=== PATIENT | male | born 1935 | race Caucasian/White ===

== ENCOUNTER → 2024-04-25 | Outpatient (CLI) | payer MEDICARE, BC, SELFPAY ==
[2024-04-25 15:20] LABS: Absolute Lymphocyte Count 0.82 X10^3/uL (0.83-4.51); Absolute Neutrophil Count 3.5 X10^3/uL (2.0-7.7); Basophil# 0.06 X10^3/uL; Basophil% 1.2 % (0-1); Eosinophil# 0.23 X10^3/uL; Eosinophils% 4.5 % (0-5); Hematocrit 45.6 % (40-54); Hemoglobin 14.4 g/dL (13.0-16.5); Lymphocyte # 0.82 X10^3/ul (0.83-4.51); Lymphocyte % 16.1 % (19-41); Mean Corp Hgb Conc 31.6 g/dL (32-36); Mean Corpuscular Hgb 29.9 pg (27.0-32.0); Mean Corpuscular Volume 94.8 fL (80-94); Mean Platelet Vol. 10.5 fl (6.2-12.0); Monocyte# 0.41 X10^3/uL; Monocyte% 8.1 % (0-10); NRBC Flagged by Analyzer 0 % (0-5); Neutrophil # 3.54 X10^3/uL (2.7-7.7); Neutrophil % 69.5 % (47-70); Platelet Count 161 K/mm3 (150-450); RBC Distribution Width CV 13.3 % (11.6-14.6); RBC Distribution Width SD 46.3 fl (35.1-43.9); Red Blood Count 4.81 M/mm3 (4.6-6.2); White Blood Count 5.1 K/mm3 (4.4-11.0)
[2024-04-25 15:54] LABS: Vitamin B12 327 pg/mL (211-911)
[2024-04-25 16:12] LABS: AST(SGOT) 21 U/L (15-37); Alanine Aminotransfer ALT/SGPT 20 U/L (16-61); Albumin, Serum 3.5 g/dL (3.2-5.0); Alkaline Phosphatase 108 U/L (45-117); Anion Gap 5 (5-15); BUN 19 mg/dL (7-18); BUN/Creat Ratio 15.1 RATIO (10-20); Calcium,Total 9.7 mg/dL (8.5-10.1); Chloride 105 mmol/L (98-107); Cholesterol 216 mg/dL (200); Creatinine, Serum 1.26 mg/dL (0.70-1.30); EST Glomerular Filtration Rate 58 mL/min (>60); Est Glom Filt Rate - Afr Amer 70 mL/min (>60); Globulin 3.5 g/dL (2.2-4.2); Glucose 117 mg/dL (74-106); High Density Lipoprotein 74 mg/dL; Sodium Level 137 mmol/L (136-145); T4 Free Direct 0.64 ng/dL (0.76-1.46); Triglycerides 196 mg/dL; Very Low Density Lipoprotein 39 mg/dL (5-40)
== END | disposition home or self-care (01) ==
PROVIDERS: PCP Family Medicine; Visit Provider Family Medicine
DX: R41.3 Other amnesia (principal); E78.5 Hyperlipidemia, unspecified; E03.9 Hypothyroidism, unspecified; R73.09 Other abnormal glucose
CPT/HCPCS: 36415; 80053; 80061; 82607; 83036; 84439; 84443; 85025

== ENCOUNTER → 2024-05-01 | Outpatient (CLI) | payer MEDICARE, BC, SELFPAY ==
--- NOTE | 2024-05-01 12:01 | US_ITS ---
STUDY: THYROID ULTRASOUND REASON FOR EXAM: Male, 88 years old. Thyroid nodule. TECHNIQUE: Ultrasound evaluation of the thyroid was performed with real-time and static catherine-scale imaging. COMPARISON: None. FINDINGS: RIGHT LOBE: The right lobe of the thyroid gland measures 3.5 cm x 1.1 cm x 1.7 cm. There is a heterogeneous echotexture. There are no demonstrated solid, cystic or complex lesions. LEFT LOBE: The left lobe of the thyroid gland measures 3.2 cm x 1.5 cm x 1.6 cm. There is a heterogeneous echotexture. There is a 9 mm x 9 mm x 7 mm hypoechoic solid nodule in the midportion of the left lobe. Follow-up recommended in 12 months. ISTHMUS: The isthmus measures 2 mm. The regional lymph nodes are normal. US/Thyroid IMPRESSION: 9 mm x 9 mm x 7 mm hypoechoic solid nodule in the midportion of the left lobe of the thyroid. 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 12 month follow-up is recommended. Electronically Signed: Serafin Xiong MD at 11:47 EDT ,
== END | disposition home or self-care (01) ==
PROVIDERS: PCP Family Medicine; Referring Provider Family Medicine; Visit Provider Family Medicine
DX: E04.1 Nontoxic single thyroid nodule (principal)
CPT/HCPCS: 76536

== ENCOUNTER → 2024-05-29 | Outpatient (CLI) | payer MEDICARE, BC, SELFPAY ==
[2024-05-29 15:02] LABS: Absolute Lymphocyte Count 0.87 X10^3/uL (0.83-4.51); Absolute Neutrophil Count 3.7 X10^3/uL (2.0-7.7); Basophil# 0.04 X10^3/uL; Basophil% 0.7 % (0-1); Eosinophil# 0.15 X10^3/uL; Eosinophils% 2.8 % (0-5); Hematocrit 46.8 % (40-54); Hemoglobin 14.8 g/dL (13.0-16.5); Lymphocyte # 0.87 X10^3/ul (0.83-4.51); Lymphocyte % 16.3 % (19-41); Mean Corp Hgb Conc 31.6 g/dL (32-36); Mean Corpuscular Hgb 29.6 pg (27.0-32.0); Mean Corpuscular Volume 93.6 fL (80-94); Mean Platelet Vol. 10.3 fl (6.2-12.0); Monocyte# 0.52 X10^3/uL; Monocyte% 9.7 % (0-10); NRBC Flagged by Analyzer 0 % (0-5); Neutrophil # 3.74 X10^3/uL (2.7-7.7); Neutrophil % 69.9 % (47-70); Platelet Count 141 K/mm3 (150-450); RBC Distribution Width CV 13.2 % (11.6-14.6); RBC Distribution Width SD 45.2 fl (35.1-43.9); White Blood Count 5.4 K/mm3 (4.4-11.0)
[2024-05-29 16:06] LABS: ALB/GLOB Ratio 1.1 RATIO (0.9-2.4); AST(SGOT) 22 U/L (15-37); Alanine Aminotransfer ALT/SGPT 20 U/L (16-61); Albumin, Serum 3.9 g/dL (3.2-5.0); Alkaline Phosphatase 117 U/L (45-117); Anion Gap 4 (5-15); BUN 22 mg/dL (7-18); BUN/Creat Ratio 16.3 RATIO (10-20); Calcium,Total 9.6 mg/dL (8.5-10.1); Chloride 105 mmol/L (98-107); Cholesterol 162 mg/dL (200); Creatinine, Serum 1.35 mg/dL (0.70-1.30); EST Glomerular Filtration Rate 53 mL/min (>60); Est Glom Filt Rate - Afr Amer 64 mL/min (>60); Globulin 3.5 g/dL (2.2-4.2); Glucose 113 mg/dL (74-106); High Density Lipoprotein 81 mg/dL; Potassium 4.2 mmol/L (3.5-5.1); Protein, Total 7.4 g/dL (6.4-8.2); Sodium Level 138 mmol/L (136-145); T4 Free Direct 1.83 ng/dL (0.76-1.46); Thyroid Stim Hormone (TSH) 0.082 uIU/mL (0.358-3.740); Triglycerides 68 mg/dL; Very Low Density Lipoprotein 14 mg/dL (5-40)
[2024-05-29 17:38] LABS: Vitamin B12 271 pg/mL (211-911)
== END | disposition home or self-care (01) ==
LOC: MFPLAB 11:43
PROVIDERS: PCP Family Medicine; Visit Provider Family Medicine
DX: E78.5 Hyperlipidemia, unspecified (principal); R41.3 Other amnesia; E03.9 Hypothyroidism, unspecified
CPT/HCPCS: 36415; 80053; 80061; 82607; 84439; 84443; 85025

== ENCOUNTER → 2024-07-03 | Outpatient (CLI) | payer MEDICARE, BC, SELFPAY ==
[2024-07-03 15:45] LABS: T4 Free Direct 2.48 ng/dL (0.76-1.46)
== END | disposition home or self-care (01) ==
LOC: MFPLAB 12:02
PROVIDERS: PCP Family Medicine; Referring Provider Family Medicine; Visit Provider Family Medicine
DX: E03.9 Hypothyroidism, unspecified (principal)
CPT/HCPCS: 36415; 84439

== ENCOUNTER → 2024-07-22 | Outpatient (CLI) | payer MEDICARE, BC, SELFPAY ==
[2024-07-22 15:11] LABS: T4 Free Direct 1.23 ng/dL (0.76-1.46)
== END | disposition home or self-care (01) ==
LOC: MFPLAB 11:22
PROVIDERS: PCP Family Medicine; Referring Provider Family Medicine; Visit Provider Family Medicine
DX: E03.9 Hypothyroidism, unspecified (principal)
CPT/HCPCS: 36415; 84439

== ENCOUNTER 2024-09-16 12:22 | Observation (INO) | payer MEDICARE, BC, SELFPAY ==
[2024-09-16] VITALS (8 sets, daily range): BP systolic 140–155; BP diastolic 68–95; PULSE 60–93; RESP 14–19; TEMP 36.5–37; O2SAT 97–99; BMI 25.0; BMI 23.4
--- NOTE | 2024-09-16 12:38 | CT_ITS ---
PROCEDURE: COMPUTED TOMOGRAPHY OF THE LUMBAR SPINE REASON FOR EXAM: PATIENT FELL. BACK PAIN TECHNIQUE: Contiguous axial scans of 2.5 mm slice thicknesses. Sagittal and coronal reconstruction images were obtained. One or more dose reduction techniques were used (e.g., automated exposure control, adjustment of mA and/or kv according to patient size, use of iterative reconstruction technique). CONTRAST: NOT GIVEN. COMPARISON: None. FINDINGS: Vertebrae: Normal lumbar vertebral body heights. No evidence of fracture. No spondylolysis. Multilevel spondylosis. Discs: Severe disc space narrowing at L5-S1. Mild disc space narrowing at L4-L5. Alignment: No spondylolysis or spondylolisthesis. No scoliosis. Stenosis: Moderate to severe central canal narrowing at L2-L3 and L3-L4. Mild central canal narrowing at L4-L5. Foramina: Severe foraminal narrowing bilaterally at L2-L3 and L3-L4. Facets: Multilevel facet arthropathy, moderate to severe. Sacroiliac joints: Maintained. Soft tissues: Paravertebral soft tissues are unremarkable. Vascular: Severe atherosclerotic calcific disease. Mild fusiform dilatation of the lower abdominal aorta measuring 3.[address]/Spine Lumbar without Contrast IMPRESSION: 1. Mild to severe central canal narrowing at L2 through L5. 2. Severe foraminal narrowing, L2 through L4. 3. Multilevel spondylosis. 4. Mild fusiform dilatation, lower abdominal aorta. 5. No acute osseous abnormalities. Reading Location: [place] [id number]
--- NOTE | 2024-09-16 12:38 | CT_ITS ---
TECHNIQUE: Contiguous axial scans of 3.75 mm slice thicknesses. Sagittal and coronal reconstruction images were obtained. One or more dose reduction techniques were used (e.g., automated exposure control, adjustment of mA and/or kv according to patient size, use of iterative reconstruction technique). FINDINGS: Cerebrum: No intraparenchymal hemorrhage. No abnormal areas of encephalomalacia. No mass effect or midline shift. Central white matter and subcortical diffuse hypoattenuation. Ventricles and cisterns: Appropriate size for patient's age. Age-appropriate senescent change. Extra-axial fluid: Unremarkable. Posterior fossa: Unremarkable cerebellum. No abnormalities involving the brainstem. Paranasal sinuses: Normal. Vasculature: Atherosclerotic calcific disease involving the carotids and vertebrobasilar arteries. Mastoid air cells: Normal. Calvarium: Unremarkable. Soft tissues: Unremarkable. CT/Brain/Head without Contrast IMPRESSION: 1. 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 2. No acute intra cerebral hemorrhage or infarcts. 3. Age-appropriate senescent change. [facility]
--- NOTE | 2024-09-16 12:38 | CT_ITS ---
PROCEDURE: CT CERVICAL SPINE WITHOUT CONTRAST REASON FOR EXAM: PATIENT FELL YESTERDAY. LEFT PUPIL GREATER THAN RIGHT TECHNIQUE: Contiguous axial scans of 1.25 mm slice thicknesses. Sagittal and coronal reconstruction images were obtained. One or more dose reduction techniques were used (e.g., automated exposure control, adjustment of mA and/or kv according to patient size, use of iterative reconstruction technique). COMPARISON: No relevant prior. FINDINGS: Alignment: Normal C1-C2: Normal alignment. Degenerative arthritic changes. Vertebrae: Vertebral bodies normal in height. Multilevel spondylosis. Discs: Multilevel degenerative disc disease, most severe at C5 through T2. Foramina: No foraminal narrowing. Facets: Multilevel facet arthropathy of the C3 through C5 levels. Spinal stenosis: Not present. Posterior elements: Intact. Soft Tissues: Unremarkable Other Atherosclerotic calcific disease of the aorta. CT/Spine Cervical without Contras IMPRESSION: 1. No acute osseous findings involving the cervical spine. 2. Multilevel degenerative disc disease and spondylosis. Reading Location: [place] [address]
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
--- NOTE | 2024-09-16 12:50 | EKG12_ITS ---
Test Reason : PALP Blood Pressure : */* mmHG Vent. Rate : 84 BPM Atrial Rate : 84 BPM P-R Int : 166 ms QRS Dur : 78 ms QT Int : 370 ms P-R-T Axes : 70 12 74 degrees QTcB Int : 437 ms Normal sinus rhythm Normal ECG Confirmed by Roel Art ([id number]), publications editor TARA CARDONA ([id number]) on 09/17/2024 8:23:13 AM Referred By: Confirmed By: Roel Art
--- NOTE | 2024-09-16 13:05 | RAD_ITS ---
PROCEDURE: CHEST 1 VIEW (PORTABLE) REASON FOR EXAM: Patient fell. TECHNIQUE: Frontal view of the chest. COMPARISON: Yesterday FINDINGS: Lungs are clear of pneumonia and congestion. Old healed granulomatous changes. No pleural effusions, thickening, or pneumothorax. Heart and mediastinum are normal. Atherosclerotic and tortuous aorta. No hilar masses. Bones and soft tissues are unremarkable. RAD/Chest 1 View (Portable) IMPRESSION: No active cardiopulmonary disease. Reading Location: [place] [address]
[2024-09-16 13:24] LABS: Absolute Lymphocyte Count 0.58 X10^3/uL (0.83-4.51); Absolute Neutrophil Count 3.8 X10^3/uL (2.0-7.7); Basophil# 0.02 X10^3/uL; Basophil% 0.4 % (0-1); Eosinophil# 0.06 X10^3/uL; Eosinophils% 1.2 % (0-5); Hematocrit 46.8 % (40-54); Hemoglobin 15.4 g/dL (13.0-16.5); Lymphocyte # 0.58 X10^3/ul (0.83-4.51); Mean Corp Hgb Conc 32.9 g/dL (32-36); Mean Corpuscular Hgb 30.4 pg (27.0-32.0); Mean Corpuscular Volume 92.3 fL (80-94); Mean Platelet Vol. 9.8 fl (6.2-12.0); Monocyte% 8.2 % (0-10); NRBC Flagged by Analyzer 0 % (0-5); Neutrophil # 3.76 X10^3/uL (2.7-7.7); Neutrophil % 77.6 % (47-70); POSITIVE DIFFERENTIAL YES; Platelet Count 155 K/mm3 (150-450); RBC Distribution Width CV 13.2 % (11.6-14.6); RBC Distribution Width SD 45.1 fl (35.1-43.9); Red Blood Count 5.07 M/mm3 (4.6-6.2); White Blood Count 4.9 K/mm3 (4.4-11.0)
[2024-09-16 13:37] LABS: ALB/GLOB Ratio 1.3 RATIO (0.9-2.4); AST(SGOT) 27 U/L (<=37); Alanine Aminotransfer ALT/SGPT 12 U/L (<=46); Albumin, Serum 4.1 g/dL (3.4-4.8); Alkaline Phosphatase 115 U/L (40-129); Anion Gap 10 (5-15); BUN 16 mg/dL (4-19); BUN/Creat Ratio 12.2 RATIO (10-20); Calcium 10.2 mg/dL (7.6-11.0); Carbon Dioxide 27.4 mmol/L (22.0-29.0); Chloride 99 mmol/L (96-108); Creatinine, Serum 1.3 mg/dL (0.8-1.3); EST Glomerular Filtration Rate 54 (>60); Globulin 3.1 g/dL (2.2-4.2); Glucose 138 mg/dL (70-99); Potassium 4.4 mmol/L (3.3-5.1); Protein, Total 7.1 g/dL (5.9-8.4); Sodium Level 136 mmol/L (133-145); Total Bilirubin 0.79 mg/dL (0.00-1.30)
[2024-09-16 14:00] LABS: Bacteria 0 SEEN /hpf (None Seen); Mucous, Urine 0 SEEN /hpf (<or=2+); Squamous Epithelial Cells - UA 0 SEEN /hpf (0-5); White Blood Cells 0 SEEN /hpf (0-5)
[2024-09-16 14:07] LABS: Color, Urine Yellow (Yellow); Glucose, Dipstick Normal (Normal); Ketone-Dipstick 5 mg/dl (Negative); Leukocyte Esterase-Dipstick Negative /ul (Negative); Nitrite-Dipstick Negative (Negative); Occult Blood-Urine Negative /ul (Negative); Protein-Dipstick 15 mg/dl (Negative); Urine Bilirubin Dipstick Negative (Negative); Urine Clarity Clear (Clear); Urine Urobilinogen Normal (Normal); Urine pH 6.5 (5.0 - 8.0)
[2024-09-16 14:10] LABS: Troponin T High Sensitivity 62 ng/L (<=22)
--- NOTE | 2024-09-16 14:12 | ED.RN ---
Dr Capone notified of critical troponin level.
[2024-09-16 14:13] LABS: Red Blood Cells-Urine 0 SEEN /hpf (0-5)
[2024-09-16 16:35] LABS: Troponin T High Sensitivity 57 ng/L (<=22)
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
--- NOTE | 2024-09-16 19:12 | HP.PCM.HOS_ITS ---
HPI - General General Date of Admission: 09/16/24 Date of Service: 09/16/24 Chief Complaint: Worsening Confusion, Agitation and Recent Fall. HPI Narrative GANESH FLORES, is a 88 M with a past medical history of chronic dementia, hypothyroidism; on levothyroxine and OA who presents to [facility] ER complaining of fall yesterday in the bathtub with patient hitting the back of his head with no LOC or headache. EMS was activated but patient refused transport. His daughter informed the ER provider his dementia has recently worsened with agitation and potentially violent behaviors causing her to have to call the police twice recently. Earlier today he had an appointment with his PCP who referred him to the ER for further evaluation and management as his daughter can no longer safely care for him at home. There was no report of fever, chills, nausea, vomiting, abdominal pain, chest pain, SOB or headache. In the ER he was diagnosed with and Acute Worsening of his Severe Chronic Dementia with Agitation complicated by recent Fall with and incidentally noted slightly elevated troponin of 57 pg/mL present on admission - but with no signs of ACS - and he was then admitted to the general medical floor with telemetric monitoring for a stay that is expected to be less than 2 midnights. [facility] Medical History (Updated 09/17/24 @ 03:[address] Altaf Meeks DO) Hypothyroidism Home Medications ?Medication ?Instructions ?Recorded ?Last Taken ?Type levothyroxine 137 mcg tablet 137 mcg PO DAILY 09/16/24 Unknown History Allergy/AdvReac Type Severity Reaction Status Date / Time shellfish derived Allergy unknown Verified 09/16/24 12:27 Social History Smoking Status: Never smoker ROS ROS Narrative Full ROS was not possible due to patient's dementia. Vital Signs Vital Signs Vital Signs: 09/16/24 12:23 09/16/24 13:09 09/16/24 14:23 Temperature 98.6 F Temperature Source Oral Pulse Rate 93 60 Respiratory Rate 16 18 Respiratory Effort Normal Blood Pressure 155/95 H 141/84 H Blood Pressure Mean 115 103 Pulse Ox 99 97 Oxygen Delivery Method Room Air Room Air Room Air 09/16/24 16:00 09/16/24 18:00 Temperature Temperature Source Pulse Rate 71 71 Respiratory Rate 16 14 Respiratory Effort Blood Pressure 141/84 H 140/68 H Blood Pressure Mean 103 92 Pulse Ox 98 98 Oxygen Delivery Method Room Air Room Air Weight Weight: 200 lb Body Mass Index (BMI) 25.0 Physical Exam Const alert, no apparent distress and average body habitus General Appearance: cooperative Orientation / Consciousness: confused and disoriented HEENT normocephalic, head/scalp atraumatic and moist oral mucous membranes HEENT Narrative: Patient very [place]. Eyes PERRL, EOMs intact bilaterally and conjunctivae normal Neck no lymphadenopathy, supple and no JVD Resp normal respiratory effort, no retractions, no use of accessory muscles and clear to auscultation bilaterally Cardio regular rate and regular rhythm GI normal to inspection, nondistended, normoactive bowel sounds, soft to palpation, non-tender and non-distended Extremity normal to inspection, full ROM and no clubbing, cyanosis or edema Skin Skin Narrative: Patient has no evidence of rash, wounds, abscess or jaundice. Neuro CN's II-XII intact bilaterally, moves all extremities and no focal motor deficits Sensorium / Orientation: awake, alert and oriented to person Speech: speech normal Psych affect normal Results Medical Records Data Attestation: I reviewed the patient's medical records Lab / Micro Data Attestation: I reviewed the patient's lab results. 09/16/24 13:05 09/16/24 13:05 Labs: Laboratory Results - last 24 hr 09/16/24 13:05: WBC 4.9, RBC 5.07, Hgb 15.4, Hct 46.8, MCV 92.3, MCH 30.4, MCHC 32.9, RDW Std Deviation 45.1 H, RDW Coeff of [place] 13.2, Plt Count 155, MPV 9.8, Immature Gran % (Auto) 0.600, Neut % (Auto) 77.6 H, Lymph % (Auto) 12.0 L, Terrell % (Auto) 8.2, Eos % (Auto) 1.2, Baso % (Auto) 0.4, Absolute Neuts (auto) 3.8, A bsolute Lymphs (auto) 0.58 L, Nucleated RBC % 0, Sodium 136, Potassium 4.4, Anion Gap 10, BUN 16, Creatinine 1.3, Est GFR (MDRD) Non-Af 54 L, BUN/Creatinine Ratio 12.2, Glucose 138 H, Calcium 10.2, Total Bilirubin 0.79, AST 27, ALT 12, Alkaline Phosphatase 115, Troponin T High Sens 62 H*, Total Protein 7.1, Albumin 4.1, Globulin 3.1, Albumin/Globulin Ratio 1.3 09/16/24 13:50: Urine Color Yellow, Urine Clarity Clear, Urine pH 6.5, Ur Specific [place] 1.010, Urine Protein 15 H, Urine Glucose (UA) Normal, Urine Ketones 5 H, Urine Occult Blood Negative, Urine Nitrite Negative, Urine Bilirubin Negative, Urine Urobilinogen Normal, Ur Leukocyte Esterase Negative, Urine RBC 0 SEEN, Urine WBC 0 SEEN, Ur Squamous Epith Cells 0 SEEN, Urine Bacteria 0 SEEN, Urine Mucus 0 SEEN 09/16/24 15:23: Troponin T High Sens 57 H* D Imaging Radiology Impression Brain CT 09/16/24 12:38 IMPRESSION: 1. 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 2. No acute intra cerebral hemorrhage or infarcts. 3. Age-appropriate senescent change. Reading Location: [facility] 09/16/24 12:38 IMPRESSION: 1. No acute osseous findings involving the cervical spine. 2. Multilevel degenerative disc disease and spondylosis. Reading Location: [facility] 09/16/24 12:38 IMPRESSION: 1. Mild to severe central canal narrowing at L2 through L5. 2. Severe foraminal narrowing, L2 through L4. 3. Multilevel spondylosis. 4. Mild fusiform dilatation, lower abdominal aorta. 5. No acute osseous abnormalities. Reading Location: [facility] Chest X-Ray 09/16/24 13:05 IMPRESSION: No active cardiopulmonary disease. Reading Location: [facility] Assessment & Plan Assessment/Plan (1) Dementia: QUALIFIERS: Dementia behavioral or psychological symptom: with agitation Dementia severity: severe Dementia type: unspecified type Qualified Code(s): F03.C11 - Unspecified dementia, severe, with agitation (2) Agitation due to dementia: (3) Fall: QUALIFIERS: Encounter type: sequela Qualified Code(s): W19.XXXS - Unspecified fall, sequela (4) Closed head injury: QUALIFIERS: Encounter type: sequela Qualified Code(s): S09.90XS - Unspecified injury of head, sequela (5) Hypothyroidism: QUALIFIERS: Hypothyroidism type: unspecified Qualified Code(s): E 03.9 - Hypothyroidism, unspecified PLAN: Plan 1. Acute Worsening of his Severe Chronic Dementia with Agitation and patient's daughter no longer able to manage him at home with recent fall and closed head injury in addition to 2 police visits to their home for agitation - Admit to general medical floor under observation status. Check TSH, Folate, B12, UA and UDS to evaluate for potentially reversible causes of confusion. We will minimize SUSTAINABILITY MANAGER-active medications in an effort to allow his sensorium to clear. Finally, we will consult PT/OT and Case Management to facilitate transfer to facility where he can be managed more effectively with help appreciated in advance. 2. Slightly elevated troponin-T 62 ng/L present on admission complicating #1 - Second check showed decrease to 57 ng/L with no signs of chest pain. Give ECASA and monitor in case symptoms develop. 3. Hypothyroidism; on levothyroxine - Resume levothyroxine and check TSH. 4. OA - Stable. Give acetaminophen prn pain or fever. 5. DVT prophylaxis - Lovenox 40 mg sq daily plus SCD's. Total time: Approximately (but not less than) 45 minutes. Charges/Coding Visit Charges OBSV E&M: 37575 Observ/hosp same date L1
[2024-09-16] MEDS: 0.9% Saline Lock 10 ML Syringe IV (21:30)
[2024-09-16] MEDS: 0.9% Normal Saline (1000mL) 1,000 ML 70 ML IV (21:30)
[2024-09-16] MEDS: Aspirin 325 MG Tablet PO (22:23)
[2024-09-16] MEDS: MELATONIN 3 MG TABLET PO (22:50)
[2024-09-16] MEDS: Acetaminophen 325 MG Tablet 650 MG PO (22:50)
[2024-09-17] VITALS (10 sets, daily range): BP systolic 117–151; BP diastolic 69–111; PULSE 54–91; RESP 16–18; TEMP 36.3–36.7; O2SAT 96–100; BMI 23.5
[2024-09-17 00:46] LABS: Folates, Serum 8.53 ng/mL (4.60-34.80); Magnesium 2.2 mg/dL (1.5-2.2)
[2024-09-17 00:55] LABS: Troponin T High Sensitivity 76 ng/L (<=22)
[2024-09-17 03:03] LABS: TROPONIN VARIANCE 2 HR 1
[2024-09-17] MEDS: Levothyroxine 137 MCG Tablet PO (04:44)
--- NOTE | 2024-09-17 06:41 | ECHOD_ITS ---
Reason For Study Reason For Study: Other Procedure This was a 2D Doppler, Color Flow transthoracic echocardiogram. Exam performed portable in patient room. Left Ventricle Normal LV size. The estimated ejection fraction is 60 %. No evidence for diastolic dysfunction. No regional wall motion abnormalities noted. Right Ventricle Normal RV size. Normal systolic function. Atria The left and right atria are normal. No doppler evidence for ASD. Mitral Valve There is severe mitral annular calcification. There is no mitral valve stenosis. Trivial mitral valve insufficiency. Tricuspid Valve There is no tricuspid stenosis. Trivial tricuspid valve insufficiency. Pulmonary artery systolic pressure is 40 mmHg. Aortic Valve Trisinus/trileaflet aortic valve. Mild diffuse aortic valve thickening. Mild aortic stenosis. No aortic valve insufficiency. Pulmonic Valve There is no pulmonic valvular stenosis. No pulmonic valve insufficiency. Great Vessels Normal sized aortic root. Pericardium/Pleural No pericardial effusion. MMode/2D Measurements & Calculations LVIDd: 4.4 cm IVSd: 1.2 cm LVOT diam: 2.1 cm LVIDs: 3.3 cm LVPWd: 1.1 cm LVOT area: 3.4 cm2 RVDd: 3.7 cm FS: 25.6 % LAV(MOD-bp): 59.8 ml LA A4 area: 20.3 cm2 LA dimension(2D): 3.8 cm LAV(MOD-bp) Indexed: 27.8 ml/m2 LAV(MOD-sp2): 55.6 ml LAV(MOD-sp4): 49.8 ml TAPSE: 2.0 cm RA A4 area: 16.4 cm2 Time Measurements MV dec time: 0.32 sec Doppler Measurements & Calculations MV E max madi: 79.9 cm/sec Lat Peak E' Madi: 7.1 cm/sec Med Peak E' Madi: 6.2 cm/sec MV A max madi: 143.0 cm/sec E/E' lat: 11.3 E/E' med: 12.8 MV E/A: 0.56 MV V2 max: 170.8 cm/sec MV P1/2t max madi: 96.1 cm/sec Ao V2 max: 241.2 cm/sec MV max P.7 mmHg MV P1/2t: 120.2 msec Ao max P.3 mmHg MV V2 mean: 78.9 cm/sec MV dec slope: 234.2 cm/sec2 Ao V2 mean: 163.8 cm/sec MV mean P.1 mmHg Ao mean P.3 mmHg MV V2 VTI: 41.5 cm MVA(P1/2t): 1.8 cm2 Ao V2 VTI: 51.6 cm MVA(VTI): 1.8 cm2 AV (velocity ratio): 0.43 YESSENIA(I,D): 1.5 cm2 YESSENIA(V,D): 1.6 cm2 LV V1 max: 113.3 cm/sec SV(LVOT): 76.6 ml TR max madi: 299.4 cm/sec LV V1 max P.1 mmHg TR max P.9 mmHg LV V1 mean P.2 mmHg LV V1 mean: 68.1 cm/sec LV V1 VTI: 22.3 cm ECHO/Echo Complete Interpretation Summary The estimated ejection fraction is 60 %. No evidence for diastolic dysfunction. Mild aortic stenosis. Trivial mitral valve insufficiency. Ordering Physician: Altaf Meeks Performed By: Vinay Garcia RCS
--- NOTE | 2024-09-17 06:44 | EKG12_ITS ---
Test Reason : HIGH TROP Blood Pressure : */* mmHG Vent. Rate : 55 BPM Atrial Rate : 55 BPM P-R Int : 172 ms QRS Dur : 76 ms QT Int : 408 ms P-R-T Axes : 60 4 56 degrees QTcB Int : 390 ms Sinus bradycardia with sinus arrhythmia Otherwise normal ECG When compared with ECG of 16-Sep-2024 13:00, Vent. rate has decreased by 29 bpm Confirmed by Roel Art ([id number]), design editor MILES BROCK ([id number]) on 09/19/2024 5:59:25 AM Referred By: TOMY Confirmed By: Roel Art
[2024-09-17 07:44] LABS: Absolute Lymphocyte Count 0.66 X10^3/uL (0.83-4.51); Absolute Neutrophil Count 2.3 X10^3/uL (2.0-7.7); Basophil# 0.05 X10^3/uL; Basophil% 1.4 % (0-1); Eosinophil# 0.11 X10^3/uL; Eosinophils% 3.1 % (0-5); Hematocrit 43.4 % (40-54); Hemoglobin 14.3 g/dL (13.0-16.5); Lymphocyte # 0.66 X10^3/ul (0.83-4.51); Lymphocyte % 18.4 % (19-41); Mean Corp Hgb Conc 32.9 g/dL (32-36); Mean Corpuscular Hgb 30.9 pg (27.0-32.0); Mean Corpuscular Volume 93.7 fL (80-94); Mean Platelet Vol. 10.3 fl (6.2-12.0); Monocyte# 0.44 X10^3/uL; Monocyte% 12.3 % (0-10); NRBC Flagged by Analyzer 0 % (0-5); Neutrophil # 2.29 X10^3/uL (2.7-7.7); Platelet Count 140 K/mm3 (150-450); RBC Distribution Width CV 13.4 % (11.6-14.6); RBC Distribution Width SD 45.7 fl (35.1-43.9); Red Blood Count 4.63 M/mm3 (4.6-6.2); White Blood Count 3.6 K/mm3 (4.4-11.0)
[2024-09-17] MEDS: Enoxaparin 40 MG/0.4 ML Syringe SC (08:36)
[2024-09-17] MEDS: Aspirin 81 MG TAB.CHEW PO (08:37)
[2024-09-17] MEDS: Ensure Plus High Protein 120 ML LIQUID PO ×2 (08:37→12:10)
[2024-09-17 09:19] LABS: TROPONIN VARIANCE 4 HR 7
--- NOTE | 2024-09-17 09:34 | CASEMGMT ---
Addendum entered by Chantel Byrne 09/17/24 14:58: SW followed up with dtr to discuss alternate placements. Pt dtr selected [facility] and [facility] as preferences. DCA notified of referral request. Plan: SNF memory care unit; private pay MORRIS Reno Addendum entered by Chantel Byrne 09/17/24 13:32: [facility] unable to accept referral. HEATHER met with pt dtr who selected [facility]. That facility is also full and unable to accept referral. SW to follow up with pt dtr. MORRIS Reno Original Note: Social Work- Pt dtr called in to speak with SW. Pt dtr questioned if documentation had been sent to [facility] and what she needed to do as far as paperwork. Pt dtr reports she thought pt would be at [facility] for a couple of days to give her time to set everything up; SW offered to follow up after physician rounds, but reported that when pt is medically stable and facility is able to accept, pt will discharge. Pt dtr will be in to visit shortly and requests updates on pt eating and mentation at that time. HEATHER advised [facility]. HEATHER notified DCA of referral request. HEATHER remains available to follow. Plan: [facility]; memory care unit, intermediate level of care, private pay MORRIS Reno
--- NOTE | 2024-09-17 09:44 | CASEMGMT ---
Addendum entered by Rosalia Medina 09/17/24 10:57: [facility] has declined. SW updated. Rosalia Medina DC Planning Asst. Original Note: Discharge Planning Referral sent to [facility]. Rosalia Medina DC Planning Asst.
--- NOTE | 2024-09-17 14:27 | WOUNDNOTE ---
wound photo: left lateral foot
--- NOTE | 2024-09-17 14:28 | WOUNDNOTE ---
wound photo: right lateral foot
[2024-09-17 14:36] LABS: ALB/GLOB Ratio 1.5 RATIO (0.9-2.4); AST(SGOT) 25 U/L (<=37); Alanine Aminotransfer ALT/SGPT 11 U/L (<=46); Albumin, Serum 3.7 g/dL (3.4-4.8); Alkaline Phosphatase 95 U/L (40-129); Anion Gap 12 (5-15); BUN 15 mg/dL (4-19); BUN/Creat Ratio 11.6 RATIO (10-20); Calcium 9.5 mg/dL (7.6-11.0); Carbon Dioxide 24.2 mmol/L (22.0-29.0); Chloride 102 mmol/L (96-108); Cholesterol 215 mg/dL (<=200); Creatinine, Serum 1.3 mg/dL (0.8-1.3); EST Glomerular Filtration Rate 54 (>60); Estimated Creatinine Clearance 47.85 ml/min; Globulin 2.4 g/dL (2.2-4.2); Glucose 93 mg/dL (70-99); High Density Lipoprotein 66 mg/dL; Low Density Lipoprotein Calc. 134 mg/dL; Phosphorus 2.9 mg/dL (2.7-4.5); Potassium 4.1 mmol/L (3.3-5.1); Protein, Total 6.1 g/dL (5.9-8.4); Sodium Level 138 mmol/L (133-145); Total Bilirubin 0.66 mg/dL (0.00-1.30); Triglycerides 76 mg/dL; Very Low Density Lipoprotein 15 mg/dL (5-40); cholesterol:hdl ratio screen 3.24
--- NOTE | 2024-09-17 14:54 | WOUNDNOTE ---
was asked to see patient for wound to the left foot. patient has callouses to the left and right lateral foot. both areas are dry. no erythema noted. will monitor, but no need for wound care at this time.
--- NOTE | 2024-09-17 15:12 | CASEMGMT ---
Addendum entered by Rosalia Medina 09/17/24 15:57: [facility] has declined. Rosalia Medina DC Planning Asst. Addendum entered by Rosalia Medina 09/17/24 15:31: [facility] declined d/t no available beds. Rosalia Medina DC Planning Asst. Original Note: Discharge Planning Referral sent to [facility] and [facility]. Referral also sent to [facility] for consideration on wait-list. Rosalia Medina DC Planning Asst.
--- NOTE | 2024-09-17 15:23 | CASEMGMT ---
OATES VM left for pts daughter, Sade Pena, to review OATES form. Rosalia Medina DC Planning Asst.
--- NOTE | 2024-09-17 15:53 | CASEMGMT ---
Spoke with pts daughterSade, complete OATES form. OATES form explained to daughter who voiced understanding. Original form placed in pt?s chart and copy provided to patient. Rosalia Medina, Discharge Planning Asst
--- NOTE | 2024-09-17 16:02 | PN.HOSP_ITS ---
Reason for Visit Reason for Visit: Diagnoses Hypothyroidism, unspecified (09/16/24) Unspecified dementia, unspecified severity, with agitation (09/16/24) Unspecified dementia, severe, with agitation (09/16/24) Other specified abnormal findings of blood chemistry (09/16/24) Unspecified injury of head, sequela (09/16/24) Unspecified fall, sequela (09/16/24) Subjective Subjective Patient was seen and examined today, he is concerned about his urine output, patient's chemistry profile is unremarkable however. Objective Data Objective Data Vital Signs: Vital Signs Temp Pulse Resp BP Pulse Ox O2 Del Method 97.7 F L 70 16 117/69 97 Room Air 09/17/24 12:06 09/17/24 15:29 09/17/24 12:06 09/17/24 12:06 09/17/24 12:06 09/17/24 12:06 Oxygen Delivery Method Room Air Weight: 85.8 kg Body Mass Index (BMI) 23.5 Intake & Output: Intake and Output for Last 24 Hours 09/15/24 09/16/24 09/17/24 23:59 23:59 23:59 Intake Total 1400 / 1400 Output Total 275 / 275 Balance 1125 / 1125 Lab / Micro Data 09/17/24 06:30 09/17/24 06:30 Labs: Laboratory Results - last 24 hr 09/16/24 15:23: Troponin T High Sens 57 H* D 09/16/24 23:50: Magnesium 2.2, Troponin T High Sens 76 H* D, Folate 8.53, TSH 3.100 09/17/24 01:40: Delta Troponin T 1, Troponin T Hi Sens 2 Hr 77 H* 09/17/24 06:30: WBC 3.6 L, RBC 4.63, Hgb 14.3, Hct 43.4, MCV 93.7, MCH 30.9, MCHC 32.9, RDW Std Deviation 45.7 H, RDW Coeff of [place] 13.4, Plt Count 140 L, MPV 10.3, Immature Gran % (Auto) 0.800, Neut % (Auto) 64.0, Lymph % (Auto) 18.4 L, M lela % (Auto) 12.3 H, Eos % (Auto) 3.1, Baso % (Auto) 1.4 H, Absolute Neuts (auto) 2.3, Absolute Lymphs (auto) 0.66 L, Nucleated RBC % 0, Sodium 138, Potassium 4.1, Chloride Direct 102, Carbon Dioxide 24.2, Anion Gap 12, BUN 15, Creatinine 1.3, Estim Creat Clear Calc 47.85, Est GFR (MDRD) Non-Af 54 L, BUN/Creatinine Ratio 11.6, Glucose 93, Calcium 9.5, Phosphorus 2.9, Total Bilirubin 0.66, AST 25, ALT 11, Alkaline Phosphatase 95, Troponin T Hi Sens 4Hr 69 H*, Total Protein 6.1, Albumin 3.7, Globulin 2.4, Albumin/Globulin Ratio 1.5, Triglycerides 76, Cholesterol 215 H, VLDL Cholesterol 15, HDL Cholesterol 66, Cholesterol/HDL Ratio 3.24 Radiography Diagnostic Testing: Radiology Impression Echocardiogram 09/17/24 06:41 Interpretation Summary The estimated ejection fraction is 60 %. No evidence for diastolic dysfunction. Mild aortic stenosis. Trivial mitral valve insufficiency. Ordering Physician: Altaf Meeks Performed By: Vinay Garcia RCS Physical Exam Const alert, oriented x3 and no apparent distress Constitutional Narrative: Patient appears a stated age, he exhibits some confusion General Appearance: cooperative, well kempt and well developed Orientation / Consciousness: awake, oriented to person and oriented to place HEENT normocephalic, head/scalp atraumatic and moist oral mucous membranes Eyes PERRL, EOMs intact bilaterally and conjunctivae normal Neck supple, no JVD, thyroid normal and no carotid bruits General: trachea midline Resp normal respiratory effort and clear to auscultation bilaterally Auscultation: Negative for rales, rhonchi or wheezes Cardio regular rate, regular rhythm, no murmurs, no rub and no gallops GI normal to inspection, nondistended, normoactive bowel sounds, soft to palpation, non-tender and non-distended Extremity no clubbing, cyanosis or edema Skin no rashes or lesions noted General Skin Exam: no breakdown Neuro oriented x3, CN's II-XII intact bilaterally, no focal motor deficits and no sensory deficits noted Sensorium / Orientation: awake, alert, oriented to person, oriented to place and oriented to time Speech: speech normal Psych affect normal Assessment & Plan Assessment/Plan (1) Dementia: QUALIFIERS: Dementia type: unspecified type Dementia severity: s evere Dementia behavioral or psychological symptom: with agitation Qualified Code(s): F03.C11 - Unspecified dementia, severe, with agitation PLAN: Plan 1. Dementia with behavioral disturbances-patient appears to be alert and oriented x 3 today, we are waiting approval for placement in a skilled care facility for the patient. #2 hypothyroidism-patient is on Synthroid #3 generalized debility secondary to dementia and advanced age-again patient's daughter request that the patient go to an extended care facility for skilled services Total clinical time spent by myself addressing the patient's medical issues, reviewing all of his data, and collaborating with patient's care team: 35 minutes Charges/Coding Visit Charges Inpatient E&M: 75373 Subs Hosp L2
[2024-09-17] MEDS: Acetaminophen 325 MG Tablet 650 MG PO (18:29)
[2024-09-17 19:30] LABS: Hemoglobin A1c 6.1 % (<=5.6)
[2024-09-17] MEDS: 0.9% Saline Lock 10 ML Syringe IV (22:45)
[2024-09-18] VITALS (9 sets, daily range): BP systolic 108–164; BP diastolic 76–98; PULSE 60–80; RESP 16–18; TEMP 36.1–37.3; O2SAT 93–100; BMI 23.5
[2024-09-18] MEDS: Levothyroxine 137 MCG Tablet PO (05:43)
[2024-09-18] MEDS: Enoxaparin 40 MG/0.4 ML Syringe SC (08:06)
[2024-09-18] MEDS: Aspirin 81 MG TAB.CHEW PO (08:06)
[2024-09-18] MEDS: Ensure Plus High Protein 120 ML LIQUID PO ×3 (08:06→17:03)
--- NOTE | 2024-09-18 08:29 | CASEMGMT ---
Discharge Planning [facility] has accepted pt for wait list for memory care unit and will follow up with his daughter. SW updated. Rosalia Medina DC Planning Asst.
[2024-09-18 10:37] LABS: Phosphorus 2.7 mg/dL (2.7-4.5)
--- NOTE | 2024-09-18 10:40 | CASEMGMT ---
Social Work SW received call from pt's dgt and SW informed that all requested facilities are unable to accept pt. Dgt now requesting referral to [facility]. Both facilities have a memory care unit and pt is able to pay privately. DC ex assistant/program director notified and to make referrals. MORRIS Burden
--- NOTE | 2024-09-18 13:00 | CASEMGMT ---
Discharge Planning Calls placed to [facility] currently does not have any availability on their memory care unit but [facility] does. Referral faxed to [facility]: John. SW updated. Rosalia Medina DC Planning Asst.
--- NOTE | 2024-09-18 14:14 | CASEMGMT ---
Social Work SW spoke with pt's dgt and informed that [facility] not have bed availability but [facility] does and referral has been sent. Yovana states [facility] has reached out to her about finances and states that they will do an onsite visit with pt this afternoon or tomorrow morning. Plan: [facility], memory unit, pending acceptance MORRIS Mccoy
--- NOTE | 2024-09-18 18:37 | PN.HOSP_ITS ---
Reason for Visit Reason for Visit: Diagnoses Hypothyroidism, unspecified (09/16/24) Unspecified dementia, unspecified severity, with agitation (09/16/24) Unspecified dementia, severe, with agitation (09/16/24) Other specified abnormal findings of blood chemistry (09/16/24) Unspecified injury of head, sequela (09/16/24) Unspecified fall, sequela (09/16/24) Subjective Subjective Patient was seen and examined today, he does not appear to be in any distress, he was having a difficult time using the incentive spirometer, I explained to him that this was optional and that if he did not want to try to use it it was up to him. I instructed him how to use it properly. Objective Data Objective Data Vital Signs: Vital Signs Temp Pulse Resp BP Pulse Ox O2 Del Method 98.9 F 60 16 120/76 93 Room Air 09/18/24 15:44 09/18/24 15:44 09/18/24 15:44 09/18/24 15:44 09/18/24 15:44 09/18/24 15:44 Oxygen Delivery Method Room Air Weight: 85.8 kg Body Mass Index (BMI) 23.5 Intake & Output: Intake and Output for Last 24 Hours 09/16/24 09/17/24 09/18/24 23:59 23:59 23:59 Intake Total 1800 / 1800 920 / 920 Output Total 950 / 950 1350 / 1350 Balance 850 / 850 -430 / -430 Lab / Micro Data 09/17/24 06:30 09/17/24 06:30 Labs: Laboratory Results - last 24 hr 09/16/24 23:50: Hemoglobin A1c 6.1 09/18/24 08:00: Phosphorus 2.7 Physical Exam Narrative alert, oriented x3 and no apparent distress Constitutional Narrative: Patient appears a stated age, he exhibits some confusion General Appearance: cooperative, well kempt and well developed Orientation / Consciousness: awake, oriented to person and oriented to place HEENT normocephalic, head/scalp atraumatic and moist oral mucous membranes Eyes PERRL, EOMs intact bilaterally and conjunctivae normal Neck supple, no JVD, thyroid normal and no carotid bruits General: trachea midline Resp normal respiratory effort and clear to auscultation bilaterally Auscultation: Negative for rales, rhonchi or wheezes Cardio regular rate, regular rhythm, no murmurs, no rub and no gallops GI normal to inspection, nondistended, normoactive bowel sounds, soft to palpation, non-tender and non-distended Extremity no clubbing, cyanosis or edema Skin no rashes or lesions noted General Skin Exam: no breakdown Neuro oriented x3, CN's II-XII intact bilaterally, no focal motor deficits and no sensory deficits noted Sensorium / Orientation: awake, alert, oriented to person, oriented to place and oriented to time Speech: speech normal Psych affect normal Assessment & Plan Assessment/Plan (1) Dementia: QUALIFIERS: Dementia type: unspecified type Dementia severity: s evere Dementia behavioral or psychological symptom: with agitation Qualified Code(s): F03.C11 - Unspecified dementia, severe, with agitation PLAN: Plan 1. Dementia with behavioral disturbances-patient appears to be alert and oriented x 3 today, we are waiting approval for placement in a skilled care facility for the patient. #2 hypothyroidism-patient is on Synthroid #3 generalized debility secondary to dementia and advanced age-again patient's daughter request that the patient go to an extended care facility for skilled services Total clinical time spent by myself addressing the patient's medical issues, reviewing all of his data, and collaborating with patient's care team: 25 minutes Charges/Coding Visit Charges Inpatient E&M: 61219 Subs Hosp L1
[2024-09-18] MEDS: MELATONIN 3 MG TABLET PO (21:18)
[2024-09-18] MEDS: Acetaminophen 325 MG Tablet 650 MG PO (21:18)
[2024-09-19] VITALS (8 sets, daily range): BP systolic 116–149; BP diastolic 69–82; PULSE 59–80; RESP 16; TEMP 36.4–36.8; O2SAT 96–97; BMI 23.6
[2024-09-19] MEDS: Levothyroxine 137 MCG Tablet PO (06:16)
[2024-09-19] MEDS: Enoxaparin 40 MG/0.4 ML Syringe SC (07:48)
[2024-09-19] MEDS: Aspirin 81 MG TAB.CHEW PO (07:48)
[2024-09-19] MEDS: Ensure Plus High Protein 120 ML LIQUID PO ×2 (07:49→11:43)
--- NOTE | 2024-09-19 14:05 | CASEMGMT ---
TC to pt dtr to discuss HHC for pt at [facility]. She states everything is set up and pt can transport there. Asked if she plans on transporting pt and she states she was told he will go by ambulance. Asked if pt knows where he is going and she states she has not told him nor does she plan to. She states he will throw a fit. She states she spent all morning getting this set up and she is going home. Discussed HHC options, she denies a need for this at this time. She states that [facility] will be working with the patient enough. Dtr denies further needs at this time. SW updated.
--- NOTE | 2024-09-19 14:40 | DCINST_ITS ---
Discharge Instructions Diet Discharge Diet: No restrictions DC O2, CPAP, BIPAP needs Home O2 Discharge instructions: No Dressing / Incision Discharge Activity: Return to Normal Activity Weight Bearing Status: Full weight bearing Follow Up Care Test Results: Test results from this visit will be discussed in further detail at your follow- up appointment, if applicable. Discharge Plan Admission Admit Date/Time: 09/16/24 19:21 Primary Reason for Your Visit: Debility, dementia Attending Provider: Demetrius Nash Primary Care Provider: Alberto Mustafa Consulting Providers: Altaf Meeks Discharge Orders/Prescriptions Prescriptions: New acetaminophen 325 mg Tablet 650 mg PO Q6H PRN PRN (Reason: Pain 1-10 Or Fever>100.7) Qty: 0 0RF Continued levothyroxine 137 mcg tablet 137 mcg PO DAILY Referrals / Follow Up: Alberto Mustafa MD [Primary Care Provider] - Within 2 Weeks Disposition Disposition (needs filled in before D/C Order can be placed): Assisted Living
--- NOTE | 2024-09-19 14:46 | CASEMGMT ---
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 Pt dgt notified. John at [facility] notified. Nursing updated. MORRIS Burden Original Note: Social Work John from [facility] called and pt has been accepted to their facility. Physician notified and pt is ready for discharge. Discharge instructions faxed to [facility]. Plan: [facility], memory care MORRIS Burden
--- NOTE | 2024-09-19 14:47 | PCM.DC.SUM ---
Providers Date of Admission: 09/16/24 Date of Discharge: 09/19/24 Primary Care Physician: Dr. 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 Dementia with behavioral disturbances-patient appears to be alert and oriented x 3 today, we are waiting approval for placement in a skilled care facility for the patient. #2 hypothyroidism-patient is on Synthroid #3 generalized debility secondary to dementia and advanced age-again patient's daughter request that the patient go to an extended care facility for skilled services Total clinical time spent by myself addressing the patient's medical issues, reviewing all of his data, and collaborating with patient's care team: 25 minutes Medications at Discharge Home Medications levothyroxine 137 mcg tablet 137 mcg PO DAILY 09/16/24 acetaminophen 325 mg tablet 650 mg (2 x 325 mg) PO Q6H PRN PRN Pain 1-10 Or Fever>100.7 #0 tabs 09/19/24 Hospital Course Operations None Procedures None Summary of Care Provided Minutes Spent on Discharge: 32 Hospital Course: This 88-year-old white male was seen in the emergency room at [facility] after being brought in by his family due to increased confusion and inability to care for the patient due to his dementia. Patient was placed in observation status on MedSurg 3, seen by PT and OT, and an assisted living facility was looking for the patient to be transferred to for further care. On 09/19/2024, patient was seen and examined:alert, oriented x3 and no apparent distress Constitutional Narrative: Patient appears a stated age, he exhibits some confusion General Appearance: cooperative, well kempt and well developed Orientation / Consciousness: awake, oriented to person and oriented to place HEENT normocephalic, head/scalp atraumatic and moist oral mucous membranes Eyes PERRL, EOMs intact bilaterally and conjunctivae normal Neck supple, no JVD, thyroid normal and no carotid bruits General: trachea midline Resp normal respiratory effort and clear to auscultation bilaterally Auscultation: Negative for rales, rhonchi or wheezes Cardio regular rate, regular rhythm, no murmurs, no rub and no gallops GI normal to inspection, nondistended, normoactive bowel sounds, soft to palpation, non-tender and non-distended Extremity no clubbing, cyanosis or edema Skin no rashes or lesions noted General Skin Exam: no breakdown Neuro oriented x3, CN's II-XII intact bilaterally, no focal motor deficits and no sensory deficits noted Sensorium / Orientation: awake, alert, oriented to person, oriented to place and oriented to time Speech: speech normal Psych affect normal Patient was transferred to assisted living on 09/19/2024 in stable condition Weight / BMI Weight Weight: 86 kg Body Mass Index (BMI) 23.6 ABG / Lab / Microbiology Data 09/17/24 06:30 09/17/24 06:30 D/C Instructions Discharge Diet: No restrictions Weight Bearing Status: Full weight bearing DC O2, CPAP, BIPAP Needs Home O2 Discharge instructions: No Meaningful Use Info Meaningful Use Meaningful Use Diagnoses (Choose all that apply): None applicable Ischemic Stroke Statin Dosing Therapy Reference: STATIN DOSE THERAPY REFERENCE: * Patients > 75 years receive moderate or high dose statin therapy. * Patients 75 years or YOUNGER should receive HIGH intensity statin dose unless contraindicated. You will be required to document reason for non-treatment if statin daily dose does not meet guidelines. HIGH DOSE STATIN THERAPY DAILY Atorvastatin > than or = to 40 mg Rosuvastatin > than or = to 20 mg Amlodipine + Atorvastatin > than or = to 2.5/40 mg Ezetimibe + Simvastatin 10/80 mg Simvastatin 80mg Discharge Plan Admission Admit Date/Time: 09/16/24 19:21 Primary Reason for Your Visit: Debility, dementia Attending Provider: Demetrius Nash Primary Care Provider: Alberto Mustafa Consulting Providers: Altaf Meeks Discharge Orders/Prescriptions Prescriptions: New acetaminophen 325 mg Tablet 650 mg PO Q6H PRN PRN (Reason: Pain 1-10 Or Fever>100.7) Qty: 0 0RF Continued levothyroxine 137 mcg tablet 137 mcg PO DAILY Referrals / Follow Up: Alberto Mustafa MD [Primary Care Provider] - Within 2 Weeks Disposition Disposition (needs filled in before D/C Order can be placed): Assisted Living Charges/Coding Visit Charges Inpatient E&M: 92176 Disch Hosp >30min
[2024-09-23 04:32] LABS: Troponin T High Sens 4 HR 69 ng/L (<=22)
[2024-09-23 04:32] LABS: Troponin T High Sens 2 HR 77 ng/L (<=22)
== END 2024-09-19 17:09 | disposition home or self-care (01) ==
LOC: ED 13:04 → MS3 20:26
PROVIDERS: Admitting Provider Internal Medicine; Emergency Provider Emergency Medicine; PCP Family Medicine; Visit Provider Internal Medicine
DX: F03.C11 Unspecified dementia, severe, with agitation (principal); R53.81 Other malaise; M54.50 Low back pain, unspecified; S09.90XS Unspecified injury of head, sequela; E03.9 Hypothyroidism, unspecified; W19.XXXS Unspecified fall, sequela; Z79.890 Hormone replacement therapy; M19.90 Unspecified osteoarthritis, unspecified site; R79.89 Other specified abnormal findings of blood chemistry; I08.1 Rheumatic disorders of both mitral and tricuspid valves
CPT/HCPCS: 36415; 70450; 71045; 72125; 72131; 80053; 80061; 81001; 82746; 83036; 83735; 84100; 84439; 84443; 84484; 85025; 93005; 93306; 94668; 96372; 97116; 97162; 97166; 97530; 97535; 99221; 99284; A4216; G0378

== ENCOUNTER → 2024-09-16 | Outpatient (CLI) | payer MEDICARE, BC, SELFPAY ==
[2024-09-16 15:21] LABS: Absolute Lymphocyte Count 0.72 X10^3/uL (0.83-4.51); Absolute Neutrophil Count 3.9 X10^3/uL (2.0-7.7); Basophil# 0.04 X10^3/uL; Basophil% 0.8 % (0-1); Eosinophil# 0.06 X10^3/uL; Eosinophils% 1.2 % (0-5); Hematocrit 49.6 % (40-54); Hemoglobin 15.9 g/dL (13.0-16.5); Lymphocyte # 0.72 X10^3/ul (0.83-4.51); Lymphocyte % 13.9 % (19-41); Mean Corp Hgb Conc 32.1 g/dL (32-36); Mean Corpuscular Volume 93.6 fL (80-94); Mean Platelet Vol. 10.5 fl (6.2-12.0); Monocyte# 0.42 X10^3/uL; Monocyte% 8.1 % (0-10); NRBC Flagged by Analyzer 0 % (0-5); Neutrophil % 75.4 % (47-70); Platelet Count 169 K/mm3 (150-450); RBC Distribution Width CV 13.2 % (11.6-14.6); RBC Distribution Width SD 45.5 fl (35.1-43.9); White Blood Count 5.2 K/mm3 (4.4-11.0)
[2024-09-17 05:10] LABS: ALB/GLOB Ratio 1.4 RATIO (0.9-2.4); AST(SGOT) 31 U/L (<=37); Alanine Aminotransfer ALT/SGPT 15 U/L (<=46); Albumin, Serum 4.3 g/dL (3.4-4.8); Alkaline Phosphatase 113 U/L (40-129); Anion Gap 15 (5-15); BUN 16 mg/dL (4-19); BUN/Creat Ratio 10.9 RATIO (10-20); Calcium 10.3 mg/dL (7.6-11.0); Chloride 97 mmol/L (96-108); Creatinine, Serum 1.4 mg/dL (0.8-1.3); EST Glomerular Filtration Rate 48 (>60); Globulin 3.2 g/dL (2.2-4.2); Glucose 124 mg/dL (70-99); Potassium 4.4 mmol/L (3.3-5.1); Protein, Total 7.5 g/dL (5.9-8.4); Sodium Level 136 mmol/L (133-145); Total Bilirubin 0.79 mg/dL (0.00-1.30)
== END | disposition home or self-care (01) ==
LOC: MFPLAB 11:56
PROVIDERS: PCP Family Medicine; Referring Provider Family Medicine; Visit Provider Family Medicine
DX: E03.9 Hypothyroidism, unspecified (principal)
CPT/HCPCS: 36415; 80053; 84439; 84443; 85025

== ENCOUNTER → 2024-09-22 | Outpatient (REF) | payer MEDICARE, BC, SELFPAY ==
[2024-09-22 08:25] LABS: Hemoglobin A1c 6.1 % (<=5.6)
[2024-09-22 14:02] LABS: Cholesterol 242 mg/dL (<=200); High Density Lipoprotein 72 mg/dL; Low Density Lipoprotein Calc. 144 mg/dL; Triglycerides 131 mg/dL; Very Low Density Lipoprotein 26 mg/dL (5-40); cholesterol:hdl ratio screen 3.38
== END ==
LOC: OLS.BROOKB 05:00
PROVIDERS: PCP Family Medicine; Visit Provider Family Medicine
DX: E03.9 Hypothyroidism, unspecified (principal); F03.C11 Unspecified dementia, severe, with agitation; Z79.899 Other long term (current) drug therapy
CPT/HCPCS: 36415; 80061; 83036; 84443

== ENCOUNTER → 2024-09-24 | Outpatient (REF) | payer MEDICARE, BC, SELFPAY | LOC: OLS.BROOKB 05:00 | PROVIDERS: PCP Family Medicine; Visit Provider Family Medicine | DX: Z79.899 Other long term (current) drug therapy (principal) | CPT/HCPCS: 36415; 84439 ==

== ENCOUNTER 2024-10-15 12:15 | Outpatient (RCR) | payer MEDICARE, BC, SELFPAY ==
[2024-10-08 11:57] VITALS: BP 149/68; PULSE 67; RESP 18; TEMP 36.1
--- NOTE | 2024-10-09 08:53 | WC ---
PHOTO 10/08/24
--- NOTE | 2024-10-09 14:19 | HP.PCM_ITS ---
History of Present Illness Date of Service: 10/09/24 Chief Complaint: Full-thickness wound left foot History of Wound: Full-thickness wound left foot Progress of Wound: Mr Razo is a 88-year-old male presenting to the wound care center today for evaluation of full-thickness wound to the plantar aspect left foot. Patient currently resides at a a facility where he is treated by medical staff. When asked about the full-thickness wound the patient was unsure how it got there. Patient also relates to bumping his head in the shower after falling. He was seen by emergency room department at [facility] and evaluated and discharged. He states the wound has been present but does not know how long. He denies any trauma to the area. Denies constitutional symptoms. No other pedal complaints at this time. COUNT INCLUDES THE [facility] Medical History Agitation due to dementia Closed head injury Fall Dementia Hypothyroidism Home Medications ?Medication ?Instructions ?Recorded ?Last Taken ?Type levothyroxine 137 mcg tablet 137 mcg PO DAILY 09/16/24 Unknown History acetaminophen 325 mg tablet 650 mg (2 x 325 mg) PO Q6H PRN PRN 09/19/24 Unknown Rx Pain 1-10 Or Fever>100.7 #0 tabs Allergy/AdvReac Type Severity Reaction Status Date / Time shellfish derived Allergy unknown Verified 09/16/24 12:27 Social History Smoking Status: Never smoker Physical Exam Narrative Vascular: DP and PT pulses are faintly palpable to left lower extremity. CFT is brisk. Skin temperature gradient is warm to warm from proximal ankle to distal digit. No erythema. Neurologic: Light touch intact. Epicritic sensation is intact. Patient does respond to painful stimuli. Dermatological: Full-thickness wound to the subfifth metatarsal head of the left foot measuring 1.0 x 0.7 x 0.2 cm. Wound base is granular. No drainage or sign of infection. Evidence of hyperkeratotic periwound. Excisional debridement down to and including subcutaneous tissue with a number 5 mm dermal curette to the subfifth metatarsal full-thickness wound to the left foot without incident. Predebridement measurement was 0.7 x 0.5 x 0.1 cm. Postdebridement measurement is 1.0 x 0.7 x 0.2 cm. Musculoskeletal: Muscle strength is 5 out of 5 to left lower extremity. No pain on palpation to full-thickness wound. No pain with calf compression. Debridement Note Debridement Note Debridement Free Text: Excisional debridement down to and including subcutaneous tissue with a number 5 mm dermal curette to the subfifth metatarsal full- thickness wound to the left foot without incident. Predebridement measurement was 0.7 x 0.5 x 0.1 cm. Postdebridement measurement is 1.0 x 0.7 x 0.2 cm. Post-Debridement Measurements and Additional Note: Post-Debridement Measurements/Treatment - Nurse 1 - General Ulcer Assessment Start: 10/08/24 11:57 Freq: Status: Active Protocol: DANITA Activity Type Activity Date Activity User E-sign Co-sign Detail Recorded Client Recorded Date Recorded By Document 10/08/24 11:57 GA [id number] 10/08/24 12:07 GA 10/08/24 11:57 WC - Today's Visit Information Type of service Initial Visit Arrival Mode Ambulatory, Walker Accompanied by self Patient Identification Verified (Name & Yes ) Safety Precautions Fall Prevention Vital Signs Temperature (97.8 F-99.1 F) 97 F L Temperature Source Temporal Pulse Rate (60-100) 67 Pulse Location Monitor Respiratory Rate (12-18) 18 Respiratory rate source Observation Oxygen Delivery Method Room Air Blood Pressure (90/60-120/80) 149/68 H Blood Pressure Mean 95 Source Monitor Position Sitting Blood Pressure Location Left Arm History Since Last Visit- (Skip if this is Patient's initial visit) Left Footwear Regular Shoe Right Footwear Regular Shoe Pain Scale: 0-10 Numeric Is Patient Pain Free? Yes - Nurse 1 - General Ulcer Measurement Start: 10/08/24 11:57 Freq: Status: Active Protocol: Activity Type Activity Date Activity User E-sign Co-sign Detail Recorded Client Recorded Date Recorded By Document 10/08/24 11:57 GA [id number] 10/08/24 12:07 GA 10/08/24 11:57 Wound Center Nurse 1 Left Lateral Foot -Current Size (cm) - Length 1.4 -Current Size (cm) - Width 1.0 -Current Size (cm) - Depth 0.3 -Total Square Cm 1.40 -Date of Last Picture (Recall this 10/08/24 field) -Photo Taken Yes -Tunneling No -Undermining/Tunneling Yes -Undermining/Tunneling Starts (O'clock 9 ) -Undermining/Tunneling Ends (O'clock) 12 -Maximum Distance (cm) 0.3 -Classification - Thickness Partial Thickness -Exudate Amt Medium -Exudate Type Serosanguineous -Wound Margin Thickened & Rolled Under -Granulation Amt Medium (34-66%) -Granulation Quality Pale,[place] -Necrosis Amt Medium (34-66%) -Necrotic Tissue Type Adherent Slough -Texture (Alyce-wound Skin Appearance) Assessed -Moisture (Alyce-wound Skin Appearance) Assessed -Color (Alyce-wound Skin Appearance) Assessed -Temperature (Alyce-wound Skin No Abnormality Appearance) (Pt Warm) -Tenderness on Palpation (Alyce-wound No Skin Appearance) -Ulcer Cleansing Soap and Water -Foul Odor after Cleansing No -Anesthetic Used 5% Lidocaine Gel Left Calf (cm) 25 Left Ankle (cm) 37.5 WC - Nurse 2 - General Ulcer CM Notes Start: 10/08/24 11:57 Freq: Status: Active Protocol: Activity Type Activity Date Activity User E-sign Co-sign Detail Recorded Client Recorded Date Recorded By Document 10/08/24 12:21 CAYLA [id number] 10/08/24 12:25 CAYLA 10/08/24 12:21 Wound Center Nurse 2 Left Lateral Foot -Time 12:22 -Correct Patient Yes -Correct Side, Site, Position Yes -Correct Procedure Yes -Procedure Performed Yes -Type of Procedure Debridement -Clinical Debridement Subcutaneous -Tissue Removed Subcutaneous -Post Debridement (cm) - Length 1.0 -Post Debridement (cm) - Width 0.7 -Post Debridement (cm) - Depth 0.2 -Total Square (Post) (cm) 0.70 -Area of Debridement (cm) - Length 1.0 -Area of Debridement (cm) - Width 0.7 -Total Square (Area) (cm) 0.70 -Tunneling No -Undermining/Tunneling No -Circular Undermining No -Wound/Ulcer Outcome Not Healed -Ulcer Cleansing Rinsed/ Irrigated with Saline -Foul Odor after Cleansing No -Bioengineered Tissue No -Bleeding Controlled with Pressure -Treatment Response Procedure Tolerated Well -Offloading No -Debridement - Subq, 1st 20sq cm Yes Pain Scale: 0-10 Numeric Is Patient Pain Free? Yes WC - Nurse 3 - General Ulcer D/C NN Start: 10/08/24 11:57 Freq: Status: Active Protocol: Activity Type Activity Date Activity User E-sign Co-sign Detail Recorded Client Recorded Date Recorded By Document 10/08/24 15:07 JF 0000 10/08/24 15:07 JF 10/08/24 15:07 Wound Care Center Nurse 3 Left Lateral Foot -Ulcer Cleansing Rinsed/ Irrigated with Saline -Foul Odor after Cleansing No -Other Dressing betadine -Primary Dressing Covered/Secured with Dry Gauze, Secured with Tape Pain Scale: 0-10 Numeric Is Patient Pain Free? Yes WC - Visit Discharge Discharge Condition Stable Ambulatory Status Ambulatory Transportation Private Auto Medication Reconcilliation completed & Yes provided to patient/care provider Clinical Summary of Care Provided Yes Assessment/Plan Assessment/Plan (1) Non-pressure chronic ulcer of other part of left foot with fat layer exposed: CODE(S): L97.522 - Non-pressure chronic ulcer of other part of left foot with fat layer exposed PLAN: Patient was examined and evaluated. All findings were discussed with the patient. All questions were answered to the patient satisfaction. Excisional debridement down to and including subcutaneous tissue with a number 5 mm dermal curette to the subfifth metatarsal full-thickness wound to the left foot without incident. Predebridement measurement was 0.7 x 0.5 x 0.1 cm. Postdebridement measurement is 1.0 x 0.7 x 0.2 cm. The left foot was clean and patted dry. Betadine paint was applied to the full-thickness wound followed by dry sterile dressing. Patient will be placed in a Tubigrip. We will begin ordering through the patient's insurance wound care supplies to be done twice daily until follow-up. We did discuss surgical intervention with the patient however the patient declined at this time and will continue weekly wound care here at [facility]. Patient was grateful for his care. He will continue to ambulate as tolerated with a walker. Patient will follow-up in 1 week
[2024-10-15 12:16] VITALS: BP 161/54; PULSE 59; RESP 18; TEMP 35.9
--- NOTE | 2024-10-15 15:18 | WC ---
PHOTO 10/15/24 LEFT PLANTAR FOOT
--- NOTE | 2024-10-18 20:23 | PN.PCM_ITS ---
History of Present Illness Date of Service: 10/18/24 Chief Complaint: Full-thickness wound left foot History of Wound: Full-thickness wound left foot Progress of Wound: Stable left foot wound Subjective Subjective Mr. Razo is a 88-year-old male presenting the wound care center today follow-up evaluation of full-thickness wound. They have been doing dressing changes as instructed at his facility. He admits no pain to the left foot. He is wearing slippers today. He is walking with assistance of a walker. Denies any new onset of trauma. Denies constitutional symptoms. No other pedal complaints at this time. Objective Data Objective Data Vital Signs: Vital Signs Temp Pulse Resp BP O2 Del Method 96.7 F L 59 L 18 161/54 H Room Air 10/15/24 12:16 10/15/24 12:16 10/15/24 12:16 10/15/24 12:16 10/15/24 12:16 Oxygen Delivery Method Room Air Physical Exam Narrative Vascular: DP and PT pulses are faintly palpable to left lower extremity. CFT is brisk. Skin temperature gradient is warm to warm from proximal ankle to distal digit. No erythema. Neurologic: Light touch intact. Epicritic sensation is intact. Patient does respond to painful stimuli. Dermatological: Full-thickness wound to the subfifth metatarsal head of the left foot measuring 0.8 x 0.3 x 0.1 cm. Wound base is granular. No drainage or sign of infection. Evidence of hyperkeratotic periwound. Excisional debridement down to and including subcutaneous tissue with a number 5 mm dermal curette to the subfifth metatarsal full-thickness wound to the left foot without incident. Predebridement measurement was 0.7 x 0.2 x 0.1 cm. Postdebridement measurement is 0.8 x 0.3 x 0.1 cm. Musculoskeletal: Muscle strength is 5 out of 5 to left lower extremity. No pain on palpation to full-thickness wound. No pain with calf compression. Debridement Note Debridement Note Debridement Free Text: Excisional debridement down to and including subcutaneous tissue with a number 5 mm dermal curette to the subfifth metatarsal full- thickness wound to the left foot without incident. Predebridement measurement was 0.7 x 0.2 x 0.1 cm. Postdebridement measurement is 0.8 x 0.3 x 0.1 cm. Post-Debridement Measurements and Additional Note: Post-Debridement Measurements/Treatment - Nurse 1 - General Ulcer Assessment Start: 10/08/24 11:57 Freq: Status: Active Protocol: DANITA Activity Type Activity Date Activity User E-sign Co-sign Detail Recorded Client Recorded Date Recorded By Document 10/08/24 11:57 MT [id number] 10/08/24 12:07 MT Document 10/15/24 12:16 KW [id number] 10/15/24 12:20 KW 10/08/24 10/15/24 11:57 12:16 WC - Today's Visit Information Type of service Initial Visit Follow-up Visit (Physician/HEAD OF DIGITAL ) Arrival Mode Ambulatory, Ambulatory, Walker Walker Accompanied by self Patient Identification Verified (Name & Yes Yes ) Safety Precautions Fall Prevention Vital Signs Temperature (97.8 F-99.1 F) 97 F L 96.7 F L Temperature Source Temporal Temporal Pulse Rate (60-100) 67 59 L Pulse Location Monitor Monitor Respiratory Rate (12-18) 18 18 Respiratory rate source Observation Observation Oxygen Delivery Method Room Air Room Air Blood Pressure (90/60-120/80) 149/68 H 161/54 H Blood Pressure Mean (mm Hg) 95 89 Source Monitor Monitor Position Sitting Semi-Fowlers Blood Pressure Location Left Arm Right Arm History Since Last Visit- (Skip if this is Patient's initial visit) Have you changed medications since your No last visit? Any new allergies or adverse reactions No Had a fall/change in ADL's that may No increase risk of falls Signs or symptoms of abuse and/or No neglect since last visit Have you been in the hospital since your No last visit? Has dressing in place as prescribed Yes Has compression in place as prescribed N/A Has offloadiing in place as prescribed N/A Experienced any changes in pain level or No management Left Footwear Regular Shoe Regular Shoe Right Footwear Regular Shoe Regular Shoe Pain Scale: 0-10 Numeric Is Patient Pain Free? Yes Yes - Nurse 1 - General Ulcer Measurement Start: 10/08/24 11:57 Freq: Status: Active Protocol: Activity Type Activity Date Activity User E-sign Co-sign Detail Recorded Client Recorded Date Recorded By Document 10/08/24 11:57 [place] [id number] 10/08/24 12:07 MT Document 10/15/24 12:16 KW [id number] 10/15/24 12:20 KW 10/08/24 10/15/24 11:57 12:16 Wound Center Nurse 1 Left Lateral Foot -Current Size (cm) - Length 1.4 0.1 -Current Size (cm) - Width 1.0 0.1 -Current Size (cm) - Depth 0.3 0.1 -Total Square Cm 1.40 0.01 -Date of Last Picture (Recall this 10/08/24 10/15/24 field) -Photo Taken Yes -Epithelialization Medium 34-66% -Tunneling No -Undermining/Tunneling Yes -Undermining/Tunneling Starts (O'clock 9 ) -Undermining/Tunneling Ends (O'clock) 12 -Maximum Distance (cm) 0.3 -Classification - Thickness Partial Thickness -Exudate Amt Medium Small -Exudate Type Serosanguineous Serosanguineous -Wound Margin Thickened & Distinct, Rolled Under Outline Attached -Granulation Amt Medium (34-66%) Small (1-33%) -Granulation Quality Pale,[place] -Necrosis Amt Medium (34-66%) Small (1-33%) -Necrotic Tissue Type Adherent Slough Adherent Slough -Texture (Alyce-wound Skin Appearance) Assessed Assessed,Callus -Moisture (Alyce-wound Skin Appearance) Assessed Assessed, Maceration -Color (Alyce-wound Skin Appearance) Assessed Assessed -Temperature (Alyce-wound Skin No Abnormality No Abnormality Appearance) (Pt Warm) (Pt Warm) -Tenderness on Palpation (Alyce-wound No No Skin Appearance) -Ulcer Cleansing Soap and Water Rinsed/ Irrigated with Saline -Foul Odor after Cleansing No No -Anesthetic Used 5% Lidocaine 5% Lidocaine Gel Gel -Wound Comment(s) not measured in nurse 1 Left Calf (cm) 25 Left Ankle (cm) 37.5 WC - Nurse 2 - General Ulcer CM Notes Start: 10/08/24 11:57 Freq: Status: Active Protocol: Activity Type Activity Date Activity User E-sign Co-sign Detail Recorded Client Recorded Date Recorded By Document 10/08/24 12:21 JF [id number] 10/08/24 12:25 JF Document 10/15/24 12:53 JF [id number] 10/15/24 12:55 JF 10/08/24 10/15/24 12:21 12:53 Wound Center Nurse 2 Left Lateral Foot -Time 12:22 12:53 -Correct Patient Yes Yes -Correct Side, Site, Position Yes Yes -Correct Procedure Yes Yes -Procedure Performed Yes Yes -Type of Procedure Debridement Debridement -Clinical Debridement Subcutaneous Subcutaneous -Tissue Removed Subcutaneous Subcutaneous -Post Debridement (cm) - Length 1.0 0.8 -Post Debridement (cm) - Width 0.7 0.3 -Post Debridement (cm) - Depth 0.2 0.1 -Total Square (Post) (cm) 0.70 0.24 -Area of Debridement (cm) - Length 1.0 0.8 -Area of Debridement (cm) - Width 0.7 0.3 -Total Square (Area) (cm) 0.70 0.24 -Tunneling No No -Undermining/Tunneling No No -Circular Undermining No No -Wound/Ulcer Outcome Not Healed Not Healed -Ulcer Cleansing Rinsed/ Rinsed/ Irrigated with Irrigated with Saline Saline -Foul Odor after Cleansing No No -Bioengineered Tissue No No -Bleeding Controlled with Pressure Pressure -Treatment Response Procedure Procedure Tolerated Well Tolerated Well -Offloading No No -Debridement - Subq, 1st 20sq cm Yes Yes Pain Scale: 0-10 Numeric Is Patient Pain Free? Yes Yes - Nurse 3 - General Ulcer D/C NN Start: 10/08/24 11:57 Freq: Status: Active Protocol: Activity Type Activity Date Activity User E-sign Co-sign Detail Recorded Client Recorded Date Recorded By Document 10/08/24 15:07 0000 10/08/24 15:07 Document 10/15/24 13:07 [id number] 10/15/24 13:07 10/08/24 10/15/24 15:07 13:07 Wound Care Center Nurse 3 Left Lateral Foot -Ulcer Cleansing Rinsed/ Irrigated with Saline -Foul Odor after Cleansing No -Other Dressing betadine betadine gauze -Primary Dressing Covered/Secured with Dry Gauze, Dry Gauze & Secured with Roll Gauze, Tape Secured with Tape LLE -Tubular Bandage Single Layer -Size of Tubigrip Used Size E -Size E ($) 1 Pain Scale: 0-10 Numeric Is Patient Pain Free? Yes Yes - Visit Discharge Discharge Condition Stable Stable Ambulatory Status Ambulatory Ambulatory, Walker Transportation Private Auto Medication Reconcilliation completed & Yes No provided to patient/care provider Clinical Summary of Care Provided Yes Yes Assessment/Plan Assessment/Plan (1) Non-pressure chronic ulcer of other part of left foot with fat layer exposed: CODE(S): L97.522 - Non-pressure chronic ulcer of other part of left foot with fat layer exposed PLAN: Patient was examined and evaluated. All findings were discussed with the patient. All questions were answered to the patient satisfaction. Excisional debridement down to and including subcutaneous tissue with a number 5 mm dermal curette to the subfifth metatarsal full-thickness wound to the left foot without incident. Predebridement measurement was 0.7 x 0.2 x 0.1 cm. Postdebridement measurement is 0.8 x 0.3 x 0.1 cm. The left foot was clean and patted dry. Betadine paint was applied to the full-thickness wound followed by dry sterile dressing. Patient will be placed in a Tubigrip. He will continue to ambulate as tolerated with a walker. Patient will follow-up in 1 week
== END 2024-10-20 23:59 | disposition home or self-care (01) ==
LOC: WC 12:15
PROVIDERS: PCP Family Medicine; Visit Provider Podiatrist Foot & Ankle Surgery
DX: L97.522 Non-pressure chronic ulcer of other part of left foot with fat layer exposed (principal); F03.90 Unspecified dementia, unspecified severity, without behavioral disturbance, psychotic disturbance, mood disturbance, and anxiety; E03.9 Hypothyroidism, unspecified
CPT/HCPCS: 11042; 99214; G0463

== ENCOUNTER 2024-10-22 12:42 | Outpatient (RCR) | payer MEDICARE, BC, SELFPAY ==
[2024-10-21 00:35] VITALS: BP 161/54; PULSE 59; RESP 18; TEMP 35.9
== END 2024-11-19 23:59 | disposition home or self-care (01) ==
LOC: WC 12:42
PROVIDERS: PCP Family Medicine; Visit Provider Podiatrist Foot & Ankle Surgery
DX: Z09 Encounter for follow-up examination after completed treatment for conditions other than malignant neoplasm (principal)

== ENCOUNTER → 2024-10-27 | Outpatient (REF) | payer MEDICARE, BC, SELFPAY ==
[2024-10-27 10:02] LABS: Anion Gap 10 (5-15); BUN 22 mg/dL (4-19); Calcium,Total 9.3 mg/dL (7.6-11.0); Carbon Dioxide 23.9 mmol/L (21.0-32.0); Chloride 106 mmol/L (98-108); Creatinine, Serum 1.28 mg/dL (0.70-1.20); EST Glomerular Filtration Rate 54 (>60); Glucose 161 mg/dL (70-99); Potassium 4.6 mmol/L (3.3-5.1); Sodium Level 140 mmol/L (133-145)
== END ==
LOC: OLS.BROOKB 05:00
PROVIDERS: PCP Family Medicine; Visit Provider Family Medicine
DX: E03.9 Hypothyroidism, unspecified (principal)
CPT/HCPCS: 36415; 80048

== ENCOUNTER → 2024-11-05 | Outpatient (REF) | payer MEDICARE, BC, SELFPAY | LOC: OLS.BROOKB 05:00 | PROVIDERS: PCP Family Medicine; Visit Provider Family Medicine | DX: E03.9 Hypothyroidism, unspecified (principal) | CPT/HCPCS: 36415; 84439; 84443 ==

== ENCOUNTER → 2024-11-24 | Outpatient (REF) | payer MEDICARE, BC, SELFPAY ==
[2024-11-24 10:12] LABS: Anion Gap 10 (5-15); BUN 31 mg/dL (4-19); BUN/Creat Ratio 20.8 RATIO (10-20); Calcium,Total 9.8 mg/dL (7.6-11.0); Carbon Dioxide 23.8 mmol/L (21.0-32.0); Chloride 102 mmol/L (98-108); Creatinine, Serum 1.47 mg/dL (0.70-1.20); EST Glomerular Filtration Rate 46 (>60); Glucose 142 mg/dL (70-99); Potassium 4.9 mmol/L (3.3-5.1); Sodium Level 136 mmol/L (133-145)
== END ==
LOC: OLS.BROOKB 05:00
PROVIDERS: PCP Family Medicine; Visit Provider Family Medicine
DX: F03.90 Unspecified dementia, unspecified severity, without behavioral disturbance, psychotic disturbance, mood disturbance, and anxiety (principal)
CPT/HCPCS: 36415; 80048

== ENCOUNTER → 2024-11-26 | Outpatient (REF) | payer MEDICARE, BC, SELFPAY ==
[2024-11-26 09:29] LABS: AST(SGOT) 21 U/L (<=37); Alanine Aminotransfer ALT/SGPT 11 U/L (<=46); Albumin, Serum 4.3 g/dL (3.4-4.8); Alkaline Phosphatase 104 U/L (40-129); Bilirubin, Direct 0.24 mg/dL (0.00-0.30); Protein, Total 7.2 g/dL (5.9-8.4); Total Bilirubin 0.67 mg/dL (0.00-1.30)
== END ==
LOC: OLS.BROOKB 05:00
PROVIDERS: PCP Family Medicine; Visit Provider Family Medicine
DX: E03.9 Hypothyroidism, unspecified (principal); F03.C11 Unspecified dementia, severe, with agitation
CPT/HCPCS: 36415; 80076

== ENCOUNTER 2024-12-03 13:15 | Outpatient (RCR) | payer MEDICARE, BC, SELFPAY ==
[2024-11-20 00:33] VITALS: BP 161/54; PULSE 59; RESP 18; TEMP 35.9
[2024-11-26 13:16] VITALS: BP 142/65; PULSE 71; RESP 16; TEMP 36.6
--- NOTE | 2024-11-26 13:44 | PCM.WC.PN ---
History of Present Illness Date of Service: 11/26/24 Chief Complaint: Full-thickness wound left foot History of Wound: Full-thickness wound left foot Progress of Wound: Stable left foot wound Subjective Subjective Mr. Razo is a 88-year-old male presenting to wound care center today for follow-up evaluation of full-thickness wound to the plantar left foot at the level of the subfifth metatarsal head. Patient has been getting dressing changes per nursing staff. He is ambulatory. He is not diabetic. He denies any new skin breakdown denies trauma. Denies constitutional symptoms. No other pedal complaints at this time. Objective Data Objective Data Vital Signs: Vital Signs Temp Pulse Resp BP O2 Del Method 97.8 F 71 16 142/65 H Room Air 11/26/24 13:16 11/26/24 13:16 11/26/24 13:16 11/26/24 13:16 11/26/24 13:16 Oxygen Delivery Method Room Air Physical Exam Narrative Vascular: DP and PT pulses are faintly palpable to left lower extremity. CFT is brisk. Skin temperature gradient is warm to warm from proximal ankle to distal digit. No erythema. Neurologic: Light touch intact. Epicritic sensation is intact. Patient does respond to painful stimuli. Dermatological: Full-thickness wound to the subfifth metatarsal head of the left foot measuring 1.0 x 0.4 x 0.2 cm. Evidence of hyperkeratotic periwound with maceration. Wound base is granular with no sign of infection. Wound base is granular. No drainage or sign of infection. Excisional debridement down to and including subcutaneous tissue with a number 5 mm dermal curette to the subfifth metatarsal full-thickness wound to the left foot without incident. Predebridement measurement was 0.8 x 0.3 x 0.1 cm.. Postdebridement measurement is 1.0 x 0.4 x 0.2 cm. Musculoskeletal: No pain on palpation to full-thickness wound. No pain with calf compression. Debridement Note Debridement Note Debridement Free Text: Excisional debridement down to and including subcutaneous tissue with a number 5 mm dermal curette to the subfifth metatarsal full-thickness wound to the left foot without incident. Predebridement measurement was 0.8 x 0.3 x 0.1 cm.. Postdebridement measurement is 1.0 x 0.4 x 0.2 cm. 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 Any new allergies or adverse reactions No Had a fall/change in ADL's that may No increase risk of falls Signs or symptoms of abuse and/or No neglect since last visit Have you been in the hospital since your No last visit? Has dressing in place as prescribed Yes Has compression in place as prescribed No Has offloadiing in place as prescribed N/A Experienced any changes in pain level or No management Left Footwear Regular Shoe Right Footwear Regular Shoe Pain Scale: 0-10 Numeric Is Patient Pain Free? Yes - Nurse 1 - General Ulcer Measurement Start: 11/26/24 13:16 Freq: Status: Active Protocol: Activity Type Activity Date Activity User E-sign Co-sign Detail Recorded Client Recorded Date Recorded By Document 11/26/24 13:16 RIVAS [id number] 11/26/24 13:25 KW 11/26/24 13:16 Wound Center Nurse 1 Left Lateral Foot -Current Size (cm) - Length 1 -Current Size (cm) - Width 0.3 -Current Size (cm) - Depth 0.2 -Total Square Cm 0.3 -Date of Last Picture (Recall this 11/26/24 field) -Exudate Amt Large -Exudate Type Serosanguineous -Wound Margin Thickened -Granulation Amt Large (67-100%) -Granulation Quality Red -Texture (Alyce-wound Skin Appearance) Assessed,Callus -Moisture (Alyce-wound Skin Appearance) Assessed, Maceration -Color (Alyce-wound Skin Appearance) Assessed -Temperature (Alyce-wound Skin No Abnormality Appearance) (Pt Warm) -Tenderness on Palpation (Alyce-wound No Skin Appearance) -Ulcer Cleansing Rinsed/ Irrigated with Saline -Foul Odor after Cleansing No -Anesthetic Used 5% Lidocaine Gel Left Calf (cm) 38.5 Left Ankle (cm) 24 WC - Nurse 2 - General Ulcer CM Notes Start: 11/26/24 13:16 Freq: Status: Active Protocol: Activity Type Activity Date Activity User E-sign Co-sign Detail Recorded Client Recorded Date Recorded By Document 11/26/24 13:30 CAYLA [id number] 11/26/24 13:36 CAYLA 11/26/24 13:30 Wound Center Nurse 2 Left Lateral Foot -Time 13:31 -Correct Patient Yes -Correct Side, Site, Position Yes -Correct Procedure Yes -Procedure Performed Yes -Type of Procedure Debridement -Clinical Debridement Subcutaneous -Tissue Removed Subcutaneous -Post Debridement (cm) - Length 1.0 -Post Debridement (cm) - Width 0.4 -Post Debridement (cm) - Depth 0.2 -Total Square (Post) (cm) 0.40 -Area of Debridement (cm) - Length 1.0 -Area of Debridement (cm) - Width 0.4 -Total Square (Area) (cm) 0.40 -Tunneling No -Undermining/Tunneling No -Circular Undermining No -Wound/Ulcer Outcome Not Healed -Ulcer Cleansing Rinsed/ Irrigated with Saline -Foul Odor after Cleansing No -Bioengineered Tissue No -Bleeding Controlled with Pressure -Treatment Response Procedure Tolerated Well -Offloading Yes -Type of Offloading Surgical Shoe -Debridement - Subq, 1st 20sq cm Yes Pain Scale: 0-10 Numeric Is Patient Pain Free? Yes Assessment/Plan Assessment/Plan (1) Non-pressure chronic ulcer of other part of left foot with fat layer exposed: CODE(S): L97.522 - Non-pressure chronic ulcer of other part of left foot with fat layer exposed PLAN: Patient was examined and evaluated. All findings were discussed with the patient. All questions were answered to the patient satisfaction. Excisional debridement down to and including subcutaneous tissue with a number 5 mm dermal curette to the subfifth metatarsal full-thickness wound to the left foot without incident. Predebridement measurement was 0.8 x 0.3 x 0.1 cm.. Postdebridement measurement is 1.0 x 0.4 x 0.2 cm.. The left foot was clean and patted dry. Betadine paint was applied to the full-thickness wound followed by dry sterile dressing. Patient will be placed in a Tubigrip. Offloading pad was placed on a surgical shoe and then donned to the left lower extremity. He will continue to ambulate as tolerated with a walker. I did recommend to the patient that would like to speak to his POA regarding possible surgical intervention with minimally invasive dorsiflexor osteotomy to the fifth metatarsal however I do not know if the patient will be compliant with postoperative instructions. If the patient is not improving over the next 2 to 4 weeks we will recommend meeting with POA so we could possibly move forward with elective surgery to the left foot. Patient will follow-up in 1 week
--- NOTE | 2024-11-27 10:33 | WC ---
PHOTO 11/26/24 LEFT PLANTAR FOOT
[2024-12-03 13:22] VITALS: BP 133/68; PULSE 78; RESP 18; TEMP 36.1
--- NOTE | 2024-12-03 14:33 | PCM.WC.PN ---
History of Present Illness Date of Service: 12/03/24 Chief Complaint: Full-thickness wound left foot History of Wound: Full-thickness wound left foot Progress of Wound: Stable left foot wound Subjective Subjective Mr. Elmore is a 81-year-old male presenting to clinic today for follow-up evaluation of full-thickness wound to the plantar aspect of the subfifth metatarsal head left foot. He also has a thickened callus to the right foot that he like looked at. He has been getting dressing changes per nursing staff and orders. Denies trauma. Denies constitutional symptoms. No other pedal complaints at this time. Objective Data Objective Data Vital Signs: Vital Signs Temp Pulse Resp BP O2 Del Method 97 F L 78 18 133/68 H Room Air 12/03/24 13:22 12/03/24 13:22 12/03/24 13:22 12/03/24 13:22 12/03/24 13:22 Oxygen Delivery Method Room Air Physical Exam Narrative Vascular: DP and PT pulses are faintly palpable to left lower extremity. CFT is brisk. Skin temperature gradient is warm to warm from proximal ankle to distal digit. No erythema. Neurologic: Light touch intact. Epicritic sensation is intact. Patient does respond to painful stimuli. Dermatological: Hyperkeratotic tissue appreciated to the lateral aspect of the fifth metatarsal head right foot, no signs of infection. Full-thickness wound to the subfifth metatarsal head of the left foot measuring 0.9 x 0.4 x 0.1 cm. Wound base is granular with no sign of infection. No drainage or sign of infection. Excisional debridement down to and including subcutaneous tissue with a number 5 mm dermal curette to the subfifth metatarsal full-thickness wound to the left foot without incident. Predebridement measurement was 0.8 x 0.2 x 0.1 cm.. Postdebridement measurement is 0.9 x 0.4 x 0.1 cm. Musculoskeletal: No pain on palpation to full-thickness wound. No pain with calf compression. Debridement Note Debridement Note Debridement Free Text: Excisional debridement down to and including subcutaneous tissue with a number 5 mm dermal curette to the subfifth metatarsal full-thickness wound to the left foot without incident. Predebridement measurement was 0.8 x 0.2 x 0.1 cm.. Postdebridement measurement is 0.9 x 0.4 x 0.1 cm. Post-Debridement Measurements and Additional Note: Post-Debridement Measurements/Treatment - Nurse 1 - General Ulcer Assessment Start: 11/26/24 13:16 Freq: Status: Active Protocol: DANITA Activity Type Activity Date Activity User E-sign Co-sign Detail Recorded Client Recorded Date Recorded By Document 11/26/24 13:16 KW [id number] 11/26/24 13:25 KW Document 12/03/24 13:22 MT [id number] 12/03/24 13:29 GA 11/26/24 12/03/24 13:16 13:22 WC - Today's Visit Information Type of service Follow-up Visit Follow-up Visit (Physician/PRESSER ALL AROUND (Physician/PRESSER ALL AROUND ) ) Arrival Mode Ambulatory, Ambulatory, Walker Walker Accompanied by self Patient Identification Verified (Name & Yes Yes ) Safety Precautions Fall Prevention Vital Signs Temperature (97.8 F-99.1 F) 97.8 F 97 F L Temperature Source Temporal Temporal Pulse Rate (60-100) 71 78 Pulse Location Monitor Monitor Respiratory Rate (12-18) 16 18 Respiratory rate source Observation Observation Oxygen Delivery Method Room Air Room Air Blood Pressure (90/60-120/80) 142/65 H 133/68 H Blood Pressure Mean (mm Hg) 90 89 Source Monitor Monitor Position Semi-Fowlers Sitting Blood Pressure Location Left Arm Left Arm History Since Last Visit- (Skip if this is Patient's initial visit) Have you changed medications since your No last visit? Any new allergies or adverse reactions No Had a fall/change in ADL's that may No increase risk of falls Signs or symptoms of abuse and/or No neglect since last visit Have you been in the hospital since your No last visit? Has dressing in place as prescribed Yes Yes Has compression in place as prescribed No Yes Has offloadiing in place as prescribed N/A Yes Experienced any changes in pain level or No Yes management Left Footwear Regular Shoe Regular Shoe Right Footwear Regular Shoe Regular Shoe Pain Scale: 0-10 Numeric Is Patient Pain Free? Yes Yes - Nurse 1 - General Ulcer Measurement Start: 11/26/24 13:16 Freq: Status: Active Protocol: Activity Type Activity Date Activity User E-sign Co-sign Detail Recorded Client Recorded Date Recorded By Document 11/26/24 13:16 KW [id number] 11/26/24 13:25 KW Document 12/03/24 13:22 GA [id number] 12/03/24 13:29 GA 11/26/24 12/03/24 13:16 13:22 Wound Center Nurse 1 Left Lateral Foot -Current Size (cm) - Length 1 0.9 -Current Size (cm) - Width 0.3 0.5 -Current Size (cm) - Depth 0.2 0.2 -Total Square Cm 0.3 0.45 -Date of Last Picture (Recall this 11/26/24 field) -Photo Taken No -Tunneling No -Undermining/Tunneling No -Circular Undermining No -Exudate Amt Large Medium -Exudate Type Serosanguineous Serous -Wound Margin Thickened Flat & Intact -Granulation Amt Large (67-100%) Medium (34-66%) -Granulation Quality Red Pale,[place] -Necrosis Amt Medium (34-66%) -Necrotic Tissue Type Adherent Slough -Texture (Alyce-wound Skin Appearance) Assessed,Callus Assessed -Moisture (Alyce-wound Skin Appearance) Assessed, Assessed Maceration -Color (Alyce-wound Skin Appearance) Assessed Assessed -Temperature (Alyce-wound Skin No Abnormality No Abnormality Appearance) (Pt Warm) (Pt Warm) -Tenderness on Palpation (Alyce-wound No No Skin Appearance) -Ulcer Cleansing Rinsed/ Soap and Water Irrigated with Saline -Foul Odor after Cleansing No No -Anesthetic Used 5% Lidocaine 5% Lidocaine Gel Gel Left Calf (cm) 38.5 36.5 Left Ankle (cm) 24 24 WC - Nurse 2 - General Ulcer CM Notes Start: 11/26/24 13:16 Freq: Status: Active Protocol: Activity Type Activity Date Activity User E-sign Co-sign Detail Recorded Client Recorded Date Recorded By Document 11/26/24 13:30 [id number] 11/26/24 13:36 Document 12/03/24 13:52 [id number] 12/03/24 13:54 11/26/24 12/03/24 13:30 13:52 Wound Center Nurse 2 Left Lateral Foot -Time 13:31 13:52 -Correct Patient Yes Yes -Correct Side, Site, Position Yes Yes -Correct Procedure Yes Yes -Procedure Performed Yes Yes -Type of Procedure Debridement Debridement -Clinical Debridement Subcutaneous Subcutaneous -Tissue Removed Subcutaneous Subcutaneous -Post Debridement (cm) - Length 1.0 -Post Debridement (cm) - Width 0.4 -Post Debridement (cm) - Depth 0.2 -Total Square (Post) (cm) 0.40 -Area of Debridement (cm) - Length 1.0 -Area of Debridement (cm) - Width 0.4 -Total Square (Area) (cm) 0.40 -Tunneling No No -Undermining/Tunneling No No -Circular Undermining No No -Wound/Ulcer Outcome Not Healed Not Healed -Ulcer Cleansing Rinsed/ Rinsed/ Irrigated with Irrigated with Saline Saline -Foul Odor after Cleansing No No -Bioengineered Tissue No No -Bleeding Controlled with Pressure Pressure -Treatment Response Procedure Procedure Tolerated Well Tolerated Well -Offloading Yes No -Type of Offloading Surgical Shoe -Debridement - Subq, 1st 20sq cm Yes Yes Pain Scale: 0-10 Numeric Is Patient Pain Free? Yes Yes - Nurse 3 - General Ulcer D/C NN Start: 11/26/24 13:16 Freq: Status: Active Protocol: Activity Type Activity Date Activity User E-sign Co-sign Detail Recorded Client Recorded Date Recorded By Document 11/26/24 13:51 GA [id number] 11/26/24 13:53 GA Document 12/03/24 14:07 GA [id number] 12/03/24 14:11 GA 11/26/24 12/03/24 13:51 14:07 Wound Care Center Nurse 3 Left Lateral Foot -Ulcer Cleansing Soap and Water -Foul Odor after Cleansing No No -Negative Pressure Wound Therapy N/A N/A -Other Dressing betadine betadine -Primary Dressing Covered/Secured with Dry Gauze,Dry Dry Gauze & Gauze & Roll Roll Gauze, Gauze,Secured Secured with with Tape Tape LLE -Tubular Bandage Single Layer Single Layer -Size of Tubigrip Used Size D Size D -Size D ($) 1 1 Pain Scale: 0-10 Numeric Is Patient Pain Free? Yes Yes WC - Visit Discharge Discharge Condition Stable Stable Ambulatory Status Ambulatory Ambulatory Transportation Private Auto Private Auto Medication Reconcilliation completed & No No provided to patient/care provider Clinical Summary of Care Provided Yes Yes Notes: pt verbalized understanding of wound dressing. Assessment/Plan Assessment/Plan (1) Non-pressure chronic ulcer of other part of left foot with fat layer exposed: CODE(S): L97.522 - Non-pressure chronic ulcer of other part of left foot with fat layer exposed PLAN: Patient was examined and evaluated. All findings were discussed with the patient. All questions were answered to the patient satisfaction. Excisional debridement down to and including subcutaneous tissue with a number 5 mm dermal curette to the subfifth metatarsal full-thickness wound to the left foot without incident. Predebridement measurement was 0.8 x 0.2 x 0.1 cm.. Postdebridement measurement is 0.9 x 0.4 x 0.1 cm. The left foot was clean and patted dry. Betadine paint was applied to the full-thickness wound followed by dry sterile dressing. Patient will be placed in a Tubigrip. Offloading pad was placed in the patient's athletic shoe underneath the subfifth metatarsal head left foot. He will continue to ambulate as tolerated with a walker. The patient's hyperkeratotic tissue right foot was debrided down to including normal limits with a tissue nipper and #15 blade done without incident. Especially for the procedure. No ulcer was noted after debridement. Patient will follow-up in 1 week
== END 2024-12-20 23:59 | disposition home or self-care (01) ==
LOC: WC 13:15
PROVIDERS: PCP Family Medicine; Visit Provider Podiatrist Foot & Ankle Surgery
DX: L97.522 Non-pressure chronic ulcer of other part of left foot with fat layer exposed (principal)
CPT/HCPCS: 11042

== ENCOUNTER → 2024-12-16 04:00 | Outpatient (REF) | payer MEDICARE, BC, SELFPAY ==
[2024-12-16 09:55] LABS: ALB/GLOB Ratio 1.6 RATIO (0.9-2.4); AST(SGOT) 23 U/L (<=37); Alanine Aminotransfer ALT/SGPT 12 U/L (<=46); Albumin, Serum 4.3 g/dL (3.4-4.8); Alkaline Phosphatase 99 U/L (40-129); Anion Gap 12 (5-15); BUN 29 mg/dL (4-19); BUN/Creat Ratio 23.5 RATIO (10-20); Calcium,Total 9.7 mg/dL (7.6-11.0); Carbon Dioxide 21.8 mmol/L (21.0-32.0); Chloride 105 mmol/L (98-108); Creatinine, Serum 1.25 mg/dL (0.70-1.20); EST Glomerular Filtration Rate 55 (>60); Globulin 2.6 g/dL (2.2-4.2); Glucose 124 mg/dL (70-99); Potassium 4.6 mmol/L (3.3-5.1); Protein, Total 6.9 g/dL (5.9-8.4); Sodium Level 138 mmol/L (133-145); T4 Total, Thyroxin 6.8 ug/dL (4.5-12.1); Total Bilirubin 0.67 mg/dL (0.00-1.30)
== END ==
LOC: OLS.BROOKB 04:00
PROVIDERS: PCP Family Medicine; Referring Provider Family Medicine; Visit Provider Family Medicine
DX: F03.C11 Unspecified dementia, severe, with agitation (principal); E03.9 Hypothyroidism, unspecified
CPT/HCPCS: 36415; 80053; 84436; 84443

== ENCOUNTER → 2024-12-17 | Outpatient (REF) | payer MEDICARE, BC, SELFPAY ==
[2024-12-17 13:19] LABS: ALB/GLOB Ratio 1.6 RATIO (0.9-2.4); AST(SGOT) 28 U/L (<=37); Alanine Aminotransfer ALT/SGPT 18 U/L (<=46); Albumin, Serum 4.3 g/dL (3.4-4.8); Alkaline Phosphatase 107 U/L (40-129); Anion Gap 9 (5-15); BUN 34 mg/dL (4-19); BUN/Creat Ratio 25.8 RATIO (10-20); Bilirubin, Direct 0.17 mg/dL (0.00-0.30); Calcium,Total 9.8 mg/dL (7.6-11.0); Carbon Dioxide 26.5 mmol/L (21.0-32.0); Chloride 105 mmol/L (98-108); EST Glomerular Filtration Rate 53 (>60); Globulin 2.7 g/dL (2.2-4.2); Glucose 98 mg/dL (70-99); Potassium 4.5 mmol/L (3.3-5.1); Sodium Level 141 mmol/L (133-145); Total Bilirubin 0.47 mg/dL (0.00-1.30)
== END ==
LOC: OLS.BROOKB 05:00
PROVIDERS: PCP Family Medicine; Visit Provider Family Medicine
DX: E03.9 Hypothyroidism, unspecified (principal)
CPT/HCPCS: 36415; 80053; 82248; 84439; 84443

== ENCOUNTER 2024-12-31 11:00 | Outpatient (RCR) | payer MEDICARE, BC, SELFPAY ==
[2024-12-21 00:16] VITALS: BP 133/68; PULSE 78; RESP 18; TEMP 36.1
[2024-12-24 09:23] VITALS: BP 124/63; PULSE 72; RESP 18; TEMP 35.9
--- NOTE | 2024-12-24 10:33 | PCM.WC.PN ---
History of Present Illness Date of Service: 12/24/24 Chief Complaint: Full-thickness wound left foot History of Wound: Full-thickness wound left foot Progress of Wound: Stable left foot wound Subjective Subjective Mr. Razo is a 89-year-old male presenting to wound care center today follow-up evaluation of full-thickness wound of the subfifth metatarsal left foot. He has been getting dressing changes at home facility. He did miss his appointment last week due to argument with transportation. Overall he is doing well. Denies trauma. Does mention some drainage in his sock. Denies constitutional symptoms. No other pedal complaints at this time. Objective Data Objective Data Vital Signs: Vital Signs Temp Pulse Resp BP O2 Del Method 96.6 F L 72 18 124/63 H Room Air 12/24/24 09:23 12/24/24 09:23 12/24/24 09:23 12/24/24 09:23 12/24/24 09:23 Oxygen Delivery Method Room Air Physical Exam Narrative Vascular: DP and PT pulses are faintly palpable to left lower extremity. CFT is brisk. Skin temperature gradient is warm to warm from proximal ankle to distal digit. No erythema. Neurologic: Light touch intact. Epicritic sensation is intact. Patient does respond to painful stimuli. Dermatological: Full-thickness wound to the subfifth metatarsal head of the left foot measuring 0.8 x 0.5 x 0.2 cm. There is evidence of hyperkeratotic periwound. Wound base is granular with no sign of infection. No drainage or sign of infection. Excisional debridement down to and including subcutaneous tissue with a number 5 mm dermal curette to the subfifth metatarsal full-thickness wound to the left foot without incident. Predebridement measurement was 0.5 x 0.2 x 0.1 cm. Postdebridement measurement is 0.8 x 0.5 x 0.2 cm. Musculoskeletal: No pain on palpation to full-thickness wound. No pain with calf compression. Debridement Note Debridement Note Debridement Free Text: Excisional debridement down to and including subcutaneous tissue with a number 5 mm dermal curette to the subfifth metatarsal full-thickness wound to the left foot without incident. Predebridement measurement was 0.5 x 0.2 x 0.1 cm. Postdebridement measurement is 0.8 x 0.5 x 0.2 cm. 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 Any new allergies or adverse reactions No Had a fall/change in ADL's that may No increase risk of falls Signs or symptoms of abuse and/or No neglect since last visit Have you been in the hospital since your No last visit? Has dressing in place as prescribed Yes Has compression in place as prescribed N/A Has offloadiing in place as prescribed N/A Experienced any changes in pain level or No management Left Footwear Regular Shoe Right Footwear Regular Shoe Pain Scale: 0-10 Numeric Is Patient Pain Free? Yes - Nurse 1 - General Ulcer Measurement Start: 12/24/24 09:23 Freq: Status: Active Protocol: Activity Type Activity Date Activity User E-sign Co-sign Detail Recorded Client Recorded Date Recorded By Document 12/24/24 09:23 KW [id number] 12/24/24 09:31 12/24/24 09:23 Wound Center Nurse 1 Left Lateral Foot -Current Size (cm) - Length 0.6 -Current Size (cm) - Width 0.2 -Current Size (cm) - Depth 0.4 -Total Square Cm 0.12 -Date of Last Picture (Recall this 12/24/24 field) -Undermining/Tunneling Yes -Undermining/Tunneling Starts (O'clock 9 ) -Undermining/Tunneling Ends (O'clock) 12 -Maximum Distance (cm) 0.6 -Exudate Amt Medium -Exudate Type Serosanguineous -Wound Margin Thickened -Granulation Amt Large (67-100%) -Granulation Quality [place],Red -Necrosis Amt Small (1-33%) -Necrotic Tissue Type Adherent Slough -Texture (Alyce-wound Skin Appearance) Assessed,Callus -Moisture (Alyce-wound Skin Appearance) Assessed -Color (Alyce-wound Skin Appearance) Assessed -Temperature (Alyce-wound Skin No Abnormality Appearance) (Pt Warm) -Tenderness on Palpation (Alyce-wound No Skin Appearance) -Ulcer Cleansing Rinsed/ Irrigated with Saline -Foul Odor after Cleansing No -Anesthetic Used 5% Lidocaine Gel WC - Nurse 2 - General Ulcer CM Notes Start: 12/24/24 09:23 Freq: Status: Active Protocol: Activity Type Activity Date Activity User E-sign Co-sign Detail Recorded Client Recorded Date Recorded By Document 12/24/24 09:40 CAYLA [id number] 12/24/24 09:44 CAYLA 12/24/24 09:40 Wound Center Nurse 2 -Time 09:41 -Correct Patient Yes -Correct Side, Site, Position Yes -Correct Procedure Yes -Procedure Performed Yes -Type of Procedure Debridement -Clinical Debridement Subcutaneous -Tissue Removed Subcutaneous -Post Debridement (cm) - Length 0.8 -Post Debridement (cm) - Width 0.5 -Post Debridement (cm) - Depth 0.2 -Total Square (Post) (cm) 0.40 -Area of Debridement (cm) - Length 0.8 -Area of Debridement (cm) - Width 0.5 -Total Square (Area) (cm) 0.40 -Tunneling No -Undermining/Tunneling No -Circular Undermining No -Wound/Ulcer Outcome Not Healed -Ulcer Cleansing Rinsed/ Irrigated with Saline -Foul Odor after Cleansing No -Bioengineered Tissue No -Bleeding Controlled with Pressure -Treatment Response Procedure Tolerated Well -Offloading No -Debridement - Subq, 1st 20sq cm Yes Pain Scale: 0-10 Numeric Is Patient Pain Free? Yes [id number] - Nurse 3 - General Ulcer D/C NN Start: 12/24/24 09:23 Freq: Status: Active Protocol: Activity Type Activity Date Activity User E-sign Co-sign Detail Recorded Client Recorded Date Recorded By Document 12/24/24 09:53 KW [id number] 12/24/24 09:54 KW 12/24/24 09:53 Wound Care Center Nurse 3 Left Lateral Foot -Other Dressing betadine -Primary Dressing Covered/Secured with Dry Gauze,Dry Gauze & Roll Gauze,Secured with Tape LLE -Tubular Bandage Single Layer -Size of Tubigrip Used Size D -Size D ($) 1 Pain Scale: 0-10 Numeric Is Patient Pain Free? Yes WC - Visit Discharge Discharge Condition Stable Ambulatory Status Ambulatory, Walker Transportation Private Auto Medication Reconcilliation completed & No provided to patient/care provider Clinical Summary of Care Provided Yes Assessment/Plan Assessment/Plan (1) Non-pressure chronic ulcer of other part of left foot with fat layer exposed: CODE(S): L97.522 - Non-pressure chronic ulcer of other part of left foot with fat layer exposed PLAN: Patient was examined and evaluated. All findings were discussed with the patient. All questions were answered to the patient satisfaction. Excisional debridement down to and including subcutaneous tissue with a number 5 mm dermal curette to the subfifth metatarsal full-thickness wound to the left foot without incident. Predebridement measurement was 0.5 x 0.2 x 0.1 cm. Postdebridement measurement is 0.8 x 0.5 x 0.2 cm. The left foot was clean and patted dry. Betadine paint was applied to the full-thickness wound followed by dry sterile dressing. Patient will be placed in a Tubigrip. Offloading pad was placed in the patient's athletic shoe underneath the subfifth metatarsal head left foot. He will continue to ambulate as tolerated with a walker. At this time due to the chronicity of the full-thickness wound I am recommending surgical intervention via MIS surgery to the left foot fifth metatarsal to help heal the patient's wound. Due to the patient's inability to take care of himself and is in assisted living at a facility this is the best option to prevent further breakdown once this wound eventually heals. My information/personal contact information was dispensed on orders with the patient to hopefully have the power of velvet weaver have a call with me and discussed the surgical options that I am recommending. Patient will follow-up in 1 week
--- NOTE | 2024-12-24 14:14 | WC ---
PHOTO 12/24/24 LEFT PLANTAR FT
[2024-12-31 11:30] VITALS: RESP 16; TEMP 37
--- NOTE | 2024-12-31 13:24 | PN.PCM_ITS ---
History of Present Illness Date of Service: 12/31/24 Chief Complaint: Full-thickness wound left foot History of Wound: Full-thickness wound left foot Progress of Wound: Full-thickness wound plantar left foot Subjective Subjective Patient is 89-year-old male presented with concern today for follow-up evaluation of full-thickness wound to the plantar aspect of the left foot at the level of the subfifth metatarsal head. Nursing staff stated that the patient did not have a dressing, compression wrap to the left lower extremity area. Patient seemed to be agitated during today's visit. He admits to some redness to the left foot. He denies trauma. Denies constitutional symptoms. Other pedal complaints at this time. Objective Data Objective Data Vital Signs: Vital Signs Temp Pulse Resp BP O2 Del Method 98.6 F 72 16 124/63 H Room Air 12/31/24 11:30 12/24/24 09:23 12/31/24 11:30 12/24/24 09:23 12/31/24 11:30 Oxygen Delivery Method Room Air Physical Exam Narrative Vascular: DP and PT pulses are faintly palpable to left lower extremity. CFT is brisk. Skin temperature gradient is warm to warm from proximal ankle to distal digit. Blanchable erythema to the left foot with evidence of dependent edema/erythema when elevated. Neurologic: Light touch intact. Epicritic sensation is intact. Patient does respond to painful stimuli. Dermatological: Full-thickness wound to the subfifth metatarsal head of the left foot measuring 0.5 x 0.5 x 0.7 cm. Positive probe to bone. Excisional debridement down to including subcutaneous tissue, fascia, muscle and bone using a sharp rongeur to the subfifth metatarsal head of the left foot done without incident.. Right measurement was 0.3 x 0.3 x 0.4 cm. Postdebridement measurement was 0.5 x 0.5 x 0.7 cm. Musculoskeletal: Pain on palpation to full-thickness wound. No pain with calf compression. Debridement Note Debridement Note Debridement Free Text: Excisional debridement down to including subcutaneous tissue, fascia, muscle and bone using a sharp rongeur to the subfifth metatarsal head of the left foot done without incident.. Right measurement was 0.3 x 0.3 x 0.4 cm. Postdebridement measurement was 0.5 x 0.5 x 0.7 cm. 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 (Physician/BURGLAR ALARM INSPECTOR ) ) Arrival Mode Ambulatory, Ambulatory, Walker Walker Patient Identification Verified (Name & Yes Yes ) Vital Signs Temperature (97.8 F-99.1 F) 96.6 F L 98.6 F Temperature Source Temporal Temporal Pulse Rate (60-100) 72 Pulse Location Monitor Respiratory Rate (12-18) 18 16 Respiratory rate source Observation Observation Oxygen Delivery Method Room Air Room Air Blood Pressure (90/60-120/80) 124/63 H Blood Pressure Mean (mm Hg) 83 Source Monitor Position Semi-Fowlers Blood Pressure Location Left Arm History Since Last Visit- (Skip if this is Patient's initial visit) Have you changed medications since your No No last visit? Any new allergies or adverse reactions No No Had a fall/change in ADL's that may No No increase risk of falls Signs or symptoms of abuse and/or No No neglect since last visit Have you been in the hospital since your No No last visit? Has dressing in place as prescribed Yes No Has compression in place as prescribed N/A No Has offloadiing in place as prescribed N/A N/A Experienced any changes in pain level or No No management Left Footwear Regular Shoe Regular Shoe Right Footwear Regular Shoe Regular Shoe Pain Scale: 0-10 Numeric Is Patient Pain Free? Yes Yes - Nurse 1 - General Ulcer Measurement Start: 12/24/24 09:23 Freq: Status: Active Protocol: Activity Type Activity Date Activity User E-sign Co-sign Detail Recorded Client Recorded Date Recorded By Document 12/24/24 09:23 KW [id number] 12/24/24 09:31 Document 12/31/24 11:30 [id number] 12/31/24 11:32 12/24/24 12/31/24 09:23 11:30 Wound Center Nurse 1 Left Lateral Foot -Current Size (cm) - Length 0.6 0.5 -Current Size (cm) - Width 0.2 0.4 -Current Size (cm) - Depth 0.4 0.2 -Total Square Cm 0.12 0.20 -Date of Last Picture (Recall this 12/24/24 12/31/24 field) -Photo Taken Yes -Tunneling No -Undermining/Tunneling Yes No -Undermining/Tunneling Starts (O'clock 9 ) -Undermining/Tunneling Ends (O'clock) 12 -Maximum Distance (cm) 0.6 -Circular Undermining No -Exudate Amt Medium None Present -Exudate Type Serosanguineous -Wound Margin Thickened Thickened -Granulation Amt Large (67-100%) Small (1-33%) -Granulation Quality [place],Red [place] -Slough/Fibrin No -Necrosis Amt Small (1-33%) -Necrotic Tissue Type Adherent Slough -Texture (Alyce-wound Skin Appearance) Assessed,Callus Assessed,Callus -Moisture (Alyce-wound Skin Appearance) Assessed Assessed, Maceration -Color (Alyce-wound Skin Appearance) Assessed Assessed -Temperature (Alyce-wound Skin No Abnormality No Abnormality Appearance) (Pt Warm) (Pt Warm) -Tenderness on Palpation (Alyce-wound No No Skin Appearance) -Ulcer Cleansing Rinsed/ Rinsed/ Irrigated with Irrigated with Saline Saline -Foul Odor after Cleansing No No -Anesthetic Used 5% Lidocaine 5% Lidocaine Gel Gel Lower Limb Edema Present Yes Left Calf (cm) 38.5 Left Ankle (cm) 27 - Nurse 2 - General Ulcer CM Notes Start: 12/24/24 09:23 Freq: Status: Active Protocol: Activity Type Activity Date Activity User E-sign Co-sign Detail Recorded Client Recorded Date Recorded By Document 12/24/24 09:40 CAYLA [id number] 12/24/24 09:44 JF Document 12/31/24 11:38 [id number] 12/31/24 11:47 12/24/24 12/31/24 09:40 11:38 Wound Center Nurse 2 Left Lateral Foot -Time 09:41 11:38 -Correct Patient Yes Yes -Correct Side, Site, Position Yes Yes -Correct Procedure Yes Yes -Procedure Performed Yes Yes -Type of Procedure Debridement Debridement -Clinical Debridement Subcutaneous Bone -Tissue Removed Subcutaneous Non-viable tissue -Post Debridement (cm) - Length 0.8 0.5 -Post Debridement (cm) - Width 0.5 0.5 -Post Debridement (cm) - Depth 0.2 0.7 -Total Square (Post) (cm) 0.40 0.25 -Area of Debridement (cm) - Length 0.8 0.5 -Area of Debridement (cm) - Width 0.5 0.5 -Total Square (Area) (cm) 0.40 0.25 -Tunneling No No -Undermining/Tunneling No No -Circular Undermining No No -Wound/Ulcer Outcome Not Healed Not Healed -Ulcer Cleansing Rinsed/ Rinsed/ Irrigated with Irrigated with Saline Saline -Foul Odor after Cleansing No No -Bioengineered Tissue No No -Bleeding Controlled with Pressure Pressure -Treatment Response Procedure Procedure Tolerated Well Tolerated Well -Offloading No No -Debridement - Subq, 1st 20sq cm Yes -Debridement - Bone, 1st 20sq cm Yes Pain Scale: 0-10 Numeric Is Patient Pain Free? Yes Yes WC - Nurse 3 - General Ulcer D/C NN Start: 12/24/24 09:23 Freq: Status: Active Protocol: Activity Type Activity Date Activity User E-sign Co-sign Detail Recorded Client Recorded Date Recorded By Document 12/24/24 09:53 KW [id number] 12/24/24 09:54 KW Document 12/31/24 11:52 KW [id number] 12/31/24 11:54 KW Edit Result 12/31/24 11:52 KW (1) [id number] 12/31/24 12:09 RB (1) Left Lateral Foot - Wound Comment(s) => pt appears confused Pt glucose taken and it was 102. 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 12/24/24 12/31/24 09:53 11:52 Wound Care Center Nurse 3 Left Lateral Foot -Other Dressing betadine betadine -Primary Dressing Covered/Secured with Dry Gauze,Dry Dry Gauze & Gauze & Roll Roll Gauze, Gauze,Secured Secured with with Tape Tape -Wound Comment(s) pt appears confused Pt glucose taken and it was 102 . pt given ensure and regional tanker truck driver immediately picked up pt and took to [place]. LLE -Tubular Bandage Single Layer Single Layer -Size of Tubigrip Used Size D Size D -Size D ($) 1 1 Pain Scale: 0-10 Numeric Is Patient Pain Free? Yes Yes WC - Visit Discharge Discharge Condition Stable Stable Ambulatory Status Ambulatory, Walker Walker Transportation Private Auto Medication Reconcilliation completed & No No provided to patient/care provider Clinical Summary of Care Provided Yes Yes Assessment/Plan Assessment/Plan (1) Non-pressure chronic ulcer of other part of left foot with necrosis of bone: CODE(S): L97.524 - Non-pressure chronic ulcer of other part of left foot with necrosis of bone PLAN: Patient was examined and evaluated. All findings were discussed with the patient. All questions were answered to the patient's satisfaction. Excisional debridement down to including subcutaneous tissue, fascia, muscle and bone using a sharp rongeur to the subfifth metatarsal head of the left foot done without incident.. Right measurement was 0.3 x 0.3 x 0.4 cm. Postdebridement measurement was 0.5 x 0.5 x 0.7 cm. Left lower extremities were cleaned and patted dry. There is evidence of positive probe to bone during today's visit. At this time a phone call was made to the [facility] and I spoke with the patient's nurse to make sure that he is being chaperoned when he is coming to his visit that he was agitated today. We did test his blood sugar and his blood sugar was 101 mg/dL. I did educate the nurse that if he is having any issues he is to report to the emergency room at [facility] for evaluation admission. I also discussed with the nursing staff that we need to coordinate time to discuss treatment options as well as surgery with the POA as the patient will need partial amputation and removal of the fifth metatarsal head of the left foot. Follow-up at the wound care center with Dr. Forman in 1 week.
--- NOTE | 2024-12-31 14:26 | WC ---
PHOTO 12/31/24 LEFT PLANTAR
--- NOTE | 2024-12-31 14:26 | WC ---
PHOTO LEFT PLANTAR 12/31/24
[2025-01-01 10:35] LABS: Bedside Glucose 101 mg/dL (74-106)
== END 2025-01-19 23:59 | disposition home or self-care (01) ==
LOC: WC 11:00
PROVIDERS: PCP Family Medicine; Visit Provider Podiatrist Foot & Ankle Surgery
DX: L97.524 Non-pressure chronic ulcer of other part of left foot with necrosis of bone (principal)
CPT/HCPCS: 11042; 11044; 82962

== ENCOUNTER 2024-12-31 15:45 | Emergency (ER) | payer MEDICARE, BC, SELFPAY ==
[2024-12-31 15:46] VITALS: BP 115/58; PULSE 101; RESP 17; TEMP 36.6; O2SAT 97
--- NOTE | 2024-12-31 18:23 | ED.VIS.FALL ---
HPI HPI - Fall History of Present Illness Chief Complaint: Fall Informant: patient Occured/Mechanism Occurred: Today Mechanism/Context: Yes same level fall and Yes trip Pain/Injury Pain Location: upper extremity (Right arm and elbow) Current Severity: Gone Worsened by: Nothing Relieved by: Nothing Associated Symptoms Associated Symptoms: Negative for Parasthesias, Weakness, Loss of function, Inability to ambulate, Loss of consciousness or Amnesia Narrative Narrative: Patient presents after a fall that occurred today. Patient states he tripped and fell. Patient lives in extended-care facility. Patient was found on the floor by staff. Patient complains of pain over his right arm and elbow area. Patient states that his pain has resolved since arriving to the emergency department. Patient denies any head injury or loss of consciousness. Patient denies any paresthesias or weakness. Patient is unsure of his last tetanus. Tetanus Immunization: Unknown [facility] Medical History Agitation due to dementia Closed head injury Fall Dementia Hypothyroidism Home Medications ?Medication ?Instructions ?Recorded ?Last Taken ?Type levothyroxine 137 mcg tablet 137 mcg PO DAILY 09/16/24 Unknown History acetaminophen 325 mg tablet 650 mg (2 x 325 mg) PO Q6H PRN PRN 09/19/24 Unknown Rx Pain 1-10 Or Fever>100.7 #0 tabs Allergy/AdvReac Type Severity Reaction Status Date / Time shellfish derived Allergy unknown Verified 12/31/24 15:52 Social History Smoking Status: Never smoker ROS ROS ED Constitutional Constitutional ED: Denies chills or fever(s) Eyes Eyes: Denies blurry vision or change in vision ENT ENT ED: Denies rhinorrhea or sore throat Cardiovascular Cardiovascular: Denies chest pain or palpitations Respiratory/Chest Respiratory/Chest: Denies cough or dyspnea Gastrointestinal Gastrointestinal: Denies nausea or vomiting Genitourinary Genitourinary ED: Denies dysuria or hematuria Musculoskeletal Musculoskeletal: Denies back pain or neck pain Integumentary Denies abscess or rash Neurologic Neurologic: Denies headache(s) or weakness Allergic/Immunologic Allergic/Immunologic ED: Denies mouth swelling or urticaria EXAM Physical Exam Const Vital Signs: 12/31/24 15:46 Temperature 97.9 F Temperature Source Temporal Pulse Rate 101 H Respiratory Rate 17 Blood Pressure 115/58 L Blood Pressure Mean 77 Pulse Ox 97 Positive well nourished and well developed General Appearance ED: well developed and NAD HEENT Reports normocephalic atraumatic Neck full ROM and supple Resp normal respiratory effort and clear to auscultation bilaterally Cardio regular rate and regular rhythm GI non-tender and non-distended Palpation: soft Extremity Extremity Narrative: There is a superficial skin tear over the posterior lateral aspect of the right upper arm. There is no active bleeding noted. There are other small superficial abrasions noted on the forearm. There is full range of motion of the upper and lower extremities. There is no bony crepitus or step-off. There are no deformities noted. Neuro oriented x3, CN's II-XII intact bilaterally, moves all extremities, no focal motor deficits and no sensory deficits noted [place] Coma Scale: document GCS findings Spontaneous Obeys Commands Oriented 15 Sensorium / Orientation: alert Motor Exam: strength 5/5 throughout Psych mental status grossly normal and thought process normal MDM MDM MDM Narrative Medical decision making narrative: Patient was given a tetanus booster. The skin tears were cleaned and dressed with bacitracin dressing. There is no indication for imaging at this time. Patient is not on any anticoagulants. Patient did not hit his head. Patient was instructed to keep the wound clean and dry. Patient was instructed to follow-up with his primary care physician in 5 to 7 days. Patient will be discharged back to the extended care facility. Patient understood and was agreeable with the plan. All questions were answered. Discharge Plan Triage Chief Complaint: Fall ED Provider: Booker Rodríguez Dx/Rx/DC Orders Clinical Impression: Skin tear of right upper arm without complication, Fall Instructions: ED Skin Tear (Skin Avulsion) Prescriptions: No Action levothyroxine 137 mcg tablet 137 mcg PO DAILY acetaminophen 325 mg Tablet 650 mg PO Q6H PRN PRN (Reason: Pain 1-10 Or Fever>100.7) Qty: 0 0RF Primary Care Provider: Michael Meeks Referrals: Alberto Mustafa MD [Med Staff - [employer] Specialist] - 5-7 Days Michael Meeks DO [Primary Care Provider] - 5-7 Days Print Language: Congolese Disposition Disposition: Home, Self Care
[2024-12-31] MEDS: Diphth,Pertuss(Acell),Tet Vac 0.5 ML Vial IM (18:58)
[2024-12-31 19:02] VITALS: BMI 28.0
[2024-12-31 19:45] VITALS: BP 109/74; PULSE 91; RESP 18; O2SAT 97
[2024-12-31 20:58] VITALS: BP 112/74; PULSE 89; RESP 16; TEMP 36.6; O2SAT 96
== END 2024-12-31 20:59 | disposition skilled nursing facility (03) ==
PROVIDERS: Emergency Provider Emergency Medicine; Visit Provider Emergency Medicine
DX: S41.101A Unspecified open wound of right upper arm, initial encounter (principal); F03.90 Unspecified dementia, unspecified severity, without behavioral disturbance, psychotic disturbance, mood disturbance, and anxiety; W01.0XXA Fall on same level from slipping, tripping and stumbling without subsequent striking against object, initial encounter; Y92.129 Unspecified place in nursing home as the place of occurrence of the external cause; Z23 Encounter for immunization
CPT/HCPCS: 90715; 99284

== ENCOUNTER 2025-01-01 15:11 | Inpatient (IN) | payer MEDICARE, BC, SELFPAY ==
[2025-01-01] VITALS (10 sets, daily range): BP systolic 97–152; BP diastolic 59–97; PULSE 82–123; RESP 18–36; TEMP 37.3–39.1; O2SAT 94–99; BMI 25.6
--- NOTE | 2025-01-01 15:49 | ED.VIS.FALL ---
HPI HPI - Fall History of Present Illness Chief Complaint: Fall Informant: patient and SNF Occured/Mechanism Occurred: Today Mechanism/Context: Yes same level fall Pain/Injury Pain Location: upper extremity (Bilateral forearms) Worsened by: Nothing Relieved by: Nothing Associated Symptoms Associated Symptoms: Positive for Weakness; Negative for Parasthesias, Loss of function or Loss of consciousness Narrative Narrative: Patient presents after a fall again today. Patient seen here yesterday after a fall. Patient noted skin tear on his right arm at that time. Patient denied hitting his head or having any loss of consciousness after the fall yesterday. Patient ambulated here in the emergency department without difficulty. Patient does not take any anticoagulants. Patient fell again today. Staff reports patient is more unsteady and more confused today. Patient complains of pain in both forearms. Patient does appear to be more confused today. Patient is very hard of hearing. [facility] Medical History Agitation due to dementia Closed head injury Fall Dementia Hypothyroidism Home Medications ?Medication ?Instructions ?Recorded ?Last Taken ?Type acetaminophen 500 mg capsule 1,000 mg PO BID 01/01/25 Unknown History (Mapap (acetaminophen)) acetaminophen 500 mg tablet 500 mg PO BID PRN fever or pain 01/01/25 Unknown History doxycycline hyclate 100 mg capsule 100 mg PO BID 01/01/25 Unknown History levothyroxine 150 mcg tablet 150 mcg PO DAILY 01/01/25 Unknown History meloxicam 7.5 mg tablet 7.5 mg PO DAILY 01/01/25 Unknown History sennosides 8.6 mg tablet (Kaylene-catina) 8.6 mg PO BID PRN constipation 01/01/25 Unknown History terbinafine HCl 250 mg tablet 250 mg PO DAILY 01/01/25 Unknown History Allergy/AdvReac Type Severity Reaction Status Date / Time shellfish derived Allergy unknown Verified 01/01/25 15:16 Social History Smoking Status: Never smoker ROS ROS ED Review of Systems ROS Unobtainable: due to mental condition EXAM Physical Exam Const Vital Signs: 01/01/25 15:12 01/01/25 15:14 01/01/25 15:59 Temperature 102.4 F H 102.4 F H Temperature Source Oral Oral Pulse Rate 122 H 107 H Respiratory Rate 36 H 36 H Respiratory Pattern Blood Pressure 97/64 97/64 Blood Pressure Mean 75 75 Pulse Ox 95 94 Oxygen Delivery Method Room Air Room Air Room Air 01/01/25 16:14 01/01/25 17:00 01/01/25 17:36 Temperature 100.4 F H 101.9 F H Temperature Source Oral Core Pulse Rate 98 123 H Respiratory Rate 20 H 18 Respiratory Pattern Normal Blood Pressure 107/59 L 132/80 H Blood Pressure Mean 75 97 Pulse Ox 95 97 Oxygen Delivery Method Room Air 01/01/25 18:01 01/01/25 19:00 01/01/25 20:00 Temperature 102.1 F H 99.7 F H 99.5 F H Temperature Source Core Temporal Temporal Pulse Rate 120 H 88 96 Respiratory Rate 18 18 18 Respiratory Pattern Blood Pressure 134/87 H 132/69 H 133/78 H Blood Pressure Mean 102 90 96 Pulse Ox 97 99 99 Oxygen Delivery Method Room Air Room Air Room Air 01/01/25 21:00 01/01/25 21:00 01/01/25 22:00 Temperature 99.2 F H 99.2 F H 100.8 F H Temperature Source Temporal Axillary Pulse Rate 109 H 109 H 82 Respiratory Rate 18 18 18 Respiratory Pattern Blood Pressure 135/79 H 135/79 H 139/97 H Blood Pressure Mean 97 97 111 Pulse Ox 98 98 94 Oxygen Delivery Method Room Air Room Air 01/01/25 23:00 Temperature 99.5 F H Temperature Source Temporal Pulse Rate 102 H Respiratory Rate 18 Respiratory Pattern Blood Pressure 152/84 H Blood Pressure Mean 106 Pulse Ox 95 Oxygen Delivery Method Room Air Positive well nourished and well developed General Appearance ED: well developed and NAD HEENT Reports normocephalic atraumatic Neck full ROM and supple Resp clear to auscultation bilaterally Auscultation: diminished lung sounds Cardio regular rhythm Rate: tachycardic GI non-tender and non-distended Palpation: soft Neuro oriented x3, CN's II-XII intact bilaterally, moves all extremities, no focal motor deficits and no sensory deficits noted Sensorium / Orientation: alert, orientation impaired and confused Motor Exam: strength 5/5 throughout MDM MDM MDM Narrative Medical decision making narrative: Differential diagnosis includes but is not limited to general weakness, deconditioning, electrolyte abnormality, urinary tract infection, intracranial bleeding, closed head injury, viral illness, and pneumonia. EKG will be obtained to assess for cardiac dysrhythmia and cardiac ischemia. CT scan of the brain will be obtained to assess for intracranial bleeding. Chest x-ray will be obtained to assess for pneumonia or bronchitis. CBC will be obtained to assess for leukocytosis and anemia. Comprehensive metabolic profile will be obtained to assess for electrolyte abnormality and renal function. Urinalysis will be obtained to assess for urinary tract infection and hematuria. Lactate will be obtained to assess for sepsis. Blood cultures will be obtained to assess for sepsis. Urine culture will be obtained to assess for urinary tract infection. History & Record Review Additional record(s) reviewed:: Prior ED visit and Prior labs Lab Data Attestation: I reviewed the patient's lab results. Lab results narrative: CBC was reviewed. White blood cell count was normal. Hemoglobin was slightly low at 12.8 and hematocrit was 37.4. Comprehensive metabolic profile was reviewed. BUN was 45 and creatinine was 1.95. These were increased from previous result. PT was INR and PTT were reviewed and were within normal limits. Urinalysis was reviewed. Occult blood was 250. There are 5-10 red blood cells. There is no evidence of urinary tract infection. Serum lactate was reviewed and was normal at 2.0. Repeat lactate was reviewed and was normal at 1.1. Labs: Laboratory Results - last 24 hr 01/01/25 01/01/25 01/01/25 15:25 17:18 18:05 WBC 7.0 RBC 3.87 L Hgb 12.8 L Hct 37.4 L MCV 96.6 H MCH 33.1 H MCHC 34.2 RDW Std Deviation 46.9 H RDW Coeff of Gary 13.1 Plt Count TNP MPV 11.2 Immature Gran % (Auto) 0.700 Neut % (Auto) 86.5 H Lymph % (Auto) 2.6 L [place] % (Auto) 9.8 Eos % (Auto) 0.1 Baso % (Auto) 0.3 Absolute Neuts (auto) 6.0 Absolute Lymphs (auto) 0.18 L Nucleated RBC % 0 Differential Comment SCANNED Platelet Estimate ADEQUATE ESR 42 H PT Cancelled 12.7 INR Cancelled 0.9 APTT Cancelled 24.3 Sodium 134 Potassium 4.7 Chloride 100 Carbon Dioxide 20.9 L Anion Gap 13 BUN 45 H Creatinine 1.95 H Estim Creat Clear Calc 31.30 L Est GFR (MDRD) Non-Af 32 L BUN/Creatinine Ratio 23.1 H Glucose 171 H Lactic Acid 2.0 Calcium 9.6 Total Bilirubin 0.76 AST 86 H ALT 48 H Alkaline Phosphatase 189 H Ammonia C-React Prot Ext Range 168.00 H Total Protein 6.9 Albumin 3.7 Globulin 3.2 Albumin/Globulin Ratio 1.2 Urine Color Yellow Urine Clarity Sl. Cloudy Urine pH 6.0 Ur Specific [place] 1.020 Urine Protein 30 H Urine Glucose (UA) Normal Urine Ketones 5 H Urine Occult Blood 250 H Urine Nitrite Negative Urine Bilirubin Negative Urine Urobilinogen Normal Ur Leukocyte Esterase Negative Urine RBC 5-10 SEEN Urine WBC 0-5 SEEN Ur Squamous Epith Cells 0 SEEN Urine Bacteria 0 SEEN Hyaline Casts 0-5 SEEN Urine Mucus 0 SEEN 01/01/25 01/01/25 20:19 21:54 WBC RBC Hgb Hct MCV MCH MCHC RDW Std Deviation RDW Coeff of [place] Plt Count MPV Immature Gran % (Auto) Neut % (Auto) Lymph % (Auto) [place] % (Auto) Eos % (Auto) Baso % (Auto) Absolute Neuts (auto) Absolute Lymphs (auto) Nucleated RBC % Differential Comment Platelet Estimate ESR PT INR APTT Sodium Potassium Chloride Carbon Dioxide Anion Gap BUN Creatinine Estim Creat Clear Calc Est GFR (MDRD) Non-Af BUN/Creatinine Ratio Glucose Lactic Acid 1.1 Calcium Total Bilirubin AST ALT Alkaline Phosphatase Ammonia 13.6 L C-React Prot Ext Range Total Protein Albumin Globulin Albumin/Globulin Ratio Urine Color Urine Clarity Urine pH Ur Specific [place] Urine Protein Urine Glucose (UA) Urine Ketones Urine Occult Blood Urine Nitrite Urine Bilirubin Urine Urobilinogen Ur Leukocyte Esterase Urine RBC Urine WBC Ur Squamous Epith Cells Urine Bacteria Hyaline Casts Urine Mucus ABG Data ABG results: ABG 01/01/25 22:00 Specimen Type JOON Sample Site Not entered VBG pH 7.41 VBG pO2 32 VBG HCO3 22 VBG Total CO2 23 VBG O2 Sat (Calc) 62 VBG Base Excess -3 L POC Mix VBG pCO2 Pt Tmp 35.1 L O2 Delivery Device Room Air Radiography Diagnostic Testing: Clinical Impression(s) from Imaging Studies Brain CT 01/01/25 16:20 IMPRESSION: 1. No acute intracranial finding. 2. Findings of chronic microvascular ischemic changes and age-related changes. Reading Location: [facility] Chest X-Ray 01/01/25 16:38 IMPRESSION: A prominently calcified aorta is seen, also somewhat tortuous. No evidence of cardiomegaly. Lungs appear clear of acute disease. No pleural effusion or pneumothorax is noted. No interval osseous changes noted. Prior right shoulder surgery is again seen. Reading Location: [id number] CT scan of the brain was obtained. There is no acute intracranial abnormality. There are chronic changes noted. This was interpreted by the radiologist and was also independently reviewed by myself. PA and lateral chest x-ray was obtained. There are 2 views. On my independent interpretation, lung huerta are clear. There is normal cardiac silhouette. Bony thorax is normal. There is no acute process noted. Radiologist also interpreted the x-ray and agrees. EKG Initial EKG: Attestation: I personally reviewed and interpreted this EKG as follows: Interpretation: Sinus Rhythm (With PACs with a rate of 98) and No Acute Injury Pattern Comments: EKG was obtained. On my independent interpretation, it showed a normal sinus rhythm with PACs with a rate of 98. MA interval, QRS interval, and QTc intervals were all normal. [place] was normal. There are no acute ST or T wave changes. Prior EKG tracings: available for review Prior: Unchanged (09/17/2024) Treatment and Re-Evaluation Narrative: Patient is still somewhat confused on exam. Patient was told that he would need to be admitted to the hospital. Patient appeared to understand. Patient was started on Zosyn and vancomycin. Case was discussed with the hospitalist. She recommended obtaining an ABG to assess for hypercapnia as a cause of the confusion. This was unable to be obtained so VBG was ordered. Patient's pH is normal at 7.406, pCO2 was 35.1, PO2 was 31.9, and bicarb was 22.0. On her evaluation, she noted an open wound on the plantar aspect of the left foot over the fifth MTP joint. She recommended obtaining a CT scan of the foot to assess for osteomyelitis. This was ordered. Patient will be admitted to PCU. Discharge Plan Dx/Rx/DC Orders Clinical Impression: Altered mental status, Fever, Tachycardia, Fall, Open wound of left foot, Acute kidney injury Disposition Disposition: Acute Care Hospital [facility]
[2025-01-01 16:17] LABS: Absolute Lymphocyte Count 0.18 X10^3/uL (0.83-4.51); Basophil# 0.02 X10^3/uL; Basophil% 0.3 % (0-1); Eosinophil# 0.01 X10^3/uL; Eosinophils% 0.1 % (0-5); Hematocrit 37.4 % (40-54); Hemoglobin 12.8 g/dL (13.0-16.5); Lymphocyte # 0.18 X10^3/ul (0.83-4.51); Lymphocyte % 2.6 % (19-41); Mean Corp Hgb Conc 34.2 g/dL (32-36); Mean Corpuscular Hgb 33.1 pg (27.0-32.0); Mean Corpuscular Volume 96.6 fL (80-94); Monocyte# 0.68 X10^3/uL; Monocyte% 9.8 % (0-10); NRBC Flagged by Analyzer 0 % (0-5); Neutrophil # 6.01 X10^3/uL (2.7-7.7); Neutrophil % 86.5 % (47-70); POSITIVE COUNT YES; POSITIVE DIFFERENTIAL YES; RBC Distribution Width CV 13.1 % (11.6-14.6); RBC Distribution Width SD 46.9 fl (35.1-43.9); Red Blood Count 3.87 M/mm3 (4.6-6.2)
--- NOTE | 2025-01-01 16:20 | CT_ITS ---
EXAM: BRAIN/HEAD WITHOUT CONTRAST CLINICAL HISTORY: 89 y/o M with FALL. COMPARISON: CT head 09/16/2024. TECHNIQUE: Routine CT imaging of the head without IV contrast. Additional multiplanar reformats were obtained. Dose reduction techniques were used including intermediate exposure control (AEC),iterative reconstruction technique, and/or mA and/or KV dose adjustments based on patient's size. FINDINGS: Moderate generalized cerebral and cerebellar volume loss with concordant prominence of the ventricles and subarachnoid spaces. Moderate patchy supratentorial white matter hypodensities. 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 No acute intracranial hemorrhage or herniation. The catherine- white matter interfaces are otherwise maintained. Prior ocular lens replacements. The visualized paranasal sinuses and mastoids are unremarkable. No acute calvarial fracture or scalp hematoma. CT/Brain/Head without Contrast IMPRESSION: 1. No acute intracranial finding. 2. Findings of chronic microvascular ischemic changes and age-related changes. Reading Location: [id number]
--- NOTE | 2025-01-01 16:38 | RAD_ITS ---
PROCEDURE: CHEST PA AND LATERAL 01/01/2025 REASON FOR EXAM: DYSPNEA TECHNIQUE: Frontal and lateral views of the chest. COMPARISON: AP chest of 09/16/2024. RAD/Chest PA and Lateral IMPRESSION: A prominently calcified aorta is seen, also somewhat tortuous. No evidence of cardiomegaly. Lungs appear clear of acute disease. No pleural effusion or pneumothorax is no paige. No interval osseous changes noted. Prior right shoulder surgery is again seen. Reading Location: [address]
[2025-01-01 16:42] LABS: ALB/GLOB Ratio 1.2 RATIO (0.9-2.4); AST(SGOT) 86 U/L (<=37); Alanine Aminotransfer ALT/SGPT 48 U/L (<=46); Albumin, Serum 3.7 g/dL (3.4-4.8); Alkaline Phosphatase 189 U/L (40-129); Anion Gap 13 (5-15); BUN 45 mg/dL (4-19); BUN/Creat Ratio 23.1 RATIO (10-20); Calcium,Total 9.6 mg/dL (7.6-11.0); Carbon Dioxide 20.9 mmol/L (21.0-32.0); Chloride 100 mmol/L (98-108); Creatinine, Serum 1.95 mg/dL (0.70-1.20); EST Glomerular Filtration Rate 32 (>60); Globulin 3.2 g/dL (2.2-4.2); Glucose 171 mg/dL (70-99); Potassium 4.7 mmol/L (3.3-5.1); Protein, Total 6.9 g/dL (5.9-8.4); Sodium Level 134 mmol/L (133-145); Total Bilirubin 0.76 mg/dL (0.00-1.30)
[2025-01-01 17:24] LABS: Bacteria 0 SEEN /hpf (None Seen); Mucous, Urine 0 SEEN /hpf (<or=2+); Squamous Epithelial Cells - UA 0 SEEN /hpf (0-5)
[2025-01-01] MEDS: Acetaminophen 500 MG Tablet 1000 MG PO (17:24)
[2025-01-01 17:28] LABS: Color, Urine Yellow (Yellow); Glucose, Dipstick Normal (Normal); Ketone-Dipstick 5 mg/dl (Negative); Leukocyte Esterase-Dipstick Negative /ul (Negative); Nitrite-Dipstick Negative (Negative); Occult Blood-Urine 250 /ul (Negative); Protein-Dipstick 30 mg/dl (Negative); Urine Bilirubin Dipstick Negative (Negative); Urine Clarity Sl. Cloudy (Clear); Urine Urobilinogen Normal (Normal)
[2025-01-01 18:15] LABS: Differential Comment SCANNED; Mean Platelet Vol. 11.2 fl (6.2-12.0)
[2025-01-01 18:16] LABS: Platelet Estimate ADEQUATE (ADEQ)
[2025-01-01] MEDS: 0.9% Normal Saline (1000mL) 1,000 ML 1000 ML IV (18:43)
[2025-01-01 18:49] LABS: International Normalized Ratio 0.9; Partial Thromboplast Time 24.3 Seconds (24.1-36.2); Prothrombin Time (Protime)PT. 12.7 SECONDS (11.7-14.9)
[2025-01-01 20:06] LABS: Reflex Lactate? Y
[2025-01-01 20:24] LABS: Red Blood Cells-Urine 5-10 SEEN /hpf (0-5); White Blood Cells 0-5 SEEN /hpf (0-5)
[2025-01-01 20:25] LABS: Hyaline Cast 0-5 SEEN /lpf (0-5)
[2025-01-01 20:52] LABS: Lactic Acid 1.1 mmol/L (0.0-2.0)
[2025-01-01] MEDS: Piperacil/Tazobactam 4.5 GM in 0.9% Normal Saline (100mL MB+) 100 ML IV (21:00)
--- NOTE | 2025-01-01 21:28 | HP.PCM.HOS_ITS ---
HPI - General General Date of Admission: 01/01/25 Date of Service: 01/01/25 Chief Complaint: Falls/altered mental status HPI Narrative GANESH FLORES, is a 89 M who presented to the emergency department at [facility] on 01/01/2025 due to altered mental status and fall. Patient was evaluated on 12/31/2024 in the emergency department for a fall and was able to ambulate and discharged home however he had another fall on the day of presentation. The day prior he had a skin tear on his right arm but denied hitting his head or having any loss of consciousness. He had another fall on the day of presentation as noted and he is more unsteady and more confused per staff at the facility at which she lives. He comes with paperwork that declares DNR CC. Patient is significantly hard of hearing so obtaining a history was very difficult he also seemed to be markedly confused at the time of my evaluation. Patient does appear to be infected and having fevers in the emergency department source was initially not identified however on further exam he has noted to have a foot wound consistent with cellulitis on his left lower extremity and this may be the etiology of his infection. Vital signs on presentation showed a temperature of 102.4, heart rate was 122, initial blood pressure was 97/64 with a repeat of 107/59 and then 132/80, respiratory was 36 but has since improved to 18-20 with resolution of his fever, and pulse ox was 95% on room air. CBC had normal white count with a chronic stable anemia but he had a marked left shift with an 86.5% neutrophilia. ESR was 42. Coags were normal. We obtained a VBG due to his altered mental status and pH was 7.41. Chemistry panel showed normal electrolytes with a BUN of 45 and a serum creatinine of 1.95 (baseline 1.2-1.5). Serum glucose was 171 and lactic acid was 2.0 with a repeat of 1.1. AST and ALT were elevated at 86 and 48 respectively. Ammonia level was obtained and was found to be 13.6. CRP was markedly elevated 168. His urine is consistent with concentration having a specific gravity of 1.02 but was not consistent with infection. Chest x-ray was negative for any acute findings. CT of the foot showed diffuse soft tissue edema with swelling consistent with cellulitis without fluid collection or drainable abscess and no evidence of osteomyelitis or gas forming infection. The emergency department he was treated with broad-spectrum antibiotics and IV fluids. It does appear maybe he was on outpatient doxycycline for his foot however we were not able to verify with his facility. [facility] Medical History Agitation due to dementia Closed head injury Fall Dementia Hypothyroidism Home Medications ?Medication ?Instructions ?Recorded ?Last Taken ?Type acetaminophen 500 mg capsule 1,000 mg PO BID 01/01/25 Unknown History (Mapap (acetaminophen)) acetaminophen 500 mg tablet 500 mg PO BID PRN fever or pain 01/01/25 Unknown History doxycycline hyclate 100 mg capsule 100 mg PO BID 01/01 Unknown History levothyroxine 150 mcg tablet 150 mcg PO DAILY 01/01/25 Unknown History meloxicam 7.5 mg tablet 7.5 mg PO DAILY 01/01/25 Unk nown History sennosides 8.6 mg tablet (Kaylene-catina) 8.6 mg PO BID PRN constipation 01/01/25 Unknown History terbinafine HCl 250 mg tablet 250 mg PO DAILY 01/01/25 Unknown History Allergy/AdvReac Type Severity Reaction Status Date / Time shellfish derived Allergy unknown Verified 01/01/25 15:16 Social History Smoking Status: Never smoker ROS Review of Systems ROS Unobtainable: other Details: Altered mental status and significant hearing loss Vital Signs Vital Signs Vital Signs: 01/01/25 15:12 01/01/25 15:14 01/01/25 15:59 Temperature 102.4 F H 102.4 F H Temperature Source Oral Oral Pulse Rate 122 H 107 H Respiratory Rate 36 H 36 H Respiratory Pattern Blood Pressure 97/64 97/64 Blood Pressure Mean 75 75 Pulse Ox 95 94 Oxygen Delivery Method Room Air Room Air Room Air 01/01/25 16:14 01/01/25 17:00 01/01/25 17:36 Temperature 100.4 F H 101.9 F H Temperature Source Oral Core Pulse Rate 98 123 H Respiratory Rate 20 H 18 Respiratory Pattern Normal Blood Pressure 107/59 L 132/80 H Blood Pressure Mean 75 97 Pulse Ox 95 97 Oxygen Delivery Method Room Air 01/01/25 18:01 01/01/25 19:00 01/01/25 20:00 Temperature 102.1 F H 99.7 F H 99.5 F H Temperature Source Core Temporal Temporal Pulse Rate 120 H 88 96 Respiratory Rate 18 18 18 Respiratory Pattern Blood Pressure 134/87 H 132/69 H 133/78 H Blood Pressure Mean 102 90 96 Pulse Ox 97 99 99 Oxygen Delivery Method Room Air Room Air Room Air 01/01/25 21:00 01/01/25 21:00 Temperature 99.2 F H 99.2 F H Temperature Source Temporal Pulse Rate 109 H 109 H Respiratory Rate 18 18 Respiratory Pattern Blood Pressure 135/79 H 135/79 H Blood Pressure Mean 97 97 Pulse Ox 98 98 Oxygen Delivery Method Room Air Weight Weight: 93 kg Body Mass Index (BMI) 25.6 Physical Exam Const average body habitus and well nourished; Negative for healthy appearing Constitutional Narrative: Sleepy intermittently combative, elderly, white male, lying in bed with his eyes closed, tries to hit me when I perform exam but we were able to get him calm down to complete exam, appears ill but not toxic General Appearance: uncooperative Orientation / Consciousness: confused HEENT normocephalic; Negative for hearing grossly normal bilaterally or moist oral mucous membranes HEENT Narrative: Mucous membranes appear dry Eyes conjunctivae normal Eyes Narrative: No scleral icterus Neck supple Neck Narrative: Trachea midline Resp normal respiratory effort, no retractions, no use of accessory muscles and clear to auscultation bilaterally Auscultation: Negative for rales, rhonchi or wheezes Cardio regular rhythm, S1 normal heart sound, S2 normal heart sound, no murmurs, no rub, no gallops and no clicks Cardio Narrative: Mild tachycardia GI normal to inspection, nondistended, normoactive bowel sounds, soft to palpation and non-tender Extremity no clubbing, cyanosis or edema Extremity Narrative: Decreased lean muscle mass Skin Skin Narrative: Scattered skin tears and superficial wounds with significant left lateral foot wound that appears to be chronic, area is erythematous, no significant purulent drainage noted from wound with eschar is present Neuro No oriented x3, moves all extremities and no focal motor deficits Neuro Narrative: Patient spontaneously moves all 4 extremities - Was noncommunicative with me at the time of my evaluation Psych Psych Narrative: Patient agitated intermittently Results Lab / Micro Data 01/01/25 15:25 01/01/25 15:25 Labs: Laboratory Results - last 24 hr 01/01/25 15:25: WBC 7.0, RBC 3.87 L, Hgb 12.8 L, Hct 37.4 L, MCV 96.6 H, MCH 33.1 H, MCHC 34.2, RDW Std Deviation 46.9 H, RDW Coeff of [place] 13.1, Plt Count TNP, MPV 11.2, Immature Gran % (Auto) 0.700, Neut % (Auto) 86.5 H, Lymph % (Auto) 2.6 L, [place] % (Auto) 9.8, Eos % (Auto) 0.1, Baso % (Auto) 0.3, Absolute Neuts (auto) 6.0, Absolute Lymphs (auto) 0.18 L, Nucleated RBC % 0, Differential Comment SCANNED, Platelet Estimate ADEQUATE, PT Cancelled, INR Cancelled, APTT Cancelled, Sodium 134, Potassium 4.7, Chloride 100, Carbon Dioxide 20.9 L, Anion Gap 13, BUN 45 H, Creatinine 1.95 H, Estim Creat Clear Calc 31.30 L, Est GFR (MDRD) Non-Af 32 L, BUN/Creatinine Ratio 23.1 H, Glucose 171 H, Lactic Acid 2.0, Calcium 9.6, Total Bilirubin 0.76, AST 86 H, ALT 48 H, Alkaline Phosphatase 189 H, Total Protein 6.9, Albumin 3.7, Globulin 3.2, Albumin/Globulin Ratio 1.2 01/01/25 17:18: Urine Color Yellow, Urine Clarity Sl. Cloudy, Urine pH 6.0, Ur Specific [place] 1.020, Urine Protein 30 H, Urine Glucose (UA) Normal, Urine Ketones 5 H, Urine Occult Blood 250 H, Urine Nitrite Negative, Urine Bilirubin Negative, Urine Urobilinogen Normal, Ur Leukocyte Esterase Negative, Urine RBC 5-10 SEEN, Urine WBC 0-5 SEEN, Ur Squamous Epith Cells 0 SEEN, Urine Bacteria 0 SEEN, Hyaline Casts 0-5 SEEN, Urine Mucus 0 SEEN 01/01/25 18:05: PT 12.7, INR 0.9, APTT 24.3 01/01/25 20:19: Lactic Acid 1.1 Imaging Radiology Impression Brain CT 01/01/25 16:20 IMPRESSION: 1. No acute intracranial finding. 2. Findings of chronic microvascular ischemic changes and age-related changes. Reading Location: [facility] Chest X-Ray 01/01/25 16:38 IMPRESSION: A prominently calcified aorta is seen, also somewhat tortuous. No evidence of cardiomegaly. Lungs appear clear of acute disease. No pleural effusion or pneumothorax is noted. No interval osseous changes noted. Prior right shoulder surgery is again seen. Reading Location: [id number] Assessment & Plan Assessment/Plan (1) Open wound of left foot: (2) Acute kidney injury: (3) Tachycardia: (4) Fever: (5) Toxic metabolic encephalopathy: (6) Hyperglycemia: PLAN: Plan Open left foot wound with cellulitis - Suspect this is the etiology of his fever and tachycardia - UA and chest x-ray are not suggestive of infection - Blood and urine cultures are pending - Wound cultures are ordered - MRSA wound - Consult podiatry - ESR and CRP are elevated - Wound care nurse consult - Antibiotics for now with vancomycin and Zosyn - Stop outpatient doxycycline - As needed Tylenol available for fever Hyperglycemia without diagnosis of DM-2 - did have A1c done earlier this year on 09/22/2024 and was found to be 6.1 - Will repeat hemoglobin A1c now that markedly elevated blood sugar - Suspect related to acute infection and A1c will be similar to previous but will reassess given his foot wound and elevations on presentation Toxic/metabolic encephalopathy - Suspect related to the above and exacerbated by his hearing loss at baseline - CT of the brain did not show any acute findings but did show age-related and chronic microvascular ischemic changes CASEY - Baseline serum creatinine is between 1.2 and 1.5 - Currently 1.95 - IV fluids as ordered - Avoid nephrotoxins - Hold home meloxicam - will hold home terbinafine Generalized weakness/debility - Consult PT/OT and speech therapy - Case management/social work consultation for assistance with discharge planning - Patient currently is in a facility Hypothyroidism - Check a.m. TSH - Levothyroxine to continue Onychomycosis - Hold home terbinafine given worsening renal function and acute illness Constipation - Continue home as needed sennosides Dementia-unclear type - Suspect worsened delirium while hospitalized next-could consider as needed risperidone if patient has agitation issues - Will start melatonin 10 mg scheduled at night to help avoid ing DVT prophylaxis - Heparin 5000 units every 8 subcu CODE STATUS - DNR CC per documentation from nursing facility - ED is trying to clarify who has guardianship Charges/Coding Visit Charges Inpatient E&M: 52952 Init Hosp L3
[2025-01-01] MEDS: Vancomycin HCl 2,000 MG in 0.9% Normal Saline (500mL Bag) 500 ML 250 MG IV (21:53)
[2025-01-01 22:04] LABS: Blood Gas Specimen Type VEN; O2 Delivery Device Room Air; SITE Not entered; VBG BASE EXCESS -3 mmol/L (-1.0-3.5); VBG Bicarbonate 22 mmol/L (22-26); VBG PO2 32 mmHg (25-40); VBG SO2 62 % (50-70); VBG TCO2 23 mmol/L (23-33); VBG pCO2 35.1 mmHg (41-51); VBG pH 7.41 (7.32-7.42)
[2025-01-01 22:24] LABS: Ammonia 13.6 umol/L (16-60)
--- NOTE | 2025-01-01 22:40 | CT_ITS ---
PROCEDURE: EXTREMITY LOWER WITHOUT CONTRA 01/01/2025 REASON FOR EXAM: LEFT FOOT WOUND TECHNIQUE: Axial CT images of the left foot obtained with intravenous contrast. Coronal and Sagittal reconstruction series were provided. CONTRAST: None. One or more dose reduction techniques were used (e.g., Automated exposure control, adjustment of the mA and/or kV according to patient size, use of iterative reconstruction technique). RADIATION DOSE SUMMARY: CTDlvol: 15.35 mGy DLP: 1110 mGycm COMPARISON: None. FINDINGS: Diffuse soft tissue edema and swelling, probably cellulitis. No fluid collection or drainable abscess formation is seen. No CT evidence of osteomyelitis or gas-forming infection. 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 Calcaneal spur formation. Enthesophyte formation at the calcaneal insertion of Achilles tendon. Mild osteopenia of the visualized bones. Degenerative joint disease. No fracture or dislocation is seen. No lytic or blastic bone lesion is noted. CT/Extremity Lower without Contra IMPRESSION: 1. Diffuse soft tissue edema and swelling, probably cellulitis. 2. No fluid collection or drainable abscess formation is seen. 3. No CT evidence of osteomyelitis or gas-forming infection. 4. 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 5. Hallux valgus deformity. 6. Hammertoes deformities. 7. Calcaneal spur formation. 8. Enthesophyte formation at the calcaneal insertion of Achilles tendon. Reading [facility]
[2025-01-01 23:48] LABS: Erythrocyte Sedimentation Rate 42 mm/hr (0-20)
[2025-01-02] VITALS (9 sets, daily range): BP systolic 125–144; BP diastolic 58–109; PULSE 80–124; RESP 16–24; TEMP 36.4–38.3; O2SAT 92–98; BMI 24.7
--- OUTSIDE RECORDS SUMMARY | 2025-01-02 00:03 | XMS RPT_ITS | CCD ---
Author Organization 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 Alberto Marrufo Primary Care Provider Moon RIVERO, Dr. Alberto Marrufo Attending Provider Moon RIVERO, Dr. Alberto Marrufo Referring Provider Dr. Maliha Youngblood DO Emergency Provider Meeks DO, Dr. Solitario Admit Provider Unavail able Meeks DO, Dr. Solitario Other Provider Unavail able Dr. Demetrius Nash DO Attending Provider Dr. Kamari Lockhart MD Attending Provider Dr. Demetrius Nash DO Other Provider Constantino RIVERO, Dr. Rodriguez Attending Provider Unavail able Dickson BRIGGS, Dr. Stanley Attending Provider Dr. Michael Meeks DO Referring Provider Alberto Mustafa Primary Care Unavailable Altaf Meeks Admitting Unavailable Altaf Meeks Consulting Unavailable Demetrius Nash Attending Unavailable Demetrius Nash Consulting Unavailable Alberto Mustafa Primary Care Unavailable Kamari Lockhart Attending UnavailMichael Gutierrez Attending Unavailable Alberto Mustafa Primary Care Unavailable Alberto Mustafa Attending Unavailable Alberto Mustafa Primary Care Unavailable Alberto Mustafa Referring Unavailable Michael Meeks Referring Unavailable Jaden Forman Attending Unavailable Alberto Mustafa Primary Care Unavailable Michael Meeks Referring Unavailable Jaden Forman Attending Unavailable Alberto Mustafa Primary Care Unavailable Michael Meeks Attending Unavailable Alberto Mustafa Primary Care Unavailable Michael Meeks Referring Unavailable Michael Meeks Attending Unavailable Schindonta, Alberto E Primary Care Unavailable Michael Meeks Attending Unavailable Schinner, Alberto E Primary Care Unavailable Schinner, Alberto E Attending Unavailable Schinner, Alberto E Primary Care Unavailable Schinner, Alberto E Attending Unavailable Schinner, Alberto E Primary Care Unavailable Schinner, Alberto E Referring Unavailable Schinner, Alberto E Attending Unavailable Schinner, Alberto E Primary Care Unavailable Schinner, Alberto E Referring Unavailable Altaf Meeks Admitting Unavailable Schinner, Alberto E Primary Care Unavailable Altaf Meeks Consulting Unavailable Demetrius Nash Attending Unavailable Michael Meeks Attending Unavailable Schdoreen, Alberto E Primary Care Unavailable Michael Meeks Attending Unavailable Schdoreen, Alberto E Primary Care Unavailable Michael Meeks Referring Unavailable Jaden Forman Attending Unavailable Schinner, Alberto E Primary Care Unavailable Michael Meeks Attending Unavailable Schinner, Alberto E Primary Care Unavailable Michael Meeks Attending Unavailable Schinner, Alberto E Primary Care Unavailable Schindonta, Alberto E Attending Unavailable Schindonta, Alberto E Primary Care Unavailable Schdoreen, Alberto E Referring Unavailable Michael Meeks Referring Unavailable Jaden Forman Attending Unavailable Schinner, Alberto E Primary Care Unavailable Schinner, Alberto E Attending Unavailable Schinner, Alberto E Primary Care Unavailable Altaf Meeks Attending Unavailable Dr. Alberto Mustafa MD Primary Care Provider Dr. Alberto Mustafa MD Attending Provider Dr. Alberto Mustafa MD Referring Provider Dr. Michael Meeks MD Referring Provider Unavail able Dr. Booker Rodríguez DO Emergency Provider Dr. Michael Meeks DO Primary Care Provider [phone] Allergies Allergy Classification Reported Allergen(s) Allergy Type Date of Onset Reaction(s) Facility (1 source) Shellfish Drug allergy (disorder) 09-16-2024 [facility] Repository Medications Current Medications Medication Drug Class(es) Dates Sig (Normalized) Sig (Original) acetaminophen 325 mg oral tablet (7 sources) Start: 09-19-2024 take 1-10 tablets by mouth every six hours as needed for pain Acetaminophen 325 mg Tablet Active 650 mg PO EVERY 6 HOURS NEEDED as needed for Pain 1-10 Or Fever>100.7 0 September 19, 2024 1:00am levothyroxine sodium 0.137 mg oral tablet (7 sources) l-Thyroxine Start: 09-16-2024 take 1 tablet by mouth once daily Levothyroxine 137 mcg tablet Active 137 ug PO DAILY September 16, 2024 1:00am Problems Active Problems Problem Classification Problem Date Documented Da te Episodic/Chronic Cardiac dysrhythmias (1 source) Unspecified atrial fibrillation; Translations: [Unspecified atrial fibrillation] Onset: 10-21-2024 Chronic Chronic ulcer of skin (20 sources) Non-pressure chronic ulcer of other part of left foot with fat layer exposed; Translations: [Non-pressure chronic ulcer of other part of left foot with fat layer exposed] Onset: 12-21-2024 10-09-2024 Chronic Delirium, dementia, and amnestic and other cognitive disorders (20 sources) Agitation due to dementia; Translations: [Agitation due to dementia] Onset: 12-24-2024 09-24-2024 Chronic Disorders of lipid metabolism (1 source) Hyperlipidemia, unspecified; Translations: [Hyperlipidemia, unspecified] Onset: 06-23-2024 Chronic E Codes: Fall (16 sources) Fall; Translations: [Unspecified fall, initial encounter] Onset: 09-20-2024 09-24-2024 Episodic Open wounds of extremities (1 source) Tear of skin; Translations: [Laceration without foreign body of right upper arm, initial encounter] 12-31-2024 Episodic Other injuries and conditions due to external causes (14 sources) Closed injury of head; Translations: [Unspecified injury of head, initial encounter] 09-24-2024 Episodic Other screening for suspected conditions (not mental disorders or infectious disease) (8 sources) Raised cardiac enzyme or marker; Translations: [Other specified abnormal findings of blood chemistry] Onset: 09-20-2024 09-17-2024 Episodic Residual codes; unclassified (1 source) Disorientation, unspecified; Translations: [Disorientation, unspecified] Onset: 10-02-2024 Episodic Superficial injury; contusion (7 sources) Contusion of lower back; Translations: [Contusion of lower back and pelvis, initial encounter] 09-16-2024 Episodic Thyroid disorders (17 sources) Hypothyroidism; Translations: [Hypothyroidism, unspecified] Onset: 05-22-2024 09-24-2024 Chronic Unclassified (2 sources) Unspecified dementia, severe, with agitation; Translations: [Unspecified dementia, severe, with agitation] Onset: 12-12-2024 Unclassified (1 source) Unspecified dementia, unspecified severity, with agitation; Translations: [Unspecified dementia, unspecified severity, with agitation] Onset: 09-20-2024 Past or Other Problems Problem Classification Problem Date Documented Da te Episodic/Chronic Other injuries and conditions due to external causes (1 source) Unspecified injury of head, sequela; Translations: [Unspecified injury of head, sequela] Onset: 09-20-2024 Episodic Residual codes; unclassified (1 source) Other amnesia; Translations: [Other amnesia] Onset: 05-22-2024 Episodic Results Test Name Value Interpretation Reference Range Facility Anion gap in Serum or Plasma Ordered By: Michael Meeks on 12-17-2024 Anion gap [Moles/Vol] 9 mmol/L 5-15 [facility] BUN/creatinine ratioOrdered By: Michael Meeks on 12-17-2024 Urea nitrogen/Creatinine [Mass ratio] 25.8 mg/mg High 10-20 [facility] Bilirubin directOrdered By: Michael Meeks on 12-17-2024 Bilirubin.direct [Mass/Vol] 0.17 mg/dL 0.00-0.30 [facility] Bilirubin, totalOrdered By: Michael Meeks on 12-17-2024 Bilirubin [Mass/Vol] 0.47 mg/dL 0.00-1.30 [facility] Carbon dioxide, total [Moles /volume] in Central venous bloodOrdered By: Michael Meeks on 12-17-2024 CO2 [Moles/Vol] 26.5 mmol/L 21.0-32.0 [facility] Chloride assayOrdered By: Yfn Meeks on 12-17-2024 Chloride [Moles/Vol] 105 mmol/L 98-108 [facility] Glomerular filtration rate ( GFR) estimation/1.73 sq m using serum, plasma, or whole bOrdered By: Michael Meeks on 12-17-2024 GFR/1.73 sq M.predicted among non-blacks MDRD (S/P/Bld) [Vol rate/Area] 53 mL/min/{1.73_m2} Low >60 [facility] Comment on above: mL/min/1.73m2 CKD-EP I Creatinine Equation (2020) Laboratory - Chemistry and C hemistry - challengeOrdered By: Michael Meeks on 12-17-2024 AST [Catalytic activity/Vol] 28 U/L <38 [facility] Potassium measurement (mass/ volume)Ordered By: Michael Meeks on 12-17-2024 Potassium (Unsp spec) [Mass/Vol] 4.5 mmol/L 3.3-5.1 [facility] Serum creatinine measurement (mass/volume)Ordered By: Michael Meeks on 12-17-2024 Creatinine [Mass/Vol] 1.30 mg/dL High 0.70-1.20 [facility] Serum globulin measurementOr dered By: Michael Meeks on 12-17-2024 Globulin (S) [Mass/Vol] 2.7 g/dL 2.2-4.2 [facility] Serum glucose measurement (m ass/volume)Ordered By: Michael Meeks on 12-17-2024 Glucose [Mass/Vol] 98 mg/dL 70-99 [facility] Serum or plasma alanine meraz otransferase (ALT) measurementOrdered By: Michael Meeks on 12-17-2024 ALT [Catalytic activity/Vol] 18 U/L <47 [facility] Serum or plasma albumin ana urement (mass/volume)Ordered By: Michael Meeks on 12-17-2024 Albumin [Mass/Vol] 4.3 g/dL 3.4-4.8 [facility] Serum or plasma albumin/glob ulin mass ratioOrdered By: Michael Meeks on 12-17-2024 Albumin/Globulin [Mass ratio] 1.6 {ratio} 0.9-2.4 [facility] Serum or plasma alkaline keenan sphatase measurementOrdered By: Michael Meeks on 12-17-2024 ALP [Catalytic activity/Vol] 107 U/L 40-129 [facility] Serum or plasma calcium ana urement (mass/volume)Ordered By: Michael Meeks on 12-17-2024 Calcium [Mass/Vol] 9.8 mg/dL 7.6-11.0 [facility] Serum or plasma urea nitroge n measurement (mass/volume)Ordered By: Michael Meeks on 12-17-2024 Urea nitrogen [Mass/Vol] 34 mg/dL High 4-19 [facility] Sodium levelOrdered By: Ruslan Meeks on 12-17-2024 Sodium [Moles/Vol] 141 mmol/L 133-145 [facility] T4 freeOrdered By: Michael sanchez on 12-17-2024 Free T4 [Mass/Vol] 1.30 ng/dL 0.76-1.46 [facility] TSH DL <= 0.005 mIU/L QnOrde red By: Michael Meeks on 12-17-2024 TSH Qn 2.390 uIU/mL 0.300-4.200 [facility] Total proteinOrdered By: Amrik Meeks on 12-17-2024 Protein [Mass/Vol] 7.0 g/dL 5.9-8.4 [facility] Anion gap in Serum or Plasma Ordered By: Michael Meeks on 12-16-2024 Anion gap [Moles/Vol] 12 mmol/L 5-15 [facility] BUN/creatinine ratioOrdered By: Michael Meeks on 12-16-2024 Urea nitrogen/Creatinine [Mass ratio] 23.5 mg/mg High 10-20 [facility] Bilirubin, totalOrdered By: Michael Meeks on 12-16-2024 Bilirubin [Mass/Vol] 0.67 mg/dL 0.00-1.30 [facility] Carbon dioxide, total [Moles /volume] in Central venous bloodOrdered By: Michael Meeks on 12-16-2024 CO2 [Moles/Vol] 21.8 mmol/L 21.0-32.0 [facility] Chloride assayOrdered By: Yfn Meeks on 12-16-2024 Chloride [Moles/Vol] 105 mmol/L 98-108 [facility] Glomerular filtration rate ( GFR) estimation/1.73 sq m using serum, plasma, or whole bOrdered By: Michael Meeks on 12-16-2024 GFR/1.73 sq M.predicted among non-blacks MDRD (S/P/Bld) [Vol rate/Area] 55 mL/min/{1.73_m2} Low >60 [facility] Comment on above: mL/min/1.73m2 CKD-EP I Creatinine Equation (2020) Laboratory - Chemistry and C hemistry - challengeOrdered By: Michael Meeks on 12-16-2024 AST [Catalytic activity/Vol] 23 U/L <38 [facility] Potassium measurement (mass/ volume)Ordered By: Michael Meeks on 12-16-2024 Potassium (Unsp spec) [Mass/Vol] 4.6 mmol/L 3.3-5.1 [facility] Serum creatinine measurement (mass/volume)Ordered By: Michael Meeks on 12-16-2024 Creatinine [Mass/Vol] 1.25 mg/dL High 0.70-1.20 [facility] Serum globulin measurementOr dered By: Michael Meeks on 12-16-2024 Globulin (S) [Mass/Vol] 2.6 g/dL 2.2-4.2 [facility] Serum glucose measurement (m ass/volume)Ordered By: Michael Meeks on 12-16-2024 Glucose [Mass/Vol] 124 mg/dL High 70-99 [facility] Serum or plasma alanine meraz otransferase (ALT) measurementOrdered By: Michael Meeks on 12-16-2024 ALT [Catalytic activity/Vol] 12 U/L <47 [facility] Serum or plasma albumin ana urement (mass/volume)Ordered By: Michael Meeks on 12-16-2024 Albumin [Mass/Vol] 4.3 g/dL 3.4-4.8 [facility] Serum or plasma albumin/glob ulin mass ratioOrdered By: Michael Meeks on 12-16-2024 Albumin/Globulin [Mass ratio] 1.6 {ratio} 0.9-2.4 [facility] Serum or plasma alkaline keenan sphatase measurementOrdered By: Michael Meeks on 12-16-2024 ALP [Catalytic activity/Vol] 99 U/L 40-129 [facility] Serum or plasma calcium ana urement (mass/volume)Ordered By: Michael Meeks on 12-16-2024 Calcium [Mass/Vol] 9.7 mg/dL 7.6-11.0 [facility] Serum or plasma urea nitroge n measurement (mass/volume)Ordered By: Michael Meeks on 12-16-2024 Urea nitrogen [Mass/Vol] 29 mg/dL High 4-19 [facility] Sodium levelOrdered By: Ruslan Meeks on 12-16-2024 Sodium [Moles/Vol] 138 mmol/L 133-145 [facility] TSH DL <= 0.005 mIU/L QnOrde red By: Michael Meeks on 12-16-2024 TSH Qn 2.130 uIU/mL 0.300-4.200 [facility] ThyroxineOrdered By: Michael mccallum on 12-16-2024 T4 [Mass/Vol] 6.8 ug/dL 4.5-12.1 [facility] Total proteinOrdered By: Amrik Meeks on 12-16-2024 Protein [Mass/Vol] 6.9 g/dL 5.9-8.4 [facility] Bilirubin directOrdered By: Michael Meeks on 11-26-2024 Bilirubin.direct [Mass/Vol] 0.24 mg/dL 0.00-0.30 [facility] Bilirubin, totalOrdered By: Michael Meeks on 11-26-2024 Bilirubin [Mass/Vol] 0.67 mg/dL 0.00-1.30 [facility] Laboratory - Chemistry and C hemistry - challengeOrdered By: Michael Meeks on 11-26-2024 AST [Catalytic activity/Vol] 21 U/L <38 [facility] Serum globulin measurementOr dered By: Michael Meeks on 11-26-2024 Globulin (S) [Mass/Vol] 3.0 g/dL 2.2-4.2 [facility] Serum or plasma alanine meraz otransferase (ALT) measurementOrdered By: Michael Meeks on 11-26-2024 ALT [Catalytic activity/Vol] 11 U/L <47 [facility] Serum or plasma albumin ana urement (mass/volume)Ordered By: Michael Meeks on 11-26-2024 Albumin [Mass/Vol] 4.3 g/dL 3.4-4.8 [facility] Serum or plasma alkaline keenan sphatase measurementOrdered By: Michael Meeks on 11-26-2024 ALP [Catalytic activity/Vol] 104 U/L 40-129 [facility] Total proteinOrdered By: Amrik Meeks on 11-26-2024 Protein [Mass/Vol] 7.2 g/dL 5.9-8.4 [facility] Anion gap in Serum or Plasma Ordered By: Michael Meeks on 11-24-2024 Anion gap [Moles/Vol] 10 mmol/L 5-15 [facility] BUN/creatinine ratioOrdered By: Michael Meeks on 11-24-2024 Urea nitrogen/Creatinine [Mass ratio] 20.8 mg/mg High 10-20 [facility] Carbon dioxide, total [Moles /volume] in Central venous bloodOrdered By: Michael Meeks on 11-24-2024 CO2 [Moles/Vol] 23.8 mmol/L 21.0-32.0 [facility] Chloride assayOrdered By: Yfn Meeks on 11-24-2024 Chloride [Moles/Vol] 102 mmol/L 98-108 [facility] Glomerular filtration rate ( GFR) estimation/1.73 sq m using serum, plasma, or whole bOrdered By: Michael Meeks on 11-24-2024 GFR/1.73 sq M.predicted among non-blacks MDRD (S/P/Bld) [Vol rate/Area] 46 mL/min/{1.73_m2} Low >60 [facility] Comment on above: mL/min/1.73m2 CKD-EP I Creatinine Equation (2020) Potassium measurement (mass/ volume)Ordered By: Michael Meeks on 11-24-2024 Potassium (Unsp spec) [Mass/Vol] 4.9 mmol/L 3.3-5.1 [facility] Serum creatinine measurement (mass/volume)Ordered By: Michael Meeks on 11-24-2024 Creatinine [Mass/Vol] 1.47 mg/dL High 0.70-1.20 [facility] Serum glucose measurement (m ass/volume)Ordered By: Michael Meeks on 11-24-2024 Glucose [Mass/Vol] 142 mg/dL High 70-99 [facility] Serum or plasma calcium ana urement (mass/volume)Ordered By: Michael Meeks on 11-24-2024 Calcium [Mass/Vol] 9.8 mg/dL 7.6-11.0 [facility] Serum or plasma urea nitroge n measurement (mass/volume)Ordered By: Michael Meeks on 11-24-2024 Urea nitrogen [Mass/Vol] 31 mg/dL High 4-19 [facility] Sodium levelOrdered By: Ruslan Meeks on 11-24-2024 Sodium [Moles/Vol] 136 mmol/L 133-145 [facility] T4 freeOrdered By: Michael sanchez on 11-05-2024 Free T4 [Mass/Vol] 0.90 ng/dL 0.76-1.46 [facility] TSH DL <= 0.005 mIU/L QnOrde red By: Michael Meeks on 11-05-2024 Thyroid Stimulating Hormone (TSH) 6.920 uIU/mL High 0.300-4.200 [facility] TSH Qn 6.920 uIU/mL High 0.300-4.200 [facility] Anion gap in Serum or Plasma Ordered By: Michael Meeks on 10-27-2024 Anion gap [Moles/Vol] 10 mmol/L 5-15 [facility] BUN/creatinine ratioOrdered By: Michael Meeks on 10-27-2024 Urea nitrogen/Creatinine [Mass ratio] 17.0 mg/mg 10-20 [facility] Carbon dioxide, total [Moles /volume] in Central venous bloodOrdered By: Michael Meeks on 10-27-2024 CO2 [Moles/Vol] 23.9 mmol/L 21.0-32.0 [facility] Chloride assayOrdered By: Yfn Meeks on 10-27-2024 Chloride [Moles/Vol] 106 mmol/L 98-108 [facility] GFR/1.73 sq M.predicted mehran g non-blacks MDRD (S/P/Bld) [Vol rate/Area]Ordered By: Michael Meeks on 10-27-2024 Estimated GFR (MDRD) Non-Af Amer 54 Low >60 [facility] Comment on above: mL/min/1.73m2 CKD-EP I Creatinine Equation (2020) Glomerular filtration rate ( GFR) estimation/1.73 sq m using serum, plasma, or whole bOrdered By: Michael Meeks on 10-27-2024 GFR/1.73 sq M.predicted among non-blacks MDRD (S/P/Bld) [Vol rate/Area] 54 mL/min/{1.73_m2} Low >60 [facility] Comment on above: mL/min/1.73m2 CKD-EP I Creatinine Equation (2020) Potassium (Unsp spec) [Mass/ Vol]Ordered By: Michael Meeks on 10-27-2024 Potassium [Moles/Vol] 4.6 mmol/L 3.3-5.1 [facility] Potassium measurement (mass/ volume)Ordered By: Michael Meeks on 10-27-2024 Potassium (Unsp spec) [Mass/Vol] 4.6 mmol/L 3.3-5.1 [facility] Serum creatinine measurement (mass/volume)Ordered By: Michael Meeks on 10-27-2024 Creatinine [Mass/Vol] 1.28 mg/dL High 0.70-1.20 [facility] Serum glucose measurement (m ass/volume)Ordered By: Michael Meeks on 10-27-2024 Glucose [Mass/Vol] 161 mg/dL High 70-99 [facility] Serum or plasma calcium ana urement (mass/volume)Ordered By: Michael Meeks on 10-27-2024 Calcium [Mass/Vol] 9.3 mg/dL 7.6-11.0 [facility] Serum or plasma urea nitroge n measurement (mass/volume)Ordered By: Michael Meeks on 10-27-2024 Urea nitrogen [Mass/Vol] 22 mg/dL High 4-19 [facility] Sodium levelOrdered By: Ruslan Meeks on 10-27-2024 Sodium [Moles/Vol] 140 mmol/L 133-145 [facility] History AND Physic joe 10-09-2024 Wound Ctr History & Physical [facility] [address] [place] [address] H P Exam - Wound Care 10/09/24 1419 MR#: [id number] Acct: [id number] Name: GANESH FLORES Rep #: [id number] : 1935 88 From: Jaden Forman DPM PCP: Dr. Alberto Mustafa MD Status:REG RCR Location: History of Present Illness Date of Service: 10/09/24 Chief Complaint: Full-thickness wound left foot History of Wound: Full-thickness wound left foot Progress of Wound: Mr Flores is a 88-year-old male presenting to the wound care center today for evaluation of full- thickness wound to the plantar aspect left foot. Patient currently resides at a a facility where he is treated by medical staff. When asked about the full-thickness wound the patient was unsure how it got there. Patient also relates to bumping his head in the shower after falling. He was seen by emergency room department at [facility] and evaluated and discharged. He states the wound has been present but does not know how long. He denies any trauma to the area. Denies constitutional symptoms. No other pedal complaints at this time. [facility] Medical History Agitation due to dementia Closed head injury Fall Dementia Hypothyroidism Home Medications ???Medication ???Instructions ???Recorded ???Last Taken ???Type levothyroxine 137 mcg tablet 137 mcg PO DAILY 09/16/24 Unknown History acetaminophen 325 mg tablet 650 mg (2 x 325 mg) PO Q6H PRN PRN 09/19/24 Unknown Rx Pain 1-10 Or Fever>100.7 #0 tabs Allergy/AdvReac Type Severity Reaction Status Date / Time shellfish derived Allergy unknown Verified 09/16/24 12:27 Social History Smoking Status: Never smoker Physical Exam Narrative Vascular: DP and PT pulses are faintly palpable to left lower extremity. CFT is brisk. Skin temperature gradient is warm to warm from proximal ankle to distal digit. No erythema. Neurologic: Light touch intact. Epicritic sensation is intact. Patient does respond to painful stimuli. Dermatological: Full-thickness wound to the subfifth metatarsal head of the left foot measuring 1.0 x 0.7 x 0.2 cm. Wound base is granular. No drainage or sign of infection. Evidence of hyperkeratotic periwound. Excisional debridement down to and including subcutaneous tissue with a number 5 mm dermal curette to the subfifth metatarsal full-thickness wound to the left foot without incident. Predebridement measurement was 0.7 x 0.5 x 0.1 cm. Postdebridement measurement is 1.0 x 0.7 x 0.2 cm. Musculoskeletal: Muscle strength is 5 out of 5 to left lower extremity. No pain on palpation to full-thickness wound. No pain with calf compression. Debridement Note Debridement Note Debridement Free Text: Excisional debridement down to and including subcutaneous tissue with a number 5 mm dermal curette to the subfifth metatarsal full-thickness wound to the left foot without incident. Predebridement measurement was 0.7 x 0.5 x 0.1 cm. Postdebridement measurement is 1.0 x 0.7 x 0.2 cm. Post-Debridement Measurements and Additional Note: Post-Debridement Measurements/Treatme nt - Nurse 1 - General Ulcer Assessment Start: 10/08/24 11:57 Freq: Status: Active Protocol: DANITA Activity Type Activity Date Activity User E-sign Co-sign Detail Recorded Client Recorded Date Recorded By Document 10/08/24 11:57 MD [id number] 10/08/24 12:07 MD 10/08/24 11:57 WC - Today's Visit Information Type of service Initial Visit Arrival Mode Ambulatory, Walker Accompanied by self Patient Identification Verified (Name Yes ) Safety Precautions Fall Prevention Vital Signs Temperature (97.8 F-99.1 F) 97 F L Temperature Source Temporal Pulse Rate (60-100) 67 Pulse Location Monitor Respiratory Rate (12-18) 18 Respiratory rate source Observation Oxygen Delivery Method Room Air Blood Pressure (90/60-120/80) 149/68 H Blood Pressure Mean 95 Source Monitor Position Sitting Blood Pressure Location Left Arm History Since Last Visit- (Skip if this is Patient's initial visit) Left Footwear Regular Shoe Right Footwear Regular Shoe Pain Scale: 0-10 Numeric Is Patient Pain Free? Yes - Nurse 1 - General Ulcer Measurement Start: 10/08/24 11:57 Freq: Status: Active Protocol: Activity Type Activity Date Activity User E-sign Co-sign Detail Recorded Client Recorded Date Recorded By Document 10/08/24 11:57 MD [id number] 10/08/24 12:07 MD 10/08/24 11:57 Wound Center Nurse 1 Left Lateral Foot -Current Size (cm) - Length 1.4 -Current Size (cm) - Width 1.0 -Current Size (cm) - Depth 0.3 -Total Square Cm 1.40 -Date of Last Picture (Recall this / (more content not included)... Normal [facility] T4 freeOrdered By: Michael sanchez on 09-24-2024 Free T4 [Mass/Vol] 1.30 ng/dL 0.76-1.46 [facility] L499.0042on 09-23-2024 Trop T High Sen 77 ng/L Invalid Interpretation Code <=22 [facility] Comment on above: Result Comment: DIS BOY AMENDED REPORT 09/23/24431 Trop T HS 2HR previously reported as: 77 *H ng/L Performed By: #### L 499.0042 #### [facility] [address] [place], [address] L499.0043on 09-23-2024 Trop T High Sen 69 ng/L Invalid Interpretation Code <=22 [facility] Comment on above: Result Comment: DIS BOY AMENDED REPORT 09/23/24431 Trop T HS 4HR previously reported as: 69 *H ng/L Performed By: #### L 500.4050, L100.0100 #### [facility] [address] [place], [address] Calculated very low density lipoprotein (VLDL) cholesterol measurementOrdered By: Michael Meeks on 09-22-2024 Calculated very low density lipoprotein (VLDL) cholesterol measurement 26 mg/dL 5-40 [facility] VLDL Cholesterol 26 mg/dL 5-40 [facility] Hemoglobin A1c percentageOrd ered By: Michael Meeks on 09-22-2024 HbA1c (Bld) [Mass fraction] 6.1 % >5.7 [facility] LDL calc ser/plasOrdered By: Michael Meeks on 09-22-2024 Cholesterol in LDL [Mass/Vol] 144 mg/dL [facility] Comment on above: Nvflhhqvgu=266-816 m g/dL & Higher Nocn=249 mg/dL or greater LDL Cholesterol, Calculated 144 mg/dL [facility] Comment on above: Yqscpfpgrn=074-615 m g/dL & Higher Ktwl=664 mg/dL or greater Screening total cholesterol/ high density lipoprotein (HDL) cholesterol ratioOrdered By: Michael Meeks on 09-22-2024 Cholesterol.total/Choles terol in HDL [Mass ratio] 3.38 {ratio} [facility] Serum or plasma cholesterol in HDL measurement (mass/volume)Ordered By: Michael Meeks on 09-22-2024 Cholesterol in HDL [Mass/Vol] 72 mg/dL >40 [facility] Comment on above: National Cholesterol Education Program (NCEP) guidelines:<40 mg/dL: Low HDL-cholesterol (major risk factor for CHD)>= 60 mg/dL: High HDL-cholesterol (negative risk factor for CHD)HDL-cholesterol is affected by a number of factors, e.g. smoking, exercise, hormones, sex and age. Serum or plasma cholesterol measurement (mass/volume)Ordered By: Michael Meeks on 09-22-2024 Cholesterol [Mass/Vol] 242 mg/dL High <201 [facility] Comment on above: Cholesterol level, D esirable <200 mg/dLBorderline high cholesterol 200-239 mg/dLHigh cholesterol >=240 mg/dLRecommendations of the NCEP Adult Treatment Panel for the following risk-cutoff thresholds for the [place] population. TSH DL <= 0.005 mIU/L QnOrde red By: Michael Meeks on 09-22-2024 Thyroid Stimulating Hormone (TSH) 4.900 uIU/mL High 0.300-4.200 [facility] TSH Qn 4.900 uIU/mL High 0.300-4.200 [facility] Triglycerides measurementOrd ered By: Michael Meeks on 09-22-2024 Triglyceride [Mass/Vol] 131 mg/dL <199 [facility] Comment on above: The drugs N-Acetylcy steine and Metamizole may falsely depress this assay. Normal range: <150 mg/dLBorderline High: 150-199 mg/dLHigh: 200-499 mg/dLVery High: >500 mg/dL Discharge Instructionon 08-24 Discharge Instruction [facility] Medical Records Department [address] [place] [address] Instructions for Home/Discharge Instructions 09/19/24 1440 MR#: [id number] Acct: [id number] Name: GANESH FLORES Rep #: [id number] : 1935 [id number] From: Demetrius Nash DO PCP: Dr. Alberto Mustafa MD Status:ADM BOY Discharge Instructions Diet Discharge Diet: No restrictions DC O2, CPAP, BIPAP needs Home O2 Discharge instructions: No Dressing / Incision Discharge Activity: Return to Normal Activity Weight Bearing Status: Full weight bearing Follow Up Care Test Results: Test results from this visit will be discussed in further detail at your follow-up appointment, if applicable. Discharge Plan Admission Admit Date/Time: 09/16/24 19:21 Primary Reason for Your Visit: Debility, dementia Attending Provider: Demetrius Nash Primary Care Provider: Alberto Mustafa Consulting Providers: Altaf Meeks Discharge Orders/Prescriptions Prescriptions: New acetaminophen 325 mg Tablet 650 mg PO Q6H PRN PRN (Reason: Pain 1-10 Or Fever>100.7) Qty: 0 0RF Continued levothyroxine 137 mcg tablet 137 mcg PO DAILY Referrals / Follow Up: Alberto Mustafa MD [Primary Care Provider] - Within 2 Weeks Disposition Disposition (needs filled in before D/C Order can be placed): Assisted Living 09/19/24 1447 Demetrius Nash DO CC: Dr. Altaf Meeks DO; Dr. Alberto Mustafa MD Signed Normal [facility] Phosphoruson 09-18-2024 Phosphate [Mass/Vol] 2.7 mg/dL Normal 2.7-4.5 [facility] Comment on above: Performed By: #### L 501.2300 #### [facility] [address] [place], [address] Serum phosphorus measurement Ordered By: Altaf Mayfield on 09-18-2024 Phosphorus Level 2.7 mg/dL 2.7-4.5 [facility] 12 Lead EKGon 09-17-2024 12 Lead EKG [facility] Cardiovascular Services [address] [place] [address] 12 Lead EKG 09/17/24 1120 MR#: [id number] Acct: [id number] Name: GANESH FLORES Rep #: [id number] : 1935 88 From: Roel Art MD Attending Dr: Dr. Demetrius Nash DO Status: A DM BOY Ordering Dr: Altaf Meeks DO Date: 09/17/24 Location: MS3 Sex: M C Admitted: 09/16/24 Test Reason : HIGH TROP Blood Pressure : */* mmHG Vent. Rate : 55 BPM Atrial Rate : 55 BPM P-R Int : 172 ms QRS Dur : 76 ms QT Int : 408 ms P-R-T Axes : 60 4 56 degrees QTcB Int : 390 ms Sinus bradycardia with sinus arrhythmia Otherwise normal ECG When compared with ECG of 16-Sep-2024 13:00, Vent. rate has decreased by 29 bpm Confirmed by Roel Art ([id number]), general expeditor MILES BROCK ([id number]) on 09/19/2024 5:59:25 AM Referred By: TOMY Confirmed By: Roel Art 09/19/24 0559 Date Roel Art MD CC: Dr. Altaf Meeks DO; Dr. Alberto Mustafa MD; Dr. Demetrius Nash DO Signed Normal [facility] Absolute lymphocyte countOrd ered By: Altaf Mayfield on 09-17-2024 Lymphocytes Auto (Unsp spec) [#/Vol] 0.66 10*3/uL Low 0.83-4.51 [facility] Absolute neutrophil countOrd ered By: Altaf Mayfield on 09-17-2024 Neutrophils (Bld) [#/Vol] 2.3 10*3/uL 2.0-7.7 [facility] Automated lymphocyte count a s percentage of total leukocytesOrdered By: Altaf Mayfield on 09-17-2024 Lymphocytes/100 WBC Auto (Unsp spec) 18.4 % Low 19-41 [facility] BUN/creatinine ratioOrdered By: Altaf Mayfield on 09-17-2024 Urea nitrogen/Creatinine [Mass ratio] 11.6 mg/mg 10-20 [facility] Basophil percentageOrdered B y: Altaf Mayfield on 09-17-2024 Basophils/100 WBC (Bld) 1.4 % High 0-1 [facility] Bilirubin, totalOrdered By: Altaf Mayfield on 09-17-2024 Bilirubin [Mass/Vol] 0.66 mg/dL 0.00-1.30 [facility] CBC W/Diff, Automatedon 02-2 Absolute Lymph 0.66 X10 3/uL Low 0.83-4.51 [facility] Comment on above: Performed By: #### L 501.2300, L100.0100, L500.4050, L500.4100 #### [facility] [address] [place], [address] Absolute Neut 2.3 X10 3/uL Normal 2.0-7.7 [facility] Comment on above: Performed By: #### L 501.2300, L100.0100, L500.4050, L500.4100 #### [facility] [address] [place], [address] Basophils/100 WBC (Bld) 1.4 % High 0-1 [facility] Comment on above: Performed By: #### L 501.2300, L100.0100, L500.4050, L500.4100 #### [facility] [address] [place], [address] Eosinophils/100 WBC (Bld) 3.1 % Normal 0-5 [facility] Comment on above: Performed By: #### L 501.2300, L100.0100, L500.4050, L500.4100 #### [facility] [address] [place], [address] Erythrocyte distribution width (RBC) [Ratio] 13.4 % Normal 11.6-14.6 [facility] Comment on above: Performed By: #### L 501.2300, L100.0100, L500.4050, L500.4100 #### [facility] [address] [place], [address] Hematocrit (Bld) [Volume fraction] 43.4 % Normal 40-54 [facility] Comment on above: Performed By: #### L 501.2300, L100.0100, L500.4050, L500.4100 #### [facility] [address] [place], [address] Hemoglobin (Bld) [Mass/Vol] 14.3 g/dL Normal 13.0-16.5 [facility] Comment on above: Performed By: #### L 501.2300, L100.0100, L500.4050, L500.4100 #### [facility] [address] [place], [address] IG% 0.800 Normal 0.0-0.9 [facility] Comment on above: Result Comment: IG% - Immature Granulocytes (promyelocytes, myelocytes and metamyelocytes) > 1% indicates that a LEFT SHIFT is Present. Performed By: #### L 501.2300, L100.0100, L500.4050, L500.4100 #### [facility] [address] [place], [address] Lymphocytes/100 WBC (Bld) 18.4 % Low 19-41 [facility] Comment on above: Performed By: #### L 501.2300, L100.0100, L500.4050, L500.4100 #### [facility] [address] [place], [address] MCH (RBC) [Entitic mass] 30.9 pg Normal 27.0-32.0 [facility] Comment on above: Performed By: #### L 501.2300, L100.0100, L500.4050, L500.4100 #### [facility] [address] [place], [address] MCHC (RBC) [Mass/Vol] 32.9 g/dL Normal 32-36 [facility] Comment on above: Performed By: #### L 501.2300, L100.0100, L500.4050, L500.4100 #### [facility] [address] [place], [address] MCV (RBC) [Entitic vol] 93.7 fL Normal 80-94 [facility] Comment on above: Performed By: #### L 501.2300, L100.0100, L500.4050, L500.4100 #### [facility] [address] [place], [address] Monocytes/100 WBC (Bld) 12.3 % High 0-10 [facility] Comment on above: Performed By: #### L 501.2300, L100.0100, L500.4050, L500.4100 #### [facility] [address] [place], [address] Neutrophils/100 WBC (Bld) 64.0 % Normal 47-70 [facility] Comment on above: Performed By: #### L 501.2300, L100.0100, L500.4050, L500.4100 #### [facility] [address] [place], [address] Nucleated RBC (Bld) [#/Vol] 0 10*3/uL Normal 0-5 [facility] Comment on above: Performed By: #### L 501.2300, L100.0100, L500.4050, L500.4100 #### [facility] [address] [place], [address] Platelet mean volume (Bld) [Entitic vol] 10.3 fL Normal 6.2-12.0 [facility] Comment on above: Performed By: #### L 501.2300, L100.0100, L500.4050, L500.4100 #### [facility] [address] [place], [address] Platelets (Bld) [#/Vol] 140 10*3/uL Low 150-450 [facility] Comment on above: Performed By: #### L 501.2300, L100.0100, L500.4050, L500.4100 #### [facility] [address] [place], [address] RBC (Bld) [#/Vol] 4.63 10*6/uL Normal 4.6-6.2 [facility] Comment on above: Performed By: #### L 501.2300, L100.0100, L500.4050, L500.4100 #### [facility] [address] [place], [address] RDW SD 45.7 fl High 35.1-43.9 [facility] Comment on above: Performed By: #### L 501.2300, L100.0100, L500.4050, L500.4100 #### [facility] [address] [place], [address] WBC (Bld) [#/Vol] 3.6 10*3/uL Low 4.4-11.0 [facility] Comment on above: Performed By: #### L 501.2300, L100.0100, L500.4050, L500.4100 #### [facility] [address] [place], [address] Calculated very low density lipoprotein (VLDL) cholesterol measurementOrdered By: Altaf Mayfield on 09-17-2024 Calculated very low density lipoprotein (VLDL) cholesterol measurement 15 mg/dL 5-40 [facility] VLDL Cholesterol 15 mg/dL -40 [facility] Carbon dioxide measurementOr dered By: Altaf Mayfield on 09-17-2024 CO2 [Moles/Vol] 24.2 mmol/L 22.0-29.0 [facility] Chloride measurementOrdered By: Altaf Mayfield on 09-17-2024 Chloride [Moles/Vol] 102 mmol/L 96-108 [facility] Comprehensive Metabolic Prof ilon 09-17-2024 Albumin [Mass/Vol] 3.7 g/dL Normal 3.4-4.8 [facility] Comment on above: Performed By: #### L 501.2300, L100.0100, L500.4050, L500.4100 #### [facility] [address] [place], [address] Albumin/Globulin [Mass ratio] 1.5 {ratio} Normal 0.9-2.4 [facility] Comment on above: Performed By: #### L 501.2300, L100.0100, L500.4050, L500.4100 #### [facility] [address] [place], [address] ALK PHOS 95 U/L Normal 40-129 [facility] Comment on above: Performed By: #### L 501.2300, L100.0100, L500.4050, L500.4100 #### [facility] [address] [place], [address] ALT [Catalytic activity/Vol] 11 U/L Normal <=46 [facility] Comment on above: Performed By: #### L 501.2300, L100.0100, L500.4050, L500.4100 #### [facility] [address] [place], [address] Anion gap [Moles/Vol] 12 mmol/L Normal 5-15 [facility] Comment on above: Performed By: #### L 501.2300, L100.0100, L500.4050, L500.4100 #### [facility] [address] [place], [address] AST [Catalytic activity/Vol] 25 U/L Normal <=37 [facility] Comment on above: Performed By: #### L 501.2300, L100.0100, L500.4050, L500.4100 #### [facility] [address] [place], [address] Bilirubin [Mass/Vol] 0.66 mg/dL Normal 0.00-1.30 [facility] Comment on above: Performed By: #### L 501.2300, L100.0100, L500.4050, L500.4100 #### [facility] [address] [place], [address] BUN/CRE 11.6 RATIO Normal 10-20 [facility] Comment on above: Performed By: #### L 501.2300, L100.0100, L500.4050, L500.4100 #### [facility] [address] [place], [address] Calcium [Mass/Vol] 9.5 mg/dL Normal 7.6-11.0 [facility] Comment on above: Performed By: #### L 501.2300, L100.0100, L500.4050, L500.4100 #### [facility] [address] [place], [address] Chloride [Moles/Vol] 102 mmol/L Normal 96-108 [facility] Comment on above: Performed By: #### L 501.2300, L100.0100, L500.4050, L500.4100 #### [facility] [address] [place], [address] CO2 [Moles/Vol] 24.2 mmol/L Normal 22.0-29.0 [facility] Comment on above: Performed By: #### L 501.2300, L100.0100, L500.4050, L500.4100 #### [facility] [address] [place], [address] Creatinine [Mass/Vol] 1.3 mg/dL Normal 0.8-1.3 [facility] Comment on above: Performed By: #### L 501.2300, L100.0100, L500.4050, L500.4100 #### [facility] [address] [place], [address] ECRCL 47.85 ml/min Normal [facility] Comment on above: Performed By: #### L 501.2300, L100.0100, L500.4050, L500.4100 #### [facility] [address] [place], [address] GFR/1.73 sq M.predicted among non-blacks MDRD (S/P/Bld) [Vol rate/Area] 54 mL/min/{1.73_m2} Low >60 [facility] Comment on above: Result Comment: mL/m in/1.73m2 CKD-EPI Creatinine Equation (2020) Performed By: #### L 501.2300, L100.0100, L500.4050, L500.4100 #### [facility] [address] [place], [address] Globulin (S) [Mass/Vol] 2.4 g/dL Normal 2.2-4.2 [facility] Comment on above: Performed By: #### L 501.2300, L100.0100, L500.4050, L500.4100 #### [facility] [address] [place], [address] Glucose [Mass/Vol] 93 mg/dL Normal 70-99 [facility] Comment on above: Performed By: #### L 501.2300, L100.0100, L500.4050, L500.4100 #### [facility] [address] [place], [address] Potassium [Moles/Vol] 4.1 mmol/L Normal 3.3-5.1 [facility] Comment on above: Performed By: #### L 501.2300, L100.0100, L500.4050, L500.4100 #### [facility] [address] [place], [address] Sodium [Moles/Vol] 138 mmol/L Normal 133-145 [facility] Comment on above: Performed By: #### L 501.2300, L100.0100, L500.4050, L500.4100 #### [facility] [address] [place], [address] T PROT 6.1 g/dL Normal 5.9-8.4 [facility] Comment on above: Performed By: #### L 501.2300, L100.0100, L500.4050, L500.4100 #### [facility] [address] [place], [address] Urea nitrogen [Mass/Vol] 15 mg/dL Normal 4-19 [facility] Comment on above: Performed By: #### L 501.2300, L100.0100, L500.4050, L500.4100 #### [facility] [address] [place], [address] Albumin [Mass/Vol] 4.3 g/dL Normal 3.4-4.8 [facility] Comment on above: Performed By: #### L 506.0400 #### [facility] [address] [place], [address] Albumin/Globulin [Mass ratio] 1.4 {ratio} Normal 0.9-2.4 [facility] Comment on above: Performed By: #### L 506.0400 #### [facility] [address] [place], [address] ALK PHOS 113 U/L Normal 40-129 [facility] Comment on above: Performed By: #### L 506.0400 #### [facility] [address] [place], [address] ALT [Catalytic activity/Vol] 15 U/L Normal <=46 [facility] Comment on above: Performed By: #### L 506.0400 #### [facility] [address] [place], [address] Anion gap [Moles/Vol] 15 mmol/L Normal 5-15 [facility] Comment on above: Performed By: #### L 506.0400 #### [facility] [address] [place], [address] AST [Catalytic activity/Vol] 31 U/L Normal <=37 [facility] Comment on above: Performed By: #### L 506.0400 #### [facility] [address] [place], [address] Bilirubin [Mass/Vol] 0.79 mg/dL Normal 0.00-1.30 [facility] Comment on above: Performed By: #### L 506.0400 #### [facility] [address] [place], [address] BUN/CRE 10.9 RATIO Normal 10-20 [facility] Comment on above: Performed By: #### L 506.0400 #### [facility] [address] [place], [address] Calcium [Mass/Vol] 10.3 mg/dL Normal 7.6-11.0 [facility] Comment on above: Performed By: #### L 506.0400 #### [facility] [address] [place], [address] Chloride [Moles/Vol] 97 mmol/L Normal 96-108 [facility] Comment on above: Performed By: #### L 506.0400 #### [facility] [address] [place], [address] CO2 [Moles/Vol] 24.0 mmol/L Normal 22.0-29.0 [facility] Comment on above: Performed By: #### L 506.0400 #### [facility] [address] [place], [address] Creatinine [Mass/Vol] 1.4 mg/dL High 0.8-1.3 [facility] Comment on above: Performed By: #### L 506.0400 #### [facility] [address] [place], [address] GFR/1.73 sq M.predicted among non-blacks MDRD (S/P/Bld) [Vol rate/Area] 48 mL/min/{1.73_m2} Low >60 [facility] Comment on above: Result Comment: mL/m in/1.73m2 CKD-EPI Creatinine Equation (2020) Performed By: #### L 506.0400 #### [facility] [address] [place], [address] Globulin (S) [Mass/Vol] 3.2 g/dL Normal 2.2-4.2 [facility] Comment on above: Performed By: #### L 506.0400 #### [facility] [address] [place], [address] Glucose [Mass/Vol] 124 mg/dL High 70-99 [facility] Comment on above: Performed By: #### L 506.0400 #### [facility] [address] [place], [address] Potassium [Moles/Vol] 4.4 mmol/L Normal 3.3-5.1 [facility] Comment on above: Performed By: #### L 506.0400 #### [facility] [address] [place], [address] Sodium [Moles/Vol] 136 mmol/L Normal 133-145 [facility] Comment on above: Performed By: #### L 506.0400 #### [facility] [address] [place], [address] T PROT 7.5 g/dL Normal 5.9-8.4 [facility] Comment on above: Performed By: #### L 506.0400 #### [facility] [address] [place], [address] Urea nitrogen [Mass/Vol] 16 mg/dL Normal 4-19 [facility] Comment on above: Performed By: #### L 506.0400 #### [facility] [address] [place], [address] Echo Completeon 09-17-2024 Echo Complete [facility] Services [address] [place] [address] Echo Complete 09/17/24 0959 MR#: [id number] Acct: [id number] Name: GANESH FLORES Rep #: [id number] : [id number] From: Kamari Lockhart MD Attending Dr: Dr. Demetrius Nash, Status: A DM BOY Ordering Dr: Altaf Meeks DO Date: 09/17/24 Location: MS3 Sex: M C Admitted: 09/16/24 Reason For Study Reason For Study: Other Procedure This was a 2D Doppler, Color Flow transthoracic echocardiogram. Exam performed portable in patient room. Left Ventricle Normal LV size. The estimated ejection fraction is 60 %. No evidence for diastolic dysfunction. No regional wall motion abnormalities noted. Right Ventricle Normal RV size. Normal systolic function. Atria The left and right atria are normal. No doppler evidence for ASD. Mitral Valve There is severe mitral annular calcification. There is no mitral valve stenosis. Trivial mitral valve insufficiency. Tricuspid Valve There is no tricuspid stenosis. Trivial tricuspid valve insufficiency. Pulmonary artery systolic pressure is 40 mmHg. Aortic Valve Trisinus/trileaflet aortic valve. Mild diffuse aortic valve thickening. Mild aortic stenosis. No aortic valve insufficiency. Pulmonic Valve There is no pulmonic valvular stenosis. No pulmonic valve insufficiency. Great Vessels Normal sized aortic root. Pericardium/Pleural No pericardial effusion. MMode/2D Measurements Calculations LVIDd: 4.4 cm IVSd: 1.2 cm LVOT diam: 2.1 cm LVIDs: 3.3 cm LVPWd: 1.1 cm LVOT area: 3.4 cm2 RVDd: 3.7 cm FS: 25.6 % LAV(MOD-bp): 59.8 ml LA A4 area: 20.3 cm2 LA dimension(2D): 3.8 cm LAV(MOD-bp) Indexed: 27.8 ml/m2 LAV(MOD-sp2): 55.6 ml LAV(MOD-sp4): 49.8 ml TAPSE: 2.0 cm RA A4 area: 16.4 cm2 Time Measurements MV dec time: 0.32 sec Doppler Measurements Calculations MV E max yonny: 79.9 cm/sec Lat Peak E' Yonny: 7.1 cm/sec Med Peak E' Yonny: 6.2 cm/sec MV A max yonny: 143.0 cm/sec E/E' lat: 11.3 E/E' med: 12.8 MV E/A: 0.56 MV V2 max: 170.8 cm/sec MV P1/2t max yonny: 96.1 cm/sec Ao V2 max: 241.2 cm/sec MV max P.7 mmHg MV P1/2t: 120.2 msec Ao max P.3 mmHg MV V2 mean: 78.9 cm/sec MV dec slope: 234.2 cm/sec2 Ao V2 mean: 163.8 cm/sec MV mean P.1 mmHg Ao mean P.3 mmHg MV V2 VTI: 41.5 cm MVA(P1/2t): 1.8 cm2 Ao V2 VTI: 51.6 cm MVA(VTI): 1.8 cm2 AV (velocity ratio): 0.43 YESSENIA(I,D): 1.5 cm2 YESSENIA(V,D): 1.6 cm2 LV V1 max: 113.3 cm/sec SV(LVOT): 76.6 ml TR max yonny: 299.4 cm/sec LV V1 max P.1 mmHg TR max P.9 mmHg LV V1 mean P.2 mmHg LV V1 mean: 68.1 cm/sec LV V1 VTI: 22.3 cm ECHO/Echo Complete Interpretation Summary The estimated ejection fraction is 60 %. No evidence for diastolic dysfunction. Mild aortic stenosis. Trivial mitral valve insufficiency. Ordering Physician: Altaf Meeks Performed By: Vinay Garcia RCS 09/17/24 1130 Date Kamari Lockhart MD CC: Dr. Altaf Meeks DO; Dr. Alberto Mustafa MD; Dr. 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: Signed Normal [facility] Eosinophil percentageOrdered By: Altaf Mayfield on 09-17-2024 Eosinophils/100 WBC (Bld) 3.1 % 0-5 [facility] Erythrocyte distribution wid th ratioOrdered By: Altaf Mayfeild on 09-17-2024 Erythrocyte distribution width (RBC) [Ratio] 13.4 % 11.6-14.6 [facility] Erythrocyte distribution wid th standard deviationOrdered By: Altaf Mayfield on 09-17-2024 Erythrocyte distribution width (RBC) [Entitic vol] 45.7 fL High 35.1-43.9 [facility] Erythrocyte distribution width (RBC) [Ratio] 45.7 fl High 35.1-43.9 [facility] Estimation of creatinine ijeoma aranceOrdered By: Altaf Mayfield on 09-17-2024 Estimated Creatinine Clearance Calc 47.85 ml/min 50-250 [facility] Folates, (Folic Acid)on 08-24 FOLATES 8.53 ng/mL Normal 4.60-34.80 [facility] Comment on above: Order Comment: Has P atient had X-rays with Contrast this admission? NN Performed By: #### L 500.4050, L100.0100 #### [facility] [address] [place], [address] GFR/1.73 sq M.predicted mehran g non-blacks MDRD (S/P/Bld) [Vol rate/Area]Ordered By: Altaf Mayfield on 09-17-2024 Estimated GFR (MDRD) Non-Af Amer 54 Low >60 [facility] Comment on above: mL/min/1.73m2 CKD-EP I Creatinine Equation (2020) Glomerular filtration rate ( GFR) estimation/1.73 sq m using serum, plasma, or whole bOrdered By: Altaf Mayfield on 09-17-2024 GFR/1.73 sq M.predicted among non-blacks MDRD (S/P/Bld) [Vol rate/Area] 54 mL/min/{1.73_m2} Low >60 [facility] Comment on above: mL/min/1.73m2 CKD-EP I Creatinine Equation (2020) Hematocrit Auto (Bld) [Volum e fraction]Ordered By: Altaf aMyfield on 09-17-2024 Hematocrit (Bld) [Volume fraction] 43.4 % 40-54 [facility] Hemoglobin A1con 09-17-2024 HbA1c (Bld) [Mass fraction] 6.1 % Normal <=5.6 [facility] Comment on above: Performed By: #### L 500.4050, L100.0100 #### [facility] [address] [place], [place], [id number] Hemoglobin measurementOrdere d By: Altaf Mayfield on 09-17-2024 Hemoglobin (Bld) [Mass/Vol] 14.3 g/dL 13.0-16.5 [facility] Immature granulocytes/100 WB C Auto (Bld)Ordered By: Altaf Mayfield on 09-17-2024 Immature granulocytes/100 WBC (Bld) 0.800 % 0.0-0.9 [facility] Comment on above: IG% - Immature Granu locytes (promyelocytes, myelocytes and metamyelocytes) > 1% indicates that a LEFT SHIFT is Present. L501.4021on 09-17-2024 Trop T High Sen 76 ng/L Invalid Interpretation Code <=22 [facility] Comment on above: Order Comment: Has P atient had X-rays with Contrast this admission? N Result Comment: Crit ical Result(s) Called at: by:??Results read back by same. CALLED TO Ramandeep TOMLIN AT 0055 Performed By: #### L 500.4050, L100.0100 #### [facility] [address] [place], [address] LDL calc ser/plasOrdered By: Altaf Mayfield on 09-17-2024 Cholesterol in LDL [Mass/Vol] 134 mg/dL [facility] Comment on above: Wuuslvekgg=901-863 m g/dL & Higher Ltig=521 mg/dL or greater LDL Cholesterol, Calculated 134 mg/dL [facility] Comment on above: Zckbbvmlvi=847-716 m g/dL & Higher Nrvp=348 mg/dL or greater Laboratory - Chemistry and C hemistry - challengeOrdered By: Altaf Mayfield on 09-17-2024 AST [Catalytic activity/Vol] 25 U/L <38 [facility] Lipid Profileon 09-17-2024 CHOL:HDL 3.24 Normal [facility] Comment on above: Performed By: #### L 501.2300, L100.0100, L500.4050, L500.4100 #### [facility] [address] [place], [address] Cholesterol [Mass/Vol] 215 mg/dL High <=200 [facility] Comment on above: Result Comment: Chol esterol level, Desirable <200 mg/dL Borderline high cholesterol 200-239 mg/dL High cholesterol >=240 mg/dL Recommendations of the NCEP Adult Treatment Panel for the following risk-cutoff thresholds for the [place] population. Performed By: #### L 501.2300, L100.0100, L500.4050, L500.4100 #### [facility] [address] [place], [address] Cholesterol in HDL [Mass/Vol] 66 mg/dL Normal [facility] Comment on above: Result Comment: Liz onal Cholesterol Education Program (NCEP) guidelines: <40 mg/dL: Low HDL-cholesterol (major risk factor for CHD) >= 60 mg/dL: High HDL-cholesterol (negative risk factor for CHD) HDL-cholesterol is affected by a number of factors, e.g. smoking, exercise, hormones, sex and age. Performed By: #### L 501.2300, L100.0100, L500.4050, L500.4100 #### [facility] [address] [place], [address] Cholesterol in LDL [Mass/Vol] 134 mg/dL Normal [facility] Comment on above: Result Comment: Bord hbuyiu=149-948 mg/dL Higher Qcub=885 mg/dL or greater Performed By: #### L 501.2300, L100.0100, L500.4050, L500.4100 #### [facility] [address] [place], [address] Cholesterol in VLDL [Mass/Vol] 15 mg/dL Normal 5-40 [facility] Comment on above: Performed By: #### L 501.2300, L100.0100, L500.4050, L500.4100 #### [facility] [address] [place], [address] Triglyceride [Mass/Vol] 76 mg/dL Normal [facility] Comment on above: Result Comment: The drugs N-Acetylcysteine and Metamizole may falsely depress this assay. Normal range: <150 mg/dL Borderline High: 150-199 mg/dL High: 200-499 mg/dL Very High: >500 mg/dL Performed By: #### L 501.2300, L100.0100, L500.4050, L500.4100 #### [facility] [address] [place], [address] Lymphocytes Auto (Unsp spec) [#/Vol]Ordered By: Altaf Mayfield on 09-17-2024 Lymphocytes (Bld) [#/Vol] 0.66 10*3/uL Low 0.83-4.51 [facility] Lymphocytes/100 WBC Auto (Un sp spec)Ordered By: Altaf Mayfield on 09-17-2024 Lymphocytes/100 WBC (Bld) 18.4 % Low 19-41 [facility] MCV (mean corpuscular volume ) determinationOrdered By: Altaf Mayfield on 09-17-2024 MCV (RBC) [Entitic vol] 93.7 fL 80-94 [facility] Magnesiumon 09-17-2024 Magnesium [Mass/Vol] 2.2 mg/dL Normal 1.5-2.2 [facility] Comment on above: Order Comment: Has P atient had X-rays with Contrast this admission? N Performed By: #### L 500.4050, L100.0100 #### [facility] [address] [place], [place], [id number] Mean corpuscular hemoglobin (MCH) determinationOrdered By: Altaf Mayfield on 09-17-2024 MCH (RBC) [Entitic mass] 30.9 pg 27.0-32.0 [facility] Mean corpuscular hemoglobin concentration (MCHC) determinationOrdered By: Altaf Mayfield on 09-17-2024 MCHC (RBC) [Mass/Vol] 32.9 g/dL 32-36 [facility] Mean platelet volume determi nationOrdered By: Altaf Mayfield on 09-17-2024 Platelet mean volume (Bld) [Entitic vol] 10.3 fL 6.2-12.0 [facility] Monocyte percentageOrdered B y: Altaf Mayfield on 09-17-2024 Monocytes/100 WBC (Bld) 12.3 % High 0-10 [facility] Neutrophil percentageOrdered By: Altaf Mayfield on 09-17-2024 Neutrophils/100 WBC (Bld) 64.0 % 47-70 [facility] No Panel InformationOrdered By: Altaf Mayfield on 09-17-2024 Delta Troponin T 1 [facility] Comment on above: Potential recent AL, CKD,LVH* Consider a third Troponin for Suspected ACSIf clinical suspicion for ACS is high, suggest getting a third troponin. Otherwise, stress test or CTCA. Nucleated red blood cell per centageOrdered By: Altaf Mayfield on 09-17-2024 Nucleated RBC/100 WBC (Bld) [Ratio] 0 % 0-5 [facility] Phosphoruson 09-17-2024 Phosphate [Mass/Vol] 2.9 mg/dL Normal 2.7-4.5 [facility] Comment on above: Performed By: #### L 501.2300, L100.0100, L500.4050, L500.4100 #### [facility] [address] [place], [address] Platelet countOrdered By: David Mayfield on 09-17-2024 Platelets (Bld) [#/Vol] 140 10*3/uL Low 150-450 [facility] RBC Auto (Bld) [#/Vol]Ordere d By: Altaf Mayfield on 09-17-2024 RBC (Bld) [#/Vol] 4.63 10*6/uL 4.6-6.2 [facility] Screening total cholesterol/ high density lipoprotein (HDL) cholesterol ratioOrdered By: Altaf Mayfield on 09-17-2024 Cholesterol.total/Choles terol in HDL [Mass ratio] 3.24 {ratio} [facility] Serum creatinine measurement (mass/volume)Ordered By: Altaf Mayfield on 09-17-2024 Creatinine [Mass/Vol] 1.3 mg/dL 0.70-1.20 [facility] Serum globulin measurementOr dered By: Altaf Mayfield on 09-17-2024 Globulin (S) [Mass/Vol] 2.4 g/dL 2.2-4.2 [facility] Serum glucose measurement (m ass/volume)Ordered By: Altaf Mayfield on 09-17-2024 Glucose [Mass/Vol] 93 mg/dL 70-99 [facility] Serum or plasma alanine meraz otransferase (ALT) measurementOrdered By: Altaf Mayfield on 09-17-2024 ALT [Catalytic activity/Vol] 11 U/L <47 [facility] Serum or plasma albumin ana urement (mass/volume)Ordered By: Altaf Mayfield on 09-17-2024 Albumin [Mass/Vol] 3.7 g/dL 3.4-4.8 [facility] Serum or plasma albumin/glob ulin mass ratioOrdered By: Altaf Mayfield on 09-17-2024 Albumin/Globulin [Mass ratio] 1.5 {ratio} 0.9-2.4 [facility] Serum or plasma alkaline keenan sphatase measurementOrdered By: Altaf Mayfield on 09-17-2024 ALP [Catalytic activity/Vol] 95 U/L 40-129 [facility] Serum or plasma anion gap de termination (moles/volume)Ordered By: Altaf Mayfield on 09-17-2024 Anion gap [Moles/Vol] 12 mmol/L 5-15 [facility] Serum or plasma calcium ana urement (mass/volume)Ordered By: Altaf Mayfield on 09-17-2024 Calcium [Mass/Vol] 9.5 mg/dL 7.6-11.0 [facility] Serum or plasma cholesterol in HDL measurement (mass/volume)Ordered By: Altaf Mayfiled on 09-17-2024 Cholesterol in HDL [Mass/Vol] 66 mg/dL >40 [facility] Comment on above: National Cholesterol Education Program (NCEP) guidelines:<40 mg/dL: Low HDL-cholesterol (major risk factor for CHD)>= 60 mg/dL: High HDL-cholesterol (negative risk factor for CHD)HDL-cholesterol is affected by a number of factors, e.g. smoking, exercise, hormones, sex and age. Serum or plasma cholesterol measurement (mass/volume)Ordered By: Altaf Mayfield on 09-17-2024 Cholesterol [Mass/Vol] 215 mg/dL High <201 [facility] Comment on above: Cholesterol level, D esirable <200 mg/dLBorderline high cholesterol 200-239 mg/dLHigh cholesterol >=240 mg/dLRecommendations of the NCEP Adult Treatment Panel for the following risk-cutoff thresholds for the [place] population. Serum or plasma potassium me asurementOrdered By: Altaf Mayfield on 09-17-2024 Potassium [Moles/Vol] 4.1 mmol/L 3.3-5.1 [facility] Serum or plasma sodium measu rement (moles/volume)Ordered By: Altaf Mayfield on 09-17-2024 Sodium [Moles/Vol] 138 mmol/L 133-145 [facility] Serum or plasma urea nitroge n measurement (mass/volume)Ordered By: Altaf Mayfield on 09-17-2024 Urea nitrogen [Mass/Vol] 15 mg/dL 4-19 [facility] T4 Free Directon 09-17-2024 T4 FREE DIRECT 1.40 ng/dL Normal 0.76-1.46 [facility] Comment on above: Performed By: #### L 506.0400 #### [facility] [place], [address] Thyroid Stim Hormone (TSH)on 09-17-2024 TSH 2.780 uIU/mL Normal 0.300-4.200 [facility] Comment on above: Performed By: #### L 506.0400 #### [facility] [address] [place], [place], [address] TSH 3.100 uIU/mL Normal 0.300-4.200 [facility] Comment on above: Order Comment: Has P atient had X-rays with Contrast this admission? N Performed By: #### L 500.4050, L100.0100 #### [facility] [address] [place], [address] Total proteinOrdered By: Rahat Mayfield on 09-17-2024 Protein [Mass/Vol] 6.1 g/dL 5.9-8.4 [facility] Triglycerides measurementOrd ered By: Altaf Mayfield on 09-17-2024 Triglyceride [Mass/Vol] 76 mg/dL <199 [facility] Comment on above: The drugs N-Acetylcy steine and Metamizole may falsely depress this assay. Normal range: <150 mg/dLBorderline High: 150-199 mg/dLHigh: 200-499 mg/dLVery High: >500 mg/dL Troponin T.cardiac High sens itivity method [Mass/Vol]Ordered By: Altaf Mayfield on 09-17-2024 Troponin T High Sensitivity 4 Hour 69 ng/L High <22 [facility] Comment on above: DIS INOPrevious repo rted result: 69 ng/LEdited by: AUTOINS on 09/23/24:0432 AMENDED REPORT 09/23/24 0432 Trop T HS 4HR previously reported as: 69 *H ng/L Troponin T High Sensitivity 2 Hour 77 ng/L High <22 [facility] Comment on above: DIS INOPrevious repo rted result: 77 ng/LEdited by: AUTOINS on 09/23/24:0432 AMENDED REPORT 09/23/24 0432 Trop T HS 2HR previously reported as: 77 *H ng/L Troponin T.cardiac [Mass/vol ume] in Serum or Plasma by High sensitivity methodOrdered By: Altaf Mayfield on 09-17-2024 Troponin T.cardiac High sensitivity method [Mass/Vol] 69 ng/L High <22 [facility] Comment on above: DIS INOPrevious repo rted result: 69 ng/LEdited by: AUTOINS on 09/23/24:0432 AMENDED REPORT 09/23/242 Trop T HS 4HR previously reported as: 69 *H ng/L Troponin T.cardiac High sensitivity method [Mass/Vol] 77 ng/L High <22 [facility] Comment on above: DIS INOPrevious repo rted result: 77 ng/LEdited by: AUTOINS on 09/23/24:0432 AMENDED REPORT 09/23/24431 Trop T HS 2HR previously reported as: 77 *H ng/L White blood cell (WBC) count Ordered By: Altaf Mayfield on 09-17-2024 WBC (Bld) [#/Vol] 3.6 10*3/uL Low 4.4-11.0 [facility] 12 Lead EKGon 09-16-2024 12 Lead EKG [facility] Cardiovascular Services [address] [place] [address] 12 Lead EKG 09/16/24 1300 MR#: [id number] Acct: [id number] Name: GANESH FLORES Rep #: [id number] : 1935 88 From: Roel Art MD Attending Dr: Dr. Demetrius Nash, Status: A DM BOY Ordering Dr: Maliha Youngblood DO Date: 09/16/24 Location: [facility] Sex: M C Admitted: 09/16/24 Test Reason : PALP Blood Pressure : */* mmHG Vent. Rate : 84 BPM Atrial Rate : 84 BPM P-R Int : 166 ms QRS Dur : 78 ms QT Int : 370 ms P-R-T Axes : 70 12 74 degrees QTcB Int : 437 ms Normal sinus rhythm Normal ECG Confirmed by Roel Art ([id number]), general expeditor TARA CARDONA ([id number]) on 09/17/2024 8:23:13 AM Referred By: Confirmed By: Roel Art 09/17/24 0823 Date Roel Art MD CC: Dr. Alberto Mustafa MD; Dr. Demetrius Nash DO; Dr. Maliha Youngblood DO Signed Normal [facility] Absolute lymphocyte countOrd ered By: Alberto Mustafa on 09-16-2024 Lymphocytes Auto (Unsp spec) [#/Vol] 0.72 10*3/uL Low 0.83-4.51 [facility] Absolute neutrophil countOrd ered By: Alberto Mustafa on 09-16-2024 Neutrophils (Bld) [#/Vol] 3.9 10*3/uL 2.0-7.7 [facility] Automated lymphocyte count a s percentage of total leukocytesOrdered By: Alberto Mustafa on 09-16-2024 Lymphocytes/100 WBC Auto (Unsp spec) 13.9 % Low 19-41 [facility] BUN/creatinine ratioOrdered By: Alberto Mustafa on 09-16-2024 Urea nitrogen/Creatinine [Mass ratio] 10.9 mg/mg 10-20 [facility] Basophil percentageOrdered B y: Alberto Mustafa on 09-16-2024 Basophils/100 WBC (Bld) 0.8 % 0-1 [facility] Bilirubin Test strip Ql (U)O rdered By: Maliha Youngblood on 09-16-2024 Bilirubin Ql (U) Negative Negative [facility] Bilirubin, totalOrdered By: Alberto Mustafa on 09-16-2024 Bilirubin [Mass/Vol] 0.79 mg/dL 0.00-1.30 [facility] Brain/Head without Contrasto n 09-16-2024 Brain/Head without Contrast [facility] Imaging Services [address] [place], [place] [id number] Brain/Head without Contrast MR#: [id number] Acct: [id number] Name: GANESH FLORES Rep #: [id number] : 1935 M 88 From: Booker Leblanc MD PCP: Dr. Alberto Mustafa MD Status: [facility] Study: Brain/Head without Contrast Date of Exam: 08/24 12/14 Exam# [id number] Ordering Dr: Fiona Quintero TECHNIQUE: Contiguous axial scans of 3.75 mm slice thicknesses. Sagittal and coronal reconstruction images were obtained. One or more dose reduction techniques were used (e.g., automated exposure control, adjustment of mA and/or kv according to patient size, use of iterative reconstruction technique). FINDINGS: Cerebrum: No intraparenchymal hemorrhage. No abnormal areas of encephalomalacia. No mass effect or midline shift. Central white matter and subcortical diffuse hypoattenuation. Ventricles and cisterns: Appropriate size for patient's age. Age-appropriate senescent change. Extra-axial fluid: Unremarkable. Posterior fossa: Unremarkable cerebellum. No abnormalities involving the brainstem. Paranasal sinuses: Normal. Vasculature: Atherosclerotic calcific disease involving the carotids and vertebrobasilar arteries. Mastoid air cells: Normal. Calvarium: Unremarkable. Soft tissues: Unremarkable. CT/Brain/Head without Contrast IMPRESSION: 1. 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 2. No acute intra cerebral hemorrhage or infarcts. 3. Age-appropriate senescent change. Reading Location: [facility] CC: Dr. Alberto Mustafa MD; CRYSTAL Solorzano Assistant Professor Of Physics: Signed Normal [facility] CBC W/Diff, Automatedon 08-24 Absolute Lymph 0.72 X10 3/uL Low 0.83-4.51 [facility] Comment on above: Performed By: #### L 506.0400 #### [facility] [address] [place], [address] Absolute Neut 3.9 X10 3/uL Normal 2.0-7.7 [facility] Comment on above: Performed By: #### L 506.0400 #### [facility] [address] [place], [address] Basophils/100 WBC (Bld) 0.8 % Normal 0-1 [facility] Comment on above: Performed By: #### L 506.0400 #### [facility] [address] [place], [address] Eosinophils/100 WBC (Bld) 1.2 % Normal 0-5 [facility] Comment on above: Performed By: #### L 506.0400 #### [facility] [address] [place], [address] Erythrocyte distribution width (RBC) [Ratio] 13.2 % Normal 11.6-14.6 [facility] Comment on above: Performed By: #### L 506.0400 #### [facility] [address] [place], [address] Hematocrit (Bld) [Volume fraction] 49.6 % Normal 40-54 [facility] Comment on above: Performed By: #### L 506.0400 #### [facility] [address] [place], [address] Hemoglobin (Bld) [Mass/Vol] 15.9 g/dL Normal 13.0-16.5 [facility] Comment on above: Performed By: #### L 506.0400 #### [facility] [address] [place], [address] IG% 0.600 Normal 0.0-0.9 [facility] Comment on above: Result Comment: IG% - Immature Granulocytes (promyelocytes, myelocytes and metamyelocytes) > 1% indicates that a LEFT SHIFT is Present. Performed By: #### L 506.0400 #### [facility] [address] [place], [address] Lymphocytes/100 WBC (Bld) 13.9 % Low 19-41 [facility] Comment on above: Performed By: #### L 506.0400 #### [facility] [address] [place], [address] MCH (RBC) [Entitic mass] 30.0 pg Normal 27.0-32.0 [facility] Comment on above: Performed By: #### L 506.0400 #### [facility] [address] [place], [address] MCHC (RBC) [Mass/Vol] 32.1 g/dL Normal 32-36 [facility] Comment on above: Performed By: #### L 506.0400 #### [facility] [address] [place], [address] MCV (RBC) [Entitic vol] 93.6 fL Normal 80-94 [facility] Comment on above: Performed By: #### L 506.0400 #### [facility] [address] [place], [address] Monocytes/100 WBC (Bld) 8.1 % Normal 0-10 [facility] Comment on above: Performed By: #### L 506.0400 #### [facility] [address] [place], [address] Neutrophils/100 WBC (Bld) 75.4 % High 47-70 [facility] Comment on above: Performed By: #### L 506.0400 #### [facility] [address] [place], [address] Nucleated RBC (Bld) [#/Vol] 0 10*3/uL Normal 0-5 [facility] Comment on above: Performed By: #### L 506.0400 #### [facility] [address] [place], [address] Platelet mean volume (Bld) [Entitic vol] 10.5 fL Normal 6.2-12.0 [facility] Comment on above: Performed By: #### L 506.0400 #### [facility] [address] [place], [address] Platelets (Bld) [#/Vol] 169 10*3/uL Normal 150-450 [facility] Comment on above: Performed By: #### L 506.0400 #### [facility] [address] [place], [address] RBC (Bld) [#/Vol] 5.30 10*6/uL Normal 4.6-6.2 [facility] Comment on above: Performed By: #### L 506.0400 #### [facility] [address] [place], [address] RDW SD 45.5 fl High 35.1-43.9 [facility] Comment on above: Performed By: #### L 506.0400 #### [facility] [address] [place], [address] WBC (Bld) [#/Vol] 5.2 10*3/uL Normal 4.4-11.0 [facility] Comment on above: Performed By: #### L 506.0400 #### [facility] [address] [place], [address] Absolute Lymph 0.58 X10 3/uL Low 0.83-4.51 [facility] Comment on above: Performed By: #### L 500.4050, L100.0100 #### [facility] [address] [place], [address] Absolute Neut 3.8 X10 3/uL Normal 2.0-7.7 [facility] Comment on above: Performed By: #### L 500.4050, L100.0100 #### [facility] [address] [place], [address] Basophils/100 WBC (Bld) 0.4 % Normal 0-1 [facility] Comment on above: Performed By: #### L 500.4050, L100.0100 #### [facility] [address] [place], [address] Eosinophils/100 WBC (Bld) 1.2 % Normal 0-5 [facility] Comment on above: Performed By: #### L 500.4050, L100.0100 #### [facility] [address] [place], [address] Erythrocyte distribution width (RBC) [Ratio] 13.2 % Normal 11.6-14.6 [facility] Comment on above: Performed By: #### L 500.4050, L100.0100 #### [facility] [address] [place], [address] Hematocrit (Bld) [Volume fraction] 46.8 % Normal 40-54 [facility] Comment on above: Performed By: #### L 500.4050, L100.0100 #### [facility] [address] [place], [address] Hemoglobin (Bld) [Mass/Vol] 15.4 g/dL Normal 13.0-16.5 [facility] Comment on above: Performed By: #### L 500.4050, L100.0100 #### [facility] [address] [place], [address] IG% 0.600 Normal 0.0-0.9 [facility] Comment on above: Result Comment: IG% - Immature Granulocytes (promyelocytes, myelocytes and metamyelocytes) > 1% indicates that a LEFT SHIFT is Present. Performed By: #### L 500.4050, L100.0100 #### [facility] [address] [place], [address] Lymphocytes/100 WBC (Bld) 12.0 % Low 19-41 [facility] Comment on above: Performed By: #### L 500.4050, L100.0100 #### [facility] [address] [place], [address] MCH (RBC) [Entitic mass] 30.4 pg Normal 27.0-32.0 [facility] Comment on above: Performed By: #### L 500.4050, L100.0100 #### [facility] [address] [place], [address] MCHC (RBC) [Mass/Vol] 32.9 g/dL Normal 32-36 [facility] Comment on above: Performed By: #### L 500.4050, L100.0100 #### [facility] [address] [place], [address] MCV (RBC) [Entitic vol] 92.3 fL Normal 80-94 [facility] Comment on above: Performed By: #### L 500.4050, L100.0100 #### [facility] [address] [place], [address] Monocytes/100 WBC (Bld) 8.2 % Normal 0-10 [facility] Comment on above: Performed By: #### L 500.4050, L100.0100 #### [facility] [address] [place], [address] Neutrophils/100 WBC (Bld) 77.6 % High 47-70 [facility] Comment on above: Performed By: #### L 500.4050, L100.0100 #### [facility] [address] [place], [address] Nucleated RBC (Bld) [#/Vol] 0 10*3/uL Normal 0-5 [facility] Comment on above: Performed By: #### L 500.4050, L100.0100 #### [facility] [address] [place], [address] Platelet mean volume (Bld) [Entitic vol] 9.8 fL Normal 6.2-12.0 [facility] Comment on above: Performed By: #### L 500.4050, L100.0100 #### [facility] [address] [place], [address] Platelets (Bld) [#/Vol] 155 10*3/uL Normal 150-450 [facility] Comment on above: Performed By: #### L 500.4050, L100.0100 #### [facility] [address] [place], [address] RBC (Bld) [#/Vol] 5.07 10*6/uL Normal 4.6-6.2 [facility] Comment on above: Performed By: #### L 500.4050, L100.0100 #### [facility] [address] [place], [address] RDW SD 45.1 fl High 35.1-43.9 [facility] Comment on above: Performed By: #### L 500.4050, L100.0100 #### [facility] [address] [place], [address] WBC (Bld) [#/Vol] 4.9 10*3/uL Normal 4.4-11.0 [facility] Comment on above: Performed By: #### L 500.4050, L100.0100 #### [facility] Laboratory [address] [place], [address] Carbon dioxide measurementOr dered By: Alberto Mustafa on 09-16-2024 CO2 [Moles/Vol] 24.0 mmol/L 22.0-29.0 [facility] Chest 1 View (Portable)on Chest 1 View (Portable) [facility] Imaging Services [address] [place] [address] Chest 1 View (Portable) MR#: [id number] Acct: [id number] Name: GANESH FLORES Rep #: [id number] : 1935 M 88 From: Booker Leblanc MD PCP: Dr. Alberto Mustafa MD Status: [facility] ER Study: Chest 1 View (Portable) Date of Exam: 09/16/24 Exam# [id number] Ordering Dr: Maliha Youngblood DO PROCEDURE: CHEST 1 VIEW (PORTABLE) REASON FOR EXAM: Patient fell. TECHNIQUE: Frontal view of the chest. COMPARISON: Yesterday FINDINGS: Lungs are clear of pneumonia and congestion. Old healed granulomatous changes. No pleural effusions, thickening, or pneumothorax. Heart and mediastinum are normal. Atherosclerotic and tortuous aorta. No hilar masses. Bones and soft tissues are unremarkable. RAD/Chest 1 View (Portable) IMPRESSION: No active cardiopulmonary disease. Reading [facility] CC: Dr. Alberto Mustafa MD; Dr. Maliha Youngblood DO Assistant Professor Of Physics: Signed Normal [facility] Chloride measurementOrdered By: Alberto Mustafa on 09-16-2024 Chloride [Moles/Vol] 97 mmol/L 96-108 [facility] Comprehensive Metabolic Prof ilon 09-16-2024 Albumin [Mass/Vol] 4.1 g/dL Normal 3.4-4.8 [facility] Comment on above: Performed By: #### L 500.4050, L100.0100 #### [facility] Laboratory [address] [place], [address] Albumin/Globulin [Mass ratio] 1.3 {ratio} Normal 0.9-2.4 [facility] Comment on above: Performed By: #### L 500.4050, L100.0100 #### [facility] Laboratory [address] [place], [address] ALK PHOS 115 U/L Normal 40-129 [facility] Comment on above: Performed By: #### L 500.4050, L100.0100 #### [facility] Laboratory [address] [place], [address] ALT [Catalytic activity/Vol] 12 U/L Normal <=46 [facility] Comment on above: Performed By: #### L 500.4050, L100.0100 #### [facility] Laboratory [address] [place], [address] Anion gap [Moles/Vol] 10 mmol/L Normal 5-15 [facility] Comment on above: Performed By: #### L 500.4050, L100.0100 #### [facility] Laboratory [address] [place], [address] AST [Catalytic activity/Vol] 27 U/L Normal <=37 [facility] Comment on above: Performed By: #### L 500.4050, L100.0100 #### [facility] Laboratory [address] [place], [address] Bilirubin [Mass/Vol] 0.79 mg/dL Normal 0.00-1.30 [facility] Comment on above: Performed By: #### L 500.4050, L100.0100 #### [facility] Laboratory [address] [place], [address] BUN/CRE 12.2 RATIO Normal 10-20 [facility] Comment on above: Performed By: #### L 500.4050, L100.0100 #### [facility] Laboratory [address] [place], [address] Calcium [Mass/Vol] 10.2 mg/dL Normal 7.6-11.0 [facility] Comment on above: Performed By: #### L 500.4050, L100.0100 #### [facility] Laboratory [address] [place], [address] Chloride [Moles/Vol] 99 mmol/L Normal 96-108 [facility] Comment on above: Performed By: #### L 500.4050, L100.0100 #### [facility] Laboratory [address] [place], [address] CO2 [Moles/Vol] 27.4 mmol/L Normal 22.0-29.0 [facility] Comment on above: Performed By: #### L 500.4050, L100.0100 #### [facility] Laboratory [address] [place], [address] Creatinine [Mass/Vol] 1.3 mg/dL Normal 0.8-1.3 [facility] Comment on above: Performed By: #### L 500.4050, L100.0100 #### [facility] Laboratory [address] [place], [address] GFR/1.73 sq M.predicted among non-blacks MDRD (S/P/Bld) [Vol rate/Area] 54 mL/min/{1.73_m2} Low >60 [facility] Comment on above: Result Comment: mL/m in/1.73m2 CKD-EPI Creatinine Equation (2020) Performed By: #### L 500.4050, L100.0100 #### [facility] Laboratory [address] [place], [address] Globulin (S) [Mass/Vol] 3.1 g/dL Normal 2.2-4.2 [facility] Comment on above: Performed By: #### L 500.4050, L100.0100 #### [facility] Laboratory [address] [place], [address] Glucose [Mass/Vol] 138 mg/dL High 70-99 [facility] Comment on above: Performed By: #### L 500.4050, L100.0100 #### [facility] Laboratory [address] [place], [address] Potassium [Moles/Vol] 4.4 mmol/L Normal 3.3-5.1 [facility] Comment on above: Performed By: #### L 500.4050, L100.0100 #### [facility] Laboratory [address] [place], [address] Sodium [Moles/Vol] 136 mmol/L Normal 133-145 [facility] Comment on above: Performed By: #### L 500.4050, L100.0100 #### [facility] Laboratory [address] [place], [address] T PROT 7.1 g/dL Normal 5.9-8.4 [facility] Comment on above: Performed By: #### L 500.4050, L100.0100 #### [facility] Laboratory [address] [place], [address] Urea nitrogen [Mass/Vol] 16 mg/dL Normal 4-19 [facility] Comment on above: Performed By: #### L 500.4050, L100.0100 #### [facility] Laboratory [address] [place], [address] Creatinine [Moles/Vol]Ordere d By: Alberto Mustafa on 09-16-2024 Creatinine [Mass/Vol] 1.4 mg/dL High 0.8-1.3 [facility] Emergency Department Summary on 09-16-2024 Emergency Department Summary [facility] Medical Records Department [address] [place] [address] Emergency Department Summary 09/16/24 MR#: [id number] Acct: [id number] Name: GANESH FLORES Rep #: [id number] : 1935 88 From: Fiona ROJAS PCP: Dr. Alberto Mustafa MD Status:REG ER Location: ED HPI HPI - Fall History of Present Illness Chief Complaint: Fall Narrative Narrative: 88 male with dementia fell in the bathtub yesterday hitting the back of his head. No loss of consciousness. He was evaluated by EMS but refused transport. His daughter states that dementia has been worsening and he is having escalating behaviors and she has had to call the police out to their home twice recently. He had a routine appointment with his primary care today and they referred him to the ER. He is not on blood thinners. No vomiting since the event. PFSH PFSH Home Medications ???Medication ???Instructions ???Recorded ???Last Taken ???Type levothyroxine 137 mcg tablet 137 mcg PO DAILY 09/16/24 Unknown History Allergy/AdvReac Type Severity Reaction Status Date / Time shellfish derived Allergy unknown Verified 09/16/24 12:27 Social History Smoking Status: Unknown if ever smoked ROS ROS ED ROS Narrative Unable to obtain full ROS due to dementia, but he denies headache or vomiting EXAM Physical Exam Narrative Exam Narrative: CONST: Patient sitting in no acute distress. EYES: Normal inspection. Pupils equal and reactive, EOMI. ENT: Head normocephalic atraumatic, no raccoon eyes or cifuentes sign, no hemotympanum, no nasal septal hematoma, no CSF otorrhea or rhinorrhea. NECK: Normal inspection. No midline tenderness or step-offs. RESP: No respiratory distress, CTAB. CVS: Regular rate and rhythm, no murmur, no gallop. Back: Normal inspection, tender over L1/L2 without step-off or deformity, no external signs of trauma. SKIN: Color normal, no rash, warm, dry, intact. EXTREMITIES: Normal appearance, able to move both legs, 5/5 strength in dorsiflexion/plantar flexion. 2+ DP pulses. NEURO: Alert, very hard of hearing, follows commands, demented. PSYCH: Normal affect. Const Vital Signs: 09/16/24 12:23 09/16/24 13:09 09/16/24 14:23 Temperature 98.6 F Temperature Source Oral Pulse Rate 93 60 Respiratory Rate 16 18 Respiratory Effort Normal Blood Pressure 155/95 H 141/84 H Blood Pressure Mean 115 103 Pulse Ox 99 97 Oxygen Delivery Method Room Air Room Air Room Air 09/16/24 16:00 09/16/24 18:00 Temperature Temperature Source Pulse Rate 71 71 Respiratory Rate 16 14 Respiratory Effort Blood Pressure 141/84 H 140/68 H Blood Pressure Mean 103 92 Pulse Ox 98 98 Oxygen Delivery Method Room Air Room Air Physical Exam Const Vital Signs: 09/16/24 12:23 09/16/24 13:09 09/16/24 14:23 Temperature 98.6 F Temperature Source Oral Pulse Rate 93 60 Respiratory Rate 16 18 Respiratory Effort Normal Blood Pressure 155/95 H 141/84 H Blood Pressure Mean 115 103 Pulse Ox 99 97 Oxygen Delivery Method Room Air Room Air Room Air 09/16/24 16:00 09/16/24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 2.0-7.7 [facility] Comment on above: Order Comment: Order Date: 04/25/24 Order Info: 0786-1 - CMP Order Info: [id number] - LIPID Order Info: 3016-3 - TSH Order Info: 3024-7 - T4F Performed By: #### L 506.0400 #### [facility] [address] [place], [address] Basophils/100 WBC (Bld) 0.7 % Normal 0-1 [facility] Comment on above: Order Comment: Order Date: 04/25/24 Order Info: 0786-1 - CMP Order Info: [id number] - LIPID Order Info: 3016-3 - TSH Order Info: 3024-7 - T4F Performed By: #### L 506.0400 #### [facility] [address] [place], [address] Eosinophils/100 WBC (Bld) 2.8 % Normal 0-5 [facility] Comment on above: Order Comment: Order Date: 04/25/24 Order Info: 0786-1 - CMP Order Info: [id number] - LIPID Order Info: 3016-3 - TSH Order Info: 3024-7 - T4F Performed By: #### L 506.0400 #### [facility] [address] [place], [place], [id number] (322) Erythrocyte distribution width (RBC) [Ratio] 13.2 % Normal 11.6-14.6 [facility] Comment on above: Order Comment: Order Date: 04/25/24 Order Info: 86-1 - CMP Order Info: [id number] - LIPID Order Info: 3016-3 - TSH Order Info: 3024-7 - T4F Performed By: #### L 506.0400 #### [facility] [address] [place], [address] Hematocrit (Bld) [Volume fraction] 46.8 % Normal 40-54 [facility] Comment on above: Order Comment: Order Date: 04/25/24 Order Info: 0786-1 - CMP Order Info: [id number] - LIPID Order Info: 3016-3 - TSH Order Info: 3024-7 - T4F Performed By: #### L 506.0400 #### [facility] [address] [place], [address] Hemoglobin (Bld) [Mass/Vol] 14.8 g/dL Normal 13.0-16.5 [facility] Comment on above: Order Comment: Order Date: 04/25/24 Order Info: 0786-1 - CMP Order Info: [id number] - LIPID Order Info: 3 - TSH Order Info: 7 - T4F Performed By: #### L 506.0400 #### [facility] [address] [place], [address] IG% 0.600 Normal 0.0-0.9 [facility] Comment on above: Order Comment: Order Date: 04/25/24 Order Info: 86-1 - CMP Order Info: [id number] - LIPID Order Info: 3 - TSH Order Info: 7 - T4F Result Comment: IG% - Immature Granulocytes (promyelocytes, myelocytes and metamyelocytes) > 1% indicates that a LEFT SHIFT is Present. Performed By: #### L 506.0400 #### [facility] [address] [place], [address] Lymphocytes/100 WBC (Bld) 16.3 % Low 19-41 [facility] Comment on above: Order Comment: Order Date: 04/25/24 Order Info: 0786- - CMP Order Info: [id number] - LIPID Order Info: 3 - TSH Order Info: 7 - T4F Performed By: #### L 506.0400 #### [facility] [address] [place], [address] MCH (RBC) [Entitic mass] 29.6 pg Normal 27.0-32.0 [facility] Comment on above: Order Comment: Order Date: 04/25/24 Order Info: 0786-1 - CMP Order Info: [id number] - LIPID Order Info: 3 - TSH Order Info: 7 - T4F Performed By: #### L 506.0400 #### [facility] [address] [place] [place], [address] MCHC (RBC) [Mass/Vol] 31.6 g/dL Low 32-36 [facility] Comment on above: Order Comment: Order Date: 04/25/24 Order Info: 86-1 - CMP Order Info: [id number] - LIPID Order Info: 3016-3 - TSH Order Info: 3024-7 - T4F Performed By: #### L 506.0400 #### [facility] [address] [place], [address] MCV (RBC) [Entitic vol] 93.6 fL Normal 80-94 [facility] Comment on above: Order Comment: Order Date: 04/25/24 Order Info: 86-1 - CMP Order Info: 13708-2 - LIPID Order Info: 3016-3 - TSH Order Info: 3024-7 - T4F Performed By: #### L 506.0400 #### [facility] [address] [place] [place], [address] Monocytes/100 WBC (Bld) 9.7 % Normal 0-10 [facility] Comment on above: Order Comment: Order Date: 04/25/24 Order Info: 785-1 - CMP Order Info: [id number] - LIPID Order Info: 3016-3 - TSH Order Info: 3024-7 - T4F Performed By: #### L 506.0400 #### [facility] [address] [place] [place], [address] Neutrophils/100 WBC (Bld) 69.9 % Normal 47-70 [facility] Comment on above: Order Comment: Order Date: 04/25/24 Order Info: 86-1 - CMP Order Info: [id number] - LIPID Order Info: 3016-3 - TSH Order Info: 3024-7 - T4F Performed By: #### L 506.0400 #### [facility] [address] [place], [address] Nucleated RBC (Bld) [#/Vol] 0 10*3/uL Normal 0-5 [facility] Comment on above: Order Comment: Order Date: 04/25/24 Order Info: 86-1 - CMP Order Info: [id number] - LIPID Order Info: 3016-3 - TSH Order Info: 3024-7 - T4F Performed By: #### L 506.0400 #### [facility] [address] [place], [place], [id number] Platelet mean volume (Bld) [Entitic vol] 10.3 fL Normal 6.2-12.0 [facility] Comment on above: Order Comment: Order Date: 04/25/24 Order Info: 86-1 - CMP Order Info: [id number] - LIPID Order Info: 3016-3 - TSH Order Info: 3024-7 - T4F Performed By: #### L 506.0400 #### [facility] [address] [place], [place], [address] Platelets (Bld) [#/Vol] 141 10*3/uL Low 150-450 [facility] Comment on above: Order Comment: Order Date: 04/25/24 Order Info: 785-1 - CMP Order Info: 72455-9 - LIPID Order Info: 3016-3 - TSH Order Info: 3024-7 - T4F Performed By: #### L 506.0400 #### [facility] [address] [place], [place], [address] RBC (Bld) [#/Vol] 5.00 10*6/uL Normal 4.6-6.2 [facility] Comment on above: Order Comment: Order Date: 04/25/24 Order Info: 0786-1 - CMP Order Info: [id number] - LIPID Order Info: 3016-3 - TSH Order Info: 3024-7 - T4F Performed By: #### L 506.0400 #### [facility] [address] [place], [address] RDW SD 45.2 fl High 35.1-43.9 [facility] Comment on above: Order Comment: Order Date: 04/25/24 Order Info: 0786-1 - CMP Order Info: [id number] - LIPID Order Info: 3016-3 - TSH Order Info: 3024-7 - T4F Performed By: #### L 506.0400 #### [facility] [address] [place], [address] WBC (Bld) [#/Vol] 5.4 10*3/uL Normal 4.4-11.0 [facility] Comment on above: Order Comment: Order Date: 04/25/24 Order Info: 86-1 - CMP Order Info: [id number] - LIPID Order Info: 301-3 - TSH Order Info: 3024-7 - T4F Performed By: #### L 506.0400 #### [facility] [address] [place], [address] Comprehensive Metabolic Prof ilon 05-29-2024 Albumin [Mass/Vol] 3.9 g/dL Normal 3.2-5.0 [facility] Comment on above: Order Comment: Order Date: 04/25/24 Order Info: 785- - CMP Order Info: - LIPID Order Info: 3 - TSH Order Info: 3024-7 - T4F Performed By: #### L 506.0400 #### [facility] [address] [place], [place], [address] Albumin/Globulin [Mass ratio] 1.1 {ratio} Normal 0.9-2.4 [facility] Comment on above: Order Comment: Order Date: 04/25/24 Order Info: 785- - CMP Order Info: - LIPID Order Info: 3013 - TSH Order Info: 3024-7 - T4F Performed By: #### L 506.0400 #### [facility] [address] [place], [address] ALK P 117 U/L Normal 45-117 [facility] Comment on above: Order Comment: Order Date: 04/25/24 Order Info: 86-1 - CMP Order Info: [id number] - LIPID Order Info: 3013 - TSH Order Info: 3024-7 - T4F Performed By: #### L 506.0400 #### [facility] [address] [place], [address] ALT [Catalytic activity/Vol] 20 U/L Normal 16-61 [facility] Comment on above: Order Comment: Order Date: 04/25/24 Order Info: 0786-1 - CMP Order Info: [id number] - LIPID Order Info: 3016-3 - TSH Order Info: 3024-7 - T4F Performed By: #### L 506.0400 #### [facility] [address] [place], [address] AST [Catalytic activity/Vol] 22 U/L Normal 15-37 [facility] Comment on above: Order Comment: Order Date: 04/25/24 Order Info: 785-1 - CMP Order Info: 91517-8 - LIPID Order Info: 3015-3 - TSH Order Info: 3027 - T4F Performed By: #### L 506.0400 #### [facility] [address] [place], [address] Bilirubin [Mass/Vol] 0.90 mg/dL Normal 0.20-1.00 [facility] Comment on above: Order Comment: Order Date: 04/25/24 Order Info: 785-1 - CMP Order Info: [id number] - LIPID Order Info: 3 - TSH Order Info: 3024-7 - T4F Result Comment: For patients on eltrombopag therapy, use of Dimension [place]ino TBIL is not recommended. Performed By: #### L 506.0400 #### [facility] [address] [place], [address] BUN/CRE 16.3 RATIO Normal 10-20 [facility] Comment on above: Order Comment: Order Date: 04/25/24 Order Info: 785-1 - CMP Order Info: [id number] - LIPID Order Info: 3016-3 - TSH Order Info: 3024-7 - T4F Performed By: #### L 506.0400 #### [facility] [address] [place], [address] CA,Total 9.6 mg/dL Normal 8.5-10.1 [facility] Comment on above: Order Comment: Order Date: 04/25/24 Order Info: 0786-1 - CMP Order Info: [id number] - LIPID Order Info: 3 - TSH Order Info: 7 - T4F Performed By: #### L 506.0400 #### [facility] [address] [place], [address] Chloride [Moles/Vol] 105 mmol/L Normal 98-107 [facility] Comment on above: Order Comment: Order Date: 04/25/24 Order Info: 0786-1 - CMP Order Info: [id number] - LIPID Order Info: 3015-09 - TSH Order Info: 3024-01 - T4F Performed By: #### L 506.0400 #### [facility] [address] [place], [place], [address] CO2 [Moles/Vol] 28.0 mmol/L Normal 21.0-32.0 [facility] Comment on above: Order Comment: Order Date: 04/25/24 Order Info: 86-1 - CMP Order Info: [id number] - LIPID Order Info: 3015-09 - TSH Order Info: 3024-01 - T4F Performed By: #### L 506.0400 #### [facility] [address] [place], [place], [address] Creatinine [Mass/Vol] 1.35 mg/dL High 0.70-1.30 [facility] Comment on above: Order Comment: Order Date: 04/25/24 Order Info: 86-1 - CMP Order Info: 73060-4 - LIPID Order Info: 3 - TSH Order Info: 7 - T4F Result Comment: The validity of the calculated GFR GFRAA in patients over 70 years has not been determined. Clinical correlation is essential. Performed By: #### L 506.0400 #### [facility] [address] [place], [place], [address] EST GFR - AA 64 mL/min Normal >60 [facility] Comment on above: Order Comment: Order Date: 04/25/24 Order Info: 0786-1 - CMP Order Info: [id number] - LIPID Order Info: 3015-09 - TSH Order Info: 7 - T4F Result Comment: Afri can Jordanian GFR Calc Performed By: #### L 506.0400 #### [facility] [address] [place], [place], [address] GAP 4 Low 5-15 [facility] Comment on above: Order Comment: Order Date: 04/25/24 Order Info: 785-1 - CMP Order Info: [id number] - LIPID Order Info: 3015-09 - TSH Order Info: 7 - T4F Performed By: #### L 506.0400 #### [facility] [address] [place], [address] GFR/1.73 sq M.predicted among non-blacks MDRD (S/P/Bld) [Vol rate/Area] 53 mL/min/{1.73_m2} Low >60 [facility] Comment on above: Order Comment: Order Date: 04/25/24 Order Info: 86-1 - CMP Order Info: [id number] - LIPID Order Info: 3015-09 - TSH Order Info: 7 - T4F Result Comment: Non- GFR Calc Performed By: #### L 506.0400 #### [facility] [address] [place], [place], [address] Globulin (S) [Mass/Vol] 3.5 g/dL Normal 2.2-4.2 [facility] Comment on above: Order Comment: Order Date: 04/25/24 Order Info: 0786-1 - CMP Order Info: [id number] - LIPID Order Info: 3015-09 - TSH Order Info: 3027 - T4F Performed By: #### L 506.0400 #### [facility] [address] [place], [place], [address] Glucose [Mass/Vol] 113 mg/dL High 74-106 [facility] Comment on above: Order Comment: Order Date: 04/25/24 Order Info: 785- - CMP Order Info: [id number] - LIPID Order Info: 3 - TSH Order Info: 3024-7 - T4F Result Comment: Fast ing Glucose result from 100 to 125 mg/dL suggests IMPAIRED HOMEOSTASIS per A.D.A. criteria. Performed By: #### L 506.0400 #### [facility] [address] [place], [address] Potassium [Moles/Vol] 4.2 mmol/L Normal 3.5-5.1 [facility] Comment on above: Order Comment: Order Date: 04/25/24 Order Info: 785- - CMP Order Info: [id number] - LIPID Order Info: 3 - TSH Order Info: 7 - T4F Performed By: #### L 506.0400 #### [facility] [address] [place], [address] Sodium [Moles/Vol] 138 mmol/L Normal 136-145 [facility] Comment on above: Order Comment: Order Date: 04/25/24 Order Info: 785- - CMP Order Info: [id number] - LIPID Order Info: [id number] - TSH Order Info: 302-7 - T4F Performed By: #### L 506.0400 #### [facility] [address] [place], [address] T PROT 7.4 g/dL Normal 6.4-8.2 [facility] Comment on above: Order Comment: Order Date: 04/25/24 Order Info: 785-1 - CMP Order Info: [id number] - LIPID Order Info: 3013 - TSH Order Info: 3024-7 - T4F Performed By: #### L 506.0400 #### [facility] [address] [place], [address] Urea nitrogen [Mass/Vol] 22 mg/dL High 7-18 [facility] Comment on above: Order Comment: Order Date: 04/25/24 Order Info: 785-07 - CMP Order Info: - LIPID Order Info: 3015-09 - TSH Order Info: 3024-01 - T4F Performed By: #### L 506.0400 #### [facility] [address] [place], [address] Lipid Profileon 05-29-2024 Cholesterol [Mass/Vol] 162 mg/dL Normal 200 [facility] Comment on above: Order Comment: Order Date: 04/25/24 Order Info: [id number]- - CMP Order Info: - LIPID Order Info: [id number] - TSH Order Info: [id number] - T4F Result Comment: <200 mg/dL Desirable 200-240 mg/dL Borderline >240 mg/dL High Risk Performed By: #### L 506.0400 #### [facility] [address] [place], [address] Cholesterol in HDL [Mass/Vol] 81 mg/dL Normal [facility] Comment on above: Order Comment: Order Date: 04/25/24 Order Info: [id number] - CMP Order Info: - LIPID Order Info: [id number] - TSH Order Info: [id number] - T4F Result Comment: The drugs N-Acetylcysteine and Metamizole may falsely depress this assay. Reference Range HDL <40 mg/dL Low HDL Cholesterol HDL >or= 60 mg/dL High HDL Cholesterol Performed By: #### L 506.0400 #### [facility] [address] [place], [address] Cholesterol in LDL [Mass/Vol] 67 mg/dL Normal 0-130 [facility] Comment on above: Order Comment: Order Date: 04/25/24 Order Info: [id number] - CMP Order Info: [id number] - LIPID Order Info: 3 - TSH Order Info: [id number] - T4F Performed By: #### L 506.0400 #### [facility] [address] [place], [place], [address] Cholesterol in VLDL [Mass/Vol] 14 mg/dL Normal 5-40 [facility] Comment on above: Order Comment: Order Date: 04/25/24 Order Info: [id number]- - CMP Order Info: [id number] - LIPID Order Info: 3 - TSH Order Info: 7 - T4F Performed By: #### L 506.0400 #### [facility] [address] [place], [place], [address] Triglyceride [Mass/Vol] 68 mg/dL Normal [facility] Comment on above: Order Comment: Order Date: 04/25/24 Order Info: [id number]- - CMP Order Info: - LIPID Order Info: [id number] - TSH Order Info: 7 - T4F Result Comment: The drugs N-Acetylcysteine and Metamizole may falsely depress this assay. Serum Triglycerides Reference Interval Normal <150 mg/dL Borderline high 150 - 199 mg/dL High 200 - 499 mg/dL Very High > or = 500 mg/dL Performed By: #### L 506.0400 #### [facility] [address] [place], [place], [address] T4 Free Directon 05-29-2024 T4 FREE DIRECT 1.83 ng/dL High 0.76-1.46 [facility] Comment on above: Order Comment: Order Date: 04/25/24 Order Info: [id number] - CMP Order Info: - LIPID Order Info: 3 - TSH Order Info: 7 - T4F Performed By: #### L 506.0400 #### [facility] [address] [place], [place], [address] Thyroid Stim Hormone (TSH)on 05-29-2024 TSH 0.082 uIU/mL Low 0.358-3.740 [facility] Comment on above: Order Comment: Order Date: 04/25/24Order Info: [id number]- - CMPOrder Info: - LIPIDOrder Info: 3 - TSHOrder Info: 7 - T4F Performed By: #### L 499.0042 #### [facility] [address] [place], [place], [address] Vitamin B12on 05-29-2024 Cobalamin (Vitamin B12) [Mass/Vol] 271 pg/mL Normal 211-911 [facility] Comment on above: Order Comment: Order Date: 04/25/24Order Info: [id number] - B12 Performed By: #### L 499.0042 #### [facility] [address] [place], [place], [address] Thyroidon 05-01-2024 Thyroid [facility] Services [address] [place], [place] [address] Thyroid MR#: [id number] Acct: [id number] Name: GANESH FLORES Rep #: [id number] : 1935 M 88 From: Serafin carroll MD PCP: Dr. Alberto Mustafa MD Status: [facility] Study: Thyroid Date of Exam: 05/01/24 Exam# [id number] Ordering Dr: Alberto Mustafa MD [id number] STUDY: THYROID ULTRASOUND REASON FOR EXAM: Male, 88 years old. Thyroid nodule. TECHNIQUE: Ultrasound evaluation of the thyroid was performed with real-time and static catherine-scale imaging. COMPARISON: None. FINDINGS: RIGHT LOBE: The right lobe of the thyroid gland measures 3.5 cm x 1.1 cm x 1.7 cm. There is a heterogeneous echotexture. There are no demonstrated solid, cystic or complex lesions. LEFT LOBE: The left lobe of the thyroid gland measures 3.2 cm x 1.5 cm x 1.6 cm. There is a heterogeneous echotexture. There is a 9 mm x 9 mm x 7 mm hypoechoic solid nodule in the midportion of the left lobe. Follow-up recommended in 12 months. ISTHMUS: The isthmus measures 2 mm. The regional lymph nodes are normal. US/Thyroid IMPRESSION: 9 mm x 9 mm x 7 mm hypoechoic solid nodule in the midportion of the left lobe of the thyroid. 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 12 month follow-up is recommended. Electronically Signed: Serafin Xiong MD at 11:47 EDT , CC: Dr. Alberto Msutafa MD Assistant Professor Of Physics: Signed Normal [facility] Hemoglobin A1con 04-28-2024 HbA1c (Bld) [Mass fraction] 6.0 % High 3.8-5.6 [facility] Comment on above: Order Comment: ADD O N A1C Result Comment: Norm al < 5.7 % Prediabetic 5.7 - 6.4 % Diabetic >or= 6.5 % Please note range changes. Performed By: #### L 500.4050, L100.0100 #### [facility] [address] [place], [address] CBC W/Diff, Automatedon 10-0 -2023 Absolute Lymph 0.82 X10 3/uL Low 0.83-4.51 [facility] Comment on above: Performed By: #### L 499.0042 #### [facility] [address] [place], [address] Absolute Neut 3.5 X10 3/uL Normal 2.0-7.7 [facility] Comment on above: Performed By: #### L [id number] #### [facility] [address] [place], [address] Basophils/100 WBC (Bld) 1.2 % High 0-1 [facility] Comment on above: Performed By: #### L 499.0042 #### [facility] [address] [place], [address] Eosinophils/100 WBC (Bld) 4.5 % Normal 0-5 [facility] Comment on above: Performed By: #### L 499.0042 #### [facility] [address] [place], [address] Erythrocyte distribution width (RBC) [Ratio] 13.3 % Normal 11.6-14.6 [facility] Comment on above: Performed By: #### L 499.0042 #### [facility] [address] [place], [address] Hematocrit (Bld) [Volume fraction] 45.6 % Normal 40-54 [facility] Comment on above: Performed By: #### L 499.0042 #### [facility] [address] [place], [address] Hemoglobin (Bld) [Mass/Vol] 14.4 g/dL Normal 13.0-16.5 [facility] Comment on above: Performed By: #### L 499.0042 #### [facility] [address] [place], [address] IG% 0.600 Normal 0.0-0.9 [facility] Comment on above: Result Comment: IG% - Immature Granulocytes (promyelocytes, myelocytes and metamyelocytes) > 1% indicates that a LEFT SHIFT is Present. Performed By: #### L 499.0042 #### [facility] [address] [place], [address] Lymphocytes/100 WBC (Bld) 16.1 % Low 19-41 [facility] Comment on above: Performed By: #### L 499.0042 #### [facility] [address] [place], [address] MCH (RBC) [Entitic mass] 29.9 pg Normal 27.0-32.0 [facility] Comment on above: Performed By: #### L 499.0042 #### [facility] [address] [place], [address] MCHC (RBC) [Mass/Vol] 31.6 g/dL Low 32-36 [facility] Comment on above: Performed By: #### L [id number] #### [facility] [address] [place], [address] MCV (RBC) [Entitic vol] 94.8 fL High 80-94 [facility] Comment on above: Performed By: #### L 499.0042 #### [facility] [address] [place], [address] Monocytes/100 WBC (Bld) 8.1 % Normal 0-10 [facility] Comment on above: Performed By: #### L 499.0042 #### [facility] [address] [place], [address] Neutrophils/100 WBC (Bld) 69.5 % Normal 47-70 [facility] Comment on above: Performed By: #### L 499.0042 #### [facility] [address] [place], [address] Nucleated RBC (Bld) [#/Vol] 0 10*3/uL Normal 0-5 [facility] Comment on above: Performed By: #### L 499.0042 #### [facility] [address] [place], [address] Platelet mean volume (Bld) [Entitic vol] 10.5 fL Normal 6.2-12.0 [facility] Comment on above: Performed By: #### L 499.0042 #### [facility] [address] [place], [address] Platelets (Bld) [#/Vol] 161 10*3/uL Normal 150-450 [facility] Comment on above: Performed By: #### L 499.0042 #### [facility] [address] [place], [address] RBC (Bld) [#/Vol] 4.81 10*6/uL Normal 4.6-6.2 [facility] Comment on above: Performed By: #### L 499.0042 #### [facility] [address] [place], [address] RDW SD 46.3 fl High 35.1-43.9 [facility] Comment on above: Performed By: #### L 499.0042 #### [facility] [address] [place], [address] WBC (Bld) [#/Vol] 5.1 10*3/uL Normal 4.4-11.0 [facility] Comment on above: Performed By: #### L 499.0042 #### [facility] [address] [place], [address] Comprehensive Metabolic Prof ilon 04-25-2024 Albumin [Mass/Vol] 3.5 g/dL Normal 3.2-5.0 [facility] Comment on above: Order Comment: N Performed By: #### L 499.0042 #### [facility] [address] [place], [address] Albumin/Globulin [Mass ratio] 1.0 {ratio} Normal 0.9-2.4 [facility] Comment on above: Order Comment: N Performed By: #### L 499.0042 #### [facility] [address] [place], [address] ALK P 108 U/L Normal 45-117 [facility] Comment on above: Order Comment: N Performed By: #### L 499.0042 #### [facility] [address] [place], [address] ALT [Catalytic activity/Vol] 20 U/L Normal 16-61 [facility] Comment on above: Order Comment: N Performed By: #### L 499.0042 #### [facility] [address] [place], [address] AST [Catalytic activity/Vol] 21 U/L Normal 15-37 [facility] Comment on above: Order Comment: N Performed By: #### L 499.0042 #### [facility] [address] [place], [address] Bilirubin [Mass/Vol] 0.60 mg/dL Normal 0.20-1.00 [facility] Comment on above: Order Comment: N Result Comment: For patients on eltrombopag therapy, use of Dimension Mulino TBIL is not recommended. Performed By: #### L 499.0042 #### [facility] [address] [place], [address] BUN/CRE 15.1 RATIO Normal 10-20 [facility] Comment on above: Order Comment: N Performed By: #### L 499.0042 #### [facility] [address] [place], [address] CA,Total 9.7 mg/dL Normal 8.5-10.1 [facility] Comment on above: Order Comment: N Performed By: #### L 499.0042 #### [facility] [address] [place], [address] Chloride [Moles/Vol] 105 mmol/L Normal 98-107 [facility] Comment on above: Order Comment: N Performed By: #### L 499.0042 #### [facility] [address] [place], [address] CO2 [Moles/Vol] 28.0 mmol/L Normal 21.0-32.0 [facility] Comment on above: Order Comment: N Performed By: #### L 499.0042 #### [facility] [address] [place], [address] Creatinine [Mass/Vol] 1.26 mg/dL Normal 0.70-1.30 [facility] Comment on above: Order Comment: N Result Comment: The validity of the calculated GFR GFRAA in patients over 70 years has not been determined. Clinical correlation is essential. Performed By: #### L 499.0042 #### [facility] [address] [place], [address] EST GFR - AA 70 mL/min Normal >60 [facility] Comment on above: Order Comment: N Result Comment: Afri can Jordanian GFR Calc Performed By: #### L 499.0042 #### [facility] [address] [place], [address] GAP 5 Normal 5-15 [facility] Comment on above: Order Comment: N Performed By: #### L 499.0042 #### [facility] [address] [place], [address] GFR/1.73 sq M.predicted among non-blacks MDRD (S/P/Bld) [Vol rate/Area] 58 mL/min/{1.73_m2} Low >60 [facility] Comment on above: Order Comment: N Result Comment: Non- GFR Calc Performed By: #### L 499.0042 #### [facility] [address] [place], [address] Globulin (S) [Mass/Vol] 3.5 g/dL Normal 2.2-4.2 [facility] Comment on above: Order Comment: N Performed By: #### L 499.0042 #### [facility] [address] [place], [address] Glucose [Mass/Vol] 117 mg/dL High 74-106 [facility] Comment on above: Order Comment: N Result Comment: Fast ing Glucose result from 100 to 125 mg/dL suggests IMPAIRED HOMEOSTASIS per A.D.A. criteria. Performed By: #### L 499.0042 #### [facility] [address] [place], [address] Potassium [Moles/Vol] 4.0 mmol/L Normal 3.5-5.1 [facility] Comment on above: Order Comment: N Performed By: #### L 499.0042 #### [facility] [address] [place], [address] Sodium [Moles/Vol] 137 mmol/L Normal 136-145 [facility] Comment on above: Order Comment: N Performed By: #### L 499.0042 #### [facility] [address] [place], [address] T PROT 7.0 g/dL Normal 6.4-8.2 [facility] Comment on above: Order Comment: N Performed By: #### L 499.0042 #### [facility] [address] [place], [address] Urea nitrogen [Mass/Vol] 19 mg/dL High 7-18 [facility] Comment on above: Order Comment: N Performed By: #### L 499.0042 #### [facility] [address] [place], [address] Lipid Profileon 04-25-2024 Cholesterol [Mass/Vol] 216 mg/dL High 200 [facility] Comment on above: Order Comment: N Result Comment: <200 mg/dL Desirable 200-240 mg/dL Borderline >240 mg/dL High Risk Performed By: #### L 499.0042 #### [facility] [address] [place], [address] Cholesterol in HDL [Mass/Vol] 74 mg/dL Normal [facility] Comment on above: Order Comment: N Result Comment: The drugs N-Acetylcysteine and Metamizole may falsely depress this assay. Reference Range HDL <40 mg/dL Low HDL Cholesterol HDL >or= 60 mg/dL High HDL Cholesterol Performed By: #### L 499.0042 #### [facility] [address] [place], [address] Cholesterol in LDL [Mass/Vol] 103 mg/dL Normal 0-130 [facility] Comment on above: Order Comment: N Performed By: #### L 499.0042 #### [facility] [address] [place], [address] Cholesterol in VLDL [Mass/Vol] 39 mg/dL Normal 5-40 [facility] Comment on above: Order Comment: N Performed By: #### L 499.0042 #### [facility] [address] [place], [address] Triglyceride [Mass/Vol] 196 mg/dL Normal [facility] Comment on above: Order Comment: N Result Comment: The drugs N-Acetylcysteine and Metamizole may falsely depress this assay. Serum Triglycerides Reference Interval Normal <150 mg/dL Borderline high 150 - 199 mg/dL High 200 - 499 mg/dL Very High > or = 500 mg/dL Performed By: #### L 499.0042 #### [facility] [address] [place], [address] T4 Free Directon 04-25-2024 T4 FREE DIRECT 0.64 ng/dL Low 0.76-1.46 [facility] Comment on above: Order Comment: N Performed By: #### L 499.0042 #### [facility] [address] [place], [address] Thyroid Stim Hormone (TSH)on 04-25-2024 TSH 9.250 uIU/mL High 0.358-3.740 [facility] Comment on above: Order Comment: N Performed By: #### L 499.0042 #### [facility] [address] [place], [address] Vitamin B12on 04-25-2024 Cobalamin (Vitamin B12) [Mass/Vol] 327 pg/mL Normal 211-911 [facility] Comment on above: Performed By: #### L [id number] #### [facility] [place], [address] Vital Signs Date Time Vital Sign Value Performing Clinician Osei jimenez 12-31-2024 20:58-0400 Body temperature 97.8 [degF] Dr. Alberto Mustafa MD Work Phone: [facility] 12-31-2024 20:58-0400 Diastolic blood pressure 74 mm[Hg] Dr. Alberto Mustafa MD Work Phone: [facility] 12-31-2024 20:58-0400 Heart rate 89 /min Dr. Alberto Mustafa MD Work Phone: 6(039)[phone] [place] [address] 12-31-2024 20:58-0400 Respiratory rate 16 /min Dr. Alberto Mustafa MD Work Phone: 7(039)[phone] [place] [address] 12-31-2024 20:58-0400 SaO2% (BldA) [Mass fraction] 96 % Dr. Alberto Mustafa MD Work Phone: [facility] 12-31-2024 20:58-0400 Systolic blood pressure 112 mm[Hg] Dr. Alberto Mustafa MD Work Phone: [facility] 12-31-2024 19:02-0400 Body mass index (BMI) [Ratio] 28 kg/m2 Dr. Alberto Mustafa MD Work Phone: [facility] 12-31-2024 19:02-0400 Body weight 101.[address] Alberto Mustafa MD Work Phone: [facility] 12-31-2024 15:46-0400 Body height 190.[address] Alberto Mustafa MD Work Phone: [facility] 12-31-2024 11:30-0400 Body temperature 98.6 [degF] Dr. Alberto Mustafa MD Work Phone: [facility] 12-31-2024 11:30-0400 Respiratory rate 16 /min Dr. Alberto Mustafa MD Work Phone: [facility] 12-24-2024 09:23-0400 Diastolic blood pressure 63 mm[Hg] Dr. Alberto Mustafa MD Work Phone: [facility] 12-24-2024 09:23-0400 Heart rate 72 /min Dr. Alberto Mustafa MD Work Phone: [facility] 12-24-2024 09:23-0400 Systolic blood pressure 124 mm[Hg] Dr. Alberto Mustafa MD Work Phone: 3(894)[phone] [place] [address] 12-03-2024 13:22-0400 Body temperature 97 [degF] Dr. Alberto Mustafa MD Work Phone: 0(419)[phone] [place] [address] 12-03-2024 13:22-0400 Diastolic blood pressure 68 mm[Hg] Dr. Alberto Mustafa MD Work Phone: 8(593)[phone] [place] [address] 12-03-2024 13:22-0400 Heart rate 78 /min Dr. Alberto Mustafa MD Work Phone: 9(880)[phone] [place] [address] 12-03-2024 13:22-0400 Respiratory rate 18 /min Dr. Alberto Mustafa MD Work Phone: [facility] 12-03-2024 13:22-0400 Systolic blood pressure 133 mm[Hg] Dr. Alberto Mustafa MD Work Phone: [facility] 10-21-2024 00:35-0400 Body temperature 96.7 [degF] Dr. Alberto Mustafa MD Work Phone: [facility] 10-21-2024 00:35-0400 Diastolic blood pressure 54 mm[Hg] Dr. Alberto Mustafa MD Work Phone: [facility] 10-21-2024 00:35-0400 Heart rate 59 /min Dr. Alberto Mustafa MD Work Phone: [facility] 10-21-2024 00:35-0400 Respiratory rate 18 /min Dr. Alberto Mustafa MD Work Phone: [facility] 10-21-2024 00:35-0400 Systolic blood pressure 161 mm[Hg] Dr. Alberto Mustafa MD Work Phone: [facility] 10-15-2024 12:16-0400 Body temperature 96.7 [degF] Dr. Alberto Mustafa MD Work Phone: [facility] 10-15-2024 12:16-0400 Diastolic blood pressure 54 mm[Hg] Dr. Alberto Mustafa MD Work Phone: [facility] 10-15-2024 12:16-0400 Heart rate 59 /min Dr. Alberto Mustafa MD Work Phone: [facility] 10-15-2024 12:16-0400 Respiratory rate 18 /min Dr. Alberto Mustafa MD Work Phone: [facility] 10-15-2024 12:16-0400 Systolic blood pressure 161 mm[Hg] Dr. Alberto Mustafa MD Work Phone: [facility] 09-19-2024 16:34-0500 Body temperature 97.9 [degF] Dr. Alberto Mustafa MD Work Phone: [facility] 09-19-2024 16:34-0500 Diastolic blood pressure 74 mm[Hg] Dr. Alberto Mustafa MD Work Phone: [facility] 09-19-2024 16:34-0500 Heart rate 65 /min Dr. Alberto Mustafa MD Work Phone: [facility] 09-19-2024 16:34-0500 Respiratory rate 16 /min Dr. Albetro Mustafa MD Work Phone: [facility] 09-19-2024 16:34-0500 SaO2% (BldA) [Mass fraction] 96 % Dr. Alberto Mustafa MD Work Phone: [facility] 09-19-2024 16:34-0500 Systolic blood pressure 133 mm[Hg] Dr. Alberto Mustafa MD Work Phone: [facility] 09-19-2024 06:00-0500 Body mass index (BMI) [Ratio] 23.6 kg/m2 Dr. Alberto Mustafa MD Work Phone: [facility] 09-19-2024 06:00-0500 Body weight [address] Alberto Mustafa MD Work Phone: [facility] 09-17-2024 10:45-0500 Body height 190.[address] Alberto Mustafa MD Work Phone: [facility] Encounters Encounter Date Encounter Type Care Provider Facility Start: 12-31-2024 End: 12-31-2024 Emergency department patient visit Dr. Alberto Mustafa MD Work Phone: -Emergency Department Work Phone: Start: 12-31-2024 ambulatory [facility] Facility: [facility] Start: 12-31-[address] Jaden bucio D[facility] Work Phone: Start: 12-17-2024 ambulatory [facility] Facility: [facility] Start: 12-17-[address] Michael matta MD -[facility] [employer] Work Phone: Start: 12-16-2024 ambulatory [facility] Facility: [facility] Start: 12-16-[address] [facility] Start: 12-03-2024 End: 12-20-[address] Alberto Mustafa MD Work Phone: [facility] Work Phone: Start: 12-03-2024 End: 12-20-[address] Jaden Forman DPM -[facility] Work Phone: Start: 12-03-[address] Jaden bucio [facility] Work Phone: Start: 11-26-2024 End: 11-26-[address] Michael Muller [employer] Work Phone: Start: 11-26-[address] Michael Moreno [facility] [employer] [employer] Work Phone: Start: 11-26-2024 End: 11-26-2024 ambulatory [facility] Facility:[facility] Start: 11-24-2024 End: 11-24-[address] Michael Muller [facility] Work Phone: Start: 11-24-[address] Michael Muller [place] Work Phone: Start: 11-24-2024 End: 11-24-2024 ambulatory [facility] Facility:[facility] Start: 11-05-2024 End: 11-05-[address] Alberto Mustafa MD Work Phone: [facility] Work Phone: Start: 11-05-2024 End: 11-05-[address] Michael Muller [employer] [facility] Work Phone: Start: 11-05-[address] Michael Moreno [facility] [place] Work Phone: Start: 11-05-2024 End: 11-05-2024 ambulatory [facility] Facility:[facility] Start: 10-27-2024 End: 10-27-[address] Alberto Mustafa MD Work Phone: [facility] Work Phone: Start: 10-27-2024 End: 10-27-[address] Micahel [facility] [employer] [facility] Work Phone: Start: 10-27-2024 End: 10-27-2024 ambulatory [facility] Facility:[facility] Start: 10-22-2024 End: 11-19-[address] Jaden Forman D[facility] Work Phone: Start: 10-22-[address] Jaden bucio [facility] Work Phone: Start: 10-22-2024 End: 11-19-2024 ambulatory [facility] Facility:[facility] Start: 10-15-2024 End: 10-20-[address] Alberto Mustafa MD Work Phone: [facility] Work Phone: Start: 10-15-2024 End: 10-20-[address] Jaden ATWOODM [facility] Work Phone: Start: 09-24-2024 End: 09-24-[address] Alberto Mustafa MD Work Phone: [facility] Work Phone: Start: 09-24-2024 End: 09-24-[address] Michael Meeks MD -[facility] [employer] Work Phone: Start: 09-24-[address] Michael matta MD -[facility] [place] Work Phone: Start: 09-24-2024 End: 09-24-2024 ambulatory [facility] Facility:[facility] Start: 09-22-2024 End: 09-22-[address] Alberto Mustafa MD Work Phone: [facility] Work Phone: Start: 09-22-2024 End: 09-22-[address] Michael Meeks MD -[facility] [place] Work Phone: Start: 09-22-[address] Michael matta MD -[facility] [place] Work Phone: Start: 09-22-2024 End: 09-22-2024 ambulatory [facility] Facility:[facility] Start: 09-19-2024 Non-patient / Non-visit Dr. Demetrius Barreto DO [facility] Work Phone: Start: 09-18-2024 Non-patient / Non-visit Dr. Demetrius Barreto DO [facility] Work Phone: Start: 09-17-2024 Non-patient / Non-visit Dr. Demetrius Barreto DO [facility] Work Phone: Start: 09-17-2024 ambulatory Alberto Mustafa Facilit y:[facility] Start: 09-17-2024 Non-patient / Non-visit Dr. Grace Lockhart MD -[facility] Start: 09-16-2024 End: 09-19-2024 ambulatory Altaf Meeks Facility:[facility] Start: 09-16-2024 End: 09-19-2024 Evaluation and management of inpatient Dr. Demetrius Nash DO -[facility] Work Phone: Start: 09-16-2024 End: 09-16-[address] Alberto Mustafa MD -Laboratory, [facility] Start: 09-16-2024 End: 09-16-2024 ambulatory Alberto Mustafa Facility:[facility] Start: 07-22-2024 End: 07-22-[address] Alberto Mustafa MD -Laboratory, [facility] Start: 07-22-2024 End: 07-22-2024 ambulatory Alberto Mustafa Facility:[facility] Start: 07-03-2024 End: 07-03-[address] Alberto Mustafa MD -Laboratory, [facility] Start: 07-03-2024 End: 07-03-2024 ambulatory Alberto Mustafa Facility:[facility] Start: 05-29-2024 End: 05-29-2024 ambulatory Alberto Mustafa Facility:[facility] Start: 05-01-2024 End: 05-01-2024 ambulatory Alberto Mustafa Facility:[facility] Start: 04-25-2024 End: 04-25-2024 ambulatory Alberto Mustafa Facility:[facility] Procedures Date Procedure Procedure Detail Performing Clinician Start: 09-18-2024 Serum inorganic phos phate measurement Dr. Alberto Mustafa MD Work Phone: Start: 09-17-[address] Alberto Mustafa MD Work Phone: Start: 09-16-[address] Alberto Mustafa MD Work Phone: Start: 09-16-2024 Urnls dip stick/tabl et reagent auto microscopy Dr. Alberto Mustafa MD Work Phone: Start: 09-16-2024 Plain chest X-ray Dr. Briana Mustafa MD Work Phone: Start: 09-16-2024 CT cervical spine wi thout contrast Dr. Alberto Mustafa MD Work Phone: Start: 09-16-2024 CT of head without contrast Dr. Alberto Mustafa MD Work Phone: Start: 09-16-2024 CT of lumbar spine Dr. Alberto Mustafa MD Work Phone: Plan of Treatment Date Care Activity Detail Author Start: 12-31-2024 [facility] Start: 09-19-2024 Patient discharge [facility] Start: 09-16-2024 Consultation for treatment [facility] Start: 09-16-2024 Following clinical p athway protocol [facility] Start: 09-16-2024 Assessment of risk o f venous thromboembolism [facility] Start: 09-16-2024 Insertion of cathete r into peripheral vein [facility] Start: 09-16-2024 Measuring intake and output [facility] Start: 09-16-2024 Oxygen therapy [facility] Start: 09-16-2024 Providing care accor ding to standard [facility] Start: 09-16-2024 Provision of activit y privileges [facility] Start: 09-16-2024 Referral to occupati onal therapist [facility] Start: 09-16-[address] [facility] Start: 09-16-2024 [facility] Start: 09-16-[address] [facility] Start: 09-16-2024 [facility] Start: 09-16-[address] [facility] Start: 09-16-2024 [facility] Start: 09-16-2024 Patient referral to dietitian [facility] Patient Education ED Skin Tear ( Skin Avulsion) [facility] Work Phone: Patient referral [facility] Work Phone: Immunizations Immunization Date Immunization Notes Care Provider Fa mina 12-31-2024 tetanus toxoid, redu jean pierre diphtheria toxoid, and acellular pertussis vaccine, adsorbed Dr. Alberto Mustafa MD Work Phone: [facility] Payers Date Payer Category Payer Medicare [id number] 2024 Self-pay 2024 Unknown [id number] Unknown [id number] 2.16.8 [id number] Unknown [id number] 2.16.8 40.1.344374.3.579.2.462 Unknown [id number] 2.16.8 40.1.299851.3.579.2.462 Unknown [id number] 2.16.8 40.1.293739.3.579.2.462 Unknown [id number] 2.16.8 40.1.640111.3.579.2.462 Unknown [id number] 2.16.8 40.1.413025.3.579.2.462 Unknown [id number] 2.16.8 40.1.210703.3.579.2.462 Unknown [id number] 2.16.8 40.1.882271.3.579.2.462 Unknown [id number] 2.16.8 40.1.484083.3.579.2.462 Unknown [id number] 2.16.8 40.1.514734.3.579.2.462 Unknown [id number] 2.16.8 40.1.173061.3.579.2.462 Unknown [id number] 2.16.8 40.1.882930.3.579.2.462 Unknown [id number] 2.16.8 40.1.161489.3.579.2.462 Unknown [id number] 2.16.8 40.1.740367.3.579.2.462 Unknown [id number] 2.16.8 40.1.491338.3.579.2.462 Unknown [id number] 2.16.8 40.1.379266.3.579.2.462 Unknown [id number] 2.16.8 40.1.086730.3.579.2.462 Unknown [id number] 2.16.8 40.1.671632.3.579.2.462 Unknown [id number] 2.16.8 40.1.051115.3.579.2.462 Unknown [id number] 2.16.8 40.1.550713.3.579.2.462 Unknown [id number] 2.16.8 40.1.195650.3.579.2.462 Unknown [id number] 2.16.8 40.1.031904.3.579.2.462 Unknown [id number] 2.16.8 40.1.844307.3.579.2.462 Unknown [id number] 2.16.8 40.1.831225.3.579.2.462 Social History Date Type Detail Facility Start: 09-16-2024 End: 12-31-2024 Tobacco smoking status NHIS Never smoked tobacco (finding) [facility] Start: 10-21-2024 End: 11-18-2024 Sex Male (finding) [facility] Start: 1935 Sex Assigned At Male [facility] Goals Date Patient Goal Desired Activity /State Functional Status Date Assessment Result Facility 09-19-2024 Functional status Assist with Urinal James [facility] Work Phone: Mental Status Date Assessment Result Facility 09-19-2024 Cognitive function Voice/Name Aimee Byrne [facility] Work Phone: Clinical Notes 09-16-2024 to 12-03-2024 Note Date & Type Note Facility 12-03-2024 Progress note Note Date/Time December 03, 2024 2:36pm [facility] [address] [place] [address] Progress Note - Wound Care 12/03/24 1433 MR#: [id number] Acct: [id number] Name: GANESH FLORES Rep #:[id number] : 1935 89 From: Jaden MONAHAN PCP: Dr. Alberto Mustafa MD Status:RE G RCR Location: History of Present Illness Date of Service: 12/03/24 Chief Complaint: Full-thickness wound left foot History of Wound: Full-thickness wound left foot Progress of Wound: Stable left foot wound Subjective Subjective Mr. Elmore is a 81-year-old male presenting to clinic today for follow-up evaluation of full-thickness wound to the plantar aspect of the subfifth metatarsal head left foot. He also has a thickened callus to the right foot that he like looked at. He has been getting dressing changes per nursing staff and orders. Denies trauma. Denies constitutional symptoms. No other pedal complaints at this time. Objective Data Objective Data Vital Signs: Vital Signs Temp Pulse Resp BP O2 Del Method 97 F L 78 18 133/68 H Room Air 12/03/24 13:22 12/03/24 13:22 12/03/24 13:22 12/03/24 13:22 12/03/24 13:22 Oxygen Delivery Method Room Air Physical Exam Narrative Vascular: DP and PT pulses are faintly palpable to left lower extremity. CFT isbrisk. Skin temperature gradient is warm to warm from proximal ankle to distal digit. No erythema. Neurologic: Light touch intact. Epicritic sensation is intact. Patient does respond to painful stimuli. Dermatological: Hyperkeratotic tissue appreciated to the lateral aspect of the fifth metatarsal head right foot, no signs of infection. Full-thickness wound to the subfifth metatarsal head of the left foot measuring 0.9 x 0.4 x 0.1 cm. Wound base is granular with no sign of infection. No drainage or sign of infection. Excisional debridement down to and including subcutaneous tissue with a number 5mm dermal curette to the subfifth metatarsal full-thickness wound to the left foot without incident. Predebridement measurement was 0.8 x 0.2 x 0.1 cm.. Postdebridement measurement is 0.9 x 0.4 x 0.1 cm. Musculoskeletal: No pain on palpation to full-thickness wound. No pain with calf compression. Debridement Note Debridement Note Debridement Free Text: Excisional debridement down to and including subcutaneoustissue with a number 5 mm dermal curette to the subfifth metatarsal full-thickness wound to the left foot without incident. Predebridement measurement was 0.8 x 0.2 x 0.1 cm.. Postdebridement measurement is 0.9 x 0.4 x 0.1 cm. Post-Debridement Measurements and Additional Note: Post-Debridement Measurements/Treatment - Nurse 1 - General Ulcer Assessment Start: 11/26/24 13:16 Freq: Status: Active Protocol: [email or web address] Activity Type Activity Date Activity User E-sign Co-sign Detail Recorded Client Recorded Date Recorded By Document 11/26/24 13:16 KW [id number] 11/26/24 13:25 KW Document 12/03/24 13:22 MD [id number] 12/03/24 13:29 MD 11/26/24 12/03/24 13:16 13:22 - Today's Visit Information Type of service Follow-up Visit Follow-up Visit (Physician/STACKER (Physician/STACKER ) ) Arrival Mode Ambulatory, Ambulatory, Walker Walker Accompanied by self Patient Identification Verified (Name & Yes Yes ) Safety Precautions Fall Prevention Vital Signs Temperature (97.8 F-99.1 F) 97.8 F 97 F L Temperature Source Temporal Temporal Pulse Rate (60-100) 71 78 Pulse Location Monitor Monitor Respiratory Rate (12-18) 16 18 Respiratory rate source Observation Observation Oxygen Delivery Method Room Air Room Air Blood Pressure (90/60-120/80) 142/65 H 133/68 H Blood Pressure Mean (mm Hg) 90 89 Source Monitor Monitor Position Semi-Fowlers Sitting Blood Pressure Location Left Arm Left Arm History Since Last Visit- (Skip if this is Patient's initial visit) Have you changed medications since your No last visit? Any new allergies or adverse reactions No Had a fall/change in ADL's that may No increase risk of falls Signs or symptoms of abuse and/or No neglect since last visit Have you been in the hospital since your No last visit? Has dressing in place as prescribed Yes Yes Has compression in place as prescribed No Yes Has offloadiing in place as prescribed N/A Yes Experienced any changes in pain level or No Yes management Left Footwear Regular Shoe Regular Shoe Right Footwear Regular Shoe Regular Shoe Pain Scale: 0-10 Numeric Is Patient Pain Free? Yes Yes WC - Nurse 1 - General Ulcer Measurement Start: 11/26/24 13:16 Freq: Status: Active Protocol: Activity Type Activity Date Activity User E-sign Co-sign Detail Recorded Client Recorded Date Recorded By Document 11/26/24 13:16 KW [id number] 11/26/24 13:25 KW Document 12/03/24 13:22 MD [id number] 12/03/24 13:29 MD 11/26/24 12/03/24 13:16 13:22 Wound Center Nurse 1 Left Lateral Foot -Current Size (cm) - Length 1 0.9 -Current Size (cm) - Width 0.3 0.5 -Current Size (cm) - Depth 0.2 0.2 -Total Square Cm 0.3 0.45 -Date of Last Picture (Recall this 11/26/24 field) -Photo Taken No -Tunneling No -Undermining/Tunneling No -Circular Undermining No -Exudate Amt Large Medium -Exudate Type Serosanguineous Serous -Wound Margin Thickened Flat & Intact -Granulation Amt Large (67-100%) Medium (34-66%) -Granulation Quality Red Pale,[place] -Necrosis Amt Medium (34-66%) -Necrotic Tissue Type Adherent Slough -Texture (Alyce-wound Skin Appearance) Assessed,Callus Assessed -Moisture (Alyce-wound Skin Appearance) Assessed, Assessed Maceration -Color (Alyce-wound Skin Appearance) Assessed Assessed -Temperature (Alyce-wound Skin No Abnormality No Abnormality Appearance) (Pt Warm) (Pt Warm) -Tenderness on Palpation (Alyce-wound No No Skin Appearance) -Ulcer Cleansing Rinsed/ Soap and Water Irrigated with Saline -Foul Odor after Cleansing No No -Anesthetic Used 5% Lidocaine 5% Lidocaine Gel Gel Left Calf (cm) 38.5 36.5 Left Ankle (cm) 24 24 WC - Nurse 2 - General Ulcer CM Notes Start: 11/26/24 13:16 Freq: Status: Active Protocol: Activity Type Activity Date Activity User E-sign Co-sign Detail Recorded Client Recorded Date Recorded By Document 11/26/24 13:30 [id number] 11/26/24 13:36 Document 12/03/24 13:52 [id number] 12/03/24 13:54 11/26/24 12/03/24 13:30 13:52 Wound Center Nurse 2 Left Lateral Foot -Time 13:31 13:52 -Correct Patient Yes Yes -Correct Side, Site, Position Yes Yes -Correct Procedure Yes Yes -Procedure Performed Yes Yes -Type of Procedure Debridement Debridement -Clinical Debridement Subcutaneous Subcutaneous -Tissue Removed Subcutaneous Subcutaneous -Post Debridement (cm) - Length 1.0 -Post Debridement (cm) - Width 0.4 -Post Debridement (cm) - Depth 0.2 -Total Square (Post) (cm) 0.40 -Area of Debridement (cm) - Length 1.0 -Area of Debridement (cm) - Width 0.4 -Total Square (Area) (cm) 0.40 -Tunneling No No -Undermining/Tunneling No No -Circular Undermining No No -Wound/Ulcer Outcome Not Healed Not Healed -Ulcer Cleansing Rinsed/ Rinsed/ Irrigated with Irrigated with Saline Saline -Foul Odor after Cleansing No No -Bioengineered Tissue No No -Bleeding Controlled with Pressure Pressure -Treatment Response Procedure Procedure Tolerated Well Tolerated Well -Offloading Yes No -Type of Offloading Surgical Shoe -Debridement - Subq, 1st 20sq cm Yes Yes Pain Scale: 0-10 Numeric Is Patient Pain Free? Yes Yes - Nurse 3 - General Ulcer D/C NN Start: 11/26/24 13:16 Freq: Status: Active Protocol: Activity Type Activity Date Activity User E-sign Co-sign Detail Recorded Client Recorded Date Recorded By Document 11/26/24 13:51 MD [id number] 11/26/24 13:53 MD Document 12/03/24 14:07 MD [id number] 12/03/24 14:11 MD 11/26/24 12/03/24 13:51 14:07 Wound Care Center Nurse 3 Left Lateral Foot -Ulcer Cleansing Soap and Water -Foul Odor after Cleansing No No -Negative Pressure Wound Therapy N/A N/A -Other Dressing betadine betadine -Primary Dressing Covered/Secured with Dry Gauze,Dry Dry Gauze & Gauze & Roll Roll Gauze, Gauze,Secured Secured with with Tape Tape LLE -Tubular Bandage Single Layer Single Layer -Size of Tubigrip Used Size D Size D -Size D ($) 1 1 Pain Scale: 0-10 Numeric Is Patient Pain Free? Yes Yes WC - Visit Discharge Discharge Condition Stable Stable Ambulatory Status Ambulatory Ambulatory Transportation Private Auto Private Auto Medication Reconcilliation completed & No No provided to patient/care provider Clinical Summary of Care Provided Yes Yes Notes: pt verbalized understanding of wound dressing. Assessment/Plan Assessment/Plan (1) Non-pressure chronic ulcer of other part of left foot with fat layer exposed: CODE(S): L97.522 - Non-pressure chronic ulcer of other part of left foot with fat layer exposed PLAN: Patient was examined and evaluated. All findings were discussed with the patient. All questions were answered to the patient satisfaction. Excisional debridement down to and including subcutaneous tissue with a number 5mm dermal curette to the subfifth metatarsal full-thickness wound to the left foot without incident. Predebridement measurement was 0.8 x 0.2 x 0.1 cm.. Postdebridement measurement is 0.9 x 0.4 x 0.1 cm. The left foot was clean and patted dry. Betadine paint was applied to the full-thickness wound followed by dry sterile dressing. Patient will be placed in a Tubigrip. Offloading pad wasplaced in the patient's athletic shoe underneath the subfifth metatarsal head left foot. He will continue to ambulate as tolerated with a walker. The patient's hyperkeratotic tissue right foot was debrided down to including normal limits with a tissue nipper and #15 blade done without incident. Especially for the procedure. No ulcer was noted after debridement. Patient will follow-up in 1 week 12/03/24 0927 <Electronically signed by Jaden Forman DPM> Cosigner Signature (if applicable): CC: ~ Signed [facility] Work Phone: 1(490) 459-610805-14-2025 Progress note [facility] [address] [place] [address] Progress Note - Wound Care 12/03/24 1433 MR#: [id number] Acct: [id number] Name: GANESH FLORES Rep #:[id number] : 1935 89 From: Jaden MONAHAN PCP: Dr. Alberto Mustafa MD Status:RE G RCR Location: History of Present Illness Date of Service: 12/03/24 Chief Complaint: Full-thickness wound left foot History of Wound: Full-thickness wound left foot Progress of Wound: Stable left foot wound Subjective Subjective Mr. Elmore is a 81-year-old male presenting to clinic today for follow-up evaluation of full-thickness wound to the plantar aspect of the subfifth metatarsal head left foot. He also has a thickened callus to the right foot that he like looked at. He has been getting dressing changes per nursing staffand orders. Denies trauma. Denies constitutional symptoms. No other pedal complaints at this time. Objective Data Objective Data Vital Signs: Vital Signs Temp Pulse Resp BP O2 Del Method 97 F L 78 18 133/68 H Room Air 12/03/24 13:22 12/03/24 13:22 12/03/24 13:22 12/03/24 13:22 12/03/24 13:22 Oxygen Delivery Method Room Air Physical Exam Narrative Vascular: DP and PT pulses are faintly palpable to left lower extremity. CFT isbrisk. Skin temperature gradient is warm to warm from proximal ankle to distal digit. No erythema. Neurologic: Light touch intact. Epicritic sensation is intact. Patient does respond to painful stimuli. Dermatological: Hyperkeratotic tissue appreciated to the lateral aspect of the fifth metatarsal head right foot, no signs of infection. Full-thickness wound to the subfifth metatarsal head of the left foot measuring 0.9 x 0.4 x 0.1 cm. Wound base is granular with no sign of infection. No drainage or sign of infection. Excisional debridement down to and including subcutaneous tissue with a number 5mm dermal curette to the subfifth metatarsal full-thickness wound to the left foot without incident. Predebridement measurement was 0.8 x 0.2 x 0.1 cm.. Postdebridement measurement is 0.9 x 0.4 x 0.1 cm. Musculoskeletal: No pain on palpation to full-thickness wound. No pain with calf compression. Debridement Note Debridement Note Debridement Free Text: Excisional debridement down to and including subcutaneoustissue with a number 5 mm dermal curette to the subfifth metatarsal full-thickness wound to the left foot without incident. Predebridement measurement was 0.8 x 0.2 x 0.1 cm.. Postdebridement measurement is 0.9 x 0.4 x 0.1 cm. Post-Debridement Measurements and Additional Note: Post-Debridement Measurements/Treatment WC - Nurse 1 - General Ulcer Assessment Start: 11/26/24 13:16 Freq: Status: Active Protocol: DANITA Activity Type Activity Date Activity User E-sign Co-sign Detail Recorded Client Recorded Date Recorded By Document 11/26/24 13:16 KW [id number] 11/26/24 13:25 KW Document 12/03/24 13:22 MD [id number] 12/03/24 13:29 MD 11/26/24 12/03/24 13:16 13:22 - Today's Visit Information Type of service Follow-up Visit Follow-up Visit (Physician/STACKER (Physician/STACKER ) ) Arrival Mode Ambulatory, Ambulatory, Walker Walker Accompanied by self Patient Identification Verified (Name & Yes Yes ) Safety Precautions Fall Prevention Vital Signs Temperature (97.8 F-99.1 F) 97.8 F 97 F L Temperature Source Temporal Temporal Pulse Rate (60-100) 71 78 Pulse Location Monitor Monitor Respiratory Rate (12-18) 16 18 Respiratory rate source Observation Observation Oxygen Delivery Method Room Air Room Air Blood Pressure (90/60-120/80) 142/65 H 133/68 H Blood Pressure Mean (mm Hg) 90 89 Source Monitor Monitor Position Semi-Fowlers Sitting Blood Pressure Location Left Arm Left Arm History Since Last Visit- (Skip if this is Patient's initial visit) Have you changed medications since your No last visit? Any new allergies or adverse reactions No Had a fall/change in ADL's that may No increase risk of falls Signs or symptoms of abuse and/or No neglect since last visit Have you been in the hospital since your No last visit? Has dressing in place as prescribed Yes Yes Has compression in place as prescribed No Yes Has offloadiing in place as prescribed N/A Yes Experienced any changes in pain level or No Yes management Left Footwear Regular Shoe Regular Shoe Right Footwear Regular Shoe Regular Shoe Pain Scale: 0-10 Numeric Is Patient Pain Free? Yes Yes WC - Nurse 1 - General Ulcer Measurement Start: 11/26/24 13:16 Freq: Status: Active Protocol: Activity Type Activity Date Activity User E-sign Co-sign Detail Recorded Client Recorded Date Recorded By Document 11/26/24 13:16 KW [id number] 11/26/24 13:25 KW Document 12/03/24 13:22 MT [id number] 12/03/24 13:29 MT 11/26/24 12/03/24 13:16 13:22 Wound Center Nurse 1 Left Lateral Foot -Current Size (cm) - Length 1 0.9 -Current Size (cm) - Width 0.3 0.5 -Current Size (cm) - Depth 0.2 0.2 -Total Square Cm 0.3 0.45 -Date of Last Picture (Recall this 11/26/24 field) -Photo Taken No -Tunneling No -Undermining/Tunneling No -Circular Undermining No -Exudate Amt Large Medium -Exudate Type Serosanguineous Serous -Wound Margin Thickened Flat & Intact -Granulation Amt Large (67-100%) Medium (34-66%) -Granulation Quality Red Pale,[place] -Necrosis Amt Medium (34-66%) -Necrotic Tissue Type Adherent Slough -Texture (Alyce-wound Skin Appearance) Assessed,Callus Assessed -Moisture (Alyce-wound Skin Appearance) Assessed, Assessed Maceration -Color (Alyce-wound Skin Appearance) Assessed Assessed -Temperature (Alyce-wound Skin No Abnormality No Abnormality Appearance) (Pt Warm) (Pt Warm) -Tenderness on Palpation (Alyce-wound No No Skin Appearance) -Ulcer Cleansing Rinsed/ Soap and Water Irrigated with Saline -Foul Odor after Cleansing No No -Anesthetic Used 5% Lidocaine 5% Lidocaine Gel Gel Left Calf (cm) 38.5 36.5 Left Ankle (cm) 24 24 WC - Nurse 2 - General Ulcer CM Notes Start: 11/26/24 13:16 Freq: Status: Active Protocol: Activity Type Activity Date Activity User E-sign Co-sign Detail Recorded Client Recorded Date Recorded By Document 11/26/24 13:30 [id number] 11/26/24 13:36 Document 12/03/24 13:52 [id number] 12/03/24 13:54 11/26/24 12/03/24 13:30 13:52 Wound Center Nurse 2 Left Lateral Foot -Time 13:31 13:52 -Correct Patient Yes Yes -Correct Side, Site, Position Yes Yes -Correct Procedure Yes Yes -Procedure Performed Yes Yes -Type of Procedure Debridement Debridement -Clinical Debridement Subcutaneous Subcutaneous -Tissue Removed Subcutaneous Subcutaneous -Post Debridement (cm) - Length 1.0 -Post Debridement (cm) - Width 0.4 -Post Debridement (cm) - Depth 0.2 -Total Square (Post) (cm) 0.40 -Area of Debridement (cm) - Length 1.0 -Area of Debridement (cm) - Width 0.4 -Total Square (Area) (cm) 0.40 -Tunneling No No -Undermining/Tunneling No No -Circular Undermining No No -Wound/Ulcer Outcome Not Healed Not Healed -Ulcer Cleansing Rinsed/ Rinsed/ Irrigated with Irrigated with Saline Saline -Foul Odor after Cleansing No No -Bioengineered Tissue No No -Bleeding Controlled with Pressure Pressure -Treatment Response Procedure Procedure Tolerated Well Tolerated Well -Offloading Yes No -Type of Offloading Surgical Shoe -Debridement - Subq, 1st 20sq cm Yes Yes Pain Scale: 0-10 Numeric Is Patient Pain Free? Yes Yes - Nurse 3 - General Ulcer D/C NN Start: 11/26/24 13:16 Freq: Status: Active Protocol: Activity Type Activity Date Activity User E-sign Co-sign Detail Recorded Client Recorded Date Recorded By Document 11/26/24 13:51 MD [id number] 11/26/24 13:53 MD Document 12/03/24 14:07 MD [id number] 12/03/24 14:11 MD 11/26/24 12/03/24 13:51 14:07 Wound Care Center Nurse 3 Left Lateral Foot -Ulcer Cleansing Soap and Water -Foul Odor after Cleansing No No -Negative Pressure Wound Therapy N/A N/A -Other Dressing betadine betadine -Primary Dressing Covered/Secured with Dry Gauze,Dry Dry Gauze & Gauze & Roll Roll Gauze, Gauze,Secured Secured with with Tape Tape LLE -Tubular Bandage Single Layer Single Layer -Size of Tubigrip Used Size D Size D -Size D ($) 1 1 Pain Scale: 0-10 Numeric Is Patient Pain Free? Yes Yes WC - Visit Discharge Discharge Condition Stable Stable Ambulatory Status Ambulatory Ambulatory Transportation Private Auto Private Auto Medication Reconcilliation completed & No No provided to patient/care provider Clinical Summary of Care Provided Yes Yes Notes: pt verbalized understanding of wound dressing. Assessment/Plan Assessment/Plan (1) Non-pressure chronic ulcer of other part of left foot with fat layer exposed: CODE(S): L97.522 - Non-pressure chronic ulcer of other part of left foot with fat layer exposed PLAN: Patient was examined and evaluated. All findings were discussed with the patient. All questions were answered to the patient satisfaction. Excisional debridement down to and including subcutaneous tissue with a number 5mm dermal curette to the subfifth metatarsal full-thickness wound to the left foot without incident. Predebridement measurement was 0.8 x 0.2 x 0.1 cm.. Postdebridement measurement is 0.9 x 0.4 x 0.1 cm. The left foot was clean and patted dry. Betadine paint was applied to the full-thickness wound followed by dry sterile dressing. Patient will be placed in a Tubigrip. Offloading pad wasplaced in the patient's athletic shoe underneath the subfifth metatarsal head left foot. He will continue to ambulate as tolerated with a walker. The patient's hyperkeratotic tissue right foot was debrided down to including normal limits with a tissue nipper and #15 blade done without incident. Especially for the procedure. No ulcer was noted after debridement. Patient will follow-up in 1 week 12/03/24 1436 Cosigner Signature (if applicable): CC: ~ Signed [facility]05-07-2025 Progress note Author Jaden Forman [facility] Note Date/Time November 26, 2024 1:47pm [facility] [address] [place] [address] Progress Note - Wound Care 11/26/24 1344 MR#: [id number] Acct: [id number] Name: GANESH FLORES JAX Rep #:[id number] : 1935 88 From: Jaden Sabillon PM PCP: Dr. Alberto Mustafa MD Status:RE G RCR Location: History of Present Illness Date of Service: 11/26/24 Chief Complaint: Full-thickness wound left foot History of Wound: Full-thickness wound left foot Progress of Wound: Stable left foot wound Subjective Subjective Mr. Flores is a 88-year-old male presenting to wound care center today for follow- up evaluation of full-thickness wound to the plantar left foot at the level of the subfifth metatarsal head. Patient has been getting dressing changes per nursing staff. He is ambulatory. He is not diabetic. He denies any new skin breakdown denies trauma. Denies constitutional symptoms. No other pedal complaints at this time. Objective Data Objective Data Vital Signs: Vital Signs Temp Pulse Resp BP O2 Del Method 97.8 F 71 16 142/65 H Room Air 11/26/24 13:16 11/26/24 13:16 11/26/24 13:16 11/26/24 13:16 11/26/24 13:16 Oxygen Delivery Method Room Air Physical Exam Narrative Vascular: DP and PT pulses are faintly palpable to left lower extremity. CFT isbrisk. Skin temperature gradient is warm to warm from proximal ankle to distal digit. No erythema. Neurologic: Light touch intact. Epicritic sensation is intact. Patient does respond to painful stimuli. Dermatological: Full-thickness wound to the subfifth metatarsal head of the leftfoot measuring 1.0 x 0.4 x 0.2 cm. Evidence of hyperkeratotic periwound with maceration. Wound base is granular with no sign of infection. Wound base is granular. No drainage or sign of infection. Excisional debridement down to and including subcutaneous tissue with a number 5mm dermal curette to the subfifth metatarsal full-thickness wound to the left foot without incident. Predebridement measurement was 0.8 x 0.3 x 0.1 cm.. Postdebridement measurement is 1.0 x 0.4 x 0.2 cm. Musculoskeletal: No pain on palpation to full-thickness wound. No pain with calf compression. Debridement Note Debridement Note Debridement Free Text: Excisional debridement down to and including subcutaneoustissue with a number 5 mm dermal curette to the subfifth metatarsal full-thickness wound to the left foot without incident. Predebridement measurement was 0.8 x 0.3 x 0.1 cm.. Postdebridement measurement is 1.0 x 0.4 x 0.2 cm. Post-Debridement Measurements and Additional Note: Post-Debridement Measurements/Treatment WC - Nurse 1 - General Ulcer Assessment Start: 11/26/24 13:16 Freq: Status: Active Protocol: DANITA Activity Type Activity Date Activity User E-sign Co-sign Detail Recorded Client Recorded Date Recorded By Document 11/26/24 13:16 KW [id number] 11/26/24 13:25 KW 11/26/24 13:16 WC - Today's Visit Information Type of service Follow-up Visit (Physician/STACKER ) Arrival Mode Ambulatory, Walker Patient Identification Verified (Name & Yes ) Vital Signs Temperature (97.8 F-99.1 F) 97.8 F Temperature Source Temporal Pulse Rate (60-100) 71 Pulse Location Monitor Respiratory Rate (12-18) 16 Respiratory rate source Observation Oxygen Delivery Method Room Air Blood Pressure (90/60-120/80) 142/65 H Blood Pressure Mean (mm Hg) 90 Source Monitor Position Semi-Fowlers Blood Pressure Location Left Arm History Since Last Visit- (Skip if this is Patient's initial visit) Have you changed medications since your No last visit? Any new allergies or adverse reactions No Had a fall/change in ADL's that may No increase risk of falls Signs or symptoms of abuse and/or No neglect since last visit Have you been in the hospital since your No last visit? Has dressing in place as prescribed Yes Has compression in place as prescribed No Has offloadiing in place as prescribed N/A Experienced any changes in pain level or No management Left Footwear Regular Shoe Right Footwear Regular Shoe Pain Scale: 0-10 Numeric Is Patient Pain Free? Yes - Nurse 1 - General Ulcer Measurement Start: 11/26/24 13:16 Freq: Status: Active Protocol: Activity Type Activity Date Activity User E-sign Co-sign Detail Recorded Client Recorded Date Recorded By Document 11/26/24 13:16 KW [id number] 11/26/24 13:25 KW 11/26/24 13:16 Wound Center Nurse 1 Left Lateral Foot -Current Size (cm) - Length 1 -Current Size (cm) - Width 0.3 -Current Size (cm) - Depth 0.2 -Total Square Cm 0.3 -Date of Last Picture (Recall this 11/26/24 field) -Exudate Amt Large -Exudate Type Serosanguineous -Wound Margin Thickened -Granulation Amt Large (67-100%) -Granulation Quality Red -Texture (Alyce-wound Skin Appearance) Assessed,Callus -Moisture (Alyce-wound Skin Appearance) Assessed, Maceration -Color (Alyce-wound Skin Appearance) Assessed -Temperature (Alyce-wound Skin No Abnormality Appearance) (Pt Warm) -Tenderness on Palpation (Alyce-wound No Skin Appearance) -Ulcer Cleansing Rinsed/ Irrigated with Saline -Foul Odor after Cleansing No -Anesthetic Used 5% Lidocaine Gel Left Calf (cm) 38.5 Left Ankle (cm) 24 WC - Nurse 2 - General Ulcer CM Notes Start: 11/26/24 13:16 Freq: Status: Active Protocol: Activity Type Activity Date Activity User E-sign Co-sign Detail Recorded Client Recorded Date Recorded By Document 11/26/24 13:30 CAYLA [id number] 11/26/24 13:36 CAYLA 11/26/24 13:30 Wound Center Nurse 2 Left Lateral Foot -Time 13:31 -Correct Patient Yes -Correct Side, Site, Position Yes -Correct Procedure Yes -Procedure Performed Yes -Type of Procedure Debridement -Clinical Debridement Subcutaneous -Tissue Removed Subcutaneous -Post Debridement (cm) - Length 1.0 -Post Debridement (cm) - Width 0.4 -Post Debridement (cm) - Depth 0.2 -Total Square (Post) (cm) 0.40 -Area of Debridement (cm) - Length 1.0 -Area of Debridement (cm) - Width 0.4 -Total Square (Area) (cm) 0.40 -Tunneling No -Undermining/Tunneling No -Circular Undermining No -Wound/Ulcer Outcome Not Healed -Ulcer Cleansing Rinsed/ Irrigated with Saline -Foul Odor after Cleansing No -Bioengineered Tissue No -Bleeding Controlled with Pressure -Treatment Response Procedure Tolerated Well -Offloading Yes -Type of Offloading Surgical Shoe -Debridement - Subq, 1st 20sq cm Yes Pain Scale: 0-10 Numeric Is Patient Pain Free? Yes Assessment/Plan Assessment/Plan (1) Non-pressure chronic ulcer of other part of left foot with fat layer exposed: CODE(S): L97.522 - Non-pressure chronic ulcer of other part of left foot with fat layer exposed PLAN: Patient was examined and evaluated. All findings were discussed with the patient. All questions were answered to the patient satisfaction. Excisional debridement down to and including subcutaneous tissue with a number 5mm dermal curette to the subfifth metatarsal full-thickness wound to the left foot without incident. Predebridement measurement was 0.8 x 0.3 x 0.1 cm.. Postdebridement measurement is 1.0 x 0.4 x 0.2 cm.. The left foot was clean andpatted dry. Betadine paint was applied to the full-thickness wound followed by dry sterile dressing. Patient will be placed in a Tubigrip. Offloading pad wasplaced on a surgical shoe and then donned to the left lower extremity. He will continue to ambulate as tolerated with a walker. I did recommend to the patient that would like to speak to his POA regarding possible surgical intervention with minimally invasive dorsiflexor osteotomy to the fifth metatarsal however I do not know if the patient will be compliant withpostoperative instructions. If the patient is not improving over the next 2 to 4 weeks we will recommend meeting with POA so we could possibly move forward with elective surgery to the left foot. Patient will follow-up in 1 week 11/26/24 1347 <Electronically signed by Jaden Forman DPM> Cosigner Signature (if applicable): CC: ~ Signed [facility] Work Phone: 1(170) 344-460305-07-2025 Progress note [facility] [address] [place] [id number] Progress Note - Wound Care 11/26/24 1344 MR#: [id number] Acct: [id number] Name: GANESH FLORES Rep #:[id number] : 1935 88 From: Jaden MONAHAN PCP: Dr. Alberto Mustafa MD Status:ESTEPHANIE Albrecht RCLauren Location: History of Present Illness Date of Service: 11/26/24 Chief Complaint: Full-thickness wound left foot History of Wound: Full-thickness wound left foot Progress of Wound: Stable left foot wound Subjective Subjective Mr. Flores is a 88-year-old male presenting to wound care center today for follow- up evaluation of full-thickness wound to the plantar left foot at the level of the subfifth metatarsal head. Patient has been getting dressing changes per nursing staff. He is ambulatory. He is not diabetic. He denies any new skin breakdown denies trauma. Denies constitutional symptoms. No other pedal complaints at this time. Objective Data Objective Data Vital Signs: Vital Signs Temp Pulse Resp BP O2 Del Method 97.8 F 71 16 142/65 H Room Air 11/26/24 13:16 11/26/24 13:16 11/26/24 13:16 11/26/24 13:16 11/26/24 13:16 Oxygen Delivery Method Room Air Physical Exam Narrative Vascular: DP and PT pulses are faintly palpable to left lower extremity. CFT isbrisk. Skin temperature gradient is warm to warm from proximal ankle to distal digit. No erythema. Neurologic: Light touch intact. Epicritic sensation is intact. Patient does respond to painful stimuli. Dermatological: Full-thickness wound to the subfifth metatarsal head of the leftfoot measuring 1.0 x 0.4 x 0.2 cm. Evidence of hyperkeratotic periwound with maceration. Wound base is granular with nosign of infection. Wound base is granular. No drainage or sign of infection. Excisional debridement down to and including subcutaneous tissue with a number 5mm dermal curette to the subfifth metatarsal full-thickness wound to the left foot without incident. Predebridement measurement was 0.8 x 0.3 x 0.1 cm.. Postdebridement measurement is 1.0 x 0.4 x 0.2 cm. Musculoskeletal: No pain on palpation to full-thickness wound. No pain with calf compression. Debridement Note Debridement Note Debridement Free Text: Excisional debridement down to and including subcutaneoustissue with a number 5 mm dermal curette to the subfifth metatarsal full-thickness wound to the left foot without incident. Predebridement measurement was 0.8 x 0.3 x 0.1 cm.. Postdebridement measurement is 1.0 x 0.4 x 0.2 cm. Post-Debridement Measurements and Additional Note: Post-Debridement Measurements/Treatment [id number] - Nurse 1 - General Ulcer Assessment Start: 11/26/24 13:16 Freq: Status: Active Protocol: WC.LOWEXT Activity Type Activity Date Activity User E-sign Co-sign Detail Recorded Client Recorded Date Recorded By Document 11/26/24 13:16 KW [id number] 11/26/24 13:25 11/26/24 13:16 - Today's Visit Information Type of service Follow-up Visit (Physician/STACKER ) Arrival Mode Ambulatory, Walker Patient Identification Verified (Name & Yes ) Vital Signs Temperature (97.8 F-99.1 F) 97.8 F Temperature Source Temporal Pulse Rate (60-100) 71 Pulse Location Monitor Respiratory Rate (12-18) 16 Respiratory rate source Observation Oxygen Delivery Method Room Air Blood Pressure (90/60-120/80) 142/65 H Blood Pressure Mean (mm Hg) 90 Source Monitor Position Semi-Fowlers Blood Pressure Location Left Arm History Since Last Visit- (Skip if this is Patient's initial visit) Have you changed medications since your No last visit? Any new allergies or adverse reactions No Had a fall/change in ADL's that may No increase risk of falls Signs or symptoms of abuse and/or No neglect since last visit Have you been in the hospital since your No last visit? Has dressing in place as prescribed Yes Has compression in place as prescribed No Has offloadiing in place as prescribed N/A Experienced any changes in pain level or No management Left Footwear Regular Shoe Right Footwear Regular Shoe Pain Scale: 0-10 Numeric Is Patient Pain Free? Yes - Nurse 1 - General Ulcer Measurement Start: 11/26/24 13:16 Freq: Status: Active Protocol: Activity Type Activity Date Activity User E-sign Co-sign Detail Recorded Client Recorded Date Recorded By Document 11/26/24 13:16 RIVAS [id number] 11/26/24 13:25 11/26/24 13:16 Wound Center Nurse 1 Left Lateral Foot -Current Size (cm) - Length 1 -Current Size (cm) - Width 0.3 -Current Size (cm) - Depth 0.2 -Total Square Cm 0.3 -Date of Last Picture (Recall this 11/26/24 field) -Exudate Amt Large -Exudate Type Serosanguineous -Wound Margin Thickened -Granulation Amt Large (67-100%) -Granulation Quality Red -Texture (Alyce-wound Skin Appearance) Assessed,Callus -Moisture (Alyce-wound Skin Appearance) Assessed, Maceration -Color (Alyce-wound Skin Appearance) Assessed -Temperature (Alyce-wound Skin No Abnormality Appearance) (Pt Warm) -Tenderness on Palpation (Alyce-wound No Skin Appearance) -Ulcer Cleansing Rinsed/ Irrigated with Saline -Foul Odor after Cleansing No -Anesthetic Used 5% Lidocaine Gel Left Calf (cm) 38.5 Left Ankle (cm) 24 WC - Nurse 2 - General Ulcer CM Notes Start: 11/26/24 13:16 Freq: Status: Active Protocol: Activity Type Activity Date Activity User E-sign Co-sign Detail Recorded Client Recorded Date Recorded By Document 11/26/24 13:30 JF [id number] 11/26/24 13:36 JF 11/26/24 13:30 Wound Center Nurse 2 Left Lateral Foot -Time 13:31 -Correct Patient Yes -Correct Side, Site, Position Yes -Correct Procedure Yes -Procedure Performed Yes -Type of Procedure Debridement -Clinical Debridement Subcutaneous -Tissue Removed Subcutaneous -Post Debridement (cm) - Length 1.0 -Post Debridement (cm) - Width 0.4 -Post Debridement (cm) - Depth 0.2 -Total Square (Post) (cm) 0.40 -Area of Debridement (cm) - Length 1.0 -Area of Debridement (cm) - Width 0.4 -Total Square (Area) (cm) 0.40 -Tunneling No -Undermining/Tunneling No -Circular Undermining No -Wound/Ulcer Outcome Not Healed -Ulcer Cleansing Rinsed/ Irrigated with Saline -Foul Odor after Cleansing No -Bioengineered Tissue No -Bleeding Controlled with Pressure -Treatment Response Procedure Tolerated Well -Offloading Yes -Type of Offloading Surgical Shoe -Debridement - Subq, 1st 20sq cm Yes Pain Scale: 0-10 Numeric Is Patient Pain Free? Yes Assessment/Plan Assessment/Plan (1) Non-pressure chronic ulcer of other part of left foot with fat layer exposed: CODE(S): L97.522 - Non-pressure chronic ulcer of other part of left foot with fat layer exposed PLAN: Patient was examined and evaluated. All findings were discussed with the patient. All questions were answered to the patient satisfaction. Excisional debridement down to and including subcutaneous tissue with a number 5mm dermal curette to the subfifth metatarsal full-thickness wound to the left foot without incident. Predebridement measurement was 0.8 x 0.3 x 0.1 cm.. Postdebridement measurement is 1.0 x 0.4 x 0.2 cm.. The left foot was clean andpatted dry. Betadine paint was applied to the full-thickness wound followed by dry sterile dressing. Patient will be placed in a Tubigrip. Offloading pad wasplaced on a surgical shoe and then donned to the left lower extremity. He will continue to ambulate as tolerated with a walker. I did recommend to the patient that would like to speak to his POA regarding possible surgical intervention with minimally invasive dorsiflexor osteotomy to the fifth metatarsal however I do not knowif the patient will be compliant withpostoperative instructions. If the patient is not improving over the next 2 to 4 weeks we will recommend meeting with POA so we could possibly move forward with elective surgery to the left foot. Patient will follow-up in 1 week 11/26/24 1347 Cosigner Signature (if applicable): CC: ~ Signed [facility]03-29-2025 Progress note Author Jaden Forman [facility] Note Date/Time October 18, 2024 8:2 7pm [facility] [address] [place] [address] Progress Note - Wound Care 10/18/242022 MR#: [id number] Acct: [id number] Name: GANESH FLORES Rep #:[id number] : 1935 88 From: Jaden MONAHAN PCP: Dr[facility] Alberto Mustafa MD [facility] Location: History of Present Illness Date of Service: 10/18/24 Chief Complaint: Full-thickness wound left foot History of Wound: Full-thickness wound left foot Progress of Wound: Stable left foot wound Subjective Subjective Mr. Flores is a 88-year-old male presenting the wound care center today follow-up evaluation of full-thickness wound. They have been doing dressing changes as instructed at his facility. He admits no pain to the left foot. He is wearing slippers today. He is walking with assistance of a walker. Denies any new onset of trauma. Denies constitutional symptoms. No other pedal complaints at this time. Objective Data Objective Data Vital Signs: Vital Signs Temp Pulse Resp BP O2 Del Method 96.7 F L 59 L 18 161/54 H Room Air 10/15/24 12:16 10/15/24 12:16 10/15/24 12:16 10/15/24 12:16 10/15/24 12:16 Oxygen Delivery Method Room Air Physical Exam Narrative Vascular: DP and PT pulses are faintly palpable to left lower extremity. CFT isbrisk. Skin temperature gradient is warm to warm from proximal ankle to distal digit. No erythema. Neurologic: Light touch intact. Epicritic sensation is intact. Patient does respond to painful stimuli. Dermatological: Full-thickness wound to the subfifth metatarsal head of the leftfoot measuring 0.8 x 0.3 x 0.1 cm. Wound base is granular. No drainage or signof infection. Evidence of hyperkeratotic periwound. Excisional debridement down to and including subcutaneous tissue with a number 5mm dermal curette to the subfifth metatarsal full-thickness wound to the left foot without incident. Predebridement measurement was 0.7 x 0.2 x 0.1 cm. Postdebridement measurement is 0.8 x 0.3 x 0.1 cm. Musculoskeletal: Muscle strength is 5 out of 5 to left lower extremity. No painon palpation to full-thickness wound. No pain with calf compression. Debridement Note Debridement Note Debridement Free Text: Excisional debridement down to and including subcutaneoustissue with a number 5 mm dermal curette to the subfifth metatarsal full-thickness wound to the left foot without incident. Predebridement measurement was 0.7 x 0.2 x 0.1 cm. Postdebridement measurement is 0.8 x 0.3 x 0.1 cm. Post-Debridement Measurements and Additional Note: Post-Debridement Measurements/Treatment - Nurse 1 - General Ulcer Assessment Start: 10/08/24 11:57 Freq: Status: Active Protocol: DANITA Activity Type Activity Date Activity User E-sign Co-sign Detail Recorded Client Recorded Date Recorded By Document 10/08/24 11:57 MT [id number] 10/08/24 12:07 MT Document 10/15/24 12:16 KW [id number] 10/15/24 12:20 KW 10/08/24 10/15/24 11:57 12:16 - Today's Visit Information Type of service Initial Visit Follow-up Visit (Physician/STACKER ) Arrival Mode Ambulatory, Ambulatory, Walker Walker Accompanied by self Patient Identification Verified (Name & Yes Yes ) Safety Precautions Fall Prevention Vital Signs Temperature (97.8 F-99.1 F) 97 F L 96.7 F L Temperature Source Temporal Temporal Pulse Rate (60-100) 67 59 L Pulse Location Monitor Monitor Respiratory Rate (12-18) 18 18 Respiratory rate source Observation Observation Oxygen Delivery Method Room Air Room Air Blood Pressure (90/60-120/80) 149/68 H 161/54 H Blood Pressure Mean (mm Hg) 95 89 Source Monitor Monitor Position Sitting Semi-Fowlers Blood Pressure Location Left Arm Right Arm History Since Last Visit- (Skip if this is Patient's initial visit) Have you changed medications since your No last visit? Any new allergies or adverse reactions No Had a fall/change in ADL's that may No increase risk of falls Signs or symptoms of abuse and/or No neglect since last visit Have you been in the hospital since your No last visit? Has dressing in place as prescribed Yes Has compression in place as prescribed N/A Has offloadiing in place as prescribed N/A Experienced any changes in pain level or No management Left Footwear Regular Shoe Regular Shoe Right Footwear Regular Shoe Regular Shoe Pain Scale: 0-10 Numeric Is Patient Pain Free? Yes Yes WC - Nurse 1 - General Ulcer Measurement Start: 10/08/24 11:57 Freq: Status: Active Protocol: Activity Type Activity Date Activity User E-sign Co-sign Detail Recorded Client Recorded Date Recorded By Document 10/08/24 11:57 MD [id number] 10/08/24 12:07 MT Document 10/15/24 12:16 KW [id number] 10/15/24 12:20 KW 10/08/24 10/15/24 11:57 12:16 Wound Center Nurse 1 Left Lateral Foot -Current Size (cm) - Length 1.4 0.1 -Current Size (cm) - Width 1.0 0.1 -Current Size (cm) - Depth 0.3 0.1 -Total Square Cm 1.40 0.01 -Date of Last Picture (Recall this 10/08/24 10/15/24 field) -Photo Taken Yes -Epithelialization Medium 34-66% -Tunneling No -Undermining/Tunneling Yes -Undermining/Tunneling Starts (O'clock 9 ) -Undermining/Tunneling Ends (O'clock) 12 -Maximum Distance (cm) 0.3 -Classification - Thickness Partial Thickness -Exudate Amt Medium Small -Exudate Type Serosanguineous Serosanguineous -Wound Margin Thickened & Distinct, Rolled Under Outline Attached -Granulation Amt Medium (34-66%) Small (1-33%) -Granulation Quality Pale,[place] -Necrosis Amt Medium (34-66%) Small (1-33%) -Necrotic Tissue Type Adherent Slough Adherent Slough -Texture (Alyce-wound Skin Appearance) Assessed Assessed,Callus -Moisture (Alyce-wound Skin Appearance) Assessed Assessed, Maceration -Color (Alyce-wound Skin Appearance) Assessed Assessed -Temperature (Alyce-wound Skin No Abnormality No Abnormality Appearance) (Pt Warm) (Pt Warm) -Tenderness on Palpation (Alyce-wound No No Skin Appearance) -Ulcer Cleansing Soap and Water Rinsed/ Irrigated with Saline -Foul Odor after Cleansing No No -Anesthetic Used 5% Lidocaine 5% Lidocaine Gel Gel -Wound Comment(s) not measured in nurse 1 Left Calf (cm) 25 Left Ankle (cm) 37.5 WC - Nurse 2 - General Ulcer CM Notes Start: 10/08/24 11:57 Freq: Status: Active Protocol: Activity Type Activity Date Activity User E-sign Co-sign Detail Recorded Client Recorded Date Recorded By Document 10/08/24 12:21 [id number] 10/08/24 12:25 Document 10/15/24 12:53 [id number] 10/15/24 12:55 10/08/24 10/15/24 12:21 12:53 Wound Center Nurse 2 Left Lateral Foot -Time 12:22 12:53 -Correct Patient Yes Yes -Correct Side, Site, Position Yes Yes -Correct Procedure Yes Yes -Procedure Performed Yes Yes -Type of Procedure Debridement Debridement -Clinical Debridement Subcutaneous Subcutaneous -Tissue Removed Subcutaneous Subcutaneous -Post Debridement (cm) - Length 1.0 0.8 -Post Debridement (cm) - Width 0.7 0.3 -Post Debridement (cm) - Depth 0.2 0.1 -Total Square (Post) (cm) 0.70 0.24 -Area of Debridement (cm) - Length 1.0 0.8 -Area of Debridement (cm) - Width 0.7 0.3 -Total Square (Area) (cm) 0.70 0.24 -Tunneling No No -Undermining/Tunneling No No -Circular Undermining No No -Wound/Ulcer Outcome Not Healed Not Healed -Ulcer Cleansing Rinsed/ Rinsed/ Irrigated with Irrigated with Saline Saline -Foul Odor after Cleansing No No -Bioengineered Tissue No No -Bleeding Controlled with Pressure Pressure -Treatment Response Procedure Procedure Tolerated Well Tolerated Well -Offloading No No -Debridement - Subq, 1st 20sq cm Yes Yes Pain Scale: 0-10 Numeric Is Patient Pain Free? Yes Yes - Nurse 3 - General Ulcer D/C NN Start: 10/08/24 11:57 Freq: Status: Active Protocol: Activity Type Activity Date Activity User E-sign Co-sign Detail Recorded Client Recorded Date Recorded By Document 10/08/24 15:07 0000 10/08/24 15:07 Document 10/15/24 13:07 [email or web address] [id number] 10/15/24 13:07 10/08/24 10/15/24 15:07 13:07 Wound Care Center Nurse 3 Left Lateral Foot -Ulcer Cleansing Rinsed/ Irrigated with Saline -Foul Odor after Cleansing No -Other Dressing betadine betadine gauze -Primary Dressing Covered/Secured with Dry Gauze, Dry Gauze & Secured with Roll Gauze, Tape Secured with Tape LLE -Tubular Bandage Single Layer -Size of Tubigrip Used Size E -Size E ($) 1 Pain Scale: 0-10 Numeric Is Patient Pain Free? Yes Yes - Visit Discharge Discharge Condition Stable Stable Ambulatory Status Ambulatory Ambulatory, Walker Transportation Private Auto Medication Reconcilliation completed & Yes No provided to patient/care provider Clinical Summary of Care Provided Yes Yes Assessment/Plan Assessment/Plan (1) Non-pressure chronic ulcer of other part of left foot with fat layer exposed: CODE(S): L97.522 - Non-pressure chronic ulcer of other part of left foot with fat layer exposed PLAN: Patient was examined and evaluated. All findings were discussed with the patient. All questions were answered to the patient satisfaction. Excisional debridement down to and including subcutaneous tissue with a number 5mm dermal curette to the subfifth metatarsal full-thickness wound to the left foot without incident. Predebridement measurement was 0.7 x 0.2 x 0.1 cm. Postdebridement measurement is 0.8 x 0.3 x 0.1 cm. The left foot was clean and patted dry. Betadine paint was applied to the full-thickness wound followed by dry sterile dressing. Patient will be placed in a Tubigrip. He will continue to ambulate as tolerated with a walker. Patient will follow-up in 1 week 10/18/242026 <Electronically signed by Jaden Forman DPM> Cosigner Signature (if applicable): CC: ~ Signed [facility] Work Phone: [phone]) 508-555303-29-2025 Progress note [facility] [address] [place] [address] Progress Note - Wound Care 10/18/242022 MR#: [id number] Acct: [id number] Name: GANESH FLORES Rep #:[id number] : 1935 88 From: Jaden MONAHAN PCP: Dr. Alberto Mustafa MD Status:RE G RCR Location: History of Present Illness Date of Service: 10/18/24 Chief Complaint: Full-thickness wound left foot History of Wound: Full-thickness wound left foot Progress of Wound: Stable left foot wound Subjective Subjective Mr. Flores is a 88-year-old male presenting the wound care center today follow-up evaluation of full-thickness wound. They have been doing dressing changes as instructed at his facility. He admits no pain to the left foot. He is wearing slippers today. He is walking with assistance of a walker. Denies any new onset of trauma. Denies constitutional symptoms. No other pedal complaints at this time. Objective Data Objective Data Vital Signs: Vital Signs Temp Pulse Resp BP O2 Del Method 96.7 F L 59 L 18 161/54 H Room Air 10/15/24 12:16 10/15/24 12:16 10/15/24 12:16 10/15/24 12:16 10/15/24 12:16 Oxygen Delivery Method Room Air Physical Exam Narrative Vascular: DP and PT pulses are faintly palpable to left lower extremity. CFT isbrisk. Skin temperature gradient is warm to warm from proximal ankle to distal digit. No erythema. Neurologic: Light touch intact. Epicritic sensation is intact. Patient does respond to painful stimuli. Dermatological: Full-thickness wound to the subfifth metatarsal head of the leftfoot measuring 0.8 x 0.3 x 0.1 cm. Wound base is granular. No drainage or signof infection. Evidence of hyperkeratotic periwound. Excisional debridement down to and including subcutaneous tissue with a number 5mm dermal curette to the subfifth metatarsal full-thickness wound to the left foot without incident. Predebridement measurement was 0.7 x 0.2 x 0.1 cm. Postdebridement measurement is 0.8 x 0.3 x 0.1 cm. Musculoskeletal: Muscle strength is 5 out of 5 to left lower extremity. No painon palpation to full-thickness wound. No pain with calf compression. Debridement Note Debridement Note Debridement Free Text: Excisional debridement down to and including subcutaneoustissue with a number 5 mm dermal curette to the subfifth metatarsal full-thickness wound to the left foot without incident. Predebridement measurement was 0.7 x 0.2 x 0.1 cm. Postdebridement measurement is 0.8 x 0.3 x 0.1 cm. Post-Debridement Measurements and Additional Note: Post-Debridement Measurements/Treatment - Nurse 1 - General Ulcer Assessment Start: 10/08/24 11:57 Freq: Status: Active Protocol: DANITA Activity Type Activity Date Activity User E-sign Co-sign Detail Recorded Client Recorded Date Recorded By Document 10/08/24 11:57 MD [id number] 10/08/24 12:07 MT Document 10/15/24 12:16 [id number] 10/15/24 12:20 10/08/24 10/15/24 11:57 12:16 - Today's Visit Information Type of service Initial Visit Follow-up Visit (Physician/STACKER ) Arrival Mode Ambulatory, Ambulatory, Walker Walker Accompanied by self Patient Identification Verified (Name & Yes Yes ) Safety Precautions Fall Prevention Vital Signs Temperature (97.8 F-99.1 F) 97 F L 96.7 F L Temperature Source Temporal Temporal Pulse Rate (60-100) 67 59 L Pulse Location Monitor Monitor Respiratory Rate (12-18) 18 18 Respiratory rate source Observation Observation Oxygen Delivery Method Room Air Room Air Blood Pressure (90/60-120/80) 149/68 H 161/54 H Blood Pressure Mean (mm Hg) 95 89 Source Monitor Monitor Position Sitting Semi-Fowlers Blood Pressure Location Left Arm Right Arm History Since Last Visit- (Skip if this is Patient's initial visit) Have you changed medications since your No last visit? Any new allergies or adverse reactions No Had a fall/change in ADL's that may No increase risk of falls Signs or symptoms of abuse and/or No neglect since last visit Have you been in the hospital since your No last visit? Has dressing in place as prescribed Yes Has compression in place as prescribed N/A Has offloadiing in place as prescribed N/A Experienced any changes in pain level or No management Left Footwear Regular Shoe Regular Shoe Right Footwear Regular Shoe Regular Shoe Pain Scale: 0-10 Numeric Is Patient Pain Free? Yes Yes WC - Nurse 1 - General Ulcer Measurement Start: 10/08/24 11:57 Freq: Status: Active Protocol: Activity Type Activity Date Activity User E-sign Co-sign Detail Recorded Client Recorded Date Recorded By Document 10/08/24 11:57 MD [id number] 10/08/24 12:07 MT Document 10/15/24 12:16 KW [id number] 10/15/24 12:20 KW 10/08/24 10/15/24 11:57 12:16 Wound Center Nurse 1 Left Lateral Foot -Current Size (cm) - Length 1.4 0.1 -Current Size (cm) - Width 1.0 0.1 -Current Size (cm) - Depth 0.3 0.1 -Total Square Cm 1.40 0.01 -Date of Last Picture (Recall this 10/08/24 10/15/24 field) -Photo Taken Yes -Epithelialization Medium 34-66% -Tunneling No -Undermining/Tunneling Yes -Undermining/Tunneling Starts (O'clock 9 ) -Undermining/Tunneling Ends (O'clock) 12 -Maximum Distance (cm) 0.3 -Classification - Thickness Partial Thickness -Exudate Amt Medium Small -Exudate Type Serosanguineous Serosanguineous -Wound Margin Thickened & Distinct, Rolled Under Outline Attached -Granulation Amt Medium (34-66%) Small (1-33%) -Granulation Quality Pale,[place] -Necrosis Amt Medium (34-66%) Small (1-33%) -Necrotic Tissue Type Adherent Slough Adherent Slough -Texture (Alyce-wound Skin Appearance) Assessed Assessed,Callus -Moisture (Alyce-wound Skin Appearance) Assessed Assessed, Maceration -Color (Alyce-wound Skin Appearance) Assessed Assessed -Temperature (Alyce-wound Skin No Abnormality No Abnormality Appearance) (Pt Warm) (Pt Warm) -Tenderness on Palpation (Alyce-wound No No Skin Appearance) -Ulcer Cleansing Soap and Water Rinsed/ Irrigated with Saline -Foul Odor after Cleansing No No -Anesthetic Used 5% Lidocaine 5% Lidocaine Gel Gel -Wound Comment(s) not measured in nurse 1 Left Calf (cm) 25 Left Ankle (cm) 37.5 WC - Nurse 2 - General Ulcer CM Notes Start: 10/08/24 11:57 Freq: Status: Active Protocol: Activity Type Activity Date Activity User E-sign Co-sign Detail Recorded Client Recorded Date Recorded By Document 10/08/24 12:21 [id number] 10/08/24 12:25 Document 10/15/24 12:53 [id number] 10/15/24 12:55 10/08/24 10/15/24 12:21 12:53 Wound Center Nurse 2 Left Lateral Foot -Time 12:22 12:53 -Correct Patient Yes Yes -Correct Side, Site, Position Yes Yes -Correct Procedure Yes Yes -Procedure Performed Yes Yes -Type of Procedure Debridement Debridement -Clinical Debridement Subcutaneous Subcutaneous -Tissue Removed Subcutaneous Subcutaneous -Post Debridement (cm) - Length 1.0 0.8 -Post Debridement (cm) - Width 0.7 0.3 -Post Debridement (cm) - Depth 0.2 0.1 -Total Square (Post) (cm) 0.70 0.24 -Area of Debridement (cm) - Length 1.0 0.8 -Area of Debridement (cm) - Width 0.7 0.3 -Total Square (Area) (cm) 0.70 0.24 -Tunneling No No -Undermining/Tunneling No No -Circular Undermining No No -Wound/Ulcer Outcome Not Healed Not Healed -Ulcer Cleansing Rinsed/ Rinsed/ Irrigated with Irrigated with Saline Saline -Foul Odor after Cleansing No No -Bioengineered Tissue No No -Bleeding Controlled with Pressure Pressure -Treatment Response Procedure Procedure Tolerated Well Tolerated Well -Offloading No No -Debridement - Subq, 1st 20sq cm Yes Yes Pain Scale: 0-10 Numeric Is Patient Pain Free? Yes Yes - Nurse 3 - General Ulcer D/C NN Start: 10/08/24 11:57 Freq: Status: Active Protocol: Activity Type Activity Date Activity User E-sign Co-sign Detail Recorded Client Recorded Date Recorded By Document 10/08/24 15:07 JF 0000 10/08/24 15:07 Document 10/15/24 13:07 KW [id number] 10/15/24 13:07 KW 10/08/24 10/15/24 15:07 13:07 Wound Care Center Nurse 3 Left Lateral Foot -Ulcer Cleansing Rinsed/ Irrigated with Saline -Foul Odor after Cleansing No -Other Dressing betadine betadine gauze -Primary Dressing Covered/Secured with Dry Gauze, Dry Gauze & Secured with Roll Gauze, Tape Secured with Tape LLE -Tubular Bandage Single Layer -Size of Tubigrip Used Size E -Size E ($) 1 Pain Scale: 0-10 Numeric Is Patient Pain Free? Yes Yes WC - Visit Discharge Discharge Condition Stable Stable Ambulatory Status Ambulatory Ambulatory, Walker Transportation Private Auto Medication Reconcilliation completed & Yes No provided to patient/care provider Clinical Summary of Care Provided Yes Yes Assessment/Plan Assessment/Plan (1) Non-pressure chronic ulcer of other part of left foot with fat layer exposed: CODE(S): L97.522 - Non-pressure chronic ulcer of other part of left foot with fat layer exposed PLAN: Patient was examined and evaluated. All findings were discussed with the patient. All questions were answered to the patient satisfaction. Excisional debridement down to and including subcutaneous tissue with a number 5mm dermal curette to the subfifth metatarsal full-thickness wound to the left foot without incident. Predebridement measurement was 0.7 x 0.2 x 0.1 cm. Postdebridement measurement is 0.8 x 0.3 x 0.1 cm. The left foot was clean and patted dry. Betadine paint was applied to the full-thickness wound followed by dry sterile dressing. Patient will be placed in a Tubigrip. He will continue to ambulate as tolerated with a walker. Patient will follow-up in 1 week 10/18/242026 Cosigner Signature (if applicable): CC: ~ Signed [facility]03-20-2025 History and physical note Author Jaden Forman [facility] Note Date/Time October 09, 2024 3:0 9pm [facility] [address] [place] [address] H&P Exam - Wound Care 10/09/24 1419 MR#: [id number] Acct: [id number] Name: GANESH FLORES Rep #:[id number] : 1935 88 From: Jaden Forman D PM PCP: Dr. Alberto Mustafa MD Status:RE G RCR Location: History of Present Illness Date of Service: 10/09/24 Chief Complaint: Full-thickness wound left foot History of Wound: Full-thickness wound left foot Progress of Wound: Mr Flores is a 88-year-old male presenting to the wound care center today for evaluation of full-thickness wound to the plantar aspect left foot. Patient currently resides at a a facility where he is treated by medical staff. When asked about the full-thickness wound the patient was unsure how it got there. Patient also relates to bumping his head in the shower after falling. He was seen by emergency room department at [facility] and evaluated and discharged. He states the wound has been present but does not know how long. He denies any trauma to the area. Denies constitutional symptoms. No other pedal complaints at this time. [facility] Medical History Agitation due to dementia Closed head injury Fall Dementia Hypothyroidism Home Medications ?Medication ?Instructions ?Recorded ?Last Taken ?Type levothyroxine 137 mcg tablet 137 mcg PO DAILY 09/16/24 Unknown History acetaminophen 325 mg tablet 650 mg (2 x 325 mg) PO Q6H PRN PRN 09/19/24 Unknown Rx Pain 1-10 Or Fever>100.7 #0 tabs Allergy/AdvReac Type Severity Reaction Status Date / Time shellfish derived Allergy unknown Verified 09/16/24 12:27 Social History Smoking Status: Never smoker Physical Exam Narrative Vascular: DP and PT pulses are faintly palpable to left lower extremity. CFT isbrisk. Skin temperature gradient is warm to warm from proximal ankle to distal digit. No erythema. Neurologic: Light touch intact. Epicritic sensation is intact. Patient does respond to painful stimuli. Dermatological: Full-thickness wound to the subfifth metatarsal head of the leftfoot measuring 1.0 x 0.7 x 0.2 cm. Wound base is granular. No drainage or signof infection. Evidence of hyperkeratotic periwound. Excisional debridement down to and including subcutaneous tissue with a number 5mm dermal curette to the subfifth metatarsal full-thickness wound to the left foot without incident. Predebridement measurement was 0.7 x 0.5 x 0.1 cm. Postdebridement measurement is 1.0 x 0.7 x 0.2 cm. Musculoskeletal: Muscle strength is 5 out of 5 to left lower extremity. No painon palpation to full-thickness wound. No pain with calf compression. Debridement Note Debridement Note Debridement Free Text: Excisional debridement down to and including subcutaneoustissue with a number 5 mm dermal curette to the subfifth metatarsal full-thickness wound to the left foot without incident. Predebridement measurement was 0.7 x 0.5 x 0.1 cm. Postdebridement measurement is 1.0 x 0.7 x 0.2 cm. Post-Debridement Measurements and Additional Note: Post-Debridement Measurements/Treatment - Nurse 1 - General Ulcer Assessment Start: 10/08/24 11:57 Freq: Status: Active Protocol: .LOWEXNura Activity Type Activity Date Activity User E-sign Co-sign Detail Recorded Client Recorded Date Recorded By Document 10/08/24 11:57 MD [id number] 10/08/24 12:07 MD 10/08/24 11:57 - Today's Visit Information Type of service Initial Visit Arrival Mode Ambulatory, Walker Accompanied by self Patient Identification Verified (Name & Yes ) Safety Precautions Fall Prevention Vital Signs Temperature (97.8 F-99.1 F) 97 F L Temperature Source Temporal Pulse Rate (60-100) 67 Pulse Location Monitor Respiratory Rate (12-18) 18 Respiratory rate source Observation Oxygen Delivery Method Room Air Blood Pressure (90/60-120/80) 149/68 H Blood Pressure Mean 95 Source Monitor Position Sitting Blood Pressure Location Left Arm History Since Last Visit- (Skip if this is Patient's initial visit) Left Footwear Regular Shoe Right Footwear Regular Shoe Pain Scale: 0-10 Numeric Is Patient Pain Free? Yes - Nurse 1 - General Ulcer Measurement Start: 10/08/24 11:57 Freq: Status: Active Protocol: Activity Type Activity Date Activity User E-sign Co-sign Detail Recorded Client Recorded Date Recorded By Document 10/08/24 11:57 MD [id number] 10/08/24 12:07 MD 10/08/24 11:57 Wound Center Nurse 1 Left Lateral Foot -Current Size (cm) - Length 1.4 -Current Size (cm) - Width 1.0 -Current Size (cm) - Depth 0.3 -Total Square Cm 1.40 -Date of Last Picture (Recall this 10/08/24 field) -Photo Taken Yes -Tunneling No -Undermining/Tunneling Yes -Undermining/Tunneling Starts (O'clock 9 ) -Undermining/Tunneling Ends (O'clock) 12 -Maximum Distance (cm) 0.3 -Classification - Thickness Partial Thickness -Exudate Amt Medium -Exudate Type Serosanguineous -Wound Margin Thickened & Rolled Under -Granulation Amt Medium (34-66%) -Granulation Quality Pale,[place] -Necrosis Amt Medium (34-66%) -Necrotic Tissue Type Adherent Slough -Texture (Alyce-wound Skin Appearance) Assessed -Moisture (Alyce-wound Skin Appearance) Assessed -Color (Alyce-wound Skin Appearance) Assessed -Temperature (Alyce-wound Skin No Abnormality Appearance) (Pt Warm) -Tenderness on Palpation (Alyce-wound No Skin Appearance) -Ulcer Cleansing Soap and Water -Foul Odor after Cleansing No -Anesthetic Used 5% Lidocaine Gel Left Calf (cm) 25 Left Ankle (cm) 37.5 - Nurse 2 - General Ulcer CM Notes Start: 10/08/24 11:57 Freq: Status: Active Protocol: Activity Type Activity Date Activity User E-sign Co-sign Detail Recorded Client Recorded Date Recorded By Document 10/08/24 12:21 [id number] 10/08/24 12:25 10/08/24 12:21 Wound Center Nurse 2 Left Lateral Foot -Time 12:22 -Correct Patient Yes -Correct Side, Site, Position Yes -Correct Procedure Yes -Procedure Performed Yes -Type of Procedure Debridement -Clinical Debridement Subcutaneous -Tissue Removed Subcutaneous -Post Debridement (cm) - Length 1.0 -Post Debridement (cm) - Width 0.7 -Post Debridement (cm) - Depth 0.2 -Total Square (Post) (cm) 0.70 -Area of Debridement (cm) - Length 1.0 -Area of Debridement (cm) - Width 0.7 -Total Square (Area) (cm) 0.70 -Tunneling No -Undermining/Tunneling No -Circular Undermining No -Wound/Ulcer Outcome Not Healed -Ulcer Cleansing Rinsed/ Irrigated with Saline -Foul Odor after Cleansing No -Bioengineered Tissue No -Bleeding Controlled with Pressure -Treatment Response Procedure Tolerated Well -Offloading No -Debridement - Subq, 1st 20sq cm Yes Pain Scale: 0-10 Numeric Is Patient Pain Free? Yes - Nurse 3 - General Ulcer D/C NN Start: 10/08/24 11:57 Freq: Status: Active Protocol: Activity Type Activity Date Activity User E-sign Co-sign Detail Recorded Client Recorded Date Recorded By Document 10/08/24 15:07 0000 10/08/24 15:07 10/08/24 15:07 Wound Care Center Nurse 3 Left Lateral Foot -Ulcer Cleansing Rinsed/ Irrigated with Saline -Foul Odor after Cleansing No -Other Dressing betadine -Primary Dressing Covered/Secured with Dry Gauze, Secured with Tape Pain Scale: 0-10 Numeric Is Patient Pain Free? Yes - Visit Discharge Discharge Condition Stable Ambulatory Status Ambulatory Transportation Private Auto Medication Reconcilliation completed & Yes provided to patient/care provider Clinical Summary of Care Provided Yes Assessment/Plan Assessment/Plan (1) Non-pressure chronic ulcer of other part of left foot with fat layer exposed: CODE(S): L97.522 - Non-pressure chronic ulcer of other part of left foot with fat layer exposed PLAN: Patient was examined and evaluated. All findings were discussed with the patient. All questions were answered to the patient satisfaction. Excisional debridement down to and including subcutaneous tissue with a number 5mm dermal curette to the subfifth metatarsal full-thickness wound to the left foot without incident. Predebridement measurement was 0.7 x 0.5 x 0.1 cm. Postdebridement measurement is 1.0 x 0.7 x 0.2 cm. The left foot was clean and patted dry. Betadine paint was applied to the full-thickness wound followed by dry sterile dressing. Patient will be placed in a Tubigrip. We will begin ordering through the patient's insurance wound care supplies to be done twice daily until follow-up. We did discuss surgical intervention with the patient however the patient declined at this time and will continue weekly wound care here at [facility]. Patient was grateful for his care. He will continue to ambulate as tolerated with a walker. Patient will follow-up in 1 week 10/09/24 [id number] <Electronically signed by Jaden Forman DPM> Cosigner Signature (if applicable): CC: ~ Signed [facility] Work Phone: 1(451) 848-453603-20-2025 History and physical note [facility] [address] [place] [address] H&P Exam - Wound Care 10/09/24 1419 MR#: [id number] Acct: [id number] Name: GANESH FLORES Rep #:[id number] : 1935 88 From: Jaden MONAHAN PCP: Dr. Alberto Mustafa MD Status:RE G RCR Location: History of Present Illness Date of Service: 10/09/24 Chief Complaint: Full-thickness wound left foot History of Wound: Full-thickness wound left foot Progress of Wound: Mr Flores is a 88-year-old male presenting to the wound care center today for evaluation of full-thickness wound to the plantar aspect left foot. Patient currently resides at a a facility where he is treated by medical staff. When asked about the full-thickness wound the patient was unsure how it gotthere. Patient also relates to bumping his head in the shower after falling. He was seen by emergency room department at [facility] and evaluated and discharged. He states the wound has been present but does not know how long. He denies any trauma to the area. Denies constitutional symptoms. No other pedal complaints at this time. [facility] Medical History Agitation due to dementia Closed head injury Fall Dementia Hypothyroidism Home Medications ?Medication ?Instructions ?Recorded ?Last Taken ?Type levothyroxine 137 mcg tablet 137 mcg PO DAILY 09/16/24 Unknown History acetaminophen 325 mg tablet 650 mg (2 x 325 mg) PO Q6H PRN PRN 09/19/24 Unknown Rx Pain 1-10 Or Fever>100.7 #0 tabs Allergy/AdvReac Type Severity Reaction Status Date / Time shellfish derived Allergy unknown Verified 09/16/24 12:27 Social History Smoking Status: Never smoker Physical Exam Narrative Vascular: DP and PT pulses are faintly palpable to left lower extremity. CFT isbrisk. Skin temperature gradient is warm to warm from proximal ankle to distal digit. No erythema. Neurologic: Light touch intact. Epicritic sensation is intact. Patient does respond to painful stimuli. Dermatological: Full-thickness wound to the subfifth metatarsal head of the leftfoot measuring 1.0 x 0.7 x 0.2 cm. Wound base is granular. No drainage or signof infection. Evidence of hyperkeratotic periwound. Excisional debridement down to and including subcutaneous tissue with a number 5mm dermal curette to the subfifth metatarsal full-thickness wound to the left foot without incident. Predebridement measurement was 0.7 x 0.5 x 0.1 cm. Postdebridement measurement is 1.0 x 0.7 x 0.2 cm. Musculoskeletal: Muscle strength is 5 out of 5 to left lower extremity. No painon palpation to full-thickness wound. No pain with calf compression. Debridement Note Debridement Note Debridement Free Text: Excisional debridement down to and including subcutaneoustissue with a number 5 mm dermal curette to the subfifth metatarsal full-thickness wound to the left foot without incident. Predebridement measurement was 0.7 x 0.5 x 0.1 cm. Postdebridement measurement is 1.0 x 0.7 x 0.2 cm. Post-Debridement Measurements and Additional Note: Post-Debridement Measurements/Treatment - Nurse 1 - General Ulcer Assessment Start: 10/08/24 11:57 Freq: Status: Active Protocol: DANITA Activity Type Activity Date Activity User E-sign Co-sign Detail Recorded Client Recorded Date Recorded By Document 10/08/24 11:57 MD [id number] 10/08/24 12:07 MD 10/08/24 11:57 - Today's Visit Information Type of service Initial Visit Arrival Mode Ambulatory, Walker Accompanied by self Patient Identification Verified (Name & Yes ) Safety Precautions Fall Prevention Vital Signs Temperature (97.8 F-99.1 F) 97 F L Temperature Source Temporal Pulse Rate (60-100) 67 Pulse Location Monitor Respiratory Rate (12-18) 18 Respiratory rate source Observation Oxygen Delivery Method Room Air Blood Pressure (90/60-120/80) 149/68 H Blood Pressure Mean 95 Source Monitor Position Sitting Blood Pressure Location Left Arm History Since Last Visit- (Skip if this is Patient's initial visit) Left Footwear Regular Shoe Right Footwear Regular Shoe Pain Scale: 0-10 Numeric Is Patient Pain Free? Yes WC - Nurse 1 - General Ulcer Measurement Start: 10/08/24 11:57 Freq: Status: Active Protocol: Activity Type Activity Date Activity User E-sign Co-sign Detail Recorded Client Recorded Date Recorded By Document 10/08/24 11:57 MD [id number] 10/08/24 12:07 MD 10/08/24 11:57 Wound Center Nurse 1 Left Lateral Foot -Current Size (cm) - Length 1.4 -Current Size (cm) - Width 1.0 -Current Size (cm) - Depth 0.3 -Total Square Cm 1.40 -Date of Last Picture (Recall this 10/08/24 field) -Photo Taken Yes -Tunneling No -Undermining/Tunneling Yes -Undermining/Tunneling Starts (O'clock 9 ) -Undermining/Tunneling Ends (O'clock) 12 -Maximum Distance (cm) 0.3 -Classification - Thickness Partial Thickness -Exudate Amt Medium -Exudate Type Serosanguineous -Wound Margin Thickened & Rolled Under -Granulation Amt Medium (34-66%) -Granulation Quality Pale,[place] -Necrosis Amt Medium (34-66%) -Necrotic Tissue Type Adherent Slough -Texture (Alyce-wound Skin Appearance) Assessed -Moisture (Alyce-wound Skin Appearance) Assessed -Color (Alyce-wound Skin Appearance) Assessed -Temperature (Alyce-wound Skin No Abnormality Appearance) (Pt Warm) -Tenderness on Palpation (Alyce-wound No Skin Appearance) -Ulcer Cleansing Soap and Water -Foul Odor after Cleansing No -Anesthetic Used 5% Lidocaine Gel Left Calf (cm) 25 Left Ankle (cm) 37.5 WC - Nurse 2 - General Ulcer CM Notes Start: 10/08/24 11:57 Freq: Status: Active Protocol: Activity Type Activity Date Activity User E-sign Co-sign Detail Recorded Client Recorded Date Recorded By Document 10/08/24 12:21 [id number] 10/08/24 12:25 10/08/24 12:21 Wound Center Nurse 2 Left Lateral Foot -Time 12:22 -Correct Patient Yes -Correct Side, Site, Position Yes -Correct Procedure Yes -Procedure Performed Yes -Type of Procedure Debridement -Clinical Debridement Subcutaneous -Tissue Removed Subcutaneous -Post Debridement (cm) - Length 1.0 -Post Debridement (cm) - Width 0.7 -Post Debridement (cm) - Depth 0.2 -Total Square (Post) (cm) 0.70 -Area of Debridement (cm) - Length 1.0 -Area of Debridement (cm) - Width 0.7 -Total Square (Area) (cm) 0.70 -Tunneling No -Undermining/Tunneling No -Circular Undermining No -Wound/Ulcer Outcome Not Healed -Ulcer Cleansing Rinsed/ Irrigated with Saline -Foul Odor after Cleansing No -Bioengineered Tissue No -Bleeding Controlled with Pressure -Treatment Response Procedure Tolerated Well -Offloading No -Debridement - Subq, 1st 20sq cm Yes Pain Scale: 0-10 Numeric Is Patient Pain Free? Yes - Nurse 3 - General Ulcer D/C NN Start: 10/08/24 11:57 Freq: Status: Active Protocol: Activity Type Activity Date Activity User E-sign Co-sign Detail Recorded Client Recorded Date Recorded By Document 10/08/24 15:07 0000 10/08/24 15:07 10/08/24 15:07 Wound Care Center Nurse 3 Left Lateral Foot -Ulcer Cleansing Rinsed/ Irrigated with Saline -Foul Odor after Cleansing No -Other Dressing betadine -Primary Dressing Covered/Secured with Dry Gauze, Secured with Tape Pain Scale: 0-10 Numeric Is Patient Pain Free? Yes WC - Visit Discharge Discharge Condition Stable Ambulatory Status Ambulatory Transportation Private Auto Medication Reconcilliation completed & Yes provided to patient/care provider Clinical Summary of Care Provided Yes Assessment/Plan Assessment/Plan (1) Non-pressure chronic ulcer of other part of left foot with fat layer exposed: CODE(S): L97.522 - Non-pressure chronic ulcer of other part of left foot with fat layer exposed PLAN: Patient was examined and evaluated. All findings were discussed with the patient. All questions were answered to the patient satisfaction. Excisional debridement down to and including subcutaneous tissue with a number 5mm dermal curette to the subfifth metatarsal full-thickness wound to the left foot without incident. Predebridement measurement was 0.7 x 0.5 x 0.1 cm. Postdebridement measurement is 1.0 x 0.7 x 0.2 cm. The left foot was clean and patted dry. Betadine paint was applied to the full-thickness wound followed by dry sterile dressing. Patient will be placed in a Tubigrip. We will begin ordering through the patient's insurance wound care supplies to be done twice daily until follow-up. We did discuss surgical intervention with the patient however the patient declined at this time andwill continue weekly wound care here at [facility]. Patient was grateful for his care. He will continue to ambulate as tolerated with a walker. Patient will follow-up in 1 week 10/09/24 1500 Cosigner Signature (if applicable): CC: ~ Signed [facility]02-28-2025 [facility] Medical Records Department [address] [place] [address] Discharge Summary 09/19/24 1447 MR#: [id number] Acct: [id number] Name: GANESH FLORES Rep #: [id number] : 1935 88 From: Demetrius Nash DO PCP: Dr. Alberto Mustafa MD Status:DIS BOY Location: [place] [address] Providers Date of Admission: 09/16/24 Date of Discharge: 09/19/24 Primary Care Physician: Dr. 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 Dementia with behavioral disturbances-patient appears to be alert and oriented x 3 today, we are waiting approval for placement in a skilled care facility for the patient. #2 hypothyroidism-patient is on Synthroid #3 generalized debility secondary to dementia and advanced age-again patient's daughter request that the patient go to an extended care facility for skilled services Total clinical time spent by myself addressing the patient's medical issues, reviewing all of his data, and collaborating with patient's care team: 25 minutes Medications at Discharge Home Medications levothyroxine 137 mcg tablet 137 mcg PO DAILY 09/16/24 acetaminophen 325 mg tablet 650 mg (2 x 325 mg) PO Q6H PRN PRN Pain 1-10 Or Fever>100.7 #0 tabs 09/19/24 Hospital Course Operations None Procedures None Summary of Care Provided Minutes Spent on Discharge: 32 Hospital Course: This 88-year-old white male was seen in the emergency room at [facility] after being brought in by his family due to increased confusion and inability to care for the patient due to his dementia. Patient was placed in observation status on [facility] 3, seen by PT and OT, and an assisted living facility was looking for the patient to be transferred to for further care. On 09/19/2024, patient was seen and examined:alert, oriented x3 and no apparent distress Constitutional Narrative: Patient appears a stated age, he exhibits some confusion General Appearance: cooperative, well kempt and well developed Orientation / Consciousness: awake, oriented to person and oriented to place HEENT normocephalic, head/scalp atraumatic and moist oral mucous membranes Eyes PERRL, EOMs intact bilaterally and conjunctivae normal Neck supple, no JVD, thyroid normal and no carotid bruits General: trachea midline Resp normal respiratory effort and clear to auscultation bilaterally Auscultation: Negative for rales, rhonchi or wheezes Cardio regular rate, regular rhythm, no murmurs, no rub and no gallops GI normal to inspection, nondistended, normoactive bowel sounds, soft to palpation, non-tender and non- distended Extremity no clubbing, cyanosis or edema Skin no rashes or lesions noted General Skin Exam: no breakdown Neuro oriented x3, CN's II-XII intact bilaterally, no focal motor deficits and no sensory deficits noted Sensorium / Orientation: awake, alert, oriented to person, oriented to place and oriented to time Speech: speech normal Psych affect normal Patient was transferred to assisted living on 09/19/2024 in stable condition Weight / BMI Weight Weight: 86 kg Body Mass Index (BMI) 23.6 ABG / Lab / Microbiology Data 09/17/24 06:30 09/17/24 06:30 D/C Instructions Discharge Diet: No restrictions Weight Bearing Status: Full weight bearing DC O2, CPAP, BIPAP Needs Home O2 Discharge instructions: No Meaningful Use Info Meaningful Use Meaningful Use Diagnoses (Choose all that apply): None applicable Ischemic Stroke Statin Dosing Therapy Reference: STATIN DOSE THERAPY REFERENCE: * Patients > 75 years receive moderate or high dose statin therapy. * Patients 75 years or YOUNGER should receive HIGH intensity statin dose unless contraindicated. You will be required to document reason for non-treatment if statin daily dose does not meet guidelines. HIGH DOSE STATIN THERAPY DAILY Atorvastatin > than or = to 40 mg Rosuvastatin > than or = to 20 mg Amlodipine + Atorvastatin > than or = to 2.5/40 mg Ezetimibe + Simvastatin 10/80 mg Simvastatin 80mg Discharge Plan Admission Admit Date/Time: 09/16/24 19:21 Primary Reason for Your Visit: Debility, dementia Attending Provider: Demetrius Nash Primary Care Provider: Alberto Mustafa (more content not included)...[facility]02-25-2025 Evaluation note* Diagnosis Onset Date Resolution Status Admit Date Agitation due to dementia inactive September 16, 2024 7:21pm Closed head injury inactive 2024 7:21pm Dementia inactive September 16, 2024 7:21pm Fall inactive September 16, 2024 7:21pm Hypothyroidism inactive August 242024 7:21pm Non-pressure chronic ulcer o f other part of left foot with fat layer exposed chronic October 15 12:15pm [facility] Work Phone: 1(551) 768-919902-25-2025 Evaluation note* Diagnosis Onset Date Resolution Status Admit Date Agitation due to dementia inactive September 16, 2024 7:21pm Closed head injury inactive 2024 7:21pm Dementia inactive September 16, 2024 7:21pm Fall inactive September 16, 2024 7:21pm Hypothyroidism inactive August 242024 7:21pm Non-pressure chronic ulcer o f other part of left foot with fat layer exposed chronic October 15 12:15pm Non-pressure chronic ulcer o f other part of left foot with fat layer exposed chronic December 03, 2024 1:15pm [facility] Work Phone: 1(634) 173-850602-25-2025 Evaluation note* Diagnosis Onset Date Resolution Status Admit Date Agitation due to dementia inactive September 16, 2024 7:21pm Closed head injury inactive 2024 7:21pm Dementia inactive September 16, 2024 7:21pm Fall inactive September 16, 2024 7:21pm Hypothyroidism inactive August 242024 7:21pm Non-pressure chronic ulcer o f other part of left foot with fat layer exposed chronic October 15 12:15pm Non-pressure chronic ulcer o f other part of left foot with fat layer exposed chronic December 03, 2024 1:15pm Non-pressure chronic ulcer o f other part of left foot with fat layer exposed chronic December 31 11:00am 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 December 31, 2024 11:00am [facility] Work Phone: Reason for referral (narrative)No reason for referral information availableWWyandot [facility] Work Phone: Chief Complaint and Reason for Visit Chief Complaint Admit Date WORSENING DEMENTIA AND RECENT FALL Febru song2024 7:21pm WORSENING DEMENTIA AND RECENT FALL Febru song2024 4:02pm WORSENING DEMENTIA AND RECENT FALL Febru 2024 6:37pm WORSENING DEMENTIA AND RECENT FALL Febru song 2024 2:47pm LABWORK September 22, 2024 5:00 am RETIREMENT LAB WORK September 24, 2024 5: 00am WOUND- LEFT FOOT October 15, 2024 12: 15pm Reason for Visit Admit Date Agitation due to dementia September 16, 2024 7:21pm Closed head injury September 16, 2024 7:21pm Dementia September 16, 2024 7:21pm Fall September 16, 2024 7:21pm Hypothyroidism September 16, 2024 7:21pm Non-pressure chronic ulcer o f other part of left foot with fat layer exposed October 15, 2024 12:15pm Chief Complaint Admit Date WORSENING DEMENTIA AND RECENT FALL Febru 2024 7:21pm WORSENING DEMENTIA AND RECENT FALL Febru 2024 4:02pm WORSENING DEMENTIA AND RECENT FALL Febru 2024 6:37pm WORSENING DEMENTIA AND RECENT FALL Febru 2024 2:47pm LABWORK September 22, 2024 5:00 am RETIREMENT LAB WORK September 24, 2024 5: 00am WOUND- LEFT FOOT October 15, 2024 12: 15pm WOUND- LEFT FOOT October 22, 2024 12:4 2pm LABWORK October 27, 2024 5:00 am Chief Complaint Admit Date WORSENING DEMENTIA AND RECENT FALL Febru 2024 7:21pm WORSENING DEMENTIA AND RECENT FALL Febru 2024 4:02pm WORSENING DEMENTIA AND RECENT FALL Febru 2024 6:37pm WORSENING DEMENTIA AND RECENT FALL Febru 2024 2:47pm LABWORK September 22, 2024 5:00 am RETIREMENT LAB WORK September 24, 2024 5: 00am WOUND- LEFT FOOT October 15, 2024 12: 15pm WOUND- LEFT FOOT October 22, 2024 12:4 2pm LABWORK October 27, 2024 5:00 am RETIREMENT LAB WORK November 05, 2024 5 :00am WOUND- LEFT FOOT December 03, 2024 1:15p m Reason for Visit Admit Date Agitation due to dementia September 16, 2024 7:21pm Closed head injury September 16, 2024 7:21pm Dementia September 16, 2024 7:21pm Fall September 16, 2024 7:21pm Hypothyroidism September 16, 2024 7:21pm Non-pressure chronic ulcer o f other part of left foot with fat layer exposed October 15, 2024 12:15pm Non-pressure chronic ulcer o f other part of left foot with fat layer exposed December 03, 2024 1:15pm Chief Complaint Admit Date WORSENING DEMENTIA AND RECENT FALL Febru 2024 7:21pm WORSENING DEMENTIA AND RECENT FALL Febru 2024 4:02pm WORSENING DEMENTIA AND RECENT FALL Febru 2024 6:37pm WORSENING DEMENTIA AND RECENT FALL Febru 2024 2:47pm LABWORK September 22, 2024 5:00 am RETIREMENT LAB WORK September 24, 2024 5: 00am WOUND- LEFT FOOT October 15, 2024 12: 15pm WOUND- LEFT FOOT October 22, 2024 12:4 2pm LABWORK October 27, 2024 5:00 am RETIREMENT LAB WORK November 05, 2024 5 :00am LABWORK November 26, 2024 5:00am WOUND- LEFT FOOT December 03, 2024 1:15p m Chief Complaint Admit Date WORSENING DEMENTIA AND RECENT FALL Febru song2024 7:21pm WORSENING DEMENTIA AND RECENT FALL Febru song 2024 4:02pm WORSENING DEMENTIA AND RECENT FALL Febru song 2024 6:37pm WORSENING DEMENTIA AND RECENT FALL Febru song 2024 2:47pm LABWORK September 22, 2024 5:00 am RETIREMENT LAB WORK September 24, 2024 5: 00am WOUND- LEFT FOOT October 15, 2024 12: 15pm WOUND- LEFT FOOT October 22, 2024 12:4 2pm LABWORK October 27, 2024 5:00 am RETIREMENT LAB WORK November 05, 2024 5 :00am RETIREMENT LAB WORK November 24, 2024 5:00 am LABWORK November 26, 2024 5:00am WOUND- LEFT FOOT December 03, 2024 1:15p m RETIREMENT LAB WORK December 16, 2024 4:0 0am RETIREMENT LAB WORK December 17, 2024 5:0 0am WOUND- LEFT FOOT December 31, 2024 11:0 0am FALL December 31, 2024 3:45 pm Reason for Visit Admit Date Agitation due to dementia September 16, 2024 7:21pm Closed head injury September 16, 2024 7:21pm Dementia September 16, 2024 7:21pm Fall September 16, 2024 7:21pm Hypothyroidism September 16, 2024 7:21pm Non-pressure chronic ulcer o f other part of left foot with fat layer exposed October 15, 2024 12:15pm Non-pressure chronic ulcer o f other part of left foot with fat layer exposed December 03, 2024 1:15pm Non-pressure chronic ulcer o f other part of left foot with fat layer exposed December 31, 2024 11:00am 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 No September 16, 2024 9:52pm Summary Purpose Family History No Family History Records Found Additional Source Comments Care Teams (unrecognized sec tion and content) Team Status: Active Member Role Status Dates Dr. Alberto Mustafa MD Primary Care Provider Active Team Status: Inactive Member Role Status Dates Dr. Alberto Mustafa MD Primary Care Provider Active Start: July 03, 2024 End: July 03, 2024 Dr. Alberto Mustafa MD Attending Provider Active Start: July 03, 2024 End: July 03, 2024 Dr. Alberto Mustafa MD Referring Provider Active Start: July 03, 2024 End: July 03, 2024 Team Status: Inactive Member Role Status Dates Dr. Alberto Mustafa MD Primary Care Provider Active Start: July 22, 2024 End: July 22, 2024 Dr. Alberto Mustafa MD Attending Provider Active Start: July 22, 2024 End: July 22, 2024 Dr. Alberto Mustafa MD Referring Provider Active Start: July 22, 2024 End: July 22, 2024 Team Status: Inactive Member Role Status Dates Dr. Alberto Mustafa MD Primary Care Provider Active Start: September 16, 2024 End: September 16, 2024 Dr. Alberto Mustafa MD Attending Provider Active Start: September 16, 2024 End: September 16, 2024 Dr. Alberto Mustafa MD Referring Provider Active Start: September 16, 2024 End: September 16, 2024 Team Status: Inactive Member Role Status Dates Dr. Alberto Mustafa MD Primary Care Provider Active Start: September 16, 2024 End: September 19, 2024 Dr. Maliha Youngblood , Emergency Provider Active S tart: September 16, 2024 End: September 19, 2024 Dr. Altaf Meeks , Admit Provider Active Start: September 16, 2024 End: September 19, 2024 Dr. Altaf Meeks , Other Provider Active Start: September 16, 2024 End: September 19, 2024 Dr. Demetrius Nash , Attending Provider Active Start: September 16, 2024 End: September 19, 2024 Team Status: Active Member Role Status Dates Dr. Alberto Mustafa MD Primary Care Provider Active Start: September 17, 2024 Dr. Kamari Lockhart MD Attending Provider Activ e Start: September 17, 2024 Team Status: Active Member Role Status Dates Dr. Alberto Mustafa MD Primary Care Provider Active Start: September 17, 2024 Dr. Maliha Youngblood , DO Emergency Provider Active S tart: September 17, 2024 Dr. Altaf Meeks , DO Admit Provider Active Start: September 17, 2024 Dr. Altaf Meeks , DO Other Provider Active Start: September 17, 2024 Dr. Demetrius Nash , DO Attending Provider Active Start: September 17, 2024 Dr. Demetrius Nash , DO Other Provider Active S tart: September 17, 2024 Team Status: Active Member Role Status Dates Dr. Alberto Mustafa MD Primary Care Provider Active Start: September 18, 2024 Dr. Maliha Youngblood , DO Emergency Provider Active S tart: September 18, 2024 Dr. Altaf Meeks , DO Admit Provider Active Start: September 18, 2024 Dr. Altaf Meeks , DO Other Provider Active Start: September 18, 2024 Dr. Demetrius Nash , DO Attending Provider Active Start: September 18, 2024 Dr. Demetrius Nash , DO Other Provider Active S tart: September 18, 2024 Team Status: Active Member Role Status Dates Dr. Alberto Mustafa MD Primary Care Provider Active Start: September 19, 2024 Dr. Maliha Youngblood , DO Emergency Provider Active S tart: September 19, 2024 Dr. Altaf Meeks , DO Admit Provider Active Start: September 19, 2024 Dr. Altaf Meeks , DO Other Provider Active Start: September 19, 2024 Dr. Demetrius Nash , DO Attending Provider Active Start: September 19, 2024 Dr. Demetrius Nash , DO Other Provider Active S tart: September 19, 2024 Team Status: Active Member Role Status Dates Dr. Alberto Mustafa MD Primary Care Provider Active Start: September 22, 2024 Dr. Michael HUNT MD Attending Provider Active Start: September 22, 2024 Team Status: Active Member Role Status Dates Dr. Alberto Mustafa MD Primary Care Provider Active Start: September 24, 2024 Dr. Michael HUNT MD Attending Provider Active Start: September 24, 2024 Team Status: Inactive Member Role Status Dates Dr. Alberto Mustafa MD Primary Care Provider Active Start: October 15, 2024 End: October 20, 2024 Dr. Jaden Forman DPM Attending Provider Active Start: October 15, 2024 End: October 20, 2024 Dr. Michael Meeks DO Referring Provider Active Start: October 15, 2024 End: October 20, 2024 Team Status: Inactive Member Role Status Dates Dr. Alberto Mustafa MD Primary Care Provider Active Start: September 22, 2024 End: September 22, 2024 Dr. Michael HUNT MD Attending Provider Active Start: September 22, 2024 End: September 22, 2024 Team Status: Inactive Member Role Status Dates Dr. Alberto Mustafa MD Primary Care Provider Active Start: September 24, 2024 End: September 24, 2024 Dr. Michael HUNT MD Attending Provider Active Start: September 24, 2024 End: September 24, 2024 Team Status: Active Member Role Status Dates Dr. Alberto Mustafa MD Primary Care Provider Active Start: October 22, 2024 Dr. Jaden Forman DPM Attending Provider Active Start: October 22, 2024 Dr. Michael Meeks DO Referring Provider Active Start: October 22, 2024 Team Status: Inactive Member Role Status Dates Dr. Alberto Mustafa MD Primary Care Provider Active Start: October 27, 2024 End: October 27, 2024 Dr. Michael HUNT MD Attending Provider Active Start: October 27, 2024 End: October 27, 2024 Team Status: Active Member Role Status Dates Dr. Alberto Mustafa MD Primary Care Provider Active Start: November 05, 2024 Dr. Michael HUNT MD Attending Provider Active Start: November 05, 2024 Team Status: Inactive Member Role Status Dates Dr. Alberto Mustafa MD Primary Care Provider Active Start: October 22, 2024 End: November 19, 2024 Dr. Jaden Forman DPM Attending Provider Active Start: October 22, 2024 End: November 19, 2024 Dr. Michael Meeks DO Referring Provider Active Start: October 22, 2024 End: November 19, 2024 Team Status: Inactive Member Role Status Dates Dr. Alberto Mustafa MD Primary Care Provider Active Start: November 05, 2024 End: November 05, 2024 Dr. Michael HUNT MD Attending Provider Active Start: November 05, 2024 End: November 05, 2024 Team Status: Active Member Role Status Dates Dr. Alberto Mustafa MD Primary Care Provider Active Start: November 24, 2024 Dr. Michael HUNT MD Attending Provider Active Start: November 24, 2024 Team Status: Active Member Role Status Dates Dr. Alberto Mustafa MD Primary Care Provider Active Start: November 26, 2024 Dr. Michael HUNT MD Attending Provider Active Start: November 26, 2024 Team Status: Active Member Role Status Dates Dr. Alberto Mustafa MD Primary Care Provider Active Start: December 03, 2024 Dr. Jaden Forman DPM Attending Provider Active Start: December 03, 2024 Dr. Michael Meeks DO Referring Provider Active Start: December 03, 2024 Team Status: Inactive Member Role Status Dates Dr. Alberto Mustafa MD Primary Care Provider Active Start: November 26, 2024 End: November 26, 2024 Dr. Michael HUNT MD Attending Provider Active Start: November 26, 2024 End: November 26, 2024 Team Status: Inactive Member Role Status Dates Dr. Alberto Mustafa MD Primary Care Provider Active Start: December 03, 2024 End: December 20, 2024 Dr. Jaden Forman DPM Attending Provider Active Start: December 03, 2024 End: December 20, 2024 Dr. Michael Meeks DO Referring Provider Active Start: December 03, 2024 End: December 20, 2024 Team Status: Active Member Role Status Dates Dr. Alberto Mustfaa MD Primary Care Provider Active Start: December 16, 2024 Dr. Michael HUNT MD Attending Provider Active Start: December 16, 2024 Team Status: Active Member Role Status Dates Dr. Alberto Mustafa MD Primary Care Provider Active Start: December 17, 2024 Dr. Michael HUNT MD Attending Provider Active Start: December 17, 2024 Team Status: Active Member Role Status Dates Dr. Michael Meeks DO Primary Care Provider Active Team Status: Inactive Member Role Status Dates Dr. Alberto Mustafa MD Primary Care Provider Active Start: November 24, 2024 End: November 24, 2024 Dr. Michael HUNT MD Attending Provider Active Start: November 24, 2024 End: November 24, 2024 Team Status: Active Member Role Status Dates Dr. Alberto Mustafa MD Primary Care Provider Active Start: December 16, 2024 Dr. Michael HUNT MD Attending Provider Active Start: December 16, 2024 Dr. Michael HUNT MD Referring Provider Active Start: December 16, 2024 Team Status: Active Member Role Status Dates Dr. Alberto Mustafa MD Primary Care Provider Active Start: December 31, 2024 Dr. Jaden Forman DPM Attending Provider Active Start: December 31, 2024 Dr. Michael Meeks DO Referring Provider Active Start: December 31, 2024 Team Status: Inactive Member Role Status Dates Dr. Booker Rodríguez DO Emergency Provider Active Start: December 31, 2024 End: December 31, 2024 Dr. Michael Meeks DO Primary Care Provider Active Start: December 31, 2024 End: December 31, 2024 (unrecognized sect ion and content) No Status Records Found INFORMATION SOURCE (unrecogn ized section and content) DATE CREATED AUTHOR 12/31/2024 [facility] FOR RECORDS PERTAINING TO PATIENTS WHO ARE OR HAVE BEEN ENROLLED IN A CHEMICAL DEPENDENCY/SUBSTANCEABUSE PROGRAM, SOME INFORMATION MAY BE OMITTED. This clinical summary was aggregated from multiple sources. Caution should be exercised in using it in the provision of clinical care. This summary normalizes information from multiple sources, and as a consequence, information in this document may materially change the coding, format and clinical context of patient data. In addition, data may be omitted in some cases. CLINICAL DECISIONS SHOULD BE BASED ON THE PRIMARY CLINICAL RECORDS. [employer] provides no warranty or guarantee of the accuracy or completeness of information in this document.
--- OUTSIDE RECORDS SUMMARY | 2025-01-02 01:51 | XMS RPT_ITS | CCD ---
Author Organization [facility] Care Team Providers Care Dressing Room Porter Name Role Phone Moon RIVERO, Dr. Alberto Marrufo Primary Care Provider [phone] Moon RIVERO, Dr. Alberto Marrufo Attending Provider Moon RIVERO, Dr. Alberto Marrufo Referring Provider Dr. Maliha Youngblood DO Emergency Provider Meeks DO, Dr. Solitario Admit Provider Unavail able Meeks DO, Dr. Solitario Other Provider Unavail able Dr. Demetrius Nash DO Attending Provider [phone] Dr. Kamari Lockhart MD Attending Provider Dr. [...] Unavailable Schinner, Alberto E Attending Unavailable Schinner, Alebrto E Primary Care Unavailable Schinner, Alberto E [...] Provider Dr. Alberto Mustafa MD Attending Provider [phone] Dr. Alberto Mustafa MD Referring Provider [phone] Dr. Michael Meeks MD Referring Provider Unavail able Dr. Booker Rodríguez DO Emergency Provider Dr. Michael Meeks DO Primary Care Provider Allergies Allergy Classification Reported Allergen(s) Allergy Type Date of Onset Reaction(s) Facility (1 source) Shellfish Drug allergy (disorder) 09-16-2024 [facility] Repository Medications Current Medications Medication Drug Class(es) [...] 12-17-2024 Anion gap [Moles/Vol] 9 mmol/L 5-15 [facility] BUN/creatinine ratioOrdered By: Michael Meeks on 12-17-2024 Urea nitrogen/Creatinine [Mass ratio] 25.8 mg/mg High 10-20 [facility] Bilirubin directOrdered By: Michael Meeks on 12-17-2024 Bilirubin.direct [Mass/Vol] 0.17 mg/dL 0.00-0.30 [facility] Bilirubin, totalOrdered By: Michael Meeks on 12-17-2024 Bilirubin [Mass/Vol] 0.47 mg/dL 0.00-1.30 [facility] Carbon dioxide, total [Moles /volume] in Central venous bloodOrdered By: Michael Meeks on 12-17-2024 CO2 [Moles/Vol] 26.5 mmol/L 21.0-32.0 [facility] Chloride assayOrdered By: Yfn Meeks on 12-17-2024 Chloride [Moles/Vol] 105 mmol/L 98-108 [facility] Glomerular filtration rate ( GFR) estimation/1.73 sq m using serum, plasma, or whole bOrdered By: Michael Meeks on 12-17-2024 GFR/1.73 sq M.predicted among non-blacks MDRD (S/P/Bld) [Vol rate/Area] 53 mL/min/{1.73_m2} Low >60 [facility] Comment on above: mL/min/1.73m2 CKD-EP I Creatinine Equation (2020) Laboratory - Chemistry and C hemistry - challengeOrdered By: Michael Meeks on 12-17-2024 AST [Catalytic activity/Vol] 28 U/L <38 [facility] Potassium measurement (mass/ volume)Ordered By: Michael Meeks on 12-17-2024 Potassium (Unsp spec) [Mass/Vol] 4.5 mmol/L 3.3-5.1 [facility] Serum creatinine measurement (mass/volume)Ordered By: Michael Meeks on 12-17-2024 Creatinine [Mass/Vol] 1.30 mg/dL High 0.70-1.20 [facility] Serum globulin measurementOr dered By: Michael Meeks on 12-17-2024 Globulin (S) [Mass/Vol] 2.7 g/dL 2.2-4.2 [facility] Serum glucose measurement (m ass/volume)Ordered By: Michael Meeks on 12-17-2024 Glucose [Mass/Vol] 98 mg/dL 70-99 [facility] Serum or plasma alanine meraz otransferase (ALT) measurementOrdered By: Michael Meeks on 12-17-2024 ALT [Catalytic activity/Vol] 18 U/L <47 [facility] Serum or plasma albumin ana urement (mass/volume)Ordered By: Michael Meeks on 12-17-2024 Albumin [Mass/Vol] 4.3 g/dL 3.4-4.8 [facility] Serum or plasma albumin/glob ulin mass ratioOrdered By: Michael Meeks on 12-17-2024 Albumin/Globulin [Mass ratio] 1.6 {ratio} 0.9-2.4 [facility] Serum or plasma alkaline keenan sphatase measurementOrdered By: Michael Meeks on 12-17-2024 ALP [Catalytic activity/Vol] 107 U/L 40-129 [facility] Serum or plasma calcium ana urement (mass/volume)Ordered By: Michael Meeks on 12-17-2024 Calcium [Mass/Vol] 9.8 mg/dL 7.6-11.0 [facility] Serum or plasma urea nitroge n measurement (mass/volume)Ordered By: Michael Meeks on 12-17-2024 Urea nitrogen [Mass/Vol] 34 mg/dL High 4-19 [facility] Sodium levelOrdered By: Ruslan Meeks on 12-17-2024 Sodium [Moles/Vol] 141 mmol/L 133-145 [facility] T4 freeOrdered By: Michael sanchez on 12-17-2024 Free T4 [Mass/Vol] 1.30 ng/dL 0.76-1.46 [facility] TSH DL <= 0.005 mIU/L QnOrde red By: Michael Meeks on 12-17-2024 TSH Qn 2.390 uIU/mL 0.300-4.200 [facility] Total proteinOrdered By: Amrik Meeks on 12-17-2024 Protein [Mass/Vol] 7.0 g/dL 5.9-8.4 [facility] Anion gap in Serum or Plasma Ordered By: Michael Meeks on 12-16-2024 Anion gap [Moles/Vol] 12 mmol/L 5-15 [facility] BUN/creatinine ratioOrdered By: Michael Meeks on 12-16-2024 Urea nitrogen/Creatinine [Mass ratio] 23.5 mg/mg High 10-20 [facility] Bilirubin, totalOrdered By: Michael Meeks on 12-16-2024 Bilirubin [Mass/Vol] 0.67 mg/dL 0.00-1.30 [facility] Carbon dioxide, total [Moles /volume] in Central venous bloodOrdered By: Michael Meeks on 12-16-2024 CO2 [Moles/Vol] 21.8 mmol/L 21.0-32.0 [facility] Chloride assayOrdered By: Yfn Meeks on 12-16-2024 Chloride [Moles/Vol] 105 mmol/L 98-108 [facility] Glomerular filtration rate ( GFR) estimation/1.73 sq m using serum, plasma, or whole bOrdered By: Michael Meeks on 12-16-2024 GFR/1.73 sq M.predicted among non-blacks MDRD (S/P/Bld) [Vol rate/Area] 55 mL/min/{1.73_m2} Low >60 [facility] Comment on above: mL/min/1.73m2 CKD-EP I Creatinine Equation (2020) Laboratory - Chemistry and C hemistry - challengeOrdered By: Michael eMeks on 12-16-2024 AST [Catalytic activity/Vol] 23 U/L <38 [facility] Potassium measurement (mass/ volume)Ordered By: Michael Meeks on 12-16-2024 Potassium (Unsp spec) [Mass/Vol] 4.6 mmol/L 3.3-5.1 [facility] Serum creatinine measurement (mass/volume)Ordered By: Michael Meeks on 12-16-2024 Creatinine [Mass/Vol] 1.25 mg/dL High 0.70-1.20 [facility] Serum globulin measurementOr dered By: Michael Meeks on 12-16-2024 Globulin (S) [Mass/Vol] 2.6 g/dL 2.2-4.2 [facility] Serum glucose measurement (m ass/volume)Ordered By: Michael Meeks on 12-16-2024 Glucose [Mass/Vol] 124 mg/dL High 70-99 [facility] Serum or plasma alanine meraz otransferase (ALT) measurementOrdered By: Michael Meeks on 12-16-2024 ALT [Catalytic activity/Vol] 12 U/L <47 [facility] Serum or plasma albumin ana urement (mass/volume)Ordered By: Michael Meeks on 12-16-2024 Albumin [Mass/Vol] 4.3 g/dL 3.4-4.8 [facility] Serum or plasma albumin/glob ulin mass ratioOrdered By: Michael Meeks on 12-16-2024 Albumin/Globulin [Mass ratio] 1.6 {ratio} 0.9-2.4 [facility] Serum or plasma alkaline keenan sphatase measurementOrdered By: Michael Meeks on 12-16-2024 ALP [Catalytic activity/Vol] 99 U/L 40-129 [facility] Serum or plasma calcium ana urement (mass/volume)Ordered By: Michael Meeks on 12-16-2024 Calcium [Mass/Vol] 9.7 mg/dL 7.6-11.0 [facility] Serum or plasma urea nitroge n measurement (mass/volume)Ordered By: Michael Meeks on 12-16-2024 Urea nitrogen [Mass/Vol] 29 mg/dL High 4-19 [facility] Sodium levelOrdered By: Ruslan Meeks on 12-16-2024 Sodium [Moles/Vol] 138 mmol/L 133-145 [facility] TSH DL <= 0.005 mIU/L QnOrde red By: Michael Meeks on 12-16-2024 TSH Qn 2.130 uIU/mL 0.300-4.200 [facility] ThyroxineOrdered By: Michael mccallum on 12-16-2024 T4 [Mass/Vol] 6.8 ug/dL 4.5-12.1 [facility] Total proteinOrdered By: Amrik Meeks on 12-16-2024 Protein [Mass/Vol] 6.9 g/dL 5.9-8.4 [facility] Bilirubin directOrdered By: Michael eMeks on 11-26-2024 Bilirubin.direct [Mass/Vol] 0.24 mg/dL 0.00-0.30 [facility] Bilirubin, totalOrdered By: Michael Meeks on 11-26-2024 Bilirubin [Mass/Vol] 0.67 mg/dL 0.00-1.30 [facility] Laboratory - Chemistry and C hemistry - challengeOrdered By: Michael Meeks on 11-26-2024 AST [Catalytic activity/Vol] 21 U/L <38 [facility] Serum globulin measurementOr dered By: Michael Meeks on 11-26-2024 Globulin (S) [Mass/Vol] 3.0 g/dL 2.2-4.2 [facility] Serum or plasma alanine meraz otransferase (ALT) measurementOrdered By: Michael Meeks on 11-26-2024 ALT [Catalytic activity/Vol] 11 U/L <47 [facility] Serum or plasma albumin ana urement (mass/volume)Ordered By: Michael Meeks on 11-26-2024 Albumin [Mass/Vol] 4.3 g/dL 3.4-4.8 [facility] Serum or plasma alkaline keenan sphatase measurementOrdered By: Michael Meeks on 11-26-2024 ALP [Catalytic activity/Vol] 104 U/L 40-129 [facility] Total proteinOrdered By: Amrik Meeks on 11-26-2024 Protein [Mass/Vol] 7.2 g/dL 5.9-8.4 [facility] Anion gap in Serum or Plasma Ordered By: Michael Meeks on 11-24-2024 Anion gap [Moles/Vol] 10 mmol/L 5-15 [facility] BUN/creatinine ratioOrdered By: Michael Meeks on 11-24-2024 Urea nitrogen/Creatinine [Mass ratio] 20.8 mg/mg High 10-20 [facility] Carbon dioxide, total [Moles /volume] in Central venous bloodOrdered By: Michael Meeks on 11-24-2024 CO2 [Moles/Vol] 23.8 mmol/L 21.0-32.0 [facility] Chloride assayOrdered By: Yfn Meeks on 11-24-2024 Chloride [Moles/Vol] 102 mmol/L 98-108 [facility] Glomerular filtration rate ( GFR) estimation/1.73 sq m using serum, plasma, or whole bOrdered By: Michael Meeks on 11-24-2024 GFR/1.73 sq M.predicted among non-blacks MDRD (S/P/Bld) [Vol rate/Area] 46 mL/min/{1.73_m2} Low >60 [facility] Comment on above: mL/min/1.73m2 CKD-EP I Creatinine Equation (2020) Potassium measurement (mass/ volume)Ordered By: Michael Meeks on 11-24-2024 Potassium (Unsp spec) [Mass/Vol] 4.9 mmol/L 3.3-5.1 [facility] Serum creatinine measurement (mass/volume)Ordered By: Michael Meeks on 11-24-2024 Creatinine [Mass/Vol] 1.47 mg/dL High 0.70-1.20 [facility] Serum glucose measurement (m ass/volume)Ordered By: Michael Meeks on 11-24-2024 Glucose [Mass/Vol] 142 mg/dL High 70-99 [facility] Serum or plasma calcium ana urement (mass/volume)Ordered By: Michael Meeks on 11-24-2024 Calcium [Mass/Vol] 9.8 mg/dL 7.6-11.0 [facility] Serum or plasma urea nitroge n measurement (mass/volume)Ordered By: Michael Meeks on 11-24-2024 Urea nitrogen [Mass/Vol] 31 mg/dL High 4-19 [facility] Sodium levelOrdered By: Ruslan Meeks on 11-24-2024 Sodium [Moles/Vol] 136 mmol/L 133-145 [facility] T4 freeOrdered By: Michael sanchez on 11-05-2024 Free T4 [Mass/Vol] 0.90 ng/dL 0.76-1.46 [facility] TSH DL <= 0.005 mIU/L QnOrde red By: Michael Meeks on 11-05-2024 Thyroid Stimulating Hormone (TSH) 6.920 uIU/mL High 0.300-4.200 [facility] TSH Qn 6.920 uIU/mL High 0.300-4.200 [facility] Anion gap in Serum or Plasma Ordered By: Michael Meeks on 10-27-2024 Anion gap [Moles/Vol] 10 mmol/L 5-15 [facility] BUN/creatinine ratioOrdered By: Michael Meeks on 10-27-2024 Urea nitrogen/Creatinine [Mass ratio] 17.0 mg/mg 10-20 [facility] Carbon dioxide, total [Moles /volume] in Central venous bloodOrdered By: Michael Meeks on 10-27-2024 CO2 [Moles/Vol] 23.9 mmol/L 21.0-32.0 [facility] Chloride assayOrdered By: Yfn Meeks on 10-27-2024 Chloride [Moles/Vol] 106 mmol/L 98-108 [facility] GFR/1.73 sq M.predicted mehran g non-blacks MDRD (S/P/Bld) [Vol rate/Area]Ordered By: Michael Meeks on 10-27-2024 Estimated GFR (MDRD) Non-Af Amer 54 Low >60 [facility] Comment on above: mL/min/1.73m2 CKD-EP I Creatinine Equation (2020) Glomerular filtration rate ( GFR) estimation/1.73 sq m using serum, plasma, or whole bOrdered By: Michael Meeks on 10-27-2024 GFR/1.73 sq M.predicted among non-blacks MDRD (S/P/Bld) [Vol rate/Area] 54 mL/min/{1.73_m2} Low >60 [facility] Comment on above: mL/min/1.73m2 CKD-EP I Creatinine Equation (2020) Potassium (Unsp spec) [Mass/ Vol]Ordered By: Michael Meeks on 10-27-2024 Potassium [Moles/Vol] 4.6 mmol/L 3.3-5.1 [facility] Potassium measurement (mass/ volume)Ordered By: Michael Meeks on 10-27-2024 Potassium (Unsp spec) [Mass/Vol] 4.6 mmol/L 3.3-5.1 [facility] Serum creatinine measurement (mass/volume)Ordered By: Michael Meeks on 10-27-2024 Creatinine [Mass/Vol] 1.28 mg/dL High 0.70-1.20 [facility] Serum glucose measurement (m ass/volume)Ordered By: Michael Meeks on 10-27-2024 Glucose [Mass/Vol] 161 mg/dL High 70-99 [facility] Serum or plasma calcium ana urement (mass/volume)Ordered By: Michael Meeks on 10-27-2024 Calcium [Mass/Vol] 9.3 mg/dL 7.6-11.0 [facility] Serum or plasma urea nitroge n measurement (mass/volume)Ordered By: Michael Meeks on 10-27-2024 Urea nitrogen [Mass/Vol] 22 mg/dL High 4-19 [facility] Sodium levelOrdered By: Ruslan Meeks on 10-27-2024 Sodium [Moles/Vol] 140 mmol/L 133-145 [facility] Wound Ctr History AND Physic joe 10-09-2024 Wound Ctr History & Physical [facility] [address] [place] [address] H P Exam - Wound Care 10/09/24 1419 MR#: [id number] Acct: [id number] Name: GANESH FLORES Rep #: [id number] : 1935 88 From: Jaden Forman DPM [...] was seen by emergency room department at [facility] and evaluated and discharged. He states the wound has been present but does not know how long. He denies any trauma to the area. Denies constitutional symptoms. No other pedal complaints at this time. [facility] Medical History Agitation due to dementia [...] Recorded Date Recorded By Document 10/08/24 11:57 VT [id number] 10/08/24 12:07 VT 10/08/24 11:57 WC - Today's Visit Information [...] Recorded Date Recorded By Document 10/08/24 11:57 VT [id number] 10/08/24 12:07 VT 10/08/24 11:57 Wound Center Nurse 1 Left Lateral Foot -Current Size (cm) - Length 1.4 -Current Size (cm) - Width 1.0 -Current Size (cm) - Depth 0.3 -Total Square Cm 1.40 -Date of Last Picture (Recall this / (more content not included)... Normal [facility] T4 freeOrdered By: Michael sanchez on 09-24-2024 Free T4 [Mass/Vol] 1.30 ng/dL 0.76-1.46 [facility] L499.0042on 09-23-2024 Trop T High Sen 77 ng/L Invalid Interpretation Code <=22 [facility] Comment on above: Result Comment: DIS BOY AMENDED REPORT 09/23/24431 Trop T HS 2HR previously reported as: 77 *H ng/L Performed By: #### L 499.0042 #### [facility] Laboratory [address] [facility], [address] L499.0043on 09-23-2024 Trop T High Sen 69 ng/L Invalid Interpretation Code <=22 [facility] Comment on above: Result Comment: DIS BOY AMENDED REPORT 09/23/24431 Trop T HS 4HR previously reported as: 69 *H ng/L Performed By: #### L 500.4050, L100.0100 #### [facility] [address] [facility], [address] Calculated very low density lipoprotein (VLDL) cholesterol measurementOrdered By: Michael Meeks on 09-22-2024 Calculated very low density lipoprotein (VLDL) cholesterol measurement 26 mg/dL 5-40 [facility] VLDL Cholesterol 26 mg/dL 5-40 [facility] Hemoglobin A1c percentageOrd ered By: Michael Meeks on 09-22-2024 HbA1c (Bld) [Mass fraction] 6.1 % >5.7 [facility] LDL calc ser/plasOrdered By: Michael Meeks on 09-22-2024 Cholesterol in LDL [Mass/Vol] 144 mg/dL [facility] Comment on above: Wfbcbadnie=010-682 m g/dL & Higher Tlqn=860 mg/dL or greater LDL Cholesterol, Calculated 144 mg/dL [facility] Comment on above: Pnjmcqvyra=213-604 m g/dL & Higher Kbqx=727 mg/dL or greater Screening total cholesterol/ high density lipoprotein (HDL) cholesterol ratioOrdered By: Michael Meeks on 09-22-2024 Cholesterol.total/Choles terol in HDL [Mass ratio] 3.38 {ratio} [facility] Serum or plasma cholesterol in HDL measurement (mass/volume)Ordered By: Michael Meeks on 09-22-2024 Cholesterol in HDL [Mass/Vol] 72 mg/dL >40 [facility] Comment on above: National Cholesterol Education Program (NCEP) guidelines:<40 mg/dL: Low HDL-cholesterol (major risk factor for CHD)>= 60 mg/dL: High HDL-cholesterol (negative risk factor for CHD)HDL-cholesterol is affected by a number of factors, e.g. smoking, exercise, hormones, sex and age. Serum or plasma cholesterol measurement (mass/volume)Ordered By: Michael Meeks on 09-22-2024 Cholesterol [Mass/Vol] 242 mg/dL High <201 [facility] Comment on above: Cholesterol level, D esirable <200 mg/dLBorderline high cholesterol 200-239 mg/dLHigh cholesterol >=240 mg/dLRecommendations of the NCEP Adult Treatment Panel for the following risk-cutoff thresholds for the [place] population. TSH DL <= 0.005 mIU/L QnOrde red By: Michael Meeks on 09-22-2024 Thyroid Stimulating Hormone (TSH) 4.900 uIU/mL High 0.300-4.200 [facility] TSH Qn 4.900 uIU/mL High 0.300-4.200 [facility] Triglycerides measurementOrd ered By: Michael Meeks on 09-22-2024 Triglyceride [Mass/Vol] 131 mg/dL <199 [facility] Comment on above: The drugs N-Acetylcy steine and Metamizole may falsely depress this assay. Normal range: <150 mg/dLBorderline High: 150-199 mg/dLHigh: 200-499 mg/dLVery High: >500 mg/dL Discharge Instructionon 08-24 Discharge Instruction [facility] Medical Records Department [address] [place] [address] Instructions for Home/Discharge Instructions 09/19/24 1440 MR#: [id number] Acct: [id number] Name: GANESH FLORES Rep #: [id number] : 1935 88 From: Demetrius Nash DO [...] DO; Dr. Alberto Mustafa MD Signed Normal [facility] Phosphoruson 09-18-2024 Phosphate [Mass/Vol] 2.7 mg/dL Normal 2.7-4.5 [facility] Comment on above: Performed By: #### L 501.2300 #### [facility] [address] [facility], [address] Serum phosphorus measurement Ordered By: Altaf Mayfield on 09-18-2024 Phosphorus Level 2.7 mg/dL 2.7-4.5 [facility] 12 Lead EKGon 09-17-2024 12 Lead EKG [facility] Cardiovascular Services [address] [place] [address] 12 Lead EKG 09/17/24 1120 MR#: [id number] Acct: [id number] Name: GANESH FLORES Rep #: [id number] : 1935 88 From: Roel Art MD [...] by 29 bpm Confirmed by Roel Art ([id number]), editorial cartoonist MILES BROCK ([id number]) on 09/19/2024 5:59:25 AM Referred By: TOMY Confirmed By: Roel Art 09/19/24 0559 Date Roel Art MD CC: Dr. Altaf Meeks DO; Dr. Alberto Mustafa MD; Dr. Demetrius Nash DO Signed Normal [facility] Absolute lymphocyte countOrd ered By: Altaf Mayfield on 09-17-2024 Lymphocytes Auto (Unsp spec) [#/Vol] 0.66 10*3/uL Low 0.83-4.51 [facility] Absolute neutrophil countOrd ered By: Altaf Mayfield on 09-17-2024 Neutrophils (Bld) [#/Vol] 2.3 10*3/uL 2.0-7.7 [facility] Automated lymphocyte count a s percentage of total leukocytesOrdered By: Altaf Mayfield on 09-17-2024 Lymphocytes/100 WBC Auto (Unsp spec) 18.4 % Low 19-41 [facility] BUN/creatinine ratioOrdered By: Altaf Mayfield on 09-17-2024 Urea nitrogen/Creatinine [Mass ratio] 11.6 mg/mg 10-20 [facility] Basophil percentageOrdered B y: Altaf Mayfield on 09-17-2024 Basophils/100 WBC (Bld) 1.4 % High 0-1 [facility] Bilirubin, totalOrdered By: Altaf Mayfield on 09-17-2024 Bilirubin [Mass/Vol] 0.66 mg/dL 0.00-1.30 [facility] CBC W/Diff, Automatedon 02-2 Absolute Lymph 0.66 X10 3/uL Low 0.83-4.51 [facility] Comment on above: Performed By: #### L 501.2300, L100.0100, L500.4050, L500.4100 #### [facility] Laboratory [address] [place], [address] Absolute Neut 2.3 X10 3/uL Normal 2.0-7.7 [facility] Comment on above: Performed By: #### L 501.2300, L100.0100, L500.4050, L500.4100 #### [facility] [address] [place], [address] Basophils/100 WBC (Bld) 1.4 % High 0-1 [facility] Comment on above: Performed By: #### L 501.2300, L100.0100, L500.4050, L500.4100 #### [facility] [address] [place], [address] Eosinophils/100 WBC (Bld) 3.1 % Normal 0-5 [facility] Comment on above: Performed By: #### L 501.2300, L100.0100, L500.4050, L500.4100 #### [facility] [address] [place], [address] Erythrocyte distribution width (RBC) [Ratio] 13.4 % Normal 11.6-14.6 [facility] Comment on above: Performed By: #### L 501.2300, L100.0100, L500.4050, L500.4100 #### [facility] [address] [place], [address] Hematocrit (Bld) [Volume fraction] 43.4 % Normal 40-54 [facility] Comment on above: Performed By: #### L 501.2300, L100.0100, L500.4050, L500.4100 #### [facility] [address] [place], [address] Hemoglobin (Bld) [Mass/Vol] 14.3 g/dL Normal 13.0-16.5 [facility] Comment on above: Performed By: #### L 501.2300, L100.0100, L500.4050, L500.4100 #### [facility] [address] [place], [address] IG% 0.800 Normal 0.0-0.9 [facility] Comment on above: Result Comment: IG% - Immature Granulocytes (promyelocytes, myelocytes and metamyelocytes) > 1% indicates that a LEFT SHIFT is Present. Performed By: #### L 501.2300, L100.0100, L500.4050, L500.4100 #### [facility] [address] [place], [address] Lymphocytes/100 WBC (Bld) 18.4 % Low 19-41 [facility] Comment on above: Performed By: #### L 501.2300, L100.0100, L500.4050, L500.4100 #### [facility] [address] [place], [address] MCH (RBC) [Entitic mass] 30.9 pg Normal 27.0-32.0 [facility] Comment on above: Performed By: #### L 501.2300, L100.0100, L500.4050, L500.4100 #### [facility] [address] [place], [address] MCHC (RBC) [Mass/Vol] 32.9 g/dL Normal 32-36 [facility] Comment on above: Performed By: #### L 501.2300, L100.0100, L500.4050, L500.4100 #### [facility] [facility] [address] [place], [address] MCV (RBC) [Entitic vol] 93.7 fL Normal 80-94 [facility] Comment on above: Performed By: #### L 501.2300, L100.0100, L500.4050, L500.4100 #### [facility] [address] [place], [address] Monocytes/100 WBC (Bld) 12.3 % High 0-10 [facility] Comment on above: Performed By: #### L 501.2300, L100.0100, L500.4050, L500.4100 #### [facility] [address] [place], [address] Neutrophils/100 WBC (Bld) 64.0 % Normal 47-70 [facility] Comment on above: Performed By: #### L 501.2300, L100.0100, L500.4050, L500.4100 #### [facility] [address] [place], [address] Nucleated RBC (Bld) [#/Vol] 0 10*3/uL Normal 0-5 [facility] Comment on above: Performed By: #### L 501.2300, L100.0100, L500.4050, L500.4100 #### [facility] [address] [place], [address] Platelet mean volume (Bld) [Entitic vol] 10.3 fL Normal 6.2-12.0 [facility] Comment on above: Performed By: #### L 501.2300, L100.0100, L500.4050, L500.4100 #### [facility] [address] [place], [address] Platelets (Bld) [#/Vol] 140 10*3/uL Low 150-450 [facility] Comment on above: Performed By: #### L 501.2300, L100.0100, L500.4050, L500.4100 #### [facility] [address] [place], [address] RBC (Bld) [#/Vol] 4.63 10*6/uL Normal 4.6-6.2 [facility] Comment on above: Performed By: #### L 501.2300, L100.0100, L500.4050, L500.4100 #### [facility] [address] [place], [address] RDW SD 45.7 fl High 35.1-43.9 [facility] Comment on above: Performed By: #### L 501.2300, L100.0100, L500.4050, L500.4100 #### [facility] [address] [place], [address] WBC (Bld) [#/Vol] 3.6 10*3/uL Low 4.4-11.0 [facility] Comment on above: Performed By: #### L 501.2300, L100.0100, L500.4050, L500.4100 #### [facility] [address] [place], [address] Calculated very low density lipoprotein (VLDL) cholesterol measurementOrdered By: Altaf Mayfield on 09-17-2024 Calculated very low density lipoprotein (VLDL) cholesterol measurement 15 mg/dL 5-40 [facility] VLDL Cholesterol 15 mg/dL -40 [facility] Carbon dioxide measurementOr dered By: Altaf Mayfield on 09-17-2024 CO2 [Moles/Vol] 24.2 mmol/L 22.0-29.0 [facility] Chloride measurementOrdered By: Altaf Mayfield on 09-17-2024 Chloride [Moles/Vol] 102 mmol/L 96-108 [facility] Comprehensive Metabolic Prof ilon 09-17-2024 Albumin [Mass/Vol] 3.7 g/dL Normal 3.4-4.8 [facility] Comment on above: Performed By: #### L 501.2300, L100.0100, L500.4050, L500.4100 #### [facility] [address] [place], [address] Albumin/Globulin [Mass ratio] 1.5 {ratio} Normal 0.9-2.4 [facility] Comment on above: Performed By: #### L 501.2300, L100.0100, L500.4050, L500.4100 #### [facility] [address] [place], [address] ALK PHOS 95 U/L Normal 40-129 [facility] Comment on above: Performed By: #### L 501.2300, L100.0100, L500.4050, L500.4100 #### [facility] [address] [place], [address] ALT [Catalytic activity/Vol] 11 U/L Normal <=46 [facility] Comment on above: Performed By: #### L 501.2300, L100.0100, L500.4050, L500.4100 #### [facility] [address] [place], [address] Anion gap [Moles/Vol] 12 mmol/L Normal 5-15 [facility] Comment on above: Performed By: #### L 501.2300, L100.0100, L500.4050, L500.4100 #### [facility] [address] [place], [address] AST [Catalytic activity/Vol] 25 U/L Normal <=37 [facility] Comment on above: Performed By: #### L 501.2300, L100.0100, L500.4050, L500.4100 #### [facility] [address] [place], [address] Bilirubin [Mass/Vol] 0.66 mg/dL Normal 0.00-1.30 [facility] Comment on above: Performed By: #### L 501.2300, L100.0100, L500.4050, L500.4100 #### [facility] [address] [place], [address] BUN/CRE 11.6 RATIO Normal 10-20 [facility] Comment on above: Performed By: #### L 501.2300, L100.0100, L500.4050, L500.4100 #### [facility] [address] [place], [address] Calcium [Mass/Vol] 9.5 mg/dL Normal 7.6-11.0 [facility] Comment on above: Performed By: #### L 501.2300, L100.0100, L500.4050, L500.4100 #### [facility] [address] [place], [address] Chloride [Moles/Vol] 102 mmol/L Normal 96-108 [facility] Comment on above: Performed By: #### L 501.2300, L100.0100, L500.4050, L500.4100 #### [facility] [address] [place], [address] CO2 [Moles/Vol] 24.2 mmol/L Normal 22.0-29.0 [facility] Comment on above: Performed By: #### L 501.2300, L100.0100, L500.4050, L500.4100 #### [facility] [address] [place], [address] Creatinine [Mass/Vol] 1.3 mg/dL Normal 0.8-1.3 [facility] Comment on above: Performed By: #### L 501.2300, L100.0100, L500.4050, L500.4100 #### [facility] [address] [place], [address] ECRCL 47.85 ml/min Normal [facility] Comment on above: Performed By: #### L 501.2300, L100.0100, L500.4050, L500.4100 #### [facility] [address] [place], [address] GFR/1.73 sq M.predicted among non-blacks MDRD (S/P/Bld) [Vol rate/Area] 54 mL/min/{1.73_m2} Low >60 [facility] Comment on above: Result Comment: mL/m in/1.73m2 CKD-EPI Creatinine Equation (2020) Performed By: #### L 501.2300, L100.0100, L500.4050, L500.4100 #### [facility] [address] [place], [address] Globulin (S) [Mass/Vol] 2.4 g/dL Normal 2.2-4.2 [facility] Comment on above: Performed By: #### L 501.2300, L100.0100, L500.4050, L500.4100 #### [facility] [address] [place], [address] Glucose [Mass/Vol] 93 mg/dL Normal 70-99 [facility] Comment on above: Performed By: #### L 501.2300, L100.0100, L500.4050, L500.4100 #### [facility] [address] [place], [address] Potassium [Moles/Vol] 4.1 mmol/L Normal 3.3-5.1 [facility] Comment on above: Performed By: #### L 501.2300, L100.0100, L500.4050, L500.4100 #### [facility] [address] [place], [address] Sodium [Moles/Vol] 138 mmol/L Normal 133-145 [facility] Comment on above: Performed By: #### L 501.2300, L100.0100, L500.4050, L500.4100 #### [facility] [address] [place], [address] T PROT 6.1 g/dL Normal 5.9-8.4 [facility] Comment on above: Performed By: #### L 501.2300, L100.0100, L500.4050, L500.4100 #### [facility] [address] [place], [address] Urea nitrogen [Mass/Vol] 15 mg/dL Normal 4-19 [facility] Comment on above: Performed By: #### L 501.2300, L100.0100, L500.4050, L500.4100 #### [facility] [address] [place], [address] Albumin [Mass/Vol] 4.3 g/dL Normal 3.4-4.8 [facility] Comment on above: Performed By: #### L 506.0400 #### [facility] [address] [place], [address] Albumin/Globulin [Mass ratio] 1.4 {ratio} Normal 0.9-2.4 [facility] Comment on above: Performed By: #### L 506.0400 #### [facility] [address] [place], [address] ALK PHOS 113 U/L Normal 40-129 [facility] Comment on above: Performed By: #### L 506.0400 #### [facility] [address] [place], [address] ALT [Catalytic activity/Vol] 15 U/L Normal <=46 [facility] Comment on above: Performed By: #### L 506.0400 #### [facility] [address] [place], [address] Anion gap [Moles/Vol] 15 mmol/L Normal 5-15 [facility] Comment on above: Performed By: #### L 506.0400 #### [facility] [address] [place], [address] AST [Catalytic activity/Vol] 31 U/L Normal <=37 [facility] Comment on above: Performed By: #### L 506.0400 #### [facility] [address] [place], [address] Bilirubin [Mass/Vol] 0.79 mg/dL Normal 0.00-1.30 [facility] Comment on above: Performed By: #### L 506.0400 #### [facility] [address] [place], [address] BUN/CRE 10.9 RATIO Normal 10-20 [facility] Comment on above: Performed By: #### L 506.0400 #### [facility] [address] [place], [address] Calcium [Mass/Vol] 10.3 mg/dL Normal 7.6-11.0 [facility] Comment on above: Performed By: #### L 506.0400 #### [facility] [address] [place], [address] Chloride [Moles/Vol] 97 mmol/L Normal 96-108 [facility] Comment on above: Performed By: #### L 506.0400 #### [facility] [address] [place], [address] CO2 [Moles/Vol] 24.0 mmol/L Normal 22.0-29.0 [facility] Comment on above: Performed By: #### L 506.0400 #### [facility] [address] [place], [address] Creatinine [Mass/Vol] 1.4 mg/dL High 0.8-1.3 [facility] Comment on above: Performed By: #### L 506.0400 #### [facility] [address] [place], [address] GFR/1.73 sq M.predicted among non-blacks MDRD (S/P/Bld) [Vol rate/Area] 48 mL/min/{1.73_m2} Low >60 [facility] Comment on above: Result Comment: mL/m in/1.73m2 CKD-EPI Creatinine Equation (2020) Performed By: #### L 506.0400 #### [facility] [address] [place], [address] Globulin (S) [Mass/Vol] 3.2 g/dL Normal 2.2-4.2 [facility] Comment on above: Performed By: #### L 506.0400 #### [facility] [address] [place], [address] Glucose [Mass/Vol] 124 mg/dL High 70-99 [facility] Comment on above: Performed By: #### L 506.0400 #### [facility] [address] [place], [address] Potassium [Moles/Vol] 4.4 mmol/L Normal 3.3-5.1 [facility] Comment on above: Performed By: #### L 506.0400 #### [facility] [address] [place], [address] Sodium [Moles/Vol] 136 mmol/L Normal 133-145 [facility] Comment on above: Performed By: #### L 506.0400 #### [facility] [address] [place], [address] T PROT 7.5 g/dL Normal 5.9-8.4 [facility] Comment on above: Performed By: #### L 506.0400 #### [facility] [address] [place], [address] Urea nitrogen [Mass/Vol] 16 mg/dL Normal 4-19 [facility] Comment on above: Performed By: #### L 506.0400 #### [facility] [address] [place], [address] Echo Completeon 09-17-2024 Echo Complete [facility] [address] [place] [address] Echo Complete 09/17/24 0959 MR#: [id number] Acct: [id number] Name: GANESH FLORES Rep #: [id number] : 1935 88 From: Kamari Lockhart MD [...] Date Dictated: 09/17/2459 Date Transcribed: 09/17/[address] Magistrate: Signed Normal [facility] Eosinophil percentageOrdered By: Altaf Mayfield on 09-17-2024 Eosinophils/100 WBC (Bld) 3.1 % 0-5 [facility] Erythrocyte distribution wid th ratioOrdered By: Altaf Mayfield on 09-17-2024 Erythrocyte distribution width (RBC) [Ratio] 13.4 % 11.6-14.6 [facility] Erythrocyte distribution wid th standard deviationOrdered By: Altaf Mayfield on 09-17-2024 Erythrocyte distribution width (RBC) [Entitic vol] 45.7 fL High 35.1-43.9 [facility] Erythrocyte distribution width (RBC) [Ratio] 45.7 fl High 35.1-43.9 [facility] Estimation of creatinine ijeoma aranceOrdered By: Altaf Mayfield on 09-17-2024 Estimated Creatinine Clearance Calc 47.85 ml/min 50-250 [facility] Folates, (Folic Acid)on 08-24 FOLATES 8.53 ng/mL Normal 4.60-34.80 [facility] Comment on above: Order Comment: Has P atient had X-rays with Contrast this admission? NN Performed By: #### L 500.4050, L100.0100 #### [facility] [address] [place], [address] GFR/1.73 sq M.predicted mehran g non-blacks MDRD (S/P/Bld) [Vol rate/Area]Ordered By: Altaf Mayfield on 09-17-2024 Estimated GFR (MDRD) Non-Af Amer 54 Low >60 [facility] Comment on above: mL/min/1.73m2 CKD-EP I Creatinine Equation (2020) Glomerular filtration rate ( GFR) estimation/1.73 sq m using serum, plasma, or whole bOrdered By: Altaf Mayfield on 09-17-2024 GFR/1.73 sq M.predicted among non-blacks MDRD (S/P/Bld) [Vol rate/Area] 54 mL/min/{1.73_m2} Low >60 [facility] Comment on above: mL/min/1.73m2 CKD-EP I Creatinine Equation (2020) Hematocrit Auto (Bld) [Volum e fraction]Ordered By: Altaf Mayfield on 09-17-2024 Hematocrit (Bld) [Volume fraction] 43.4 % 40-54 [facility] Hemoglobin A1con 09-17-2024 HbA1c (Bld) [Mass fraction] 6.1 % Normal <=5.6 [facility] Comment on above: Performed By: #### L 500.4050, L100.0100 #### [facility] [address] [facility] [place], [place], [id number] Hemoglobin measurementOrdere d By: Altaf Mayfield on 09-17-2024 Hemoglobin (Bld) [Mass/Vol] 14.3 g/dL 13.0-16.5 [facility] Immature granulocytes/100 WB C Auto (Bld)Ordered By: Altaf Mayfield on 09-17-2024 Immature granulocytes/100 WBC (Bld) 0.800 % 0.0-0.9 [facility] Comment on above: IG% - Immature Granu locytes (promyelocytes, myelocytes and metamyelocytes) > 1% indicates that a LEFT SHIFT is Present. L501.4021on 09-17-2024 Trop T High Sen 76 ng/L Invalid Interpretation Code <=22 [facility] Comment on above: Order Comment: Has P atient had X-rays with Contrast this admission? N Result Comment: Crit ical Result(s) Called at: by:??Results read back by same. CALLED TO Ramandeep TOMLIN AT 0055 Performed By: #### L 500.4050, L100.0100 #### [facility] [address] [place], [address] LDL calc ser/plasOrdered By: Altaf Mayfield on 09-17-2024 Cholesterol in LDL [Mass/Vol] 134 mg/dL [facility] Comment on above: Phawqllncb=177-593 m g/dL & Higher Goit=355 mg/dL or greater LDL Cholesterol, Calculated 134 mg/dL [facility] Comment on above: Tswiydrqad=856-529 m g/dL & Higher Shsi=716 mg/dL or greater Laboratory - Chemistry and C hemistry - challengeOrdered By: Altaf Mayfield on 09-17-2024 AST [Catalytic activity/Vol] 25 U/L <38 [facility] Lipid Profileon 09-17-2024 CHOL:HDL 3.24 Normal [facility] Comment on above: Performed By: #### L 501.2300, L100.0100, L500.4050, L500.4100 #### [facility] [address] [place], [address] Cholesterol [Mass/Vol] 215 mg/dL High <=200 [facility] Comment on above: Result Comment: Chol esterol level, Desirable <200 mg/dL Borderline high cholesterol 200-239 mg/dL High cholesterol >=240 mg/dL Recommendations of the NCEP Adult Treatment Panel for the following risk-cutoff thresholds for the [place] population. Performed By: #### L 501.2300, L100.0100, L500.4050, L500.4100 #### [facility] [address] [place], [address] Cholesterol in HDL [Mass/Vol] 66 mg/dL Normal [facility] Comment on above: Result Comment: Liz onal Cholesterol Education Program (NCEP) guidelines: <40 mg/dL: Low HDL-cholesterol (major risk factor for CHD) >= 60 mg/dL: High HDL-cholesterol (negative risk factor for CHD) HDL-cholesterol is affected by a number of factors, e.g. smoking, exercise, hormones, sex and age. Performed By: #### L 501.2300, L100.0100, L500.4050, L500.4100 #### [facility] [address] [place], [address] Cholesterol in LDL [Mass/Vol] 134 mg/dL Normal [facility] Comment on above: Result Comment: Bord zcvfvu=709-949 mg/dL Higher Svhq=419 mg/dL or greater Performed By: #### L 501.2300, L100.0100, L500.4050, L500.4100 #### [facility] [address] [place], [address] Cholesterol in VLDL [Mass/Vol] 15 mg/dL Normal 5-40 [facility] Comment on above: Performed By: #### L 501.2300, L100.0100, L500.4050, L500.4100 #### [facility] [address] [place], [address] Triglyceride [Mass/Vol] 76 mg/dL Normal [facility] Comment on above: Result Comment: The drugs N-Acetylcysteine and Metamizole may falsely depress this assay. Normal range: <150 mg/dL Borderline High: 150-199 mg/dL High: 200-499 mg/dL Very High: >500 mg/dL Performed By: #### L 501.2300, L100.0100, L500.4050, L500.4100 #### [facility] [address] [place], [address] Lymphocytes Auto (Unsp spec) [#/Vol]Ordered By: Altaf Mayfield on 09-17-2024 Lymphocytes (Bld) [#/Vol] 0.66 10*3/uL Low 0.83-4.51 [facility] Lymphocytes/100 WBC Auto (Un sp spec)Ordered By: Altaf Mayfield on 09-17-2024 Lymphocytes/100 WBC (Bld) 18.4 % Low 19-41 [facility] MCV (mean corpuscular volume ) determinationOrdered By: Altaf Mayfield on 09-17-2024 MCV (RBC) [Entitic vol] 93.7 fL 80-94 [facility] Magnesiumon 09-17-2024 Magnesium [Mass/Vol] 2.2 mg/dL Normal 1.5-2.2 [facility] Comment on above: Order Comment: Has P atient had X-rays with Contrast this admission? N Performed By: #### L 500.4050, L100.0100 #### [facility] [address] [place], [place], [address] Mean corpuscular hemoglobin (MCH) determinationOrdered By: Altaf Mayfield on 09-17-2024 MCH (RBC) [Entitic mass] 30.9 pg 27.0-32.0 [facility] Mean corpuscular hemoglobin concentration (MCHC) determinationOrdered By: Altaf Mayfield on 09-17-2024 MCHC (RBC) [Mass/Vol] 32.9 g/dL 32-36 [facility] Mean platelet volume determi nationOrdered By: Altaf Mayfield on 09-17-2024 Platelet mean volume (Bld) [Entitic vol] 10.3 fL 6.2-12.0 [facility] Monocyte percentageOrdered B y: Altaf Mayfield on 09-17-2024 Monocytes/100 WBC (Bld) 12.3 % High 0-10 [facility] Neutrophil percentageOrdered By: Altaf Mayfield on 09-17-2024 Neutrophils/100 WBC (Bld) 64.0 % 47-70 [facility] No Panel InformationOrdered By: Altaf Mayfield on 09-17-2024 Delta Troponin T 1 [facility] Comment on above: Potential recent RI, CKD,LVH* Consider a third Troponin for Suspected ACSIf clinical suspicion for ACS is high, suggest getting a third troponin. Otherwise, stress test or CTCA. Nucleated red blood cell per centageOrdered By: Altaf Mayfield on 09-17-2024 Nucleated RBC/100 WBC (Bld) [Ratio] 0 % 0-5 [facility] Phosphoruson 09-17-2024 Phosphate [Mass/Vol] 2.9 mg/dL Normal 2.7-4.5 [facility] Comment on above: Performed By: #### L 501.2300, L100.0100, L500.4050, L500.4100 #### [facility] [address] [place], [address] Platelet countOrdered By: David Mayfield on 09-17-2024 Platelets (Bld) [#/Vol] 140 10*3/uL Low 150-450 [facility] RBC Auto (Bld) [#/Vol]Ordere d By: Altaf Mayfield on 09-17-2024 RBC (Bld) [#/Vol] 4.63 10*6/uL 4.6-6.2 [facility] Screening total cholesterol/ high density lipoprotein (HDL) cholesterol ratioOrdered By: Altaf Mayfield on 09-17-2024 Cholesterol.total/Choles terol in HDL [Mass ratio] 3.24 {ratio} [facility] Serum creatinine measurement (mass/volume)Ordered By: Altaf Mayfield on 09-17-2024 Creatinine [Mass/Vol] 1.3 mg/dL 0.70-1.20 [facility] Serum globulin measurementOr dered By: Altaf Mayfield on 09-17-2024 Globulin (S) [Mass/Vol] 2.4 g/dL 2.2-4.2 [facility] Serum glucose measurement (m ass/volume)Ordered By: Altaf Mayfield on 09-17-2024 Glucose [Mass/Vol] 93 mg/dL 70-99 [facility] Serum or plasma alanine meraz otransferase (ALT) measurementOrdered By: Altaf Mayfield on 09-17-2024 ALT [Catalytic activity/Vol] 11 U/L <47 [facility] Serum or plasma albumin ana urement (mass/volume)Ordered By: Altaf Mayfield on 09-17-2024 Albumin [Mass/Vol] 3.7 g/dL 3.4-4.8 [facility] Serum or plasma albumin/glob ulin mass ratioOrdered By: Altaf Mayfield on 09-17-2024 Albumin/Globulin [Mass ratio] 1.5 {ratio} 0.9-2.4 [facility] Serum or plasma alkaline keenan sphatase measurementOrdered By: Altaf Mayfield on 09-17-2024 ALP [Catalytic activity/Vol] 95 U/L 40-129 [facility] Serum or plasma anion gap de termination (moles/volume)Ordered By: Altaf Mayfield on 09-17-2024 Anion gap [Moles/Vol] 12 mmol/L 5-15 [facility] Serum or plasma calcium ana urement (mass/volume)Ordered By: Altaf Mayfield on 09-17-2024 Calcium [Mass/Vol] 9.5 mg/dL 7.6-11.0 [facility] Serum or plasma cholesterol in HDL measurement (mass/volume)Ordered By: Altaf Mayfield on 09-17-2024 Cholesterol in HDL [Mass/Vol] 66 mg/dL >40 [facility] Comment on above: National Cholesterol Education Program (NCEP) guidelines:<40 mg/dL: Low HDL-cholesterol (major risk factor for CHD)>= 60 mg/dL: High HDL-cholesterol (negative risk factor for CHD)HDL-cholesterol is affected by a number of factors, e.g. smoking, exercise, hormones, sex and age. Serum or plasma cholesterol measurement (mass/volume)Ordered By: Altaf Mayfield on 09-17-2024 Cholesterol [Mass/Vol] 215 mg/dL High <201 [facility] Comment on above: Cholesterol level, D esirable <200 mg/dLBorderline high cholesterol 200-239 mg/dLHigh cholesterol >=240 mg/dLRecommendations of the NCEP Adult Treatment Panel for the following risk-cutoff thresholds for the [place] population. Serum or plasma potassium me asurementOrdered By: Altaf Mayfield on 09-17-2024 Potassium [Moles/Vol] 4.1 mmol/L 3.3-5.1 [facility] Serum or plasma sodium measu rement (moles/volume)Ordered By: Altaf Mayfield on 09-17-2024 Sodium [Moles/Vol] 138 mmol/L 133-145 [facility] Serum or plasma urea nitroge n measurement (mass/volume)Ordered By: Altaf Mayfield on 09-17-2024 Urea nitrogen [Mass/Vol] 15 mg/dL 4-19 [facility] T4 Free Directon 09-17-2024 T4 FREE DIRECT 1.40 ng/dL Normal 0.76-1.46 [facility] Comment on above: Performed By: #### L 506.0400 #### [facility] Laboratory [facility] [address] [place], [address] Thyroid Stim Hormone (TSH)on 09-17-2024 TSH 2.780 uIU/mL Normal 0.300-4.200 [facility] Comment on above: Performed By: #### L 506.0400 #### [facility] Laboratory [address] [place], [place], [address] TSH 3.100 uIU/mL Normal 0.300-4.200 [facility] Comment on above: Order Comment: Has P atient had X-rays with Contrast this admission? N Performed By: #### L 500.4050, L100.0100 #### [facility] Laboratory [address] [place], [address] Total proteinOrdered By: Rahat Mayfield on 09-17-2024 Protein [Mass/Vol] 6.1 g/dL 5.9-8.4 [facility] Triglycerides measurementOrd ered By: Altaf Mayfield on 09-17-2024 Triglyceride [Mass/Vol] 76 mg/dL <199 [facility] Comment on above: The drugs N-Acetylcy steine and Metamizole may falsely depress this assay. Normal range: <150 mg/dLBorderline High: 150-199 mg/dLHigh: 200-499 mg/dLVery High: >500 mg/dL Troponin T.cardiac High sens itivity method [Mass/Vol]Ordered By: Altaf Mayfield on 09-17-2024 Troponin T High Sensitivity 4 Hour 69 ng/L High <22 [facility] Comment on above: DIS INOPrevious repo rted result: 69 ng/LEdited by: AUTOINS on 09/23/24:0432 AMENDED REPORT 09/23/24 0432 Trop T HS 4HR previously reported as: 69 *H ng/L Troponin T High Sensitivity 2 Hour 77 ng/L High <22 [facility] Comment on above: DIS INOPrevious repo rted result: 77 ng/LEdited by: AUTOINS on 09/23/24:0432 AMENDED REPORT 09/23/24 0432 Trop T HS 2HR previously reported as: 77 *H ng/L Troponin T.cardiac [Mass/vol ume] in Serum or Plasma by High sensitivity methodOrdered By: Altaf Mayfield on 09-17-2024 Troponin T.cardiac High sensitivity method [Mass/Vol] 69 ng/L High <22 [facility] Comment on above: DIS INOPrevious repo rted result: 69 ng/LEdited by: AUTOINS on 09/23/24:0432 AMENDED REPORT 09/23/242 Trop T HS 4HR previously reported as: 69 *H ng/L Troponin T.cardiac High sensitivity method [Mass/Vol] 77 ng/L High <22 [facility] Comment on above: DIS INOPrevious repo rted result: 77 ng/LEdited by: AUTOINS on 09/23/24:0432 AMENDED REPORT 09/23/24431 Trop T HS 2HR previously reported as: 77 *H ng/L White blood cell (WBC) count Ordered By: Altaf Mayfield on 09-17-2024 WBC (Bld) [#/Vol] 3.6 10*3/uL Low 4.4-11.0 [facility] 12 Lead EKGon 09-16-2024 12 Lead EKG [facility] Cardiovascular Services [address] [place] [address] 12 Lead EKG 09/16/24 1300 MR#: [id number] Acct: [id number] Name: GANESH FLORES Rep #: [id number] : 1935 88 From: Roel Art MD Attending Dr: Dr. Demetrius Nash, Status: A DM BOY Ordering Dr: Maliha Youngblood DO Date: 09/16/24 Location: PR3 Sex: M C Admitted: 09/16/24 Test Reason : PALP Blood Pressure : */* mmHG Vent. Rate : 84 BPM Atrial Rate : 84 BPM P-R Int : 166 ms QRS Dur : 78 ms QT Int : 370 ms P-R-T Axes : 70 12 74 degrees QTcB Int : 437 ms Normal sinus rhythm Normal ECG Confirmed by Roel Art ([id number]), editorial cartoonist TARA CARDONA ([id number]) on 09/17/2024 8:23:13 AM Referred By: Confirmed By: Roel Art 09/17/24 0823 Date Roel Art MD CC: Dr. Alberto Mustafa MD; Dr. Demetrius Nash DO; Dr. Maliha Youngblood DO Signed Normal [facility] Absolute lymphocyte countOrd ered By: Alberto Mustafa on 09-16-2024 Lymphocytes Auto (Unsp spec) [#/Vol] 0.72 10*3/uL Low 0.83-4.51 [facility] Absolute neutrophil countOrd ered By: Alberto Mustafa on 09-16-2024 Neutrophils (Bld) [#/Vol] 3.9 10*3/uL 2.0-7.7 [facility] Automated lymphocyte count a s percentage of total leukocytesOrdered By: Alberto Mustafa on 09-16-2024 Lymphocytes/100 WBC Auto (Unsp spec) 13.9 % Low 19-41 [facility] BUN/creatinine ratioOrdered By: Alberto Mustafa on 09-16-2024 Urea nitrogen/Creatinine [Mass ratio] 10.9 mg/mg 10-20 [facility] Basophil percentageOrdered B y: Alberto Mustafa on 09-16-2024 Basophils/100 WBC (Bld) 0.8 % 0-1 [facility] Bilirubin Test strip Ql (U)O rdered By: Maliha Youngblood on 09-16-2024 Bilirubin Ql (U) Negative Negative [facility] Bilirubin, totalOrdered By: Alberto Mustafa on 09-16-2024 Bilirubin [Mass/Vol] 0.79 mg/dL 0.00-1.30 [facility] Brain/Head without Contrasto n 09-16-2024 Brain/Head without Contrast [facility] Imaging Services [address] [place], [place] [id number] Brain/Head without Contrast MR#: [id number] Acct: [id number] Name: GANESH FLORES Rep #: [id number] : 1935 M 88 From: Booker Leblanc MD PCP: Dr. Alberto Mustafa MD Status: [facility] Study: Brain/Head without Contrast Date of Exam: 08/24 12/14 Exam# [id number] Ordering Dr: Fiona Quintero TECHNIQUE: Contiguous axial [...] infarcts. 3. Age-appropriate senescent change. Reading Location: [facility] CC: Dr. Alberto Mustafa MD; CRYSTAL Solorzano [address] Magistrate: Signed Normal [facility] CBC W/Diff, Automatedon 08-24 Absolute Lymph 0.72 X10 3/uL Low 0.83-4.51 [facility] Comment on above: Performed By: #### L 506.0400 #### [facility] Laboratory [address] [place], [address] Absolute Neut 3.9 X10 3/uL Normal 2.0-7.7 [facility] Comment on above: Performed By: #### L 506.0400 #### [facility] Laboratory [address] [place], [address] Basophils/100 WBC (Bld) 0.8 % Normal 0-1 [facility] Comment on above: Performed By: #### L 506.0400 #### [facility] Laboratory [address] [place], [address] Eosinophils/100 WBC (Bld) 1.2 % Normal 0-5 [facility] Comment on above: Performed By: #### L 506.0400 #### [facility] Laboratory [address] [place] [place], [address] Erythrocyte distribution width (RBC) [Ratio] 13.2 % Normal 11.6-14.6 [facility] Comment on above: Performed By: #### L 506.0400 #### [facility] Laboratory [address] [place], [address] Hematocrit (Bld) [Volume fraction] 49.6 % Normal 40-54 [facility] Comment on above: Performed By: #### L 506.0400 #### [facility] Laboratory [address] [place], [address] Hemoglobin (Bld) [Mass/Vol] 15.9 g/dL Normal 13.0-16.5 [facility] Comment on above: Performed By: #### L 506.0400 #### [facility] Laboratory [address] [place], [address] IG% 0.600 Normal 0.0-0.9 [facility] Comment on above: Result Comment: IG% - Immature Granulocytes (promyelocytes, myelocytes and metamyelocytes) > 1% indicates that a LEFT SHIFT is Present. Performed By: #### L 506.0400 #### [facility] Laboratory [address] [place], [address] Lymphocytes/100 WBC (Bld) 13.9 % Low 19-41 [facility] Comment on above: Performed By: #### L 506.0400 #### [facility] Laboratory [address] [place], [address] MCH (RBC) [Entitic mass] 30.0 pg Normal 27.0-32.0 [facility] Comment on above: Performed By: #### L 506.0400 #### [facility] Laboratory [address] [place], [address] MCHC (RBC) [Mass/Vol] 32.1 g/dL Normal 32-36 [facility] Comment on above: Performed By: #### L 506.0400 #### [facility] Laboratory [address] [place], [address] MCV (RBC) [Entitic vol] 93.6 fL Normal 80-94 [facility] Comment on above: Performed By: #### L 506.0400 #### [facility] Laboratory [address] [place], [address] Monocytes/100 WBC (Bld) 8.1 % Normal 0-10 [facility] Comment on above: Performed By: #### L 506.0400 #### [facility] Laboratory [address] [place], [address] Neutrophils/100 WBC (Bld) 75.4 % High 47-70 [facility] Comment on above: Performed By: #### L 506.0400 #### [facility] Laboratory [address] [place], [address] Nucleated RBC (Bld) [#/Vol] 0 10*3/uL Normal 0-5 [facility] Comment on above: Performed By: #### L 506.0400 #### [facility] Laboratory [address] [place], [address] Platelet mean volume (Bld) [Entitic vol] 10.5 fL Normal 6.2-12.0 [facility] Comment on above: Performed By: #### L 506.0400 #### [facility] Laboratory [address] [place], [address] Platelets (Bld) [#/Vol] 169 10*3/uL Normal 150-450 [facility] Comment on above: Performed By: #### L 506.0400 #### [facility] Laboratory [address] [place], [address] RBC (Bld) [#/Vol] 5.30 10*6/uL Normal 4.6-6.2 [facility] Comment on above: Performed By: #### L 506.0400 #### [facility] Laboratory [address] [place], [address] RDW SD 45.5 fl High 35.1-43.9 [facility] Comment on above: Performed By: #### L 506.0400 #### [facility] Laboratory [address] [place], [address] WBC (Bld) [#/Vol] 5.2 10*3/uL Normal 4.4-11.0 [facility] Comment on above: Performed By: #### L 506.0400 #### [facility] Laboratory [address] [place], [address] Absolute Lymph 0.58 X10 3/uL Low 0.83-4.51 [facility] Comment on above: Performed By: #### L 500.4050, L100.0100 #### [facility] Laboratory [address] [place], [address] Absolute Neut 3.8 X10 3/uL Normal 2.0-7.7 [facility] Comment on above: Performed By: #### L 500.4050, L100.0100 #### [facility] Laboratory [address] [place], [address] Basophils/100 WBC (Bld) 0.4 % Normal 0-1 [facility] Comment on above: Performed By: #### L 500.4050, L100.0100 #### [facility] Laboratory [address] [place], [address] Eosinophils/100 WBC (Bld) 1.2 % Normal 0-5 [facility] Comment on above: Performed By: #### L 500.4050, L100.0100 #### [facility] Laboratory [address] [place], [address] Erythrocyte distribution width (RBC) [Ratio] 13.2 % Normal 11.6-14.6 [facility] Comment on above: Performed By: #### L 500.4050, L100.0100 #### [facility] Laboratory [address] [place], [address] Hematocrit (Bld) [Volume fraction] 46.8 % Normal 40-54 [facility] Comment on above: Performed By: #### L 500.4050, L100.0100 #### [facility] Laboratory [address] [place], [address] Hemoglobin (Bld) [Mass/Vol] 15.4 g/dL Normal 13.0-16.5 [facility] Comment on above: Performed By: #### L 500.4050, L100.0100 #### [facility] Laboratory [address] [place], [address] IG% 0.600 Normal 0.0-0.9 [facility] Comment on above: Result Comment: IG% - Immature Granulocytes (promyelocytes, myelocytes and metamyelocytes) > 1% indicates that a LEFT SHIFT is Present. Performed By: #### L 500.4050, L100.0100 #### [facility] Laboratory [address] [place], [address] Lymphocytes/100 WBC (Bld) 12.0 % Low 19-41 [facility] Comment on above: Performed By: #### L 500.4050, L100.0100 #### [facility] Laboratory [address] [place], [address] MCH (RBC) [Entitic mass] 30.4 pg Normal 27.0-32.0 [facility] Comment on above: Performed By: #### L 500.4050, L100.0100 #### [facility] Laboratory [address] [place], [address] MCHC (RBC) [Mass/Vol] 32.9 g/dL Normal 32-36 [facility] Comment on above: Performed By: #### L 500.4050, L100.0100 #### [facility] Laboratory [address] [place], [address] MCV (RBC) [Entitic vol] 92.3 fL Normal 80-94 [facility] Comment on above: Performed By: #### L 500.4050, L100.0100 #### [facility] Laboratory [address] [place], [address] Monocytes/100 WBC (Bld) 8.2 % Normal 0-10 [facility] Comment on above: Performed By: #### L 500.4050, L100.0100 #### [facility] Laboratory [address] [place], [address] Neutrophils/100 WBC (Bld) 77.6 % High 47-70 [facility] Comment on above: Performed By: #### L 500.4050, L100.0100 #### [facility] Laboratory [address] [place], [address] Nucleated RBC (Bld) [#/Vol] 0 10*3/uL Normal 0-5 [facility] Comment on above: Performed By: #### L 500.4050, L100.0100 #### [facility] Laboratory [address] [place], [address] Platelet mean volume (Bld) [Entitic vol] 9.8 fL Normal 6.2-12.0 [facility] Comment on above: Performed By: #### L 500.4050, L100.0100 #### [facility] Laboratory [address] [place], [address] Platelets (Bld) [#/Vol] 155 10*3/uL Normal 150-450 [facility] Comment on above: Performed By: #### L 500.4050, L100.0100 #### [facility] Laboratory [address] [place], [address] RBC (Bld) [#/Vol] 5.07 10*6/uL Normal 4.6-6.2 [facility] Comment on above: Performed By: #### L 500.4050, L100.0100 #### [facility] Laboratory [address] [place], [address] RDW SD 45.1 fl High 35.1-43.9 [facility] Comment on above: Performed By: #### L 500.4050, L100.0100 #### [facility] Laboratory [address] [place], [address] WBC (Bld) [#/Vol] 4.9 10*3/uL Normal 4.4-11.0 [facility] Comment on above: Performed By: #### L 500.4050, L100.0100 #### [facility] Laboratory [address] [place], [address] Carbon dioxide measurementOr dered By: Alberto Mustafa on 09-16-2024 CO2 [Moles/Vol] 24.0 mmol/L 22.0-29.0 [facility] Chest 1 View (Portable)on Chest 1 View (Portable) [facility] Imaging Services [address] [place] [address] Chest 1 View (Portable) MR#: [id number] Acct: [id number] Name: GANESH FLORES Rep #: [id number] : 1935 M 88 From: Booker Leblanc MD PCP: Dr. Alberto Mustafa MD Status: [facility] ER Study: Chest 1 View (Portable) Date of Exam: 09/16/24 Exam# [id number] Ordering Dr: Maliha Youngblood DO PROCEDURE: CHEST [...] IMPRESSION: No active cardiopulmonary disease. Reading Location: [facility] CC: Dr. Alberto Mustafa MD; Dr. Maliha Youngblood DO Circuit Court Magistrate: Signed Normal [facility] Chloride measurementOrdered By: Alberto Mustafa on 09-16-2024 Chloride [Moles/Vol] 97 mmol/L 96-108 [facility] Comprehensive Metabolic Prof ilon 09-16-2024 Albumin [Mass/Vol] 4.1 g/dL Normal 3.4-4.8 [facility] Comment on above: Performed By: #### L 500.4050, L100.0100 #### [facility] Laboratory [address] [place], [address] Albumin/Globulin [Mass ratio] 1.3 {ratio} Normal 0.9-2.4 [facility] Comment on above: Performed By: #### L 500.4050, L100.0100 #### [facility] Laboratory [address] [place], [address] ALK PHOS 115 U/L Normal 40-129 [facility] Comment on above: Performed By: #### L 500.4050, L100.0100 #### [facility] Laboratory [address] [place], [address] ALT [Catalytic activity/Vol] 12 U/L Normal <=46 [facility] Comment on above: Performed By: #### L 500.4050, L100.0100 #### [facility] Laboratory [address] [place], [address] Anion gap [Moles/Vol] 10 mmol/L Normal 5-15 [facility] Comment on above: Performed By: #### L 500.4050, L100.0100 #### [facility] Laboratory [address] [place], [address] AST [Catalytic activity/Vol] 27 U/L Normal <=37 [facility] Comment on above: Performed By: #### L 500.4050, L100.0100 #### [facility] Laboratory [address] [place], [address] Bilirubin [Mass/Vol] 0.79 mg/dL Normal 0.00-1.30 [facility] Comment on above: Performed By: #### L 500.4050, L100.0100 #### [facility] Laboratory [address] [place], [address] BUN/CRE 12.2 RATIO Normal 10-20 [facility] Comment on above: Performed By: #### L 500.4050, L100.0100 #### [facility] Laboratory [address] [place], [address] Calcium [Mass/Vol] 10.2 mg/dL Normal 7.6-11.0 [facility] Comment on above: Performed By: #### L 500.4050, L100.0100 #### [facility] Laboratory [address] [place], [address] Chloride [Moles/Vol] 99 mmol/L Normal 96-108 [facility] Comment on above: Performed By: #### L 500.4050, L100.0100 #### [facility] Laboratory [address] [place], [address] CO2 [Moles/Vol] 27.4 mmol/L Normal 22.0-29.0 [facility] Comment on above: Performed By: #### L 500.4050, L100.0100 #### [facility] Laboratory [address] [place], [address] Creatinine [Mass/Vol] 1.3 mg/dL Normal 0.8-1.3 [facility] Comment on above: Performed By: #### L 500.4050, L100.0100 #### [facility] Laboratory [address] [place], [address] GFR/1.73 sq M.predicted among non-blacks MDRD (S/P/Bld) [Vol rate/Area] 54 mL/min/{1.73_m2} Low >60 [facility] Comment on above: Result Comment: mL/m in/1.73m2 CKD-EPI Creatinine Equation (2020) Performed By: #### L 500.4050, L100.0100 #### [facility] Laboratory [address] [place], [address] Globulin (S) [Mass/Vol] 3.1 g/dL Normal 2.2-4.2 [facility] Comment on above: Performed By: #### L 500.4050, L100.0100 #### [facility] Laboratory [address] [place], [address] Glucose [Mass/Vol] 138 mg/dL High 70-99 [facility] Comment on above: Performed By: #### L 500.4050, L100.0100 #### [facility] Laboratory [address] [place], [address] Potassium [Moles/Vol] 4.4 mmol/L Normal 3.3-5.1 [facility] Comment on above: Performed By: #### L 500.4050, L100.0100 #### [facility] Laboratory [address] [place], [address] Sodium [Moles/Vol] 136 mmol/L Normal 133-145 [facility] Comment on above: Performed By: #### L 500.4050, L100.0100 #### [facility] Laboratory [address] [place], [address] T PROT 7.1 g/dL Normal 5.9-8.4 [facility] Comment on above: Performed By: #### L 500.4050, L100.0100 #### [facility] Laboratory [address] [place], [address] Urea nitrogen [Mass/Vol] 16 mg/dL Normal 4-19 [facility] Comment on above: Performed By: #### L 500.4050, L100.0100 #### [facility] Laboratory [address] [place], [address] Creatinine [Moles/Vol]Ordere d By: Alberto Mustafa on 09-16-2024 Creatinine [Mass/Vol] 1.4 mg/dL High 0.8-1.3 [facility] Emergency Department Summary on 09-16-2024 Emergency Department Summary [facility] Medical Records Department [address] [place] [address] Emergency Department Summary 09/16/24 MR#: [id number] Acct: [id number] Name: GANESH FLORES Rep #: [id number] : 1935 88 From: Fiona ROJAS PCP: [...] the ar (more content not included)... Normal [facility] Eosinophil percentageOrdered By: Alberto Mustafa on 09-16-2024 Eosinophils/100 WBC (Bld) 1.2 % 0-5 [facility] Epithelial cells.squamous LM Ql (Urine sed)Ordered By: Maliha Youngblood on 09-16-2024 Epithelial cells.squamous LM.HPF (Urine sed) [#/Area] 0 /[HPF] 0-5 [facility] Erythrocyte distribution wid th ratioOrdered By: Alberto Mustafa on 09-16-2024 Erythrocyte distribution width (RBC) [Ratio] 13.2 % 11.6-14.6 [facility] Erythrocyte distribution wid th standard deviationOrdered By: Alberto Mustafa on 09-16-2024 Erythrocyte distribution width (RBC) [Entitic vol] 45.5 fL High 35.1-43.9 [facility] Erythrocyte distribution width (RBC) [Ratio] 45.5 fl High 35.1-43.9 [facility] Folate measurementOrdered By : Altaf Mayfield on 09-16-2024 Folate 8.53 ng/mL 4.60-34.80 [facility] GFR/1.73 sq M.predicted mehran g non-blacks MDRD (S/P/Bld) [Vol rate/Area]Ordered By: Alberto Mustafa on 09-16-2024 Estimated GFR (MDRD) Non-Af Amer 48 Low >60 [facility] Comment on above: mL/min/1.73m2 CKD-EP I Creatinine Equation (2020) Glomerular filtration rate ( GFR) estimation/1.73 sq m using serum, plasma, or whole bOrdered By: Alberto Mustafa on 09-16-2024 GFR/1.73 sq M.predicted among non-blacks MDRD (S/P/Bld) [Vol rate/Area] 48 mL/min/{1.73_m2} Low >60 [facility] Comment on above: mL/min/1.73m2 CKD-EP I Creatinine Equation (2020) Glucose Ql (U)Ordered By: Estephanie Youngblood on 09-16-2024 Urine Glucose (UA) Normal mg/dl Normal [facility] H AND P Exam - [facility] 09-16-2024 H&P Exam - Hospitalist [facility] Medical Records Department [address] [place] [address] H P Exam - Hospitalist 09/16/241911 MR#: [id number] Acct: [id number] Name: GANESH FLORES Rep #: [id number] : 1935 88 From: Altaf Meeks DO PCP: Dr. Alberto Mustafa MD Status:ADM BOY [place] [facility] [id number] HPI - General General Date of Admission: 09/16/24 Date of Service: 09/16/24 Chief Complaint: Worsening Confusion, Agitation and Recent Fall. HPI Narrative GANESH FLORES, is a 88 M with a past medical history of chronic dementia, hypothyroidism; on levothyroxine and OA who presents to [facility] ER complaining of fall yesterday in the [...] expected to be less than 2 midnights. [facility] Medical History (Updated 09/17/24 @ 03:50 [...] oral mucous membranes HEENT Narrative: Patient very DIOMEDE. Eyes PERRL, EOMs intact bilaterally and conjunctivae [...] 77.6 H, Lymph % (Auto) 12.0 L, [place] % (Auto) 8.2, Eos % (Auto) 1.2, [...] 4.1, Globuli (more content not included)... Normal [facility] Hematocrit Auto (Bld) [Volum e fraction]Ordered By: Alberto Mustafa on 09-16-2024 Hematocrit (Bld) [Volume fraction] 49.6 % 40-54 [facility] Hemoglobin A1c percentageOrd ered By: Altaf Mayfield on 09-16-2024 HbA1c (Bld) [Mass fraction] 6.1 % >5.7 [facility] Hemoglobin measurementOrdere d By: Alberto Mustafa on 09-16-2024 Hemoglobin (Bld) [Mass/Vol] 15.9 g/dL 13.0-16.5 [facility] Immature granulocytes/100 WB C Auto (Bld)Ordered By: Alberto Mustafa on 09-16-2024 Immature granulocytes/100 WBC (Bld) 0.600 % 0.0-0.9 [facility] Comment on above: IG% - Immature Granu locytes (promyelocytes, myelocytes and metamyelocytes) > 1% indicates that a LEFT SHIFT is Present. Ketones Test strip Ql (U)Ord ered By: Maliha Youngblood on 09-16-2024 Ketones Ql (U) 5 mg/dl High Negative [facility] L501.4021on 09-16-2024 Trop T High Sen 57 ng/L Invalid Interpretation Code <=22 [facility] Comment on above: Order Comment: Comme nts: draw at 15:05 Result Comment: Crit ical Result(s) Called at 09/16/2024-16:35 by Prosper Garces to Rina Meeks??Results read back by same. Performed By: #### L 500.4050, L100.0100 #### [facility] [address] [place], [address] Trop T High Sen 62 ng/L Invalid Interpretation Code <=22 [facility] Comment on above: Result Comment: Crit ical Result(s) Called at 09/16/2024 by Prosper Garces??to Devorah West Results read back by same. Performed By: #### L 506.0400 #### [facility] [address] [place], [address] Laboratory - Chemistry and C hemistry - challengeOrdered By: Alberto Mustafa on 09-16-2024 AST [Catalytic activity/Vol] 31 U/L <38 [facility] Lymphocytes Auto (Unsp spec) [#/Vol]Ordered By: Alberto Mustafa on 09-16-2024 Lymphocytes (Bld) [#/Vol] 0.72 10*3/uL Low 0.83-4.51 [facility] Lymphocytes/100 WBC Auto (Un sp spec)Ordered By: Alberto Mustafa on 09-16-2024 Lymphocytes/100 WBC (Bld) 13.9 % Low 19-41 [facility] MCV (mean corpuscular volume ) determinationOrdered By: Alberto Mustafa on 09-16-2024 MCV (RBC) [Entitic vol] 93.6 fL 80-94 [facility] Magnesium (Unsp spec) [Mass/ Vol]Ordered By: Altaf Mayfield on 09-16-2024 Magnesium [Mass/Vol] 2.2 mg/dL 1.5-2.2 [facility] Magnesium measurement (mass/ volume)Ordered By: Altaf Mayfield on 09-16-2024 Magnesium (Unsp spec) [Mass/Vol] 2.2 mg/dL 1.5-2.2 [facility] Mean corpuscular hemoglobin (MCH) determinationOrdered By: Alberto Mustafa on 09-16-2024 MCH (RBC) [Entitic mass] 30.0 pg 27.0-32.0 [facility] Mean corpuscular hemoglobin concentration (MCHC) determinationOrdered By: Alberto Mustafa on 09-16-2024 MCHC (RBC) [Mass/Vol] 32.1 g/dL 32-36 [facility] Mean platelet volume determi nationOrdered By: Alberto Mustafa on 09-16-2024 Platelet mean volume (Bld) [Entitic vol] 10.5 fL 6.2-12.0 [facility] Microscopic analysis of urin e for red blood cells (RBC)Ordered By: Maliha Youngblood on 09-16-2024 Microscopic analysis of urine for red blood cells (RBC) 0 SEEN /hpf 0-5 [facility] Urine RBC 0 SEEN /hpf 0-5 [facility] Monocyte percentageOrdered B y: Alberto Mustafa on 09-16-2024 Monocytes/100 WBC (Bld) 8.1 % 0-10 [facility] Mucus LM Ql (Urine sed)Order ed By: Maliha Youngblood on 09-16-2024 Mucus Ql (Urine sed) 0 SEEN /hpf [facility] Neutrophil percentageOrdered By: Alberto Mustafa on 09-16-2024 Neutrophils/100 WBC (Bld) 75.4 % High 47-70 [facility] Nitrite Test strip Ql (U)Ord ered By: Maliha Youngblood on 09-16-2024 Nitrite Ql (U) Negative Negative [facility] No Panel InformationOrdered By: Altaf Mayfield on 09-16-2024 Troponin T High Sensitivity 76 ng/L High <22 [facility] Comment on above: Delta: 57 on 5-1523Critical Result(s) Called at: by: Results read back by same.CALLED TO Ramandeep TOMLIN AT 0055 Nucleated red blood cell per centageOrdered By: Alberto Mustafa on 09-16-2024 Nucleated RBC/100 WBC (Bld) [Ratio] 0 % 0-5 [facility] Platelet countOrdered By: Janette Mustafa on 09-16-2024 Platelets (Bld) [#/Vol] 169 10*3/uL 150-450 [facility] Protein Test strip Ql (U)Ord ered By: Maliha Youngblood on 09-16-2024 Protein Ql (U) 15 mg/dl High Negative [facility] RBC Auto (Bld) [#/Vol]Ordere d By: Alberto Mustafa on 09-16-2024 RBC (Bld) [#/Vol] 5.30 10*6/uL 4.6-6.2 [facility] Serum globulin measurementOr dered By: Alberto Mustafa on 09-16-2024 Globulin (S) [Mass/Vol] 3.2 g/dL 2.2-4.2 [facility] Serum glucose measurement (m ass/volume)Ordered By: Alberto Mustafa on 09-16-2024 Glucose [Mass/Vol] 124 mg/dL High 70-99 [facility] Serum or plasma alanine meraz otransferase (ALT) measurementOrdered By: Alberto Mustafa on 09-16-2024 ALT [Catalytic activity/Vol] 15 U/L <47 [facility] Serum or plasma albumin ana urement (mass/volume)Ordered By: Alberto Mustafa on 09-16-2024 Albumin [Mass/Vol] 4.3 g/dL 3.4-4.8 [facility] Serum or plasma albumin/glob ulin mass ratioOrdered By: Alberto Mustafa on 09-16-2024 Albumin/Globulin [Mass ratio] 1.4 {ratio} 0.9-2.4 [facility] Serum or plasma alkaline keenan sphatase measurementOrdered By: Alberto Mustafa on 09-16-2024 ALP [Catalytic activity/Vol] 113 U/L 40-129 [facility] Serum or plasma anion gap de termination (moles/volume)Ordered By: Alberto Mustafa on 09-16-2024 Anion gap [Moles/Vol] 15 mmol/L 5-15 [facility] Serum or plasma calcium ana urement (mass/volume)Ordered By: Alberto Mustafa on 09-16-2024 Calcium [Mass/Vol] 10.3 mg/dL 7.6-11.0 [facility] Serum or plasma creatinine m easurement (moles/volume)Ordered By: Alberto Mustafa on 09-16-2024 Creatinine [Moles/Vol] 1.4 mg/dL High 0.8-1.3 [facility] Serum or plasma potassium me asurementOrdered By: Alberto Mustafa on 09-16-2024 Potassium [Moles/Vol] 4.4 mmol/L 3.3-5.1 [facility] Serum or plasma sodium measu rement (moles/volume)Ordered By: Alberto Mustafa on 09-16-2024 Sodium [Moles/Vol] 136 mmol/L 133-145 [facility] Serum or plasma urea nitroge n measurement (mass/volume)Ordered By: Alberto Mustafa on 09-16-2024 Urea nitrogen [Mass/Vol] 16 mg/dL 4-19 [facility] Spine Cervical without Contr ason 09-16-2024 Spine Cervical without Contras [facility] [address] [place] [address] Spine Cervical without Contras MR#: [id number] Acct: [id number] Name: GANESH FLORES Rep #: [id number] : 1935 M 88 From: Booker Leblanc MD PCP: Dr. Alberto Mustafa MD Status: REG ER Study: Spine Cervical without Contras Date of Exam: 0 09/16/24 Exam# [id number] Ordering Dr: Fiona Quintero PROCEDURE: CT CERVICAL [...] degenerative disc disease and spondylosis. Reading Location: [place] [address] CC: Dr. Alberto Mustafa MD; CRYSTAL Solorzano [address] Magistrate: Signed Normal [facility] Spine Lumbar without Contras ton 09-16-2024 Spine Lumbar without Contrast [facility] [address] [place] [address] [id number] Spine Lumbar without Contrast MR#: [id number] Acct: [id number] Name: GANESH FLORES Rep #: [id number] : 1935 M 88 From: Booker Leblanc MD PCP: Dr. Alberto Mustafa MD Status: REG ER Study: Spine Lumbar without Contrast Date of Exam: Exam# [id number] Ordering Dr: Fiona Quintero PROCEDURE: COMPUTED TOMOGRAPHY [...] 5. No acute osseous abnormalities. Reading Location: [place] [address] CC: Dr. Alberto Mustafa MD; CRYSTAL Solorzano [address] Magistrate: Signed Normal [facility] Squamous epithelial cells de tection in urine sediment by light microscopyOrdered By: Maliha Youngblood on 09-16-2024 Epithelial cells.squamous LM Ql (Urine sed) 0 SEEN /hpf 0-5 [facility] T4 freeOrdered By: Alberto nick on 09-16-2024 Free T4 [Mass/Vol] 1.40 ng/dL 0.76-1.46 [facility] TSH DL <= 0.005 mIU/L QnOrde red By: Altaf Mayfield on 09-16-2024 Thyroid Stimulating Hormone (TSH) 3.100 uIU/mL 0.300-4.200 [facility] TSH Qn 3.100 uIU/mL 0.300-4.200 [facility] TSH DL <= 0.005 mIU/L QnOrde red By: Alberto Mustafa on 09-16-2024 Thyroid Stimulating Hormone (TSH) 2.780 uIU/mL 0.300-4.200 [facility] TSH Qn 2.780 uIU/mL 0.300-4.200 [facility] Total proteinOrdered By: Jersey Mustafa on 09-16-2024 Protein [Mass/Vol] 7.5 g/dL 5.9-8.4 [facility] Urinalysis, Completeon 09-16 RBC 0 SEEN Normal 0-5 [facility] Comment on above: Order Comment: Order Date: 04/25/24 Order Info: 86-1 - CMP Order Info: [id number] - LIPID Order Info: [id number] - TSH Order Info: [id number] - T4F Performed By: #### L 506.0400 #### [facility] [address] [place], [address] BACTERIA 0 SEEN Normal None Seen [facility] Comment on above: Order Comment: Order Date: 04/25/24 Order Info: 86-1 - CMP Order Info: [id number] - LIPID Order Info: [id number] - TSH Order Info: [id number] - T4F Performed By: #### L 506.0400 #### [facility] [address] [place], [address] EPI,SQUAMOUS 0 SEEN Normal 0-5 [facility] Comment on above: Order Comment: Order Date: 04/25/24 Order Info: 86-1 - CMP Order Info: [id number] - LIPID Order Info: [id number] - TSH Order Info: [id number] - T4F Performed By: #### L 506.0400 #### [facility] [address] [place], [address] Mucus Ql (Urine sed) 0 SEEN Normal [facility] Comment on above: Order Comment: Order Date: 04/25/24 Order Info: [id number] - CMP Order Info: [id number] - LIPID Order Info: [id number] - TSH Order Info: [id number] - T4F Performed By: #### L 506.0400 #### [facility] [address] [place], [address] WBC 0 SEEN Normal 0-5 [facility] Comment on above: Order Comment: Order Date: 04/25/24 Order Info: [id number] - CMP Order Info: [id number] - LIPID Order Info: [id number] - TSH Order Info: [id number] - T4F Performed By: #### L 506.0400 #### [facility] [address] [place], [address] Urine Drug Screen (VISTA)on 09-16-2024 AMPHETAMINES Normal <1000 ng/mL [facility] Comment on above: Result Comment: EDIE ENT DICHARGED SPECIMEN NO LONGER IN LAB Performed By: #### L 500.4050, L100.0100 #### [facility] [address] [place], [address] BARBITIURATES Normal < 200 ng/mL [facility] Comment on above: Result Comment: EDIE ENT DICHARGED SPECIMEN NO LONGER IN LAB Performed By: #### L 500.4050, L100.0100 #### [facility] [address] [place], [address] BENZODIAZIPINE Normal < 200 ng/mL [facility] Comment on above: Result Comment: EDIE ENT DICHARGED SPECIMEN NO LONGER IN LAB Performed By: #### L 500.4050, L100.0100 #### [facility] [address] [place], [address] BUP Ur Drug Scr Normal < 200 ng/mL [facility] Comment on above: Result Comment: EDIE ENT DICHARGED SPECIMEN NO LONGER IN LAB Performed By: #### L 500.4050, L100.0100 #### [facility] [address] [place], [address] COCAINE Normal < 300 ng/mL [facility] Comment on above: Result Comment: EDIE ENT DICHARGED SPECIMEN NO LONGER IN LAB Performed By: #### L 500.4050, L100.0100 #### [facility] [address] [place], [address] Fentanyl Normal [facility] Comment on above: Result Comment: EDIE ENT DICHARGED SPECIMEN NO LONGER IN LAB Performed By: #### L 500.4050, L100.0100 #### [facility] [address] [place], [address] METHADONE Normal < 300 ng/mL [facility] Comment on above: Result Comment: EDIE ENT DICHARGED SPECIMEN NO LONGER IN LAB Performed By: #### L 500.4050, L100.0100 #### [facility] [address] [place], [address] OPIATES Normal < 300 ng/mL [facility] Comment on above: Result Comment: EDIE ENT DICHARGED SPECIMEN NO LONGER IN LAB Performed By: #### L 500.4050, L100.0100 #### [facility] [address] [place], [address] OXYCODONE Normal < 100 ng/mL [facility] Comment on above: Result Comment: EDIE ENT DICHARGED SPECIMEN NO LONGER IN LAB Performed By: #### L 500.4050, L100.0100 #### [facility] [address] [place], [address] PCP Normal < 25 ng/mL [facility] Comment on above: Result Comment: EDIE ENT DICHARGED SPECIMEN NO LONGER IN LAB Performed By: #### L 500.4050, L100.0100 #### [facility] [address] [place], [address] THC Normal < 50 ng/mL [facility] Comment on above: Result Comment: EDIE ENT DICHARGED SPECIMEN NO LONGER IN LAB Performed By: #### L 500.4050, L100.0100 #### [facility] [address] [place], [address] Urine blood detectionOrdered By: Maliha Youngblood on 09-16-2024 Urine Occult Blood Negative Negative [facility] Urine clarityOrdered By: Rem us Ford on 09-16-2024 Clarity (U) Clear Clear [facility] Urine color determinationOrd ered By: Maliha Youngblood on 09-16-2024 Color (U) Yellow Yellow [facility] Urine glucose detectionOrder ed By: Maliha Youngblood on 09-16-2024 Glucose Ql (U) Normal mg/dl Normal [facility] Urine leukocyte esterase det ection by dipstickOrdered By: Maliha Youngblood on 09-16-2024 Leukocyte esterase Test strip Ql (U) Negative Negative [facility] Urine pHOrdered By: Maliha Un gur on 09-16-2024 pH (U) 6.5 [pH] 5.0 - 8.0 [facility] Urine sediment bacteria coun t by microscopy (number/high power field)Ordered By: Maliha Youngblood on 09-16-2024 Bacteria LM.HPF (Urine sed) [#/Area] 0 /[HPF] None Seen [facility] Urine specific gravity measu rementOrdered By: Maliha Youngblood on 09-16-2024 Specific gravity (U) [Rel density] 1.010 1.002-1.030 [facility] Urine urobilinogen measureme ntOrdered By: Maliha Youngblood on 09-16-2024 Urobilinogen Ql (U) Normal mg/dl Normal [facility] Urobilinogen Ql (U)Ordered B y: Maliha Youngblood on 09-16-2024 Urine Urobilinogen Normal mg/dl Normal [facility] White blood cell (WBC) count Ordered By: Alberto Mustafa on 09-16-2024 WBC (Bld) [#/Vol] 5.2 10*3/uL 4.4-11.0 [facility] White blood cell countOrdere d By: Maliha Youngblood on 09-16-2024 Urine WBC 0 SEEN /hpf 0-5 [facility] White blood cell count 0 SEEN /hpf 0-5 [facility] Direct serum free thyroxine (FT4) measurementOrdered By: Alberto Mustafa on 07-22-2024 Free T4 [Mass/Vol] 1.23 ng/dL 0.76-1.46 [facility] T4 Free Directon 07-22-2024 T4 FREE DIRECT 1.23 ng/dL Normal 0.76-1.46 [facility] Comment on above: Performed By: #### L 506.0400 #### [facility] [address] [place], [address] Direct serum free thyroxine (FT4) measurementOrdered By: Alberto Mustafa on 07-03-2024 Free T4 [Mass/Vol] 2.48 ng/dL High 0.76-1.46 [facility] T4 Free Directon 07-03-2024 T4 FREE DIRECT 2.48 ng/dL High 0.76-1.46 [facility] Comment on above: Order Comment: Order Date: 07/03/24 Order Info: [id number] - T4F Performed By: #### L 506.0400 #### [facility] [address] [place], [address] CBC W/Diff, Automatedon 11-0 Absolute Lymph 0.87 X10 3/uL Normal 0.83-4.51 [facility] Comment on above: Order Comment: Order Date: 04/25/24 Order Info: [id number] - CMP Order Info: [id number] - LIPID Order Info: [id number] - TSH Order Info: 7 - T4F Performed By: #### L 506.0400 #### [facility] [address] [place], [address] Absolute Neut 3.7 X10 3/uL Normal 2.0-7.7 [facility] Comment on above: Order Comment: Order Date: 04/25/24 Order Info: [id number] - CMP Order Info: [id number] - LIPID Order Info: [id number] - TSH Order Info: [id number] - T4F Performed By: #### L 506.0400 #### [facility] [address] [place], [address] Basophils/100 WBC (Bld) 0.7 % Normal 0-1 [facility] Comment on above: Order Comment: Order Date: 04/25/24 Order Info: [id number] - CMP Order Info: [id number] - LIPID Order Info: [id number] - TSH Order Info: [id number] - T4F Performed By: #### L 506.0400 #### [facility] [address] [place], [address] Eosinophils/100 WBC (Bld) 2.8 % Normal 0-5 [facility] Comment on above: Order Comment: Order Date: 04/25/24 Order Info: [id number] - CMP Order Info: [id number] - LIPID Order Info: [id number] - TSH Order Info: 3024-7 - T4F Performed By: #### L 506.0400 #### [facility] [address] [place], [place], [id number] (731) Erythrocyte distribution width (RBC) [Ratio] 13.2 % Normal 11.6-14.6 [facility] Comment on above: Order Comment: Order Date: 04/25/24 Order Info: 86-1 - CMP Order Info: [id number] - LIPID Order Info: [id number] - TSH Order Info: [id number] - T4F Performed By: #### L 506.0400 #### [facility] [address] [place], [address] Hematocrit (Bld) [Volume fraction] 46.8 % Normal 40-54 [facility] Comment on above: Order Comment: Order Date: 04/25/24 Order Info: [id number] - CMP Order Info: [id number] - LIPID Order Info: [id number] - TSH Order Info: [id number] - T4F Performed By: #### L 506.0400 #### [facility] [address] [place], [address] Hemoglobin (Bld) [Mass/Vol] 14.8 g/dL Normal 13.0-16.5 [facility] Comment on above: Order Comment: Order Date: 04/25/24 Order Info: [id number] - CMP Order Info: [id number] - LIPID Order Info: 3 - TSH Order Info: 7 - T4F Performed By: #### L 506.0400 #### [facility] [address] [place], [address] IG% 0.600 Normal 0.0-0.9 [facility] Comment on above: Order Comment: Order Date: 04/25/24 Order Info: 86-1 - CMP Order Info: [id number] - LIPID Order Info: 3 - TSH Order Info: 7 - T4F Result Comment: IG% - Immature Granulocytes (promyelocytes, myelocytes and metamyelocytes) > 1% indicates that a LEFT SHIFT is Present. Performed By: #### L 506.0400 #### [facility] [address] [place], [address] Lymphocytes/100 WBC (Bld) 16.3 % Low 19-41 [facility] Comment on above: Order Comment: Order Date: 04/25/24 Order Info: [id number] - CMP Order Info: [id number] - LIPID Order Info: 3 - TSH Order Info: 7 - T4F Performed By: #### L 506.0400 #### [facility] [address] [place], [address] MCH (RBC) [Entitic mass] 29.6 pg Normal 27.0-32.0 [facility] Comment on above: Order Comment: Order Date: 04/25/24 Order Info: [id number] - CMP Order Info: [id number] - LIPID Order Info: 3 - TSH Order Info: 7 - T4F Performed By: #### L 506.0400 #### [facility] [address] [place], [address] MCHC (RBC) [Mass/Vol] 31.6 g/dL Low 32-36 [facility] Comment on above: Order Comment: Order Date: 04/25/24 Order Info: 86-1 - CMP Order Info: [id number] - LIPID Order Info: [id number] - TSH Order Info: [id number] - T4F Performed By: #### L 506.0400 #### [facility] [address] [place], [address] MCV (RBC) [Entitic vol] 93.6 fL Normal 80-94 [facility] Comment on above: Order Comment: Order Date: 04/25/24 Order Info: 86-1 - CMP Order Info: [id number] - LIPID Order Info: [id number] - TSH Order Info: [id number] - T4F Performed By: #### L 506.0400 #### [facility] [address] [place], [address] Monocytes/100 WBC (Bld) 9.7 % Normal 0-10 [facility] Comment on above: Order Comment: Order Date: 04/25/24 Order Info: [id number] - CMP Order Info: [id number] - LIPID Order Info: [id number] - TSH Order Info: 3024-7 - T4F Performed By: #### L 506.0400 #### [facility] [address] [place], [address] Neutrophils/100 WBC (Bld) 69.9 % Normal 47-70 [facility] Comment on above: Order Comment: Order Date: 04/25/24 Order Info: 86-1 - CMP Order Info: [id number] - LIPID Order Info: [id number] - TSH Order Info: [id number] - T4F Performed By: #### L 506.0400 #### [facility] [address] [place], [address] Nucleated RBC (Bld) [#/Vol] 0 10*3/uL Normal 0-5 [facility] Comment on above: Order Comment: Order Date: 04/25/24 Order Info: 86-1 - CMP Order Info: [id number] - LIPID Order Info: [id number] - TSH Order Info: [id number] - T4F Performed By: #### L 506.0400 #### [facility] [address] [place], [place], [address] Platelet mean volume (Bld) [Entitic vol] 10.3 fL Normal 6.2-12.0 [facility] Comment on above: Order Comment: Order Date: 04/25/24 Order Info: 86-1 - CMP Order Info: [id number] - LIPID Order Info: [id number] - TSH Order Info: [id number] - T4F Performed By: #### L 506.0400 #### [facility] [address] [place], [place], [id number] Platelets (Bld) [#/Vol] 141 10*3/uL Low 150-450 [facility] Comment on above: Order Comment: Order Date: 04/25/24 Order Info: 785-1 - CMP Order Info: [id number] - LIPID Order Info: [id number] - TSH Order Info: 3024-7 - T4F Performed By: #### L 506.0400 #### [facility] [address] [place], [place], [address] RBC (Bld) [#/Vol] 5.00 10*6/uL Normal 4.6-6.2 [facility] Comment on above: Order Comment: Order Date: 04/25/24 Order Info: [id number] - CMP Order Info: [id number] - LIPID Order Info: [id number] - TSH Order Info: 3024-7 - T4F Performed By: #### L 506.0400 #### [facility] [address] [place], [address] RDW SD 45.2 fl High 35.1-43.9 [facility] Comment on above: Order Comment: Order Date: 04/25/24 Order Info: [id number] - CMP Order Info: [id number] - LIPID Order Info: [id number] - TSH Order Info: 3024-7 - T4F Performed By: #### L 506.0400 #### [facility] [address] [place], [address] WBC (Bld) [#/Vol] 5.4 10*3/uL Normal 4.4-11.0 [facility] Comment on above: Order Comment: Order Date: 04/25/24 Order Info: 86-1 - CMP Order Info: [id number] - LIPID Order Info: 301-3 - TSH Order Info: 3024-7 - T4F Performed By: #### L 506.0400 #### [facility] [address] [place], [address] Comprehensive Metabolic Prof ilon 05-29-2024 Albumin [Mass/Vol] 3.9 g/dL Normal 3.2-5.0 [facility] Comment on above: Order Comment: Order Date: 04/25/24 Order Info: 785- - CMP Order Info: - LIPID Order Info: 3 - TSH Order Info: 3024-7 - T4F Performed By: #### L 506.0400 #### [facility] [address] [place], [place], [address] Albumin/Globulin [Mass ratio] 1.1 {ratio} Normal 0.9-2.4 [facility] Comment on above: Order Comment: Order Date: 04/25/24 Order Info: 785- - CMP Order Info: - LIPID Order Info: [id number] - TSH Order Info: 3024-7 - T4F Performed By: #### L 506.0400 #### [facility] [address] [place], [address] ALK P 117 U/L Normal 45-117 [facility] Comment on above: Order Comment: Order Date: 04/25/24 Order Info: 86-1 - CMP Order Info: [id number] - LIPID Order Info: [id number] - TSH Order Info: 3024-7 - T4F Performed By: #### L 506.0400 #### [facility] [address] [place], [address] ALT [Catalytic activity/Vol] 20 U/L Normal 16-61 [facility] Comment on above: Order Comment: Order Date: 04/25/24 Order Info: [id number] - CMP Order Info: [id number] - LIPID Order Info: [id number] - TSH Order Info: 3024-7 - T4F Performed By: #### L 506.0400 #### [facility] [address] [place], [address] AST [Catalytic activity/Vol] 22 U/L Normal 15-37 [facility] Comment on above: Order Comment: Order Date: 04/25/24 Order Info: 785-1 - CMP Order Info: [id number] - LIPID Order Info: [id number] - TSH Order Info: 3027 - T4F Performed By: #### L 506.0400 #### [facility] [address] [place], [address] Bilirubin [Mass/Vol] 0.90 mg/dL Normal 0.20-1.00 [facility] Comment on above: Order Comment: Order Date: 04/25/24 Order Info: 785-1 - CMP Order Info: [id number] - LIPID Order Info: 3 - TSH Order Info: 3024-7 - T4F Result Comment: For patients on eltrombopag therapy, use of Dimension [place] TBIL is not recommended. Performed By: #### L 506.0400 #### [facility] [address] [place], [address] BUN/CRE 16.3 RATIO Normal 10-20 [facility] Comment on above: Order Comment: Order Date: 04/25/24 Order Info: 785-1 - CMP Order Info: [id number] - LIPID Order Info: [id number] - TSH Order Info: 3024-7 - T4F Performed By: #### L 506.0400 #### [facility] [address] [place], [address] CA,Total 9.6 mg/dL Normal 8.5-10.1 [facility] Comment on above: Order Comment: Order Date: 04/25/24 Order Info: 0786-1 - CMP Order Info: [id number] - LIPID Order Info: 3 - TSH Order Info: 7 - T4F Performed By: #### L 506.0400 #### [facility] [address] [place], [address] Chloride [Moles/Vol] 105 mmol/L Normal 98-107 [facility] Comment on above: Order Comment: Order Date: 04/25/24 Order Info: 0786-1 - CMP Order Info: [id number] - LIPID Order Info: [id number] - TSH Order Info: 3024-01 - T4F Performed By: #### L 506.0400 #### [facility] [address] [place], [place], [address] CO2 [Moles/Vol] 28.0 mmol/L Normal 21.0-32.0 [facility] Comment on above: Order Comment: Order Date: 04/25/24 Order Info: 86-1 - CMP Order Info: [id number] - LIPID Order Info: [id number] - TSH Order Info: 3024-01 - T4F Performed By: #### L 506.0400 #### [facility] [address] [place], [place], [address] Creatinine [Mass/Vol] 1.35 mg/dL High 0.70-1.30 [facility] Comment on above: Order Comment: Order Date: 04/25/24 Order Info: 86-1 - CMP Order Info: [id number] - LIPID Order Info: 3 - TSH Order Info: 7 - T4F Result Comment: The validity of the calculated GFR GFRAA in patients over 70 years has not been determined. Clinical correlation is essential. Performed By: #### L 506.0400 #### [facility] [address] [place], [place], [address] EST GFR - AA 64 mL/min Normal >60 [facility] Comment on above: Order Comment: Order Date: 04/25/24 Order Info: [id number] - CMP Order Info: [id number] - LIPID Order Info: [id number] - TSH Order Info: 7 - T4F Result Comment: Afri can [place] GFR Calc Performed By: #### L 506.0400 #### [facility] [address] [place], [place], [address] GAP 4 Low 5-15 [facility] Comment on above: Order Comment: Order Date: 04/25/24 Order Info: 785-1 - CMP Order Info: [id number] - LIPID Order Info: [id number] - TSH Order Info: 7 - T4F Performed By: #### L 506.0400 #### [facility] [address] [place], [address] GFR/1.73 sq M.predicted among non-blacks MDRD (S/P/Bld) [Vol rate/Area] 53 mL/min/{1.73_m2} Low >60 [facility] Comment on above: Order Comment: Order Date: 04/25/24 Order Info: 86-1 - CMP Order Info: [id number] - LIPID Order Info: [id number] - TSH Order Info: 7 - T4F Result Comment: Non- GFR Calc Performed By: #### L 506.0400 #### [facility] [address] [place], [place], [address] Globulin (S) [Mass/Vol] 3.5 g/dL Normal 2.2-4.2 [facility] Comment on above: Order Comment: Order Date: 04/25/24 Order Info: 0786-1 - CMP Order Info: [id number] - LIPID Order Info: [id number] - TSH Order Info: 3027 - T4F Performed By: #### L 506.0400 #### [facility] [address] [place], [place], [address] Glucose [Mass/Vol] 113 mg/dL High 74-106 [facility] Comment on above: Order Comment: Order Date: 04/25/24 Order Info: 785- - CMP Order Info: [id number] - LIPID Order Info: 3 - TSH Order Info: 3024-7 - T4F Result Comment: Fast ing Glucose result from 100 to 125 mg/dL suggests IMPAIRED HOMEOSTASIS per A.D.A. criteria. Performed By: #### L 506.0400 #### [facility] [address] [place], [address] Potassium [Moles/Vol] 4.2 mmol/L Normal 3.5-5.1 [facility] Comment on above: Order Comment: Order Date: 04/25/24 Order Info: 785- - CMP Order Info: [id number] - LIPID Order Info: 3 - TSH Order Info: 7 - T4F Performed By: #### L 506.0400 #### [facility] [address] [place], [address] Sodium [Moles/Vol] 138 mmol/L Normal 136-145 [facility] Comment on above: Order Comment: Order Date: 04/25/24 Order Info: 785- - CMP Order Info: [id number] - LIPID Order Info: [id number] - TSH Order Info: 302-7 - T4F Performed By: #### L 506.0400 #### [facility] [address] [place], [address] T PROT 7.4 g/dL Normal 6.4-8.2 [facility] Comment on above: Order Comment: Order Date: 04/25/24 Order Info: 785-1 - CMP Order Info: [id number] - LIPID Order Info: [id number] - TSH Order Info: 3024-7 - T4F Performed By: #### L 506.0400 #### [facility] [address] [place], [address] Urea nitrogen [Mass/Vol] 22 mg/dL High 7-18 [facility] Comment on above: Order Comment: Order Date: 04/25/24 Order Info: 785-07 - CMP Order Info: - LIPID Order Info: [id number] - TSH Order Info: 3024-01 - T4F Performed By: #### L 506.0400 #### [facility] [address] [place], [address] Lipid Profileon 05-29-2024 Cholesterol [Mass/Vol] 162 mg/dL Normal 200 [facility] Comment on above: Order Comment: Order Date: 04/25/24 Order Info: 785- - CMP Order Info: - LIPID Order Info: [id number] - TSH Order Info: 3024-01 - T4F Result Comment: <200 mg/dL Desirable 200-240 mg/dL Borderline >240 mg/dL High Risk Performed By: #### L 506.0400 #### [facility] [address] [place], [address] Cholesterol in HDL [Mass/Vol] 81 mg/dL Normal [facility] Comment on above: Order Comment: Order Date: 04/25/24 Order Info: 785-07 - CMP Order Info: - LIPID Order Info: [id number] - TSH Order Info: 3024-01 - T4F Result Comment: The drugs N-Acetylcysteine and Metamizole may falsely depress this assay. Reference Range HDL <40 mg/dL Low HDL Cholesterol HDL >or= 60 mg/dL High HDL Cholesterol Performed By: #### L 506.0400 #### [facility] [address] [place], [address] Cholesterol in LDL [Mass/Vol] 67 mg/dL Normal 0-130 [facility] Comment on above: Order Comment: Order Date: 04/25/24 Order Info: 785-1 - CMP Order Info: [id number] - LIPID Order Info: 3 - TSH Order Info: 3024-01 - T4F Performed By: #### L 506.0400 #### [facility] [address] [place], [place], [address] Cholesterol in VLDL [Mass/Vol] 14 mg/dL Normal 5-40 [facility] Comment on above: Order Comment: Order Date: 04/25/24 Order Info: 785- - CMP Order Info: [id number] - LIPID Order Info: 3 - TSH Order Info: 7 - T4F Performed By: #### L 506.0400 #### [facility] [address] [place], [place], [address] Triglyceride [Mass/Vol] 68 mg/dL Normal [facility] Comment on above: Order Comment: Order [...] mg/dL Performed By: #### L 506.0400 #### [facility] [address] [place], [place], [address] T4 Free Directon 05-29-2024 T4 FREE DIRECT 1.83 ng/dL High 0.76-1.46 [facility] Comment on above: Order Comment: Order Date: 04/25/24 Order Info: 785-07 - CMP Order Info: - LIPID Order Info: 3 - TSH Order Info: 7 - T4F Performed By: #### L 506.0400 #### [facility] [address] [place], [place], [address] Thyroid Stim Hormone (TSH)on 05-29-2024 TSH 0.082 uIU/mL Low 0.358-3.740 [facility] Comment on above: Order Comment: Order Date: 04/25/24Order Info: 785- - CMPOrder Info: - LIPIDOrder Info: 3 - TSHOrder Info: 7 - T4F Performed By: #### L 499.0042 #### [facility] [address] [place], [place], [address] Vitamin B12on 05-29-2024 Cobalamin (Vitamin B12) [Mass/Vol] 271 pg/mL Normal 211-911 [facility] Comment on above: Order Comment: Order Date: 04/25/24Order Info: [id number] - B12 Performed By: #### L 499.0042 #### [facility] [address] [place], [place], [address] Thyroidon 05-01-2024 Thyroid [facility] [address] [place], [place] [address] Thyroid MR#: [id number] Acct: [id number] Name: GANESH FLORES Rep #: [id number] : 1935 M 88 From: Serafin carroll MD PCP: Dr. Alberto Mustafa MD Status: [facility] Study: Thyroid Date of Exam: 05/01/24 Exam# [id number] Ordering Dr: Alberto Mustafa MD [id number] STUDY: THYROID ULTRASOUND REASON FOR EXAM: Male, [...] at 11:47 EDT , CC: Dr. Alberto Mustafa MD [address] Magistrate: Signed Normal [facility] Hemoglobin A1con 04-28-2024 HbA1c (Bld) [Mass fraction] 6.0 % High 3.8-5.6 [facility] Comment on above: Order Comment: ADD O N A1C Result Comment: Norm al < 5.7 % Prediabetic 5.7 - 6.4 % Diabetic >or= 6.5 % Please note range changes. Performed By: #### L 500.4050, L100.0100 #### [facility] [address] [place], [address] CBC W/Diff, Automatedon 10-0 -2023 Absolute Lymph 0.82 X10 3/uL Low 0.83-4.51 [facility] Comment on above: Performed By: #### L 499.0042 #### [facility] [address] [place], [address] Absolute Neut 3.5 X10 3/uL Normal 2.0-7.7 [facility] Comment on above: Performed By: #### L 499.0042 #### [facility] [address] [place], [address] Basophils/100 WBC (Bld) 1.2 % High 0-1 [facility] Comment on above: Performed By: #### L 499.0042 #### [facility] [address] [place], [address] Eosinophils/100 WBC (Bld) 4.5 % Normal 0-5 [facility] Comment on above: Performed By: #### L 499.0042 #### [facility] [address] [place], [address] Erythrocyte distribution width (RBC) [Ratio] 13.3 % Normal 11.6-14.6 [facility] Comment on above: Performed By: #### L 499.0042 #### [facility] [address] [place], [address] Hematocrit (Bld) [Volume fraction] 45.6 % Normal 40-54 [facility] Comment on above: Performed By: #### L 499.0042 #### [facility] [address] [place], [address] Hemoglobin (Bld) [Mass/Vol] 14.4 g/dL Normal 13.0-16.5 [facility] Comment on above: Performed By: #### L 499.0042 #### [facility] [address] [place], [address] IG% 0.600 Normal 0.0-0.9 [facility] Comment on above: Result Comment: IG% - Immature Granulocytes (promyelocytes, myelocytes and metamyelocytes) > 1% indicates that a LEFT SHIFT is Present. Performed By: #### L 499.0042 #### [facility] [address] [place], [address] Lymphocytes/100 WBC (Bld) 16.1 % Low 19-41 [facility] Comment on above: Performed By: #### L 499.0042 #### [facility] [address] [place], [address] MCH (RBC) [Entitic mass] 29.9 pg Normal 27.0-32.0 [facility] Comment on above: Performed By: #### L 499.0042 #### [facility] [address] [place], [address] MCHC (RBC) [Mass/Vol] 31.6 g/dL Low 32-36 [facility] Comment on above: Performed By: #### L 499.0042 #### [facility] [address] [place], [address] MCV (RBC) [Entitic vol] 94.8 fL High 80-94 [facility] Comment on above: Performed By: #### L 499.0042 #### [facility] [address] [place], [address] Monocytes/100 WBC (Bld) 8.1 % Normal 0-10 [facility] Comment on above: Performed By: #### L 499.0042 #### [facility] [address] [place], [address] Neutrophils/100 WBC (Bld) 69.5 % Normal 47-70 [facility] Comment on above: Performed By: #### L 499.0042 #### [facility] [address] [place], [address] Nucleated RBC (Bld) [#/Vol] 0 10*3/uL Normal 0-5 [facility] Comment on above: Performed By: #### L 499.0042 #### [facility] [address] [place], [address] Platelet mean volume (Bld) [Entitic vol] 10.5 fL Normal 6.2-12.0 [facility] Comment on above: Performed By: #### L 499.0042 #### [facility] [address] [place], [address] Platelets (Bld) [#/Vol] 161 10*3/uL Normal 150-450 [facility] Comment on above: Performed By: #### L 499.0042 #### [facility] [address] [place], [address] RBC (Bld) [#/Vol] 4.81 10*6/uL Normal 4.6-6.2 [facility] Comment on above: Performed By: #### L 499.0042 #### [facility] [address] [place], [address] RDW SD 46.3 fl High 35.1-43.9 [facility] Comment on above: Performed By: #### L 499.0042 #### [facility] [address] [place], [address] WBC (Bld) [#/Vol] 5.1 10*3/uL Normal 4.4-11.0 [facility] Comment on above: Performed By: #### L 499.0042 #### [facility] [address] [place], [address] Comprehensive Metabolic Prof ilon 04-25-2024 Albumin [Mass/Vol] 3.5 g/dL Normal 3.2-5.0 [facility] Comment on above: Order Comment: N Performed By: #### L 499.0042 #### [facility] [address] [place], [address] Albumin/Globulin [Mass ratio] 1.0 {ratio} Normal 0.9-2.4 [facility] Comment on above: Order Comment: N Performed By: #### L 499.0042 #### [facility] [address] [place], [address] ALK P 108 U/L Normal 45-117 [facility] Comment on above: Order Comment: N Performed By: #### L 499.0042 #### [facility] [address] [place], [address] ALT [Catalytic activity/Vol] 20 U/L Normal 16-61 [facility] Comment on above: Order Comment: N Performed By: #### L 499.0042 #### [facility] [address] [place], [address] AST [Catalytic activity/Vol] 21 U/L Normal 15-37 [facility] Comment on above: Order Comment: N Performed By: #### L 499.0042 #### [facility] [address] [place], [address] Bilirubin [Mass/Vol] 0.60 mg/dL Normal 0.20-1.00 [facility] Comment on above: Order Comment: N Result Comment: For patients on eltrombopag therapy, use of Dimension [place] TBIL is not recommended. Performed By: #### L 499.0042 #### [facility] [address] [place], [address] BUN/CRE 15.1 RATIO Normal 10-20 [facility] Comment on above: Order Comment: N Performed By: #### L 499.0042 #### [facility] [address] [place], [address] CA,Total 9.7 mg/dL Normal 8.5-10.1 [facility] Comment on above: Order Comment: N Performed By: #### L 499.0042 #### [facility] [address] [place], [address] Chloride [Moles/Vol] 105 mmol/L Normal 98-107 [facility] Comment on above: Order Comment: N Performed By: #### L 499.0042 #### [facility] [address] [place], [address] CO2 [Moles/Vol] 28.0 mmol/L Normal 21.0-32.0 [facility] Comment on above: Order Comment: N Performed By: #### L 499.0042 #### [facility] [address] [place], [address] Creatinine [Mass/Vol] 1.26 mg/dL Normal 0.70-1.30 [facility] Comment on above: Order Comment: N Result Comment: The validity of the calculated GFR GFRAA in patients over 70 years has not been determined. Clinical correlation is essential. Performed By: #### L 499.0042 #### [facility] [address] [place], [address] EST GFR - AA 70 mL/min Normal >60 [facility] Comment on above: Order Comment: N Result Comment: Afri can [place] GFR Calc Performed By: #### L 499.0042 #### [facility] [address] [place], [address] GAP 5 Normal 5-15 [facility] Comment on above: Order Comment: N Performed By: #### L 499.0042 #### [facility] [address] [place], [address] GFR/1.73 sq M.predicted among non-blacks MDRD (S/P/Bld) [Vol rate/Area] 58 mL/min/{1.73_m2} Low >60 [facility] Comment on above: Order Comment: N Result Comment: Non- GFR Calc Performed By: #### L 499.0042 #### [facility] [address] [place], [address] Globulin (S) [Mass/Vol] 3.5 g/dL Normal 2.2-4.2 [facility] Comment on above: Order Comment: N Performed By: #### L 499.0042 #### [facility] [address] [place], [address] Glucose [Mass/Vol] 117 mg/dL High 74-106 [facility] Comment on above: Order Comment: N Result Comment: Fast ing Glucose result from 100 to 125 mg/dL suggests IMPAIRED HOMEOSTASIS per A.D.A. criteria. Performed By: #### L 499.0042 #### [facility] [address] [place], [address] Potassium [Moles/Vol] 4.0 mmol/L Normal 3.5-5.1 [facility] Comment on above: Order Comment: N Performed By: #### L 499.0042 #### [facility] [address] [place], [address] Sodium [Moles/Vol] 137 mmol/L Normal 136-145 [facility] Comment on above: Order Comment: N Performed By: #### L 499.0042 #### [facility] [address] [place], [address] T PROT 7.0 g/dL Normal 6.4-8.2 [facility] Comment on above: Order Comment: N Performed By: #### L 499.0042 #### [facility] [address] [place], [address] Urea nitrogen [Mass/Vol] 19 mg/dL High 7-18 [facility] Comment on above: Order Comment: N Performed By: #### L 499.0042 #### [facility] [address] [place], [address] Lipid Profileon 04-25-2024 Cholesterol [Mass/Vol] 216 mg/dL High 200 [facility] Comment on above: Order Comment: N Result Comment: <200 mg/dL Desirable 200-240 mg/dL Borderline >240 mg/dL High Risk Performed By: #### L 499.0042 #### [facility] [address] [place], [address] Cholesterol in HDL [Mass/Vol] 74 mg/dL Normal [facility] Comment on above: Order Comment: N Result Comment: The drugs N-Acetylcysteine and Metamizole may falsely depress this assay. Reference Range HDL <40 mg/dL Low HDL Cholesterol HDL >or= 60 mg/dL High HDL Cholesterol Performed By: #### L 499.0042 #### [facility] [address] [place], [address] Cholesterol in LDL [Mass/Vol] 103 mg/dL Normal 0-130 [facility] Comment on above: Order Comment: N Performed By: #### L 499.0042 #### [facility] [address] [place], [address] Cholesterol in VLDL [Mass/Vol] 39 mg/dL Normal 5-40 [facility] Comment on above: Order Comment: N Performed By: #### L 499.0042 #### [facility] [address] [place], [address] Triglyceride [Mass/Vol] 196 mg/dL Normal [facility] Comment on above: Order Comment: N Result Comment: The drugs N-Acetylcysteine and Metamizole may falsely depress this assay. Serum Triglycerides Reference Interval Normal <150 mg/dL Borderline high 150 - 199 mg/dL High 200 - 499 mg/dL Very High > or = 500 mg/dL Performed By: #### L 499.0042 #### [facility] [address] [place], [address] T4 Free Directon 04-25-2024 T4 FREE DIRECT 0.64 ng/dL Low 0.76-1.46 [facility] Comment on above: Order Comment: N Performed By: #### L 499.0042 #### [facility] [address] [place], [address] Thyroid Stim Hormone (TSH)on 04-25-2024 TSH 9.250 uIU/mL High 0.358-3.740 [facility] Comment on above: Order Comment: N Performed By: #### L 499.0042 #### [facility] [address] [place], [address] Vitamin B12on 04-25-2024 Cobalamin (Vitamin B12) [Mass/Vol] 327 pg/mL Normal 211-911 [facility] Comment on above: Performed By: #### L 499.0042 #### [facility] [place], [address] Vital Signs Date Time Vital Sign Value Performing Clinician Osie jimenez 12-31-2024 20:58-0400 Body temperature 97.8 [degF] Dr. Alberto Mustafa MD Work Phone: [facility] 12-31-2024 20:58-0400 Diastolic blood pressure 74 mm[Hg] Dr. Alberto Mustafa MD Work Phone: [facility] 12-31-2024 20:58-0400 Heart rate 89 /min Dr. Alberto Mustafa MD Work Phone: 6(819)908-729324 [place] [address] 12-31-2024 20:58-0400 Respiratory rate 16 /min Dr. Alberto Mustafa MD Work Phone: 9(540)310-455524 [place] [address] 12-31-2024 20:58-0400 SaO2% (BldA) [Mass fraction] 96 % Dr. Alberto Mustafa MD Work Phone: [facility] 12-31-2024 20:58-0400 Systolic blood pressure 112 mm[Hg] Dr. Alberto Mustafa MD Work Phone: [facility] 12-31-2024 19:02-0400 Body mass index (BMI) [Ratio] 28 kg/m2 Dr. Alberto Mustafa MD Work Phone: [facility] 12-31-2024 19:02-0400 Body weight 101.[address] Alberto Mustafa MD Work Phone: [facility] 12-31-2024 15:46-0400 Body height 190.[address] Alberto Mustafa MD Work Phone: [facility] 12-31-2024 11:30-0400 Body temperature 98.6 [degF] Dr. Alberto Mustafa MD Work Phone: [facility] 12-31-2024 11:30-0400 Respiratory rate 16 /min Dr. Alberto Mustafa MD Work Phone: [facility] 12-24-2024 09:23-0400 Diastolic blood pressure 63 mm[Hg] Dr. Alberto Mustafa MD Work Phone: [facility] 12-24-2024 09:23-0400 Heart rate 72 /min Dr. Alberto Mustafa MD Work Phone: [facility] 12-24-2024 09:23-0400 Systolic blood pressure 124 mm[Hg] Dr. Alberto Mustafa MD Work Phone: 1(238)108-108024 [place] [address] 12-03-2024 13:22-0400 Body temperature 97 [degF] Dr. Alberto Mustafa MD Work Phone: 1(121)208-998846 [place] [address] 12-03-2024 13:22-0400 Diastolic blood pressure 68 mm[Hg] Dr. Alberto Mustafa MD Work Phone: 3(181)866-479524 [place] [address] 12-03-2024 13:22-0400 Heart rate 78 /min Dr. Alberto Mustafa MD Work Phone: 7(890)980-096824 [place] [address] 12-03-2024 13:22-0400 Respiratory rate 18 /min Dr. Alberto Mustafa MD Work Phone: [facility] 12-03-2024 13:22-0400 Systolic blood pressure 133 mm[Hg] Dr. Alberto Mustafa MD Work Phone: [facility] 10-21-2024 00:35-0400 Body temperature 96.7 [degF] Dr. Alberto Mustafa MD Work Phone: [facility] 10-21-2024 00:35-0400 Diastolic blood pressure 54 mm[Hg] Dr. Alberto Mustafa MD Work Phone: [facility] 10-21-2024 00:35-0400 Heart rate 59 /min Dr. Alberto Mustafa MD Work Phone: [facility] 10-21-2024 00:35-0400 Respiratory rate 18 /min Dr. Alberto Mustafa MD Work Phone: [facility] 10-21-2024 00:35-0400 Systolic blood pressure 161 mm[Hg] Dr. Alberto Mustafa MD Work Phone: [facility] 10-15-2024 12:16-0400 Body temperature 96.7 [degF] Dr. Alberto Mustafa MD Work Phone: [facility] 10-15-2024 12:16-0400 Diastolic blood pressure 54 mm[Hg] Dr. Alberto Mustafa MD Work Phone: [facility] 10-15-2024 12:16-0400 Heart rate 59 /min Dr. Alberto Mustafa MD Work Phone: [facility] 10-15-2024 12:16-0400 Respiratory rate 18 /min Dr. Alberto Mustafa MD Work Phone: [facility] 10-15-2024 12:16-0400 Systolic blood pressure 161 mm[Hg] Dr. Alberto Mustafa MD Work Phone: [facility] 09-19-2024 16:34-0500 Body temperature 97.9 [degF] Dr. Alberto Mustafa MD Work Phone: [facility] 09-19-2024 16:34-0500 Diastolic blood pressure 74 mm[Hg] Dr. Alberto Mustafa MD Work Phone: [facility] 09-19-2024 16:34-0500 Heart rate 65 /min Dr. Alberto Mustafa MD Work Phone: [facility] 09-19-2024 16:34-0500 Respiratory rate 16 /min Dr. Alberto Mustafa MD Work Phone: [facility] 09-19-2024 16:34-0500 SaO2% (BldA) [Mass fraction] 96 % Dr. Alberto Mustafa MD Work Phone: [facility] 09-19-2024 16:34-0500 Systolic blood pressure 133 mm[Hg] Dr. Alberto Mustafa MD Work Phone: [facility] 09-19-2024 06:00-0500 Body mass index (BMI) [Ratio] 23.6 kg/m2 Dr. Alberto Mustafa MD Work Phone: [facility] 09-19-2024 06:00-0500 Body weight [address] Alberto Mustafa MD Work Phone: [facility] 09-17-2024 10:45-0500 Body height 190.[address] Alberto Mustafa MD Work Phone: [facility] Encounters Encounter Date Encounter Type Care Provider Facility Start: 12-31-2024 End: 12-31-2024 Emergency department patient visit Dr. Alberto Mustafa MD Work Phone: -Emergency Department Work Phone: Start: 12-31-2024 ambulatory [facility] Facility: [facility] Start: 12-31-[address] Jaden bucio DPM -[facility]aling Center Work Phone: Start: 12-17-2024 ambulatory [facility] Facility: [facility] Start: 12-17-[address] Michael matta MD -[facility] Work Phone: Start: 12-16-2024 ambulatory [facility] Facility: [facility] Start: 12-16-[address] [facility] Work Phone: Start: 12-03-2024 End: 12-20-[address] Alberto Mustafa MD Work Phone: [facility] Work Phone: Start: 12-03-2024 End: 12-20-[address] Jaden Forman DPM -Wound Healing [facility] Work Phone: Start: 12-03-[address] Jaden bucio DPM -Wound Healing Center Work Phone: Start: 11-26-2024 End: 11-26-[address] [facility] [place] [facility] Work Phone: Start: 11-26-[address] Michael Moreno [facility] [place] Work Phone: Start: 11-26-2024 End: 11-26-2024 ambulatory [facility] Facility:[facility] Start: 11-24-2024 End: 11-24-[address] Michael [facility] [place] Work Phone: Start: 11-24-[address] Michael Muller [place] Work Phone: Start: 11-24-2024 End: 11-24-2024 ambulatory [facility] Facility:[facility] Start: 11-05-2024 End: 11-05-[address] Alberto Mustafa MD Work Phone: [facility] Work Phone: Start: 11-05-2024 End: 11-05-[address] Michael [place] [place] Work Phone: Start: 11-05-[address] Michael Moreno [facility] [place] Work Phone: Start: 11-05-2024 End: 11-05-2024 ambulatory [facility] Facility:[facility] Start: 10-27-2024 End: 10-27-[address] Alberto Mustafa MD Work Phone: [facility] Work Phone: Start: 10-27-2024 End: 10-27-[address] Michael [place] [place] Work Phone: Start: 10-27-2024 End: 10-27-2024 ambulatory [facility] Facility:[facility] Start: 10-22-2024 End: 11-19-[address] Jaden Forman DPM -Wound Healing Ce nter Work Phone: Start: 10-22-[address] Jaden bucio DPM -Wound Healing Center Work Phone: Start: 10-22-2024 End: 11-19-2024 ambulatory [facility] Facility:[facility] Start: 10-15-2024 End: 10-20-[address] Alberto Mustafa MD Work Phone: [facility] Work Phone: Start: 10-15-2024 End: 10-20-[address] Jaden ATWOODM -Wound Healing Ce nter Work Phone: Start: 09-24-2024 End: 09-24-[address] Alberto Mustafa MD Work Phone: [facility] Work Phone: Start: 09-24-2024 End: 09-24-[address] Michael Meeks MD -[facility] [place] Work Phone: Start: 09-24-[address] Michael matta MD -[facility] [place] Work Phone: Start: 09-24-2024 End: 09-24-2024 ambulatory [facility] Facility:[facility] Start: 09-22-2024 End: 09-22-[address] Alberto Mustafa MD Work Phone: [facility] Work Phone: Start: 09-22-2024 End: 09-22-[address] Michael Meeks MD -[facility] [place] Work Phone: Start: 09-22-[address] Mcihael matta MD -[facility] [place] Work Phone: Start: 09-22-2024 End: 09-22-2024 ambulatory [facility] Facility:[facility] Start: 09-19-2024 Non-patient / Non-visit Dr. Demetrius Barreto DO [facility] Work Phone: Start: 09-18-2024 Non-patient / Non-visit Dr. Demetrius Barreto DO [facility] Work Phone: Start: 09-17-2024 Non-patient / Non-visit Dr. Demetrius Barreto DO [facility] Work Phone: Start: 09-17-2024 ambulatory Alberto Mustafa Facilit y:[facility] Start: 09-17-2024 Non-patient / Non-visit Dr. Grace Lockhart MD -[facility] Start: 09-16-2024 End: 09-19-2024 ambulatory Altaf Meeks Facility:[facility] Start: 09-16-2024 End: 09-19-2024 Evaluation and management of inpatient Dr. Demetrius Nash DO -[facility] Work Phone: Start: 09-16-2024 End: 09-16-[address] Alberto Mustafa MD -Laboratory, [facility] Start: 09-16-2024 End: 09-16-2024 ambulatory Alberto Mustafa Facility:[facility] Start: 07-22-2024 End: 07-22-[address] Alberto Mustafa MD -Laboratory, [facility] Start: 07-22-2024 End: 07-22-2024 ambulatory Alberto Mustafa Facility:[facility] Start: 07-03-2024 End: 07-03-[address] Alberto Mustafa MD -Laboratory, [facility] Start: 07-03-2024 End: 07-03-2024 ambulatory Alberto Mustafa Facility:[facility] Start: 05-29-2024 End: 05-29-2024 ambulatory Alberto Mustafa Facility:[facility] Start: 05-01-2024 End: 05-01-2024 ambulatory Alberto Mustafa Facility:[facility] Start: 04-25-2024 End: 04-25-2024 ambulatory Alberto Mustafa Facility:[facility] Procedures Date Procedure Procedure Detail Performing Clinician [...] Activity Detail Author Start: 12-31-2024 [facility] Start: 09-19-2024 Patient discharge [facility] Start: 09-16-2024 Consultation for treatment [facility] Start: 09-16-2024 Following clinical p athway protocol [facility] Start: 09-16-2024 Assessment of risk o f venous thromboembolism [facility] Start: 09-16-2024 Insertion of cathete r into peripheral vein [facility] Start: 09-16-2024 Measuring intake and output [facility] Start: 09-16-2024 Oxygen therapy [facility] Start: 09-16-2024 Providing care accor ding to standard [facility] Start: 09-16-2024 Provision of activit y privileges [facility] Start: 09-16-2024 Referral to occupati onal therapist [facility] Start: 09-16-2024 Referral to service [facility] Start: 09-16-2024 [facility] Start: 09-16-2024 Admission procedure [facility] Start: 09-16-2024 [facility] Start: 09-16-2024 Referral to service [facility] Start: 09-16-2024 [facility] Start: 09-16-2024 Patient referral to dietitian [facility] Patient Education ED Skin Tear ( Skin Avulsion) [facility] Work Phone: Patient referral [facility] Work Phone: Immunizations Immunization Date Immunization Notes Care Provider Fa mina 12-31-2024 tetanus toxoid, redu jean pierre diphtheria toxoid, and acellular pertussis vaccine, adsorbed Dr. Alberto Mustafa MD Work Phone: [facility] Payers Date Payer Category Payer Medicare [id number] Self-pay 2024 Unknown [id number] Unknown [id number] 2.16.8 40.1.145561.3.579.2.462 Unknown [id number] 2.16.8 40.1.024433.3.579.2.462 Unknown [id number] 2.16.8 40.1.876713.3.579.2.462 Unknown [id number] 2.16.8 40.1.282458.3.579.2.462 Unknown [id number] 2.16.8 40.1.745558.3.579.2.462 Unknown [id number] 2.16.8 40.1.084234.3.579.2.462 Unknown [id number] 2.16.8 40.1.558950.3.579.2.462 Unknown [id number] 2.16.8 40.1.075602.3.579.2.462 Unknown [id number] 2.16.8 40.1.959684.3.579.2.462 Unknown [id number] 2.16.8 40.1.763565.3.579.2.462 Unknown [id number] 2.16.8 40.1.579467.3.579.2.462 Unknown [id number] 2.16.8 40.1.720951.3.579.2.462 Unknown [id number] 2.16.8 40.1.172402.3.579.2.462 Unknown [id number] 2.16.8 40.1.046487.3.579.2.462 Unknown [id number] 2.16.8 40.1.445840.3.579.2.462 Unknown [id number] 2.16.8 40.1.867268.3.579.2.462 Unknown [id number] 2.16.8 40.1.924851.3.579.2.462 Unknown [id number] 2.16.8 40.1.702123.3.579.2.462 Unknown [id number] 2.16.8 40.1.620751.3.579.2.462 Unknown [id number] 2.16.8 40.1.579560.3.579.2.462 Unknown [id number] 2.16.8 40.1.922819.3.579.2.462 Unknown [id number] 2.16.8 40.1.588501.3.579.2.462 Unknown [id number] 2.16.8 40.1.930167.3.579.2.462 Unknown [id number] 2.16.8 40.1.378495.3.579.2.462 Social History Date Type Detail Facility Start: 09-16-2024 End: 12-31-2024 Tobacco smoking status NHIS Never smoked tobacco (finding) [facility] Start: 10-21-2024 End: 11-18-2024 Sex Male (finding) [facility] Start: 1935 Sex Assigned At Male [facility] Goals Date Patient Goal Desired Activity /State Functional Status Date Assessment Result Facility 09-19-2024 Functional status Assist with Urinal [facility] Work Phone: Mental Status Date Assessment Result Facility 09-19-2024 Cognitive function Voice/Name Aimee Byrne [facility] Work Phone: Clinical Notes 09-16-2024 to 12-03-2024 Note Date & Type Note Facility 12-03-2024 Progress note Note Date/Time December 03, 2024 2:36pm [facility] [address] [place] [address] Progress Note - Wound Care 12/03/24 1433 MR#: [id number] Acct: [id number] Name: GANESH FLORES Rep #:[id number] : 1935 89 From: Jaden MONAHAN PCP: [...] Date Recorded By Document 11/26/24 13:16 KW [id number] 11/26/24 13:25 KW Document 12/03/24 13:22 VT [id number] 12/03/24 13:29 VT 11/26/24 12/03/24 13:16 13:22 - Today's Visit Information Type of service Follow-up Visit Follow-up Visit (Physician/CURRICULUM SUPERVISOR (Physician/CURRICULUM SUPERVISOR ) ) Arrival Mode Ambulatory, Ambulatory, Walker [...] Date Recorded By Document 11/26/24 13:16 KW [id number] 11/26/24 13:25 KW Document 12/03/24 13:22 VT [id number] 12/03/24 13:29 VT 11/26/24 12/03/24 13:16 13:22 Wound Center Nurse [...] Large (67-100%) Medium (34-66%) -Granulation Quality Red Pale,Brunson -Necrosis Amt Medium (34-66%) -Necrotic Tissue Type [...] Recorded Date Recorded By Document 11/26/24 13:30 [id number] 11/26/24 13:36 Document 12/03/24 13:52 [id number] 12/03/24 13:54 11/26/24 12/03/24 13:30 13:52 Wound [...] Recorded Date Recorded By Document 11/26/24 13:51 VT [id number] 11/26/24 13:53 VT Document 12/03/24 14:07 VT [id number] 12/03/24 14:11 VT 11/26/24 12/03/24 13:51 14:07 Wound Care Center [...] Patient will follow-up in 1 week 12/03/24 2924 <Electronically signed by Jaden Forman DPM> Cosigner Signature (if applicable): CC: ~ Signed [facility] Work Phone: 1(175) 904-567505-14-2025 Progress note [facility] [address] [place] [address] Progress Note - Wound Care 12/03/24 1433 MR#: [id number] Acct: [id number] Name: GANESH FLORES Rep #:[id number] : 1935 89 From: Jaden MONAHAN PCP: [...] Date Recorded By Document 11/26/24 13:16 KW [id number] 11/26/24 13:25 KW Document 12/03/24 13:22 VT [id number] 12/03/24 13:29 VT 11/26/24 12/03/24 13:16 13:22 - Today's Visit Information Type of service Follow-up Visit Follow-up Visit (Physician/CURRICULUM SUPERVISOR (Physician/CURRICULUM SUPERVISOR ) ) Arrival Mode Ambulatory, Ambulatory, Walker [...] Date Recorded By Document 11/26/24 13:16 KW [id number] 11/26/24 13:25 KW Document 12/03/24 13:22 MT [id number] 12/03/24 13:29 MT 11/26/24 12/03/24 13:16 13:22 [...] Large (67-100%) Medium (34-66%) -Granulation Quality Red Pale,Brunson -Necrosis Amt Medium (34-66%) -Necrotic Tissue Type [...] Recorded Date Recorded By Document 11/26/24 13:30 [id number] 11/26/24 13:36 Document 12/03/24 13:52 [id number] 12/03/24 13:54 11/26/24 12/03/24 13:30 13:52 Wound [...] Recorded Date Recorded By Document 11/26/24 13:51 VT [id number] 11/26/24 13:53 VT Document 12/03/24 14:07 VT [id number] 12/03/24 14:11 VT 11/26/24 12/03/24 13:51 14:07 Wound Care Center [...] Cosigner Signature (if applicable): CC: ~ Signed [facility]05-07-2025 Progress note Author Jaden Forman [facility] Note Date/Time November 26, 2024 1:47pm [facility] [address] [place] [address] Progress Note - Wound Care 11/26/24 1344 MR#: [id number] Acct: [id number] Name: GANESH FLORES JAX Rep #:[id number] : 1935 88 From: Jaden Sabillon PM [...] Date Recorded By Document 11/26/24 13:16 KW [id number] 11/26/24 13:25 KW 11/26/24 13:16 WC - Today's Visit Information Type of service Follow-up Visit (Physician/CURRICULUM SUPERVISOR ) Arrival Mode Ambulatory, Walker Patient Identification [...] Date Recorded By Document 11/26/24 13:16 KW [id number] 11/26/24 13:25 KW 11/26/24 13:16 Wound Center [...] Date Recorded By Document 11/26/24 13:30 CAYLA [id number] 11/26/24 13:36 CAYLA 11/26/24 13:30 Wound Center [...] Cosigner Signature (if applicable): CC: ~ Signed [facility] Work Phone: 1(367) 392-190305-07-2025 Progress note [facility] [address] [place] [address] Progress Note - Wound Care 11/26/24 1344 MR#: [id number] Acct: [id number] Name: GANESH FLORES Rep #:[id number] : 1935 88 From: Jaden MONAHAN PCP: [...] Date Recorded By Document 11/26/24 13:16 KW [id number] 11/26/24 13:25 11/26/24 13:16 - Today's Visit Information Type of service Follow-up Visit (Physician/CURRICULUM SUPERVISOR ) Arrival Mode Ambulatory, Walker Patient Identification [...] Date Recorded By Document 11/26/24 13:16 RIVAS [id number] 11/26/24 13:25 11/26/24 13:16 Wound Center Nurse [...] Date Recorded By Document 11/26/24 13:30 JF [id number] 11/26/24 13:36 JF 11/26/24 13:30 Wound Center [...] Cosigner Signature (if applicable): CC: ~ Signed [facility]03-29-2025 Progress note Author Jaden Forman [facility] Note Date/Time October 18, 2024 8:2 7pm [facility] [address] [place] [address] Progress Note - Wound Care 10/18/242022 MR#: [id number] Acct: [id number] Name: GANESH FLORES Rep #:[id number] : 1935 88 From: Jaden MONAHAN PCP: [facility] Alberto Mustafa MD [facility] Location: History of Present Illness Date of [...] Date Recorded By Document 10/08/24 11:57 MT [id number] 10/08/24 12:07 MT Document 10/15/24 12:16 KW [id number] 10/15/24 12:20 KW 10/08/24 10/15/24 11:57 12:16 - Today's Visit Information Type of service Initial Visit Follow-up Visit (Physician/CURRICULUM SUPERVISOR ) Arrival Mode Ambulatory, Ambulatory, Walker Walker [...] Recorded Date Recorded By Document 10/08/24 11:57 VT [id number] 10/08/24 12:07 MT Document 10/15/24 12:16 KW [id number] 10/15/24 12:20 KW 10/08/24 10/15/24 11:57 12:16 [...] Amt Medium (34-66%) Small (1-33%) -Granulation Quality Pale,Brunson Brunson -Necrosis Amt Medium (34-66%) Small (1-33%) -Necrotic [...] Recorded Date Recorded By Document 10/08/24 12:21 [id number] 10/08/24 12:25 Document 10/15/24 12:53 [id number] 10/15/24 12:55 10/08/24 10/15/24 12:21 12:53 Wound [...] 0000 10/08/24 15:07 Document 10/15/24 13:07 KW [id number] 10/15/24 13:07 10/08/24 10/15/24 15:07 13:07 Wound [...] Cosigner Signature (if applicable): CC: ~ Signed [facility] Work Phone: 1(886) 364-919503-29-2025 Progress note [facility] [address] [place] [address] Progress Note - Wound Care 10/18/242022 MR#: [id number] Acct: [id number] Name: GANESH FLORES Rep #:[id number] : 1935 88 From: Jaden MONAHAN PCP: [...] Recorded Date Recorded By Document 10/08/24 11:57 VT [id number] 10/08/24 12:07 MT Document 10/15/24 12:16 [id number] 10/15/24 12:20 10/08/24 10/15/24 11:57 12:16 - Today's Visit Information Type of service Initial Visit Follow-up Visit (Physician/CURRICULUM SUPERVISOR ) Arrival Mode Ambulatory, Ambulatory, Walker Walker [...] Recorded Date Recorded By Document 10/08/24 11:57 VT [id number] 10/08/24 12:07 MT Document 10/15/24 12:16 KW [id number] 10/15/24 12:20 KW 10/08/24 10/15/24 11:57 12:16 [...] Amt Medium (34-66%) Small (1-33%) -Granulation Quality Pale,Brunson Brunson -Necrosis Amt Medium (34-66%) Small (1-33%) -Necrotic [...] Recorded Date Recorded By Document 10/08/24 12:21 [id number] 10/08/24 12:25 Document 10/15/24 12:53 [id number] 10/15/24 12:55 10/08/24 10/15/24 12:21 12:53 Wound [...] 0000 10/08/24 15:07 Document 10/15/24 13:07 KW [id number] 10/15/24 13:07 KW 10/08/24 10/15/24 15:07 13:07 [...] Cosigner Signature (if applicable): CC: ~ Signed [facility]03-20-2025 History and physical note Author Jaden Forman [facility] Note Date/Time October 09, 2024 3:0 9pm [facility] [address] [place] [address] H&P Exam - Wound Care 10/09/24 1419 MR#: [id number] Acct: [id number] Name: GANESH FLORES Rep #:[id number] : 1935 88 From: Jaden Forman D [...] was seen by emergency room department at [facility] and evaluated and discharged. He states the wound has been present but does not know how long. He denies any trauma to the area. Denies constitutional symptoms. No other pedal complaints at this time. [facility] Medical History Agitation due to dementia [...] Recorded Date Recorded By Document 10/08/24 11:57 VT [id number] 10/08/24 12:07 VT 10/08/24 11:57 - Today's Visit Information Type [...] Recorded Date Recorded By Document 10/08/24 11:57 VT [id number] 10/08/24 12:07 VT 10/08/24 11:57 Wound Center Nurse 1 Left [...] Under -Granulation Amt Medium (34-66%) -Granulation Quality Pale,Brunson -Necrosis Amt Medium (34-66%) -Necrotic Tissue Type [...] Recorded Date Recorded By Document 10/08/24 12:21 [id number] 10/08/24 12:25 10/08/24 12:21 Wound Center Nurse [...] will continue weekly wound care here at [facility]. Patient was grateful for his care. He will continue to ambulate as tolerated with a walker. Patient will follow-up in 1 week 10/09/24 [id number] <Electronically signed by Jaden Froman DPM> Cosigner Signature (if applicable): CC: ~ Signed [facility] Work Phone: 1(954) 336-205403-20-2025 History and physical note [facility] [address] [place] [id number] H&P Exam - Wound Care 10/09/24 1419 MR#: [id number] Acct: [id number] Name: GANESH FLORES Rep #:[id number] : 1935 88 From: Jaden MONAHAN PCP: [...] was seen by emergency room department at [facility] and evaluated and discharged. He states the wound has been present but does not know how long. He denies any trauma to the area. Denies constitutional symptoms. No other pedal complaints at this time. [facility] Medical History Agitation due to dementia [...] Recorded Date Recorded By Document 10/08/24 11:57 VT [id number] 10/08/24 12:07 VT 10/08/24 11:57 - Today's Visit Information Type [...] Recorded Date Recorded By Document 10/08/24 11:57 VT [id number] 10/08/24 12:07 VT 10/08/24 11:57 Wound Center Nurse 1 Left [...] Under -Granulation Amt Medium (34-66%) -Granulation Quality Pale,Brunson -Necrosis Amt Medium (34-66%) -Necrotic Tissue Type [...] Recorded Date Recorded By Document 10/08/24 12:21 [id number] 10/08/24 12:25 10/08/24 12:21 Wound Center Nurse [...] andwill continue weekly wound care here at [facility]. Patient was grateful for his care. He will continue to ambulate as tolerated with a walker. Patient will follow-up in 1 week 10/09/24 1506 Cosigner Signature (if applicable): CC: ~ Signed [facility]02-28-2025 [facility] Medical Records Department [address] [place] [address] Discharge Summary 09/19/24 1447 MR#: [id number] Acct: [id number] Name: GANESH FLORES Rep #: [id number] : 1935 88 From: Demetrius Nash DO PCP: Dr. Alberto Mustafa MD Status:DIS BOY Location: [place] [address] Providers Date of Admission: 09/16/24 Date of Discharge: 09/19/24 Primary Care Physician: Dr. 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 September 16, 2024 7:21pm Closed head injury inactive 2024 7:21pm Dementia inactive September 16, 2024 7:21pm Fall inactive September 16, 2024 7:21pm Hypothyroidism inactive August 242024 7:21pm Non-pressure chronic ulcer o f other part of left foot with fat layer exposed chronic October 15 12:15pm [facility] Work Phone: 1(413) 187-954102-25-2025 Evaluation note* Diagnosis Onset Date Resolution Status [...] layer exposed chronic December 03, 2024 1:15pm [facility] Work Phone: 1(933) 772-994502-25-2025 Evaluation note* Diagnosis Onset Date Resolution Status [...] of bone chronic December 31, 2024 11:00am [facility] Work Phone: Reason for referral (narrative)No reason for referral information availableWLancaster [facility] Work Phone: Chief Complaint and Reason for Visit Chief Complaint Admit Date WORSENING DEMENTIA AND RECENT FALL Febru song2024 7:21pm WORSENING DEMENTIA AND RECENT FALL Febru song2024 4:02pm WORSENING DEMENTIA AND RECENT FALL Febru 2024 6:37pm WORSENING DEMENTIA AND RECENT FALL Febru song 2024 2:47pm LABWORK September 22, 2024 5:00 am [facility] WORK September 24, 2024 5: 00am [...] 2:47pm LABWORK September 22, 2024 5:00 am [facility] September 24, 2024 5: 00am [...] 2:47pm LABWORK September 22, 2024 5:00 am [facility] September 24, 2024 5: 00am WOUND- LEFT FOOT October 15, 2024 12: 15pm WOUND- LEFT FOOT October 22, 2024 12:4 2pm LABWORK October 27, 2024 5:00 am [facility] November 05, 2024 5 :00am [...] 2:47pm LABWORK September 22, 2024 5:00 am [facility] WORK September 24, 2024 5: 00am WOUND- LEFT FOOT October 15, 2024 12: 15pm WOUND- LEFT FOOT October 22, 2024 12:4 2pm LABWORK October 27, 2024 5:00 am [facility] WORK November 05, 2024 5 :00am [...] 2:47pm LABWORK September 22, 2024 5:00 am [facility] WORK September 24, 2024 5: 00am WOUND- LEFT FOOT October 15, 2024 12: 15pm WOUND- LEFT FOOT October 22, 2024 12:4 2pm LABWORK October 27, 2024 5:00 am [facility] WORK November 05, 2024 5 :00am [facility] WORK November 24, 2024 5:00 am LABWORK November 26, 2024 5:00am WOUND- LEFT FOOT December 03, 2024 1:15p m [facility] December 16, 2024 4:0 0am [facility] WORK December 17, 2024 5:0 0am [...] Do you have a Healthcare Power of Technical Assoc? No September 16, 2024 9:52pm Summary Purpose [...] section and content) DATE CREATED AUTHOR 12/31/2024 [place] FOR RECORDS PERTAINING TO PATIENTS WHO ARE [...] BE BASED ON THE PRIMARY CLINICAL RECORDS. [employer] provides no warranty or guarantee of the accuracy or completeness of information in this document.
--- OUTSIDE RECORDS SUMMARY | 2025-01-02 02:20 | XMS RPT_ITS | CCD ---
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 Alberto Marrufo Primary Care Provider Moon RIVERO, Dr. Alberto Marrufo Attending Provider Moon RIVERO, Dr. Alberto Marrufo Referring Provider [phone] Dr. Maliha Youngblood DO Emergency Provider Meeks [...] Care Unavailable Michael Meeks Referring Unavailable Jaden Formna Attending Unavailable Schinner, Alberto E Primary Care [...] Unavailable Altaf Meeks Attending Unavailable Dr. Alberto Musatfa MD Primary Care Provider Dr. Alberto Mustafa MD Attending Provider [phone] Dr. Alberto Mustafa MD Referring Provider Dr. Michael Meeks MD Referring Provider Unavail able Dr. Booker Rodríguez DO Emergency Provider Dr. Michael Meeks DO Primary Care Provider Allergies Allergy Classification Reported Allergen(s) Allergy Type Date of Onset Reaction(s) Facility (1 source) Shellfish Drug allergy (disorder) 09-16-2024 [facility] Repository Medications Current Medications Medication Drug [...] 12-17-2024 Anion gap [Moles/Vol] 9 mmol/L 5-15 [facility] BUN/creatinine ratioOrdered By: Michael Meeks on 12-17-2024 Urea nitrogen/Creatinine [Mass ratio] 25.8 mg/mg High 10-20 [facility] Bilirubin directOrdered By: Michael Meeks on 12-17-2024 Bilirubin.direct [Mass/Vol] 0.17 mg/dL 0.00-0.30 [facility] Bilirubin, totalOrdered By: Michael Meeks on 12-17-2024 Bilirubin [Mass/Vol] 0.47 mg/dL 0.00-1.[address] [facility] Carbon dioxide, total [Moles /volume] in Central venous bloodOrdered By: Michael Meeks on 12-17-2024 CO2 [Moles/Vol] 26.5 mmol/L 21.0-32.0 [facility] Chloride assayOrdered By: Yfn Meeks on 12-17-2024 Chloride [Moles/Vol] 105 mmol/L 98-[address] [facility] Glomerular filtration rate ( GFR) estimation/1.73 sq m using serum, plasma, or whole bOrdered By: Michael Meeks on 12-17-2024 GFR/1.73 sq M.predicted among non-blacks MDRD (S/P/Bld) [Vol rate/Area] 53 mL/min/{1.73_m2} Low >60 [facility] Comment on above: mL/min/1.73m2 CKD-EP I Creatinine Equation (2020) Laboratory - Chemistry and C hemistry - challengeOrdered By: Michael Meeks on 12-17-2024 AST [Catalytic activity/Vol] 28 U/L <38 [facility] Potassium measurement (mass/ volume)Ordered By: Michael Meeks on 12-17-2024 Potassium (Unsp spec) [Mass/Vol] 4.5 mmol/L 3.3-5.1 [facility] Serum creatinine measurement (mass/volume)Ordered By: Michael Meeks on 12-17-2024 Creatinine [Mass/Vol] 1.30 mg/dL High 0.70-1.20 [facility] Serum globulin measurementOr dered By: Michael Meeks on 12-17-2024 Globulin (S) [Mass/Vol] 2.7 g/dL 2.2-4.2 [facility] Serum glucose measurement (m ass/volume)Ordered By: Michael Meeks on 12-17-2024 Glucose [Mass/Vol] 98 mg/dL 70-99 [facility] Serum or plasma alanine meraz otransferase (ALT) measurementOrdered By: Michael Meeks on 12-17-2024 ALT [Catalytic activity/Vol] 18 U/L <47 [facility] Serum or plasma albumin ana urement (mass/volume)Ordered By: Michael Meeks on 12-17-2024 Albumin [Mass/Vol] 4.3 g/dL 3.4-4.8 [facility] Serum or plasma albumin/glob ulin mass ratioOrdered By: Michael Meeks on 12-17-2024 Albumin/Globulin [Mass ratio] 1.6 {ratio} 0.9-2.4 [facility] Serum or plasma alkaline keenan sphatase measurementOrdered By: Michael Meeks on 12-17-2024 ALP [Catalytic activity/Vol] 107 U/L 40-129 [facility] Serum or plasma calcium ana urement (mass/volume)Ordered By: Michael Meeks on 12-17-2024 Calcium [Mass/Vol] 9.8 mg/dL 7.6-11.0 [facility] Serum or plasma urea nitroge n measurement (mass/volume)Ordered By: Michael Meeks on 12-17-2024 Urea nitrogen [Mass/Vol] 34 mg/dL High 4-19 [facility] Sodium levelOrdered By: Ruslan Meeks on 12-17-2024 Sodium [Moles/Vol] 141 mmol/L 133-145 [facility] T4 freeOrdered By: Michael sanchez on 12-17-2024 Free T4 [Mass/Vol] 1.30 ng/dL 0.76-1.46 [facility] TSH DL <= 0.005 mIU/L QnOrde red By: Michael Meeks on 12-17-2024 TSH Qn 2.390 uIU/mL 0.300-4.200 [facility] Total proteinOrdered By: Amrik Meeks on 12-17-2024 Protein [Mass/Vol] 7.0 g/dL 5.9-8.4 [facility] Anion gap in Serum or Plasma Ordered By: Michael Meeks on 12-16-2024 Anion gap [Moles/Vol] 12 mmol/L 5-15 [facility] BUN/creatinine ratioOrdered By: Michael Meeks on 12-16-2024 Urea nitrogen/Creatinine [Mass ratio] 23.5 mg/mg High 10-20 [facility] Bilirubin, totalOrdered By: Michael Meeks on 12-16-2024 Bilirubin [Mass/Vol] 0.67 mg/dL 0.00-1.[address] [facility] Carbon dioxide, total [Moles /volume] in Central venous bloodOrdered By: Michael Meeks on 12-16-2024 CO2 [Moles/Vol] 21.8 mmol/L 21.0-32.0 [facility] Chloride assayOrdered By: Yfn Meeks on 12-16-2024 Chloride [Moles/Vol] 105 mmol/L 98-[address] [facility] Glomerular filtration rate ( GFR) estimation/1.73 sq m using serum, plasma, or whole bOrdered By: Michael Meeks on 12-16-2024 GFR/1.73 sq M.predicted among non-blacks MDRD (S/P/Bld) [Vol rate/Area] 55 mL/min/{1.73_m2} Low >60 [facility] Comment on above: mL/min/1.73m2 CKD-EP I Creatinine Equation (2020) Laboratory - Chemistry and C hemistry - challengeOrdered By: Michael Meeks on 12-16-2024 AST [Catalytic activity/Vol] 23 U/L <38 [facility] Potassium measurement (mass/ volume)Ordered By: Michael Meeks on 12-16-2024 Potassium (Unsp spec) [Mass/Vol] 4.6 mmol/L 3.3-5.1 [facility] Serum creatinine measurement (mass/volume)Ordered By: Michael Meeks on 12-16-2024 Creatinine [Mass/Vol] 1.25 mg/dL High 0.70-1.20 [facility] Serum globulin measurementOr dered By: Michael Meeks on 12-16-2024 Globulin (S) [Mass/Vol] 2.6 g/dL 2.2-4.2 [facility] Serum glucose measurement (m ass/volume)Ordered By: Michael Meeks on 12-16-2024 Glucose [Mass/Vol] 124 mg/dL High 70-99 [facility] Serum or plasma alanine meraz otransferase (ALT) measurementOrdered By: Michael Meeks on 12-16-2024 ALT [Catalytic activity/Vol] 12 U/L <47 [facility] Serum or plasma albumin ana urement (mass/volume)Ordered By: Michael Meeks on 12-16-2024 Albumin [Mass/Vol] 4.3 g/dL 3.4-4.8 [facility] Serum or plasma albumin/glob ulin mass ratioOrdered By: Michael Meeks on 12-16-2024 Albumin/Globulin [Mass ratio] 1.6 {ratio} 0.9-2.4 [facility] Serum or plasma alkaline keenan sphatase measurementOrdered By: Michael Meeks on 12-16-2024 ALP [Catalytic activity/Vol] 99 U/L 40-129 [facility] Serum or plasma calcium ana urement (mass/volume)Ordered By: Michael Meeks on 12-16-2024 Calcium [Mass/Vol] 9.7 mg/dL 7.6-11.0 [facility] Serum or plasma urea nitroge n measurement (mass/volume)Ordered By: Michael Meeks on 12-16-2024 Urea nitrogen [Mass/Vol] 29 mg/dL High 4-19 [facility] Sodium levelOrdered By: Ruslan Meeks on 12-16-2024 Sodium [Moles/Vol] 138 mmol/L 133-145 [facility] TSH DL <= 0.005 mIU/L QnOrde red By: Michael Meeks on 12-16-2024 TSH Qn 2.130 uIU/mL 0.300-4.200 [facility] ThyroxineOrdered By: Michael mccallum on 12-16-2024 T4 [Mass/Vol] 6.8 ug/dL 4.5-12.1 [facility] Total proteinOrdered By: Amrik Meeks on 12-16-2024 Protein [Mass/Vol] 6.9 g/dL 5.9-8.4 [facility] Bilirubin directOrdered By: Michael Meeks on 11-26-2024 Bilirubin.direct [Mass/Vol] 0.24 mg/dL 0.00-0.30 [facility] Bilirubin, totalOrdered By: Michael Meeks on 11-26-2024 Bilirubin [Mass/Vol] 0.67 mg/dL 0.00-1.[address] [facility] Laboratory - Chemistry and C hemistry - challengeOrdered By: Michael Meeks on 11-26-2024 AST [Catalytic activity/Vol] 21 U/L <38 [facility] Serum globulin measurementOr dered By: Michael Meeks on 11-26-2024 Globulin (S) [Mass/Vol] 3.0 g/dL 2.2-4.2 [facility] Serum or plasma alanine meraz otransferase (ALT) measurementOrdered By: Michael Meeks on 11-26-2024 ALT [Catalytic activity/Vol] 11 U/L <47 [facility] Serum or plasma albumin ana urement (mass/volume)Ordered By: Michael Meeks on 11-26-2024 Albumin [Mass/Vol] 4.3 g/dL 3.4-4.8 [facility] Serum or plasma alkaline keenan sphatase measurementOrdered By: Michael Meeks on 11-26-2024 ALP [Catalytic activity/Vol] 104 U/L 40-129 [facility] Total proteinOrdered By: Amrik Meeks on 11-26-2024 Protein [Mass/Vol] 7.2 g/dL 5.9-8.4 [facility] Anion gap in Serum or Plasma Ordered By: Michael Meeks on 11-24-2024 Anion gap [Moles/Vol] 10 mmol/L 5-15 [facility] BUN/creatinine ratioOrdered By: Michael Meeks on 11-24-2024 Urea nitrogen/Creatinine [Mass ratio] 20.8 mg/mg High 10-20 [facility] Carbon dioxide, total [Moles /volume] in Central venous bloodOrdered By: Michael Meeks on 11-24-2024 CO2 [Moles/Vol] 23.8 mmol/L 21.0-32.0 [facility] Chloride assayOrdered By: Yfn Meeks on 11-24-2024 Chloride [Moles/Vol] 102 mmol/L 98-[address] [facility] Glomerular filtration rate ( GFR) estimation/1.73 sq m using serum, plasma, or whole bOrdered By: Michael Meeks on 11-24-2024 GFR/1.73 sq M.predicted among non-blacks MDRD (S/P/Bld) [Vol rate/Area] 46 mL/min/{1.73_m2} Low >60 [facility] Comment on above: mL/min/1.73m2 CKD-EP I Creatinine Equation (2020) Potassium measurement (mass/ volume)Ordered By: Michael Meeks on 11-24-2024 Potassium (Unsp spec) [Mass/Vol] 4.9 mmol/L 3.3-5.1 [facility] Serum creatinine measurement (mass/volume)Ordered By: Michael Meeks on 11-24-2024 Creatinine [Mass/Vol] 1.47 mg/dL High 0.70-1.20 [facility] Serum glucose measurement (m ass/volume)Ordered By: Michael Meeks on 11-24-2024 Glucose [Mass/Vol] 142 mg/dL High 70-99 [facility] Serum or plasma calcium ana urement (mass/volume)Ordered By: Michael Meeks on 11-24-2024 Calcium [Mass/Vol] 9.8 mg/dL 7.6-11.0 [facility] Serum or plasma urea nitroge n measurement (mass/volume)Ordered By: Michael Meeks on 11-24-2024 Urea nitrogen [Mass/Vol] 31 mg/dL High 4-19 [facility] Sodium levelOrdered By: Ruslan Meeks on 11-24-2024 Sodium [Moles/Vol] 136 mmol/L 133-145 [facility] T4 freeOrdered By: Michael sanchez on 11-05-2024 Free T4 [Mass/Vol] 0.90 ng/dL 0.76-1.46 [facility] TSH DL <= 0.005 mIU/L QnOrde red By: Michael Meeks on 11-05-2024 Thyroid Stimulating Hormone (TSH) 6.920 uIU/mL High 0.300-4.200 [facility] TSH Qn 6.920 uIU/mL High 0.300-4.200 [facility] Anion gap in Serum or Plasma Ordered By: Michael Meeks on 10-27-2024 Anion gap [Moles/Vol] 10 mmol/L 5-15 [facility] BUN/creatinine ratioOrdered By: Michael Meeks on 10-27-2024 Urea nitrogen/Creatinine [Mass ratio] 17.0 mg/mg 10-20 [facility] Carbon dioxide, total [Moles /volume] in Central venous bloodOrdered By: Michael Meeks on 10-27-2024 CO2 [Moles/Vol] 23.9 mmol/L 21.0-32.0 [facility] Chloride assayOrdered By: Yfn Meeks on 10-27-2024 Chloride [Moles/Vol] 106 mmol/L 98-[address] [facility] GFR/1.73 sq M.predicted mehran g non-blacks MDRD (S/P/Bld) [Vol rate/Area]Ordered By: Michael Meeks on 10-27-2024 Estimated GFR (MDRD) Non-Af Amer 54 Low >60 [facility] Comment on above: mL/min/1.73m2 CKD-EP I Creatinine Equation (2020) Glomerular filtration rate ( GFR) estimation/1.73 sq m using serum, plasma, or whole bOrdered By: Michael Meeks on 10-27-2024 GFR/1.73 sq M.predicted among non-blacks MDRD (S/P/Bld) [Vol rate/Area] 54 mL/min/{1.73_m2} Low >60 [facility] Comment on above: mL/min/1.73m2 CKD-EP I Creatinine Equation (2020) Potassium (Unsp spec) [Mass/ Vol]Ordered By: Michael Meeks on 10-27-2024 Potassium [Moles/Vol] 4.6 mmol/L 3.3-5.1 [facility] Potassium measurement (mass/ volume)Ordered By: Michael Meeks on 10-27-2024 Potassium (Unsp spec) [Mass/Vol] 4.6 mmol/L 3.3-5.1 [facility] Serum creatinine measurement (mass/volume)Ordered By: Michael Meeks on 10-27-2024 Creatinine [Mass/Vol] 1.28 mg/dL High 0.70-1.20 [facility] Serum glucose measurement (m ass/volume)Ordered By: Michael Meeks on 10-27-2024 Glucose [Mass/Vol] 161 mg/dL High 70-99 [facility] Serum or plasma calcium ana urement (mass/volume)Ordered By: Michael Meeks on 10-27-2024 Calcium [Mass/Vol] 9.3 mg/dL 7.6-11.0 [facility] Serum or plasma urea nitroge n measurement (mass/volume)Ordered By: Michael Meeks on 10-27-2024 Urea nitrogen [Mass/Vol] 22 mg/dL High 4-19 [facility] Sodium levelOrdered By: Ruslan Meeks on 10-27-2024 Sodium [Moles/Vol] 140 mmol/L 133-145 [facility] Wound Ctr History AND Physic joe 10-09-2024 Wound Ctr History & Physical [facility] [address] [place] [address] H P Exam - Wound Care 10/09/24 1419 MR#: [id number] Acct: [id number] Name: GANESH FLORES Rep #: [id number] : 1935 88 From: Jaden Forman DPM [...] was seen by emergency room department at [facility] and evaluated and discharged. He states the wound has been present but does not know how long. He denies any trauma to the area. Denies constitutional symptoms. No other pedal complaints at this time. [facility] Medical History Agitation due to dementia Closed [...] Recorded Date Recorded By Document 10/08/24 11:57 PR [id number] 10/08/24 12:07 PR 10/08/24 11:57 WC - Today's Visit Information [...] Recorded Date Recorded By Document 10/08/24 11:57 PR [id number] 10/08/24 12:07 PR 10/08/24 11:57 Wound Center Nurse 1 Left Lateral Foot -Current Size (cm) - Length 1.4 -Current Size (cm) - Width 1.0 -Current Size (cm) - Depth 0.3 -Total Square Cm 1.40 -Date of Last Picture (Recall this / (more content not included)... Normal [facility] T4 freeOrdered By: Michael sanchez on 09-24-2024 Free T4 [Mass/Vol] 1.30 ng/dL 0.76-1.46 [facility] L499.0042on 09-23-2024 Trop T High Sen 77 ng/L Invalid Interpretation Code <=22 [facility] Comment on above: Result Comment: DIS BOY AMENDED REPORT 09/23/24431 Trop T HS 2HR previously reported as: 77 *H ng/L Performed By: #### L 499.0042 #### [facility] [address] [place], [address] L499.0043on 09-23-2024 Trop T High Sen 69 ng/L Invalid Interpretation Code <=22 [facility] Comment on above: Result Comment: DIS BOY AMENDED REPORT 09/23/24431 Trop T HS 4HR previously reported as: 69 *H ng/L Performed By: #### L 500.4050, L100.0100 #### [facility] [address] [place], [address] Calculated very low density lipoprotein (VLDL) cholesterol measurementOrdered By: Michael Meeks on 09-22-2024 Calculated very low density lipoprotein (VLDL) cholesterol measurement 26 mg/dL 5-40 [facility] VLDL Cholesterol 26 mg/dL 5-40 [facility] Hemoglobin A1c percentageOrd ered By: Michael Meeks on 09-22-2024 HbA1c (Bld) [Mass fraction] 6.1 % >5.7 [facility] LDL calc ser/plasOrdered By: Michael Meeks on 09-22-2024 Cholesterol in LDL [Mass/Vol] 144 mg/dL [facility] Comment on above: Mzdfzvchbm=419-576 m g/dL & Higher Igjf=472 mg/dL or greater LDL Cholesterol, Calculated 144 mg/dL [facility] Comment on above: Gijiralhrw=138-815 m g/dL & Higher Qrgg=092 mg/dL or greater Screening total cholesterol/ high density lipoprotein (HDL) cholesterol ratioOrdered By: Michael Meeks on 09-22-2024 Cholesterol.total/Choles terol in HDL [Mass ratio] 3.38 {ratio} [facility] Serum or plasma cholesterol in HDL measurement (mass/volume)Ordered By: Michael Meeks on 09-22-2024 Cholesterol in HDL [Mass/Vol] 72 mg/dL >40 [facility] Comment on above: National Cholesterol Education Program (NCEP) guidelines:<40 mg/dL: Low HDL-cholesterol (major risk factor for CHD)>= 60 mg/dL: High HDL-cholesterol (negative risk factor for CHD)HDL-cholesterol is affected by a number of factors, e.g. smoking, exercise, hormones, sex and age. Serum or plasma cholesterol measurement (mass/volume)Ordered By: Michael Meeks on 09-22-2024 Cholesterol [Mass/Vol] 242 mg/dL High <201 [facility] Comment on above: Cholesterol level, D esirable <200 mg/dLBorderline high cholesterol 200-239 mg/dLHigh cholesterol >=240 mg/dLRecommendations of the NCEP Adult Treatment Panel for the following risk-cutoff thresholds for the [place] population. TSH DL <= 0.005 mIU/L QnOrde red By: Michael Meeks on 09-22-2024 Thyroid Stimulating Hormone (TSH) 4.900 uIU/mL High 0.300-4.200 [facility] TSH Qn 4.900 uIU/mL High 0.300-4.200 [facility] Triglycerides measurementOrd ered By: Michael Meeks on 09-22-2024 Triglyceride [Mass/Vol] 131 mg/dL <199 [facility] Comment on above: The drugs N-Acetylcy steine and Metamizole may falsely depress this assay. Normal range: <150 mg/dLBorderline High: 150-199 mg/dLHigh: 200-499 mg/dLVery High: >500 mg/dL Discharge Instructionon 08-24 Discharge Instruction [facility] Medical Records Department [address] [place] [address] Instructions for Home/Discharge Instructions 09/19/24 1440 MR#: [id number] Acct: [id number] Name: GANESH FLORES Rep #: [id number] : 1935 88 From: Demetrius Nash DO [...] DO; Dr. Alberto Mustafa MD Signed Normal [facility] Phosphoruson 09-18-2024 Phosphate [Mass/Vol] 2.7 mg/dL Normal 2.7-4.[address] [facility] Comment on above: Performed By: #### L 501.2300 #### [facility] [address] [place], [address] Serum phosphorus measurement Ordered By: Altaf Mayfield on 09-18-2024 Phosphorus Level 2.7 mg/dL 2.7-4.5 [facility] 12 Lead EKGon 09-17-2024 12 Lead EKG [facility] Services [address] [place] [address] 12 Lead EKG 09/17/24 1120 MR#: [id number] Acct: [id number] Name: GANESH FLORES Rep #: [id number] : 1935 88 From: Roel Art MD [...] by 29 bpm Confirmed by Roel Art ([id number]), continuity editor MILES BROCK ([id number]) on 09/19/2024 5:59:25 AM Referred By: TOMY Confirmed By: Roel Art 09/19/24 0559 Date Roel Art MD CC: Dr. Altaf Meeks DO; Dr. Alberto Mustafa MD; Dr. Demetrius Nash DO Signed Normal [facility] Absolute lymphocyte countOrd ered By: Altaf Mayfield on 09-17-2024 Lymphocytes Auto (Unsp spec) [#/Vol] 0.66 10*3/uL Low 0.83-4.51 [facility] Absolute neutrophil countOrd ered By: Altaf Mayfield on 09-17-2024 Neutrophils (Bld) [#/Vol] 2.3 10*3/uL 2.0-7.7 [facility] Automated lymphocyte count a s percentage of total leukocytesOrdered By: Altaf Mayfield on 09-17-2024 Lymphocytes/100 WBC Auto (Unsp spec) 18.4 % Low 19-41 [facility] BUN/creatinine ratioOrdered By: Altaf Mayfield on 09-17-2024 Urea nitrogen/Creatinine [Mass ratio] 11.6 mg/mg 10-20 [facility] Basophil percentageOrdered B y: Altaf Mayfield on 09-17-2024 Basophils/100 WBC (Bld) 1.4 % High 0-1 [facility] Bilirubin, totalOrdered By: Altaf Mayfield on 09-17-2024 Bilirubin [Mass/Vol] 0.66 mg/dL 0.00-1.[address] [facility] CBC W/Diff, Automatedon 02-2 Absolute Lymph 0.66 X10 3/uL Low 0.83-4.51 [facility] Comment on above: Performed By: #### L 501.2300, L100.0100, L500.4050, L500.4100 #### [facility] [address] [place], [address] Absolute Neut 2.3 X10 3/uL Normal 2.0-7.7 [facility] Comment on above: Performed By: #### L 501.2300, L100.0100, L500.4050, L500.4100 #### [facility] [address] [place], [address] Basophils/100 WBC (Bld) 1.4 % High 0-1 [facility] Comment on above: Performed By: #### L 501.2300, L100.0100, L500.4050, L500.4100 #### [facility] [address] [place], [address] Eosinophils/100 WBC (Bld) 3.1 % Normal 0-5 [facility] Comment on above: Performed By: #### L 501.2300, L100.0100, L500.4050, L500.4100 #### [facility] [address] [place], [address] Erythrocyte distribution width (RBC) [Ratio] 13.4 % Normal 11.6-14.6 [facility] Comment on above: Performed By: #### L 501.2300, L100.0100, L500.4050, L500.4100 #### [facility] [address] [place], [address] Hematocrit (Bld) [Volume fraction] 43.4 % Normal 40-54 [facility] Comment on above: Performed By: #### L 501.2300, L100.0100, L500.4050, L500.4100 #### [facility] [address] [place], [address] Hemoglobin (Bld) [Mass/Vol] 14.3 g/dL Normal 13.0-16.5 [facility] Comment on above: Performed By: #### L 501.2300, L100.0100, L500.4050, L500.4100 #### [facility] [address] [place], [address] IG% 0.800 Normal 0.0-0.9 [facility] Comment on above: Result Comment: IG% - Immature Granulocytes (promyelocytes, myelocytes and metamyelocytes) > 1% indicates that a LEFT SHIFT is Present. Performed By: #### L 501.2300, L100.0100, L500.4050, L500.4100 #### [facility] [address] [place], [address] Lymphocytes/100 WBC (Bld) 18.4 % Low 19-41 [facility] Comment on above: Performed By: #### L 501.2300, L100.0100, L500.4050, L500.4100 #### [facility] [address] [place], [address] MCH (RBC) [Entitic mass] 30.9 pg Normal 27.0-32.0 [facility] Comment on above: Performed By: #### L 501.2300, L100.0100, L500.4050, L500.4100 #### [facility] [address] [place], [address] MCHC (RBC) [Mass/Vol] 32.9 g/dL Normal 32-36 [facility] Comment on above: Performed By: #### L 501.2300, L100.0100, L500.4050, L500.4100 #### [facility] [address] [place], [address] MCV (RBC) [Entitic vol] 93.7 fL Normal 80-94 [facility] Comment on above: Performed By: #### L 501.2300, L100.0100, L500.4050, L500.4100 #### [facility] [address] [place], [address] Monocytes/100 WBC (Bld) 12.3 % High 0-10 [facility] Comment on above: Performed By: #### L 501.2300, L100.0100, L500.4050, L500.4100 #### [facility] [address] [place], [address] Neutrophils/100 WBC (Bld) 64.0 % Normal 47-70 [facility] Comment on above: Performed By: #### L 501.2300, L100.0100, L500.4050, L500.4100 #### [facility] [address] [place], [address] Nucleated RBC (Bld) [#/Vol] 0 10*3/uL Normal 0-5 [facility] Comment on above: Performed By: #### L 501.2300, L100.0100, L500.4050, L500.4100 #### [facility] [address] [place], [address] Platelet mean volume (Bld) [Entitic vol] 10.3 fL Normal 6.2-12.0 [facility] Comment on above: Performed By: #### L 501.2300, L100.0100, L500.4050, L500.4100 #### [facility] [address] [place], [address] Platelets (Bld) [#/Vol] 140 10*3/uL Low 150-450 [facility] Comment on above: Performed By: #### L 501.2300, L100.0100, L500.4050, L500.4100 #### [facility] [address] [place], [address] RBC (Bld) [#/Vol] 4.63 10*6/uL Normal 4.6-6.2 [facility] Comment on above: Performed By: #### L 501.2300, L100.0100, L500.4050, L500.4100 #### [facility] [address] [place], [address] RDW SD 45.7 fl High 35.1-43.9 [facility] Comment on above: Performed By: #### L 501.2300, L100.0100, L500.4050, L500.4100 #### [facility] [address] [place], [address] WBC (Bld) [#/Vol] 3.6 10*3/uL Low 4.4-11.0 [facility] Comment on above: Performed By: #### L 501.2300, L100.0100, L500.4050, L500.4100 #### [facility] [address] [place], [address] Calculated very low density lipoprotein (VLDL) cholesterol measurementOrdered By: Altaf Mayfield on 09-17-2024 Calculated very low density lipoprotein (VLDL) cholesterol measurement 15 mg/dL 5-40 [facility] VLDL Cholesterol 15 mg/dL -40 [facility] Carbon dioxide measurementOr dered By: Altaf Mayfield on 09-17-2024 CO2 [Moles/Vol] 24.2 mmol/L 22.0-29.0 [facility] Chloride measurementOrdered By: Altaf Mayfield on 09-17-2024 Chloride [Moles/Vol] 102 mmol/L 96-[address] [facility] Comprehensive Metabolic Prof ilon 09-17-2024 Albumin [Mass/Vol] 3.7 g/dL Normal 3.4-4.8 [facility] Comment on above: Performed By: #### L 501.2300, L100.0100, L500.4050, L500.4100 #### [facility] [address] [place], [address] Albumin/Globulin [Mass ratio] 1.5 {ratio} Normal 0.9-2.4 [facility] Comment on above: Performed By: #### L 501.2300, L100.0100, L500.4050, L500.4100 #### [facility] [address] [place], [address] ALK PHOS 95 U/L Normal 40-129 [facility] Comment on above: Performed By: #### L 501.2300, L100.0100, L500.4050, L500.4100 #### [facility] [address] [place], [address] ALT [Catalytic activity/Vol] 11 U/L Normal <=46 [facility] Comment on above: Performed By: #### L 501.2300, L100.0100, L500.4050, L500.4100 #### [facility] [address] [place], [address] Anion gap [Moles/Vol] 12 mmol/L Normal 5-15 [facility] Comment on above: Performed By: #### L 501.2300, L100.0100, L500.4050, L500.4100 #### [facility] [address] [place], [address] AST [Catalytic activity/Vol] 25 U/L Normal <=37 [facility] Comment on above: Performed By: #### L 501.2300, L100.0100, L500.4050, L500.4100 #### [facility] [address] [place], [address] Bilirubin [Mass/Vol] 0.66 mg/dL Normal 0.00-1.[address] [facility] Comment on above: Performed By: #### L 501.2300, L100.0100, L500.4050, L500.4100 #### [facility] [address] [place], [address] BUN/CRE 11.6 RATIO Normal 10-20 [facility] Comment on above: Performed By: #### L 501.2300, L100.0100, L500.4050, L500.4100 #### [facility] [address] [place], [address] Calcium [Mass/Vol] 9.5 mg/dL Normal 7.6-11.0 [facility] Comment on above: Performed By: #### L 501.2300, L100.0100, L500.4050, L500.4100 #### [facility] [address] [place], [address] Chloride [Moles/Vol] 102 mmol/L Normal 96-[address] [facility] Comment on above: Performed By: #### L 501.2300, L100.0100, L500.4050, L500.4100 #### [facility] [address] [place], [address] CO2 [Moles/Vol] 24.2 mmol/L Normal 22.0-29.0 [facility] Comment on above: Performed By: #### L 501.2300, L100.0100, L500.4050, L500.4100 #### [facility] [address] [place], [address] Creatinine [Mass/Vol] 1.3 mg/dL Normal 0.8-1.3 [facility] Comment on above: Performed By: #### L 501.2300, L100.0100, L500.4050, L500.4100 #### [facility] [address] [place], [address] ECRCL 47.85 ml/min Normal [facility] Comment on above: Performed By: #### L 501.2300, L100.0100, L500.4050, L500.4100 #### [facility] [address] [place], [address] GFR/1.73 sq M.predicted among non-blacks MDRD (S/P/Bld) [Vol rate/Area] 54 mL/min/{1.73_m2} Low >60 [facility] Comment on above: Result Comment: mL/m in/1.73m2 CKD-EPI Creatinine Equation (2020) Performed By: #### L 501.2300, L100.0100, L500.4050, L500.4100 #### [facility] [address] [place], [address] Globulin (S) [Mass/Vol] 2.4 g/dL Normal 2.2-4.2 [facility] Comment on above: Performed By: #### L 501.2300, L100.0100, L500.4050, L500.4100 #### [facility] [address] [place], [address] Glucose [Mass/Vol] 93 mg/dL Normal 70-99 [facility] Comment on above: Performed By: #### L 501.2300, L100.0100, L500.4050, L500.4100 #### [facility] [address] [place], [address] Potassium [Moles/Vol] 4.1 mmol/L Normal 3.3-5.1 [facility] Comment on above: Performed By: #### L 501.2300, L100.0100, L500.4050, L500.4100 #### [facility] [address] [place], [address] Sodium [Moles/Vol] 138 mmol/L Normal 133-145 [facility] Comment on above: Performed By: #### L 501.2300, L100.0100, L500.4050, L500.4100 #### [facility] [address] [place], [address] T PROT 6.1 g/dL Normal 5.9-8.4 [facility] Comment on above: Performed By: #### L 501.2300, L100.0100, L500.4050, L500.4100 #### [facility] [address] [place], [address] Urea nitrogen [Mass/Vol] 15 mg/dL Normal 4-19 [facility] Comment on above: Performed By: #### L 501.2300, L100.0100, L500.4050, L500.4100 #### [facility] [address] [place], [address] Albumin [Mass/Vol] 4.3 g/dL Normal 3.4-4.8 [facility] Comment on above: Performed By: #### L 506.0400 #### [facility] [address] [place], [address] Albumin/Globulin [Mass ratio] 1.4 {ratio} Normal 0.9-2.4 [facility] Comment on above: Performed By: #### L 506.0400 #### [facility] [address] [place], [address] ALK PHOS 113 U/L Normal 40-129 [facility] Comment on above: Performed By: #### L 506.0400 #### [facility] [address] [place], [address] ALT [Catalytic activity/Vol] 15 U/L Normal <=46 [facility] Comment on above: Performed By: #### L 506.0400 #### [facility] [address] [place], [address] Anion gap [Moles/Vol] 15 mmol/L Normal 5-15 [facility] Comment on above: Performed By: #### L 506.0400 #### [facility] [address] [place], [address] AST [Catalytic activity/Vol] 31 U/L Normal <=37 [facility] Comment on above: Performed By: #### L 506.0400 #### [facility] [address] [place], [address] Bilirubin [Mass/Vol] 0.79 mg/dL Normal 0.00-1.[address] [facility] Comment on above: Performed By: #### L 506.0400 #### [facility] [address] [place], [address] BUN/CRE 10.9 RATIO Normal 10-20 [facility] Comment on above: Performed By: #### L 506.0400 #### [facility] [address] [place], [address] Calcium [Mass/Vol] 10.3 mg/dL Normal 7.6-11.0 [facility] Comment on above: Performed By: #### L 506.0400 #### [facility] [address] [place], [address] Chloride [Moles/Vol] 97 mmol/L Normal 96-[address] [facility] Comment on above: Performed By: #### L 506.0400 #### [facility] [address] [place], [address] CO2 [Moles/Vol] 24.0 mmol/L Normal 22.0-29.0 [facility] Comment on above: Performed By: #### L 506.0400 #### [facility] [address] [place], [address] Creatinine [Mass/Vol] 1.4 mg/dL High 0.8-1.3 [facility] Comment on above: Performed By: #### L 506.0400 #### [facility] [address] [place], [address] GFR/1.73 sq M.predicted among non-blacks MDRD (S/P/Bld) [Vol rate/Area] 48 mL/min/{1.73_m2} Low >60 [facility] Comment on above: Result Comment: mL/m in/1.73m2 CKD-EPI Creatinine Equation (2020) Performed By: #### L 506.0400 #### [facility] [address] [place], [address] Globulin (S) [Mass/Vol] 3.2 g/dL Normal 2.2-4.2 [facility] Comment on above: Performed By: #### L 506.0400 #### [facility] [address] [place], [address] Glucose [Mass/Vol] 124 mg/dL High 70-99 [facility] Comment on above: Performed By: #### L 506.0400 #### [facility] [address] [place], [address] Potassium [Moles/Vol] 4.4 mmol/L Normal 3.3-5.1 [facility] Comment on above: Performed By: #### L 506.0400 #### [facility] [address] [place], [address] Sodium [Moles/Vol] 136 mmol/L Normal 133-145 [facility] Comment on above: Performed By: #### L 506.0400 #### [facility] [address] [place], [address] T PROT 7.5 g/dL Normal 5.9-8.4 [facility] Comment on above: Performed By: #### L 506.0400 #### [facility] [address] [place], [address] Urea nitrogen [Mass/Vol] 16 mg/dL Normal 4-19 [facility] Comment on above: Performed By: #### L 506.0400 #### [facility] [address] [place], [address] Echo Completeon 09-17-2024 Echo Complete [facility] [address] [place] [address] Echo Complete 09/17/24 0959 MR#: [id number] Acct: [id number] Name: GANESH FLORES Rep #: [id number] : 1935 88 From: Kamari Lockhart MD [...] Date Dictated: 09/17/2459 Date Transcribed: 09/17/24 1130 Fur Weigher: Signed Normal [facility] Eosinophil percentageOrdered By: Altaf Mayfield on 09-17-2024 Eosinophils/100 WBC (Bld) 3.1 % 0-5 [facility] Erythrocyte distribution wid th ratioOrdered By: Altaf Mayfield on 09-17-2024 Erythrocyte distribution width (RBC) [Ratio] 13.4 % 11.6-14.6 [facility] Erythrocyte distribution wid th standard deviationOrdered By: Altaf Mayfield on 09-17-2024 Erythrocyte distribution width (RBC) [Entitic vol] 45.7 fL High 35.1-43.9 [facility] Erythrocyte distribution width (RBC) [Ratio] 45.7 fl High 35.1-43.9 [facility] Estimation of creatinine ijeoma aranceOrdered By: Altaf Mayfield on 09-17-2024 Estimated Creatinine Clearance Calc 47.85 ml/min 50-250 [facility] Folates, (Folic Acid)on 08-24 FOLATES 8.53 ng/mL Normal 4.60-34.80 [facility] Comment on above: Order Comment: Has P atient had X-rays with Contrast this admission? NN Performed By: #### L 500.4050, L100.0100 #### [facility] [address] [place], [address] GFR/1.73 sq M.predicted mehran g non-blacks MDRD (S/P/Bld) [Vol rate/Area]Ordered By: Altaf Mayfield on 09-17-2024 Estimated GFR (MDRD) Non-Af Amer 54 Low >60 [facility] Comment on above: mL/min/1.73m2 CKD-EP I Creatinine Equation (2020) Glomerular filtration rate ( GFR) estimation/1.73 sq m using serum, plasma, or whole bOrdered By: Altaf Mayfield on 09-17-2024 GFR/1.73 sq M.predicted among non-blacks MDRD (S/P/Bld) [Vol rate/Area] 54 mL/min/{1.73_m2} Low >60 [facility] Comment on above: mL/min/1.73m2 CKD-EP I Creatinine Equation (2020) Hematocrit Auto (Bld) [Volum e fraction]Ordered By: Altaf Mayfield on 09-17-2024 Hematocrit (Bld) [Volume fraction] 43.4 % 40-54 [facility] Hemoglobin A1con 09-17-2024 HbA1c (Bld) [Mass fraction] 6.1 % Normal <=5.6 [facility] Comment on above: Performed By: #### L 500.4050, L100.0100 #### [facility] [address] [facility] [place], [place], [address] Hemoglobin measurementOrdere d By: Altaf Mayfield on 09-17-2024 Hemoglobin (Bld) [Mass/Vol] 14.3 g/dL 13.0-16.5 [facility] Immature granulocytes/100 WB C Auto (Bld)Ordered By: Altaf Mayfield on 09-17-2024 Immature granulocytes/100 WBC (Bld) 0.800 % 0.0-0.9 [facility] Comment on above: IG% - Immature Granu locytes (promyelocytes, myelocytes and metamyelocytes) > 1% indicates that a LEFT SHIFT is Present. L501.4021on 09-17-2024 Trop T High Sen 76 ng/L Invalid Interpretation Code <=22 [facility] Comment on above: Order Comment: Has P atient had X-rays with Contrast this admission? N Result Comment: Crit ical Result(s) Called at: by:??Results read back by same. CALLED TO Ramandeep TOMLIN AT 0055 Performed By: #### L 500.4050, L100.0100 #### [facility] [address] [place], [address] LDL calc ser/plasOrdered By: Altaf Mayfield on 09-17-2024 Cholesterol in LDL [Mass/Vol] 134 mg/dL [facility] Comment on above: Sjueoygkpp=136-661 m g/dL & Higher Fcqe=708 mg/dL or greater LDL Cholesterol, Calculated 134 mg/dL [facility] Comment on above: Aeimtoklnv=945-577 m g/dL & Higher Lahw=674 mg/dL or greater Laboratory - Chemistry and C hemistry - challengeOrdered By: Altaf Mayfield on 09-17-2024 AST [Catalytic activity/Vol] 25 U/L <38 [facility] Lipid Profileon 09-17-2024 CHOL:HDL 3.24 Normal [facility] Comment on above: Performed By: #### L 501.2300, L100.0100, L500.4050, L500.4100 #### [facility] [address] [place], [address] Cholesterol [Mass/Vol] 215 mg/dL High <=200 [facility] Comment on above: Result Comment: Chol esterol level, Desirable <200 mg/dL Borderline high cholesterol 200-239 mg/dL High cholesterol >=240 mg/dL Recommendations of the NCEP Adult Treatment Panel for the following risk-cutoff thresholds for the [place] population. Performed By: #### L 501.2300, L100.0100, L500.4050, L500.4100 #### [facility] [address] [place], [address] Cholesterol in HDL [Mass/Vol] 66 mg/dL Normal [facility] Comment on above: Result Comment: Liz onal Cholesterol Education Program (NCEP) guidelines: <40 mg/dL: Low HDL-cholesterol (major risk factor for CHD) >= 60 mg/dL: High HDL-cholesterol (negative risk factor for CHD) HDL-cholesterol is affected by a number of factors, e.g. smoking, exercise, hormones, sex and age. Performed By: #### L 501.2300, L100.0100, L500.4050, L500.4100 #### [facility] [address] [place], [address] Cholesterol in LDL [Mass/Vol] 134 mg/dL Normal [facility] Comment on above: Result Comment: Bord gmxxck=295-519 mg/dL Higher Qhyb=973 mg/dL or greater Performed By: #### L 501.2300, L100.0100, L500.4050, L500.4100 #### [facility] [address] [place], [address] Cholesterol in VLDL [Mass/Vol] 15 mg/dL Normal 5-40 [facility] Comment on above: Performed By: #### L 501.2300, L100.0100, L500.4050, L500.4100 #### [facility] [address], [address] Triglyceride [Mass/Vol] 76 mg/dL Normal [facility] Comment on above: Result Comment: The drugs N-Acetylcysteine and Metamizole may falsely depress this assay. Normal range: <150 mg/dL Borderline High: 150-199 mg/dL High: 200-499 mg/dL Very High: >500 mg/dL Performed By: #### L 501.2300, L100.0100, L500.4050, L500.4100 #### [facility] [address], [address] Lymphocytes Auto (Unsp spec) [#/Vol]Ordered By: Altfa Mayfield on 09-17-2024 Lymphocytes (Bld) [#/Vol] 0.66 10*3/uL Low 0.83-4.51 [facility] Lymphocytes/100 WBC Auto (Un sp spec)Ordered By: Altaf Mayfield on 09-17-2024 Lymphocytes/100 WBC (Bld) 18.4 % Low 19-41 [facility] MCV (mean corpuscular volume ) determinationOrdered By: Altaf Mayfield on 09-17-2024 MCV (RBC) [Entitic vol] 93.7 fL 80-94 [facility] Magnesiumon 09-17-2024 Magnesium [Mass/Vol] 2.2 mg/dL Normal 1.5-2.[address] [facility] Comment on above: Order Comment: Has P atient had X-rays with Contrast this admission? N Performed By: #### L 500.4050, L100.0100 #### [facility] [address] [place], [place], [address] Mean corpuscular hemoglobin (MCH) determinationOrdered By: Altaf Mayfield on 09-17-2024 MCH (RBC) [Entitic mass] 30.9 pg 27.0-32.0 [facility] Mean corpuscular hemoglobin concentration (MCHC) determinationOrdered By: Altaf Mayfield on 09-17-2024 MCHC (RBC) [Mass/Vol] 32.9 g/dL 32-36 [facility] Mean platelet volume determi nationOrdered By: Altaf Mayfield on 09-17-2024 Platelet mean volume (Bld) [Entitic vol] 10.3 fL 6.2-12.0 [facility] Monocyte percentageOrdered B y: Altaf Mayfield on 09-17-2024 Monocytes/100 WBC (Bld) 12.3 % High 0-10 [facility] Neutrophil percentageOrdered By: Altaf Mayfield on 09-17-2024 Neutrophils/100 WBC (Bld) 64.0 % 47-70 [facility] No Panel InformationOrdered By: Altaf Mayfield on 09-17-2024 Delta Troponin T 1 [facility] Comment on above: Potential recent TN, CKD,LVH* Consider a third Troponin for Suspected ACSIf clinical suspicion for ACS is high, suggest getting a third troponin. Otherwise, stress test or CTCA. Nucleated red blood cell per centageOrdered By: Altaf Mayfield on 09-17-2024 Nucleated RBC/100 WBC (Bld) [Ratio] 0 % 0-5 [facility] Phosphoruson 09-17-2024 Phosphate [Mass/Vol] 2.9 mg/dL Normal 2.7-4.[address] [facility] Comment on above: Performed By: #### L 501.2300, L100.0100, L500.4050, L500.4100 #### [facility] [address] [place], [address] Platelet countOrdered By: David Mayfield on 09-17-2024 Platelets (Bld) [#/Vol] 140 10*3/uL Low 150-450 [facility] RBC Auto (Bld) [#/Vol]Ordere d By: Altaf Mayfield on 09-17-2024 RBC (Bld) [#/Vol] 4.63 10*6/uL 4.6-6.2 [facility] Screening total cholesterol/ high density lipoprotein (HDL) cholesterol ratioOrdered By: Altaf Mayfield on 09-17-2024 Cholesterol.total/Choles terol in HDL [Mass ratio] 3.24 {ratio} [facility] Serum creatinine measurement (mass/volume)Ordered By: Altaf Mayfield on 09-17-2024 Creatinine [Mass/Vol] 1.3 mg/dL 0.70-1.20 [facility] Serum globulin measurementOr dered By: Altaf Mayfield on 09-17-2024 Globulin (S) [Mass/Vol] 2.4 g/dL 2.2-4.2 [facility] Serum glucose measurement (m ass/volume)Ordered By: Altaf Mayfield on 09-17-2024 Glucose [Mass/Vol] 93 mg/dL 70-99 [facility] Serum or plasma alanine meraz otransferase (ALT) measurementOrdered By: Altaf Mayfield on 09-17-2024 ALT [Catalytic activity/Vol] 11 U/L <47 [facility] Serum or plasma albumin ana urement (mass/volume)Ordered By: Altaf Mayfield on 09-17-2024 Albumin [Mass/Vol] 3.7 g/dL 3.4-4.8 [facility] Serum or plasma albumin/glob ulin mass ratioOrdered By: Altaf Mayfield on 09-17-2024 Albumin/Globulin [Mass ratio] 1.5 {ratio} 0.9-2.4 [facility] Serum or plasma alkaline keenan sphatase measurementOrdered By: Altaf Mayfield on 09-17-2024 ALP [Catalytic activity/Vol] 95 U/L 40-129 [facility] Serum or plasma anion gap de termination (moles/volume)Ordered By: Altaf Mayfield on 09-17-2024 Anion gap [Moles/Vol] 12 mmol/L 5-15 [facility] Serum or plasma calcium ana urement (mass/volume)Ordered By: Altaf Mayfield on 09-17-2024 Calcium [Mass/Vol] 9.5 mg/dL 7.6-11.0 [facility] Serum or plasma cholesterol in HDL measurement (mass/volume)Ordered By: Altaf Mayfield on 09-17-2024 Cholesterol in HDL [Mass/Vol] 66 mg/dL >40 [facility] Comment on above: National Cholesterol Education Program (NCEP) guidelines:<40 mg/dL: Low HDL-cholesterol (major risk factor for CHD)>= 60 mg/dL: High HDL-cholesterol (negative risk factor for CHD)HDL-cholesterol is affected by a number of factors, e.g. smoking, exercise, hormones, sex and age. Serum or plasma cholesterol measurement (mass/volume)Ordered By: Altaf Mayfield on 09-17-2024 Cholesterol [Mass/Vol] 215 mg/dL High <201 [facility] Comment on above: Cholesterol level, D esirable <200 mg/dLBorderline high cholesterol 200-239 mg/dLHigh cholesterol >=240 mg/dLRecommendations of the NCEP Adult Treatment Panel for the following risk-cutoff thresholds for the [place] population. Serum or plasma potassium me asurementOrdered By: Altaf Mayfield on 09-17-2024 Potassium [Moles/Vol] 4.1 mmol/L 3.3-5.1 [facility] Serum or plasma sodium measu rement (moles/volume)Ordered By: Altaf Mayfield on 09-17-2024 Sodium [Moles/Vol] 138 mmol/L 133-145 [facility] Serum or plasma urea nitroge n measurement (mass/volume)Ordered By: Altaf Mayfield on 09-17-2024 Urea nitrogen [Mass/Vol] 15 mg/dL 4-19 [facility] T4 Free Directon 09-17-2024 T4 FREE DIRECT 1.40 ng/dL Normal 0.76-1.46 [facility] Comment on above: Performed By: #### L 506.0400 #### [facility] [address] [place], [address] Thyroid Stim Hormone (TSH)on 09-17-2024 TSH 2.780 uIU/mL Normal 0.300-4.200 [facility] Comment on above: Performed By: #### L 506.0400 #### [facility] [address] [place], [place], [address] TSH 3.100 uIU/mL Normal 0.300-4.200 [facility] Comment on above: Order Comment: Has P atient had X-rays with Contrast this admission? N Performed By: #### L 500.4050, L100.0100 #### [facility] [address] [place], [address] Total proteinOrdered By: Rahat Mayfield on 09-17-2024 Protein [Mass/Vol] 6.1 g/dL 5.9-8.4 [facility] Triglycerides measurementOrd ered By: Altaf Mayfield on 09-17-2024 Triglyceride [Mass/Vol] 76 mg/dL <199 [facility] Comment on above: The drugs N-Acetylcy steine and Metamizole may falsely depress this assay. Normal range: <150 mg/dLBorderline High: 150-199 mg/dLHigh: 200-499 mg/dLVery High: >500 mg/dL Troponin T.cardiac High sens itivity method [Mass/Vol]Ordered By: Altaf Mayfield on 09-17-2024 Troponin T High Sensitivity 4 Hour 69 ng/L High <22 [facility] Comment on above: DIS INOPrevious repo rted result: 69 ng/LEdited by: AUTOINS on 09/23/24:0432 AMENDED REPORT 09/23/24 0432 Trop T HS 4HR previously reported as: 69 *H ng/L Troponin T High Sensitivity 2 Hour 77 ng/L High <22 [facility] Comment on above: DIS INOPrevious repo rted result: 77 ng/LEdited by: AUTOINS on 09/23/24:0432 AMENDED REPORT 09/23/24 0432 Trop T HS 2HR previously reported as: 77 *H ng/L Troponin T.cardiac [Mass/vol ume] in Serum or Plasma by High sensitivity methodOrdered By: Altaf Mayfield on 09-17-2024 Troponin T.cardiac High sensitivity method [Mass/Vol] 69 ng/L High <22 [facility] Comment on above: DIS INOPrevious repo rted result: 69 ng/LEdited by: AUTOINS on 09/23/24:0432 AMENDED REPORT 09/23/242 Trop T HS 4HR previously reported as: 69 *H ng/L Troponin T.cardiac High sensitivity method [Mass/Vol] 77 ng/L High <22 [facility] Comment on above: DIS INOPrevious repo rted result: 77 ng/LEdited by: AUTOINS on 09/23/24:0432 AMENDED REPORT 09/23/24431 Trop T HS 2HR previously reported as: 77 *H ng/L White blood cell (WBC) count Ordered By: Altaf Mayfield on 09-17-2024 WBC (Bld) [#/Vol] 3.6 10*3/uL Low 4.4-11.0 [facility] 12 Lead EKGon 09-16-2024 12 Lead EKG [facility] Cardi[facility] Services [address] [place] [address] 12 Lead EKG 09/16/24 1300 MR#: [id number] Acct: [id number] Name: GANESH FLORES Rep #: [id number] : 1935 88 From: Roel Art MD [...] rhythm Normal ECG Confirmed by Roel Art ([id number]), continuity editor TARA CARDONA ([id number]) on 09/17/2024 8:23:13 AM Referred By: Confirmed By: Roel Art 09/17/24 0823 Date Roel Art MD CC: Dr. Alberto Mustafa MD; Dr. Demetrius Nash DO; Dr. Maliha Youngblood DO Signed Normal [facility] Absolute lymphocyte countOrd ered By: Alberto Mustafa on 09-16-2024 Lymphocytes Auto (Unsp spec) [#/Vol] 0.72 10*3/uL Low 0.83-4.51 [facility] Absolute neutrophil countOrd ered By: Alberto Mustafa on 09-16-2024 Neutrophils (Bld) [#/Vol] 3.9 10*3/uL 2.0-7.7 [facility] Automated lymphocyte count a s percentage of total leukocytesOrdered By: Alberto Mustafa on 09-16-2024 Lymphocytes/100 WBC Auto (Unsp spec) 13.9 % Low 19-41 [facility] BUN/creatinine ratioOrdered By: Alberto Mustafa on 09-16-2024 Urea nitrogen/Creatinine [Mass ratio] 10.9 mg/mg 10-20 [facility] Basophil percentageOrdered B y: Alberto Mustafa on 09-16-2024 Basophils/100 WBC (Bld) 0.8 % 0-1 [facility] Bilirubin Test strip Ql (U)O rdered By: Maliha Youngblood on 09-16-2024 Bilirubin Ql (U) Negative Negative [facility] Bilirubin, totalOrdered By: Alberto Mustafa on 09-16-2024 Bilirubin [Mass/Vol] 0.79 mg/dL 0.00-1.[address] [facility] Brain/Head without Contrasto n 09-16-2024 Brain/Head without Contrast [facility] Imaging Services [address] [place], [place] [id number] Brain/Head without Contrast MR#: [id number] Acct: [id number] Name: GANESH FLORES Rep #: [id number] : 1935 M 88 From: Booker Leblanc MD PCP: Dr. Alberto Mustafa MD Status: [facility] Study: Brain/Head without Contrast Date of Exam: 08/24 12/14 Exam# [id number] Ordering Dr: Fiona Quintero TECHNIQUE: Contiguous axial [...] infarcts. 3. Age-appropriate senescent change. Reading Location: [facility] CC: Dr. Alberto Mustafa MD; CRYSTAL Solorzano Fur Weigher: Signed Normal [facility] CBC W/Diff, Automatedon 08-24 Absolute Lymph 0.72 X10 3/uL Low 0.83-4.51 [facility] Comment on above: Performed By: #### L 506.0400 #### [facility] [address] [place], [address] Absolute Neut 3.9 X10 3/uL Normal 2.0-7.7 [facility] Comment on above: Performed By: #### L 506.0400 #### [facility] [address] [place], [address] Basophils/100 WBC (Bld) 0.8 % Normal 0-1 [facility] Comment on above: Performed By: #### L 506.0400 #### [facility] [address] [place], [address] Eosinophils/100 WBC (Bld) 1.2 % Normal 0-5 [facility] Comment on above: Performed By: #### L 506.0400 #### [facility] [address] [place], [address] Erythrocyte distribution width (RBC) [Ratio] 13.2 % Normal 11.6-14.6 [facility] Comment on above: Performed By: #### L 506.0400 #### [facility] [address] [place], [address] Hematocrit (Bld) [Volume fraction] 49.6 % Normal 40-54 [facility] Comment on above: Performed By: #### L 506.0400 #### [facility] [address] [place], [address] Hemoglobin (Bld) [Mass/Vol] 15.9 g/dL Normal 13.0-16.5 [facility] Comment on above: Performed By: #### L 506.0400 #### [facility] [address] [place], [address] IG% 0.600 Normal 0.0-0.9 [facility] Comment on above: Result Comment: IG% - Immature Granulocytes (promyelocytes, myelocytes and metamyelocytes) > 1% indicates that a LEFT SHIFT is Present. Performed By: #### L 506.0400 #### [facility] [address] [place], [address] Lymphocytes/100 WBC (Bld) 13.9 % Low 19-41 [facility] Comment on above: Performed By: #### L 506.0400 #### [facility] [address] [place], [address] MCH (RBC) [Entitic mass] 30.0 pg Normal 27.0-32.0 [facility] Comment on above: Performed By: #### L 506.0400 #### [facility] [address] [place], [address] MCHC (RBC) [Mass/Vol] 32.1 g/dL Normal 32-36 [facility] Comment on above: Performed By: #### L 506.0400 #### [facility] [address] [place], [address] MCV (RBC) [Entitic vol] 93.6 fL Normal 80-94 [facility] Comment on above: Performed By: #### L 506.0400 #### [facility] [address] [place], [address] Monocytes/100 WBC (Bld) 8.1 % Normal 0-10 [facility] Comment on above: Performed By: #### L 506.0400 #### [facility] [address] [place], [address] Neutrophils/100 WBC (Bld) 75.4 % High 47-70 [facility] Comment on above: Performed By: #### L 506.0400 #### [facility] [address] [place], [address] Nucleated RBC (Bld) [#/Vol] 0 10*3/uL Normal 0-5 [facility] Comment on above: Performed By: #### L 506.0400 #### [facility] [address] [place], [address] Platelet mean volume (Bld) [Entitic vol] 10.5 fL Normal 6.2-12.0 [facility] Comment on above: Performed By: #### L 506.0400 #### [facility] [address] [place], [address] Platelets (Bld) [#/Vol] 169 10*3/uL Normal 150-450 [facility] Comment on above: Performed By: #### L 506.0400 #### [facility] [address] [place], [address] RBC (Bld) [#/Vol] 5.30 10*6/uL Normal 4.6-6.2 [facility] Comment on above: Performed By: #### L 506.0400 #### [facility] [address] [place], [address] RDW SD 45.5 fl High 35.1-43.9 [facility] Comment on above: Performed By: #### L 506.0400 #### [facility] [address] [place], [address] WBC (Bld) [#/Vol] 5.2 10*3/uL Normal 4.4-11.0 [facility] Comment on above: Performed By: #### L 506.0400 #### [facility] [address] [place], [address] Absolute Lymph 0.58 X10 3/uL Low 0.83-4.51 [facility] Comment on above: Performed By: #### L 500.4050, L100.0100 #### [facility] [address] [place], [address] Absolute Neut 3.8 X10 3/uL Normal 2.0-7.7 [facility] Comment on above: Performed By: #### L 500.4050, L100.0100 #### [facility] [address] [place], [address] Basophils/100 WBC (Bld) 0.4 % Normal 0-1 [facility] Comment on above: Performed By: #### L 500.4050, L100.0100 #### [facility] [address] [place], [address] Eosinophils/100 WBC (Bld) 1.2 % Normal 0-5 [facility] Comment on above: Performed By: #### L 500.4050, L100.0100 #### [facility] [address] [place], [address] Erythrocyte distribution width (RBC) [Ratio] 13.2 % Normal 11.6-14.6 [facility] Comment on above: Performed By: #### L 500.4050, L100.0100 #### [facility] [address] [place], [address] Hematocrit (Bld) [Volume fraction] 46.8 % Normal 40-54 [facility] Comment on above: Performed By: #### L 500.4050, L100.0100 #### [facility] [address] [place], [address] Hemoglobin (Bld) [Mass/Vol] 15.4 g/dL Normal 13.0-16.5 [facility] Comment on above: Performed By: #### L 500.4050, L100.0100 #### [facility] [address] [place], [address] IG% 0.600 Normal 0.0-0.9 [facility] Comment on above: Result Comment: IG% - Immature Granulocytes (promyelocytes, myelocytes and metamyelocytes) > 1% indicates that a LEFT SHIFT is Present. Performed By: #### L 500.4050, L100.0100 #### [facility] [address] [place], [address] Lymphocytes/100 WBC (Bld) 12.0 % Low 19-41 [facility] Comment on above: Performed By: #### L 500.4050, L100.0100 #### [facility] [address] [place], [address] MCH (RBC) [Entitic mass] 30.4 pg Normal 27.0-32.0 [facility] Comment on above: Performed By: #### L 500.4050, L100.0100 #### [facility] [address] [place], [address] MCHC (RBC) [Mass/Vol] 32.9 g/dL Normal 32-36 [facility] Comment on above: Performed By: #### L 500.4050, L100.0100 #### [facility] [address] [place], [address] MCV (RBC) [Entitic vol] 92.3 fL Normal 80-94 [facility] Comment on above: Performed By: #### L 500.4050, L100.0100 #### [facility] [address] [place], [address] Monocytes/100 WBC (Bld) 8.2 % Normal 0-10 [facility] Comment on above: Performed By: #### L 500.4050, L100.0100 #### [facility] [address] [place], [address] Neutrophils/100 WBC (Bld) 77.6 % High 47-70 [facility] Comment on above: Performed By: #### L 500.4050, L100.0100 #### [facility] [address] [place], [address] Nucleated RBC (Bld) [#/Vol] 0 10*3/uL Normal 0-5 [facility] Comment on above: Performed By: #### L 500.4050, L100.0100 #### [facility] [address] [place], [address] Platelet mean volume (Bld) [Entitic vol] 9.8 fL Normal 6.2-12.0 [facility] Comment on above: Performed By: #### L 500.4050, L100.0100 #### [facility] [address] [place], [address] Platelets (Bld) [#/Vol] 155 10*3/uL Normal 150-450 [facility] Comment on above: Performed By: #### L 500.4050, L100.0100 #### [facility] [address] [place], [address] RBC (Bld) [#/Vol] 5.07 10*6/uL Normal 4.6-6.2 [facility] Comment on above: Performed By: #### L 500.4050, L100.0100 #### [facility] [address] [place], [address] RDW SD 45.1 fl High 35.1-43.9 [facility] Comment on above: Performed By: #### L 500.4050, L100.0100 #### [facility] [address] [place], [address] WBC (Bld) [#/Vol] 4.9 10*3/uL Normal 4.4-11.0 [facility] Comment on above: Performed By: #### L 500.4050, L100.0100 #### [facility] [address] [place], [address] Carbon dioxide measurementOr dered By: Alberto Mustafa on 09-16-2024 CO2 [Moles/Vol] 24.0 mmol/L 22.0-29.0 [facility] Chest 1 View (Portable)on Chest 1 View (Portable) [facility] Imaging Services [address] [place] [address] Chest 1 View (Portable) MR#: [id number] Acct: [id number] Name: GANESH FLORES Rep #: [id number] : 1935 M 88 From: Booker Leblanc MD PCP: Dr. Alberto Mustafa MD Status: [facility] ER Study: Chest 1 View (Portable) Date of Exam: 09/16/24 Exam# [id number] Ordering Dr: Maliha Youngblood DO PROCEDURE: CHEST [...] IMPRESSION: No active cardiopulmonary disease. Reading Location: [facility] CC: Dr. Alberto Mustafa MD; Dr. Maliha Youngblood DO Fur Weigher: Signed Normal [facility] Chloride measurementOrdered By: Alberto Mustafa on 09-16-2024 Chloride [Moles/Vol] 97 mmol/L 96-[address] [facility] Comprehensive Metabolic Prof ilon 09-16-2024 Albumin [Mass/Vol] 4.1 g/dL Normal 3.4-4.8 [facility] Comment on above: Performed By: #### L 500.4050, L100.0100 #### [facility] [address] [place], [address] Albumin/Globulin [Mass ratio] 1.3 {ratio} Normal 0.9-2.4 [facility] Comment on above: Performed By: #### L 500.4050, L100.0100 #### [facility] [address] [place], [address] ALK PHOS 115 U/L Normal 40-129 [facility] Comment on above: Performed By: #### L 500.4050, L100.0100 #### [facility] [address] [place], [address] ALT [Catalytic activity/Vol] 12 U/L Normal <=46 [facility] Comment on above: Performed By: #### L 500.4050, L100.0100 #### [facility] [address] [place], [address] Anion gap [Moles/Vol] 10 mmol/L Normal 5-15 [facility] Comment on above: Performed By: #### L 500.4050, L100.0100 #### [facility] [address] [place], [address] AST [Catalytic activity/Vol] 27 U/L Normal <=37 [facility] Comment on above: Performed By: #### L 500.4050, L100.0100 #### [facility] [address] [place], [address] Bilirubin [Mass/Vol] 0.79 mg/dL Normal 0.00-1.[address] [facility] Comment on above: Performed By: #### L 500.4050, L100.0100 #### [facility] [address] [place], [address] BUN/CRE 12.2 RATIO Normal 10-20 [facility] Comment on above: Performed By: #### L 500.4050, L100.0100 #### [facility] [address] [place], [address] Calcium [Mass/Vol] 10.2 mg/dL Normal 7.6-11.0 [facility] Comment on above: Performed By: #### L 500.4050, L100.0100 #### [facility] [address] [place], [address] Chloride [Moles/Vol] 99 mmol/L Normal 96-[address] [facility] Comment on above: Performed By: #### L 500.4050, L100.0100 #### [facility] [address] [place], [address] CO2 [Moles/Vol] 27.4 mmol/L Normal 22.0-29.0 [facility] Comment on above: Performed By: #### L 500.4050, L100.0100 #### [facility] [address] [place], [address] Creatinine [Mass/Vol] 1.3 mg/dL Normal 0.8-1.3 [facility] Comment on above: Performed By: #### L 500.4050, L100.0100 #### [facility] [address] [place], [address] GFR/1.73 sq M.predicted among non-blacks MDRD (S/P/Bld) [Vol rate/Area] 54 mL/min/{1.73_m2} Low >60 [facility] Comment on above: Result Comment: mL/m in/1.73m2 CKD-EPI Creatinine Equation (2020) Performed By: #### L 500.4050, L100.0100 #### [facility] [address] [place], [address] Globulin (S) [Mass/Vol] 3.1 g/dL Normal 2.2-4.2 [facility] Comment on above: Performed By: #### L 500.4050, L100.0100 #### [facility] [address] [place], [address] Glucose [Mass/Vol] 138 mg/dL High 70-99 [facility] Comment on above: Performed By: #### L 500.4050, L100.0100 #### [facility] [address] [place], [address] Potassium [Moles/Vol] 4.4 mmol/L Normal 3.3-5.1 [facility] Comment on above: Performed By: #### L 500.4050, L100.0100 #### [facility] [address] [place], [address] Sodium [Moles/Vol] 136 mmol/L Normal 133-145 [facility] Comment on above: Performed By: #### L 500.4050, L100.0100 #### [facility] [address] [place], [address] T PROT 7.1 g/dL Normal 5.9-8.4 [facility] Comment on above: Performed By: #### L 500.4050, L100.0100 #### [facility] [address] [place], [address] Urea nitrogen [Mass/Vol] 16 mg/dL Normal 4-19 [facility] Comment on above: Performed By: #### L 500.4050, L100.0100 #### [facility] [address] [place], [address] Creatinine [Moles/Vol]Ordere d By: Alberto Mustafa on 09-16-2024 Creatinine [Mass/Vol] 1.4 mg/dL High 0.8-1.3 [facility] Emergency Department Summary on 09-16-2024 Emergency Department Summary [facility] Medical Records Department [address] [place] [address] Emergency Department Summary 09/16/24 MR#: [id number] Acct: [id number] Name: GANESH FLORES Rep #: [id number] : 1935 88 From: Fiona ROJAS PCP: [...] the ar (more content not included)... Normal [facility] Eosinophil percentageOrdered By: Alberto Mustafa on 09-16-2024 Eosinophils/100 WBC (Bld) 1.2 % 0-5 [facility] Epithelial cells.squamous LM Ql (Urine sed)Ordered By: Maliha Youngblood on 09-16-2024 Epithelial cells.squamous LM.HPF (Urine sed) [#/Area] 0 /[HPF] 0-5 [facility] Erythrocyte distribution wid th ratioOrdered By: Alberto Mustafa on 09-16-2024 Erythrocyte distribution width (RBC) [Ratio] 13.2 % 11.6-14.6 [facility] Erythrocyte distribution wid th standard deviationOrdered By: Alberto Mustafa on 09-16-2024 Erythrocyte distribution width (RBC) [Entitic vol] 45.5 fL High 35.1-43.9 [facility] Erythrocyte distribution width (RBC) [Ratio] 45.5 fl High 35.1-43.9 [facility] Folate measurementOrdered By : Altaf Mayfield on 09-16-2024 Folate 8.53 ng/mL 4.60-34.80 [facility] GFR/1.73 sq M.predicted mehran g non-blacks MDRD (S/P/Bld) [Vol rate/Area]Ordered By: Alberto Mustafa on 09-16-2024 Estimated GFR (MDRD) Non-Af Amer 48 Low >60 [facility] Comment on above: mL/min/1.73m2 CKD-EP I Creatinine Equation (2020) Glomerular filtration rate ( GFR) estimation/1.73 sq m using serum, plasma, or whole bOrdered By: Alberto Mustafa on 09-16-2024 GFR/1.73 sq M.predicted among non-blacks MDRD (S/P/Bld) [Vol rate/Area] 48 mL/min/{1.73_m2} Low >60 [facility] Comment on above: mL/min/1.73m2 CKD-EP I Creatinine Equation (2020) Glucose Ql (U)Ordered By: Estephanie Youngblood on 09-16-2024 Urine Glucose (UA) Normal mg/dl Normal [facility] H AND P Exam - Hospitaliston 09-16-2024 H&P Exam - Hospitalist [facility] Medical Records Department [address] [place] [address] H P Exam - Hospitalist 09/16/241911 MR#: [id number] Acct: [id number] Name: GANESH FLORES Rep #: [id number] : 1935 88 From: Altaf Meeks DO PCP: Dr. Alberto Mustafa MD Status:ADM BOY [place] [facility] HPI - General General Date of Admission: 09/16/24 Date of Service: 09/16/24 Chief Complaint: Worsening Confusion, Agitation and Recent Fall. HPI Narrative GANESH FLORES, is a 88 M with a past medical history of chronic dementia, hypothyroidism; on levothyroxine and OA who presents to [facility] ER complaining of fall yesterday in [...] expected to be less than 2 midnights. [facility] Medical History (Updated 09/17/24 @ 03:50 by [...] oral mucous membranes HEENT Narrative: Patient very [place]. Eyes PERRL, EOMs intact bilaterally and conjunctivae [...] 77.6 H, Lymph % (Auto) 12.0 L, [place] % (Auto) 8.2, Eos % (Auto) 1.2, [...] 4.1, Globuli (more content not included)... Normal [facility] Hematocrit Auto (Bld) [Volum e fraction]Ordered By: Alberto Mustafa on 09-16-2024 Hematocrit (Bld) [Volume fraction] 49.6 % 40-54 [facility] Hemoglobin A1c percentageOrd ered By: Altaf Mayfield on 09-16-2024 HbA1c (Bld) [Mass fraction] 6.1 % >5.7 [facility] Hemoglobin measurementOrdere d By: Alberto Mustafa on 09-16-2024 Hemoglobin (Bld) [Mass/Vol] 15.9 g/dL 13.0-16.5 [facility] Immature granulocytes/100 WB C Auto (Bld)Ordered By: Alberto Mustafa on 09-16-2024 Immature granulocytes/100 WBC (Bld) 0.600 % 0.0-0.9 [facility] Comment on above: IG% - Immature Granu locytes (promyelocytes, myelocytes and metamyelocytes) > 1% indicates that a LEFT SHIFT is Present. Ketones Test strip Ql (U)Ord ered By: Maliha Youngblood on 09-16-2024 Ketones Ql (U) 5 mg/dl High Negative [facility] L501.4021on 09-16-2024 Trop T High Sen 57 ng/L Invalid Interpretation Code <=22 [facility] Comment on above: Order Comment: Comme nts: draw at 15:05 Result Comment: Crit ical Result(s) Called at 09/16/2024-16:35 by Prosper Garces to Rina Meeks??Results read back by same. Performed By: #### L 500.4050, L100.0100 #### [facility] [address] [place], [address] Trop T High Sen 62 ng/L Invalid Interpretation Code <=22 [facility] Comment on above: Result Comment: Crit ical Result(s) Called at 09/16/2024 by Prosper Garces??to Devorah West Results read back by same. Performed By: #### L 506.0400 #### [facility] [address] [place], [address] Laboratory - Chemistry and C hemistry - challengeOrdered By: Alberto Mustafa on 09-16-2024 AST [Catalytic activity/Vol] 31 U/L <38 [facility] Lymphocytes Auto (Unsp spec) [#/Vol]Ordered By: Alberto Mustafa on 09-16-2024 Lymphocytes (Bld) [#/Vol] 0.72 10*3/uL Low 0.83-4.51 [facility] Lymphocytes/100 WBC Auto (Un sp spec)Ordered By: Alberto Mustafa on 09-16-2024 Lymphocytes/100 WBC (Bld) 13.9 % Low 19-41 [facility] MCV (mean corpuscular volume ) determinationOrdered By: Alberto Mustafa on 09-16-2024 MCV (RBC) [Entitic vol] 93.6 fL 80-94 [facility] Magnesium (Unsp spec) [Mass/ Vol]Ordered By: Altaf Mayfield on 09-16-2024 Magnesium [Mass/Vol] 2.2 mg/dL 1.5-2.[address] [facility] Magnesium measurement (mass/ volume)Ordered By: Altaf Mayfield on 09-16-2024 Magnesium (Unsp spec) [Mass/Vol] 2.2 mg/dL 1.5-2.2 [facility] Mean corpuscular hemoglobin (MCH) determinationOrdered By: Alberto Mustafa on 09-16-2024 MCH (RBC) [Entitic mass] 30.0 pg 27.0-32.0 [facility] Mean corpuscular hemoglobin concentration (MCHC) determinationOrdered By: Alberto Mustafa on 09-16-2024 MCHC (RBC) [Mass/Vol] 32.1 g/dL 32-36 [facility] Mean platelet volume determi nationOrdered By: Alberto Mustafa on 09-16-2024 Platelet mean volume (Bld) [Entitic vol] 10.5 fL 6.2-12.0 [facility] Microscopic analysis of urin e for red blood cells (RBC)Ordered By: Maliha Youngblood on 09-16-2024 Microscopic analysis of urine for red blood cells (RBC) 0 SEEN /hpf 0-5 [facility] Urine RBC 0 SEEN /hpf 0-5 [facility] Monocyte percentageOrdered B y: Alberto Mustafa on 09-16-2024 Monocytes/100 WBC (Bld) 8.1 % 0-10 [facility] Mucus LM Ql (Urine sed)Order ed By: Maliha Youngblood on 09-16-2024 Mucus Ql (Urine sed) 0 SEEN /hpf [facility] Neutrophil percentageOrdered By: Alberto Mustafa on 09-16-2024 Neutrophils/100 WBC (Bld) 75.4 % High 47-70 [facility] Nitrite Test strip Ql (U)Ord ered By: Maliha Youngblood on 09-16-2024 Nitrite Ql (U) Negative Negative [facility] No Panel InformationOrdered By: Altaf Mayfield on 09-16-2024 Troponin T High Sensitivity 76 ng/L High <22 [facility] Comment on above: Delta: 57 on 5-1523Critical Result(s) Called at: by: Results read back by same.CALLED TO Ramandeep TOMLIN AT 0055 Nucleated red blood cell per centageOrdered By: Alberto Mustafa on 09-16-2024 Nucleated RBC/100 WBC (Bld) [Ratio] 0 % 0-5 [facility] Platelet countOrdered By: Janette Mustafa on 09-16-2024 Platelets (Bld) [#/Vol] 169 10*3/uL 150-450 [facility] Protein Test strip Ql (U)Ord ered By: Maliha Youngblood on 09-16-2024 Protein Ql (U) 15 mg/dl High Negative [facility] RBC Auto (Bld) [#/Vol]Ordere d By: Alberto Mustafa on 09-16-2024 RBC (Bld) [#/Vol] 5.30 10*6/uL 4.6-6.2 [facility] Serum globulin measurementOr dered By: Alberto Mustafa on 09-16-2024 Globulin (S) [Mass/Vol] 3.2 g/dL 2.2-4.2 [facility] Serum glucose measurement (m ass/volume)Ordered By: Alberto Mustafa on 09-16-2024 Glucose [Mass/Vol] 124 mg/dL High 70-99 [facility] Serum or plasma alanine meraz otransferase (ALT) measurementOrdered By: Alberto Mustafa on 09-16-2024 ALT [Catalytic activity/Vol] 15 U/L <47 [facility] Serum or plasma albumin ana urement (mass/volume)Ordered By: Alberto Mustafa on 09-16-2024 Albumin [Mass/Vol] 4.3 g/dL 3.4-4.8 [facility] Serum or plasma albumin/glob ulin mass ratioOrdered By: Alberto Mustafa on 09-16-2024 Albumin/Globulin [Mass ratio] 1.4 {ratio} 0.9-2.4 [facility] Serum or plasma alkaline keenan sphatase measurementOrdered By: Alberto Mustafa on 09-16-2024 ALP [Catalytic activity/Vol] 113 U/L 40-129 [facility] Serum or plasma anion gap de termination (moles/volume)Ordered By: Alberto Mustafa on 09-16-2024 Anion gap [Moles/Vol] 15 mmol/L 5-15 [facility] Serum or plasma calcium ana urement (mass/volume)Ordered By: Alberto Mustafa on 09-16-2024 Calcium [Mass/Vol] 10.3 mg/dL 7.6-11.0 [facility] Serum or plasma creatinine m easurement (moles/volume)Ordered By: Alberto Mustafa on 09-16-2024 Creatinine [Moles/Vol] 1.4 mg/dL High 0.8-1.3 [facility] Serum or plasma potassium me asurementOrdered By: Alberto Mustafa on 09-16-2024 Potassium [Moles/Vol] 4.4 mmol/L 3.3-5.1 [facility] Serum or plasma sodium measu rement (moles/volume)Ordered By: Alberto Mustafa on 09-16-2024 Sodium [Moles/Vol] 136 mmol/L 133-145 [facility] Serum or plasma urea nitroge n measurement (mass/volume)Ordered By: Alberto Mustafa on 09-16-2024 Urea nitrogen [Mass/Vol] 16 mg/dL 4-19 [facility] Spine Cervical without Contr ason 09-16-2024 Spine Cervical without Contras [facility] Imaging Services [address] [place] [address] Spine Cervical without Contras MR#: [id number] Acct: [id number] Name: GANESH FLORES Rep #: [id number] : 1935 M 88 From: Booker Leblanc MD PCP: Dr. Alberto Mustafa MD Status: REG ER Study: Spine Cervical without Contras Date of Exam: 0 09/16/24 Exam# [id number] Ordering Dr: Fiona Quintero PROCEDURE: CT CERVICAL [...] degenerative disc disease and spondylosis. Reading Location: [place] [address] CC: Dr. Alberto Mustafa MD; CRYSTAL Solorzano Fur Weigher: Signed Normal [facility] Spine Lumbar without Contras ton 09-16-2024 Spine Lumbar without Contrast [facility] Imaging Services [address] [place] [id number] Spine Lumbar without Contrast MR#: [id number] Acct: [id number] Name: GANESH FLORES Rep #: [id number] : 1935 M 88 From: Booker Leblanc MD PCP: Dr. Alberto Mustafa MD Status: REG ER Study: Spine Lumbar without Contrast Date of Exam: Exam# [id number] Ordering Dr: Fiona Quintero PROCEDURE: COMPUTED TOMOGRAPHY [...] 5. No acute osseous abnormalities. Reading Location: [place] [address] CC: Dr. Alberto Mustafa MD; CRYSTAL Solorzano Fur Weigher: Signed Normal [facility] Squamous epithelial cells de tection in urine sediment by light microscopyOrdered By: Maliha Youngblood on 09-16-2024 Epithelial cells.squamous LM Ql (Urine sed) 0 SEEN /hpf 0-5 [facility] T4 freeOrdered By: Alberto nick on 09-16-2024 Free T4 [Mass/Vol] 1.40 ng/dL 0.76-1.46 [facility] TSH DL <= 0.005 mIU/L QnOrde red By: Altaf Mayfield on 09-16-2024 Thyroid Stimulating Hormone (TSH) 3.100 uIU/mL 0.300-4.200 [facility] TSH Qn 3.100 uIU/mL 0.300-4.200 [facility] TSH DL <= 0.005 mIU/L QnOrde red By: Alberto Mustafa on 09-16-2024 Thyroid Stimulating Hormone (TSH) 2.780 uIU/mL 0.300-4.200 [facility] TSH Qn 2.780 uIU/mL 0.300-4.200 [facility] Total proteinOrdered By: Jersey Mustafa on 09-16-2024 Protein [Mass/Vol] 7.5 g/dL 5.9-8.4 [facility] Urinalysis, Completeon 09-16 RBC 0 SEEN Normal 0-5 [facility] Comment on above: Order Comment: Order Date: 04/25/24 Order Info: 86-1 - CMP Order Info: [id number] - LIPID Order Info: [id number] - TSH Order Info: 3024-7 - T4F Performed By: #### L 506.0400 #### [facility] [address] [place], [address] BACTERIA 0 SEEN Normal None Seen [facility] Comment on above: Order Comment: Order Date: 04/25/24 Order Info: 86-1 - CMP Order Info: [id number] - LIPID Order Info: 3016-3 - TSH Order Info: 3024-7 - T4F Performed By: #### L 506.0400 #### [facility] [address] [place], [address] EPI,SQUAMOUS 0 SEEN Normal 0-5 [facility] Comment on above: Order Comment: Order Date: 04/25/24 Order Info: 86-1 - CMP Order Info: [id number] - LIPID Order Info: [id number] - TSH Order Info: 3024-7 - T4F Performed By: #### L 506.0400 #### [facility] [address] [place], [address] Mucus Ql (Urine sed) 0 SEEN Normal [facility] Comment on above: Order Comment: Order Date: 04/25/24 Order Info: 0786-1 - CMP Order Info: [id number] - LIPID Order Info: [id number] - TSH Order Info: 3024-7 - T4F Performed By: #### L 506.0400 #### [facility] [address] [place], [address] WBC 0 SEEN Normal 0-5 [facility] Comment on above: Order Comment: Order Date: 04/25/24 Order Info: 0786-1 - CMP Order Info: [id number] - LIPID Order Info: [id number] - TSH Order Info: 3024-7 - T4F Performed By: #### L 506.0400 #### [facility] [address] [place], [address] Urine Drug Screen (VISTA)on 09-16-2024 AMPHETAMINES Normal <1000 ng/mL [facility] Comment on above: Result Comment: EDIE ENT DICHARGED SPECIMEN NO LONGER IN LAB Performed By: #### L 500.4050, L100.0100 #### [facility] [address] [place], [address] BARBITIURATES Normal < 200 ng/mL [facility] Comment on above: Result Comment: EDIE ENT DICHARGED SPECIMEN NO LONGER IN LAB Performed By: #### L 500.4050, L100.0100 #### [facility] [address] [place], [address] BENZODIAZIPINE Normal < 200 ng/mL [facility] Comment on above: Result Comment: EDIE ENT DICHARGED SPECIMEN NO LONGER IN LAB Performed By: #### L 500.4050, L100.0100 #### [facility] [address] [place], [address] BUP Ur Drug Scr Normal < 200 ng/mL [facility] Comment on above: Result Comment: EDIE ENT DICHARGED SPECIMEN NO LONGER IN LAB Performed By: #### L 500.4050, L100.0100 #### [facility] [address] [place], [address] COCAINE Normal < 300 ng/mL [facility] Comment on above: Result Comment: EDIE ENT DICHARGED SPECIMEN NO LONGER IN LAB Performed By: #### L 500.4050, L100.0100 #### [facility] [address] [place], [address] Fentanyl Normal [facility] Comment on above: Result Comment: EDIE ENT DICHARGED SPECIMEN NO LONGER IN LAB Performed By: #### L 500.4050, L100.0100 #### [facility] [address] [place], [address] METHADONE Normal < 300 ng/mL [facility] Comment on above: Result Comment: EDIE ENT DICHARGED SPECIMEN NO LONGER IN LAB Performed By: #### L 500.4050, L100.0100 #### [facility] [address] [place], [address] OPIATES Normal < 300 ng/mL [facility] Comment on above: Result Comment: EDIE ENT DICHARGED SPECIMEN NO LONGER IN LAB Performed By: #### L 500.4050, L100.0100 #### [facility] [address] [place], [address] OXYCODONE Normal < 100 ng/mL [facility] Comment on above: Result Comment: EDIE ENT DICHARGED SPECIMEN NO LONGER IN LAB Performed By: #### L 500.4050, L100.0100 #### [facility] [address] [place], [address] PCP Normal < 25 ng/mL [facility] Comment on above: Result Comment: EDIE ENT DICHARGED SPECIMEN NO LONGER IN LAB Performed By: #### L 500.4050, L100.0100 #### [facility] [address] [place], [address] THC Normal < 50 ng/mL [facility] Comment on above: Result Comment: EDIE ENT DICHARGED SPECIMEN NO LONGER IN LAB Performed By: #### L 500.4050, L100.0100 #### [facility] [address] [place], [address] Urine blood detectionOrdered By: Maliha Youngblood on 09-16-2024 Urine Occult Blood Negative Negative [facility] Urine clarityOrdered By: Rem us Ford on 09-16-2024 Clarity (U) Clear Clear [facility] Urine color determinationOrd ered By: Maliha Youngblood on 09-16-2024 Color (U) Yellow Yellow [facility] Urine glucose detectionOrder ed By: Maliha Youngblood on 09-16-2024 Glucose Ql (U) Normal mg/dl Normal [facility] Urine leukocyte esterase det ection by dipstickOrdered By: Maliha Youngblood on 09-16-2024 Leukocyte esterase Test strip Ql (U) Negative Negative [facility] Urine pHOrdered By: Maliha Un gur on 09-16-2024 pH (U) 6.5 [pH] 5.0 - 8.0 [facility] Urine sediment bacteria coun t by microscopy (number/high power field)Ordered By: Maliha Youngblood on 09-16-2024 Bacteria LM.HPF (Urine sed) [#/Area] 0 /[HPF] None Seen [facility] Urine specific gravity measu rementOrdered By: Maliha Youngblood on 09-16-2024 Specific gravity (U) [Rel density] 1.010 1.002-1.030 [facility] Urine urobilinogen measureme ntOrdered By: Maliha Youngblood on 09-16-2024 Urobilinogen Ql (U) Normal mg/dl Normal [facility] Urobilinogen Ql (U)Ordered B y: Maliha Youngblood on 09-16-2024 Urine Urobilinogen Normal mg/dl Normal [facility] White blood cell (WBC) count Ordered By: Alberto Mustafa on 09-16-2024 WBC (Bld) [#/Vol] 5.2 10*3/uL 4.4-11.0 [facility] White blood cell countOrdere d By: Maliha Youngblood on 09-16-2024 Urine WBC 0 SEEN /hpf 0-5 [facility] White blood cell count 0 SEEN /hpf 0-5 [facility] Direct serum free thyroxine (FT4) measurementOrdered By: Alberto Mustafa on 07-22-2024 Free T4 [Mass/Vol] 1.23 ng/dL 0.76-1.46 [facility] T4 Free Directon 07-22-2024 T4 FREE DIRECT 1.23 ng/dL Normal 0.76-1.46 [facility] Comment on above: Performed By: #### L 506.0400 #### [facility] [address] [place], [address] Direct serum free thyroxine (FT4) measurementOrdered By: Alberto Mustafa on 07-03-2024 Free T4 [Mass/Vol] 2.48 ng/dL High 0.76-1.46 [facility] T4 Free Directon 07-03-2024 T4 FREE DIRECT 2.48 ng/dL High 0.76-1.46 [facility] Comment on above: Order Comment: Order Date: 07/03/24 Order Info: [id number] - T4F Performed By: #### L 506.0400 #### [facility] [address] [place], [address] CBC W/Diff, Automatedon 11-0 Absolute Lymph 0.87 X10 3/uL Normal 0.83-4.51 [facility] Comment on above: Order Comment: Order Date: 04/25/24 Order Info: 0786-1 - CMP Order Info: [id number] - LIPID Order Info: [id number] - TSH Order Info: 7 - T4F Performed By: #### L 506.0400 #### [facility] [address] [place], [address] Absolute Neut 3.7 X10 3/uL Normal 2.0-7.7 [facility] Comment on above: Order Comment: Order Date: 04/25/24 Order Info: 0786-1 - CMP Order Info: [id number] - LIPID Order Info: [id number] - TSH Order Info: 3024-7 - T4F Performed By: #### L 506.0400 #### [facility] [address] [place], [address] Basophils/100 WBC (Bld) 0.7 % Normal 0-1 [facility] Comment on above: Order Comment: Order Date: 04/25/24 Order Info: 0786-1 - CMP Order Info: [id number] - LIPID Order Info: [id number] - TSH Order Info: 3024-7 - T4F Performed By: #### L 506.0400 #### [facility] [address] [place], [address] Eosinophils/100 WBC (Bld) 2.8 % Normal 0-5 [facility] Comment on above: Order Comment: Order Date: 04/25/24 Order Info: 0786-1 - CMP Order Info: [id number] - LIPID Order Info: [id number] - TSH Order Info: 3024-7 - T4F Performed By: #### L 506.0400 #### [facility] [address] [place], [place], [id number] (153) Erythrocyte distribution width (RBC) [Ratio] 13.2 % Normal 11.6-14.6 [facility] Comment on above: Order Comment: Order Date: 04/25/24 Order Info: 86-1 - CMP Order Info: [id number] - LIPID Order Info: [id number] - TSH Order Info: 3024-7 - T4F Performed By: #### L 506.0400 #### [facility] [address] [place], [address] Hematocrit (Bld) [Volume fraction] 46.8 % Normal 40-54 [facility] Comment on above: Order Comment: Order Date: 04/25/24 Order Info: 0786-1 - CMP Order Info: [id number] - LIPID Order Info: [id number] - TSH Order Info: 3024-7 - T4F Performed By: #### L 506.0400 #### [facility] [address] [place], [address] Hemoglobin (Bld) [Mass/Vol] 14.8 g/dL Normal 13.0-16.5 [facility] Comment on above: Order Comment: Order Date: 04/25/24 Order Info: 0786-1 - CMP Order Info: [id number] - LIPID Order Info: 3 - TSH Order Info: 7 - T4F Performed By: #### L 506.0400 #### [facility] [address] [place], [address] IG% 0.600 Normal 0.0-0.9 [facility] Comment on above: Order Comment: Order Date: 04/25/24 Order Info: 86-1 - CMP Order Info: [id number] - LIPID Order Info: 3 - TSH Order Info: 7 - T4F Result Comment: IG% - Immature Granulocytes (promyelocytes, myelocytes and metamyelocytes) > 1% indicates that a LEFT SHIFT is Present. Performed By: #### L 506.0400 #### [facility] [address] [place], [address] Lymphocytes/100 WBC (Bld) 16.3 % Low 19-41 [facility] Comment on above: Order Comment: Order Date: 04/25/24 Order Info: 0786- - CMP Order Info: [id number] - LIPID Order Info: 3 - TSH Order Info: 7 - T4F Performed By: #### L 506.0400 #### [facility] [address] [place], [address] MCH (RBC) [Entitic mass] 29.6 pg Normal 27.0-32.0 [facility] Comment on above: Order Comment: Order Date: 04/25/24 Order Info: 0786-1 - CMP Order Info: [id number] - LIPID Order Info: 3 - TSH Order Info: 7 - T4F Performed By: #### L 506.0400 #### [facility] [address] [place], [address] MCHC (RBC) [Mass/Vol] 31.6 g/dL Low 32-36 [facility] Comment on above: Order Comment: Order Date: 04/25/24 Order Info: 86-1 - CMP Order Info: [id number] - LIPID Order Info: 3016-3 - TSH Order Info: 3024-7 - T4F Performed By: #### L 506.0400 #### [facility] [address] [place], [address] MCV (RBC) [Entitic vol] 93.6 fL Normal 80-94 [facility] Comment on above: Order Comment: Order Date: 04/25/24 Order Info: 86-1 - CMP Order Info: [id number] - LIPID Order Info: 3016-3 - TSH Order Info: 3024-7 - T4F Performed By: #### L 506.0400 #### [facility] [address] [place], [address] Monocytes/100 WBC (Bld) 9.7 % Normal 0-10 [facility] Comment on above: Order Comment: Order Date: 04/25/24 Order Info: 785-1 - CMP Order Info: [id number] - LIPID Order Info: 3016-3 - TSH Order Info: 3024-7 - T4F Performed By: #### L 506.0400 #### [facility] [address] [place], [address] Neutrophils/100 WBC (Bld) 69.9 % Normal 47-70 [facility] Comment on above: Order Comment: Order Date: 04/25/24 Order Info: 86-1 - CMP Order Info: [id number] - LIPID Order Info: 3016-3 - TSH Order Info: 3024-7 - T4F Performed By: #### L 506.0400 #### [facility] [address] [place], [address] Nucleated RBC (Bld) [#/Vol] 0 10*3/uL Normal 0-5 [facility] Comment on above: Order Comment: Order Date: 04/25/24 Order Info: 86-1 - CMP Order Info: [id number] - LIPID Order Info: 3016-3 - TSH Order Info: 3024-7 - T4F Performed By: #### L 506.0400 #### [facility] [address] [place], [place], [address] Platelet mean volume (Bld) [Entitic vol] 10.3 fL Normal 6.2-12.0 [facility] Comment on above: Order Comment: Order Date: 04/25/24 Order Info: 86-1 - CMP Order Info: [id number] - LIPID Order Info: 3016-3 - TSH Order Info: 3024-7 - T4F Performed By: #### L 506.0400 #### [facility] [address] [place], [place], [address] Platelets (Bld) [#/Vol] 141 10*3/uL Low 150-450 [facility] Comment on above: Order Comment: Order Date: 04/25/24 Order Info: 785-1 - CMP Order Info: [id number] - LIPID Order Info: 3016-3 - TSH Order Info: 3024-7 - T4F Performed By: #### L 506.0400 #### [facility] [address] [place], [place], [address] RBC (Bld) [#/Vol] 5.00 10*6/uL Normal 4.6-6.2 [facility] Comment on above: Order Comment: Order Date: 04/25/24 Order Info: 0786-1 - CMP Order Info: [id number] - LIPID Order Info: 3016-3 - TSH Order Info: 3024-7 - T4F Performed By: #### L 506.0400 #### [facility] [address] [place], [address] RDW SD 45.2 fl High 35.1-43.9 [facility] Comment on above: Order Comment: Order Date: 04/25/24 Order Info: 0786-1 - CMP Order Info: [id number] - LIPID Order Info: 3016-3 - TSH Order Info: 3024-7 - T4F Performed By: #### L 506.0400 #### [facility] [address] [place], [address] WBC (Bld) [#/Vol] 5.4 10*3/uL Normal 4.4-11.0 [facility] Comment on above: Order Comment: Order Date: 04/25/24 Order Info: 86-1 - CMP Order Info: [id number] - LIPID Order Info: 301-3 - TSH Order Info: 3024-7 - T4F Performed By: #### L 506.0400 #### [facility] [address] [place], [address] Comprehensive Metabolic Prof ilon 05-29-2024 Albumin [Mass/Vol] 3.9 g/dL Normal 3.2-5.0 [facility] Comment on above: Order Comment: Order Date: 04/25/24 Order Info: 785- - CMP Order Info: - LIPID Order Info: 3 - TSH Order Info: 3024-7 - T4F Performed By: #### L 506.0400 #### [facility] [address] [place], [place], [address] Albumin/Globulin [Mass ratio] 1.1 {ratio} Normal 0.9-2.4 [facility] Comment on above: Order Comment: Order Date: 04/25/24 Order Info: 785- - CMP Order Info: - LIPID Order Info: 3013 - TSH Order Info: 3024-7 - T4F Performed By: #### L 506.0400 #### [facility] [address] [place], [address] ALK P 117 U/L Normal 45-117 [facility] Comment on above: Order Comment: Order Date: 04/25/24 Order Info: 86-1 - CMP Order Info: [id number] - LIPID Order Info: 3013 - TSH Order Info: 3024-7 - T4F Performed By: #### L 506.0400 #### [facility] [address] [place], [address] ALT [Catalytic activity/Vol] 20 U/L Normal 16-61 [facility] Comment on above: Order Comment: Order Date: 04/25/24 Order Info: 0786-1 - CMP Order Info: [id number] - LIPID Order Info: 3016-3 - TSH Order Info: 3024-7 - T4F Performed By: #### L 506.0400 #### [facility] [address] [place], [address] AST [Catalytic activity/Vol] 22 U/L Normal 15-37 [facility] Comment on above: Order Comment: Order Date: 04/25/24 Order Info: 785-1 - CMP Order Info: [id number] - LIPID Order Info: 3015-3 - TSH Order Info: 3027 - T4F Performed By: #### L 506.0400 #### [facility] [address] [place], [address] Bilirubin [Mass/Vol] 0.90 mg/dL Normal 0.20-1.[address] [facility] Comment on above: Order Comment: Order Date: 04/25/24 Order Info: 785-1 - CMP Order Info: [id number] - LIPID Order Info: 3 - TSH Order Info: 3024-7 - T4F Result Comment: For patients on eltrombopag therapy, use of Dimension [place] TBIL is not recommended. Performed By: #### L 506.0400 #### [facility] [address] [place], [address] BUN/CRE 16.3 RATIO Normal 10-20 [facility] Comment on above: Order Comment: Order Date: 04/25/24 Order Info: 785-1 - CMP Order Info: [id number] - LIPID Order Info: 3016-3 - TSH Order Info: 3024-7 - T4F Performed By: #### L 506.0400 #### [facility] [address] [place], [address] CA,Total 9.6 mg/dL Normal 8.5-10.1 [facility] Comment on above: Order Comment: Order Date: 04/25/24 Order Info: 0786-1 - CMP Order Info: [id number] - LIPID Order Info: 3 - TSH Order Info: 7 - T4F Performed By: #### L 506.0400 #### [facility] [address] [place], [address] Chloride [Moles/Vol] 105 mmol/L Normal 98-[address] [facility] Comment on above: Order Comment: Order Date: 04/25/24 Order Info: 0786-1 - CMP Order Info: [id number] - LIPID Order Info: 3015-09 - TSH Order Info: 3024-01 - T4F Performed By: #### L 506.0400 #### [facility] [address] [place], [place], [address] CO2 [Moles/Vol] 28.0 mmol/L Normal 21.0-32.0 [facility] Comment on above: Order Comment: Order Date: 04/25/24 Order Info: 86-1 - CMP Order Info: [id number] - LIPID Order Info: 3015-09 - TSH Order Info: 3024-01 - T4F Performed By: #### L 506.0400 #### [facility] [address] [place], [place], [address] Creatinine [Mass/Vol] 1.35 mg/dL High 0.70-1.30 [facility] Comment on above: Order Comment: Order Date: 04/25/24 Order Info: 86-1 - CMP Order Info: [id number] - LIPID Order Info: 3 - TSH Order Info: 7 - T4F Result Comment: The validity of the calculated GFR GFRAA in patients over 70 years has not been determined. Clinical correlation is essential. Performed By: #### L 506.0400 #### [facility] [address] [place], [place], [address] EST GFR - AA 64 mL/min Normal >60 [facility] Comment on above: Order Comment: Order Date: 04/25/24 Order Info: 0786-1 - CMP Order Info: [id number] - LIPID Order Info: 3015-09 - TSH Order Info: 7 - T4F Result Comment: Afri can Slovak GFR Calc Performed By: #### L 506.0400 #### [facility] [address] [place], [place], [address] GAP 4 Low 5-15 [facility] Comment on above: Order Comment: Order Date: 04/25/24 Order Info: 785-1 - CMP Order Info: [id number] - LIPID Order Info: 3015-09 - TSH Order Info: 7 - T4F Performed By: #### L 506.0400 #### [facility] [address] [place], [address] GFR/1.73 sq M.predicted among non-blacks MDRD (S/P/Bld) [Vol rate/Area] 53 mL/min/{1.73_m2} Low >60 [facility] Comment on above: Order Comment: Order Date: 04/25/24 Order Info: 86-1 - CMP Order Info: [id number] - LIPID Order Info: 3015-09 - TSH Order Info: 7 - T4F Result Comment: Non- GFR Calc Performed By: #### L 506.0400 #### [facility] [address] [place], [place], [address] Globulin (S) [Mass/Vol] 3.5 g/dL Normal 2.2-4.2 [facility] Comment on above: Order Comment: Order Date: 04/25/24 Order Info: 0786-1 - CMP Order Info: [id number] - LIPID Order Info: 3015-09 - TSH Order Info: 3027 - T4F Performed By: #### L 506.0400 #### [facility] [address] [place], [place], [address] Glucose [Mass/Vol] 113 mg/dL High 74-106 [facility] Comment on above: Order Comment: Order Date: 04/25/24 Order Info: 785- - CMP Order Info: [id number] - LIPID Order Info: 3 - TSH Order Info: 3024-7 - T4F Result Comment: Fast ing Glucose result from 100 to 125 mg/dL suggests IMPAIRED HOMEOSTASIS per A.D.A. criteria. Performed By: #### L 506.0400 #### [facility] [address] [place], [address] Potassium [Moles/Vol] 4.2 mmol/L Normal 3.5-5.1 [facility] Comment on above: Order Comment: Order Date: 04/25/24 Order Info: 785- - CMP Order Info: [id number] - LIPID Order Info: 3 - TSH Order Info: 7 - T4F Performed By: #### L 506.0400 #### [facility] [address] [place], [address] Sodium [Moles/Vol] 138 mmol/L Normal 136-145 [facility] Comment on above: Order Comment: Order Date: 04/25/24 Order Info: 785- - CMP Order Info: [id number] - LIPID Order Info: [id number] - TSH Order Info: 302-7 - T4F Performed By: #### L 506.0400 #### [facility] [address] [place], [address] T PROT 7.4 g/dL Normal 6.4-8.2 [facility] Comment on above: Order Comment: Order Date: 04/25/24 Order Info: 785-1 - CMP Order Info: [id number] - LIPID Order Info: 3013 - TSH Order Info: 3024-7 - T4F Performed By: #### L 506.0400 #### [facility] [address] [place], [address] Urea nitrogen [Mass/Vol] 22 mg/dL High 7-18 [facility] Comment on above: Order Comment: Order Date: 04/25/24 Order Info: 785-07 - CMP Order Info: - LIPID Order Info: [id number] - TSH Order Info: 3024-01 - T4F Performed By: #### L 506.0400 #### [facility] [address] [place], [address] Lipid Profileon 05-29-2024 Cholesterol [Mass/Vol] 162 mg/dL Normal 200 [facility] Comment on above: Order Comment: Order Date: 04/25/24 Order Info: 785- - CMP Order Info: - LIPID Order Info: [id number] - TSH Order Info: 3024-01 - T4F Result Comment: <200 mg/dL Desirable 200-240 mg/dL Borderline >240 mg/dL High Risk Performed By: #### L 506.0400 #### [facility] [address] [place], [address] Cholesterol in HDL [Mass/Vol] 81 mg/dL Normal [facility] Comment on above: Order Comment: Order Date: 04/25/24 Order Info: 785-07 - CMP Order Info: - LIPID Order Info: [id number] - TSH Order Info: 3024-01 - T4F Result Comment: The drugs N-Acetylcysteine and Metamizole may falsely depress this assay. Reference Range HDL <40 mg/dL Low HDL Cholesterol HDL >or= 60 mg/dL High HDL Cholesterol Performed By: #### L 506.0400 #### [facility] [address] [place], [address] Cholesterol in LDL [Mass/Vol] 67 mg/dL Normal 0-130 [facility] Comment on above: Order Comment: Order Date: 04/25/24 Order Info: 785-1 - CMP Order Info: [id number] - LIPID Order Info: 3 - TSH Order Info: 3024-01 - T4F Performed By: #### L 506.0400 #### [facility] [address] [place], [place], [address] Cholesterol in VLDL [Mass/Vol] 14 mg/dL Normal 5-40 [facility] Comment on above: Order Comment: Order Date: 04/25/24 Order Info: 785- - CMP Order Info: [id number] - LIPID Order Info: 3 - TSH Order Info: 7 - T4F Performed By: #### L 506.0400 #### [facility] [address] [place], [place], [address] Triglyceride [Mass/Vol] 68 mg/dL Normal [facility] Comment on above: Order Comment: Order [...] mg/dL Performed By: #### L 506.0400 #### [facility] [address] [place], [place], [address] T4 Free Directon 05-29-2024 T4 FREE DIRECT 1.83 ng/dL High 0.76-1.46 [facility] Comment on above: Order Comment: Order Date: 04/25/24 Order Info: 785-07 - CMP Order Info: - LIPID Order Info: 3 - TSH Order Info: 7 - T4F Performed By: #### L 506.0400 #### [facility] [address] [place], [place], [address] Thyroid Stim Hormone (TSH)on 05-29-2024 TSH 0.082 uIU/mL Low 0.358-3.740 [facility] Comment on above: Order Comment: Order Date: 04/25/24Order Info: 785- - CMPOrder Info: - LIPIDOrder Info: 3 - TSHOrder Info: 7 - T4F Performed By: #### L 499.0042 #### [facility] [address] [place], [place], [address] Vitamin B12on 05-29-2024 Cobalamin (Vitamin B12) [Mass/Vol] 271 pg/mL Normal 211-911 [facility] Comment on above: Order Comment: Order Date: 04/25/24Order Info: 2132-9 - B12 Performed By: #### L 499.0042 #### [facility] [address] [place], [place], [address] Thyroidon 05-01-2024 Thyroid [facility] [address] [place], [place] [address] Thyroid MR#: [id number] Acct: [id number] Name: GANESH FLORES Rep #: [id number] : 1935 M 88 From: Serafin carroll MD PCP: Dr. Alberto Mustafa MD Status: [facility] Study: Thyroid Date of Exam: 05/01/24 Exam# [id number] Ordering Dr: Alberto Mustafa MD [id number] STUDY: THYROID ULTRASOUND REASON FOR EXAM: Male, [...] EDT , CC: Dr. Alberto Mustafa MD Fur Weigher: Signed Normal [facility] Hemoglobin A1con 04-28-2024 HbA1c (Bld) [Mass fraction] 6.0 % High 3.8-5.6 [facility] Comment on above: Order Comment: ADD O N A1C Result Comment: Norm al < 5.7 % Prediabetic 5.7 - 6.4 % Diabetic >or= 6.5 % Please note range changes. Performed By: #### L 500.4050, L100.0100 #### [facility] [address] [place], [address] CBC W/Diff, Automatedon 10-0 -2023 Absolute Lymph 0.82 X10 3/uL Low 0.83-4.51 [facility] Comment on above: Performed By: #### L 499.0042 #### [facility] [address] [place], [address] Absolute Neut 3.5 X10 3/uL Normal 2.0-7.7 [facility] [facility] Comment on above: Performed By: #### L 499.0042 #### [facility] [address] [place], [address] Basophils/100 WBC (Bld) 1.2 % High 0-1 [facility] Comment on above: Performed By: #### L 499.0042 #### [facility] [address] [place], [address] Eosinophils/100 WBC (Bld) 4.5 % Normal 0-5 [facility] Comment on above: Performed By: #### L 499.0042 #### [facility] [address] [place], [address] Erythrocyte distribution width (RBC) [Ratio] 13.3 % Normal 11.6-14.6 [facility] Comment on above: Performed By: #### L 499.0042 #### [facility] [address] [place], [address] Hematocrit (Bld) [Volume fraction] 45.6 % Normal 40-54 [facility] Comment on above: Performed By: #### L 499.0042 #### [facility] [address] [place], [address] Hemoglobin (Bld) [Mass/Vol] 14.4 g/dL Normal 13.0-16.5 [facility] Comment on above: Performed By: #### L 499.0042 #### [facility] [address] [place], [address] IG% 0.600 Normal 0.0-0.9 [facility] Comment on above: Result Comment: IG% - Immature Granulocytes (promyelocytes, myelocytes and metamyelocytes) > 1% indicates that a LEFT SHIFT is Present. Performed By: #### L 499.0042 #### [facility] [address] [place], [address] Lymphocytes/100 WBC (Bld) 16.1 % Low 19-41 [facility] Comment on above: Performed By: #### L 499.0042 #### [facility] [address] [place], [address] MCH (RBC) [Entitic mass] 29.9 pg Normal 27.0-32.0 [facility] Comment on above: Performed By: #### L 499.0042 #### [facility] [address] [place], [address] MCHC (RBC) [Mass/Vol] 31.6 g/dL Low 32-36 [facility] Comment on above: Performed By: #### L 499.0042 #### [facility] [address] [place], [address] MCV (RBC) [Entitic vol] 94.8 fL High 80-94 [facility] Comment on above: Performed By: #### L 499.0042 #### [facility] [address] [place], [address] Monocytes/100 WBC (Bld) 8.1 % Normal 0-10 [facility] Comment on above: Performed By: #### L 499.0042 #### [facility] [address] [place], [address] Neutrophils/100 WBC (Bld) 69.5 % Normal 47-70 [facility] Comment on above: Performed By: #### L 499.0042 #### [facility] [address] [place], [address] Nucleated RBC (Bld) [#/Vol] 0 10*3/uL Normal 0-5 [facility] Comment on above: Performed By: #### L 499.0042 #### [facility] [address] [place], [address] Platelet mean volume (Bld) [Entitic vol] 10.5 fL Normal 6.2-12.0 [facility] Comment on above: Performed By: #### L 499.0042 #### [facility] [address] [place], [address] Platelets (Bld) [#/Vol] 161 10*3/uL Normal 150-450 [facility] Comment on above: Performed By: #### L 499.0042 #### [facility] [address] [place], [address] RBC (Bld) [#/Vol] 4.81 10*6/uL Normal 4.6-6.2 [facility] Comment on above: Performed By: #### L 499.0042 #### [facility] [address] [place], [address] RDW SD 46.3 fl High 35.1-43.9 [facility] Comment on above: Performed By: #### L 499.0042 #### [facility] [address] [place], [address] WBC (Bld) [#/Vol] 5.1 10*3/uL Normal 4.4-11.0 [facility] Comment on above: Performed By: #### L 499.0042 #### [facility] [address] [place], [address] Comprehensive Metabolic Prof ilon 04-25-2024 Albumin [Mass/Vol] 3.5 g/dL Normal 3.2-5.0 [facility] Comment on above: Order Comment: N Performed By: #### L 499.0042 #### [facility] [address] [place], [address] Albumin/Globulin [Mass ratio] 1.0 {ratio} Normal 0.9-2.4 [facility] Comment on above: Order Comment: N Performed By: #### L 499.0042 #### [facility] [address] [place], [address] ALK P 108 U/L Normal 45-117 [facility] Comment on above: Order Comment: N Performed By: #### L 499.0042 #### [facility] [address] [place], [address] ALT [Catalytic activity/Vol] 20 U/L Normal 16-61 [facility] Comment on above: Order Comment: N Performed By: #### L 499.0042 #### [facility] [address] [place], [address] AST [Catalytic activity/Vol] 21 U/L Normal 15-37 [facility] Comment on above: Order Comment: N Performed By: #### L 499.0042 #### [facility] [address] [place], [address] Bilirubin [Mass/Vol] 0.60 mg/dL Normal 0.20-1.[address] [facility] Comment on above: Order Comment: N Result Comment: For patients on eltrombopag therapy, use of Dimension [place] TBIL is not recommended. Performed By: #### L 499.0042 #### [facility] [address] [place], [address] BUN/CRE 15.1 RATIO Normal 10-20 [facility] Comment on above: Order Comment: N Performed By: #### L 499.0042 #### [facility] [address] [place], [address] CA,Total 9.7 mg/dL Normal 8.5-10.1 [facility] Comment on above: Order Comment: N Performed By: #### L 499.0042 #### [facility] [address] [place], [address] Chloride [Moles/Vol] 105 mmol/L Normal 98-[address] [facility] Comment on above: Order Comment: N Performed By: #### L 499.0042 #### [facility] [address] [place], [address] CO2 [Moles/Vol] 28.0 mmol/L Normal 21.0-32.0 [facility] Comment on above: Order Comment: N Performed By: #### L 499.0042 #### [facility] [address] [place], [address] Creatinine [Mass/Vol] 1.26 mg/dL Normal 0.70-1.30 [facility] Comment on above: Order Comment: N Result Comment: The validity of the calculated GFR GFRAA in patients over 70 years has not been determined. Clinical correlation is essential. Performed By: #### L 499.0042 #### [facility] [address] [place], [address] EST GFR - AA 70 mL/min Normal >60 [facility] Comment on above: Order Comment: N Result Comment: Afri can Slovak GFR Calc Performed By: #### L 499.0042 #### [facility] [address] [place], [address] GAP 5 Normal 5-15 [facility] Comment on above: Order Comment: N Performed By: #### L 499.0042 #### [facility] [address] [place], [address] GFR/1.73 sq M.predicted among non-blacks MDRD (S/P/Bld) [Vol rate/Area] 58 mL/min/{1.73_m2} Low >60 [facility] Comment on above: Order Comment: N Result Comment: Non- GFR Calc Performed By: #### L 499.0042 #### [facility] [address] [place], [address] Globulin (S) [Mass/Vol] 3.5 g/dL Normal 2.2-4.2 [facility] Comment on above: Order Comment: N Performed By: #### L 499.0042 #### [facility] [address] [place], [address] Glucose [Mass/Vol] 117 mg/dL High 74-106 [facility] Comment on above: Order Comment: N Result Comment: Fast ing Glucose result from 100 to 125 mg/dL suggests IMPAIRED HOMEOSTASIS per A.D.A. criteria. Performed By: #### L 499.0042 #### [facility] [address] [place], [address] Potassium [Moles/Vol] 4.0 mmol/L Normal 3.5-5.1 [facility] Comment on above: Order Comment: N Performed By: #### L 499.0042 #### [facility] [address] [place], [address] Sodium [Moles/Vol] 137 mmol/L Normal 136-145 [facility] Comment on above: Order Comment: N Performed By: #### L 499.0042 #### [facility] [address] [place], [address] T PROT 7.0 g/dL Normal 6.4-8.2 [facility] Comment on above: Order Comment: N Performed By: #### L 499.0042 #### [facility] [address] [place], [address] Urea nitrogen [Mass/Vol] 19 mg/dL High 7-18 [facility] Comment on above: Order Comment: N Performed By: #### L 499.0042 #### [facility] [address] [place], [address] Lipid Profileon 04-25-2024 Cholesterol [Mass/Vol] 216 mg/dL High 200 [facility] Comment on above: Order Comment: N Result Comment: <200 mg/dL Desirable 200-240 mg/dL Borderline >240 mg/dL High Risk Performed By: #### L 499.0042 #### [facility] [address] [place], [address] Cholesterol in HDL [Mass/Vol] 74 mg/dL Normal [facility] Comment on above: Order Comment: N Result Comment: The drugs N-Acetylcysteine and Metamizole may falsely depress this assay. Reference Range HDL <40 mg/dL Low HDL Cholesterol HDL >or= 60 mg/dL High HDL Cholesterol Performed By: #### L 499.0042 #### [facility] [address] [place], [address] Cholesterol in LDL [Mass/Vol] 103 mg/dL Normal 0-130 [facility] Comment on above: Order Comment: N Performed By: #### L 499.0042 #### [facility] [address] [place], [address] Cholesterol in VLDL [Mass/Vol] 39 mg/dL Normal 5-40 [facility] Comment on above: Order Comment: N Performed By: #### L 499.0042 #### [facility] [address] [place], [address] Triglyceride [Mass/Vol] 196 mg/dL Normal [facility] Comment on above: Order Comment: N Result Comment: The drugs N-Acetylcysteine and Metamizole may falsely depress this assay. Serum Triglycerides Reference Interval Normal <150 mg/dL Borderline high 150 - 199 mg/dL High 200 - 499 mg/dL Very High > or = 500 mg/dL Performed By: #### L 499.0042 #### [facility] [address] [place], [address] T4 Free Directon 04-25-2024 T4 FREE DIRECT 0.64 ng/dL Low 0.76-1.46 [facility] Comment on above: Order Comment: N Performed By: #### L 499.0042 #### [facility] [address] [place], [address] Thyroid Stim Hormone (TSH)on 04-25-2024 TSH 9.250 uIU/mL High 0.358-3.740 [facility] Comment on above: Order Comment: N Performed By: #### L 499.0042 #### [facility] [address] [place], [address] Vitamin B12on 04-25-2024 Cobalamin (Vitamin B12) [Mass/Vol] 327 pg/mL Normal 211-911 [facility] Comment on above: Performed By: #### L 499.0042 #### [facility] [place], [address] Vital Signs Date Time Vital Sign Value Performing Clinician Osei jimenez 12-31-2024 20:58-0400 Body temperature 97.8 [degF] Dr. Alberto Mustafa MD Work Phone: [facility] 12-31-2024 20:58-0400 Diastolic blood pressure 74 mm[Hg] Dr. Alberto Mustafa MD Work Phone: [facility] 12-31-2024 20:58-0400 Heart rate 89 /min Dr. Alberto Mustafa MD Work Phone: 5(722)[phone] [place] [address] 12-31-2024 20:58-0400 Respiratory rate 16 /min Dr. Alberto Mustafa MD Work Phone: 8(557)[phone] [place] [address] 12-31-2024 20:58-0400 SaO2% (BldA) [Mass fraction] 96 % Dr. Alberto Mustafa MD Work Phone: [facility] 12-31-2024 20:58-0400 Systolic blood pressure 112 mm[Hg] Dr. Alberto Mustafa MD Work Phone: [facility] 12-31-2024 19:02-0400 Body mass index (BMI) [Ratio] 28 kg/m2 Dr. Alberto Mustafa MD Work Phone: [facility] 12-31-2024 19:02-0400 Body weight 101.[address] Alberto Mustafa MD Work Phone: [facility] 12-31-2024 15:46-0400 Body height 190.[address] Alberto Mustafa MD Work Phone: [facility] 12-31-2024 11:30-0400 Body temperature 98.6 [degF] Dr. Alberto Mustafa MD Work Phone: [facility] 12-31-2024 11:30-0400 Respiratory rate 16 /min Dr. Alberto Mustafa MD Work Phone: [facility] 12-24-2024 09:23-0400 Diastolic blood pressure 63 mm[Hg] Dr. Alberto Mustafa MD Work Phone: [facility] 12-24-2024 09:23-0400 Heart rate 72 /min Dr. Alberto Mustafa MD Work Phone: [facility] 12-24-2024 09:23-0400 Systolic blood pressure 124 mm[Hg] Dr. Alberto Mustafa MD Work Phone: 7(458)[phone] [place] [address] 12-03-2024 13:22-0400 Body temperature 97 [degF] Dr. Alberto Mustafa MD Work Phone: 0(049)[phone] [place] [address] 12-03-2024 13:22-0400 Diastolic blood pressure 68 mm[Hg] Dr. Alberto Mustafa MD Work Phone: 0(331)[phone] [place] [address] 12-03-2024 13:22-0400 Heart rate 78 /min Dr. Alberto Mustafa MD Work Phone: 7(989)[phone] [place] [address] 12-03-2024 13:22-0400 Respiratory rate 18 /min Dr. Alberto Mustafa MD Work Phone: [facility] 12-03-2024 13:22-0400 Systolic blood pressure 133 mm[Hg] Dr. Alberto Mustafa MD Work Phone: [facility] 10-21-2024 00:35-0400 Body temperature 96.7 [degF] Dr. Alberto Mustafa MD Work Phone: [facility] 10-21-2024 00:35-0400 Diastolic blood pressure 54 mm[Hg] Dr. Alberto Mustafa MD Work Phone: [facility] 10-21-2024 00:35-0400 Heart rate 59 /min Dr. Alberto Mustafa MD Work Phone: [facility] 10-21-2024 00:35-0400 Respiratory rate 18 /min Dr. Alberto Mustafa MD Work Phone: [facility] 10-21-2024 00:35-0400 Systolic blood pressure 161 mm[Hg] Dr. Alberto Mustafa MD Work Phone: [facility] 10-15-2024 12:16-0400 Body temperature 96.7 [degF] Dr. Alberto Mustafa MD Work Phone: [facility] 10-15-2024 12:16-0400 Diastolic blood pressure 54 mm[Hg] Dr. Alberto Mustafa MD Work Phone: [facility] 10-15-2024 12:16-0400 Heart rate 59 /min Dr. Alberto Mustafa MD Work Phone: [facility] 10-15-2024 12:16-0400 Respiratory rate 18 /min Dr. Alberto Mustafa MD Work Phone: [facility] 10-15-2024 12:16-0400 Systolic blood pressure 161 mm[Hg] Dr. Alberto Mustafa MD Work Phone: [facility] 09-19-2024 16:34-0500 Body temperature 97.9 [degF] Dr. Alberto Mustafa MD Work Phone: [facility] 09-19-2024 16:34-0500 Diastolic blood pressure 74 mm[Hg] Dr. Alberto Mustafa MD Work Phone: [facility] 09-19-2024 16:34-0500 Heart rate 65 /min Dr. Alberto Mustafa MD Work Phone: [facility] 09-19-2024 16:34-0500 Respiratory rate 16 /min Dr. Alberto Mustafa MD Work Phone: [facility] 09-19-2024 16:34-0500 SaO2% (BldA) [Mass fraction] 96 % Dr. Alberto Mustafa MD Work Phone: [facility] 09-19-2024 16:34-0500 Systolic blood pressure 133 mm[Hg] Dr. Alberto Mustafa MD Work Phone: [facility] 09-19-2024 06:00-0500 Body mass index (BMI) [Ratio] 23.6 kg/m2 Dr. Alberto Mustafa MD Work Phone: [facility] 09-19-2024 06:00-0500 Body weight [address] Alberto Mustafa MD Work Phone: [facility] 09-17-2024 10:45-0500 Body height 190.[address] Alberto Mustafa MD Work Phone: [facility] Encounters Encounter Date Encounter Type Care Provider Facility Start: 12-31-2024 End: 12-31-2024 Emergency department patient visit Dr. Alberto Mustafa MD Work Phone: -Emergency Department Work Phone: Start: 12-31-2024 ambulatory [facility] Facility: [facility] Start: 12-31-[address] Jaden bucio DPM -[facility] Work Phone: Start: 12-17-2024 ambulatory [facility] Facility: [facility] Start: 12-17-[address] Michael matta MD -[facility] [employer] Work Phone: Start: 12-16-2024 ambulatory [facility] Facility: [facility] Start: 12-16-[address] [facility] Start: 12-03-2024 End: 12-20-[address] Alberto Mustafa MD Work Phone: [facility] Work Phone: Start: 12-03-2024 End: 12-20-[address] Jaden Forman DPM -Wound Healing [facility] Work Phone: Start: 12-03-[address] Jaden bucio DPM -[facility] Work Phone: Start: 11-26-2024 End: 11-26-[address] Michael Muller [place] [facility] Work Phone: Start: 11-26-[address] Michael Moreno [facility] [employer] [employer] Work Phone: Start: 11-26-2024 End: 11-26-2024 ambulatory [facility] Facility:[facility] Start: 11-24-2024 End: 11-24-[address] Michael Mull[facility] [place] Work Phone: Start: 11-24-[address] Michael Muller [place] Work Phone: Start: 11-24-2024 End: 11-24-2024 ambulatory [facility] Facility:[facility] Start: 11-05-2024 End: 11-05-[address] Alberto Mustafa MD Work Phone: [facility] Work Phone: Start: 11-05-2024 End: 11-05-[address] Michael Mull[facility] [place] Work Phone: Start: 11-05-[address] Michael Moreno [facility] [place] Work Phone: Start: 11-05-2024 End: 11-05-2024 ambulatory [facility] Facility:[facility] Start: 10-27-2024 End: 10-27-[address] Alberto Mustafa MD Work Phone: [facility] Work Phone: Start: 10-27-2024 End: 10-27-[address] Michael Mull[place] Work Phone: Start: 10-27-2024 End: 10-27-2024 ambulatory [facility] Facility:[facility] Start: 10-22-2024 End: 11-19-[address] Jaden Forman DPM -[facility] Healing Ce nter Work Phone: Start: 10-22-[address] Jaden bucio DPM -[facility] Work Phone: Start: 10-22-2024 End: 11-19-2024 ambulatory [facility] Facility:[facility] Start: 10-15-2024 End: 10-20-[address] Alberto Mustafa MD Work Phone: [facility] Work Phone: Start: 10-15-2024 End: 10-20-[address] Jaden ATWOODM -[facility] He[facility] Ce [facility]ter Work Phone: Start: 09-24-2024 End: 09-24-[address] Alberto Mustafa MD Work Phone: [facility] Work Phone: Start: 09-24-2024 End: 09-24-[address] Michael Meeks MD -[facility] [place] Work Phone: Start: 09-24-[address] Michael matta MD -[facility] [place] Work Phone: Start: 09-24-2024 End: 09-24-2024 ambulatory [facility] Facility:[facility] Start: 09-22-2024 End: 09-22-[address] Alberto Mustafa MD Work Phone: [facility] Work Phone: Start: 09-22-2024 End: 09-22-[address] Michael Meeks MD -[facility] [place] Work Phone: Start: 09-22-[address] Michael matta MD -[facility] [place] Work Phone: Start: 09-22-2024 End: 09-22-2024 ambulatory [facility] Facility:[facility] Start: 09-19-2024 Non-patient / Non-visit Dr. Demetrius Barreto DO [facility] Work Phone: Start: 09-18-2024 Non-patient / Non-visit Dr. Demetrius Barreto DO [facility] Work Phone: Start: 09-17-2024 Non-patient / Non-visit Dr. Demetrius Barreto DO [facility] Work Phone: Start: 09-17-2024 ambulatory Alberto Mustafa Facilit y:[facility] Start: 09-17-2024 Non-patient / Non-visit Dr. Grace Lockhart MD -[facility] Start: 09-16-2024 End: 09-19-2024 ambulatory Altaf Meeks Facility:[facility] Start: 09-16-2024 End: 09-19-2024 Evaluation and management of inpatient Dr. Demetrius Nash DO -[facility] Work Phone: Start: 09-16-2024 End: 09-16-[address] Alberto Mustafa MD -Laboratory, [facility] Start: 09-16-2024 End: 09-16-2024 ambulatory Alberto Mustafa Facility:[facility] Start: 07-22-2024 End: 07-22-[address] Alberto Mustafa MD -Laboratory, [facility] Start: 07-22-2024 End: 07-22-2024 ambulatory Alberto Mustafa Facility:[facility] Start: 07-03-2024 End: 07-03-[address] Alberto Mustafa MD -Laboratory, [facility] Start: 07-03-2024 End: 07-03-2024 ambulatory Alberto Mustafa Facility:[facility] Start: 05-29-2024 End: 05-29-2024 ambulatory Alberto Mustafa Facility:[facility] Start: 05-01-2024 End: 05-01-2024 ambulatory Alberto Mustafa Facility:[facility] Start: 04-25-2024 End: 04-25-2024 ambulatory Alberto Mustafa Facility:[facility] Procedures Date Procedure Procedure Detail Performing [...] Date Care Activity Detail Author Start: 12-31-2024 [facility] Start: 09-19-2024 Patient discharge [facility] Start: 09-16-2024 Consultation for treatment [facility] Start: 09-16-2024 Following clinical p athway protocol [facility] Start: 09-16-2024 Assessment of risk o f venous thromboembolism [facility] Start: 09-16-2024 Insertion of cathete r into peripheral vein [facility] Start: 09-16-2024 Measuring intake and output [facility] Start: 09-16-2024 Oxygen therapy [facility] Start: 09-16-2024 Providing care accor ding to standard [facility] Start: 09-16-2024 Provision of activit y privileges [facility] Start: 09-16-2024 Referral to occupati onal therapist [facility] Start: 09-16-2024 Referral to service [facility] Start: 09-16-2024 [facility] Start: 09-16-2024 Admission procedure [facility] Start: 09-16-2024 [facility] Start: 09-16-2024 Referral to service [facility] Start: 09-16-2024 [facility] Start: 09-16-2024 Patient referral to dietitian [facility] Patient Education ED Skin Tear ( Skin Avulsion) [facility] Work Phone: Patient referral [facility] Work Phone: Immunizations Immunization Date Immunization Notes Care Provider Fa mina 12-31-2024 tetanus toxoid, redu jean pierre diphtheria toxoid, and acellular pertussis vaccine, adsorbed Dr. Alberto Mustafa MD Work Phone: [facility] Payers Date Payer Category Payer Medicare [id number] [id number] Self-pay 2024 Unknown [id number] Unknown [id number] 2.16.8 [id number] Unknown [id number] 2.16.8 40.1.206946.3.579.2.462 Unknown [id number] 2.16.8 40.1.408212.3.579.2.462 Unknown [id number] 2.16.8 40.1.284283.3.579.2.462 Unknown [id number] 2.16.8 40.1.867974.3.579.2.462 Unknown [id number] 2.16.8 40.1.714509.3.579.2.462 Unknown [id number] 2.16.8 40.1.571601.3.579.2.462 Unknown [id number] 2.16.8 40.1.551271.3.579.2.462 Unknown [id number] 2.16.8 40.1.802418.3.579.2.462 Unknown [id number] 2.16.8 40.1.674691.3.579.2.462 Unknown [id number] 2.16.8 40.1.761435.3.579.2.462 Unknown [id number] 2.16.8 40.1.971513.3.579.2.462 Unknown [id number] 2.16.8 40.1.385123.3.579.2.462 Unknown [id number] 2.16.8 40.1.863528.3.579.2.462 Unknown [id number] 2.16.8 40.1.992012.3.579.2.462 Unknown [id number] 2.16.8 40.1.114366.3.579.2.462 Unknown [id number] 2.16.8 40.1.979827.3.579.2.462 Unknown [id number] 2.16.8 40.1.243423.3.579.2.462 Unknown [id number] 2.16.8 40.1.079257.3.579.2.462 Unknown [id number] 2.16.8 40.1.289248.3.579.2.462 Unknown [id number] 2.16.8 40.1.092491.3.579.2.462 Unknown [id number] 2.16.8 40.1.315381.3.579.2.462 Unknown [id number] 2.16.8 40.1.807076.3.579.2.462 Unknown [id number] 2.16.8 40.1.240841.3.579.2.462 Social History Date Type Detail Facility Start: 09-16-2024 End: 12-31-2024 Tobacco smoking status NHIS Never smoked tobacco (finding) [facility] Start: 10-21-2024 End: 11-18-2024 Sex Male (finding) [facility] Start: 1935 Sex Assigned At Male [facility] Goals Date Patient Goal Desired Activity /State Functional Status Date Assessment Result Facility 09-19-2024 Functional status Assist with Urinal [facility] Work Phone: Mental Status Date Assessment Result Facility 09-19-2024 Cognitive function Voice/Name A[place]e Byr[facility] Work Phone: Clinical Notes 09-16-2024 to 12-03-2024 Note Date & Type Note Facility 12-03-2024 Progress note Note Date/Time December 03, 2024 2:36pm [facility] [address] [place] [address] Progress Note - Wound Care 12/03/24 1433 MR#: [id number] Acct: [id number] Name: GANESH FLORES Rep #:[id number] : [id number] 89 From: Jaden MONAHAN PCP: [...] Date Recorded By Document 11/26/24 13:16 KW [id number] 11/26/24 13:25 KW Document 12/03/24 13:22 PR [id number] 12/03/24 13:29 PR 11/26/24 12/03/24 13:16 13:22 - Today's Visit Information Type of service Follow-up Visit Follow-up Visit (Physician/CABLE TESTER (Physician/CABLE TESTER ) ) Arrival Mode Ambulatory, Ambulatory, Walker [...] Date Recorded By Document 11/26/24 13:16 KW [id number] 11/26/24 13:25 KW Document 12/03/24 13:22 PR [id number] 12/03/24 13:29 PR 11/26/24 12/03/24 13:16 13:22 Wound Center Nurse [...] Large (67-100%) Medium (34-66%) -Granulation Quality Red Pale,[place] -Necrosis Amt Medium (34-66%) -Necrotic Tissue Type [...] Recorded Date Recorded By Document 11/26/24 13:30 [id number] 11/26/24 13:36 Document 12/03/24 13:52 [id number] 12/03/24 13:54 11/26/24 12/03/24 13:30 13:52 Wound [...] Recorded Date Recorded By Document 11/26/24 13:51 PR [id number] 11/26/24 13:53 PR Document 12/03/24 14:07 PR [id number] 12/03/24 14:11 PR 11/26/24 12/03/24 13:51 14:07 Wound Care Center [...] Patient will follow-up in 1 week 12/03/24 3228 <Electronically signed by Jaden Forman DPM> Cosigner Signature (if applicable): CC: ~ Signed [facility] Work Phone: 1(961) 710-666605-14-2025 Progress note [facility] [address] [place] [address] Progress Note - Wound Care 12/03/24 1433 MR#: [id number] Acct: [id number] Name: GANESH FLORES Rep #:[id number] : 1935 89 From: Jaden MONAHAN PCP: [...] Date Recorded By Document 11/26/24 13:16 KW [id number] 11/26/24 13:25 KW Document 12/03/24 13:22 PR [id number] 12/03/24 13:29 PR 11/26/24 12/03/24 13:16 13:22 - Today's Visit Information Type of service Follow-up Visit Follow-up Visit (Physician/CABLE TESTER (Physician/CABLE TESTER ) ) Arrival Mode Ambulatory, Ambulatory, Walker [...] Date Recorded By Document 11/26/24 13:16 KW [id number] 11/26/24 13:25 KW Document 12/03/24 13:22 MT [id number] 12/03/24 13:29 MT 11/26/24 12/03/24 13:16 13:22 [...] Large (67-100%) Medium (34-66%) -Granulation Quality Red Pale,[place] -Necrosis Amt Medium (34-66%) -Necrotic Tissue Type [...] Recorded Date Recorded By Document 11/26/24 13:30 [id number] 11/26/24 13:36 Document 12/03/24 13:52 [id number] 12/03/24 13:54 11/26/24 12/03/24 13:30 13:52 Wound [...] Recorded Date Recorded By Document 11/26/24 13:51 PR [id number] 11/26/24 13:53 PR Document 12/03/24 14:07 PR [id number] 12/03/24 14:11 PR 11/26/24 12/03/24 13:51 14:07 Wound Care Center [...] Cosigner Signature (if applicable): CC: ~ Signed [facility]05-07-2025 Progress note Author Jaden Forman [facility] Note Date/Time November 26, 2024 1:47pm [facility] [address] [place] [address] Progress Note - Wound Care 11/26/24 1344 MR#: [id number] Acct: [id number] Name: GANESH FLORES JAX Rep #:[id number] : 1935 88 From: Jaden Sabillon PM [...] Date Recorded By Document 11/26/24 13:16 KW [id number] 11/26/24 13:25 KW 11/26/24 13:16 WC - Today's Visit Information Type of service Follow-up Visit (Physician/CABLE TESTER ) Arrival Mode Ambulatory, Walker Patient Identification [...] Date Recorded By Document 11/26/24 13:16 KW [id number] 11/26/24 13:25 KW 11/26/24 13:16 Wound Center [...] Date Recorded By Document 11/26/24 13:30 CAYLA [id number] 11/26/24 13:36 CAYLA 11/26/24 13:30 Wound Center [...] Cosigner Signature (if applicable): CC: ~ Signed [facility] Work Phone: 1(265) 937-108205-07-2025 Progress note [facility] [address] [place] [id number] Progress Note - Wound Care 11/26/24 1344 MR#: [id number] Acct: [id number] Name: GANESH FLORES Rep #:[id number] : 1935 88 From: Jaden MONAHAN PCP: [...] Date Recorded By Document 11/26/24 13:16 KW [id number] 11/26/24 13:25 11/26/24 13:16 - Today's Visit Information Type of service Follow-up Visit (Physician/CABLE TESTER ) Arrival Mode Ambulatory, Walker Patient Identification [...] Date Recorded By Document 11/26/24 13:16 RIVAS [id number] 11/26/24 13:25 11/26/24 13:16 Wound Center Nurse [...] Date Recorded By Document 11/26/24 13:30 JF [id number] 11/26/24 13:36 JF 11/26/24 13:30 Wound Center [...] Cosigner Signature (if applicable): CC: ~ Signed [facility]03-29-2025 Progress note Author Jaden Forman [facility] Note Date/Time October 18, 2024 8:2 7pm [facility] [address] [place] [address] Progress Note - Wound Care 10/18/242022 MR#: [id number] Acct: [id number] Name: GAENSH FLORES Rep #:[id number] : 1935 88 From: Jaden MONAHAN PCP: Dr. Alberto Mustafa MD [facility] Location: History of Present Illness Date of [...] Date Recorded By Document 10/08/24 11:57 MT [id number] 10/08/24 12:07 MT Document 10/15/24 12:16 KW [id number] 10/15/24 12:20 KW 10/08/24 10/15/24 11:57 12:16 - Today's Visit Information Type of service Initial Visit Follow-up Visit (Physician/CABLE TESTER ) Arrival Mode Ambulatory, Ambulatory, Walker Walker [...] Recorded Date Recorded By Document 10/08/24 11:57 PR [id number] 10/08/24 12:07 MT Document 10/15/24 12:16 KW [id number] 10/15/24 12:20 KW 10/08/24 10/15/24 11:57 12:16 [...] Amt Medium (34-66%) Small (1-33%) -Granulation Quality Pale,[place] -Necrosis Amt Medium (34-66%) Small (1-33%) -Necrotic [...] Recorded Date Recorded By Document 10/08/24 12:21 [id number] 10/08/24 12:25 Document 10/15/24 12:53 [id number] 10/15/24 12:55 10/08/24 10/15/24 12:21 12:53 Wound [...] 0000 10/08/24 15:07 Document 10/15/24 13:07 KW [id number] 10/15/24 13:07 10/08/24 10/15/24 15:07 13:07 Wound [...] Cosigner Signature (if applicable): CC: ~ Signed [facility] Work Phone: 1(440) 428-814903-29-2025 Progress note [facility] [address] [place] [address] Progress Note - Wound Care 10/18/242022 MR#: [id number] Acct: [id number] Name: GANESH FLORES Rep #:[id number] : 1935 88 From: Jaden MONAHAN PCP: [...] Recorded Date Recorded By Document 10/08/24 11:57 PR [id number] 10/08/24 12:07 MT Document 10/15/24 12:16 [id number] 10/15/24 12:20 10/08/24 10/15/24 11:57 12:16 - Today's Visit Information Type of service Initial Visit Follow-up Visit (Physician/CABLE TESTER ) Arrival Mode Ambulatory, Ambulatory, Walker Walker [...] Recorded Date Recorded By Document 10/08/24 11:57 PR [id number] 10/08/24 12:07 MT Document 10/15/24 12:16 KW [id number] 10/15/24 12:20 KW 10/08/24 10/15/24 11:57 12:16 [...] Amt Medium (34-66%) Small (1-33%) -Granulation Quality Pale,[place] -Necrosis Amt Medium (34-66%) Small (1-33%) -Necrotic [...] Recorded Date Recorded By Document 10/08/24 12:21 [id number] 10/08/24 12:25 Document 10/15/24 12:53 [id number] 10/15/24 12:55 10/08/24 10/15/24 12:21 12:53 Wound [...] 0000 10/08/24 15:07 Document 10/15/24 13:07 KW [id number] 10/15/24 13:07 KW 10/08/24 10/15/24 15:07 13:07 [...] Cosigner Signature (if applicable): CC: ~ Signed [facility]03-20-2025 History and physical note Author Jaden Forman [facility] Note Date/Time October 09, 2024 3:0 9pm [facility] [address] [place] [address] H&P Exam - Wound Care 10/09/24 1419 MR#: [id number] Acct: [id number] Name: GANESH FLORES Rep #:[id number] : 1935 88 From: Jaden Forman D [...] was seen by emergency room department at [facility] and evaluated and discharged. He states the wound has been present but does not know how long. He denies any trauma to the area. Denies constitutional symptoms. No other pedal complaints at this time. [facility] Medical History Agitation due to dementia Closed [...] Start: 10/08/24 11:57 Freq: Status: Active Protocol: .LOWEXNrua Activity Type Activity Date Activity User E-sign Co-sign Detail Recorded Client Recorded Date Recorded By Document 10/08/24 11:57 PR [id number] 10/08/24 12:07 PR 10/08/24 11:57 - Today's Visit Information Type [...] Recorded Date Recorded By Document 10/08/24 11:57 PR [id number] 10/08/24 12:07 PR 10/08/24 11:57 Wound Center Nurse 1 Left [...] Under -Granulation Amt Medium (34-66%) -Granulation Quality Pale,[place] -Necrosis Amt Medium (34-66%) -Necrotic Tissue Type [...] Recorded Date Recorded By Document 10/08/24 12:21 [id number] 10/08/24 12:25 10/08/24 12:21 Wound Center Nurse [...] will continue weekly wound care here at [facility]. Patient was grateful for his care. He will continue to ambulate as tolerated with a walker. Patient will follow-up in 1 week 10/09/24 0288 <Electronically signed by Jaden Forman DPM> Cosigner Signature (if applicable): CC: ~ Signed [facility] Work Phone: 1(808) 930-365603-20-2025 History and physical note [facility] [address] [place] [address] H&P Exam - Wound Care 10/09/24 1419 MR#: [id number] Acct: [id number] Name: GANESH FLORES Rep #:[id number] : 1935 88 From: Jaden MONAHAN PCP: [...] was seen by emergency room department at [facility] and evaluated and discharged. He states the wound has been present but does not know how long. He denies any trauma to the area. Denies constitutional symptoms. No other pedal complaints at this time. [facility] Medical History Agitation due to dementia Closed [...] Recorded Date Recorded By Document 10/08/24 11:57 PR [id number] 10/08/24 12:07 PR 10/08/24 11:57 - Today's Visit Information Type [...] Recorded Date Recorded By Document 10/08/24 11:57 PR [id number] 10/08/24 12:07 PR 10/08/24 11:57 Wound Center Nurse 1 Left [...] Under -Granulation Amt Medium (34-66%) -Granulation Quality Pale,[place] -Necrosis Amt Medium (34-66%) -Necrotic Tissue Type [...] Recorded Date Recorded By Document 10/08/24 12:21 [id number] 10/08/24 12:25 10/08/24 12:21 Wound Center Nurse [...] andwill continue weekly wound care here at [facility]. Patient was grateful for his care. He will continue to ambulate as tolerated with a walker. Patient will follow-up in 1 week 10/09/24 1504 Cosigner Signature (if applicable): CC: ~ Signed [facility]02-28-2025 [facility] Medical Records Department [address] [place] [address] Discharge Summary 09/19/24 1447 MR#: [id number] Acct: [id number] Name: GANESH FLORES Rep #: [id number] : 1935 88 From: Demetrius Nash DO PCP: Dr. Alberto Mustafa MD Status:DIS BOY Location: [place] [address] Providers Date of Admission: 09/16/24 Date of Discharge: 09/19/24 Primary Care Physician: Dr. Alberto Mustafa MD Consultations 09/16/24 22:59 Consult: Onc/Wound/aviation safety technician Routine Comment: Reason for Consult:: ulcer on [...] was seen in the emergency room at [facility] after being brought in by his family due to increased confusion and inability to care for the patient due to his dementia. Patient was placed in observation status on [facility] 3, seen by PT and OT, and [...] Care Provider: Alberto Mustafa (more content not included)...[facility]02-25-2025 Evaluation note* Diagnosis Onset Date Resolution Status Admit Date Agitation due to dementia inactive September 16, 2024 7:21pm Closed head injury inactive 2024 7:21pm Dementia inactive September 16, 2024 7:21pm Fall inactive September 16, 2024 7:21pm Hypothyroidism inactive August 242024 7:21pm Non-pressure chronic ulcer o f other part of left foot with fat layer exposed chronic October 15 12:15pm [facility] Work Phone: 1([phone]) 798-103102-25-2025 Evaluation note* Diagnosis Onset Date Resolution Status [...] layer exposed chronic December 03, 2024 1:15pm [facility] Work Phone: 1([phone]) 740-576002-25-2025 Evaluation note* Diagnosis Onset Date Resolution Status [...] of bone chronic December 31, 2024 11:00am [facility] Work Phone: Reason for referral (narrative)No reason for [facility] Phone: Chief Complaint and Reason for Visit Chief Complaint Admit Date WORSENING DEMENTIA AND RECENT FALL Febru song2024 7:21pm WORSENING DEMENTIA AND RECENT FALL Febru song2024 4:02pm WORSENING DEMENTIA AND RECENT FALL Febru 2024 6:37pm WORSENING DEMENTIA AND RECENT FALL Febru song 2024 2:47pm LABWORK September 22, 2024 5:00 am SKILLED NURSING LAB WORK September 24, 2024 5: 00am [...] 2:47pm LABWORK September 22, 2024 5:00 am SKILLED NURSING LAB WORK September 24, 2024 5: 00am [...] 2:47pm LABWORK September 22, 2024 5:00 am SKILLED NURSING LAB WORK September 24, 2024 5: 00am WOUND- LEFT FOOT October 15, 2024 12: 15pm WOUND- LEFT FOOT October 22, 2024 12:4 2pm LABWORK October 27, 2024 5:00 am SKILLED NURSING LAB WORK November 05, 2024 5 :00am [...] 2:47pm LABWORK September 22, 2024 5:00 am SKILLED NURSING LAB WORK September 24, 2024 5: 00am WOUND- LEFT FOOT October 15, 2024 12: 15pm WOUND- LEFT FOOT October 22, 2024 12:4 2pm LABWORK October 27, 2024 5:00 am SKILLED NURSING LAB WORK November 05, 2024 5 :00am [...] 2:47pm LABWORK September 22, 2024 5:00 am SKILLED NURSING LAB WORK September 24, 2024 5: 00am WOUND- LEFT FOOT October 15, 2024 12: 15pm WOUND- LEFT FOOT October 22, 2024 12:4 2pm LABWORK October 27, 2024 5:00 am SKILLED NURSING LAB WORK November 05, 2024 5 :00am SKILLED NURSING LAB WORK November 24, 2024 5:00 am LABWORK November 26, 2024 5:00am WOUND- LEFT FOOT December 03, 2024 1:15p m SKILLED NURSING LAB WORK December 16, 2024 4:0 0am SKILLED NURSING LAB WORK December 17, 2024 5:0 0am [...] Do you have a Healthcare Power of Flight Nurse? No September 16, 2024 9:52pm Summary Purpose [...] section and content) DATE CREATED AUTHOR 12/31/2024 [facility] FOR RECORDS PERTAINING TO PATIENTS WHO ARE [...] BE BASED ON THE PRIMARY CLINICAL RECORDS. [employer] provides no warranty or guarantee of the accuracy or completeness of information in this document.
--- NOTE | 2025-01-02 04:03 | PCM.RX.CS ---
Consult Antibiotic Management Pharmacy has been consulted to manage selected antibiotic: Vancomycin Type of Intervention Type of Consult: New start Labs Labs: Sodium 134 mmol/L (133-145) 01/01/25 15:25 Potassium 4.7 mmol/L (3.3-5.1) 01/01/25 15:25 Chloride 100 mmol/L (98-108) 01/01/25 15:25 Carbon Dioxide 20.9 mmol/L (21.0-32.0) L 01/01/25 15:25 Anion Gap 13 (5-15) 01/01/25 15:25 BUN 45 mg/dL (4-19) H 01/01/25 15:25 Creatinine 1.95 mg/dL (0.70-1.20) H 01/01/25 15:25 Est GFR (MDRD) Non-Af 32 (>60) L 01/01/25 15:25 BUN/Creatinine Ratio 23.1 RATIO (10-20) H 01/01/25 15:25 Glucose 171 mg/dL (70-99) H 01/01/25 15:25 Microbiology Microbiology: Microbiology 01/01/25 15:25 Blood Culture (Wb) - Right Forearm Blood Culture - Preliminary Dosing Weight Weight used for dosin.7 kg Estimated Creatinine Clearance Estimated Creatinine Clearance: 31.3 Goal Trough Goal Trough: 10-15 mcg/mL Pharmacy Plan for Drug Dosing Pharmacy Plan for Drug Dosing: Pharmacy Service will continue to monitor and adjust dosing as required. 2000MG GIVEN IN ER 01/01 @ 0570. START 1GM Q24H AND DRAW TROUGH PRIOR TO 3RD DOSE Follow-Up Labs Follow-Up Labs: Trough: Vancomycin Date/Time Labs Ordered Labs to be done on [date and time ordered]: 01/03 @ 3205
[2025-01-02] MEDS: Lactated Ringers 1,000 ML 75 ML IV ×2 (05:02→18:08)
[2025-01-02] MEDS: 0.9% Saline Lock 10 ML Syringe IV ×2 (05:03→14:05)
[2025-01-02 05:10] LABS: Absolute Lymphocyte Count 0.19 X10^3/uL (0.83-4.51); Absolute Neutrophil Count 11.6 X10^3/uL (2.0-7.7); Basophil# 0.03 X10^3/uL; Basophil% 0.2 % (0-1); Hemoglobin 13.2 g/dL (13.0-16.5); Lymphocyte # 0.19 X10^3/ul (0.83-4.51); Lymphocyte % 1.4 % (19-41); Mean Corp Hgb Conc 33.8 g/dL (32-36); Mean Corpuscular Volume 97.5 fL (80-94); Monocyte# 1.24 X10^3/uL; Monocyte% 9.4 % (0-10); NRBC Flagged by Analyzer 0 % (0-5); Neutrophil # 11.61 X10^3/uL (2.7-7.7); Neutrophil % 88.3 % (47-70); POSITIVE DIFFERENTIAL YES; POSITIVE MORPHOLOGY YES; Platelet Count 117 K/mm3 (150-450); RBC Distribution Width SD 46.5 fl (35.1-43.9); White Blood Count 13.2 K/mm3 (4.4-11.0)
--- NOTE | 2025-01-02 05:46 | ECHOD_ITS ---
Reason For Study Reason For Study: Endocarditis Procedure This was a 2D Doppler, Color Flow transthoracic echocardiogram. Technically difficult study; patient has dementia and was uncooperative/combative. Exam performed in department. Left Ventricle Normal left ventricle. Left ventricular systolic function is normal. The LV ejection fraction is 55 %. Right Ventricle Normal right ventricle. Normal systolic function. Atria The left atrium is mildly dilated. The right atrium is mildly dilated. Mitral Valve There is no stenosis. Moderate to severe mitral annular calcification. Trivial mitral valve insufficiency. Tricuspid Valve Normal tricuspid valve. Trivial tricuspid valve insufficiency. Aortic Valve Mild aortic stenosis. Mean/peak aortic valve gradient 20/33 mmHg YESSENIA 1.8 cm?? Aortic valve is mildly to moderately calcified Aortic valve appears tricuspid. MMode/2D Measurements & Calculations LVIDd: 4.1 cm IVSd: 1.1 cm LVOT diam: 2.1 cm LVIDs: 3.1 cm LVPWd: 1.2 cm RVDd: 4.4 cm FS: 26.2 % LVOT area: 3.6 cm2 LAV(MOD-bp): 31.9 ml SV(MOD-sp4): 33.7 ml LVAd ap4: 21.5 cm2 LAV(MOD-bp) Indexed: 14.6 ml/m2 LVLd ap4: 7.5 cm SI(MOD-sp4): 15.5 ml/m2 LAV(MOD-sp2): 35.7 ml EDV(MOD-sp4): 50.6 ml LAV(MOD-sp4): 22.1 ml EDV(sp4-el): 52.7 ml LVAs ap4: 10.8 cm2 LVLs ap4: 5.7 cm ESV(MOD-sp4): 16.9 ml ESV(sp4-el): 17.3 ml EF(MOD-sp4): 66.6 % EF(sp4-el): 67.2 % SV(sp4-el): 35.4 ml LA A4 area: 12.5 cm2 RA A4 area: 17.5 cm2 Doppler Measurements & Calculations MV E max madi: 95.1 cm/sec Lat Peak E' Madi: 7.5 cm/sec Med Peak E' Madi: 5.9 cm/sec MV A max madi: 140.4 cm/sec E/E' lat: 12.6 E/E' med: 16.1 MV E/A: 0.68 MV V2 max: 149.9 cm/sec Ao V2 max: 279.4 cm/sec LV V1 max: 140.9 cm/sec MV max P.0 mmHg Ao max P.3 mmHg LV V1 max P.0 mmHg MV V2 mean: 76.5 cm/sec Ao V2 mean: 213.4 cm/sec LV V1 mean P.7 mmHg MV mean P.7 mmHg Ao mean P.9 mmHg LV V1 mean: 103.5 cm/sec MV V2 VTI: 31.9 cm Ao V2 VTI: 44.1 cm LV V1 VTI: 22.8 cm AV (velocity ratio): 0.52 MVA(VTI): 2.6 cm2 YESSENIA(I,D): 1.9 cm2 YESSENIA(V,D): 1.8 cm2 SV(LVOT): 81.9 ml PA V2 max: 106.7 cm/sec TR max madi: 350.0 cm/sec TR max P.0 mmHg ECHO/Echo Complete Interpretation Summary Difficult study Left ventricular systolic function is normal. The LV ejection fraction is 55 %. Moderate to severe mitral annular calcification The right atrium is mildly dilated The left atrium is mildly dilated Mild aortic stenosis. Mean/peak aortic valve gradient 20/33 mmHg YESSENIA 1.8 cm?? Aortic valve is mildly to moderately calcified Aortic valve appears tricuspid Ordering Physician: Mei Mckenzie Referring Physician: Michael Meeks Performed By: Mounika Odonnell RDCS, RVT
--- NOTE | 2025-01-02 05:48 | PN.HOSP_ITS ---
Hospitalist Note I was notified by nursing staff that patient had 4/4 bottles positive for gram- positive cocci in clusters. Patient is already on vancomycin and Zosyn. Will continue antibiotics as ordered for now. Consult infectious disease. Repeat blood cultures tomorrow morning. Check echocardiogram. Suspect source is foot wound.
[2025-01-02 06:04] LABS: Differential Indicated SCAN CRITERIA MET
[2025-01-02] MEDS: Heparin Injection (Vial) 5,000 UNIT/ML VIAL 5000 UNIT SC ×3 (06:52→21:07)
[2025-01-02] MEDS: Piperacil/Tazobactam 3.375 GM in 0.9% Normal Saline (50mL MB+) 50 ML IV ×3 (06:54→23:22)
[2025-01-02 07:07] LABS: Magnesium 2.2 mg/dL (1.5-2.2); Phosphorus 2.1 mg/dL (2.7-4.5)
[2025-01-02 07:15] LABS: Bedside Glucose 129 mg/dL (74-106)
[2025-01-02 07:15] LABS: Bedside Glucose 130 mg/dL (74-106)
[2025-01-02 07:18] LABS: AST(SGOT) 114 U/L (<=37); Alanine Aminotransfer ALT/SGPT 51 U/L (<=46); Albumin, Serum 3.4 g/dL (3.4-4.8); Alkaline Phosphatase 177 U/L (40-129); Anion Gap 20 (5-15); BUN 34 mg/dL (4-19); BUN/Creat Ratio 20.9 RATIO (10-20); Calcium,Total 9.5 mg/dL (7.6-11.0); Carbon Dioxide 13.4 mmol/L (21.0-32.0); Chloride 102 mmol/L (98-108); EST Glomerular Filtration Rate 41 (>60); Estimated Creatinine Clearance 38.14 ml/min (50-250); Globulin 3.4 g/dL (2.2-4.2); Glucose 103 mg/dL (70-99); Potassium 4.6 mmol/L (3.3-5.1); Protein, Total 6.8 g/dL (5.9-8.4); Sodium Level 135 mmol/L (133-145); Total Bilirubin 1.06 mg/dL (0.00-1.30)
[2025-01-02 07:20] LABS: Differential Comment SCANNED
--- NOTE | 2025-01-02 07:42 | PCM.CONS.GEN ---
Assessment & Plan Assessment/Plan (1) Cellulitis of left foot: PLAN: Patient was examined evaluated. All findings were discussed with the patient. All questions were answered to the patient's satisfaction. Review of nonweightbearing left foot radiographs show concern for loss of bone architecture to the level of the fifth metatarsal. On physical exam there is evidence of positive probe to bone so this is consistent with osteomyelitis. No evidence of emphysema or soft tissue air. Evidence of soft tissue defect to the subfifth metatarsal head. At time of interview the patient was nonresponsive due to mental status. Due to the patient unable to communicate we will hold off surgical intervention until stabilized. Please clear patient medically with recommendations. Will plan for incision bone cortex with delayed primary closure to the left foot 01/05/25. Patient to be n.p.o. midnight Sunday. Dressing change orders are in for nursing staff. Wound culture: Staph aureus Blood culture: Staph aureus WBC: 13.2 ESR: 42 CRP: 168.0 Glucose: 146 Medicine: On board, medical management Infectious disease: On board, IV antibiotics Vanco/Zosyn. Recommending PICC line antibiotics 6 weeks of discharge. Will continue to follow-up the patient is in house. Please reach out to Dr. Forman many questions or concerns. Thank you for the consultation! (2) Osteomyelitis of left foot: (3) Non-pressure chronic ulcer of other part of left foot with necrosis of bone: HPI Consult Data Date of Consult: 01/02/25 HPI Narrative Reason for Consultation: Left foot ulcer HPI Narrative: GANESH FLORES, is a 89 M who presented to [facility] emergency room via squad after a fall. Patient initially had a fall on 12/31/2024 and was seen emergency room and discharged back to facility. He is presenting again secondary to a fall. They admit to some skin tears on the patient's arm at that initial interview. Patient did deny hitting his head or having any loss of consciousness after his fall yesterday. Patient was also seen at [facility] wound [facility] with Dr. Forman/myself where he showed some evidence of agitation but was able to ambulate with assistance of a walker. He did have evidence of positive probe to bone and was treated with oral antibiotics. Plan was to discuss surgical intervention with MATTI which is his daughter. He was also discussed with nursing staff at the facility that the patient needs to be chaperoned when attending his medical appointments. During interview at bedside the patient cannot communicate due to mental status. [facility] Medical History Agitation due to dementia Closed head injury Fall Dementia Hypothyroidism Home Medications ?Medication ?Instructions ?Recorded ?Last Taken ?Type acetaminophen 500 mg capsule 1,000 mg PO BID 01/01/25 Unknown History (Mapap (acetaminophen)) acetaminophen 500 mg tablet 500 mg PO BID PRN fever or pain 01/01/25 Unknown History doxycycline hyclate 100 mg capsule 100 mg PO BID 01/01/25 Unknown History levothyroxine 150 mcg tablet 150 mcg PO DAILY 01/01/25 Unknown History meloxicam 7.5 mg tablet 7.5 mg PO DAILY 01/01/25 Unknown History sennosides 8.6 mg tablet (Kaylene-catina) 8.6 mg PO BID PRN constipation 01/01/25 Unknown History terbinafine HCl 250 mg tablet 250 mg PO DAILY 01/01/25 Unknown History Allergy/AdvReac Type Severity Reaction Status Date / Time shellfish derived Allergy unknown Verified 01/01/25 15:16 Social History Smoking Status: Never smoker Physical Exam Narrative Vascular: DP and PT pulses are faintly palpable to left lower extremity. CFT is brisk. Skin temperature gradient is warm to warm from proximal ankle to distal digit. Blanchable erythema to the left foot with evidence of dependent edema/erythema when elevated. Neurologic: Light touch intact. Epicritic sensation is intact. Patient does respond to painful stimuli. Dermatological: Full-thickness wound to the subfifth metatarsal head of the left foot measuring 0.5 x 0.5 x 0.7 cm. Positive probe to bone. Musculoskeletal: Pain on palpation to full-thickness wound. No pain with calf compression. Lab / Micro Data 01/02/25 04:55 01/02/25 04:10 Labs: Laboratory Results - last 24 hr 01/01/25 15:25: WBC 7.0, RBC 3.87 L, Hgb 12.8 L, Hct 37.4 L, MCV 96.6 H, MCH 33.1 H, MCHC 34.2, RDW Std Deviation 46.9 H, RDW Coeff of Gary 13.1, Plt Count TNP, MPV 11.2, Immature Gran % (Auto) 0.700, Neut % (Auto) 86.5 H, Lymph % (Auto) 2.6 L, Placer % (Auto) 9.8, Eos % (Auto) 0.1, Baso % (Auto) 0.3, Absolute Neuts (auto) 6.0, Absolute Lymphs (auto) 0.18 L, Nucleated RBC % 0, Differential Comment SCANNED, Platelet Estimate ADEQUATE, ESR 42 H, PT Cancelled, INR Cancelled, APTT Cancelled, Sodium 134, Potassium 4.7, Chloride 100, Carbon Dioxide 20.9 L, Anion Gap 13, BUN 45 H, Creatinine 1.95 H, Estim Creat Clear Calc 31.30 L, Est GFR (MDRD) Non-Af 32 L, BUN/Creatinine Ratio 23.1 H, Glucose 171 H, Lactic Acid 2.0, Calcium 9.6, Total Bilirubin 0.76, AST 86 H, ALT 48 H, Alkaline Phosphatase 189 H, C-React Prot Ext Range 168.00 H, Total Protein 6.9, Albumin 3.7, Globulin 3.2, Albumin/Globulin Ratio 1.2 01/01/25 17:18: Urine Color Yellow, Urine Clarity Sl. Cloudy, Urine pH 6.0, Ur Specific [place] 1.020, Urine Protein 30 H, Urine Glucose (UA) Normal, Urine Ketones 5 H, Urine Occult Blood 250 H, Urine Nitrite Negative, Urine Bilirubin Negative, Urine Urobilinogen Normal, Ur Leukocyte Esterase Negative, Urine RBC 5-10 SEEN, Urine WBC 0-5 SEEN, Ur Squamous Epith Cells 0 SEEN, Urine Bacteria 0 SEEN, Hyaline Casts 0-5 SEEN, Urine Mucus 0 SEEN 01/01/25 18:05: PT 12.7, INR 0.9, APTT 24.3 01/01/25 20:19: Lactic Acid 1.1 01/01/25 21:54: Ammonia 13.6 L 01/02/25 04:10: Sodium 135, Potassium 4.6, Chloride 102, Carbon Dioxide 13.4 L, Anion Gap 20 H, BUN 34 H, Creatinine 1.60 H, Estim Creat Clear Calc 38.14 L, Est GFR (MDRD) Non-Af 41 L, BUN/Creatinine Ratio 20.9 H, Glucose 103 H, Calcium 9.5, Phosphorus 2.1 L, Magnesium 2.2, Total Bilirubin 1.06, AST 114 H, ALT 51 H, Alkaline Phosphatase 177 H, Total Protein 6.8, Albumin 3.4, Globulin 3.4, Albumin/Globulin Ratio 1.0, TSH 1.270 01/02/25 04:55: WBC 13.2 H, RBC 4.00 L, Hgb 13.2, Hct 39.0 L, MCV 97.5 H, MCH 33.0 H, MCHC 33.8, RDW Std Deviation 46.5 H, RDW Coeff of Gary 13.0, Plt Count 117 L, MPV 10.0, Immature Gran % (Auto) 0.700, Neut % (Auto) 88.3 H, Lymph % (Auto) 1.4 L, Placer % (Auto) 9.4, Eos % (Auto) 0.0, Baso % (Auto) 0.2, Absolute Neuts (auto) 11.6 H, Absolute Lymphs (auto) 0.19 L, Nucleated RBC % 0, Differential Comment SCANNED 01/02/25 04:57: POC Glucose 129 H 01/02/25 06:57: POC Glucose 130 H Micro: Microbiology 01/02/25 02:05 Mucosa - Nasopharyngeal Respiratory Panel (PCR) - Final 01/02/25 03:57 Wound - Left Foot Skin and Soft Tissue MRSA/MSSA (PCR - Final Staphylococcus aureus 01/01/25 15:30 Blood Culture (Wb) - Arm Left Blood Culture - Preliminary 01/01/25 15:25 Blood Culture (Wb) - Right Forearm Blood Culture - Preliminary 01/02/25 02:05 Mucosa - Nasopharyngeal Coronavirus COVID-19 PCR - Final ABG Data ABG results: ABG 01/01/25 22:00 Specimen Type JOON Sample Site Not entered VBG pH 7.41 VBG pO2 32 VBG HCO3 22 VBG Total CO2 23 VBG O2 Sat (Calc) 62 VBG Base Excess -3 L POC Mix VBG pCO2 Pt Tmp 35.1 L O2 Delivery Device Room Air Imaging Radiology Impression Brain CT 01/01/25 16:20 IMPRESSION: 1. No acute intracranial finding. 2. Findings of chronic microvascular ischemic changes and age-related changes. Reading Location: [facility] Chest X-Ray 01/01/25 16:38 IMPRESSION: A prominently calcified aorta is seen, also somewhat tortuous. No evidence of cardiomegaly. Lungs appear clear of acute disease. No pleural effusion or pneumothorax is noted. No interval osseous changes noted. Prior right shoulder surgery is again seen. Reading Location: [address] Lower Extremity CT 01/01/25 22:40 IMPRESSION: 1. Diffuse soft tissue edema and swelling, probably cellulitis. 2. No fluid collection or drainable abscess formation is seen. 3. No CT evidence of osteomyelitis or gas-forming infection. 4. 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 5. Hallux valgus deformity. 6. Hammertoes deformities. 7. Calcaneal spur formation. 8. Enthesophyte formation at the calcaneal insertion of Achilles tendon. Reading Location[facility]
--- NOTE | 2025-01-02 07:44 | ART_ITS ---
Reason For Study Reason For Study: LLE ULCER Procedure A bilateral lower extremity continuous wave Doppler with analog waveform analysis and ankle brachial indexes. Left Segmental Pressures Left posterior tibial artery = 95mmHg. Left dorsalis pedis artery = 91mmHg. Left digit = 60 mmHg. The left posterior tibial artery waveforms are biphasic. The left dorsalis pedis waveforms are biphasic. Right Segmental Pressures Right brachial= 112mmHg. Right posterior tibial artery = 152mmHg. Right dorsalis pedis artery = 126mmHg. Right digit = 61 mmHg. The right posterior tibial artery waveforms are biphasic. The right dorsalis pedis waveforms are triphasic. Indices The right ankle brachial index by the posterior tibial artery is 1.36. The right ankle brachial index by the dorsalis pedis is 1.13. The right digital-brachial index is 0.54. The left ankle brachial index by the posterior tibial artery is 0.85. The left ankle brachial index by the dorsalis pedis is 0.81. The left digital-brachial index is 0.54. VL/Ankle Brachial Index Interpretation Summary Right SHERRY 1.36, normal. Doppler/PVR waveforms of the right ankle normal at rest . TBI and digit waveforms diminished, pedal/digit disease. Left SHERRY 0.85, moderate arterial insufficiency. Doppler/PVR waveforms of the le ft ankle moderately diminished at rest. Ordering Physician: Jaden Forman Referring Physician: Michael Meeks Performed By: Adrian Jackson RVT
--- NOTE | 2025-01-02 07:50 | RAD_ITS ---
PROCEDURE: FOOT MIN 3 VIEWS 01/02/2025 REASON FOR EXAM: BONE INFECTION AND FOOT ULCER TECHNIQUE: 3 views of the left foot. COMPARISON: CT scan on 01/01/2025. FINDINGS: Erosive changes of the neck of the 5th metatarsal bone and its head with overlying soft tissue edema and swelling suspicious for osteomyelitis. This can be further evaluated by MRI with gadolinium if clinically warranted. Diffuse soft tissue edema and swelling, probably cellulitis. 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 Chronic erosive changes of the tip of the distal phalanx of the big toe. Mild osteopenia of the visualized bones. Degenerative joint disease. No fracture or dislocation is seen. No lytic or blastic bone lesion is noted. Calcaneal spur formation. Enthesophyte formation at the calcaneal insertion of Achilles tendon. RAD/Foot min 3 Views IMPRESSION: Erosive changes of the neck of the 5th metatarsal bone and its head with overly ing soft tissue edema and swelling suspicious for osteomyelitis. This can be further evaluated by MRI with gadolinium if clinical ly warranted. Diffuse soft tissue edema and swelling, probably cellulitis. 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 Chronic erosive changes of the tip of the distal phalanx of the big toe. Reading Location: [facility]
--- NOTE | 2025-01-02 09:52 | CASEMGMT ---
Patient is from [facility]. Per physician patient will be having surgery on Sunday. SW will hold off on d/c planning as patient could possibly need SNF. Misa Jj [employer]
--- NOTE | 2025-01-02 10:57 | PCM.CONS.GEN ---
Assessment & Plan Assessment/Plan (1) Sepsis: PLAN: sepsis due to L foot osteo complicated by mssa bacteremia per pcr. Pt is DNR-CC. OR planned with podiatry. Will cont vanc/zosyn and check repeat bcx and TTE. Would need at least 6 weeks iv abx at discharge. Will follow, thank you, d/w nursing, rn case mgr, and wound care. (2) MSSA bacteremia: (3) Altered mental status: (4) Acute kidney injury: HPI Consult Data Date of Consult: 01/02/25 HPI Narrative Reason for Consultation: bacteremia HPI Narrative: GANESH FLORES, is a 89 M with h/o dementia, DNR-CC at [facility], presented to ED 01/01 with acute onset confusion and fall. Found to have fever and L foot infection. Admitted on vanc/zosyn, seen by podiatry. Pt unable to provide history or ROS due to mental status. [facility] Medical History Agitation due to dementia Closed head injury Fall Dementia Hypothyroidism Home Medications ?Medication ?Instructions ?Recorded ?Last Taken ?Type acetaminophen 500 mg capsule 1,000 mg PO BID 01/01/25 Unknown History (Mapap (acetaminophen)) acetaminophen 500 mg tablet 500 mg PO BID PRN fever or pain 01/01/25 Unknown History doxycycline hyclate 100 mg capsule 100 mg PO BID 01/01/25 Unknown History levothyroxine 150 mcg tablet 150 mcg PO DAILY 01/01/25 Unknown History meloxicam 7.5 mg tablet 7.5 mg PO DAILY 01/01/25 Unknown History sennosides 8.6 mg tablet (Kaylene-catina) 8.6 mg PO BID PRN constipation 01/01/25 Unknown History terbinafine HCl 250 mg tablet 250 mg PO DAILY 01/01/25 Unknown History Allergy/AdvReac Type Severity Reaction Status Date / Time shellfish derived Allergy unknown Verified 01/01/25 15:16 Social History Smoking Status: Never smoker Physical Exam Const Constitutional Narrative: some unintelligible moaning General Appearance: lethargic Orientation / Consciousness: confused HEENT normocephalic and head/scalp atraumatic Eyes PERRL Neck supple and No nodes Resp normal air movement and clear to auscultation bilaterally Cardio regular rate and regular rhythm GI soft to palpation, non-tender and non-distended Extremity Extremity Narrative: no focal joint swelling or warmth General Extremity: Negative for edema Skin Skin Narrative: No splinter hemorrhages on hands or feet. L foot with wound, diffuse redness. Neuro CN's II-XII intact bilaterally Lab / Micro Data Attestation: I reviewed the patient's lab results. 01/02/25 04:55 01/02/25 04:10 Labs: Laboratory Results - last 24 hr 01/01/25 15:25: WBC 7.0, RBC 3.87 L, Hgb 12.8 L, Hct 37.4 L, MCV 96.6 H, MCH 33.1 H, MCHC 34.2, RDW Std Deviation 46.9 H, RDW Coeff of Gary 13.1, Plt Count TNP, MPV 11.2, Immature Gran % (Auto) 0.700, Neut % (Auto) 86.5 H, Lymph % (Auto) 2.6 L, Sanders % (Auto) 9.8, Eos % (Auto) 0.1, Baso % (Auto) 0.3, Absolute Neuts (auto) 6.0, Absolute Lymphs (auto) 0.18 L, Nucleated RBC % 0, Differential Comment SCANNED, Platelet Estimate ADEQUATE, ESR 42 H, PT Cancelled, INR Cancelled, APTT Cancelled, Sodium 134, Potassium 4.7, Chloride 100, Carbon Dioxide 20.9 L, Anion Gap 13, BUN 45 H, Creatinine 1.95 H, Estim Creat Clear Calc 31.30 L, Est GFR (MDRD) Non-Af 32 L, BUN/Creatinine Ratio 23.1 H, Glucose 171 H, Lactic Acid 2.0, Calcium 9.6, Total Bilirubin 0.76, AST 86 H, ALT 48 H, Alkaline Phosphatase 189 H, C-React Prot Ext Range 168.00 H, Total Protein 6.9, Albumin 3.7, Globulin 3.2, Albumin/Globulin Ratio 1.2 01/01/25 17:18: Urine Color Yellow, Urine Clarity Sl. Cloudy, Urine pH 6.0, Ur Specific [place] 1.020, Urine Protein 30 H, Urine Glucose (UA) Normal, Urine Ketones 5 H, Urine Occult Blood 250 H, Urine Nitrite Negative, Urine Bilirubin Negative, Urine Urobilinogen Normal, Ur Leukocyte Esterase Negative, Urine RBC 5-10 SEEN, Urine WBC 0-5 SEEN, Ur Squamous Epith Cells 0 SEEN, Urine Bacteria 0 SEEN, Hyaline Casts 0-5 SEEN, Urine Mucus 0 SEEN 01/01/25 18:05: PT 12.7, INR 0.9, APTT 24.3 01/01/25 20:19: Lactic Acid 1.1 01/01/25 21:54: Ammonia 13.6 L 01/02/25 04:10: Sodium 135, Potassium 4.6, Chloride 102, Carbon Dioxide 13.4 L, Anion Gap 20 H, BUN 34 H, Creatinine 1.60 H, Estim Creat Clear Calc 38.14 L, Est GFR (MDRD) Non-Af 41 L, BUN/Creatinine Ratio 20.9 H, Glucose 103 H, Calcium 9.5, Phosphorus 2.1 L, Magnesium 2.2, Total Bilirubin 1.06, AST 114 H, ALT 51 H, Alkaline Phosphatase 177 H, Total Protein 6.8, Albumin 3.4, Globulin 3.4, Albumin/Globulin Ratio 1.0, TSH 1.270 01/02/25 04:55: WBC 13.2 H, RBC 4.00 L, Hgb 13.2, Hct 39.0 L, MCV 97.5 H, MCH 33.0 H, MCHC 33.8, RDW Std Deviation 46.5 H, RDW Coeff of Gary 13.0, Plt Count 117 L, MPV 10.0, Immature Gran % (Auto) 0.700, Neut % (Auto) 88.3 H, Lymph % (Auto) 1.4 L, Sanders % (Auto) 9.4, Eos % (Auto) 0.0, Baso % (Auto) 0.2, Absolute Neuts (auto) 11.6 H, Absolute Lymphs (auto) 0.19 L, Nucleated RBC % 0, Differential Comment SCANNED 01/02/25 04:57: POC Glucose 129 H 01/02/25 06:57: POC Glucose 130 H Micro: Microbiology 01/01/25 15:25 Blood Culture (Wb) - Right Forearm Bacteria Detection (PCR) - Final Staphylococcus aureus 01/01/25 15:25 Blood Culture (Wb) - Right Forearm Blood Culture - Preliminary 01/02/25 02:05 Mucosa - Nasopharyngeal Respiratory Panel (PCR) - Final 01/02/25 03:57 Wound - Left Foot Skin and Soft Tissue MRSA/MSSA (PCR - Final Staphylococcus aureus 01/01/25 15:30 Blood Culture (Wb) - Arm Left Blood Culture - Preliminary 01/02/25 02:05 Mucosa - Nasopharyngeal Coronavirus COVID-19 PCR - Final ABG Data ABG results: ABG 01/01/25 22:00 Specimen Type JOON Sample Site Not entered VBG pH 7.41 VBG pO2 32 VBG HCO3 22 VBG Total CO2 23 VBG O2 Sat (Calc) 62 VBG Base Excess -3 L POC Mix VBG pCO2 Pt Tmp 35.1 L O2 Delivery Device Room Air Imaging Radiology Impression Brain CT 01/01/25 16:20 IMPRESSION: 1. No acute intracranial finding. 2. Findings of chronic microvascular ischemic changes and age-related changes. Reading Location: [facility] Chest X-Ray 01/01/25 16:38 IMPRESSION: A prominently calcified aorta is seen, also somewhat tortuous. No evidence of cardiomegaly. Lungs appear clear of acute disease. No pleural effusion or pneumothorax is noted. No interval osseous changes noted. Prior right shoulder surgery is again seen. Reading Location: [id number] Lower Extremity CT 01/01/25 22:40 IMPRESSION: 1. Diffuse soft tissue edema and swelling, probably cellulitis. 2. No fluid collection or drainable abscess formation is seen. 3. No CT evidence of osteomyelitis or gas-forming infection. 4. 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 5. Hallux valgus deformity. 6. Hammertoes deformities. 7. Calcaneal spur formation. 8. Enthesophyte formation at the calcaneal insertion of Achilles tendon. Reading [facility] Foot X-Ray 01/02/25 07:50 IMPRESSION: Erosive changes of the neck of the 5th metatarsal bone and its head with overlying soft tissue edema and swelling suspicious for osteomyelitis. This can be further evaluated by MRI with gadolinium if clinically warranted. Diffuse soft tissue edema and swelling, probably cellulitis. 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 Chronic erosive changes of the tip of the distal phalanx of the big toe. Reading Location[facility]
--- NOTE | 2025-01-02 11:40 | WOUNDNOTE ---
wound photo: left foot
--- NOTE | 2025-01-02 11:40 | WOUNDNOTE ---
wound photo: left foot
--- NOTE | 2025-01-02 11:41 | WOUNDNOTE ---
wound photo: right foot
--- NOTE | 2025-01-02 11:58 | CASEMGMT ---
Discharge Planning Updates faxed to [facility] with note that pt will be here through the wknd and planned surgery on Sunday. Rosalia Medina DC Planning Asst.
[2025-01-02 12:01] LABS: Bedside Glucose 146 mg/dL (74-106)
[2025-01-02 13:09] LABS: Hemoglobin A1c 6.2 % (<=5.6)
[2025-01-02] MEDS: Acetaminophen 325 MG Tablet 650 MG PO (14:27)
--- NOTE | 2025-01-02 14:54 | PN_ITS ---
Subjective Subjective Patient seen and examined. He was quite lethargic and confused. Unable to do review of systems. He is on room air and is otherwise remained hemodynamically stable. Objective Data Objective Data Vital Signs: Vital Signs Temp Pulse Resp BP Pulse Ox O2 Del Method 100.9 F H 111 H 18 125/109 H 92 Room Air 01/02/25 09:00 01/02/25 09:00 01/02/25 09:00 01/02/25 09:00 01/02/25 09:00 01/02/25 14:09 Oxygen Delivery Method Room Air Weight: 197 lb 12.074 oz Body Mass Index (BMI) 24.7 Intake & Output: Intake and Output for Last 24 Hours 12/31/24 01/01/25 01/02/25 23:59 23:59 23:59 Intake Total 1100 / 1100 590 / 590 Balance 1100 / 1100 590 / 590 Lab / Micro Data 01/02/25 04:55 01/02/25 04:10 Labs: Laboratory Results - last 24 hr 01/01/25 15:25: WBC 7.0, RBC 3.87 L, Hgb 12.8 L, Hct 37.4 L, MCV 96.6 H, MCH 33.1 H, MCHC 34.2, RDW Std Deviation 46.9 H, RDW Coeff of Gary 13.1, Plt Count TNP, MPV 11.2, Immature Gran % (Auto) 0.700, Neut % (Auto) 86.5 H, Lymph % (Auto) 2.6 L, [place] % (Auto) 9.8, Eos % (Auto) 0.1, Baso % (Auto) 0.3, Absolute Neuts (auto) 6.0, Absolute Lymphs (auto) 0.18 L, Nucleated RBC % 0, Differential Comment SCANNED, Platelet Estimate ADEQUATE, ESR 42 H, PT Cancelled, INR Cancelled, APTT Cancelled, Sodium 134, Potassium 4.7, Chloride 100, Carbon Dioxide 20.9 L, Anion Gap 13, BUN 45 H, Creatinine 1.95 H, Estim Creat Clear Calc 31.30 L, Est GFR (MDRD) Non-Af 32 L, BUN/Creatinine Ratio 23.1 H, Glucose 171 H, Lactic Acid 2.0, Calcium 9.6, Total Bilirubin 0.76, AST 86 H, ALT 48 H, A lkaline Phosphatase 189 H, C-React Prot Ext Range 168.00 H, Total Protein 6.9, Albumin 3.7, Globulin 3.2, Albumin/Globulin Ratio 1.2 01/01/25 17:18: Urine Color Yellow, Urine Clarity Sl. Cloudy, Urine pH 6.0, Ur Specific [place] 1.020, Urine Protein 30 H, Urine Glucose (UA) Normal, Urine Ketones 5 H, Urine Occult Blood 250 H, Urine Nitrite Negative, Urine Bilirubin Negative, Urine Urobilinogen Normal, Ur Leukocyte Esterase Negative, Urine RBC 5-10 SEEN, Urine WBC 0-5 SEEN, Ur Squamous Epith Cells 0 SEEN, Urine Bacteria 0 SEEN, Hyaline Casts 0-5 SEEN, Urine Mucus 0 SEEN 01/01/25 18:05: PT 12.7, INR 0.9, APTT 24.3 01/01/25 20:19: Lactic Acid 1.1 01/01/25 21:54: Ammonia 13.6 L 01/02/25 04:10: Sodium 135, Potassium 4.6, Chloride 102, Carbon Dioxide 13.4 L, Anion Gap 20 H, BUN 34 H, Creatinine 1.60 H, Estim Creat Clear Calc 38.14 L, Est GFR (MDRD) Non-Af 41 L, BUN/Creatinine Ratio 20.9 H, Glucose 103 H, Calcium 9.5, Phosphorus 2.1 L, Magnesium 2.2, Total Bilirubin 1.06, AST 114 H, ALT 51 H, A lkaline Phosphatase 177 H, Total Protein 6.8, Albumin 3.4, Globulin 3.4, Albumin/Globulin Ratio 1.0, TSH 1.270 01/02/25 04:55: WBC 13.2 H, RBC 4.00 L, Hgb 13.2, Hct 39.0 L, MCV 97.5 H, MCH 33.0 H, MCHC 33.8, RDW Std Deviation 46.5 H, RDW Coeff of Gary 13.0, Plt Count 117 L, MPV 10.0, Immature Gran % (Auto) 0.700, Neut % (Auto) 88.3 H, Lymph % (Auto) 1.4 L, [place] % (Auto) 9.4, Eos % (Auto) 0.0, Baso % (Auto) 0.2, Absolute Neuts (auto) 11.6 H, Absolute Lymphs (auto) 0.19 L, Nucleated RBC % 0, Differential Comment SCANNED, Hemoglobin A1c 6.2 H 01/02/25 04:57: POC Glucose 129 H 01/02/25 06:57: POC Glucose 130 H 01/02/25 11:28: POC Glucose 146 H Micro: Microbiology 01/02/25 03:57 Wound - Left Foot Gram Stain - Final 01/02/25 03:57 Wound - Left Foot Skin and Soft Tissue MRSA/MSSA (PCR - Final Staphylococcus aureus 01/01/25 15:25 Blood Culture (Wb) - Right Forearm Bacteria Detection (PCR) - Final Staphylococcus aureus 01/01/25 15:25 Blood Culture (Wb) - Right Forearm Blood Culture - Preliminary 01/02/25 02:05 Mucosa - Nasopharyngeal Respiratory Panel (PCR) - Final 01/01/25 15:30 Blood Culture (Wb) - Arm Left Blood Culture - Preliminary 01/02/25 02:05 Mucosa - Nasopharyngeal Coronavirus COVID-19 PCR - Final ABG Data ABG results: ABG 01/01/25 22:00 Specimen Type JOON Sample Site Not entered VBG pH 7.41 VBG pO2 32 VBG HCO3 22 VBG Total CO2 23 VBG O2 Sat (Calc) 62 VBG Base Excess -3 L POC Mix VBG pCO2 Pt Tmp 35.1 L O2 Delivery Device Room Air Radiography Diagnostic Testing: Radiology Impression Brain CT 01/01/25 16:20 IMPRESSION: 1. No acute intracranial finding. 2. Findings of chronic microvascular ischemic changes and age-related changes. Reading Location: [facility] Chest X-Ray 01/01/25 16:38 IMPRESSION: A prominently calcified aorta is seen, also somewhat tortuous. No evidence of cardiomegaly. Lungs appear clear of acute disease. No pleural effusion or pneumothorax is noted. No interval osseous changes noted. Prior right shoulder surgery is again seen. Reading Location: [id number] Lower Extremity CT 01/01/25 22:40 IMPRESSION: 1. Diffuse soft tissue edema and swelling, probably cellulitis. 2. No fluid collection or drainable abscess formation is seen. 3. No CT evidence of osteomyelitis or gas-forming infection. 4. 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 5. Hallux valgus deformity. 6. Hammertoes deformities. 7. Calcaneal spur formation. 8. Enthesophyte formation at the calcaneal insertion of Achilles tendon. Reading Location: [place] [id number] Foot X-Ray 01/02/25 07:50 IMPRESSION: Erosive changes of the neck of the 5th metatarsal bone and its head with overlying soft tissue edema and swelling suspicious for osteomyelitis. This can be further evaluated by MRI with gadolinium if clinically warranted. Diffuse soft tissue edema and swelling, probably cellulitis. 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 Chronic erosive changes of the tip of the distal phalanx of the big toe. Reading Location: [place] [id number] Physical Exam Const Constitutional Narrative: lethargic, confused HEENT normocephalic, head/scalp atraumatic and oropharynx normal Eyes EOMs intact bilaterally Neck supple and no JVD Lymph Lymphatic: no lymphedema noted Resp Resp Narrative: mildly diminished breath sounds bibasally, no wheezes or crackles. On room air Cardio regular rate, regular rhythm, S1 normal heart sound, S2 normal heart sound and no murmurs GI normal to inspection, nondistended, normoactive bowel sounds, soft to palpation, non-tender and non-distended Extremity normal capillary refill, no clubbing, cyanosis or edema and no calf tenderness Skin General Skin Exam: no breakdown Neuro Neuro Narrative: Patient lethargic, confused Motor Exam: general weakness Psych Psych Narrative: Confused and lethargic. Assessment & Plan Assessment/Plan (1) Osteomyelitis of left foot: (2) MSSA bacteremia: (3) Sepsis: (4) Cellulitis of left foot: PLAN: Plan # Staph MSSA bacteremia in the setting of cellulitis of the foot * Patient's blood cultures are growing staph aureus * on IV vancomycin and zosyn * ID on board as well as podiatry * Urinalysis does not show any evidence of UTI. * Wound cultures pending. Podiatry on board. For surgery on Sunday. 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 TTE ordered and pending. Repeat blood cultures also ordered. #Acute encephalopathy likely due to MRSA bacteremia: Management as above #Hyperglycemia: * This in the setting of impaired glucose tolerance. Has known A1c of 6.1. Will monitor closely for now and status sliding scale as needed #Thrombocytopenia: * Platelets are 117 today. May be due to acute illness. Will monitor. * #CASEY: * Will monitor creatinine and hydrate with IV fluids * Creatinine is down to 1.6. Was 1.95 on admission. Baseline creatinine is around 1.3. * #Hypothyroidism: On Synthroid #Debility and weakness with failure to thrive: PT OT on board. Fall precautions. #History of onycholysis: On terbinafine which was held due to worsening kidney function #Dementia: * Unclear if he has behavioral disturbance. However he is very lethargic today. * Started on melatonin. * If patient becomes agitated we will have to consider starting Seroquel. Due to prophylaxis: Heparin Charges/Coding Visit Charges Inpatient E&M: 61920 Subs Hosp L3
--- NOTE | 2025-01-02 15:12 | CHAPLAIN ---
Type of Pastoral Visit _x__ Initial Visit ___ Follow-up Visit ___ On-call Visit ___ General Patient Visit ___ Spiritual Assessment ___ Family Conference ___ Bereavement ___ Rapid Response ___ Code Blue ___ Other (describe below) Pastoral Care Referral From ___ Patient ___ Family ___ Nurse ___ Physician ___ Unix Analyst ___ Gas Prover _x__ Other (describe below) Sacrament/Intervention ___ Active listening ___ Anointing ___ Yazidism ___ Bereavement ___ Communion ___ Kelly exploration ___ ___ Life review ___ Prayer ___ Reconciliation ___ Sacrament of Sick _x__ Supportive presence ___ Wedding ___ Other (describe below) Pastoral Comments attempt made to visit and offer support; pt appears to be sleeping but is asked some questions and is addressed by this ceramic engineering professor;pt opens his eyes and mumbles but mostly is confused and unable to communicate; his only attempt was of garbled speech; RN was in the room and confirms this status; after several attempts to give reassurance and to talk with the patient, this ceramic engineering professor left the room; pt does not and can not communicate effectivly
[2025-01-02 16:54] LABS: Bedside Glucose 156 mg/dL (74-106)
[2025-01-02] MEDS: Vancomycin IV 1,000 MG/200 ML BAG 200 MG IV (21:01)
[2025-01-02] MEDS: MELATONIN 10 MG TABLET PO (21:11)
[2025-01-03] VITALS (10 sets, daily range): BP systolic 104–151; BP diastolic 72–95; PULSE 69–112; RESP 18; TEMP 36.4–37.1; O2SAT 93–99
[2025-01-03 00:19] LABS: Bedside Glucose 136 mg/dL (74-106)
[2025-01-03] MEDS: Piperacil/Tazobactam 3.375 GM in 0.9% Normal Saline (50mL MB+) 50 ML IV ×3 (04:37→21:39)
[2025-01-03] MEDS: Heparin Injection (Vial) 5,000 UNIT/ML VIAL 5000 UNIT SC ×3 (04:37→21:39)
[2025-01-03] MEDS: Levothyroxine 150 MCG Tablet PO (04:37)
[2025-01-03 06:00] LABS: Bedside Glucose 170 mg/dL (74-106)
[2025-01-03 06:52] LABS: Absolute Lymphocyte Count 0.13 X10^3/uL (0.83-4.51); Basophil# 0.02 X10^3/uL; Basophil% 0.4 % (0-1); Hematocrit 36.8 % (40-54); Hemoglobin 12.5 g/dL (13.0-16.5); Lymphocyte # 0.13 X10^3/ul (0.83-4.51); Lymphocyte % 2.4 % (19-41); Mean Corpuscular Hgb 32.5 pg (27.0-32.0); Mean Corpuscular Volume 95.6 fL (80-94); Mean Platelet Vol. 10.9 fl (6.2-12.0); Monocyte# 0.36 X10^3/uL; Monocyte% 6.5 % (0-10); NRBC Flagged by Analyzer 0 % (0-5); Neutrophil # 4.97 X10^3/uL (2.7-7.7); POSITIVE COUNT YES; POSITIVE DIFFERENTIAL YES; POSITIVE MORPHOLOGY YES; Platelet Count 93 K/mm3 (150-450); RBC Distribution Width CV 13.1 % (11.6-14.6); RBC Distribution Width SD 46.6 fl (35.1-43.9); Red Blood Count 3.85 M/mm3 (4.6-6.2); White Blood Count 5.5 K/mm3 (4.4-11.0)
[2025-01-03 07:03] LABS: Anion Gap 12 (5-15); BUN 39 mg/dL (4-19); BUN/Creat Ratio 22.5 RATIO (10-20); Calcium,Total 9.1 mg/dL (7.6-11.0); Carbon Dioxide 18.8 mmol/L (21.0-32.0); Chloride 105 mmol/L (98-108); Creatinine, Serum 1.72 mg/dL (0.70-1.20); EST Glomerular Filtration Rate 38 (>60); Estimated Creatinine Clearance 35.48 ml/min (50-250); Glucose 184 mg/dL (70-99); Potassium 4.1 mmol/L (3.3-5.1); Sodium Level 136 mmol/L (133-145)
[2025-01-03 07:35] LABS: Differential Indicated SCAN CRITERIA MET
[2025-01-03 07:38] LABS: Platelet Estimate SLT DEC (ADEQ)
--- NOTE | 2025-01-03 10:36 | PCM.PN.SRG ---
Subjective Subjective Patient is a 89-year-old male seen at bedside today for left lower extremity dressing change. Patient was sleeping at the time of visit. Patient still lethargic and confused. Currently on room air. No acute events overnight. Objective Data Objective Data Vital Signs: Vital Signs Temp Pulse Resp BP Pulse Ox O2 Del Method O2 Flow Rate 98.7 F 107 H 18 150/72 H 93 Room Air 2 01/03/25 05:29 01/03/25 05:29 01/03/25 05:29 01/03/25 05:29 01/03/25 05:29 01/03/25 08:34 01/03/25 05:29 Oxygen Flow Rate (L/min) 2 Oxygen Delivery Method Room Air Weight: 89.7 kg Body Mass Index (BMI) 24.7 Intake & Output: Intake and Output for Last 24 Hours 01/01/25 01/02/25 01/03/25 23:59 23:59 23:59 Intake Total 1100 / 1100 1622.5 / 1622.5 1400 / 1400 Output Total 200 / 200 Balance 1100 / 1100 1622.5 / 1622.5 1200 / 1200 Lab / Micro Data 01/03/25 06:15 01/03/25 06:15 Labs: Laboratory Results - last 24 hr 01/02/25 04:55: Hemoglobin A1c 6.2 H 01/02/25 11:28: POC Glucose 146 H 01/02/25 16:15: POC Glucose 156 H 01/02/25 20:45: POC Glucose 136 H 01/03/25 05:26: POC Glucose 170 H 01/03/25 06:15: WBC 5.5, RBC 3.85 L, Hgb 12.5 L, Hct 36.8 L, MCV 95.6 H, MCH 32.5 H, MCHC 34.0, RDW Std Deviation 46.6 H, RDW Coeff of Gary 13.1, Plt Count 93 L, MPV 10.9, Immature Gran % (Auto) 0.700, Neut % (Auto) 90.0 H, Lymph % (Auto) 2.4 L, [place] % (Auto) 6.5, Eos % (Auto) 0.0, Baso % (Auto) 0.4, Absolute Neuts (auto) 5.0, Absolute Lymphs (auto) 0.13 L, Nucleated RBC % 0, Platelet Estimate SLT JUN, Sodium 136, Potassium 4.1, Chloride 105, Carbon Dioxide 18.8 L, Anion Gap 12, BUN 39 H, Creatinine 1.72 H, Estim Creat Clear Calc 35.48 L, Est GFR (MDRD) Non-Af 38 L, BUN/Creatinine Ratio 22.5 H, Glucose 184 H, Calcium 9.1 Micro: Microbiology 01/01/25 15:25 Blood Culture (Wb) - Right Forearm Bacteria Detection (PCR) - Final Staphylococcus aureus 01/01/25 15:25 Blood Culture (Wb) - Right Forearm Blood Culture - Final Staphylococcus aureus 01/01/25 15:30 Blood Culture (Wb) - Arm Left Blood Culture - Preliminary Staphylococcus aureus 01/02/25 03:57 Wound - Left Foot Gram Stain - Final 01/02/25 03:57 Wound - Left Foot Wound Culture - Preliminary Staphylococcus aureus 01/02/25 03:57 Wound - Left Foot Skin and Soft Tissue MRSA/MSSA (PCR - Final Staphylococcus aureus 01/01/25 17:10 Urine Catheter - Catheter Urine Culture - Preliminary Culture exhibits no growth. 01/02/25 11:55 Blood Culture (Wb) - Left Wrist Blood Culture - Preliminary 01/02/25 02:05 Mucosa - Nasopharyngeal Respiratory Panel (PCR) - Final 01/02/25 02:05 Mucosa - Nasopharyngeal Coronavirus COVID-19 PCR - Final Radiography Diagnostic Testing: Radiology Impression Echocardiogram 01/02/25 05:46 Interpretation Summary Difficult study Left ventricular systolic function is normal. The LV ejection fraction is 55 %. Moderate to severe mitral annular calcification The right atrium is mildly dilated The left atrium is mildly dilated Mild aortic stenosis. Mean/peak aortic valve gradient 20/33 mmHg YESSENIA 1.8 cm?? Aortic valve is mildly to moderately calcified Aortic valve appears tricuspid Ordering Physician: Mei Mckenzie Referring Physician: Michael Meeks Performed By: Mounika Odonnell, YAYA, RVT Physical Exam Narrative Neurovascular status is unchanged. Improved erythema to the left foot. Evidence of fluid-filled bullae to the lateral left foot which was deroofed that exposed a new full-thickness wound down to bone. After debridement the wound measured 1.0 x 1.0 x 0.4 cm. Tunneled from 12:00 to 6:00 with positive probe to bone. Mild pain on palpation to both full-thickness wound to the fifth metatarsal head. No pain with calf pressure. Assessment & Plan Assessment/Plan (1) Osteomyelitis of left foot: PLAN: Patient was examined and evaluated. All findings were discussed with the patient. All questions were answered to the patient satisfaction. During physical exam there was evidence of a fluid-filled bullae that was deroofed with sterile pickup and scissors. There exposed a full-thickness wound to the dorsal aspect of the left foot at the level of the fifth metatarsal head with positive probe to bone. Excisional debridement down to and including subcutaneous tissue, fascia, muscle and bone was performed with sterile pickup and scissors. Positive probe to bone. Postdebridement measurement was 1.0 x 1.0 x 0.4 cm. Culture was taken. Both ulcerations were flushed with cold george normal saline. The area was dressed with Betadine paint dry sterile dressing and light compression wrap was applied to the left lower extremity. Please continue daily dressing changes as above. Will plan for incision bone cortex of the fifth ray with advancement flap closure to the left lower extremity. Surgery will be planned for Sunday. Patient be n.p.o. midnight tonight. All risk and benefits were discussed with the patient's daughter who is his POA which she had understanding of. Per the conversation with the daughter, the patient has been suffering from a full-thickness wound for greater than 6 months with not much resolution. Please clear the patient medically. WBC: 13.2 ?> 5.5 HbA1c: 6.2 Glucose:170 Medicine: On board, medical management Infectious disease, on board, IV antibiotics vancomycin and Zosyn Will plan for surgery Sunday. Please reach out to Dr. Fomran with question or concerns. Podiatry will continue to follow. 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
[2025-01-03 11:29] LABS: Bedside Glucose 152 mg/dL (74-106)
--- NOTE | 2025-01-03 13:34 | PN_ITS ---
Subjective Subjective Patient seen and examined. He remains very lethargic and is unable to do review of systems. Vitals have remained stable. He is able to open his eyes in response to loud voice, but not answering any questions. Objective Data Objective Data Vital Signs: Vital Signs Temp Pulse Resp BP Pulse Ox O2 Del Method O2 Flow Rate 97.9 F 82 18 122/78 H 99 Nasal Cannula 2 01/03/25 11:18 01/03/25 11:18 01/03/25 11:18 01/03/25 11:18 01/03/25 11:18 01/03/25 11:18 01/03/25 11:18 Oxygen Flow Rate (L/min) 2 Oxygen Delivery Method Nasal Cannula Weight: 197 lb 12.074 oz Body Mass Index (BMI) 24.7 Intake & Output: Intake and Output for Last 24 Hours 01/01/25 01/02/25 01/03/25 23:59 23:59 23:59 Intake Total 1100 / 1100 1622.5 / 1622.5 1500 / 1500 Output Total 300 / 300 Balance 1100 / 1100 1622.5 / 1622.5 1200 / 1200 Lab / Micro Data 01/03/25 06:15 01/03/25 06:15 Labs: Laboratory Results - last 24 hr 01/02/25 16:15: POC Glucose 156 H 01/02/25 20:45: POC Glucose 136 H 01/03/25 05:26: POC Glucose 170 H 01/03/25 06:15: WBC 5.5, RBC 3.85 L, Hgb 12.5 L, Hct 36.8 L, MCV 95.6 H, MCH 32.5 H, MCHC 34.0, RDW Std Deviation 46.6 H, RDW Coeff of Gary 13.1, Plt Count 93 L, MPV 10.9, Immature Gran % (Auto) 0.700, Neut % (Auto) 90.0 H, Lymph % (Auto) 2.4 L, [place] % (Auto) 6.5, Eos % (Auto) 0.0, Baso % (Auto) 0.4, Absolute Neuts (auto) 5.0, Absolute Lymphs (auto) 0.13 L, Nucleated RBC % 0, Platelet Estimate SLT DEC, Sodium 136, Potassium 4.1, Chloride 105, Carbon Dioxide 18.8 L, Anion Gap 12, BUN 39 H, Creatinine 1.72 H, Estim Creat Clear Calc 35.48 L, Est GFR (MDRD) Non-Af 38 L, BUN/Creatinine Ratio 22.5 H, Glucose 184 H, Calcium 9.1 01/03/25 11:08: POC Glucose 152 H Micro: Microbiology 01/01/25 15:25 Blood Culture (Wb) - Right Forearm Bacteria Detection (PCR) - Final Staphylococcus aureus 01/01/25 15:25 Blood Culture (Wb) - Right Forearm Blood Culture - Final Staphylococcus aureus 01/01/25 15:30 Blood Culture (Wb) - Arm Left Blood Culture - Preliminary Staphylococcus aureus 01/02/25 03:57 Wound - Left Foot Gram Stain - Final 01/02/25 03:57 Wound - Left Foot Wound Culture - Preliminary Staphylococcus aureus 01/02/25 03:57 Wound - Left Foot Skin and Soft Tissue MRSA/MSSA (PCR - Final Staphylococcus aureus 01/01/25 17:10 Urine Catheter - Catheter Urine Culture - Preliminary Culture exhibits no growth. 01/02/25 11:55 Blood Culture (Wb) - Left Wrist Blood Culture - Preliminary 01/02/25 02:05 Mucosa - Nasopharyngeal Respiratory Panel (PCR) - Final 01/02/25 02:05 Mucosa - Nasopharyngeal Coronavirus COVID-19 PCR - Final Radiography Diagnostic Testing: Radiology Impression Echocardiogram 01/02/25 05:46 Interpretation Summary Difficult study Left ventricular systolic function is normal. The LV ejection fraction is 55 %. Moderate to severe mitral annular calcification The right atrium is mildly dilated The left atrium is mildly dilated Mild aortic stenosis. Mean/peak aortic valve gradient 20/33 mmHg YESSENIA 1.8 cm?? Aortic valve is mildly to moderately calcified Aortic valve appears tricuspid Ordering Physician: Mei Mckenzie Referring Physician: Michael Meeks Performed By: Mounika Odonnell, YAYA, RVT Physical Exam Const average body habitus Constitutional Narrative: lethargic, confused General Appearance: uncooperative Orientation / Consciousness: confused HEENT normocephalic, head/scalp atraumatic and oropharynx normal Mouth: dry mucous membranes Eyes EOMs intact bilaterally and conjunctivae normal Eyes Narrative: No scleral icterus Neck supple and no JVD Neck Narrative: Trachea midline Lymph Lymphatic: no lymphedema noted Resp Resp Narrative: mildly diminished breath sounds bibasally, no wheezes or crackles. On room air Cardio regular rate, regular rhythm, S1 normal heart sound, S2 normal heart sound and no murmurs GI normal to inspection, nondistended, normoactive bowel sounds, soft to palpation, non-tender and non-distended Extremity normal capillary refill, no clubbing, cyanosis or edema and no calf tenderness Extremity Narrative: Decreased lean muscle mass Skin Skin Narrative: Left foot wrapped in bandage General Skin Exam: no breakdown Neuro Neuro Narrative: Patient lethargic, confused Psych Psych Narrative: Confused and lethargic. Assessment & Plan Assessment/Plan (1) Osteomyelitis of left foot: (2) MSSA bacteremia: (3) Sepsis: (4) Cellulitis of left foot: PLAN: Plan # Staph MSSA bacteremia in the setting of cellulitis of the foot * Patient's blood cultures are growing staph aureus * on IV vancomycin and zosyn * ID on board as well as podiatry * Urinalysis does not show any evidence of UTI. * Wound cultures pending. Podiatry on board. For surgery on Sunday. 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 * TTE showed no evidence of vegetation and showed normal left ventricular size and systolic function with EF of 55% and moderate to severe mitral annular calcification and mild aortic stenosis with aortic valve mildly to moderately calcified and it appears tricuspid. * Repeat blood cultures also ordered. #Acute encephalopathy likely due to MRSA bacteremia: Management as above #Hyperglycemia: * This in the setting of impaired glucose tolerance. Has known A1c of 6.1. Will monitor closely for now and status sliding scale as needed #Thrombocytopenia: * Platelets are 117 today. May be due to acute illness. Will monitor. * #CASEY: * Will monitor creatinine and hydrate with IV fluids * Creatinine today is 1.72. * Was 1.95 on admission. Baseline creatinine is around 1.3. * #Hypothyroidism: On Synthroid #Debility and weakness with failure to thrive: PT OT on board. Fall precautions. #History of onycholysis: On terbinafine which was held due to worsening kidney function #Dementia: * Unclear if he has behavioral disturbance. However he is very lethargic today. * Started on melatonin. * If patient becomes agitated we will have to consider starting Seroquel. DVT prophylaxis: Heparin Charges/Coding Visit Charges Inpatient E&M: 72273 Subs Hosp L2
[2025-01-03 16:57] LABS: Bedside Glucose 127 mg/dL (74-106)
[2025-01-03] MEDS: MELATONIN 10 MG TABLET PO (21:37)
[2025-01-03 21:57] LABS: Vancomycin, Trough Level 6.9 ug/mL (5.0-15.0)
[2025-01-03] MEDS: Vancomycin HCl 1,250 MG in 0.9% Normal Saline (250mL Bag) 250 ML 167 MG IV (22:11)
--- NOTE | 2025-01-03 23:57 | PHA.PHARE_ITS ---
Consult Antibiotic Management Pharmacy has been consulted to manage selected antibiotic: Vancomycin Type of Intervention Type of Consult: Follow-up Labs Labs: Sodium 136 mmol/L (133-145) 01/03/25 06:15 Potassium 4.1 mmol/L (3.3-5.1) 01/03/25 06:15 Chloride 105 mmol/L (98-108) 01/03/25 06:15 Carbon Dioxide 18.8 mmol/L (21.0-32.0) L 01/03/25 06:15 Anion Gap 12 (5-15) 01/03/25 06:15 BUN 39 mg/dL (4-19) H 01/03/25 06:15 Creatinine 1.72 mg/dL (0.70-1.20) H 01/03/25 06:15 Est GFR (MDRD) Non-Af 38 (>60) L 01/03/25 06:15 BUN/Creatinine Ratio 22.5 RATIO (10-20) H 01/03/25 06:15 Glucose 184 mg/dL (70-99) H 01/03/25 06:15 Vancomycin Trough 6.9 ug/mL (5.0-15.0) 01/03/25 21:20 Microbiology Microbiology: Microbiology 01/03/25 10:00 Wound - Left Foot Gram Stain - Final 01/01/25 15:25 Blood Culture (Wb) - Right Forearm Bacteria Detection (PCR) - Final Staphylococcus aureus 01/01/25 15:25 Blood Culture (Wb) - Right Forearm Blood Culture - Final Staphylococcus aureus 01/01/25 15:30 Blood Culture (Wb) - Arm Left Blood Culture - Preliminary Staphylococcus aureus 01/02/25 03:57 Wound - Left Foot Gram Stain - Final 01/02/25 03:57 Wound - Left Foot Wound Culture - Preliminary Staphylococcus aureus 01/02/25 03:57 Wound - Left Foot Skin and Soft Tissue MRSA/MSSA (PCR - Final Staphylococcus aureus 01/01/25 17:10 Urine Catheter - Catheter Urine Culture - Preliminary Culture exhibits no growth. 01/02/25 11:55 Blood Culture (Wb) - Left Wrist Blood Culture - Preliminary 01/02/25 02:05 Mucosa - Nasopharyngeal Respiratory Panel (PCR) - Final 01/02/25 02:05 Mucosa - Nasopharyngeal Coronavirus COVID-19 PCR - Final Goal Trough Goal Trough: 10-15 mcg/mL Pharmacy Plan for Drug Dosing Pharmacy Plan for Drug Dosing: Pharmacy Service will continue to monitor and adjust dosing as required. TROUGH 6.9 @ 24 HOURS. INCREASE TO 1250MG Q24H AND DRAW TROUGH PRIOR TO 3RD D OSE Follow-Up Labs Follow-Up Labs: Trough: Vancomycin Date/Time Labs Ordered Labs to be done on [date and time ordered]: 01/04 @ 2130
[2025-01-04 03:35] VITALS: BP 128/77; PULSE 74; RESP 18; TEMP 36.6; O2SAT 97
[2025-01-04] MEDS: Heparin Injection (Vial) 5,000 UNIT/ML VIAL 5000 UNIT SC (05:35)
[2025-01-04] MEDS: Piperacil/Tazobactam 3.375 GM in 0.9% Normal Saline (50mL MB+) 50 ML IV ×3 (05:35→21:15)
[2025-01-04] MEDS: Levothyroxine 150 MCG Tablet PO (05:36)
[2025-01-04 06:18] LABS: Absolute Lymphocyte Count 0.26 X10^3/uL (0.83-4.51); Absolute Neutrophil Count 3.7 X10^3/uL (2.0-7.7); Basophil# 0.01 X10^3/uL; Basophil% 0.2 % (0-1); Eosinophil# 0.01 X10^3/uL; Eosinophils% 0.2 % (0-5); Hematocrit 36.4 % (40-54); Hemoglobin 12.1 g/dL (13.0-16.5); Lymphocyte # 0.26 X10^3/ul (0.83-4.51); Lymphocyte % 5.8 % (19-41); Mean Corp Hgb Conc 33.2 g/dL (32-36); Mean Corpuscular Hgb 32.5 pg (27.0-32.0); Mean Corpuscular Volume 97.8 fL (80-94); Mean Platelet Vol. 11.4 fl (6.2-12.0); Monocyte# 0.44 X10^3/uL; Monocyte% 9.8 % (0-10); NRBC Flagged by Analyzer 0 % (0-5); Neutrophil # 3.73 X10^3/uL (2.7-7.7); Neutrophil % 83.1 % (47-70); POSITIVE COUNT YES; POSITIVE DIFFERENTIAL YES; POSITIVE MORPHOLOGY YES; Platelet Count 76 K/mm3 (150-450); RBC Distribution Width CV 13.3 % (11.6-14.6); RBC Distribution Width SD 47.9 fl (35.1-43.9); Red Blood Count 3.72 M/mm3 (4.6-6.2); White Blood Count 4.5 K/mm3 (4.4-11.0)
[2025-01-04 06:37] LABS: Bedside Glucose 126 mg/dL (74-106)
[2025-01-04 06:43] LABS: Anion Gap 10 (5-15); BUN 46 mg/dL (4-19); BUN/Creat Ratio 30.4 RATIO (10-20); Calcium,Total 9.2 mg/dL (7.6-11.0); Carbon Dioxide 22.4 mmol/L (21.0-32.0); Chloride 108 mmol/L (98-108); Creatinine, Serum 1.51 mg/dL (0.70-1.20); EST Glomerular Filtration Rate 44 (>60); Estimated Creatinine Clearance 40.42 ml/min (50-250); Glucose 128 mg/dL (70-99); Potassium 4.1 mmol/L (3.3-5.1); Sodium Level 140 mmol/L (133-145)
[2025-01-04 06:59] LABS: Differential Indicated SCAN CRITERIA MET
[2025-01-04 07:00] VITALS: O2SAT 96
[2025-01-04 07:00] LABS: Differential Comment SCANNED
[2025-01-04 10:11] VITALS: BP 132/74; PULSE 62; RESP 16; TEMP 35.9
[2025-01-04 10:38] LABS: Bedside Glucose 113 mg/dL (74-106)
--- NOTE | 2025-01-04 12:18 | PN_ITS ---
Subjective Subjective Patient seen and examined. Patient was a bit more alert and responsive today. He does mumble incoherently when called. Unable to do review of systems due to confusion. He remains on 2 L of oxygen. He is for for surgery by podiatry tomorrow. Objective Data Objective Data Vital Signs: Vital Signs Temp Pulse Resp BP Pulse Ox O2 Del Method O2 Flow Rate 96.6 F L 62 16 132/74 H 96 Nasal Cannula 2 01/04/25 10:11 01/04/25 10:11 01/04/25 10:11 01/04/25 10:11 01/04/25 07:00 01/04/25 10:12 01/04/25 10:12 Oxygen Flow Rate (L/min) 2 Oxygen Delivery Method Nasal Cannula Weight: 197 lb 12.074 oz Body Mass Index (BMI) 24.7 Intake & Output: Intake and Output for Last 24 Hours 01/02/25 01/03/25 01/04/25 23:59 23:59 23:59 Intake Total 1622.5 / 1622.5 1650 / 1650 375 / 375 Output Total 300 / 800 650 / 650 Balance 1622.5 / 1622.5 1350 / 850 -275 / -275 Lab / Micro Data 01/04/25 05:19 01/04/25 05:19 Labs: Laboratory Results - last 24 hr 01/03/25 16:39: POC Glucose 127 H 01/03/25 21:20: Vancomycin Trough 6.9 01/04/25 05:19: WBC 4.5, RBC 3.72 L, Hgb 12.1 L, Hct 36.4 L, MCV 97.8 H, MCH 32.5 H, MCHC 33.2, RDW Std Deviation 47.9 H, RDW Coeff of Gary 13.3, Plt Count 76 L, MPV 11.4, Immature Gran % (Auto) 0.900, Neut % (Auto) 83.1 H, Lymph % (Auto) 5.8 L, [place] % (Auto) 9.8, Eos % (Auto) 0.2, Baso % (Auto) 0.2, Absolute Neuts (auto) 3.7, Absolute Lymphs (auto) 0.26 L, Nucleated RBC % 0, Differential Comment SCANNED, Sodium 140, Potassium 4.1, Chloride 108, Carbon Dioxide 22.4, Anion Gap 10, BUN 46 H, Creatinine 1.51 H, Estim Creat Clear Calc 40.42 L, Est GFR (MDRD) Non-Af 44 L, BUN/Creatinine Ratio 30.4 H, Glucose 128 H, Calcium 9.2 01/04/25 06:20: POC Glucose 126 H 01/04/25 10:19: POC Glucose 113 H Micro: Microbiology 01/02/25 11:55 Blood Culture (Wb) - Left Wrist Blood Culture - Final Staphylococcus aureus 01/03/25 10:00 Wound - Left Foot Gram Stain - Final 01/03/25 10:00 Wound - Left Foot Wound Culture - Preliminary Staphylococcus aureus 01/03/25 06:15 Blood Culture (Wb) - Right Hand Blood Culture - Preliminary 01/03/25 06:15 Blood Culture (Wb) - Venous Blood Culture - Preliminary 01/01/25 17:10 Urine Catheter - Catheter Urine Culture - Final Culture exhibits no growth. 01/02/25 03:57 Wound - Left Foot Gram Stain - Final 01/02/25 03:57 Wound - Left Foot Wound Culture - Final Staphylococcus aureus 01/02/25 03:57 Wound - Left Foot Skin and Soft Tissue MRSA/MSSA (PCR - Final Staphylococcus aureus 01/01/25 15:30 Blood Culture (Wb) - Arm Left Blood Culture - Final Staphylococcus aureus 01/01/25 15:25 Blood Culture (Wb) - Right Forearm Bacteria Detection (PCR) - Final Staphylococcus aureus 01/01/25 15:25 Blood Culture (Wb) - Right Forearm Blood Culture - Final Staphylococcus aureus 01/02/25 02:05 Mucosa - Nasopharyngeal Respiratory Panel (PCR) - Final 01/02/25 02:05 Mucosa - Nasopharyngeal Coronavirus COVID-19 PCR - Final Physical Exam Const average body habitus and healthy appearing Constitutional Narrative: lethargic, confused General Appearance: uncooperative Orientation / Consciousness: confused HEENT normocephalic, head/scalp atraumatic and hearing grossly normal bilaterally Mouth: dry mucous membranes Eyes EOMs intact bilaterally and conjunctivae normal Eyes Narrative: No scleral icterus Neck supple and no JVD Neck Narrative: Trachea midline Lymph Lymphatic: no lymphedema noted Resp Resp Narrative: mildly diminished breath sounds bibasally, no wheezes or crackles. On room air Auscultation: rales Cardio regular rate, regular rhythm, S1 normal heart sound, S2 normal heart sound and no murmurs GI normal to inspection, nondistended, normoactive bowel sounds, soft to palpation, non-tender and non-distended Extremity normal capillary refill, no clubbing, cyanosis or edema and no calf tenderness Extremity Narrative: Decreased lean muscle mass Skin Skin Narrative: Left foot wrapped in bandage Neuro No oriented x3 Neuro Narrative: Patient lethargic, confused Motor Exam: general weakness Psych Psych Narrative: Confused and lethargic. Assessment & Plan Assessment/Plan (1) Osteomyelitis of left foot: (2) MSSA bacteremia: (3) Sepsis: (4) Cellulitis of left foot: PLAN: Plan # Staph MSSA bacteremia in the setting of cellulitis of the foot * Patient's blood cultures are growing staph aureus * on IV vancomycin and zosyn * ID on board as well as podiatry * Urinalysis does not show any evidence of UTI. * Wound cultures growing staph aureus podiatry on board. 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 * TTE showed no evidence of vegetation and showed normal left ventricular size and systolic function with EF of 55% and moderate to severe mitral annular calcification and mild aortic stenosis with aortic valve mildly to moderately calcified and it appears tricuspid. * Repeat blood cultures from 01/03/2025 still growing gram-positive cocci in clusters in 2 out of 2 blood samples. * For foot surgery tomorrow. #Acute encephalopathy likely due to MRSA bacteremia: Management as above #Hyperglycemia: * This in the setting of impaired glucose tolerance. * Has known A1c of 6.1. * Will monitor closely for now and status sliding scale as needed #Thrombocytopenia: * Platelets are further down to 76 today. May be due to acute illness. Will monitor. * #CASEY: * Will monitor creatinine and hydrate with IV fluids * Creatinine today is down to 1.51. * Was 1.95 on admission. Baseline creatinine is around 1.3. * #Hypothyroidism: On Synthroid #Debility and weakness with failure to thrive: PT OT on board. Fall precautions. #History of onycholysis: On terbinafine which was held due to worsening kidney function #Dementia: * Unclear if he has behavioral disturbance. He continues to remain lethargic * Started on melatonin. * If patient becomes agitated we will have to consider starting Seroquel. DVT prophylaxis: Heparin. Hold heparin due to dropping platelets. If platelet drop continues we will get workup for heparin-induced thrombocytopenia Charges/Coding Visit Charges Inpatient E&M: 43212 Subs Hosp L2
[2025-01-04 16:27] VITALS: BP 123/68; PULSE 69; RESP 18; TEMP 37.1; O2SAT 97
[2025-01-04 16:41] LABS: Bedside Glucose 156 mg/dL (74-106)
[2025-01-04 21:15] VITALS: BP 153/88; PULSE 80; RESP 18; TEMP 36.8; O2SAT 95
[2025-01-04] MEDS: MELATONIN 10 MG TABLET PO (21:16)
[2025-01-04] MEDS: Vancomycin HCl 1,250 MG in 0.9% Normal Saline (250mL Bag) 250 ML 167 MG IV (22:23)
[2025-01-04] MEDS: RisperiDONE 1 MG Tablet PO (22:33)
[2025-01-05] VITALS (13 sets, daily range): BP systolic 111–158; BP diastolic 58–87; PULSE 54–73; RESP 16–20; TEMP 36.3–37; O2SAT 80–100; BMI 24.7
[2025-01-05] MEDS: Piperacil/Tazobactam 3.375 GM in 0.9% Normal Saline (50mL MB+) 50 ML IV ×2 (05:17→22:42)
[2025-01-05 06:08] LABS: Basophil# 0.01 X10^3/uL; Basophil% 0.2 % (0-1); Eosinophil# 0.01 X10^3/uL; Eosinophils% 0.2 % (0-5); Hematocrit 36.8 % (40-54); Mean Corp Hgb Conc 32.6 g/dL (32-36); Mean Corpuscular Hgb 32.2 pg (27.0-32.0); Mean Corpuscular Volume 98.7 fL (80-94); Mean Platelet Vol. 11.8 fl (6.2-12.0); Monocyte# 0.52 X10^3/uL; Monocyte% 10.4 % (0-10); NRBC Flagged by Analyzer 0 % (0-5); Neutrophil % 80.2 % (47-70); POSITIVE COUNT YES; POSITIVE DIFFERENTIAL YES; Platelet Count 83 K/mm3 (150-450); RBC Distribution Width CV 13.1 % (11.6-14.6); RBC Distribution Width SD 47.4 fl (35.1-43.9); Red Blood Count 3.73 M/mm3 (4.6-6.2)
[2025-01-05 06:50] LABS: Bedside Glucose 130 mg/dL (74-106)
[2025-01-05 06:52] LABS: Anion Gap 11 (5-15); BUN 43 mg/dL (4-19); BUN/Creat Ratio 32.8 RATIO (10-20); Calcium,Total 9.5 mg/dL (7.6-11.0); Chloride 108 mmol/L (98-108); EST Glomerular Filtration Rate 53 (>60); Estimated Creatinine Clearance 46.94 ml/min (50-250); Glucose 148 mg/dL (70-99); Potassium 3.6 mmol/L (3.3-5.1); Sodium Level 144 mmol/L (133-145)
--- NOTE | 2025-01-05 08:53 | PN.HOSP_ITS ---
Reason for Visit Reason for Visit: Diagnoses Sepsis, unspecified organism (01/01/25) Methicillin susceptible Staphylococcus aureus infection as the cause of diseases classified elsewhere (01/01/25) Other toxic encephalopathy (01/01/25) Cellulitis of left lower limb (01/01/25) Non-pressure chronic ulcer of other part of left foot with necrosis of bone (01/01/25) Osteomyelitis, unspecified (01/01/25) Acute kidney failure, unspecified (01/01/25) Tachycardia, unspecified (01/01/25) Altered mental status, unspecified (01/01/25) Fever, unspecified (01/01/25) Hyperglycemia, unspecified (01/01/25) Bacteremia (01/01/25) Unspecified open wound, left foot, initial encounter (01/01/25) Objective Data Objective Data Vital Signs: Vital Signs Temp Pulse Resp BP Pulse Ox O2 Del Method O2 Flow Rate 97.5 F L 64 18 121/71 H 97 Nasal Cannula 2 01/05/25 03:15 01/05/25 03:15 01/05/25 03:15 01/05/25 03:15 01/05/25 03:15 01/05/25 03:15 01/05/25 03:15 Oxygen Flow Rate (L/min) 2 Oxygen Delivery Method Nasal Cannula Weight: 197 lb 12.074 oz Body Mass Index (BMI) 24.7 Intake & Output: Intake and Output for Last 24 Hours 01/03/25 01/04/25 01/05/25 23:59 23:59 23:59 Intake Total 1650 / 1650 685 / 685 325 / 325 Output Total 300 / 800 700 / 950 400 / 400 Balance 1350 / 850 -15 / -265 -75 / -75 Lab / Micro Data 01/05/25 04:55 01/05/25 04:55 Labs: Laboratory Results - last 24 hr 01/04/25 10:19: POC Glucose 113 H 01/04/25 16:23: POC Glucose 156 H 01/04/25 21:43: Vancomycin Trough 9.0 01/05/25 04:55: WBC 5.0, RBC 3.73 L, Hgb 12.0 L, Hct 36.8 L, MCV 98.7 H, MCH 32.2 H, MCHC 32.6, RDW Std Deviation 47.4 H, RDW Coeff of Gary 13.1, Plt Count 83 L, MPV 11.8, Immature Gran % (Auto) 1.000 H, Neut % (Auto) 80.2 H, Lymph % (Auto) 8.0 L, [place] % (Auto) 10.4 H, Eos % (Auto) 0.2, Baso % (Auto) 0.2, Absolute Neuts (auto) 4.0, Absolute Lymphs (auto) 0.40 L, Nucleated RBC % 0, Sodium 144, Potassium 3.6, Chloride 108, Carbon Dioxide 25.0, Anion Gap 11, BUN 43 H, Creatinine 1.30 H, Estim Creat Clear Calc 46.94 L, Est GFR (MDRD) Non-Af 53 L, BUN/Creatinine Ratio 32.8 H, Glucose 148 H, Calcium 9.5 01/05/25 06:27: POC Glucose 130 H Micro: Microbiology 01/03/25 06:15 Blood Culture (Wb) - Venous Blood Culture - Preliminary Staphylococcus aureus 01/03/25 06:15 Blood Culture (Wb) - Right Hand Blood Culture - Preliminary Staphylococcus aureus 01/03/25 10:00 Wound - Left Foot Gram Stain - Final 01/03/25 10:00 Wound - Left Foot Wound Culture - Final Meth. resistant Staph. aureus 01/02/25 11:55 Blood Culture (Wb) - Left Wrist Blood Culture - Final Staphylococcus aureus 01/01/25 17:10 Urine Catheter - Catheter Urine Culture - Final Culture exhibits no growth. 01/02/25 03:57 Wound - Left Foot Gram Stain - Final 01/02/25 03:57 Wound - Left Foot Wound Culture - Final Staphylococcus aureus 01/02/25 03:57 Wound - Left Foot Skin and Soft Tissue MRSA/MSSA (PCR - Final Staphylococcus aureus 01/01/25 15:30 Blood Culture (Wb) - Arm Left Blood Culture - Final Staphylococcus aureus 01/01/25 15:25 Blood Culture (Wb) - Right Forearm Bacteria Detection (PCR) - Final Staphylococcus aureus 01/01/25 15:25 Blood Culture (Wb) - Right Forearm Blood Culture - Final Staphylococcus aureus 01/02/25 02:05 Mucosa - Nasopharyngeal Respiratory Panel (PCR) - Final 01/02/25 02:05 Mucosa - Nasopharyngeal Coronavirus COVID-19 PCR - Final Physical Exam Narrative Seen and examined. Discussed with the staff registered nurse Patient close confused and disoriented, could not answer simple questions like /age and his complaint though he told me his last name Mr. Razo. As per RN, he has dementia and has been disoriented not answering full question for last 2 days on his assessment. He is on a pur?ed diet. Physical exam General: Awake but could not answer simple questions/limited comprehension. Orientation cannot be ascertained or disoriented HEENT: Atraumatic, PERRLA, EOMI, Normocephalic. Oral: Oral mucosa dry. No Gingival or Mucosal Lesions/ Ulcerations Neck: Supple, No JVD, Negative Carotid Bruits Chest wall/Lungs: Air entry diminished in bilateral lung bases. No crepitation/rhonchi Cardiovascular: Regular rate and rhythm, Normal S1,S2, No M/G/R Abdomen: Bowel Sounds Present, Soft, Non Tender, Non-Distended : No dysuria. No renal angle tenderness. No suprapubic tenderness. Extremities: No edema, Capillary Refill Less than 3 Seconds Skin: Bilateral feet on the heel pad questions. Left foot bandage. Musculoskeletal: ROM limited at knees and hips. Decreased muscle mass. No Tenderness to Palpation of Joints or Extremities Neurological: detailed neuroexam unobtainable no acute focal neurological deficit. Psych/Mental Status: Flat affect. Dementia Assessment & Plan Assessment/Plan (1) Osteomyelitis of left foot: (2) MSSA bacteremia: (3) Sepsis: (4) Cellulitis of left foot: PLAN: Plan # Staph MSSA bacteremia in the setting of cellulitis of the foot * Patient's blood cultures are growing staph aureus * on IV vancomycin and zosyn * ID on board as well as podiatry * Urinalysis does not show any evidence of UTI. * Wound cultures growing staph aureus podiatry on board. 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 * TTE showed no evidence of vegetation and showed normal left ventricular size and systolic function with EF of 55% and moderate to severe mitral annular calcification and mild aortic stenosis with aortic valve mildly to moderately calcified and it appears tricuspid. * Repeat blood cultures from 01/03/2025 still growing gram-positive cocci in clusters in 2 out of 2 blood samples. * For foot surgery tomorrow. 01/05: Plan for surgery today. Wound culture PCR shows MSSA. #Acute encephalopathy likely due to MSSA bacteremia with history of dementia: Management as above #Hyperglycemia: * This in the setting of impaired glucose tolerance. * Has known A1c of 6.1. * Will monitor closely for now and status sliding scale as needed #Thrombocytopenia: * Platelets are further down to 76 May be due to acute illness. Will monitor. * 01/05: Platelet count 83K. H&H 12/36.8%. #CASEY: * Will monitor creatinine and hydrate with IV fluids * Creatinine today is down to 1.51. * Was 1.95 on admission. Baseline creatinine is around 1.3. 01/05: BUN/creatinine 43/1.3. Continue and maintain intake and output charting and fluid correction #Hypothyroidism: On Synthroid #Debility and weakness with failure to thrive: PT OT on board. Fall precautions. #History of onycholysis: On terbinafine which was held due to worsening kidney function #Dementia: * Unclear if he has behavioral disturbance. He continues to remain lethargic * Started on melatonin. * If patient becomes agitated we will have to consider starting Seroquel. DVT prophylaxis: Heparin. Hold heparin due to dropping platelets. Admitting platelet count was 178 but patient had thrombocytopenia 1 40K on 09/17/2024. And showing improvement on Sunday therefore HIT it is unlikely Charges/Coding Visit Charges Inpatient E&M: 31071 Subs Hosp L2
[2025-01-05] MEDS: 0.9% Normal Saline (1000mL) 1,000 ML 75 ML IV (09:32)
[2025-01-05 09:56] LABS: Bedside Glucose 137 mg/dL (74-106)
--- NOTE | 2025-01-05 11:39 | WOUNDNOTE ---
Pt scheduled for surgery later today with Dr Forman. dressing is D&I to the left foot. will monitor.
--- NOTE | 2025-01-05 14:30 | RAD_ITS ---
PROCEDURE: FOOT 2 VIEWS 01/05/2025 REASON FOR EXAM: INCISION BONE CORTEX 5TH METATARSAL HEAD TECHNIQUE: FOOT 2 VIEWS COMPARISON: 01/02/2025. FINDINGS: Partial resection of the 5th digit was performed. Single view limits assessment. 0.2 seconds of fluoroscopic time. 0.1309 mGy. RAD/Foot 2 Views IMPRESSION: As above. Reading Location: [id number]
--- NOTE | 2025-01-05 14:48 | PCM.PRE.AN2 ---
ASA Classification* ASA Classification ASA Classification: 3 Assessment & Plan Anesthesia* Anesthesia Assessment Anesthesia Assessment: Discussed sedation and/or anesthesia options, risks, benefits, and alternatives with patient/parents/legal guardian/POA. Questions invited. The patient/parents/legal guardian/POA seems to understand and agrees to proceed with anesthesia plan. Reviewed the physical assessment, medical history, allergy history and patient home medications list prior to surgery/procedure/anesthetic and documented any changes. Performed airway and anesthesia risk assessments. Anesthesia Type Anesthesia Type: MAC (Discussed anesthesia with patient's daughter the POA, Sade Pena. 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 She does not believe he feels much down there at all.) History Source History Obtained from:: Chart Anesthesia Focused Assessment* Temperature: 98.6 F Pulse Rate: 73 Blood Pressure: 139/73 Respiratory Rate: 18 Pulse Ox: 94 Oxygen Delivery Method: Nasal Cannula Oxygen Flow Rate (L/min): 2 Airway Assessment Mouth opens: >3 cm Mallampati Score: IV Teeth Condition: Missing (Patient is edentulous.) Comment: Patient has dementia. Unable to cooperate with airway exam. Labs Anesthesia Preop lab: CBC WBC 5.0 K/mm3 (4.4-11.0) 01/05/25 04:55 01/05/25 RBC 3.73 M/mm3 (4.6-6.2) L 01/05/25 04:55 01/05/25 Hgb 12.0 g/dL (13.0-16.5) L 01/05/25 04:55 01/05/25 Hct 36.8 % (40-54) L 01/05/25 04:55 01/05/25 Plt Count 83 K/mm3 (150-450) L 01/05/25 04:55 01/05/25 CHEMISTRY Potassium 3.6 mmol/L (3.3-5.1) 01/05/25 04:55 01/05/25 Sodium 144 mmol/L (133-145) 01/05/25 04:55 01/05/25 Magnesium 2.2 mg/dL (1.5-2.2) 01/02/25 04:10 01/02/25 Phosphorus 2.1 mg/dL (2.7-4.5) L 01/02/25 04:10 01/02/25 BUN 43 mg/dL (4-19) H 01/05/25 04:55 01/05/25 Creatinine 1.30 mg/dL (0.70-1.20) H 01/05/25 04:55 01/05/25 Glucose 148 mg/dL (70-99) H 01/05/25 04:55 01/05/25 POC Glucose 137 mg/dL (74-106) H 01/05/25 09:39 01/05/25 TSH 1.270 uIU/mL (0.300-4.200) 01/02/25 04:10 01/02/25 COAG PT 12.7 SECONDS (11.7-14.9) 01/01/25 18:05 01/01/25 Pre-Assessment Diagnosis/Proposed Procedure Planned Operative Procedure(s): Excision of the bony cortex with delayed primary closure of the left foot. Anesthesia History Anesthesia History - headline writer: Anesthesia History - headline writer Hx Hospitalization Any Problems With Anesthesia No 01/04/25 20:22 Cholinesterase deficiency No 01/04/25 20:22 You/Your Family Experience No 01/04/25 20:22 fever (hyperthermia) with Relationship Recent Exposure to Contagious No 01/04/25 20:22 Disease Does patient have nerve No 01/04/25 20:22 stimulator Patient instructed to have No 01/04/25 20:22 device shut off --Does patient have Pacemaker No 01/05/25 06:42 or ICD? When Was Last Pacemaker Check QUESTION #4 FULL TEXT: You/Your Family Experience fever (hyperthermia) with Anesthesia Last Oral Intake Last Oral intake: Last Oral Intake NPO since 00:00 01/05/25 06:42 Meds taken in AM with sips of No 01/05/25 06:42 water? Meds patient instructed to take am of surgery PONV PONV - headline writer: PONV - headline writer Female HX of Motion Sickness HX of N/V After Surgery Non-Smoker Duration of Surgery greater than 60 minutes Number of Risk Factors PONV Score Height & Weight Height & Weight: Anesthesia: Height & Weight Height 6 ft 3 in 01/05/25 11:28 Weight: 89.7 kg 01/05/25 11:28 Body Mass Index (BMI) 24.7 01/05/25 06:42 Respiratory Assessment Respiratory Assessment - headline writer: Respiratory Tract Infection Hx - headline writer Hx Respiratory Tract Infection No 01/04/25 20:22 STOP Sleep Apnea STOP Sleep Apnea - headline writer: STOP Sleep Apnea - headline writer Hx Hypertension No 01/05/25 13:29 Hx Sleep Apnea No 01/02/25 03:40 CPAP BIPAP Do you snore loudly (louder No 01/02/25 03:40 than talking or can be heard Do you often feel tired/ No 01/02/25 03:40 fatigued/ sleepy during daytime? Has anyone observed you stop No 01/02/25 03:40 breathing during sleep? STOP Results Negative 01/02/25 03:40 QUESTION #5 FULL TEXT : Do you snore loudly (louder than talking or can be heard through closed doors)? Tobacco Use History Tobacco Use History - headline writer: Tobacco Use History - headline writer Tobacco Use Smoking Status Never smoker 01/02/25 03:40 Hx Tobacco Use No 01/02/25 03:40 Years Smoking Packs Smoked per Day Smoking Cessation Date was within the last 15 years Hx Smoking Cessation Date Hx Smoking Cessation Counseling Hematologic Medial History Hematologic Hx - headline writer: Hematologic Medical Hx - soap drier tender Hx of Blood Transfusion Hx of Transfusion in last 3 Months Date of Last Transfusion (if within last 3 months) Ever experience any problems with transfusion(s)? Specify any problems Hx of Preganancy in last 3 Months Nurse Filling Out Transfusion & Questions: Date: Time: Patient unable to answer at Yes 01/02/25 03:40 this time (ie. confused, unrespo /Reproduction History /Reproductive History - headline writer: /Reproductive Hx- headline writer Hx Now Gestational Age (in weeks): EDC: Hx Hx Para Hx Section SAB Active Medications Active Medications: Current Medications Generic Name Dose Route Start Last Admin Trade Name Freq PRN Reason Stop Dose Admin Acetaminophen 650 mg 01/02/25 02:40 01/02/25 14:27 Acetaminophen 325 Mg Tablet PO 650 mg Q6H PRN PRN Administration Pain 1-10 Or Fever>100.7 Glucagon 1 mg 01/02/25 02:40 Glucagon 1 Mg/Ml Syringe IM X1 PRN HYPOGLYCEMIA Protocol Vancomycin IV-PHARMACY TO DOSE 500 mls @ 250 mls/hr 01/02/25 02:40 1 each/ Sodium Chloride IV X1 PRN Rx to Dose Protocol Piperacillin Sod/Tazobactam 50 mls @ 12.5 mls/hr 01/02/25 06:00 01/05/25 14:09 Sod 3.375 gm/ Sodium Chloride IV Not Given Q8 RONN Dextrose 250 mls @ 0 mls/hr 01/02/25 02:40 Dextrose 10%-Water IV .Q0M PRN HYPOGLYCEMIA Protocol As Directed Sodium Chloride 250 mls @ 15 mls/hr 01/02/25 02:56 IV .[id number] PRN Saline Flush Sodium Chloride 250 mls @ 15 mls/hr 01/02/25 02:56 IV .[id number] PRN Additional IVPB Infusion Vancomycin HCl 1,250 mg/ 275 mls @ 167 mls/hr 01/03/25 22:00 01/05/25 00:36 Sodium Chloride IV Infused Q24H RONN Infusion Sodium Chloride 1,000 mls @ 75 mls/hr 01/05/25 09:25 01/05/25 09:32 IV 01/05/25 22:44 75 mls/hr .[id number] RONN Administration Insulin Human Lispro 0 unit 01/02/25 07:00 01/05/25 11:01 Insulin Lispro 100 Unit/Ml Insuln.Pen SC Not Given [facility] Protocol Levothyroxine Sodium 150 mcg 01/02/25 06:00 01/05/25 05:17 Levothyroxine 150 Mcg Tablet PO Not Given DAILY@0600 RONN Melatonin 10 mg 01/02/25 22:00 01/04/25 21:16 Melatonin 10 Mg Tablet PO 10 mg QHS RONN Administration Ondansetron HCl 4 mg 01/02/25 02:40 Ondansetron 4 Mg/2 Ml Vial IV Q8H PRN PRN NAUSEA/VOMITING Senna 1 tablet 01/02/25 02:40 Senna Tablet PO BID PRN constipation Senna/Docusate Sodium 2 tablet 01/05/25 10:00 01/05/25 09:33 Senna/Docusate Sodium 1 Tablet PO Not Given BID RONN Sodium Chloride 10 - 40 ml 01/02/25 02:56 01/02/25 14:05 0.9% Saline Lock 10 Ml Syringe IV 10 ml UD PRN Administration SALINE FLUSH Vancomycin Protocol 1 lab 01/05/25 20:30 Vancomycin Trough/Random Due 01/05/25 22:30 DAILY [facility] Medical History Agitation due to dementia Closed head injury Fall Dementia Hypothyroidism Home Medications ?Medication ?Instructions ?Recorded ?Last Taken ?Type acetaminophen 500 mg capsule 1,000 mg PO BID 01/01/25 Unknown History (Mapap (acetaminophen)) acetaminophen 500 mg tablet 500 mg PO BID PRN fever or pain 01/01/25 Unknown History doxycycline hyclate 100 mg capsule 100 mg PO BID 01/01/25 Unknown History levothyroxine 150 mcg tablet 150 mcg PO DAILY 01/01/25 Unknown History meloxicam 7.5 mg tablet 7.5 mg PO DAILY 01/01/25 Unknown History sennosides 8.6 mg tablet (Kaylene-catina) 8.6 mg PO BID PRN constipation 01/01/25 Unknown History terbinafine HCl 250 mg tablet 250 mg PO DAILY 01/01/25 Unknown History Allergy/AdvReac Type Severity Reaction Status Date / Time shellfish derived Allergy unknown Verified 01/01/25 15:16 Social History Smoking Status: Never smoker Review of Systems (Anesthesia) ROS Narrative System reviewed and no additional complaints, except as documented.
[2025-01-05] MEDS: Bupivacaine Mpf 0.5% 30 ML VIAL (15:12)
[2025-01-05 15:13] LABS: Bedside Glucose 130 mg/dL (74-106)
--- NOTE | 2025-01-05 15:29 | PCM.PN.ID ---
Physical Exam Narrative OR planned today, no fever Const no apparent distress Orientation / Consciousness: lethargic Resp normal air movement and clear to auscultation bilaterally Cardio regular rate and regular rhythm GI soft to palpation, non-tender and non-distended Skin no rashes or lesions noted Skin Narrative: no new rash ID ID: Route of nutrition/ use of supplements: [] Nutritional Intake: [] IV Site: [] Holguin Catheter: [] Assessment & Plan Assessment/Plan (1) Sepsis: PLAN: sepsis due to L foot osteo complicated by mssa bacteremia per pcr. Pt is DNR-CC. OR planned with podiatry. Will cont vanc/zosyn and check repeat bcx. No veg seen on TTE but difficult study. Would need at least 6 weeks iv abx at discharge. Will follow (2) MSSA bacteremia: (3) Altered mental status: (4) Acute kidney injury:
--- NOTE | 2025-01-05 15:30 | AMP_PTH ---
PATIENT: GANESH FLORES LOC: [facility] U#:[id number] AGE/SX: 89/M ROOM: [facility] RE01/01/[address]: Dr. Dusty Abad MD : [id number] BED: 1 DIS: 01/08/2025 SPEC #: [id number] RECD: 01/06/25 05:58 STATUS: GOOD REQ #: [id number] JORGE: 01/05/25 15:[address]: Jaden Forman DEPT: SURGICAL PATHOLOGY RECD BY: Korey Montero ENTERED: 01/06/25 09:17 SP TYPE: Amputation OTHR DR: DO Dr. Sofia Montiel MD Dr. Prakash Chand, MD Dr. Robert Leininger, MD Dr. Scott Wilkins, DO Tissues: A - Toe, NOS B - Toe, NOS C - Toe, NOS Procedures: Decalcification bone/plaque Surgery Specimen Level IV HEADER OPERATION: Incision bone cortex 5th metatarsal head, primary closure PRE-OP DIAGNOSIS: Open wound of left foot TISSUE SUBMITTED: A- Left 5th toe, B- Left foot 5th metatarsal clean margin, C- Left foot bone cortex 5th metatarsal MICROSCOPIC DIAGNOSIS A. Left foot, 5th toe, resection: * Articular bone with marked reactive/degenerative changes and focal slight chronic inflammation. B. Left foot, 5th metatarsal, clean margin, excision: * Osteomyelitis. C. Left foot, 5th metatarsal, bone cortex, excision: * Suppurative osteomyelitis. MICROSCOPIC DESCRIPTION Slides are reviewed. GROSS DESCRIPTION Received in 3 formalin containers labeled with the patient's name and date of .? Designated as: A.? Left foot: 5th toe is a 1.6 x 1.0 x 1.0 cm paez-pink to red irregular bone fragment.? Sectioning reveals yellow, focally erythematous medullary bone.? Entirely submitted in 1 cassette, following decalcification. B.? Left foot: 5th metatarsal clean margin is a 1.3 x 1.0 x 0.4 cm paez to red irregular bone fragment, primarily comprised of cortical bone; the specimen is unoriented.? Entirely submitted in 1 cassette, following decalcification. C.? Left foot: Bone cortex 5th metatarsal is a 1.5 x 1.4 x 1.1 cm paez to light brown, irregular bone fragment with minimal attached soft tissue.? Sectioning reveals paez-yellow to red, trabeculated to spongy medullary bone.? Entirely submitted in 1 cassette, following decalcification. [place] 01/06/2025 CPT:16684w6,80603f2
--- NOTE | 2025-01-05 17:18 | PCM.OPRPT ---
Problems Associated Problem List Diagnoses (1) Osteomyelitis of left foot: (2) Non-pressure chronic ulcer of other part of left foot with necrosis of bone: Operative Report (Standard) Operative Information Date of Procedure: 01/05/25 Pre-Operative Diagnosis: 1. Osteomyelitis, fifth metatarsal, left foot 2. Full-thickness ulceration down to bone, left foot Post-Operative Diagnosis: Same as preoperative diagnosis Surgery/Procedure Performed: Procedure #1: Incision bone cortex, fifth metatarsal and fifth digit, left foot Procedure #2: Delayed primary closure, left foot amphibious operations officer: No Type of Anesthesia: Local MAC RN Documented Start/Stop Times: Operation Date: 01/05/25 15:30 Case Time Into Pre-Op 01/05/25 14:31 Out of Pre-Op 01/05/25 15:41 Anesthesia Start 01/05/25 15:46 Into Room 01/05/25 15:46 Procedure Start 01/05/25 16:12 Procedure End 01/05/25 17:11 Anesthesia End 01/05/25 17:16 Out of Room 01/05/25 17:16 Procedure Start Time: 16:12 Procedure Stop Time: 17:11 Select all DRAINS/GRAFTS/IMPLANTS that apply: None Special Medications: Per anesthesia Estimated Blood Loss: 60 mL Fluids Replaced: Per anesthesia Specimen collected: Yes Description of specimen(s) removed: 1. Prelavage culture, left foot 2. Post lavage culture, left foot 3. Incision of bone cortex, fifth metatarsal, left foot 4. Incision bone cortex, fifth digit, left foot 5. Clean margin, fifth metatarsal, left foot Description of surgery: Indications For Operation: Mr. Razo is a 81-year-old male who was admitted to [facility] for left foot infection and cellulitis. Patient was initially seen at the emergency room secondary to fall. Upon admission it was noted that the patient did have positive blood cultures and has been treated by infectious disease with IV antibiotics vancomycin and Zosyn. Patient has been medically managed by medicine. Due to the concern for underlying bone infection it was deemed necessary at this time to take the patient the operating room performed above procedure to help decrease the patient's pain and rid his body of the bone infection. Due to concern for bone infection I did discuss surgical options with the power of x ray operator which is his daughter and she was agreeable to all surgical intervention at this time. The nature of the problem, anticipated procedures, postop recovery/convalences and risk/complications include but not limited to infection, wound healing complications, digital amputation, hypertrophic scarring, numbness, tingling, chronic pain, CRPS, over and under correction, recurrence of deformity, DVT and or PE and the need for further surgery have been discussed in great detail with the patient. All questions have been answered to the patient's satisfaction. There are no guarantees given as to the outcome of the procedure. Description of Procedure: Under mild sedation, the patient was brought into the operating room and placed on the operating table in supine position. Once the patient was under monitored anesthesia care anesthesia, the left lower extremity was blocked using approximately 30 cc 0.5% Marcaine plain. No tourniquet was used for this case. Next, the left lower extremity was prepped and draped in normal aseptic manner. Next, a timeout was then undertaken verifying the correct patient, extremity, visibility of preoperative markings, availability of the equipment. Procedure #1: Incision bone cortex, fifth metatarsal and fifth digit, left foot (CPT code: 65134, 54842?T4) Next, attention was directed to the left foot to the level of the fifth metatarsal and fifth digit. It was noted that was evidence of a full-thickness wound to the subfifth metatarsal with evidence of necrosis with positive probe to bone. Using a sterile skin marker a longitudinal dorsal incision was marked out encompassing the fifth metatarsal phalangeal joint and fifth metatarsal. Using a #15 blade a full-thickness vision down to bone was carried out with continued blunt dissection with a castañeda elevator. Once the head of the base of the proximal phalanx and head and diaphysis of the fifth metatarsal osteotomy was marked out using the sagittal saw and #114 blade with mini C arm fluoroscopy. Once confirmed the incision bone cortex was carried down the diaphysis of the fifth metatarsal head which was removed with sharp dissection following the osteotomy. The fifth metatarsal was passed to the to the back table to be for half for microbiology culture sensitivity and the other half for pathology. Next, attention was directed to the base of the proximal phalanx fifth digit, continue sharp dissection was carried down around the base and using the sagittal saw and #114 blade with mini C arm fluoroscopy, incision bone cortex was performed removing the base of the proximal phalanx which was passed the back table to be for half for microbiology culture sensitivity and the other half from pathology. Next, prelavage cultures were taken and passed back table to be sent off for microbiology culture and sensitivity. Next, 4000 mL of warm pulse lavage were used to irrigate the full-thickness incision and full-thickness wound, following pulse lavage there showed evidence of healthy granular tissue in the full-thickness wound as well as the incision. Next, post large cultures were taken and passed back to be sent off for microbiology and culture and sensitivity. Using a clean #114 blade and sagittal saw, a clean margin was taken from the diaphysis of the fifth metatarsal and with half to microbiology culture and sensitivity and the other half to pathology. Let it be noted that the clean margin bone was solid at the dorsal and plantar cortex when osteotomy was performed. Procedure #2: Delayed primary closure, left foot (CPT code: 60341) Next, attention was directed to the incision, the incision was flushed with copious normal saline. The deep layer was reapproximated and closed with 3-0 Vicryl in running locking suture technique. The subcutaneous layer was reapproximated closed with 3-0 Vicryl and running suture technique. The dorsal incision skin was reapproximated closed with 3-0 nylon in simple interrupted suture technique. Next attention was directed to the full-thickness wound the deep layer was reapproximated closed using 3-0 Vicryl in buried suture technique and delayed primary closure was performed on the full-thickness wound with a combination of simple interrupted suture technique as well as horizontal mattress suture technique using 3-0 nylon. The left lower extremities were cleaned and patted dry. The incision was dressed with Betadine soaked Adaptic, 1 Betadine soaked gauze, 4 x 4's, 1 ABD pad and a single layer Salguero with light compression was applied to the left lower extremity. The patient tolerated the procedure and anesthesia well and apparent satisfactory condition and was transported to the PACU for further monitoring prior to discharge back to the floor. Vital signs stable and vascular status intact to all digits bilateral. Post Operative Plan: Weightbearing: Partial weightbearing to left heel with surgical shoe and assistance. Full weightbearing left lower extremity with assistance. Antibiotics: Per infectious disease, vancomycin and Zosyn DVT Prophylaxis: Lovenox Holguin: None Dressing: Betadine soaked Adaptic, 1 Betadine soaked gauze, 4 x 4's, 1 ABD, single-layer Salguero with light compression left lower extremity. X-Rays: Post-operative films taken on the operating room. Pain Medication: Per medicine Follow-up: From a podiatry standpoint the patient is cleared to discharge back to intermediate facility once the patient has been cleared by the medicine team as well as by infectious disease team. Podiatry will continue to follow the patient while in house until discharge. Thank you for letting me be involved in the patient care. Surgical Findings: 1. Evidence of soft fifth metatarsal and base of the proximal phalanx to the left foot at the time of the procedure. Once the bone was removed there is evidence of hard cortex to the proximal diaphysis of the fifth metatarsal and diaphysis of the proximal phalanx, fifth metatarsal and fifth digit left foot. 2. After 4000 mL of warm pulse lavage there was evidence of healthy granular tissue with sanguinous drainage. Complications Complications: No Admit VTE Documentation VTE Present on Admission: No VTE Mechan Device Prophylaxis: SCD's VTE Pharm Prophylaxis ordered?: Yes
--- NOTE | 2025-01-05 17:21 | PCM.POST.ANE ---
Anesthesia: Postop Eval I Current Vital Signs Temperature: 97.3 F Pulse Rate: 66 Blood Pressure: 111/63 Respiratory Rate: 20 Pulse Ox: 96 Oxygen Delivery Method: Non-Rebreather Assessment Airway patent: Yes Spontaneous unlabored respirations: Yes Mental status: Asleep nausea: No Vomiting: No Anesthesia Complication: No Fluid Hydration Crystalloid volume administer (ml): 700 Total IV fluid infused: 700 Progress Note Anesthesia document: Postop Eval 1 completed: Yes
--- NOTE | 2025-01-05 18:52 | PCM.POSTANE2 ---
Anesthesia Postop Eval I Sum Postop Eval Completion status Anesthesia document: Postop Eval 1 completed: Yes Anesthesia Postop Eval I Summary Anesthesia Postop Eval I Summary: Anesthesia Postop Eval I: Assessment Summary Airway patent Yes 01/05/25 17:25 Spontaneous unlabored Yes 01/05/25 17:25 respirations Mental status Asleep 01/05/25 17:25 nausea No 01/05/25 17:25 Vomiting No 01/05/25 17:25 Anesthesia Postop Eval I: Fluid Summary Crystalloid volume administer 700 01/05/25 17:25 (ml) Colloids volume administered ( ml) Blood Product volume administered (ml) Total IV fluid infused 700 01/05/25 17:25 Anesthesia Postop Eval I: Summary Notes Anesthesia Complication No 01/05/25 17:25 Anesthesia Complication Comment: Post-operative progress note Anesthesia: Postop Eval II Evaluation Mental status: Asleep Pain Level: 0 nausea: No Vomiting: No Complications Anesthesia Complication: No
[2025-01-05 21:58] LABS: Vancomycin, Trough Level 9.8 ug/mL (5.0-15.0)
--- NOTE | 2025-01-05 22:12 | PCM.RX.CS ---
Consult Antibiotic Management Pharmacy has been consulted to manage selected antibiotic: Vancomycin Type of Intervention Type of Consult: Follow-up Labs Labs: Sodium 144 mmol/L (133-145) 01/05/25 04:55 Potassium 3.6 mmol/L (3.3-5.1) 01/05/25 04:55 Chloride 108 mmol/L (98-108) 01/05/25 04:55 Carbon Dioxide 25.0 mmol/L (21.0-32.0) 01/05/25 04:55 Anion Gap 11 (5-15) 01/05/25 04:55 BUN 43 mg/dL (4-19) H 01/05/25 04:55 Creatinine 1.30 mg/dL (0.70-1.20) H 01/05/25 04:55 Est GFR (MDRD) Non-Af 53 (>60) L 01/05/25 04:55 BUN/Creatinine Ratio 32.8 RATIO (10-20) H 01/05/25 04:55 Glucose 148 mg/dL (70-99) H 01/05/25 04:55 Vancomycin Trough 9.8 ug/mL (5.0-15.0) 01/05/25 21:29 Microbiology Microbiology: Microbiology 01/03/25 10:00 Wound - Left Foot Gram Stain - Final 01/03/25 10:00 Wound - Left Foot Wound Culture - Final Meth. resistant Staph. aureus 01/03/25 10:00 Wound - Left Foot Anaerobic Culture - Preliminary Checking for anaerobes, further studies to follow. 01/03/25 06:15 Blood Culture (Wb) - Venous Blood Culture - Preliminary Staphylococcus aureus 01/03/25 06:15 Blood Culture (Wb) - Right Hand Blood Culture - Preliminary Staphylococcus aureus 01/02/25 11:55 Blood Culture (Wb) - Left Wrist Blood Culture - Final Staphylococcus aureus 01/01/25 17:10 Urine Catheter - Catheter Urine Culture - Final Culture exhibits no growth. 01/02/25 03:57 Wound - Left Foot Gram Stain - Final 01/02/25 03:57 Wound - Left Foot Wound Culture - Final Staphylococcus aureus 01/02/25 03:57 Wound - Left Foot Skin and Soft Tissue MRSA/MSSA (PCR - Final Staphylococcus aureus 01/01/25 15:30 Blood Culture (Wb) - Arm Left Blood Culture - Final Staphylococcus aureus 01/01/25 15:25 Blood Culture (Wb) - Right Forearm Bacteria Detection (PCR) - Final Staphylococcus aureus 01/01/25 15:25 Blood Culture (Wb) - Right Forearm Blood Culture - Final Staphylococcus aureus 01/02/25 02:05 Mucosa - Nasopharyngeal Respiratory Panel (PCR) - Final 01/02/25 02:05 Mucosa - Nasopharyngeal Coronavirus COVID-19 PCR - Final Goal Trough Goal Trough: 10-15 mcg/mL Pharmacy Plan for Drug Dosing Pharmacy Plan for Drug Dosing: Pharmacy Service will continue to monitor and adjust dosing as required. TROUGH 9.8 @ 23 HOURS. NO CHANGES, FOLLOW UP TROUGH IN 2 DAYS Follow-Up Labs Follow-Up Labs: Trough: Vancomycin Date/Time Labs Ordered Labs to be done on [date and time ordered]: 01/07 @ 4736
[2025-01-05] MEDS: Vancomycin HCl 1,250 MG in 0.9% Normal Saline (250mL Bag) 250 ML 167 MG IV (22:42)
[2025-01-06 03:33] VITALS: BP 112/72; PULSE 59; RESP 18; TEMP 37.1; O2SAT 98
[2025-01-06] MEDS: Piperacil/Tazobactam 3.375 GM in 0.9% Normal Saline (50mL MB+) 50 ML IV ×3 (05:24→21:55)
[2025-01-06] MEDS: Levothyroxine 150 MCG Tablet PO (05:29)
[2025-01-06 06:59] LABS: Absolute Lymphocyte Count 0.57 X10^3/uL (0.83-4.51); Absolute Neutrophil Count 4.8 X10^3/uL (2.0-7.7); Basophil# 0.02 X10^3/uL; Basophil% 0.3 % (0-1); Eosinophil# 0.11 X10^3/uL; Eosinophils% 1.8 % (0-5); Hematocrit 35.8 % (40-54); Hemoglobin 11.5 g/dL (13.0-16.5); Lymphocyte # 0.57 X10^3/ul (0.83-4.51); Lymphocyte % 9.2 % (19-41); Mean Corp Hgb Conc 32.1 g/dL (32-36); Mean Corpuscular Hgb 32.1 pg (27.0-32.0); Mean Platelet Vol. 11.3 fl (6.2-12.0); Monocyte# 0.52 X10^3/uL; Monocyte% 8.4 % (0-10); NRBC Flagged by Analyzer 0 % (0-5); Neutrophil # 4.84 X10^3/uL (2.7-7.7); Neutrophil % 78.2 % (47-70); POSITIVE DIFFERENTIAL YES; Platelet Count 106 K/mm3 (150-450); RBC Distribution Width CV 13.2 % (11.6-14.6); RBC Distribution Width SD 48.8 fl (35.1-43.9); Red Blood Count 3.58 M/mm3 (4.6-6.2); White Blood Count 6.2 K/mm3 (4.4-11.0)
[2025-01-06 07:14] LABS: Bedside Glucose 113 mg/dL (74-106)
[2025-01-06 07:49] LABS: Anion Gap 9 (5-15); BUN 33 mg/dL (4-19); BUN/Creat Ratio 27.8 RATIO (10-20); Calcium,Total 9.2 mg/dL (7.6-11.0); Carbon Dioxide 25.7 mmol/L (21.0-32.0); Chloride 111 mmol/L (98-108); Creatinine, Serum 1.18 mg/dL (0.70-1.20); EST Glomerular Filtration Rate 59 (>60); Estimated Creatinine Clearance 51.72 ml/min (50-250); Glucose 127 mg/dL (70-99); Potassium 3.9 mmol/L (3.3-5.1); Sodium Level 146 mmol/L (133-145)
[2025-01-06 08:21] VITALS: BP 126/81; PULSE 62; RESP 18; TEMP 36.7; O2SAT 97
--- NOTE | 2025-01-06 09:10 | PN.HOSP_ITS ---
Reason for Visit Reason for Visit: Diagnoses Sepsis, unspecified organism (01/01/25) Methicillin susceptible Staphylococcus aureus infection as the cause of diseases classified elsewhere (01/01/25) Other toxic encephalopathy (01/01/25) Cellulitis of left lower limb (01/01/25) Non-pressure chronic ulcer of other part of left foot with necrosis of bone (01/01/25) Osteomyelitis, unspecified (01/01/25) Acute kidney failure, unspecified (01/01/25) Tachycardia, unspecified (01/01/25) Altered mental status, unspecified (01/01/25) Fever, unspecified (01/01/25) Hyperglycemia, unspecified (01/01/25) Bacteremia (01/01/25) Unspecified open wound, left foot, initial encounter (01/01/25) Objective Data Objective Data Vital Signs: Vital Signs Temp Pulse Resp BP Pulse Ox O2 Del Method O2 Flow Rate 98.0 F 62 18 126/81 H 97 Nasal Cannula 2 01/06/25 08:21 01/06/25 08:21 01/06/25 08:21 01/06/25 08:21 01/06/25 08:21 01/06/25 08:21 01/06/25 03:33 Oxygen Flow Rate (L/min) 2 Oxygen Delivery Method Nasal Cannula Weight: 197 lb 12.074 oz Body Mass Index (BMI) 24.7 Intake & Output: Intake and Output for Last 24 Hours 01/04/25 01/05/25 01/06/25 23:59 23:59 23:59 Intake Total 685 / 685 375 / 375 1325 / 1325 Output Total 700 / 950 760 / 960 450 / 450 Balance -15 / -265 -385 / -585 875 / 875 Lab / Micro Data 01/06/25 06:15 01/06/25 06:15 Labs: Laboratory Results - last 24 hr 01/05/25 09:39: POC Glucose 137 H 01/05/25 14:52: POC Glucose 130 H 01/05/25 21:29: Vancomycin Trough 9.8 01/06/25 06:15: WBC 6.2, RBC 3.58 L, Hgb 11.5 L, Hct 35.8 L, MCV 100.0 H, MCH 32.1 H, MCHC 32.1, RDW Std Deviation 48.8 H, RDW Coeff of Gary 13.2, Plt Count 106 L, MPV 11.3, Immature Gran % (Auto) 2.100 H, Neut % (Auto) 78.2 H, Lymph % (Auto) 9.2 L, [place] % (Auto) 8.4, Eos % (Auto) 1.8, Baso % (Auto) 0.3, Absolute Neuts (auto) 4.8, Absolute Lymphs (auto) 0.57 L, Nucleated RBC % 0, Sodium 146 H , Potassium 3.9, Chloride 111 H, Carbon Dioxide 25.7, Anion Gap 9, BUN 33 H, Creatinine 1.18, Estim Creat Clear Calc 51.72, Est GFR (MDRD) Non-Af 59 L, B UN/Creatinine Ratio 27.8 H, Glucose 127 H, Calcium 9.2 01/06/25 06:55: POC Glucose 113 H Micro: Microbiology 01/05/25 17:00 Bone - Metatarsal Wound Culture - Preliminary No growth-Final to follow 01/05/25 17:00 Tissue - 5th Toe Wound Culture - Preliminary 01/05/25 17:00 Tissue - Left Foot Wound Culture - Preliminary No growth-Final to follow 01/05/25 17:00 Wound Abcess - Aerobic & Anaerobic Swabs Wound Culture - Preliminary 01/05/25 17:00 Wound Abcess - Aerobic & Anaerobic Swabs Wound Culture - Preliminary No growth-Final to follow 01/03/25 06:15 Blood Culture (Wb) - Right Hand Blood Culture - Final Staphylococcus aureus 01/03/25 06:15 Blood Culture (Wb) - Venous Blood Culture - Final Staphylococcus aureus 01/03/25 10:00 Wound - Left Foot Gram Stain - Final 01/03/25 10:00 Wound - Left Foot Wound Culture - Final Meth. resistant Staph. aureus 01/03/25 10:00 Wound - Left Foot Anaerobic Culture - Preliminary Checking for anaerobes, further studies to follow. 01/02/25 11:55 Blood Culture (Wb) - Left Wrist Blood Culture - Final Staphylococcus aureus 01/01/25 17:10 Urine Catheter - Catheter Urine Culture - Final Culture exhibits no growth. 01/02/25 03:57 Wound - Left Foot Gram Stain - Final 01/02/25 03:57 Wound - Left Foot Wound Culture - Final Staphylococcus aureus 01/02/25 03:57 Wound - Left Foot Skin and Soft Tissue MRSA/MSSA (PCR - Final Staphylococcus aureus 01/01/25 15:30 Blood Culture (Wb) - Arm Left Blood Culture - Final Staphylococcus aureus 01/01/25 15:25 Blood Culture (Wb) - Right Forearm Bacteria Detection (PCR) - Final Staphylococcus aureus 01/01/25 15:25 Blood Culture (Wb) - Right Forearm Blood Culture - Final Staphylococcus aureus 01/02/25 02:05 Mucosa - Nasopharyngeal Respiratory Panel (PCR) - Final 01/02/25 02:05 Mucosa - Nasopharyngeal Coronavirus COVID-19 PCR - Final Radiography Diagnostic Testing: Radiology Impression Foot X-Ray 01/05/25 14:30 IMPRESSION: As above. Reading Location: [place] [address] Physical Exam Narrative Seen and examined. Discussed with the catering staff member Patient looks more awake and he spoke few words in phrases. Pressures were not comprehensible but kind of affect like saying his neck is hurting and he did not had bowel movement. Patient also eating less. As per RN, he has dementia and has been disoriented not answering full question for last 2 days on his assessment. He is on a pur?ed diet. Physical exam General: Awake, dementia. Orientation cannot be ascertained or disoriented HEENT: Atraumatic, PERRLA, EOMI, Normocephalic. Oral: Oral mucosa dry. No Gingival or Mucosal Lesions/ Ulcerations Neck: Supple, No JVD, Negative Carotid Bruits Chest wall/Lungs: Air entry diminished in bilateral lung bases. No crepitation/rhonchi Cardiovascular: Regular rate and rhythm, Normal S1,S2, No M/G/R Abdomen: Bowel Sounds Present, Soft, Non Tender, Non-Distended : No dysuria. No renal angle tenderness. No suprapubic tenderness. Extremities: No edema, Capillary Refill Less than 3 Seconds Skin: Bilateral feet on the heel pad questions. Left foot bandage. Musculoskeletal: ROM limited at knees and hips. Decreased muscle mass. No Tenderness to Palpation of Joints or Extremities Neurological: detailed neuroexam unobtainable no acute focal neurological deficit. Psych/Mental Status: Flat affect. Dementia Assessment & Plan Assessment/Plan (1) Osteomyelitis of left foot: (2) MSSA bacteremia: (3) Sepsis: (4) Cellulitis of left foot: PLAN: Plan # Staph MSSA bacteremia in the setting of cellulitis of the foot * Patient's blood cultures are growing staph aureus * on IV vancomycin and zosyn * ID on board as well as podiatry * Urinalysis does not show any evidence of UTI. * Wound cultures growing staph aureus podiatry on board. 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 * TTE showed no evidence of vegetation and showed normal left ventricular size and systolic function with EF of 55% and moderate to severe mitral annular calcification and mild aortic stenosis with aortic valve mildly to moderately calcified and it appears tricuspid. * Repeat blood cultures from 01/03/2025 still growing gram-positive cocci in clusters in 2 out of 2 blood samples. * For foot surgery tomorrow. 01/05: Plan for surgery today. Wound culture PCR shows MSSA. 01/06: Patient had incision bone cortex of fifth metatarsal and fifth digit left foot with delayed primary closure of left foot. Postop diagnosis same osteomyelitis left fifth metatarsal foot. ID recommending 6 weeks of IV antibiotic at discharge. Blood culture positive of staph. Repeat blood culture from 01/05 pending #Acute encephalopathy likely due to MSSA bacteremia with history of dementia: Management as above #Hyperglycemia: * This in the setting of impaired glucose tolerance. * Has known A1c of 6.1. * Will monitor closely for now and status sliding scale as needed #Thrombocytopenia: * Platelets are further down to 76 May be due to acute illness. Will monitor. * 01/05: Platelet count 83K. H&H 12/36.8%. #CASEY: * Will monitor creatinine and hydrate with IV fluids * Creatinine today is down to 1.51. * Was 1.95 on admission. Baseline creatinine is around 1.3. 01/05: BUN/creatinine 43/1.3. Continue and maintain intake and output charting and fluid correction #Hypothyroidism: On Synthroid #Debility and weakness with failure to thrive: PT OT on board. Fall precautions. #History of onycholysis: On terbinafine which was held due to worsening kidney function #Dementia: * Unclear if he has behavioral disturbance. He continues to remain lethargic * Started on melatonin. * If patient becomes agitated we will have to consider starting Seroquel. DVT prophylaxis: Heparin. Hold heparin due to dropping platelets. Admitting platelet count was 178 but patient had thrombocytopenia 1 40K on 09/17/2024. And showing improvement on Sunday therefore HIT it is unlikely Charges/Coding Visit Charges Inpatient E&M: 32331 Subs Hosp L2
--- NOTE | 2025-01-06 09:11 | CASEMGMT ---
Discharge Planning A list of?SNF providers including quality and resource use data and consistent with the patient's preferred geographic region, medical needs, and insurance network was created in [facility] Guide.? This list was provided to the SW. Rosalia Medina Discharge Planning Asst.
--- NOTE | 2025-01-06 09:23 | CASEMGMT ---
HEATHER noted patient is going to be on 6 weeks of IV antibiotics. One of which may be Q8. HEATHER doubts [facility] will be able to accommodate this. HEATHER called patient's daughter Sade and explained this. Sade said she thought [facility] could do it. HEATHER told her SW does not think [facility] will be able to do this as it requires an RN. HEATHER told Sade HEATHER can check with [facility] and let her know. Should [facility] not be able to do this patient will need to go to a SNF. HEATHER can provide her with a list of facilities. Await [facility]'s response. HEATHER also to talk with Dr Arias. Misa Jj CENTRAL SUPPLY CLERK DOCUMENT PROCESSOR
--- NOTE | 2025-01-06 09:28 | CASEMGMT ---
HEATHER spoke with Dr Arias and he indicated patient will likely be on IV Vanc once a day for 6 weeks. Once patient's cultures come back negative patient can have a picc line placed. HEATHER notified Rosalia malik/troy planning technician who notified [facility]. Misa Jj STEEL ANALYST FELIX
--- NOTE | 2025-01-06 10:01 | PN.ID_ITS ---
Physical Exam Narrative More awake this AM, no fever, denies pain Const no apparent distress Orientation / Consciousness: confused Resp normal air movement and clear to auscultation bilaterally Cardio regular rate and regular rhythm GI soft to palpation, non-tender and non-distended Skin no rashes or lesions noted ID ID: Route of nutrition/ use of supplements: [] Nutritional Intake: [] IV Site: [] Holguin Catheter: [] Assessment & Plan Assessment/Plan (1) Sepsis: PLAN: sepsis due to L foot osteo complicated by mssa bacteremia. Pt is DNR-CC. OR 12/05/[address] Forman. Will cont vanc/zosyn and check repeat bcx. No veg seen on TTE but difficult study. Would need at least 6 weeks iv abx at discharge. Will follow, d/w human services case manager (2) MSSA bacteremia: (3) Altered mental status: (4) Acute kidney injury:
--- NOTE | 2025-01-06 11:50 | WOUNDNOTE ---
Talked with Dr Forman. wants dressing left in place and Dr Forman plans to come in later this evening to assess the foot. GINNY Lloyd aware.
[2025-01-06 12:00] VITALS: BP 121/80; PULSE 72; RESP 18; TEMP 36.6; O2SAT 93
[2025-01-06 12:29] LABS: Bedside Glucose 114 mg/dL (74-106)
[2025-01-06] MEDS: 0.9% Saline Lock 10 ML Syringe IV (13:35)
--- NOTE | 2025-01-06 14:03 | CASEMGMT ---
Discharge Planning Updates faxed to [facility], including ID note and therapy evals. Rosalia Medina DC Planning Asst.
--- NOTE | 2025-01-06 14:28 | CASEMGMT ---
Discharge Planning Per Carrie Perla @ [facility], pt will need a skilled snf stay before returning to [facility]. SW updated. Rosalia Medina DC Planning Asst.
--- NOTE | 2025-01-06 14:34 | CASEMGMT ---
HEATHER called patient's daughter Sade and left her a voice mail letting her know that [facility] will be unable to take patient back while he is on IV antibiotics. HEATHER explained SW can email her a list of facilities that take patient's insurance. She would need to review the list and choose 3 or 4 she would be okay with. HEATHER will then take care of contacting the facilities to see if they are able to take patient. HEATHER explained this will only be needed while patient is on IV antibiotics. HEATHER then emailed the list of SND's to Sade. Plan: Will need SNF. List sent to daughter. Await her choices and then referrals will be made. Misa Jj CHEMICALS FERMENTATION OPERATOR FELIX
[2025-01-06] MEDS: Insulin Lispro 100 UNIT/ML INSULN.PEN SC (16:59)
--- NOTE | 2025-01-06 17:16 | PN.SURG_ITS ---
Subjective Subjective Mr. Razo is a 89-year-old male seen at bedside today for follow-up evaluation status post of incision bone cortex of the fifth metatarsal, fifth digit and delayed primary closure of the left foot. DOS: 01/05/2025. Patient was up in a chair and back to his baseline, that it was seen at the wound care center prior to hospital admission. Was able to deny constitutional symptoms. He does deny any pain to the left foot. No other pedal complaints at this time. Objective Data Objective Data Vital Signs: Vital Signs Temp Pulse Resp BP Pulse Ox O2 Del Method O2 Flow Rate 97.8 F 72 18 121/80 H 93 Nasal Cannula 2 01/06/25 12:00 01/06/25 12:00 01/06/25 12:00 01/06/25 12:00 01/06/25 12:00 01/06/25 14:00 01/06/25 14:00 Oxygen Flow Rate (L/min) 2 Oxygen Delivery Method Nasal Cannula Weight: 89.7 kg Body Mass Index (BMI) 24.7 Intake & Output: Intake and Output for Last 24 Hours 01/04/25 01/05/25 01/06/25 23:59 23:59 23:59 Intake Total 685 / 685 375 / 375 2095 / 2095 Output Total 700 / 950 760 / 960 1050 / 1050 Balance -15 / -265 -385 / -585 1045 / 1045 Lab / Micro Data 01/06/25 06:15 01/06/25 06:15 Labs: Laboratory Results - last 24 hr 01/05/25 21:29: Vancomycin Trough 9.8 01/06/25 06:15: WBC 6.2, RBC 3.58 L, Hgb 11.5 L, Hct 35.8 L, MCV 100.0 H, MCH 32.1 H, MCHC 32.1, RDW Std Deviation 48.8 H, RDW Coeff of Gary 13.2, Plt Count 106 L, MPV 11.3, Immature Gran % (Auto) 2.100 H, Neut % (Auto) 78.2 H, Lymph % (Auto) 9.2 L, Thurston % (Auto) 8.4, Eos % (Auto) 1.8, Baso % (Auto) 0.3, Absolute Neuts (auto) 4.8, Absolute Lymphs (auto) 0.57 L, Nucleated RBC % 0, Sodium 146 H , Potassium 3.9, Chloride 111 H, Carbon Dioxide 25.7, Anion Gap 9, BUN 33 H, Creatinine 1.18, Estim Creat Clear Calc 51.72, Est GFR (MDRD) Non-Af 59 L, B UN/Creatinine Ratio 27.8 H, Glucose 127 H, Calcium 9.2 01/06/25 06:55: POC Glucose 113 H 01/06/25 12:01: POC Glucose 114 H Micro: Microbiology 01/05/25 17:00 Bone - Metatarsal Gram Stain - Final 01/05/25 17:00 Bone - Metatarsal Wound Culture - Preliminary No growth-Final to follow 01/05/25 17:00 Tissue - 5th Toe Gram Stain - Final 01/05/25 17:00 Tissue - Left Foot Gram Stain - Final 01/05/25 17:00 Tissue - Left Foot Wound Culture - Preliminary No growth-Final to follow 01/05/25 17:00 Wound Abcess - Aerobic & Anaerobic Swabs Gram Stain - Final 01/05/25 17:00 Wound Abcess - Aerobic & Anaerobic Swabs Wound Culture - Preliminary No growth-Final to follow 01/05/25 17:00 Wound Abcess - Aerobic & Anaerobic Swabs Gram Stain - Final 01/03/25 06:15 Blood Culture (Wb) - Right Hand Blood Culture - Final Staphylococcus aureus 01/03/25 06:15 Blood Culture (Wb) - Venous Blood Culture - Final Staphylococcus aureus 01/03/25 10:00 Wound - Left Foot Gram Stain - Final 01/03/25 10:00 Wound - Left Foot Wound Culture - Final Meth. resistant Staph. aureus 01/03/25 10:00 Wound - Left Foot Anaerobic Culture - Preliminary Checking for anaerobes, further studies to follow. 01/02/25 11:55 Blood Culture (Wb) - Left Wrist Blood Culture - Final Staphylococcus aureus 01/01/25 17:10 Urine Catheter - Catheter Urine Culture - Final Culture exhibits no growth. 01/02/25 03:57 Wound - Left Foot Gram Stain - Final 01/02/25 03:57 Wound - Left Foot Wound Culture - Final Staphylococcus aureus 01/02/25 03:57 Wound - Left Foot Skin and Soft Tissue MRSA/MSSA (PCR - Final Staphylococcus aureus 01/01/25 15:30 Blood Culture (Wb) - Arm Left Blood Culture - Final Staphylococcus aureus 01/01/25 15:25 Blood Culture (Wb) - Right Forearm Bacteria Detection (PCR) - Final Staphylococcus aureus 01/01/25 15:25 Blood Culture (Wb) - Right Forearm Blood Culture - Final Staphylococcus aureus 01/02/25 02:05 Mucosa - Nasopharyngeal Respiratory Panel (PCR) - Final 01/02/25 02:05 Mucosa - Nasopharyngeal Coronavirus COVID-19 PCR - Final Radiography Diagnostic Testing: Radiology Impression Foot X-Ray 01/05/25 14:30 IMPRESSION: As above. Reading Location: [place] [id number] Physical Exam Narrative Vascular: DP and PT pulse are palp of the left lower extremity. No erythema is appreciated. Skin temperature is warm to warm from proximal ankles to distal digits left lower extremity. Neurological: Light touch intact. Dermatological: Incision is well coapted with suture. No erythema, drainage or sign of infection. Erythema has improved. No malodor. Negative probe to bone. Musculoskeletal: Mild pain on palpation to the incision on the left foot. No pain with calf pressure. Assessment & Plan Assessment/Plan (1) Osteomyelitis of left foot: PLAN: Patient was examined and evaluated. All findings were discussed with the patient. All questions were answered to the patient satisfaction. Patient was seen at bedside today for left lower extremity dressing change. Patient is status post incision bone cortex of the fifth metatarsal, fifth digit with delayed primary closure and full-thickness wound to the left foot. DOS: 01/06/2025. Patient is recovering well. The incision was dressed with Betadine soaked Adaptic dry sterile dressing and a single-layer Salguero compression bandage was donned to left lower extremity. WBC: 6.2 Repeat blood cultures, 01/05: Pending Surgical cultures: Pending Pathology: Pending Left foot wound culture (01/03/2025): MRSA Left foot wound culture (01/02/2025): Staph aureus Infectious disease: On board, IV antibiotics vancomycin/Zosyn. Recommending 6 weeks PICC line antibiotics at discharge. Medicine: On board, medical management PT/OT: On board From a podiatry standpoint patient is cleared to discharge back to facility once cleared by medicine and infectious disease team. Wound care instructions will be placed in discharge paperwork. Patient is to follow-up with Dr. Forman at the wound care center next Sunday. Please call for appointment date and time. Podiatry to continue to follow but from a distance. Please reach out to Dr. Forman for any question or concerns. Dressing was changed today and will need to remain clean dry and intact prior to discharge. Please have wound care nurse change dressing before patient is discharged. Thank you for letting me be involved in the patient care. 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
[2025-01-06 17:26] LABS: Bedside Glucose 154 mg/dL (74-106)
[2025-01-06 18:00] VITALS: BP 149/68; PULSE 74; RESP 18; TEMP 36.4; O2SAT 93
[2025-01-06] MEDS: proMETHazine 25 MG/ML Syringe 12.5 MG IM (19:47)
[2025-01-06] MEDS: Vancomycin HCl 1,250 MG in 0.9% Normal Saline (250mL Bag) 250 ML 167 MG IV (22:45)
[2025-01-06 23:06] VITALS: O2SAT 88
[2025-01-06 23:11] VITALS: BP 134/66; PULSE 71; RESP 16; TEMP 36.6; O2SAT 94
[2025-01-07 05:44] VITALS: BP 164/73; PULSE 60; RESP 18; TEMP 36.5; O2SAT 94
[2025-01-07] MEDS: Piperacil/Tazobactam 3.375 GM in 0.9% Normal Saline (50mL MB+) 50 ML IV ×3 (05:49→23:13)
[2025-01-07 06:31] LABS: Bedside Glucose 114 mg/dL (74-106)
[2025-01-07 06:34] LABS: Absolute Lymphocyte Count 0.69 X10^3/uL (0.83-4.51); Basophil# 0.03 X10^3/uL; Basophil% 0.4 % (0-1); Eosinophil# 0.18 X10^3/uL; Eosinophils% 2.7 % (0-5); Hematocrit 34.5 % (40-54); Hemoglobin 11.1 g/dL (13.0-16.5); Lymphocyte # 0.69 X10^3/ul (0.83-4.51); Lymphocyte % 10.3 % (19-41); Mean Corp Hgb Conc 32.2 g/dL (32-36); Mean Corpuscular Hgb 32.3 pg (27.0-32.0); Mean Corpuscular Volume 100.3 fL (80-94); Monocyte# 0.54 X10^3/uL; NRBC Flagged by Analyzer 0 % (0-5); Neutrophil # 4.98 X10^3/uL (2.7-7.7); Neutrophil % 74.1 % (47-70); Platelet Count 127 K/mm3 (150-450); RBC Distribution Width CV 13.2 % (11.6-14.6); RBC Distribution Width SD 48.7 fl (35.1-43.9); Red Blood Count 3.44 M/mm3 (4.6-6.2); White Blood Count 6.7 K/mm3 (4.4-11.0)
[2025-01-07 06:50] LABS: Anion Gap 8 (5-15); BUN 29 mg/dL (4-19); BUN/Creat Ratio 25.2 RATIO (10-20); Carbon Dioxide 26.1 mmol/L (21.0-32.0); Chloride 111 mmol/L (98-108); Creatinine, Serum 1.13 mg/dL (0.70-1.20); EST Glomerular Filtration Rate 63 (>60); Estimated Creatinine Clearance 54.01 ml/min (50-250); Glucose 119 mg/dL (70-99); Potassium 3.7 mmol/L (3.3-5.1); Sodium Level 145 mmol/L (133-145)
[2025-01-07 06:54] VITALS: O2SAT 93
--- NOTE | 2025-01-07 09:19 | PN.HOSP_ITS ---
Reason for Visit Reason for Visit: Diagnoses Sepsis, unspecified organism (01/01/25) Methicillin susceptible Staphylococcus aureus infection as the cause of diseases classified elsewhere (01/01/25) Other toxic encephalopathy (01/01/25) Cellulitis of left lower limb (01/01/25) Non-pressure chronic ulcer of other part of left foot with necrosis of bone (01/01/25) Osteomyelitis, unspecified (01/01/25) Acute kidney failure, unspecified (01/01/25) Tachycardia, unspecified (01/01/25) Altered mental status, unspecified (01/01/25) Fever, unspecified (01/01/25) Hyperglycemia, unspecified (01/01/25) Bacteremia (01/01/25) Unspecified open wound, left foot, initial encounter (01/01/25) Objective Data Objective Data Vital Signs: Vital Signs Temp Pulse Resp BP Pulse Ox O2 Del Method O2 Flow Rate 97.7 F L 60 18 164/73 H 94 Nasal Cannula 2 01/07/25 05:44 01/07/25 05:44 01/07/25 05:44 01/07/25 05:44 01/07/25 05:44 01/07/25 08:03 01/07/25 08:03 Oxygen Flow Rate (L/min) 2 Oxygen Delivery Method Nasal Cannula Weight: 197 lb 12.074 oz Body Mass Index (BMI) 24.7 Intake & Output: Intake and Output for Last 24 Hours 01/05/25 01/06/25 01/07/25 23:59 23:59 23:59 Intake Total 375 / 375 2145 / 2145 325 / 325 Output Total 760 / 960 1550 / 1550 Balance -385 / -585 595 / 595 325 / 325 Lab / Micro Data 01/07/25 05:54 01/07/25 05:54 Labs: Laboratory Results - last 24 hr 01/06/25 12:01: POC Glucose 114 H 01/06/25 16:53: POC Glucose 154 H 01/07/25 05:54: WBC 6.7, RBC 3.44 L, Hgb 11.1 L, Hct 34.5 L, MCV 100.3 H, MCH 32.3 H, MCHC 32.2, RDW Std Deviation 48.7 H, RDW Coeff of Gary 13.2, Plt Count 127 L, MPV 11.0, Immature Gran % (Auto) 4.500 H, Neut % (Auto) 74.1 H, Lymph % (Auto) 10.3 L, [place] % (Auto) 8.0, Eos % (Auto) 2.7, Baso % (Auto) 0.4, Absolute Neuts (auto) 5.0, Absolute Lymphs (auto) 0.69 L, Nucleated RBC % 0, Sodium 145, Potassium 3.7, Chloride 111 H, Carbon Dioxide 26.1, Anion Gap 8, BUN 29 H, Creatinine 1.13, Estim Creat Clear Calc 54.01, Est GFR (MDRD) Non-Af 63, B UN/Creatinine Ratio 25.2 H, Glucose 119 H, Calcium 9.0 01/07/25 06:07: POC Glucose 114 H Micro: Microbiology 01/05/25 17:00 Bone - Metatarsal Gram Stain - Final 01/05/25 17:00 Bone - Metatarsal Wound Culture - Preliminary No growth-Final to follow 01/05/25 17:00 Tissue - 5th Toe Gram Stain - Final 01/05/25 17:00 Tissue - Left Foot Gram Stain - Final 01/05/25 17:00 Tissue - Left Foot Wound Culture - Preliminary No growth-Final to follow 01/05/25 17:00 Wound Abcess - Aerobic & Anaerobic Swabs Gram Stain - Final 01/05/25 17:00 Wound Abcess - Aerobic & Anaerobic Swabs Wound Culture - Preliminary No growth-Final to follow 01/05/25 17:00 Wound Abcess - Aerobic & Anaerobic Swabs Gram Stain - Final 01/03/25 06:15 Blood Culture (Wb) - Right Hand Blood Culture - Final Staphylococcus aureus 01/03/25 06:15 Blood Culture (Wb) - Venous Blood Culture - Final Staphylococcus aureus 01/03/25 10:00 Wound - Left Foot Gram Stain - Final 01/03/25 10:00 Wound - Left Foot Wound Culture - Final Meth. resistant Staph. aureus 01/03/25 10:00 Wound - Left Foot Anaerobic Culture - Preliminary Checking for anaerobes, further studies to follow. 01/02/25 11:55 Blood Culture (Wb) - Left Wrist Blood Culture - Final Staphylococcus aureus 01/01/25 17:10 Urine Catheter - Catheter Urine Culture - Final Culture exhibits no growth. 01/02/25 03:57 Wound - Left Foot Gram Stain - Final 01/02/25 03:57 Wound - Left Foot Wound Culture - Final Staphylococcus aureus 01/02/25 03:57 Wound - Left Foot Skin and Soft Tissue MRSA/MSSA (PCR - Final Staphylococcus aureus 01/01/25 15:30 Blood Culture (Wb) - Arm Left Blood Culture - Final Staphylococcus aureus 01/01/25 15:25 Blood Culture (Wb) - Right Forearm Bacteria Detection (PCR) - Final Staphylococcus aureus 01/01/25 15:25 Blood Culture (Wb) - Right Forearm Blood Culture - Final Staphylococcus aureus 01/02/25 02:05 Mucosa - Nasopharyngeal Respiratory Panel (PCR) - Final 01/02/25 02:05 Mucosa - Nasopharyngeal Coronavirus COVID-19 PCR - Final Physical Exam Narrative Seen and examined. Discussed with the staff air tactical officer Last evening patient was agitated and aggressive about 7 PM. IV Haldol and IM Phenergan was ordered. In the morning today patient is more drowsy but awake. Left foot dressing was done. He is on a pur?ed diet on supervised feed Physical exam General: Lethargic but awake, dementia. Orientation cannot be ascertained or disoriented HEENT: Atraumatic, PERRLA, EOMI, Normocephalic. Oral: Oral mucosa dry. No Gingival or Mucosal Lesions/ Ulcerations Neck: Supple, No JVD, Negative Carotid Bruits Chest wall/Lungs: Air entry diminished in bilateral lung bases. No crepitation/rhonchi Cardiovascular: Regular rate and rhythm, Normal S1,S2, No M/G/R Abdomen: Bowel Sounds Present, Soft, Non Tender, Non-Distended : No dysuria. No renal angle tenderness. No suprapubic tenderness. Extremities: No edema, Capillary Refill Less than 3 Seconds Skin: Bilateral feet on the heel pad questions. Left foot bandage. Primary closure done. Musculoskeletal: ROM limited at knees and hips. Decreased muscle mass. No Tenderness to Palpation of Joints or Extremities Neurological: detailed neuroexam unobtainable no acute focal neurological deficit. Psych/Mental Status: Flat affect. Dementia Assessment & Plan Assessment/Plan (1) Osteomyelitis of left foot: (2) MSSA bacteremia: (3) Sepsis: (4) Cellulitis of left foot: PLAN: Plan # Staph MSSA bacteremia in the setting of cellulitis of the foot * Patient's blood cultures are growing staph aureus * on IV vancomycin and zosyn * ID on board as well as podiatry * Urinalysis does not show any evidence of UTI. * Wound cultures growing staph aureus podiatry on board. 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 * TTE showed no evidence of vegetation and showed normal left ventricular size and systolic function with EF of 55% and moderate to severe mitral annular calcification and mild aortic stenosis with aortic valve mildly to moderately calcified and it appears tricuspid. * Repeat blood cultures from 01/03/2025 still growing gram-positive cocci in clusters in 2 out of 2 blood samples. * For foot surgery tomorrow. 01/05: Plan for surgery today. Wound culture PCR shows MSSA. 01/06: Patient had incision bone cortex of fifth metatarsal and fifth digit left foot with delayed primary closure of left foot. Postop diagnosis same osteomyelitis left fifth metatarsal foot. ID recommending 6 weeks of IV antibiotic at discharge. Blood culture positive of staph. Repeat blood culture from 01/05 pending. 1 wound culture with MRSA. Continue Vanco and Zosyn. Vancomycin prescription written stop date 02/16/2025. 6 weeks of IV antibiotics. PICC line tomorrow if 01/05 blood culture remain negative 01/07: Wound looks good. Continue dressing as per surgeon, RN. Podiatry follow- up. #Acute encephalopathy likely due to MSSA bacteremia with history of dementia: Management as above. Blood culture from 01/06 prelim negative for 48 hours. Repeat blood culture from 01/06 is pending #Hyperglycemia: * This in the setting of impaired glucose tolerance. * Has known A1c of 6.1. * Will monitor closely for now and status sliding scale as needed #Thrombocytopenia: * Platelets are further down to 76 May be due to acute illness. Will monitor. * 01/05: Platelet count 83K. H&H 12/36.8%. #CASEY: * Will monitor creatinine and hydrate with IV fluids * Creatinine today is down to 1.51. * Was 1.95 on admission. Baseline creatinine is around 1.3. 01/05: BUN/creatinine 43/1.3. Continue and maintain intake and output charting and fluid correction #Hypothyroidism: On Synthroid #Debility and weakness with failure to thrive: PT OT on board. Fall precautions. #History of onycholysis: On terbinafine which was held due to worsening kidney function #Dementia: * Unclear if he has behavioral disturbance. He continues to remain lethargic * Started on melatonin. * If patient becomes agitated we will have to consider starting Seroquel. DVT prophylaxis: Heparin. Hold heparin due to dropping platelets. Admitting platelet count was 178 but patient had thrombocytopenia 1 40K on 09/17/2024. And showing improvement on Sunday therefore HIT it is unlikely Charges/Coding Visit Charges Inpatient E&M: 46402 Subs Hosp L2
--- NOTE | 2025-01-07 09:23 | CASEMGMT ---
[facility] received a call from patient's daughter Sade. [facility] SNF choices are [facility], [facility], and [facility]. SW let Sade know that [facility] is now full so a referral will be made to [facility]. Plan: SNF pending accepting facility and patient being medically ready. Misa Jj PAPER MILL SUPERINTENDENT FELIX
--- NOTE | 2025-01-07 09:33 | CASEMGMT ---
Addendum entered by Rosalia Medina 01/07/25 10:21: [facility] has accepted. SW updated. Rosalia Medina DC Planning Asst. Original Note: Discharge Planning Referral sent to [facility] at [facility]. Rosalia Medina DC Planning Asst.
--- NOTE | 2025-01-07 10:51 | CASEMGMT ---
HEATHER called patient's daughter Sade and let her know that [facility] is able to take patient when he is medically ready. Misa Jj ARCHIVIST ECONOMIC HISTORY FELIX
[2025-01-07 11:22] VITALS: BP 123/72; PULSE 68; RESP 16; TEMP 36.6; O2SAT 95
[2025-01-07 11:42] LABS: Bedside Glucose 113 mg/dL (74-106)
--- NOTE | 2025-01-07 12:03 | WOUNDNOTE ---
wound photo: left foot
--- NOTE | 2025-01-07 12:03 | CASEMGMT ---
Discharge Planning IV order sent to [facility]. Rosalia Medina DC Planning Asst.
--- NOTE | 2025-01-07 14:22 | PCM.PN.ID ---
Physical Exam Narrative Feeling ok, denies pain, no fever Const no apparent distress Resp normal air movement and clear to auscultation bilaterally Cardio regular rate and regular rhythm GI soft to palpation, non-tender and non-distended Skin Skin Narrative: foot wrapped ID ID: Route of nutrition/ use of supplements: [] Nutritional Intake: [] IV Site: [] Holguin Catheter: [] Assessment & Plan Assessment/Plan (1) Sepsis: PLAN: sepsis due to L foot osteo complicated by mssa bacteremia. One wound cx with MRSA. Pt is DNR-CC. OR 12/05/[address] Forman. Will cont vanc/zosyn. Bcx neg since 01/05. No veg seen on TTE but difficult study. Would need at least 6 weeks iv abx at discharge. Will write for iv vanc, stop date 02/16/25. Ok for picc tomorrow if bcx from 01/05/25 remain neg. Will follow. ID followup in 2-3 weeks (2) MSSA bacteremia: (3) Altered mental status: (4) Acute kidney injury:
[2025-01-07 15:43] VITALS: BP 123/80; PULSE 83; RESP 18; TEMP 36.8; O2SAT 97
[2025-01-07] MEDS: Acetaminophen 325 MG Tablet 650 MG PO (16:28)
[2025-01-07] MEDS: Insulin Lispro 100 UNIT/ML INSULN.PEN SC (16:31)
[2025-01-07 16:55] LABS: Bedside Glucose 156 mg/dL (74-106)
[2025-01-07 21:56] LABS: Vancomycin, Trough Level 11.9 ug/mL (5.0-15.0)
--- NOTE | 2025-01-07 22:13 | PCM.RX.CS ---
Consult Antibiotic Management Pharmacy has been consulted to manage selected antibiotic: Vancomycin Type of Intervention Type of Consult: Follow-up Labs Labs: Sodium 145 mmol/L (133-145) 01/07/25 05:54 Potassium 3.7 mmol/L (3.3-5.1) 01/07/25 05:54 Chloride 111 mmol/L (98-108) H 01/07/25 05:54 Carbon Dioxide 26.1 mmol/L (21.0-32.0) 01/07/25 05:54 Anion Gap 8 (5-15) 01/07/25 05:54 BUN 29 mg/dL (4-19) H 01/07/25 05:54 Creatinine 1.13 mg/dL (0.70-1.20) 01/07/25 05:54 Est GFR (MDRD) Non-Af 63 (>60) 01/07/25 05:54 BUN/Creatinine Ratio 25.2 RATIO (10-20) H 01/07/25 05:54 Glucose 119 mg/dL (70-99) H 01/07/25 05:54 Vancomycin Trough 11.9 ug/mL (5.0-15.0) 01/07/25 21:21 Microbiology Microbiology: Microbiology 01/05/25 07:35 Blood Culture (Wb) - Anticubital Right Blood Culture - Preliminary No growth in 48 hours. 01/03/25 10:00 Wound - Left Foot Gram Stain - Final 01/03/25 10:00 Wound - Left Foot Wound Culture - Final Meth. resistant Staph. aureus 01/03/25 10:00 Wound - Left Foot Anaerobic Culture - Final No anaerobic bacteria isolated. 01/05/25 17:00 Bone - Metatarsal Gram Stain - Final 01/05/25 17:00 Bone - Metatarsal Wound Culture - Preliminary 01/05/25 17:00 Tissue - 5th Toe Gram Stain - Final 01/05/25 17:00 Tissue - 5th Toe Wound Culture - Preliminary Staphylococcus aureus 01/05/25 17:00 Tissue - Left Foot Gram Stain - Final 01/05/25 17:00 Tissue - Left Foot Wound Culture - Preliminary 01/05/25 17:00 Wound Abcess - Aerobic & Anaerobic Swabs Gram Stain - Final 01/05/25 17:00 Wound Abcess - Aerobic & Anaerobic Swabs Wound Culture - Preliminary Gram positive organism 01/05/25 17:00 Wound Abcess - Aerobic & Anaerobic Swabs Gram Stain - Final 01/05/25 17:00 Wound Abcess - Aerobic & Anaerobic Swabs Wound Culture - Preliminary Staphylococcus aureus 01/03/25 06:15 Blood Culture (Wb) - Right Hand Blood Culture - Final Staphylococcus aureus 01/03/25 06:15 Blood Culture (Wb) - Venous Blood Culture - Final Staphylococcus aureus 01/02/25 11:55 Blood Culture (Wb) - Left Wrist Blood Culture - Final Staphylococcus aureus 01/01/25 17:10 Urine Catheter - Catheter Urine Culture - Final Culture exhibits no growth. 01/02/25 03:57 Wound - Left Foot Gram Stain - Final 01/02/25 03:57 Wound - Left Foot Wound Culture - Final Staphylococcus aureus 01/02/25 03:57 Wound - Left Foot Skin and Soft Tissue MRSA/MSSA (PCR - Final Staphylococcus aureus 01/01/25 15:30 Blood Culture (Wb) - Arm Left Blood Culture - Final Staphylococcus aureus 01/01/25 15:25 Blood Culture (Wb) - Right Forearm Bacteria Detection (PCR) - Final Staphylococcus aureus 01/01/25 15:25 Blood Culture (Wb) - Right Forearm Blood Culture - Final Staphylococcus aureus 01/02/25 02:05 Mucosa - Nasopharyngeal Respiratory Panel (PCR) - Final 01/02/25 02:05 Mucosa - Nasopharyngeal Coronavirus COVID-19 PCR - Final Dosing Weight Weight used for dosin.7 kg Estimated Creatinine Clearance Estimated Creatinine Clearance: 54 Goal Trough Goal Trough: 10-15 mcg/mL Pharmacy Plan for Drug Dosing Pharmacy Plan for Drug Dosing: Vancomycin trough level of 11.9, drawn 22.5hrs post-dose, was within the target range of 10-15. Will continue dosing at 1250mg q24h, and will draw another trough level in four days. Pharmacy Service will continue to monitor and adjust dosing as required. Follow-Up Labs Follow-Up Labs: Trough: Vancomycin Date/Time Labs Ordered Labs to be done on [date and time ordered]: 01/11/25 @5280
[2025-01-07 23:00] VITALS: BP 136/72; PULSE 62; RESP 16; TEMP 36.6; O2SAT 93
[2025-01-07] MEDS: MELATONIN 10 MG TABLET PO (23:13)
[2025-01-07] MEDS: Senna/Docusate Sodium 1 Tablet 2 TABLET PO (23:13)
[2025-01-07] MEDS: Vancomycin HCl 1,250 MG in 0.9% Normal Saline (250mL Bag) 250 ML 167 MG IV (23:13)
[2025-01-08 03:40] VITALS: BP 139/68; PULSE 63; RESP 16; TEMP 36.7; O2SAT 95
[2025-01-08] MEDS: Levothyroxine 150 MCG Tablet PO (05:16)
[2025-01-08] MEDS: Piperacil/Tazobactam 3.375 GM in 0.9% Normal Saline (50mL MB+) 50 ML IV (05:16)
[2025-01-08 06:13] LABS: Hematocrit 34.8 % (40-54); Hemoglobin 11.5 g/dL (13.0-16.5); Mean Corpuscular Hgb 32.4 pg (27.0-32.0); Mean Platelet Vol. 10.5 fl (6.2-12.0); POSITIVE COUNT YES; POSITIVE MORPHOLOGY YES; Platelet Count 159 K/mm3 (150-450); RBC Distribution Width CV 13.1 % (11.6-14.6); RBC Distribution Width SD 47.1 fl (35.1-43.9); Red Blood Count 3.55 M/mm3 (4.6-6.2)
[2025-01-08 06:19] LABS: Differential Indicated MANUAL DIFF
[2025-01-08 06:32] LABS: Anion Gap 9 (5-15); BUN 26 mg/dL (4-19); BUN/Creat Ratio 24.7 RATIO (10-20); Calcium,Total 9.1 mg/dL (7.6-11.0); Carbon Dioxide 26.8 mmol/L (21.0-32.0); Chloride 106 mmol/L (98-108); Creatinine, Serum 1.06 mg/dL (0.70-1.20); EST Glomerular Filtration Rate 68 (>60); Estimated Creatinine Clearance 57.57 ml/min (50-250); Glucose 125 mg/dL (70-99); Potassium 3.6 mmol/L (3.3-5.1); Sodium Level 142 mmol/L (133-145)
[2025-01-08] MEDS: Acetaminophen 325 MG Tablet 650 MG PO ×2 (06:33→15:27)
[2025-01-08] MEDS: Insulin Lispro 100 UNIT/ML INSULN.PEN SC (06:34)
[2025-01-08 07:12] LABS: Bedside Glucose 151 mg/dL (74-106)
[2025-01-08 07:21] LABS: Basophil 1 % (0-1); Eosinophil 2 % (0-5); Lymphocyte 14 % (19-41); Monocyte 2 % (0-10); Myelocyte 2 % (0-0); Neutrophil-Band 2 % (0-5); Neutrophil-Segmented 77 % (47-70); Platelet Estimate ADEQUATE (ADEQ); Total Cells Counted 100 (MANUAL DIFF)
[2025-01-08 07:22] LABS: Absolute Lymphocyte Count 1.12 X10^3/uL (0.83-4.51); Absolute Neutrophil Count 6.3 X10^3/uL (2.0-7.7); Red Cell Morphology NORM C+C NORMAL (NORM C&C)
--- NOTE | 2025-01-08 10:23 | PCM.PN.ID ---
Physical Exam Narrative Sleeping this AM, no fever Const no apparent distress Resp normal air movement and clear to auscultation bilaterally Cardio regular rate and regular rhythm GI soft to palpation, non-tender and non-distended Skin Skin Narrative: foot wrapped ID ID: Route of nutrition/ use of supplements: [] Nutritional Intake: [] IV Site: [] Holguin Catheter: [] Assessment & Plan Assessment/Plan (1) Sepsis: PLAN: sepsis due to L foot osteo complicated by mssa bacteremia. One wound cx with MRSA and one also with MRSE. Pt is DNR-CC. OR 12/05/[address] Forman. Will cont vanc. Bcx neg since 01/05. No veg seen on TTE but difficult study. Would need at least 6 weeks iv abx at discharge. Will write for iv vanc, stop date 02/16/25. Ordered picc for today. Will follow. ID followup in 2-3 weeks (2) MSSA bacteremia: (3) Altered mental status: (4) Acute kidney injury:
--- NOTE | 2025-01-08 11:03 | TREXTCAR_ITS ---
Diet Diet Order/Speech Therapy: INPATIENT Hospital Diet / Speech Therapy Order(s) 01/05/25 19:07 Diet: Carbohydrate Controlled Food consistency:: Mechanical (Minced/Moist) Liquid Consistency:: Regular/Thin Type of Dietary Supplement:: Daquan Diet Comments: Daquan BID w/ B&D, DIRECT SUP ALL FOOD/DRINK, No straws Routine Orders/Code Status Suppository Type: Dulcolax 10mg Suppository Frequency: Daily PRN DC O2, CPAP, BIPAP needs Home O2 Discharge instructions: No Wound(s) left elbow: Wound Type: Abrasion right elbow: Wound Type: Abrasion left foot pad: Wound Type: Neuropathic/Diabetic Foot Ulcer left plantar/lateral foot: Wound Type: Neuropathic/Diabetic Foot Ulcer Dressing Change: betadine Adaptic right lateral foot: Wound Type: Neuropathic/Diabetic Foot Ulcer Dressing Change: betadine Adaptic Therapies Extremity Affected:: Bilateral Lower Physical Therapy: Eval and Treat Occupational Therapy: Eval and Treat Speech Therapy: Eval and Treat Problem/Diagnosis (1) Sepsis: Status: Acute Code(s): A41.9 - Sepsis, unspecified organism (2) MSSA bacteremia: Status: Acute Code(s): R78.81 - Bacteremia; B95.61 - Methicillin susceptible Staphylococcus aureus infection as the cause of diseases classified elsewhere (3) Altered mental status: Status: Acute Code(s): R41.82 - Altered mental status, unspecified (4) Acute kidney injury: Status: Acute Code(s): N17.9 - Acute kidney failure, unspecified Plan # Staph MSSA bacteremia in the setting of cellulitis of the foot * Patient's blood cultures are growing staph aureus * on IV vancomycin and zosyn * ID on board as well as podiatry * Urinalysis does not show any evidence of UTI. * Wound cultures growing staph aureus podiatry on board. 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 * TTE showed no evidence of vegetation and showed normal left ventricular size and systolic function with EF of 55% and moderate to severe mitral annular calcification and mild aortic stenosis with aortic valve mildly to moderately calcified and it appears tricuspid. * Repeat blood cultures from 01/03/2025 still growing gram-positive cocci in clusters in 2 out of 2 blood samples. * For foot surgery tomorrow. 01/05: Plan for surgery today. Wound culture PCR shows MSSA. 01/06: Patient had incision bone cortex of fifth metatarsal and fifth digit left foot with delayed primary closure of left foot. Postop diagnosis same osteomyelitis left fifth metatarsal foot. ID recommending 6 weeks of IV antibiotic at discharge. Blood culture positive of staph. Repeat blood culture from 01/05 pending. 1 wound culture with MRSA. Continue Vanco and Zosyn. Vancomycin prescription written stop date 02/16/2025. 6 weeks of IV antibiotics. PICC line tomorrow if 01/05 blood culture remain negative 01/07: Wound looks good. Continue dressing as per surgeon, RN. Podiatry follow- up. #Acute encephalopathy likely due to MSSA bacteremia with history of dementia: Management as above. Blood culture from 01/06 prelim negative for 48 hours. Repeat blood culture from 01/06 is pending #Hyperglycemia: * This in the setting of impaired glucose tolerance. * Has known A1c of 6.1. * Will monitor closely for now and status sliding scale as needed #Thrombocytopenia: * Platelets are further down to 76 May be due to acute illness. Will monitor. * 01/05: Platelet count 83K. H&H 12/36.8%. #CASEY: * Will monitor creatinine and hydrate with IV fluids * Creatinine today is down to 1.51. * Was 1.95 on admission. Baseline creatinine is around 1.3. 01/05: BUN/creatinine 43/1.3. Continue and maintain intake and output charting and fluid correction #Hypothyroidism: On Synthroid #Debility and weakness with failure to thrive: PT OT on board. Fall precautions. #History of onycholysis: On terbinafine which was held due to worsening kidney function #Dementia: * Unclear if he has behavioral disturbance. He continues to remain lethargic * Started on melatonin. * If patient becomes agitated we will have to consider starting Seroquel. DVT prophylaxis: Heparin. Hold heparin due to dropping platelets. Admitting platelet count was 178 but patient had thrombocytopenia 1 40K on 09/17/2024. And showing improvement on Sunday therefore HIT it is unlikely Allergies/Procedures Done in Hospital Allergies shellfish derived Allergy (Verified 01/01/25 15:16) unknown Type of Care/Length of Stay Estimated LOS: Convalescent Care Less Than 30 days Type of Care Needed: Skilled Rehab Potential: Good Prognosis: Good Additional Orders/Day of Discharge Day of Discharge: 01/08/25 Dietary and Speech Recommendations Dietitian Recommendations/Changes: Continue regular diet per [employer] recommendations. Continue daquan BID with breakfast and dinner to promote wound healing. Will monitor weight trends. Discharge Plan Admission Admit Date/Time: 01/01/25 23:52 Primary Reason for Your Visit: Left foot osteomyelitis. Attending Provider: Dusty Abad Primary Care Provider: Michael Meeks Consulting Providers: Mei Mckenzie; Sofia Lopez; Juanjo Arias; Jaden Forman Instructions Additional Instructions / Restrictions: Wound care/dressing changes, left lower extremity: 1. Remove all Stefan bandages and outer dressing. 2. Lightly blot left lower extremity to remove all dry skin and remaining blood with gauze and sterile saline 3. Apply Betadine paint to the incision, cover with Betadine soaked Adaptic 4. Cover with 4 x 4s, Curlex wrap, cast padding and 4 inch Stefan bandages from sulcus of toes to mid calf to left lower extremity. 5. Change every 2 days. Patient will need to follow-up with wound care center with Dr. Forman next 01/15/2024. Please call for appointment time and date. Discharge Orders/Prescriptions Prescriptions: New vancomycin 1.25 gram recon soln 1.25 g IV Q24H 39 Days Rx Instructions: stop date 02/16/25. Dx: foot osteomyelitis. Weekly bmp, cbc, esr, and vanc trough. Fax to [phone]. Routine picc care per protocol. insulin lispro [Humalog KwikPen Insulin] 100 unit/mL Insulin Pen See Protocol subcut TIDAC Qty: 0 0RF Protocol: 4. 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 or septic HIGH MEDIUM DOSING ALGORITHM sennosides-docusate sodium [Stimulant Laxative Plus] 8.6-50 mg Tablet 2 tab PO BID Qty: 0 0RF Continued meloxicam 7.5 mg tablet 7.5 mg PO DAILY terbinafine HCl 250 mg tablet 250 mg PO DAILY levothyroxine 150 mcg tablet 150 mcg PO DAILY Changed acetaminophen 500 mg tablet 1,000 mg PO TID 30 Days Qty: 0 0RF Discontinued acetaminophen [Mapap (acetaminophen)] 500 mg capsule 1,000 mg PO BID doxycycline hyclate 100 mg capsule 100 mg PO BID sennosides [Kaylene-catina] 8.6 mg tablet 8.6 mg PO BID PRN (Reason: constipation) Referrals / Follow Up: Jaden Forman DPM [Med Staff - Active Staff] - In 1 Week (Please follow-up the wound care center. Please call for appointment date and time. [phone]) Michael Meeks DO [Primary Care Provider] - Disposition Disposition (needs filled in before D/C Order can be placed): [facility]
[2025-01-08 11:20] VITALS: O2SAT 95
[2025-01-08 11:45] VITALS: BP 135/58; PULSE 60; RESP 16; TEMP 36.6; O2SAT 94
[2025-01-08 12:00] LABS: Bedside Glucose 110 mg/dL (74-106)
--- NOTE | 2025-01-08 14:08 | DS.PCM_ITS ---
Providers Date of Admission: 01/01/25 Date of Discharge: 01/08/25 Primary Care Physician: Dr. Michael Meeks, Consultations 01/02/25 02:40 Consult: Onc/Wound/vice president risk management Routine Comment: Consult: Podiatry Routine Consulting Provider: Jaden Forman Reason for Consult: Foot wound EMERGENT Consult: No MD Notified: Yes Date Notified: 01/02/25 Time Notified: 07:30 Method of Notification: Text 01/02/25 05:46 Consult: Infectious Disease Routine Consulting Provider: Juanjo Arias Reason for Consult: Bacteremia EMERGENT Consult: No Notified: Yes Date Notified: 01/02/25 Time Notified: 07:30 Method of Notification: Text Reason For Visit: INFECTED LEFT FOOT WOUND/ALTERED MS Diagnosis Discharge Diagnosis (1) Sepsis: Status: Acute Code(s): A41.9 - Sepsis, unspecified organism (2) MSSA bacteremia: Status: Acute Code(s): R78.81 - Bacteremia; B95.61 - Methicillin susceptible Staphylococcus aureus infection as the cause of diseases classified elsewhere (3) Altered mental status: Status: Acute Code(s): R41.82 - Altered mental status, unspecified (4) Acute kidney injury: Status: Acute Code(s): N17.9 - Acute kidney failure, unspecified Plan 89-year-old gentleman was admitted with fever and altered mental status and found to have cellulitis of the foot. On further workup it was found left foot acute osteomyelitis and MSSA bacteremia # Staph MSSA bacteremia in the setting of cellulitis of the foot * Patient's blood cultures are growing staph aureus * on IV vancomycin and zosyn * ID on board as well as podiatry * Urinalysis does not show any evidence of UTI. * Wound cultures growing staph aureus podiatry on board. 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 * TTE showed no evidence of vegetation and showed normal left ventricular size and systolic function with EF of 55% and moderate to severe mitral annular calcification and mild aortic stenosis with aortic valve mildly to moderately calcified and it appears tricuspid. * Repeat blood cultures from 01/03/2025 still growing gram-positive cocci in clusters in 2 out of 2 blood samples. * For foot surgery tomorrow. 01/05: Plan for surgery today. Wound culture PCR shows MSSA. 01/06: Patient had incision bone cortex of fifth metatarsal and fifth digit left foot with delayed primary closure of left foot. Postop diagnosis same osteomyelitis left fifth metatarsal foot. ID recommending 6 weeks of IV antibiotic at discharge. Blood culture positive of staph. Repeat blood culture from 01/05 pending. 1 wound culture with MRSA. Continue Vanco and Zosyn. Vancomycin prescription written stop date 02/16/2025. 6 weeks of IV antibiotics. PICC line tomorrow if 01/05 blood culture remain negative 01/07: Wound looks good. Continue dressing as per surgeon, RN. Podiatry follow- up. 01/08: Wound looks better. Seen by ID. Blood culture negative since 01/05. PICC line was ordered. 6 weeks of IV vancomycin stopped 02/26/2025. Follow-up ID in 2 to 3 weeks. #Acute encephalopathy likely due to MSSA bacteremia with history of dementia: Management as above. Blood culture from 01/06 prelim negative for 48 hours. Repeat blood culture from 01/06 is pending 01/08: Acute encephalopathy has resolved patient has history of severe dementia and sometimes gets delirium like acute agitation happened last on 01/06/2025 evening #Hyperglycemia: * This in the setting of impaired glucose tolerance. * Has known A1c of 6.1. * Will monitor closely for now and status sliding scale as needed #Thrombocytopenia: * Platelets are further down to 76 May be due to acute illness. Will monitor. * 01/05: Platelet count 83K. H&H 12/36.8%. #CASEY: * Will monitor creatinine and hydrate with IV fluids * Creatinine today is down to 1.51. * Was 1.95 on admission. Baseline creatinine is around 1.3. 01/05: BUN/creatinine 43/1.3. Continue and maintain intake and output charting and fluid correction #Hypothyroidism: On Synthroid #Debility and weakness with failure to thrive: PT OT on board. Fall precautions. #History of onycholysis: On terbinafine which was held due to worsening kidney function #Dementia: * Unclear if he has behavioral disturbance. He continues to remain lethargic * Started on melatonin. * If patient becomes agitated we will have to consider starting Seroquel. DVT prophylaxis: Heparin. Hold heparin due to dropping platelets. Admitting platelet count was 178 but patient had thrombocytopenia 1 40K on 09/17/2024. And showing improvement on Sunday therefore HIT it is unlikely Discharge medication reconciliation done. Discharge follow-up instructions completed. Discharge process discussed with the patient and all questions were answered to patient's satisfaction. Follow with PCP in 1 to 2 weeks Total time spent, exact 35 minutes on discharge meds reconciliation, examination, coordination of care with nurses and ancillary staff, review of imaging and blood test and discussion with the patient on follow-up instructions. Medications at Discharge Home Medications levothyroxine 150 mcg tablet 150 mcg PO DAILY 01/01/25 meloxicam 7.5 mg tablet 7.5 mg PO DAILY 01/01/25 terbinafine HCl 250 mg tablet 250 mg PO DAILY 01/01/25 vancomycin 1.25 gram intravenous solution 1.25 g IV Q24H 39 days 01/07/25 acetaminophen 500 mg tablet 1,000 mg (2 x 500 mg) PO TID 30 days #0 tabs 01/08/25 insulin lispro 100 unit/mL subcutaneous pen (Humalog KwikPen (U-100) Insulin) See Protocol subcut TIDAC #0 mL 01/08/25 sennosides 8.6 mg-docusate sodium 50 mg tablet (Stimulant Laxative Plus) 2 tab PO BID #0 tabs 01/08/25 Physical Exam Narrative Seen and examined. Discussed with the clinical staff pharmacist Patient awakes with the voice. Quite. Sleepy and drowsy Left foot dressing was done. He is on a pur?ed diet on supervised feed. DNR CC Physical exam General: Lethargic, sleepy. Wakes up on verbal command. Orientation cannot be ascertained or disoriented HEENT: Atraumatic, PERRLA, EOMI, Normocephalic. Oral: Oral mucosa dry. No Gingival or Mucosal Lesions/ Ulcerations Neck: Supple, No JVD, Negative Carotid Bruits Chest wall/Lungs: Air entry diminished in bilateral lung bases. No crepitation/rhonchi. On room air Cardiovascular: Regular rate and rhythm, Normal S1,S2, No M/G/R Abdomen: Bowel Sounds Present, Soft, Non Tender, Non-Distended : No dysuria. No renal angle tenderness. No suprapubic tenderness. Extremities: No edema, Capillary Refill Less than 3 Seconds Skin: Bilateral feet on the heel pad questions. Left foot bandage. Primary closure done. Musculoskeletal: ROM limited at knees and hips. Decreased muscle mass. No Tenderness to Palpation of Joints or Extremities Neurological: detailed neuroexam unobtainable no acute focal neurological deficit. Psych/Mental Status: Flat affect. Advanced dementia Weight / BMI Weight Weight: 197 lb 12.074 oz Body Mass Index (BMI) 24.7 ABG / Lab / Microbiology Data 01/08/25 05:03 01/08/25 05:03 Laboratory: Laboratory Results - last 24 hr 01/07/25 16:30: POC Glucose 156 H 01/07/25 21:21: Vancomycin Trough 11.9 01/08/25 05:03: WBC 8.0, RBC 3.55 L, Hgb 11.5 L, Hct 34.8 L, MCV 98.0 H, MCH 32.4 H, MCHC 33.0, RDW Std Deviation 47.1 H, RDW Coeff of Gary 13.1, Plt Count 159, MPV 10.5, Neut % (Auto) Not Reportable, Absolute Neuts (auto) 6.3, Absolute Lymphs (auto) 1.12, Total Counted 100, Neutrophils % (Manual) 77 H, Band Neutrophils % 2, Lymphocytes % (Manual) 14 L, Monocytes % (Manual) 2, Eosinophils % (Manual) 2, Basophils % (Manual) 1, Myelocytes % 2 H, Diff Path Review May foll, Platelet Estimate ADEQUATE, RBC Morphology NORM C+C, Sodium 142, Potassium 3.6, Chloride 106, Carbon Dioxide 26.8, Anion Gap 9, BUN 26 H, Creatinine 1.06, Estim Creat Clear Calc 57.57, Est GFR (MDRD) Non-Af 68, B UN/Creatinine Ratio 24.7 H, Glucose 125 H, Calcium 9.1 01/08/25 06:30: POC Glucose 151 H 01/08/25 11:40: POC Glucose 110 H Microbiology: Microbiology 01/05/25 17:00 Wound Abcess - Aerobic & Anaerobic Swabs Gram Stain - Final 01/05/25 17:00 Wound Abcess - Aerobic & Anaerobic Swabs Wound Culture - Final Staphylococcus epidermidis 01/05/25 17:00 Wound Abcess - Aerobic & Anaerobic Swabs Anaerobic Culture - Preliminary No growth in 48 hours. 01/05/25 17:00 Wound Abcess - Aerobic & Anaerobic Swabs Gram Stain - Final 01/05/25 17:00 Wound Abcess - Aerobic & Anaerobic Swabs Wound Culture - Final Staphylococcus aureus 01/05/25 17:00 Wound Abcess - Aerobic & Anaerobic Swabs Anaerobic Culture - Preliminary Checking for anaerobes, further studies to follow. 01/05/25 17:00 Tissue - 5th Toe Gram Stain - Final 01/05/25 17:00 Tissue - 5th Toe Wound Culture - Final Staphylococcus aureus 01/05/25 17:00 Tissue - 5th Toe Anaerobic Culture - Preliminary Checking for anaerobes, further studies to follow. 01/05/25 17:00 Bone - Metatarsal Gram Stain - Final 01/05/25 17:00 Bone - Metatarsal Wound Culture - Preliminary Staphylococcus aureus 01/05/25 17:00 Bone - Metatarsal Anaerobic Culture - Preliminary Checking for anaerobes, further studies to follow. 01/06/25 09:28 Blood Culture (Wb) - Anticubital Right Blood Culture - Preliminary No growth in 48 hours. 01/05/25 17:00 Tissue - Left Foot Gram Stain - Final 01/05/25 17:00 Tissue - Left Foot Wound Culture - Preliminary Staphylococcus aureus 01/05/25 07:35 Blood Culture (Wb) - Anticubital Right Blood Culture - Preliminary No growth in 48 hours. 01/03/25 10:00 Wound - Left Foot Gram Stain - Final 01/03/25 10:00 Wound - Left Foot Wound Culture - Final Meth. resistant Staph. aureus 01/03/25 10:00 Wound - Left Foot Anaerobic Culture - Final No anaerobic bacteria isolated. 01/03/25 06:15 Blood Culture (Wb) - Right Hand Blood Culture - Final Staphylococcus aureus 01/03/25 06:15 Blood Culture (Wb) - Venous Blood Culture - Final Staphylococcus aureus 01/02/25 11:55 Blood Culture (Wb) - Left Wrist Blood Culture - Final Staphylococcus aureus 01/01/25 17:10 Urine Catheter - Catheter Urine Culture - Final Culture exhibits no growth. 01/02/25 03:57 Wound - Left Foot Gram Stain - Final 01/02/25 03:57 Wound - Left Foot Wound Culture - Final Staphylococcus aureus 01/02/25 03:57 Wound - Left Foot Skin and Soft Tissue MRSA/MSSA (PCR - Final Staphylococcus aureus 01/01/25 15:30 Blood Culture (Wb) - Arm Left Blood Culture - Final Staphylococcus aureus 01/01/25 15:25 Blood Culture (Wb) - Right Forearm Bacteria Detection (PCR) - Final Staphylococcus aureus 01/01/25 15:25 Blood Culture (Wb) - Right Forearm Blood Culture - Final Staphylococcus aureus 01/02/25 02:05 Mucosa - Nasopharyngeal Respiratory Panel (PCR) - Final 01/02/25 02:05 Mucosa - Nasopharyngeal Coronavirus COVID-19 PCR - Final D/C Instructions DC O2, CPAP, BIPAP Needs Home O2 Discharge instructions: No Meaningful Use Info Meaningful Use Meaningful Use Diagnoses (Choose all that apply): None applicable Ischemic Stroke Statin Dosing Therapy Reference: STATIN DOSE THERAPY REFERENCE: * Patients > 75 years receive moderate or high dose statin therapy. * Patients 75 years or YOUNGER should receive HIGH intensity statin dose unless contraindicated. You will be required to document reason for non-treatment if statin daily dose does not meet guidelines. HIGH DOSE STATIN THERAPY DAILY Atorvastatin > than or = to 40 mg Rosuvastatin > than or = to 20 mg Amlodipine + Atorvastatin > than or = to 2.5/40 mg Ezetimibe + Simvastatin 10/80 mg Simvastatin 80mg Discharge Plan Admission Admit Date/Time: 01/01/25 23:52 Primary Reason for Your Visit: Left foot osteomyelitis. Attending Provider: Dusty Abad Primary Care Provider: Michael Meeks Consulting Providers: Mei Mckenzie; Sofia Lopez; Juanjo Arias; Jaden Forman Instructions Additional Instructions / Restrictions: Wound care/dressing changes, left lower extremity: 1. Remove all Stefan bandages and outer dressing. 2. Lightly blot left lower extremity to remove all dry skin and remaining blood with gauze and sterile saline 3. Apply Betadine paint to the incision, cover with Betadine soaked Adaptic 4. Cover with 4 x 4s, Curlex wrap, cast padding and 4 inch Stefan bandages from sulcus of toes to mid calf to left lower extremity. 5. Change every 2 days. Patient will need to follow-up with wound care center with Dr. Forman next 01/15/2024. Please call for appointment time and date. Discharge Orders/Prescriptions Prescriptions: New vancomycin 1.25 gram recon soln 1.25 g IV Q24H 39 Days Rx Instructions: stop date 02/16/25. Dx: foot osteomyelitis. Weekly bmp, cbc, esr, and vanc trough. Fax to [phone]. Routine picc care per protocol. insulin lispro [Humalog KwikPen Insulin] 100 unit/mL Insulin Pen See Protocol subcut TIDAC Qty: 0 0RF Protocol: 4. 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 or septic HIGH MEDIUM DOSING ALGORITHM sennosides-docusate sodium [Stimulant Laxative Plus] 8.6-50 mg Tablet 2 tab PO BID Qty: 0 0RF Continued meloxicam 7.5 mg tablet 7.5 mg PO DAILY terbinafine HCl 250 mg tablet 250 mg PO DAILY levothyroxine 150 mcg tablet 150 mcg PO DAILY Changed acetaminophen 500 mg tablet 1,000 mg PO TID 30 Days Qty: 0 0RF Discontinued acetaminophen [Mapap (acetaminophen)] 500 mg capsule 1,000 mg PO BID doxycycline hyclate 100 mg capsule 100 mg PO BID sennosides [Kaylene-catina] 8.6 mg tablet 8.6 mg PO BID PRN (Reason: constipation) Referrals / Follow Up: Jaden Forman DPM [Med Staff - Active Staff] - In 1 Week (Please follow-up the wound care center. Please call for appointment date and time. [phone]) Michael Meeks DO [Primary Care Provider] - Disposition Disposition (needs filled in before D/C Order can be placed): [facility] Charges/Coding Visit Charges Inpatient E&M: 07153 Disch Hosp >30min
--- NOTE | 2025-01-08 14:31 | CASEMGMT ---
Social Work Notified by physician that patient is ready for discharge today. Convalescent exemption form competed via the [employer]. Discharge Food Stylist arranging transportation and final communication to the SNF/family/nursing staff. Plan: Discharged skilled level of care under [facility] benefit on a convalescent stay. -DUSTIN [place]
[2025-01-08] MEDS: Na Biphos/Potassium Phosphate PACKET 1 PACKET PO ×2 (14:58→20:22)
--- NOTE | 2025-01-08 15:11 | CASEMGMT ---
Discharge Planning Discharge orders, signed med list, and transport time sent to [facility] at [place]. Physicians will transport pt by cot at 6:30p. Nursing, SW, and pts daughter (Sade) updated. Rosalia Medina DC Planning Asst.
[2025-01-08 17:11] LABS: Bedside Glucose 115 mg/dL (74-106)
[2025-01-08 17:43] VITALS: BP 134/78; PULSE 62; RESP 18; TEMP 36.7; O2SAT 98
--- NOTE | 2025-01-08 17:51 | NURSING ---
Report called to the [facility], all questions answered at this time
[2025-01-08 20:19] VITALS: BP 145/78; PULSE 85; RESP 16; TEMP 37.1; O2SAT 94
[2025-01-08] MEDS: MELATONIN 10 MG TABLET PO (20:22)
[2025-01-08] MEDS: Senna/Docusate Sodium 1 Tablet 2 TABLET PO (20:22)
[2025-01-08] MEDS: Vancomycin HCl 1,250 MG in 0.9% Normal Saline (250mL Bag) 250 ML 167 MG IV (21:00)
[2025-01-21 11:57] LABS: Pathologist Review Reviewed
== END 2025-01-08 22:55 | disposition skilled nursing facility (03) | DRG 853 ==
LOC: ED 22:24 → PCU 01-02 02:18
PROVIDERS: Podiatrist Foot & Ankle Surgery; Student in an Organized Health Care Education/Training Program; Admitting Provider Internal Medicine; Emergency Provider Emergency Medicine; Visit Provider Internal Medicine
PROC: 0Y6N0Z8 Detachment at Left Foot, Complete 5th Ray, Open Approach (ICD-10-PCS; principal; 2025-01-05 15:20)
DX: A41.01 Sepsis due to Methicillin susceptible Staphylococcus aureus (principal); G92.8 Other toxic encephalopathy; M86.9 Osteomyelitis, unspecified; N17.9 Acute kidney failure, unspecified; L03.116 Cellulitis of left lower limb; D69.6 Thrombocytopenia, unspecified; L97.524 Non-pressure chronic ulcer of other part of left foot with necrosis of bone; S91.302A Unspecified open wound, left foot, initial encounter; R62.7 Adult failure to thrive; Z51.5 Encounter for palliative care; F03.90 Unspecified dementia, unspecified severity, without behavioral disturbance, psychotic disturbance, mood disturbance, and anxiety; E03.9 Hypothyroidism, unspecified; I08.0 Rheumatic disorders of both mitral and aortic valves; K59.00 Constipation, unspecified; M54.2 Cervicalgia; B35.1 Tinea unguium; Z66 Do not resuscitate; H91.90 Unspecified hearing loss, unspecified ear; R41.82 Altered mental status, unspecified; Z79.890 Hormone replacement therapy; R50.9 Fever, unspecified; R73.9 Hyperglycemia, unspecified; R53.81 Other malaise; B95.62 Methicillin resistant Staphylococcus aureus infection as the cause of diseases classified elsewhere; Z79.899 Other long term (current) drug therapy; R73.02 Impaired glucose tolerance (oral)
CPT/HCPCS: 11044; 36415; 36569; 51702; 70450; 71046; 73620; 73630; 73700; 76000; 80048; 80053; 80202; 81001; 82140; 82803; 82962; 83036; 83605; 83735; 84100; 84443; 85025; 85610; 85652; 85730; 86140; 87015; 87040; 87070; 87075; 87077; 87086; 87102; 87116; 87149; 87186; 87205; 87206; 87633; 87635; 87640; 88305; 88311; 90715; 92526; 92610; 93005; 93306; 93922; 97162; 97166; 97530; 97535; 99284; 99285; A4216; J2405

== ENCOUNTER 2025-01-30 17:59 | Inpatient (IN) | payer MEDICARE, BC, SELFPAY ==
[2025-01-30] VITALS (15 sets, daily range): BP systolic 118–154; BP diastolic 64–102; PULSE 111–155; RESP 20–27; TEMP 38.1–39.4; O2SAT 88–98; BMI 27.9; BMI 27.5
--- NOTE | 2025-01-30 18:23 | EX.ED.DYSGE1 ---
HPI History of Present Illness Chief Complaint: Hypertension Informant: EMS and SNF Onset/Context/Timing Onset: Today Timing: Continuous Quality: Hypertension Location: Generalized Narrative Narrative: Patient presents with elevated blood pressure that was noticed today at the long term. EMS reported that the patient's blood pressure was 250/220. EMS also reports the patient was oxygen was 84% on room air. Currently, patient's blood pressure is 154/102. Patient is 94% on room air here. Patient is very poor informant. Patient states he just feels cold. PFSH [facility] Medical History Osteomyelitis of left foot Agitation due to dementia Closed head injury Fall Dementia Hypothyroidism Home Medications ?Medication ?Instructions ?Recorded ?Last Taken ?Type levothyroxine 150 mcg tablet 150 mcg PO DAILY 01/01/25 Unknown History meloxicam 7.5 mg tablet 7.5 mg PO DAILY 01/01/25 Unknown History terbinafine HCl 250 mg tablet 250 mg PO DAILY 01/01/25 Unknown History vancomycin 1.25 gram intravenous 1.25 g IV Q24H 39 days 01/07/25 Unknown Rx solution acetaminophen 500 mg tablet 1,000 mg (2 x 500 mg) PO TID 30 01/08/25 Unknown Rx days #0 tabs insulin lispro 100 unit/mL See Protocol subcut TIDAC #0 mL 01/08/25 Unknown Rx subcutaneous pen (Humalog KwikPen (U-100) Insulin) sennosides 8.6 mg-docusate sodium 2 tab PO BID #0 tabs 01/08/25 Unknown Rx 50 mg tablet (Stimulant Laxative Plus) Allergy/AdvReac Type Severity Reaction Status Date / Time shellfish derived Allergy unknown Verified 01/01/25 15:16 Social History Smoking Status: Never smoker ROS ROS ED Review of Systems ROS Unobtainable: due to mental condition EXAM Physical Exam Const Vital Signs: 01/30/25 18:01 01/30/25 18:08 01/30/25 18:13 Temperature 100.5 F H 100.5 F H Temperature Source Temporal Temporal Pulse Rate 145 H 144 H Respiratory Rate 24 H 27 H Respiratory Pattern Tachypnea Blood Pressure 154/102 H 154/102 H Blood Pressure Mean 119 119 Pulse Ox 95 94 Oxygen Delivery Method Room Air Room Air Oxygen Flow Rate (L/min) 01/30/25 19:18 01/30/25 19:35 01/30/25 19:43 Temperature 101.3 F H Temperature Source Core Pulse Rate 140 H 155 H 122 H Respiratory Rate 20 H Respiratory Pattern Blood Pressure 140/102 H 130/95 H 147/101 H Blood Pressure Mean 114 106 116 Pulse Ox 96 88 92 Oxygen Delivery Method Nasal Cannula Oxygen Flow Rate (L/min) 2 01/30/25 20:00 01/30/25 21:00 01/30/25 21:05 Temperature 102.9 F H 102.9 F H Temperature Source Oral Pulse Rate 111 H 118 H 118 H Respiratory Rate 22 H 20 H 20 H Respiratory Pattern Blood Pressure 136/92 H 118/87 H 118/87 H Blood Pressure Mean 106 97 97 Pulse Ox 96 96 96 Oxygen Delivery Method Nasal Cannula Nasal Cannula Oxygen Flow Rate (L/min) 2 2 Positive well nourished and well developed General Appearance ED: well developed and NAD Eyes PERRL and EOMs intact bilaterally Neck supple and no JVD Resp normal respiratory effort and clear to auscultation bilaterally Cardio regular rhythm Rate: tachycardic GI non-tender and non-distended Palpation: soft Extremity Extremity Narrative: There is a healing wound over the left foot. There is a dressing in place. Capillary refill was less than 2 seconds in all digits of the left foot. Sensation was grossly intact to light touch in all digits of the left foot. Patient is moving all toes. Neuro CN's II-XII intact bilaterally and no sensory deficits noted Sensorium / Orientation: alert Motor Exam: strength 5/5 throughout MDM MDM MDM Narrative Medical decision making narrative: Differential diagnosis includes but is not limited to sepsis, hypertensive urgency, electrolyte abnormality, osteomyelitis, urinary tract infection, pneumonia, cardiac dysrhythmia, and cardiac ischemia. EKG will be obtained to assess for cardiac dysrhythmia and cardiac ischemia. Chest x-ray will be obtained to assess for pneumonia and bronchitis. X-rays of the left foot will be obtained to assess for osteomyelitis. CBC will be obtained to assess for leukocytosis and anemia. Basic metabolic profile will be obtained to assess for electrolyte abnormality and renal function. Urinalysis will be obtained to assess for urinary tract infection and hematuria. Serum lactate will be obtained to assess for sepsis. High-sensitivity troponin will be obtained to assess for cardiac ischemia. Blood cultures will be obtained to assess for sepsis. Urine culture will be obtained to assess for urinary tract infection. History & Record Review Additional record(s) reviewed:: Prior inpatient record, Prior ED visit and Prior labs Lab Data Attestation: I reviewed the patient's lab results. Lab results narrative: CBC was reviewed. There is a mild anemia with a hemoglobin of 11.3 hematocrit 33.5. Comprehensive metabolic profile was reviewed. Creatinine was slightly elevated at 1.89. This is consistent with previous results. Alkaline phosphatase is mildly elevated at 198. Serum lactate was reviewed and was elevated at 2.6. Urinalysis was reviewed. Leukocyte Estrace was 500. There are greater than 100 white blood cells. There is 4+ bacteria. Occult blood was 250. There are greater than 100 red blood cells. Labs: Laboratory Results - last 24 hr 01/30/25 01/30/25 18:25 19:15 WBC 6.3 RBC 3.55 L Hgb 11.3 L Hct 33.5 L MCV 94.4 H MCH 31.8 MCHC 33.7 RDW Std Deviation 44.1 H RDW Coeff of [place] 12.7 Plt Count 177 MPV 9.6 Neut % (Auto) Not Reportable Absolute Neuts (auto) 5.2 Absolute Lymphs (auto) 0.38 L Total Counted 100 Neutrophils % (Manual) 70 Band Neutrophils % 13 H Lymphocytes % (Manual) 6 L Monocytes % (Manual) 3 Eosinophils % (Manual) 2 Metamyelocytes % 2 H Myelocytes % 4 H Diff Path Review May foll Platelet Estimate ADEQUATE PT 13.5 INR 1.0 APTT 25.1 Sodium 141 Potassium 3.3 Chloride 104 Carbon Dioxide 23.6 Anion Gap 13 BUN 23 H Creatinine 1.89 H Estim Creat Clear Calc 32.29 L Est GFR (MDRD) Non-Af 34 L BUN/Creatinine Ratio 11.9 Glucose 113 H Lactic Acid 2.6 H* Calcium 8.9 Total Bilirubin 0.49 AST 29 ALT 33 Alkaline Phosphatase 198 H Total Protein 6.5 Albumin 2.9 L Globulin 3.6 Albumin/Globulin Ratio 0.8 L Urine Color Yellow Urine Clarity Turbid Urine pH 6.0 Ur Specific [place] 1.015 Urine Protein 100 H Urine Glucose (UA) Normal Urine Ketones Negative Urine Occult Blood 250 H Urine Nitrite Negative Urine Bilirubin Negative Urine Urobilinogen Normal Ur Leukocyte Esterase 500 H Urine RBC > 100 SEEN Urine WBC >100 SEEN Ur Squamous Epith Cells 0-5 SEEN Urine Bacteria 4+ Urine Mucus 0 SEEN Radiography Chest X-Ray - ED: 1 View, Read by ED Physician, Read by Radiologist and - (Atelectasis versus infiltrate in the left lung base) Diagnostic Testing: Clinical Impression(s) from Imaging Studies Chest X-Ray 01/30/25 18:53 IMPRESSION: Pulmonary findings as above. Reading Location: [place] [address] Portable 1 view chest x-ray was obtained. On my independent interpretation, there are reticular opacities of the left lung base which could be atelectasis or infiltrate. There is no evidence of cardiomegaly. Bony thorax is normal. Radiologist also interpreted the x-rays and agrees. EKG Initial EKG: Attestation: I personally reviewed and interpreted this EKG as follows: Interpretation: Atrial Fibrillation (141) and Non-Specific ST Changes Comments: EKG was obtained. On my independent interpretation, shows atrial fibrillation with a rate of 141. QRS interval was normal at 78 ms. QTc interval was normal at 404 ms. [place] was normal. There are no acute ST or T wave changes noted. Compared to previous EKG dated 01/01/2025, the atrial fibrillation is new. Management Discussion w/another healthcare provider: Hospitalist Treatment and Re-Evaluation :: Patient was given a dose of Cardizem here. Patient's heart rate improved after this. Patient was given rectal Tylenol. Patient was given a dose of Zosyn. Case was discussed with the hospitalist. He recommended IV fluids. He will evaluate the patient. He will admit the patient to his service. He recommended giving the patient a dose of Lovenox for his A-fib. This was ordered. He will admit the patient to ICU. Critical Care Time Critical Care Time: Yes Critical care time (excluding procedures): 30-74 minutes (33), Including time spent:, Discussing w/Patient &/or Family/Therapy Site Coordinator, Discussing w/Consultants, Arranging Admission or Transfer and Performing Direct Patient Care at Bedside Discharge Plan Dx/Rx/DC Orders Clinical Impression: Urinary tract infection, Fever, Cellulitis of left foot, Lactic acidosis, Atrial fibrillation with rapid ventricular response, Sepsis Disposition Disposition: Acute Care Hospital [facility]
--- NOTE | 2025-01-30 18:53 | RAD_ITS ---
PROCEDURE: CHEST 1 VIEW (PORTABLE) 01/30/2025 REASON FOR EXAM: FEVER TECHNIQUE: Frontal view of the chest. COMPARISON: 01/01/2025. FINDINGS: The heart is normal in size. Faint reticular opacities of the left lung base which may represent atelectasis or infection. No acute osseous abnormalities. RAD/Chest 1 View (Portable) IMPRESSION: Pulmonary findings as above. Reading Location: [place] [id number]
[2025-01-30 19:07] LABS: Hematocrit 33.5 % (40-54); Hemoglobin 11.3 g/dL (13.0-16.5); Mean Corp Hgb Conc 33.7 g/dL (32-36); Mean Corpuscular Volume 94.4 fL (80-94); Mean Platelet Vol. 9.6 fl (6.2-12.0); POSITIVE COUNT YES; POSITIVE DIFFERENTIAL YES; POSITIVE MORPHOLOGY YES; Platelet Count 177 K/mm3 (150-450); RBC Distribution Width CV 12.7 % (11.6-14.6); RBC Distribution Width SD 44.1 fl (35.1-43.9); Red Blood Count 3.55 M/mm3 (4.6-6.2); White Blood Count 6.3 K/mm3 (4.4-11.0)
[2025-01-30 19:10] LABS: Differential Indicated MANUAL DIFF
[2025-01-30 19:13] LABS: Prothrombin Time (Protime)PT. 13.5 SECONDS (11.7-14.9)
[2025-01-30 19:14] LABS: Partial Thromboplast Time 25.1 Seconds (24.1-36.2)
[2025-01-30 19:22] LABS: Mucous, Urine 0 SEEN /hpf (<or=2+)
[2025-01-30 19:27] LABS: AST(SGOT) 29 U/L (<=37); Alanine Aminotransfer ALT/SGPT 33 U/L (<=46); Albumin, Serum 2.9 g/dL (3.4-4.8); Alkaline Phosphatase 198 U/L (40-129); Anion Gap 13 (5-15); BUN 23 mg/dL (4-19); BUN/Creat Ratio 11.9 RATIO (10-20); Calcium,Total 8.9 mg/dL (7.6-11.0); Carbon Dioxide 23.6 mmol/L (21.0-32.0); Chloride 104 mmol/L (98-108); Estimated Creatinine Clearance 32.29 ml/min (50-250); Globulin 3.6 g/dL (2.2-4.2); Glucose 113 mg/dL (70-99); Potassium 3.3 mmol/L (3.3-5.1)
[2025-01-30 19:33] LABS: Color, Urine Yellow (Yellow); Glucose, Dipstick Normal (Normal); Ketone-Dipstick Negative (Negative); Leukocyte Esterase-Dipstick 500 /ul (Negative); Nitrite-Dipstick Negative (Negative); Occult Blood-Urine 250 /ul (Negative); Protein-Dipstick 100 mg/dl (Negative); Specific Gravity, Urine 1.015 (1.002-1.030); Urine Bilirubin Dipstick Negative (Negative)
[2025-01-30 19:57] LABS: Red Blood Cells-Urine > 100 SEEN /hpf (0-5); Squamous Epithelial Cells - UA 0-5 SEEN /hpf (0-5)
[2025-01-30 20:06] LABS: Neutrophil-Segmented 70 % (47-70); Total Cells Counted 100 (MANUAL DIFF)
[2025-01-30 20:09] LABS: Neutrophil-Band 13 % (0-5)
[2025-01-30] MEDS: Piperacil/Tazobactam 4.5 GM in 0.9% Normal Saline (100mL MB+) 100 ML IV (20:55)
--- NOTE | 2025-01-30 21:12 | PCM.HP.STD ---
HPI - General General Date of Admission: 01/30/25 Date of Service: 01/30/25 Chief Complaint: Confusion and elevated BP HPI Narrative GANESH FLORES, is a 89 M who presented to [facility] ED on 01/30/2025 from retirement for confusion and elevated BP. Patient was recently hospitalized here from 12/31-01/08 for MSSA bacteremia secondary to cellulitis of the foot. Hospital course was complicated by acute encephalopathy suspected secondary to bacteremia in setting of underlying dementia, CASEY, thrombocytopenia and weakness. He was discharged to SNF on 01/08 with plan for 6 weeks of IV vancomycin total. He presented from SNF today with confusion and elevated BP. Staff noted that his BP was in the 220s systolic. They also noted that he was hypoxic to the mid 80s on room air. In the ED here he was mildly hypertensive to the 150s systolic but was found to have new onset A-fib with RVR with rate to the 140s. Was also found to be febrile to 102.9F. CBC was benign. BMP showed creatinine 1.89 (baseline around 1.0). Lactic acid 2.6. UA with 500 leukocyte esterase, greater than 100 WBCs, 4+ bacteria concerning for UTI. Given concern for urosepsis, patient was given 1 L of IV fluids to start as well as a dose of IV Zosyn. He was also an IV Cardizem bolus with rate improvement to the 100s to 110s. Hospitalist was then contacted for admission. I saw the patient at bedside in the ED. Patient was sitting back in bed comfortably but was confused. He was able to tell me his name but could not answer any other questions appropriately for me. Will be admitted for further management. [facility] Medical History Osteomyelitis of left foot Agitation due to dementia Closed head injury Fall Dementia Hypothyroidism Home Medications ?Medication ?Instructions ?Recorded ?Last Taken ?Type levothyroxine 150 mcg tablet 150 mcg PO DAILY 01/01/25 Unknown History meloxicam 7.5 mg tablet 7.5 mg PO DAILY 01/01/25 Unknown History terbinafine HCl 250 mg tablet 250 mg PO DAILY 01/01/25 Unknown History vancomycin 1.25 gram intravenous 1.25 g IV Q24H 39 days 01/07/25 Unknown Rx solution acetaminophen 500 mg tablet 1,000 mg (2 x 500 mg) PO TID 30 01/08/25 Unknown Rx days #0 tabs insulin lispro 100 unit/mL See Protocol subcut TIDAC #0 mL 01/08/25 Unknown Rx subcutaneous pen (Humalog KwikPen (U-100) Insulin) sennosides 8.6 mg-docusate sodium 2 tab PO BID #0 tabs 01/08/25 Unknown Rx 50 mg tablet (Stimulant Laxative Plus) Allergy/AdvReac Type Severity Reaction Status Date / Time shellfish derived Allergy unknown Verified 01/01/25 15:16 Social History Smoking Status: Never smoker ROS Review of Systems ROS Unobtainable: due to encephalopathy Vital Signs Vital Signs Vital Signs: 01/30/25 18:01 01/30/25 18:08 01/30/25 18:13 Temperature 100.5 F H 100.5 F H Temperature Source Temporal Temporal Pulse Rate 145 H 144 H Respiratory Rate 24 H 27 H Respiratory Pattern Tachypnea Blood Pressure 154/102 H 154/102 H Blood Pressure Mean 119 119 Pulse Ox 95 94 Oxygen Delivery Method Room Air Room Air Oxygen Flow Rate (L/min) 01/30/25 19:18 01/30/25 19:35 01/30/25 19:43 Temperature 101.3 F H Temperature Source Core Pulse Rate 140 H 155 H 122 H Respiratory Rate 20 H Respiratory Pattern Blood Pressure 140/102 H 130/95 H 147/101 H Blood Pressure Mean 114 106 116 Pulse Ox 96 88 92 Oxygen Delivery Method Nasal Cannula Oxygen Flow Rate (L/min) 2 01/30/25 20:00 01/30/25 21:00 01/30/25 21:05 Temperature 102.9 F H 102.9 F H Temperature Source Oral Pulse Rate 111 H 118 H 118 H Respiratory Rate 22 H 20 H 20 H Respiratory Pattern Blood Pressure 136/92 H 118/87 H 118/87 H Blood Pressure Mean 106 97 97 Pulse Ox 96 96 96 Oxygen Delivery Method Nasal Cannula Nasal Cannula Oxygen Flow Rate (L/min) 2 2 Weight Weight: 101.4 kg Body Mass Index (BMI) 27.9 Physical Exam Const alert, no apparent distress and average body habitus Constitutional Narrative: Elderly male, sitting back in bed, mildly fatigued and flushed appearing, alert to person only, not answering any other questions appropriately, otherwise in no acute distress. General Appearance: cooperative Orientation / Consciousness: confused HEENT normocephalic, head/scalp atraumatic, hearing grossly normal bilaterally and nasal mucous membranes and turbinates normal HEENT Narrative: Dry mucous membranes. Eyes PERRL, EOMs intact bilaterally and conjunctivae normal Neck full ROM Chest inspection of chest normal Resp normal respiratory effort, normal air movement, no use of accessory muscles and clear to auscultation bilaterally Cardio no murmurs and peripheral pulses 2+ throughout Cardio Narrative: A-fib with RVR. GI normal to inspection, nondistended, normoactive bowel sounds, soft to palpation, non-tender and non-distended no CVA tenderness Bladder / Kidney Exam: catheter in place and bladder normal to palpation Back/Spine normal ROM Extremity normal to inspection, full ROM and no pedal edema Skin no rashes or lesions noted Results Lab / Micro Data 01/30/25 18:25 01/30/25 18:25 Labs: Laboratory Results - last 24 hr 01/30/25 18:25: WBC 6.3, RBC 3.55 L, Hgb 11.3 L, Hct 33.5 L, MCV 94.4 H, MCH 31.8, MCHC 33.7, RDW Std Deviation 44.1 H, RDW Coeff of [place] 12.7, Plt Count 177, MPV 9.6, Neut % (Auto) Not Reportable, Absolute Neuts (auto) 5.2, Absolute Lymphs (auto) 0.38 L, Total Counted 100, Neutrophils % (Manual) 70, Band Neutrophils % 13 H, Lymphocytes % (Manual) 6 L, Monocytes % (Manual) 3, Eosinophils % (Manual) 2, Metamyelocytes % 2 H, Myelocytes % 4 H, Diff Path Review November, Platelet Estimate ADEQUATE, PT 13.5, INR 1.0, APTT 25.1, Sodium 141, Potassium 3.3, Chloride 104, Carbon Dioxide 23.6, Anion Gap 13, BUN 23 H, Creatinine 1.89 H, Estim Creat Clear Calc 32.29 L, Est GFR (MDRD) Non-Af 34 L, BUN/Creatinine Ratio 11.9, Glucose 113 H, Lactic Acid 2.6 H*, Calcium 8.9, Total Bilirubin 0.49, AST 29, ALT 33, Alkaline Phosphatase 198 H, Total Protein 6.5, Albumin 2.9 L, Globulin 3.6, Albumin/Globulin Ratio 0.8 L 01/30/25 19:15: Urine Color Yellow, Urine Clarity Turbid, Urine pH 6.0, Ur Specific [place] 1.015, Urine Protein 100 H, Urine Glucose (UA) Normal, Urine Ketones Negative, Urine Occult Blood 250 H, Urine Nitrite Negative, Urine Bilirubin Negative, Urine Urobilinogen Normal, Ur Leukocyte Esterase 500 H, Urine RBC > 100 SEEN, Urine WBC >100 SEEN, Ur Squamous Epith Cells 0-5 SEEN, Urine Bacteria 4+, Urine Mucus 0 SEEN Imaging Radiology Impression Chest X-Ray 01/30/25 18:53 IMPRESSION: Pulmonary findings as above. Reading Location: [place] [id number] Assessment & Plan Assessment/Plan (1) Sepsis: (2) Urinary tract infection: (3) Atrial fibrillation with rapid ventricular response: PLAN: Plan Patient is an 89-year-old male who presented [facility] ED on 01/30/2025 with confusion and elevated BP. 1. Sepsis suspected secondary to UTI ? Admit under inpatient status to ICU. Met sepsis criteria on admit with fevers, tachycardia, elevated lactate, CASEY and acute encephalopathy presumed secondary to UTI. UA showed 500 leukocyte esterase, 4+ bacteria. Holguin catheter placed on admission for concern for urinary retention. Renal ultrasound showed no hydronephrosis or evidence of pyelonephritis. Will give 3 L IV fluids total for sepsis. Will treat with IV Zosyn, and notably IV vancomycin continued as below. Follow-up urine culture and blood cultures. 2. Acute metabolic encephalopathy with history of dementia ? Alert and oriented x 1 to person only and confused appearing on admit. However, unclear how far from baseline patient currently is given his history of underlying dementia. Treatment as above. Avoid sedating medications as able. 3. New onset A-fib with RVR ? New onset A-fib with RVR with heart rate to the 140s in the ED. EKG confirmed A-fib. Given IV Cardizem bolus in the ED with rate improvement to the 100s to 110s. Given dose of therapeutic Lovenox in the ED as well. Had echo done recently on 01/02 that showed mildly dilated LA and RA, EF 55%, mild aortic stenosis. Will initiate Eliquis 2.5 mg twice daily for anticoagulation. Treated with IV fluids as above, will hold on rate control agent at this time. Monitor cardiac telemetry. 4. CASEY ? Creatinine 1.89 on admit, baseline around 1.0-1.1. Presume prerenal etiology in setting of sepsis as above. Holguin catheter was placed on admit. Giving IV fluids as above. Monitor daily BMP and urine output. 5. Acute on chronic debility ? PT/OT/case management consulted. Patient presented from SNF and suspect he will need SNF placement again on discharge. 6. Recent MSSA bacteremia secondary to left foot infection ? Recent hospitalization in December for this. Plan was for 6 weeks of IV vancomycin with stop date 02/16. Foot evaluated by ED physician and did not appear acutely infectious, was wrapped with Stefan wrap. Continue IV vancomycin. 7. Hypothyroidism ? Continue home Synthroid. DVT prophylaxis: Not indicated, on Eliquis CODE STATUS: DNR CCA, DNI Expected disposition: TBD Total clinical time spent by myself addressing the patient's medical issues, reviewing all the data, and collaborating with patient's care team: 75 minutes. Charges/Coding Visit Charges Inpatient E&M: 31775 Init Hosp L3
[2025-01-30] MEDS: 0.9% Normal Saline (1000mL) 1,000 ML 1000 ML IV (21:19)
--- NOTE | 2025-01-30 21:33 | US_ITS ---
PROCEDURE: KIDNEY AND BLADDER 01/30/2025 REASON FOR EXAM: UROSEPSIS, EVAL FOR PYELO TECHNIQUE: Grayscale and color Doppler ultrasound of the kidneys COMPARISON: None FINDINGS: Kidneys: Renal cortices appear mildly increased in echogenicity. [place]: No hydronephrosis on either side Cysts or Masses: Limited evaluation due to shadowing bowel gas, without discrete mass identified RIGHT Kidney Size: 11.0 x 4.8 x 4.7 cm Volume: 129.2 mL Cortical Thickness (if discernible): 11 mm (>6mm is normal) LEFT Kidney Size: 9.5 x 4.8 x 4.5 cm Volume: 107.5 mL Cortical Thickness (if discernible): 10 mm (>6mm is normal) Urinary bladder was not imaged due to presence of Holguin catheter. US/Kidney and Bladder IMPRESSION: 1. Slightly limited evaluation due to shadowing bowel gas. Mildly increased e chogenicity of the renal cortices, suggestive of medical renal disease. 2. No hydronephrosis. Reading Location: [id number]
[2025-01-30 21:38] LABS: Magnesium 1.7 mg/dL (1.5-2.2)
--- OUTSIDE RECORDS SUMMARY | 2025-01-30 21:43 | XMS RPT_ITS | CCD ---
Author Organization [facility] Care Team Providers Care Set Decorator Name Role Phone Moon RIVERO, Dr. Alberto Marrufo Primary Care Provider [phone] Dr. Alberto Mustafa MD Attending Provider Dr. Alberto Mustafa MD Referring Provider Dr. Maliha Youngblood DO Emergency Provider Meeks DO, Dr. Solitario Admit Provider Unavail able Dr. Altaf Meeks DO Other Provider Unavail able Dr. Demetrius Nahs DO Attending Provider [phone] Dr. Kamari Lockhart MD Attending Provider Dr. Demetrius Nash DO Other Provider Dr. Michael Meeks MD Attending Provider Unavail able Dr. Jaden Forman DPM Attending Provider Dr. Michael Meeks DO Referring Provider Dr. Alberto Mustafa MD Primary Care Provider Dr. Alberto Mustafa MD Attending Provider Dr. Alberto Mustafa MD Referring Provider Dr. Michael Meeks MD Referring Provider Unavail able Dr. Booker Rodríguez DO Emergency Provider [phone] Dr. Michael Meeks DO Primary Care Provider Dr. Mei Mckenzie DO Admit Provider Dr. Mei Mckenzie DO Attending Provider Dr. Mei Mckenzie DO Other Provider Dr. Mei Mckenzie DO Other Provider John RIVERO, Dr. Sofia Reese Attending Provider Juana RIVERO, Dr. Geiger Other Provider Forman DPM, Dr. Stanley Other Provider Jonah WOLF, Dr. Hurley Attending Provider Moon RIVERO, Dr. Alberto Marrufo Primary Care Provider Moon RIVERO, Dr. Alberto Marrufo Attending Provider Moon RIVERO, Dr. Alberto Marrufo Referring Provider [phone] Ford WOLF, Dr. Jett Emergency Provider Meeks DO, Dr. Solitario Admit Provider Unavail able Meeks DO, Dr. Solitario Other Provider Unavail able Saad WOLF, Dr. Romo Attending Provider Richy RIVERO, Dr. Benites Attending Provider Saad WOLF, Dr. Romo Other Provider Dr. Michael Meeks MD Attending Provider Unavail able Forman DPM, Dr. Stanley Attending Provider Dr. Michael Meeks DO Referring Provider Dr. Michael Meeks MD Referring Provider Unavail able Marcos WOLF, Dr. Celeste Attending Provider Marcos WOLF, Dr. Celeste Emergency Provider Dr. Michael Meeks DO Primary Care Provider Dr. Mei Mckenzie DO Admit Provider Jonah WOLF, Dr. Hurley Other Provider Pollo RIVERO, Dr. Montano Attending Provider John RIVERO, Dr. Sofia Reese Other Provider Juana RIVERO, Dr. Geiegr Other Provider Dickson DPM, Dr. Stanley Other Provider Jonah WOLF, Dr. Hurley Attending Provider Vinnie RIVERO, Dr. Roger Attending Provider Unavailchris Lopez MD, Dr. Sofia Reese Attending Provider Pollo RIVERO, Dr. Montano Other Provider Moon RIVERO, Dr. Alberto Marrufo Primary Care Provider Marcos WOLF, Dr. Celeste Attending Provider Pollo RIVERO, Dr. Montano Attending Provider John RIVERO, Dr. Sofia Reese Other Provider John RIVERO, Dr. Sofia Reese Attending Provider Vinnie RIVERO, Dr. Roger Attending Provider Unavailchris Cervantes MD, Dr. Celeste Attending Provider Dickson BRIGGS, Dr. Stanley Referring Provider Pollo RIVERO, Dr. Montano Other Provider Jaden Forman Referring Unavailable Booker Cervantes Attending Unavailable Constantino, Michael Primary Care Unavailable Schinner, Alberto E Primary Care Unavailable Jaden Forman Attending Unavailable Michael Meeks Referring Unavailable Schinner, Alberto E Primary Care Unavailable Michael Ray Attending Unavailable Schinner, Alberto E Primary Care Unavailable Michael Ray Attending Unavailable Schinner, Alberto E Primary Care Unavailable Jaden Forman Attending Unavailable Michael Meeks Referring Unavailable Schinner, Alberto E Attending Unavailable Schinner, Alberto E Primary Care Unavailable Schinner, Alberto E Referring Unavailable Schinner, Alberto E Primary Care Unavailable Michael Ray Attending Unavailable Michael Meeks Primary Care Unavailable Mei Mckenzie Consulting Unavailable Mei Mckenzie Admitting Unavailable Dusty Abad Attending Unavailable Sofia Lopez Consulting Unavailable Juanjo Arias Consulting Unavailable Jaden Forman Consulting Unavailable Altaf Meeks Consulting Unavailable Altaf Meeks Admitting Unavailable Demetrius Nash Attending Unavailable Schinner, Alberto E Primary Care Unavailable Schinner, Alberto E Primary Care Unavailable Michael Ray Attending Unavailable Schinner, Alberto E Primary Care Unavailable Michael Ray Attending Unavailable Michael Ray Referring Unavailable Schinner, Alberto E Primary Care Unavailable Michael Ray Attending Unavailable Schinner, Alberto E Primary Care Unavailable Meeks OLS, Michael Attending Unavailable Alberto Mustafa Primary Care Unavailable Jaden Forman Attending Unavailable Michael Meeks Referring Unavailable Alberto Mustafa Attending Unavailable SchAlberto logan Primary Care Unavailable SchinAlberto longo Referring Unavailable Booker Rodríguez Attending Unavailable Michael Meeks Primary Care Unavailable Schindonta, Alberto Marrufo Primary Care Unavailable Jaden Forman Attending Unavailable Michael Meeks Referring Unavailable Alberto Mustafa Primary Care Unavailable Michael Ray Attending Unavailable Michael Meeks Primary Care Unavailable Kana Birmingham Attending Unavailable Schindonta, Alberto E Primary Care Unavailable SchinAlberto longo Referring Unavailable SchAlberto logan Attending Unavailable Alberto Mustafa Primary Care Unavailable Alberto Mustafa Attending Unavailable Alberto Mustafa Attending Unavailable Schdoreen, Alberto E Primary Care Unavailable SchAlberto logan Referring Unavailable Kamari Lockhart Attending Unavailmoo marrufo SchAlberto logan Primary Care Unavailable Jaden Forman Attending Unavailable Michael Meeks Referring Unavailable Michael Meeks Primary Care Unavailable Mei Mckenzie Admitting Unavailable Mei Mckenzie Consulting Unavailable Dusty Abad Attending Unavailable Michael Meeks Primary Care Unavailable Sofia Lopez Consulting Unavailable Juanjo Arias Consulting Unavailable Jaden Forman Consulting Unavailable Dusty Abad Consulting Unavailable Altaf Meeks Consulting Unavailable Alberto Mustafa Primary Care Unavailable Demetrius Nash Attending Unavailable Altaf Meeks Admitting Unavailable Demetrius Nash Consulting Unavailable Altaf Meeks Attending Unavailable Sofia Lopez Attending Unavailable Michael Meeks Primary Care Unavailable Mei Mckenzie Admitting Unavailable Mei Mckenzie Attending Unavailable Mei Mckenzie Consulting Unavailable Alberto Mustafa Primary Care Unavailable Alberto Mustafa Attending Unavailable Allergies Allergy Classification Reported Allergen(s) Allergy Type Date of Onset Reaction(s) Facility (1 source) Shellfish Drug allergy (disorder) 01-01-2025 [facility] Repository Medications Current Medications Medication Drug Class(es) Dates Sig (Normalized) Sig (Original) acetaminophen 500 mg oral tablet (20 sources) Start: 01-08-2025 take 2 tablets by mouth three times daily Acetaminophen 500 mg tablet Active 1000 mg PO THREE TIMES A DAY 0 30 0 January 08, 2025 2:07pm Start: 01-01-2025 End: 01-08-2025 take 1 capsule by mouth twice daily Acetaminophen (Acetaminophen 500 Mg Capsule) 500 mg capsule Discontinued 1000 mg PO TWICE A DAY January 01, 2025 12:00am January 08, 2025 2:04pm Start: 01-01-2025 End: 01-08-2025 take 1 tablet by mouth twice daily as needed for pain Acetaminophen 500 mg tablet Discontinued 500 mg PO TWICE A DAY as needed for fever or pain January 01, 2025 12:00am January 08, 2025 2:07pm Start: 09-19-2024 End: 01-01-2025 take 1-10 tablets by mouth every six hours as needed for pain Acetaminophen 325 mg Tablet Discontinued 650 mg PO EVERY 6 HOURS NEEDED as needed for Pain 1-10 Or Fever>100.7 0 0 September 19, 2024 1:00am January 01, 2025 3:20pm docusate sodium 50 mg / sennosides, longterm 8.6 mg oral tablet (2 sources) Start: 01-08-2025 Sennosides-Doc usate Sodium (Stimulant Laxative Plus) 8.6-50 mg Tablet Active 2 {tbl} PO TWICE A DAY 0 0 January 08, 2025 12:00am Start: 01-08-2025 3 ml insulin lispro 100 unt/ml pen injector (2 sources) Insulin Analog Start: 01-08-2025 Insulin Lispro (Humalog Kwikpen Insulin) 100 unit/mL Insulin Pen Active 0 U SC THREE TIMES DAILY BEFORE MEALS 0 0 January 08, 2025 12:00am Please contact the information source for Protocol details. Start: 01-08-2025 levothyroxine sodium 0.15 mg oral tablet (16 sources) l-Thyroxine Start: 01-01-2025 take 1 tablet by mouth once daily Levothyroxine 150 mcg tablet Active 150 ug PO DAILY January 01, 2025 12:00am Start: 09-16-2024 End: 01-01-2025 take 1 tablet by mouth once daily Levothyroxine 137 mcg tablet Discontinued 137 ug PO DAILY September 16, 2024 1:00am January 01, 2025 3:20pm meloxicam 7.5 mg oral tablet (4 sources) Nonsteroidal Anti-inflammatory Drug Start: 01-01-2025 take 1 tablet by mouth once daily Meloxicam 7.5 mg tablet Active 7.5 mg PO DAILY January 01, 2025 12:00am terbinafine 250 mg oral tablet (4 sources) Allylamine Antifungal Start: 01-01-2025 take 1 tablet by mouth once daily Terbinafine Hcl 250 mg tablet Active 250 mg PO DAILY January 01, 2025 12:00am vancomycin 1250 mg injection (2 sources) Glycopeptide Antibacterial Start: 01-07-2025 Vancomycin 1.25 gram recon soln Active 1.25 g IV Q24H 39 0 January 07, 2025 12:00am stop date 02/16/25. Dx: foot osteomyelitis. Weekly bmp, cbc, esr, and vanc trough. Fax to [phone]. Routine picc care per protocol. Completed/Discontinued Medications Medication Drug Class(es) Dates Sig (Normalized) Sig (Original) doxycycline hyclate 100 mg oral capsule (4 sources) Tetracycline-cla ss Drug Start: 01-01-2025 End: 01-07-2025 take 1 capsule by mouth twice daily Doxycycline Hyclate 100 mg capsule Discontinued 100 mg PO TWICE A DAY January 01, 2025 12:00am January 07, 2025 11:28am Sennosides (Kaylene-Nyasia) 8.6 mg tablet (3 sources) Start: 01-01-2025 End: 01-08-2025 take 1 tablet by mouth twice daily as needed for constipation Sennosides (Kaylene-Nyasia) 8.6 mg tablet Discontinued 8.6 mg PO TWICE A DAY as needed for constipation January 01, 2025 12:00am January 08, 2025 2:06pm Start: 01-01-2025 take 1 tablet by javi th twice daily as needed for constipation Sennosides (Kaylene-Nyasia) 8.6 mg tablet Active 8.6 mg PO TWICE A DAY as needed for constipation January 01, 2025 12:00am (1 source) Start: 01-01-2025 End: 01-08-2025 Problems Active Problems Problem Classification Problem Date Documented Date Episodic/Chronic Acute and unspecified renal failure (9 sources) Acute renal failure syndrome; Translations: [Acute kidney failure, unspecified] Onset: 01-08-2025 01-01-2025 Episodic Bacterial infection; unspecified site (8 sources) Bacteremia due to Staphylococcus aureus; Translations: [Bacteremia] Onset: 01-08-2025 01-02-2025 Episodic Cardiac dysrhythmias (1 source) Unspecified atrial fibrillation; Translations: [Unspecified atrial fibrillation] Onset: 10-21-2024 Chronic Cardiac dysrhythmias (9 sources) Tachycardia; Translations: [Tachycardia, unspecified] Onset: 01-08-2025 01-01-2025 Episodic Chronic ulcer of skin (20 sources) Non-pressure chronic ulcer of other part of left foot with fat layer exposed; Translations: [Non-pressure chronic ulcer of other part of left foot with fat layer exposed] Onset: 01-20-2025 10-09-2024 Chronic Delirium, dementia, and amnestic and other cognitive disorders (20 sources) Agitation due to dementia; Translations: [Agitation due to dementia] Onset: 12-24-2024 09-24-2024 Chronic Diabetes mellitus without complication (9 sources) Hyperglycemia; Translations: [Hyperglycemia, unspecified] Onset: 01-08-2025 01-02-2025 Episodic Disorders of lipid metabolism (1 source) Hyperlipidemia, unspecified; Translations: [Hyperlipidemia, unspecified] Onset: 06-23-2024 Chronic Fever of unknown origin (9 sources) Fever; Translations: [Fever, unspecified] Onset: 01-08-2025 01-01-2025 Episodic Infective arthritis and osteomyelitis (except that caused by tuberculosis or sexually transmitted disease) (7 sources) Osteomyelitis of left foot; Translations: [Osteomyelitis, unspecified] Onset: 01-08-2025 01-02-2025 Chronic Open wounds of extremities (5 sources) Tear of skin; Translations: [Laceration without foreign body of right upper arm, initial encounter] 12-31-2024 Episodic Open wounds of extremities (9 sources) Open wound of left foot; Translations: [Unspecified open wound, left foot, initial encounter] Onset: 01-08-2025 01-01-2025 Episodic Other connective tissue disease (1 source) Pain in arm, unspecified; Translations: [Pain in arm, unspecified] Onset: 01-21-2025 Episodic Other injuries and conditions due to external causes (20 sources) Closed injury of head; Translations: [Unspecified injury of head, initial encounter] 09-24-2024 Episodic Other injuries and conditions due to external causes (1 source) Encounter for examination and observation following other accident; Translations: [Encounter for examination and observation following other accident] Onset: 01-07-2025 Episodic Other nervous system disorders (8 sources) Toxic metabolic encephalopathy; Translations: [Toxic metabolic encephalopathy] 01-02-2025 Episodic Residual codes; unclassified (7 sources) Altered mental status; Translations: [Altered mental status, unspecified] 01-01-2025 Episodic Residual codes; unclassified (1 source) Altered mental status, unspecified; Translations: [Altered mental status, unspecified] Onset: 01-08-2025 Episodic Septicemia (except in labor) (7 sources) Sepsis; Translations: [Sepsis, unspecified organism] Onset: 01-08-2025 01-02-2025 Episodic Skin and subcutaneous tissue infections (7 sources) Cellulitis of left foot; Translations: [Cellulitis of left lower limb] Onset: 01-08-2025 01-02-2025 Episodic Superficial injury; contusion (12 sources) Contusion of lower back; Translations: [Contusion of lower back and pelvis, initial encounter] 09-16-2024 Episodic Thyroid disorders (20 sources) Hypothyroidism; Translations: [Hypothyroidism, unspecified] Onset: 05-22-2024 09-24-2024 Chronic Unclassified (1 source) Please follow-up the wound care center. Please call for appointment date and time. Unclassified (1 source) Other toxic encephalopathy; Translations: [Other toxic encephalopathy] Onset: 01-08-2025 Unclassified (2 sources) Unspecified dementia, severe, with agitation; Translations: [Unspecified dementia, severe, with agitation] Onset: 12-12-2024 Unclassified (1 source) Unspecified dementia, unspecified severity, with agitation; Translations: [Unspecified dementia, unspecified severity, with agitation] Onset: 09-20-2024 Past or Other Problems Problem Classification Problem Date Documented Da te Episodic/Chronic E Codes: Fall (20 sources) Fall; Translations: [Unspecified fall, initial encounter] Onset: 09-20-2024 09-24-2024 Episodic Other injuries and conditions due to external causes (1 source) Unspecified injury of head, sequela; Translations: [Unspecified injury of head, sequela] Onset: 09-20-2024 Episodic Other screening for suspected conditions (not mental disorders or infectious disease) (13 sources) Raised cardiac enzyme or marker; Translations: [Other specified abnormal findings of blood chemistry] Onset: 09-20-2024 09-17-2024 Episodic Residual codes; unclassified (1 source) Disorientation, unspecified; Translations: [Disorientation, unspecified] Onset: 10-02-2024 Episodic Residual codes; unclassified (1 source) Other amnesia; Translations: [Other amnesia] Onset: 05-22-2024 Episodic Results Test Name Value Interpretation Reference Range Facility CBC W/Diff, Automatedon 07-0 PATH REV Reviewed Normal [facility] Comment on above: Result Comment: SEE REPORT IN PATIENT'S EMR AMENDED REPORT 01/21/25 1157 PATH REV previously reported as: November Performed By: #### L 500.2500, L100.0100 ####[facility] [address] [place], [address] Culture, Anaerobic Any Sourc isaiah 01-12-2025 CUAN UNK UNK COLLECTED IN OR-LEFT FOOT POSTLAVAGE CULTURES No growth in 5 days. [facility] Comment on above: Performed By: #### M 100.2000, M100.4001, M100.3000 ####[facility] [address] [place], [address] Culture, Anaerobic Any Sourc isaiah 01-11-2025 CUAN Normal [facility] Comment on above: Performed By: #### M 100.4001, M100.3000, M100.2000 ####[facility] [address] [place], [address] Culture, Blood (WB)on 2024 CUB No growth in 5 days. Normal [facility] Comment on above: Performed By: #### M 200.1000 ####[facility] [address] [place], [address] Basic Metabolic Profile (BMP )on 01-10-2025 BUN Normal -19 [facility] Comment on above: Result Comment: Canc elled via OM: Order cancelled - Patient discharged Performed By: #### L 500.2500, L100.0100 ####[facility] [address] [place], [address] BUN/CRE Normal 10-20 [facility] Comment on above: Result Comment: Canc elled via OM: Order cancelled - Patient discharged Performed By: #### L 500.2500, L100.0100 ####[facility] [address] [place], [address] Calcium Normal 7.6-11.0 [facility] Comment on above: Result Comment: Canc elled via OM: Order cancelled - Patient discharged Performed By: #### L 500.2500, L100.0100 ####[facility] [address] [place], [address] CL Normal 98-108 [facility] Comment on above: Result Comment: Canc elled via OM: Order cancelled - Patient discharged Performed By: #### L 500.2500, L100.0100 ####[facility] [address] [place], [address] CO2 Normal 21.0-32.0 [facility] Comment on above: Result Comment: Canc elled via OM: Order cancelled - Patient discharged Performed By: #### L 500.2500, L100.0100 ####[facility] [address] [place], [address] CREAT,SERUM Normal 0.70-1.20 [facility] Comment on above: Result Comment: Canc elled via OM: Order cancelled - Patient discharged Performed By: #### L 500.2500, L100.0100 ####[facility] [address] [place], [address] eGFR Normal >60 [facility] Comment on above: Result Comment: Canc elled via OM: Order cancelled - Patient discharged Performed By: #### L 500.2500, L100.0100 ####[facility] [address] [place], [address] GAP Normal 5-15 [facility] Comment on above: Result Comment: Canc elled via OM: Order cancelled - Patient discharged Performed By: #### L 500.2500, L100.0100 ####[facility] [address] [place], [address] GLU Normal 70-99 [facility] Comment on above: Result Comment: Canc elled via OM: Order cancelled - Patient discharged Performed By: #### L 500.2500, L100.0100 ####[facility] [address] [place], [address] Potassium Normal 3.3-5.1 [facility] Comment on above: Result Comment: Canc elled via OM: Order cancelled - Patient discharged Performed By: #### L 500.2500, L100.0100 ####[facility] [address] [place], [address] Basic Metabolic Profile (BMP) Normal 133-145 [facility] Comment on above: Result Comment: Canc elled via OM: Order cancelled - Patient discharged Performed By: #### L 500.2500, L100.0100 ####[facility] [address] [place], [address] CBC W/Diff, Automatedon 06-2 Absolute Neut Normal 2.0-7.7 [facility] Comment on above: Result Comment: Canc elled via OM: Order cancelled - Patient discharged Performed By: #### L 500.2500, L100.0100 ####[facility] [address] [place], [address] HCT Normal 40-54 [facility] Comment on above: Result Comment: Canc elled via OM: Order cancelled - Patient discharged Performed By: #### L 500.2500, L100.0100 ####[facility] [address] [place], [address] HGB Normal 13.0-16.5 [facility] Comment on above: Result Comment: Canc elled via OM: Order cancelled - Patient discharged Performed By: #### L 500.2500, L100.0100 ####[facility] [address] [place], [address] MCH Normal 27.0-32.0 [facility] Comment on above: Result Comment: Canc elled via OM: Order cancelled - Patient discharged Performed By: #### L 500.2500, L100.0100 ####[facility] [address] [place], [address] MCHC Normal 32-36 [facility] Comment on above: Result Comment: Canc elled via OM: Order cancelled - Patient discharged Performed By: #### L 500.2500, L100.0100 ####[facility] [address] [place], [address] MCV Normal 80-94 [facility] Comment on above: Result Comment: Canc elled via OM: Order cancelled - Patient discharged Performed By: #### L 500.2500, L100.0100 ####[facility] [address] [place], [address] NEUT% Normal 47-70 [facility] Comment on above: Result Comment: Canc elled via OM: Order cancelled - Patient discharged Performed By: #### L 500.2500, L100.0100 ####[facility] [address] [place], [address] PLT Normal 150-450 [facility] Comment on above: Result Comment: Canc elled via OM: Order cancelled - Patient discharged Performed By: #### L 500.2500, L100.0100 ####[facility] [address] [place], [address] RBC Normal 4.6-6.2 [facility] Comment on above: Result Comment: Canc elled via OM: Order cancelled - Patient discharged Performed By: #### L 500.2500, L100.0100 ####[facility] [address] [place], [address] RDW CV Normal 11.6-14.6 [facility] Comment on above: Result Comment: Canc elled via OM: Order cancelled - Patient discharged Performed By: #### L 500.2500, L100.0100 ####[facility] [address] [place], [address] RDW SD Normal 35.1-43.9 [facility] Comment on above: Result Comment: Canc elled via OM: Order cancelled - Patient discharged Performed By: #### L 500.2500, L100.0100 ####[facility] [address] [place], [address] WBC Normal 4.4-11.0 [facility] Comment on above: Result Comment: Canc elled via OM: Order cancelled - Patient discharged Performed By: #### L 500.2500, L100.0100 ####[facility] [address] [place], [address] Culture, Anaerobic Any [facility] isaiah 01-10-2025 CUAN UNK UNK COLLECTED IN OR-LEFT FOOT PRELAVAGE CULTURES No anaerobic bacteria isolated. Normal [facility] Comment on above: Performed By: #### M 100.2000, M100.4001, M100.3000 ####[facility] [address] [place], [address] CUAN UNK UNK COLLECTED IN OR-L FOOT BONE CORTEX 5TH METATARSAL No anaerobic bacteria isolated. Normal [facility] Comment on above: Performed By: #### M 100.2000, M100.3000, M100.4001 ####[facility] [address] [place], [address] CUAN UNK UNK COLLECTED IN OR-L FOOT 5TH METATARSAL CLEAN MARGIN No anaerobic bacteria isolated. Normal [facility] Comment on above: Performed By: #### M 100.3000, M100.4001, M100.2000 ####[facility] [address] [place], [address] Culture, Blood (WB)on 2024 CUB No growth in 5 days. Normal [facility] Comment on above: Performed By: #### M 200.1000 ####[facility] [address] [place], [address] Basic Metabolic Profile (BMP )on 01-09-2025 BUN Normal 4-19 [facility] Comment on above: Result Comment: Canc elled via OM: Order cancelled - Patient discharged Performed By: #### L 100.0100, L500.2500 ####[facility] [address] [place], [address] BUN/CRE Normal 10-20 [facility] Comment on above: Result Comment: Canc elled via OM: Order cancelled - Patient discharged Performed By: #### L 100.0100, L500.2500 ####[facility] [address] [place], [address] Calcium Normal 7.6-11.0 [facility] Comment on above: Result Comment: Canc elled via OM: Order cancelled - Patient discharged Performed By: #### L 100.0100, L500.2500 ####[facility] [address] [place], [address] CL Normal 98-108 [facility] Comment on above: Result Comment: Canc elled via OM: Order cancelled - Patient discharged Performed By: #### L 100.0100, L500.2500 ####[facility] [address] [place], [address] CO2 Normal 21.0-32.0 [facility] Comment on above: Result Comment: Canc elled via OM: Order cancelled - Patient discharged Performed By: #### L 100.0100, L500.2500 ####[facility] [address] [place], [address] CREAT,SERUM Normal 0.70-1.20 [facility] Comment on above: Result Comment: Canc elled via OM: Order cancelled - Patient discharged Performed By: #### L 100.0100, L500.2500 ####[facility] [address] [place], [address] eGFR Normal >60 [facility] Comment on above: Result Comment: Canc elled via OM: Order cancelled - Patient discharged Performed By: #### L 100.0100, L500.2500 ####[facility] [address] [place], [address] GAP Normal 5-15 [facility] Comment on above: Result Comment: Canc elled via OM: Order cancelled - Patient discharged Performed By: #### L 100.0100, L500.2500 ####[facility] [address] [place], [address] GLU Normal 70-99 [facility] Comment on above: Result Comment: Canc elled via OM: Order cancelled - Patient discharged Performed By: #### L 100.0100, L500.2500 ####[facility] [address] [place], [address] Potassium Normal 3.3-5.1 [facility] Comment on above: Result Comment: Canc elled via OM: Order cancelled - Patient discharged Performed By: #### L 100.0100, L500.2500 ####[facility] [address] [place], [address] Basic Metabolic Profile (BMP) Normal 133-145 [facility] Comment on above: Result Comment: Canc elled via OM: Order cancelled - Patient discharged Performed By: #### L 100.0100, L500.2500 ####[facility] [address] [place], [address] CBC W/Diff, Automatedon 06-2 0-2024 Absolute Neut Normal 2.0-7.7 [facility] Comment on above: Result Comment: Canc elled via OM: Order cancelled - Patient discharged Performed By: #### L 100.0100, L500.2500 ####[facility] [address] [place], [address] HCT Normal 40-54 [facility] Comment on above: Result Comment: Canc elled via OM: Order cancelled - Patient discharged Performed By: #### L 100.0100, L500.2500 ####[facility] [address] [place], [address] HGB Normal 13.0-16.5 [facility] Comment on above: Result Comment: Canc elled via OM: Order cancelled - Patient discharged Performed By: #### L 100.0100, L500.2500 ####[facility] [address] [place], [address] MCH Normal 27.0-32.0 [facility] Comment on above: Result Comment: Canc elled via OM: Order cancelled - Patient discharged Performed By: #### L 100.0100, L500.2500 ####[facility] [address] [place], [address] MCHC Normal 32-36 [facility] Comment on above: Result Comment: Canc elled via OM: Order cancelled - Patient discharged Performed By: #### L 100.0100, L500.2500 ####[facility] [address] [place], [address] MCV Normal 80-94 [facility] Comment on above: Result Comment: Canc elled via OM: Order cancelled - Patient discharged Performed By: #### L 100.0100, L500.2500 ####[facility] [address] [place], [address] NEUT% Normal 47-70 [facility] Comment on above: Result Comment: Canc elled via OM: Order cancelled - Patient discharged Performed By: #### L 100.0100, L500.2500 ####[facility] [address] [place], [address] PLT Normal 150-450 [facility] Comment on above: Result Comment: Canc elled via OM: Order cancelled - Patient discharged Performed By: #### L 100.0100, L500.2500 ####[facility] [address] [place], [address] RBC Normal 4.6-6.2 [facility] Comment on above: Result Comment: Canc elled via OM: Order cancelled - Patient discharged Performed By: #### L 100.0100, L500.2500 ####[facility] [address] [place], [address] RDW CV Normal 11.6-14.6 [facility] Comment on above: Result Comment: Canc elled via OM: Order cancelled - Patient discharged Performed By: #### L 100.0100, L500.2500 ####[facility] [address] [place], [address] RDW SD Normal 35.1-43.9 [facility] Comment on above: Result Comment: Canc elled via OM: Order cancelled - Patient discharged Performed By: #### L 100.0100, L500.2500 ####[facility] [address] [place], [address] WBC Normal 4.4-11.0 [facility] Comment on above: Result Comment: Canc elled via OM: Order cancelled - Patient discharged Performed By: #### L 100.0100, L500.2500 ####[facility] [address] [place], [address] Wound Cultureon 01-09-2025 Normal [facility] Comment on above: Performed By: #### M 100.2000, M100.3000, M100.4001 ####[facility] [address] [place], [address] WC Normal [facility] Comment on above: Performed By: #### M 100.3000, M100.4001, M100.1999 ####[facility] [address] [place], [address] Absolute lymphocyte countOrd ered By: Sofia Lopez on 01-08-2025 Lymphocytes Auto (Unsp spec) [#/Vol] 1.12 10*3/uL 0.83-4.51 [facility] Absolute neutrophil countOrd ered By: Sofia Lopez on 01-08-2025 Neutrophils (Bld) [#/Vol] 6.3 10*3/uL 2.0-7.7 [facility] Anion gap in Serum or Plasma Ordered By: Sofia Lopez on 01-08-2025 Anion gap [Moles/Vol] 9 mmol/L 5-15 [facility] BUN/creatinine ratioOrdered By: Sofia Lopez on 01-08-2025 Urea nitrogen/Creatinine [Mass ratio] 24.7 mg/mg High 05-11 [facility] Basic Metabolic Profile (BMP )on 01-08-2025 BUN/CRE 24.7 RATIO High 05-11 [facility] Comment on above: Performed By: #### L 500.2500, L100.0100 ####[facility] [address] [place], [address] Calcium [Mass/Vol] 9.1 mg/dL Normal 7.6-11.0 [facility] Comment on above: Performed By: #### L 500.2500, L100.0100 ####[facility] [address] [place], [address] Chloride [Moles/Vol] 106 mmol/L Normal 98-108 [facility] Comment on above: Performed By: #### L 500.2500, L100.0100 ####[facility] [address] [place], [address] CO2 [Moles/Vol] 26.8 mmol/L Normal 21.0-32.0 [facility] Comment on above: Performed By: #### L 500.2500, L100.0100 ####[facility] [address] [place], [address] Creatinine [Mass/Vol] 1.06 mg/dL Normal 0.70-1.20 [facility] Comment on above: Performed By: #### L 500.2500, L100.0100 ####[facility] [address] [place], [address] ECRCL 57.57 ml/min Normal 50-250 [facility] Comment on above: Performed By: #### L 500.2500, L100.0100 ####[facility] [address] [place], [address] GAP 9 Normal 5-15 [facility] Comment on above: Performed By: #### L 500.2500, L100.0100 ####[facility] [address] [place], [address] GFR/1.73 sq M.predicted among non-blacks MDRD (S/P/Bld) [Vol rate/Area] 68 mL/min/{1.73_m2} Normal >[address] [facility] Comment on above: Result Comment: mL/m in/1.73m2 CKD-EPI Creatinine Equation (2020) Performed By: #### L 500.2500, L100.0100 ####[facility] [address] [place], [address] Glucose [Mass/Vol] 125 mg/dL High 70-99 [facility] Comment on above: Performed By: #### L 500.2500, L100.0100 ####[facility] [address] [place], [address] Potassium [Moles/Vol] 3.6 mmol/L Normal 3.3-5.1 [facility] Comment on above: Performed By: #### L 500.2500, L100.0100 ####[facility] [address] [place], [address] Sodium [Moles/Vol] 142 mmol/L Normal 133-145 [facility] Comment on above: Performed By: #### L 500.2500, L100.0100 ####[facility] [address] [place], [address] Urea nitrogen [Mass/Vol] 26 mg/dL High -19 [facility] Comment on above: Performed By: #### L 500.2500, L100.0100 ####[facility] [address] [place], [address] Bedside Glucoseon 01-08-2025 FINGERSTICK GLU 115 mg/dL High 74-106 [facility] Comment on above: Result Comment: [facility] GEMENT OF PATIENT CARE PER NURSING PROTOCOL Performed By: #### L 501.080 ####[facility] [address] [place], [address] FINGERSTICK GLU 110 mg/dL High 74-106 [facility] Comment on above: Result Comment: [facility] GEMENT OF PATIENT CARE PER NURSING PROTOCOL Performed By: #### L 501.080 ####[facility] [address] [place], [address] FINGERSTICK GLU 151 mg/dL High 74-106 [facility] Comment on above: Result Comment: [facility] GEMENT OF PATIENT CARE PER NURSING PROTOCOL Performed By: #### L 501.080 ####[facility] [address] [place], [address] Blood band neutrophil count as percentage of total leukocytesOrdered By: Sofia Lopez on 01-08-2025 Band form neutrophils/100 WBC (Bld) 2 % 0-5 [facility] Blood basophils/100 leukocyt esOrdered By: Sofia Lopez on 01-08-2025 Basophils/100 WBC (Bld) 1 % 0-1 [facility] Blood eosinophils/100 leukoc ytesOrdered By: Sofia Lopez on 01-08-2025 Eosinophils/100 WBC (Bld) 2 % 0-5 [facility] Blood lymphocytes/100 leukoc ytesOrdered By: Sofia Lopez on 01-08-2025 Lymphocytes/100 WBC (Bld) 14 % Low 19-41 [facility] Blood monocytes/100 leukocyt esOrdered By: Sofia Lopez on 01-08-2025 Monocytes/100 WBC (Bld) 2 % 0-10 [facility] Blood segmented neutrophils/ 100 leukocytesOrdered By: Sofia Lopez on 01-08-2025 Segmented neutrophils/100 WBC (Bld) 77 % High 47-70 [facility] Carbon dioxide, total [Moles /volume] in Central venous bloodOrdered By: Sofia Lopez on 01-08-2025 CO2 [Moles/Vol] 26.8 mmol/L 21.0-32.0 [facility] Chloride assayOrdered By: Na robert Lopez on 01-08-2025 Chloride [Moles/Vol] 106 mmol/L 98-108 [facility] Erythrocyte distribution wid th ratioOrdered By: Sofia Lopez on 01-08-2025 Erythrocyte distribution width (RBC) [Ratio] 13.1 % 11.6-14.6 [facility] Erythrocyte distribution wid th standard deviationOrdered By: Sofia Lopez on 01-08-2025 Erythrocyte distribution width (RBC) [Ratio] 47.1 fl High 35.1-43.9 [facility] Erythrocyte morphology asses smentOrdered By: Sofia Lopez on 01-08-2025 RBC morphology finding Nom (Bld) NORM C+C NORMAL NORM C&C [facility] Glomerular filtration rate ( GFR) estimation/1.73 sq m using serum, plasma, or whole bOrdered By: Sofia Lopez on 01-08-2025 GFR/1.73 sq M.predicted among non-blacks MDRD (S/P/Bld) [Vol rate/Area] 68 mL/min/{1.73_m2} >[address] [facility] Comment on above: mL/min/1.73m2 CKD-EP I Creatinine Equation (2020) [facility]dered By: Dusty Abad on 01-08-2025 Glucose [Mass/Vol] 115 mg/dL High 74-106 [facility] Comment on above: MANAGEMENT OF PATIEN T CARE PER NURSING PROTOCOL Hematocrit Auto (Bld) [Volum e fraction]Ordered By: Sofia Lopez on 01-08-2025 Hematocrit (Bld) [Volume fraction] 34.8 % Low 40-54 [facility] Hemoglobin measurementOrdere d By: Sofia Lopez on 01-08-2025 Hemoglobin (Bld) [Mass/Vol] 11.5 g/dL Low 13.0-16.5 [facility] MCV (mean corpuscular volume ) determinationOrdered By: Sofia Lopez on 01-08-2025 MCV (RBC) [Entitic vol] 98.0 fL High 80-94 [facility] Mean corpuscular hemoglobin (MCH) determinationOrdered By: Sofia Lopez on 01-08-2025 MCH (RBC) [Entitic mass] 32.4 pg High 27.0-32.0 [facility] Mean corpuscular hemoglobin concentration (MCHC) determinationOrdered By: Sofia Lopez on 01-08-2025 MCHC (RBC) [Mass/Vol] 33.0 g/dL 32-36 [facility] Mean platelet volume determi nationOrdered By: Sofia Lopez on 01-08-2025 Platelet mean volume (Bld) [Entitic vol] 10.5 fL 6.2-12.0 [facility] Myelocyte %Ordered By: Sofia Lopez on 01-08-2025 Myelocytes/100 WBC (Bld) 2 % High 0-0 [facility] Platelet countOrdered By: Robert Lopez on 01-08-2025 Platelets (Bld) [#/Vol] 159 10*3/uL 150-450 [facility] Platelet estimateOrdered By: Sofia Lopez on 01-08-2025 Platelets LM Ql (Bld) ADEQUATE ADEQ [facility] Potassium measurement (mass/ volume)Ordered By: Sofia Lopez on 01-08-2025 Potassium (Unsp spec) [Mass/Vol] 3.6 mmol/L 3.3-5.1 [facility] RBC Auto (Bld) [#/Vol]Ordere d By: Sofia Lopez on 01-08-2025 RBC (Bld) [#/Vol] 3.55 10*6/uL Low 4.6-6.2 [facility] Review by pathologistOrdered By: Sofia Lopez on 01-08-2025 Pathologist review Derek (Unsp spec) [Interp] November [facility] Serum creatinine measurement (mass/volume)Ordered By: Sofia Lopez on 01-08-2025 Creatinine [Mass/Vol] 1.06 mg/dL 0.70-1.20 [facility] Serum glucose measurement (m ass/volume)Ordered By: Sofia Lopez on 01-08-2025 Glucose [Mass/Vol] 125 mg/dL High 70-99 [facility] Serum or plasma calcium ana urement (mass/volume)Ordered By: Sofia Lopez on 01-08-2025 Calcium [Mass/Vol] 9.1 mg/dL 7.6-11.0 [facility] Serum or plasma urea nitroge n measurement (mass/volume)Ordered By: Sofia Lopez on 01-08-2025 Urea nitrogen [Mass/Vol] 26 mg/dL High 4-19 [facility] Sodium levelOrdered By: Sofia Lopez on 01-08-2025 Sodium [Moles/Vol] 142 mmol/L 133-145 [facility] Total cell countOrdered By: Sofia Lopez on 01-08-2025 Cells counted Molgen (Bld/Tiss) [#] 100 MANUAL DIFF [facility] White blood cell (WBC) count Ordered By: Sofia Lopez on 01-08-2025 WBC (Bld) [#/Vol] 8.0 10*3/uL 4.4-11.0 [facility] Wound Cultureon 01-08-2025 WC Normal [facility] Comment on above: Performed By: #### M 100.2000, M100.4001, M100.3000 ####[facility] [address] [place], [address] WC Normal [facility] Comment on above: Performed By: #### M 100.4001, M100.3000, M100.2000 ####[facility] [address] [place], [address] Performed By: #### M 100.2000, M100.4001, M100.3000 ####[facility] [address] [place], [address] Automated lymphocyte count a s percentage of total leukocytesOrdered By: Sofia Lopez on 01-07-2025 Lymphocytes/100 WBC Auto (Unsp spec) 10.3 % Low 19-41 [facility] Basic Metabolic Profile (BMP )on 01-07-2025 BUN/CRE 25.2 RATIO High 10-20 [facility] Comment on above: Performed By: #### L 500.2500, L100.0100 ####[facility] [address] [place], [address] Calcium [Mass/Vol] 9.0 mg/dL Normal 7.6-11.0 [facility] Comment on above: Performed By: #### L 500.2500, L100.0100 ####[facility] [address] [place], [address] Chloride [Moles/Vol] 111 mmol/L High 98-108 [facility] Comment on above: Performed By: #### L 500.2500, L100.0100 ####[facility] [address] [place], [address] CO2 [Moles/Vol] 26.1 mmol/L Normal 21.0-32.0 [facility] Comment on above: Performed By: #### L 500.2500, L100.0100 ####[facility] [address] [place], [address] Creatinine [Mass/Vol] 1.13 mg/dL Normal 0.70-1.20 [facility] Comment on above: Performed By: #### L 500.2500, L100.0100 ####[facility] [address] [place], [address] ECRCL 54.01 ml/min Normal 50-250 [facility] Comment on above: Performed By: #### L 500.2500, L100.0100 ####[facility] [address] [place], [address] GAP 8 Normal 5-15 [facility] Comment on above: Performed By: #### L 500.2500, L100.0100 ####[facility] [address] [place], [address] GFR/1.73 sq M.predicted among non-blacks MDRD (S/P/Bld) [Vol rate/Area] 63 mL/min/{1.73_m2} Normal >[address] [facility] Comment on above: Result Comment: mL/m in/1.73m2 CKD-EPI Creatinine Equation (2020) Performed By: #### L 500.2500, L100.0100 ####[facility] [address] [place], [address] Glucose [Mass/Vol] 119 mg/dL High 70-99 [facility] Comment on above: Performed By: #### L 500.2500, L100.0100 ####[facility] [address] [place], [address] Potassium [Moles/Vol] 3.7 mmol/L Normal 3.3-5.1 [facility] Comment on above: Performed By: #### L 500.2500, L100.0100 ####[facility] [address] [place], [address] Sodium [Moles/Vol] 145 mmol/L Normal 133-145 [facility] Comment on above: Performed By: #### L 500.2500, L100.0100 ####[facility] [address] [place], [address] Urea nitrogen [Mass/Vol] 29 mg/dL High 4-19 [facility] Comment on above: Performed By: #### L 500.2500, L100.0100 ####[facility] [address] [place], [address] Basophil percentageOrdered B y: Sofia Lopez on 01-07-2025 Basophils/100 WBC (Bld) 0.4 % 0-1 [facility] Bedside Glucoseon 01-07-2025 FINGERSTICK GLU 156 mg/dL High 74-106 [facility] Comment on above: Result Comment: [facility] GEMENT OF PATIENT CARE PER NURSING PROTOCOL Performed By: #### L 501.080 ####[facility] [address] [place], [address] FINGERSTICK GLU 113 mg/dL High 74-106 [facility] Comment on above: Result Comment: [facility] GEMENT OF PATIENT CARE PER NURSING PROTOCOL Performed By: #### L 501.080 ####[facility] [address] [place], [address] FINGERSTICK GLU 114 mg/dL High 74-106 [facility] Comment on above: Result Comment: [facility] GEMENT OF PATIENT CARE PER NURSING PROTOCOL Performed By: #### L 501.080 ####[facility] [address] [place], [address] CBC W/Diff, Automatedon - Absolute Lymph 0.69 X10 3/uL Low 0.83-4.51 [facility] Comment on above: Performed By: #### L 500.2500, L100.0100 ####[facility] [address] [place], [address] Absolute Neut 5.0 X10 3/uL Normal 2.0-7.7 [facility] Comment on above: Performed By: #### L 500.2500, L100.0100 ####[facility] [address] [place], [address] Basophils/100 WBC (Bld) 0.4 % Normal 0-1 [facility] Comment on above: Performed By: #### L 500.2500, L100.0100 ####[facility] [address] [place], [address] Eosinophils/100 WBC (Bld) 2.7 % Normal 0-5 [facility] Comment on above: Performed By: #### L 500.2500, L100.0100 ####[facility] [address] [place], [address] Erythrocyte distribution width (RBC) [Ratio] 13.2 % Normal 11.6-14.6 [facility] Comment on above: Performed By: #### L 500.2500, L100.0100 ####[facility] [address] [place], [address] Hematocrit (Bld) [Volume fraction] 34.5 % Low 40-54 [facility] Comment on above: Performed By: #### L 500.2500, L100.0100 ####[facility] [address] [place], [address] Hemoglobin (Bld) [Mass/Vol] 11.1 g/dL Low 13.0-16.5 [facility] Comment on above: Performed By: #### L 500.2500, L100.0100 ####[facility] [address] [place], [address] IG% 4.500 High 0.0-0.9 [facility] Comment on above: Result Comment: IG% - Immature Granulocytes (promyelocytes, myelocytes andmetamyelocytes) > 1% indicates that a LEFT SHIFT is Present. Performed By: #### L 500.2500, L100.0100 ####[facility] [address] [place], [address] Lymphocytes/100 WBC (Bld) 10.3 % Low 19-41 [facility] Comment on above: Performed By: #### L 500.2500, L100.0100 ####[facility] [address] [place], [address] MCH (RBC) [Entitic mass] 32.3 pg High 27.0-32.0 [facility] Comment on above: Performed By: #### L 500.2500, L100.0100 ####[facility] [address] [place], [address] MCHC (RBC) [Mass/Vol] 32.2 g/dL Normal 32-36 [facility] Comment on above: Performed By: #### L 500.2500, L100.0100 ####[facility] [address] [place], [address] MCV (RBC) [Entitic vol] 100.3 fL High 80-94 [facility] Comment on above: Performed By: #### L 500.2500, L100.0100 ####[facility] [address] [place], [address] Monocytes/100 WBC (Bld) 8.0 % Normal 0-10 [facility] Comment on above: Performed By: #### L 500.2500, L100.0100 ####[facility] [address] [place], [address] Neutrophils/100 WBC (Bld) 74.1 % High 47-70 [facility] Comment on above: Performed By: #### L 500.2500, L100.0100 ####[facility] [address] [place], [address] Nucleated RBC (Bld) [#/Vol] 0 10*3/uL Normal 0-5 [facility] Comment on above: Performed By: #### L 500.2500, L100.0100 ####[facility] [address] [place], [address] Platelet mean volume (Bld) [Entitic vol] 11.0 fL Normal 6.2-12.0 [facility] Comment on above: Performed By: #### L 500.2500, L100.0100 ####[facility] [address] [place], [address] Platelets (Bld) [#/Vol] 127 10*3/uL Low 150-450 [facility] Comment on above: Performed By: #### L 500.2500, L100.0100 ####[facility] [address] [place], [address] RBC (Bld) [#/Vol] 3.44 10*6/uL Low 4.6-6.2 [facility] Comment on above: Performed By: #### L 500.2500, L100.0100 ####[facility] [address] [place], [address] RDW SD 48.7 fl High 35.1-43.9 [facility] Comment on above: Performed By: #### L 500.2500, L100.0100 ####[facility] [address] [place], [address] WBC (Bld) [#/Vol] 6.7 10*3/uL Normal 4.4-11.0 [facility] Comment on above: Performed By: #### L 500.2500, L100.0100 ####[facility] [address] [place], [address] Culture, Anaerobic Any Sourc isaiah 01-07-2025 CUAN No anaerobic bacteria isolated. Normal [facility] Comment on above: Performed By: #### M 100.3000, M100.4001, M100.2000 ####[facility] [address] [place], [address] Eosinophil percentageOrdered By: Sofia Lopez on 01-07-2025 Eosinophils/100 WBC (Bld) 2.7 % 0-5 [facility] Immature granulocytes/100 WB C Auto (Bld)Ordered By: Sofia Lopez on 01-07-2025 Immature granulocytes/100 WBC (Bld) 4.500 % High 0.0-0.9 [facility] Comment on above: IG% - Immature Granu locytes (promyelocytes, myelocytes and metamyelocytes) > 1% indicates that a LEFT SHIFT is Present. Monocyte percentageOrdered B y: Sofia Lopez on 01-07-2025 Monocytes/100 WBC (Bld) 8.0 % 0-10 [facility] Nucleated red blood cell per centageOrdered By: Sofia Lopze on 01-07-2025 Nucleated RBC/100 WBC (Bld) [Ratio] 0 % 0-5 [facility] Trough vancomycin levelOrder ed By: Mei Mckenzie on 01-07-2025 Vancomycin trough [Mass/Vol] 11.9 ug/mL 5.0-15.0 [facility] Comment on above: Recommended goal tro ugh ranges are generally 10-15 mcg/ml for less severe/complicated infections such as cellulitis or UTI and 15-20 mcg/ml for more severe/complicated infections such as bacteremia/sepsis, osteomyelitis, pneumonia or meningitis. Goal trough ranges should take into account indication, patient-specific factors and organism AUTUMN.VANCOMYCIN STANDARED DRUG THERAPY TROUGH LEVEL: 5.0 - 15.0 mg/L VANCOMYCIN HIGH INTENSITY THERAPY TROUGH LEVEL: 15.0 - 20.0 mg/L High Intensity therapy recommended for serious lifethreatening infections include:- Fewmhbimut-Qjdiexdvioja-Xzfusmdta (Ventilator/Healtcare Associated)-Sepsis PLEASE CONTACT PHARMACY SERVICES (#[id number]) FOR INTERPRETATIONOF RESULTS. Vancomycin, Trough Levelon 0 01-07-2025 VANCO, TROUGH 11.9 ug/mL Normal 5.0-15.0 [facility] Comment on above: Order Comment: Comme nts: Trough to be drawn 30 mins prior to scheduled [id number] Result Comment: Edgardo mmended goal trough ranges are generally 10-15 mcg/mlfor less severe/complicated infections such as cellulitisor UTI and 15-20 mcg/ml for more severe/complicatedinfections such as bacteremia/sepsis, osteomyelitis,pneumonia or meningitis. Goal trough ranges should takeinto account indication, patient-specific factors andorganism AUTUMN.VANCOMYCIN STANDARED DRUG THERAPY TROUGH LEVEL: 5.0 - 15.0 mg/LVANCOMYCIN HIGH INTENSITY THERAPY TROUGH LEVEL: 15.0 - 20.0 mg/LHigh Intensity therapy recommended for serious lifethreatening infections include:- Ntcwvwjvtu-Ypahmdkvggce-Rzdyodkje (Ventilator/Healtcare Associated)-SepsisPLEASE CONTACT PHARMACY SERVICES (#[id number]) FOR INTERPRETATIONOF RESULTS. Performed By: #### L 501.8820 ####[facility] [address] [place], [address] Basic Metabolic Profile (BMP )on 01-06-2025 BUN/CRE 27.8 RATIO High 10-20 [facility] Comment on above: Performed By: #### L 500.2500, L100.0100 ####[facility] [address] [place], [address] Calcium [Mass/Vol] 9.2 mg/dL Normal 7.6-11.0 [facility] Comment on above: Performed By: #### L 500.2500, L100.0100 ####[facility] [address] [place], [address] Chloride [Moles/Vol] 111 mmol/L High 98-108 [facility] Comment on above: Performed By: #### L 500.2500, L100.0100 ####[facility] [address] [place], [address] CO2 [Moles/Vol] 25.7 mmol/L Normal 21.0-32.0 [facility] Comment on above: Performed By: #### L 500.2500, L100.0100 ####[facility] [address] [place], [address] Creatinine [Mass/Vol] 1.18 mg/dL Normal 0.70-1.20 [facility] Comment on above: Performed By: #### L 500.2500, L100.0100 ####[facility] [address] [place], [address] ECRCL 51.72 ml/min Normal 50-250 [facility] Comment on above: Performed By: #### L 500.2500, L100.0100 ####[facility] [address] [place], [address] GAP 9 Normal 5-15 [facility] Comment on above: Performed By: #### L 500.2500, L100.0100 ####[facility] [address] [place], [address] GFR/1.73 sq M.predicted among non-blacks MDRD (S/P/Bld) [Vol rate/Area] 59 mL/min/{1.73_m2} Low >[address] [facility] Comment on above: Result Comment: mL/m in/1.73m2 CKD-EPI Creatinine Equation (2020) Performed By: #### L 500.2500, L100.0100 ####[facility] [address] [place], [address] Glucose [Mass/Vol] 127 mg/dL High 70-99 [facility] Comment on above: Performed By: #### L 500.2500, L100.0100 ####[facility] [address] [place], [address] Potassium [Moles/Vol] 3.9 mmol/L Normal 3.3-5.1 [facility] Comment on above: Performed By: #### L 500.2500, L100.0100 ####[facility] [address] [place], [address] Sodium [Moles/Vol] 146 mmol/L High 133-145 [facility] Comment on above: Performed By: #### L 500.2500, L100.0100 ####[facility] [address] [place], [address] Urea nitrogen [Mass/Vol] 33 mg/dL High 4-19 [facility] Comment on above: Performed By: #### L 500.2500, L100.0100 ####[facility] [address] [place], [address] Bedside Glucoseon 01-06-2025 FINGERSTICK GLU 154 mg/dL High 74-106 [facility] Comment on above: Result Comment: [facility] GEMENT OF PATIENT CARE PER NURSING PROTOCOL Performed By: #### L 501.080 ####[facility] [address] [place], [address] FINGERSTICK GLU 114 mg/dL High 74-106 [facility] Comment on above: Result Comment: [facility] GEMENT OF PATIENT CARE PER NURSING PROTOCOL Performed By: #### L 501.080 ####[facility] [address] [place], [address] FINGERSTICK GLU 113 mg/dL High 74-106 [facility] Comment on above: Result Comment: [facility] GEMENT OF PATIENT CARE PER NURSING PROTOCOL Performed By: #### L 501.080 ####[facility] [address] [place], [address] Blood cultureOrdered By: Kenrick Arias on 01-06-2025 Bacteria identified Cx Nom (Bld) No growth in 5 days. [facility] CBC W/Diff, Automatedon 12-21 Absolute Lymph 0.57 X10 3/uL Low 0.83-4.51 [facility] Comment on above: Performed By: #### L 500.2500, L100.0100 ####[facility] [address] [place], [address] Absolute Neut 4.8 X10 3/uL Normal 2.0-7.7 [facility] Comment on above: Performed By: #### L 500.2500, L100.0100 ####[facility] [address] [place], [address] Basophils/100 WBC (Bld) 0.3 % Normal 0-1 [facility] Comment on above: Performed By: #### L 500.2500, L100.0100 ####[facility] [address] [place], [address] Eosinophils/100 WBC (Bld) 1.8 % Normal 0-5 [facility] Comment on above: Performed By: #### L 500.2500, L100.0100 ####[facility] [address] [place], [address] Erythrocyte distribution width (RBC) [Ratio] 13.2 % Normal 11.6-14.6 [facility] Comment on above: Performed By: #### L 500.2500, L100.0100 ####[facility] [address] [place], [address] Hematocrit (Bld) [Volume fraction] 35.8 % Low 40-54 [facility] Comment on above: Performed By: #### L 500.2500, L100.0100 ####[facility] [address] [place], [address] Hemoglobin (Bld) [Mass/Vol] 11.5 g/dL Low 13.0-16.5 [facility] Comment on above: Performed By: #### L 500.2500, L100.0100 ####[facility] [address] [place], [address] IG% 2.100 High 0.0-0.9 [facility] Comment on above: Result Comment: IG% - Immature Granulocytes (promyelocytes, myelocytes andmetamyelocytes) > 1% indicates that a LEFT SHIFT is Present. Performed By: #### L 500.2500, L100.0100 ####[facility] [address] [place], [address] Lymphocytes/100 WBC (Bld) 9.2 % Low 19-41 [facility] Comment on above: Performed By: #### L 500.2500, L100.0100 ####[facility] [address] [place], [address] MCH (RBC) [Entitic mass] 32.1 pg High 27.0-32.0 [facility] Comment on above: Performed By: #### L 500.2500, L100.0100 ####[facility] [address] [place], [address] MCHC (RBC) [Mass/Vol] 32.1 g/dL Normal 32-36 [facility] Comment on above: Performed By: #### L 500.2500, L100.0100 ####[facility] [address] [place], [address] MCV (RBC) [Entitic vol] 100.0 fL High 80-94 [facility] Comment on above: Performed By: #### L 500.2500, L100.0100 ####[facility] [address] [place], [address] Monocytes/100 WBC (Bld) 8.4 % Normal 0-10 [facility] Comment on above: Performed By: #### L 500.2500, L100.0100 ####[facility] [address] [place], [address] Neutrophils/100 WBC (Bld) 78.2 % High 47-70 [facility] Comment on above: Performed By: #### L 500.2500, L100.0100 ####[facility] [address] [place], [address] Nucleated RBC (Bld) [#/Vol] 0 10*3/uL Normal 0-5 [facility] Comment on above: Performed By: #### L 500.2500, L100.0100 ####[facility] [address] [place], [address] Platelet mean volume (Bld) [Entitic vol] 11.3 fL Normal 6.2-12.0 [facility] Comment on above: Performed By: #### L 500.2500, L100.0100 ####[facility] [address] [place], [address] Platelets (Bld) [#/Vol] 106 10*3/uL Low 150-450 [facility] Comment on above: Performed By: #### L 500.2500, L100.0100 ####[facility] [address] [place], [address] RBC (Bld) [#/Vol] 3.58 10*6/uL Low 4.6-6.2 [facility] Comment on above: Performed By: #### L 500.2500, L100.0100 ####[facility] [address] [place], [address] RDW SD 48.8 fl High 35.1-43.9 [facility] Comment on above: Performed By: #### L 500.2500, L100.0100 ####[facility] [address] [place], [address] WBC (Bld) [#/Vol] 6.2 10*3/uL Normal 4.4-11.0 [facility] Comment on above: Performed By: #### L 500.2500, L100.0100 ####[facility] [address] [place], [address] Culture, Blood (WB)on 2024 CUB Normal [facility] Comment on above: Performed By: #### M 200.1000 ####[facility] [address] [place], [address] CUB Normal [facility] Comment on above: Performed By: #### M 200.1000 ####[facility] [address] [place], [address] Gram Stainon 01-06-2025 GS UNK UNK COLLECTED IN OR-LEFT FOOT 5TH TOE Gram Stain No organisms seen No cells seen Normal [facility] Comment on above: Performed By: #### M 100.4001, M100.3000, M100.1999 ####[facility] [address] [place], [address] GS UNK UNK COLLECTED IN OR-L FOOT BONE CORTEX 5TH METATARSAL Gram Stain Rare Gram positive cocci No cells seen Normal [facility] Comment on above: Performed By: #### M 100.1999, M100.3000, M100.4001 ####[facility] [address] [place], [address] GS UNK UNK COLLECTED IN OR-L FOOT 5TH METATARSAL CLEAN MARGIN Gram Stain No organisms seen No cells seen Normal [facility] Comment on above: Performed By: #### M 100.3000, M100.4001, M100.2000 ####[facility] [address] [place], [address] GS UNK UNK COLLECTED IN OR-LEFT FOOT POSTLAVAGE CULTURES Gram Stain 4+ Red Blood Cells No White Blood Cells No organisms seen Normal [facility] Comment on above: Performed By: #### M 100.2000, M100.4001, M100.3000 ####[facility] [address] [place], [address] GS UNK UNK COLLECTED IN OR-LEFT FOOT PRELAVAGE CULTURES Gram Stain 4+ Red Blood Cells No White Blood Cells No organisms seen Normal [facility] Comment on above: Performed By: #### M 100.2000, M100.4001, M100.3000 ####[facility] [address] [place], [address] Anaerobic cultureOrdered By: Jaden Forman on 01-05-2025 Bacteria identified Anaer cx Nom (Unsp spec) No growth in 5 days. [facility] Bacteria identified Anaer cx Nom (Unsp spec) Cutibacterium acnes Abnormal [facility] Bacteria identified Anaer cx Nom (Unsp spec) No anaerobic bacteria isolated. [facility] Basic Metabolic Profile (BMP )on 01-05-2025 BUN/CRE 32.8 RATIO High 10-20 [facility] Comment on above: Performed By: #### L 100.0100, L500.2500 ####[facility] [address] [place], [address] Calcium [Mass/Vol] 9.5 mg/dL Normal 7.6-11.0 [facility] Comment on above: Performed By: #### L 100.0100, L500.2500 ####[facility] [address] [place], [address] Chloride [Moles/Vol] 108 mmol/L Normal 98-108 [facility] Comment on above: Performed By: #### L 100.0100, L500.2500 ####[facility] [address] [place], [address] CO2 [Moles/Vol] 25.0 mmol/L Normal 21.0-32.0 [facility] Comment on above: Performed By: #### L 100.0100, L500.2500 ####[facility] [address] [place], [address] Creatinine [Mass/Vol] 1.30 mg/dL High 0.70-1.20 [facility] Comment on above: Performed By: #### L 100.0100, L500.2500 ####[facility] [address] [place], [address] ECRCL 46.94 ml/min Low 50-250 [facility] Comment on above: Performed By: #### L 100.0100, L500.2500 ####[facility] [address] [place], [address] GAP 11 Normal 5-15 [facility] Comment on above: Performed By: #### L 100.0100, L500.2500 ####[facility] [address] [place], [address] GFR/1.73 sq M.predicted among non-blacks MDRD (S/P/Bld) [Vol rate/Area] 53 mL/min/{1.73_m2} Low >[address] [facility] Comment on above: Result Comment: mL/m in/1.73m2 CKD-EPI Creatinine Equation (2020) Performed By: #### L 100.0100, L500.2500 ####[facility] [address] [place], [address] Glucose [Mass/Vol] 148 mg/dL High 70-99 [facility] Comment on above: Performed By: #### L 100.0100, L500.2500 ####[facility] [address] [place], [address] Potassium [Moles/Vol] 3.6 mmol/L Normal 3.3-5.1 [facility] Comment on above: Performed By: #### L 100.0100, L500.2500 ####[facility] [address] [place], [address] Sodium [Moles/Vol] 144 mmol/L Normal 133-145 [facility] Comment on above: Performed By: #### L 100.0100, L500.2500 ####[facility] [address] [place], [address] Urea nitrogen [Mass/Vol] 43 mg/dL High 4-19 [facility] Comment on above: Performed By: #### L 100.0100, L500.2500 ####[facility] [address] [place], [address] Bedside Glucoseon 01-05-2025 FINGERSTICK GLU 130 mg/dL High 74-106 [facility] Comment on above: Result Comment: [facility] GEMENT OF PATIENT CARE PER NURSING PROTOCOL Performed By: #### L 501.080 ####[facility] [address] [place], [address] FINGERSTICK GLU 137 mg/dL High 74-106 [facility] Comment on above: Result Comment: [facility] GEMENT OF PATIENT CARE PER NURSING PROTOCOL Performed By: #### L 501.080 ####[facility] [address] [place], [address] FINGERSTICK GLU 130 mg/dL High 74-106 [facility] Comment on above: Result Comment: [facility] GEMENT OF PATIENT CARE PER NURSING PROTOCOL Performed By: #### L 501.080 ####[facility] [address] [place], [address] Blood cultureOrdered By: Kenrick Arias on 01-05-2025 Bacteria identified Cx Nom (Bld) No growth in 5 days. [facility] CBC W/Diff, Automatedon 12-21 Absolute Lymph 0.40 X10 3/uL Low 0.83-4.51 [facility] Comment on above: Performed By: #### L 100.0100, L500.2500 ####[facility] [address] [place], [address] Absolute Neut 4.0 X10 3/uL Normal 2.0-7.7 [facility] Comment on above: Performed By: #### L 100.0100, L500.2500 ####[facility] [address] [place], [address] Basophils/100 WBC (Bld) 0.2 % Normal 0-1 [facility] Comment on above: Performed By: #### L 100.0100, L500.2500 ####[facility] [address] [place], [address] Eosinophils/100 WBC (Bld) 0.2 % Normal 0-5 [facility] Comment on above: Performed By: #### L 100.0100, L500.2500 ####[facility] [address] [place], [address] Erythrocyte distribution width (RBC) [Ratio] 13.1 % Normal 11.6-14.6 [facility] Comment on above: Performed By: #### L 100.0100, L500.2500 ####[facility] [address] [place], [address] Hematocrit (Bld) [Volume fraction] 36.8 % Low 40-54 [facility] Comment on above: Performed By: #### L 100.0100, L500.2500 ####[facility] [address] [place], [address] Hemoglobin (Bld) [Mass/Vol] 12.0 g/dL Low 13.0-16.5 [facility] Comment on above: Performed By: #### L 100.0100, L500.2500 ####[facility] [address] [place], [address] IG% 1.000 High 0.0-0.9 [facility] Comment on above: Result Comment: IG% - Immature Granulocytes (promyelocytes, myelocytes andmetamyelocytes) > 1% indicates that a LEFT SHIFT is Present. Performed By: #### L 100.0100, L500.2500 ####[facility] [address] [place], [address] Lymphocytes/100 WBC (Bld) 8.0 % Low 19-41 [facility] Comment on above: Performed By: #### L 100.0100, L500.2500 ####[facility] [address] [place], [address] MCH (RBC) [Entitic mass] 32.2 pg High 27.0-32.0 [facility] Comment on above: Performed By: #### L 100.0100, L500.2500 ####[facility] [address] [place], [address] MCHC (RBC) [Mass/Vol] 32.6 g/dL Normal 32-36 [facility] Comment on above: Performed By: #### L 100.0100, L500.2500 ####[facility] [address] [place], [address] MCV (RBC) [Entitic vol] 98.7 fL High 80-94 [facility] Comment on above: Performed By: #### L 100.0100, L500.2500 ####[facility] [address] [place], [address] Monocytes/100 WBC (Bld) 10.4 % High 0-10 [facility] Comment on above: Performed By: #### L 100.0100, L500.2500 ####[facility] [address] [place], [address] Neutrophils/100 WBC (Bld) 80.2 % High 47-70 [facility] Comment on above: Performed By: #### L 100.0100, L500.2500 ####[facility] [address] [place], [address] Nucleated RBC (Bld) [#/Vol] 0 10*3/uL Normal 0-5 [facility] Comment on above: Performed By: #### L 100.0100, L500.2500 ####[facility] [address] [place], [address] Platelet mean volume (Bld) [Entitic vol] 11.8 fL Normal 6.2-12.0 [facility] Comment on above: Performed By: #### L 100.0100, L500.2500 ####[facility] [address] [place], [address] Platelets (Bld) [#/Vol] 83 10*3/uL Low 150-450 [facility] Comment on above: Performed By: #### L 100.0100, L500.2500 ####[facility] [address] [place], [address] RBC (Bld) [#/Vol] 3.73 10*6/uL Low 4.6-6.2 [facility] Comment on above: Performed By: #### L 100.0100, L500.2500 ####[facility] [address] [place], [address] RDW SD 47.4 fl High 35.1-43.9 [facility] Comment on above: Performed By: #### L 100.0100, L500.2500 ####[facility] [address] [place], [address] WBC (Bld) [#/Vol] 5.0 10*3/uL Normal 4.4-11.0 [facility] Comment on above: Performed By: #### L 100.0100, L500.2500 ####[facility] [address] [place], [address] Decalcification bone/plaqueo n 01-05-2025 Decalcification bone/plaque Normal [facility] Comment on above: Performed By: #### P DEC ####[facility] [address] [place], [address] Foot 2 Viewson 01-05-2025 Foot 2 Views Normal [facility] Gram stainOrdered By: Carolin Forman on 01-05-2025 Microscopic observation Gram stain Nom (Unsp spec) [facility] MR/POSTOP.ANEon 01-05-2025 MR/POSTOP.ANE Normal [facility] MR/ECVVFNIN3fz 01-05-2025 MR/POSTOPAN2 Normal [facility] Operative Reporton Operative Report Normal [facility] Routine wound cultureOrdered By: Jaden Forman on 01-05-2025 Microbial culture, routine Staphylococcus epidermidis Abnormal [facility] Vancomycin, Trough Levelon 0 01-05-2025 VANCO, TROUGH 9.8 ug/mL Normal 5.0-15.0 [facility] Comment on above: Order Comment: Comme nts: Trough to be drawn 30 mins prior to scheduled [id number] Result Comment: Edgardo mmended goal trough ranges are generally 10-15 mcg/mlfor less severe/complicated infections such as cellulitisor UTI and 15-20 mcg/ml for more severe/complicatedinfections such as bacteremia/sepsis, osteomyelitis,pneumonia or meningitis. Goal trough ranges should takeinto account indication, patient-specific factors andorganism AUTUMN.VANCOMYCIN STANDARED DRUG THERAPY TROUGH LEVEL: 5.0 - 15.0 mg/LVANCOMYCIN HIGH INTENSITY THERAPY TROUGH LEVEL: 15.0 - 20.0 mg/LHigh Intensity therapy recommended for serious lifethreatening infections include:- Itrxkxixgn-Bjkemijpjksl-Lrdaccqak (Ventilator/Healtcare Associated)-SepsisPLEASE CONTACT PHARMACY SERVICES (#5855) FOR INTERPRETATIONOF RESULTS. Performed By: #### L 501.8820 ####[facility] [address] [place], [address] Wound Cultureon 01-05-2025 WC Normal [facility] Comment on above: Performed By: #### M 100.3000, M100.4001, M100.2000 ####[facility] [address] [place], [address] Basic Metabolic Profile (BMP )on 01-04-2025 BUN/CRE 30.4 RATIO High - [facility] Comment on above: Performed By: #### L 500.2500, L100.0100 ####[facility] [address] [place], [address] Calcium [Mass/Vol] 9.2 mg/dL Normal 7.6-11.0 [facility] Comment on above: Performed By: #### L 500.2500, L100.0100 ####[facility] [address] [place], [address] Chloride [Moles/Vol] 108 mmol/L Normal 98-108 [facility] Comment on above: Performed By: #### L 500.2500, L100.0100 ####[facility] [address] [place], [address] CO2 [Moles/Vol] 22.4 mmol/L Normal 21.0-32.0 [facility] Comment on above: Performed By: #### L 500.2500, L100.0100 ####[facility] [address] [place], [address] Creatinine [Mass/Vol] 1.51 mg/dL High 0.70-1.20 [facility] Comment on above: Performed By: #### L 500.2500, L100.0100 ####[facility] [address] [place], [address] ECRCL 40.42 ml/min Low 50-250 [facility] Comment on above: Performed By: #### L 500.2500, L100.0100 ####[facility] [address] [place], [address] GAP 10 Normal 5-15 [facility] Comment on above: Performed By: #### L 500.2500, L100.0100 ####[facility] [address] [place], [address] GFR/1.73 sq M.predicted among non-blacks MDRD (S/P/Bld) [Vol rate/Area] 44 mL/min/{1.73_m2} Low >[address] [facility] Comment on above: Result Comment: mL/m in/1.73m2 CKD-EPI Creatinine Equation (2020) Performed By: #### L 500.2500, L100.0100 ####[facility] [address] [place], [address] Glucose [Mass/Vol] 128 mg/dL High 70-99 [facility] Comment on above: Performed By: #### L 500.2500, L100.0100 ####[facility] [address] [place], [address] Potassium [Moles/Vol] 4.1 mmol/L Normal 3.3-5.1 [facility] Comment on above: Performed By: #### L 500.2500, L100.0100 ####[facility] [address] [place], [address] Sodium [Moles/Vol] 140 mmol/L Normal 133-145 [facility] Comment on above: Performed By: #### L 500.2500, L100.0100 ####[facility] [address] [place], [address] Urea nitrogen [Mass/Vol] 46 mg/dL High 4-19 [facility] Comment on above: Performed By: #### L 500.2500, L100.0100 ####[facility] [address] [place], [address] Bedside Glucoseon 01-04-2025 FINGERSTICK GLU 156 mg/dL High 74-106 [facility] Comment on above: Result Comment: [facility] GEMENT OF PATIENT CARE PER NURSING PROTOCOL Performed By: #### L 501.080 ####[facility] [address] [place], [address] FINGERSTICK GLU 113 mg/dL High 74-106 [facility] Comment on above: Result Comment: [facility] GEMENT OF PATIENT CARE PER NURSING PROTOCOL Performed By: #### L 501.080 ####[facility] [address] [place], [address] FINGERSTICK GLU 126 mg/dL High 74-106 [facility] Comment on above: Result Comment: [facility] GEMENT OF PATIENT CARE PER NURSING PROTOCOL Performed By: #### L 501.080 ####[facility] [address] [place], [place], [id number] Blood manual differential co mment interpretation (narrative result)Ordered By: Sofia Lopez on 01-04-2025 Manual differential comment Derek (Bld) [Interp] SCANNED [facility] CBC W/Diff, Automatedon 12-21 SMEAR COMMENT SCANNED Normal [facility] Comment on above: Performed By: #### L 500.2500, L100.0100 ####[facility] [address] [place], [place], [id number] Culture, Blood (WB)on 2024 [facility] Comment on above: Performed By: #### M 200.1000 ####[facility] [address] [place], [place], [address] [facility] Comment on above: Performed By: #### L 100.0100, M100.636, L503.6005, L300.3900, L500.4050, M200.1000 ####[facility] [address] [place], [place], [address] Vancomycin, Trough Levelon 0 01-04-2025 VANCO, TROUGH 9.0 ug/mL Normal 5.0-15.0 [facility] Comment on above: Order Comment: Comme nts: Trough to be drawn 30 mins prior to scheduled [id number] Result Comment: Edgardo mmended goal trough ranges are generally 10-15 mcg/mlfor less severe/complicated infections such as cellulitisor UTI and 15-20 mcg/ml for more severe/complicatedinfections such as bacteremia/sepsis, osteomyelitis,pneumonia or meningitis. Goal trough ranges should takeinto account indication, patient-specific factors andorganism AUTUMN.VANCOMYCIN STANDARED DRUG THERAPY TROUGH LEVEL: 5.0 - 15.0 mg/LVANCOMYCIN HIGH INTENSITY THERAPY TROUGH LEVEL: 15.0 - 20.0 mg/LHigh Intensity therapy recommended for serious lifethreatening infections include:- Urwldafuvi-Xmmpmbeytsil-Vsvnaaxzf (Ventilator/Healtcare Associated)-SepsisPLEASE CONTACT PHARMACY SERVICES (#7147) FOR INTERPRETATIONOF RESULTS. Performed By: #### L 501.8820 ####[facility] [address] [place], [address] Wound Cultureon 01-04-2025 Normal [facility] Comment on above: Performed By: #### M 100.2000, M100.3000, M8200.1075 ####[facility] [address] [place], [address] Anaerobic cultureOrdered By: Jaden Forman on 01-03-2025 Bacteria identified Anaer cx Nom (Unsp spec) No anaerobic bacteria isolated. [facility] Basic Metabolic Profile (BMP )on 01-03-2025 BUN/CRE 22.5 RATIO High 10-20 [facility] Comment on above: Performed By: #### L 100.0100, L500.2500 ####[facility] [address] [place], [address] Calcium [Mass/Vol] 9.1 mg/dL Normal 7.6-11.0 [facility] Comment on above: Performed By: #### L 100.0100, L500.2500 ####[facility] [address] [place], [address] Chloride [Moles/Vol] 105 mmol/L Normal 98-108 [facility] Comment on above: Performed By: #### L 100.0100, L500.2500 ####[facility] [address] [place], [address] CO2 [Moles/Vol] 18.8 mmol/L Low 21.0-32.0 [facility] Comment on above: Performed By: #### L 100.0100, L500.2500 ####[facility] [address] [place], [address] Creatinine [Mass/Vol] 1.72 mg/dL High 0.70-1.20 [facility] Comment on above: Performed By: #### L 100.0100, L500.2500 ####[facility] [address] [place], [address] ECRCL 35.48 ml/min Low 50-250 [facility] Comment on above: Performed By: #### L 100.0100, L500.2500 ####[facility] [address] [place], [address] GAP 12 Normal 5-15 [facility] Comment on above: Performed By: #### L 100.0100, L500.2500 ####[facility] [address] [place], [address] GFR/1.73 sq M.predicted among non-blacks MDRD (S/P/Bld) [Vol rate/Area] 38 mL/min/{1.73_m2} Low >[address] [facility] Comment on above: Result Comment: mL/m in/1.73m2 CKD-EPI Creatinine Equation (2020) Performed By: #### L 100.0100, L500.2500 ####[facility] [address] [place], [address] Glucose [Mass/Vol] 184 mg/dL High 70-99 [facility] Comment on above: Performed By: #### L 100.0100, L500.2500 ####[facility] [address] [place], [address] Potassium [Moles/Vol] 4.1 mmol/L Normal 3.3-5.1 [facility] Comment on above: Performed By: #### L 100.0100, L500.2500 ####[facility] [address] [place], [address] Sodium [Moles/Vol] 136 mmol/L Normal 133-145 [facility] Comment on above: Performed By: #### L 100.0100, L500.2500 ####[facility] [address] [place], [address] Urea nitrogen [Mass/Vol] 39 mg/dL High 11-08 [facility] Comment on above: Performed By: #### L 100.0100, L500.2500 ####[facility] [address] [place], [address] Bedside Glucoseon 01-03-2025 FINGERSTICK GLU 127 mg/dL High 74-106 [facility] Comment on above: Result Comment: [facility] GEMENT OF PATIENT CARE PER NURSING PROTOCOL Performed By: #### L 501.080 ####[facility] [address] [place], [address] FINGERSTICK GLU 152 mg/dL High 74-106 [facility] Comment on above: Result Comment: [facility] GEMENT OF PATIENT CARE PER NURSING PROTOCOL Performed By: #### L 501.080 ####[facility] [address] [place], [address] FINGERSTICK GLU 170 mg/dL High 74-106 [facility] Comment on above: Result Comment: [facility] GEMENT OF PATIENT CARE PER NURSING PROTOCOL Performed By: #### L 501.080 ####[facility] [address] [place], [address] FINGERSTICK GLU 136 mg/dL High 74-106 [facility] Comment on above: Result Comment: [facility] GEMENT OF PATIENT CARE PER NURSING PROTOCOL Performed By: #### L 501.080 ####[facility] [address] [place], [address] Blood cultureOrdered By: Ariana Mckenzie on 01-03-2025 Bacteria identified Cx Nom (Bld) Staphylococcus aureus Abnormal [facility] CBC W/Diff, Automatedon - PLT EST SLT DEC Normal ADEQ [facility] Comment on above: Performed By: #### L 100.0100, L500.2500 ####[facility] [address] [place], [address] Gram Stainon 01-03-2025 GS Positive Normal [facility] Comment on above: Performed By: #### M 100.3000, M100.4001, M100.2000 ####[facility] [address] [place], [address] Gram stainOrdered By: Carolin Forman on 01-03-2025 Microscopic observation Gram stain Nom (Unsp spec) [facility] Routine wound cultureOrdered By: Jaden Forman on 01-03-2025 Microbial culture, routine Meth. resistant Staph. aureus Abnormal [facility] Urine Cultureon 01-03-2025 URC Culture exhibits no growth. Normal [facility] Comment on above: Performed By: #### L 400.0001, M100.2200 ####[facility] [address] [place], [address] Vancomycin, Trough Levelon 0 01-03-2025 VANCO, TROUGH 6.9 ug/mL Normal 5.0-15.0 [facility] Comment on above: Order Comment: Comme nts: Trough to be drawn 30 mins prior to scheduled [id number] Result Comment: Edgardo mmended goal trough ranges are generally 10-15 mcg/mlfor less severe/complicated infections such as cellulitisor UTI and 15-20 mcg/ml for more severe/complicatedinfections such as bacteremia/sepsis, osteomyelitis,pneumonia or meningitis. Goal trough ranges should takeinto account indication, patient-specific factors andorganism AUTUMN.VANCOMYCIN STANDARED DRUG THERAPY TROUGH LEVEL: 5.0 - 15.0 mg/LVANCOMYCIN HIGH INTENSITY THERAPY TROUGH LEVEL: 15.0 - 20.0 mg/LHigh Intensity therapy recommended for serious lifethreatening infections include:- Lpcfsuzedv-Rbfgerpewfux-Iuuzgvbne (Ventilator/Healtcare Associated)-SepsisPLEASE CONTACT PHARMACY SERVICES (#0893) FOR INTERPRETATIONOF RESULTS. Performed By: #### L 501.8820 ####[facility] [address] [place], [address] Absolute lymphocyte countOrd ered By: Mei Mckenzie on 01-02-2025 Lymphocytes Auto (Unsp spec) [#/Vol] 0.19 10*3/uL Low 0.83-4.51 [facility] Absolute neutrophil countOrd ered By: Mei Mckenzie on 01-02-2025 Neutrophils (Bld) [#/Vol] 11.6 10*3/uL High 2.0-7.7 [facility] Anion gap in Serum or Plasma Ordered By: Mei Mckenzie on 01-02-2025 Anion gap [Moles/Vol] 20 mmol/L High 5-15 [facility] Ankle Brachial Indexon 01-02 Ankle Brachial Index Normal [facility] Automated lymphocyte count a s percentage of total leukocytesOrdered By: Mei Mckenzie on 01-02-2025 Lymphocytes/100 WBC Auto (Unsp spec) 1.4 % Low 19-41 [facility] BC GPC IDon 01-02-2025 GPC ID Normal [facility] Comment on above: Performed By: #### L 100.0100, M100.636, L503.6005, L300.3900, L500.4050, M200.1000 ####[facility] [address] [place], [place], [id number] BUN/creatinine ratioOrdered By: Mei Mckenzie on 01-02-2025 Urea nitrogen/Creatinine [Mass ratio] 20.9 mg/mg High 10-20 [facility] Basophil percentageOrdered B y: Mei Mckenzie on 01-02-2025 Basophils/100 WBC (Bld) 0.2 % 0-1 [facility] Bedside Glucoseon 01-02-2025 FINGERSTICK GLU 156 mg/dL High 74-106 [facility] Comment on above: Result Comment: [facility] GEMENT OF PATIENT CARE PER NURSING PROTOCOL Performed By: #### L 501.080 ####[facility] [address] [place], [place], [address] FINGERSTICK GLU 146 mg/dL High 74-106 [facility] Comment on above: Result Comment: [facility] GEMENT OF PATIENT CARE PER NURSING PROTOCOL Performed By: #### L 501.080 ####[facility] [address] [place], [address] FINGERSTICK GLU 130 mg/dL High 74-106 [facility] Comment on above: Result Comment: [facility] GEMENT OF PATIENT CARE PER NURSING PROTOCOL Performed By: #### L 501.080 ####[facility] [address] [place], [address] FINGERSTICK GLU 129 mg/dL High 74-106 [facility] Comment on above: Result Comment: [facility] GEMENT OF PATIENT CARE PER NURSING PROTOCOL Performed By: #### L 501.080 ####[facility] [address] [place], [address] Bilirubin, totalOrdered By: Mei Mckenzie on 01-02-2025 Bilirubin [Mass/Vol] 1.06 mg/dL 0.00-1.30 [facility] Blood cultureOrdered By: Kenrick Arias on 01-02-2025 Bacteria identified Cx Nom (Bld) Staphylococcus aureus Abnormal [facility] Blood manual differential co mment interpretation (narrative result)Ordered By: Mei Mckenzie on 01-02-2025 Manual differential comment Derek (Bld) [Interp] SCANNED [facility] Comment on above: LYMPHOPENIA PRESENTL EFT SHIFT: BANDS PRESENT 1+ CBC W/Diff, Automatedon 12-21 SMEAR COMMENT SCANNED Normal [facility] Comment on above: Result Comment: LYMP HOPENIA PRESENTLEFT SHIFT: BANDS PRESENT 1+ Performed By: #### L 501.9520, L501.2300, L501.9985, L501.5200, L500.4050, L100.0100 ####[facility] [address] [place], [address] Carbon dioxide, total [Moles /volume] in Central venous bloodOrdered By: Mei Mckenzie on 01-02-2025 CO2 [Moles/Vol] 13.4 mmol/L Low 21.0-32.0 [facility] Chloride assayOrdered By: Lillian Mckenzie on 01-02-2025 Chloride [Moles/Vol] 102 mmol/L 98-108 [facility] Comprehensive Metabolic Prof ilon 01-02-2025 Albumin [Mass/Vol] 3.4 g/dL Normal 3.4-4.8 [facility] Comment on above: Performed By: #### L 501.9520, L501.2300, L501.9985, L501.5200, L500.4050, L100.0100 ####[facility] [address] [place], [address] Albumin/Globulin [Mass ratio] 1.0 {ratio} Normal 0.9-2.4 [facility] Comment on above: Performed By: #### L 501.9520, L501.2300, L501.9985, L501.5200, L500.4050, L100.0100 ####[facility] [address] [place], [address] ALK PHOS 177 U/L High 40-129 [facility] Comment on above: Performed By: #### L 501.9520, L501.2300, L501.9985, L501.5200, L500.4050, L100.0100 ####[facility] [address] [place], [address] ALT [Catalytic activity/Vol] 51 U/L High <=46 [facility] Comment on above: Performed By: #### L 501.9520, L501.2300, L501.9985, L501.5200, L500.4050, L100.0100 ####[facility] [address] [place], [address] AST [Catalytic activity/Vol] 114 U/L High <=37 [facility] Comment on above: Result Comment: Hemo lysis present, Results??could be affected.?? Performed By: #### L 501.9520, L501.2300, L501.9985, L501.5200, L500.4050, L100.0100 ####[facility] [address] [place], [address] Bilirubin [Mass/Vol] 1.06 mg/dL Normal 0.00-1.30 [facility] Comment on above: Performed By: #### L 501.9520, L501.2300, L501.9985, L501.5200, L500.4050, L100.0100 ####[facility] [address] [place], [address] BUN/CRE 20.9 RATIO High 10-20 [facility] Comment on above: Performed By: #### L 501.9520, L501.2300, L501.9985, L501.5200, L500.4050, L100.0100 ####[facility] [address] [place], [address] Calcium [Mass/Vol] 9.5 mg/dL Normal 7.6-11.0 [facility] Comment on above: Performed By: #### L 501.9520, L501.2300, L501.9985, L501.5200, L500.4050, L100.0100 ####[facility] [address] [place], [address] Chloride [Moles/Vol] 102 mmol/L Normal 98-108 [facility] Comment on above: Performed By: #### L 501.9520, L501.2300, L501.9985, L501.5200, L500.4050, L100.0100 ####[facility] [address] [place], [address] CO2 [Moles/Vol] 13.4 mmol/L Low 21.0-32.0 [facility] Comment on above: Performed By: #### L 501.9520, L501.2300, L501.9985, L501.5200, L500.4050, L100.0100 ####[facility] [address] [place], [address] Creatinine [Mass/Vol] 1.60 mg/dL High 0.70-1.20 [facility] Comment on above: Performed By: #### L 501.9520, L501.2300, L501.9985, L501.5200, L500.4050, L100.0100 ####[facility] [address] [place], [address] ECRCL 38.14 ml/min Low 50-250 [facility] Comment on above: Performed By: #### L 501.9520, L501.2300, L501.9985, L501.5200, L500.4050, L100.0100 ####[facility] [address] [place], [address] GAP 20 High 5-15 [facility] Comment on above: Performed By: #### L 501.9520, L501.2300, L501.9985, L501.5200, L500.4050, L100.0100 ####[facility] [address] [place], [address] GFR/1.73 sq M.predicted among non-blacks MDRD (S/P/Bld) [Vol rate/Area] 41 mL/min/{1.73_m2} Low >[address] [facility] Comment on above: Result Comment: mL/m in/1.73m2 CKD-EPI Creatinine Equation (2020) Performed By: #### L 501.9520, L501.2300, L501.9985, L501.5200, L500.4050, L100.0100 ####[facility] [address] [place], [address] Globulin (S) [Mass/Vol] 3.4 g/dL Normal 2.2-4.2 [facility] Comment on above: Performed By: #### L 501.9520, L501.2300, L501.9985, L501.5200, L500.4050, L100.0100 ####[facility] [address] [place], [address] Glucose [Mass/Vol] 103 mg/dL High 70-99 [facility] Comment on above: Performed By: #### L 501.9520, L501.2300, L501.9985, L501.5200, L500.4050, L100.0100 ####[facility] [address] [place], [address] Potassium [Moles/Vol] 4.6 mmol/L Normal 3.3-5.1 [facility] Comment on above: Result Comment: Hemo lysis present, Results??could be affected.?? Performed By: #### L 501.9520, L501.2300, L501.9985, L501.5200, L500.4050, L100.0100 ####[facility] [address] [place], [address] Sodium [Moles/Vol] 135 mmol/L Normal 133-145 [facility] Comment on above: Performed By: #### L 501.9520, L501.2300, L501.9985, L501.5200, L500.4050, L100.0100 ####[facility] [address] [place], [address] T PROT 6.8 g/dL Normal 5.9-8.4 [facility] Comment on above: Performed By: #### L 501.9520, L501.2300, L501.9985, L501.5200, L500.4050, L100.0100 ####[facility] [address] [place], [address] Urea nitrogen [Mass/Vol] 34 mg/dL High 4-19 [facility] Comment on above: Performed By: #### L 501.9520, L501.2300, L501.9985, L501.5200, L500.4050, L100.0100 ####[facility] [address] [place], [address] Consultation - Infectious Dx on 01-02-2025 Consultation - Infectious Dx Normal [facility] Echo Completeon 01-02-2025 Echo Complete Normal [facility] Echocardiogram study reportO rdered By: aKna [place] on 01-02-2025 Study report [facility] Eosinophil percentageOrdered By: Mei Mckenzie on 01-02-2025 Eosinophils/100 WBC (Bld) 0.0 % 0-5 [facility] Erythrocyte distribution wid th ratioOrdered By: Mei Mckenzie on 01-02-2025 Erythrocyte distribution width (RBC) [Ratio] 13.0 % 11.6-14.6 [facility] Erythrocyte distribution wid th standard deviationOrdered By: Mei Mckenzie on 01-02-2025 Erythrocyte distribution width (RBC) [Ratio] 46.5 fl High 35.1-43.9 [facility] Foot min 3 Viewson Foot min 3 Views Normal [facility] Glomerular filtration rate ( GFR) estimation/1.73 sq m using serum, plasma, or whole bOrdered By: Mei Mckenzie on 01-02-2025 GFR/1.73 sq M.predicted among non-blacks MDRD (S/P/Bld) [Vol rate/Area] 41 mL/min/{1.73_m2} Low >[address] [facility] Comment on above: mL/min/1.73m2 CKD-EP I Creatinine Equation (2020) [facility] deOrdered By: Sofia Lopez on 01-02-2025 Glucose [Mass/Vol] 146 mg/dL High 74-106 [facility] Comment on above: MANAGEMENT OF PATIEN T CARE PER NURSING PROTOCOL Gram Stainon 01-02-2025 GS List Antibiotics Last 48 Hours? vancomyacin;zosyn List Antibiotics to be Started? zosyn Gram Stain 3+ Gram positive cocci 1+ Gram positive rods Normal [facility] Comment on above: Performed By: #### M 100.2000, M100.3000, M8200.1075 ####[facility] [address] [place], [place], [address] Gram stainOrdered By: Leyla Mckenzie on 01-02-2025 Microscopic observation Gram stain Nom (Unsp spec) [facility] Hematocrit Auto (Bld) [Volum e fraction]Ordered By: Mei Mckenzie on 01-02-2025 Hematocrit (Bld) [Volume fraction] 39.0 % Low 40-54 [facility] Hemoglobin A1con 01-02-2025 HbA1c (Bld) [Mass fraction] 6.2 % High <=5.6 [facility] Comment on above: Result Comment: Norm al < 5.7 % Prediabetic 5.7 - 6.4 % Diabetic >or= 6.5 % Please note range changes. Performed By: #### L 501.9520, L501.2300, L501.9985, L501.5200, L500.4050, L100.0100 ####[facility] [address] [place], [address] Hemoglobin A1c percentageOrd ered By: Mei Mckenzie on 01-02-2025 HbA1c (Bld) [Mass fraction] 6.2 % High <5.7 [facility] Comment on above: Normal < 5.7 % Predi abetic 5.7 - 6.4 % Diabetic >or= 6.5 % Please note range changes. Hemoglobin measurementOrdere d By: Mei Mckenzie on 01-02-2025 Hemoglobin (Bld) [Mass/Vol] 13.2 g/dL 13.0-16.5 [facility] Immature granulocytes/100 WB C Auto (Bld)Ordered By: Mei Mckenzie on 01-02-2025 Immature granulocytes/100 WBC (Bld) 0.700 % 0.0-0.9 [facility] Comment on above: IG% - Immature Granu locytes (promyelocytes, myelocytes and metamyelocytes) > 1% indicates that a LEFT SHIFT is Present. Laboratory - Chemistry and C hemistry - challengeOrdered By: Mei Mckenzie on 01-02-2025 AST [Catalytic activity/Vol] 114 U/L High <38 [facility] Comment on above: Hemolysis present, R esults could be affected. M100.019on 01-02-2025 M100.019 Negative Normal [facility] Comment on above: Performed By: #### M 100.019 ####[facility] [address] [place], [address] M8200.1075on 01-02-2025 M8200.1075 Normal [facility] Comment on above: Performed By: #### M 100.2000, M100.3000, M8200.1075 ####[facility] [address] [place], [address] MCV (mean corpuscular volume ) determinationOrdered By: Mei Mckenzie on 01-02-2025 MCV (RBC) [Entitic vol] 97.5 fL High 80-94 [facility] Magnesiumon 01-02-2025 Magnesium [Mass/Vol] 2.2 mg/dL Normal 1.5-2.2 [facility] Comment on above: Performed By: #### L 501.9520, L501.2300, L501.9985, L501.5200, L500.4050, L100.0100 ####[facility] [address] [place], [address] Magnesium measurement (mass/ volume)Ordered By: Mei Mckenzie on 01-02-2025 Magnesium (Unsp spec) [Mass/Vol] 2.2 mg/dL 1.5-2.2 [facility] Mean corpuscular hemoglobin (MCH) determinationOrdered By: Mei Mckenzie on 01-02-2025 MCH (RBC) [Entitic mass] 33.0 pg High 27.0-32.0 [facility] Mean corpuscular hemoglobin concentration (MCHC) determinationOrdered By: Mei Mckenzie on 01-02-2025 MCHC (RBC) [Mass/Vol] 33.8 g/dL 32-36 [facility] Mean platelet volume determi nationOrdered By: Mei Mckenzie on 01-02-2025 Platelet mean volume (Bld) [Entitic vol] 10.0 fL 6.2-12.0 [facility] Monocyte percentageOrdered B y: Mei Mckenzie on 01-02-2025 Monocytes/100 WBC (Bld) 9.4 % 0-10 [facility] Neutrophil percentageOrdered By: Mei Mckenzie on 01-02-2025 Neutrophils/100 WBC (Bld) 88.3 % High 47-70 [facility] No Panel InformationOrdered By: Mei Mckenzie on 01-02-2025 114 U/L High <38 [facility] Nucleated red blood cell per centageOrdered By: Mei Mckenzie on 01-02-2025 Nucleated RBC/100 WBC (Bld) [Ratio] 0 % 0-5 [facility] Phosphoruson 01-02-2025 Phosphate [Mass/Vol] 2.1 mg/dL Low 2.7-4.5 [facility] Comment on above: Performed By: #### L 501.9520, L501.2300, L501.9985, L501.5200, L500.4050, L100.0100 ####[facility] [address] [place], [place], [id number] Platelet countOrdered By: Lillian Mckenzie on 01-02-2025 Platelets (Bld) [#/Vol] 117 10*3/uL Low 150-450 [facility] Potassium measurement (mass/ volume)Ordered By: Mei Mckenzie on 01-02-2025 Potassium (Unsp spec) [Mass/Vol] 4.6 mmol/L 3.3-5.1 [facility] Comment on above: Hemolysis present, R esults could be affected. RBC Auto (Bld) [#/Vol]Ordere d By: Mei Mckenzie on 01-02-2025 RBC (Bld) [#/Vol] 4.00 10*6/uL Low 4.6-6.2 [facility] RESPIRATORY PANEL MOLECULARo n 01-02-2025 RP PANEL Normal [facility] Comment on above: Performed By: #### M 100.638 ####[facility] [address] [place], [address] Respiratory pathogens detect ion panel by molecular detection methodOrdered By: Mei Mckenzie on 01-02-2025 Respiratory pathogens DNA and RNA panel LILY+probe (Resp) [facility] [id number] By: Leyla Mckenzie on 01-02-2025 SARS-CoV-2 (COVID-19) RNA LILY+probe Ql (Unsp spec) [facility] Serum creatinine measurement (mass/volume)Ordered By: Mei Mckenzie on 01-02-2025 Creatinine [Mass/Vol] 1.60 mg/dL High 0.70-1.20 [facility] Serum globulin measurementOr dered By: Mei Mckenzie on 01-02-2025 Globulin (S) [Mass/Vol] 3.4 g/dL 2.2-4.2 [facility] Serum glucose measurement (m ass/volume)Ordered By: Mei Mckenzie on 01-02-2025 Glucose [Mass/Vol] 103 mg/dL High 70-99 [facility] Serum or plasma alanine meraz otransferase (ALT) measurementOrdered By: Mei Mckenzie on 01-02-2025 ALT [Catalytic activity/Vol] 51 U/L High <47 [facility] Serum or plasma albumin ana urement (mass/volume)Ordered By: Mei Mckenzie on 01-02-2025 Albumin [Mass/Vol] 3.4 g/dL 3.4-4.8 [facility] Serum or plasma albumin/glob ulin mass ratioOrdered By: Mei Mckenzie on 01-02-2025 Albumin/Globulin [Mass ratio] 1.0 {ratio} 0.9-2.4 [facility] Serum or plasma alkaline keenan sphatase measurementOrdered By: Mei Mckenzie on 01-02-2025 ALP [Catalytic activity/Vol] 177 U/L High 40-129 [facility] Serum or plasma calcium ana urement (mass/volume)Ordered By: Mei Mckenzie on 01-02-2025 Calcium [Mass/Vol] 9.5 mg/dL 7.6-11.0 [facility] Serum or plasma urea nitroge n measurement (mass/volume)Ordered By: Mei Mckenzie on 01-02-2025 Urea nitrogen [Mass/Vol] 34 mg/dL High 4-19 [facility] Sodium levelOrdered By: Rosa Mckenzie on 01-02-2025 Sodium [Moles/Vol] 135 mmol/L 133-145 [facility] TSH DL <= 0.005 mIU/L QnOrde red By: Mei Mckenzie on 01-02-2025 TSH Qn 1.270 uIU/mL 0.300-4.200 [facility] Thyroid Stim Hormone (TSH)on 01-02-2025 TSH 1.270 uIU/mL Normal 0.300-4.200 [facility] Comment on above: Performed By: #### L 501.9520, L501.2300, L501.9985, L501.5200, L500.4050, L100.0100 ####[facility] [address], [place], [id number] Total proteinOrdered By: Ariana Mckenzie on 01-02-2025 Protein [Mass/Vol] 6.8 g/dL 5.9-8.4 [facility] White blood cell (WBC) count Ordered By: Mei Mckenzie on 01-02-2025 WBC (Bld) [#/Vol] 13.2 10*3/uL High 4.4-11.0 [facility] Absolute lymphocyte countOrd ered By: Booker Rodríguez on 01-01-2025 Lymphocytes Auto (Unsp spec) [#/Vol] 0.18 10*3/uL Low 0.83-4.51 [facility] Absolute neutrophil countOrd ered By: Booker Rodríguez on 01-01-2025 Neutrophils (Bld) [#/Vol] 6.0 10*3/uL 2.0-7.7 [facility] Activated partial thrombopla stin time (aPTT) in platelet poor plasma by coagulation aOrdered By: Booker Rodríguez on 01-01-2025 aPTT Coag (PPP) [Time] 24.3 s 24.1-36.[address] [facility] Ammoniaon 01-01-2025 Ammonia (P) [Moles/Vol] 13.6 umol/L Low 16-60 [facility] Comment on above: Performed By: #### L 503.5510 ####[facility] [address] [place], [place], [id number] Anion gap in Serum or Plasma Ordered By: Booker Rodríguez on 01-01-2025 Anion gap [Moles/Vol] 13 mmol/L 5-15 [facility] Automated lymphocyte count a s percentage of total leukocytesOrdered By: Booker Rodríguez on 01-01-2025 Lymphocytes/100 WBC Auto (Unsp spec) 2.6 % Low 19-41 [facility] BUN/creatinine ratioOrdered By: Booker Rodríguez on 01-01-2025 Urea nitrogen/Creatinine [Mass ratio] 23.1 mg/mg High 10-20 [facility] Basophil percentageOrdered B y: Booker Rodríguez on 01-01-2025 Basophils/100 WBC (Bld) 0.3 % 0-1 [facility] Bedside Glucoseon 01-01-2025 FINGERSTICK GLU 101 mg/dL Normal 74-106 [facility] Comment on above: Result Comment: [facility] ISAACENT OF PATIENT CARE PER NURSING PROTOCOL Performed By: #### L 501.080 ####[facility] [address] [place], [place], [phone] Bilirubin Test strip Ql (U)O rdered By: Booker Rodríguez on 01-01-2025 Bilirubin Ql (U) Negative Negative [facility] Bilirubin, totalOrdered By: Booker Rodríguez on 01-01-2025 Bilirubin [Mass/Vol] 0.76 mg/dL 0.00-1.30 [facility] Blood cultureOrdered By: Helen Rodríguez on 01-01-2025 Bacteria identified Cx Nom (Bld) Staphylococcus aureus Abnormal [facility] Bacteria identified Cx Nom (Bld) Staphylococcus aureus Abnormal [facility] Blood manual differential co mment interpretation (narrative result)Ordered By: Booker Rodríguez on 01-01-2025 Manual differential comment Derek (Bld) [Interp] SCANNED [facility] Brain/Head without Contrasto n 01-01-2025 Brain/Head without Contrast Normal [facility] CBC W/Diff, Automatedon 12-21 PLT EST ADEQUATE Normal ADEQ [facility] Comment on above: Performed By: #### L 100.0100, M100.636, L503.6005, L300.3900, L500.4050, M200.1000 ####[facility] [address] [place], [address] Platelet mean volume (Bld) [Entitic vol] 11.2 fL Normal 6.2-12.0 [facility] Comment on above: Performed By: #### L 100.0100, M100.636, L503.6005, L300.3900, L500.4050, M200.1000 ####[facility] [address] [place], [address] SMEAR COMMENT SCANNED Normal [facility] Comment on above: Performed By: #### L 100.0100, M100.636, L503.6005, L300.3900, L500.4050, M200.1000 ####[facility] [address] [place], [address] PLT TNP Normal 150-450 [facility] Comment on above: Result Comment: Plea se note: For this sample, a platelet estimate isprovided rather than a platelet count due to plateletclumping. Other parameters associated with this sample arenot affected by platelet clumping. If a more accurateplatelet count is required, a redraw of the patient will benecessary. Performed By: #### L 100.0100, M100.636, L503.6005, L300.3900, L500.4050, M200.1000 ####[facility] [address] [place], [address] CRPon 01-01-2025 C-REACTIVE PROT 168.00 mg/L High 0.0-3.0 [facility] Comment on above: Performed By: #### L 101.9900, L501.6710 ####[facility] [address] [place], [address] Carbon dioxide, total [Moles /volume] in Central venous bloodOrdered By: Booker Rodríguez on 01-01-2025 CO2 [Moles/Vol] 20.9 mmol/L Low 21.0-32.0 [facility] Chest PA and Lateralon 01-01 Chest PA and Lateral Normal [facility] Chloride assayOrdered By: Gagan Rodríguez on 01-01-2025 Chloride [Moles/Vol] 100 mmol/L 98-108 [facility] Comprehensive Metabolic Prof ilon 01-01-2025 Albumin [Mass/Vol] 3.7 g/dL Normal 3.4-4.8 [facility] Comment on above: Performed By: #### L 100.0100, M100.636, L503.6005, L300.3900, L500.4050, M200.1000 ####[facility] [address] [place], [address] Albumin/Globulin [Mass ratio] 1.2 {ratio} Normal 0.9-2.4 [facility] Comment on above: Performed By: #### L 100.0100, M100.636, L503.6005, L300.3900, L500.4050, M200.1000 ####[facility] [address] [place], [address] ALK PHOS 189 U/L High 40-129 [facility] Comment on above: Performed By: #### L 100.0100, M100.636, L503.6005, L300.3900, L500.4050, M200.1000 ####[facility] [address] [place], [address] ALT [Catalytic activity/Vol] 48 U/L High <=46 [facility] Comment on above: Performed By: #### L 100.0100, M100.636, L503.6005, L300.3900, L500.4050, M200.1000 ####[facility] [address] [place], [address] AST [Catalytic activity/Vol] 86 U/L High <=37 [facility] Comment on above: Result Comment: Hemo lysis present, Results??could be affected.?? Performed By: #### L 100.0100, M100.636, L503.6005, L300.3900, L500.4050, M200.1000 ####[facility] [address] [place], [address] Bilirubin [Mass/Vol] 0.76 mg/dL Normal 0.00-1.30 [facility] Comment on above: Performed By: #### L 100.0100, M100.636, L503.6005, L300.3900, L500.4050, M200.1000 ####[facility] [address] [place], [address] BUN/CRE 23.1 RATIO High 10-20 [facility] Comment on above: Performed By: #### L 100.0100, M100.636, L503.6005, L300.3900, L500.4050, M200.1000 ####[facility] [address] [place], [address] Calcium [Mass/Vol] 9.6 mg/dL Normal 7.6-11.0 [facility] Comment on above: Performed By: #### L 100.0100, M100.636, L503.6005, L300.3900, L500.4050, M200.1000 ####[facility] [address] [place], [address] Chloride [Moles/Vol] 100 mmol/L Normal 98-108 [facility] Comment on above: Performed By: #### L 100.0100, M100.636, L503.6005, L300.3900, L500.4050, M200.1000 ####[facility] [address] [place], [address] CO2 [Moles/Vol] 20.9 mmol/L Low 21.0-32.0 [facility] Comment on above: Performed By: #### L 100.0100, M100.636, L503.6005, L300.3900, L500.4050, M200.1000 ####[facility] [address] [place], [address] Creatinine [Mass/Vol] 1.95 mg/dL High 0.70-1.20 [facility] Comment on above: Performed By: #### L 100.0100, M100.636, L503.6005, L300.3900, L500.4050, M200.1000 ####[facility] [address] [place], [address] ECRCL 31.30 ml/min Low 50-250 [facility] Comment on above: Performed By: #### L 100.0100, M100.636, L503.6005, L300.3900, L500.4050, M200.1000 ####[facility] [address] [place], [address] GAP 13 Normal 5-15 [facility] Comment on above: Performed By: #### L 100.0100, M100.636, L503.6005, L300.3900, L500.4050, M200.1000 ####[facility] [address] [place], [address] GFR/1.73 sq M.predicted among non-blacks MDRD (S/P/Bld) [Vol rate/Area] 32 mL/min/{1.73_m2} Low >[address] [facility] Comment on above: Result Comment: mL/m in/1.73m2 CKD-EPI Creatinine Equation (2020) Performed By: #### L 100.0100, M100.636, L503.6005, L300.3900, L500.4050, M200.1000 ####[facility] [address] [place], [address] Globulin (S) [Mass/Vol] 3.2 g/dL Normal 2.2-4.2 [facility] Comment on above: Performed By: #### L 100.0100, M100.636, L503.6005, L300.3900, L500.4050, M200.1000 ####[facility] [address] [place], [address] Glucose [Mass/Vol] 171 mg/dL High 70-99 [facility] Comment on above: Performed By: #### L 100.0100, M100.636, L503.6005, L300.3900, L500.4050, M200.1000 ####[facility] [address] [place], [address] Potassium [Moles/Vol] 4.7 mmol/L Normal 3.3-5.1 [facility] Comment on above: Result Comment: Hemo lysis present, Results??could be affected.?? Performed By: #### L 100.0100, M100.636, L503.6005, L300.3900, L500.4050, M200.1000 ####[facility] [address] [place], [address] Sodium [Moles/Vol] 134 mmol/L Normal 133-145 [facility] Comment on above: Performed By: #### L 100.0100, M100.636, L503.6005, L300.3900, L500.4050, M200.1000 ####[facility] [address] [place], [address] T PROT 6.9 g/dL Normal 5.9-8.4 [facility] Comment on above: Performed By: #### L 100.0100, M100.636, L503.6005, L300.3900, L500.4050, M200.1000 ####[facility] [address] [place], [address] Urea nitrogen [Mass/Vol] 45 mg/dL High 4-19 [facility] Comment on above: Performed By: #### L 100.0100, M100.636, L503.6005, L300.3900, L500.4050, M200.1000 ####[facility] [address] [place], [place], [id number] Emergency Department Summary on 01-01-2025 Emergency Department Summary Normal [facility] Eosinophil percentageOrdered By: Booker Rodríguez on 01-01-2025 Eosinophils/100 WBC (Bld) 0.1 % 0-5 [facility] Erythrocyte Sed Rateon 01-01 SED RATE 42 mm/hr High 0-20 [facility] Comment on above: Performed By: #### L 101.9900, L501.6710 ####[facility] [address] [place], [place], [address] Erythrocyte distribution wid th ratioOrdered By: Booker Rodríguez on 01-01-2025 Erythrocyte distribution width (RBC) [Ratio] 13.1 % 11.6-14.6 [facility] Erythrocyte distribution wid th standard deviationOrdered By: Booker Rodríguez on 01-01-2025 Erythrocyte distribution width (RBC) [Ratio] 46.9 fl High 35.1-43.9 [facility] Erythrocyte sedimentation ra teOrdered By: Mei Mckenzie on 01-01-2025 ESR (Bld) [Velocity] 42 mm/h High 0-20 [facility] Extremity Lower without Cont raon 01-01-2025 Extremity Lower without Contra Normal [facility] Glomerular filtration rate ( GFR) estimation/1.73 sq m using serum, plasma, or whole bOrdered By: Booker Rodríguez on 01-01-2025 GFR/1.73 sq M.predicted among non-blacks MDRD (S/P/Bld) [Vol rate/Area] 32 mL/min/{1.73_m2} Low >[address] [facility] Comment on above: mL/min/1.73m2 CKD-EP I Creatinine Equation (2020) H AND P Exam - Hospitaliston 01-01-2025 H&P Exam - Hospitalist Normal [facility] Hematocrit Auto (Bld) [Volum e fraction]Ordered By: Booker Rodríguez on 01-01-2025 Hematocrit (Bld) [Volume fraction] 37.4 % Low 40-54 [facility] Hemoglobin measurementOrdere d By: Booker Rodríguez on 01-01-2025 Hemoglobin (Bld) [Mass/Vol] 12.8 g/dL Low 13.0-16.5 [facility] Hyaline casts LM.LPF (Urine sed) [#/Area]Ordered By: Booker Rodríguez on 01-01-2025 Hyaline casts (Urine sed) [#/Area] 0 /[LPF] 0-5 [facility] Immature granulocytes/100 WB C Auto (Bld)Ordered By: Booker Rodríguez on 01-01-2025 Immature granulocytes/100 WBC (Bld) 0.700 % 0.0-0.9 [facility] Comment on above: IG% - Immature Granu locytes (promyelocytes, myelocytes and metamyelocytes) > 1% indicates that a LEFT SHIFT is Present. International normalized rat io (INR) calculationOrdered By: Booker Rodríguez on 01-01-2025 INR Coag (Bld) [Relative time] 0.9 {INR} [facility] Ketones Test strip Ql (U)Ord ered By: Booker Rodríguez on 01-01-2025 Ketones Ql (U) 5 mg/dl High Negative [facility] Laboratory - Chemistry and C hemistry - challengeOrdered By: Booker Rodríguez on 01-01-2025 AST [Catalytic activity/Vol] 86 U/L High <38 [facility] Comment on above: Hemolysis present, R esults could be affected. Lactic Acidon 01-01-2025 Lactate [Moles/Vol] 1.1 mmol/L Normal 0.0-2.0 [facility] Comment on above: Performed By: #### L 251.5106 ####[facility] [address] [place], [place], [address] Lactate [Moles/Vol] 2.0 mmol/L Normal 0.0-2.0 [facility] Comment on above: Order Comment: Y Result Comment: Crit ical Result(s) Called KATELYNN at:1649 by:GARCÍA??Results read back by same. Performed By: #### L 100.0100, M100.636, L503.6005, L300.3900, L500.4050, M200.1000 ####[facility] [address] [place], [place], [phone] Lactic acid measurementOrder ed By: Booker Rodríguez on 01-01-2025 Lactate [Moles/Vol] 1.1 mmol/L 0.0-2.0 [facility] MCV (mean corpuscular volume ) determinationOrdered By: Booker Rodríguez on 01-01-2025 MCV (RBC) [Entitic vol] 96.6 fL High 80-94 [facility] Mean corpuscular hemoglobin (MCH) determinationOrdered By: Booker Rodríguez on 01-01-2025 MCH (RBC) [Entitic mass] 33.1 pg High 27.0-32.0 [facility] Mean corpuscular hemoglobin concentration (MCHC) determinationOrdered By: Booker Rodríguez on 01-01-2025 MCHC (RBC) [Mass/Vol] 34.2 g/dL 32-36 [facility] Mean platelet volume determi nationOrdered By: Booker Rodríguez on 01-01-2025 Platelet mean volume (Bld) [Entitic vol] 11.2 fL 6.2-12.0 [facility] Microscopic analysis of urin e for red blood cells (RBC)Ordered By: Booker Rodríguez on 01-01-2025 Microscopic analysis of urine for red blood cells (RBC) 5-10 SEEN /hpf 0-5 [facility] Monocyte percentageOrdered B y: Booker Rodríguez on 01-01-2025 Monocytes/100 WBC (Bld) 9.8 % 0-10 [facility] Mucus LM Ql (Urine sed)Order ed By: Booker Rodríguez on 01-01-2025 Mucus Ql (Urine sed) 0 SEEN /hpf [facility] Neutrophil percentageOrdered By: Booker Rodríguez on 01-01-2025 Neutrophils/100 WBC (Bld) 86.5 % High 47-70 [facility] Nitrite Test strip Ql (U)Ord ered By: Booker Rodríguez on 01-01-2025 Nitrite Ql (U) Negative Negative [facility] No Panel InformationOrdered By: Booker Rodríguez on 01-01-2025 Blood Gas Sample Site Not entered [facility] Blood Gas Specimen Type JOON [facility] Oxygen Delivery Device Room Air [facility] JOON [facility] Not entered [facility] Room Air [facility] Nucleated red blood cell per centageOrdered By: Booker Rodríguez on 01-01-2025 Nucleated RBC/100 WBC (Bld) [Ratio] 0 % 0-5 [facility] Organism identificationOrder ed By: Booker Rodríguez on 01-01-2025 Microorganism identified Cx Nom (Unsp spec) Staphylococcus aureus Abnormal [facility] Partial Thromboplast Timeon 01-01-2025 aPTT Coag (Bld) [Time] 24.3 s Normal 24.1-36.[address] [facility] Comment on above: Performed By: #### L 300.4310, L300.3900 ####[facility] [address] [place], [place], [id number] Platelet countOrdered By: Gagan Rodríguez on 01-01-2025 [facility] on above: Test not performedPl ease note: For this sample, a platelet estimate is provided rather than a platelet count due to platelet clumping. Other parameters associated with this sample are not affected by platelet clumping. If a more accurate platelet count is required, a redraw of the patient will be necessary. Platelet estimateOrdered By: Booker Rodríguez on 01-01-2025 Platelets LM Ql (Bld) ADEQUATE ADEQ [facility] Potassium measurement (mass/ volume)Ordered By: Booker Rodríguez on 01-01-2025 Potassium (Unsp spec) [Mass/Vol] 4.7 mmol/L 3.3-5.1 [facility] Comment on above: Hemolysis present, R esults could be affected. Protein Test strip Ql (U)Ord ered By: Booker Rodríguez on 01-01-2025 Protein Ql (U) 30 mg/dl High Negative [facility] Prothrombin Time w/INRon INR Coag (PPP) [Relative time] 0.9 {INR} Normal [facility] Comment on above: Performed By: #### L 300.4310, L300.3900 ####[facility] [address] [place], [address] PT Coag (PPP) [Time] 12.7 s Normal 11.7-14.9 [facility] Comment on above: Performed By: #### L 300.4310, L300.3900 ####[facility] [address] [place], [address] INR Normal [facility] Comment on above: Result Comment: This specimen has been REJECTED due to Laboratory criteria:Clotted.MARIAN CAPPS has been notified of need ofrecollection.01/01/251751 Maren Griggs Performed By: #### L 100.0100, M100.636, L503.6005, L300.3900, L500.4050, M200.1000 ####[facility] [address] [place], [address] PROTIME Normal 11.7-14.9 [facility] Comment on above: Result Comment: This specimen has been REJECTED due to Laboratory criteria:Clotted.MARIAN CAPPS has been notified of need ofrecollection.01/01/251751 Maren Griggs Performed By: #### L 100.0100, M100.636, L503.6005, L300.3900, L500.4050, M200.1000 ####[facility] [address] [place], [address] Prothrombin timeOrdered By: Booker Rodríguez on 01-01-2025 PT Coag (PPP) [Time] 12.7 s 11.7-14.9 [facility] RBC Auto (Bld) [#/Vol]Ordere d By: Booker Rodríguez on 01-01-2025 RBC (Bld) [#/Vol] 3.87 10*6/uL Low 4.6-6.2 [facility] Serum creatinine measurement (mass/volume)Ordered By: Booker Rodríguez on 01-01-2025 Creatinine [Mass/Vol] 1.95 mg/dL High 0.70-1.20 [facility] Serum globulin measurementOr dered By: Booker Rodríguez on 01-01-2025 Globulin (S) [Mass/Vol] 3.2 g/dL 2.2-4.2 [facility] Serum glucose measurement (m ass/volume)Ordered By: Booker Rodríguez on 01-01-2025 Glucose [Mass/Vol] 171 mg/dL High 70-99 [facility] Serum or plasma C reactive p rotein measurement (mass/volume)Ordered By: Mei Mckenzie on 01-01-2025 CRP [Mass/Vol] 168.00 mg/L High 0.0-3.0 [facility] Serum or plasma alanine meraz otransferase (ALT) measurementOrdered By: Booker Rodríguez on 01-01-2025 ALT [Catalytic activity/Vol] 48 U/L High <47 [facility] Serum or plasma albumin ana urement (mass/volume)Ordered By: Booker Rodríguez on 01-01-2025 Albumin [Mass/Vol] 3.7 g/dL 3.4-4.8 [facility] Serum or plasma albumin/glob ulin mass ratioOrdered By: Booker Rodríguez on 01-01-2025 Albumin/Globulin [Mass ratio] 1.2 {ratio} 0.9-2.4 [facility] Serum or plasma alkaline keenan sphatase measurementOrdered By: Booker Rodríguez on 01-01-2025 ALP [Catalytic activity/Vol] 189 U/L High 40-129 [facility] Serum or plasma calcium ana urement (mass/volume)Ordered By: Booker Rodríguez on 01-01-2025 Calcium [Mass/Vol] 9.6 mg/dL 7.6-11.0 [facility] Serum or plasma urea nitroge n measurement (mass/volume)Ordered By: Booker Rodríguez on 01-01-2025 Urea nitrogen [Mass/Vol] 45 mg/dL High 4-19 [facility] Sodium levelOrdered By: Booker Rodríguez on 01-01-2025 Sodium [Moles/Vol] 134 mmol/L 133-145 [facility] Squamous epithelial cells de tection in urine sediment by light microscopyOrdered By: Booker Rodríguez on 01-01-2025 Epithelial cells.squamous LM Ql (Urine sed) 0 SEEN /hpf 0-5 [facility] Total proteinOrdered By: Helen Rodríguez on 01-01-2025 Protein [Mass/Vol] 6.9 g/dL 5.9-8.4 [facility] Urinalysis, Completeon 01-01 CAST,HYALINE 0-5 SEEN Normal 0-5 [facility] Comment on above: Order Comment: JULIANNA TER SPECIMEN Performed By: #### L 400.0001, M1 ####[facility] [address] [place], [address] RBC 5-10 SEEN Normal 0-5 [facility] Comment on above: Order Comment: JULIANNA TER SPECIMEN Performed By: #### L 400.0001, M10 ####[facility] [address] [place], [address] WBC 0-5 SEEN Normal 0-5 [facility] Comment on above: Order Comment: JULIANNA TER SPECIMEN Performed By: #### L 400.0001, M10 ####[facility] [address] [place], [address] BACTERIA 0 SEEN Normal None Seen [facility] Comment on above: Order Comment: JULIANNA TER SPECIMEN Performed By: #### L 400.0001, M1.0 ####[facility] [address] [place], [address] EPI,SQUAMOUS 0 SEEN Normal 0-5 [facility] Comment on above: Order Comment: JULIANNA TER SPECIMEN Performed By: #### L 400.0001, M1.2199 ####[facility] [address] [place], [address] Mucus Ql (Urine sed) 0 SEEN Normal [facility] Comment on above: Order Comment: JULIANNA TER SPECIMEN Performed By: #### L 400.0001, M1.0 ####[facility] [address] [place], [address] Urine clarityOrdered By: Helen Rodríguez on 01-01-2025 Clarity (U) Sl. Cloudy Clear [facility] Urine color determinationOrd ered By: Booker Rodríguez on 01-01-2025 Color (U) Yellow Yellow [facility] Urine cultureOrdered By: Helen Rodríguez on 01-01-2025 Bacteria identified Cx Nom (U) Culture exhibits no growth. [facility] Urine glucose detectionOrder ed By: Booker Rodríguez on 01-01-2025 Glucose Ql (U) Normal mg/dl Normal [facility] Urine leukocyte esterase det ection by dipstickOrdered By: Booker Rodríguez on 01-01-2025 Leukocyte esterase Test strip Ql (U) Negative Negative [facility] Urine pHOrdered By: Booker chaudhari on 01-01-2025 pH (U) 6.0 [pH] 5.0 - 8.0 [facility] Urine sediment bacteria coun t by microscopy (number/high power field)Ordered By: Booker Rodríguez on 01-01-2025 Bacteria LM.HPF (Urine sed) [#/Area] 0 /[HPF] None Seen [facility] Urine specific gravity measu rementOrdered By: Booker Rodríguez on 01-01-2025 Specific gravity (U) [Rel density] 1.020 1.002-1.030 [facility] Urine urobilinogen measureme ntOrdered By: Booker Rodríguez on 01-01-2025 Urobilinogen Ql (U) Normal mg/dl Normal [facility] Venous Blood Gason Blood Gas Type JOON Normal [facility] Comment on above: Performed By: #### L 9000.0810 ####[facility] [address] [place], [address] O2 Delivery Dev Room Air Normal [facility] Comment on above: Performed By: #### L 9000.0810 ####[facility] [address] [place], [address] SITE Not entered Normal [facility] Comment on above: Performed By: #### L 9000.0810 ####[facility] [address] [place], [address] VBG BE -3 mmol/L Low -1.0-3.5 [facility] Comment on above: Performed By: #### L 9000.0810 ####[facility] [address] [place], [address] VBG pCO2 35.1 mmHg Low 41-51 [facility] Comment on above: Performed By: #### L 9000.0810 ####[facility] [address] [place], [address] VBG pH 7.41 Normal 7.32-7.42 [facility] Comment on above: Performed By: #### L 9000.0810 ####[facility] [address] [place], [address] VBG PO2 32 mmHg Normal 25-40 [facility] Comment on above: Performed By: #### L 9000.0810 ####[facility] [address] [place], [address] VBG SO2 62 Normal 50-70 [facility] Comment on above: Performed By: #### L 9000.0810 ####[facility] [address] [place], [address] Venous blood ammonia measure mentOrdered By: Mei Mckenzie on 01-01-2025 Ammonia (P) [Moles/Vol] 13.6 umol/L Low 16-60 [facility] Venous blood base excess treva surementOrdered By: Booker Rodríguez on 01-01-2025 Base excess Calc (BldV) [Moles/Vol] -3 mmol/L Low -1.0-3.5 [facility] Venous blood bicarbonate treva surementOrdered By: Booker Rodríguez on 01-01-2025 HCO3 (Bld) [Moles/Vol] 22 mmol/L Normal 22-[address] [facility] Comment on above: Performed By: #### L 9000.0810 ####[facility] [address] [place], [place], [id number] Venous blood oxygen saturati on measurementOrdered By: Booker Rodríguez on 01-01-2025 Oxygen saturation in Blood 62 % 50-70 [facility] Venous blood pH measurementO rdered By: Booker Rodríguez on 01-01-2025 pH (BldV) 7.41 [pH] 7.32-7.42 [facility] Venous blood partial pressur e of carbon dioxide measurementOrdered By: Booker Rodríguez on 01-01-2025 CO2 (BldV) [Partial pressure] 35.1 mm[Hg] Low 41-51 [facility] Venous blood partial pressur e of oxygen measurementOrdered By: Booker Rodríguez on 01-01-2025 Oxygen (BldV) [Partial pressure] 32 mm[Hg] 25-40 [facility] Venous blood total carbon di oxide measurementOrdered By: Booker Rodríguez on 01-01-2025 CO2 [Moles/Vol] 23 mmol/L Normal 23-33 [facility] Comment on above: Performed By: #### L 9000.0810 ####[facility] [address] [place], [place], [id number] White blood cell (WBC) count Ordered By: Booker Rodríguez on 01-01-2025 WBC (Bld) [#/Vol] 7.0 10*3/uL 4.4-11.0 [facility] White blood cell countOrdere d By: Booker Rodríguez on 01-01-2025 White blood cell count 0-5 SEEN /hpf 0-5 [facility] aPTTon 01-01-2025 aPTT [facility] Emergency Department Summary on 12-31-2024 Emergency Department Summary Normal [facility] deOrdered By: Jaden Forman on 12-31-2024 Glucose [Mass/Vol] 101 mg/dL 74-106 [facility] Comment on above: MANAGEMENT OF PATIEN T CARE PER NURSING PROTOCOL Anion gap in Serum or Plasma Ordered By: Michael Meeks on 12-17-2024 Anion gap [Moles/Vol] 9 mmol/L 5-15 [facility] BUN/creatinine ratioOrdered By: Michael Meeks on 12-17-2024 Urea nitrogen/Creatinine [Mass ratio] 25.8 mg/mg High 10-20 [facility] Bilirubin directOrdered By: Michael Meeks on 12-17-2024 Bilirubin.direct [Mass/Vol] 0.17 mg/dL 0.00-0.30 [facility] Bilirubin, totalOrdered By: Michael Meeks on 12-17-2024 Bilirubin [Mass/Vol] 0.47 mg/dL 0.00-1.30 [facility] Carbon dioxide, total [Moles /volume] in Central venous bloodOrdered By: Michael Meeks on 12-17-2024 CO2 [Moles/Vol] 26.5 mmol/L 21.0-32.0 [facility] Chloride assayOrdered By: Yfn Meeks on 12-17-2024 Chloride [Moles/Vol] 105 mmol/L 98-108 [facility] Glomerular filtration rate ( GFR) estimation/1.73 sq m using serum, plasma, or whole bOrdered By: Michael Meeks on 12-17-2024 GFR/1.73 sq M.predicted among non-blacks MDRD (S/P/Bld) [Vol rate/Area] 53 mL/min/{1.73_m2} Low >[address] [facility] Comment on above: mL/min/1.73m2 CKD-EP I Creatinine Equation (2020) Laboratory - Chemistry and C hemistry - challengeOrdered By: Michael Meeks on 12-17-2024 AST [Catalytic activity/Vol] 28 U/L <38 [facility] No Panel InformationOrdered By: Michael Meeks on 12-17-2024 28 U/L <38 [facility] Potassium measurement (mass/ volume)Ordered By: Michael Meeks on 12-17-2024 Potassium (Unsp spec) [Mass/Vol] 4.5 mmol/L 3.3-5.1 [facility] Serum creatinine measurement (mass/volume)Ordered By: Michael Meeks on 12-17-2024 Creatinine [Mass/Vol] 1.30 mg/dL High 0.70-1.20 [facility] Serum globulin measurementOr dered By: Michael Meeks on 12-17-2024 Globulin (S) [Mass/Vol] 2.7 g/dL 2.2-4.2 [facility] Serum glucose measurement (m ass/volume)Ordered By: Michael Meeks on 12-17-2024 Glucose [Mass/Vol] 98 mg/dL 70-99 [facility] Serum or plasma alanine meraz otransferase (ALT) measurementOrdered By: Michael Meeks on 12-17-2024 ALT [Catalytic activity/Vol] 18 U/L <47 [facility] Serum or plasma albumin ana urement (mass/volume)Ordered By: Michael Meeks on 12-17-2024 Albumin [Mass/Vol] 4.3 g/dL 3.4-4.8 [facility] Serum or plasma albumin/glob ulin mass ratioOrdered By: Michael Meeks on 12-17-2024 Albumin/Globulin [Mass ratio] 1.6 {ratio} 0.9-2.4 [facility] Serum or plasma alkaline keenan sphatase measurementOrdered By: Michael Meeks on 12-17-2024 ALP [Catalytic activity/Vol] 107 U/L 40-129 [facility] Serum or plasma calcium ana urement (mass/volume)Ordered By: Michael Meeks on 12-17-2024 Calcium [Mass/Vol] 9.8 mg/dL 7.6-11.0 [facility] Serum or plasma urea nitroge n measurement (mass/volume)Ordered By: Michael Meeks on 12-17-2024 Urea nitrogen [Mass/Vol] 34 mg/dL High 4-19 [facility] Sodium levelOrdered By: Ruslan Meeks on 12-17-2024 Sodium [Moles/Vol] 141 mmol/L 133-145 [facility] T4 freeOrdered By: Michael sanchez on 12-17-2024 Free T4 [Mass/Vol] 1.30 ng/dL 0.76-1.46 [facility] TSH DL <= 0.005 mIU/L QnOrde red By: Michael Meeks on 12-17-2024 TSH Qn 2.390 uIU/mL 0.300-4.200 [facility] Total proteinOrdered By: Amrik Meeks on 12-17-2024 Protein [Mass/Vol] 7.0 g/dL 5.9-8.4 [facility] Anion gap in Serum or Plasma Ordered By: Michael Meeks on 12-16-2024 Anion gap [Moles/Vol] 12 mmol/L 5-15 [facility] BUN/creatinine ratioOrdered By: Michael Meeks on 12-16-2024 Urea nitrogen/Creatinine [Mass ratio] 23.5 mg/mg High 10-20 [facility] Bilirubin, totalOrdered By: Michael Meeks on 12-16-2024 Bilirubin [Mass/Vol] 0.67 mg/dL 0.00-1.30 [facility] Carbon dioxide, total [Moles /volume] in Central venous bloodOrdered By: Michael Meeks on 12-16-2024 CO2 [Moles/Vol] 21.8 mmol/L 21.0-32.0 [facility] Chloride assayOrdered By: Yfn Meeks on 12-16-2024 Chloride [Moles/Vol] 105 mmol/L 98-108 [facility] Glomerular filtration rate ( GFR) estimation/1.73 sq m using serum, plasma, or whole bOrdered By: Michael Meeks on 12-16-2024 GFR/1.73 sq M.predicted among non-blacks MDRD (S/P/Bld) [Vol rate/Area] 55 mL/min/{1.73_m2} Low >[address] [facility] Comment on above: mL/min/1.73m2 CKD-EP I Creatinine Equation (2020) Laboratory - Chemistry and C hemistry - challengeOrdered By: Michael Meeks on 12-16-2024 AST [Catalytic activity/Vol] 23 U/L <38 [facility] No Panel InformationOrdered By: Michael Meeks on 12-16-2024 23 U/L <38 [facility] Potassium measurement (mass/ volume)Ordered By: Michael Meeks on 12-16-2024 Potassium (Unsp spec) [Mass/Vol] 4.6 mmol/L 3.3-5.1 [facility] Serum creatinine measurement (mass/volume)Ordered By: Michael Meeks on 12-16-2024 Creatinine [Mass/Vol] 1.25 mg/dL High 0.70-1.20 [facility] Serum globulin measurementOr dered By: Michael Meeks on 12-16-2024 Globulin (S) [Mass/Vol] 2.6 g/dL 2.2-4.2 [facility] Serum glucose measurement (m ass/volume)Ordered By: Michael Meeks on 12-16-2024 Glucose [Mass/Vol] 124 mg/dL High 70-99 [facility] Serum or plasma alanine meraz otransferase (ALT) measurementOrdered By: Michael Meeks on 12-16-2024 ALT [Catalytic activity/Vol] 12 U/L <47 [facility] Serum or plasma albumin ana urement (mass/volume)Ordered By: Michael Meeks on 12-16-2024 Albumin [Mass/Vol] 4.3 g/dL 3.4-4.8 [facility] Serum or plasma albumin/glob ulin mass ratioOrdered By: Michael Meeks on 12-16-2024 Albumin/Globulin [Mass ratio] 1.6 {ratio} 0.9-2.4 [facility] Serum or plasma alkaline keenan sphatase measurementOrdered By: Michael Meeks on 12-16-2024 ALP [Catalytic activity/Vol] 99 U/L 40-129 [facility] Serum or plasma calcium ana urement (mass/volume)Ordered By: Michael Meeks on 12-16-2024 Calcium [Mass/Vol] 9.7 mg/dL 7.6-11.0 [facility] Serum or plasma urea nitroge n measurement (mass/volume)Ordered By: Michael Meeks on 12-16-2024 Urea nitrogen [Mass/Vol] 29 mg/dL High 4-19 [facility] Sodium levelOrdered By: Ruslan Meeks on 12-16-2024 Sodium [Moles/Vol] 138 mmol/L 133-145 [facility] TSH DL <= 0.005 mIU/L QnOrde red By: Michael Meeks on 12-16-2024 TSH Qn 2.130 uIU/mL 0.300-4.200 [facility] ThyroxineOrdered By: Michael mccallum on 12-16-2024 T4 [Mass/Vol] 6.8 ug/dL 4.5-12.1 [facility] Total proteinOrdered By: Amrik Meeks on 12-16-2024 Protein [Mass/Vol] 6.9 g/dL 5.9-8.4 [facility] Bilirubin directOrdered By: Michael Meeks on 11-26-2024 Bilirubin.direct [Mass/Vol] 0.24 mg/dL 0.00-0.30 [facility] Bilirubin, totalOrdered By: Michael Meeks on 11-26-2024 Bilirubin [Mass/Vol] 0.67 mg/dL 0.00-1.30 [facility] Laboratory - Chemistry and C hemistry - challengeOrdered By: Michael Meeks on 11-26-2024 AST [Catalytic activity/Vol] 21 U/L <38 [facility] No Panel InformationOrdered By: Michael Meeks on 11-26-2024 21 U/L <38 [facility] Serum globulin measurementOr dered By: Michael Meeks on 11-26-2024 Globulin (S) [Mass/Vol] 3.0 g/dL 2.2-4.2 [facility] Serum or plasma alanine meraz otransferase (ALT) measurementOrdered By: Michael Meeks on 11-26-2024 ALT [Catalytic activity/Vol] 11 U/L <47 [facility] Serum or plasma albumin ana urement (mass/volume)Ordered By: Michael Meeks on 11-26-2024 Albumin [Mass/Vol] 4.3 g/dL 3.4-4.8 [facility] Serum or plasma alkaline keenan sphatase measurementOrdered By: Michael Meeks on 11-26-2024 ALP [Catalytic activity/Vol] 104 U/L 40-129 [facility] Total proteinOrdered By: Amrik Meeks on 11-26-2024 Protein [Mass/Vol] 7.2 g/dL 5.9-8.4 [facility] Anion gap in Serum or Plasma Ordered By: Michael Meeks on 11-24-2024 Anion gap [Moles/Vol] 10 mmol/L 5-15 [facility] BUN/creatinine ratioOrdered By: Michael Meeks on 11-24-2024 Urea nitrogen/Creatinine [Mass ratio] 20.8 mg/mg High 10-20 [facility] Carbon dioxide, total [Moles /volume] in Central venous bloodOrdered By: Michael Meeks on 11-24-2024 CO2 [Moles/Vol] 23.8 mmol/L 21.0-32.0 [facility] Chloride assayOrdered By: Yfn Meeks on 11-24-2024 Chloride [Moles/Vol] 102 mmol/L 98-108 [facility] Glomerular filtration rate ( GFR) estimation/1.73 sq m using serum, plasma, or whole bOrdered By: Michael Meeks on 11-24-2024 GFR/1.73 sq M.predicted among non-blacks MDRD (S/P/Bld) [Vol rate/Area] 46 mL/min/{1.73_m2} Low >[address] [facility] Comment on above: mL/min/1.73m2 CKD-EP I Creatinine Equation (2020) Potassium measurement (mass/ volume)Ordered By: Michael Meeks on 11-24-2024 Potassium (Unsp spec) [Mass/Vol] 4.9 mmol/L 3.3-5.1 [facility] Serum creatinine measurement (mass/volume)Ordered By: Michael Meeks on 11-24-2024 Creatinine [Mass/Vol] 1.47 mg/dL High 0.70-1.20 [facility] Serum glucose measurement (m ass/volume)Ordered By: Michael Meeks on 11-24-2024 Glucose [Mass/Vol] 142 mg/dL High 70-99 [facility] Serum or plasma calcium ana urement (mass/volume)Ordered By: Michael Meeks on 11-24-2024 Calcium [Mass/Vol] 9.8 mg/dL 7.6-11.0 [facility] Serum or plasma urea nitroge n measurement (mass/volume)Ordered By: Michael Meeks on 11-24-2024 Urea nitrogen [Mass/Vol] 31 mg/dL High 4-19 [facility] Sodium levelOrdered By: Ruslan Meeks on 11-24-2024 Sodium [Moles/Vol] 136 mmol/L 133-145 [facility] T4 freeOrdered By: Michael sanchez on 11-05-2024 Free T4 [Mass/Vol] 0.90 ng/dL 0.76-1.46 [facility] TSH DL <= 0.005 mIU/L QnOrde red By: Michael Meeks on 11-05-2024 Thyroid Stimulating Hormone (TSH) 6.920 uIU/mL High 0.300-4.200 [facility] TSH Qn 6.920 uIU/mL High 0.300-4.200 [facility] Anion gap in Serum or Plasma Ordered By: Michale Meeks on 10-27-2024 Anion gap [Moles/Vol] 10 mmol/L 5-15 [facility] BUN/creatinine ratioOrdered By: Michael Meeks on 10-27-2024 Urea nitrogen/Creatinine [Mass ratio] 17.0 mg/mg 10-20 [facility] Carbon dioxide, total [Moles /volume] in Central venous bloodOrdered By: Michael Meeks on 10-27-2024 CO2 [Moles/Vol] 23.9 mmol/L 21.0-32.0 [facility] Chloride assayOrdered By: Yfn Meeks on 10-27-2024 Chloride [Moles/Vol] 106 mmol/L 98-108 [facility] GFR/1.73 sq M.predicted mehran g non-blacks MDRD (S/P/Bld) [Vol rate/Area]Ordered By: Michael Meeks on 10-27-2024 Estimated GFR (MDRD) Non-Af Amer 54 Low >60 [facility] Comment on above: mL/min/1.73m2 CKD-EP I Creatinine Equation (2020) Glomerular filtration rate ( GFR) estimation/1.73 sq m using serum, plasma, or whole bOrdered By: Michael Meeks on 10-27-2024 GFR/1.73 sq M.predicted among non-blacks MDRD (S/P/Bld) [Vol rate/Area] 54 mL/min/{1.73_m2} Low >[address] [facility] Comment on above: mL/min/1.73m2 CKD-EP I Creatinine Equation (2020) Potassium (Unsp spec) [Mass/ Vol]Ordered By: Michael Meeks on 10-27-2024 Potassium [Moles/Vol] 4.6 mmol/L 3.3-5.1 [facility] Potassium measurement (mass/ volume)Ordered By: Michael Meeks on 10-27-2024 Potassium (Unsp spec) [Mass/Vol] 4.6 mmol/L 3.3-5.1 [facility] Serum creatinine measurement (mass/volume)Ordered By: Michael Meeks on 10-27-2024 Creatinine [Mass/Vol] 1.28 mg/dL High 0.70-1.20 [facility] Serum glucose measurement (m ass/volume)Ordered By: Michael Meeks on 10-27-2024 Glucose [Mass/Vol] 161 mg/dL High 70-99 [facility] Serum or plasma calcium ana urement (mass/volume)Ordered By: Michael Meeks on 10-27-2024 Calcium [Mass/Vol] 9.3 mg/dL 7.6-11.0 [facility] Serum or plasma urea nitroge n measurement (mass/volume)Ordered By: Michael Meeks on 10-27-2024 Urea nitrogen [Mass/Vol] 22 mg/dL High 4-19 [facility] Sodium levelOrdered By: Ruslan Meeks on 10-27-2024 Sodium [Moles/Vol] 140 mmol/L 133-145 [facility] Wound Ctr History AND Physic joe 10-09-2024 Wound Ctr History & Physical Normal [facility] T4 freeOrdered By: Michael sanchez on 09-24-2024 Free T4 [Mass/Vol] 1.30 ng/dL 0.76-1.46 [facility] L499.0042on 09-23-2024 Trop T High Sen 77 ng/L Invalid Interpretation Code <=22 [facility] Comment on above: Result Comment: DIS BOY AMENDED REPORT 09/23/24 9012 Trop T HS 2HR previously reported as: 77 *H ng/L Performed By: #### L 499.0042 ####[facility] [address] [place], [address] L499.0043on 09-23-2024 Trop T High Sen 69 ng/L Invalid Interpretation Code <=22 [facility] Comment on above: Result Comment: DIS BOY AMENDED REPORT 09/23/24 0432 Trop T HS 4HR previously reported as: 69 *H ng/L Performed By: #### L 499.0043 ####[facility] [address] [place], [address] Calculated very low density lipoprotein (VLDL) cholesterol measurementOrdered By: Michael Meeks on 09-22-2024 Calculated very low density lipoprotein (VLDL) cholesterol measurement 26 mg/dL 40 [facility] VLDL Cholesterol 26 mg/dL 40 [facility] Hemoglobin A1c percentageOrd ered By: Michael Meeks on 09-22-2024 HbA1c (Bld) [Mass fraction] 6.1 % >5.7 [facility] LDL calc ser/plasOrdered By: Michael Meeks on 09-22-2024 Cholesterol in LDL [Mass/Vol] 144 mg/dL [facility] Comment on above: Pbjocitlnh=817-304 m g/dL & Higher Ijgy=029 mg/dL or greater LDL Cholesterol, Calculated 144 mg/dL [facility] Comment on above: Afxmxgegfb=159-177 m g/dL & Higher Fczg=197 mg/dL or greater Screening total cholesterol/ high density lipoprotein (HDL) cholesterol ratioOrdered By: Michael Meeks on 09-22-2024 Cholesterol.total/Cholest devorah in HDL [Mass ratio] 3.38 {ratio} [facility] Serum or plasma cholesterol in HDL measurement (mass/volume)Ordered By: Michael Meeks on 09-22-2024 Cholesterol in HDL [Mass/Vol] 72 mg/dL >40 [facility] Comment on above: National Cholesterol Education Program (NCEP) guidelines:<40 mg/dL: Low HDL-cholesterol (major risk factor for CHD)>= 60 mg/dL: High HDL-cholesterol (negative risk factor for CHD)HDL-cholesterol is affected by a number of factors, e.g. smoking, exercise, hormones, sex and age. Serum or plasma cholesterol measurement (mass/volume)Ordered By: Michael Meeks on 09-22-2024 Cholesterol [Mass/Vol] 242 mg/dL High <[address] [facility] Comment on above: Cholesterol level, D esirable <200 mg/dLBorderline high cholesterol 200-239 mg/dLHigh cholesterol >=240 mg/dLRecommendations of the NCEP Adult Treatment Panel for the following risk-cutoff thresholds for the [place] population. TSH DL <= 0.005 mIU/L QnOrde red By: Michael Meeks on 09-22-2024 Thyroid Stimulating Hormone (TSH) 4.900 uIU/mL High 0.300-4.200 [facility] TSH Qn 4.900 uIU/mL High 0.300-4.200 [facility] Triglycerides measurementOrd ered By: Michael Meeks on 09-22-2024 Triglyceride [Mass/Vol] 131 mg/dL <199 [facility] Comment on above: The drugs N-Acetylcy steine and Metamizole may falsely depress this assay. Normal range: <150 mg/dLBorderline High: 150-199 mg/dLHigh: 200-499 mg/dLVery High: >500 mg/dL Discharge Instructionon 08-24 Discharge Instruction Normal [facility] Phosphoruson 09-18-2024 Phosphate [Mass/Vol] 2.7 mg/dL Normal 2.7-4.5 [facility] Comment on above: Performed By: #### L 501.2300 ####[facility] [address] [place], [place], [id number] Serum phosphorus measurement Ordered By: Altaf Mayfield on 09-18-2024 Phosphorus Level 2.7 mg/dL 2.7-4.5 [facility] 12 Lead EKGon 09-17-2024 12 Lead EKG Normal [facility] Absolute lymphocyte countOrd ered By: Altaf Mayfield on 09-17-2024 Lymphocytes Auto (Unsp spec) [#/Vol] 0.66 10*3/uL Low 0.83-4.51 [facility] Absolute neutrophil countOrd ered By: Altaf Mayfield on 09-17-2024 Neutrophils (Bld) [#/Vol] 2.3 10*3/uL 2.0-7.7 [facility] Automated lymphocyte count a s percentage of total leukocytesOrdered By: Altaf Orozcoenzo on 09-17-2024 Lymphocytes/100 WBC Auto (Unsp spec) 18.4 % Low 19-41 [facility] BUN/creatinine ratioOrdered By: Altaf Chaparro on 09-17-2024 Urea nitrogen/Creatinine [Mass ratio] 11.6 mg/mg 10-20 [facility] Basophil percentageOrdered B y: Altaf Chaparro on 09-17-2024 Basophils/100 WBC (Bld) 1.4 % High 0-1 [facility] Bilirubin, totalOrdered By: Altaf Mayfield on 09-17-2024 Bilirubin [Mass/Vol] 0.66 mg/dL 0.00-1.30 [facility] CBC W/Diff, Automatedon 08-24 Absolute Lymph 0.66 X10 3/uL Low 0.83-4.51 [facility] Comment on above: Performed By: #### L 500.4100, L501.2300, L100.0100, L500.4050 ####[facility] [address] [place], [address] Absolute Neut 2.3 X10 3/uL Normal 2.0-7.7 [facility] Comment on above: Performed By: #### L 500.4100, L501.2300, L100.0100, L500.4050 ####[facility] [address] [place], [address] Basophils/100 WBC (Bld) 1.4 % High 0-1 [facility] Comment on above: Performed By: #### L 500.4100, L501.2300, L100.0100, L500.4050 ####[facility] [address] [place], [address] Eosinophils/100 WBC (Bld) 3.1 % Normal 0-5 [facility] Comment on above: Performed By: #### L 500.4100, L501.2300, L100.0100, L500.4050 ####[facility] [address] [place], [address] Erythrocyte distribution width (RBC) [Ratio] 13.4 % Normal 11.6-14.6 [facility] Comment on above: Performed By: #### L 500.4100, L501.2300, L100.0100, L500.4050 ####[facility] [address] [place], [address] Hematocrit (Bld) [Volume fraction] 43.4 % Normal 40-54 [facility] Comment on above: Performed By: #### L 500.4100, L501.2300, L100.0100, L500.4050 ####[facility] [address] [place], [address] Hemoglobin (Bld) [Mass/Vol] 14.3 g/dL Normal 13.0-16.5 [facility] Comment on above: Performed By: #### L 500.4100, L501.2300, L100.0100, L500.4050 ####[facility] [address] [place], [address] IG% 0.800 Normal 0.0-0.9 [facility] Comment on above: Result Comment: IG% - Immature Granulocytes (promyelocytes, myelocytes andmetamyelocytes) > 1% indicates that a LEFT SHIFT is Present. Performed By: #### L 500.4100, L501.2300, L100.0100, L500.4050 ####[facility] [address] [place], [address] Lymphocytes/100 WBC (Bld) 18.4 % Low 19-41 [facility] Comment on above: Performed By: #### L 500.4100, L501.2300, L100.0100, L500.4050 ####[facility] [address] [place], [address] MCH (RBC) [Entitic mass] 30.9 pg Normal 27.0-32.0 [facility] Comment on above: Performed By: #### L 500.4100, L501.2300, L100.0100, L500.4050 ####[facility] [address] [place], [address] MCHC (RBC) [Mass/Vol] 32.9 g/dL Normal 32-36 [facility] Comment on above: Performed By: #### L 500.4100, L501.2300, L100.0100, L500.4050 ####[facility] [address] [place], [address] MCV (RBC) [Entitic vol] 93.7 fL Normal 80-94 [facility] Comment on above: Performed By: #### L 500.4100, L501.2300, L100.0100, L500.4050 ####[facility] [address] [place], [address] Monocytes/100 WBC (Bld) 12.3 % High 0-10 [facility] Comment on above: Performed By: #### L 500.4100, L501.2300, L100.0100, L500.4050 ####[facility] [address] [place], [address] Neutrophils/100 WBC (Bld) 64.0 % Normal 47-70 [facility] Comment on above: Performed By: #### L 500.4100, L501.2300, L100.0100, L500.4050 ####[facility] [address] [place], [address] Nucleated RBC (Bld) [#/Vol] 0 10*3/uL Normal 0-5 [facility] Comment on above: Performed By: #### L 500.4100, L501.2300, L100.0100, L500.4050 ####[facility] [address] [place], [address] Platelet mean volume (Bld) [Entitic vol] 10.3 fL Normal 6.2-12.0 [facility] Comment on above: Performed By: #### L 500.4100, L501.2300, L100.0100, L500.4050 ####[facility] [address] [place], [address] Platelets (Bld) [#/Vol] 140 10*3/uL Low 150-450 [facility] Comment on above: Performed By: #### L 500.4100, L501.2300, L100.0100, L500.4050 ####[facility] [address] [place], [address] RBC (Bld) [#/Vol] 4.63 10*6/uL Normal 4.6-6.2 [facility] Comment on above: Performed By: #### L 500.4100, L501.2300, L100.0100, L500.4050 ####[facility] [address] [place], [address] RDW SD 45.7 fl High 35.1-43.9 [facility] Comment on above: Performed By: #### L 500.4100, L501.2300, L100.0100, L500.4050 ####[facility] [address] [place], [address] WBC (Bld) [#/Vol] 3.6 10*3/uL Low 4.4-11.0 [facility] Comment on above: Performed By: #### L 500.4100, L501.2300, L100.0100, L500.4050 ####[facility] [address] [place], [address] Calculated very low density lipoprotein (VLDL) cholesterol measurementOrdered By: Altaf Mayfield on 09-17-2024 Calculated very low density lipoprotein (VLDL) cholesterol measurement 15 mg/dL 5-40 [facility] VLDL Cholesterol 15 mg/dL 5-40 [facility] Carbon dioxide measurementOr dered By: Altaf Mayfield on 09-17-2024 CO2 [Moles/Vol] 24.2 mmol/L 22.0-29.0 [facility] Chloride measurementOrdered By: Altaf Mayfield on 09-17-2024 Chloride [Moles/Vol] 102 mmol/L 96-108 [facility] Comprehensive Metabolic Prof ilon 09-17-2024 Albumin [Mass/Vol] 3.7 g/dL Normal 3.4-4.8 [facility] Comment on above: Performed By: #### L 500.4100, L501.2300, L100.0100, L500.4050 ####[facility] [address] [place], [address] Albumin/Globulin [Mass ratio] 1.5 {ratio} Normal 0.9-2.4 [facility] Comment on above: Performed By: #### L 500.4100, L501.2300, L100.0100, L500.4050 ####[facility] [address] [place], [address] ALK PHOS 95 U/L Normal 40-129 [facility] Comment on above: Performed By: #### L 500.4100, L501.2300, L100.0100, L500.4050 ####[facility] [address] [place], [address] ALT [Catalytic activity/Vol] 11 U/L Normal <=46 [facility] Comment on above: Performed By: #### L 500.4100, L501.2300, L100.0100, L500.4050 ####[facility] [address] [place], [address] Anion gap [Moles/Vol] 12 mmol/L Normal 5-15 [facility] Comment on above: Performed By: #### L 500.4100, L501.2300, L100.0100, L500.4050 ####[facility] [address] [place], [address] AST [Catalytic activity/Vol] 25 U/L Normal <=37 [facility] Comment on above: Performed By: #### L 500.4100, L501.2300, L100.0100, L500.4050 ####[facility] [address] [place], [address] Bilirubin [Mass/Vol] 0.66 mg/dL Normal 0.00-1.30 [facility] Comment on above: Performed By: #### L 500.4100, L501.2300, L100.0100, L500.4050 ####[facility] [address] [place], [address] BUN/CRE 11.6 RATIO Normal 10-20 [facility] Comment on above: Performed By: #### L 500.4100, L501.2300, L100.0100, L500.4050 ####[facility] [address] [place], [address] Calcium [Mass/Vol] 9.5 mg/dL Normal 7.6-11.0 [facility] Comment on above: Performed By: #### L 500.4100, L501.2300, L100.0100, L500.4050 ####[facility] [address] [place], [address] Chloride [Moles/Vol] 102 mmol/L Normal 96-108 [facility] Comment on above: Performed By: #### L 500.4100, L501.2300, L100.0100, L500.4050 ####[facility] [address] [place], [address] CO2 [Moles/Vol] 24.2 mmol/L Normal 22.0-29.0 [facility] Comment on above: Performed By: #### L 500.4100, L501.2300, L100.0100, L500.4050 ####[facility] [address] [place], [address] Creatinine [Mass/Vol] 1.3 mg/dL Normal 0.8-1.3 [facility] Comment on above: Performed By: #### L 500.4100, L501.2300, L100.0100, L500.4050 ####[facility] [address] [place], [address] ECRCL 47.85 ml/min Normal [facility] Comment on above: Performed By: #### L 500.4100, L501.2300, L100.0100, L500.4050 ####[facility] [address] [place], [address] GFR/1.73 sq M.predicted among non-blacks MDRD (S/P/Bld) [Vol rate/Area] 54 mL/min/{1.73_m2} Low >[address] [facility] Comment on above: Result Comment: mL/m in/1.73m2 CKD-EPI Creatinine Equation (2020) Performed By: #### L 500.4100, L501.2300, L100.0100, L500.4050 ####[facility] [address] [place], [address] Globulin (S) [Mass/Vol] 2.4 g/dL Normal 2.2-4.2 [facility] Comment on above: Performed By: #### L 500.4100, L501.2300, L100.0100, L500.4050 ####[facility] [address] [place], [address] Glucose [Mass/Vol] 93 mg/dL Normal 70-99 [facility] Comment on above: Performed By: #### L 500.4100, L501.2300, L100.0100, L500.4050 ####[facility] [address] [place], [address] Potassium [Moles/Vol] 4.1 mmol/L Normal 3.3-5.1 [facility] Comment on above: Performed By: #### L 500.4100, L501.2300, L100.0100, L500.4050 ####[facility] [address] [place], [address] Sodium [Moles/Vol] 138 mmol/L Normal 133-145 [facility] Comment on above: Performed By: #### L 500.4100, L501.2300, L100.0100, L500.4050 ####[facility] [address] [place], [address] T PROT 6.1 g/dL Normal 5.9-8.4 [facility] Comment on above: Performed By: #### L 500.4100, L501.2300, L100.0100, L500.4050 ####[facility] [address] [place], [address] Urea nitrogen [Mass/Vol] 15 mg/dL Normal 4-19 [facility] Comment on above: Performed By: #### L 500.4100, L501.2300, L100.0100, L500.4050 ####[facility] [address] [place], [address] Albumin [Mass/Vol] 4.3 g/dL Normal 3.4-4.8 [facility] Comment on above: Performed By: #### L 500.4050, L100.0100, L501.9520, L506.0400 ####[facility] [address] [place], [address] Albumin/Globulin [Mass ratio] 1.4 {ratio} Normal 0.9-2.4 [facility] Comment on above: Performed By: #### L 500.4050, L100.0100, L501.9520, L506.0400 ####[facility] [address] [place], [address] ALK PHOS 113 U/L Normal 40-129 [facility] Comment on above: Performed By: #### L 500.4050, L100.0100, L501.9520, L506.0400 ####[facility] [address] [place], [address] ALT [Catalytic activity/Vol] 15 U/L Normal <=46 [facility] Comment on above: Performed By: #### L 500.4050, L100.0100, L501.9520, L506.0400 ####[facility] [address] [place], [address] Anion gap [Moles/Vol] 15 mmol/L Normal 5-15 [facility] Comment on above: Performed By: #### L 500.4050, L100.0100, L501.9520, L506.0400 ####[facility] [address] [place], [address] AST [Catalytic activity/Vol] 31 U/L Normal <=37 [facility] Comment on above: Performed By: #### L 500.4050, L100.0100, L501.9520, L506.0400 ####[facility] [address] [place], [address] Bilirubin [Mass/Vol] 0.79 mg/dL Normal 0.00-1.30 [facility] Comment on above: Performed By: #### L 500.4050, L100.0100, L501.9520, L506.0400 ####[facility] [address] [place], [address] BUN/CRE 10.9 RATIO Normal 10-20 [facility] Comment on above: Performed By: #### L 500.4050, L100.0100, L501.9520, L506.0400 ####[facility] [address] [place], [address] Calcium [Mass/Vol] 10.3 mg/dL Normal 7.6-11.0 [facility] Comment on above: Performed By: #### L 500.4050, L100.0100, L501.9520, L506.0400 ####[facility] [address] [place], [address] Chloride [Moles/Vol] 97 mmol/L Normal 96-108 [facility] Comment on above: Performed By: #### L 500.4050, L100.0100, L501.9520, L506.0400 ####[facility] [address] [place], [address] CO2 [Moles/Vol] 24.0 mmol/L Normal 22.0-29.0 [facility] Comment on above: Performed By: #### L 500.4050, L100.0100, L501.9520, L506.0400 ####[facility] [address] [place], [address] Creatinine [Mass/Vol] 1.4 mg/dL High 0.8-1.3 [facility] Comment on above: Performed By: #### L 500.4050, L100.0100, L501.9520, L506.0400 ####[facility] [address] [place], [address] GFR/1.73 sq M.predicted among non-blacks MDRD (S/P/Bld) [Vol rate/Area] 48 mL/min/{1.73_m2} Low >[address] [facility] Comment on above: Result Comment: mL/m in/1.73m2 CKD-EPI Creatinine Equation (2020) Performed By: #### L 500.4050, L100.0100, L501.9520, L506.0400 ####[facility] [address] [place], [address] Globulin (S) [Mass/Vol] 3.2 g/dL Normal 2.2-4.2 [facility] Comment on above: Performed By: #### L 500.4050, L100.0100, L501.9520, L506.0400 ####[facility] [address] [place], [address] Glucose [Mass/Vol] 124 mg/dL High 70-99 [facility] Comment on above: Performed By: #### L 500.4050, L100.0100, L501.9520, L506.0400 ####[facility] [address] [place], [address] Potassium [Moles/Vol] 4.4 mmol/L Normal 3.3-5.1 [facility] Comment on above: Performed By: #### L 500.4050, L100.0100, L501.9520, L506.0400 ####[facility] [address] [place], [address] Sodium [Moles/Vol] 136 mmol/L Normal 133-145 [facility] Comment on above: Performed By: #### L 500.4050, L100.0100, L501.9520, L506.0400 ####[facility] [address] [place], [address] T PROT 7.5 g/dL Normal 5.9-8.4 [facility] Comment on above: Performed By: #### L 500.4050, L100.0100, L501.9520, L506.0400 ####[facility] [address] [place], [address] Urea nitrogen [Mass/Vol] 16 mg/dL Normal 4-19 [facility] Comment on above: Performed By: #### L 500.4050, L100.0100, L501.9520, L506.0400 ####[facility] [address] [place], [address] Echo Completeon 09-17-2024 Echo Complete Normal [facility] Eosinophil percentageOrdered By: Altaf Mayfield on 09-17-2024 Eosinophils/100 WBC (Bld) 3.1 % 0-5 [facility] Erythrocyte distribution wid th ratioOrdered By: Altaf Mayfield on 09-17-2024 Erythrocyte distribution width (RBC) [Ratio] 13.4 % 11.6-14.6 [facility] Erythrocyte distribution wid th standard deviationOrdered By: Altaf Mayfield on 09-17-2024 Erythrocyte distribution width (RBC) [Entitic vol] 45.7 fL High 35.1-43.9 [facility] Erythrocyte distribution width (RBC) [Ratio] 45.7 fl High 35.1-43.9 [facility] Estimation of creatinine ijeoma aranceOrdered By: Altaf Mayfield on 09-17-2024 Estimated Creatinine Clearance Calc 47.85 ml/min 50-250 [facility] Folates, (Folic Acid)on 08-24 FOLATES 8.53 ng/mL Normal 4.60-34.80 [facility] Comment on above: Order Comment: Has P atient had X-rays with Contrast this admission? NN Performed By: #### L 501.5200, L501.9520, L506.0250, L501.9985, L501.4021, L505.5000 ####[facility] [address] [place], [address] GFR/1.73 sq M.predicted mehran g non-blacks MDRD (S/P/Bld) [Vol rate/Area]Ordered By: Altaf Mayfield on 09-17-2024 Estimated GFR (MDRD) Non-Af Amer 54 Low >60 [facility] Comment on above: mL/min/1.73m2 CKD-EP I Creatinine Equation (2020) Glomerular filtration rate ( GFR) estimation/1.73 sq m using serum, plasma, or whole bOrdered By: Altaf Mayfield on 09-17-2024 GFR/1.73 sq M.predicted among non-blacks MDRD (S/P/Bld) [Vol rate/Area] 54 mL/min/{1.73_m2} Low >[address] [facility] Comment on above: mL/min/1.73m2 CKD-EP I Creatinine Equation (2020) Hematocrit Auto (Bld) [Volum e fraction]Ordered By: Altaf Mayfield on 09-17-2024 Hematocrit (Bld) [Volume fraction] 43.4 % 40-54 [facility] Hemoglobin A1con 09-17-2024 HbA1c (Bld) [Mass fraction] 6.1 % Normal <=5.6 [facility] Comment on above: Performed By: #### L 501.5200, L501.9520, L506.0250, L501.9985, L501.4021, L505.5000 ####[facility] [address] [place], [address] Hemoglobin measurementOrdere d By: Altaf Mayfield on 09-17-2024 Hemoglobin (Bld) [Mass/Vol] 14.3 g/dL 13.0-16.5 [facility] Immature granulocytes/100 WB C Auto (Bld)Ordered By: Altaf Mayfield on 09-17-2024 Immature granulocytes/100 WBC (Bld) 0.800 % 0.0-0.9 [facility] Comment on above: IG% - Immature Granu locytes (promyelocytes, myelocytes and metamyelocytes) > 1% indicates that a LEFT SHIFT is Present. L501.4021on 09-17-2024 Trop T High Sen 76 ng/L Invalid Interpretation Code <=22 [facility] Comment on above: Order Comment: Has P atient had X-rays with Contrast this admission? N Result Comment: Crit ical Result(s) Called at: by:??Results read back bysame.CALLED TO Ramandeep TOMLIN AT 0055 Performed By: #### L 501.5200, L501.9520, L506.0250, L501.9985, L501.4021, L505.5000 ####[facility] [address], [address] LDL calc ser/plasOrdered By: Altaf Mayfiled on 09-17-2024 Cholesterol in LDL [Mass/Vol] 134 mg/dL [facility] Comment on above: Praeephngb=623-746 m g/dL & Higher Osro=496 mg/dL or greater LDL Cholesterol, Calculated 134 mg/dL [facility] Comment on above: Tpnysqqkmx=825-376 m g/dL & Higher Rmmb=195 mg/dL or greater Laboratory - Chemistry and C hemistry - challengeOrdered By: Altaf Mayfield on 09-17-2024 AST [Catalytic activity/Vol] 25 U/L <38 [facility] Lipid Profileon 09-17-2024 CHOL:HDL 3.24 Normal [facility] Comment on above: Performed By: #### L 500.4100, L501.2300, L100.0100, L500.4050 ####[facility] [address] [place], [address] Cholesterol [Mass/Vol] 215 mg/dL High <=[address] [facility] Comment on above: Result Comment: Chol esterol level, Desirable <200 mg/dLBorderline high cholesterol 200-239 mg/dLHigh cholesterol >=240 mg/dLRecommendations of the NCEP Adult Treatment Panel for thefollowing risk-cutoff thresholds for the [place] health. Performed By: #### L 500.4100, L501.2300, L100.0100, L500.4050 ####[facility] [address] [place], [address] Cholesterol in HDL [Mass/Vol] 66 mg/dL Normal [facility] Comment on above: Result Comment: Liz onal Cholesterol Education Program (NCEP) guidelines:<40 mg/dL: Low HDL-cholesterol (major risk factor for CHD)>= 60 mg/dL: High HDL-cholesterol (negative risk factor forCHD)HDL-cholesterol is affected by a number of factors, e.g.smoking, exercise, hormones, sex and age. Performed By: #### L 500.4100, L501.2300, L100.0100, L500.4050 ####[facility] [address] [place], [address] Cholesterol in LDL [Mass/Vol] 134 mg/dL Normal [facility] Comment on above: Result Comment: Bord oflahm=319-734 mg/dL Higher Tfrv=781 mg/dL or greater Performed By: #### L 500.4100, L501.2300, L100.0100, L500.4050 ####[facility] [address] [place], [address] Cholesterol in VLDL [Mass/Vol] 15 mg/dL Normal 5-40 [facility] Comment on above: Performed By: #### L 500.4100, L501.2300, L100.0100, L500.4050 ####[facility] [address] [place], [address] Triglyceride [Mass/Vol] 76 mg/dL Normal [facility] Comment on above: Result Comment: The drugs N-Acetylcysteine and Metamizole may falselydepress this assay.Normal range: <150 mg/dLBorderline High: 150-199 mg/dLHigh: 200-499 mg/dLVery High: >500 mg/dL Performed By: #### L 500.4100, L501.2300, L100.0100, L500.4050 ####[facility] [address] [place], [address] Lymphocytes Auto (Unsp spec) [#/Vol]Ordered By: Altaf Mayfield on 09-17-2024 Lymphocytes (Bld) [#/Vol] 0.66 10*3/uL Low 0.83-4.5 1 [facility] Lymphocytes/100 WBC Auto (Un sp spec)Ordered By: Altaf Mayfield on 09-17-2024 Lymphocytes/100 WBC (Bld) 18.4 % Low 19-41 [facility] MCV (mean corpuscular volume ) determinationOrdered By: Altaf Mayfield on 09-17-2024 MCV (RBC) [Entitic vol] 93.7 fL 80-94 [facility] Magnesiumon 09-17-2024 Magnesium [Mass/Vol] 2.2 mg/dL Normal 1.5-2.2 [facility] Comment on above: Order Comment: Has P atient had X-rays with Contrast this admission? N Performed By: #### L 501.5200, L501.9520, L506.0250, L501.9985, L501.4021, L505.5000 ####[facility] [address] [place], [address] Mean corpuscular hemoglobin (MCH) determinationOrdered By: Altaf Mayfield on 09-17-2024 MCH (RBC) [Entitic mass] 30.9 pg 27.0-32.0 [facility] Mean corpuscular hemoglobin concentration (MCHC) determinationOrdered By: Altaf Mayfield on 09-17-2024 MCHC (RBC) [Mass/Vol] 32.9 g/dL 32-36 [facility] Mean platelet volume determi nationOrdered By: Altaf Mayfield on 09-17-2024 Platelet mean volume (Bld) [Entitic vol] 10.3 fL 6.2-12.0 [facility] Monocyte percentageOrdered B y: Altaf Mayfield on 09-17-2024 Monocytes/100 WBC (Bld) 12.3 % High 0-10 [facility] Neutrophil percentageOrdered By: Altaf Mayfield on 09-17-2024 Neutrophils/100 WBC (Bld) 64.0 % 47-70 [facility] No Panel InformationOrdered By: Altaf Mayfield on 09-17-2024 25 U/L <38 [facility] Delta Troponin T 1 [facility] Comment on above: Potential recent RI, CKD,LVH* Consider a third Troponin for Suspected ACSIf clinical suspicion for ACS is high, suggest getting a third troponin. Otherwise, stress test or CTCA. 1 [facility] Nucleated red blood cell per centageOrdered By: Altaf Mayfield on 09-17-2024 Nucleated RBC/100 WBC (Bld) [Ratio] 0 % 0-5 [facility] Phosphoruson 09-17-2024 Phosphate [Mass/Vol] 2.9 mg/dL Normal 2.7-4.5 [facility] Comment on above: Performed By: #### L 500.4100, L501.2300, L100.0100, L500.4050 ####[facility] [address] [place], [address] Platelet countOrdered By: David Mayfield on 09-17-2024 Platelets (Bld) [#/Vol] 140 10*3/uL Low 150-450 [facility] RBC Auto (Bld) [#/Vol]Ordere d By: Altaf Mayfield on 09-17-2024 RBC (Bld) [#/Vol] 4.63 10*6/uL 4.6-6.2 [facility] Screening total cholesterol/ high density lipoprotein (HDL) cholesterol ratioOrdered By: Altaf Mayfield on 09-17-2024 Cholesterol.total/Cholest devorah in HDL [Mass ratio] 3.24 {ratio} [facility] Serum creatinine measurement (mass/volume)Ordered By: Altaf Mayfield on 09-17-2024 Creatinine [Mass/Vol] 1.3 mg/dL 0.70-1.20 [facility] Serum globulin measurementOr dered By: Altaf Mayfield on 09-17-2024 Globulin (S) [Mass/Vol] 2.4 g/dL 2.2-4.2 [facility] Serum glucose measurement (m ass/volume)Ordered By: Altaf Mayfield on 09-17-2024 Glucose [Mass/Vol] 93 mg/dL 70-99 [facility] Serum or plasma alanine meraz otransferase (ALT) measurementOrdered By: Altaf Mayfield on 09-17-2024 ALT [Catalytic activity/Vol] 11 U/L <47 [facility] Serum or plasma albumin ana urement (mass/volume)Ordered By: Altaf Mayfield on 09-17-2024 Albumin [Mass/Vol] 3.7 g/dL 3.4-4.8 [facility] Serum or plasma albumin/glob ulin mass ratioOrdered By: Altaf Mayfield on 09-17-2024 Albumin/Globulin [Mass ratio] 1.5 {ratio} 0.9-2.4 [facility] Serum or plasma alkaline keenan sphatase measurementOrdered By: Altaf Mayfield on 09-17-2024 ALP [Catalytic activity/Vol] 95 U/L 40-129 [facility] Serum or plasma anion gap de termination (moles/volume)Ordered By: Altaf Mayfield on 09-17-2024 Anion gap [Moles/Vol] 12 mmol/L 5-15 [facility] Serum or plasma calcium ana urement (mass/volume)Ordered By: Altaf Mayfield on 09-17-2024 Calcium [Mass/Vol] 9.5 mg/dL 7.6-11.0 [facility] Serum or plasma cholesterol in HDL measurement (mass/volume)Ordered By: Altaf Mayfield on 09-17-2024 Cholesterol in HDL [Mass/Vol] 66 mg/dL >40 [facility] Comment on above: National Cholesterol Education Program (NCEP) guidelines:<40 mg/dL: Low HDL-cholesterol (major risk factor for CHD)>= 60 mg/dL: High HDL-cholesterol (negative risk factor for CHD)HDL-cholesterol is affected by a number of factors, e.g. smoking, exercise, hormones, sex and age. Serum or plasma cholesterol measurement (mass/volume)Ordered By: Altaf Mayfield on 09-17-2024 Cholesterol [Mass/Vol] 215 mg/dL High <[address] [facility] Comment on above: Cholesterol level, D esirable <200 mg/dLBorderline high cholesterol 200-239 mg/dLHigh cholesterol >=240 mg/dLRecommendations of the NCEP Adult Treatment Panel for the following risk-cutoff thresholds for the [place] population. Serum or plasma potassium me asurementOrdered By: Altaf Mayfield on 09-17-2024 Potassium [Moles/Vol] 4.1 mmol/L 3.3-5.1 [facility] Serum or plasma sodium measu rement (moles/volume)Ordered By: Altaf Mayfield on 09-17-2024 Sodium [Moles/Vol] 138 mmol/L 133-145 [facility] Serum or plasma urea nitroge n measurement (mass/volume)Ordered By: Altaf Mayfield on 09-17-2024 Urea nitrogen [Mass/Vol] 15 mg/dL 4-19 [facility] T4 Free Directon 09-17-2024 T4 FREE DIRECT 1.40 ng/dL Normal 0.76-1.46 [facility] Comment on above: Performed By: #### L 500.4050, L100.0100, L501.9520, L506.0400 ####[facility] [address] [place], [address] Thyroid Stim Hormone (TSH)on 09-17-2024 TSH 2.780 uIU/mL Normal 0.300-4.200 [facility] Comment on above: Performed By: #### L 500.4050, L100.0100, L501.9520, L506.0400 ####[facility] [address] [place], [address] TSH 3.100 uIU/mL Normal 0.300-4.200 [facility] Comment on above: Order Comment: Has P shmuel had X-rays with Contrast this admission? N Performed By: #### L 501.5200, L501.9520, L506.0250, L501.9985, L501.4021, L505.5000 ####[facility] [address] [place], [address] Total proteinOrdered By: Rahat Mayfield on 09-17-2024 Protein [Mass/Vol] 6.1 g/dL 5.9-8.4 [facility] Triglycerides measurementOrd ered By: Altaf Mayfield on 09-17-2024 Triglyceride [Mass/Vol] 76 mg/dL <199 [facility] Comment on above: The drugs N-Acetylcy steine and Metamizole may falsely depress this assay. Normal range: <150 mg/dLBorderline High: 150-199 mg/dLHigh: 200-499 mg/dLVery High: >500 mg/dL Troponin T.cardiac High sens itivity method [Mass/Vol]Ordered By: Altaf Mayfield on 09-17-2024 Troponin T High Sensitivity 4 Hour 69 ng/L High <22 [facility] Comment on above: DIS INOPrevious repo rted result: 69 ng/LEdited by: AUTOINS on 09/23/24:0432 AMENDED REPORT 09/23/24 0432 Trop T HS 4HR previously reported as: 69 *H ng/L Troponin T High Sensitivity 2 Hour 77 ng/L High <22 [facility] Comment on above: DIS INOPrevious repo rted result: 77 ng/LEdited by: AUTOINS on 09/23/24:0432 AMENDED REPORT 09/23/24 0432 Trop T HS 2HR previously reported as: 77 *H ng/L Troponin T.cardiac [Mass/vol ume] in Serum or Plasma by High sensitivity methodOrdered By: Altaf Mayfield on 09-17-2024 Troponin T.cardiac High sensitivity method [Mass/Vol] 69 ng/L High <22 [facility] Comment on above: DIS INOPrevious repo rted result: 69 ng/LEdited by: AUTOINS on 09/23/24:0432 AMENDED REPORT 09/23/24 0432 Trop T HS 4HR previously reported as: 69 *H ng/L Troponin T.cardiac High sensitivity method [Mass/Vol] 77 ng/L High <22 [facility] Comment on above: DIS INOPrevious repo rted result: 77 ng/LEdited by: AUTOINS on 09/23/24:0432 AMENDED REPORT 09/23/24 0432 Trop T HS 2HR previously reported as: 77 *H ng/L White blood cell (WBC) count Ordered By: Altaf Mayfield on 09-17-2024 WBC (Bld) [#/Vol] 3.6 10*3/uL Low 4.4-11.0 [facility] 12 Lead EKGon 09-16-2024 12 Lead EKG Normal [facility] Absolute lymphocyte countOrd ered By: Alberto Mustafa on 09-16-2024 Lymphocytes Auto (Unsp spec) [#/Vol] 0.72 10*3/uL Low 0.83-4.51 [facility] Absolute neutrophil countOrd ered By: Alberto Mustafa on 09-16-2024 Neutrophils (Bld) [#/Vol] 3.9 10*3/uL 2.0-7.7 [facility] Automated lymphocyte count a s percentage of total leukocytesOrdered By: Alberto Mustafa on 09-16-2024 Lymphocytes/100 WBC Auto (Unsp spec) 13.9 % Low 19-41 [facility] BUN/creatinine ratioOrdered By: Alberto Mustafa on 09-16-2024 Urea nitrogen/Creatinine [Mass ratio] 10.9 mg/mg 10-20 [facility] Basophil percentageOrdered B y: Alberto Mustafa on 09-16-2024 Basophils/100 WBC (Bld) 0.8 % 0-1 [facility] Bilirubin Test strip Ql (U)O rdered By: Maliha Youngblood on 09-16-2024 Bilirubin Ql (U) Negative Negative [facility] Bilirubin, totalOrdered By: Alberto Mustafa on 09-16-2024 Bilirubin [Mass/Vol] 0.79 mg/dL 0.00-1.30 [facility] Brain/Head without Contrasto n 09-16-2024 Brain/Head without Contrast Normal [facility] CBC W/Diff, Automatedon 08-24 Absolute Lymph 0.72 X10 3/uL Low 0.83-4.51 [facility] Comment on above: Performed By: #### L 500.4050, L100.0100, L501.9520, L506.0400 ####[facility] [address] [place], [address] Absolute Neut 3.9 X10 3/uL Normal 2.0-7.7 [facility] Comment on above: Performed By: #### L 500.4050, L100.0100, L501.9520, L506.0400 ####[facility] [address] [place], [address] Basophils/100 WBC (Bld) 0.8 % Normal 0-1 [facility] Comment on above: Performed By: #### L 500.4050, L100.0100, L501.9520, L506.0400 ####[facility] [address] [place], [address] Eosinophils/100 WBC (Bld) 1.2 % Normal 0-5 [facility] Comment on above: Performed By: #### L 500.4050, L100.0100, L501.9520, L506.0400 ####[facility] [address] [place], [address] Erythrocyte distribution width (RBC) [Ratio] 13.2 % Normal 11.6-14.6 [facility] Comment on above: Performed By: #### L 500.4050, L100.0100, L501.9520, L506.0400 ####[facility] [address] [place], [address] Hematocrit (Bld) [Volume fraction] 49.6 % Normal 40-54 [facility] Comment on above: Performed By: #### L 500.4050, L100.0100, L501.9520, L506.0400 ####[facility] [address] [place], [address] Hemoglobin (Bld) [Mass/Vol] 15.9 g/dL Normal 13.0-16.5 [facility] Comment on above: Performed By: #### L 500.4050, L100.0100, L501.9520, L506.0400 ####[facility] [address] [place], [address] IG% 0.600 Normal 0.0-0.9 [facility] Comment on above: Result Comment: IG% - Immature Granulocytes (promyelocytes, myelocytes andmetamyelocytes) > 1% indicates that a LEFT SHIFT is Present. Performed By: #### L 500.4050, L100.0100, L501.9520, L506.0400 ####[facility] [address] [place], [address] Lymphocytes/100 WBC (Bld) 13.9 % Low 19-41 [facility] Comment on above: Performed By: #### L 500.4050, L100.0100, L501.9520, L506.0400 ####[facility] [address] [place], [address] MCH (RBC) [Entitic mass] 30.0 pg Normal 27.0-32.0 [facility] Comment on above: Performed By: #### L 500.4050, L100.0100, L501.9520, L506.0400 ####[facility] [address] [place], [address] MCHC (RBC) [Mass/Vol] 32.1 g/dL Normal 32-36 [facility] Comment on above: Performed By: #### L 500.4050, L100.0100, L501.9520, L506.0400 ####[facility] [address] [place], [address] MCV (RBC) [Entitic vol] 93.6 fL Normal 80-94 [facility] Comment on above: Performed By: #### L 500.4050, L100.0100, L501.9520, L506.0400 ####[facility] [address] [place], [address] Monocytes/100 WBC (Bld) 8.1 % Normal 0-10 [facility] Comment on above: Performed By: #### L 500.4050, L100.0100, L501.9520, L506.0400 ####[facility] [address] [place], [address] Neutrophils/100 WBC (Bld) 75.4 % High 47-70 [facility] Comment on above: Performed By: #### L 500.4050, L100.0100, L501.9520, L506.0400 ####[facility] [address] [place], [address] Nucleated RBC (Bld) [#/Vol] 0 10*3/uL Normal 0-5 [facility] Comment on above: Performed By: #### L 500.4050, L100.0100, L501.9520, L506.0400 ####[facility] [address] [place], [address] Platelet mean volume (Bld) [Entitic vol] 10.5 fL Normal 6.2-12.0 [facility] Comment on above: Performed By: #### L 500.4050, L100.0100, L501.9520, L506.0400 ####[facility] [address] [place], [address] Platelets (Bld) [#/Vol] 169 10*3/uL Normal 150-450 [facility] Comment on above: Performed By: #### L 500.4050, L100.0100, L501.9520, L506.0400 ####[facility] [address] [place], [address] RBC (Bld) [#/Vol] 5.30 10*6/uL Normal 4.6-6.2 [facility] Comment on above: Performed By: #### L 500.4050, L100.0100, L501.9520, L506.0400 ####[facility] [address] [place], [address] RDW SD 45.5 fl High 35.1-43.9 [facility] Comment on above: Performed By: #### L 500.4050, L100.0100, L501.9520, L506.0400 ####[facility] [address] [place], [address] WBC (Bld) [#/Vol] 5.2 10*3/uL Normal 4.4-11.0 [facility] Comment on above: Performed By: #### L 500.4050, L100.0100, L501.9520, L506.0400 ####[facility] [address] [place], [address] Absolute Lymph 0.58 X10 3/uL Low 0.83-4.51 [facility] Comment on above: Performed By: #### L 500.4050, L100.0100 ####[facility] [address] [place], [address] Absolute Neut 3.8 X10 3/uL Normal 2.0-7.7 [facility] Comment on above: Performed By: #### L 500.4050, L100.0100 ####[facility] [address] [place], [address] Basophils/100 WBC (Bld) 0.4 % Normal 0-1 [facility] Comment on above: Performed By: #### L 500.4050, L100.0100 ####[facility] [address] [place], [address] Eosinophils/100 WBC (Bld) 1.2 % Normal 0-5 [facility] Comment on above: Performed By: #### L 500.4050, L100.0100 ####[facility] [address] [place], [address] Erythrocyte distribution width (RBC) [Ratio] 13.2 % Normal 11.6-14.6 [facility] Comment on above: Performed By: #### L 500.4050, L100.0100 ####[facility] [address] [place], [address] Hematocrit (Bld) [Volume fraction] 46.8 % Normal 40-54 [facility] Comment on above: Performed By: #### L 500.4050, L100.0100 ####[facility] [address] [place], [address] Hemoglobin (Bld) [Mass/Vol] 15.4 g/dL Normal 13.0-16.5 [facility] Comment on above: Performed By: #### L 500.4050, L100.0100 ####[facility] [address] [place], [address] IG% 0.600 Normal 0.0-0.9 [facility] Comment on above: Result Comment: IG% - Immature Granulocytes (promyelocytes, myelocytes andmetamyelocytes) > 1% indicates that a LEFT SHIFT is Present. Performed By: #### L 500.4050, L100.0100 ####[facility] [address] [place], [address] Lymphocytes/100 WBC (Bld) 12.0 % Low 19-41 [facility] Comment on above: Performed By: #### L 500.4050, L100.0100 ####[facility] [address] [place], [address] MCH (RBC) [Entitic mass] 30.4 pg Normal 27.0-32.0 [facility] Comment on above: Performed By: #### L 500.4050, L100.0100 ####[facility] [address] [place], [address] MCHC (RBC) [Mass/Vol] 32.9 g/dL Normal 32-36 [facility] Comment on above: Performed By: #### L 500.4050, L100.0100 ####[facility] [address] [place], [address] MCV (RBC) [Entitic vol] 92.3 fL Normal 80-94 [facility] Comment on above: Performed By: #### L 500.4050, L100.0100 ####[facility] [address] [place], [address] Monocytes/100 WBC (Bld) 8.2 % Normal 0-10 [facility] Comment on above: Performed By: #### L 500.4050, L100.0100 ####[facility] [address] [place], [address] Neutrophils/100 WBC (Bld) 77.6 % High 47-70 [facility] Comment on above: Performed By: #### L 500.4050, L100.0100 ####[facility] [address] [place], [address] Nucleated RBC (Bld) [#/Vol] 0 10*3/uL Normal 0-5 [facility] Comment on above: Performed By: #### L 500.4050, L100.0100 ####[facility] [address] [place], [address] Platelet mean volume (Bld) [Entitic vol] 9.8 fL Normal 6.2-12.0 [facility] Comment on above: Performed By: #### L 500.4050, L100.0100 ####[facility] [address] [place], [address] Platelets (Bld) [#/Vol] 155 10*3/uL Normal 150-450 [facility] Comment on above: Performed By: #### L 500.4050, L100.0100 ####[facility] [address] [place], [address] RBC (Bld) [#/Vol] 5.07 10*6/uL Normal 4.6-6.2 [facility] Comment on above: Performed By: #### L 500.4050, L100.0100 ####[facility] [address] [place], [address] RDW SD 45.1 fl High 35.1-43.9 [facility] Comment on above: Performed By: #### L 500.4050, L100.0100 ####[facility] [address] [place], [address] WBC (Bld) [#/Vol] 4.9 10*3/uL Normal 4.4-11.0 [facility] Comment on above: Performed By: #### L 500.4050, L100.0100 ####[facility] [address] [place], [address] Carbon dioxide measurementOr dered By: Alberto Mustafa on 09-16-2024 CO2 [Moles/Vol] 24.0 mmol/L 22.0-29.0 [facility] Chest 1 View (Portable)on Chest 1 View (Portable) Normal [facility] Chloride measurementOrdered By: Alberto Mustafa on 09-16-2024 Chloride [Moles/Vol] 97 mmol/L 96-108 [facility] Comprehensive Metabolic Prof ilon 09-16-2024 Albumin [Mass/Vol] 4.1 g/dL Normal 3.4-4.8 [facility] Comment on above: Performed By: #### L 500.4050, L100.0100 ####[facility] [address] [place], [address] Albumin/Globulin [Mass ratio] 1.3 {ratio} Normal 0.9-2.4 [facility] Comment on above: Performed By: #### L 500.4050, L100.0100 ####[facility] [address] [place], [address] ALK PHOS 115 U/L Normal 40-129 [facility] Comment on above: Performed By: #### L 500.4050, L100.0100 ####[facility] [address] [place], [address] ALT [Catalytic activity/Vol] 12 U/L Normal <=46 [facility] Comment on above: Performed By: #### L 500.4050, L100.0100 ####[facility] [address] [place], [address] Anion gap [Moles/Vol] 10 mmol/L Normal 5-15 [facility] Comment on above: Performed By: #### L 500.4050, L100.0100 ####[facility] [address] [place], [address] AST [Catalytic activity/Vol] 27 U/L Normal <=37 [facility] Comment on above: Performed By: #### L 500.4050, L100.0100 ####[facility] [address] [place], [address] Bilirubin [Mass/Vol] 0.79 mg/dL Normal 0.00-1.30 [facility] Comment on above: Performed By: #### L 500.4050, L100.0100 ####[facility] [address] [place], [address] BUN/CRE 12.2 RATIO Normal 10-20 [facility] Comment on above: Performed By: #### L 500.4050, L100.0100 ####[facility] [address] [place], [address] Calcium [Mass/Vol] 10.2 mg/dL Normal 7.6-11.0 [facility] Comment on above: Performed By: #### L 500.4050, L100.0100 ####[facility] [address] [place], [address] Chloride [Moles/Vol] 99 mmol/L Normal 96-108 [facility] Comment on above: Performed By: #### L 500.4050, L100.0100 ####[facility] [address] [place], [address] CO2 [Moles/Vol] 27.4 mmol/L Normal 22.0-29.0 [facility] Comment on above: Performed By: #### L 500.4050, L100.0100 ####[facility] [address] [place], [address] Creatinine [Mass/Vol] 1.3 mg/dL Normal 0.8-1.3 [facility] Comment on above: Performed By: #### L 500.4050, L100.0100 ####[facility] [address] [place], [address] GFR/1.73 sq M.predicted among non-blacks MDRD (S/P/Bld) [Vol rate/Area] 54 mL/min/{1.73_m2} Low >[address] [facility] Comment on above: Result Comment: mL/m in/1.73m2 CKD-EPI Creatinine Equation (2020) Performed By: #### L 500.4050, L100.0100 ####[facility] [address] [place], [address] Globulin (S) [Mass/Vol] 3.1 g/dL Normal 2.2-4.2 [facility] Comment on above: Performed By: #### L 500.4050, L100.0100 ####[facility] [address] [place], [address] Glucose [Mass/Vol] 138 mg/dL High 70-99 [facility] Comment on above: Performed By: #### L 500.4050, L100.0100 ####[facility] [address] [place], [address] Potassium [Moles/Vol] 4.4 mmol/L Normal 3.3-5.1 [facility] Comment on above: Performed By: #### L 500.4050, L100.0100 ####[place] [facility] [address] [place], [address] Sodium [Moles/Vol] 136 mmol/L Normal 133-145 [facility] Comment on above: Performed By: #### L 500.4050, L100.0100 ####[facility] [address] [place], [address] T PROT 7.1 g/dL Normal 5.9-8.4 [facility] Comment on above: Performed By: #### L 500.4050, L100.0100 ####[facility] [address] [place], [address] Urea nitrogen [Mass/Vol] 16 mg/dL Normal 4-19 [facility] Comment on above: Performed By: #### L 500.4050, L100.0100 ####[facility] [address] [place], [address] Creatinine [Moles/Vol]Ordere d By: Alberto Mustafa on 09-16-2024 Creatinine [Mass/Vol] 1.4 mg/dL High 0.8-1.3 [facility] Emergency Department Summary on 09-16-2024 Emergency Department Summary Normal [facility] Eosinophil percentageOrdered By: Alberto Mustafa on 09-16-2024 Eosinophils/100 WBC (Bld) 1.2 % 0-5 [facility] Epithelial cells.squamous LM Ql (Urine sed)Ordered By: Maliha Youngblood on 09-16-2024 Epithelial cells.squamous LM.HPF (Urine sed) [#/Area] 0 /[HPF] 0-5 [facility] Erythrocyte distribution wid th ratioOrdered By: Alberto Mustafa on 09-16-2024 Erythrocyte distribution width (RBC) [Ratio] 13.2 % 11.6-14.6 [facility] Erythrocyte distribution wid th standard deviationOrdered By: Alberto Mustafa on 09-16-2024 Erythrocyte distribution width (RBC) [Entitic vol] 45.5 fL High 35.1-43.9 [facility] Erythrocyte distribution width (RBC) [Ratio] 45.5 fl High 35.1-43.9 [facility] Folate measurementOrdered By : Altaf Mayfield on 09-16-2024 Folate 8.53 ng/mL 4.60-34.80 [facility] GFR/1.73 sq M.predicted mehran g non-blacks MDRD (S/P/Bld) [Vol rate/Area]Ordered By: Alberto Mustafa on 09-16-2024 Estimated GFR (MDRD) Non-Af Amer 48 Low >60 [facility] Comment on above: mL/min/1.73m2 CKD-EP I Creatinine Equation (2020) Glomerular filtration rate ( GFR) estimation/1.73 sq m using serum, plasma, or whole bOrdered By: Alberto Mustafa on 09-16-2024 GFR/1.73 sq M.predicted among non-blacks MDRD (S/P/Bld) [Vol rate/Area] 48 mL/min/{1.73_m2} Low >[address] [facility] Comment on above: mL/min/1.73m2 CKD-EP I Creatinine Equation (2020) Glucose Ql (U)Ordered By: Kellee Youngblood on 09-16-2024 Urine Glucose (UA) Normal mg/dl Normal [facility] H AND P Exam - Hospitaliston 09-16-2024 H&P Exam - Hospitalist Normal [facility] Hematocrit Auto (Bld) [Volum e fraction]Ordered By: Alberto Mustafa on 09-16-2024 Hematocrit (Bld) [Volume fraction] 49.6 % 40-54 [facility] Hemoglobin A1c percentageOrd ered By: Altaf Mayfield on 09-16-2024 HbA1c (Bld) [Mass fraction] 6.1 % >5.7 [facility] Hemoglobin measurementOrdere d By: Alberto Mustafa on 09-16-2024 Hemoglobin (Bld) [Mass/Vol] 15.9 g/dL 13.0-16.5 [facility] Immature granulocytes/100 WB C Auto (Bld)Ordered By: Alberto Mustafa on 09-16-2024 Immature granulocytes/100 WBC (Bld) 0.600 % 0.0-0.9 [facility] Comment on above: IG% - Immature Granu locytes (promyelocytes, myelocytes and metamyelocytes) > 1% indicates that a LEFT SHIFT is Present. Ketones Test strip Ql (U)Ord ered By: Maliha Youngblood on 09-16-2024 Ketones Ql (U) 5 mg/dl High Negative [facility] L501.4021on 09-16-2024 Trop T High Sen 57 ng/L Invalid Interpretation Code <=22 [facility] Comment on above: Order Comment: Comme nts: draw at 15:05 Result Comment: Crit ical Result(s) Called at 09/16/2024-16:35 by Prosper Meeks??Results read back by same. Performed By: #### L 501.4021 ####[facility] [address] [place], [place], [address] Trop T High Sen 62 ng/L Invalid Interpretation Code <=22 [facility] Comment on above: Result Comment: Crit ical Result(s) Called at 09/16/2024 by Prosper Garces??toDevorah Jarack Results read back by same. Performed By: #### L 501.4021 ####[facility] [address] [place], [place], [id number] Laboratory - Chemistry and C hemistry - challengeOrdered By: Alberto Mustafa on 09-16-2024 AST [Catalytic activity/Vol] 31 U/L <38 [facility] Lymphocytes Auto (Unsp spec) [#/Vol]Ordered By: Alberto Mustafa on 09-16-2024 Lymphocytes (Bld) [#/Vol] 0.72 10*3/uL Low 0.83-4.5 1 [facility] Lymphocytes/100 WBC Auto (Un sp spec)Ordered By: Alberto Mustafa on 09-16-2024 Lymphocytes/100 WBC (Bld) 13.9 % Low 19-41 [facility] MCV (mean corpuscular volume ) determinationOrdered By: Alberto Mustafa on 09-16-2024 MCV (RBC) [Entitic vol] 93.6 fL 80-94 [facility] Magnesium (Unsp spec) [Mass/ Vol]Ordered By: Altaf Mayfield on 09-16-2024 Magnesium [Mass/Vol] 2.2 mg/dL 1.5-2.2 [facility] Magnesium measurement (mass/ volume)Ordered By: Altaf Mayfield on 09-16-2024 Magnesium (Unsp spec) [Mass/Vol] 2.2 mg/dL 1.5-2.2 [facility] Mean corpuscular hemoglobin (MCH) determinationOrdered By: Alberto Mustafa on 09-16-2024 MCH (RBC) [Entitic mass] 30.0 pg 27.0-32.0 [facility] Mean corpuscular hemoglobin concentration (MCHC) determinationOrdered By: Alberto Mustafa on 09-16-2024 MCHC (RBC) [Mass/Vol] 32.1 g/dL 32-36 [facility] Mean platelet volume determi nationOrdered By: Alberto Mustafa on 09-16-2024 Platelet mean volume (Bld) [Entitic vol] 10.5 fL 6.2-12.0 [facility] Microscopic analysis of urin e for red blood cells (RBC)Ordered By: Maliha Youngblood on 09-16-2024 Microscopic analysis of urine for red blood cells (RBC) 0 SEEN /hpf 0-5 [facility] Urine RBC 0 SEEN /hpf 0-5 [facility] Monocyte percentageOrdered B y: Alberto Mustafa on 09-16-2024 Monocytes/100 WBC (Bld) 8.1 % 0-10 [facility] Mucus LM Ql (Urine sed)Order ed By: Maliha Youngblood on 09-16-2024 Mucus Ql (Urine sed) 0 SEEN /hpf [facility] Neutrophil percentageOrdered By: Alberto Mustafa on 09-16-2024 Neutrophils/100 WBC (Bld) 75.4 % High 47-70 [facility] Nitrite Test strip Ql (U)Ord ered By: Maliha Youngblood on 09-16-2024 Nitrite Ql (U) Negative Negative [facility] No Panel InformationOrdered By: Altaf Mayfield on 09-16-2024 Troponin T High Sensitivity 76 ng/L High <22 [facility] Comment on above: Delta: 57 on 5-1523Critical Result(s) Called at: by: Results read back by same.CALLED TO Ramandeep TOMLIN AT 0055 76 ng/L High <22 [facility] No Panel InformationOrdered By: Alberto Mustafa on 09-16-2024 31 U/L <38 [facility] Nucleated red blood cell per centageOrdered By: Alberto Mustafa on 09-16-2024 Nucleated RBC/100 WBC (Bld) [Ratio] 0 % 0-5 [facility] Platelet countOrdered By: Janette Mustafa on 09-16-2024 Platelets (Bld) [#/Vol] 169 10*3/uL 150-450 [facility] Protein Test strip Ql (U)Ord ered By: Maliha Youngblood on 09-16-2024 Protein Ql (U) 15 mg/dl High Negative [facility] RBC Auto (Bld) [#/Vol]Ordere d By: Alberto Mustafa on 09-16-2024 RBC (Bld) [#/Vol] 5.30 10*6/uL 4.6-6.2 [facility] Serum globulin measurementOr dered By: Alberto Mustafa on 09-16-2024 Globulin (S) [Mass/Vol] 3.2 g/dL 2.2-4.2 [facility] Serum glucose measurement (m ass/volume)Ordered By: Alberto Mustafa on 09-16-2024 Glucose [Mass/Vol] 124 mg/dL High 70-99 [facility] Serum or plasma alanine meraz otransferase (ALT) measurementOrdered By: Alberto Mustafa on 09-16-2024 ALT [Catalytic activity/Vol] 15 U/L <47 [facility] Serum or plasma albumin ana urement (mass/volume)Ordered By: Alberto Mustafa on 09-16-2024 Albumin [Mass/Vol] 4.3 g/dL 3.4-4.8 [facility] Serum or plasma albumin/glob ulin mass ratioOrdered By: Alberto Mustafa on 09-16-2024 Albumin/Globulin [Mass ratio] 1.4 {ratio} 0.9-2.4 [facility] Serum or plasma alkaline keenan sphatase measurementOrdered By: Alberto Mustafa on 09-16-2024 ALP [Catalytic activity/Vol] 113 U/L 40-129 [facility] Serum or plasma anion gap de termination (moles/volume)Ordered By: Alberto Mustafa on 09-16-2024 Anion gap [Moles/Vol] 15 mmol/L 5-15 [facility] Serum or plasma calcium ana urement (mass/volume)Ordered By: Alberto Mustafa on 09-16-2024 Calcium [Mass/Vol] 10.3 mg/dL 7.6-11.0 [facility] Serum or plasma creatinine m easurement (moles/volume)Ordered By: Alberto Mustafa on 09-16-2024 Creatinine [Moles/Vol] 1.4 mg/dL High 0.8-1.[address] [facility] Serum or plasma potassium me asurementOrdered By: Alberto Mustafa on 09-16-2024 Potassium [Moles/Vol] 4.4 mmol/L 3.3-5.1 [facility] Serum or plasma sodium measu rement (moles/volume)Ordered By: Alberto Mustafa on 09-16-2024 Sodium [Moles/Vol] 136 mmol/L 133-145 [facility] Serum or plasma urea nitroge n measurement (mass/volume)Ordered By: Alberto Mustafa on 09-16-2024 Urea nitrogen [Mass/Vol] 16 mg/dL 4-19 [facility] Spine Cervical without Contr ason 09-16-2024 Spine Cervical without Contras Normal [facility] Spine Lumbar without Contras ton 09-16-2024 Spine Lumbar without Contrast Normal [facility] Squamous epithelial cells de tection in urine sediment by light microscopyOrdered By: Maliha Youngblood on 09-16-2024 Epithelial cells.squamous LM Ql (Urine sed) 0 SEEN /hpf 0-5 [facility] T4 freeOrdered By: Alberto nick on 09-16-2024 Free T4 [Mass/Vol] 1.40 ng/dL 0.76-1.46 [facility] TSH DL <= 0.005 mIU/L QnOrde red By: Altaf Mayfield on 09-16-2024 Thyroid Stimulating Hormone (TSH) 3.100 uIU/mL 0.300-4.200 [facility] TSH Qn 3.100 uIU/mL 0.300-4.200 [facility] TSH DL <= 0.005 mIU/L QnOrde red By: Alberto Mustafa on 09-16-2024 Thyroid Stimulating Hormone (TSH) 2.780 uIU/mL 0.300-4.200 [facility] TSH Qn 2.780 uIU/mL 0.300-4.200 [facility] Total proteinOrdered By: Jersey Mustafa on 09-16-2024 Protein [Mass/Vol] 7.5 g/dL 5.9-8.4 [facility] Urinalysis, Completeon 09-16 RBC 0 SEEN Normal 0-5 [facility] Comment on above: Order Comment: CLEAN CATCH Performed By: #### L 400.0001 ####[facility] [address] [place], [address] BACTERIA 0 SEEN Normal None Seen [facility] Comment on above: Order Comment: CLEAN CATCH Performed By: #### L 400.0001 ####[facility] [address] [place], [address] EPI,SQUAMOUS 0 SEEN Normal 0-5 [facility] Comment on above: Order Comment: CLEAN CATCH Performed By: #### L 400.0001 ####[facility] [address] [place], [address] Mucus Ql (Urine sed) 0 SEEN Normal [facility] Comment on above: Order Comment: CLEAN CATCH Performed By: #### L 400.0001 ####[facility] [address] [place], [address] WBC 0 SEEN Normal 0-5 [facility] Comment on above: Order Comment: CLEAN CATCH Performed By: #### L 400.0001 ####[facility] [address] [place], [address] Urine Drug Screen (VISTA)on 09-16-2024 AMPHETAMINES Normal <1000 ng/mL [facility] Comment on above: Result Comment: EDIE ENT DICHARGED SPECIMEN NO LONGER IN LAB Performed By: #### L 501.5200, L501.9520, L506.0250, L501.9985, L501.4021, L505.5000 ####[facility] [address] [place], [place], [phone] BARBITIURATES Normal < 200 ng/mL [facility] Comment on above: Result Comment: EDIE ENT DICHARGED SPECIMEN NO LONGER IN LAB Performed By: #### L 501.5200, L501.9520, L506.0250, L501.9985, L501.4021, L505.5000 ####[facility] [address] [place] [address] BENZODIAZIPINE Normal < 200 ng/mL [facility] Comment on above: Result Comment: EDIE ENT DICHARGED SPECIMEN NO LONGER IN LAB Performed By: #### L 501.5200, L501.9520, L506.0250, L501.9985, L501.4021, L505.5000 ####[facility] [address] [place] [address] BUP Ur Drug Scr Normal < 200 ng/mL [facility] Comment on above: Result Comment: EDIE ENT DICHARGED SPECIMEN NO LONGER IN LAB Performed By: #### L 501.5200, L501.9520, L506.0250, L501.9985, L501.4021, L505.5000 ####[facility] [address] [place], [place], [phone] COCAINE Normal < 300 ng/mL [facility] Comment on above: Result Comment: EDIE ENT DICHARGED SPECIMEN NO LONGER IN LAB Performed By: #### L 501.5200, L501.9520, L506.0250, L501.9985, L501.4021, L505.5000 ####[facility] [address] [place] [address] Fentanyl Normal [facility] Comment on above: Result Comment: EDIE ENT DICHARGED SPECIMEN NO LONGER IN LAB Performed By: #### L 501.5200, L501.9520, L506.0250, L501.9985, L501.4021, L505.5000 ####[facility] [address] [place], [place], [phone] METHADONE Normal < 300 ng/mL [facility] Comment on above: Result Comment: EDIE ENT DICHARGED SPECIMEN NO LONGER IN LAB Performed By: #### L 501.5200, L501.9520, L506.0250, L501.9985, L501.4021, L505.5000 ####[facility] [address] [place] [address] OPIATES Normal < 300 ng/mL [facility] Comment on above: Result Comment: EDIE ENT DICHARGED SPECIMEN NO LONGER IN LAB Performed By: #### L 501.5200, L501.9520, L506.0250, L501.9985, L501.4021, L505.5000 ####[facility] [address] [place] [address] OXYCODONE Normal < 100 ng/mL [facility] Comment on above: Result Comment: EDIE ENT DICHARGED SPECIMEN NO LONGER IN LAB Performed By: #### L 501.5200, L501.9520, L506.0250, L501.9985, L501.4021, L505.5000 ####[facility] [address] [place] [address] PCP Normal < 25 ng/mL [facility] Comment on above: Result Comment: EDIE ENT DICHARGED SPECIMEN NO LONGER IN LAB Performed By: #### L 501.5200, L501.9520, L506.0250, L501.9985, L501.4021, L505.5000 ####[facility] [address] [place] [address] THC Normal < 50 ng/mL [facility] Comment on above: Result Comment: EDIE ENT DICHARGED SPECIMEN NO LONGER IN LAB Performed By: #### L 501.5200, L501.9520, L506.0250, L501.9985, L501.4021, L505.5000 ####[facility] [address] [place], [address] Urine blood detectionOrdered By: Remus Youngblood on 09-16-2024 Urine Occult Blood Negative Negative [facility] Urine clarityOrdered By: Rem us Ford on 09-16-2024 Clarity (U) Clear Clear [facility] Urine color determinationOrd ered By: Remus Youngblood on 09-16-2024 Color (U) Yellow Yellow [facility] Urine glucose detectionOrder ed By: Remus Youngblood on 09-16-2024 Glucose Ql (U) Normal mg/dl Normal [facility] Urine leukocyte esterase det ection by dipstickOrdered By: Maliha Youngblood on 09-16-2024 Leukocyte esterase Test strip Ql (U) Negative Negative [facility] Urine pHOrdered By: Maliha Un gur on 09-16-2024 pH (U) 6.5 [pH] 5.0 - 8.0 [facility] Urine sediment bacteria coun t by microscopy (number/high power field)Ordered By: Maliha Youngblood on 09-16-2024 Bacteria LM.HPF (Urine sed) [#/Area] 0 /[HPF] None Seen [facility] Urine specific gravity measu rementOrdered By: Maliha Youngblood on 09-16-2024 Specific gravity (U) [Rel density] 1.010 1.002-1.030 [facility] Urine urobilinogen measureme ntOrdered By: Remus Youngblood on 09-16-2024 Urobilinogen Ql (U) Normal mg/dl Normal [facility] Urobilinogen Ql (U)Ordered B y: Remus Ford on 09-16-2024 Urine Urobilinogen Normal mg/dl Normal [facility] White blood cell (WBC) count Ordered By: Alberto Mustafa on 09-16-2024 WBC (Bld) [#/Vol] 5.2 10*3/uL 4.4-11.0 [facility] White blood cell countOrdere d By: Remus Ford on 09-16-2024 Urine WBC 0 SEEN /hpf 0-5 [facility] White blood cell count 0 SEEN /hpf 0-5 [facility] Direct serum free thyroxine (FT4) measurementOrdered By: Alberto Mustafa on 07-22-2024 Free T4 [Mass/Vol] 1.23 ng/dL 0.76-1.46 [facility] T4 Free Directon 07-22-2024 T4 FREE DIRECT 1.23 ng/dL Normal 0.76-1.46 [facility] Comment on above: Performed By: #### L 506.0400 ####[facility] [address] [place], [place], [address] Direct serum free thyroxine (FT4) measurementOrdered By: Alberto Mustafa on 07-03-2024 Free T4 [Mass/Vol] 2.48 ng/dL High 0.76-1.46 [facility] T4 Free Directon 07-03-2024 T4 FREE DIRECT 2.48 ng/dL High 0.76-1.46 [facility] Comment on above: Order Comment: Order Date: 07/03/24Order Info: 3024-7 - T4F Performed By: #### L 506.0400 ####[facility] [address] [place], [place], [address] CBC W/Diff, Automatedon 11-0 Absolute Lymph 0.87 X10 3/uL Normal 0.83-4.51 [facility] Comment on above: Order Comment: Order Date: 04/25/24Order Info: 0184-1 - CBCD Performed By: #### L 100.0100, L500.4050, L500.4100, L501.9520, L503.0105 ####[facility] [address] [place], [place], [address] Absolute Neut 3.7 X10 3/uL Normal 2.0-7.7 [facility] Comment on above: Order Comment: Order Date: 04/25/24Order Info: 0184-1 - CBCD Performed By: #### L 100.0100, L500.4050, L500.4100, L501.9520, L503.0105 ####[facility] [address] [place], [address] Basophils/100 WBC (Bld) 0.7 % Normal 0-1 [facility] Comment on above: Order Comment: Order Date: 04/25/24Order Info: 0184-1 - CBCD Performed By: #### L 100.0100, L500.4050, L500.4100, L501.9520, L503.0105 ####[facility] [address] [place], [address] Eosinophils/100 WBC (Bld) 2.8 % Normal 0-5 [facility] Comment on above: Order Comment: Order Date: 04/25/24Order Info: 0184-1 - CBCD Performed By: #### L 100.0100, L500.4050, L500.4100, L501.9520, L503.0105 ####[facility] [address] [place], [address] Erythrocyte distribution width (RBC) [Ratio] 13.2 % Normal 11.6-14.6 [facility] Comment on above: Order Comment: Order Date: 04/25/24Order Info: 0184-1 - CBCD Performed By: #### L 100.0100, L500.4050, L500.4100, L501.9520, L503.0105 ####[facility] [address] [place], [address] Hematocrit (Bld) [Volume fraction] 46.8 % Normal 40-54 [facility] Comment on above: Order Comment: Order Date: 04/25/24Order Info: 0184-1 - CBCD Performed By: #### L 100.0100, L500.4050, L500.4100, L501.9520, L503.0105 ####[facility] [address] [place], [address] Hemoglobin (Bld) [Mass/Vol] 14.8 g/dL Normal 13.0-16.5 [facility] Comment on above: Order Comment: Order Date: 04/25/24Order Info: 0184-1 - CBCD Performed By: #### L 100.0100, L500.4050, L500.4100, L501.9520, L503.0105 ####[facility] [address] [place], [address] IG% 0.600 Normal 0.0-0.9 [facility] Comment on above: Order Comment: Order Date: 04/25/24Order Info: 018-1 - CBCD Result Comment: IG% - Immature Granulocytes (promyelocytes, myelocytes andmetamyelocytes) > 1% indicates that a LEFT SHIFT is Present. Performed By: #### L 100.0100, L500.4050, L500.4100, L501.9520, L503.0105 ####[facility] [address] [place], [address] Lymphocytes/100 WBC (Bld) 16.3 % Low 19-41 [facility] Comment on above: Order Comment: Order Date: 04/25/24Order Info: [id number] - CBCD Performed By: #### L 100.0100, L500.4050, L500.4100, L501.9520, L503.0105 ####[facility] [address] [place], [address] MCH (RBC) [Entitic mass] 29.6 pg Normal 27.0-32.0 [facility] Comment on above: Order Comment: Order Date: 04/25/24Order Info: [id number] - CBCD Performed By: #### L 100.0100, L500.4050, L500.4100, L501.9520, L503.0105 ####[facility] [address] [place], [address] MCHC (RBC) [Mass/Vol] 31.6 g/dL Low 32-36 [facility] Comment on above: Order Comment: Order Date: 04/25/24Order Info: [id number] - CBCD Performed By: #### L 100.0100, L500.4050, L500.4100, L501.9520, L503.0105 ####[facility] [address] [place], [address] MCV (RBC) [Entitic vol] 93.6 fL Normal 80-94 [facility] Comment on above: Order Comment: Order Date: 04/25/24Order Info: [id number] - CBCD Performed By: #### L 100.0100, L500.4050, L500.4100, L501.9520, L503.0105 ####[facility] [address] [place], [address] Monocytes/100 WBC (Bld) 9.7 % Normal 0-10 [facility] Comment on above: Order Comment: Order Date: 04/25/24Order Info: [id number] - CBCD Performed By: #### L 100.0100, L500.4050, L500.4100, L501.9520, L503.0105 ####[facility] [address] [place], [address] Neutrophils/100 WBC (Bld) 69.9 % Normal 47-70 [facility] Comment on above: Order Comment: Order Date: 04/25/24Order Info: [id number] - CBCD Performed By: #### L 100.0100, L500.4050, L500.4100, L501.9520, L503.0105 ####[facility] [address] [place], [address] Nucleated RBC (Bld) [#/Vol] 0 10*3/uL Normal 0-5 [facility] Comment on above: Order Comment: Order Date: 04/25/24Order Info: [id number] - CBCD Performed By: #### L 100.0100, L500.4050, L500.4100, L501.9520, L503.0105 ####[facility] [address] [place], [address] Platelet mean volume (Bld) [Entitic vol] 10.3 fL Normal 6.2-12.0 [facility] Comment on above: Order Comment: Order Date: 04/25/24Order Info: [id number] - CBCD Performed By: #### L 100.0100, L500.4050, L500.4100, L501.9520, L503.0105 ####[facility] [address] [place], [address] Platelets (Bld) [#/Vol] 141 10*3/uL Low 150-450 [facility] Comment on above: Order Comment: Order Date: 04/25/24Order Info: [id number] - CBCD Performed By: #### L 100.0100, L500.4050, L500.4100, L501.9520, L503.0105 ####[facility] [address] [place], [address] RBC (Bld) [#/Vol] 5.00 10*6/uL Normal 4.6-6.2 [facility] Comment on above: Order Comment: Order Date: 04/25/24Order Info: [id number] - CBCD Performed By: #### L 100.0100, L500.4050, L500.4100, L501.9520, L503.0105 ####[facility] [address] [place], [address] RDW SD 45.2 fl High 35.1-43.9 [facility] Comment on above: Order Comment: Order Date: 04/25/24Order Info: [id number] - CBCD Performed By: #### L 100.0100, L500.4050, L500.4100, L501.9520, L503.0105 ####[facility] [address] [place], [address] WBC (Bld) [#/Vol] 5.4 10*3/uL Normal 4.4-11.0 [facility] Comment on above: Order Comment: Order Date: 04/25/24Order Info: [id number] - CBCD Performed By: #### L 100.0100, L500.4050, L500.4100, L501.9520, L503.0105 ####[facility] [address] [place], [address] Comprehensive Metabolic Prof ilon 05-29-2024 Albumin [Mass/Vol] 3.9 g/dL Normal 3.2-5.0 [facility] Comment on above: Order Comment: Order Date: 04/25/24Order Info: [id number] - CMPOrder Info: [id number] - LIPIDOrder Info: [id number] - TSHOrder Info: [id number] - T4F Performed By: #### L 100.0100, L500.4050, L500.4100, L501.9520, L503.0105 ####[facility] [address] [place], [address] Albumin/Globulin [Mass ratio] 1.1 {ratio} Normal 0.9-2.4 [facility] Comment on above: Order Comment: Order Date: 04/25/24Order Info: [id number] - CMPOrder Info: [id number] - LIPIDOrder Info: [id number] - TSHOrder Info: [id number] - T4F Performed By: #### L 100.0100, L500.4050, L500.4100, L501.9520, L503.0105 ####[facility] [address] [place], [address] ALK P 117 U/L Normal 45-117 [facility] Comment on above: Order Comment: Order Date: 04/25/24Order Info: [id number] - CMPOrder Info: [id number] - LIPIDOrder Info: [id number] - TSHOrder Info: 7 - T4F Performed By: #### L 100.0100, L500.4050, L500.4100, L501.9520, L503.0105 ####[facility] [address] [place], [address] ALT [Catalytic activity/Vol] 20 U/L Normal 16-61 [facility] Comment on above: Order Comment: Order Date: 04/25/24Order Info: 86-1 - CMPOrder Info: [id number] - LIPIDOrder Info: [id number] - TSHOrder Info: 7 - T4F Performed By: #### L 100.0100, L500.4050, L500.4100, L501.9520, L503.0105 ####[facility] [address] [place], [address] AST [Catalytic activity/Vol] 22 U/L Normal 15-37 [facility] Comment on above: Order Comment: Order Date: 04/25/24Order Info: 86-1 - CMPOrder Info: [id number] - LIPIDOrder Info: [id number] - TSHOrder Info: 7 - T4F Performed By: #### L 100.0100, L500.4050, L500.4100, L501.9520, L503.0105 ####[facility] [address] [place], [address] Bilirubin [Mass/Vol] 0.90 mg/dL Normal 0.20-1.00 [facility] Comment on above: Order Comment: Order Date: 04/25/24Order Info: 86-1 - CMPOrder Info: [id number] - LIPIDOrder Info: [id number] - TSHOrder Info: 7 - T4F Result Comment: For patients on eltrombopag therapy, use of Dimension [place] TBIL is not recommended. Performed By: #### L 100.0100, L500.4050, L500.4100, L501.9520, L503.0105 ####[facility] [address] [place], [address] BUN/CRE 16.3 RATIO Normal 10-20 [facility] Comment on above: Order Comment: Order Date: 04/25/24Order Info: [id number] - CMPOrder Info: [id number] - LIPIDOrder Info: [id number] - TSHOrder Info: [id number] - T4F Performed By: #### L 100.0100, L500.4050, L500.4100, L501.9520, L503.0105 ####[facility] [address] [place], [address] CA,Total 9.6 mg/dL Normal 8.5-10.1 [facility] Comment on above: Order Comment: Order Date: 04/25/24Order Info: 86-1 - CMPOrder Info: [id number] - LIPIDOrder Info: 3 - TSHOrder Info: [id number] - T4F Performed By: #### L 100.0100, L500.4050, L500.4100, L501.9520, L503.0105 ####[facility] [address] [place], [address] Chloride [Moles/Vol] 105 mmol/L Normal 98-107 [facility] Comment on above: Order Comment: Order Date: 04/25/24Order Info: 86-1 - CMPOrder Info: [id number] - LIPIDOrder Info: [id number] - TSHOrder Info: [id number] - T4F Performed By: #### L 100.0100, L500.4050, L500.4100, L501.9520, L503.0105 ####[facility] [address] [place], [address] CO2 [Moles/Vol] 28.0 mmol/L Normal 21.0-32.0 [facility] Comment on above: Order Comment: Order Date: 04/25/24Order Info: 86-1 - CMPOrder Info: [id number] - LIPIDOrder Info: [id number] - TSHOrder Info: [id number] - T4F Performed By: #### L 100.0100, L500.4050, L500.4100, L501.9520, L503.0105 ####[facility] [address] [place], [place], [address] Creatinine [Mass/Vol] 1.35 mg/dL High 0.70-1.30 [facility] Comment on above: Order Comment: Order Date: 04/25/24Order Info: 785- - CMPOrder Info: [id number] - LIPIDOrder Info: [id number] - TSHOrder Info: [id number] - T4F Result Comment: The validity of the calculated GFR GFRAA in patients over70 years has not been determined. Clinical correlation isessential. Performed By: #### L 100.0100, L500.4050, L500.4100, L501.9520, L503.0105 ####[facility] [address] [place], [place], [id number] EST GFR - AA 64 mL/min Normal >60 [facility] Comment on above: Order Comment: Order Date: 04/25/24Order Info: [id number] - CMPOrder Info: - LIPIDOrder Info: [id number] - TSHOrder Info: [id number] - T4F Result Comment: Afri can German GFR Calc Performed By: #### L 100.0100, L500.4050, L500.4100, L501.9520, L503.0105 ####[facility] [address] [place], [address] GAP 4 Low 5-15 [facility] Comment on above: Order Comment: Order Date: 04/25/24Order Info: 785- - CMPOrder Info: [id number] - LIPIDOrder Info: [id number] - TSHOrder Info: [id number] - T4F Performed By: #### L 100.0100, L500.4050, L500.4100, L501.9520, L503.0105 ####[facility] [address] [place], [address] GFR/1.73 sq M.predicted among non-blacks MDRD (S/P/Bld) [Vol rate/Area] 53 mL/min/{1.73_m2} Low >[address] [facility] Comment on above: Order Comment: Order Date: 04/25/24Order Info: [id number] - CMPOrder Info: [id number] - LIPIDOrder Info: [id number] - TSHOrder Info: [id number] - T4F Result Comment: Non- GFR Calc Performed By: #### L 100.0100, L500.4050, L500.4100, L501.9520, L503.0105 ####[facility] [address] [place], [address] Globulin (S) [Mass/Vol] 3.5 g/dL Normal 2.2-4.2 [facility] Comment on above: Order Comment: Order Date: 04/25/24Order Info: [id number] - CMPOrder Info: [id number] - LIPIDOrder Info: 63 - TSHOrder Info: [id number] - T4F Performed By: #### L 100.0100, L500.4050, L500.4100, L501.9520, L503.0105 ####[facility] [address] [place], [address] Glucose [Mass/Vol] 113 mg/dL High 74-106 [facility] Comment on above: Order Comment: Order Date: 04/25/24Order Info: 86-1 - CMPOrder Info: [id number] - LIPIDOrder Info: [id number] - TSHOrder Info: [id number] - T4F Result Comment: Fast ing Glucose result from 100 to 125 mg/dLsuggests IMPAIRED HOMEOSTASIS per A.D.A. criteria. Performed By: #### L 100.0100, L500.4050, L500.4100, L501.9520, L503.0105 ####[facility] [address] [place], [address] Potassium [Moles/Vol] 4.2 mmol/L Normal 3.5-5.1 [facility] Comment on above: Order Comment: Order Date: 04/25/24Order Info: 86-1 - CMPOrder Info: [id number] - LIPIDOrder Info: [id number] - TSHOrder Info: [id number] - T4F Performed By: #### L 100.0100, L500.4050, L500.4100, L501.9520, L503.0105 ####[facility] [address] [place], [address] Sodium [Moles/Vol] 138 mmol/L Normal 136-145 [facility] Comment on above: Order Comment: Order Date: 04/25/24Order Info: 86-1 - CMPOrder Info: [id number] - LIPIDOrder Info: 3 - TSHOrder Info: 7 - T4F Performed By: #### L 100.0100, L500.4050, L500.4100, L501.9520, L503.0105 ####[facility] [address] [place], [address] T PROT 7.4 g/dL Normal 6.4-8.2 [facility] Comment on above: Order Comment: Order Date: 04/25/24Order Info: [id number] - CMPOrder Info: [id number] - LIPIDOrder Info: 3 - TSHOrder Info: [id number] - T4F Performed By: #### L 100.0100, L500.4050, L500.4100, L501.9520, L503.0105 ####[facility] [address] [place], [address] Urea nitrogen [Mass/Vol] 22 mg/dL High 7-18 [facility] Comment on above: Order Comment: Order Date: 04/25/24Order Info: 86-1 - CMPOrder Info: [id number] - LIPIDOrder Info: 3 - TSHOrder Info: [id number] - T4F Performed By: #### L 100.0100, L500.4050, L500.4100, L501.9520, L503.0105 ####[facility] [address] [place], [address] Lipid Profileon 05-29-2024 Cholesterol [Mass/Vol] 162 mg/dL Normal [address] [facility] Comment on above: Order Comment: Order Date: 04/25/24Order Info: 86-1 - CMPOrder Info: [id number] - LIPIDOrder Info: [id number] - TSHOrder Info: [id number] - T4F Result Comment: <200 mg/dL Desirable 200-240 mg/dL Borderline >240 mg/dL High Risk Performed By: #### L 100.0100, L500.4050, L500.4100, L501.9520, L503.0105 ####[facility] [address] [place], [address] Cholesterol in HDL [Mass/Vol] 81 mg/dL Normal [facility] Comment on above: Order Comment: Order Date: 04/25/24Order Info: [id number] - CMPOrder Info: [id number] - LIPIDOrder Info: [id number] - TSHOrder Info: [id number] - T4F Result Comment: The drugs N-Acetylcysteine and Metamizole may falselydepress this assay. Reference Range HDL <40 mg/dL Low HDL Cholesterol HDL >or= 60 mg/dL High HDL Cholesterol Performed By: #### L 100.0100, L500.4050, L500.4100, L501.9520, L503.0105 ####[facility] [address] [place], [address] Cholesterol in LDL [Mass/Vol] 67 mg/dL Normal 0-130 [facility] Comment on above: Order Comment: Order Date: 04/25/24Order Info: [id number] - CMPOrder Info: [id number] - LIPIDOrder Info: [id number] - TSHOrder Info: [id number] - T4F Performed By: #### L 100.0100, L500.4050, L500.4100, L501.9520, L503.0105 ####[facility] [address] [place], [address] Cholesterol in VLDL [Mass/Vol] 14 mg/dL Normal 5-40 [facility] Comment on above: Order Comment: Order Date: 04/25/24Order Info: [id number]- - CMPOrder Info: [id number] - LIPIDOrder Info: 3 - TSHOrder Info: 7 - T4F Performed By: #### L 100.0100, L500.4050, L500.4100, L501.9520, L503.0105 ####[facility] [address] [place], [address] Triglyceride [Mass/Vol] 68 mg/dL Normal [facility] Comment on above: Order Comment: Order Date: 04/25/24Order Info: [id number] - CMPOrder Info: - LIPIDOrder Info: [id number] - TSHOrder Info: 7 - T4F Result Comment: The drugs N-Acetylcysteine and Metamizole may falselydepress this assay.Serum Triglycerides Reference Interval Normal <150 mg/dL Borderline high 150 - 199 mg/dL High 200 - 499 mg/dL Very High > or = 500 mg/dL Performed By: #### L 100.0100, L500.4050, L500.4100, L501.9520, L503.0105 ####[facility] [address] [place], [address] T4 Free Directon 05-29-2024 T4 FREE DIRECT 1.83 ng/dL High 0.76-1.46 [facility] Comment on above: Order Comment: Order Date: 04/25/24Order Info: [id number] - CMPOrder Info: [id number] - LIPIDOrder Info: 3 - TSHOrder Info: [id number] - T4F Performed By: #### L 506.0400 ####[facility] [address] [place], [address] Thyroid Stim Hormone (TSH)on 05-29-2024 TSH 0.082 uIU/mL Low 0.358-3.740 [facility] Comment on above: Order Comment: Order Date: 04/25/24Order Info: [id number] - CMPOrder Info: [id number] - LIPIDOrder Info: [id number] - TSHOrder Info: [id number] - T4F Performed By: #### L 100.0100, L500.4050, L500.4100, L501.9520, L503.0105 ####[facility] [address] [place], [place], [id number] Vitamin B12on 05-29-2024 Cobalamin (Vitamin B12) [Mass/Vol] 271 pg/mL Normal 211-911 [facility] Comment on above: Order Comment: Order Date: 04/25/24Order Info: [id number] - B12 Performed By: #### L 100.0100, L500.4050, L500.4100, L501.9520, L503.0105 ####[facility] [address] [place], [place], [id number] Thyroidon 05-01-2024 Thyroid Normal [facility] Hemoglobin A1con 04-28-2024 HbA1c (Bld) [Mass fraction] 6.0 % High 3.8-5.6 [facility] Comment on above: Order Comment: ADD O N A1C Result Comment: Norm al < 5.7 % Prediabetic 5.7 - 6.4 % Diabetic >or= 6.5 % Please note range changes. Performed By: #### L 100.0100, L500.4050, L506.0400, L501.9520, L503.0105, L501.9985, L500.4100 ####[facility] [address] [place], [address] CBC W/Diff, Automatedon 10-0 Absolute Lymph 0.82 X10 3/uL Low 0.83-4.51 [facility] Comment on above: Performed By: #### L 100.0100, L500.4050, L506.0400, L501.9520, L503.0105, L501.9985, L500.4100 ####[facility] [address] [place], [address] Absolute Neut 3.5 X10 3/uL Normal 2.0-7.7 [facility] Comment on above: Performed By: #### L 100.0100, L500.4050, L506.0400, L501.9520, L503.0105, L501.9985, L500.4100 ####[facility] [address] [place], [address] Basophils/100 WBC (Bld) 1.2 % High 0-1 [facility] Comment on above: Performed By: #### L 100.0100, L500.4050, L506.0400, L501.9520, L503.0105, L501.9985, L500.4100 ####[facility] [address] [place], [address] Eosinophils/100 WBC (Bld) 4.5 % Normal 0-5 [facility] Comment on above: Performed By: #### L 100.0100, L500.4050, L506.0400, L501.9520, L503.0105, L501.9985, L500.4100 ####[facility] [address] [place], [address] Erythrocyte distribution width (RBC) [Ratio] 13.3 % Normal 11.6-14.6 [facility] Comment on above: Performed By: #### L 100.0100, L500.4050, L506.0400, L501.9520, L503.0105, L501.9985, L500.4100 ####[facility] [address] [place], [address] Hematocrit (Bld) [Volume fraction] 45.6 % Normal 40-54 [facility] Comment on above: Performed By: #### L 100.0100, L500.4050, L506.0400, L501.9520, L503.0105, L501.9985, L500.4100 ####[facility] [address] [place], [address] Hemoglobin (Bld) [Mass/Vol] 14.4 g/dL Normal 13.0-16.5 [facility] Comment on above: Performed By: #### L 100.0100, L500.4050, L506.0400, L501.9520, L503.0105, L501.9985, L500.4100 ####[facility] [address] [place], [address] IG% 0.600 Normal 0.0-0.9 [facility] Comment on above: Result Comment: IG% - Immature Granulocytes (promyelocytes, myelocytes andmetamyelocytes) > 1% indicates that a LEFT SHIFT is Present. Performed By: #### L 100.0100, L500.4050, L506.0400, L501.9520, L503.0105, L501.9985, L500.4100 ####[facility] [address] [place], [address] Lymphocytes/100 WBC (Bld) 16.1 % Low 19-41 [facility] Comment on above: Performed By: #### L 100.0100, L500.4050, L506.0400, L501.9520, L503.0105, L501.9985, L500.4100 ####[facility] [address] [place], [address] MCH (RBC) [Entitic mass] 29.9 pg Normal 27.0-32.0 [facility] Comment on above: Performed By: #### L 100.0100, L500.4050, L506.0400, L501.9520, L503.0105, L501.9985, L500.4100 ####[facility] [address] [place], [address] MCHC (RBC) [Mass/Vol] 31.6 g/dL Low 32-36 [facility] Comment on above: Performed By: #### L 100.0100, L500.4050, L506.0400, L501.9520, L503.0105, L501.9985, L500.4100 ####[facility] [address] [place], [address] MCV (RBC) [Entitic vol] 94.8 fL High 80-94 [facility] Comment on above: Performed By: #### L 100.0100, L500.4050, L506.0400, L501.9520, L503.0105, L501.9985, L500.4100 ####[facility] [address] [place], [address] Monocytes/100 WBC (Bld) 8.1 % Normal 0-10 [facility] Comment on above: Performed By: #### L 100.0100, L500.4050, L506.0400, L501.9520, L503.0105, L501.9985, L500.4100 ####[facility] [address] [place], [address] Neutrophils/100 WBC (Bld) 69.5 % Normal 47-70 [facility] Comment on above: Performed By: #### L 100.0100, L500.4050, L506.0400, L501.9520, L503.0105, L501.9985, L500.4100 ####[facility] [address] [place], [address] Nucleated RBC (Bld) [#/Vol] 0 10*3/uL Normal 0-5 [facility] Comment on above: Performed By: #### L 100.0100, L500.4050, L506.0400, L501.9520, L503.0105, L501.9985, L500.4100 ####[facility] [address] [place], [address] Platelet mean volume (Bld) [Entitic vol] 10.5 fL Normal 6.2-12.0 [facility] Comment on above: Performed By: #### L 100.0100, L500.4050, L506.0400, L501.9520, L503.0105, L501.9985, L500.4100 ####[facility] [address] [place], [address] Platelets (Bld) [#/Vol] 161 10*3/uL Normal 150-450 [facility] Comment on above: Performed By: #### L 100.0100, L500.4050, L506.0400, L501.9520, L503.0105, L501.9985, L500.4100 ####[facility] [address] [place], [address] RBC (Bld) [#/Vol] 4.81 10*6/uL Normal 4.6-6.2 [facility] Comment on above: Performed By: #### L 100.0100, L500.4050, L506.0400, L501.9520, L503.0105, L501.9985, L500.4100 ####[facility] [address] [place], [address] RDW SD 46.3 fl High 35.1-43.9 [facility] Comment on above: Performed By: #### L 100.0100, L500.4050, L506.0400, L501.9520, L503.0105, L501.9985, L500.4100 ####[facility] [address] [place], [address] WBC (Bld) [#/Vol] 5.1 10*3/uL Normal 4.4-11.0 [facility] Comment on above: Performed By: #### L 100.0100, L500.4050, L506.0400, L501.9520, L503.0105, L501.9985, L500.4100 ####[facility] [address] [place], [address] Comprehensive Metabolic Prof ilon 04-25-2024 Albumin [Mass/Vol] 3.5 g/dL Normal 3.2-5.0 [facility] Comment on above: Order Comment: N Performed By: #### L 100.0100, L500.4050, L506.0400, L501.9520, L503.0105, L501.9985, L500.4100 ####[facility] [address] [place], [address] Albumin/Globulin [Mass ratio] 1.0 {ratio} Normal 0.9-2.4 [facility] Comment on above: Order Comment: N Performed By: #### L 100.0100, L500.4050, L506.0400, L501.9520, L503.0105, L501.9985, L500.4100 ####[facility] [address] [place], [address] ALK P 108 U/L Normal 45-117 [facility] Comment on above: Order Comment: N Performed By: #### L 100.0100, L500.4050, L506.0400, L501.9520, L503.0105, L501.9985, L500.4100 ####[facility] [address] [place], [address] ALT [Catalytic activity/Vol] 20 U/L Normal 16-61 [facility] Comment on above: Order Comment: N Performed By: #### L 100.0100, L500.4050, L506.0400, L501.9520, L503.0105, L501.9985, L500.4100 ####[facility] [address] [place], [address] AST [Catalytic activity/Vol] 21 U/L Normal 15-37 [facility] Comment on above: Order Comment: N Performed By: #### L 100.0100, L500.4050, L506.0400, L501.9520, L503.0105, L501.9985, L500.4100 ####[facility] [address] [place], [address] Bilirubin [Mass/Vol] 0.60 mg/dL Normal 0.20-1.00 [facility] Comment on above: Order Comment: N Result Comment: For patients on eltrombopag therapy, use of Dimension [place] TBIL is not recommended. Performed By: #### L 100.0100, L500.4050, L506.0400, L501.9520, L503.0105, L501.9985, L500.4100 ####[facility] [address] [place], [address] BUN/CRE 15.1 RATIO Normal 10-20 [facility] Comment on above: Order Comment: N Performed By: #### L 100.0100, L500.4050, L506.0400, L501.9520, L503.0105, L501.9985, L500.4100 ####[facility] [id number] [place], [address] CA,Total 9.7 mg/dL Normal 8.5-10.1 [facility] Comment on above: Order Comment: N Performed By: #### L 100.0100, L500.4050, L506.0400, L501.9520, L503.0105, L501.9985, L500.4100 ####[facility] [address] [place], [address] Chloride [Moles/Vol] 105 mmol/L Normal 98-107 [facility] Comment on above: Order Comment: N Performed By: #### L 100.0100, L500.4050, L506.0400, L501.9520, L503.0105, L501.9985, L500.4100 ####[facility] [address] [place], [address] CO2 [Moles/Vol] 28.0 mmol/L Normal 21.0-32.0 [facility] Comment on above: Order Comment: N Performed By: #### L 100.0100, L500.4050, L506.0400, L501.9520, L503.0105, L501.9985, L500.4100 ####[facility] [address] [place], [address] Creatinine [Mass/Vol] 1.26 mg/dL Normal 0.70-1.30 [facility] Comment on above: Order Comment: N Result Comment: The validity of the calculated GFR GFRAA in patients over70 years has not been determined. Clinical correlation isessential. Performed By: #### L 100.0100, L500.4050, L506.0400, L501.9520, L503.0105, L501.9985, L500.4100 ####[facility] [address] [place], [address] EST GFR - AA 70 mL/min Normal >60 [facility] Comment on above: Order Comment: N Result Comment: Afri can German GFR Calc Performed By: #### L 100.0100, L500.4050, L506.0400, L501.9520, L503.0105, L501.9985, L500.4100 ####[facility] [address] [place], [address] GAP 5 Normal 5-15 [facility] Comment on above: Order Comment: N Performed By: #### L 100.0100, L500.4050, L506.0400, L501.9520, L503.0105, L501.9985, L500.4100 ####[facility] [address] [place], [address] GFR/1.73 sq M.predicted among non-blacks MDRD (S/P/Bld) [Vol rate/Area] 58 mL/min/{1.73_m2} Low >[address] [facility] Comment on above: Order Comment: N Result Comment: Non- GFR Calc Performed By: #### L 100.0100, L500.4050, L506.0400, L501.9520, L503.0105, L501.9985, L500.4100 ####[facility] [address] [place], [place], [phone] Globulin (S) [Mass/Vol] 3.5 g/dL Normal 2.2-4.2 [facility] Comment on above: Order Comment: N Performed By: #### L 100.0100, L500.4050, L506.0400, L501.9520, L503.0105, L501.9985, L500.4100 ####[facility] [address] [place], [address] Glucose [Mass/Vol] 117 mg/dL High 74-106 [facility] Comment on above: Order Comment: N Result Comment: Fast ing Glucose result from 100 to 125 mg/dLsuggests IMPAIRED HOMEOSTASIS per A.D.A. criteria. Performed By: #### L 100.0100, L500.4050, L506.0400, L501.9520, L503.0105, L501.9985, L500.4100 ####[facility] [address] [place], [place], [phone] Potassium [Moles/Vol] 4.0 mmol/L Normal 3.5-5.1 [facility] Comment on above: Order Comment: N Performed By: #### L 100.0100, L500.4050, L506.0400, L501.9520, L503.0105, L501.9985, L500.4100 ####[facility] [address] [place], [address] Sodium [Moles/Vol] 137 mmol/L Normal 136-145 [facility] Comment on above: Order Comment: N Performed By: #### L 100.0100, L500.4050, L506.0400, L501.9520, L503.0105, L501.9985, L500.4100 ####[facility] [address] [place], [address] T PROT 7.0 g/dL Normal 6.4-8.2 [facility] Comment on above: Order Comment: N Performed By: #### L 100.0100, L500.4050, L506.0400, L501.9520, L503.0105, L501.9985, L500.4100 ####[facility] [address] [place], [address] Urea nitrogen [Mass/Vol] 19 mg/dL High 7-18 [facility] Comment on above: Order Comment: N Performed By: #### L 100.0100, L500.4050, L506.0400, L501.9520, L503.0105, L501.9985, L500.4100 ####[facility] [address] [place], [address] Lipid Profileon 04-25-2024 Cholesterol [Mass/Vol] 216 mg/dL High [address] [facility] Comment on above: Order Comment: N Result Comment: <200 mg/dL Desirable 200-240 mg/dL Borderline >240 mg/dL High Risk Performed By: #### L 100.0100, L500.4050, L506.0400, L501.9520, L503.0105, L501.9985, L500.4100 ####[facility] [address] [place], [address] Cholesterol in HDL [Mass/Vol] 74 mg/dL Normal [facility] Comment on above: Order Comment: N Result Comment: The drugs N-Acetylcysteine and Metamizole may falselydepress this assay. Reference Range HDL <40 mg/dL Low HDL Cholesterol HDL >or= 60 mg/dL High HDL Cholesterol Performed By: #### L 100.0100, L500.4050, L506.0400, L501.9520, L503.0105, L501.9985, L500.4100 ####[facility] [address] [place], [address] Cholesterol in LDL [Mass/Vol] 103 mg/dL Normal 0-130 [facility] Comment on above: Order Comment: N Performed By: #### L 100.0100, L500.4050, L506.0400, L501.9520, L503.0105, L501.9985, L500.4100 ####[facility] [address] [place], [address] Cholesterol in VLDL [Mass/Vol] 39 mg/dL Normal 5-40 [facility] Comment on above: Order Comment: N Performed By: #### L 100.0100, L500.4050, L506.0400, L501.9520, L503.0105, L501.9985, L500.4100 ####[facility] [address] [place], [address] Triglyceride [Mass/Vol] 196 mg/dL Normal [facility] Comment on above: Order Comment: N Result Comment: The drugs N-Acetylcysteine and Metamizole may falselydepress this assay.Serum Triglycerides Reference Interval Normal <150 mg/dL Borderline high 150 - 199 mg/dL High 200 - 499 mg/dL Very High > or = 500 mg/dL Performed By: #### L 100.0100, L500.4050, L506.0400, L501.9520, L503.0105, L501.9985, L500.4100 ####[facility] [address] [place], [place], [address] T4 Free Directon 04-25-2024 T4 FREE DIRECT 0.64 ng/dL Low 0.76-1.46 [facility] Comment on above: Order Comment: N Performed By: #### L 100.0100, L500.4050, L506.0400, L501.9520, L503.0105, L501.9985, L500.4100 ####[facility] [address] [facility] [address] [place], [place], [id number] Thyroid Stim Hormone (TSH)on 04-25-2024 TSH 9.250 uIU/mL High 0.358-3.740 [facility] Comment on above: Order Comment: N Performed By: #### L 100.0100, L500.4050, L506.0400, L501.9520, L503.0105, L501.9985, L500.4100 ####[facility] [address] [facility] [address] [place], [place], [id number] Vitamin B12on 04-25-2024 Cobalamin (Vitamin B12) [Mass/Vol] 327 pg/mL Normal 211-911 [facility] Comment on above: Performed By: #### L 100.0100, L500.4050, L506.0400, L501.9520, L503.0105, L501.9985, L500.4100 ####[facility] [address] [facility] [address] [place], [place], [id number] Vital Signs Date Time Vital Sign Value Performing Clinician Facility 01-08-2025 20:19-0400 Body temperature 98.7 [degF] Dr. Alberto Mustafa MD Work Phone: [facility] 01-08-2025 20:19-0400 Diastolic blood pressure 78 mm[Hg] Dr. Alberto Mustafa MD Work Phone: 0(132)260-375494 [place] [address] 01-08-2025 20:19-0400 Heart rate 85 /min Dr. Alberto Mustafa MD Work Phone: 0(159)399-034694 [place] [address] 01-08-2025 20:19-0400 Respiratory rate 16 /min Dr. Alberto Mustafa MD Work Phone: 3(360)228-057194 [place] [address] 01-08-2025 20:19-0400 SaO2% (BldA) [Mass fraction] 94 % Dr. Alberto Mustafa MD Work Phone: 7(155)684-239790 [place] [address] 01-08-2025 20:19-0400 Systolic blood pressure 145 mm[Hg] Dr. Alberto Mustafa MD Work Phone: 2(105)119-378990 [place] [address] 01-07-2025 15:19-0400 Body height 190.[address] Alberto Mustafa MD Work Phone: 6(302)767-509190 [place] [address] 01-07-2025 15:19-0400 Body weight 89.[address] Alberto Mustafa MD Work Phone: 5(252)182-503090 [place] [address] 01-07-2025 14:10-0400 Inhaled oxygen flow rate 2 L/min Dr. Alberto Mustafa MD Work Phone: 5(983)948-154090 [place] [address] 01-05-2025 14:42-0400 Body mass index (BMI) [Ratio] 24.7 kg/m2 Dr. Alberto Mustafa MD Work Phone: 8(092)694-522194 [place] [address] 01-02-2025 09:36-0400 Body height 190.[address] Alberto Mustafa MD Work Phone: 3(667)293-666690 [place] [address] 01-02-2025 09:36-0400 Body weight 89.[address] Alberto Mustafa MD Work Phone: 9(413)856-222290 [place] [address] 01-02-2025 09:00-0400 Body temperature 100.9 [degF] Dr. Alberto Mustafa MD Work Phone: 6(750)428-808890 [place] [address] 01-02-2025 09:00-0400 Diastolic blood pressure 109 mm[Hg] Dr. Alberto Mustafa MD Work Phone: 4(207)682-045594 [place] [address] 01-02-2025 09:00-0400 Heart rate 111 /min Dr. Alberto Mustafa MD Work Phone: 5(965)483-563794 [place] [address] 01-02-2025 09:00-0400 Respiratory rate 18 /min Dr. Alberto Mustafa MD Work Phone: 9(884)370-955394 [place] [address] 01-02-2025 09:00-0400 SaO2% (BldA) [Mass fraction] 92 % Dr. Alberto Mustafa MD Work Phone: 4(034)177-939390 [place] [address] 01-02-2025 09:00-0400 Systolic blood pressure 125 mm[Hg] Dr. Alberto Mustafa MD Work Phone: 4(273)111-118390 [place] [address] 01-02-2025 02:53-0400 Body mass index (BMI) [Ratio] 24.7 kg/m2 Dr. Alberto Mustafa MD Work Phone: 9(609)795-703994 [place] [address] 01-02-2025 01:00-0400 Body temperature 99.2 [degF] Dr. Alberto Mustafa MD Work Phone: 2(668)031-477990 [place] [address] 01-02-2025 01:00-0400 Diastolic blood pressure 85 mm[Hg] Dr. Alberto Mustafa MD Work Phone: 5(382)297-221894 [place] [address] 01-02-2025 01:00-0400 Heart rate 116 /min Dr. Alberto Mustafa MD Work Phone: 5(801)729-465594 [place] [address] 01-02-2025 01:00-0400 Respiratory rate 18 /min Dr. Alberto Mustafa MD Work Phone: 8(051)320-678690 [place] [address] 01-02-2025 01:00-0400 SaO2% (BldA) [Mass fraction] 96 % Dr. Alberto Mustafa MD Work Phone: 5(758)630-630594 [place] [address] 01-02-2025 01:00-0400 Systolic blood pressure 132 mm[Hg] Dr. Alberto Mustafa MD Work Phone: 5(594)327-652494 [place] [address] 01-01-2025 15:12-0400 Body height 190.[address] Alberto Mustafa MD Work Phone: [facility] 01-01-2025 15:12-0400 Body mass index (BMI) [Ratio] 25.6 kg/m2 Dr. Alberto Mustafa MD Work Phone: 7(515)546-054394 [place] [address] 01-01-2025 15:12-0400 Body weight [address] Alberto Mustafa MD Work Phone: 4(724)048-795090 [place] [address] 12-31-2024 20:58-0400 Body temperature 97.8 [degF] Dr. Alberto Mustafa MD Work Phone: 0(796)246-550490 [place] [address] 12-31-2024 20:58-0400 Diastolic blood pressure 74 mm[Hg] Dr. Alberto Mustafa MD Work Phone: 6(234)406-334490 [place] [address] 12-31-2024 20:58-0400 Heart rate 89 /min Dr. Alberto Mustafa MD Work Phone: 9(344)194-519390 [place] [address] 12-31-2024 20:58-0400 Respiratory rate 16 /min Dr. Alberto Mustafa MD Work Phone: 7(012)061-988994 [place] [address] 12-31-2024 20:58-0400 SaO2% (BldA) [Mass fraction] 96 % Dr. Alberto Mustafa MD Work Phone: 1(269)925-606194 [place] [address] 12-31-2024 20:58-0400 Systolic blood pressure 112 mm[Hg] Dr. Alberto Mustafa MD Work Phone: [facility] 12-31-2024 19:02-0400 Body mass index (BMI) [Ratio] 28 kg/m2 Dr. Alberto Mustafa MD Work Phone: [facility] 12-31-2024 19:02-0400 Body weight 101.[address] Alberto Mustafa MD Work Phone: [facility] 12-31-2024 15:46-0400 Body height 190.[address] Alberto Mustafa MD Work Phone: [facility] 12-31-2024 11:30-0400 Body temperature 98.6 [degF] Dr. Alberto Mustafa MD Work Phone: [facility] 12-31-2024 11:30-0400 Respiratory rate 16 /min Dr. Alberto Mustafa MD Work Phone: [facility] 12-24-2024 09:23-0400 Body temperature 96.6 [degF] Dr. Alberto Mustafa MD Work Phone: [facility] 12-24-2024 09:23-0400 Diastolic blood pressure 63 mm[Hg] Dr. Alberto Mustafa MD Work Phone: [facility] 12-24-2024 09:23-0400 Heart rate 72 /min Dr. Alberto Mustafa MD Work Phone: [facility] 12-24-2024 09:23-0400 Respiratory rate 18 /min Dr. Alberto Mustafa MD Work Phone: [facility] 12-24-2024 09:23-0400 Systolic blood pressure 124 mm[Hg] Dr. Alberto Mustafa MD Work Phone: [facility] 12-03-2024 13:22-0400 Body temperature 97 [degF] Dr. Alberto Mustafa MD Work Phone: [facility] 12-03-2024 13:22-0400 Diastolic blood pressure 68 mm[Hg] Dr. Alberto Mustafa MD Work Phone: [facility] 12-03-2024 13:22-0400 Heart rate 78 /min Dr. Alberto Mustafa MD Work Phone: [facility] 12-03-2024 13:22-0400 Respiratory rate 18 /min Dr. Alberto Mustafa MD Work Phone: [facility] 12-03-2024 13:22-0400 Systolic blood pressure 133 mm[Hg] Dr. Alberto Mustafa MD Work Phone: 7(887)418-048577 [place] [address] 10-21-2024 00:35-0400 Body temperature 96.7 [degF] Dr. Alberto Mustafa MD Work Phone: [facility] 10-21-2024 00:35-0400 Diastolic blood pressure 54 mm[Hg] Dr. Alberto Mustafa MD Work Phone: [facility] 10-21-2024 00:35-0400 Heart rate 59 /min Dr. Alberto Mustafa MD Work Phone: 5(384)244-044994 [place] [address] 10-21-2024 00:35-0400 Respiratory rate 18 /min Dr. Alberto Mustafa MD Work Phone: 5(494)507-709694 [place] [address] 10-21-2024 00:35-0400 Systolic blood pressure 161 mm[Hg] Dr. Alberto Mustafa MD Work Phone: 9(919)286-413594 [place] [address] 10-15-2024 12:16-0400 Body temperature 96.7 [degF] Dr. Alberto Mustafa MD Work Phone: [facility] 10-15-2024 12:16-0400 Diastolic blood pressure 54 mm[Hg] Dr. Alberto Mustafa MD Work Phone: 8(104)078-547094 [place] [address] 10-15-2024 12:16-0400 Heart rate 59 /min Dr. Alberto Mustafa MD Work Phone: 2(936)094-075994 [place] [address] 10-15-2024 12:16-0400 Respiratory rate 18 /min Dr. Alberto Mustafa MD Work Phone: [facility] 10-15-2024 12:16-0400 Systolic blood pressure 161 mm[Hg] Dr. Alberto Mustafa MD Work Phone: 9(234)361-041394 [place] [address] 09-19-2024 16:34-0500 Body temperature 97.9 [degF] Dr. Alberto Mustafa MD Work Phone: [facility] 09-19-2024 16:34-0500 Diastolic blood pressure 74 mm[Hg] Dr. Alberto Mustafa MD Work Phone: 9(690)052-287694 [place] [address] 09-19-2024 16:34-0500 Heart rate 65 /min Dr. Alberto Mustafa MD Work Phone: [facility] 09-19-2024 16:34-0500 Respiratory rate 16 /min Dr. Alberto Mustafa MD Work Phone: [facility] 09-19-2024 16:34-0500 SaO2% (BldA) [Mass fraction] 96 % Dr. Alberto Mustafa MD Work Phone: [facility] 09-19-2024 16:34-0500 Systolic blood pressure 133 mm[Hg] Dr. Alberto Mustafa MD Work Phone: 9(453)516-223394 [place] [address] 09-19-2024 06:00-0500 Body mass index (BMI) [Ratio] 23.6 kg/m2 Dr. Alberto Mustafa MD Work Phone: [facility] 09-19-2024 06:00-0500 Body weight [address] Alberto Mustafa MD Work Phone: [facility] 09-17-2024 10:45-0500 Body height 190.[address] Alberto Mustafa MD Work Phone: [facility] Encounters Encounter Date Encounter Type Care Provider Facility Start: 01-21-2025 [facility] Facility: [facility] Start: 01-08-2025 Non-patient / Non-visit Dr. Dusty Abad MD -[facility] Work Phone: Start: 01-08-2025 Dr. Dusty Abad MD -[facility] Work Phone: Start: 01-07-2025 Non-patient / Non-visit Dr. Dusty Abad MD -[facility] Work Phone: Start: 01-07-2025 Dr. Dusty Abad MD -[facility] Work Phone: Start: 01-06-2025 Non-patient / Non-visit Dr. Dusty Abad MD -[facility] Work Phone: Start: 01-06-2025 Dr. Dusty Yanes [facility] Work Phone: Start: 01-05-2025 Non-patient / Non-visit Dr. Dusty Abad MD [facility] Work Phone: Start: 01-05-2025 Dr. Dusty Abad MD -[facility] Work Phone: Start: 01-04-2025 Non-patient / Non-visit Dr. Sofia Lopez MD [facility] Work Phone: Start: 01-04-2025 Dr. Sofia Lopez MD [facility] Work Phone: Start: 01-03-2025 Non-patient / Non-visit Dr. Sofia Lopez MD [facility] Work Phone: Start: 01-03-2025 Dr. Sofia Lopez MD [facility] Work Phone: Start: 01-02-2025 ambulatory Jaden Forman Facility: [facility] Start: 01-02-2025 Non-patient / Non-visit Dr. Booker worthy MD -[facility] Start: 01-02-2025 Dr. Kana Birmingham MD -[facility] Start: 01-02-2025 Non-patient / Non-visit Dr. Mei Mckenzie DO [facility] Work Phone: Start: 01-02-2025 Dr. Mei Mckenzie DO [facility] Work Phone: Start: 01-02-2025 Non-patient / Non-visit Dr. Mei Mckenzie DO [facility] Work Phone: Start: 01-02-2025 Dr. [facility]i [facility] Work Phone: Start: 01-02-2025 ambulatory Michael Meeks Facility: [facility] Start: 01-01-2025 ambulatory Mei Mckenzie Facility:[facility] Start: 01-01-2025 End: 01-08-2025 Evaluation and management of inpatient Dr. Mei Mckenzie DO -[facility] Work Phone: Start: 01-01-2025 End: 01-08-2025 Dr. Dusty Abad MD -[facility] Work Phone: Start: 12-31-2024 End: 12-31-2024 Emergency department patient visit Dr. Alberto Mustafa MD Work Phone: -Emergency Department Work Phone: Start: 12-31-2024 End: 01-19-[address] Alberto Mustafa MD Work Phone: [facility] Start: 12-31-2024 End: 01-19-[address] Jaden Forman DPM -[facility]ter Work Phone: Start: 12-31-[address] Jaden bucio DPM -[facility] Work Phone: Start: 12-31-2024 End: 12-31-2024 Dr. Booker Rodríguez DO -Emergency Departme nt Work Phone: Start: 12-24-[address] Jaden bucio DPM -[facility] Work Phone: Start: 12-17-2024 End: 12-17-[address] Alberto Mustafa MD Work Phone: [facility] Work Phone: Start: 12-17-2024 End: 12-17-[address] Michael Meeks MD -[facility] Work Phone: Start: 12-17-[address] Michael matta MD -[facility] [place] Work Phone: Start: 12-17-2024 End: 12-17-2024 Dr. Michael Meeks MD -[facility] Work Phone: Start: 12-16-2024 End: 12-17-2024 ambulatory Alberto Mustafa Facility:[facility] Start: 12-16-[address] Michael matta MD -[facility] [place] Work Phone: Start: 12-16-2024 Dr. Michael Mena [facility] Work Phone: Start: 12-03-2024 End: 12-20-[address] Alberto Mustafa MD Work Phone: [facility] Work Phone: Start: 12-03-2024 End: 12-20-[address] Jaden Forman DPM -[facility] Work Phone: Start: 12-03-[address] Jaden bucio DPM -[facility] Work Phone: Start: 12-03-2024 End: 12-20-2024 Dr. Jaden Forman DPYokasta -Wound Healing [facility] Work Phone: Start: 11-26-2024 End: 11-26-[address] Michael Meeks MD -[facility] Work Phone: Start: 11-26-[address] Michael matta MD -[facility] [place] Work Phone: Start: 11-26-2024 End: 11-26-2024 Dr. Michael Meeks MD -[facility] Work Phone: Start: 11-26-2024 End: 11-26-2024 ambulatory Alberto Mustafa Facility:[facility] Start: 11-24-2024 End: 11-24-[address] Alberto Mustafa MD Work Phone: [facility] Work Phone: Start: 11-24-2024 End: 11-24-[address] [facility] Work Phone: Start: 11-24-[address] Michael Muller [place] Work Phone: Start: 11-24-2024 End: 11-24-2024 Dr. Michael Mull[facility] Work Phone: Start: 11-24-2024 End: 11-24-2024 ambulatory [facility] Facility:[facility] Start: 11-05-2024 End: 11-05-[address] Alberto Mustafa MD Work Phone: [facility] Work Phone: Start: 11-05-2024 End: 11-05-[address] Michael Mull[facility] Work Phone: Start: 11-05-[address] Michael Muller [facility] Work Phone: Start: 11-05-2024 End: 11-05-2024 Dr. Michael Mull[facility] Work Phone: Start: 11-05-2024 End: 11-05-2024 ambulatory [facility] Facility:[facility] Start: 10-27-2024 End: 10-27-[address] Alberto Mustafa MD Work Phone: [facility] Work Phone: Start: 10-27-2024 End: 10-27-[address] Michael Mull[facility] Work Phone: Start: 10-27-2024 End: 10-27-2024 Dr. Michael Moreno [facility] Work Phone: Start: 10-27-2024 End: 10-27-2024 ambulatory [facility] Facility:[facility] Start: 10-22-2024 End: 11-19-[address] Jaden Forman DPM -[facility] Work Phone: Start: 10-22-[address] Jaden bucio DPM -[facility] Work Phone: Start: 10-22-2024 End: 11-19-2024 Dr. Jaden Forman DPM -Wound Healing [facility] Work Phone: Start: 10-22-2024 End: 11-19-2024 [facility] Start: 10-15-2024 End: 10-20-[address] Alberto Mustafa MD Work Phone: [facility] Work Phone: Start: 10-15-2024 End: 10-20-[address] Jaden Forman DPM -[facility] Work Phone: Start: 10-15-2024 End: 10-20-2024 Dr. Jaden Forman DPM -[facility] Work Phone: Start: 09-24-2024 End: 09-24-[address] Alberto Mustafa MD Work Phone: [facility] Work Phone: Start: 09-24-2024 End: 09-24-[address] Michael Meeks MD -[facility] Work Phone: Start: 09-24-[address] Michael matta MD -[facility] [place] Work Phone: Start: 09-24-2024 End: 09-24-2024 Dr. Michael Meeks MD -[facility] Work Phone: Start: 09-24-2024 End: 09-24-2024 [facility] Start: 09-22-2024 End: 09-22-[address] Alberto Mustafa MD Work Phone: [facility] Work Phone: Start: 09-22-2024 End: 09-22-[address] Michael Meeks MD -[facility] Work Phone: Start: 09-22-[address] Michael matta MD -[facility] [place] Work Phone: Start: 09-22-2024 End: 09-22-2024 Dr. Michael Meeks MD -[facility] [place] Work Phone: Start: 09-22-2024 End: 09-22-2024 [facility]ulatory [facility] Facility:[facility] Start: 09-19-2024 Non-patient / Non-visit Dr. Demetrius Barreto [facility] Work Phone: Start: 09-19-2024 Dr. Demetrius Nash [facility] Work Phone: Start: 09-18-2024 Non-patient / Non-visit Dr. Demetrius Barreto [facility] Work Phone: Start: 09-18-2024 Dr. Demetrius Nash [facility] Work Phone: Start: 09-17-2024 Non-patient / Non-visit Dr. Demetrius Barreto [facility] Work Phone: Start: 09-17-2024 Dr. Demetrius Nash [facility] Work Phone: Start: 09-17-2024 ambulatory Kamari Lockhart Fa cility:[facility] Start: 09-17-2024 Non-patient / Non-visit Dr. Robert Lockhart MD -[facility] Start: 09-17-2024 Dr. Kamari Lockhart MD [facility] Start: 09-16-2024 End: 09-19-2024 ambulatory Altaf Meeks Facility:[facility] Start: 09-16-2024 End: 09-19-2024 Evaluation and management of inpatient Dr. Demetrius Nash DO [place] [id number] Work Phone: Start: 09-16-2024 End: 09-19-2024 Dr. Demetrius Nash DO -[facility] 3 Work Phone: Start: 09-16-2024 End: 09-16-[address] Alberto Mustafa MD -Laboratory, [facility] Start: 09-16-2024 End: 09-16-2024 Dr. Alberto Mustafa MD -Laboratory [facility] Start: 09-16-2024 End: 09-16-2024 ambulatory Alberto Mustafa Facility:[facility] Start: 07-22-2024 End: 07-22-[address] Alberto Mustafa MD -Laboratory, [facility] Start: 07-22-2024 End: 07-22-2024 ambulatory Alberto Mustafa Facility:[facility] Start: 07-03-2024 End: 07-03-[address] Alberto Mustafa MD -Laboratory, [facility] Start: 07-03-2024 End: 07-03-2024 ambulatory Alberto Mustafa Facility:[facility] Start: 05-29-2024 End: 05-29-2024 ambulatory Alberto Mustafa Facility:[facility] Start: 05-01-2024 End: 05-01-2024 [facility] Start: 04-25-2024 End: 04-25-2024 ambulatory Alberto Niru Mustafa Facility:[facility] Procedures Date Procedure Procedure Detail Performing Clinician Start: 01-08-2025 Blood count smear mc rscp w/mnl difrntl wbc count Dr. Alberto Mustafa MD Work Phone: Start: 01-08-[address] Alberto Mustafa MD Work Phone: Start: 01-08-2025 Flow cytometry cell surf marker techl only 1st Dr. Alberto Mustafa MD Work Phone: Start: 01-08-2025 Mean corpuscular hem oglobin concentration determination Dr. Alberto Mustafa MD Work Phone: Start: 01-08-2025 Myelocyte percent differential count Dr. Alberto Mustafa MD Work Phone: Start: 01-08-2025 Platelet mean volume determination Dr. Alberto Mustafa MD Work Phone: Start: 01-07-2025 Nucleated red blood cell count procedure Dr. Alberto Mustafa MD Work Phone: Start: 01-06-[address] Alberto Mustafa MD Work Phone: Start: 01-05-2025 Incision and drainag e of abscess Dr. Alberto Mustafa MD Work Phone: Start: 01-05-2025 Fluoroscopic guidance Ramandeep Mustafa MD Work Phone: Start: 01-05-2025 X-ray of foot, two views Dr. Alberto Mustafa MD Work Phone: Start: 01-05-[address] Alberto Mustafa MD Work Phone: Start: 01-05-[address] Alberto Mustafa MD Work Phone: Start: 01-05-2025 Gram stain microscopy Ramandeep Mustafa MD Work Phone: Start: 01-05-2025 End: 01-05-2025 Microbial culture, routine Dr. Alberto nick MD Work Phone: Start: 01-03-[address] Alberto Mustafa MD Work Phone: Start: 01-03-[address] Alberto Mustafa MD Work Phone: Start: 01-03-2025 Gram stain microscopy Ramandeep Mustafa MD Work Phone: Start: 01-03-2025 Microbial culture, routine Dr. Alberto Mustafa MD Work Phone: Start: 01-02-2025 End: 01-02-2025 B[address] nucleic acid assay Dr[address] Alberto Mustafa MD Work Phone: Start: 01-02-[address] Alberto Mustafa MD Work Phone: Start: 01-02-2025 Gram stain microscopy D andrew Mustafa MD Work Phone: Start: 01-02-2025 End: 01-02-2025 Microbial culture, routine Dr. Alberto inck MD Work Phone: Start: 01-02-[address] Alberto Mustafa MD Work Phone: Start: 01-02-2025 Sars-cov-2 Dr. Alberto rousseau MD Work Phone: Start: 01-02-2025 X-ray of foot, three or more views Dr. Alberto Mustafa MD Work Phone: Start: 01-02-[address] Alberto Mustafa MD Work Phone: Start: 01-02-2025 Serum inorganic phos phate measurement Dr. Alberto Mustafa MD Work Phone: Start: 01-01-2025 MRI of lower extremity Dr. Alberto Mustafa MD Work Phone: Start: 01-01-2025 Venous oxygen satura tion measurement Dr. Alberto Mustafa MD Work Phone: Start: 01-01-[address] Janette Mustafa MD Work Phone: Start: 01-01-2025 Calculation of international normalized ratio Dr. Alberto Mustafa MD Work Phone: Start: 01-01-2025 Urine microscopy: red cells Dr. Alberto Mustafa MD Work Phone: Start: 01-01-2025 Urnls dip stick/tabl et reagent auto microscopy Dr. Alberto Mustafa MD Work Phone: Start: 01-01-2025 X-ray of chest, PA a nd lateral views Dr. Alberto Mustafa MD Work Phone: Start: 01-01-2025 CT of head without contrast Dr. Alberto Mustafa MD Work Phone: Start: 01-01-[address] Alberto Mustafa MD Work Phone: Start: 01-01-[address] Janette Mustafa MD Work Phone: Start: 01-01-[address] Alberto Mustafa MD Work Phone: Start: 01-01-2025 Identification proce dure for living organism Dr. Alberto Mustafa MD Work Phone: Start: 01-01-[address] Alberto Mustafa MD Work Phone: Start: 01-01-[address] Alberto Mustafa MD Work Phone: Start: 09-22-[address] Alberto Mustafa MD Work Phone: Start: 09-22-2024 Total cholesterol:HD L ratio measurement Dr. Alberto Mustafa MD Work Phone: Start: 09-18-2024 Serum inorganic phos phate measurement Dr. Alberto Mustafa MD Work Phone: Start: 09-17-2024 Blood count smear mc rscp w/mnl difrntl wbc count Dr. Alberto Mustafa MD Work Phone: Start: 09-17-[address] Alberto Mustafa MD Work Phone: Start: 09-17-2024 Mean corpuscular hem oglobin concentration determination Dr. Alberto Mustafa MD Work Phone: Start: 09-17-2024 Nucleated red blood cell count procedure Dr. Alberto Mustafa MD Work Phone: Start: 09-17-2024 Platelet mean volume determination Dr. Alberto Mustafa MD Work Phone: Start: 09-17-2024 Total cholesterol:HD L ratio measurement Dr. Alberto Mustafa MD Work Phone: Start: 09-16-[address] Alberto Mustafa MD Work Phone: Start: 09-16-2024 Urine microscopy: red cells Dr. Alberto Mustafa MD Work Phone: Start: [...] spine Dr. Alberto Mustafa MD Work Phone: Start: 09-16-2024 Blood count smear mc rscp w/mnl difrntl wbc count Dr. Alberto Mustafa MD Work Phone: Start: 09-16-2024 Mean corpuscular hem oglobin concentration determination Dr. Alberto Mustafa MD Work Phone: Start: 09-16-2024 Nucleated red blood cell count procedure Dr. Alberto Mustafa MD Work Phone: Start: 09-16-2024 Platelet mean volume determination Dr. Alberto Mustafa MD Work Phone: Plan of Treatment Date Care Activity Detail Author Start: 01-08-2025 Patient discharge [facility] Start: 01-06-2025 Care planning and problem solving actions [facility] Start: 01-06-2025 Blood culture [facility] Start: 01-06-2025 [facility] Start: 01-05-2025 Acid fast bacilli culture [facility] Start: 01-05-2025 Mycology culture [facility] Start: 01-05-2025 Source specific culture [facility] Start: 01-05-2025 Incision and drainage of abscess Incision,Drainage Abscess (Left) [facility] Start: 01-05-2025 Acid Fast Bacilli Culture Acid Fast Bacilli Culture [facility] Start: 01-05-2025 Acid Fast Bacilli Smear Acid Fast Bacilli Smear [facility] Start: 01-05-2025 Anaerobic microbial culture [facility] Start: 01-05-2025 Blood culture [facility] Start: 01-05-2025 Fungal Culture Fungal Culture [facility] Start: 01-05-2025 Fungal Smear Fungal Smear [facility] Start: 01-05-2025 Microbial culture, routine [facility] Start: 01-05-2025 End: 01-05-2025 [facility] Start: 01-04-2025 Application of intermittent pneumatic compression device [facility] Start: 01-03-2025 [facility] Start: 01-03-2025 End: 01-03-2025 [facility] Start: 01-02-2025 Bacteria identified in Blood by Culture Blood Culture [facility] Start: 01-02-2025 Respiratory Panel (PCR) Respiratory Panel (PCR) [facility] Start: 01-02-2025 Wound Culture Wound Culture [facility] Start: 01-02-2025 [facility] Start: 01-02-2025 CBC W Auto Differential panel - Blood [facility] Start: 01-02-2025 Comprehensive metabolic 2000 panel - Serum or Plasma [facility] Start: 01-02-2025 Hemoglobin A1c/Hemoglobin.total in Blood [facility] Start: 01-02-2025 Magnesium measurement [facility] Start: 01-02-2025 Serum inorganic phosphate measurement [facility] Start: 01-02-2025 Thyroid stimulating hormone measurement [facility] Start: 01-02-2025 Consultation [facility] Start: 01-02-2025 Following clinical pathway protocol [facility] Start: 01-02-2025 Assessment of risk of venous thromboembolism [facility] Start: 01-02-2025 Care regimes management [facility] Start: 01-02-[address] [facility] Start: 01-02-2025 Elevation of affected extremity [facility] Start: 01-02-2025 Incentive spirometry [facility] Start: 01-02-2025 Insertion of catheter into peripheral vein [facility] Start: 01-02-2025 Measuring intake and output [facility] Start: 01-02-2025 Notification of physician [facility] Start: 01-02-2025 Oxygen therapy [facility] Start: 01-02-2025 Patient referral to dietitian [facility] Start: 01-02-2025 Providing care according to standard [facility] Start: 01-02-2025 Provision of activity privileges [facility] Start: 01-02-2025 Referral to occupational therapist [facility] Start: 01-02-2025 Referral to ferry hand [facility] Start: 01-02-2025 Referral to service [facility] Start: 01-02-2025 Speech therapy assessment [facility] Start: 01-02-2025 Wound care [facility] Start: 01-02-2025 End: 01-02-2025 [facility] Start: 01-02-2025 Patient referral to dietitian [facility] Start: 01-01-2025 End: 01-01-2025 Bacterial nucleic acid assay [facility] Start: 01-01-2025 End: 01-01-2025 [facility] Start: 01-01-2025 Verification routine [facility] Start: 01-01-2025 Admission procedure [facility] Start: 01-01-2025 [facility] Start: 01-01-2025 End: 01-01-2025 [facility] Start: 01-01-2025 Bacteria identified in Blood by Culture Blood Culture [facility] Start: 01-01-2025 Bacteria identified in Urine by Culture Urine Culture [facility] Start: 01-01-2025 Blood culture Blood Culture [facility] Start: 01-01-2025 SARS-CoV-2 Antigen (Rapid) SARS-CoV-2 Antigen (Rapid) [facility] Start: 12-31-2024 [facility] Start: 09-19-2024 Patient discharge [facility] Start: 09-16-[address] [facility] Start: 09-16-2024 Following clinical pathway protocol [facility] Start: 09-16-2024 Assessment of risk of venous thromboembolism [facility] Start: 09-16-2024 Insertion of catheter into peripheral vein [facility] Start: 09-16-2024 Measuring intake and output [facility] Start: 09-16-2024 Oxygen therapy [facility] Start: 09-16-2024 Providing care according to standard [facility] Start: 09-16-2024 Provision of activity privileges [facility] Start: 09-16-2024 Referral to occupational therapist [facility] Start: 09-16-2024 Referral to service [facility] Start: 09-16-2024 [facility] Start: 09-16-2024 Admission procedure [facility] Start: 09-16-2024 [facility] Start: 09-16-2024 Referral to service [facility] Start: 09-16-2024 [facility] Start: 09-16-2024 Patient referral to dietitian [facility] Bacteria identified in Unspecified specimen by Anaerobe culture [facility] Fungus identified in Unspecified specimen by Culture [facility] Fungus identified in Unspecified specimen by Fungus stain [facility] Mycobacterium sp samira ntified in Unspecified specimen by Organism specific culture [facility] Patient Education [facility] Work Phone: Patient referral [facility] Work Phone: Respiratory pathogen s DNA and RNA panel - Respiratory specimen by LILY with probe detection [facility] SARS-CoV-2 (COVID-19 ) Ag [Presence] in Respiratory specimen by Rapid immunoassay [facility] Urine culture [facility] Vancomycin [Mass/vol ume] in Serum or Plasma --trough [facility] Wound microscopy, cu lture and sensitivities [facility] Immunizations Immunization Date Immunization Notes Care Provider Randal enriquez 12-31-2024 tetanus toxoid, redu jean pierre diphtheria toxoid, and acellular pertussis vaccine, adsorbed Dr. Alberto Mustafa MD Work Phone: [facility] Payers Date Payer Category Payer Medicare [id number] [id number] Self-pay 2024 Unknown [id number] Unknown [id number] 2.16.8 40.1.330806.3.579.2.462 Unknown [id number] 2.16.8 40.1.500222.3.579.2.462 Unknown [id number] 2.16.8 40.1.925419.3.579.2.462 Unknown [id number] 2.16.8 40.1.794369.3.579.2.462 Unknown [id number] 2.16.8 40.1.392791.3.579.2.462 Unknown [id number] 2.16.8 40.1.899746.3.579.2.462 Unknown [id number] 2.16.8 40.1.726773.3.579.2.462 Unknown [id number] 2.16.8 40.1.861284.3.579.2.462 Unknown [id number] 2.16.8 40.1.361474.3.579.2.462 Unknown [id number] 2.16.8 40.1.153723.3.579.2.462 Unknown [id number] 2.16.8 40.1.251173.3.579.2.462 Unknown [id number] 2.16.8 40.1.950700.3.579.2.462 Unknown [id number] 2.16.8 40.1.109341.3.579.2.462 Unknown [id number] 2.16.8 40.1.559557.3.579.2.462 Unknown [id number] 2.16.8 40.1.822494.3.579.2.462 Unknown [id number] 2.16.8 40.1.218392.3.579.2.462 Unknown [id number] 2.16.8 40.1.756648.3.579.2.462 Unknown [id number] 2.16.8 40.1.700900.3.579.2.462 Unknown [id number] 2.16.8 40.1.360595.3.579.2.462 Unknown [id number] 2.16.8 40.1.578989.3.579.2.462 Unknown [id number] 2.16.8 40.1.164368.3.579.2.462 Unknown [id number] 2.16.8 40.1.586557.3.579.2.462 Unknown [id number] 2.16.8 40.1.149814.3.579.2.462 Unknown [id number] 2.16.8 40.1.286940.3.579.2.462 Unknown [id number] 2.16.8 40.1.934417.3.579.2.462 Unknown [id number] 2.16.8 40.1.703478.3.579.2.462 Unknown [id number] 2.16.8 40.1.957216.3.579.2.462 Unknown [id number] 2.16.8 40.1.241340.3.579.2.462 Unknown [id number] 2.16.8 40.1.757529.3.579.2.462 Unknown [id number] 2.16.8 40.1.716695.3.579.2.462 Unknown [id number] 2.16.8 40.1.657760.3.579.2.462 Unknown [id number] 2.16.8 40.1.319318.3.579.2.462 Unknown [id number] 2.16.8 40.1.389479.3.579.2.462 Unknown [id number] 2.16.8 40.1.361718.3.579.2.462 Unknown [id number] 2.16.8 40.1.470281.3.579.2.462 Unknown [id number] 2.16.8 40.1.760406.3.579.2.462 Unknown [id number] 2.16.8 40.1.195237.3.579.2.462 Social History Date Type Detail Facility Start: 09-16-2024 End: 01-02-2025 Tobacco smoking status NHIS Never smoked tobacco (finding) [facility] Start: 10-21-2024 End: 11-18-2024 Sex Male (finding) [facility] Start: 1935 Sex Assigned At Male W [facility] Goals Date Patient Goal Desired Activity /State Functional Status Date Assessment Result Facility 01-08-2025 Functional status Ambulates [facility] Work Phone: 01-02-2025 Functional status Activity Ability Bedres t [facility] Work Phone: 09-19-2024 Functional status Assist with Urinal [facility] Work Phone: Mental Status Date Assessment Result Facility 01-08-2025 Cognitive function Touch/Shaking [facility] Work Phone: 01-06-2025 Cognitive function Flat [facility] Work Phone: 01-02-2025 Cognitive function Voice/Name [facility] Work Phone: 01-01-2025 Cognitive function Level Of Cons ciousness Awake;Alert;Inappropriate;Diso riented [facility] Work Phone: 09-19-2024 Cognitive function Voice/Name [facility] Work Phone: Clinical Notes 09-16-2024 to 01-08-2025 Note Date & Type Note Facility 01-08-2025 Discharge summary Note Date/Time January 08, 2025 2:22pm [facility] Medical Records Department [address] [place] [address] Discharge Summary 01/08/25 1408 MR#: [id number] Acct: [id number] Name: GANESH RAZO Rep #:[id number] : [id number] 89 From: Dusty Sabillon PCP: Dr. Michael Meeks DO Status:ADM IN Location: [place] [address] Providers Date of Admission: 01/01/25 Date of Discharge: 01/08/25 Primary Care Physician: Dr. Michael Meeks, DO Consultations 01/02/25 02:40 Consult: Onc/Wound/parliamentary archivist Routine Comment: Consult: Podiatry Routine Consulting Provider: Jaden Forman Reason for Consult: Foot wound EMERGENT Consult: No Notified: Yes Date Notified: 01/02/25 Time Notified: 07:30 Method of Notification: Text 01/02/25 05:46 Consult: Infectious Disease Routine Consulting Provider: Juanjo Arias Reason for Consult: Bacteremia EMERGENT Consult: No Notified: Yes Date Notified: 01/02/25 Time Notified: 07:30 Method of Notification: Text Reason For Visit: INFECTED LEFT FOOT WOUND/ALTERED MS Diagnosis Discharge Diagnosis (1) Sepsis: Status: Acute Code(s): A41.9 - Sepsis, unspecified organism (2) MSSA bacteremia: Status: Acute Code(s): R78.81 - Bacteremia; B95.61 - Methicillin susceptible Staphylococcus aureus infection as the cause of diseases classified elsewhere (3) Altered mental status: Status: Acute Code(s): R41.82 - Altered mental status, unspecified (4) Acute kidney injury: Status: Acute Code(s): N17.9 - Acute kidney failure, unspecified Plan 89-year-old gentleman was admitted with fever and altered mental status and found to have cellulitis of the foot. On further workup it was found left foot acute osteomyelitis and MSSA bacteremia # Staph MSSA bacteremia in the setting of cellulitis of the foot * Patient's blood cultures are growing staph aureus * on IV vancomycin and zosyn * ID on board as well as podiatry * Urinalysis does not show any evidence of UTI. * Wound cultures growing staph aureus podiatry on board. 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 * TTE showed no evidence of vegetation and showed normal left ventricular size and systolic function with EF of 55% and moderate to severe mitral annular calcification and mild aortic stenosis with aortic valve mildly to moderately calcified and it appears tricuspid. * Repeat blood cultures from 01/03/2025 still growing gram-positive cocci in clusters in 2 out of 2 blood samples. * For foot surgery tomorrow. 01/05: Plan for surgery today. Wound culture PCR shows MSSA. 01/06: Patient had incision bone cortex of fifth metatarsal and fifth digit left foot with delayed primary closure of left foot. Postop diagnosis same osteomyelitis left fifth metatarsal foot. ID recommending 6 weeks of IV antibiotic at discharge. Blood culture positive of staph. Repeat blood culturefrom 01/05 pending. 1 wound culture with MRSA. Continue Vanco and Zosyn. Vancomycin prescription written stop date 02/16/2025. 6 weeks of IV antibiotics. PICC line tomorrow if 01/05 blood culture remain negative 01/07: Wound looks good. Continue dressing as per surgeon, RN. Podiatry follow-up. 01/08: Wound looks better. Seen by ID. Blood culture negative since 01/05. PICCline was ordered. 6 weeks of IV vancomycin stopped 02/26/2025. Follow-up ID in 2to 3 weeks. #Acute encephalopathy likely due to MSSA bacteremia with history of dementia: Management as above. Blood culture from 01/06 prelim negative for 48 hours. Repeat blood culture from 01/06 is pending 01/08: Acute encephalopathy has resolved patient has history of severe dementia and sometimes gets delirium like acute agitation happened last on 01/06/2025 evening #Hyperglycemia: * This in the setting of impaired glucose tolerance. * Has known A1c of 6.1. * Will monitor closely for now and status sliding scale as needed #Thrombocytopenia: * Platelets are further down to 76 May be due to acute illness. Will monitor. * 01/05: Platelet count 83K. H&H 12/36.8%. #CASEY: * Will monitor creatinine and hydrate with IV fluids * Creatinine today is down to 1.51. * Was 1.95 on admission. Baseline creatinine is around 1.3. 01/05: BUN/creatinine 43/1.3. Continue and maintain intake and output charting and fluid correction #Hypothyroidism: On Synthroid #Debility and weakness with failure to thrive: PT OT on board. Fall precautions. #History of onycholysis: On terbinafine which was held due to worsening kidney function #Dementia: * Unclear if he has behavioral disturbance. He continues to remain lethargic * Started on melatonin. * If patient becomes agitated we will have to consider starting Seroquel. DVT prophylaxis: Heparin. Hold heparin due to dropping platelets. Admitting platelet count was 178 but patient had thrombocytopenia 1 40K on 09/17/2024. Andshowing improvement on Sunday therefore HIT it is unlikely Discharge medication reconciliation done. Discharge follow-up instructions completed. Discharge process discussed with the patient and all questions wereanswered to patient's satisfaction. Follow with PCP in 1 to 2 weeks Total time spent, exact 35 minutes on discharge meds reconciliation, examination, coordination of care with nurses and ancillary staff, review of imaging and blood test and discussion with the patient on follow-up instructions. Medications at Discharge Home Medications levothyroxine 150 mcg tablet 150 mcg PO DAILY 01/01/25 meloxicam 7.5 mg tablet 7.5 mg PO DAILY 01/01/25 terbinafine HCl 250 mg tablet 250 mg PO DAILY 01/01/25 vancomycin 1.25 gram intravenous solution 1.25 g IV Q24H 39 days 01/07/25 acetaminophen 500 mg tablet 1,000 mg (2 x 500 mg) PO TID 30 days #0 tabs 01/08/25 insulin lispro 100 unit/mL subcutaneous pen (Humalog KwikPen (U-100) Insulin) See Protocol subcut TIDAC #0 mL 01/08/25 sennosides 8.6 mg-docusate sodium 50 mg tablet (Stimulant Laxative Plus) 2 tab PO BID #0 tabs 01/08/25 Physical Exam Narrative Seen and examined. Discussed with the engineer technical staff Patient awakes with the voice. Quite. Sleepy and drowsy Left foot dressing was done. He is on a pur?ed diet on supervised feed. DNR CC Physical exam General: Lethargic, sleepy. Wakes up on verbal command. Orientation cannot be ascertained or disoriented HEENT: Atraumatic, PERRLA, EOMI, Normocephalic. Oral: Oral mucosa dry. No Gingival or Mucosal Lesions/ Ulcerations Neck: Supple, No JVD, Negative Carotid Bruits Chest wall/Lungs: Air entry diminished in bilateral lung bases. No crepitation/rhonchi. On room air Cardiovascular: Regular rate and rhythm, Normal S1,S2, No M/G/R Abdomen: Bowel Sounds Present, Soft, Non Tender, Non-Distended : No dysuria. No renal angle tenderness. No suprapubic tenderness. Extremities: No edema, Capillary Refill Less than 3 Seconds Skin: Bilateral feet on the heel pad questions. Left foot bandage. Primary closure done. Musculoskeletal: ROM limited at knees and hips. Decreased muscle mass. No Tenderness to Palpation of Joints or Extremities Neurological: detailed neuroexam unobtainable no acute focal neurological deficit. Psych/Mental Status: Flat affect. Advanced dementia Weight / BMI Weight Weight: 197 lb 12.074 oz Body Mass Index (BMI) 24.7 ABG / Lab / Microbiology Data 01/08/25 05:03 01/08/25 05:03 Laboratory: Laboratory Results - last 24 hr 01/07/25 16:30: POC Glucose 156 H 01/07/25 21:21: Vancomycin Trough 11.9 01/08/25 05:03: WBC 8.0, RBC 3.55 L, Hgb 11.5 L, Hct 34.8 L, MCV 98.0 H, MCH 32.4 H, MCHC 33.0, RDW Std Deviation 47.1 H, RDW Coeff of Gary 13.1, Plt Count 159, MPV 10.5, Neut % (Auto) Not Reportable, Absolute Neuts (auto) 6.3, AbsoluteLymphs (auto) 1.12, Total Counted 100, Neutrophils % (Manual) 77 H, Band Neutrophils % 2, Lymphocytes % (Manual) 14 L, Monocytes % (Manual) 2, Eosinophils % (Manual) 2, Basophils % (Manual) 1, Myelocytes % 2 H, Diff Path Review May foll, Platelet Estimate ADEQUATE, RBC Morphology NORM C+C, Sodium 142, Potassium 3.6, Chloride 106, Carbon Dioxide 26.8, Anion Gap 9, BUN 26 H, Creatinine 1.06, Estim Creat Clear Calc 57.57, Est GFR (MDRD) Non-Af 68, BUN/Creatinine Ratio 24.7 H, Glucose 125 H, Calcium 9.1 01/08/25 06:30: POC Glucose 151 H 01/08/25 11:40: POC Glucose 110 H Microbiology: Microbiology 01/05/25 17:00 Wound Abcess - Aerobic & Anaerobic Swabs Gram Stain - Final 01/05/25 17:00 Wound Abcess - Aerobic & Anaerobic Swabs Wound Culture - Final Staphylococcus epidermidis 01/05/25 17:00 Wound Abcess - Aerobic & Anaerobic Swabs Anaerobic Culture - Preliminary No growth in 48 hours. 01/05/25 17:00 Wound Abcess - Aerobic & Anaerobic Swabs Gram Stain - Final 01/05/25 17:00 Wound Abcess - Aerobic & Anaerobic Swabs Wound Culture - Final Staphylococcus aureus 01/05/25 17:00 Wound Abcess - Aerobic & Anaerobic Swabs Anaerobic Culture - Preliminary Checking for anaerobes, further studies to follow. 01/05/25 17:00 Tissue - 5th Toe Gram Stain - Final 01/05/25 17:00 Tissue - 5th Toe Wound Culture - Final Staphylococcus aureus 01/05/25 17:00 Tissue - 5th Toe Anaerobic Culture - Preliminary Checking for anaerobes, further studies to follow. 01/05/25 17:00 Bone - Metatarsal Gram Stain - Final 01/05/25 17:00 Bone - Metatarsal Wound Culture - Preliminary Staphylococcus aureus 01/05/25 17:00 Bone - Metatarsal Anaerobic Culture - Preliminary Checking for anaerobes, further studies to follow. 01/06/25 09:28 Blood Culture (Wb) - Anticubital Right Blood Culture - Preliminary No growth in 48 hours. 01/05/25 17:00 Tissue - Left Foot Gram Stain - Final 01/05/25 17:00 Tissue - Left Foot Wound Culture - Preliminary Staphylococcus aureus 01/05/25 07:35 Blood Culture (Wb) - Anticubital Right Blood Culture - Preliminary No growth in 48 hours. 01/03/25 10:00 Wound - Left Foot Gram Stain - Final 01/03/25 10:00 Wound - Left Foot Wound Culture - Final Meth. resistant Staph. aureus 01/03/25 10:00 Wound - Left Foot Anaerobic Culture - Final No anaerobic bacteria isolated. 01/03/25 06:15 Blood Culture (Wb) - Right Hand Blood Culture - Final Staphylococcus aureus 01/03/25 06:15 Blood Culture (Wb) - Venous Blood Culture - Final Staphylococcus aureus 01/02/25 11:55 Blood Culture (Wb) - Left Wrist Blood Culture - Final Staphylococcus aureus 01/01/25 17:10 Urine Catheter - Catheter Urine Culture - Final Culture exhibits no growth. 01/02/25 03:57 Wound - Left Foot Gram Stain - Final 01/02/25 03:57 Wound - Left Foot Wound Culture - Final Staphylococcus aureus 01/02/25 03:57 Wound - Left Foot Skin and Soft Tissue MRSA/MSSA (PCR - Final Staphylococcus aureus 01/01/25 15:30 Blood Culture (Wb) - Arm Left Blood Culture - Final Staphylococcus aureus 01/01/25 15:25 Blood Culture (Wb) - Right Forearm Bacteria Detection (PCR) -Final Staphylococcus aureus 01/01/25 15:25 Blood Culture (Wb) - Right Forearm Blood Culture - Final Staphylococcus aureus 01/02/25 02:05 Mucosa - Nasopharyngeal Respiratory Panel (PCR) - Final 01/02/25 02:05 Mucosa - Nasopharyngeal Coronavirus COVID-19 PCR - Final D/C Instructions DC O2, CPAP, BIPAP Needs Home O2 [...] Simvastatin 80mg Discharge Plan Admission Admit Date/Time: 01/01/25 23:52 Primary Reason for Your Visit: Left foot osteomyelitis. Attending Provider: Dusty Abad Primary Care Provider: Michael Meeks Consulting Providers: Mei Mckenzie; Sofia Lopez; Juanjo Arias; Jaden Forman Instructions Additional Instructions / Restrictions: Wound care/dressing changes, left lower extremity: 1. Remove all Stefan bandages and outer dressing. 2. Lightly blot left lower extremity to remove all dry skin and remaining bloodwith gauze and sterile saline 3. Apply Betadine paint to the incision, cover with Betadine soaked Adaptic 4. Cover with 4 x 4s, Curlex wrap, cast padding and 4 inch Stefan bandages from sulcus of toes to mid calf to left lower extremity. 5. Change every 2 days. Patient will need to follow-up with wound care center with Dr. Forman next 01/15/2024. Please call for appointment time and date. Discharge Orders/Prescriptions Prescriptions: New vancomycin 1.25 gram recon soln 1.25 g IV Q24H 39 Days Rx Instructions: stop date 02/16/25. Dx: foot osteomyelitis. Weekly bmp, cbc, esr, and vanc trough. Fax to [phone]. Routine picc care per protocol. insulin lispro [Humalog KwikPen Insulin] 100 unit/mL Insulin Pen See Protocol subcut TIDAC Qty: 0 0RF Protocol: 4. 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 or septic HIGH MEDIUM DOSING ALGORITHM sennosides-docusate sodium [Stimulant Laxative Plus] 8.6-50 mg Tablet 2 tab PO BID Qty: 0 0RF Continued meloxicam 7.5 mg tablet 7.5 mg PO DAILY terbinafine HCl 250 mg tablet 250 mg PO DAILY levothyroxine 150 mcg tablet 150 mcg PO DAILY Changed acetaminophen 500 mg tablet 1,000 mg PO TID 30 Days Qty: 0 0RF Discontinued acetaminophen [Mapap (acetaminophen)] 500 mg capsule 1,000 mg PO BID doxycycline hyclate 100 mg capsule 100 mg PO BID sennosides [Kaylene-nyasia] 8.6 mg tablet 8.6 mg PO BID PRN (Reason: constipation) Referrals / Follow Up: Jaden Forman DPM [Med Staff - Active Staff] - In 1 Week (Please follow-up the wound care center. Please call for appointment date and time. [phone]) Michael Meeks DO [Primary Care Provider] - Disposition Disposition (needs filled in before D/C Order can be placed): [facility] Facility Charges/Coding Visit Charges Inpatient E&M: 13512 Disch Hosp >30min 01/08/25 1422 <Electronically signed by Dusty Abad MD> Cosigner Signature (if applicable): CC: Dr. Dusty Abad MD; Dr. Michael Meeks DO~ Signed [facility] Work Phone: 1(461) 310-752106-19-2025 Discharge summary Author Dusty Abad [facility] Note Date/Time January 08, 2025 2:08 pm [facility] Medical Records Department [address] [place] [id number] [facility] MR#: [id number] Acct: [id number] Name: GANESH RAZO Rep #:[id number] : 1935 89 From: Dusty Sabillon PCP: Dr. Michael Meeks, DO Status:ADM IN Certification of patient admission REQUIRED AT TIME OF ADMISSION. I CERTIFY THAT POST-HOSPITAL ECF SERVICES ARE REQUIRED TO BE GIVEN ON AN IN-PATIENT BASIS BECAUSE OF THE ABOVE NAMED PATIENT'S NEED FOR ASSISTED CARE ON A CONTINUING BASIS FOR THE CONDITION(S) FOR WHICH HE/SHE WAS RECEIVING IN-PATIENT HOSPITAL SERVICES PRIOR TO HIS/HER TRANSFER TO THE ECF. 01/08/25 1408<Electronically signed by Dusty Abad MD> Diet Diet Order/Speech Therapy: INPATIENT Hospital Diet / Speech Therapy Order(s) 01/05/25 19:07 Diet: Carbohydrate Controlled Food consistency:: Mechanical (Minced/Moist) Liquid Consistency:: Regular/Thin Type of Dietary Supplement:: Lou Diet Comments: Lou BID w/ B&D, DIRECT SUP ALL FOOD/DRINK, No straws Routine Orders/Code Status Suppository Type: Dulcolax 10mg Suppository Frequency: Daily PRN DC O2, CPAP, BIPAP needs Home O2 Discharge instructions: No Wound(s) left elbow: Wound Type: Abrasion right elbow: Wound Type: Abrasion left foot pad: Wound Type: Neuropathic/Diabetic Foot Ulcer left plantar/lateral foot: Wound Type: Neuropathic/Diabetic Foot Ulcer Dressing Change: betadine Adaptic right lateral foot: Wound Type: Neuropathic/Diabetic Foot Ulcer Dressing Change: betadine Adaptic Therapies Extremity Affected:: Bilateral Lower Physical Therapy: Eval and Treat Occupational Therapy: Eval and Treat Speech Therapy: Eval and Treat Problem/Diagnosis (1) Sepsis: Status: Acute Code(s): A41.9 - Sepsis, unspecified organism (2) MSSA bacteremia: Status: Acute Code(s): R78.81 - Bacteremia; B95.61 - Methicillin susceptible Staphylococcus aureus infection as the cause of diseases classified elsewhere (3) Altered mental status: Status: Acute Code(s): R41.82 - Altered mental status, unspecified (4) Acute kidney injury: Status: Acute Code(s): N17.9 - Acute kidney failure, unspecified Plan # Staph MSSA bacteremia in the setting of cellulitis of the foot * Patient's blood cultures are growing staph aureus * on IV vancomycin and zosyn * ID on board as well as podiatry * Urinalysis does not show any evidence of UTI. * Wound cultures growing staph aureus podiatry on board. 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 * TTE showed no evidence of vegetation and showed normal left ventricular size and systolic function with EF of 55% and moderate to severe mitral annular calcification and mild aortic stenosis with aortic valve mildly to moderately calcified and it appears tricuspid. * Repeat blood cultures from 01/03/2025 still growing gram-positive cocci in clusters in 2 out of 2 blood samples. * For foot surgery tomorrow. 01/05: Plan for surgery today. Wound culture PCR shows MSSA. 01/06: Patient had incision bone cortex of fifth metatarsal and fifth digit left foot with delayed primary closure of left foot. Postop diagnosis same osteomyelitis left fifth metatarsal foot. ID recommending 6 weeks of IV antibiotic at discharge. Blood culture positive of staph. Repeat blood culturefrom 01/05 pending. 1 wound culture with MRSA. Continue Vanco and Zosyn. Vancomycin prescription written stop date 02/16/2025. 6 weeks of IV antibiotics. PICC line tomorrow if 01/05 blood culture remain negative 01/07: Wound looks good. Continue dressing as per surgeon, RN. Podiatry follow- up. #Acute encephalopathy likely due to MSSA bacteremia with history of dementia: Management as above. Blood culture from 01/06 prelim negative for 48 hours. Repeat blood culture from 01/06 is pending #Hyperglycemia: * This in the setting of impaired glucose tolerance. * Has known A1c of 6.1. * Will monitor closely for now and status sliding scale as needed #Thrombocytopenia: * Platelets are further down to 76 May be due to acute illness. Will monitor. * 01/05: Platelet count 83K. H&H 12/36.8%. #CASEY: * Will monitor creatinine and hydrate with IV fluids * Creatinine today is down to 1.51. * Was 1.95 on admission. Baseline creatinine is around 1.3. 01/05: BUN/creatinine 43/1.3. Continue and maintain intake and output charting and fluid correction #Hypothyroidism: On Synthroid #Debility and weakness with failure to thrive: PT OT on board. Fall precautions. #History of onycholysis: On terbinafine which was held due to worsening kidney function #Dementia: * Unclear if he has behavioral disturbance. He continues to remain lethargic * Started on melatonin. * If patient becomes agitated we will have to consider starting Seroquel. DVT prophylaxis: Heparin. Hold heparin due to dropping platelets. Admitting platelet count was 178 but patient had thrombocytopenia 1 40K on 09/17/2024. Andshowing improvement on Sunday therefore HIT it is unlikely Allergies/Procedures Done in Hospital Allergies shellfish derived Allergy (Verified 01/01/25 15:16) unknown Type of Care/Length of Stay Estimated LOS: Convalescent Care Less Than 30 days Type of Care Needed: Skilled Rehab Potential: Good Prognosis: Good Additional Orders/Day of Discharge Day of Discharge: 01/08/25 Dietary and Speech Recommendations Dietitian Recommendations/Changes: Continue regular diet per THEATER EDUCATION TEACHER recommendations. Continue lou BID with breakfast and dinner to promote wound healing. Will monitor weight trends. Discharge Plan Admission Admit Date/Time: 01/01/25 23:52 Primary Reason for Your Visit: Left foot osteomyelitis. Attending Provider: Dusty Abad Primary Care Provider: Michael Meeks Consulting Providers: Mei Mckenzie; Sofia Lopez; Juanjo Arias; Jaden Forman Instructions Additional Instructions / Restrictions: Wound care/dressing changes, left lower extremity: 1. Remove all Stefan bandages and outer dressing. 2. Lightly blot left lower extremity to remove all dry skin and remaining bloodwith gauze and sterile saline 3. Apply Betadine paint to the incision, cover with Betadine soaked Adaptic 4. Cover with 4 x 4s, Curlex wrap, cast padding and 4 inch Stefan bandages from sulcus of toes to mid calf to left lower extremity. 5. Change every 2 days. Patient will need to follow-up with wound care center with Dr. Forman next 01/15/2024. Please call for appointment time and date. Discharge Orders/Prescriptions Prescriptions: New vancomycin 1.25 gram recon soln 1.25 g IV Q24H 39 Days Rx Instructions: stop date 02/16/25. Dx: foot osteomyelitis. Weekly bmp, cbc, esr, and vanc trough. Fax to [phone]. Routine picc care per protocol. insulin lispro [Humalog KwikPen Insulin] 100 unit/mL Insulin Pen See Protocol subcut TIDAC Qty: 0 0RF Protocol: 4. 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 or septic HIGH MEDIUM DOSING ALGORITHM sennosides-docusate sodium [Stimulant Laxative Plus] 8.6-50 mg Tablet 2 tab PO BID Qty: 0 0RF Continued meloxicam 7.5 mg tablet 7.5 mg PO DAILY terbinafine HCl 250 mg tablet 250 mg PO DAILY levothyroxine 150 mcg tablet 150 mcg PO DAILY Changed acetaminophen 500 mg tablet 1,000 mg PO TID 30 Days Qty: 0 0RF Discontinued acetaminophen [Mapap (acetaminophen)] 500 mg capsule 1,000 mg PO BID doxycycline hyclate 100 mg capsule 100 mg PO BID sennosides [Kaylene-nyasia] 8.6 mg tablet 8.6 mg PO BID PRN (Reason: constipation) Referrals / Follow Up: Jaden Forman DPM [Med Staff - Active Staff] - In 1 Week (Please follow-up the wound care center. Please call for appointment date and time. [phone]) Michael Meeks DO [Primary Care Provider] - Disposition Disposition (needs filled in before D/C Order can be placed): [facility] Facility 01/08/25 1408 <Electronically signed by Dusty Abad MD> Cosigner Signature (if applicable): CC: CHESTER Forman; Dr. Mei Mckenzie DO; Dr. Sofia Lopez MD; Dr. Juanjo Arias MD; Dr. Michael Meeks DO ~ [facility] Work Phone: 1(350) 546-324406-19-2025 [facility]06-19-2025 Progress note Author [facility] Note Date/Time January 08, 2025 10:2 4am [facility] Medical Records Department [address] [place] [address] Progress Note - Infect Disease 01/08/25 1023 MR#: [id number] Acct: [id number] Name: GANESH RAZO Rep #:[id number] : 1935 89 From: Juanjo dias MD PCP: Dr. Michael Meeks, DO Status:ADM IN Location: [place] [address] Physical Exam Narrative Sleeping this AM, no fever Const no apparent distress Resp normal air movement and clear to auscultation bilaterally Cardio regular rate and regular rhythm GI soft to palpation, non-tender and non-distended Skin Skin Narrative: foot wrapped ID ID: Route of nutrition/ use of supplements: [] Nutritional Intake: [] IV Site: [] Holguin Catheter: [] Assessment & Plan Assessment/Plan (1) Sepsis: PLAN: sepsis due to L foot osteo complicated by mssa bacteremia. One wound cx with MRSA and one also with MRSE. Pt is DNR-CC. OR 12/05/[address] Forman. Will cont vanc. Bcx neg since 01/05. No veg seen on TTE but difficult study. Would need at least 6 weeks iv abx at discharge. Will write for iv vanc, stop date 02/16/25. Ordered picc for today. Will follow. ID followup in 2-3 weeks (2) MSSA bacteremia: (3) Altered mental status: (4) Acute kidney injury: 01/08/25 1024 <Electronically signed by Juanjo Arias MD> Cosigner Signature (if applicable): CC: ~ Signed [facility] Work Phone: 1(919) 712-912906-19-2025 Consult note Author Booker Lam [facility] Note Date/Time January 07, 2025 10:1 4pm [facility] Medical Records Department [address] [place] [address] Pharmacokinetic/Renal -Consult 01/07/25 2213 MR#: [id number] Acct: [id number] Name: GANESH RAZO Rep #:[id number] : 1935 89 From: Booker Lam PCP: Dr. Michael Meeks, DO Status:ADM IN Y Location: [place] [address] Consult Antibiotic Management Pharmacy has been consulted to manage selected antibiotic: Vancomycin Type of Intervention Type of Consult: Follow-up Labs Labs: Sodium 145 mmol/L (133-145) 01/07/25 05:54 Potassium 3.7 mmol/L (3.3-5.1) 01/07/25 05:54 Chloride 111 mmol/L (98-108) H 01/07/25 05:54 Carbon Dioxide 26.1 mmol/L (21.0-32.0) 01/07/25 05:54 Anion Gap 8 (5-15) 01/07/25 05:54 BUN 29 mg/dL (4-19) H 01/07/25 05:54 Creatinine 1.13 mg/dL (0.70-1.20) 01/07/25 05:54 Est GFR (MDRD) Non-Af 63 (>60) 01/07/25 05:54 BUN/Creatinine Ratio 25.2 RATIO (10-20) H 01/07/25 05:54 Glucose 119 mg/dL (70-99) H 01/07/25 05:54 Vancomycin Trough 11.9 ug/mL (5.0-15.0) 01/07/25 21:21 Microbiology Microbiology: Microbiology 01/05/25 07:35 Blood Culture (Wb) - Anticubital Right Blood Culture - Preliminary No growth in 48 hours. 01/03/25 10:00 Wound - Left Foot Gram Stain - Final 01/03/25 10:00 Wound - Left Foot Wound Culture - Final Meth. resistant Staph. aureus 01/03/25 10:00 Wound - Left Foot Anaerobic Culture - Final No anaerobic bacteria isolated. 01/05/25 17:00 Bone - Metatarsal Gram Stain - Final 01/05/25 17:00 Bone - Metatarsal Wound Culture - Preliminary 01/05/25 17:00 Tissue - 5th Toe Gram Stain - Final 01/05/25 17:00 Tissue - 5th Toe Wound Culture - Preliminary Staphylococcus aureus 01/05/25 17:00 Tissue - Left Foot Gram Stain - Final 01/05/25 17:00 Tissue - Left Foot Wound Culture - Preliminary 01/05/25 17:00 Wound Abcess - Aerobic & Anaerobic Swabs Gram Stain - Final 01/05/25 17:00 Wound Abcess - Aerobic & Anaerobic Swabs Wound Culture - Preliminary Gram positive organism 01/05/25 17:00 Wound Abcess - Aerobic & Anaerobic Swabs Gram Stain - Final 01/05/25 17:00 Wound Abcess - Aerobic & Anaerobic Swabs Wound Culture - Preliminary Staphylococcus aureus 01/03/25 06:15 Blood Culture (Wb) - Right Hand Blood Culture - Final Staphylococcus aureus 01/03/25 06:15 Blood Culture (Wb) - Venous Blood Culture - Final Staphylococcus aureus 01/02/25 11:55 Blood Culture (Wb) - Left Wrist Blood Culture - Final Staphylococcus aureus 01/01/25 17:10 Urine Catheter - Catheter Urine Culture - Final Culture exhibits no growth. 01/02/25 03:57 Wound - Left Foot Gram Stain - Final 01/02/25 03:57 Wound - Left Foot Wound Culture - Final Staphylococcus aureus 01/02/25 03:57 Wound - Left Foot Skin and Soft Tissue MRSA/MSSA (PCR - Final Staphylococcus aureus 01/01/25 15:30 Blood Culture (Wb) - Arm Left Blood Culture - Final Staphylococcus aureus 01/01/25 15:25 Blood Culture (Wb) - Right Forearm Bacteria Detection (PCR) - Final Staphylococcus aureus 01/01/25 15:25 Blood Culture (Wb) - Right Forearm Blood Culture - Final Staphylococcus aureus 01/02/25 02:05 Mucosa - Nasopharyngeal Respiratory Panel (PCR) - Final 01/02/25 02:05 Mucosa - Nasopharyngeal Coronavirus COVID-19 PCR - Final Dosing Weight Weight used for dosin.7 kg Estimated Creatinine Clearance Estimated Creatinine Clearance: 54 Goal Trough Goal Trough: 10-15 mcg/mL Pharmacy Plan for Drug Dosing Pharmacy Plan for Drug Dosing: Vancomycin trough level of 11.9, drawn 22.5hrs post-dose, was within the target range of 10-15. Will continue dosing at 1250mg q24h, and will draw another trough level in four days. Pharmacy Service will continue to monitor and adjust dosing as required. Follow-Up Labs Follow-Up Labs: Trough: Vancomycin Date/Time Labs Ordered Labs to be done on [date and time ordered]: 01/11/25 @2130 01/07/252213 <Electronically signed by Booker bradley> Date _ Booker Lam Cosigner Signature (if applicable): Date CC: ~ Signed [facility] Work Phone: 1(826) 278-528106-18-2025 Progress note Author Dusty Abad [facility] Note Date/Time January 07, 2025 5:11 pm [facility] Medical Records Department [address] [place] [address] Progress Note - Hospitalist 01/07/25918 MR#: [id number] Acct: [id number] Name: GANESH RAZO Rep #:[id number] : 1935 89 From: Dusty Sabillon PCP: Dr. Michael Meeks, DO Status:ADM IN Location: [place] [address] Reason for Visit Reason for Visit: Diagnoses Sepsis, unspecified organism (01/01/25) Methicillin susceptible Staphylococcus aureus infection as the cause of diseasesclassified elsewhere (01/01/25) Other toxic encephalopathy (01/01/25) Cellulitis of left lower limb (01/01/25) Non-pressure chronic ulcer of other part of left foot with necrosis of bone (01/01/25) Osteomyelitis, unspecified (01/01/25) Acute kidney failure, unspecified (01/01/25) Tachycardia, unspecified (01/01/25) Altered mental status, unspecified (01/01/25) Fever, unspecified (01/01/25) Hyperglycemia, unspecified (01/01/25) Bacteremia (01/01/25) Unspecified open wound, left foot, initial encounter (01/01/25) Objective Data Objective Data Vital Signs: Vital Signs Temp Pulse Resp BP Pulse Ox O2 Del Method O2 Flow Rate 97.7 F L 60 18 164/73 H 94 Nasal Cannula 2 01/07/25 05:44 01/07/25 05:44 01/07/25 05:44 01/07/25 05:44 01/07/25 05:44 01/07/25 08:03 01/07/25 08:03 Oxygen Flow Rate (L/min) 2 Oxygen Delivery Method Nasal Cannula Weight: 197 lb 12.074 oz Body Mass Index (BMI) 24.7 Intake & Output: Intake and Output for Last 24 Hours 01/05/25 01/06/25 01/07/25 23:59 23:59 23:59 Intake Total 375 / 375 2145 / 2145 325 / 325 Output Total 760 / 960 1550 / 1550 Balance -385 / -585 595 / 595 325 / 325 Lab / Micro Data 01/07/25 05:54 01/07/25 05:54 Labs: Laboratory Results - last 24 hr 01/06/25 12:01: POC Glucose 114 H 01/06/25 16:53: POC Glucose 154 H 01/07/25 05:54: WBC 6.7, RBC 3.44 L, Hgb 11.1 L, Hct 34.5 L, MCV 100.3 H, MCH 32.3 H, MCHC 32.2, RDW Std Deviation 48.7 H, RDW Coeff of Gary 13.2, Plt Count 127 L, MPV 11.0, Immature Gran % (Auto) 4.500 H, Neut % (Auto) 74.1 H, Lymph % (Auto) 10.3 L, [place] % (Auto) 8.0, Eos % (Auto) 2.7, Baso % (Auto) 0.4, Absolute Neuts (auto) 5.0, Absolute Lymphs (auto) 0.69 L, Nucleated RBC % 0, Sodium 145, Potassium 3.7, Chloride 111 H, Carbon Dioxide 26.1, Anion Gap 8, BUN 29 H, Creatinine 1.13, Estim Creat Clear Calc 54.01, Est GFR (MDRD) Non-Af 63, BUN/Creatinine Ratio 25.2 H, Glucose 119 H, Calcium 9.0 01/07/25 06:07: POC Glucose 114 H Micro: Microbiology 01/05/25 17:00 Bone - Metatarsal Gram Stain - Final 01/05/25 17:00 Bone - Metatarsal Wound Culture - Preliminary No growth-Final to follow 01/05/25 17:00 Tissue - 5th Toe Gram Stain - Final 01/05/25 17:00 Tissue - Left Foot Gram Stain - Final 01/05/25 17:00 Tissue - Left Foot Wound Culture - Preliminary No growth-Final to follow 01/05/25 17:00 Wound Abcess - Aerobic & Anaerobic Swabs Gram Stain - Final 01/05/25 17:00 Wound Abcess - Aerobic & Anaerobic Swabs Wound Culture - Preliminary No growth-Final to follow 01/05/25 17:00 Wound Abcess - Aerobic & Anaerobic Swabs Gram Stain - Final 01/03/25 06:15 Blood Culture (Wb) - Right Hand Blood Culture - Final Staphylococcus aureus 01/03/25 06:15 Blood Culture (Wb) - Venous Blood Culture - Final Staphylococcus aureus 01/03/25 10:00 Wound - Left Foot Gram Stain - Final 01/03/25 10:00 Wound - Left Foot Wound Culture - Final Meth. resistant Staph. aureus 01/03/25 10:00 Wound - Left Foot Anaerobic Culture - Preliminary Checking for anaerobes, further studies to follow. 01/02/25 11:55 Blood Culture (Wb) - Left Wrist Blood Culture - Final Staphylococcus aureus 01/01/25 17:10 Urine Catheter - Catheter Urine Culture - Final Culture exhibits no growth. 01/02/25 03:57 Wound - Left Foot Gram Stain - Final 01/02/25 03:57 Wound - Left Foot Wound Culture - Final Staphylococcus aureus 01/02/25 03:57 Wound - Left Foot Skin and Soft Tissue MRSA/MSSA (PCR - Final Staphylococcus aureus 01/01/25 15:30 Blood Culture (Wb) - Arm Left Blood Culture - Final Staphylococcus aureus 01/01/25 15:25 Blood Culture (Wb) - Right Forearm Bacteria Detection (PCR) - Final Staphylococcus aureus 01/01/25 15:25 Blood Culture (Wb) - Right Forearm Blood Culture - Final Staphylococcus aureus 01/02/25 02:05 Mucosa - Nasopharyngeal Respiratory Panel (PCR) - Final 01/02/25 02:05 Mucosa - Nasopharyngeal Coronavirus COVID-19 PCR - Final Physical Exam Narrative Seen and examined. Discussed with the engineer technical staff Last evening patient was agitated and aggressive about 7 PM. IV Haldol and IM Phenergan was ordered. In the morning today patient is more drowsy but awake. Left foot dressing was done. He is on a pur?ed diet on supervised feed Physical exam General: Lethargic but awake, dementia. Orientation cannot be ascertained or disoriented HEENT: Atraumatic, PERRLA, EOMI, Normocephalic. Oral: Oral mucosa dry. No Gingival or Mucosal Lesions/ Ulcerations Neck: Supple, No JVD, Negative Carotid Bruits Chest wall/Lungs: Air entry diminished in bilateral lung bases. No crepitation/rhonchi Cardiovascular: Regular rate and rhythm, Normal S1,S2, No M/G/R Abdomen: Bowel Sounds Present, Soft, Non Tender, Non-Distended : No dysuria. No renal angle tenderness. No suprapubic tenderness. Extremities: No edema, Capillary Refill Less than 3 Seconds Skin: Bilateral feet on the heel pad questions. Left foot bandage. Primary closure done. Musculoskeletal: ROM limited at knees and hips. Decreased muscle mass. No Tenderness to Palpation of Joints or Extremities Neurological: detailed neuroexam unobtainable no acute focal neurological deficit. Psych/Mental Status: Flat affect. Dementia Assessment & Plan Assessment/Plan (1) Osteomyelitis of left foot: (2) MSSA bacteremia: (3) Sepsis: (4) Cellulitis of left foot: PLAN: Plan # Staph MSSA bacteremia in the setting of cellulitis of the foot * Patient's blood cultures are growing staph aureus * on IV vancomycin and zosyn * ID on board as well as podiatry * Urinalysis does not show any evidence of UTI. * Wound cultures growing staph aureus podiatry on board. 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 * TTE showed no evidence of vegetation and showed normal left ventricular size and systolic function with EF of 55% and moderate to severe mitral annular calcification and mild aortic stenosis with aortic valve mildly to moderately calcified and it appears tricuspid. * Repeat blood cultures from 01/03/2025 still growing gram-positive cocci in clusters in 2 out of 2 blood samples. * For foot surgery tomorrow. 01/05: Plan for surgery today. Wound culture PCR shows MSSA. 01/06: Patient had incision bone cortex of fifth metatarsal and fifth digit left foot with delayed primary closure of left foot. Postop diagnosis same osteomyelitis left fifth metatarsal foot. ID recommending 6 weeks of IV antibiotic at discharge. Blood culture positive of staph. Repeat blood culturefrom 01/05 pending. 1 wound culture with MRSA. Continue Vanco and Zosyn. Vancomycin prescription written stop date 02/16/2025. 6 weeks of IV antibiotics. PICC line tomorrow if 01/05 blood culture remain negative 01/07: Wound looks good. Continue dressing as per surgeon, PHYLICIA. Podiatry follow- up. #Acute encephalopathy likely due to MSSA bacteremia with history of dementia: Management as above. Blood culture from 01/06 prelim negative for 48 hours. Repeat blood culture from 01/06 is pending #Hyperglycemia: * This in the setting of impaired glucose tolerance. * Has known A1c of 6.1. * Will monitor closely for now and status sliding scale as needed #Thrombocytopenia: * Platelets are further down to 76 May be due to acute illness. Will monitor. * 01/05: Platelet count 83K. H&H 12/36.8%. #CASEY: * Will monitor creatinine and hydrate with IV fluids * Creatinine today is down to 1.51. * Was 1.95 on admission. Baseline creatinine is around 1.3. 01/05: BUN/creatinine 43/1.3. Continue and maintain intake and output charting and fluid correction #Hypothyroidism: On Synthroid #Debility and weakness with failure to thrive: PT OT on board. Fall precautions. #History of onycholysis: On terbinafine which was held due to worsening kidney function #Dementia: * Unclear if he has behavioral disturbance. He continues to remain lethargic * Started on melatonin. * If patient becomes agitated we will have to consider starting Seroquel. DVT prophylaxis: Heparin. Hold heparin due to dropping platelets. Admitting platelet count was 178 but patient had thrombocytopenia 1 40K on 09/17/2024. Andshowing improvement on Sunday therefore HIT it is unlikely Charges/Coding Visit Charges Inpatient E&M: 25873 Subs Hosp L2 01/07/25 1711 <Electronically signed by Dusty Abad MD> Cosigner Signature (if applicable): CC: ~ Signed [facility] Work Phone: [phone] 628-945906-18-2025 Progress note Author Juanjo Arias [facility] Note Date/Time January 07, 2025 2:24 pm [facility] Medical Records Department [address] [place] [address] Progress Note - Infect Disease 01/07/25 1422 MR#: [id number] Acct: [id number] Name: GANESH RAZO Rep #:[id number] : 1935 89 From: Juanjo dias MD PCP: Dr. Michael Meeks, DO Status:ADM IN Location: [place] [id number] Physical Exam Narrative Feeling ok, denies pain, no fever Const no apparent distress Resp normal air movement and clear to auscultation bilaterally Cardio regular rate and regular rhythm GI soft to palpation, non-tender and non-distended Skin Skin Narrative: foot wrapped ID ID: Route of nutrition/ use of supplements: [] Nutritional Intake: [] IV Site: [] Holguin Catheter: [] Assessment & Plan Assessment/Plan (1) Sepsis: PLAN: sepsis due to L foot osteo complicated by mssa bacteremia. One wound cx with MRSA. Pt is DNR-CC. OR 12/05/[address] Forman. Will cont vanc/zosyn. Bcx neg since 01/05. No veg seen on TTE but difficult study. Would need at least 6 weeks iv abx at discharge. Will write for iv vanc, stop date 02/16/25. Ok for picc tomorrow if bcx from 01/05/25 remain neg. Will follow. ID followup in 2-3 weeks (2) MSSA bacteremia: (3) Altered mental status: (4) Acute kidney injury: 01/07/25 1424 <Electronically signed by Juanjo Arias MD> Cosigner Signature (if applicable): CC: ~ Signed [facility] Work Phone: [phone]) 485-100006-17-2025 Progress note Author Jaden Forman [facility] Note Date/Time January 06, 2025 5:23 pm [facility] Medical Records Department [address] [place] [address] Progress Note - Surgery 01/06/25 1716 MR#: [id number] Acct: [id number] Name: GANESH RAZO Rep #:[id number] : 1935 89 From: Jaden Forman D PM PCP: Dr. Michael Meeks, DO Status:ADM IN Location: [place] [id number] Subjective Subjective Mr. Razo is a 89-year-old male seen at bedside today for follow-up evaluation status post of incision bone cortex of the fifth metatarsal, fifth digit and delayed primary closure of the left foot. DOS: 01/05/2025. Patient was up in a chair and back to his baseline, that it was seen at the wound care center prior to hospital admission. Was able to deny constitutional symptoms. He does deny any pain to the left foot. No other pedal complaints at this time. Objective Data Objective Data Vital Signs: Vital Signs Temp Pulse Resp BP Pulse Ox O2 Del Method O2 Flow Rate 97.8 F 72 18 121/80 H 93 Nasal Cannula 2 01/06/25 12:00 01/06/25 12:00 01/06/25 12:00 01/06/25 12:00 01/06/25 12:00 01/06/25 14:00 01/06/25 14:00 Oxygen Flow Rate (L/min) 2 Oxygen Delivery Method Nasal Cannula Weight: 89.7 kg Body Mass Index (BMI) 24.7 Intake & Output: Intake and Output for Last 24 Hours 01/04/25 01/05/25 01/06/25 23:59 23:59 23:59 Intake Total 685 / 685 375 / 375 2095 / 2095 Output Total 700 / 950 760 / 960 1050 / 1050 Balance -15 / -265 -385 / -585 1045 / 1045 Lab / Micro Data 01/06/25 06:15 01/06/25 06:15 Labs: Laboratory Results - last 24 hr 01/05/25 21:29: Vancomycin Trough 9.8 01/06/25 06:15: WBC 6.2, RBC 3.58 L, Hgb 11.5 L, Hct 35.8 L, MCV 100.0 H, MCH 32.1 H, MCHC 32.1, RDW Std Deviation 48.8 H, RDW Coeff of Gary 13.2, Plt Count 106 L, MPV 11.3, Immature Gran % (Auto) 2.100 H, Neut % (Auto) 78.2 H, Lymph % (Auto) 9.2 L, [place] % (Auto) 8.4, Eos % (Auto) 1.8, Baso % (Auto) 0.3, Absolute Neuts (auto) 4.8, Absolute Lymphs (auto) 0.57 L, Nucleated RBC % 0, Sodium 146 H, Potassium 3.9, Chloride 111 H, Carbon Dioxide 25.7, Anion Gap 9, BUN 33 H, Creatinine 1.18, Estim Creat Clear Calc 51.72, Est GFR (MDRD) Non-Af 59 L, BUN/Creatinine Ratio 27.8 H, Glucose 127 H, Calcium 9.2 01/06/25 06:55: POC Glucose 113 H 01/06/25 12:01: POC Glucose 114 H Micro: Microbiology 01/05/25 17:00 Bone - Metatarsal Gram Stain - Final 01/05/25 17:00 Bone - Metatarsal Wound Culture - Preliminary No growth-Final to follow 01/05/25 17:00 Tissue - 5th Toe Gram Stain - Final 01/05/25 17:00 Tissue - Left Foot Gram Stain - Final 01/05/25 17:00 Tissue - Left Foot Wound Culture - Preliminary No growth-Final to follow 01/05/25 17:00 Wound Abcess - Aerobic & Anaerobic Swabs Gram Stain - Final 01/05/25 17:00 Wound Abcess - Aerobic & Anaerobic Swabs Wound Culture - Preliminary No growth-Final to follow 01/05/25 17:00 Wound Abcess - Aerobic & Anaerobic Swabs Gram Stain - Final 01/03/25 06:15 Blood Culture (Wb) - Right Hand Blood Culture - Final Staphylococcus aureus 01/03/25 06:15 Blood Culture (Wb) - Venous Blood Culture - Final Staphylococcus aureus 01/03/25 10:00 Wound - Left Foot Gram Stain - Final 01/03/25 10:00 Wound - Left Foot Wound Culture - Final Meth. resistant Staph. aureus 01/03/25 10:00 Wound - Left Foot Anaerobic Culture - Preliminary Checking for anaerobes, further studies to follow. 01/02/25 11:55 Blood Culture (Wb) - Left Wrist Blood Culture - Final Staphylococcus aureus 01/01/25 17:10 Urine Catheter - Catheter Urine Culture - Final Culture exhibits no growth. 01/02/25 03:57 Wound - Left Foot Gram Stain - Final 01/02/25 03:57 Wound - Left Foot Wound Culture - Final Staphylococcus aureus 01/02/25 03:57 Wound - Left Foot Skin and Soft Tissue MRSA/MSSA (PCR - Final Staphylococcus aureus 01/01/25 15:30 Blood Culture (Wb) - Arm Left Blood Culture - Final Staphylococcus aureus 01/01/25 15:25 Blood Culture (Wb) - Right Forearm Bacteria Detection (PCR) - Final Staphylococcus aureus 01/01/25 15:25 Blood Culture (Wb) - Right Forearm Blood Culture - Final Staphylococcus aureus 01/02/25 02:05 Mucosa - Nasopharyngeal Respiratory Panel (PCR) - Final 01/02/25 02:05 Mucosa - Nasopharyngeal Coronavirus COVID-19 PCR - Final Radiography Diagnostic Testing: Radiology Impression Foot X-Ray 01/05/25 14:30 IMPRESSION: As above. Reading Location: [id number] Physical Exam Narrative Vascular: DP and PT pulse are palp of the left lower extremity. No erythema is appreciated. Skin temperature is warm to warm from proximal ankles to distal digits left lower extremity. Neurological: Light touch intact. Dermatological: Incision is well coapted with suture. No erythema, drainage or sign of infection. Erythema has improved. No malodor. Negative probe to bone. Musculoskeletal: Mild pain on palpation to the incision on the left foot. No pain with calf pressure. Assessment & Plan Assessment/Plan (1) Osteomyelitis of left foot: PLAN: Patient was examined and evaluated. All findings were discussed with the patient. All questions were answered to the patient satisfaction. Patient was seen at bedside today for left lower extremity dressing change. Patient is status post incision bone cortex of the fifth metatarsal, fifth digitwith delayed primary closure and full-thickness wound to the left foot. DOS: 01/06/2025. Patient is recovering well. The incision was dressed with Betadine soaked Adaptic dry sterile dressing and a single-layer Salguero compression bandagewas donned to left lower extremity. WBC: 6.2 Repeat blood cultures, 01/05: Pending Surgical cultures: Pending Pathology: Pending Left foot wound culture (01/03/2025): MRSA Left foot wound culture (01/02/2025): Staph aureus Infectious disease: On board, IV antibiotics vancomycin/Zosyn. Recommending 6 weeks PICC line antibiotics at discharge. Medicine: On board, medical management PT/OT: On board From a podiatry standpoint patient is cleared to discharge back to facility oncecleared by medicine and infectious disease team. Wound care instructions will be placed in discharge paperwork. Patient is to follow-up with Dr. Forman at the wound care center next Sunday. Please call for appointment date and time. Podiatry to continue to follow but from a distance. Please reach out to Dr. Forman for any question or concerns. Dressing was changed today and will need to remain clean dry and intact prior to discharge. Please have wound care nurse change dressing before patient is discharged. Thank you for letting me be involved in the patient care. (2) Cellulitis of left foot: (3) Non-pressure chronic ulcer of other part of left foot with necrosis of bone: 01/06/25 1723 <Electronically signed by Jaden Forman DPM> Cosigner Signature (if applicable): CC: ~ Signed [facility] Work Phone: [phone] Progress note Author Dusty Abad [facility] Note Date/Time January 06, 2025 1:20 pm [facility] Medical Records Department [address] [place] [address] Progress Note - Hospitalist 01/06/2510 MR#: [id number] Acct: [id number] Name: GANESH RAZO Rep #:[id number] : 1935 89 From: Dusty Sabillon PCP: Dr. Michael Meeks, DO Status:ADM IN Location: [place] [address] Reason for Visit Reason for Visit: Diagnoses Sepsis, unspecified organism (01/01/25) Methicillin susceptible Staphylococcus aureus infection as the cause of diseasesclassified elsewhere (01/01/25) Other toxic encephalopathy (01/01/25) Cellulitis of left lower limb (01/01/25) Non-pressure chronic ulcer of other part of left foot with necrosis of bone (01/01/25) Osteomyelitis, unspecified (01/01/25) Acute kidney failure, unspecified (01/01/25) Tachycardia, unspecified (01/01/25) Altered mental status, unspecified (01/01/25) Fever, unspecified (01/01/25) Hyperglycemia, unspecified (01/01/25) Bacteremia (01/01/25) Unspecified open wound, left foot, initial encounter (01/01/25) Objective Data Objective Data Vital Signs: Vital Signs Temp Pulse Resp BP Pulse Ox O2 Del Method O2 Flow Rate 98.0 F 62 18 126/81 H 97 Nasal Cannula 2 01/06/25 08:21 01/06/25 08:21 01/06/25 08:21 01/06/25 08:21 01/06/25 08:21 01/06/25 08:21 01/06/25 03:33 Oxygen Flow Rate (L/min) 2 Oxygen Delivery Method Nasal Cannula Weight: 197 lb 12.074 oz Body Mass Index (BMI) 24.7 Intake & Output: Intake and Output for Last 24 Hours 01/04/25 01/05/25 01/06/25 23:59 23:59 23:59 Intake Total 685 / 685 375 / 375 1325 / 1325 Output Total 700 / 950 760 / 960 450 / 450 Balance -15 / -265 -385 / -585 875 / 875 Lab / Micro Data 01/06/25 06:15 01/06/25 06:15 Labs: Laboratory Results - last 24 hr 01/05/25 09:39: POC Glucose 137 H 01/05/25 14:52: POC Glucose 130 H 01/05/25 21:29: Vancomycin Trough 9.8 01/06/25 06:15: WBC 6.2, RBC 3.58 L, Hgb 11.5 L, Hct 35.8 L, MCV 100.0 H, MCH 32.1 H, MCHC 32.1, RDW Std Deviation 48.8 H, RDW Coeff of Gary 13.2, Plt Count 106 L, MPV 11.3, Immature Gran % (Auto) 2.100 H, Neut % (Auto) 78.2 H, Lymph % (Auto) 9.2 L, [place] % (Auto) 8.4, Eos % (Auto) 1.8, Baso % (Auto) 0.3, Absolute Neuts (auto) 4.8, Absolute Lymphs (auto) 0.57 L, Nucleated RBC % 0, Sodium 146 H, Potassium 3.9, Chloride 111 H, Carbon Dioxide 25.7, Anion Gap 9, BUN 33 H, Creatinine 1.18, Estim Creat Clear Calc 51.72, Est GFR (MDRD) Non-Af 59 L, BUN/Creatinine Ratio 27.8 H, Glucose 127 H, Calcium 9.2 01/06/25 06:55: POC Glucose 113 H Micro: Microbiology 01/05/25 17:00 Bone - Metatarsal Wound Culture - Preliminary No growth-Final to follow 01/05/25 17:00 Tissue - 5th Toe Wound Culture - Preliminary 01/05/25 17:00 Tissue - Left Foot Wound Culture - Preliminary No growth-Final to follow 01/05/25 17:00 Wound Abcess - Aerobic & Anaerobic Swabs Wound Culture - Preliminary 01/05/25 17:00 Wound Abcess - Aerobic & Anaerobic Swabs Wound Culture - Preliminary No growth-Final to follow 01/03/25 06:15 Blood Culture (Wb) - Right Hand Blood Culture - Final Staphylococcus aureus 01/03/25 06:15 Blood Culture (Wb) - Venous Blood Culture - Final Staphylococcus aureus 01/03/25 10:00 Wound - Left Foot Gram Stain - Final 01/03/25 10:00 Wound - Left Foot Wound Culture - Final Meth. resistant Staph. aureus 01/03/25 10:00 Wound - Left Foot Anaerobic Culture - Preliminary Checking for anaerobes, further studies to follow. 01/02/25 11:55 Blood Culture (Wb) - Left Wrist Blood Culture - Final Staphylococcus aureus 01/01/25 17:10 Urine Catheter - Catheter Urine Culture - Final Culture exhibits no growth. 01/02/25 03:57 Wound - Left Foot Gram Stain - Final 01/02/25 03:57 Wound - Left Foot Wound Culture - Final Staphylococcus aureus 01/02/25 03:57 Wound - Left Foot Skin and Soft Tissue MRSA/MSSA (PCR - Final Staphylococcus aureus 01/01/25 15:30 Blood Culture (Wb) - Arm Left Blood Culture - Final Staphylococcus aureus 01/01/25 15:25 Blood Culture (Wb) - Right Forearm Bacteria Detection (PCR) - Final Staphylococcus aureus 01/01/25 15:25 Blood Culture (Wb) - Right Forearm Blood Culture - Final Staphylococcus aureus 01/02/25 02:05 Mucosa - Nasopharyngeal Respiratory Panel (PCR) - Final 01/02/25 02:05 Mucosa - Nasopharyngeal Coronavirus COVID-19 PCR - Final Radiography Diagnostic Testing: Radiology Impression Foot X-Ray 01/05/25 14:30 IMPRESSION: As above. Reading Location: [place] [address] Physical Exam Narrative Seen and examined. Discussed with the engineer technical staff Patient looks more awake and he spoke few words in phrases. Pressures were not comprehensible but kind of affect like saying his neck is hurting and he did nothad bowel movement. Patient also eating less. As per RN, he has dementia and has been disoriented not answering full question for last 2 days on his assessment. He is on a pur?ed diet. Physical exam General: Awake, dementia. Orientation cannot be ascertained or disoriented HEENT: Atraumatic, PERRLA, EOMI, Normocephalic. Oral: Oral mucosa dry. No Gingival or Mucosal Lesions/ Ulcerations Neck: Supple, No JVD, Negative Carotid Bruits Chest wall/Lungs: Air entry diminished in bilateral lung bases. No crepitation/rhonchi Cardiovascular: Regular rate and rhythm, Normal S1,S2, No M/G/R Abdomen: Bowel Sounds Present, Soft, Non Tender, Non-Distended : No dysuria. No renal angle tenderness. No suprapubic tenderness. Extremities: No edema, Capillary Refill Less than 3 Seconds Skin: Bilateral feet on the heel pad questions. Left foot bandage. Musculoskeletal: ROM limited at knees and hips. Decreased muscle mass. No Tenderness to Palpation of Joints or Extremities Neurological: detailed neuroexam unobtainable no acute focal neurological deficit. Psych/Mental Status: Flat affect. Dementia Assessment & Plan Assessment/Plan (1) Osteomyelitis of left foot: (2) MSSA bacteremia: (3) Sepsis: (4) Cellulitis of left foot: PLAN: Plan # Staph MSSA bacteremia in the setting of cellulitis of the foot * Patient's blood cultures are growing staph aureus * on IV vancomycin and zosyn * ID on board as well as podiatry * Urinalysis does not show any evidence of UTI. * Wound cultures growing staph aureus podiatry on board. 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 * TTE showed no evidence of vegetation and showed normal left ventricular size and systolic function with EF of 55% and moderate to severe mitral annular calcification and mild aortic stenosis with aortic valve mildly to moderately calcified and it appears tricuspid. * Repeat blood cultures from 01/03/2025 still growing gram-positive cocci in clusters in 2 out of 2 blood samples. * For foot surgery tomorrow. 01/05: Plan for surgery today. Wound culture PCR shows MSSA. 01/06: Patient had incision bone cortex of fifth metatarsal and fifth digit left foot with delayed primary closure of left foot. Postop diagnosis same osteomyelitis left fifth metatarsal foot. ID recommending 6 weeks of IV antibiotic at discharge. Blood culture positive of staph. Repeat blood culturefrom 01/05 pending #Acute encephalopathy likely due to MSSA bacteremia with history of dementia: Management as above #Hyperglycemia: * This in the setting of impaired glucose tolerance. * Has known A1c of 6.1. * Will monitor closely for now and status sliding scale as needed #Thrombocytopenia: * Platelets are further down to 76 May be due to acute illness. Will monitor. * 01/05: Platelet count 83K. H&H 12/36.8%. #CASEY: * Will monitor creatinine and hydrate with IV fluids * Creatinine today is down to 1.51. * Was 1.95 on admission. Baseline creatinine is around 1.3. 01/05: BUN/creatinine 43/1.3. Continue and maintain intake and output charting and fluid correction #Hypothyroidism: On Synthroid #Debility and weakness with failure to thrive: PT OT on board. Fall precautions. #History of onycholysis: On terbinafine which was held due to worsening kidney function #Dementia: * Unclear if he has behavioral disturbance. He continues to remain lethargic * Started on melatonin. * If patient becomes agitated we will have to consider starting Seroquel. DVT prophylaxis: Heparin. Hold heparin due to dropping platelets. Admitting platelet count was 178 but patient had thrombocytopenia 1 40K on 09/17/2024. Andshowing improvement on Sunday therefore HIT it is unlikely Charges/Coding Visit Charges Inpatient E&M: 84247 Subs Hosp L2 01/06/25 1320 <Electronically signed by Dusty Abad MD> Cosigner Signature (if applicable): CC: ~ Signed [facility] Work Phone: [phone]) 390-165706-17-2025 Progress note Author Juanjo Arias [facility] Note Date/Time January 06, 2025 10:0 2am [facility] Medical Records Department [address] [place] [address] Progress Note - Infect Disease 01/06/25 1001 MR#: [id number] Acct: [id number] Name: GANESH RAZO Rep #:[id number] : 1935 89 From: Juanjo dias MD PCP: Dr. Michael Meeks, DO Status:ADM IN Location: [place] [address] Physical Exam Narrative More awake this AM, no fever, denies pain Const no apparent distress Orientation / Consciousness: confused Resp normal air movement and clear to auscultation bilaterally Cardio regular rate and regular rhythm GI soft to palpation, non-tender and non-distended Skin no rashes or lesions noted ID ID: Route of nutrition/ use of supplements: [] Nutritional Intake: [] IV Site: [] Holguin Catheter: [] Assessment & Plan Assessment/Plan (1) Sepsis: PLAN: sepsis due to L foot osteo complicated by mssa bacteremia. Pt is DNR-CC. OR 12/05/[address] Forman. Will cont vanc/zosyn and check repeat bcx. No veg seen on TTE but difficult study. Would need at least 6 weeks iv abx at discharge. Will follow, d/w correctional counselor/case manager (2) MSSA bacteremia: (3) Altered mental status: (4) Acute kidney injury: 01/06/25 1002 <Electronically signed by Juanjo Arias MD> Cosigner Signature (if applicable): CC: ~ Signed [facility] Work Phone: 1(578) 143-306306-17-2025 Consult note Author Alberto Kolb [facility] Note Date/Time January 05, 2025 10:1 3pm [facility] Medical Records Department [address] [place] [address] Pharmacokinetic/Renal -Consult 01/05/252 MR#: [id number] Acct: [id number] Name: GANESH RAZO Rep #:[id number] : 1935 89 From: Alberto Paz od PCP: Dr. Michael Meeks, DO Status:ADM IN Location: [place] [address] Consult Antibiotic Management Pharmacy has been consulted to manage selected antibiotic: Vancomycin Type of Intervention Type of Consult: Follow-up Labs Labs: Sodium 144 mmol/L (133-145) 01/05/25 04:55 Potassium 3.6 mmol/L (3.3-5.1) 01/05/25 04:55 Chloride 108 mmol/L (98-108) 01/05/25 04:55 Carbon Dioxide 25.0 mmol/L (21.0-32.0) 01/05/25 04:55 Anion Gap 11 (5-15) 01/05/25 04:55 BUN 43 mg/dL (4-19) H 01/05/25 04:55 Creatinine 1.30 mg/dL (0.70-1.20) H 01/05/25 04:55 Est GFR (MDRD) Non-Af 53 (>60) L 01/05/25 04:55 BUN/Creatinine Ratio 32.8 RATIO (10-20) H 01/05/25 04:55 Glucose 148 mg/dL (70-99) H 01/05/25 04:55 Vancomycin Trough 9.8 ug/mL (5.0-15.0) 01/05/25 21:29 Microbiology Microbiology: Microbiology 01/03/25 10:00 Wound - Left Foot Gram Stain - Final 01/03/25 10:00 Wound - Left Foot Wound Culture - Final Meth. resistant Staph. aureus 01/03/25 10:00 Wound - Left Foot Anaerobic Culture - Preliminary Checking for anaerobes, further studies to follow. 01/03/25 06:15 Blood Culture (Wb) - Venous Blood Culture - Preliminary Staphylococcus aureus 01/03/25 06:15 Blood Culture (Wb) - Right Hand Blood Culture - Preliminary Staphylococcus aureus 01/02/25 11:55 Blood Culture (Wb) - Left Wrist Blood Culture - Final Staphylococcus aureus 01/01/25 17:10 Urine Catheter - Catheter Urine Culture - Final Culture exhibits no growth. 01/02/25 03:57 Wound - Left Foot Gram Stain - Final 01/02/25 03:57 Wound - Left Foot Wound Culture - Final Staphylococcus aureus 01/02/25 03:57 Wound - Left Foot Skin and Soft Tissue MRSA/MSSA (PCR - Final Staphylococcus aureus 01/01/25 15:30 Blood Culture (Wb) - Arm Left Blood Culture - Final Staphylococcus aureus 01/01/25 15:25 Blood Culture (Wb) - Right Forearm Bacteria Detection (PCR) - Final Staphylococcus aureus 01/01/25 15:25 Blood Culture (Wb) - Right Forearm Blood Culture - Final Staphylococcus aureus 01/02/25 02:05 Mucosa - Nasopharyngeal Respiratory Panel (PCR) - Final 01/02/25 02:05 Mucosa - Nasopharyngeal Coronavirus COVID-19 PCR - Final Goal Trough Goal Trough: 10-15 mcg/mL Pharmacy Plan for Drug Dosing Pharmacy Plan for Drug Dosing: Pharmacy Service will continue to monitor and adjust dosing as required. TROUGH 9.8 @ 23 HOURS. NO CHANGES, FOLLOW UP TROUGH IN 2 DAYS Follow-Up Labs Follow-Up Labs: Trough: Vancomycin Date/Time Labs Ordered Labs to be done on [date and time ordered]: 01/07 @ 2130 01/05/252212 <Electronically signed by Alberto albert> Date _ Alberto Kolb Cosigner Signature (if applicable): Date CC: ~ Signed [facility] Work Phone: 1(455) 947-979106-16-2025 Consult note Author Kar [place] Note Date/Time January 05, 2025 6:52 pm [facility] Medical Records Department [address] [place] [address] Anesthesia Postop Eval II 01/05/25 1852 MR#: [id number] Acct: [id number] Name: GANESH RAZO Rep #:[id number] : 1935 89 From: Kar Benson MD PCP: Dr. Michael Meeks, DO Status:ADM IN Y Race: C Location: [address] Anesthesia Postop Eval I Sum Postop Eval Completion status Anesthesia document: Postop Eval 1 completed: Yes Anesthesia Postop Eval I Summary Anesthesia Postop Eval I Summary: Anesthesia Postop Eval I: Assessment Summary Airway patent Yes 01/05/25 17:25 Spontaneous unlabored Yes 01/05/25 17:25 respirations Mental status Asleep 01/05/25 17:25 nausea No 01/05/25 17:25 Vomiting No 01/05/25 17:25 Anesthesia Postop Eval I: Fluid Summary Crystalloid volume administer 700 01/05/25 17:25 (ml) Colloids volume administered ( ml) Blood Product volume administered (ml) Total IV fluid infused 700 01/05/25 17:25 Anesthesia Postop Eval I: Summary Notes Anesthesia Complication No 01/05/25 17:25 Anesthesia Complication Comment: Post-operative progress note Anesthesia: Postop Eval II Evaluation Mental status: Asleep Pain Level: 0 nausea: No Vomiting: No Complications Anesthesia Complication: No 01/05/251851 <Electronically signed by Kar cantrell MD> Date _ Kar Benson [facility] Signature: Date CC: ~ Signed [facility] Work Phone: 1(802) 220-480506-16-2025 Radiology Diagnostic study [place]06-16-2025 Consult note Author Kar Bannermelissa [facility] Note Date/Time January 05, 2025 5:25 pm [facility] Medical Records Department [address] [place] [address] Anesthesia Postop Eval I 01/05/251720 MR#: [id number] Acct: [id number] Name: GANESH RAZO Rep #:[id number] : 1935 89 From: Kar Benson MD PCP: Dr. Michael Meeks, DO Status:ADM IN Y Race: C Location: [place] [address] Anesthesia: Postop Eval I Current Vital Signs Temperature: 97.3 F Pulse Rate: 66 Blood Pressure: 111/63 Respiratory Rate: 20 Pulse Ox: 96 Oxygen Delivery Method: Non-Rebreather Assessment Airway patent: Yes Spontaneous unlabored respirations: Yes Mental status: Asleep nausea: No Vomiting: No Anesthesia Complication: No Fluid Hydration Crystalloid volume administer (ml): 700 Total IV fluid infused: 700 Progress Note Anesthesia document: Postop Eval 1 completed: Yes 01/05/251724 <Electronically signed by Kar cantrell MD> Date _ Kar Benson MD Cosigner Signature: Date CC: ~ Signed [facility] Work Phone: 1(709) 320-106806-16-2025 Procedure [place] 01-05-2025 Progress note Author Juanjo Arias [facility] Note Date/Time January 05, 2025 3:30 pm [facility] Medical Records Department [address] [place] [address] Progress Note - Infect Disease 01/05/25 1529 MR#: [id number] Acct: [id number] Name: GANESH RAZO Rep #:[id number] : 1935 89 From: Juanjo dias MD PCP: Dr. Michael Meeks, DO Status:ADM IN Location: [place] [address] Physical Exam Narrative OR planned today, no fever Const no apparent distress Orientation / Consciousness: lethargic Resp normal air movement and clear to auscultation bilaterally Cardio regular rate and regular rhythm GI soft to palpation, non-tender and non-distended Skin no rashes or lesions noted Skin Narrative: no new rash ID ID: Route of nutrition/ use of supplements: [] Nutritional Intake: [] IV Site: [] Holguin Catheter: [] Assessment & Plan Assessment/Plan (1) Sepsis: PLAN: sepsis due to L foot osteo complicated by mssa bacteremia per pcr. Pt is DNR-CC. OR planned with podiatry. Will cont vanc/zosyn and check repeat bcx. No veg seen on TTE but difficult study. Would need at least 6 weeks iv abx at discharge. Will follow (2) MSSA bacteremia: (3) Altered mental status: (4) Acute kidney injury: 01/05/25 1530 <Electronically signed by Juanjo Arias MD> Cosigner Signature (if applicable): CC: ~ Signed [facility] Work Phone: [phone]) [phone] Consult note Author [facility] Note Date/Time January 05, 2025 3:10 pm [facility] Medical Records Department [address] [place] [address] Pre-Anesthesia Evaluation 01/05/25 1448 MR#: [id number] Acct: [id number] Name: GANESH RAZO Rep #:[id number] : 1935 89 From: Kar Benson MD PCP: Dr. Michael Meeks, DO Status:ADM IN Y Race: C Location: [place] [address] 3-1 ASA Classification* ASA Classification ASA Classification: 3 Assessment & Plan Anesthesia* Anesthesia Assessment Anesthesia Assessment: Discussed sedation and/or anesthesia options, risks, benefits, and alternatives with patient/parents/legal guardian/POA. Questions invited. The patient/parents/legal guardian/POA seems to understand and agrees to proceedwith anesthesia plan. Reviewed the physical assessment, medical history, allergy history and patient home medications list prior to surgery/procedure/anesthetic and documented any changes. Performed airway and anesthesia risk assessments. Anesthesia Type Anesthesia Type: MAC (Discussed anesthesia with patient's daughter the POA, Sade Pena. 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 She does not believe he feels much down there at all.) History Source History Obtained from:: Chart Anesthesia Focused Assessment* Temperature: 98.6 F Pulse Rate: 73 Blood Pressure: 139/73 Respiratory Rate: 18 Pulse Ox: 94 Oxygen Delivery Method: Nasal Cannula Oxygen Flow Rate (L/min): 2 Airway Assessment Mouth opens: >3 cm Mallampati Score: IV Teeth Condition: Missing (Patient is edentulous.) Comment: Patient has dementia. Unable to cooperate with airway exam. Labs Anesthesia Preop lab: CBC WBC 5.0 K/mm3 (4.4-11.0) 01/05/25 04:55 01/05/25 RBC 3.73 M/mm3 (4.6-6.2) L 01/05/25 04:55 01/05/25 Hgb 12.0 g/dL (13.0-16.5) L 01/05/25 04:55 5 Hct 36.8 % (40-54) L 01/05/25 04:55 01/05/25 Plt Count 83 K/mm3 (150-450) L 01/05/25 04:55 01/05/25 CHEMISTRY Potassium 3.6 mmol/L (3.3-5.1) 01/05/25 04:55 01/05/25 Sodium 144 mmol/L (133-145) 01/05/25 04:55 01/05/25 Magnesium 2.2 mg/dL (1.5-2.2) 01/02/25 04:10 01/02/25 Phosphorus 2.1 mg/dL (2.7-4.5) L 01/02/25 04:10 01/02/25 BUN 43 mg/dL (4-19) H 01/05/25 04:55 01/05/25 Creatinine 1.30 mg/dL (0.70-1.20) H 01/05/25 04:55 Glucose 148 mg/dL (70-99) H 01/05/25 04:55 01/05/25 POC Glucose 137 mg/dL (74-106) H 01/05/25 09:39 01/05/25 TSH 1.270 uIU/mL (0.300-4.200) 01/02/25 04:10 12/21 10/14 COAG PT 12.7 SECONDS (11.7-14.9) 01/01/25 18:05 Pre-Assessment Diagnosis/Proposed Procedure Planned Operative Procedure(s): Excision of the bony cortex with delayed primaryclosure of the left foot. Anesthesia History Anesthesia History - room service server: Anesthesia History - room service server Hx Hospitalization Any Problems With Anesthesia No 01/04/25 20:22 Cholinesterase deficiency No 01/04/25 20:22 You/Your Family Experience No 01/04/25 20:22 fever (hyperthermia) with Relationship Recent Exposure to Contagious No 01/04/25 20:22 Disease Does patient have nerve No 01/04/25 20:22 stimulator Patient instructed to have No 01/04/25 20:22 device shut off --Does patient have Pacemaker No 01/05/25 06:42 or ICD? When Was Last Pacemaker Check QUESTION #4 FULL TEXT: You/Your Family Experience fever (hyperthermia) with Anesthesia Last Oral Intake Last Oral intake: Last Oral Intake NPO since 00:00 01/05/25 06:42 Meds taken in AM with sips of No 01/05/25 06:42 water? Meds patient instructed to take am of surgery PONV PONV - room service server: PONV - room service server Female HX of Motion Sickness HX of N/V After Surgery Non-Smoker Duration of Surgery greater than 60 minutes Number of Risk Factors PONV Score Height & Weight Height & Weight: Anesthesia: Height & Weight Height 6 ft 3 in 01/05/25 11:28 Weight: 89.7 kg 01/05/25 11:28 Body Mass Index (BMI) 24.7 01/05/25 06:42 Respiratory Assessment Respiratory Assessment - room service server: Respiratory Tract Infection Hx - room service server Hx Respiratory Tract Infection No 01/04/25 20:22 STOP Sleep Apnea STOP Sleep Apnea - room service server: STOP Sleep Apnea - room service server Hx Hypertension No 01/05/25 13:29 Hx Sleep Apnea No 01/02/25 03:40 CPAP BIPAP Do you snore loudly (louder No 01/02/25 03:40 than talking or can be heard Do you often feel tired/ No 01/02/25 03:40 fatigued/ sleepy during daytime? Has anyone observed you stop No 01/02/25 03:40 breathing during sleep? STOP Results Negative 01/02/25 03:40 QUESTION #5 FULL TEXT : Do you snore loudly (louder than talking or can be heard through closed doors)? 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 Specify any problems Hx of Preganancy in last 3 Months Nurse Filling Out Transfusion & Questions: Date: Time: Patient unable to answer at Yes 01/02/25 03:40 this time (ie. confused, unrespo /Reproduction History /Reproductive History - room service server: /Reproductive Hx- room service server Hx Now Gestational Age (in weeks): EDC: Hx Hx Para Hx Section SAB Active Medications Active Medications: Current Medications Generic Name Dose Route Start Last Admin Trade Name Freq PRN Reason Stop Dose Admin Acetaminophen 650 mg 01/02/25 02:40 01/02/25 14:27 Acetaminophen 325 Mg Tablet PO 650 mg Q6H PRN PRN Administration Pain 1-10 Or Fever>100.7 Glucagon 1 mg 01/02/25 02:40 Glucagon 1 Mg/Ml Syringe IM X1 PRN HYPOGLYCEMIA Protocol Vancomycin IV-PHARMACY TO DOSE 500 mls @ 250 mls/hr 01/02/25 02:40 1 each/ Sodium Chloride IV X1 PRN Rx to Dose Protocol Piperacillin Sod/Tazobactam 50 mls @ 12.5 mls/hr 01/02/25 06:00 01/05/25 14:09 Sod 3.375 gm/ Sodium Chloride IV Not Given Q8 RONN Dextrose 250 mls @ 0 mls/hr 01/02/25 02:40 Dextrose 10%-Water IV .Q0M PRN HYPOGLYCEMIA Protocol As Directed Sodium Chloride 250 mls @ 15 mls/hr 01/02/25 02:56 IV .[id number] PRN Saline Flush Sodium Chloride 250 mls @ 15 mls/hr 01/02/25 02:56 IV .[id number] PRN Additional IVPB Infusion Vancomycin HCl 1,250 mg/ 275 mls @ 167 mls/hr 01/03/25 22:00 01/05/25 00:36 Sodium Chloride IV Infused Q24H RONN Infusion Sodium Chloride 1,000 mls @ 75 mls/hr 01/05/25 09:25 01/05/25 09:32 IV 01/05/25 22:44 75 mls/hr .[id number] RONN Administration Insulin Human Lispro 0 unit 01/02/25 07:00 01/05/25 11:01 Insulin Lispro 100 Unit/Ml Insuln.Pen SC Not Given TIDAC [facility] Protocol Levothyroxine Sodium 150 mcg 01/02/25 06:00 01/05/25 05:17 Levothyroxine 150 Mcg Tablet PO Not Given DAILY@0600 RONN Melatonin 10 mg 01/02/25 22:00 01/04/25 21:16 Melatonin 10 Mg Tablet PO 10 mg QHS RONN Administration Ondansetron HCl 4 mg 01/02/25 02:40 Ondansetron 4 Mg/2 Ml Vial IV Q8H PRN PRN NAUSEA/VOMITING Senna 1 tablet 01/02/25 02:40 Senna Tablet PO BID PRN constipation Senna/Docusate Sodium 2 tablet 01/05/25 10:00 01/05/25 09:33 Senna/Docusate Sodium 1 Tablet PO Not Given BID RONN Sodium Chloride 10 - 40 ml 01/02/25 02:56 01/02/25 14:05 0.9% Saline Lock 10 Ml Syringe IV 10 ml UD PRN Administration SALINE FLUSH Vancomycin Protocol 1 lab 01/05/25 20:30 Vancomycin Trough/Random Due MC 01/05/25 22:30 DAILY RONN PFSH Medical History Agitation due to dementia Closed head injury Fall Dementia Hypothyroidism Home Medications ?Medication ?Instructions ?Recorded ?Last Taken ?Type acetaminophen 500 mg capsule 1,000 mg PO BID 01/01/25 Unknown History (Mapap (acetaminophen)) acetaminophen 500 mg tablet 500 mg PO BID PRN fever or pain 01/01/25 Unknown History doxycycline hyclate 100 mg capsule 100 mg PO BID 01/01 Unknown History levothyroxine 150 mcg tablet 150 mcg PO DAILY 01/01/25 Unknown History meloxicam 7.5 mg tablet 7.5 mg PO DAILY 01/01/25 Unk nown History sennosides 8.6 mg tablet (Kaylene-nyasia) 8.6 mg PO BID PRN constipation 01/01/25 Unknown History terbinafine HCl 250 mg tablet 250 mg PO DAILY 01/01/25 Unknown History Allergy/AdvReac Type Severity Reaction Status Date / Time shellfish derived Allergy unknown Verified 01/01/25 15:16 Social History Smoking Status: Never smoker Review of Systems (Anesthesia) ROS Narrative System reviewed and no additional complaints, except as documented. 01/05/25 1510 <Electronically signed by Kar cantrell MD> Date _ Kar Benson MD Cosigner Signature: Date CC: ~ Signed [facility] Work Phone: 1(737) 603-905206-16-2025 Progress note Author Dusty Abad [facility] Note Date/Time January 05, 2025 9:24 am [facility] Medical Records Department [address] [place] [address] Progress Note - Hospitalist 01/05/25 0853 MR#: [id number] Acct: [id number] Name: GANESH RAZO Rep #:[id number] : 1935 89 From: Dusty Sabillon PCP: Dr. Michael Meeks, DO Status:ADM IN Location: [place] [address] Reason for Visit Reason for Visit: Diagnoses Sepsis, unspecified organism (01/01/25) Methicillin susceptible Staphylococcus aureus infection as the cause of diseasesclassified elsewhere (01/01/25) Other toxic encephalopathy (01/01/25) Cellulitis of left lower limb (01/01/25) Non-pressure chronic ulcer of other part of left foot with necrosis of bone (01/01/25) Osteomyelitis, unspecified (01/01/25) Acute kidney failure, unspecified (01/01/25) Tachycardia, unspecified (01/01/25) Altered mental status, unspecified (01/01/25) Fever, unspecified (01/01/25) Hyperglycemia, unspecified (01/01/25) Bacteremia (01/01/25) Unspecified open wound, left foot, initial encounter (01/01/25) Objective Data Objective Data Vital Signs: Vital Signs Temp Pulse Resp BP Pulse Ox O2 Del Method O2 Flow Rate 97.5 F L 64 18 121/71 H 97 Nasal Cannula 2 01/05/25 03:15 01/05/25 03:15 01/05/25 03:15 01/05/25 03:15 01/05/25 03:15 01/05/25 03:15 01/05/25 03:15 Oxygen Flow Rate (L/min) 2 Oxygen Delivery Method Nasal Cannula Weight: 197 lb 12.074 oz Body Mass Index (BMI) 24.7 Intake & Output: Intake and Output for Last 24 Hours 01/03/25 01/04/25 01/05/25 23:59 23:59 23:59 Intake Total 1650 / 1650 685 / 685 325 / 325 Output Total 300 / 800 700 / 950 400 / 400 Balance 1350 / 850 -15 / -265 -75 / -75 Lab / Micro Data 01/05/25 04:55 01/05/25 04:55 Labs: Laboratory Results - last 24 hr 01/04/25 10:19: POC Glucose 113 H 01/04/25 16:23: POC Glucose 156 H 01/04/25 21:43: Vancomycin Trough 9.0 01/05/25 04:55: WBC 5.0, RBC 3.73 L, Hgb 12.0 L, Hct 36.8 L, MCV 98.7 H, MCH 32.2 H, MCHC 32.6, RDW Std Deviation 47.4 H, RDW Coeff of Gary 13.1, Plt Count 83L, MPV 11.8, Immature Gran % (Auto) 1.000 H, Neut % (Auto) 80.2 H, Lymph % (Auto) 8.0 L, [place] % (Auto) 10.4 H, Eos % (Auto) 0.2, Baso % (Auto) 0.2, Absolute Neuts (auto) 4.0, Absolute Lymphs (auto) 0.40 L, Nucleated RBC % 0, Sodium 144, Potassium 3.6, Chloride 108, Carbon Dioxide 25.0, Anion Gap 11, BUN 43 H, Creatinine 1.30 H, Estim Creat Clear Calc 46.94 L, Est GFR (MDRD) Non-Af 53 L, BUN/Creatinine Ratio 32.8 H, Glucose 148 H, Calcium 9.5 01/05/25 06:27: POC Glucose 130 H Micro: Microbiology 01/03/25 06:15 Blood Culture (Wb) - Venous Blood Culture - Preliminary Staphylococcus aureus 01/03/25 06:15 Blood Culture (Wb) - Right Hand Blood Culture - Preliminary Staphylococcus aureus 01/03/25 10:00 Wound - Left Foot Gram Stain - Final 01/03/25 10:00 Wound - Left Foot Wound Culture - Final Meth. resistant Staph. aureus 01/02/25 11:55 Blood Culture (Wb) - Left Wrist Blood Culture - Final Staphylococcus aureus 01/01/25 17:10 Urine Catheter - Catheter Urine Culture - Final Culture exhibits no growth. 01/02/25 03:57 Wound - Left Foot Gram Stain - Final 01/02/25 03:57 Wound - Left Foot Wound Culture - Final Staphylococcus aureus 01/02/25 03:57 Wound - Left Foot Skin and Soft Tissue MRSA/MSSA (PCR - Final Staphylococcus aureus 01/01/25 15:30 Blood Culture (Wb) - Arm Left Blood Culture - Final Staphylococcus aureus 01/01/25 15:25 Blood Culture (Wb) - Right Forearm Bacteria Detection (PCR) - Final Staphylococcus aureus 01/01/25 15:25 Blood Culture (Wb) - Right Forearm Blood Culture - Final Staphylococcus aureus 01/02/25 02:05 Mucosa - Nasopharyngeal Respiratory Panel (PCR) - Final 01/02/25 02:05 Mucosa - Nasopharyngeal Coronavirus COVID-19 PCR - Final Physical Exam Narrative Seen and examined. Discussed with the engineer technical staff Patient close confused and disoriented, could not answer simple questions like /age and his complaint though he told me his last name Mr. Razo. As per RN, he has dementia and has been disoriented not answering full question for last 2 days on his assessment. He is on a pur?ed diet. Physical exam General: Awake but could not answer simple questions/limited comprehension. Orientation cannot be ascertained or disoriented HEENT: Atraumatic, PERRLA, EOMI, Normocephalic. Oral: Oral mucosa dry. No Gingival or Mucosal Lesions/ Ulcerations Neck: Supple, No JVD, Negative Carotid Bruits Chest wall/Lungs: Air entry diminished in bilateral lung bases. No crepitation/rhonchi Cardiovascular: Regular rate and rhythm, Normal S1,S2, No M/G/R Abdomen: Bowel Sounds Present, Soft, Non Tender, Non-Distended : No dysuria. No renal angle tenderness. No suprapubic tenderness. Extremities: No edema, Capillary Refill Less than 3 Seconds Skin: Bilateral feet on the heel pad questions. Left foot bandage. Musculoskeletal: ROM limited at knees and hips. Decreased muscle mass. No Tenderness to Palpation of Joints or Extremities Neurological: detailed neuroexam unobtainable no acute focal neurological deficit. Psych/Mental Status: Flat affect. Dementia Assessment & Plan Assessment/Plan (1) Osteomyelitis of left foot: (2) MSSA bacteremia: (3) Sepsis: (4) Cellulitis of left foot: PLAN: Plan # Staph MSSA bacteremia in the setting of cellulitis of the foot * Patient's blood cultures are growing staph aureus * on IV vancomycin and zosyn * ID on board as well as podiatry * Urinalysis does not show any evidence of UTI. * Wound cultures growing staph aureus podiatry on board. 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 * TTE showed no evidence of vegetation and showed normal left ventricular size and systolic function with EF of 55% and moderate to severe mitral annular calcification and mild aortic stenosis with aortic valve mildly to moderately calcified and it appears tricuspid. * Repeat blood cultures from 01/03/2025 still growing gram-positive cocci in clusters in 2 out of 2 blood samples. * For foot surgery tomorrow. 01/05: Plan for surgery today. Wound culture PCR shows MSSA. #Acute encephalopathy likely due to MSSA bacteremia with history of dementia: Management as above #Hyperglycemia: * This in the setting of impaired glucose tolerance. * Has known A1c of 6.1. * Will monitor closely for now and status sliding scale as needed #Thrombocytopenia: * Platelets are further down to 76 May be due to acute illness. Will monitor. * 01/05: Platelet count 83K. H&H 12/36.8%. #CASEY: * Will monitor creatinine and hydrate with IV fluids * Creatinine today is down to 1.51. * Was 1.95 on admission. Baseline creatinine is around 1.3. 01/05: BUN/creatinine 43/1.3. Continue and maintain intake and output charting and fluid correction #Hypothyroidism: On Synthroid #Debility and weakness with failure to thrive: PT OT on board. Fall precautions. #History of onycholysis: On terbinafine which was held due to worsening kidney function #Dementia: * Unclear if he has behavioral disturbance. He continues to remain lethargic * Started on melatonin. * If patient becomes agitated we will have to consider starting Seroquel. DVT prophylaxis: Heparin. Hold heparin due to dropping platelets. Admitting platelet count was 178 but patient had thrombocytopenia 1 40K on 09/17/2024. Andshowing improvement on Sunday therefore HIT it is unlikely Charges/Coding Visit Charges Inpatient E&M: 80331 Subs Hosp L2 01/05/25 0924 <Electronically signed by Dusty Abad MD> Cosigner Signature (if applicable): CC: ~ Signed [facility] Work Phone: 1(553) 348-763906-15-2025 Progress note Author Sofia Lopez [facility] Note Date/Time January 04, 2025 3:37 pm [facility] Medical Records Department [address] [place] [address] Progress Note 01/04/25 1218 MR#: [id number] Acct: [id number] Name: GANESH RAZO Rep #:[id number] : 1935 89 From: Sofia Lopez MD PCP: Dr. Michael Meeks, DO Status:ADM IN Location: [place] [address] Subjective Subjective Patient seen and examined. Patient was a bit more alert and responsive today. He does mumble incoherently when called. Unable to do review of systems due to confusion. He remains on 2 L of oxygen. He is for for surgery by podiatry tomorrow. Objective Data Objective Data Vital Signs: Vital Signs Temp Pulse Resp BP Pulse Ox O2 Del Method O2 Flow Rate 96.6 F L 62 16 132/74 H 96 Nasal Cannula 2 01/04/25 10:11 01/04/25 10:11 01/04/25 10:11 01/04/25 10:11 01/04/25 07:00 01/04/25 10:12 01/04/25 10:12 Oxygen Flow Rate (L/min) 2 Oxygen Delivery Method Nasal Cannula Weight: 197 lb 12.074 oz Body Mass Index (BMI) 24.7 Intake & Output: Intake and Output for Last 24 Hours 01/02/25 01/03/25 01/04/25 23:59 23:59 23:59 Intake Total 1622.5 / 1622.5 1650 / 1650 375 / 375 Output Total 300 / 800 650 / 650 Balance 1622.5 / 1622.5 1350 / 850 -275 / -275 Lab / Micro Data 01/04/25 05:19 01/04/25 05:19 Labs: Laboratory Results - last 24 hr 01/03/25 16:39: POC Glucose 127 H 01/03/25 21:20: Vancomycin Trough 6.9 01/04/25 05:19: WBC 4.5, RBC 3.72 L, Hgb 12.1 L, Hct 36.4 L, MCV 97.8 H, MCH 32.5 H, MCHC 33.2, RDW Std Deviation 47.9 H, RDW Coeff of Gary 13.3, Plt Count 76L, MPV 11.4, Immature Gran % (Auto) 0.900, Neut % (Auto) 83.1 H, Lymph % (Auto) 5.8 L, [place] % (Auto) 9.8, Eos % (Auto) 0.2, Baso % (Auto) 0.2, Absolute Neuts (auto) 3.7, Absolute Lymphs (auto) 0.26 L, Nucleated RBC % 0, Differential Comment SCANNED, Sodium 140, Potassium 4.1, Chloride 108, Carbon Dioxide 22.4, Anion Gap 10, BUN 46 H, Creatinine 1.51 H, Estim Creat Clear Calc 40.42 L, Est GFR (MDRD) Non-Af 44 L, BUN/Creatinine Ratio 30.4 H, Glucose 128 H, Calcium 9.2 01/04/25 06:20: POC Glucose 126 H 01/04/25 10:19: POC Glucose 113 H Micro: Microbiology 01/02/25 11:55 Blood Culture (Wb) - Left Wrist Blood Culture - Final Staphylococcus aureus 01/03/25 10:00 Wound - Left Foot Gram Stain - Final 01/03/25 10:00 Wound - Left Foot Wound Culture - Preliminary Staphylococcus aureus 01/03/25 06:15 Blood Culture (Wb) - Right Hand Blood Culture - Preliminary 01/03/25 06:15 Blood Culture (Wb) - Venous Blood Culture - Preliminary 01/01/25 17:10 Urine Catheter - Catheter Urine Culture - Final Culture exhibits no growth. 01/02/25 03:57 Wound - Left Foot Gram Stain - Final 01/02/25 03:57 Wound - Left Foot Wound Culture - Final Staphylococcus aureus 01/02/25 03:57 Wound - Left Foot Skin and Soft Tissue MRSA/MSSA (PCR - Final Staphylococcus aureus 01/01/25 15:30 Blood Culture (Wb) - Arm Left Blood Culture - Final Staphylococcus aureus 01/01/25 15:25 Blood Culture (Wb) - Right Forearm Bacteria Detection (PCR) - Final Staphylococcus aureus 01/01/25 15:25 Blood Culture (Wb) - Right Forearm Blood Culture - Final Staphylococcus aureus 01/02/25 02:05 Mucosa - Nasopharyngeal Respiratory Panel (PCR) - Final 01/02/25 02:05 Mucosa - Nasopharyngeal Coronavirus COVID-19 PCR - Final Physical Exam Const average body habitus and healthy appearing Constitutional Narrative: lethargic, confused General Appearance: uncooperative Orientation / Consciousness: confused HEENT normocephalic, head/scalp atraumatic and hearing grossly normal bilaterally Mouth: dry mucous membranes Eyes EOMs intact bilaterally and conjunctivae normal Eyes Narrative: No scleral icterus Neck supple and no JVD Neck Narrative: Trachea midline Lymph Lymphatic: no lymphedema noted Resp Resp Narrative: mildly diminished breath sounds bibasally, no wheezes or crackles. On room air Auscultation: rales Cardio regular rate, regular rhythm, S1 normal heart sound, S2 normal heart sound and no murmurs GI normal to inspection, nondistended, normoactive bowel sounds, soft to palpation,non-tender and non-distended Extremity normal capillary refill, no clubbing, cyanosis or edema and no calf tenderness Extremity Narrative: Decreased lean muscle mass Skin Skin Narrative: Left foot wrapped in bandage Neuro No oriented x3 Neuro Narrative: Patient lethargic, confused Motor Exam: general weakness Psych Psych Narrative: Confused and lethargic. Assessment & Plan Assessment/Plan (1) Osteomyelitis of left foot: (2) MSSA bacteremia: (3) Sepsis: (4) Cellulitis of left foot: PLAN: Plan # Staph MSSA bacteremia in the setting of cellulitis of the foot * Patient's blood cultures are growing staph aureus * on IV vancomycin and zosyn * ID on board as well as podiatry * Urinalysis does not show any evidence of UTI. * Wound cultures growing staph aureus podiatry on board. 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 * TTE showed no evidence of vegetation and showed normal left ventricular size and systolic function with EF of 55% and moderate to severe mitral annular calcification and mild aortic stenosis with aortic valve mildly to moderately calcified and it appears tricuspid. * Repeat blood cultures from 01/03/2025 still growing gram-positive cocci in clusters in 2 out of 2 blood samples. * For foot surgery tomorrow. #Acute encephalopathy likely due to MRSA bacteremia: Management as above #Hyperglycemia: * This in the setting of impaired glucose tolerance. * Has known A1c of 6.1. * Will monitor closely for now and status sliding scale as needed #Thrombocytopenia: * Platelets are further down to 76 today. May be due to acute illness. Will monitor. * #CASEY: * Will monitor creatinine and hydrate with IV fluids * Creatinine today is down to 1.51. * Was 1.95 on admission. Baseline creatinine is around 1.3. * #Hypothyroidism: On Synthroid #Debility and weakness with failure to thrive: PT OT on board. Fall precautions. #History of onycholysis: On terbinafine which was held due to worsening kidney function #Dementia: * Unclear if he has behavioral disturbance. He continues to remain lethargic * Started on melatonin. * If patient becomes agitated we will have to consider starting Seroquel. DVT prophylaxis: Heparin. Hold heparin due to dropping platelets. If platelet drop continues we will get workup for heparin-induced thrombocytopenia Charges/Coding Visit Charges Inpatient E&M: 08604 Subs Hosp L2 01/04/25 1537 <Electronically signed by Sofia Lopez MD> Sofia Lopez MD Cosigner Signature (if applicable): CC: ~ Signed [facility] Work Phone: 1(630) 993-871306-15-2025 Consult note Author Alberto Kolb [facility] Note Date/Time January 03, 2025 11:5 8pm [facility] Medical Records Department [address] [place] [address] Pharmacokinetic/Renal -Consult 01/03/257 MR#: [id number] Acct: [id number] Name: GANESH RAZO Rep #:[id number] : 1935 89 From: Alberto Paz od PCP: Dr. Michael Meeks, DO Status:ADM IN Y Location: [place] [id number] 1 Consult Antibiotic Management Pharmacy has been consulted to manage selected antibiotic: Vancomycin Type of Intervention Type of Consult: Follow-up Labs Labs: Sodium 136 mmol/L (133-145) 01/03/25 06:15 Potassium 4.1 mmol/L (3.3-5.1) 01/03/25 06:15 Chloride 105 mmol/L (98-108) 01/03/25 06:15 Carbon Dioxide 18.8 mmol/L (21.0-32.0) L 01/03/25 06:15 Anion Gap 12 (5-15) 01/03/25 06:15 BUN 39 mg/dL (4-19) H 01/03/25 06:15 Creatinine 1.72 mg/dL (0.70-1.20) H 01/03/25 06:15 Est GFR (MDRD) Non-Af 38 (>60) L 01/03/25 06:15 BUN/Creatinine Ratio 22.5 RATIO (10-20) H 01/03/25 06:15 Glucose 184 mg/dL (70-99) H 01/03/25 06:15 Vancomycin Trough 6.9 ug/mL (5.0-15.0) 01/03/25 21:20 Microbiology Microbiology: Microbiology 01/03/25 10:00 Wound - Left Foot Gram Stain - Final 01/01/25 15:25 Blood Culture (Wb) - Right Forearm Bacteria Detection (PCR) - Final Staphylococcus aureus 01/01/25 15:25 Blood Culture (Wb) - Right Forearm Blood Culture - Final Staphylococcus aureus 01/01/25 15:30 Blood Culture (Wb) - Arm Left Blood Culture - Preliminary Staphylococcus aureus 01/02/25 03:57 Wound - Left Foot Gram Stain - Final 01/02/25 03:57 Wound - Left Foot Wound Culture - Preliminary Staphylococcus aureus 01/02/25 03:57 Wound - Left Foot Skin and Soft Tissue MRSA/MSSA (PCR - Final Staphylococcus aureus 01/01/25 17:10 Urine Catheter - Catheter Urine Culture - Preliminary Culture exhibits no growth. 01/02/25 11:55 Blood Culture (Wb) - Left Wrist Blood Culture - Preliminary 01/02/25 02:05 Mucosa - Nasopharyngeal Respiratory Panel (PCR) - Final 01/02/25 02:05 Mucosa - Nasopharyngeal Coronavirus COVID-19 PCR - Final Goal Trough Goal Trough: 10-15 mcg/mL Pharmacy Plan for Drug Dosing Pharmacy Plan for Drug Dosing: Pharmacy Service will continue to monitor and adjust dosing as required. TROUGH 6.9 @ 24 HOURS. INCREASE TO 1250MG Q24H AND DRAW TROUGH PRIOR TO 3RD DOSE Follow-Up Labs Follow-Up Labs: Trough: Vancomycin Date/Time Labs Ordered Labs to be done on [date and time ordered]: 01/04 @ 2130 01/03/25 2358 <Electronically signed by Alberto albert> Date _ Alberto Kolb Cosigner Signature (if applicable): Date CC: ~ Signed [facility] Work Phone: [phone]) 373-756206-14-2025 Progress [facility] Note Date/Time January 03, 2025 6:29 pm [facility] Medical Records Department [address] [place] [address] Progress Note 01/03/25 1334 MR#: [id number] Acct: [id number] Name: GANESH RAZO Rep #:[id number] : 1935 89 From: Sofia Lopez MD PCP: Dr. Michael Meeks, DO Status:ADM IN Location: [place] [address] Subjective Subjective Patient seen and examined. He remains very lethargic and is unable to do reviewof systems. Vitals have remained stable. He is able to open his eyes in response to loud voice, but not answering any questions. Objective Data Objective Data Vital Signs: Vital Signs Temp Pulse Resp BP Pulse Ox O2 Del Method O2 Flow Rate 97.9 F 82 18 122/78 H 99 Nasal Cannula 2 01/03/25 11:18 01/03/25 11:18 01/03/25 11:18 01/03/25 11:18 01/03/25 11:18 01/03/25 11:18 01/03/25 11:18 Oxygen Flow Rate (L/min) 2 Oxygen Delivery Method Nasal Cannula Weight: 197 lb 12.074 oz Body Mass Index (BMI) 24.7 Intake & Output: Intake and Output for Last 24 Hours 01/01/25 01/02/25 01/03/25 23:59 23:59 23:59 Intake Total 1100 / 1100 1622.5 / 1622.5 1500 / 1500 Output Total 300 / 300 Balance 1100 / 1100 1622.5 / 1622.5 1200 / 1200 Lab / Micro Data 01/03/25 06:15 01/03/25 06:15 Labs: Laboratory Results - last 24 hr 01/02/25 16:15: POC Glucose 156 H 01/02/25 20:45: POC Glucose 136 H 01/03/25 05:26: POC Glucose 170 H 01/03/25 06:15: WBC 5.5, RBC 3.85 L, Hgb 12.5 L, Hct 36.8 L, MCV 95.6 H, MCH 32.5 H, MCHC 34.0, RDW Std Deviation 46.6 H, RDW Coeff of Gary 13.1, Plt Count 93L, MPV 10.9, Immature Gran % (Auto) 0.700, Neut % (Auto) 90.0 H, Lymph % (Auto) 2.4 L, [place] % (Auto) 6.5, Eos % (Auto) 0.0, Baso % (Auto) 0.4, Absolute Neuts (auto) 5.0, Absolute Lymphs (auto) 0.13 L, Nucleated RBC % 0, Platelet Estimate SLT DEC, Sodium 136, Potassium 4.1, Chloride 105, Carbon Dioxide 18.8 L, Anion Gap 12, BUN 39 H, Creatinine 1.72 H, Estim Creat Clear Calc 35.48 L, Est GFR (MDRD) Non-Af 38 L, BUN/Creatinine Ratio 22.5 H, Glucose 184 H, Calcium 9.1 01/03/25 11:08: POC Glucose 152 H Micro: Microbiology 01/01/25 15:25 Blood Culture (Wb) - Right Forearm Bacteria Detection (PCR) - Final Staphylococcus aureus 01/01/25 15:25 Blood Culture (Wb) - Right Forearm Blood Culture - Final Staphylococcus aureus 01/01/25 15:30 Blood Culture (Wb) - Arm Left Blood Culture - Preliminary Staphylococcus aureus 01/02/25 03:57 Wound - Left Foot Gram Stain - Final 01/02/25 03:57 Wound - Left Foot Wound Culture - Preliminary Staphylococcus aureus 01/02/25 03:57 Wound - Left Foot Skin and Soft Tissue MRSA/MSSA (PCR - Final Staphylococcus aureus 01/01/25 17:10 Urine Catheter - Catheter Urine Culture - Preliminary Culture exhibits no growth. 01/02/25 11:55 Blood Culture (Wb) - Left Wrist Blood Culture - Preliminary 01/02/25 02:05 Mucosa - Nasopharyngeal Respiratory Panel (PCR) - Final 01/02/25 02:05 Mucosa - Nasopharyngeal Coronavirus COVID-19 PCR - Final Radiography Diagnostic Testing: Radiology Impression Echocardiogram 01/02/25 05:46 Interpretation Summary Difficult study Left ventricular systolic function is normal. The LV ejection fraction is 55 %. Moderate to severe mitral annular calcification The right atrium is mildly dilated The left atrium is mildly dilated Mild aortic stenosis. Mean/peak aortic valve gradient 20/33 mmHg YESSENIA 1.8 cm?? Aortic valve is mildly to moderately calcified Aortic valve appears tricuspid Ordering Physician: Mei Mckenzie Referring Physician: Michael Meeks Performed By: Mounika Odonnell, YAYA, RVT Physical Exam Const average body habitus Constitutional Narrative: lethargic, confused General Appearance: uncooperative Orientation / Consciousness: confused HEENT normocephalic, head/scalp atraumatic and oropharynx normal Mouth: dry mucous membranes Eyes EOMs intact bilaterally and conjunctivae normal Eyes Narrative: No scleral icterus Neck supple and no JVD Neck Narrative: Trachea midline Lymph Lymphatic: no lymphedema noted Resp Resp Narrative: mildly diminished breath sounds bibasally, no wheezes or crackles. On room air Cardio regular rate, regular rhythm, S1 normal heart sound, S2 normal heart sound and no murmurs GI normal to inspection, nondistended, normoactive bowel sounds, soft to palpation,non-tender and non-distended Extremity normal capillary refill, no clubbing, cyanosis or edema and no calf tenderness Extremity Narrative: Decreased lean muscle mass Skin Skin Narrative: Left foot wrapped in bandage General Skin Exam: no breakdown Neuro Neuro Narrative: Patient lethargic, confused Psych Psych Narrative: Confused and lethargic. Assessment & Plan Assessment/Plan (1) Osteomyelitis of left foot: (2) MSSA bacteremia: (3) Sepsis: (4) Cellulitis of left foot: PLAN: Plan # Staph MSSA bacteremia in the setting of cellulitis of the foot * Patient's blood cultures are growing staph aureus * on IV vancomycin and zosyn * ID on board as well as podiatry * Urinalysis does not show any evidence of UTI. * Wound cultures pending. Podiatry on board. For surgery on Sunday. 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 * TTE showed no evidence of vegetation and showed normal left ventricular size and systolic function with EF of 55% and moderate to severe mitral annular calcification and mild aortic stenosis with aortic valve mildly to moderately calcified and it appears tricuspid. * Repeat blood cultures also ordered. #Acute encephalopathy likely due to MRSA bacteremia: Management as above #Hyperglycemia: * This in the setting of impaired glucose tolerance. Has known A1c of 6.1. Will monitor closely for now and status sliding scale as needed #Thrombocytopenia: * Platelets are 117 today. May be due to acute illness. Will monitor. * #CASEY: * Will monitor creatinine and hydrate with IV fluids * Creatinine today is 1.72. * Was 1.95 on admission. Baseline creatinine is around 1.3. * #Hypothyroidism: On Synthroid #Debility and weakness with failure to thrive: PT OT on board. Fall precautions. #History of onycholysis: On terbinafine which was held due to worsening kidney function #Dementia: * Unclear if he has behavioral disturbance. However he is very lethargic today. * Started on melatonin. * If patient becomes agitated we will have to consider starting Seroquel. DVT prophylaxis: Heparin Charges/Coding Visit Charges Inpatient E&M: 26291 Subs Hosp L2 01/03/25 7629 <Electronically signed by Sofia Lopez MD> Sofia Lopez MD Cosigner Signature (if applicable): CC: ~ Signed [facility] Work Phone: 1(785) 722-212506-14-2025 Progress note Author Jaden Forman [facility] Note Date/Time January 03, 2025 10:4 3am [facility] Medical Records Department [address] [place] [address] Progress Note - Surgery 01/03/25 1036 MR#: [id number] Acct: [id number] Name: GANESH RAZO Rep #:[id number] : 1935 89 From: Jaden Sabillon PM PCP: Dr. Michael Meeks, DO Status:ADM IN Location: [place] [address] Subjective Subjective Patient is a 89-year-old male seen at bedside today for left lower extremity dressing change. Patient was sleeping at the time of visit. Patient still lethargic and confused. Currently on room air. No acute events overnight. Objective Data Objective Data Vital Signs: Vital Signs Temp Pulse Resp BP Pulse Ox O2 Del Method O2 Flow Rate 98.7 F 107 H 18 150/72 H 93 Room Air 2 01/03/25 05:29 01/03/25 05:29 01/03/25 05:29 01/03/25 05:29 01/03/25 05:29 01/03/25 08:34 01/03/25 05:29 Oxygen Flow Rate (L/min) 2 Oxygen Delivery Method Room Air Weight: 89.7 kg Body Mass Index (BMI) 24.7 Intake & Output: Intake and Output for Last 24 Hours 01/01/25 01/02/25 01/03/25 23:59 23:59 23:59 Intake Total 1100 / 1100 1622.5 / 1622.5 1400 / 1400 Output Total 200 / 200 Balance 1100 / 1100 1622.5 / 1622.5 1200 / 1200 Lab / Micro Data 01/03/25 06:15 01/03/25 06:15 Labs: Laboratory Results - last 24 hr 01/02/25 04:55: Hemoglobin A1c 6.2 H 01/02/25 11:28: POC Glucose 146 H 01/02/25 16:15: POC Glucose 156 H 01/02/25 20:45: POC Glucose 136 H 01/03/25 05:26: POC Glucose 170 H 01/03/25 06:15: WBC 5.5, RBC 3.85 L, Hgb 12.5 L, Hct 36.8 L, MCV 95.6 H, MCH 32.5 H, MCHC 34.0, RDW Std Deviation 46.6 H, RDW Coeff of Gary 13.1, Plt Count 93L, MPV 10.9, Immature Gran % (Auto) 0.700, Neut % (Auto) 90.0 H, Lymph % (Auto) 2.4 L, [place] % (Auto) 6.5, Eos % (Auto) 0.0, Baso % (Auto) 0.4, Absolute Neuts (auto) 5.0, Absolute Lymphs (auto) 0.13 L, Nucleated RBC % 0, Platelet Estimate SLT DEC, Sodium 136, Potassium 4.1, Chloride 105, Carbon Dioxide 18.8 L, Anion Gap 12, BUN 39 H, Creatinine 1.72 H, Estim Creat Clear Calc 35.48 L, Est GFR (MDRD) Non-Af 38 L, BUN/Creatinine Ratio 22.5 H, Glucose 184 H, Calcium 9.1 Micro: Microbiology 01/01/25 15:25 Blood Culture (Wb) - Right Forearm Bacteria Detection (PCR) - Final Staphylococcus aureus 01/01/25 15:25 Blood Culture (Wb) - Right Forearm Blood Culture - Final Staphylococcus aureus 01/01/25 15:30 Blood Culture (Wb) - Arm Left Blood Culture - Preliminary Staphylococcus aureus 01/02/25 03:57 Wound - Left Foot Gram Stain - Final 01/02/25 03:57 Wound - Left Foot Wound Culture - Preliminary Staphylococcus aureus 01/02/25 03:57 Wound - Left Foot Skin and Soft Tissue MRSA/MSSA (PCR - Final Staphylococcus aureus 01/01/25 17:10 Urine Catheter - Catheter Urine Culture - Preliminary Culture exhibits no growth. 01/02/25 11:55 Blood Culture (Wb) - Left Wrist Blood Culture - Preliminary 01/02/25 02:05 Mucosa - Nasopharyngeal Respiratory Panel (PCR) - Final 01/02/25 02:05 Mucosa - Nasopharyngeal Coronavirus COVID-19 PCR - Final Radiography Diagnostic Testing: Radiology Impression Echocardiogram 01/02/25 05:46 Interpretation Summary Difficult study Left ventricular systolic function is normal. The LV ejection fraction is 55 %. Moderate to severe mitral annular calcification The right atrium is mildly dilated The left atrium is mildly dilated Mild aortic stenosis. Mean/peak aortic valve gradient 20/33 mmHg YESSENIA 1.8 cm?? Aortic valve is mildly to moderately calcified Aortic valve appears tricuspid Ordering Physician: Mei Mckenzie Referring Physician: Michael Meeks Performed By: Mounika Odonnell RDCS, RVT Physical Exam Narrative Neurovascular status is unchanged. Improved erythema to the left foot. Evidence of fluid-filled bullae to the lateral left foot which was deroofed thatexposed a new full-thickness wound down to bone. After debridement the wound measured 1.0 x 1.0 x 0.4 cm. Tunneled from 12:00 to 6:00 with positive probe tobone. Mild pain on palpation to both full-thickness wound to the fifth metatarsal head. No pain with calf pressure. Assessment & Plan Assessment/Plan (1) Osteomyelitis of left foot: PLAN: Patient was examined and evaluated. All findings were discussed with the patient. All questions were answered to the patient satisfaction. During physical exam there was evidence of a fluid-filled bullae that was deroofed with sterile pickup and scissors. There exposed a full-thickness woundto the dorsal aspect of the left foot at the level of the fifth metatarsal head with positive probe to bone. Excisional debridement down to and including subcutaneous tissue, fascia, muscle and bone was performed with sterile pickup and scissors. Positive probe to bone. Postdebridement measurement was 1.0 x 1.0 x 0.4 cm. Culture was taken. Both ulcerations were flushed with cold george normal saline. The area was dressed with Betadine paint dry sterile dressing and light compression wrap was applied to the left lower extremity. Please continue daily dressing changes as above. Will plan for incision bone cortex of the fifth ray with advancement flap closure to the left lower extremity. Surgery will be planned for Sunday afternoon. Patient be n.p.o. midnight tonight. All risk and benefits were discussed with the patient's daughter who is his POA which she had understandingof. Per the conversation with the daughter, the patient has been suffering froma full-thickness wound for greater than 6 months with not much resolution. Please clear the patient medically. WBC: 13.2 ?> 5.5 HbA1c: 6.2 Glucose:170 Medicine: On board, medical management Infectious disease, on board, IV antibiotics vancomycin and Zosyn Will plan for surgery Sunday afternoon. Please reach out to Dr. Forman with question or concerns. Podiatry will continue to follow. (2) Cellulitis of left foot: (3) Non-pressure chronic ulcer of other part of left foot with necrosis of bone: 01/03/25 1043 <Electronically signed by Jaden Forman DPM> Cosigner Signature (if applicable): CC: ~ Signed [facility] Work Phone: [phone]) 840-852306-13-2025 Progress note Author Sofia Lopez [facility] Note Date/Time January 02, 2025 6:45 pm [facility] Medical Records Department [address] [place] [address] Progress Note 01/02/25 1454 MR#: [id number] Acct: [id number] Name: GANESH RAZO Rep #:[id number] : 1935 89 From: Sofia Lopez MD PCP: Dr. Michael Meeks, DO Status:ADM IN Location: [place] [address] Subjective Subjective Patient seen and examined. He was quite lethargic and confused. Unable to do review of systems. He is on room air and is otherwise remained hemodynamically stable. Objective Data Objective Data Vital Signs: Vital Signs Temp Pulse Resp BP Pulse Ox O2 Del Method 100.9 F H 111 H 18 125/109 H 92 Room Air 01/02/25 09:00 01/02/25 09:00 01/02/25 09:00 01/02/25 09:00 01/02/25 09:00 01/02/25 14:09 Oxygen Delivery Method Room Air Weight: 197 lb 12.074 oz Body Mass Index (BMI) 24.7 Intake & Output: Intake and Output for Last 24 Hours 12/31/24 01/01/25 01/02/25 23:59 23:59 23:59 Intake Total 1100 / 1100 590 / 590 Balance 1100 / 1100 590 / 590 Lab / Micro Data 01/02/25 04:55 01/02/25 04:10 Labs: Laboratory Results - last 24 hr 01/01/25 15:25: WBC 7.0, RBC 3.87 L, Hgb 12.8 L, Hct 37.4 L, MCV 96.6 H, MCH 33.1 H, MCHC 34.2, RDW Std Deviation 46.9 H, RDW Coeff of Gary 13.1, Plt Count TNP, MPV 11.2, Immature Gran % (Auto) 0.700, Neut % (Auto) 86.5 H, Lymph % (Auto) 2.6 L, [place] % (Auto) 9.8, Eos % (Auto) 0.1, Baso % (Auto) 0.3, Absolute Neuts (auto) 6.0, Absolute Lymphs (auto) 0.18 L, Nucleated RBC % 0, DifferentialComment SCANNED, Platelet Estimate ADEQUATE, ESR 42 H, PT Cancelled, INR Cancelled, APTT Cancelled, Sodium 134, Potassium 4.7, Chloride 100, Carbon Dioxide 20.9 L, Anion Gap 13, BUN 45 H, Creatinine 1.95 H, Estim Creat Clear Calc 31.30 L, Est GFR (MDRD) Non-Af 32 L, BUN/Creatinine Ratio 23.1 H, Glucose 171 H, Lactic Acid 2.0, Calcium 9.6, Total Bilirubin 0.76, AST 86 H, ALT 48 H, Alkaline Phosphatase 189 H, C-React Prot Ext Range 168.00 H, Total Protein 6.9, Albumin 3.7, Globulin 3.2, Albumin/Globulin Ratio 1.2 01/01/25 17:18: Urine Color Yellow, Urine Clarity Sl. Cloudy, Urine pH 6.0, Ur Specific [place] 1.020, Urine Protein 30 H, Urine Glucose (UA) Normal, Urine Ketones 5 H, Urine Occult Blood 250 H, Urine Nitrite Negative, Urine Bilirubin Negative, Urine Urobilinogen Normal, Ur Leukocyte Esterase Negative, Urine RBC 5-10 SEEN, Urine WBC 0-5 SEEN, Ur Squamous Epith Cells 0 SEEN, Urine Bacteria 0 SEEN, Hyaline Casts 0-5 SEEN, Urine Mucus 0 SEEN 01/01/25 18:05: PT 12.7, INR 0.9, APTT 24.3 01/01/25 20:19: Lactic Acid 1.1 01/01/25 21:54: Ammonia 13.6 L 01/02/25 04:10: Sodium 135, Potassium 4.6, Chloride 102, Carbon Dioxide 13.4 L, Anion Gap 20 H, BUN 34 H, Creatinine 1.60 H, Estim Creat Clear Calc 38.14 L, EstGFR (MDRD) Non-Af 41 L, BUN/Creatinine Ratio 20.9 H, Glucose 103 H, Calcium 9.5,Phosphorus 2.1 L, Magnesium 2.2, Total Bilirubin 1.06, AST 114 H, ALT 51 H, Alkaline Phosphatase 177 H, Total Protein 6.8, Albumin 3.4, Globulin 3.4, Albumin/Globulin Ratio 1.0, TSH 1.270 01/02/25 04:55: WBC 13.2 H, RBC 4.00 L, Hgb 13.2, Hct 39.0 L, MCV 97.5 H, MCH 33.0 H, MCHC 33.8, RDW Std Deviation 46.5 H, RDW Coeff of Gary 13.0, Plt Count 117 L, MPV 10.0, Immature Gran % (Auto) 0.700, Neut % (Auto) 88.3 H, Lymph % (Auto) 1.4 L, [place] % (Auto) 9.4, Eos % (Auto) 0.0, Baso % (Auto) 0.2, Absolute Neuts (auto) 11.6 H, Absolute Lymphs (auto) 0.19 L, Nucleated RBC % 0, Differential Comment SCANNED, Hemoglobin A1c 6.2 H 01/02/25 04:57: POC Glucose 129 H 01/02/25 06:57: POC Glucose 130 H 01/02/25 11:28: POC Glucose 146 H Micro: Microbiology 01/02/25 03:57 Wound - Left Foot Gram Stain - Final 01/02/25 03:57 Wound - Left Foot Skin and Soft Tissue MRSA/MSSA (PCR - Final Staphylococcus aureus 01/01/25 15:25 Blood Culture (Wb) - Right Forearm Bacteria Detection (PCR) - Final Staphylococcus aureus 01/01/25 15:25 Blood Culture (Wb) - Right Forearm Blood Culture - Preliminary 01/02/25 02:05 Mucosa - Nasopharyngeal Respiratory Panel (PCR) - Final 01/01/25 15:30 Blood Culture (Wb) - Arm Left Blood Culture - Preliminary 01/02/25 02:05 Mucosa - Nasopharyngeal Coronavirus COVID-19 PCR - Final ABG Data ABG results: ABG 01/01/25 22:00 Specimen Type JOON Sample Site Not entered VBG pH 7.41 VBG pO2 32 VBG HCO3 22 VBG Total CO2 23 VBG O2 Sat (Calc) 62 VBG Base Excess -3 L POC Mix VBG pCO2 Pt Tmp 35.1 L O2 Delivery Device Room Air Radiography Diagnostic Testing: Radiology Impression Brain CT 01/01/25 16:20 IMPRESSION: 1. No acute intracranial finding. 2. Findings of chronic microvascular ischemic changes and age-related changes. Reading Location: [facility] Chest X-Ray 01/01/25 16:38 IMPRESSION: A prominently calcified aorta is seen, also somewhat tortuous. No evidence of cardiomegaly. Lungs appear clear of acute disease. No pleural effusion or pneumothorax is noted. No interval osseous changes noted. Prior right shoulder surgery is again seen. Reading Location: [id number] Lower Extremity CT 01/01/25 22:40 IMPRESSION: 1. Diffuse soft tissue edema and swelling, probably cellulitis. 2. No fluid collection or drainable abscess formation is seen. 3. No CT evidence of osteomyelitis or gas-forming infection. 4. 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 5. Hallux valgus deformity. 6. Hammertoes deformities. 7. Calcaneal spur formation. 8. Enthesophyte formation at the calcaneal insertion of Achilles tendon. Reading Location: [place] [address] Foot X-Ray 01/02/25 07:50 IMPRESSION: Erosive changes of the neck of the 5th metatarsal bone and its head with overlying soft tissue edema and swelling suspicious for osteomyelitis. This can be further evaluated by MRI with gadolinium if clinically warranted. Diffuse soft tissue edema and swelling, probably cellulitis. 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 Chronic erosive changes of the tip of the distal phalanx of the big toe. Reading Location[facility] Physical Exam Const Constitutional Narrative: lethargic, confused HEENT normocephalic, head/scalp atraumatic and oropharynx normal Eyes EOMs intact bilaterally Neck supple and no JVD Lymph Lymphatic: no lymphedema noted Resp Resp Narrative: mildly diminished breath sounds bibasally, no wheezes or crackles. On room air Cardio regular rate, regular rhythm, S1 normal heart sound, S2 normal heart sound and no murmurs GI normal to inspection, nondistended, normoactive bowel sounds, soft to palpation,non-tender and non-distended Extremity normal capillary refill, no clubbing, cyanosis or edema and no calf tenderness Skin General Skin Exam: no breakdown Neuro Neuro Narrative: Patient lethargic, confused Motor Exam: general weakness Psych Psych Narrative: Confused and lethargic. Assessment & Plan Assessment/Plan (1) Osteomyelitis of left foot: (2) MSSA bacteremia: (3) Sepsis: (4) Cellulitis of left foot: PLAN: Plan # Staph MSSA bacteremia in the setting of cellulitis of the foot * Patient's blood cultures are growing staph aureus * on IV vancomycin and zosyn * ID on board as well as podiatry * Urinalysis does not show any evidence of UTI. * Wound cultures pending. Podiatry on board. For surgery on Sunday. 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 TTE ordered and pending. Repeat blood cultures also ordered. #Acute encephalopathy likely due to MRSA bacteremia: Management as above #Hyperglycemia: * This in the setting of impaired glucose tolerance. Has known A1c of 6.1. Will monitor closely for now and status sliding scale as needed #Thrombocytopenia: * Platelets are 117 today. May be due to acute illness. Will monitor. * #CASEY: * Will monitor creatinine and hydrate with IV fluids * Creatinine is down to 1.6. Was 1.95 on admission. Baseline creatinine is around 1.3. * #Hypothyroidism: On Synthroid #Debility and weakness with failure to thrive: PT OT on board. Fall precautions. #History of onycholysis: On terbinafine which was held due to worsening kidney function #Dementia: * Unclear if he has behavioral disturbance. However he is very lethargic today. * Started on melatonin. * If patient becomes agitated we will have to consider starting Seroquel. Due to prophylaxis: Heparin Charges/Coding Visit Charges Inpatient E&M: 91935 Subs Hosp L3 01/02/25 4535 <Electronically signed by Sofia Lopez MD> Sofia Lopez MD Cosigner Signature (if applicable): CC: ~ Signed [facility] Work Phone: [phone]) [phone] Consult note Author Jaden Forman [facility] Note Date/Time January 02, 2025 2:58 pm [facility] Medical Records Department [address] [place] [address] Consultation 01/02/25 0742 MR#: [id number] Acct: [id number] Name: GANESH RAZO Rep #:[id number] : 1935 89 From: Jaden Forman D PM PCP: Dr. Michael Meeks, DO Status:ADM IN Location: [place] [id number] Assessment & Plan Assessment/Plan (1) Cellulitis of left foot: PLAN: Patient was examined evaluated. All findings were discussed with the patient. All questions were answered to the patient's satisfaction. Review of nonweightbearing left foot radiographs show concern for loss of bone architecture to the level of the fifth metatarsal. On physical exam there is evidence of positive probe to bone so this is consistent with osteomyelitis. Noevidence of emphysema or soft tissue air. Evidence of soft tissue defect to thesubfifth metatarsal head. At time of interview the patient was nonresponsive due to mental status. Due tothe patient unable to communicate we will hold off surgical intervention until stabilized. Please clear patient medically with recommendations. Will plan forincision bone cortex with delayed primary closure to the left foot 01/05/25. Patient to be n.p.o. midnight Sunday. Dressing change orders are in for nursing staff. Wound culture: Staph aureus Blood culture: Staph aureus WBC: 13.2 ESR: 42 CRP: 168.0 Glucose: 146 Medicine: On board, medical management Infectious disease: On board, IV antibiotics Vanco/Zosyn. Recommending PICC line antibiotics 6 weeks of discharge. Will continue to follow-up the patient is in house. Please reach out to Dr. Forman many questions or concerns. Thank you for the consultation! (2) Osteomyelitis of left foot: (3) Non-pressure chronic ulcer of other part of left foot with necrosis of bone: HPI Consult Data Date of Consult: 01/02/25 HPI Narrative Reason for Consultation: Left foot ulcer HPI Narrative: GANESH HASH, is a 89 M who presented to [facility] emergency room via squad after a fall. Patient initially had a fall on 12/31/2024 and was seen emergency room anddischarged back to facility. He is presenting again secondary to a fall. They admit to some skin tears on the patient's arm at that initial interview. Patient did deny hitting his head or having any loss of consciousness after his fall yesterday. Patient was also seen at [facility] wound care center with Dr. Forman/myself where he showed some evidence of agitation but was able to ambulate with assistance of a walker. He did have evidence of positive probe to bone andwas treated with oral antibiotics. Plan was to discuss surgical intervention with MATTI which is his daughter. [facility] be [facility] when attending his medical appointments. During interview at bedside the patient cannot communicate due tomental status. [facility] Medical History Agitation due to dementia Closed head injury Fall Dementia Hypothyroidism Home Medications ?Medication ?Instructions ?Recorded ?Last Taken ?Type acetaminophen 500 mg capsule 1,000 mg PO BID 01/01/25 Unknown History (Mapap (acetaminophen)) acetaminophen 500 mg tablet 500 mg PO BID PRN fever or pain 01/01/25 Unknown History doxycycline hyclate 100 mg capsule 100 mg PO BID 01/01 Unknown History levothyroxine 150 mcg tablet 150 mcg PO DAILY 01/01/25 Unknown History meloxicam 7.5 mg tablet 7.5 mg PO DAILY 01/01/25 Unk nown History sennosides 8.6 mg tablet (Kaylene-nyasia) 8.6 mg PO BID PRN constipation 01/01/25 Unknown History terbinafine HCl 250 mg tablet 250 mg PO DAILY 01/01/25 Unknown History Allergy/AdvReac Type Severity Reaction Status Date / Time shellfish derived Allergy unknown Verified 01/01/25 15:16 Social History Smoking Status: Never smoker Physical Exam Narrative Vascular: DP and PT pulses are faintly palpable to left lower extremity. CFT isbrisk. Skin temperature gradient is warm to warm from proximal ankle to distal digit. Blanchable erythema to the left foot with evidence of dependent edema/erythema when elevated. Neurologic: Light touch intact. Epicritic sensation is intact. Patient does respond to painful stimuli. Dermatological: Full-thickness wound to the subfifth metatarsal head of the leftfoot measuring 0.5 x 0.5 x 0.7 cm. Positive probe to bone. Musculoskeletal: Pain on palpation to full-thickness wound. No pain with calf compression. Lab / Micro Data 01/02/25 04:55 01/02/25 04:10 Labs: Laboratory Results - last 24 hr 01/01/25 15:25: WBC 7.0, RBC 3.87 L, Hgb 12.8 L, Hct 37.4 L, MCV 96.6 H, MCH 33.1 H, MCHC 34.2, RDW Std Deviation 46.9 H, RDW Coeff of Gary 13.1, Plt Count TNP, MPV 11.2, Immature Gran % (Auto) 0.700, Neut % (Auto) 86.5 H, Lymph % (Auto) 2.6 L, [place] % (Auto) 9.8, Eos % (Auto) 0.1, Baso % (Auto) 0.3, Absolute Neuts (auto) 6.0, Absolute Lymphs (auto) 0.18 L, Nucleated RBC % 0, DifferentialComment SCANNED, Platelet Estimate ADEQUATE, ESR 42 H, PT Cancelled, INR Cancelled, APTT Cancelled, Sodium 134, Potassium 4.7, Chloride 100, Carbon Dioxide 20.9 L, Anion Gap 13, BUN 45 H, Creatinine 1.95 H, Estim Creat Clear Calc 31.30 L, Est GFR (MDRD) Non-Af 32 L, BUN/Creatinine Ratio 23.1 H, Glucose 171 H, Lactic Acid 2.0, Calcium 9.6, Total Bilirubin 0.76, AST 86 H, ALT 48 H, Alkaline Phosphatase 189 H, C-React Prot Ext Range 168.00 H, Total Protein 6.9, Albumin 3.7, Globulin 3.2, Albumin/Globulin Ratio 1.2 01/01/25 17:18: Urine Color Yellow, Urine Clarity Sl. Cloudy, Urine pH 6.0, Ur Specific [place] 1.020, Urine Protein 30 H, Urine Glucose (UA) Normal, Urine Ketones 5 H, Urine Occult Blood 250 H, Urine Nitrite Negative, Urine Bilirubin Negative, Urine Urobilinogen Normal, Ur Leukocyte Esterase Negative, Urine RBC 5-10 SEEN, Urine WBC 0-5 SEEN, Ur Squamous Epith Cells 0 SEEN, Urine Bacteria 0 SEEN, Hyaline Casts 0-5 SEEN, Urine Mucus 0 SEEN 01/01/25 18:05: PT 12.7, INR 0.9, APTT 24.3 01/01/25 20:19: Lactic Acid 1.1 01/01/25 21:54: Ammonia 13.6 L 01/02/25 04:10: Sodium 135, Potassium 4.6, Chloride 102, Carbon Dioxide 13.4 L, Anion Gap 20 H, BUN 34 H, Creatinine 1.60 H, Estim Creat Clear Calc 38.14 L, EstGFR (MDRD) Non-Af 41 L, BUN/Creatinine Ratio 20.9 H, Glucose 103 H, Calcium 9.5,Phosphorus 2.1 L, Magnesium 2.2, Total Bilirubin 1.06, AST 114 H, ALT 51 H, Alkaline Phosphatase 177 H, Total Protein 6.8, Albumin 3.4, Globulin 3.4, Albumin/Globulin Ratio 1.0, TSH 1.270 01/02/25 04:55: WBC 13.2 H, RBC 4.00 L, Hgb 13.2, Hct 39.0 L, MCV 97.5 H, MCH 33.0 H, MCHC 33.8, RDW Std Deviation 46.5 H, RDW Coeff of Gary 13.0, Plt Count 117 L, MPV 10.0, Immature Gran % (Auto) 0.700, Neut % (Auto) 88.3 H, Lymph % (Auto) 1.4 L, [place] % (Auto) 9.4, Eos % (Auto) 0.0, Baso % (Auto) 0.2, Absolute Neuts (auto) 11.6 H, Absolute Lymphs (auto) 0.19 L, Nucleated RBC % 0, Differential Comment SCANNED 01/02/25 04:57: POC Glucose 129 H 01/02/25 06:57: POC Glucose 130 H Micro: Microbiology 01/02/25 02:05 Mucosa - Nasopharyngeal Respiratory Panel (PCR) - Final 01/02/25 03:57 Wound - Left Foot Skin and Soft Tissue MRSA/MSSA (PCR - Final Staphylococcus aureus 01/01/25 15:30 Blood Culture (Wb) - Arm Left Blood Culture - Preliminary 01/01/25 15:25 Blood Culture (Wb) - Right Forearm Blood Culture - Preliminary 01/02/25 02:05 Mucosa - Nasopharyngeal Coronavirus COVID-19 PCR - Final ABG Data ABG results: ABG 01/01/25 22:00 Specimen Type JOON Sample Site Not entered VBG pH 7.41 VBG pO2 32 VBG HCO3 22 VBG Total CO2 23 VBG O2 Sat (Calc) 62 VBG Base Excess -3 L POC Mix VBG pCO2 Pt Tmp 35.1 L O2 Delivery Device Room Air Imaging Radiology Impression Brain CT 01/01/25 16:20 IMPRESSION: 1. No acute intracranial finding. 2. Findings of chronic microvascular ischemic changes and age-related changes. Reading Location: [facility] Chest X-Ray 01/01/25 16:38 IMPRESSION: A prominently calcified aorta is seen, also somewhat tortuous. No evidence of cardiomegaly. Lungs appear clear of acute disease. No pleural effusion or pneumothorax is noted. No interval osseous changes noted. Prior right shoulder surgery is again seen. Reading Location: [id number] Lower Extremity CT 01/01/25 22:40 IMPRESSION: 1. Diffuse soft tissue edema and swelling, probably cellulitis. 2. No fluid collection or drainable abscess formation is seen. 3. No CT evidence of osteomyelitis or gas-forming infection. 4. 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 5. Hallux valgus deformity. 6. Hammertoes deformities. 7. Calcaneal spur formation. 8. Enthesophyte formation at the calcaneal insertion of Achilles tendon. [facility] 01/02/25 7816 <Electronically signed by Jaden Forman DPM> Cosigner Signature (if applicable): CC: Dr. Michael Meeks, DO~ Signed [facility] Work Phone: [phone] Consult note Author Juanjo Arias [facility] Note Date/Time January 02, 2025 11:0 1am [facility] Medical Records Department [address] [place] [address] Consultation - Infectious Dx 01/02/25 1057 MR#: [id number] Acct: [id number] Name: GANESH RAZO Rep #:[id number] : 1935 89 From: Juanjo dias MD PCP: Dr. 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 Pt is DNR-CC. OR planned with podiatry. Will cont vanc/zosyn and check repeat bcx and TTE. Would need at least 6 weeks iv abx at discharge. Will follow, thank you, d/w nursing, correctional counselor/case manager, and wound care. (2) MSSA bacteremia: (3) Altered mental status: (4) Acute kidney injury: HPI Consult Data Date of Consult: 01/02/25 HPI Narrative Reason for Consultation: bacteremia HPI Narrative: GANESH RAZO, is a 89 M with h/o dementia, DNR-CC at [facility], presented to ED 01/01 withacute onset confusion and fall. Found to have fever and L foot infection. Admitted on vanc/zosyn, seen by podiatry. Pt unable to provide history or ROS due to mental status. [facility] Medical History Agitation due to dementia Closed head injury Fall Dementia Hypothyroidism Home Medications ?Medication ?Instructions ?Recorded ?Last Taken ?Type acetaminophen 500 mg capsule 1,000 mg PO BID 01/01/25 Unknown History (Mapap (acetaminophen)) acetaminophen 500 mg tablet 500 mg PO BID PRN fever or pain 01/01/25 Unknown History doxycycline hyclate 100 mg capsule 100 mg PO BID 01/01 Unknown History levothyroxine 150 mcg tablet 150 mcg PO DAILY 01/01/25 Unknown History meloxicam 7.5 mg tablet 7.5 mg PO DAILY 01/01/25 Unk nown History sennosides 8.6 mg tablet (Kaylene-nyasia) 8.6 mg PO BID PRN constipation 01/01/25 Unknown History terbinafine HCl 250 mg tablet 250 mg PO DAILY 01/01/25 Unknown History Allergy/AdvReac Type Severity Reaction Status Date / Time shellfish derived Allergy unknown Verified 01/01/25 15:16 Social History Smoking Status: Never smoker Physical Exam Const Constitutional Narrative: some unintelligible moaning General Appearance: lethargic Orientation / Consciousness: confused HEENT normocephalic and head/scalp atraumatic Eyes PERRL Neck supple and No nodes Resp normal air movement and clear to auscultation bilaterally Cardio regular rate and regular rhythm GI soft to palpation, non-tender and non-distended Extremity Extremity Narrative: no focal joint swelling or warmth General Extremity: Negative for edema Skin Skin Narrative: No splinter hemorrhages on hands or feet. L foot with wound, diffuse redness. Neuro CN's II-XII intact bilaterally Lab / Micro Data Attestation: I reviewed the patient's lab results. 01/02/25 04:55 01/02/25 04:10 Labs: Laboratory Results - last 24 hr 01/01/25 15:25: WBC 7.0, RBC 3.87 L, Hgb 12.8 L, Hct 37.4 L, MCV 96.6 H, MCH 33.1 H, MCHC 34.2, RDW Std Deviation 46.9 H, RDW Coeff of Gary 13.1, Plt Count TNP, MPV 11.2, Immature Gran % (Auto) 0.700, Neut % (Auto) 86.5 H, Lymph % (Auto) 2.6 L, [place] % (Auto) 9.8, Eos % (Auto) 0.1, Baso % (Auto) 0.3, Absolute Neuts (auto) 6.0, Absolute Lymphs (auto) 0.18 L, Nucleated RBC % 0, DifferentialComment SCANNED, Platelet Estimate ADEQUATE, ESR 42 H, PT Cancelled, INR Cancelled, APTT Cancelled, Sodium 134, Potassium 4.7, Chloride 100, Carbon Dioxide 20.9 L, Anion Gap 13, BUN 45 H, Creatinine 1.95 H, Estim Creat Clear Calc 31.30 L, Est GFR (MDRD) Non-Af 32 L, BUN/Creatinine Ratio 23.1 H, Glucose 171 H, Lactic Acid 2.0, Calcium 9.6, Total Bilirubin 0.76, AST 86 H, ALT 48 H, Alkaline Phosphatase 189 H, C-React Prot Ext Range 168.00 H, Total Protein 6.9, Albumin 3.7, Globulin 3.2, Albumin/Globulin Ratio 1.2 01/01/25 17:18: Urine Color Yellow, Urine Clarity Sl. Cloudy, Urine pH 6.0, Ur Specific [place] 1.020, Urine Protein 30 H, Urine Glucose (UA) Normal, Urine Ketones 5 H, Urine Occult Blood 250 H, Urine Nitrite Negative, Urine Bilirubin Negative, Urine Urobilinogen Normal, Ur Leukocyte Esterase Negative, Urine RBC 5-10 SEEN, Urine WBC 0-5 SEEN, Ur Squamous Epith Cells 0 SEEN, Urine Bacteria 0 SEEN, Hyaline Casts 0-5 SEEN, Urine Mucus 0 SEEN 01/01/25 18:05: PT 12.7, INR 0.9, APTT 24.3 01/01/25 20:19: Lactic Acid 1.1 01/01/25 21:54: Ammonia 13.6 L 01/02/25 04:10: Sodium 135, Potassium 4.6, Chloride 102, Carbon Dioxide 13.4 L, Anion Gap 20 H, BUN 34 H, Creatinine 1.60 H, Estim Creat Clear Calc 38.14 L, EstGFR (MDRD) Non-Af 41 L, BUN/Creatinine Ratio 20.9 H, Glucose 103 H, Calcium 9.5,Phosphorus 2.1 L, Magnesium 2.2, Total Bilirubin 1.06, AST 114 H, ALT 51 H, Alkaline Phosphatase 177 H, Total Protein 6.8, Albumin 3.4, Globulin 3.4, Albumin/Globulin Ratio 1.0, TSH 1.270 01/02/25 04:55: WBC 13.2 H, RBC 4.00 L, Hgb 13.2, Hct 39.0 L, MCV 97.5 H, MCH 33.0 H, MCHC 33.8, RDW Std Deviation 46.5 H, RDW Coeff of Gary 13.0, Plt Count 117 L, MPV 10.0, Immature Gran % (Auto) 0.700, Neut % (Auto) 88.3 H, Lymph % (Auto) 1.4 L, [place] % (Auto) 9.4, Eos % (Auto) 0.0, Baso % (Auto) 0.2, Absolute Neuts (auto) 11.6 H, Absolute Lymphs (auto) 0.19 L, Nucleated RBC % 0, Differential Comment SCANNED 01/02/25 04:57: POC Glucose 129 H 01/02/25 06:57: POC Glucose 130 H Micro: Microbiology 01/01/25 15:25 Blood Culture (Wb) - Right Forearm Bacteria Detection (PCR) - Final Staphylococcus aureus 01/01/25 15:25 Blood Culture (Wb) - Right Forearm Blood Culture - Preliminary 01/02/25 02:05 Mucosa - Nasopharyngeal Respiratory Panel (PCR) - Final 01/02/25 03:57 Wound - Left Foot Skin and Soft Tissue MRSA/MSSA (PCR - Final Staphylococcus aureus 01/01/25 15:30 Blood Culture (Wb) - Arm Left Blood Culture - Preliminary 01/02/25 02:05 Mucosa - Nasopharyngeal Coronavirus COVID-19 PCR - Final ABG Data ABG results: ABG 01/01/25 22:00 Specimen Type JOON Sample Site Not entered VBG pH 7.41 VBG pO2 32 VBG HCO3 22 VBG Total CO2 23 VBG O2 Sat (Calc) 62 VBG Base Excess -3 L POC Mix VBG pCO2 Pt Tmp 35.1 L O2 Delivery Device Room Air Imaging Radiology Impression Brain CT 01/01/25 16:20 IMPRESSION: 1. No acute intracranial finding. 2. Findings of chronic microvascular ischemic changes and age-related changes. Reading Location: [facility] Chest X-Ray 01/01/25 16:38 IMPRESSION: A prominently calcified aorta is seen, also somewhat tortuous. No evidence of cardiomegaly. Lungs appear clear of acute disease. No pleural effusion or pneumothorax is noted. No interval osseous changes noted. Prior right shoulder surgery is again seen. Reading Location: [id number] Lower Extremity CT 01/01/25 22:40 IMPRESSION: 1. Diffuse soft tissue edema and swelling, probably cellulitis. 2. No fluid collection or drainable abscess formation is seen. 3. No CT evidence of osteomyelitis or gas-forming infection. 4. 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 5. Hallux valgus deformity. 6. Hammertoes deformities. 7. Calcaneal spur formation. 8. Enthesophyte formation at the calcaneal insertion of Achilles tendon. Reading Location: [place] [address] Foot X-Ray 01/02/25 07:50 IMPRESSION: Erosive changes of the neck of the 5th metatarsal bone and its head with overlying soft tissue edema and swelling suspicious for osteomyelitis. This can be further evaluated by MRI with gadolinium if clinically warranted. Diffuse soft tissue edema and swelling, probably cellulitis. 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 Chronic erosive changes of the tip of the distal phalanx of the big toe. Reading Location: [place] [address] 01/02/25 1101 <Electronically signed by Juanjo Arias MD> Cosigner Signature (if applicable): CC: Dr. Michael Meeks DO~ Signed [facility] Work Phone: 1(801) 783-889906-13-2025 Radiology Diagnostic study [place]06-13-2025 Radiology Diagnostic study [place]06-13-2025 Progress note Author Mei Mckenzie [facility] Note Date/Time January 02, 2025 5:49 am [facility] Medical Records Department [address] [place] [id number] Progress Note - Hospitalist 01/02/25 0548 MR#: [id number] Acct: [id number] Name: GANESH RAZO Rep #:[id number] : 1935 89 From: Mei Mckenzie DO PCP: Dr. Michael Meeks DO Status:ADM IN Location: [place] [id number] Hospitalist Note I was notified by nursing staff that patient had 4/4 bottles positive for gram-positive cocci in clusters. Patient is already on vancomycin and Zosyn. Will continue antibiotics as ordered for now. Consult infectious disease. Repeat blood cultures tomorrow morning. Check echocardiogram. Suspect source is foot wound. 01/02/25 0549 <Electronically signed by Mei Mckenzie DO> Cosigner Signature (if applicable): CC: ~ Signed [facility] Work Phone: [phone]) 673-312806-13-2025 [facility]06-13-2025 Consult note Author Alberto Kolb [facility] Note Date/Time January 02, 2025 4:04 am [facility] Medical Records Department [address] [place] [address] Pharmacokinetic/Renal -Consult 01/02/25 0403 MR#: [id number] Acct: [id number] Name: GANESH RAZO Rep #:[id number] : 1935 89 From: Alberto Paz od PCP: Dr. Michael Meeks, DO Status:ADM IN Y Location: [place] [address] Consult Antibiotic Management Pharmacy has been consulted to manage selected antibiotic: Vancomycin Type of Intervention Type of Consult: New start Labs Labs: Sodium 134 mmol/L (133-145) 01/01/25 15:25 Potassium 4.7 mmol/L (3.3-5.1) 01/01/25 15:25 Chloride 100 mmol/L (98-108) 01/01/25 15:25 Carbon Dioxide 20.9 mmol/L (21.0-32.0) L 01/01/25 15:25 Anion Gap 13 (5-15) 01/01/25 15:25 BUN 45 mg/dL (4-19) H 01/01/25 15:25 Creatinine 1.95 mg/dL (0.70-1.20) H 01/01/25 15:25 Est GFR (MDRD) Non-Af 32 (>60) L 01/01/25 15:25 BUN/Creatinine Ratio 23.1 RATIO (10-20) H 01/01/25 15:25 Glucose 171 mg/dL (70-99) H 01/01/25 15:25 Microbiology Microbiology: Microbiology 01/01/25 15:25 Blood Culture (Wb) - Right Forearm Blood Culture - Preliminary Dosing Weight Weight used for dosin.7 kg Estimated Creatinine Clearance Estimated Creatinine Clearance: 31.3 Goal Trough Goal Trough: 10-15 mcg/mL Pharmacy Plan for Drug Dosing Pharmacy Plan for Drug Dosing: Pharmacy Service will continue to monitor and adjust dosing as required. 2000MG GIVEN IN ER 01/01 @ 2153. START 1GM Q24H AND DRAW TROUGH PRIOR TO 3RD DOSE Follow-Up Labs Follow-Up Labs: Trough: Vancomycin Date/Time Labs Ordered Labs to be done on [date and time ordered]: 01/03 @ 2130 01/02/25 0404 <Electronically signed by Alberto albert> Date _ Alberto Kolb Cosigner Signature (if applicable): Date CC: ~ Signed [facility] Work Phone: 1(518) 234-701606-13-2025 History and physical note Author Mei Mckenzie [facility] Note Date/Time January 02, 2025 2:14 am [facility] Medical Records Department [address] [place] [address] H&P Exam - Hospitalist 01/01/252127 MR#: [id number] Acct: [id number] Name: GANESH RAZO Rep #:[id number] : 1935 89 From: Mei Mckenzie DO PCP: Dr. Michael Meeks, DO Status:ADM IN Location: [place] [address] HPI - General General Date of Admission: 01/01/25 Date of Service: 01/01/25 Chief Complaint: Falls/altered mental status HPI Narrative GANESH RAZO, is a 89 M who presented to the emergency department at [facility] on 01/01/2025 due to altered mental status and fall. Patient was evaluated on 12/31/2024 in the emergency department for a fall and was able to ambulate and discharged home however he had another fall on the day of presentation. The day prior he had a skin tear on his right arm but denied hitting his head or having any loss of consciousness. He had another fall on the day of presentation as noted and he is more unsteady and more confused per staff at the facility at which she lives. He comes with paperwork that declaresD CC. Patient is significantly hard of hearing so obtaining a history was very difficult he also seemed to be markedly confused at the time of my evaluation. Patient does appear to be infected and having fevers in the emergency department source was initially not identified however on further examhe has noted to have a foot wound consistent with cellulitis on his left lower extremity and this may be the etiology of his infection. Vital signs on presentation showed a temperature of 102.4, heart rate was 122, initial blood pressure was 97/64 with a repeat of 107/59 and then 132/80, respiratory was 36 but has since improved to 18-20 with resolution of his fever,and pulse ox was 95% on room air. CBC had normal white count with a chronic stable anemia but he had a marked left shift with an 86.5% neutrophilia. ESR was 42. Coags were normal. We obtained a VBG due to his altered mental status and pH was 7.41. Chemistry panel showed normal electrolytes with a BUN of 45 and a serum creatinine of 1.95 (baseline 1.2-1.5). Serum glucose was 171 and lactic acid was 2.0 with a repeat of 1.1. AST and ALT were elevated at 86 and 48 respectively. Ammonia level was obtained and was found to be 13.6. CRP was markedly elevated 168. His urine is consistent with concentration having a specific gravity of 1.02 but was not consistent with infection. Chest x-ray wasnegative for any acute findings. CT of the foot showed diffuse soft tissue edema with swelling consistent with cellulitis without fluid collection or drainable abscess and no evidence of osteomyelitis or gas forming infection. The emergency department he was treated with broad-spectrum antibiotics and IV fluids. It does appear maybe he was on outpatient doxycycline for his foot however we were not able to verify with his facility. [facility] Medical History Agitation due to dementia Closed head injury Fall Dementia Hypothyroidism Home Medications ?Medication ?Instructions ?Recorded ?Last Taken ?Type acetaminophen 500 mg capsule 1,000 mg PO BID 01/01/25 Unknown History (Mapap (acetaminophen)) acetaminophen 500 mg tablet 500 mg PO BID PRN fever or pain 01/01/25 Unknown History doxycycline hyclate 100 mg capsule 100 mg PO BID 01/01 Unknown History levothyroxine 150 mcg tablet 150 mcg PO DAILY 01/01/25 Unknown History meloxicam 7.5 mg tablet 7.5 mg PO DAILY 01/01/25 Unk nown History sennosides 8.6 mg tablet (Kaylene-nyasia) 8.6 mg PO BID PRN constipation 01/01/25 Unknown History terbinafine HCl 250 mg tablet 250 mg PO DAILY 01/01/25 Unknown History Allergy/AdvReac Type Severity Reaction Status Date / Time shellfish derived Allergy unknown Verified 01/01/25 15:16 Social History Smoking Status: Never smoker ROS Review of Systems ROS Unobtainable: other Details: Altered mental status and significant hearing loss Vital Signs Vital Signs Vital Signs: 01/01/25 15:12 01/01/25 15:14 01/01/25 15:59 Temperature 102.4 F H 102.4 F H Temperature Source Oral Oral Pulse Rate 122 H 107 H Respiratory Rate 36 H 36 H Respiratory Pattern Blood Pressure 97/64 97/64 Blood Pressure Mean 75 75 Pulse Ox 95 94 Oxygen Delivery Method Room Air Room Air Room Air 01/01/25 16:14 01/01/25 17:00 01/01/25 17:36 Temperature 100.4 F H 101.9 F H Temperature Source Oral Core Pulse Rate 98 123 H Respiratory Rate 20 H 18 Respiratory Pattern Normal Blood Pressure 107/59 L 132/80 H Blood Pressure Mean 75 97 Pulse Ox 95 97 Oxygen Delivery Method Room Air 01/01/25 18:01 01/01/25 19:00 01/01/25 20:00 Temperature 102.1 F H 99.7 F H 99.5 F H Temperature Source Core Temporal Temporal Pulse Rate 120 H 88 96 Respiratory Rate 18 18 18 Respiratory Pattern Blood Pressure 134/87 H 132/69 H 133/78 H Blood Pressure Mean 102 90 96 Pulse Ox 97 99 99 Oxygen Delivery Method Room Air Room Air Room Air 01/01/25 21:00 01/01/25 21:00 Temperature 99.2 F H 99.2 F H Temperature Source Temporal Pulse Rate 109 H 109 H Respiratory Rate 18 18 Respiratory Pattern Blood Pressure 135/79 H 135/79 H Blood Pressure Mean 97 97 Pulse Ox 98 98 Oxygen Delivery Method Room Air Weight Weight: 93 kg Body Mass Index (BMI) 25.6 Physical Exam Const average body habitus and well nourished; Negative for healthy appearing Constitutional Narrative: Sleepy intermittently combative, elderly, white male, lying in bed with his eyesclosed, tries to hit me when I perform exam but we were able to get him calm down to complete exam, appears ill but not toxic General Appearance: uncooperative Orientation / Consciousness: confused HEENT normocephalic; Negative for hearing grossly normal bilaterally or moist oral mucous membranes HEENT Narrative: Mucous membranes appear dry Eyes conjunctivae normal Eyes Narrative: No scleral icterus Neck supple Neck Narrative: Trachea midline Resp normal respiratory effort, no retractions, no use of accessory muscles and clearto auscultation bilaterally Auscultation: Negative for rales, rhonchi or wheezes Cardio regular rhythm, S1 normal heart sound, S2 normal heart sound, no murmurs, no rub, no gallops and no clicks Cardio Narrative: Mild tachycardia GI normal to inspection, nondistended, normoactive bowel sounds, soft to palpation and non-tender Extremity no clubbing, cyanosis or edema Extremity Narrative: Decreased lean muscle mass Skin Skin Narrative: Scattered skin tears and superficial wounds with significant left lateral foot wound that appears to be chronic, area is erythematous, no significant purulent drainage noted from wound with eschar is present Neuro No oriented x3, moves all extremities and no focal motor deficits Neuro Narrative: Patient spontaneously moves all 4 extremities - Was noncommunicative with me at the time of my evaluation Psych Psych Narrative: Patient agitated intermittently Results Lab / Micro Data 01/01/25 15:25 01/01/25 15:25 Labs: Laboratory Results - last 24 hr 01/01/25 15:25: WBC 7.0, RBC 3.87 L, Hgb 12.8 L, Hct 37.4 L, MCV 96.6 H, MCH 33.1 H, MCHC 34.2, RDW Std Deviation 46.9 H, RDW Coeff of Gary 13.1, Plt Count TNP, MPV 11.2, Immature Gran % (Auto) 0.700, Neut % (Auto) 86.5 H, Lymph % (Auto) 2.6 L, [place] % (Auto) 9.8, Eos % (Auto) 0.1, Baso % (Auto) 0.3, Absolute Neuts (auto) 6.0, Absolute Lymphs (auto) 0.18 L, Nucleated RBC % 0, DifferentialComment SCANNED, Platelet Estimate ADEQUATE, PT Cancelled, INR Cancelled, APTT Cancelled, Sodium 134, Potassium 4.7, Chloride 100, Carbon Dioxide 20.9 L, AnionGap 13, BUN 45 H, Creatinine 1.95 H, Estim Creat Clear Calc 31.30 L, Est GFR (MDRD) Non-Af 32 L, BUN/Creatinine Ratio 23.1 H, Glucose 171 H, Lactic Acid 2.0,Calcium 9.6, Total Bilirubin 0.76, AST 86 H, ALT 48 H, Alkaline Phosphatase 189 H, Total Protein 6.9, Albumin 3.7, Globulin 3.2, Albumin/Globulin Ratio 1.2 01/01/25 17:18: Urine Color Yellow, Urine Clarity Sl. Cloudy, Urine pH 6.0, Ur Specific [place] 1.020, Urine Protein 30 H, Urine Glucose (UA) Normal, Urine Ketones 5 H, Urine Occult Blood 250 H, Urine Nitrite Negative, Urine Bilirubin Negative, Urine Urobilinogen Normal, Ur Leukocyte Esterase Negative, Urine RBC 5-10 SEEN, Urine WBC 0-5 SEEN, Ur Squamous Epith Cells 0 SEEN, Urine Bacteria 0 SEEN, Hyaline Casts 0-5 SEEN, Urine Mucus 0 SEEN 01/01/25 18:05: PT 12.7, INR 0.9, APTT 24.3 01/01/25 20:19: Lactic Acid 1.1 Imaging Radiology Impression Brain CT 01/01/25 16:20 IMPRESSION: 1. No acute intracranial finding. 2. Findings of chronic microvascular ischemic changes and age-related changes. Reading Location: [facility] Chest X-Ray 01/01/25 16:38 IMPRESSION: A prominently calcified aorta is seen, also somewhat tortuous. No evidence of cardiomegaly. Lungs appear clear of acute disease. No pleural effusion or pneumothorax is noted. No interval osseous changes noted. Prior right shoulder surgery is again seen. Reading Location: [address] Assessment & Plan Assessment/Plan (1) Open wound of left foot: (2) Acute kidney injury: (3) Tachycardia: (4) Fever: (5) Toxic metabolic encephalopathy: (6) Hyperglycemia: PLAN: Plan Open left foot wound with cellulitis - Suspect this is the etiology of his fever and tachycardia - UA and chest x-ray are not suggestive of infection - Blood and urine cultures are pending - Wound cultures are ordered - MRSA wound - Consult podiatry - ESR and CRP are elevated - Wound care nurse consult - Antibiotics for now with vancomycin and Zosyn - Stop outpatient doxycycline - As needed Tylenol available for fever Hyperglycemia without diagnosis of DM-2 - did have A1c done earlier this year on 09/22/2024 and was found to be 6.1 - Will repeat hemoglobin A1c now that markedly elevated blood sugar - Suspect related to acute infection and A1c will be similar to previous but will reassess given his foot wound and elevations on presentation Toxic/metabolic encephalopathy - Suspect related to the above and exacerbated by his hearing loss at baseline - CT of the brain did not show any acute findings but did show age-related and chronic microvascular ischemic changes CASEY - Baseline serum creatinine is between 1.2 and 1.5 - Currently 1.95 - IV fluids as ordered - Avoid nephrotoxins - Hold home meloxicam - will hold home terbinafine Generalized weakness/debility - Consult PT/OT and speech therapy - Case management/social work consultation for assistance with discharge planning - Patient currently is in a facility Hypothyroidism - Check a.m. TSH - Levothyroxine to continue Onychomycosis - Hold home terbinafine given worsening renal function and acute illness Constipation - Continue home as needed sennosides Dementia-unclear type - Suspect worsened delirium while hospitalized next-could consider as needed risperidone if patient has agitation issues - Will start melatonin 10 mg scheduled at night to help avoid DVT prophylaxis - Heparin 5000 units every 8 subcu CODE STATUS - DNR CC per documentation from nursing facility - ED is trying to clarify who has guardianship Charges/Coding Visit Charges Inpatient E&M: 08746 Init Hosp L3 01/02/25 0214 <Electronically signed by Mei Mckenzie DO> Cosigner Signature (if applicable): CC: Dr. Mei Mckenzie DO; Dr. Michael Meeks DO~ Signed [facility] Work Phone: [phone]) 180-101706-13-2025 History and physical note [facility] Medical Records Department [facility] [place] [address] [address] H&P Exam - Hospitalist 01/01/252127 MR#: [id number] Acct: [id number] Name: GANESH RAZO Rep #:[id number] : 1935 89 From: Mei Mckenzie DO PCP: Dr. Michael Meeks, DO Status:ADM IN Location: [facility] [id number]- 1 HPI - General General Date of Admission: 01/01/25 Date of Service: 01/01/25 Chief Complaint: Falls/altered mental status HPI Narrative GANESH RAZO, is a 89 M who presented to the emergency department at [facility] on 01/01/2025 due to altered mental status and fall. Patient was evaluated on 12/31/2024 in the emergency department for a fall and was able to ambulate and discharged home however he had another fall on the day of presentation. The day prior he had a skin tear on his right arm but denied hitting his head or having any loss of consciousness. He had another fall on the day of presentation as noted and he is more unsteady and more confused per staff at the facility at which she lives. [facility] Patient is significantly hard of hearing so obtaining a history was very dif ficult he also seemed to be markedly confused at the time of my evaluation. Patient does appear to be infected and having fevers in the emergency department source was initially not identified however on further examhe has noted to have a foot wound consistent with cellulitis on his left lower extremity and this may be the etiology of his infection. Vital signs on presentation showed a temperature of 102.4, heart rate was 122, initial blood pressure was 97/64 with a repeat of 107/59 and then 132/80, respiratory was 36 but has since improved to 18-20 with resolution of his fever,and pulse ox was 95% on room air. CBC had normal white count with a chronic stable anemia but he had a marked left shift with an 86.5% neutrophilia. ESR was 42. Coagswere normal. We obtained a VBG due to his altered mental status and pH was 7.41. Chemistry panel showed normal electrolytes with a BUN of 45 and a serum creatinine of 1.95 (baseline 1.2-1.5). Serum glucose was 171 and lactic acid was 2.0 with a repeat of 1.1. AST and ALT were elevated at 86 and 48 r espectively. Ammonia level was obtained and was found to be 13.6. CRP was markedly elevated 168. His urine is consistent with concentration having a specific gravity of 1.02 but was not consistent with infection. Chest x-ray wasnegative for any acute findings. CT of the foot showed diffuse soft tissue edema with swelling consistent with cellulitis without fluid collection or drainable abscess andno evidence of osteomyelitis or gas forming infection. The emergency department he was treated with broad-spectrum antibiotics and IV fluids. It does appear maybe he was on outpatient doxycycline for his foot however we were not able to verify with his facility. [facility] Medical History Agitation due to dementia Closed head injury Fall Dementia Hypothyroidism Home Medications ?Medication ?Instructions ?Recorded ?Last Taken ?Type acetaminophen 500 mg capsule 1,000 mg PO BID 01/01/25 Unknown History (Mapap (acetaminophen)) acetaminophen 500 mg tablet 500 mg PO BID PRN fever or pain 01/01/25 Unknown History doxycycline hyclate 100 mg capsule 100 mg PO BID 01/01 Unknown History levothyroxine 150 mcg tablet 150 mcg PO DAILY 01/01/25 Unknown History meloxicam 7.5 mg tablet 7.5 mg PO DAILY 01/01/25 Unk nown History sennosides 8.6 mg tablet (Kaylene-nyasia) 8.6 mg PO BID PRN constipation 01/01/25 Unknown History terbinafine HCl 250 mg tablet 250 mg PO DAILY 01/01/25 Unknown History Allergy/AdvReac Type Severity Reaction Status Date / Time shellfish derived Allergy unknown Verified 01/01/25 15:16 Social History Smoking Status: Never smoker ROS Review of Systems ROS Unobtainable: other Details: Altered mental status and significant hearing loss Vital Signs Vital Signs Vital Signs: 01/01/25 15:12 01/01/25 15:14 01/01/25 15:59 Temperature 102.4 F H 102.4 F H Temperature Source Oral Oral Pulse Rate 122 H 107 H Respiratory Rate 36 H 36 H Respiratory Pattern Blood Pressure 97/64 97/64 Blood Pressure Mean 75 75 Pulse Ox 95 94 Oxygen Delivery Method Room Air Room Air Room Air 01/01/25 16:14 01/01/25 17:00 01/01/25 17:36 Temperature 100.4 F H 101.9 F H Temperature Source Oral Core Pulse Rate 98 123 H Respiratory Rate 20 H 18 Respiratory Pattern Normal Blood Pressure 107/59 L 132/80 H Blood Pressure Mean 75 97 Pulse Ox 95 97 Oxygen Delivery Method Room Air 01/01/25 18:01 01/01/25 19:00 01/01/25 20:00 Temperature 102.1 F H 99.7 F H 99.5 F H Temperature Source Core Temporal Temporal Pulse Rate 120 H 88 96 Respiratory Rate 18 18 18 Respiratory Pattern Blood Pressure 134/87 H 132/69 H 133/78 H Blood Pressure Mean 102 90 96 Pulse Ox 97 99 99 Oxygen Delivery Method Room Air Room Air Room Air 01/01/25 21:00 01/01/25 21:00 Temperature 99.2 F H 99.2 F H Temperature Source Temporal Pulse Rate 109 H 109 H Respiratory Rate 18 18 Respiratory Pattern Blood Pressure 135/79 H 135/79 H Blood Pressure Mean 97 97 Pulse Ox 98 98 Oxygen Delivery Method Room Air Weight Weight: 93 kg Body Mass Index (BMI) 25.6 Physical Exam Const average body habitus and well nourished; Negative for healthy appearing Constitutional Narrative: Sleepy intermittently combative, elderly, white male, lying in bed with his eyesclosed, tries to hit me when I perform exam but we were able to get him calm down to complete exam, appears ill but nottoxic General Appearance: uncooperative Orientation / Consciousness: confused HEENT normocephalic; Negative for hearing grossly normal bilaterally or moist oral mucous membranes HEENT Narrative: Mucous membranes appear dry Eyes conjunctivae normal Eyes Narrative: No scleral icterus Neck supple Neck Narrative: Trachea midline Resp normal respiratory effort, no retractions, no use of accessory muscles and clearto auscultation bilaterally Auscultation: Negative for rales, rhonchi or wheezes Cardio regular rhythm, S1 normal heart sound, S2 normal heart sound, no murmurs, no rub, no gallops and noclicks Cardio Narrative: Mild tachycardia GI normal to inspection, nondistended, normoactive bowel sounds, soft to palpation and non-tender Extremity no clubbing, cyanosis or edema Extremity Narrative: Decreased lean muscle mass Skin Skin Narrative: Scattered skin tears and superficial wounds with significant left lateral foot wound that appears to be chronic, area is erythematous, no significant purulent drainage noted from wound with eschar ispresent Neuro No oriented x3, moves all extremities and no focal motor deficits Neuro Narrative: Patient spontaneously moves all 4 extremities - Was noncommunicative with me at the time of my evaluation Psych Psych Narrative: Patient agitated intermittently Results Lab / Micro Data 01/01/25 15:25 01/01/25 15:25 Labs: Laboratory Results - last 24 hr 01/01/25 15:25: WBC 7.0, RBC 3.87 L, Hgb 12.8 L, Hct 37.4 L, MCV 96.6 H, MCH 33.1 H, MCHC 34.2, RDWStd Deviation 46.9 H, RDW Coeff of Gary 13.1, Plt Count TNP, MPV 11.2, Immature Gran % (Auto) 0.700,Neut % (Auto) 86.5 H, Lymph % (Auto) 2.6 L, [place] % (Auto) 9.8, Eos % (Auto) 0.1, Baso % (Auto) 0.3,Absolute Neuts (auto) 6.0, Absolute Lymphs (auto) 0.18 L, Nucleated RBC % 0, DifferentialComment SCANNED, Platelet Estimate ADEQUATE, PT Cancelled, INR Cancelled, APTT Cancelled, Sodium 134, Potassium 4.7, Chloride 100, Carbon Dioxide 20.9 L, AnionGap 13, BUN 45 H, Creatinine 1.95 H, Estim Creat Clear Calc 31.30 L, Est GFR (MDRD) Non-Af 32 L, BUN/Creatinine Ratio 23.1 H, Glucose 171 H, Lactic Acid 2.0,Calcium 9.6, Total Bilirubin 0.76, AST 86 H, ALT 48 H, Alkaline Phosphatase 189 H, Total Protein 6.9, Albumin 3.7, Globulin 3.2, Albumin/Globulin Ratio 1.2 01/01/25 17:18: Urine Color Yellow, Urine Clarity Sl. Cloudy, Urine pH 6.0, Ur Specific [place] 1.020, Urine Protein 30 H, Urine Glucose (UA) Normal, Urine Ketones 5 H, Urine Occult Blood 250 H, Urine Nitrite Negative, Urine Bilirubin Negative, Urine Urobilinogen Normal, Ur Leukocyte Esterase Negative, Urine RBC 5-10 SEEN, Urine WBC 0-5 SEEN, Ur Squamous Epith Cells 0 SEEN, Urine Bacteria 0 SEEN,Hyaline Casts 0-5 SEEN, Urine Mucus 0 SEEN 01/01/25 18:05: PT 12.7, INR 0.9, APTT 24.3 01/01/25 20:19: Lactic Acid 1.1 Imaging Radiology Impression Brain CT 01/01/25 16:20 IMPRESSION: 1. No acute intracranial finding. 2. Findings of chronic microvascular ischemic changes and age-related changes. Reading Location: [facility] Chest X-Ray 01/01/25 16:38 IMPRESSION: A prominently calcified aorta is seen, also somewhat tortuous. No evidence of cardiomegaly. Lungs appear clear of acute disease. No pleural effusion or pneumothorax is noted. No interval osseous changes noted. Prior right shoulder surgery is again seen. Reading Location: [address] Assessment & Plan Assessment/Plan (1) Open wound of left foot: (2) Acute kidney injury: (3) Tachycardia: (4) Fever: (5) Toxic metabolic encephalopathy: (6) Hyperglycemia: PLAN: Plan Open left foot wound with cellulitis - Suspect this is the etiology of his fever and tachycardia - UA and chest x-ray are not suggestive of infection - Blood and urine cultures are pending - Wound cultures are ordered - MRSA wound - Consult podiatry - ESR and CRP are elevated - Wound care nurse consult - Antibiotics for now with vancomycin and Zosyn - Stop outpatient doxycycline - As needed Tylenol available for fever Hyperglycemia without diagnosis of DM-2 - did have A1c done earlier this year on 09/22/2024 and was found to be 6.1 - Will repeat hemoglobin A1c now that markedly elevated blood sugar - Suspect related to acute infection and A1c will be similar to previous but will reassess given his foot wound and elevations on presentation Toxic/metabolic encephalopathy - Suspect related to the above and exacerbated by his hearing loss at baseline - CT of the brain did not show any acute findings but did show age-related and chronic microvascular ischemic changes CASEY - Baseline serum creatinine is between 1.2 and 1.5 - Currently 1.95 - IV fluids as ordered - Avoid nephrotoxins - Hold home meloxicam - will hold home terbinafine Generalized weakness/debility - Consult PT/OT and speech therapy - Case management/social work consultation for assistance with discharge planning - Patient currently is in a facility Hypothyroidism - Check a.m. TSH - Levothyroxine to continue Onychomycosis - Hold home terbinafine given worsening renal function and acute illness Constipation - Continue home as needed sennosides Dementia-unclear type - Suspect worsened delirium while hospitalized next-could consider as needed risperidone if patienthas agitation issues - Will start melatonin 10 mg scheduled at night to help avoid DVT prophylaxis - Heparin 5000 units every 8 subcu CODE STATUS - DNR CC per documentation from nursing facility - ED is trying to clarify who has guardianship Charges/Coding Visit Charges Inpatient E&M: 68680 Init Hosp L3 01/02/25 0214 Cosigner Signature (if applicable): CC: Dr. Mei Mckenzie DO; Dr. Michael Meeks DO~ Signed [facility]06-13-2025 Discharge summary Author Booker [facility] Note Date/Time January 02, 2025 12:0 5am [facility] Medical Records Department [address] [place] [address] Emergency Department Summary 01/01/25 MR#: [id number] Acct: [id number] Name: GANESH RAZO Rep #:[id number] : 1935 89 From: Booker Sorenson PCP: Dr. Michael Meeks DO Status:REG ER Location: ED HPI HPI - Fall History of Present Illness Chief Complaint: Fall Informant: patient and SNF Occured/Mechanism Occurred: Today Mechanism/Context: Yes same level fall Pain/Injury Pain Location: upper extremity (Bilateral forearms) Worsened by: Nothing Relieved by: Nothing Associated Symptoms Associated Symptoms: Positive for Weakness; Negative for Parasthesias, Loss of function or Loss of consciousness Narrative Narrative: Patient presents after a fall again today. Patient seen here yesterday after a fall. Patient noted skin tear on his right arm at that time. Patient denied hitting his head or having any loss of consciousness after the fall yesterday. Patient ambulated here in the emergency department without difficulty. Patient does not take any anticoagulants. Patient fell again today. Staff reports patient is more unsteady and more confused today. Patient complains of pain in both forearms. Patient does appear to be more confused today. Patient is very hard of hearing. [facility] Medical History Agitation due to dementia Closed head injury Fall Dementia Hypothyroidism Home Medications ?Medication ?Instructions ?Recorded ?Last Taken ?Type acetaminophen 500 mg capsule 1,000 mg PO BID 01/01/25 Unknown History (Mapap (acetaminophen)) acetaminophen 500 mg tablet 500 mg PO BID PRN fever or pain 01/01/25 Unknown History doxycycline hyclate 100 mg capsule 100 mg PO BID 01/01 Unknown History levothyroxine 150 mcg tablet 150 mcg PO DAILY 01/01/25 Unknown History meloxicam 7.5 mg tablet 7.5 mg PO DAILY 01/01/25 Unk nown History sennosides 8.6 mg tablet (Kaylene-nyasia) 8.6 mg PO BID PRN constipation 01/01/25 Unknown History terbinafine HCl 250 mg tablet 250 mg PO DAILY 01/01/25 Unknown History Allergy/AdvReac Type Severity Reaction Status Date / Time shellfish derived Allergy unknown Verified 01/01/25 15:16 Social History Smoking Status: Never smoker ROS ROS ED Review of Systems ROS Unobtainable: due to mental condition EXAM Physical Exam Const Vital Signs: 01/01/25 15:12 01/01/25 15:14 01/01/25 15:59 Temperature 102.4 F H 102.4 F H Temperature Source Oral Oral Pulse Rate 122 H 107 H Respiratory Rate 36 H 36 H Respiratory Pattern Blood Pressure 97/64 97/64 Blood Pressure Mean 75 75 Pulse Ox 95 94 Oxygen Delivery Method Room Air Room Air Room Air 01/01/25 16:14 01/01/25 17:00 01/01/25 17:36 Temperature 100.4 F H 101.9 F H Temperature Source Oral Core Pulse Rate 98 123 H Respiratory Rate 20 H 18 Respiratory Pattern Normal Blood Pressure 107/59 L 132/80 H Blood Pressure Mean 75 97 Pulse Ox 95 97 Oxygen Delivery Method Room Air 01/01/25 18:01 01/01/25 19:00 01/01/25 20:00 Temperature 102.1 F H 99.7 F H 99.5 F H Temperature Source Core Temporal Temporal Pulse Rate 120 H 88 96 Respiratory Rate 18 18 18 Respiratory Pattern Blood Pressure 134/87 H 132/69 H 133/78 H Blood Pressure Mean 102 90 96 Pulse Ox 97 99 99 Oxygen Delivery Method Room Air Room Air Room Air 01/01/25 21:00 01/01/25 21:00 01/01/25 22:00 Temperature 99.2 F H 99.2 F H 100.8 F H Temperature Source Temporal Axillary Pulse Rate 109 H 109 H 82 Respiratory Rate 18 18 18 Respiratory Pattern Blood Pressure 135/79 H 135/79 H 139/97 H Blood Pressure Mean 97 97 111 Pulse Ox 98 98 94 Oxygen Delivery Method Room Air Room Air 01/01/25 23:00 Temperature 99.5 F H Temperature Source Temporal Pulse Rate 102 H Respiratory Rate 18 Respiratory Pattern Blood Pressure 152/84 H Blood Pressure Mean 106 Pulse Ox 95 Oxygen Delivery Method Room Air Positive well nourished and well developed General Appearance ED: well developed and NAD HEENT Reports normocephalic atraumatic Neck full ROM and supple Resp clear to auscultation bilaterally Auscultation: diminished lung sounds Cardio regular rhythm Rate: tachycardic GI non-tender and non-distended Palpation: soft Neuro oriented x3, CN's II-XII intact bilaterally, moves all extremities, no focal motor deficits and no sensory deficits noted Sensorium / Orientation: alert, orientation impaired and confused Motor Exam: strength 5/5 throughout MDM MDM MDM Narrative Medical decision making narrative: Differential diagnosis includes but is not limited to general weakness, deconditioning, electrolyte abnormality, urinary tract infection, intracranial bleeding, closed head injury, viral illness, and pneumonia. EKG will be obtained to assess for cardiac dysrhythmia and cardiac ischemia. CT scan of thebrain will be obtained to assess for intracranial bleeding. Chest x-ray will beobtained to assess for pneumonia or bronchitis. CBC will be obtained to assess for leukocytosis and anemia. Comprehensive metabolic profile will be obtained to assess for electrolyte abnormality and renal function. Urinalysis will be obtained to assess for urinary tract infection and hematuria. Lactate will be obtained to assess for sepsis. Blood cultures will be obtained to assess for sepsis. Urine culture will be obtained to assess for urinary tract infection. History & Record Review Additional record(s) reviewed:: Prior ED visit and Prior labs Lab Data Attestation: I reviewed the patient's lab results. Lab results narrative: CBC was reviewed. White blood cell count was normal. Hemoglobin was slightly low at 12.8 and hematocrit was 37.4. Comprehensive metabolic profile was reviewed. BUN was 45 and creatinine was 1.95. These were increased from previous result. PT was INR and PTT were reviewed and were within normal limits. Urinalysis was reviewed. Occult blood was 250. There are 5-10 red blood cells. There is no evidence of urinary tract infection. Serum lactate was reviewed and was normal at 2.0. Repeat lactate was reviewed and was normal at 1.1. Labs: Laboratory Results - last 24 hr 01/01/25 01/01/25 01/01/25 15:25 17:18 18:05 WBC 7.0 RBC 3.87 L Hgb 12.8 L Hct 37.4 L MCV 96.6 H MCH 33.1 H MCHC 34.2 RDW Std Deviation 46.9 H RDW Coeff of Gary 13.1 Plt Count TNP MPV 11.2 Immature Gran % (Auto) 0.700 Neut % (Auto) 86.5 H Lymph % (Auto) 2.6 L [place] % (Auto) 9.8 Eos % (Auto) 0.1 Baso % (Auto) 0.3 Absolute Neuts (auto) 6.0 Absolute Lymphs (auto) 0.18 L Nucleated RBC % 0 Differential Comment SCANNED Platelet Estimate ADEQUATE ESR 42 H PT Cancelled 12.7 INR Cancelled 0.9 APTT Cancelled 24.3 Sodium 134 Potassium 4.7 Chloride 100 Carbon Dioxide 20.9 L Anion Gap 13 BUN 45 H Creatinine 1.95 H Estim Creat Clear Calc 31.30 L Est GFR (MDRD) Non-Af 32 L BUN/Creatinine Ratio 23.1 H Glucose 171 H Lactic Acid 2.0 Calcium 9.6 Total Bilirubin 0.76 AST 86 H ALT 48 H Alkaline Phosphatase 189 H Ammonia C-React Prot Ext Range 168.00 H Total Protein 6.9 Albumin 3.7 Globulin 3.2 Albumin/Globulin Ratio 1.2 Urine Color Yellow Urine Clarity Sl. Cloudy Urine pH 6.0 Ur Specific [place] 1.020 Urine Protein 30 H Urine Glucose (UA) Normal Urine Ketones 5 H Urine Occult Blood 250 H Urine Nitrite Negative Urine Bilirubin Negative Urine Urobilinogen Normal Ur Leukocyte Esterase Negative Urine RBC 5-10 SEEN Urine WBC 0-5 SEEN Ur Squamous Epith Cells 0 SEEN Urine Bacteria 0 SEEN Hyaline Casts 0-5 SEEN Urine Mucus 0 SEEN 01/01/25 01/01/25 20:19 21:54 WBC RBC Hgb Hct MCV MCH MCHC RDW Std Deviation RDW Coeff of Gary Plt Count MPV Immature Gran % (Auto) Neut % (Auto) Lymph % (Auto) [place] % (Auto) Eos % (Auto) Baso % (Auto) Absolute Neuts (auto) Absolute Lymphs (auto) Nucleated RBC % Differential Comment Platelet Estimate ESR PT INR APTT Sodium Potassium Chloride Carbon Dioxide Anion Gap BUN Creatinine Estim Creat Clear Calc Est GFR (MDRD) Non-Af BUN/Creatinine Ratio Glucose Lactic Acid 1.1 Calcium Total Bilirubin AST ALT Alkaline Phosphatase Ammonia 13.6 L C-React Prot Ext Range Total Protein Albumin Globulin Albumin/Globulin Ratio Urine Color Urine Clarity Urine pH Ur Specific [place] Urine Protein Urine Glucose (UA) Urine Ketones Urine Occult Blood Urine Nitrite Urine Bilirubin Urine Urobilinogen Ur Leukocyte Esterase Urine RBC Urine WBC Ur Squamous Epith Cells Urine Bacteria Hyaline Casts Urine Mucus ABG Data ABG results: ABG 01/01/25 22:00 Specimen Type JOON Sample Site Not entered VBG pH 7.41 VBG pO2 32 VBG HCO3 22 VBG Total CO2 23 VBG O2 Sat (Calc) 62 VBG Base Excess -3 L POC Mix VBG pCO2 Pt Tmp 35.1 L O2 Delivery Device Room Air Radiography Diagnostic Testing: Clinical Impression(s) from Imaging Studies Brain CT 01/01/25 16:20 IMPRESSION: 1. No acute intracranial finding. 2. Findings of chronic microvascular ischemic changes and age-related changes. Reading Location: [facility] Chest X-Ray 01/01/25 16:38 IMPRESSION: A prominently calcified aorta is seen, also somewhat tortuous. No evidence of cardiomegaly. Lungs appear clear of acute disease. No pleural effusion or pneumothorax is noted. No interval osseous changes noted. Prior right shoulder surgery is again seen. Reading Location: [address] scan of the brain was obtained. There is no acute intracranial abnormality. There are chronic changes noted. This was interpreted by the radiologist and was also independently reviewed by myself. PA and lateral chest x-ray was obtained. There are 2 views. On my independent interpretation, lung huerta are clear. There is normal cardiac silhouette. Bony thorax is normal. There is no acute process noted. Radiologist also interpreted the x-ray and agrees. EKG Initial EKG: Attestation: I personally reviewed and interpreted this EKG as follows: Interpretation: Sinus Rhythm (With PACs with a rate of 98) and No Acute Injury Pattern Comments: EKG was obtained. On my independent interpretation, it showed anormal sinus rhythm with PACs with a rate of 98. OK interval, QRS interval, andQTc intervals were all normal. Penrose was normal. There are no acute ST or T wave changes. Prior EKG tracings: available for review Prior: Unchanged (09/17/2024) Treatment and Re-Evaluation Narrative: Patient is still somewhat confused on exam. Patient was told that he would needto be admitted to the hospital. Patient appeared to understand. Patient was started on Zosyn and vancomycin. Case was discussed with the hospitalist. She recommended obtaining an ABG to assess for hypercapnia as a cause of the confusion. This was unable to be obtained so VBG was ordered. Patient's pH is normal at 7.406, pCO2 was 35.1, PO2 was 31.9, and bicarb was 22.0. On her evaluation, she noted an open wound on the plantar aspect of the left foot over the fifth MTP joint. She recommended obtaining a CT scan of the foot to assess for osteomyelitis. This was ordered. Patient will be admitted to PCU. Discharge Plan Dx/Rx/DC Orders Clinical Impression: Altered mental status, Fever, Tachycardia, Fall, Open wound of left foot, Acutekidney injury Disposition Disposition: Acute Care Hospital [facility] What to do if you have Problems For any increased pain, shortness of breath, bleeding, nausea or vomiting, chestpain, or any unexpected problems, contact your Primary Care Provider. Call [facility] ([phone]) or report to the closest Emergency Room. Call 911 if necessary. 01/02/25 0005 <Electronically signed by Booker Rodríguez DO> Cosigner Signature (if applicable): CC: Dr. Michael Meeks DO ~ Signed [facility] Work Phone: [phone]) 172-890706-13-2025 Discharge summary Author Booker Rodríguez [facility] Note Date/Time January 02, 2025 12:0 5am [facility] Medical Records Department [address] [place] [address] Emergency Department Summary 01/01/25 MR#: [id number] Acct: [id number] Name: GANESH RAZO Rep #:[id number] : 1935 89 From: Booker Sorenson PCP: Dr. Michael Meeks, DO Status:REG ER Location: ED HPI HPI - Fall History of Present Illness Chief Complaint: Fall Informant: patient and SNF Occured/Mechanism Occurred: Today Mechanism/Context: Yes same level fall Pain/Injury Pain Location: upper extremity (Bilateral forearms) Worsened by: Nothing Relieved by: Nothing Associated Symptoms Associated Symptoms: Positive for Weakness; Negative for Parasthesias, Loss of function or Loss of consciousness Narrative Narrative: Patient presents after a fall again today. Patient seen here yesterday after a fall. Patient noted skin tear on his right arm at that time. Patient denied hitting his head or having any loss of consciousness after the fall yesterday. Patient ambulated here in the emergency department without difficulty. Patient does not take any anticoagulants. Patient fell again today. Staff reports patient is more unsteady and more confused today. Patient complains of pain in both forearms. Patient does appear to be more confused today. Patient is very hard of hearing. [facility] Medical History Agitation due to dementia Closed head injury Fall Dementia Hypothyroidism Home Medications ?Medication ?Instructions ?Recorded ?Last Taken ?Type acetaminophen 500 mg capsule 1,000 mg PO BID 01/01/25 Unknown History (Mapap (acetaminophen)) acetaminophen 500 mg tablet 500 mg PO BID PRN fever or pain 01/01/25 Unknown History doxycycline hyclate 100 mg capsule 100 mg PO BID 01/01 Unknown History levothyroxine 150 mcg tablet 150 mcg PO DAILY 01/01/25 Unknown History meloxicam 7.5 mg tablet 7.5 mg PO DAILY 01/01/25 Unk nown History sennosides 8.6 mg tablet (Kaylene-nyasia) 8.6 mg PO BID PRN constipation 01/01/25 Unknown History terbinafine HCl 250 mg tablet 250 mg PO DAILY 01/01/25 Unknown History Allergy/AdvReac Type Severity Reaction Status Date / Time shellfish derived Allergy unknown Verified 01/01/25 15:16 Social History Smoking Status: Never smoker ROS ROS ED Review of Systems ROS Unobtainable: due to mental condition EXAM Physical Exam Const Vital Signs: 01/01/25 15:12 01/01/25 15:14 01/01/25 15:59 Temperature 102.4 F H 102.4 F H Temperature Source Oral Oral Pulse Rate 122 H 107 H Respiratory Rate 36 H 36 H Respiratory Pattern Blood Pressure 97/64 97/64 Blood Pressure Mean 75 75 Pulse Ox 95 94 Oxygen Delivery Method Room Air Room Air Room Air 01/01/25 16:14 01/01/25 17:00 01/01/25 17:36 Temperature 100.4 F H 101.9 F H Temperature Source Oral Core Pulse Rate 98 123 H Respiratory Rate 20 H 18 Respiratory Pattern Normal Blood Pressure 107/59 L 132/80 H Blood Pressure Mean 75 97 Pulse Ox 95 97 Oxygen Delivery Method Room Air 01/01/25 18:01 01/01/25 19:00 01/01/25 20:00 Temperature 102.1 F H 99.7 F H 99.5 F H Temperature Source Core Temporal Temporal Pulse Rate 120 H 88 96 Respiratory Rate 18 18 18 Respiratory Pattern Blood Pressure 134/87 H 132/69 H 133/78 H Blood Pressure Mean 102 90 96 Pulse Ox 97 99 99 Oxygen Delivery Method Room Air Room Air Room Air 01/01/25 21:00 01/01/25 21:00 01/01/25 22:00 Temperature 99.2 F H 99.2 F H 100.8 F H Temperature Source Temporal Axillary Pulse Rate 109 H 109 H 82 Respiratory Rate 18 18 18 Respiratory Pattern Blood Pressure 135/79 H 135/79 H 139/97 H Blood Pressure Mean 97 97 111 Pulse Ox 98 98 94 Oxygen Delivery Method Room Air Room Air 01/01/25 23:00 Temperature 99.5 F H Temperature Source Temporal Pulse Rate 102 H Respiratory Rate 18 Respiratory Pattern Blood Pressure 152/84 H Blood Pressure Mean 106 Pulse Ox 95 Oxygen Delivery Method Room Air Positive well nourished and well developed General Appearance ED: well developed and NAD HEENT Reports normocephalic atraumatic Neck full ROM and supple Resp clear to auscultation bilaterally Auscultation: diminished lung sounds Cardio regular rhythm Rate: tachycardic GI non-tender and non-distended Palpation: soft Neuro oriented x3, CN's II-XII intact bilaterally, moves all extremities, no focal motor deficits and no sensory deficits noted Sensorium / Orientation: alert, orientation impaired and confused Motor Exam: strength 5/5 throughout MDM MDM MDM Narrative Medical decision making narrative: Differential diagnosis includes but is not limited to general weakness, deconditioning, electrolyte abnormality, urinary tract infection, intracranial bleeding, closed head injury, viral illness, and pneumonia. EKG will be obtained to assess for cardiac dysrhythmia and cardiac ischemia. CT scan of thebrain will be obtained to assess for intracranial bleeding. Chest x-ray will beobtained to assess for pneumonia or bronchitis. CBC will be obtained to assess for leukocytosis and anemia. Comprehensive metabolic profile will be obtained to assess for electrolyte abnormality and renal function. Urinalysis will be obtained to assess for urinary tract infection and hematuria. Lactate will be obtained to assess for sepsis. Blood cultures will be obtained to assess for sepsis. Urine culture will be obtained to assess for urinary tract infection. History & Record Review Additional record(s) reviewed:: Prior ED visit and Prior labs Lab Data Attestation: I reviewed the patient's lab results. Lab results narrative: CBC was reviewed. White blood cell count was normal. Hemoglobin was slightly low at 12.8 and hematocrit was 37.4. Comprehensive metabolic profile was reviewed. BUN was 45 and creatinine was 1.95. These were increased from previous result. PT was INR and PTT were reviewed and were within normal limits. Urinalysis was reviewed. Occult blood was 250. There are 5-10 red blood cells. There is no evidence of urinary tract infection. Serum lactate was reviewed and was normal at 2.0. Repeat lactate was reviewed and was normal at 1.1. Labs: Laboratory Results - last 24 hr 01/01/25 01/01/25 01/01/25 15:25 17:18 18:05 WBC 7.0 RBC 3.87 L Hgb 12.8 L Hct 37.4 L MCV 96.6 H MCH 33.1 H MCHC 34.2 RDW Std Deviation 46.9 H RDW Coeff of Gary 13.1 Plt Count TNP MPV 11.2 Immature Gran % (Auto) 0.700 Neut % (Auto) 86.5 H Lymph % (Auto) 2.6 L [place] % (Auto) 9.8 Eos % (Auto) 0.1 Baso % (Auto) 0.3 Absolute Neuts (auto) 6.0 Absolute Lymphs (auto) 0.18 L Nucleated RBC % 0 Differential Comment SCANNED Platelet Estimate ADEQUATE ESR 42 H PT Cancelled 12.7 INR Cancelled 0.9 APTT Cancelled 24.3 Sodium 134 Potassium 4.7 Chloride 100 Carbon Dioxide 20.9 L Anion Gap 13 BUN 45 H Creatinine 1.95 H Estim Creat Clear Calc 31.30 L Est GFR (MDRD) Non-Af 32 L BUN/Creatinine Ratio 23.1 H Glucose 171 H Lactic Acid 2.0 Calcium 9.6 Total Bilirubin 0.76 AST 86 H ALT 48 H Alkaline Phosphatase 189 H Ammonia C-React Prot Ext Range 168.00 H Total Protein 6.9 Albumin 3.7 Globulin 3.2 Albumin/Globulin Ratio 1.2 Urine Color Yellow Urine Clarity Sl. Cloudy Urine pH 6.0 Ur Specific [place] 1.020 Urine Protein 30 H Urine Glucose (UA) Normal Urine Ketones 5 H Urine Occult Blood 250 H Urine Nitrite Negative Urine Bilirubin Negative Urine Urobilinogen Normal Ur Leukocyte Esterase Negative Urine RBC 5-10 SEEN Urine WBC 0-5 SEEN Ur Squamous Epith Cells 0 SEEN Urine Bacteria 0 SEEN Hyaline Casts 0-5 SEEN Urine Mucus 0 SEEN 01/01/25 01/01/25 20:19 21:54 WBC RBC Hgb Hct MCV MCH MCHC RDW Std Deviation RDW Coeff of Gary Plt Count MPV Immature Gran % (Auto) Neut % (Auto) Lymph % (Auto) [place] % (Auto) Eos % (Auto) Baso % (Auto) Absolute Neuts (auto) Absolute Lymphs (auto) Nucleated RBC % Differential Comment Platelet Estimate ESR PT INR APTT Sodium Potassium Chloride Carbon Dioxide Anion Gap BUN Creatinine Estim Creat Clear Calc Est GFR (MDRD) Non-Af BUN/Creatinine Ratio Glucose Lactic Acid 1.1 Calcium Total Bilirubin AST ALT Alkaline Phosphatase Ammonia 13.6 L C-React Prot Ext Range Total Protein Albumin Globulin Albumin/Globulin Ratio Urine Color Urine Clarity Urine pH Ur Specific [place] Urine Protein Urine Glucose (UA) Urine Ketones Urine Occult Blood Urine Nitrite Urine Bilirubin Urine Urobilinogen Ur Leukocyte Esterase Urine RBC Urine WBC Ur Squamous Epith Cells Urine Bacteria Hyaline Casts Urine Mucus ABG Data ABG results: ABG 01/01/25 22:00 Specimen Type JOON Sample Site Not entered VBG pH 7.41 VBG pO2 32 VBG HCO3 22 VBG Total CO2 23 VBG O2 Sat (Calc) 62 VBG Base Excess -3 L POC Mix VBG pCO2 Pt Tmp 35.1 L O2 Delivery Device Room Air Radiography Diagnostic Testing: Clinical Impression(s) from Imaging Studies Brain CT 01/01/25 16:20 IMPRESSION: 1. No acute intracranial finding. 2. Findings of chronic microvascular ischemic changes and age-related changes. Reading Location: [facility] Chest X-Ray 01/01/25 16:38 IMPRESSION: A prominently calcified aorta is seen, also somewhat tortuous. No evidence of cardiomegaly. Lungs appear clear of acute disease. No pleural effusion or pneumothorax is noted. No interval osseous changes noted. Prior right shoulder surgery is again seen. Reading Location: [address] scan of the brain was obtained. There is no acute intracranial abnormality. There are chronic changes noted. This was interpreted by the radiologist and was also independently reviewed by myself. PA and lateral chest x-ray was obtained. There are 2 views. On my independent interpretation, lung huerta are clear. There is normal cardiac silhouette. Bony thorax is normal. There is no acute process noted. Radiologist also interpreted the x-ray and agrees. EKG Initial EKG: Attestation: I personally reviewed and interpreted this EKG as follows: Interpretation: Sinus Rhythm (With PACs with a rate of 98) and No Acute Injury Pattern Comments: EKG was obtained. On my independent interpretation, it showed anormal sinus rhythm with PACs with a rate of 98. OK interval, QRS interval, andQTc intervals were all normal. Penrose was normal. There are no acute ST or T wave changes. Prior EKG tracings: available for review Prior: Unchanged (09/17/2024) Treatment and Re-Evaluation Narrative: Patient is still somewhat confused on exam. Patient was told that he would needto be admitted to the hospital. Patient appeared to understand. Patient was started on Zosyn and vancomycin. Case was discussed with the hospitalist. She recommended obtaining an ABG to assess for hypercapnia as a cause of the confusion. This was unable to be obtained so VBG was ordered. Patient's pH is normal at 7.406, pCO2 was 35.1, PO2 was 31.9, and bicarb was 22.0. On her evaluation, she noted an open wound on the plantar aspect of the left foot over the fifth MTP joint. She recommended obtaining a CT scan of the foot to assess for osteomyelitis. This was ordered. Patient will be admitted to PCU. Discharge Plan Dx/Rx/DC Orders Clinical Impression: Altered mental status, Fever, Tachycardia, Fall, Open wound of left foot, Acutekidney injury Disposition Disposition: [facility] What to do if you have Problems For any increased pain, shortness of breath, bleeding, nausea or vomiting, chestpain, or any unexpected problems, contact your Primary Care Provider. Call [facility] ([phone]) or report to the closest Emergency Room. Call 911 if necessary. 01/02/25 0005 <Electronically signed by Booker Rodríguez DO> Cosigner Signature (if applicable): CC: Dr. Michael Meeks DO ~ Signed [facility] Work Phone: [phone]) 420-663706-13-2025 Radiology Diagnostic study note [facility] Imaging Services [address] [place] [address] [id number] Extremity Lower without Contra MR#: [id number] Acct: [id number] Name: GANESH RAZO Rep #: [id number] : 1935 M 89 From: Guillaume Sweet MD PCP: Dr. Michael Meeks DO Status: REG ER Study:Extremity Lower without Contra Date of Exam: 01/01/25 Exam# [id number] Ordering Dr: Booker Rodríguez DO PROCEDURE: EXTREMITY LOWER WITHOUT CONTRA 01/01/2025 REASON FOR EXAM: LEFT FOOT WOUND TECHNIQUE: Axial CT images of the left foot obtained with intravenous contrast. Coronal andSagittal reconstruction series were provided. CONTRAST: None. One or more dose reduction techniques were used (e.g., Automated exposure control, adjustment of the mA and/or kV according to patient size, use of iterative reconstruction technique). RADIATION DOSE SUMMARY: CTDlvol: 15.35 mGy DLP: 1110 mGycm COMPARISON: None. FINDINGS: Diffuse soft tissue edema and swelling, probably cellulitis. No fluid collection or drainable abscess formation is seen. No CT evidence of osteomyelitis or gas-forming infection. 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 Calcaneal spur formation. Enthesophyte formation at the calcaneal insertion of Achilles tendon. Mild osteopenia of the visualized bones. Degenerative joint disease. No fracture or dislocation is seen. No lytic or blastic bone lesion is noted. CT/Extremity Lower without Contra IMPRESSION: 1. Diffuse soft tissue edema and swelling, probably cellulitis. 2. No fluid collection or drainable abscess formation is seen. 3. No CT evidence of osteomyelitis or gas-forming infection. 4. 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 5. Hallux valgus deformity. 6. Hammertoes deformities. 7. Calcaneal spur formation. 8. Enthesophyte formation at the calcaneal insertion of Achilles tendon. Reading Location: [place] [address] CC: Dr. Booker Rodríguez DO; Dr. Michael Meeks DO ~ [employer] T[employer] Developer: Signed [facility]06-13-2025 Discharge summary [facility] Medical Records Department [address] [place] [id number] Emergency Department Summary 01/01/25 MR#: [id number] Acct: [id number] Name: GANESH RAZO Rep #:[id number] : 1935 89 From: Booker Sorenson PCP: Dr. Michael Meeks DO Status:REG ER Location: ED HPI HPI - Fall History of Present Illness Chief Complaint: Fall Informant: patient and SNF Occured/Mechanism Occurred: Today Mechanism/Context: Yes same level fall Pain/Injury Pain Location: upper extremity (Bilateral forearms) Worsened by: Nothing Relieved by: Nothing Associated Symptoms Associated Symptoms: Positive for Weakness; Negative for Parasthesias, Loss of function or Loss of consciousness Narrative Narrative: Patient presents after a fall again today. Patient seen here yesterday after a fall. Patient noted skin tear on his right arm at that time. Patient denied hitting his head or having any loss of consciousness after the fall yesterday. Patient ambulated here in the emergency department without difficulty. Patient does not take any anticoagulants. Patient fell again today. Staff reports patient is more unsteady and more confused today. Patient complains of pain in both forearms. Patient does appear to be more confused today. Patient is very hard of hearing. PFSH PFS Medical History Agitation due to dementia Closed head injury Fall Dementia Hypothyroidism Home Medications ?Medication ?Instructions ?Recorded ?Last Taken ?Type acetaminophen 500 mg capsule 1,000 mg PO BID 01/01/25 Unknown History (Mapap (acetaminophen)) acetaminophen 500 mg tablet 500 mg PO BID PRN fever or pain 01/01/25 Unknown History doxycycline hyclate 100 mg capsule 100 mg PO BID 01/01 Unknown History levothyroxine 150 mcg tablet 150 mcg PO DAILY 01/01/25 Unknown History meloxicam 7.5 mg tablet 7.5 mg PO DAILY 01/01/25 Unk nown History sennosides 8.6 mg tablet (Kaylene-nyasia) 8.6 mg PO BID PRN constipation 01/01/25 Unknown History terbinafine HCl 250 mg tablet 250 mg PO DAILY 01/01/25 Unknown History Allergy/AdvReac Type Severity Reaction Status Date / Time shellfish derived Allergy unknown Verified 01/01/25 15:16 Social History Smoking Status: Never smoker ROS ROS ED Review of Systems ROS Unobtainable: due to mental condition EXAM Physical Exam Const Vital Signs: 01/01/25 15:12 01/01/25 15:14 01/01/25 15:59 Temperature 102.4 F H 102.4 F H Temperature Source Oral Oral Pulse Rate 122 H 107 H Respiratory Rate 36 H 36 H Respiratory Pattern Blood Pressure 97/64 97/64 Blood Pressure Mean 75 75 Pulse Ox 95 94 Oxygen Delivery Method Room Air Room Air Room Air 01/01/25 16:14 01/01/25 17:00 01/01/25 17:36 Temperature 100.4 F H 101.9 F H Temperature Source Oral Core Pulse Rate 98 123 H Respiratory Rate 20 H 18 Respiratory Pattern Normal Blood Pressure 107/59 L 132/80 H Blood Pressure Mean 75 97 Pulse Ox 95 97 Oxygen Delivery Method Room Air 01/01/25 18:01 01/01/25 19:00 01/01/25 20:00 Temperature 102.1 F H 99.7 F H 99.5 F H Temperature Source Core Temporal Temporal Pulse Rate 120 H 88 96 Respiratory Rate 18 18 18 Respiratory Pattern Blood Pressure 134/87 H 132/69 H 133/78 H Blood Pressure Mean 102 90 96 Pulse Ox 97 99 99 Oxygen Delivery Method Room Air Room Air Room Air 01/01/25 21:00 01/01/25 21:00 01/01/25 22:00 Temperature 99.2 F H 99.2 F H 100.8 F H Temperature Source Temporal Axillary Pulse Rate 109 H 109 H 82 Respiratory Rate 18 18 18 Respiratory Pattern Blood Pressure 135/79 H 135/79 H 139/97 H Blood Pressure Mean 97 97 111 Pulse Ox 98 98 94 Oxygen Delivery Method Room Air Room Air 01/01/25 23:00 Temperature 99.5 F H Temperature Source Temporal Pulse Rate 102 H Respiratory Rate 18 Respiratory Pattern Blood Pressure 152/84 H Blood Pressure Mean 106 Pulse Ox 95 Oxygen Delivery Method Room Air Positive well nourished and well developed General Appearance ED: well developed and NAD HEENT Reports normocephalic atraumatic Neck full ROM and supple Resp clear to auscultation bilaterally Auscultation: diminished lung sounds Cardio regular rhythm Rate: tachycardic GI non-tender and non-distended Palpation: soft Neuro oriented x3, CN's II-XII intact bilaterally, moves all extremities, no focal motor deficits and no sensory deficits noted Sensorium / Orientation: alert, orientation impaired and confused Motor Exam: strength 5/5 throughout MDM MDM MDM Narrative Medical decision making narrative: Differential diagnosis includes but is not limited to general weakness, deconditioning, electrolyteabnormality, urinary tract infection, intracranial bleeding, closed head injury, viral illness, andpneumonia. EKG will be obtained to assess for cardiac dysrhythmia and cardiac ischemia. CT scan of thebrain will be obtained to assess for intracranial bleeding. Chest x-ray will beobtained to assessfor pneumonia or bronchitis. CBC will be obtained to assess for leukocytosis and anemia. Comprehensive metabolic profile will be obtained to assess for electrolyte abnormality and renal function. Urinalysis will be obtained to assess for urinary tract infection and hematuria. Lactate will be obtained to assess for sepsis. Blood cultures will be obtained to assess for sepsis. Urine culture will beobtained to assess for urinary tract infection. History & Record Review Additional record(s) reviewed:: Prior ED visit and Prior labs Lab Data Attestation: I reviewed the patient's lab results. Lab results narrative: CBC was reviewed. White blood cell count was normal. Hemoglobin was slightly low at 12.8 and hematocrit was 37.4. Comprehensive metabolic profile was reviewed. BUN was 45 and creatinine was 1.95. These were increased from previous result. PT was INR and PTT were reviewed and were within normal limits. Urinalysis was reviewed. Occult blood was 250. There are 5-10 red blood cells. There is no evidence of urinary tract infection. Serum lactate was reviewed and was normal at 2.0. Repeat lactate wasreviewed and was normal at 1.1. Labs: Laboratory Results - last 24 hr 01/01/25 01/01/25 01/01/25 15:25 17:18 18:05 WBC 7.0 RBC 3.87 L Hgb 12.8 L Hct 37.4 L MCV 96.6 H MCH 33.1 H MCHC 34.2 RDW Std Deviation 46.9 H RDW Coeff of Gary 13.1 Plt Count TNP MPV 11.2 Immature Gran % (Auto) 0.700 Neut % (Auto) 86.5 H Lymph % (Auto) 2.6 L [place] % (Auto) 9.8 Eos % (Auto) 0.1 Baso % (Auto) 0.3 Absolute Neuts (auto) 6.0 Absolute Lymphs (auto) 0.18 L Nucleated RBC % 0 Differential Comment SCANNED Platelet Estimate ADEQUATE ESR 42 H PT Cancelled 12.7 INR Cancelled 0.9 APTT Cancelled 24.3 Sodium 134 Potassium 4.7 Chloride 100 Carbon Dioxide 20.9 L Anion Gap 13 BUN 45 H Creatinine 1.95 H Estim Creat Clear Calc 31.30 L Est GFR (MDRD) Non-Af 32 L BUN/Creatinine Ratio 23.1 H Glucose 171 H Lactic Acid 2.0 Calcium 9.6 Total Bilirubin 0.76 AST 86 H ALT 48 H Alkaline Phosphatase 189 H Ammonia C-React Prot Ext Range 168.00 H Total Protein 6.9 Albumin 3.7 Globulin 3.2 Albumin/Globulin Ratio 1.2 Urine Color Yellow Urine Clarity Sl. Cloudy Urine pH 6.0 Ur Specific [place] 1.020 Urine Protein 30 H Urine Glucose (UA) Normal Urine Ketones 5 H Urine Occult Blood 250 H Urine Nitrite Negative Urine Bilirubin Negative Urine Urobilinogen Normal Ur Leukocyte Esterase Negative Urine RBC 5-10 SEEN Urine WBC 0-5 SEEN Ur Squamous Epith Cells 0 SEEN Urine Bacteria 0 SEEN Hyaline Casts 0-5 SEEN Urine Mucus 0 SEEN 01/01/25 01/01/25 20:19 21:54 WBC RBC Hgb Hct MCV MCH MCHC RDW Std Deviation RDW Coeff of Gary Plt Count MPV Immature Gran % (Auto) Neut % (Auto) Lymph % (Auto) [place] % (Auto) Eos % (Auto) Baso % (Auto) Absolute Neuts (auto) Absolute Lymphs (auto) Nucleated RBC % Differential Comment Platelet Estimate ESR PT INR APTT Sodium Potassium Chloride Carbon Dioxide Anion Gap BUN Creatinine Estim Creat Clear Calc Est GFR (MDRD) Non-Af BUN/Creatinine Ratio Glucose Lactic Acid 1.1 Calcium Total Bilirubin AST ALT Alkaline Phosphatase Ammonia 13.6 L C-React Prot Ext Range Total Protein Albumin Globulin Albumin/Globulin Ratio Urine Color Urine Clarity Urine pH Ur Specific [place] Urine Protein Urine Glucose (UA) Urine Ketones Urine Occult Blood Urine Nitrite Urine Bilirubin Urine Urobilinogen Ur Leukocyte Esterase Urine RBC Urine WBC Ur Squamous Epith Cells Urine Bacteria Hyaline Casts Urine Mucus ABG Data ABG results: ABG 01/01/25 22:00 Specimen Type JOON Sample Site Not entered VBG pH 7.41 VBG pO2 32 VBG HCO3 22 VBG Total CO2 23 VBG O2 Sat (Calc) 62 VBG Base Excess -3 L POC Mix VBG pCO2 Pt Tmp 35.1 L O2 Delivery Device Room Air Radiography Diagnostic Testing: Clinical Impression(s) from Imaging Studies Brain CT 01/01/25 16:20 IMPRESSION: 1. No acute intracranial finding. 2. Findings of chronic microvascular ischemic changes and age-related changes. Reading Location: [id number] Chest X-Ray 01/01/25 16:38 IMPRESSION: A prominently calcified aorta is seen, also somewhat tortuous. No evidence of cardiomegaly. Lungs appear clear of acute disease. No pleural effusion or pneumothorax is noted. No interval osseous changes noted. Prior right shoulder surgery is again seen. Reading Location: [address] scan of the brain was obtained. There is no acute intracranial abnormality. There are chronic changes noted. This was interpreted by the radiologist and was also independently reviewed by myself. PA and lateral chest x-ray was obtained. There are 2 views. On my independent interpretation, lung huerta are clear. There is normal cardiac silhouette. Bony thorax is normal. There is no acute process noted. Radiologist also interpreted the x-ray and agrees. EKG Initial EKG: Attestation: I personally reviewed and interpreted this EKG as follows: Interpretation: Sinus Rhythm (With PACs with a rate of 98) and No Acute Injury Pattern Comments: EKG was obtained. On my independent interpretation, it showed anormal sinus rhythm with PACs with a rate of 98. OK interval, QRS interval, andQTc intervals were all normal. Penrose was normal.There are no acute ST or T wave changes. Prior EKG tracings: available for review Prior: Unchanged (09/17/2024) Treatment and Re-Evaluation Narrative: Patient is still somewhat confused on exam. Patient was told that he would needto be admitted to the hospital. Patient appeared to understand. Patient was started on Zosyn and vancomycin. Case was discussed with the hospitalist. She recommended obtaining an ABG to assess for hypercapnia as a cause of the confusion. This was unable to be obtained so VBG was ordered. Patient's pH is normal at 7.406, pCO2 was 35.1, PO2 was 31.9, and bicarb was 22.0. On her evaluation, she noted an open wound on the plantar aspect of the left foot over the fifth MTP joint. She recommended obtaining a CT scan of the foot to assess for osteomyelitis. This was ordered. Patient will be admitted to PCU. Discharge Plan Dx/Rx/DC Orders Clinical Impression: Altered mental status, Fever, Tachycardia, Fall, Open wound of left foot, Acutekidney injury Disposition Disposition: [facility] What to do if you have Problems For any increased pain, shortness of breath, bleeding, nausea or vomiting, chestpain, or any unexpected problems, contact your Primary Care Provider. Call [employer] ([phone]) or report tothe closest Emergency Room. Call 911 if necessary. 01/02/25 0005 Cosigner Signature (if applicable): CC: Dr. Michael Meeks, ~ Signed [facility]06-12-2025 History and physical note Author Mei Mckenzie [facility] Note Date/Time January 02, 2025 2:14 am [facility] Medical Records Department [address] [place] [address] H&P Exam - Hospitalist 01/01/252127 MR#: [id number] Acct: [id number] Name: GANESH RAZO Rep #:[id number] : 1935 89 From: Mei Mckenzie DO PCP: Dr. Michael Meeks DO Status:ADM IN Location: [facility] OQU590- 1 HPI - General General Date of Admission: 01/01/25 Date of Service: 01/01/25 Chief Complaint: Falls/altered mental status HPI Narrative GANESH RAZO, is a 89 M who presented to the emergency department at [facility] on 01/01/2025 due to altered mental status and fall. Patient was evaluated on 12/31/2024 in the emergency department for a fall and was able to ambulate and discharged home however he had another fall on the day of presentation. The day prior he had a skin tear on his right arm but denied hitting his head or having any loss of consciousness. He had another fall on the day of presentation as noted and he is more unsteady and more confused per staff at the facility at which she lives. He comes with paperwork that declaresD CC. Patient is significantly hard of hearing so obtaining a history was very difficult he also seemed to be markedly confused at the time of my evaluation. Patient does appear to be infected and having fevers in the emergency department source was initially not identified however on further examhe has noted to have a foot wound consistent with cellulitis on his left lower extremity and this may be the etiology of his infection. Vital signs on presentation showed a temperature of 102.4, heart rate was 122, initial blood pressure was 97/64 with a repeat of 107/59 and then 132/80, respiratory was 36 but has since improved to 18-20 with resolution of his fever,and pulse ox was 95% on room air. CBC had normal white count with a chronic stable anemia but he had a marked left shift with an 86.5% neutrophilia. ESR was 42. Coags were normal. We obtained a VBG due to his altered mental status and pH was 7.41. Chemistry panel showed normal electrolytes with a BUN of 45 and a serum creatinine of 1.95 (baseline 1.2-1.5). Serum glucose was 171 and lactic acid was 2.0 with a repeat of 1.1. AST and ALT were elevated at 86 and 48 respectively. Ammonia level was obtained and was found to be 13.6. CRP was markedly elevated 168. His urine is consistent with concentration having a specific gravity of 1.02 but was not consistent with infection. Chest x-ray wasnegative for any acute findings. CT of the foot showed diffuse soft tissue edema with swelling consistent with cellulitis without fluid collection or drainable abscess and no evidence of osteomyelitis or gas forming infection. The emergency department he was treated with broad-spectrum antibiotics and IV fluids. It does appear maybe he was on outpatient doxycycline for his foot however we were not able to verify with his facility. [facility] Medical History Agitation due to dementia Closed head injury Fall Dementia Hypothyroidism Home Medications ?Medication ?Instructions ?Recorded ?Last Taken ?Type acetaminophen 500 mg capsule 1,000 mg PO BID 01/01/25 Unknown History (Mapap (acetaminophen)) acetaminophen 500 mg tablet 500 mg PO BID PRN fever or pain 01/01/25 Unknown History doxycycline hyclate 100 mg capsule 100 mg PO BID 01/01 Unknown History levothyroxine 150 mcg tablet 150 mcg PO DAILY 01/01/25 Unknown History meloxicam 7.5 mg tablet 7.5 mg PO DAILY 01/01/25 Unk nown History sennosides 8.6 mg tablet (Kaylene-nyasia) 8.6 mg PO BID PRN constipation 01/01/25 Unknown History terbinafine HCl 250 mg tablet 250 mg PO DAILY 01/01/25 Unknown History Allergy/AdvReac Type Severity Reaction Status Date / Time shellfish derived Allergy unknown Verified 01/01/25 15:16 Social History Smoking Status: Never smoker ROS Review of Systems ROS Unobtainable: other Details: Altered mental status and significant hearing loss Vital Signs Vital Signs Vital Signs: 01/01/25 15:12 01/01/25 15:14 01/01/25 15:59 Temperature 102.4 F H 102.4 F H Temperature Source Oral Oral Pulse Rate 122 H 107 H Respiratory Rate 36 H 36 H Respiratory Pattern Blood Pressure 97/64 97/64 Blood Pressure Mean 75 75 Pulse Ox 95 94 Oxygen Delivery Method Room Air Room Air Room Air 01/01/25 16:14 01/01/25 17:00 01/01/25 17:36 Temperature 100.4 F H 101.9 F H Temperature Source Oral Core Pulse Rate 98 123 H Respiratory Rate 20 H 18 Respiratory Pattern Normal Blood Pressure 107/59 L 132/80 H Blood Pressure Mean 75 97 Pulse Ox 95 97 Oxygen Delivery Method Room Air 01/01/25 18:01 01/01/25 19:00 01/01/25 20:00 Temperature 102.1 F H 99.7 F H 99.5 F H Temperature Source Core Temporal Temporal Pulse Rate 120 H 88 96 Respiratory Rate 18 18 18 Respiratory Pattern Blood Pressure 134/87 H 132/69 H 133/78 H Blood Pressure Mean 102 90 96 Pulse Ox 97 99 99 Oxygen Delivery Method Room Air Room Air Room Air 01/01/25 21:00 01/01/25 21:00 Temperature 99.2 F H 99.2 F H Temperature Source Temporal Pulse Rate 109 H 109 H Respiratory Rate 18 18 Respiratory Pattern Blood Pressure 135/79 H 135/79 H Blood Pressure Mean 97 97 Pulse Ox 98 98 Oxygen Delivery Method Room Air Weight Weight: 93 kg Body Mass Index (BMI) 25.6 Physical Exam Const average body habitus and well nourished; Negative for healthy appearing Constitutional Narrative: Sleepy intermittently combative, elderly, white male, lying in bed with his eyesclosed, tries to hit me when I perform exam but we were able to get him calm down to complete exam, appears ill but not toxic General Appearance: uncooperative Orientation / Consciousness: confused HEENT normocephalic; Negative for hearing grossly normal bilaterally or moist oral mucous membranes HEENT Narrative: Mucous membranes appear dry Eyes conjunctivae normal Eyes Narrative: No scleral icterus Neck supple Neck Narrative: Trachea midline Resp normal respiratory effort, no retractions, no use of accessory muscles and clearto auscultation bilaterally Auscultation: Negative for rales, rhonchi or wheezes Cardio regular rhythm, S1 normal heart sound, S2 normal heart sound, no murmurs, no rub, no gallops and no clicks Cardio Narrative: Mild tachycardia GI normal to inspection, nondistended, normoactive bowel sounds, soft to palpation and non-tender Extremity no clubbing, cyanosis or edema Extremity Narrative: Decreased lean muscle mass Skin Skin Narrative: Scattered skin tears and superficial wounds with significant left lateral foot wound that appears to be chronic, area is erythematous, no significant purulent drainage noted from wound with eschar is present Neuro No oriented x3, moves all extremities and no focal motor deficits Neuro Narrative: Patient spontaneously moves all 4 extremities - Was noncommunicative with me at the time of my evaluation Psych Psych Narrative: Patient agitated intermittently Results Lab / Micro Data 01/01/25 15:25 01/01/25 15:25 Labs: Laboratory Results - last 24 hr 01/01/25 15:25: WBC 7.0, RBC 3.87 L, Hgb 12.8 L, Hct 37.4 L, MCV 96.6 H, MCH 33.1 H, MCHC 34.2, RDW Std Deviation 46.9 H, RDW Coeff of Gary 13.1, Plt Count TNP, MPV 11.2, Immature Gran % (Auto) 0.700, Neut % (Auto) 86.5 H, Lymph % (Auto) 2.6 L, [place] % (Auto) 9.8, Eos % (Auto) 0.1, Baso % (Auto) 0.3, Absolute Neuts (auto) 6.0, Absolute Lymphs (auto) 0.18 L, Nucleated RBC % 0, DifferentialComment SCANNED, Platelet Estimate ADEQUATE, PT Cancelled, INR Cancelled, APTT Cancelled, Sodium 134, Potassium 4.7, Chloride 100, Carbon Dioxide 20.9 L, AnionGap 13, BUN 45 H, Creatinine 1.95 H, Estim Creat Clear Calc 31.30 L, Est GFR (MDRD) Non-Af 32 L, BUN/Creatinine Ratio 23.1 H, Glucose 171 H, Lactic Acid 2.0,Calcium 9.6, Total Bilirubin 0.76, AST 86 H, ALT 48 H, Alkaline Phosphatase 189 H, Total Protein 6.9, Albumin 3.7, Globulin 3.2, Albumin/Globulin Ratio 1.2 01/01/25 17:18: Urine Color Yellow, Urine Clarity Sl. Cloudy, Urine pH 6.0, Ur Specific [place] 1.020, Urine Protein 30 H, Urine Glucose (UA) Normal, Urine Ketones 5 H, Urine Occult Blood 250 H, Urine Nitrite Negative, Urine Bilirubin Negative, Urine Urobilinogen Normal, Ur Leukocyte Esterase Negative, Urine RBC 5-10 SEEN, Urine WBC 0-5 SEEN, Ur Squamous Epith Cells 0 SEEN, Urine Bacteria 0 SEEN, Hyaline Casts 0-5 SEEN, Urine Mucus 0 SEEN 01/01/25 18:05: PT 12.7, INR 0.9, APTT 24.3 01/01/25 20:19: Lactic Acid 1.1 Imaging Radiology Impression Brain CT 01/01/25 16:20 IMPRESSION: 1. No acute intracranial finding. 2. Findings of chronic microvascular ischemic changes and age-related changes. Reading Location: [facility] Chest X-Ray 01/01/25 16:38 IMPRESSION: A prominently calcified aorta is seen, also somewhat tortuous. No evidence of cardiomegaly. Lungs appear clear of acute disease. No pleural effusion or pneumothorax is noted. No interval osseous changes noted. Prior right shoulder surgery is again seen. Reading Location: [address] Assessment & Plan Assessment/Plan (1) Open wound of left foot: (2) Acute kidney injury: (3) Tachycardia: (4) Fever: (5) Toxic metabolic encephalopathy: (6) Hyperglycemia: PLAN: Plan Open left foot wound with cellulitis - Suspect this is the etiology of his fever and tachycardia - UA and chest x-ray are not suggestive of infection - Blood and urine cultures are pending - Wound cultures are ordered - MRSA wound - Consult podiatry - ESR and CRP are elevated - Wound care nurse consult - Antibiotics for now with vancomycin and Zosyn - Stop outpatient doxycycline - As needed Tylenol available for fever Hyperglycemia without diagnosis of DM-2 - did have A1c done earlier this year on 09/22/2024 and was found to be 6.1 - Will repeat hemoglobin A1c now that markedly elevated blood sugar - Suspect related to acute infection and A1c will be similar to previous but will reassess given his foot wound and elevations on presentation Toxic/metabolic encephalopathy - Suspect related to the above and exacerbated by his hearing loss at baseline - CT of the brain did not show any acute findings but did show age-related and chronic microvascular ischemic changes CASEY - Baseline serum creatinine is between 1.2 and 1.5 - Currently 1.95 - IV fluids as ordered - Avoid nephrotoxins - Hold home meloxicam - will hold home terbinafine Generalized weakness/debility - Consult PT/OT and speech therapy - Case management/social work consultation for assistance with discharge planning - Patient currently is in a facility Hypothyroidism - Check a.m. TSH - Levothyroxine to continue Onychomycosis - Hold home terbinafine given worsening renal function and acute illness Constipation - Continue home as needed sennosides Dementia-unclear type - Suspect worsened delirium while hospitalized next-could consider as needed risperidone if patient has agitation issues - Will start melatonin 10 mg scheduled at night to help avoid DVT prophylaxis - Heparin 5000 units every 8 subcu CODE STATUS - DNR CC per documentation from nursing facility - ED is trying to clarify who has guardianship Charges/Coding Visit Charges Inpatient E&M: 31757 Init Hosp L3 01/02/25 0214 <Electronically signed by Mei Mckenzie DO> Cosigner Signature (if applicable): CC: Dr. Mei Mckenzie DO; Dr. Michael Meeks DO~ Signed [facility] Work Phone: 1(384) 953-799806-12-2025 Radiology Diagnostic study note [facility] Imaging Services [address] [place] [address] Chest PA and Lateral MR#: [id number] Acct: [id number] Name: GANESH RAZO Rep #: [id number] : 1935 M 89 From: Rahat Garcia MD PCP: Dr. Michael Meeks DO Status: REG ER Study:Chest PA and Lateral Date of Exam: 01/01/25 Exam# [id number] Ordering Dr: Booker Rodríguez DO PROCEDURE: CHEST PA AND LATERAL 01/01/2025 REASON FOR EXAM: DYSPNEA TECHNIQUE: Frontal and lateral views of the chest. COMPARISON: AP chest of 09/16/2024. RAD/Chest PA and Lateral IMPRESSION: A prominently calcified aorta is seen, also somewhat tortuous. No evidence of cardiomegaly. Lungs appear clear of acute disease. No pleural effusion or pneumothorax is noted. No interval osseous changes noted. Prior right shoulder surgery is again seen. Reading Location: [address] CC: Dr. Booker Rodríguez DO; Dr. Michael Meeks DO ~ [employer] Developer: Signed [facility]06-12-2025 Radiology Diagnostic study note [facility] Imaging Services [address] [place] [address] Brain/Head without Contrast MR#: [id number] Acct: [id number] Name: GANESH RAZO Rep #: [id number] : 1935 M 89 From: Morelia Chavez MD PCP: Dr. Michael Meeks DO Status: [facility] ER Study:Brain/Head without Contrast Date of Exa m: 01/01/25 Exam# [id number] Ordering Dr: Booker Rodríguez DO EXAM: BRAIN/HEAD WITHOUT CONTRAST CLINICAL HISTORY: 89 y/o M with FALL. COMPARISON: CT head 09/16/2024. TECHNIQUE: Routine CT imaging of the head without IV contrast. Additional multiplanar reformats were obtained. Dose reduction techniques were used including intermediate exposure control (AEC),iterative reconstruction technique, and/or mA and/or KV dose adjustments based on patient's size. FINDINGS: Moderate generalized cerebral and cerebellar volume loss with concordant prominence of the ventricles and subarachnoid spaces. Moderate patchy supratentorial white matter hypodensities. 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 No acute intracranial hemorrhage or herniation. The catherine- white matter interfacesare otherwise maintained. Prior ocular lens replacements. The visualized paranasal sinuses and mastoids are unremarkable. No acute calvarial fracture or scalp hematoma. CT/Brain/Head without Contrast IMPRESSION: 1. No acute intracranial finding. 2. Findings of chronic microvascular ischemic changes and age-related changes. Reading Location: [facility] CC: Dr. Booker Rodríguez DO; Dr. Michael Meeks, DO ~ [employer] Developer: Signed [facility]06-11-2025 Progress note Author Jaden Forman [facility] Note Date/Time December 31, 2024 1:28 pm [facility] [address] [place] [address] Progress Note - Wound Care 12/31/24 1324 MR#: [id number] Acct: [id number] Name: GANESH RAZO Rep #:[id number] : 1935 89 From: Jaden Sabillon PM PCP: Dr. Alberto Mustafa MD Status:RE G RCR Location: History of Present Illness Date of Service: 12/31/24 Chief Complaint: Full-thickness wound left foot History of Wound: Full-thickness wound left foot Progress of Wound: Full-thickness wound plantar left foot Subjective Subjective Patient is 89-year-old male presented with concern today for follow-up evaluation of full-thickness wound to the plantar aspect of the left foot at thelevel of the subfifth metatarsal head. Nursing staff stated that the patient did not have a dressing, compression wrap to the left lower extremity area. Patient seemed to be agitated during today's visit. He admits to some redness to the left foot. He denies trauma. Denies constitutional symptoms. Other pedal complaints at this time. Objective Data Objective Data Vital Signs: Vital Signs Temp Pulse Resp BP O2 Del Method 98.6 F 72 16 124/63 H Room Air 12/31/24 11:30 12/24/24 09:23 12/31/24 11:30 12/24/24 09:23 12/31/24 11:30 Oxygen Delivery Method Room Air Physical Exam Narrative Vascular: DP and PT pulses are faintly palpable to left lower extremity. CFT isbrisk. Skin temperature gradient is warm to warm from proximal ankle to distal digit. Blanchable erythema to the left foot with evidence of dependent edema/erythema when elevated. Neurologic: Light touch intact. Epicritic sensation is intact. Patient does respond to painful stimuli. Dermatological: Full-thickness wound to the subfifth metatarsal head of the leftfoot measuring 0.5 x 0.5 x 0.7 cm. Positive probe to bone. Excisional debridement down to including subcutaneous tissue, fascia, muscle andbone using a sharp rongeur to the subfifth metatarsal head of the left foot donewithout incident.. Right measurement was 0.3 x 0.3 x 0.4 cm. Postdebridement measurement was 0.5 x 0.5 x 0.7 cm. Musculoskeletal: Pain on palpation to full-thickness wound. No pain with calf compression. Debridement Note Debridement Note Debridement Free Text: Excisional debridement down to including subcutaneous tissue, fascia, muscle and bone using a sharp rongeur to the subfifth metatarsalhead of the left foot done without incident.. Right measurement was 0.3 x 0.3 x0.4 cm. Postdebridement measurement was 0.5 x 0.5 x 0.7 cm. Post-Debridement Measurements and Additional Note: Post-Debridement Measurements/Treatment WC - Nurse 1 - General Ulcer Assessment Start: 12/24/24 09:23 Freq: Status: Active Protocol: WC.LOWEXT Activity Type Activity Date Activity User E-sign Co-sign Detail Recorded Client Recorded Date Recorded By Document 12/24/24 09:23 KW [id number] 12/24/24 09:31 KW Document 12/31/24 11:30 [id number] 12/31/24 11:32 12/24/24 12/31/24 09:23 11:30 - Today's Visit Information Type of service Follow-up Visit Follow-up Visit (Physician/COAL WASHER (Physician/COAL WASHER ) ) Arrival Mode Ambulatory, Ambulatory, Walker Walker Patient Identification Verified (Name & Yes Yes ) Vital Signs Temperature (97.8 F-99.1 F) 96.6 F L 98.6 F Temperature Source Temporal Temporal Pulse Rate (60-100) 72 Pulse Location Monitor Respiratory Rate (12-18) 18 16 Respiratory rate source Observation Observation Oxygen Delivery Method Room Air Room Air Blood Pressure (90/60-120/80) 124/63 H Blood Pressure Mean (mm Hg) 83 Source Monitor Position Semi-Fowlers Blood Pressure Location Left Arm History Since Last Visit- (Skip if this is Patient's initial visit) Have you changed medications since your No No last visit? Any new allergies or adverse reactions No No Had a fall/change in ADL's that may No No increase risk of falls Signs or symptoms of abuse and/or No No neglect since last visit Have you been in the hospital since your No No last visit? Has dressing in place as prescribed Yes No Has compression in place as prescribed N/A No Has offloadiing in place as prescribed N/A N/A Experienced any changes in pain level or No No management Left Footwear Regular Shoe Regular Shoe Right Footwear Regular Shoe Regular Shoe Pain Scale: 0-10 Numeric Is Patient Pain Free? Yes Yes WC - Nurse 1 - General Ulcer Measurement Start: 12/24/24 09:23 Freq: Status: Active Protocol: Activity Type Activity Date Activity User E-sign Co-sign Detail Recorded Client Recorded Date Recorded By Document 12/24/24 09:23 KW [id number] 12/24/24 09:31 KW Document 12/31/24 11:30 GM [id number] 12/31/24 11:32 GM 12/24/24 12/31/24 09:23 11:30 Wound Center Nurse 1 Left Lateral Foot -Current Size (cm) - Length 0.6 0.5 -Current Size (cm) - Width 0.2 0.4 -Current Size (cm) - Depth 0.4 0.2 -Total Square Cm 0.12 0.20 -Date of Last Picture (Recall this 12/24/24 12/31/24 field) -Photo Taken Yes -Tunneling No -Undermining/Tunneling Yes No -Undermining/Tunneling Starts (O'clock 9 ) -Undermining/Tunneling Ends (O'clock) 12 -Maximum Distance (cm) 0.6 -Circular Undermining No -Exudate Amt Medium None Present -Exudate Type Serosanguineous -Wound Margin Thickened Thickened -Granulation Amt Large (67-100%) Small (1-33%) -Granulation Quality [place],Red [place] -Slough/Fibrin No -Necrosis Amt Small (1-33%) -Necrotic Tissue Type Adherent Slough -Texture (Alyce-wound Skin Appearance) Assessed,Callus Assessed,Callus -Moisture (Alyce-wound Skin Appearance) Assessed Assessed, Maceration -Color (Alyce-wound Skin Appearance) Assessed Assessed -Temperature (Alyce-wound Skin No Abnormality No Abnormality Appearance) (Pt Warm) (Pt Warm) -Tenderness on Palpation (Alyce-wound No No Skin Appearance) -Ulcer Cleansing Rinsed/ Rinsed/ Irrigated with Irrigated with Saline Saline -Foul Odor after Cleansing No No -Anesthetic Used 5% Lidocaine 5% Lidocaine Gel Gel Lower Limb Edema Present Yes Left Calf (cm) 38.5 Left Ankle (cm) 27 - Nurse 2 - General Ulcer CM Notes Start: 12/24/24 09:23 Freq: Status: Active Protocol: Activity Type Activity Date Activity User E-sign Co-sign Detail Recorded Client Recorded Date Recorded By Document 12/24/24 09:40 JF [id number] 12/24/24 09:44 JF Document 12/31/24 11:38 JF [id number] 12/31/24 11:47 JF 12/24/24 12/31/24 09:40 11:38 Wound Center Nurse 2 Left Lateral Foot -Time 09:41 11:38 -Correct Patient Yes Yes -Correct Side, Site, Position Yes Yes -Correct Procedure Yes Yes -Procedure Performed Yes Yes -Type of Procedure Debridement Debridement -Clinical Debridement Subcutaneous Bone -Tissue Removed Subcutaneous Non-viable tissue -Post Debridement (cm) - Length 0.8 0.5 -Post Debridement (cm) - Width 0.5 0.5 -Post Debridement (cm) - Depth 0.2 0.7 -Total Square (Post) (cm) 0.40 0.25 -Area of Debridement (cm) - Length 0.8 0.5 -Area of Debridement (cm) - Width 0.5 0.5 -Total Square (Area) (cm) 0.40 0.25 -Tunneling No No -Undermining/Tunneling No No -Circular Undermining No No -Wound/Ulcer Outcome Not Healed Not Healed -Ulcer Cleansing Rinsed/ Rinsed/ Irrigated with Irrigated with Saline Saline -Foul Odor after Cleansing No No -Bioengineered Tissue No No -Bleeding Controlled with Pressure Pressure -Treatment Response Procedure Procedure Tolerated Well Tolerated Well -Offloading No No -Debridement - Subq, 1st 20sq cm Yes -Debridement - Bone, 1st 20sq cm Yes Pain Scale: 0-10 Numeric Is Patient Pain Free? Yes Yes - Nurse 3 - General Ulcer D/C NN Start: 12/24/24 09:23 Freq: Status: Active Protocol: Activity Type Activity Date Activity User E-sign Co-sign Detail Recorded Client Recorded Date Recorded By Document 12/24/24 09:53 KW [id number] 12/24/24 09:54 KW Document 12/31/24 11:52 KW [id number] 12/31/24 11:54 KW Edit Result 06/11/25 11:52 KW (1) [id number] 12/31/24 12:09 RB (1) Left Lateral Foot - Wound Comment(s) => pt appears confused Pt glucose taken and it was 102. pt given ensure and tanker driver immediately picked up pt and took to [facility]. 12/24/24 12/31/24 09:53 11:52 Wound Care Center Nurse 3 Left Lateral Foot -Other Dressing betadine betadine -Primary Dressing Covered/Secured with Dry Gauze,Dry Dry Gauze & Gauze & Roll Roll Gauze, Gauze,Secured Secured with with Tape Tape -Wound Comment(s) pt appears confused Pt glucose taken and it was 102 . pt given ensure and tanker driver immediately picked up pt and took to [facility]. LLE -Tubular Bandage Single Layer Single Layer -Size of Tubigrip Used Size D Size D -Size D ($) 1 1 Pain Scale: 0-10 Numeric Is Patient Pain Free? Yes Yes WC - Visit Discharge Discharge Condition Stable Stable Ambulatory Status Ambulatory, Walker Walker Transportation Private Auto Medication Reconcilliation completed & No No provided to patient/care provider Clinical Summary of Care Provided Yes Yes Assessment/Plan Assessment/Plan (1) Non-pressure chronic ulcer of other part of left foot with necrosis of bone: CODE(S): L97.524 - Non-pressure chronic ulcer of other part of left foot with necrosis of bone PLAN: Patient was examined and evaluated. All findings were discussed with the patient. All questions were answered to the patient's satisfaction. Excisional debridement down to including subcutaneous tissue, fascia, muscle andbone using a sharp rongeur to the subfifth metatarsal head of the left foot donewithout incident.. Right measurement was 0.3 x 0.3 x 0.4 cm. Postdebridement measurement was 0.5 x 0.5 x 0.7 cm. Left lower extremities were cleaned and patted dry. There is evidence of positive probe to bone during today's visit. At this time a phone call was made to the custodial and I spoke with the patient's nurse to make sure that he is being chaperoned when he is coming to his visit that he was agitated today. We did test his blood sugar and his bloodsugar was 101 mg/dL. I did educate the nurse that if he is having any issues heis to report to the emergency room at [facility] for evaluation admission. I also discussed with the nursing staff that we need to coordinate time to discuss treatment options as well as surgery with the POA as the patient will need partial amputation and removal of the fifth metatarsal head of the left foot. Follow-up at the wound care center with Dr. Forman in 1 week. 12/31/24 1328 <Electronically signed by Jaden Forman DPM> Cosigner Signature (if applicable): CC: ~ Signed [facility] Work Phone: 1(787) 393-264206-11-2025 Progress note [facility] [address] [place] [address] Progress Note - Wound Care 12/31/24 1324 MR#: [id number] Acct: [id number] Name: GANESH RAZO Rep #:[id number] : 1935 89 From: Jaden MONAHAN PCP: Dr. Alberto Mustafa MD Status:RE G RCR Location: History of Present Illness Date of Service: 12/31/24 Chief Complaint: Full-thickness wound left foot History of Wound: Full-thickness wound left foot Progress of Wound: Full-thickness wound plantar left foot Subjective Subjective Patient is 89-year-old male presented with concern today for follow-up evaluation of full-thicknesswound to the plantar aspect of the left foot at thelevel of the subfifth metatarsal head. Nursing staff stated that the patient did not have a dressing, compression wrap to the left lower extremity area. Patient seemed to be agitated during today's visit. He admits to some redness to the left foot.He denies trauma. Denies constitutional symptoms. Other pedal complaints at this time. Objective Data Objective Data Vital Signs: Vital Signs Temp Pulse Resp BP O2 Del Method 98.6 F 72 16 124/63 H Room Air 12/31/24 11:30 12/24/24 09:23 12/31/24 11:30 12/24/24 09:23 12/31/24 11:30 Oxygen Delivery Method Room Air Physical Exam Narrative Vascular: DP and PT pulses are faintly palpable to left lower extremity. CFT isbrisk. Skin temperature gradient is warm to warm from proximal ankle to distal digit. Blanchable erythema to the left foot with evidence of dependent edema/erythema when elevated. Neurologic: Light touch intact. Epicritic sensation is intact. Patient does respond to painful stimuli. Dermatological: Full-thickness wound to the subfifth metatarsal head of the leftfoot measuring 0.5 x 0.5 x 0.7 cm. Positive probe to bone. Excisional debridement down to including subcutaneous tissue, fascia, muscle andbone using a sharp rongeur to the subfifth metatarsal head of the left foot donewithout incident.. Right measurement was 0.3 x 0.3 x 0.4 cm. Postdebridement measurement was 0.5 x 0.5 x 0.7 cm. Musculoskeletal: Pain on palpation to full-thickness wound. No pain with calf compression. Debridement Note Debridement Note Debridement Free Text: Excisional debridement down to including subcutaneous tissue, fascia, muscleand bone using a sharp rongeur to the subfifth metatarsalhead of the left foot done without incident.. Right measurement was 0.3 x 0.3 x0.4 cm. Postdebridement measurement was 0.5 x 0.5 x 0.7 cm. Post-Debridement Measurements and Additional Note: Post-Debridement Measurements/Treatment - Nurse 1 - General Ulcer Assessment Start: 12/24/24 09:23 Freq: Status: Active Protocol: DANITA Activity Type Activity Date Activity User E-sign Co-sign Detail Recorded Client Recorded Date Recorded By Document 12/24/24 09:23 [id number] 12/24/24 09:31 KW Document 12/31/24 11:30 [id number] 12/31/24 11:32 12/24/24 12/31/24 09:23 11:30 - Today's Visit Information Type of service Follow-up Visit Follow-up Visit (Physician/COAL WASHER (Physician/COAL WASHER ) ) Arrival Mode Ambulatory, Ambulatory, Walker Walker Patient Identification Verified (Name & Yes Yes ) Vital Signs Temperature (97.8 F-99.1 F) 96.6 F L 98.6 F Temperature Source Temporal Temporal Pulse Rate (60-100) 72 Pulse Location Monitor Respiratory Rate (12-18) 18 16 Respiratory rate source Observation Observation Oxygen Delivery Method Room Air Room Air Blood Pressure (90/60-120/80) 124/63 H Blood Pressure Mean (mm Hg) 83 Source Monitor Position Semi-Fowlers Blood Pressure Location Left Arm History Since Last Visit- (Skip if this is Patient's initial visit) Have you changed medications since your No No last visit? Any new allergies or adverse reactions No No Had a fall/change in ADL's that may No No increase risk of falls Signs or symptoms of abuse and/or No No neglect since last visit Have you been in the hospital since your No No last visit? Has dressing in place as prescribed Yes No Has compression in place as prescribed N/A No Has offloadiing in place as prescribed N/A N/A Experienced any changes in pain level or No No management Left Footwear Regular Shoe Regular Shoe Right Footwear Regular Shoe Regular Shoe Pain Scale: 0-10 Numeric Is Patient Pain Free? Yes Yes WC - Nurse 1 - General Ulcer Measurement Start: 12/24/24 09:23 Freq: Status: Active Protocol: Activity Type Activity Date Activity User E-sign Co-sign Detail Recorded Client Recorded Date Recorded By Document 12/24/24 09:23 [id number] 12/24/24 09:31 Document 12/31/24 11:30 [id number] 12/31/24 11:32 12/24/24 12/31/24 09:23 11:30 Wound Center Nurse 1 Left Lateral Foot -Current Size (cm) - Length 0.6 0.5 -Current Size (cm) - Width 0.2 0.4 -Current Size (cm) - Depth 0.4 0.2 -Total Square Cm 0.12 0.20 -Date of Last Picture (Recall this 12/24/24 12/31/24 field) -Photo Taken Yes -Tunneling No -Undermining/Tunneling Yes No -Undermining/Tunneling Starts (O'clock 9 ) -Undermining/Tunneling Ends (O'clock) 12 -Maximum Distance (cm) 0.6 -Circular Undermining No -Exudate Amt Medium None Present -Exudate Type Serosanguineous -Wound Margin Thickened Thickened -Granulation Amt Large (67-100%) Small (1-33%) -Granulation Quality [place],Red [place] -Slough/Fibrin No -Necrosis Amt Small (1-33%) -Necrotic Tissue Type Adherent Slough -Texture (Alyce-wound Skin Appearance) Assessed,Callus Assessed,Callus -Moisture (Alyce-wound Skin Appearance) Assessed Assessed, Maceration -Color (Alyce-wound Skin Appearance) Assessed Assessed -Temperature (Alyce-wound Skin No Abnormality No Abnormality Appearance) (Pt Warm) (Pt Warm) -Tenderness on Palpation (Alyce-wound No No Skin Appearance) -Ulcer Cleansing Rinsed/ Rinsed/ Irrigated with Irrigated with Saline Saline -Foul Odor after Cleansing No No -Anesthetic Used 5% Lidocaine 5% Lidocaine Gel Gel Lower Limb Edema Present Yes Left Calf (cm) 38.5 Left Ankle (cm) 27 - Nurse 2 - General Ulcer CM Notes Start: 12/24/24 09:23 Freq: Status: Active Protocol: Activity Type Activity Date Activity User E-sign Co-sign Detail Recorded Client Recorded Date Recorded By Document 12/24/24 09:40 [id number] 12/24/24 09:44 Document 12/31/24 11:38 [id number] 12/31/24 11:47 12/24/24 12/31/24 09:40 11:38 Wound Center Nurse 2 Left Lateral Foot -Time 09:41 11:38 -Correct Patient Yes Yes -Correct Side, Site, Position Yes Yes -Correct Procedure Yes Yes -Procedure Performed Yes Yes -Type of Procedure Debridement Debridement -Clinical Debridement Subcutaneous Bone -Tissue Removed Subcutaneous Non-viable tissue -Post Debridement (cm) - Length 0.8 0.5 -Post Debridement (cm) - Width 0.5 0.5 -Post Debridement (cm) - Depth 0.2 0.7 -Total Square (Post) (cm) 0.40 0.25 -Area of Debridement (cm) - Length 0.8 0.5 -Area of Debridement (cm) - Width 0.5 0.5 -Total Square (Area) (cm) 0.40 0.25 -Tunneling No No -Undermining/Tunneling No No -Circular Undermining No No -Wound/Ulcer Outcome Not Healed Not Healed -Ulcer Cleansing Rinsed/ Rinsed/ Irrigated with Irrigated with Saline Saline -Foul Odor after Cleansing No No -Bioengineered Tissue No No -Bleeding Controlled with Pressure Pressure -Treatment Response Procedure Procedure Tolerated Well Tolerated Well -Offloading No No -Debridement - Subq, 1st 20sq cm Yes -Debridement - Bone, 1st 20sq cm Yes Pain Scale: 0-10 Numeric Is Patient Pain Free? Yes Yes - Nurse 3 - General Ulcer D/C NN Start: 12/24/24 09:23 Freq: Status: Active Protocol: Activity Type Activity Date Activity User E-sign Co-sign Detail Recorded Client Recorded Date Recorded By Document 12/24/24 09:53 KW [id number] 12/24/24 09:54 KW Document 12/31/24 11:52 KW [id number] 12/31/24 11:54 KW Edit Result 12/31/24 11:52 KW (1) [id number] 12/31/24 12:09 RB (1) Left Lateral Foot - Wound Comment(s) => pt appears confused Pt glucose taken and it was 102. pt given ensure and tanker driver immediately picked up pt and took to [facility]. 12/24/24 12/31/24 09:53 11:52 Wound Care Center Nurse 3 Left Lateral Foot -Other Dressing betadine betadine -Primary Dressing Covered/Secured with Dry Gauze,Dry Dry Gauze & Gauze & Roll Roll Gauze, Gauze,Secured Secured with with Tape Tape -Wound Comment(s) pt appears confused Pt glucose taken and it was 102 . pt given ensure and tanker driver immediately picked up pt and took to [facility]. LLE -Tubular Bandage Single Layer Single Layer -Size of Tubigrip Used Size D Size D -Size D ($) 1 1 Pain Scale: 0-10 Numeric Is Patient Pain Free? Yes Yes - Visit Discharge Discharge Condition Stable Stable Ambulatory Status Ambulatory, Walker Walker Transportation Private Auto Medication Reconcilliation completed & No No provided to patient/care provider Clinical Summary of Care Provided Yes Yes Assessment/Plan Assessment/Plan (1) Non-pressure chronic ulcer of other part of left foot with necrosis of bone: CODE(S): L97.524 - Non-pressure chronic ulcer of other part of left foot with necrosis of bone PLAN: Patient was examined and evaluated. All findings were discussed with the patient. All questions were answered to the patient's satisfaction. Excisional debridement down to including subcutaneous tissue, fascia, muscle andbone using a sharp rongeur to the subfifth metatarsal head of the left foot donewithout incident.. Right measurement was 0.3 x 0.3 x 0.4 cm. Postdebridement measurement was 0.5 x 0.5 x 0.7 cm. Left lower extremities were cleaned and patted dry. There is evidence of positive probe to bone during today's visit. At this time a phone call was made to the custodial and I spoke with the patient's nurse to make sure that he is being chaperoned when he is coming to his visit that he was agitated today. We did test his blood sugar and his bloodsugar was 101 mg/dL. I did educate the nurse that if he is having any issues heis to report to the emergency room at [facility] for evaluation admission. I also discussed with the nursing staff that we need to coordinate time to discuss treatment options as well as surgery with the POA as the patient will need partial amputation and removal of the fifth metatarsal head of the left foot. Follow-up at the wound care center with Dr. Forman in 1 week. 12/31/24 1328 Cosigner Signature (if applicable): CC: ~ Signed [facility]06-04-2025 Progress note Author Jaden Forman [facility] Note Date/Time December 24, 2024 10:36 am [facility] [address] [place] [address] Progress Note - Wound Care 12/24/24 1033 MR#: [id number] Acct: [id number] Name: GANESH RAZO Rep #:[id number] : 1935 89 From: Jaden Sabillon PM PCP: Dr. Alberto Mustafa MD Status:RE G [facility] Location: History of Present Illness Date of Service: 12/24/24 Chief Complaint: Full-thickness wound left foot History of Wound: Full-thickness wound left foot Progress of Wound: Stable left foot wound Subjective Subjective Mr. Razo is a 89-year-old male presenting to wound care center today follow-up evaluation of full-thickness wound of the subfifth metatarsal left foot. He hasbeen getting dressing changes at home facility. He did miss his appointment last week due to argument with transportation. Overall he is doing well. Denies trauma. Does mention some drainage in his sock. Denies constitutional symptoms. No other pedal complaints at this time. Objective Data Objective Data Vital Signs: Vital Signs Temp Pulse Resp BP O2 Del Method 96.6 F L 72 18 124/63 H Room Air 12/24/24 09:23 12/24/24 09:23 12/24/24 09:23 12/24/24 09:23 12/24/24 09:23 Oxygen Delivery Method Room Air Physical Exam [...] head of the leftfoot measuring 0.8 x 0.5 x 0.2 cm. There is evidence of hyperkeratotic periwound. Wound base is granular with no sign of infection. No drainage or sign of infection. Excisional debridement down to and including subcutaneous tissue with a number 5mm dermal curette to the subfifth metatarsal full-thickness wound to the left foot without incident. Predebridement measurement was 0.5 x 0.2 x 0.1 cm. Postdebridement measurement is 0.8 x 0.5 x 0.2 cm. Musculoskeletal: No pain on palpation to full-thickness wound. No pain with calf compression. Debridement Note Debridement Note Debridement Free Text: Excisional debridement down to and including subcutaneoustissue with a number 5 mm dermal curette to the subfifth metatarsal full-thickness wound to the left foot without incident. Predebridement measurement was 0.5 x 0.2 x 0.1 cm. Postdebridement measurement is 0.8 x 0.5 x 0.2 cm. Post-Debridement Measurements and Additional Note: Post-Debridement Measurements/Treatment - Nurse 1 - General Ulcer Assessment Start: 12/24/24 09:23 Freq: Status: Active Protocol: WC.LOWEXT Activity Type Activity Date Activity User E-sign Co-sign Detail Recorded Client Recorded Date Recorded By Document 12/24/24 09:23 KW [id number] 12/24/24 09:31 KW 12/24/24 09:23 - Today's Visit Information Type of service Follow-up Visit (Physician/COAL WASHER ) Arrival Mode Ambulatory, Walker Patient Identification Verified (Name & Yes ) Vital Signs Temperature (97.8 F-99.1 F) 96.6 F L Temperature Source Temporal Pulse Rate (60-100) 72 Pulse Location Monitor Respiratory Rate (12-18) 18 Respiratory rate source Observation Oxygen Delivery Method Room Air Blood Pressure (90/60-120/80) 124/63 H Blood Pressure Mean (mm Hg) 83 Source Monitor Position Semi-Fowlers Blood Pressure Location [...] Nurse 1 - General Ulcer Measurement Start: 12/24/24 09:23 Freq: Status: Active Protocol: Activity Type Activity Date Activity User E-sign Co-sign Detail Recorded Client Recorded Date Recorded By Document 12/24/24 09:23 [id number] 12/24/24 09:31 KW 12/24/24 09:23 Wound Center Nurse 1 Left Lateral Foot -Current Size (cm) - Length 0.6 -Current Size (cm) - Width 0.2 -Current Size (cm) - Depth 0.4 -Total Square Cm 0.12 -Date of Last Picture (Recall this 12/24/24 field) -Undermining/Tunneling Yes -Undermining/Tunneling Starts (O'clock 9 ) -Undermining/Tunneling Ends (O'clock) 12 -Maximum Distance (cm) 0.6 -Exudate Amt Medium -Exudate Type Serosanguineous -Wound Margin Thickened -Granulation Amt Large (67-100%) -Granulation Quality [place],Red -Necrosis Amt Small (1-33%) -Necrotic Tissue Type Adherent Slough -Texture (Alyce-wound Skin Appearance) Assessed,Callus -Moisture (Alyce-wound Skin Appearance) Assessed -Color (Alyce-wound Skin Appearance) Assessed -Temperature (Alyce-wound Skin No Abnormality Appearance) (Pt Warm) -Tenderness on Palpation (Alyce-wound No Skin Appearance) -Ulcer Cleansing Rinsed/ Irrigated with Saline -Foul Odor after Cleansing No -Anesthetic Used 5% Lidocaine Gel - Nurse 2 - General Ulcer CM Notes Start: 12/24/24 09:23 Freq: Status: Active Protocol: Activity Type Activity Date Activity User E-sign Co-sign Detail Recorded Client Recorded Date Recorded By Document 12/24/24 09:40 CAYLA [id number] 12/24/24 09:44 CAYLA 12/24/24 09:40 Wound Center Nurse 2 -Time 09:41 -Correct Patient Yes -Correct Side, Site, Position Yes -Correct Procedure Yes -Procedure Performed Yes -Type of Procedure Debridement -Clinical Debridement Subcutaneous -Tissue Removed Subcutaneous -Post Debridement (cm) - Length 0.8 -Post Debridement (cm) - Width 0.5 -Post Debridement (cm) - Depth 0.2 -Total Square (Post) (cm) 0.40 -Area of Debridement (cm) - Length 0.8 -Area of Debridement (cm) - Width 0.5 -Total Square (Area) (cm) 0.40 -Tunneling No [...] 3 - General Ulcer D/C NN Start: 12/24/24 09:23 Freq: Status: Active Protocol: Activity Type Activity Date Activity User E-sign Co-sign Detail Recorded Client Recorded Date Recorded By Document 12/24/24 09:53 RIVAS [id number] 12/24/24 09:54 12/24/24 09:53 Wound Care Center Nurse 3 Left Lateral Foot -Other Dressing betadine -Primary Dressing Covered/Secured with Dry Gauze,Dry Gauze & Roll Gauze,Secured with Tape LLE -Tubular Bandage Single Layer -Size of Tubigrip Used Size D -Size D ($) 1 Pain Scale: 0-10 Numeric Is Patient Pain Free? Yes WC - Visit Discharge Discharge Condition Stable Ambulatory Status Ambulatory, Walker Transportation Private Auto Medication Reconcilliation completed & No provided to patient/care provider Clinical Summary [...] left foot without incident. Predebridement measurement was 0.5 x 0.2 x 0.1 cm. Postdebridement measurement is 0.8 x 0.5 x 0.2 cm. The left foot was clean and patted dry. Betadine paint was applied to the full-thickness wound followed by dry sterile dressing. Patient will be placed in a Tubigrip. Offloading pad wasplaced in the patient's athletic shoe underneath the subfifth metatarsal head left foot. He will continue to ambulate as tolerated with a walker. At this time due to the chronicity of the full-thickness wound I am recommendingsurgical intervention via MIS surgery to the left foot fifth metatarsal to help heal the patient's wound. Due to the patient's inability to take care of himself and is in assisted living at a facility this is the best option to prevent further breakdown once this wound eventually heals. My information/personal contact information was dispensed on orders with the patient tohopefully have the power of flatwork ironer have a call with me and discussed the surgical options that I am recommending. Patient will follow-up in 1 week 12/24/24 1036 <Electronically signed by Jaden Forman DPM> Cosigner Signature (if applicable): CC: ~ Signed [facility] Work Phone: 1(565) 157-534606-04-2025 Progress note [facility] [address] [place] [address] Progress Note - Wound Care 12/24/24 1033 MR#: [id number] Acct: [id number] Name: GANESH RAZO Rep #:[id number] : 1935 89 From: Jaden MONAHAN PCP: Dr. Alberto Mustafa MD Status:RE G RCR Location: History of Present Illness Date of Service: 12/24/24 Chief Complaint: Full-thickness wound left foot History of Wound: Full-thickness wound left foot Progress of Wound: Stable left foot wound Subjective Subjective Mr. Razo is a 89-year-old male presenting to wound care center today follow-up evaluation of full-thickness wound of the subfifth metatarsal left foot. He hasbeen getting dressing changes at home facility. He did miss his appointment last week due to argument with transportation. Overall he is doing well. Denies trauma. Does mention some drainage in his sock. Denies constitutional symptoms. No other pedal complaints at this time. Objective Data Objective Data Vital Signs: Vital Signs Temp Pulse Resp BP O2 Del Method 96.6 F L 72 18 124/63 H Room Air 12/24/24 09:23 12/24/24 09:23 12/24/24 09:23 12/24/24 09:23 12/24/24 09:23 Oxygen Delivery Method Room Air Physical Exam [...] head of the leftfoot measuring 0.8 x 0.5 x 0.2 cm. There is evidence of hyperkeratotic periwound. Wound base is granular with no sign of infection. No drainage or sign of infection. Excisional debridement down to and including subcutaneous tissue with a number 5mm dermal curette to the subfifth metatarsal full-thickness wound to the left foot without incident. Predebridement measurement was 0.5 x 0.2 x 0.1 cm. Postdebridement measurement is 0.8 x 0.5 x 0.2 cm. Musculoskeletal: No pain on palpation to full-thickness wound. No pain with calf compression. Debridement Note Debridement Note Debridement Free Text: Excisional debridement down to and including subcutaneoustissue with a number 5 mm dermal curette to the subfifth metatarsal full-thickness wound to the left foot without incident. Predebridement measurement was 0.5 x 0.2 x 0.1 cm. Postdebridement measurement is 0.8 x 0.5 x 0.2 cm. Post-Debridement Measurements and Additional Note: Post-Debridement Measurements/Treatment - Nurse 1 - General Ulcer Assessment Start: 12/24/24 09:23 Freq: Status: Active Protocol: DANITA Activity Type Activity Date Activity User E-sign Co-sign Detail Recorded Client Recorded Date Recorded By Document 12/24/24 09:23 KW [id number] 12/24/24 09:31 12/24/24 09:23 - Today's Visit Information Type of service Follow-up Visit (Physician/COAL WASHER ) Arrival Mode Ambulatory, Walker Patient Identification Verified (Name & Yes ) Vital Signs Temperature (97.8 F-99.1 F) 96.6 F L Temperature Source Temporal Pulse Rate (60-100) 72 Pulse Location Monitor Respiratory Rate (12-18) 18 Respiratory rate source Observation Oxygen Delivery Method Room Air Blood Pressure (90/60-120/80) 124/63 H Blood Pressure Mean (mm Hg) 83 Source Monitor Position Semi-Fowlers Blood Pressure Location [...] 0-10 Numeric Is Patient Pain Free? Yes [facility] Nurse 1 - General Ulcer Measurement Start: 12/24/24 09:23 Freq: Status: Active Protocol: Activity Type Activity Date Activity User E-sign Co-sign Detail Recorded Client Recorded Date Recorded By Document 12/24/24 09:23 KW [id number] 12/24/24 09:31 12/24/24 09:23 Wound Center Nurse 1 Left Lateral Foot -Current Size (cm) - Length 0.6 -Current Size (cm) - Width 0.2 -Current Size (cm) - Depth 0.4 -Total Square Cm 0.12 -Date of Last Picture (Recall this 12/24/24 field) -Undermining/Tunneling Yes -Undermining/Tunneling Starts (O'clock 9 ) -Undermining/Tunneling Ends (O'clock) 12 -Maximum Distance (cm) 0.6 -Exudate Amt Medium -Exudate Type Serosanguineous -Wound Margin Thickened -Granulation Amt Large (67-100%) -Granulation Quality [place],Red -Necrosis Amt Small (1-33%) -Necrotic Tissue Type Adherent Slough -Texture (Alyce-wound Skin Appearance) Assessed,Callus -Moisture (Alyce-wound Skin Appearance) Assessed -Color (Alyce-wound Skin Appearance) Assessed -Temperature (Alyce-wound Skin No Abnormality Appearance) (Pt Warm) -Tenderness on Palpation (Alyce-wound No Skin Appearance) -Ulcer Cleansing Rinsed/ Irrigated with Saline -Foul Odor after Cleansing No -Anesthetic Used 5% Lidocaine Gel WC - Nurse 2 - General Ulcer CM Notes Start: 12/24/24 09:23 Freq: Status: Active Protocol: Activity Type Activity Date Activity User E-sign Co-sign Detail Recorded Client Recorded Date Recorded By Document 12/24/24 09:40 CAYLA [id number] 12/24/24 09:44 CAYLA 12/24/24 09:40 Wound Center Nurse 2 -Time 09:41 -Correct Patient Yes -Correct Side, Site, Position Yes -Correct Procedure Yes -Procedure Performed Yes -Type of Procedure Debridement -Clinical Debridement Subcutaneous -Tissue Removed Subcutaneous -Post Debridement (cm) - Length 0.8 -Post Debridement (cm) - Width 0.5 -Post Debridement (cm) - Depth 0.2 -Total Square (Post) (cm) 0.40 -Area of Debridement (cm) - Length 0.8 -Area of Debridement (cm) - Width 0.5 -Total Square (Area) (cm) 0.40 -Tunneling No -Undermining/Tunneling No -Circular Undermining No -Wound/Ulcer Outcome Not Healed -Ulcer Cleansing Rinsed/ Irrigated with Saline -Foul Odor after Cleansing No -Bioengineered Tissue No -Bleeding Controlled with Pressure -Treatment Response Procedure Tolerated Well -Offloading No -Debridement - Subq, 1st 20sq cm Yes Pain Scale: 0-10 Numeric Is Patient Pain Free? Yes WC - Nurse 3 - General Ulcer D/C NN Start: 12/24/24 09:23 Freq: Status: Active Protocol: Activity Type Activity Date Activity User E-sign Co-sign Detail Recorded Client Recorded Date Recorded By Document 12/24/24 09:53 KW [id number] 12/24/24 09:54 KW 12/24/24 09:53 Wound Care Center Nurse 3 Left Lateral Foot -Other Dressing betadine -Primary Dressing Covered/Secured with Dry Gauze,Dry Gauze & Roll Gauze,Secured with Tape LLE -Tubular Bandage Single Layer -Size of Tubigrip Used Size D -Size D ($) 1 Pain Scale: 0-10 Numeric Is Patient Pain Free? Yes WC - Visit Discharge Discharge Condition Stable Ambulatory Status Ambulatory, Walker Transportation Private Auto Medication Reconcilliation completed & No provided to patient/care provider Clinical Summary [...] left foot without incident. Predebridement measurement was 0.5 x 0.2 x 0.1 cm. Postdebridement measurement is 0.8 x 0.5 x 0.2 cm. The left foot was clean and patted dry. Betadine paint was applied to the full-thickness wound followed by dry sterile dressing. Patient will be placed in a Tubigrip. Offloading pad wasplaced in the patient's athletic shoe underneath the subfifth metatarsal head left foot. He will continue to ambulate as tolerated with a walker. At this time due to the chronicity of the full-thickness wound I am recommendingsurgical intervention via MIS surgery to the left foot fifth metatarsal to help heal the patient's wound. Due to the patient's inability to take care of himself and is in assisted living at a facility this is the best op tion to prevent further breakdown once this wound eventually heals. My information/personal contactinformation was dispensed on orders with the patient tohopefully have the power of flatwork ironer have a call with me and discussed the surgical options that I am recommending. Patient will follow-up in 1 week 12/24/24 1036 Cosigner Signature (if applicable): CC: ~ Signed [facility]05-14-2025 Progress note Author Jaden Forman [facility] Note Date/Time December 03, 2024 2:36p m [facility] [address] [place] [address] Progress Note - Wound Care 12/03/24 1433 MR#: [id number] Acct: [id number] Name: GANESH RAZO Rep #:[id number] : 1935 89 From: Jaden Sabillon PM PCP: Dr. Alberto [...] Date Recorded By Document 11/26/24 13:16 KW [id number] 11/26/24 13:25 KW Document 12/03/24 13:22 IL [id number] 12/03/24 13:29 IL 11/26/24 12/03/24 13:16 13:22 - Today's Visit Information Type of service Follow-up Visit Follow-up Visit (Physician/COAL WASHER (Physician/COAL WASHER ) ) Arrival Mode Ambulatory, Ambulatory, Walker [...] Date Recorded By Document 11/26/24 13:16 KW [id number] 11/26/24 13:25 KW Document 12/03/24 13:22 MT [id number] 12/03/24 13:29 MT 11/26/24 12/03/24 13:16 13:22 [...] Large (67-100%) Medium (34-66%) -Granulation Quality Red Pale,[place] -Necrosis Amt Medium (34-66%) -Necrotic Tissue Type [...] Recorded Date Recorded By Document 11/26/24 13:30 [id number] 11/26/24 13:36 Document 12/03/24 13:52 [id number] 12/03/24 13:54 11/26/24 12/03/24 13:30 13:52 Wound [...] Recorded Date Recorded By Document 11/26/24 13:51 IL [id number] 11/26/24 13:53 IL Document 12/03/24 14:07 IL [id number] 12/03/24 14:11 IL 11/26/24 12/03/24 13:51 14:07 Wound Care Center [...] Patient will follow-up in 1 week 12/03/24 8102 <Electronically signed by Jaden Forman DPM> Cosigner Signature (if applicable): CC: ~ Signed [facility] Work Phone: 1(988) 137-675905-14-2025 Progress note [facility] [address] [place] [address] Progress Note - Wound Care 12/03/24 1433 MR#: [id number] Acct: [id number] Name: GANESH RAZO Rep #:[id number] : 1935 89 From: Jaden MONAHAN PCP: [...] Date Recorded By Document 11/26/24 13:16 KW [id number] 11/26/24 13:25 KW Document 12/03/24 13:22 MT [id number] 12/03/24 13:29 MT 11/26/24 12/03/24 13:16 13:22 - Today's Visit Information Type of service Follow-up Visit Follow-up Visit (Physician/COAL WASHER (Physician/COAL WASHER ) ) Arrival Mode Ambulatory, Ambulatory, Walker [...] Date Recorded By Document 11/26/24 13:16 KW [id number] 11/26/24 13:25 Document 12/03/24 13:22 IL [id number] 12/03/24 13:29 IL 11/26/24 12/03/24 13:16 13:22 Wound Center Nurse [...] Large (67-100%) Medium (34-66%) -Granulation Quality Red Pale,[place] -Necrosis Amt Medium (34-66%) -Necrotic Tissue Type [...] Recorded Date Recorded By Document 11/26/24 13:30 [id number] 11/26/24 13:36 Document 12/03/24 13:52 [id number] 12/03/24 13:54 11/26/24 12/03/24 13:30 13:52 Wound [...] Recorded Date Recorded By Document 11/26/24 13:51 IL [id number] 11/26/24 13:53 IL Document 12/03/24 14:07 IL [id number] 12/03/24 14:11 IL 11/26/24 12/03/24 13:51 14:07 Wound Care Center [...] Cosigner Signature (if applicable): CC: ~ Signed [facility]05-07-2025 Progress note Author Jaden Forman [facility] Note Date/Time November 26, 2024 1:47pm [facility] [address] [place] [address] Progress Note - Wound Care 11/26/24 1344 MR#: [id number] Acct: [id number] Name: GANESH RAZO Rep #:[id number] : 1935 88 From: Jaden Sabillon PM PCP: Dr. Alberto Mustafa MD Status:RE G RCR Location: History of Present Illness Date of Service: 11/26/24 Chief Complaint: Full-thickness wound left foot History of Wound: Full-thickness wound left foot Progress of Wound: Stable left foot wound Subjective Subjective Mr. Razo is a 88-year-old male presenting to wound [...] Date Recorded By Document 11/26/24 13:16 KW [id number] 11/26/24 13:25 11/26/24 13:16 WC - Today's Visit Information Type of service Follow-up Visit (Physician/COAL WASHER ) Arrival Mode Ambulatory, Walker Patient Identification [...] Date Recorded By Document 11/26/24 13:16 RIVAS [id number] 11/26/24 13:25 KW 11/26/24 13:16 Wound Center [...] Date Recorded By Document 11/26/24 13:30 CAYLA [id number] 11/26/24 13:36 CAYLA 11/26/24 13:30 Wound Center [...] Cosigner Signature (if applicable): CC: ~ Signed [facility] Work Phone: 1(391) 574-289205-07-2025 Progress note [facility] [address] [place] [address] Progress Note - Wound Care 11/26/24 1344 MR#: [id number] Acct: [id number] Name: GANESH RAZO Rep #:[id number] : 1935 88 From: Jaden MONAHAN PCP: Dr. Alberto Mustafa MD Status:RE G R Location: History of Present Illness Date of Service: 11/26/24 Chief Complaint: Full-thickness wound left foot History of Wound: Full-thickness wound left foot Progress of Wound: Stable left foot wound Subjective Subjective Mr. Razo is a 88-year-old male presenting to wound [...] Start: 11/26/24 13:16 Freq: Status: Active Protocol: LOWEXT Activity Type Activity Date Activity User E-sign Co-sign Detail Recorded Client Recorded Date Recorded By Document 11/26/24 13:16 KW [id number] 11/26/24 13:25 KW 11/26/24 13:16 - Today's Visit Information Type of service Follow-up Visit (Physician/COAL WASHER ) Arrival Mode Ambulatory, Walker Patient Identification [...] Recorded Date Recorded By Document 11/26/24 13:16 [id number] 11/26/24 13:25 KW 11/26/24 13:16 Wound Center [...] Date Recorded By Document 11/26/24 13:30 CAYLA [id number] 11/26/24 13:36 CAYLA 11/26/24 13:30 Wound Center [...] Cosigner Signature (if applicable): CC: ~ Signed [facility]03-29-2025 Progress note Author Jaden Forman [facility] Note Date/Time October 18, 2024 8:2 7pm [facility] [address] [place] [id number] Progress Note - Wound Care 10/18/242022 MR#: [id number] Acct: [id number] Name: GANESH RAZO Rep #:[id number] : 1935 88 From: Jaden MONAHAN PCP: Dr. Alberto Mustafa MD Status:RE G RCR Location: History of Present Illness Date of Service: 10/18/24 Chief Complaint: Full-thickness wound left foot History of Wound: Full-thickness wound left foot Progress of Wound: Stable left foot wound Subjective Subjective Mr. Razo is a 88-year-old male presenting the wound [...] Date Recorded By Document 10/08/24 11:57 MT [id number] 10/08/24 12:07 MT Document 10/15/24 12:16 KW [id number] 10/15/24 12:20 KW 10/08/24 10/15/24 11:57 12:16 - Today's Visit Information Type of service Initial Visit Follow-up Visit (Physician/COAL WASHER ) Arrival Mode Ambulatory, Ambulatory, Walker Walker [...] Patient Pain Free? Yes Yes - Nurse 1 - General Ulcer Measurement Start: 10/08/24 11:57 Freq: Status: Active Protocol: Activity Type Activity Date Activity User E-sign Co-sign Detail Recorded Client Recorded Date Recorded By Document 10/08/24 11:57 IL [id number] 10/08/24 12:07 IL Document 10/15/24 12:16 KW [id number] 10/15/24 12:20 KW 10/08/24 10/15/24 11:57 12:16 [...] Amt Medium (34-66%) Small (1-33%) -Granulation Quality Pale,[place] -Necrosis Amt Medium (34-66%) Small (1-33%) -Necrotic [...] Recorded Date Recorded By Document 10/08/24 12:21 [id number] 10/08/24 12:25 Document 10/15/24 12:53 [id number] 10/15/24 12:55 10/08/24 10/15/24 12:21 12:53 Wound [...] 0000 10/08/24 15:07 Document 10/15/24 13:07 KW [id number] 10/15/24 13:07 KW 10/08/24 10/15/24 15:07 13:07 [...] Cosigner Signature (if applicable): CC: ~ Signed [facility] Work Phone: 1(639) 920-515703-29-2025 Progress note [facility] [address] [place] [address] Progress Note - Wound Care 10/18/242022 MR#: [id number] Acct: [id number] Name: GANESH RAZO Rep #:[id number] : 1935 88 From: Jaden MONAHAN PCP: Dr. Alberto Mustafa MD Status:RE G RCR Location: History of Present Illness Date of Service: 10/18/24 Chief Complaint: Full-thickness wound left foot History of Wound: Full-thickness wound left foot Progress of Wound: Stable left foot wound Subjective Subjective Mr. Razo is a 88-year-old male presenting the wound [...] Start: 10/08/24 11:57 Freq: Status: Active Protocol: YUDELKA.TERRI Activity Type Activity Date Activity User E-sign Co-sign Detail Recorded Client Recorded Date Recorded By Document 10/08/24 11:57 MT [id number] 10/08/24 12:07 MT Document 10/15/24 12:16 KW [id number] 10/15/24 12:20 KW 10/08/24 10/15/24 11:57 12:16 - Today's Visit Information Type of service Initial Visit Follow-up Visit (Physician/COAL WASHER ) Arrival Mode Ambulatory, Ambulatory, Walker Walker [...] Date Recorded By Document 10/08/24 11:57 MT [id number] 10/08/24 12:07 MT Document 10/15/24 12:16 KW [id number] 10/15/24 12:20 KW 10/08/24 10/15/24 11:57 12:16 [...] Amt Medium (34-66%) Small (1-33%) -Granulation Quality Pale,[place] -Necrosis Amt Medium (34-66%) Small (1-33%) -Necrotic [...] Recorded Date Recorded By Document 10/08/24 12:21 [id number] 10/08/24 12:25 Document 10/15/24 12:53 [id number] 10/15/24 12:55 10/08/24 10/15/24 12:21 12:53 Wound [...] Pain Free? Yes Yes WC - Nurse 3 - General Ulcer D/C NN Start: 10/08/24 11:57 Freq: Status: Active Protocol: Activity Type Activity Date Activity User E-sign Co-sign Detail Recorded Client Recorded Date Recorded By Document 10/08/24 15:07 JF 0000 10/08/24 15:07 JF Document 10/15/24 13:07 KW [id number] 10/15/24 13:07 KW 10/08/24 10/15/24 15:07 13:07 [...] Cosigner Signature (if applicable): CC: ~ Signed [facility]03-26-2025 Evaluation note* Diagnosis Onset Date Resolution Status Admit Date Non-pressure chronic ulcer o f other part of left foot with fat layer exposed chronic October 15, 2024 12:15pm Non-pressure chronic ulcer o f other part of left foot with fat layer exposed chronic December 03, 2024 1 :15pm Non-pressure chronic ulcer o f other part of left foot with fat layer exposed chronic December 31, 2024 11:00am 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 December 31, 2024 11:00am Acute kidney injury acute January 01, 2025 11:52pm Altered mental status acute Dec 11:52pm Cellulitis of left foot acute J une 2024 11:52pm Fever acute January 01 11:52pm Hyperglycemia acute January 01, 2025 11:52pm Open wound of left foot acute J une 2024 11:52pm Sepsis acute January 01 11:52pm Tachycardia acute January 01 11:52pm Toxic metabolic encephalopathy acute January 01, 2025 11:52pm 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 Alberto Mustafa MD Status:RE G RCR Location: History of Present Illness Date of Service: 10/09/24 Chief Complaint: Full-thickness wound left foot History of Wound: Full-thickness wound left foot Progress of Wound: Mr Razo is a 88-year-old male presenting to the [...] was seen by emergency room department at [facility] and evaluated and discharged. He states the wound has been present but does not know how long. He denies any trauma to the area. Denies constitutional symptoms. No other pedal complaints at this time. [facility] Medical History Agitation due to dementia [...] Recorded Date Recorded By Document 10/08/24 11:57 [place] [id number] 10/08/24 12:07 [place] 10/08/24 11:57 - Today's Visit Information Type [...] Recorded Date Recorded By Document 10/08/24 11:57 IL [id number] 10/08/24 12:07 [place] 10/08/24 11:57 Wound Center Nurse 1 Left [...] Under -Granulation Amt Medium (34-66%) -Granulation Quality Pale,[place] -Necrosis Amt Medium (34-66%) -Necrotic Tissue Type [...] Recorded Date Recorded By Document 10/08/24 12:21 [id number] 10/08/24 12:25 10/08/24 12:21 Wound Center Nurse [...] Document 10/08/24 15:07 JF 0000 10/08/24 15:07 10/08/24 15:07 Wound Care [...] will continue weekly wound care here at [facility]. Patient was grateful for his care. He will continue to ambulate as tolerated with a walker. Patient will follow-up in 1 week 10/09/24 0671 <Electronically signed by Jaden Forman DPM> Cosigner Signature (if applicable): CC: ~ Signed [facility] Work Phone: 1(890) 688-583403-20-2025 History and physical note [facility] [address] [place] [id number] H&P Exam - Wound Care 10/09/24 1419 MR#: [id number] Acct: [id number] Name: GANESH RAZO Rep #:[id number] : 1935 88 From: Jaden MONAHAN PCP: Dr. Alberto Mustafa MD Status:RE G RCR Location: History of Present Illness Date of Service: 10/09/24 Chief Complaint: Full-thickness wound left foot History of Wound: Full-thickness wound left foot Progress of Wound: Mr Razo is a 88-year-old male presenting to the [...] was seen by emergency room department at [facility] and evaluated and discharged. He states the wound has been present but does not know how long. He denies any trauma to the area. Denies constitutional symptoms. No other pedal complaints at this time. [facility] Medical History Agitation due to dementia [...] Recorded Date Recorded By Document 10/08/24 11:57 IL [id number] 10/08/24 12:07 IL 10/08/24 11:57 WC - Today's Visit Information [...] Recorded Date Recorded By Document 10/08/24 11:57 IL [id number] 10/08/24 12:07 [place] 10/08/24 11:57 Wound Center Nurse 1 Left [...] Under -Granulation Amt Medium (34-66%) -Granulation Quality Pale,[place] -Necrosis Amt Medium (34-66%) -Necrotic Tissue Type [...] Recorded Date Recorded By Document 10/08/24 12:21 CAYLA [id number] 10/08/24 12:25 CAYLA 10/08/24 12:21 Wound Center Nurse 2 Left [...] andwill continue weekly wound care here at [facility] [place]. Patient was grateful for his care. He will continue to ambulate as tolerated with a walker. 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 September 16, 2024 7:21pm Closed head injury inactive 2024 7:21pm Dementia inactive September 16, 2024 7:21pm Fall inactive September 16, 2024 7:21pm Hypothyroidism inactive August 242024 7:21pm Non-pressure chronic ulcer o f other part of left foot with fat layer exposed chronic October 15 12:15pm [facility] Work Phone: 1(462) 956-267502-25-2025 Evaluation note* Diagnosis Onset Date Resolution Status [...] layer exposed chronic December 03, 2024 1:15pm [facility] Work Phone: 1(413) 450-980502-25-2025 Evaluation note* Diagnosis Onset Date Resolution Status [...] of bone chronic December 31, 2024 11:00am [facility] Work Phone: 1(103) 882-621402-25-2025 Evaluation note* Diagnosis Onset Date Resolution Status [...] of bone chronic December 31, 2024 11:00am Acute kidney injury acute January 01, 2025 11:52pm Fever acute January 01 11:52pm Hyperglycemia acute January 01, 2025 11:52pm Open wound of left foot acute J une 2024 11:52pm Tachycardia acute January 01 11:52pm Toxic metabolic encephalopathy acute January 01, 2025 11:52pm [facility] Work Phone: 1(117) 135-230202-25-2025 Evaluation note* Diagnosis Onset Date Resolution Status [...] of bone chronic December 31, 2024 11:00am Acute kidney injury acute January 01, 2025 11:52pm Altered mental status acute Dec 11:52pm Cellulitis of left foot acute J une 2024 11:52pm Fever acute January 01 11:52pm Hyperglycemia acute January 01, 2025 11:52pm MSSA bacteremia acute December 11:52pm Open wound of left foot acute J 2024 11:52pm Osteomyelitis of left foot acute January 01, 2025 11:52pm Sepsis acute January 01 11:52pm Tachycardia acute January 01 11:52pm Toxic metabolic encephalopathy acute January 01, 2025 11:52pm 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 January 01, 2025 11:52pm [facility] Work Phone: Reason for referral (narrative)No reason for referral information availableWC[facility] Work Phone: Chief Complaint and Reason for Visit Chief Complaint Admit Date WORSENING DEMENTIA AND RECENT FALL Febru 2024 7:21pm WORSENING DEMENTIA AND RECENT FALL Febru 2024 4:02pm WORSENING DEMENTIA AND RECENT FALL Febru 2024 6:37pm WORSENING DEMENTIA AND RECENT FALL Febru 2024 2:47pm LABWORK September 22, 2024 5:00 am ASSISTED LAB WORK September 24, 2024 5: 00am [...] 2:47pm LABWORK September 22, 2024 5:00 am ASSISTED LAB WORK September 24, 2024 5: 00am [...] 2:47pm LABWORK September 22, 2024 5:00 am ASSISTED LAB WORK September 24, 2024 5: 00am WOUND- LEFT FOOT October 15, 2024 12: 15pm WOUND- LEFT FOOT October 22, 2024 12:4 2pm LABWORK October 27, 2024 5:00 am ASSISTED LAB WORK November 05, 2024 5 :00am [...] 2:47pm LABWORK September 22, 2024 5:00 am ASSISTED LAB WORK September 24, 2024 5: 00am WOUND- LEFT FOOT October 15, 2024 12: 15pm WOUND- LEFT FOOT October 22, 2024 12:4 2pm LABWORK October 27, 2024 5:00 am ASSISTED LAB WORK November 05, 2024 5 :00am LABWORK November 26, 2024 5:00am WOUND- LEFT FOOT December 03, 2024 1:15p m Chief Complaint Admit Date WORSENING DEMENTIA AND RECENT FALL Febru 2024 7:21pm WORSENING DEMENTIA AND RECENT FALL Febru song 2024 4:02pm WORSENING DEMENTIA AND RECENT FALL Febru 2024 6:37pm WORSENING DEMENTIA AND RECENT FALL Febru song2024 2:47pm LABWORK September 22, 2024 5:00 am ASSISTED LAB WORK September 24, 2024 5: 00am WOUND- LEFT FOOT October 15, 2024 12: 15pm WOUND- LEFT FOOT October 22, 2024 12:4 2pm LABWORK October 27, 2024 5:00 am ASSISTED LAB WORK November 05, 2024 5 :00am ASSISTED LAB WORK November 24, 2024 5:00 am LABWORK November 26, 2024 5:00am WOUND- LEFT FOOT December 03, 2024 1:15p m ASSISTED LAB WORK December 16, 2024 4:0 0am ASSISTED LAB WORK December 17, 2024 5:0 0am [...] necrosis of bone December 31, 2024 11:00am Chief Complaint Admit Date WORSENING DEMENTIA AND RECENT FALL Febru 2024 7:21pm WORSENING DEMENTIA AND RECENT FALL Febru 2024 4:02pm WORSENING DEMENTIA AND RECENT FALL Febru 2024 6:37pm WORSENING DEMENTIA AND RECENT FALL Febru song 2024 2:47pm LABWORK September 22, 2024 5:00 am ASSISTED LAB WORK September 24, 2024 5: 00am WOUND- LEFT FOOT October 15, 2024 12: 15pm WOUND- LEFT FOOT October 22, 2024 12:4 2pm LABWORK October 27, 2024 5:00 am ASSISTED LAB WORK November 05, 2024 5 :00am ASSISTED LAB WORK November 24, 2024 5:00 am LABWORK November 26, 2024 5:00am WOUND- LEFT FOOT December 03, 2024 1:15p m ASSISTED LAB WORK December 16, 2024 4:0 0am ASSISTED LAB WORK December 17, 2024 5:0 0am WOUND- LEFT FOOT December 31, 2024 11:0 0am FALL December 31, 2024 3:45 pm INFECTED LEFT FOOT WOUND/ALTERED MS January 01, 2025 11:52pm INFECTED LEFT FOOT WOUND/ALTERED MS January 02, 2025 1:46am Reason for Visit Admit Date Agitation due [...] necrosis of bone December 31, 2024 11:00am Acute kidney injury January 01, 2025 11:5 2pm Fever January 01, 2025 11:5 2pm Hyperglycemia January 01, 2025 11:5 2pm Open wound of left foot January 01, 2025 11:52pm Tachycardia January 01, 2025 11:5 2pm Toxic metabolic encephalopathy December 11:52pm Chief Complaint Admit Date WORSENING DEMENTIA AND RECENT FALL Febru 2024 7:21pm WORSENING DEMENTIA AND RECENT FALL Febru 2024 4:02pm WORSENING DEMENTIA AND RECENT FALL Febru 2024 6:37pm WORSENING DEMENTIA AND RECENT FALL Febru 2024 2:47pm LABWORK September 22, 2024 5:00 am ASSISTED LAB WORK September 24, 2024 5: 00am WOUND- LEFT FOOT October 15, 2024 12: 15pm WOUND- LEFT FOOT October 22, 2024 12:4 2pm LABWORK October 27, 2024 5:00 am ASSISTED LAB WORK November 05, 2024 5 :00am ASSISTED LAB WORK November 24, 2024 5:00 am LABWORK November 26, 2024 5:00am WOUND- LEFT FOOT December 03, 2024 1:15p m ASSISTED LAB WORK December 16, 2024 4:0 0am ASSISTED LAB WORK December 17, 2024 5:0 0am WOUND- LEFT FOOT December 31, 2024 11:0 0am FALL December 31, 2024 3:45 pm INFECTED LEFT FOOT WOUND/ALTERED MS January 01, 2025 11:52pm INFECTED LEFT FOOT WOUND/ALTERED MS January 02, 2025 1:46am INFECTED LEFT FOOT WOUND/ALTERED MS January 02, 2025 5:48am Reason for Visit Admit Date Agitation due [...] necrosis of bone December 31, 2024 11:00am Acute kidney injury January 01, 2025 11:5 2pm Altered mental status January 01, 2025 11 :52pm Cellulitis of left foot January 01, 2025 11:52pm Fever January 01, 2025 11:5 2pm Hyperglycemia January 01, 2025 11:5 2pm MSSA bacteremia January 01, 2025 11:5 2pm Open wound of left foot January 01, 2025 11:52pm Osteomyelitis of left foot January 01 11:52pm Sepsis January 01, 2025 11:5 2pm Tachycardia January 01, 2025 11:5 2pm Toxic metabolic encephalopathy December 11:52pm 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 01, 2025 11:52pm Chief Complaint Admit Date WORSENING DEMENTIA AND RECENT FALL Febru song 2024 7:21pm WORSENING DEMENTIA AND RECENT FALL Febru song 2024 4:02pm WORSENING DEMENTIA AND RECENT FALL Febru song 2024 6:37pm WORSENING DEMENTIA AND RECENT FALL Febru song 2024 2:47pm LABWORK September 22, 2024 5:00 am ASSISTED LAB WORK September 24, 2024 5: 00am WOUND- LEFT FOOT October 15, 2024 12: 15pm WOUND- LEFT FOOT October 22, 2024 12:4 2pm LABWORK October 27, 2024 5:00 am ASSISTED LAB WORK November 05, 2024 5 :00am ASSISTED LAB WORK November 24, 2024 5:00 am LABWORK November 26, 2024 5:00am WOUND- LEFT FOOT December 03, 2024 1:15p m WOUND- LEFT FOOT December 24, 2024 9:17a m Chief Complaint Admit Date WORSENING DEMENTIA AND RECENT FALL Febru song 2024 7:21pm WORSENING DEMENTIA AND RECENT FALL Febru song 2024 4:02pm WORSENING DEMENTIA AND RECENT FALL Febru song 2024 6:37pm WORSENING DEMENTIA AND RECENT FALL Febru song 2024 2:47pm LABWORK September 22, 2024 5:00 am ASSISTED LAB WORK September 24, 2024 5: 00am WOUND- LEFT FOOT October 15, 2024 12: 15pm WOUND- LEFT FOOT October 22, 2024 12:4 2pm LABWORK October 27, 2024 5:00 am ASSISTED LAB WORK November 05, 2024 5 :00am ASSISTED LAB WORK November 24, 2024 5:00 am LABWORK November 26, 2024 5:00am WOUND- LEFT FOOT December 03, 2024 1:15p m ASSISTED LAB WORK December 16, 2024 4:0 0am ASSISTED LAB WORK December 17, 2024 5:0 0am WOUND- LEFT FOOT December 31, 2024 11:0 0am FALL December 31, 2024 3:45 pm INFECTED LEFT FOOT WOUND/ALTERED MS January 01, 2025 11:52pm INFECTED LEFT FOOT WOUND/ALTERED MS January 02, 2025 1:46am INFECTED LEFT FOOT WOUND/ALTERED MS January 02, 2025 5:48am INFECTED LEFT FOOT WOUND/ALTERED MS January 03, 2025 1:34pm INFECTED LEFT FOOT WOUND/ALTERED MS January 04, 2025 12:18pm INFECTED LEFT FOOT WOUND/ALTERED MS January 05, 2025 8:53am INFECTED LEFT FOOT WOUND/ALTERED MS January 06, 2025 9:10am INFECTED LEFT FOOT WOUND/ALTERED MS January 07, 2025 9:19am INFECTED LEFT FOOT WOUND/ALTERED MS January 08, 2025 11:03am Chief Complaint Admit Date LABWORK September 22, 2024 5:00 am ASSISTED LAB WORK September 24, 2024 5: 00am WOUND- LEFT FOOT October 15, 2024 12: 15pm WOUND- LEFT FOOT October 22, 2024 12:4 2pm LABWORK October 27, 2024 5:00 am ASSISTED LAB WORK November 05, 2024 5 :00am ASSISTED LAB WORK November 24, 2024 5:00 am LABWORK November 26, 2024 5:00am WOUND- LEFT FOOT December 03, 2024 1:15p m ASSISTED LAB WORK December 16, 2024 4:0 0am ASSISTED LAB WORK December 17, 2024 5:0 0am WOUND- LEFT FOOT December 31, 2024 11:0 0am FALL December 31, 2024 3:45 pm INFECTED LEFT FOOT WOUND/ALTERED MS January 01, 2025 11:52pm INFECTED LEFT FOOT WOUND/ALTERED MS January 02, 2025 1:46am INFECTED LEFT FOOT WOUND/ALTERED MS January 02, 2025 5:48am INFECTED LEFT FOOT WOUND/ALTERED MS January 03, 2025 1:34pm INFECTED LEFT FOOT WOUND/ALTERED MS January 04, 2025 12:18pm INFECTED LEFT FOOT WOUND/ALTERED MS January 05, 2025 8:53am INFECTED LEFT FOOT WOUND/ALTERED MS January 06, 2025 9:10am INFECTED LEFT FOOT WOUND/ALTERED MS January 07, 2025 9:19am INFECTED LEFT FOOT WOUND/ALTERED MS January 08, 2025 11:03am Reason for Visit Admit Date Non-pressure chronic ulcer o f other part [...] necrosis of bone December 31, 2024 11:00am Acute kidney injury January 01, 2025 11:5 2pm Altered mental status January 01, 2025 11 :52pm Cellulitis of left foot January 01, 2025 11:52pm Fever January 01, 2025 11:5 2pm Hyperglycemia January 01, 2025 11:5 2pm Open wound of left foot January 01, 2025 11:52pm Sepsis January 01, 2025 11:5 2pm Tachycardia January 01, 2025 11:5 2pm Toxic metabolic encephalopathy December 11:52pm 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 No September 16, 2024 9:52pm Advance Directive Response Recorded Date/ Time Living Will No September 16, 025 9:52pm Do you have a Healthcare Power of Molasses And Caramel Operator? No September 16, 2024 9:52pm Do you have a Healthcare Power of Molasses And Caramel Operator? Yes January 01, 2025 3:16pm Advance Directive Response Recorded Date/ Time Living Will No September 16, 025 9:52pm Do you have a Healthcare Power of Molasses And Caramel Operator? No September 16, 2024 9:52pm Do you have a Healthcare Power of Molasses And Caramel Operator? Yes January 02, 2025 3:40am Advance Directive Response Recorded Date/ Time Do you have a Healthcare Power of Molasses And Caramel Operator? Yes January 02, 2025 3:40am Summary Purpose Family History No Family History [...] End: September 19, 2024 Dr. Maliha Youngblood DO Emergency Provider Active S tart: September 16, 2024 End: September 19, 2024 Dr. Altaf Meeks DO Admit Provider Active Start: September 16, 2024 End: September 19, 2024 Dr. Altaf Meeks DO Other Provider Active Start: September 16, 2024 End: September 19, 2024 Dr. Demetrius Nash DO Attending Provider Active Start: September 16, 2024 [...] Start: September 17, 2024 Dr. Maliha Youngblood DO Emergency Provider Active S tart: September 17, 2024 Dr. Altaf Meeks DO Admit Provider Active Start: September 17, 2024 Dr. Altaf Meeks , Other Provider Active Start: September 17, 2024 Dr. Demetrius Nash , Attending Provider Active Start: September 17, 2024 Dr. Demetrius Nash , DO Other Provider Active S tart: September 17, 2024 Team Status: Active Member Role Status Dates Dr. Alberto Mustafa MD Primary Care Provider Active Start: September 18, 2024 Dr. Maliha Youngblood , Emergency Provider Active S tart: September 18, 2024 Dr. Altaf Meeks , DO Admit Provider Active Start: September 18, 2024 Dr. Altaf Meeks , DO Other Provider Active Start: September 18, 2024 Dr. Demetrius Nash , Attending Provider Active Start: September 18, 2024 Dr. Demetrius Nash , Other Provider Active S tart: September 18, 2024 Team Status: Active Member Role Status Dates Dr. Alberto Mustafa MD Primary Care Provider Active Start: September 19, 2024 Dr. Maliha Youngblood , DO Emergency Provider Active S tart: September 19, 2024 Dr. Altaf Meeks , DO Admit Provider Active Start: September 19, 2024 Dr. Altaf Meeks , Other Provider Active Start: September 19, 2024 Dr. Demetrius Nash , Attending Provider Active Start: September 19, 2024 Dr. Demetrius Nash , Other Provider Active S tart: September 19, [...] Active Start: December 03, 2024 Dr. Michael Meesk DO Referring Provider Active Start: December 03, [...] December 31, 2024 End: December 31, 2024 Team Status: Active Member Role Status Dates Dr. Michael Meeks DO Primary Care Provider Active Start: January 01, 2025 Dr. Booker Rodríguez DO Emergency Provider Active Start: January 01, 2025 Dr. Mei Mckenzie DO Admit Provider Active Start : January 01, 2025 Dr. Mei Mckenzie DO Attending Provider Active S tart: January 01, 2025 Team Status: Active Member Role Status Dates Dr. Michael Meeks DO Primary Care Provider Active Start: January 02, 2025 Dr. Booker Rodríguez DO Emergency Provider Active Start: January 02, 2025 Dr. Mei Mckenzie DO Admit Provider Active Start : January 02, 2025 Dr. Mei Mckenzie DO Attending Provider Active S tart: January 02, 2025 Dr. Mei Mckenzie DO Other Provider Active Start : January 02, 2025 Team Status: Inactive Member Role Status Dates Dr. Alberto Mustafa MD Primary Care Provider Active Start: December 17, 2024 End: December 17, 2024 Dr. Michael HUNT MD Attending Provider Active Start: December 17, 2024 End: December 17, 2024 Team Status: Active Member Role Status Dates Dr. Michael Meeks DO Primary Care Provider Active Start: January 01, 2025 Dr. Booker Rodríguez DO Emergency Provider Active Start: January 01, 2025 Dr. Mei Mckenzie DO Admit Provider Active Start : January 01, 2025 Dr. Mei Mckenzie DO Other Provider Active Start : January 01, 2025 Dr. Sofia Lopez MD Attending Provider Active Start: January 01, 2025 Dr. Juanjo Arias MD Other Provider Active Start: January 01, 2025 Dr. Jaden Forman DPM Other Provider Active St art: January 01, 2025 Team Status: Active Member Role Status Dates Dr. Alberto Mustafa MD Primary Care Provider Active Start: December 24, 2024 Dr. Jaden Forman DPM Attending Provider Active Start: December 24, 2024 Dr. Michael Meeks DO Referring Provider Active Start: December 24, 2024 Team Status: Inactive Member Role Status Dates Dr. Booker Rodríguez DO Attending Provider Active Start: December 31, 2024 End: December 31, 2024 Dr. Booker Rodríguez DO Emergency Provider Active Start: December 31, 2024 End: December 31, 2024 Dr. Michael Meeks DO Primary Care Provider Active Start: December 31, 2024 End: December 31, 2024 Team Status: Inactive Member Role Status Dates Dr. iMchael Meeks DO Primary Care Provider Active Start: January 01, 2025 End: January 08, 2025 Dr. Booker Rodríguez DO Emergency Provider Active Start: January 01, 2025 End: January 08, 2025 Dr. Mei Mckenzie DO Admit Provider Active Start : January 01, 2025 End: January 08, 2025 Dr. Mei Mckenzie DO Other Provider Active Start : January 01, 2025 End: January 08, 2025 Dr. Dusty Abad MD Attending Provider Active Start: January 01, 2025 End: January 08, 2025 Dr. Sofia Lopez MD Other Provider Active St art: January 01, 2025 End: January 08, 2025 Dr. Juanjo Arias MD Other Provider Active Start: January 01, 2025 End: January 08, 2025 Dr. Jaden Forman DPM Other Provider Active St art: January 01, 2025 End: January 08, 2025 Team Status: Active Member Role Status Dates Dr. Michael Meeks DO Primary Care Provider Active Start: January 02, 2025 Dr. Kana Birmingham MD Attending Provider Active Start: January 02, 2025 Team Status: Active Member Role Status Dates Dr. Michael Meeks DO Primary Care Provider Active Start: January 03, 2025 Dr. Booker Rodríguez DO Emergency Provider Active Start: January 03, 2025 Dr. Mei Mckenzie DO Admit Provider Active Start : January 03, 2025 Dr. Mei Mckenzie DO Other Provider Active Start : January 03, 2025 Dr. Sofia Lopez MD Attending Provider Active Start: January 03, 2025 Dr. Sofia Lopez MD Other Provider Active St art: January 03, 2025 Dr. Juanjo Arias MD Other Provider Active Start: January 03, 2025 Dr. Jaden Forman DPM Other Provider Active St art: January 03, 2025 Team Status: Active Member Role Status Dates Dr. Michael Meeks DO Primary Care Provider Active Start: January 04, 2025 Dr. Booker Rodríguez DO Emergency Provider Active Start: January 04, 2025 Dr. Mei Mckenzie DO Admit Provider Active Start : January 04, 2025 Dr. Mei Mckenzie DO Other Provider Active Start : January 04, 2025 Dr. Sofia Lopez MD Attending Provider Active Start: January 04, 2025 Dr. Sofia Lopez MD Other Provider Active St art: January 04, 2025 Dr. Juanjo Arias MD Other Provider Active Start: January 04, 2025 Dr. Jaden Forman DPM Other Provider Active St art: January 04, 2025 Team Status: Active Member Role Status Dates Dr. Michael Meeks DO Primary Care Provider Active Start: January 05, 2025 Dr. Booker Rodríguez DO Emergency Provider Active Start: January 05, 2025 Dr. Mei Mckenzie DO Admit Provider Active Start : January 05, 2025 Dr. Mei Mckenzie DO Other Provider Active Start : January 05, 2025 Dr. Juanjo Arias MD Other Provider Active Start: January 05, 2025 Dr. Jaden Forman DPM Other Provider Active St art: January 05, 2025 Dr. Dusty Abad MD Attending Provider Active Start: January 05, 2025 Dr. Dusty Abad MD Other Provider Active Sta rt: January 05, 2025 Dr. Sofia Lopez MD Other Provider Active St art: January 05, 2025 Team Status: Active Member Role Status Dates Dr. Michael Meeks DO Primary Care Provider Active Start: January 06, 2025 Dr. Booker Rodríguez DO Emergency Provider Active Start: January 06, 2025 Dr. Mei Mckenzie DO Admit Provider Active Start : January 06, 2025 Dr. Mei Mckenzie DO Other Provider Active Start : January 06, 2025 Dr. Dusty Abad MD Attending Provider Active Start: January 06, 2025 Dr. Dusty Abad MD Other Provider Active Sta rt: January 06, 2025 Dr. Sofia Lopez MD Other Provider Active St art: January 06, 2025 Dr. Juanjo Arias MD Other Provider Active Start: January 06, 2025 Dr. Jaden Forman DPM Other Provider Active St art: January 06, 2025 Team Status: Active Member Role Status Dates Dr. Michael Meeks DO Primary Care Provider Active Start: January 07, 2025 Dr. Booker Rodríguez DO Emergency Provider Active Start: January 07, 2025 Dr. Mei Mckenzie DO Admit Provider Active Start : January 07, 2025 Dr. Mei Mckenzie DO Other Provider Active Start : January 07, 2025 Dr. Dusty Abad MD Attending Provider Active Start: January 07, 2025 Dr. Dusty Abad MD Other Provider Active Sta rt: January 07, 2025 Dr. Sofia Lopez MD Other Provider Active St art: January 07, 2025 Dr. Juanjo Arias MD Other Provider Active Start: January 07, 2025 Dr. Jaden Forman DPM Other Provider Active St art: January 07, 2025 Team Status: Active Member Role Status Dates Dr. Michael Meeks DO Primary Care Provider Active Start: January 08, 2025 Dr. Booker Rodríguez DO Emergency Provider Active Start: January 08, 2025 Dr. Mei Mckenzie DO Admit Provider Active Start : January 08, 2025 Dr. Mei Mckenzie DO Other Provider Active Start : January 08, 2025 Dr. Dusty Abad MD Attending Provider Active Start: January 08, 2025 Dr. Dusty Abad MD Other Provider Active Sta rt: January 08, 2025 Dr. Sofia Lopez MD Other Provider Active St art: January 08, 2025 Dr. Juanjo Arias MD Other Provider Active Start: January 08, 2025 Dr. Jaden Forman DPM Other Provider Active St art: January 08, 2025 Team Status: Active Member Role/Relationship Status Dates Dr. Michael Meeks DO Primary Care Provider Active Team Status: Inactive Member Role/Relationship Status Dates Dr. Alberto Mustafa MD Primary Care Provider Active Start: September 22, 2024 End: September 22, 2024 Dr. Michael HUNT MD Attending Provider Active Start: September 22, 2024 End: September 22, 2024 Team Status: Inactive Member Role/Relationship Status Dates Dr. Alberto Mustafa MD Primary Care Provider Active Start: September 24, 2024 End: September 24, 2024 Dr. Michael HUNT MD Attending Provider Active Start: September 24, 2024 End: September 24, 2024 Team Status: Inactive Member Role/Relationship Status Dates Dr. Alberto Mustafa MD Primary Care Provider Active Start: October 15, 2024 End: October 20, 2024 Dr. Jaden Forman DPM Attending Provider Active Start: October 15, 2024 End: October 20, 2024 Dr. Michael Meeks DO Referring Provider Active Start: October 15, 2024 End: October 20, 2024 Team Status: Inactive Member Role/Relationship Status Dates Dr. Alberto Mustafa MD Primary Care Provider Active Start: October 22, 2024 End: November 19, 2024 Dr. Jaden Forman DPM Attending Provider Active Start: October 22, 2024 End: November 19, 2024 Dr. Michael Meeks DO Referring Provider Active Start: October 22, 2024 End: November 19, 2024 Team Status: Inactive Member Role/Relationship Status Dates Dr. Alberto Mustafa MD Primary Care Provider Active Start: October 27, 2024 End: October 27, 2024 Dr. Michael HUNT MD Attending Provider Active Start: October 27, 2024 End: October 27, 2024 Team Status: Inactive Member Role/Relationship Status Dates Dr. Alberto Mustafa MD Primary Care Provider Active Start: November 05, 2024 End: November 05, 2024 Dr. Michael HUNT MD Attending Provider Active Start: November 05, 2024 End: November 05, 2024 Team Status: Inactive Member Role/Relationship Status Dates Dr. Alberto Mustafa MD Primary Care Provider Active Start: November 24, 2024 End: November 24, 2024 Dr. Michael HUNT MD Attending Provider Active Start: November 24, 2024 End: November 24, 2024 Team Status: Inactive Member Role/Relationship Status Dates Dr. Alberto Mustafa MD Primary Care Provider Active Start: November 26, 2024 End: November 26, 2024 Dr. Michael HUNT MD Attending Provider Active Start: November 26, 2024 End: November 26, 2024 Team Status: Inactive Member Role/Relationship Status Dates Dr. Alberto Mustafa MD Primary Care Provider Active Start: December 03, 2024 End: December 20, 2024 Dr. Jaden Forman DPM Attending Provider Active Start: December 03, 2024 End: December 20, 2024 Dr. Michael Meeks DO Referring Provider Active Start: December 03, 2024 End: December 20, 2024 Team Status: Active Member Role/Relationship Status Dates Dr. Alberto Mustafa MD Primary Care Provider Active Start: December 16, 2024 Dr. Michael HUNT MD Attending Provider Active Start: December 16, 2024 Dr. Michael HUNT MD Referring Provider Active Start: December 16, 2024 Team Status: Inactive Member Role/Relationship Status Dates Dr. Alberto Mustafa MD Primary Care Provider Active Start: December 17, 2024 End: December 17, 2024 Dr. Michael HUNT MD Attending Provider Active Start: December 17, 2024 End: December 17, 2024 Team Status: Inactive Member Role/Relationship Status Dates Dr. Alberto Mustafa MD Primary Care Provider Active Start: December 31, 2024 End: January 19, 2025 Dr. Jaden Forman DPM Attending Provider Active Start: December 31, 2024 End: January 19, 2025 Dr. Michael Meeks DO Referring Provider Active Start: December 31, 2024 End: January 19, 2025 Team Status: Inactive Member Role/Relationship Status Dates Dr. Booker Rodríguez DO Attending Provider Active Start: December 31, 2024 End: December 31, 2024 Dr. Booker Rodríguez DO Emergency Provider Active Start: December 31, 2024 End: December 31, 2024 Dr. Michael Meesk DO Primary Care Provider Active Start: December 31, 2024 End: December 31, 2024 Team Status: Inactive Member Role/Relationship Status Dates Dr. Michael Meeks DO Primary Care Provider Active Start: January 01, 2025 End: January 08, 2025 Dr. Booker Rodríguez DO Emergency Provider Active Start: January 01, 2025 End: January 08, 2025 Dr. Mei Mckenzie DO Admit Provider Active Start : January 01, 2025 End: January 08, 2025 Dr. Mei Mckenzie DO Other Provider Active Start : January 01, 2025 End: January 08, 2025 Dr. Dusty Abad MD Attending Provider Active Start: January 01, 2025 End: January 08, 2025 Dr. Sofia Lopez MD Other Provider Active St art: January 01, 2025 End: January 08, 2025 Dr. Juanjo Arias MD Other Provider Active Start: January 01, 2025 End: January 08, 2025 Dr. Jaden Forman DPM Other Provider Active St art: January 01, 2025 End: January 08, 2025 Team Status: Active Member Role/Relationship Status Dates Dr. Michael Meeks DO Primary Care Provider Active Start: January 02, 2025 Dr. Booker Rodríguez DO Emergency Provider Active Start: January 02, 2025 Dr. Mei Mckenzie DO Admit Provider Active Start : January 02, 2025 Dr. Mei Mckenzie DO Attending Provider Active S tart: January 02, 2025 Dr. Mei Mckenzie DO Other Provider Active Start : January 02, 2025 Team Status: Active Member Role/Relationship Status Dates Dr. Michael Meeks DO Primary Care Provider Active Start: January 02, 2025 Dr. Booker Rodríguez DO Emergency Provider Active Start: January 02, 2025 Dr. Mei Mckenzie DO Admit Provider Active Start : January 02, 2025 Dr. Mei Mckenzie DO Other Provider Active Start : January 02, 2025 Dr. Sofia Lopez MD Attending Provider Active Start: January 02, 2025 Team Status: Active Member Role/Relationship Status Dates Dr. Michael Meeks DO Primary Care Provider Active Start: January 02, 2025 Dr. Kana Birmingham MD Attending Provider Active Start: January 02, 2025 Team Status: Active Member Role/Relationship Status Dates Dr. Michael Meeks DO Primary Care Provider Active Start: January 02, 2025 Dr. Booker Cervantes MD Attending Provider Active S tart: January 02, 2025 Dr. Jaden Forman DPM Referring Provider Active Start: January 02, 2025 Team Status: Active Member Role/Relationship Status Dates Dr. Michael Meeks DO Primary Care Provider Active Start: January 03, 2025 Dr. Booker Rodríguez DO Emergency Provider Active Start: January 03, 2025 Dr. Mei Mckenzie DO Admit Provider Active Start : January 03, 2025 Dr. Mei Mckenzie DO Other Provider Active Start : January 03, 2025 Dr. Sofia Lopez MD Attending Provider Active Start: January 03, 2025 Dr. Sofia Lopez MD Other Provider Active St art: January 03, 2025 Dr. Juanjo Arias MD Other Provider Active Start: January 03, 2025 Dr. Jaden Forman DPM Other Provider Active St art: January 03, 2025 Team Status: Active Member Role/Relationship Status Dates Dr. Michael Meeks DO Primary Care Provider Active Start: January 04, 2025 Dr. Booker Rodríguez DO Emergency Provider Active Start: January 04, 2025 Dr. Mei Mckenzie DO Admit Provider Active Start : January 04, 2025 Dr. Mei Mckenzie DO Other Provider Active Start : January 04, 2025 Dr. Sofia Lopez MD Attending Provider Active Start: January 04, 2025 Dr. Sofia Lopez MD Other Provider Active St art: January 04, 2025 Dr. Juanjo Arias MD Other Provider Active Start: January 04, 2025 Dr. Jaden Forman DPM Other Provider Active St art: January 04, 2025 Team Status: Active Member Role/Relationship Status Dates Dr. Michael Meeks DO Primary Care Provider Active Start: January 05, 2025 Dr. Booker Rodríguez DO Emergency Provider Active Start: January 05, 2025 Dr. Mei Mckenzie DO Admit Provider Active Start : January 05, 2025 Dr. Mei Jonah , DO Other Provider Active Start : January 05, 2025 Dr. Juanjo Arias MD Other Provider Active Start: January 05, 2025 Dr. Jaden Forman DPM Other Provider Active St art: January 05, 2025 Dr. Dusty Abad MD Attending Provider Active Start: January 05, 2025 Dr. Dusty Abad MD Other Provider Active Sta rt: January 05, 2025 Dr. Sofia Lopez MD Other Provider Active St art: January 05, 2025 Team Status: Active Member Role/Relationship Status Dates Dr. Michael Meeks DO Primary Care Provider Active Start: January 06, 2025 Dr. Booker Rodríguez DO Emergency Provider Active Start: January 06, 2025 Dr. Mei Mckenzie DO Admit Provider Active Start : January 06, 2025 Dr. Mei Mckenzie DO Other Provider Active Start : January 06, 2025 Dr. Dusty Abad MD Attending Provider Active Start: January 06, 2025 Dr. Dusty Abad MD Other Provider Active Sta rt: January 06, 2025 Dr. Sofia Lopez MD Other Provider Active St art: January 06, 2025 Dr. Juanjo Arias MD Other Provider Active Start: January 06, 2025 Dr. Jaden Forman DPM Other Provider Active St art: January 06, 2025 Team Status: Active Member Role/Relationship Status Dates Dr. Michael Meeks DO Primary Care Provider Active Start: January 07, 2025 Dr. Booker Rodríguez DO Emergency Provider Active Start: January 07, 2025 Dr. Mei Mckenzie DO Admit Provider Active Start : January 07, 2025 Dr. Mei Mckenzie DO Other Provider Active Start : January 07, 2025 Dr. Dusty Abad MD Attending Provider Active Start: January 07, 2025 Dr. Dusty Abad MD Other Provider Active Sta rt: January 07, 2025 Dr. Sofia Lopez MD Other Provider Active St art: January 07, 2025 Dr. Juanjo Arias MD Other Provider Active Start: January 07, 2025 Dr. Jaden Forman DPM Other Provider Active St art: January 07, 2025 Team Status: Active Member Role/Relationship Status Dates Dr. Michael Meeks DO Primary Care Provider Active Start: January 08, 2025 Dr. Booker Rodríguez , Emergency Provider Active Start: January 08, 2025 Dr. Mei Mckenzie , Admit Provider Active Start : January 08, 2025 Dr. Mei Mckenzie , DO Other Provider Active Start : January 08, 2025 Dr. Dusty Abad MD Attending Provider Active Start: January 08, 2025 Dr. Dusty Abad MD Other Provider Active Sta rt: January 08, 2025 Dr. Sofia Lopez MD Other Provider Active St art: January 08, 2025 Dr. Juanjo Arias MD Other Provider Active Start: January 08, 2025 Dr. Jaden Forman DPM Other Provider Active St art: January 08, 2025 (unrecognized sect ion and content) No Status Records Found INFORMATION SOURCE (unrecogn ized section and content) DATE CREATED AUTHOR 01/23/2025 [facility] FOR RECORDS PERTAINING TO PATIENTS WHO ARE [...] BE BASED ON THE PRIMARY CLINICAL RECORDS. [facility]. provides no warranty or guarantee of the accuracy or completeness of information in this document.
[2025-01-30] MEDS: 0.9 % NaCl (Sterile) Posiflush 10 mL IV ×2 (22:33→23:37)
[2025-01-30] MEDS: Vancomycin HCl 2,000 MG in 0.9% Normal Saline (500mL Bag) 500 ML 250 MG IV (22:33)
[2025-01-30] MEDS: Lactated Ringers 1,000 ML 1000 ML IV (22:35)
[2025-01-30 22:59] LABS: Reflex Lactate? Y
--- NOTE | 2025-01-30 23:14 | NURSING ---
Upon receiving report from ED, they said they thought a second set was drawn and they would send them down. Only one set of blood cultures was received in the computer, and lab said they only had one set down there. Second set will be drawn now.
--- NOTE | 2025-01-30 23:18 | PCM.RX.CS ---
Consult Antibiotic Management Pharmacy has been consulted to manage selected antibiotic: Vancomycin Type of Intervention Type of Consult: New start Suspected Infection Suspected Infection: Sepsis and Other (uti) Labs Labs: Sodium 141 mmol/L (133-145) 01/30/25 18:25 Potassium 3.3 mmol/L (3.3-5.1) 01/30/25 18:25 Chloride 104 mmol/L (98-108) 01/30/25 18:25 Carbon Dioxide 23.6 mmol/L (21.0-32.0) 01/30/25 18:25 Anion Gap 13 (5-15) 01/30/25 18:25 BUN 23 mg/dL (4-19) H 01/30/25 18:25 Creatinine 1.89 mg/dL (0.70-1.20) H 01/30/25 18:25 Est GFR (MDRD) Non-Af 34 (>60) L 01/30/25 18:25 BUN/Creatinine Ratio 11.9 RATIO (10-20) 01/30/25 18:25 Glucose 113 mg/dL (70-99) H 01/30/25 18:25 Pharmacy Plan for Drug Dosing Pharmacy Plan for Drug Dosing: NEW START IV VANCOMYCIN Consulting Physician: Srinivas Indication: UTI/sepsis Goal Trough: 15-20 SrCr: 1.89 mg/dL CrCl: 32 mL/min Comments: 2000mg loading dose given 01/30 @ 2233 Vancomycin Dose: Will start 1250mg Q24 (01/31 @ 2230) and get a trough prior to 3rd total dose per policy. Pending Level: 02/01/25 @ 2200 Pharmacy Service will continue to monitor and adjust dosing as required.
[2025-01-30] MEDS: Lactated Ringers 1,000 ML 150 ML IV (23:37)
[2025-01-31] VITALS (18 sets, daily range): BP systolic 99–134; BP diastolic 48–76; PULSE 60–112; RESP 14–21; TEMP 36.6–38.5; O2SAT 93–100; BMI 28.4
[2025-01-31] MEDS: Magnesium Sulfate 2 GM in Dextrose 5%-Water (100mL Bag) 100 ML IV (00:17)
[2025-01-31] MEDS: Potassium Phosphate 21 MM in 0.9% Normal Saline (250mL Bag) 250 ML 84 MM IV (00:51)
[2025-01-31 03:57] LABS: Hematocrit 26.6 % (40-54); Hemoglobin 8.9 g/dL (13.0-16.5); Mean Corp Hgb Conc 33.5 g/dL (32-36); Mean Corpuscular Volume 95.0 fL (80-94); Mean Platelet Vol. 9.4 fl (6.2-12.0); Platelet Count 149 K/mm3 (150-450); RBC Distribution Width CV 13.0 % (11.6-14.6); RBC Distribution Width SD 45.2 fl (35.1-43.9); Red Blood Count 2.80 M/mm3 (4.6-6.2); White Blood Count 26.0 K/mm3 (4.4-11.0)
[2025-01-31] MEDS: 0.9 % NaCl (Sterile) Posiflush 10 mL IV (04:31)
[2025-01-31] MEDS: Piperacil/Tazobactam 3.375 GM in 0.9% Normal Saline (50mL MB+) 50 ML IV ×3 (04:32→21:16)
[2025-01-31 04:33] LABS: Anion Gap 9 (5-15); BUN 22 mg/dL (4-19); BUN/Creat Ratio 10.4 RATIO (10-20); Calcium,Total 7.8 mg/dL (7.6-11.0); Carbon Dioxide 22.6 mmol/L (21.0-32.0); Chloride 109 mmol/L (98-108); Estimated Creatinine Clearance 26.94 ml/min (50-250); Glucose 132 mg/dL (70-99); Potassium 3.7 mmol/L (3.3-5.1)
[2025-01-31] MEDS: Lactated Ringers 1,000 ML 150 ML IV ×3 (06:20→20:23)
[2025-01-31] MEDS: CHLORHEXIDINE GLUC 2% CLOTH 1 EACH TOWELETTE TOPICAL (06:20)
[2025-01-31] MEDS: APIXABAN 2.5 MG TABLET (WCH) PO ×2 (08:02→20:19)
[2025-01-31] MEDS: Senna/Docusate Sodium 1 Tablet 2 TABLET PO ×2 (08:02→20:19)
--- NOTE | 2025-01-31 15:16 | PN.HOSP_ITS ---
Reason for Visit Reason for Visit: Diagnoses Sepsis, unspecified organism (01/30/25) Unspecified atrial fibrillation (01/30/25) Urinary tract infection, site not specified (01/30/25) Subjective Subjective Patient was seen and examined today, he appears medically stable at this time, he remains confused but has a diagnosis of dementia. Objective Data Objective Data Vital Signs: Vital Signs Temp Pulse Resp BP Pulse Ox O2 Del Method O2 Flow Rate 98.5 F 73 16 104/63 95 Room Air 2 01/31/25 12:00 01/31/25 15:00 01/31/25 15:00 01/31/25 15:00 01/31/25 15:00 01/31/25 15:00 01/31/25 14:33 FiO2 50 01/31/25 08:00 Oxygen Flow Rate (L/min) 2 Oxygen Delivery Method Room Air Weight: 95.2 kg Body Mass Index (BMI) 28.4 Intake & Output: Intake and Output for Last 24 Hours 01/29/25 01/30/25 01/31/25 23:59 23:59 23:59 Intake Total 2100 / 2100 2951 / 2951 Output Total 450 / 450 Balance 2100 / 1900 2501 / 2501 Lab / Micro Data 01/31/25 03:51 01/31/25 03:51 Labs: Laboratory Results - last 24 hr 01/30/25 18:25: WBC 6.3, RBC 3.55 L, Hgb 11.3 L, Hct 33.5 L, MCV 94.4 H, MCH 31.8, MCHC 33.7, RDW Std Deviation 44.1 H, RDW Coeff of Gary 12.7, Plt Count 177, MPV 9.6, Neut % (Auto) Not Reportable, Absolute Neuts (auto) 5.2, Absolute Lymphs (auto) 0.38 L, Total Counted 100, Neutrophils % (Manual) 70, Band Neutrophils % 13 H, Lymphocytes % (Manual) 6 L, Monocytes % (Manual) 3, Eosinophils % (Manual) 2, Metamyelocytes % 2 H, Myelocytes % 4 H, Diff Path Review November, Platelet Estimate ADEQUATE, PT 13.5, INR 1.0, APTT 25.1, Sodium 141, Potassium 3.3, Chloride 104, Carbon Dioxide 23.6, Anion Gap 13, BUN 23 H, C reatinine 1.89 H, Estim Creat Clear Calc 32.29 L, Est GFR (MDRD) Non-Af 34 L, BUN/Creatinine Ratio 11.9, Glucose 113 H, Lactic Acid 2.6 H*, Calcium 8.9, P hosphorus 2.5 L, Magnesium 1.7, Total Bilirubin 0.49, AST 29, ALT 33, Alkaline Phosphatase 198 H, Total Protein 6.5, Albumin 2.9 L, Globulin 3.6, A lbumin/Globulin Ratio 0.8 L 01/30/25 19:15: Urine Color Yellow, Urine Clarity Turbid, Urine pH 6.0, Ur Specific Victoria 1.015, Urine Protein 100 H, Urine Glucose (UA) Normal, Urine Ketones Negative, Urine Occult Blood 250 H, Urine Nitrite Negative, Urine Bilirubin Negative, Urine Urobilinogen Normal, Ur Leukocyte Esterase 500 H, Urine RBC > 100 SEEN, Urine WBC >100 SEEN, Ur Squamous Epith Cells 0-5 SEEN, Urine Bacteria 4+, Urine Mucus 0 SEEN 01/30/25 23:05: Lactic Acid 2.0 01/31/25 03:51: WBC 26.0 H, RBC 2.80 L, Hgb 8.9 L, Hct 26.6 L, MCV 95.0 H, MCH 31.8, MCHC 33.5, RDW Std Deviation 45.2 H, RDW Coeff of Gary 13.0, Plt Count 149 L, MPV 9.4, Sodium 141, Potassium 3.7, Chloride 109 H, Carbon Dioxide 22.6, Anion Gap 9, BUN 22 H, Creatinine 2.08 H, Estim Creat Clear Calc 26.94 L, Est GFR (MDRD) Non-Af 30 L, BUN/Creatinine Ratio 10.4, Glucose 132 H, Calcium 7.8 Micro: Microbiology 01/30/25 19:15 Urine, Catheterized Urine 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 Reading Location: [place] [id number] Renal Ultrasound 01/30/25 21:33 IMPRESSION: 1. Slightly limited evaluation due to shadowing bowel gas. Mildly increased echogenicity of the renal cortices, suggestive of medical renal disease. 2. No hydronephrosis. Reading Location: [id number] Physical Exam Const alert and no apparent distress Constitutional Narrative: Patient is confused General Appearance: cooperative, well kempt and well developed Orientation / Consciousness: awake HEENT normocephalic, head/scalp atraumatic and moist oral mucous membranes Eyes PERRL, EOMs intact bilaterally and conjunctivae normal Neck supple, no JVD and thyroid normal General: trachea midline Resp normal respiratory effort, no retractions, no use of accessory muscles and clear to auscultation bilaterally Auscultation: Negative for rales, rhonchi or wheezes Cardio regular rate, regular rhythm, S1 normal heart sound, S2 normal heart sound, no murmurs, no rub and no gallops Cardio Narrative: With PACs GI normal to inspection, nondistended, normoactive bowel sounds, soft to palpation, non-tender and non-distended Extremity no clubbing, cyanosis or edema Skin no rashes or lesions noted General Skin Exam: no breakdown Neuro CN's II-XII intact bilaterally, moves all extremities, no focal motor deficits and no sensory deficits noted Neuro Narrative: Patient is confused Sensorium / Orientation: awake and alert Speech: speech normal Psych Psych Narrative: Patient is confused Assessment & Plan Assessment/Plan (1) Sepsis: PLAN: Plan 1. Sepsis secondary to acute cystitis-patient is to remain on vancomycin and Zosyn, await culture results, patient appears stable for transfer to [facility] status #2 paroxysmal atrial fibrillation-patient is currently in sinus rhythm with PACs #3 dementia-I do not believe the patient has encephalopathy, he has a history of dementia. #4 acute anemia-etiology unclear, CBC will be rechecked tomorrow #5 dehydration-continue IV lactated Ringer's, I have decided to decrease his rate to 100 cc/h, recheck BMP tomorrow Total clinical time spent by myself addressing the patient's medical issues, reviewing all of his data, and collaborating with patient's care team: 35 minutes Charges/Coding Visit Charges Inpatient E&M: 36631 Subs Hosp L2
--- NOTE | 2025-01-31 16:18 | CASEMGMT ---
Social Work Pt is admitted from the [facility] where he is receiving skilled care for IV ATB. HEATHER spoke with pt's dgt Sade who confirms the plan for pt to return to the [place] [facility] [facility] at time of discharge. Clinicals sent to the [facility]. Pt does have a HCPOA on file at [facility] . HEATHER requested Sade bring in pt's living will. MORRIS Burden
[2025-01-31] MEDS: MELATONIN 3 MG TABLET PO (20:19)
[2025-01-31] MEDS: 0.9% Normal Saline (250mL Bag) 250 ML 15 ML IV (21:17)
[2025-01-31] MEDS: Vancomycin HCl 1,250 MG in 0.9% Normal Saline (250mL Bag) 250 ML 167 MG IV (22:34)
[2025-02-01] VITALS (8 sets, daily range): BP systolic 146–181; BP diastolic 65–90; PULSE 72–89; RESP 16–18; TEMP 36.5–37.1; O2SAT 93–100; BMI 29.5
[2025-02-01] MEDS: Lactated Ringers 1,000 ML 150 ML IV (03:57)
[2025-02-01] MEDS: Piperacil/Tazobactam 3.375 GM in 0.9% Normal Saline (50mL MB+) 50 ML IV ×3 (05:19→22:38)
[2025-02-01] MEDS: APIXABAN 2.5 MG TABLET (WCH) PO ×2 (11:32→20:41)
[2025-02-01] MEDS: Lactated Ringers 1,000 ML 100 ML IV ×2 (11:36→20:41)
--- NOTE | 2025-02-01 16:01 | PCM.PN.HOSP ---
Reason for Visit Chief Complaint: Confusion and elevated BP Subjective Subjective Patient was seen and examined today, he is nonverbal to this examiner. He does not appear to be in any distress however Objective Data Objective Data Vital Signs: Vital Signs Temp Pulse Resp BP Pulse Ox O2 Del Method O2 Flow Rate 98 F 80 18 150/80 H 95 Room Air 2 02/01/25 09:30 02/01/25 15:09 02/01/25 15:09 02/01/25 09:30 02/01/25 15:09 02/01/25 15:09 01/31/25 14:33 FiO2 50 01/31/25 08:00 Oxygen Flow Rate (L/min) 2 Oxygen Delivery Method Room Air Weight: 99.1 kg Body Mass Index (BMI) 29.5 Intake & Output: Intake and Output for Last 24 Hours 01/30/25 01/31/25 02/01/25 23:59 23:59 23:59 Intake Total 2100 / 2100 4401 / 4401 2875 / 2875 Output Total 550 / 550 275 / 275 Balance 2100 / 1900 3851 / 3851 2600 / 2600 Lab / Micro Data 01/31/25 03:51 01/31/25 03:51 Micro: Microbiology 01/30/25 19:15 Urine, Catheterized Urine Culture - Final Klebsiella pneumoniae sp pneum 01/31/25 02:00 Mucosa - Nasopharyngeal Respiratory Panel (PCR) - Final Physical Exam Narrative alert and no apparent distress Constitutional Narrative: Patient is confused General Appearance: cooperative, well kempt and well developed Orientation / Consciousness: awake HEENT normocephalic, head/scalp atraumatic and moist oral mucous membranes Eyes PERRL, EOMs intact bilaterally and conjunctivae normal Neck supple, no JVD and thyroid normal General: trachea midline Resp normal respiratory effort, no retractions, no use of accessory muscles and clear to auscultation bilaterally Auscultation: Negative for rales, rhonchi or wheezes Cardio regular rate, regular rhythm, S1 normal heart sound, S2 normal heart sound, no murmurs, no rub and no gallops Cardio Narrative: With PACs GI normal to inspection, nondistended, normoactive bowel sounds, soft to palpation, non-tender and non-distended Extremity no clubbing, cyanosis or edema Skin no rashes or lesions noted General Skin Exam: no breakdown Neuro CN's II-XII intact bilaterally, moves all extremities, no focal motor deficits and no sensory deficits noted Neuro Narrative: Patient is confused Sensorium / Orientation: awake and alert Speech: Patient is nonverbal with this examiner Psych Psych Narrative: Patient is confused, nonverbal Assessment & Plan Assessment/Plan (1) Sepsis: PLAN: Plan 1. Sepsis secondary to acute cystitis-patient's urine culture grew out Klebsiella pneumonia sensitive to several different antibiotics, I have elected to keep the patient on Zosyn for now #2 paroxysmal atrial fibrillation-patient is currently in sinus rhythm with PACs #3 dementia-I do not believe the patient has encephalopathy, he has a history of dementia. #4 acute anemia-etiology unclear, CBC will be rechecked tomorrow #5 dehydration-I will recheck the patient's BMP tomorrow Total clinical time spent by myself addressing the patient's medical issues, reviewing all of his data, and collaborating with patient's care team: 35 minutes Charges/Coding Visit Charges Inpatient E&M: 01300 Subs Hosp L2
[2025-02-01] MEDS: MELATONIN 10 MG TABLET PO (20:41)
[2025-02-02 02:15] VITALS: BP 137/80; PULSE 79; RESP 18; TEMP 36.9; O2SAT 97
[2025-02-02] MEDS: Piperacil/Tazobactam 3.375 GM in 0.9% Normal Saline (50mL MB+) 50 ML IV (05:45)
[2025-02-02 06:00] VITALS: BMI 30.7
[2025-02-02 07:04] LABS: Anion Gap 14 (5-15); BUN 36 mg/dL (4-19); BUN/Creat Ratio 9.5 RATIO (10-20); Calcium,Total 8.2 mg/dL (7.6-11.0); Carbon Dioxide 20.0 mmol/L (21.0-32.0); Chloride 106 mmol/L (98-108); Estimated Creatinine Clearance 16.81 ml/min (50-250); Glucose 103 mg/dL (70-99); Potassium 3.9 mmol/L (3.3-5.1)
[2025-02-02 08:00] VITALS: O2SAT 98
--- NOTE | 2025-02-02 09:34 | CASEMGMT ---
Discharge Planning Updates sent to [facility]. Rosalia Medina DC Planning Asst.
[2025-02-02 09:52] LABS: Hematocrit 29.0 % (40-54); Hemoglobin 9.8 g/dL (13.0-16.5); Immature Granulocytes Count 0.430 X10^3/uL (0.0-0.0); Mean Corp Hgb Conc 33.8 g/dL (32-36); Mean Corpuscular Volume 95.4 fL (80-94); Platelet Count 216 K/mm3 (150-450); RBC Distribution Width CV 13.2 % (11.6-14.6); RBC Distribution Width SD 45.9 fl (35.1-43.9); Red Blood Count 3.04 M/mm3 (4.6-6.2); White Blood Count 14.9 K/mm3 (4.4-11.0)
[2025-02-02 09:53] LABS: Mean Platelet Vol. 9.5 fl (6.2-12.0)
[2025-02-02] MEDS: APIXABAN 2.5 MG TABLET (WCH) PO ×2 (10:37→22:54)
[2025-02-02] MEDS: Lactated Ringers 1,000 ML 100 ML IV ×2 (10:38→23:24)
[2025-02-02 11:00] VITALS: BP 170/96; PULSE 81; RESP 18; TEMP 36.6; O2SAT 95
--- NOTE | 2025-02-02 11:23 | CON.PCM.RE_ITS ---
Assessment & Plan Assessment/Plan (1) Acute kidney injury: PLAN: This is an 89-year-old male with past medical history significant for dementia, hypothyroidism who was brought to the emergency room from extended- care facility for confusion and elevated blood pressure. Per custodial patient's systolic blood pressure above 200. Patient was just recently at [facility] from January 01 to January 08, treated for MSSA bacteremia in setting of cellulitis of his foot and left foot osteomyelitis, [place] no vegetation seen but difficult study; patient had PICC line placed and was discharged to [facility] with IV vancomycin with stop date of 02/16/2025. Nephrology consulted in view of elevated creatinine. Creatinine was 1.8 in the ER and today creatinine is up to 3.77. Baseline creatinine is ranging around 1.1 to 1.3 mg/dL. During his last hospitalization, creatinine was 1.9 on admission and by time of hospital discharge creatinine 1.06 on January 08. Patient is nonoliguric, Holguin in place, urine is straw colored. Renal ultrasound no hydronephrosis. No recent contrast studies. UA positive leukocyte esterase and blood but this was a catheter specimen. Last vancomycin trough level 11.9 on January 07. Patient has had fluctuation in blood pressures to some hypotensive episodes last 24 to 48 hours. Lowest documented blood pressure 99/53 on January 31. At this time there is no acute indication for renal placement therapy, patient does have urine output, potassium and bicarb acceptable. We will continue with gentle IV fluids as ordered. Will check complements given recent history of antibiotics. Vancomycin and Zosyn have been stopped. He is on Omnicef. Urine culture Klebsiella, blood cultures so far no growth to date. Will check Vanco level. Will repeat metabolic panel today and check labs again tomorrow morning. Will have catheter flushed to ensure patency. Assessment and plan reviewed with Dr. Wall. Further orders forthcoming as hospitalization evolves, thank you for allowing us to participate in the care of Mr. Flores. HPI Consult Data Date of Consult: 02/02/25 HPI Narrative HPI Narrative: GANESH FLORES, is a 89 M with past medical history significant for dementia, hypothyroidism who was brought to the emergency room from extended-care facility for confusion and elevated blood pressure. Per custodial patient's systolic blood pressure above 200. Patient was just recently at [facility] from January 01 to January 08, treated for MSSA bacteremia in setting of cellulitis of his foot and left foot osteomyelitis, [place] no vegetation seen but difficult study; patient had PICC line placed and was discharged to [facility] with IV vancomycin with stop date of 02/16/2025. In the emergency room patient's systolic blood pressure 150s. Patient was also found to have new onset A-fib with RVR. Workup in the emergency room also concerning for UTI. Patient was started on gentle IV fluids and admitted for further evaluation and treatment. Nephrology consulted in view of elevated creatinine. Patient's creatinine was 1.8 in the ER, December 30. On January 01 serum creatinine 2.0, no lab work yesterday, today his creatinine is 3.77. Patient is alert and oriented but having difficult time recalling recent events. He does have Holguin. No recent vomiting or diarrhea. [facility] Medical History Osteomyelitis of left foot Agitation due to dementia Closed head injury Fall Dementia Hypothyroidism Home Medications ?Medication ?Instructions ?Recorded ?Last Taken ?Type levothyroxine 150 mcg tablet 150 mcg PO DAILY 01/01/25 Unknown History meloxicam 7.5 mg tablet 7.5 mg PO DAILY 01/01/25 Unk nown History terbinafine HCl 250 mg tablet 250 mg PO DAILY 01/01/25 Unknown History vancomycin 1.25 gram intravenous 1.25 g IV Q24H 39 day s 01/07/25 Unknown Rx solution acetaminophen 500 mg tablet 1,000 mg (2 x 500 mg) PO T ID 30 01/08/25 Unknown Rx days #0 tabs insulin lispro 100 unit/mL See Protocol subcut TIDAC # 0 mL 01/08/25 Unknown Rx subcutaneous pen (Humalog KwikPen (U-100) Insulin) sennosides 8.6 mg-docusate sodium 2 tab PO BID #0 tabs 01/08/25 Unknown Rx 50 mg tablet (Stimulant Laxative Plus) Allergy/AdvReac Type Severity Reaction Status Date / Time shellfish derived Allergy unknown Verified 01/01/25 15:16 Social History Smoking Status: Never smoker ROS ROS Narrative As in HPI Physical Exam Narrative Alert and oriented, confused to recent events. No apparent distress. S1, S2, RRR Lungs sound clear. No wheezes, rales or rhonchi Abdomen soft, nontender, nondistended Trace nonpitting edema bilateral lower legs Indwelling Holguin with straw-colored urine in bag and tubing Lab / Micro Data 02/02/25 05:44 02/02/25 05:44 Labs: Laboratory Results - last 24 hr 02/02/25 05:44: WBC 14.9 H, RBC 3.04 L, Hgb 9.8 L, Hct 29.0 L, MCV 95.4 H, MCH 32.2 H, MCHC 33.8, RDW Std Deviation 45.9 H, RDW Coeff of Gary 13.2, Plt Count 216, MPV 9.5, Immature Gran % (Auto) 2.900 H, Neut % (Auto) 85.2 H, Lymph % (Auto) 5.8 L, [place] % (Auto) 5.2, Eos % (Auto) 0.6, Baso % (Auto) 0.3, Absolute Neuts (auto) 12.7 H, Absolute Lymphs (auto) 0.86, Sodium 139, Potassium 3.9, Chloride 106, Carbon Dioxide 20.0 L, Anion Gap 14, BUN 36 H, Creatinine 3.77 H, Estim Creat Clear Calc 16.81 L, Est GFR (MDRD) Non-Af 15 L, BUN/Creatinine Ratio 9.5 L, Glucose 103 H, Calcium 8.2 Micro: Microbiology 01/30/25 23:25 Blood Culture (Wb) - Left Forearm Blood Culture - Preliminary No growth in 48 hours. 01/30/25 18:25 Blood Culture (Wb) - Left Hand Blood Culture - Preliminary No growth in 48 hours. 01/30/25 19:15 Urine, Catheterized Urine Culture - Final Klebsiella pneumoniae sp pneum
[2025-02-02] MEDS: 0.9% Normal Saline (250mL Bag) 250 ML 15 ML IV (12:20)
[2025-02-02 13:08] LABS: Vancomycin, Random Level 31.7 ug/mL (0.0-15.0); Vancomycin, Trough Level 31.7 ug/mL (5.0-15.0)
[2025-02-02 15:52] VITALS: BP 174/100; PULSE 81; RESP 18; TEMP 36.5; O2SAT 97
--- NOTE | 2025-02-02 18:04 | PCM.PN.HOSP ---
Reason for Visit Chief Complaint: Confusion and elevated BP Subjective Subjective Patient was seen and examined today, his creatinine has elevated further today and I have had nephrology see him in consultation. Patient's blood pressure is also elevated, I placed the patient on Norvasc this afternoon. Objective Data Objective Data Vital Signs: Vital Signs Temp Pulse Resp BP Pulse Ox O2 Del Method O2 Flow Rate 97.7 F L 81 18 174/100 H 97 Nasal Cannula 2 02/02/25 15:52 02/02/25 15:52 02/02/25 15:52 02/02/25 15:52 02/02/25 15:52 02/02/25 15:52 02/02/25 15:52 FiO2 50 01/31/25 08:00 Oxygen Flow Rate (L/min) 2 Oxygen Delivery Method Nasal Cannula Weight: 103 kg Body Mass Index (BMI) 30.7 Intake & Output: Intake and Output for Last 24 Hours 01/31/25 02/01/25 02/02/25 23:59 23:59 23:59 Intake Total 4401 / 4401 4133.33 / 4383.33 1850 / 1850 Output Total 550 / 550 475 / 475 550 / 550 Balance 3851 / 3851 3658.33 / 3908.33 1300 / 1300 Lab / Micro Data 02/02/25 05:44 02/02/25 05:44 Labs: Laboratory Results - last 24 hr 02/02/25 05:44: WBC 14.9 H, RBC 3.04 L, Hgb 9.8 L, Hct 29.0 L, MCV 95.4 H, MCH 32.2 H, MCHC 33.8, RDW Std Deviation 45.9 H, RDW Coeff of Gary 13.2, Plt Count 216, MPV 9.5, Immature Gran % (Auto) 2.900 H, Neut % (Auto) 85.2 H, Lymph % (Auto) 5.8 L, [place] % (Auto) 5.2, Eos % (Auto) 0.6, Baso % (Auto) 0.3, Absolute Neuts (auto) 12.7 H, Absolute Lymphs (auto) 0.86, Sodium 139, Potassium 3.9, Chloride 106, Carbon Dioxide 20.0 L, Anion Gap 14, BUN 36 H, Creatinine 3.77 H, Estim Creat Clear Calc 16.81 L, Est GFR (MDRD) Non-Af 15 L, BUN/Creatinine Ratio 9.5 L, Glucose 103 H, Calcium 8.2 02/02/25 11:40: Vancomycin Trough 31.7 H, Random Vancomycin 31.7 H Micro: Microbiology 01/30/25 23:25 Blood Culture (Wb) - Left Forearm Blood Culture - Preliminary No growth in 48 hours. 01/30/25 18:25 Blood Culture (Wb) - Left Hand Blood Culture - Preliminary No growth in 48 hours. 01/30/25 19:15 Urine, Catheterized Urine Culture - Final Klebsiella pneumoniae sp pneum 01/31/25 02:00 Mucosa - Nasopharyngeal Respiratory Panel (PCR) - Final Physical Exam Narrative alert and no apparent distress Constitutional Narrative: Patient is confused General Appearance: cooperative, well kempt and well developed Orientation / Consciousness: awake HEENT normocephalic, head/scalp atraumatic and moist oral mucous membranes Eyes PERRL, EOMs intact bilaterally and conjunctivae normal Neck supple, no JVD and thyroid normal General: trachea midline Resp normal respiratory effort, no retractions, no use of accessory muscles and clear to auscultation bilaterally Auscultation: Negative for rales, rhonchi or wheezes Cardio regular rate, regular rhythm, S1 normal heart sound, S2 normal heart sound, no murmurs, no rub and no gallops Cardio Narrative: With PACs GI normal to inspection, nondistended, normoactive bowel sounds, soft to palpation, non-tender and non-distended Extremity no clubbing, cyanosis or edema Skin no rashes or lesions noted General Skin Exam: no breakdown Neuro CN's II-XII intact bilaterally, moves all extremities, no focal motor deficits and no sensory deficits noted Neuro Narrative: Patient is confused Sensorium / Orientation: awake and alert Speech: Patient is nonverbal with this examiner Psych Psych Narrative: Patient is confused, patient does not carry on a conversation with this examiner Assessment & Plan Assessment/Plan (1) Sepsis: PLAN: Plan 1. Sepsis secondary to acute cystitis-patient's urine culture grew out Klebsiella pneumonia sensitive to several different antibiotics, I changed the patient to oral antibiotics today-cefdinir #2 paroxysmal atrial fibrillation-patient is currently in sinus rhythm with PACs #3 dementia-I do not believe the patient has encephalopathy, he has a history of dementia. #4 acute anemia-etiology unclear, CBC will be rechecked tomorrow #5 dehydration-I will recheck the patient's BMP tomorrow #6 essential hypertension-patient was placed on Norvasc #7 acute renal failure-etiology unclear, nephrology will be seeing the patient Total clinical time spent by myself addressing the patient's medical issues, reviewing all of his data, and collaborating with patient's care team: 35 minutes Charges/Coding Visit Charges Inpatient E&M: 08475 Subs Hosp L2
[2025-02-02] MEDS: MELATONIN 10 MG TABLET PO (22:51)
[2025-02-02] MEDS: Senna/Docusate Sodium 1 Tablet 2 TABLET PO (22:51)
[2025-02-02 22:58] VITALS: BP 161/91; PULSE 84; RESP 16; TEMP 36.6; O2SAT 98
[2025-02-02 23:00] VITALS: O2SAT 99
[2025-02-03 05:23] VITALS: BP 146/88; PULSE 80; RESP 16; TEMP 36.2; O2SAT 95
[2025-02-03 05:52] VITALS: BMI 30.8
[2025-02-03 06:55] LABS: Anion Gap 12 (5-15); BUN 37 mg/dL (4-19); BUN/Creat Ratio 8.8 RATIO (10-20); Calcium,Total 8.2 mg/dL (7.6-11.0); Carbon Dioxide 22.7 mmol/L (21.0-32.0); Chloride 105 mmol/L (98-108); Estimated Creatinine Clearance 14.86 ml/min (50-250); Glucose 93 mg/dL (70-99); Potassium 4.0 mmol/L (3.3-5.1)
[2025-02-03 07:45] VITALS: BP 147/74; PULSE 79; RESP 14; TEMP 36.5; O2SAT 94
--- NOTE | 2025-02-03 08:28 | WOUNDNOTE ---
wound photo: left foot
[2025-02-03] MEDS: Senna/Docusate Sodium 1 Tablet 2 TABLET PO (09:38)
[2025-02-03] MEDS: APIXABAN 2.5 MG TABLET (WCH) PO ×2 (09:38→21:14)
[2025-02-03] MEDS: Lactated Ringers 1,000 ML 75 ML IV (12:34)
[2025-02-03] MEDS: 0.9% Saline Lock 10 ML Syringe IV (12:35)
[2025-02-03 13:00] VITALS: BP 148/66; PULSE 80; RESP 19; TEMP 36.6; O2SAT 97
--- NOTE | 2025-02-03 14:34 | PCM.PN.HOSP ---
Reason for Visit Chief Complaint: Confusion and elevated BP Subjective Subjective Patient was seen and examined today, patient's vancomycin has been stopped due to his declining renal function, I talked briefly with infectious diseases by telephone today and they recommended placing the patient on Zyvox to complete the course of antibiotics that were started during the patient's last hospitalization. It appears that the patient needs 18 more days of treatment. I placed the patient on Zyvox 600 mg twice a day starting today. Patient has had 5 days of antibiotic coverage for his urinary tract infection, he is currently on cefdinir, I will stop it after 2 days. Objective Data Objective Data Vital Signs: Vital Signs Temp Pulse Resp BP Pulse Ox O2 Del Method O2 Flow Rate 97.7 F L 79 14 147/74 H 94 Nasal Cannula 2 02/03/25 07:45 02/03/25 07:45 02/03/25 07:45 02/03/25 07:45 02/03/25 07:45 02/03/25 09:30 02/03/25 09:43 FiO2 50 01/31/25 08:00 Oxygen Flow Rate (L/min) 2 Oxygen Delivery Method Nasal Cannula Weight: 103.3 kg Body Mass Index (BMI) 30.8 Intake & Output: Intake and Output for Last 24 Hours 02/01/25 02/02/25 02/03/25 23:59 23:59 23:59 Intake Total 4383.33 / 4633.33 3517.5 / 3517.5 1450 / 1450 Output Total 475 / 475 1075 / 1075 1200 / 1200 Balance 3908.33 / 4158.33 2442.5 / 2442.5 250 / 250 Lab / Micro Data 02/02/25 05:44 02/03/25 05:44 Labs: Laboratory Results - last 24 hr 02/02/25 11:40: Complement C3 131, Complement C4 23 02/03/25 05:44: Sodium 140, Potassium 4.0, Chloride 105, Carbon Dioxide 22.7, Anion Gap 12, BUN 37 H, Creatinine 4.27 H, Estim Creat Clear Calc 14.86 L, Est GFR (MDRD) Non-Af 13 L, BUN/Creatinine Ratio 8.8 L, Glucose 93, Calcium 8.2 Micro: Microbiology 01/30/25 23:25 Blood Culture (Wb) - Left Forearm Blood Culture - Preliminary No growth in 48 hours. 01/30/25 18:25 Blood Culture (Wb) - Left Hand Blood Culture - Preliminary No growth in 48 hours. 01/30/25 19:15 Urine, Catheterized Urine Culture - Final Klebsiella pneumoniae sp pneum 01/31/25 02:00 Mucosa - Nasopharyngeal Respiratory Panel (PCR) - Final Physical Exam Narrative alert and no apparent distress Constitutional Narrative: Patient is confused General Appearance: cooperative, well kempt and well developed Orientation / Consciousness: awake HEENT normocephalic, head/scalp atraumatic and moist oral mucous membranes Eyes PERRL, EOMs intact bilaterally and conjunctivae normal Neck supple, no JVD and thyroid normal General: trachea midline Resp normal respiratory effort, no retractions, no use of accessory muscles and clear to auscultation bilaterally Auscultation: Negative for rales, rhonchi or wheezes Cardio regular rate, regular rhythm, S1 normal heart sound, S2 normal heart sound, no murmurs, no rub and no gallops Cardio Narrative: With PACs GI normal to inspection, nondistended, normoactive bowel sounds, soft to palpation, non-tender and non-distended Extremity no clubbing, cyanosis or edema Skin no rashes or lesions noted General Skin Exam: no breakdown Neuro CN's II-XII intact bilaterally, moves all extremities, no focal motor deficits and no sensory deficits noted Neuro Narrative: Patient is confused Sensorium / Orientation: awake and alert Speech: Patient is nonverbal with this examiner Psych Psych Narrative: Patient is confused, he does answer simple questions appropriately Assessment & Plan Assessment/Plan (1) Sepsis: PLAN: Plan 1. Sepsis secondary to acute cystitis-patient's urine culture grew out Klebsiella pneumonia sensitive to several different antibiotics, patient is on cefdinir presently, I will discontinue it after the dose on 02/06/2025. #2 paroxysmal atrial fibrillation-patient is currently in sinus rhythm with PACs #3 dementia-I do not believe the patient has encephalopathy, he has a history of dementia. #4 acute anemia-etiology unclear, CBC will be rechecked tomorrow #5 dehydration-I will recheck the patient's BMP tomorrow #6 essential hypertension-patient was placed on Norvasc #7 acute renal failure-likely secondary to vancomycin usage for his MRSA bacteremia #8 MRSA bacteremia-patient will need 18 more days of coverage with Zyvox orally, I started this today Total clinical time spent by myself addressing the patient's medical issues, reviewing all of his data, and collaborating with patient's care team: 35 minutes Charges/Coding Visit Charges Inpatient E&M: 53717 Subs Hosp L2
--- NOTE | 2025-02-03 14:54 | CASEMGMT ---
Discharge Planning Updates sent to [facility]. Rosalia Medina DC Planning Asst.
--- NOTE | 2025-02-03 15:10 | PCM.PN.REN ---
Subjective Subjective no new events Objective Data Objective Data Vital Signs: Vital Signs Temp Pulse Resp BP Pulse Ox O2 Del Method O2 Flow Rate 97.7 F L 79 14 147/74 H 94 Nasal Cannula 2 02/03/25 07:45 02/03/25 07:45 02/03/25 07:45 02/03/25 07:45 02/03/25 07:45 02/03/25 09:30 02/03/25 09:43 FiO2 50 01/31/25 08:00 Oxygen Flow Rate (L/min) 2 Oxygen Delivery Method Nasal Cannula Weight: 103.3 kg Body Mass Index (BMI) 30.8 Intake & Output: Intake and Output for Last 24 Hours 02/01/25 02/02/25 02/03/25 23:59 23:59 23:59 Intake Total 4383.33 / 4633.33 3517.5 / 3517.5 1450 / 1450 Output Total 475 / 475 1075 / 1075 1200 / 1200 Balance 3908.33 / 4158.33 2442.5 / 2442.5 250 / 250 Lab / Micro Data 02/02/25 05:44 02/03/25 05:44 Labs: Laboratory Results - last 24 hr 02/02/25 11:40: Complement C3 131, Complement C4 23 02/03/25 05:44: Sodium 140, Potassium 4.0, Chloride 105, Carbon Dioxide 22.7, Anion Gap 12, BUN 37 H, Creatinine 4.27 H, Estim Creat Clear Calc 14.86 L, Est GFR (MDRD) Non-Af 13 L, BUN/Creatinine Ratio 8.8 L, Glucose 93, Calcium 8.2 Micro: Microbiology 01/30/25 23:25 Blood Culture (Wb) - Left Forearm Blood Culture - Preliminary No growth in 48 hours. 01/30/25 18:25 Blood Culture (Wb) - Left Hand Blood Culture - Preliminary No growth in 48 hours. 01/30/25 19:15 Urine, Catheterized Urine Culture - Final Klebsiella pneumoniae sp pneum 01/31/25 02:00 Mucosa - Nasopharyngeal Respiratory Panel (PCR) - Final Physical Exam Narrative Alert and oriented, confused to recent events. No apparent distress. S1, S2, RRR Lungs sound clear. No wheezes, rales or rhonchi Abdomen soft, nontender, nondistended Trace nonpitting edema bilateral lower legs Indwelling Holguin with straw-colored urine in bag and tubing Assessment & Plan Assessment/Plan (1) Acute kidney injury: PLAN: This is an 89-year-old male with past medical history significant for dementia, hypothyroidism who was brought to the emergency room from extended-care facility for confusion and elevated blood pressure. Per [facility] patient's systolic blood pressure above 200. Patient was just recently at [facility] from January 01 to January 08, treated for MSSA bacteremia in setting of cellulitis of his foot and left foot osteomyelitis, [place] no vegetation seen but difficult study; patient had PICC line placed and was discharged to [facility] with IV vancomycin with stop date of 02/16/2025. Nephrology consulted in view of elevated creatinine. Creatinine was 1.8 in the ER and today creatinine is up to 3.77. Baseline creatinine is ranging around 1.1 to 1.3 mg/dL. During his last hospitalization, creatinine was 1.9 on admission and by time of hospital discharge creatinine 1.06 on January 08. Patient is nonoliguric, Holguin in place, urine is straw colored. Renal ultrasound no hydronephrosis. No recent contrast studies. UA positive leukocyte esterase and blood but this was a catheter specimen. vanco levels came back at [address] Nash. being switched o zyvox today non oliguric likely ATN complements ok
--- NOTE | 2025-02-03 15:11 | CASEMGMT ---
Social Work- SW received notice that pt remains medically unstable and not ready for discharge. HEATHER collaborated with [facility] on discharge planning. HEATHER remains available to follow. Plan: JAZMYN; return to skilled level of care [facility] [place]
[2025-02-03 16:51] VITALS: BP 151/85; PULSE 75; RESP 18; TEMP 36.6; O2SAT 95
[2025-02-03 20:59] VITALS: BP 138/74; PULSE 79; RESP 18; TEMP 36.6; O2SAT 95
[2025-02-03] MEDS: MELATONIN 10 MG TABLET PO (21:15)
[2025-02-04] MEDS: 0.9 % NaCl (Sterile) Posiflush 10 mL IV (01:52)
[2025-02-04] MEDS: Lactated Ringers 1,000 ML 75 ML IV ×2 (01:53→13:27)
[2025-02-04 02:00] VITALS: BP 150/86; PULSE 89; RESP 19; TEMP 37.1; O2SAT 93
[2025-02-04 02:09] VITALS: BMI 30.8
[2025-02-04 05:00] LABS: Anion Gap 9 (5-15); BUN 38 mg/dL (4-19); BUN/Creat Ratio 8.5 RATIO (10-20); Calcium,Total 7.8 mg/dL (7.6-11.0); Carbon Dioxide 22.9 mmol/L (21.0-32.0); Chloride 107 mmol/L (98-108); Estimated Creatinine Clearance 14.16 ml/min (50-250); Glucose 126 mg/dL (70-99); Potassium 3.8 mmol/L (3.3-5.1)
[2025-02-04 07:50] VITALS: O2SAT 99
[2025-02-04 09:00] VITALS: BP 172/101; PULSE 44; RESP 14; TEMP 36.4; O2SAT 96
[2025-02-04] MEDS: APIXABAN 2.5 MG TABLET (WCH) PO ×2 (09:07→21:27)
[2025-02-04] MEDS: Senna/Docusate Sodium 1 Tablet 2 TABLET PO ×2 (09:08→21:23)
[2025-02-04] MEDS: Ensure Plus High Protein 120 ML LIQUID PO ×2 (09:08→15:51)
--- NOTE | 2025-02-04 13:54 | CON.PCM.ID_ITS ---
Assessment & Plan Assessment/Plan (1) Acute kidney injury: (2) Osteomyelitis of left foot: PLAN: Admitted 12/2024 with sepsis due to L foot osteo complicated by mssa bacteremia. One wound cx with MRSA and one also with MRSE. Pt is DNR-CC. OR 12/05/[address] Forman. Due to CASEY, vanc changed to linezolid, same stop date 02/16/25. Will follow, thank you HPI Consult Data Date of Consult: 02/04/25 HPI Narrative Reason for Consultation: osteo HPI Narrative: GANESH FLORES, is a 89 M who presented from [facility] 12/2024 with sepsis due to L foot osteo complicated by mssa bacteremia. One wound cx with MRSA and one also with MRSE. Pt is DNR-CC. OR 12/05/[address] Forman. Bcx neg cleared 01/05. No veg seen on TTE but difficult study. Discharged on 6 weeks iv vanc , stop date 02/16/25. Readmitted 01/30 with altered mental status, CASEY from [facility]. Now on linezolid, neph following. ROS unobtainable due to mental status [facility] Medical History (Updated 02/04/25 @ 13:[address] Juanjo Arias MD) Osteomyelitis of left foot Agitation due to dementia Closed head injury Fall Dementia Hypothyroidism Home Medications ?Medication ?Instructions ?Recorded ?Last Taken ?Type levothyroxine 150 mcg tablet 150 mcg PO DAILY 01/01/25 Unknown History meloxicam 7.5 mg tablet 7.5 mg PO DAILY 01/01/25 Unk nown History terbinafine HCl 250 mg tablet 250 mg PO DAILY 01/01/25 Unknown History vancomycin 1.25 gram intravenous 1.25 g IV Q24H 39 day s 01/07/25 Unknown Rx solution acetaminophen 500 mg tablet 1,000 mg (2 x 500 mg) PO T ID 30 01/08/25 Unknown Rx days #0 tabs insulin lispro 100 unit/mL See Protocol subcut TIDAC # 0 mL 01/08/25 Unknown Rx subcutaneous pen (Humalog KwikPen (U-100) Insulin) sennosides 8.6 mg-docusate sodium 2 tab PO BID #0 tabs 01/08/25 Unknown Rx 50 mg tablet (Stimulant Laxative Plus) Allergy/AdvReac Type Severity Reaction Status Date / Time shellfish derived Allergy unknown Verified 01/01/25 15:16 Social History Smoking Status: Never smoker Physical Exam Const General Appearance: lethargic HEENT normocephalic and head/scalp atraumatic Eyes PERRL and EOMs intact bilaterally Neck supple and No nodes Resp normal air movement and clear to auscultation bilaterally Cardio regular rate and regular rhythm GI soft to palpation, non-tender and non-distended Extremity General Extremity: Negative for edema Skin Skin Narrative: reviewed photos Neuro CN's II-XII intact bilaterally Lab / Micro Data Attestation: I reviewed the patient's lab results. 02/02/25 05:44 02/04/25 04:02 Labs: Laboratory Results - last 24 hr 02/04/25 04:02: Sodium 139, Potassium 3.8, Chloride 107, Carbon Dioxide 22.9, Anion Gap 9, BUN 38 H, Creatinine 4.48 H, Estim Creat Clear Calc 14.16 L, Est GFR (MDRD) Non-Af 12 L, BUN/Creatinine Ratio 8.5 L, Glucose 126 H, Calcium 7.8
[2025-02-04 14:26] VITALS: BP 174/90; PULSE 74; RESP 16; TEMP 36.7; O2SAT 93
--- NOTE | 2025-02-04 14:47 | PN.HOSP_ITS ---
Reason for Visit Chief Complaint: Confusion and elevated BP Objective Data Objective Data Vital Signs: Vital Signs Temp Pulse Resp BP Pulse Ox O2 Del Method O2 Flow Rate 98.1 F 74 16 174/90 H 93 Nasal Cannula 3 02/04/25 14:26 02/04/25 14:26 02/04/25 14:26 02/04/25 14:26 02/04/25 14:26 02/04/25 14:26 02/04/25 14:26 FiO2 50 01/31/25 08:00 Oxygen Flow Rate (L/min) 3 Oxygen Delivery Method Nasal Cannula Weight: 227 lb 8.273 oz Body Mass Index (BMI) 30.8 Intake & Output: Intake and Output for Last 24 Hours 02/02/25 02/03/25 02/04/25 23:59 23:59 23:59 Intake Total 3517.5 / 3517.5 1875 / 2075 2186.25 / 2186.25 Output Total 1075 / 1075 1475 / 1825 1650 / 1650 Balance 2442.5 / 2442.5 400 / 250 536.25 / 536.25 Lab / Micro Data 02/02/25 05:44 02/04/25 04:02 Labs: Laboratory Results - last 24 hr 02/04/25 04:02: Sodium 139, Potassium 3.8, Chloride 107, Carbon Dioxide 22.9, Anion Gap 9, BUN 38 H, Creatinine 4.48 H, Estim Creat Clear Calc 14.16 L, Est GFR (MDRD) Non-Af 12 L, BUN/Creatinine Ratio 8.5 L, Glucose 126 H, Calcium 7.8 Micro: Microbiology 01/30/25 23:25 Blood Culture (Wb) - Left Forearm Blood Culture - Preliminary No growth in 48 hours. 01/30/25 18:25 Blood Culture (Wb) - Left Hand Blood Culture - Preliminary No growth in 48 hours. 01/30/25 19:15 Urine, Catheterized Urine Culture - Final Klebsiella pneumoniae sp pneum 01/31/25 02:00 Mucosa - Nasopharyngeal Respiratory Panel (PCR) - Final Physical Exam Narrative Seen and examined. Patient also had thick chunky bloody sputum. Patient was admitted in December 2024 for left foot ulcer and at that time was discharged on vancomycin for MRSA bacteremia after complete workup as per ID recommendation. At this time patient admitted with altered mental status and metoprolol blood pressure. Mild CASEY and vancomycin changed to Zyvox. Blood pressure is also high. Physical exam General: Alert, Oriented x3, Cooperative HEENT: Atraumatic, PERRLA, EOMI, Normocephalic. Oral: No Gingival or Mucosal Lesions/ Ulcerations Neck: Supple, No JVD, Negative Carotid Bruits Chest wall/Lungs: Air entry diminished in bilateral lung bases. No crepitation/rhonchi Cardiovascular: Irregular rate and rhythm, No M/G/R Abdomen: Bowel Sounds Present, Soft, Non Tender, Non-Distended : Holguin catheter. No renal angle tenderness. No suprapubic tenderness. Extremities: Mild edema Skin: Left foot bandage. Left foot ulcer status post excision and primary closure in December 2025 Musculoskeletal: ROM limited at knees and hip joints. Decreased muscle mass. No Tenderness to Palpation of Joints or Extremities Neurological: Cranial nerves II-XII grossly intact, DTR 2+/4. No acute focal neurological deficit. Psych/Mental Status: Normal Affect, Appropriate. Assessment & Plan Assessment/Plan (1) Sepsis: PLAN: Plan This 89-year-old gentleman admitted with altered mental status, had low blood pressure in the beginning but high blood pressure now from group home and CASEY. 1. Sepsis secondary to acute cystitis-patient's urine culture grew out Klebsiella pneumonia sensitive to several different antibiotics, cefdinir changed to IV ceftriaxone. ID consult reviewed. Continue linezolid to stop date 02/16/2025. #2 paroxysmal atrial fibrillation-patient is in A-fib. Blood pressure is high. IV labetalol as needed ordered #3 dementia-patient has advanced dementia. #4 acute anemia-etiology unclear, CBC ordered #5. Dehydration-BUN/creatinine ratio 8.5 low, clinically patient does not have dehydration. Dehydration corrected #6 essential hypertension-patient was placed on Norvasc. 02/04 blood pressure is high. On labetalol. Started on scheduled carvedilol #7 acute renal failure-likely secondary to vancomycin usage for his MRSA bacteremia 02/04: Logistics Supervisor is following. His creatinine is going up suspected ATN with BUN/creatinine ratio less than 20. Urine osmolality and electrolytes ordered. #8 MRSA bacteremia-ID consult reviewed. Repeat blood cultures negative on 01/30/2025. stop date for linezolid 02/08/2025 Microbiology Past 72 Hours 01/30/25 23:25 Blood Culture (Wb) - Left Forearm Blood Culture - Preliminary No growth in 48 hours. 01/30/25 18:25 Blood Culture (Wb) - Left Hand Blood Culture - Preliminary No growth in 48 hours. Laboratory Results 02/04/25 04:02: Sodium 139, Potassium 3.8, Chloride 107, Carbon Dioxide 22.9, Anion Gap 9, BUN 38 H, Creatinine 4.48 H, Estim Creat Clear Calc 14.16 L, Est GFR (MDRD) Non-Af 12 L, BUN/Creatinine Ratio 8.5 L, Glucose 126 H, Calcium 7.8 Charges/Coding Visit Charges Inpatient E&M: 63404 Subs Hosp L2
[2025-02-04] MEDS: 0.45% Normal Saline 1,000 ML 75 ML IV (15:40)
--- NOTE | 2025-02-04 16:08 | PN.RENAL_ITS ---
Subjective Subjective no new complaints Objective Data Objective Data Vital Signs: Vital Signs Temp Pulse Resp BP Pulse Ox O2 Del Method O2 Flow Rate 98.1 F 74 16 174/90 H 93 Nasal Cannula 3 02/04/25 14:26 02/04/25 14:26 02/04/25 14:26 02/04/25 14:26 02/04/25 14:26 02/04/25 14:26 02/04/25 14:26 FiO2 50 01/31/25 08:00 Oxygen Flow Rate (L/min) 3 Oxygen Delivery Method Nasal Cannula Weight: 103.2 kg Body Mass Index (BMI) 30.8 Intake & Output: Intake and Output for Last 24 Hours 02/02/25 02/03/25 02/04/25 23:59 23:59 23:59 Intake Total 3517.5 / 3517.5 1875 / 2075 2365.00 / 2365.00 Output Total 1075 / 1075 1475 / 1825 1650 / 1650 Balance 2442.5 / 2442.5 400 / 250 715.00 / 715.00 Lab / Micro Data 02/02/25 05:44 02/04/25 04:02 Labs: Laboratory Results - last 24 hr 02/04/25 04:02: Sodium 139, Potassium 3.8, Chloride 107, Carbon Dioxide 22.9, Anion Gap 9, BUN 38 H, Creatinine 4.48 H, Estim Creat Clear Calc 14.16 L, Est GFR (MDRD) Non-Af 12 L, BUN/Creatinine Ratio 8.5 L, Glucose 126 H, Calcium 7.8 Micro: Microbiology 01/30/25 23:25 Blood Culture (Wb) - Left Forearm Blood Culture - Preliminary No growth in 48 hours. 01/30/25 18:25 Blood Culture (Wb) - Left Hand Blood Culture - Preliminary No growth in 48 hours. 01/30/25 19:15 Urine, Catheterized Urine Culture - Final Klebsiella pneumoniae sp pneum 01/31/25 02:00 Mucosa - Nasopharyngeal Respiratory Panel (PCR) - Final Physical Exam Narrative Alert and oriented, confused to recent events. No apparent distress. S1, S2, RRR Lungs sound clear. No wheezes, rales or rhonchi Abdomen soft, nontender, nondistended Trace nonpitting edema bilateral lower legs Indwelling Holguin with straw-colored urine in bag and tubing Assessment & Plan Assessment/Plan (1) Acute kidney injury: PLAN: This is an 89-year-old male with past medical history significant for dementia, hypothyroidism who was brought to the emergency room from extended- care facility for confusion and elevated blood pressure. Per long term patient's systolic blood pressure above 200. Patient was just recently at [facility] from January 01 to January 08, treated for MSSA bacteremia in setting of cellulitis of his foot and left foot osteomyelitis, [place] no vegetation seen but difficult study; patient had PICC line placed and was discharged to [facility] with IV vancomycin with stop date of 02/16/2025. Nephrology consulted in view of elevated creatinine. Creatinine was 1.8 in the ER and today creatinine is up to 3.77. Baseline creatinine is ranging around 1.1 to 1.3 mg/dL. During his last hospitalization, creatinine was 1.9 on admission and by time of hospital discharge creatinine 1.06 on January 08. presumably ATN non oliguric hopefully cr peak soon
[2025-02-04 17:30] LABS: Hematocrit 29.3 % (40-54); Hemoglobin 9.8 g/dL (13.0-16.5); Mean Corp Hgb Conc 33.4 g/dL (32-36); Mean Corpuscular Volume 93.9 fL (80-94); Mean Platelet Vol. 9.0 fl (6.2-12.0); POSITIVE COUNT YES; POSITIVE MORPHOLOGY YES; Platelet Count 193 K/mm3 (150-450); RBC Distribution Width CV 12.9 % (11.6-14.6); RBC Distribution Width SD 44.0 fl (35.1-43.9); Red Blood Count 3.12 M/mm3 (4.6-6.2); White Blood Count 12.3 K/mm3 (4.4-11.0)
[2025-02-04 17:32] LABS: Differential Indicated MANUAL DIFF
[2025-02-04 20:00] LABS: Neutrophil-Band 8 % (0-5); Neutrophil-Segmented 85 % (47-70); Total Cells Counted 100 (MANUAL DIFF)
[2025-02-04 20:10] VITALS: BP 147/83; PULSE 73; RESP 19; TEMP 36.4; O2SAT 97
[2025-02-04 21:04] LABS: Creatinine, Urine (random) 32.90 mg/dL (39.00-259.00); Protein, Urine (Random) 12.3 mg/dL (0.0-12.0); Protein:Creat Ratio 374 mg/g CRE (0-200)
[2025-02-04 21:20] LABS: Microalbumin,Random Urine 26.2 mg/L (<20 mg/L)
[2025-02-04] MEDS: MELATONIN 10 MG TABLET PO (21:24)
[2025-02-04 21:29] LABS: Osmolality, Urine 286 mOsm/KG
[2025-02-05] VITALS (7 sets, daily range): BP systolic 115–151; BP diastolic 70–97; PULSE 72–89; RESP 18; TEMP 36.6–37.1; O2SAT 94–98; BMI 30.9
[2025-02-05 06:01] LABS: Hematocrit 26.9 % (40-54); Hemoglobin 8.9 g/dL (13.0-16.5); Mean Corp Hgb Conc 33.1 g/dL (32-36); Mean Corpuscular Volume 93.7 fL (80-94); Mean Platelet Vol. 9.4 fl (6.2-12.0); POSITIVE COUNT YES; POSITIVE MORPHOLOGY YES; Platelet Count 177 K/mm3 (150-450); RBC Distribution Width CV 12.8 % (11.6-14.6); RBC Distribution Width SD 43.7 fl (35.1-43.9); Red Blood Count 2.87 M/mm3 (4.6-6.2); White Blood Count 11.0 K/mm3 (4.4-11.0)
[2025-02-05 06:03] LABS: Differential Indicated MANUAL DIFF
[2025-02-05 06:30] LABS: Anion Gap 10 (5-15); BUN 38 mg/dL (4-19); BUN/Creat Ratio 8.2 RATIO (10-20); Calcium,Total 8.1 mg/dL (7.6-11.0); Carbon Dioxide 23.1 mmol/L (21.0-32.0); Chloride 106 mmol/L (98-108); Estimated Creatinine Clearance 13.74 ml/min (50-250); Glucose 122 mg/dL (70-99); Potassium 3.7 mmol/L (3.3-5.1)
[2025-02-05 07:08] LABS: Neutrophil-Segmented 89 % (47-70); Total Cells Counted 100 (MANUAL DIFF)
[2025-02-05 07:09] LABS: Red Cell Morphology NORM C+C NORMAL (NORM C&C)
[2025-02-05] MEDS: Senna/Docusate Sodium 1 Tablet 2 TABLET PO ×2 (09:17→21:17)
[2025-02-05] MEDS: Ensure Plus High Protein 120 ML LIQUID PO ×2 (09:17→11:56)
[2025-02-05] MEDS: APIXABAN 2.5 MG TABLET (WCH) PO ×2 (09:19→21:36)
[2025-02-05] MEDS: 0.9% Normal Saline (250mL Bag) 250 ML 15 ML IV (09:20)
[2025-02-05] MEDS: 0.9 % NaCl (Sterile) Posiflush 10 mL IV ×2 (09:21→10:16)
--- NOTE | 2025-02-05 15:26 | PN.HOSP_ITS ---
Reason for Visit Chief Complaint: Confusion and elevated BP Objective Data Objective Data Vital Signs: Vital Signs Temp Pulse Resp BP Pulse Ox O2 Del Method O2 Flow Rate 98.8 F 80 18 139/94 H 96 Nasal Cannula 2 02/05/25 14:50 02/05/25 15:18 02/05/25 14:50 02/05/25 14:50 02/05/25 14:50 02/05/25 15:18 02/05/25 14:50 FiO2 50 01/31/25 08:00 Oxygen Flow Rate (L/min) 2 Oxygen Delivery Method Nasal Cannula Weight: 227 lb 15.327 oz Body Mass Index (BMI) 30.9 Intake & Output: Intake and Output for Last 24 Hours 02/03/25 02/04/25 02/05/25 23:59 23:59 23:59 Intake Total 1875 / 2075 2815.00 / 3015.00 1718.75 / 1718.75 Output Total 1475 / 1825 2500 / 2500 1025 / 1025 Balance 400 / 250 315.00 / 515.00 693.75 / 693.75 Lab / Micro Data 02/05/25 05:37 02/05/25 05:37 Labs: Laboratory Results - last 24 hr 02/04/25 17:03: WBC 12.3 H, RBC 3.12 L, Hgb 9.8 L, Hct 29.3 L, MCV 93.9, MCH 31.4, MCHC 33.4, RDW Std Deviation 44.0 H, RDW Coeff of Gary 12.9, Plt Count 193, MPV 9.0, Neut % (Auto) Not Reportable, Absolute Neuts (auto) 11.4 H, Absolute Lymphs (auto) 0.25 L, Total Counted 100, Neutrophils % (Manual) 85 H, Band Neutrophils % 8 H, Lymphocytes % (Manual) 2 L, Monocytes % (Manual) 1, M etamyelocytes % 2 H, Myelocytes % 2 H, Platelet Estimate ADEQUATE 02/04/25 20:00: Urine Osmolality 286, Ur Random Microalbumin 26.2, U Random Total Protein 12.3 H, Ur Random Sodium 97, Urine Creatinine 32.90 L, P rotein/Creatinin Ratio 374 H, Urine Potassium 15.2, Urine Chloride 92 02/05/25 05:37: WBC 11.0, RBC 2.87 L, Hgb 8.9 L, Hct 26.9 L, MCV 93.7, MCH 31.0, MCHC 33.1, RDW Std Deviation 43.7, RDW Coeff of Gary 12.8, Plt Count 177, MPV 9.4, Neut % (Auto) Not Reportable, Absolute Neuts (auto) 9.8 H, Absolute Lymphs (auto) 0.76 L, Total Counted 100, Neutrophils % (Manual) 89 H, Lymphocytes % (Manual) 7 L, Monocytes % (Manual) 1, Eosinophils % (Manual) 1, Metamyelocytes % 2 H, Platelet Estimate ADEQUATE, RBC Morphology NORM C+C, Sodium 139, Potassium 3.7, Chloride 106, Carbon Dioxide 23.1, Anion Gap 10, BUN 38 H, Creatinine 4.62 H, Estim Creat Clear Calc 13.74 L, Est GFR (MDRD) Non-Af 12 L, BUN/Creatinine Ratio 8.2 L, Glucose 122 H, Calcium 8.1 Micro: Microbiology 01/30/25 18:25 Blood Culture (Wb) - Left Hand Blood Culture - Final No growth in 5 days. 01/30/25 23:25 Blood Culture (Wb) - Left Forearm Blood Culture - Final No growth in 5 days. 01/30/25 19:15 Urine, Catheterized Urine Culture - Final Klebsiella pneumoniae sp pneum 01/31/25 02:00 Mucosa - Nasopharyngeal Respiratory Panel (PCR) - Final Physical Exam Narrative Seen and examined. No fever. Discussed with the transportation security officer for increasing creatinine. Nonoliguric CASEY probably progressing to ATN. Patient was admitted in December 2024 for left foot ulcer and at that time was discharged on vancomycin for MRSA bacteremia after complete workup as per ID recommendation. At this time patient admitted with altered mental status and metoprolol blood pressure. Physical exam General: Alert, Oriented x3, Cooperative HEENT: Atraumatic, PERRLA, EOMI, Normocephalic. Oral: No Gingival or Mucosal Lesions/ Ulcerations Neck: Supple, No JVD, Negative Carotid Bruits Chest wall/Lungs: Air entry diminished in bilateral lung bases. No crepitation/rhonchi Cardiovascular: Irregular rate and rhythm, No M/G/R Abdomen: Bowel Sounds Present, Soft, Non Tender, Non-Distended : Holguin catheter. No renal angle tenderness. No suprapubic tenderness. Extremities: Mild edema Skin: Left foot bandage. Left foot ulcer status post excision and primary closure in December 2025 Musculoskeletal: ROM limited at knees and hip joints. Decreased muscle mass. No Tenderness to Palpation of Joints or Extremities Neurological: Cranial nerves II-XII grossly intact, DTR 2+/4. No acute focal neurological deficit. Psych/Mental Status: Normal Affect, Appropriate. Assessment & Plan Assessment/Plan (1) Sepsis: PLAN: Plan This 89-year-old gentleman admitted with altered mental status, had low blood pressure in the beginning but high blood pressure now from [facility] and [facility]. 1. Sepsis secondary to acute cystitis-patient's urine culture grew out Klebsiella pneumonia sensitive to several different antibiotics, cefdinir changed to IV ceftriaxone. ID consult reviewed. Continue linezolid to stop date 02/16/2025. #2. Paroxysmal atrial fibrillation-patient is in A-fib. Blood pressure is high. IV labetalol as needed ordered. Heart rate controlled. On Eliquis 2.5 mg twice daily #3. Dementia-patient has advanced dementia. #4. Acute anemia-etiology unclear, 02/05: Leukocytosis resolved. ANC elevated, manual 89%, ALC low. Metamyelocyte 2%. H&H 8.9/27% % #5. Dehydration-BUN/creatinine ratio 8.5 low, clinically patient does not have dehydration. Dehydration corrected #6 essential hypertension-patient was placed on Norvasc. 02/04 blood pressure is high. On labetalol. Started on scheduled carvedilol 02/05 blood pressure is controlled, systolic 130s. #7 acute renal failure-likely secondary to vancomycin usage for his MRSA bacteremia 02/04: Wire Mesh Filter Fabricator is following. His creatinine is going up suspected ATN with BUN/creatinine ratio less than 20. Urine osmolality and electrolytes ordered. 02/05: Creatinine went up to 4.63. Discussed with the transportation security officer. Nonoliguric ATN, presumably ATN. Urine studies shows osmolality 286, random microalbumin 26.2, protein elevated 12.3. Protein creatinine ratio 374. #8 MRSA bacteremia-ID consult reviewed. Repeat blood cultures negative on 01/30/2025. stop date for linezolid 02/08/2025 7/ during previous hospitalization he had workup which showed no vegetation on [place]. DVT prophylaxis: On Eliquis 2.5 mg twice daily 02/04/25 17:03: WBC 12.3 H, RBC 3.12 L, Hgb 9.8 L, Hct 29.3 L, MCV 93.9, MCH 31.4, MCHC 33.4, RDW Std Deviation 44.0 H, RDW Coeff of Gary 12.9, Plt Count 193, MPV 9.0, Neut % (Auto) Not Reportable, Absolute Neuts (auto) 11.4 H, Absolute Lymphs (auto) 0.25 L, Total Counted 100, Neutrophils % (Manual) 85 H, Band Neutrophils % 8 H, Lymphocytes % (Manual) 2 L, Monocytes % (Manual) 1, M etamyelocytes % 2 H, Myelocytes % 2 H, Platelet Estimate ADEQUATE 02/04/25 20:00: Urine Osmolality 286, Ur Random Microalbumin 26.2, U Random Total Protein 12.3 H, Ur Random Sodium 97, Urine Creatinine 32.90 L, P rotein/Creatinin Ratio 374 H, Urine Potassium 15.2, Urine Chloride 92 02/05/25 05:37: WBC 11.0, RBC 2.87 L, Hgb 8.9 L, Hct 26.9 L, MCV 93.7, MCH 31.0, MCHC 33.1, RDW Std Deviation 43.7, RDW Coeff of Gary 12.8, Plt Count 177, MPV 9.4, Neut % (Auto) Not Reportable, Absolute Neuts (auto) 9.8 H, Absolute Lymphs (auto) 0.76 L, Total Counted 100, Neutrophils % (Manual) 89 H, Lymphocytes % (Manual) 7 L, Monocytes % (Manual) 1, Eosinophils % (Manual) 1, Metamyelocytes % 2 H, Platelet Estimate ADEQUATE, RBC Morphology NORM C+C, Sodium 139, Potassium 3.7, Chloride 106, Carbon Dioxide 23.1, Anion Gap 10, BUN 38 H, Creatinine 4.62 H, Estim Creat Clear Calc 13.74 L, Est GFR (MDRD) Non-Af 12 L, BUN/Creatinine Ratio 8.2 L, Glucose 122 H, Calcium 8.1 Charges/Coding Visit Charges Inpatient E&M: 77765 Subs Hosp L2
--- NOTE | 2025-02-05 16:15 | RAD_ITS ---
PROCEDURE: CHEST 1 VIEW (PORTABLE) 02/05/2025 REASON FOR EXAM: SHORTNESS OF BREATH TECHNIQUE: Frontal view of the chest. COMPARISON: Chest radiograph 01/30/2025 FINDINGS: Hardware: None Heart: Cardiac and mediastinal contours are enlarged. Aortic atherosclerosis. Lungs: There is increased opacity throughout both lungs, most notably in the perihilar regions and right lung base, new from 01/30/2025. Probable bilateral pleural effusions. Nodular opacity in the right upper lung zone measuring 5 mm remains unchanged. Bones: Right humeral head surgical anchors. Degenerative changes are identified within the thoracic spine. RAD/Chest 1 View (Portable) IMPRESSION: 1. New airspace and interstitial opacities bilaterally since 01/30/2025, which may represent infection, edema, and/or lung injury. 2. Probable bilateral pleural effusions. Reading Location: [id number]
[2025-02-05] MEDS: MELATONIN 10 MG TABLET PO (21:17)
[2025-02-05] MEDS: 0.9% Saline Lock 10 ML Syringe IV (21:23)
[2025-02-06 03:21] VITALS: BP 127/87; PULSE 73; RESP 16; TEMP 36.3; O2SAT 95
[2025-02-06 06:00] VITALS: BMI 30.7
[2025-02-06 06:58] LABS: Hematocrit 26.3 % (40-54); Hemoglobin 8.9 g/dL (13.0-16.5); Mean Corp Hgb Conc 33.8 g/dL (32-36); Mean Corpuscular Volume 92.3 fL (80-94); Mean Platelet Vol. 9.2 fl (6.2-12.0); POSITIVE COUNT YES; POSITIVE MORPHOLOGY YES; Platelet Count 194 K/mm3 (150-450); RBC Distribution Width CV 13.1 % (11.6-14.6); RBC Distribution Width SD 43.7 fl (35.1-43.9); Red Blood Count 2.85 M/mm3 (4.6-6.2); White Blood Count 12.0 K/mm3 (4.4-11.0)
[2025-02-06 07:16] LABS: Anion Gap 11 (5-15); BUN 41 mg/dL (4-19); BUN/Creat Ratio 8.6 RATIO (10-20); Calcium,Total 8.2 mg/dL (7.6-11.0); Carbon Dioxide 22.2 mmol/L (21.0-32.0); Chloride 105 mmol/L (98-108); Estimated Creatinine Clearance 13.37 ml/min (50-250); Glucose 131 mg/dL (70-99); Potassium 3.9 mmol/L (3.3-5.1)
[2025-02-06 07:32] LABS: Differential Indicated MANUAL DIFF
[2025-02-06 07:47] LABS: Neutrophil-Band 1 % (0-5); Neutrophil-Segmented 88 % (47-70); Total Cells Counted 100 (MANUAL DIFF)
[2025-02-06 07:48] LABS: Red Cell Morphology NORM C+C NORMAL (NORM C&C)
[2025-02-06 09:00] VITALS: PULSE 74; RESP 18; O2SAT 97
[2025-02-06 09:20] VITALS: BP 141/82; PULSE 78; RESP 18; TEMP 37.1; O2SAT 97
[2025-02-06] MEDS: Senna/Docusate Sodium 1 Tablet 2 TABLET PO (10:04)
[2025-02-06] MEDS: APIXABAN 2.5 MG TABLET (WCH) PO (10:04)
--- NOTE | 2025-02-06 10:18 | PCM.TXEXTCAR ---
Diet Diet Order/Speech Therapy: INPATIENT Hospital Diet / Speech Therapy Order(s) 02/06/25 12:51 Diet: Regular - General Type of Dietary Supplement:: Magic Cup Dessert Diet Comments: magic cup w/ lunch and dinner Speech Therapy Comments: Feed Routine Orders/Code Status Suppository Type: Dulcolax 10mg Suppository Frequency: Daily PRN Routine Lab Work: BMP (TWICE week on Sunday and Sunday, next on 02/10) DC O2, CPAP, BIPAP needs Home O2 Discharge instructions: Yes Type of respiratory needs?: Oxygen Oxygen frequency: Continuous Continuous oxygen liters per minute: 2 Wound(s) left foot: Wound Type: Surgical Incision Dressing Change: betadine Adaptic Therapies Extremity Affected:: Bilateral Lower Physical Therapy: Eval and Treat Occupational Therapy: Eval and Treat Speech Therapy: Eval and Treat Problem/Diagnosis (1) Sepsis: Status: Acute Code(s): A41.9 - Sepsis, unspecified organism Plan This 89-year-old gentleman admitted with altered mental status, had low blood pressure in the beginning but high blood pressure now from [facility] and [facility]. 1. Sepsis secondary to acute cystitis-patient's urine culture grew out Klebsiella pneumonia sensitive to several different antibiotics, cefdinir changed to IV ceftriaxone. ID consult reviewed. Continue linezolid to stop date 02/16/2025. 2. Paroxysmal atrial fibrillation-patient is in A-fib. Blood pressure is high. IV labetalol as needed ordered. Heart rate controlled. On Eliquis 2.5 mg twice daily 3. Dementia-patient has advanced dementia. 4. Acute anemia-etiology unclear, 02/05: Leukocytosis resolved. ANC elevated, manual 89%, ALC low. Metamyelocyte 2%. H&H 8.9/27% % #5. Dehydration-BUN/creatinine ratio 8.5 low, clinically patient does not have dehydration. Dehydration corrected #6 essential hypertension-patient was placed on Norvasc. 02/04 blood pressure is high. On labetalol. Started on scheduled carvedilol 02/05 blood pressure is controlled, systolic 130s. #7 acute renal failure-likely secondary to vancomycin usage for his MRSA bacteremia 02/04: Investment Accountant is following. His creatinine is going up suspected ATN with BUN/creatinine ratio less than 20. Urine osmolality and electrolytes ordered. 02/05: Creatinine went up to 4.63. Discussed with the airset molder. Nonoliguric ATN, presumably ATN. Urine studies shows osmolality 286, random microalbumin 26.2, protein elevated 12.3. Protein creatinine ratio 374. #8 MRSA bacteremia-ID consult reviewed. Repeat blood cultures negative on 01/30/2025. stop date for linezolid 02/08/2025 7 during previous hospitalization he had workup which showed no vegetation on [place]. DVT prophylaxis: On Eliquis 2.5 mg twice daily 02/04/25 17:03: WBC 12.3 H, RBC 3.12 L, Hgb 9.8 L, Hct 29.3 L, MCV 93.9, MCH 31.4, MCHC 33.4, RDW Std Deviation 44.0 H, RDW Coeff of Gary 12.9, Plt Count 193, MPV 9.0, Neut % (Auto) Not Reportable, Absolute Neuts (auto) 11.4 H, Absolute Lymphs (auto) 0.25 L, Total Counted 100, Neutrophils % (Manual) 85 H, Band Neutrophils % 8 H, Lymphocytes % (Manual) 2 L, Monocytes % (Manual) 1, Metamyelocytes % 2 H, Myelocytes % 2 H, Platelet Estimate ADEQUATE 02/04/25 20:00: Urine Osmolality 286, Ur Random Microalbumin 26.2, U Random Total Protein 12.3 H, Ur Random Sodium 97, Urine Creatinine 32.90 L, Protein/Creatinin Ratio 374 H, Urine Potassium 15.2, Urine Chloride 92 02/05/25 05:37: WBC 11.0, RBC 2.87 L, Hgb 8.9 L, Hct 26.9 L, MCV 93.7, MCH 31.0, MCHC 33.1, RDW Std Deviation 43.7, RDW Coeff of Gary 12.8, Plt Count 177, MPV 9.4, Neut % (Auto) Not Reportable, Absolute Neuts (auto) 9.8 H, Absolute Lymphs (auto) 0.76 L, Total Counted 100, Neutrophils % (Manual) 89 H, Lymphocytes % (Manual) 7 L, Monocytes % (Manual) 1, Eosinophils % (Manual) 1, Metamyelocytes % 2 H, Platelet Estimate ADEQUATE, RBC Morphology NORM C+C, Sodium 139, Potassium 3.7, Chloride 106, Carbon Dioxide 23.1, Anion Gap 10, BUN 38 H, Creatinine 4.62 H, Estim Creat Clear Calc 13.74 L, Est GFR (MDRD) Non-Af 12 L, BUN/Creatinine Ratio 8.2 L, Glucose 122 H, Calcium 8.1 Allergies/Procedures Done in Hospital Allergies shellfish derived Allergy (Verified 01/01/25 15:16) unknown Type of Care/Length of Stay Estimated LOS: Convalescent Care Less Than 30 days Type of Care Needed: Skilled Rehab Potential: Fair Prognosis: Fair Additional Orders/Day of Discharge Day of Discharge: 02/06/25 Dietary and Speech Recommendations Dietitian Recommendations/Changes: Continue regular diet per NIGHT MANAGER recommendations. Will order 120ml EPHP TID with meals. Will monitor weight trends. Discharge Plan Admission Admit Date/Time: 01/30/25 21:28 Primary Reason for Your Visit: CASEY, Nephrotoxicty, left foot OM Attending Provider: Dusty Abad Primary Care Provider: Michael Meeks Consulting Providers: Alex Espino; Jane Wall; Demetrius Nash; Juanjo Arias Discharge Orders/Prescriptions Prescriptions: New acetaminophen 325 mg Tablet 650 mg PO Q6H PRN PRN (Reason: Pain 1-10 Or Fever>100.7) Qty: 0 0RF quetiapine 25 mg Tablet 25 mg PO QHS Qty: 0 0RF carvedilol 12.5 mg Tablet 12.5 mg PO BIDCM Qty: 0 0RF linezolid 600 mg Tablet 600 mg PO BID Qty: 0 0RF Rx Instructions: Stop date 02/16/2025 amlodipine 10 mg Tablet 10 mg PO DAILY Qty: 0 0RF Rx Instructions: Hold for SBP less than 130 mmHg Eliquis 5 mg Tablet 2.5 mg PO BID Qty: 0 0RF Continued levothyroxine 150 mcg tablet 150 mcg PO DAILY insulin lispro [Humalog KwikPen Insulin] 100 unit/mL Insulin Pen See Protocol subcut TIDAC Qty: 0 0RF Protocol: 4. 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 or septic HIGH MEDIUM DOSING ALGORITHM sennosides-docusate sodium [Stimulant Laxative Plus] 8.6-50 mg Tablet 2 tab PO BID Qty: 0 0RF Discontinued meloxicam 7.5 mg tablet 7.5 mg PO DAILY terbinafine HCl 250 mg tablet 250 mg PO DAILY vancomycin 1.25 gram recon soln 1.25 g IV Q24H 39 Days Rx Instructions: stop date 02/16/25. Dx: foot osteomyelitis. Weekly bmp, cbc, esr, and vanc trough. Fax to [phone]. Routine picc care per protocol. acetaminophen 500 mg tablet 1,000 mg PO TID 30 Days Qty: 0 0RF Referrals / Follow Up: Michael Meeks DO [Primary Care Provider] - Jane Wall MD [Med Staff - Consulting] - Within 2 Weeks Juanjo Arias MD [Med Staff - Active Staff] - Within 1 Month Disposition Disposition (needs filled in before D/C Order can be placed): [facility]
--- NOTE | 2025-02-06 13:17 | DS.PCM_ITS ---
Providers Date of Admission: 01/30/25 Primary Care Physician: Dr. Michael Meeks, Consultations 02/02/25 08:07 Consult: Nephrology Routine Consulting Provider: Jane Wall Reason for Consult: renal failyure EMERGENT Consult: No Notified: Yes Date Notified: 02/02/25 Time Notified: 08:37 Method of Notification: Answering Service 02/04/25 11:02 Consult: Infectious Disease Routine Consulting Provider: Juanjo Arias Reason for Consult: MRSA left foot O/bactermia in 12/2024, CASEY, Vanc changed to zyvox EMERGENT Consult: No Notified: Yes Date Notified: 02/04/25 Time Notified: 11:02 Method of Notification: Text Reason For Visit: UROSEPSIS W/ NEW ONSET AFIB W/ RVR Diagnosis Discharge Diagnosis (1) Sepsis: Status: Acute Code(s): A41.9 - Sepsis, unspecified organism Plan This 89-year-old gentleman admitted with altered mental status, had low blood pressure in the beginning but high blood pressure now from jail and CASEY. 1. Sepsis secondary to acute cystitis-patient's urine culture grew out Klebsiella pneumonia sensitive to several different antibiotics, cefdinir changed to IV ceftriaxone. ID consult reviewed. Continue linezolid to stop date 02/16/2025. 02/06: Overall hospital course and plan discussed with the patient's daughter, MATTI. Rest as mentioned above. Patient completed treatment for Klebsiella UTI 7 days first, IV Zosyn changed to ceftriaxone/cefdinir. Continue linezolid admission level 2. Paroxysmal atrial fibrillation-patient is in A-fib. Blood pressure is high. IV labetalol as needed ordered. Heart rate controlled. On Eliquis 2.5 mg twice daily 01/29 blood pressure is controlled. 127/87 3. Dementia-patient has advanced dementia. 4. Acute anemia-etiology unclear, 02/05: Leukocytosis resolved. ANC elevated, manual 89%, ALC low. Metamyelocyte 2%. H&H 8.9/27% % 02/06 H&H 8.9/26.3%. #5. Dehydration-BUN/creatinine ratio 8.5 low, clinically patient does not have dehydration. Dehydration corrected #6 essential hypertension-patient was placed on Norvasc. 02/04 blood pressure is high. On labetalol. Started on scheduled carvedilol 02/05 blood pressure is controlled, systolic 130s. #7 acute renal failure-likely secondary to vancomycin usage for his MRSA bacteremia 02/04: [employer] is following. His creatinine is going up suspected ATN with BUN/creatinine ratio less than 20. Urine osmolality and electrolytes ordered. 02/05: Creatinine went up to 4.63. Discussed with the rotary planer set up operator. Nonoliguric ATN, presumably ATN. Urine studies shows osmolality 286, random microalbumin 26.2, protein elevated 12.3. Protein creatinine ratio 374. 02/06: Creatinine slightly up but is stabilizing. Discussed with rotary planer set up operator in detail. It has increased from 4.27-4.7 for the last 4 days therefore stabilizing. Discussed with daughter in detail. Monitor kidney function/,BMP twice a week, next on 02/10/2025. #8 MRSA bacteremia-ID consult reviewed. Repeat blood cultures negative on 01/30/2025. stop date for linezolid 02/08/2025 during previous hospitalization he had workup which showed no vegetation on [place]. DVT prophylaxis: On Eliquis 2.5 mg twice daily Medications at Discharge Home Medications levothyroxine 150 mcg tablet 150 mcg PO DAILY 01/01/25 insulin lispro 100 unit/mL subcutaneous pen (Humalog KwikPen (U-100) Insulin) See Protocol subcut TIDAC #0 mL 01/08/25 sennosides 8.6 mg-docusate sodium 50 mg tablet (Stimulant Laxative Plus) 2 tab PO BID #0 tabs 01/08/25 acetaminophen 325 mg tablet 650 mg (2 x 325 mg) PO Q6H PRN PRN Pain 1-10 Or Fever>100.7 #0 tabs 02/06/25 amlodipine 10 mg tablet 10 mg PO DAILY #0 tabs 02/06/25 apixaban 5 mg tablet (Eliquis) 2.5 mg (1/2 x 5 mg) PO BID #0 tabs 02/06/25 carvedilol 12.5 mg tablet 12.5 mg PO BIDCM #0 tabs 02/06/25 linezolid 600 mg tablet 600 mg PO BID #0 tabs 02/06/25 quetiapine 25 mg tablet 25 mg PO QHS #0 tabs 02/06/25 Physical Exam Narrative Seen and examined. No fever. Discussed with the rotary planer set up operator for increasing creatinine. Nonoliguric CASEY probably progressing to ATN. Patient had 500 mL urine output today. Patient was admitted in December 2024 for left foot ulcer and at that time was discharged on vancomycin for MRSA bacteremia after complete workup as per ID recommendation. Blood pressure is controlled. Discussed with the daughter. Patient has low functional status and needs help for ADL including feeding, transfers and movement. Physical exam General: Alert, Oriented x3, Cooperative HEENT: Atraumatic, PERRLA, EOMI, Normocephalic. Oral: No Gingival or Mucosal Lesions/ Ulcerations Neck: Supple, No JVD, Negative Carotid Bruits Chest wall/Lungs: Air entry diminished in bilateral lung bases. No crepitation/rhonchi Cardiovascular: Irregular rate and rhythm, No M/G/R Abdomen: Bowel Sounds Present, Soft, Non Tender, Non-Distended : Holguin catheter. No renal angle tenderness. No suprapubic tenderness. Extremities: Mild edema Skin: Left foot bandage. Left foot ulcer status post excision and primary closure in December 2025 Musculoskeletal: ROM limited at knees and hip joints. Decreased muscle mass. No Tenderness to Palpation of Joints or Extremities Neurological: Cranial nerves II-XII grossly intact, DTR 2+/4. No acute focal neurological deficit. Psych/Mental Status: Normal Affect, Appropriate. Weight / BMI Weight Weight: 227 lb 1.218 oz Body Mass Index (BMI) 30.7 ABG / Lab / Microbiology Data 02/06/25 06:40 02/06/25 06:40 Laboratory: Laboratory Results - last 24 hr 02/06/25 06:40: WBC 12.0 H, RBC 2.85 L, Hgb 8.9 L, Hct 26.3 L, MCV 92.3, MCH 31.2, MCHC 33.8, RDW Std Deviation 43.7, RDW Coeff of Gary 13.1, Plt Count 194, MPV 9.2, Neut % (Auto) Not Reportable, Absolute Neuts (auto) 10.7 H, Absolute Lymphs (auto) 0.12 L, Total Counted 100, Neutrophils % (Manual) 88 H, Band Neutrophils % 1, Lymphocytes % (Manual) 1 L, Monocytes % (Manual) 4, Eosinophils % (Manual) 2, Metamyelocytes % 1, Myelocytes % 3 H, Platelet Estimate ADEQUATE, RBC Morphology NORM C+C, Sodium 138, Potassium 3.9, Chloride 105, Carbon Dioxide 22.2, Anion Gap 11, BUN 41 H, Creatinine 4.74 H, Estim Creat Clear Calc 13.37 L, Est GFR (MDRD) Non-Af 11 L, BUN/Creatinine Ratio 8.6 L, Glucose 131 H, Calcium 8.2 Microbiology: Microbiology 01/30/25 18:25 Blood Culture (Wb) - Left Hand Blood Culture - Final No growth in 5 days. 01/30/25 23:25 Blood Culture (Wb) - Left Forearm Blood Culture - Final No growth in 5 days. 01/30/25 19:15 Urine, Catheterized Urine Culture - Final Klebsiella pneumoniae sp pneum 01/31/25 02:00 Mucosa - Nasopharyngeal Respiratory Panel (PCR) - Final Radiography Diagnostic Testing: Radiology Impression Chest X-Ray 02/05/25 16:15 IMPRESSION: 1. New airspace and interstitial opacities bilaterally since 01/30/2025, which may represent infection, edema, and/or lung injury. 2. Probable bilateral pleural effusions. Reading Location: [id number] D/C Instructions DC O2, CPAP, BIPAP Needs Home O2 Discharge instructions: Yes Type of respiratory needs?: Oxygen Oxygen frequency: Continuous Continuous oxygen liters per minute: 2 DC home with Oxygen: Yes Home O2 Review: I have reviewed the oxygen testing, and the patient qualifies for home oxygen equipment and portability. The patient is mobile in the home and the community. Meaningful Use Info Meaningful Use Meaningful Use Diagnoses (Choose all that apply): None applicable Discharge Plan Admission Admit Date/Time: 01/30/25 21:28 Primary Reason for Your Visit: CASEY, Nephrotoxicty, left foot OM Attending Provider: Dusty Abad Primary Care Provider: Michael Meeks Consulting Providers: Alex Espino; Jane Wall; Demetrius Nash; Juanjo Arias Discharge Orders/Prescriptions Prescriptions: New acetaminophen 325 mg Tablet 650 mg PO Q6H PRN PRN (Reason: Pain 1-10 Or Fever>100.7) Qty: 0 0RF quetiapine 25 mg Tablet 25 mg PO QHS Qty: 0 0RF carvedilol 12.5 mg Tablet 12.5 mg PO BIDCM Qty: 0 0RF linezolid 600 mg Tablet 600 mg PO BID Qty: 0 0RF Rx Instructions: Stop date 02/16/2025 amlodipine 10 mg Tablet 10 mg PO DAILY Qty: 0 0RF Rx Instructions: Hold for SBP less than 130 mmHg Eliquis 5 mg Tablet 2.5 mg PO BID Qty: 0 0RF Continued levothyroxine 150 mcg tablet 150 mcg PO DAILY insulin lispro [Humalog KwikPen Insulin] 100 unit/mL Insulin Pen See Protocol subcut TIDAC Qty: 0 0RF Protocol: 4. 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 or septic HIGH MEDIUM DOSING ALGORITHM sennosides-docusate sodium [Stimulant Laxative Plus] 8.6-50 mg Tablet 2 tab PO BID Qty: 0 0RF Discontinued meloxicam 7.5 mg tablet 7.5 mg PO DAILY terbinafine HCl 250 mg tablet 250 mg PO DAILY vancomycin 1.25 gram recon soln 1.25 g IV Q24H 39 Days Rx Instructions: stop date 02/16/25. Dx: foot osteomyelitis. Weekly bmp, cbc, esr, and vanc trough. Fax to [phone]. Routine picc care per protocol. acetaminophen 500 mg tablet 1,000 mg PO TID 30 Days Qty: 0 0RF Referrals / Follow Up: Jane Wall MD [Med Staff - Consulting] - Within 2 Weeks Juanjo Arias MD [Med Staff - Active Staff] - Within 1 Month Michael Meeks DO [Primary Care Provider] - Disposition Disposition (needs filled in before D/C Order can be placed): Residential Facility Charges/Coding Visit Charges Inpatient E&M: 27900 Disch Hosp >30min
--- NOTE | 2025-02-06 13:22 | CASEMGMT ---
Addendum entered by Chantel Byrne 02/06/25 15:44: SW attempted to meet with family in pt room; family had already left. SW checked back x2 and family still not present. SW called pt dtr number and left a voicemail with transport time. [facility] [place] Original Note: Social Work Following medical work-up,hospitalist feels that pt is ready for discharge today.?Hospitalist met with family to discuss hospice. Pt family will continue to monitor at SNF and make a determination at a later time regarding hospice. DCA notified of discharge readiness. DCA completed all final arrangements. Disposition:[facility], skilled level of care [place] [place]
--- NOTE | 2025-02-06 13:29 | CASEMGMT ---
Discharge Planning Discharge order, signed med list, and transport time sent to [employer] at [place]. Physicians will transport pt by cot at 7p. Nursing and SW updated. SW to update pts family. Rosalia Medina DC Planning Asst.
--- NOTE | 2025-02-06 14:35 | NURSING ---
awaiting ambulance service fot transfer to [facility]
[2025-02-06 15:00] VITALS: BP 137/87; PULSE 74; RESP 18; TEMP 36.6; O2SAT 97
[2025-02-06] MEDS: Ensure Plus High Protein 120 ML LIQUID PO (15:49)
--- NOTE | 2025-02-06 18:29 | PCM.PN.REN ---
Subjective Subjective no new events Objective Data Objective Data Vital Signs: Vital Signs Temp Pulse Resp BP Pulse Ox O2 Del Method O2 Flow Rate 97.8 F 74 18 137/87 H 97 Nasal Cannula 3 02/06/25 15:00 02/06/25 15:00 02/06/25 15:00 02/06/25 15:00 02/06/25 15:00 02/06/25 15:00 02/06/25 15:00 FiO2 50 01/31/25 08:00 Oxygen Flow Rate (L/min) 3 Oxygen Delivery Method Nasal Cannula Weight: 103 kg Body Mass Index (BMI) 30.7 Intake & Output: Intake and Output for Last 24 Hours 02/04/25 02/05/25 02/06/25 23:59 23:59 23:59 Intake Total 2815.00 / 3015.00 2018.75 / 2018.75 300 / 300 Output Total 2500 / 2500 1825 / 1825 600 / 600 Balance 315.00 / 515.00 193.75 / 193.75 -300 / -300 Lab / Micro Data 02/06/25 06:40 02/06/25 06:40 Labs: Laboratory Results - last 24 hr 02/06/25 06:40: WBC 12.0 H, RBC 2.85 L, Hgb 8.9 L, Hct 26.3 L, MCV 92.3, MCH 31.2, MCHC 33.8, RDW Std Deviation 43.7, RDW Coeff of Gary 13.1, Plt Count 194, MPV 9.2, Neut % (Auto) Not Reportable, Absolute Neuts (auto) 10.7 H, Absolute Lymphs (auto) 0.12 L, Total Counted 100, Neutrophils % (Manual) 88 H, Band Neutrophils % 1, Lymphocytes % (Manual) 1 L, Monocytes % (Manual) 4, Eosinophils % (Manual) 2, Metamyelocytes % 1, Myelocytes % 3 H, Platelet Estimate ADEQUATE, RBC Morphology NORM C+C, Sodium 138, Potassium 3.9, Chloride 105, Carbon Dioxide 22.2, Anion Gap 11, BUN 41 H, Creatinine 4.74 H, Estim Creat Clear Calc 13.37 L, Est GFR (MDRD) Non-Af 11 L, BUN/Creatinine Ratio 8.6 L, Glucose 131 H, Calcium 8.2 Micro: Microbiology 01/30/25 18:25 Blood Culture (Wb) - Left Hand Blood Culture - Final No growth in 5 days. 01/30/25 23:25 Blood Culture (Wb) - Left Forearm Blood Culture - Final No growth in 5 days. 01/30/25 19:15 Urine, Catheterized Urine Culture - Final Klebsiella pneumoniae sp pneum 01/31/25 02:00 Mucosa - Nasopharyngeal Respiratory Panel (PCR) - Final Physical Exam Narrative Alert and oriented, confused to recent events. No apparent distress. S1, S2, RRR Lungs sound clear. No wheezes, rales or rhonchi Abdomen soft, nontender, nondistended Assessment & Plan Assessment/Plan (1) Acute kidney injury: PLAN: This is an 89-year-old male with past medical history significant for dementia, hypothyroidism who was brought to the emergency room from extended-care facility for confusion and elevated blood pressure. Per intermediate patient's systolic blood pressure above 200. Patient was just recently at [facility] from January 01 to January 08, treated for MSSA bacteremia in setting of cellulitis of his foot and left foot osteomyelitis, [place] no vegetation seen but difficult study; patient had PICC line placed and was discharged to [facility] with IV vancomycin with stop date of 02/16/2025. Nephrology consulted in view of elevated creatinine. Creatinine was 1.8 in the ER and today creatinine is up to 3.77. Baseline creatinine is ranging around 1.1 to 1.3 mg/dL. During his last hospitalization, creatinine was 1.9 on admission and by time of hospital discharge creatinine 1.06 on January 08. presumably ATN non oliguric cr today about the same as yesterday hopefully peak no further work up even if renal function worsens he is not a great candidate for dialysis ok to make dc plans can consult hospice as outpatient if renal function does not improve briseida Abad
--- NOTE | 2025-02-06 18:59 | NURSING ---
spoke w/ Elisha [facility]-they will d/c PICC line right upper arm
== END 2025-02-06 16:20 | disposition skilled nursing facility (03) | DRG 871 ==
LOC: ED 21:16 → ICU 21:39 → MS3 01-31 17:18
PROVIDERS: Internal Medicine; Nurse Practitioner Adult Health; Admitting Provider Hospitalist; Emergency Provider Emergency Medicine; Visit Provider Internal Medicine
DX: A41.59 Other Gram-negative sepsis (principal); N17.0 Acute kidney failure with tubular necrosis; N30.00 Acute cystitis without hematuria; Z66 Do not resuscitate; E03.9 Hypothyroidism, unspecified; D64.9 Anemia, unspecified; I48.0 Paroxysmal atrial fibrillation; E86.0 Dehydration; F03.90 Unspecified dementia, unspecified severity, without behavioral disturbance, psychotic disturbance, mood disturbance, and anxiety; I10 Essential (primary) hypertension; I35.0 Nonrheumatic aortic (valve) stenosis; T36.8X5A Adverse effect of other systemic antibiotics, initial encounter; I49.1 Atrial premature depolarization; R53.81 Other malaise; Z86.39 Personal history of other endocrine, nutritional and metabolic disease; Z86.19 Personal history of other infectious and parasitic diseases; Z79.890 Hormone replacement therapy; Z79.899 Other long term (current) drug therapy; Z98.890 Other specified postprocedural states
CPT/HCPCS: 36415; 51702; 71045; 76770; 80048; 80053; 80202; 81001; 82043; 82436; 82570; 83605; 83735; 83935; 84100; 84133; 84156; 84300; 85025; 85027; 85610; 85730; 86160; 87040; 87077; 87086; 87088; 87186; 87633; 92526; 92610; 93005; 94668; 94762; 97163; 97165; 97530; 99285; A4216

== ENCOUNTER 2025-02-07 18:56 | Emergency (ER) | payer MEDICARE, BC, SELFPAY ==
[2025-02-07] VITALS (7 sets, daily range): BP systolic 117–154; BP diastolic 76–106; PULSE 79–99; RESP 13–18; TEMP 36.8–37; O2SAT 96–100; BMI 31.7
--- OUTSIDE RECORDS SUMMARY | 2025-02-07 20:00 | XMS RPT_ITS | CCD ---
Author Organization [facility] CliniSynd Care Team Providers Care Benefit Specialist Name Role Phone Moon RIVERO, Dr. Alberto Marrufo Primary Care Provider Dr. Alberto Mustafa MD Attending Provider Dr. Alberto Mustafa MD Referring Provider [phone] Dr. Maliha Youngblood DO Emergency Provider Meeks DO, Dr. Solitario Admit Provider Unavail able Dr. Altaf Meeks DO Other Provider Unavail able Dr. Demetrius Nash DO Attending Provider [phone] Dr. Kamari Lockhart MD Attending Provider Dr. Demetrius Nash DO Other Provider Dr. Michael Meeks MD Attending Provider Unavail able Dickson ATWOODMDr. Stanley Attending Provider Dr. Michael Meeks DO Referring Provider Dr. Alberto Mustafa MD Primary Care Provider [phone] Dr. Alberto Mustafa MD Attending Provider Dr. Alberto Mustafa MD Referring Provider Dr. Michael Meeks MD Referring Provider Unavail able Dr. Booker Rodríguez DO Emergency Provider Dr. Michael Meeks DO Primary Care Provider Dr. Mei Mckenzie DO Admit Provider Dr. Mei Mckenzie DO Attending Provider [phone] Mei Mckenzie DO Other Provider Dr. [...] [phone] Ford WOLF, Dr. Jett Emergency Provider [phone] Meeks DO, Dr. Solitario Admit Provider Unavail [...] Dr. Michael Meeks DO Primary Care Provider Jonah WOLF, Dr. Hurley Admit Provider Jonah WOLF, Dr. Hurley Other Provider Pollo RIVERO, Dr. Montano Attending Provider John RIVERO, Dr. Sofia Reese Other Provider Juana RIVERO, Dr. Geiger Other Provider Dickson DPM, Dr. Stanley Other Provider Jonah WOLF, Dr. Hurley Attending Provider Vinnie RIVERO, Dr. Roger Attending Provider Lori Lopez MD, Dr. Sofia Reese Attending Provider Pollo RIVERO, Dr. Montano Other Provider [phone] Moon RIVERO, Dr. Alberto Marrufo Primary Care Provider Dr. Booker Rodríguez DO Attending Provider Pollo RIVERO, Dr. Montano Attending Provider John RIVERO, Dr. Sofia Reese Other Provider John RIVERO, Dr. Sofia Reese Attending Provider Vinnie RIVERO, Dr. Roger Attending Provider Lori Cervantes MD, Dr. Celeste Attending Provider Dickson BRIGGS, Dr. Stanley Referring Provider Pollo RIVERO, Dr. Montano Other Provider [phone] Moon RIVERO, Dr. Alberto Marrufo Primary Care Provider Constantino RIVERO, Dr. Rodriguez Attending Provider Unavail able Philip Espinosa Attending Provider Unavailable Srinivas WOLF, Dr. Johnson Admit Provider [phone] Dr. Alex Espino DO Attending Provider Moon RIVERO, Dr. Alberto Marrufo Primary Care Provider [phone] Dr. Michael Meeks MD Attending Provider Unavail maria t Lopez MD, Dr. Sofia Reese Attending Provider Billy RIVERO, Dr. Celeste Attending Provider Dickson BRIGGS, Dr. Stanley Referring Provider Philip Espinosa Attending Provider Unavailable Dr. Alex Espino DO Admit Provider [phone] Dr. Alex Espino DO Other Provider [phone] Mae RIVERO, Dr. Lara Other Provider Saad WOLF, Dr. Romo Other Provider Saad WOLF, Dr. Romo Attending Provider [phone] Michael Ray Attending Unavailable Alberto Mustafa Primary Care Unavailable Michael Ray Attending Unavailable Alberto Mustafa Primary Care Unavailable Altaf Meeks Admitting Unavailable Altaf Meeks Consulting Unavailable Schdoreen, Alberto E Primary Care Unavailable Demetrius Nash Attending Unavailable Alberto Mustafa Referring Unavailable Schindonta, Alberto E Primary Care Unavailable SchAlberto logan Attending Unavailable Alberto Mustafa Attending Unavailable Alberto Mustafa Referring Unavailable Schdoreen, Alberto E Primary Care Unavailable Jaden Forman Attending Unavailable Michael Meeks Referring Unavailable SchAlberto logan Primary Care Unavailable Michael Meeks Primary Care Unavailable Mei Mckenzie Admitting Unavailable Dusty Abad Attending Unavailable Mei Mckenzie Consulting Unavailable Sofia Lopez Consulting Unavailable Juanjo Arias Consulting Unavailable Jaden Forman Consulting Unavailable Alex Espino Consulting Unavailable Alex Espino Admitting Unavailable Michael Meeks Primary Care Unavailable Dusty Abad Attending Unavailable Jane Wall Consulting Unavailable Demetrius Nash Consulting Unavailable Juanjo Arias Consulting Unavailable Michael Meeks Primary Care Unavailable Philip Espinosa Attending Unavailable Jaden Forman Attending Unavailable Michael Meeks Referring Unavailable Alberto Mustafa Primary Care Unavailable Michael Ray Attending Unavailable Alberto Mustafa Primary Care Unavailable Michael Ray Attending Unavailable Alberto Mustafa Primary Care Unavailable Michael Ray Referring Unavailable Michael Ray Attending Unavailable Alberto Mustafa Primary Care Unavailable Michael Ray Attending Unavailable Alberto Mustafa Primary Care Unavailable Michael Meeks Primary Care Unavailable Booker Rodríguez Attending Unavailable Alberto Mustafa Referring Unavailable SchAlberto logan Primary Care Unavailable SchAlberto logan Attending Unavailable Jaden Forman Attending Unavailable Michael Meeks Referring Unavailable SchAlberto logan Primary Care Unavailable SchAlberto logan Primary Care Unavailable Kamari Lockhart Attending UnavailAlberto Patel Referring Unavailable SchAlberto logan E Primary Care Unavailable Alberto Mustafa Attending Unavailable Alberto Mustafa Attending Unavailable Alberto Mustafa E Primary Care Unavailable Altaf Meeks Admitting Unavailable Altaf Meeks Consulting Unavailable Altaf Meeks Attending Unavailable Moon, Alberto E Primary Care Unavailable Michael Ray Attending Unavailable Alberto Mustafa Primary Care Unavailable Alex Espino Consulting Unavailable Alex Espino Admitting Unavailable Michael Meeks Primary Care Unavailable Dusty Abad Attending Unavailable Jane Wall Consulting Unavailable Demetrius Nash Consulting Unavailable Juanjo Arias Consulting Unavailable Dusty Abad Consulting Unavailable Demetrius Nash Attending Unavailable Demetrius Nash Consulting Unavailable Mei Mckenzie Attending Unavailable Mei Mckenzie Admitting Unavailable Michael Meeks Primary Care Unavailable Mei Mckenzie Consulting Unavailable Mei Mckenzie Admitting Unavailable Michael Meeks Primary Care Unavailable Mei Mckenzie Consulting Unavailable Sofia Lopez Attending Unavailable Juanjo Arias Consulting Unavailable Jaden Forman Consulting Unavailable Sofia Lopez Consulting Unavailable Michael Meeks Primary Care Unavailable Kana [place] Attending Unavailable Jaden Forman Referring Unavailable Michael Meeks Primary Care Unavailable Booker Cervantes Attending Unavailable Dusty Abad Attending Unavailable Dusty Abad Consulting Unavailable Alex Espino Attending Unavailable Demetrius Nash Attending Unavailable Jaden Forman Attending Unavailable Michael Meeks Referring Unavailable Michael Meeks Primary Care Unavailable Michael Ray Attending Unavailable Alberto Mustafa Primary Care Unavailable Alberto Mustafa Attending Unavailable Alberto Mustafa Primary Care Unavailable Jaden Forman Attending Unavailable Michael Meeks Referring Unavailable Alberto Mustafa Primary Care Unavailable Allergies Allergy Classification Reported Allergen(s) Allergy Type Date of Onset Reaction(s) Facility (1 source) Shellfish Drug allergy (disorder) 01-01-2025 [facility] Repository Medications Current Medications Medication Drug Class(es) Dates Sig (Normalized) Sig (Original) acetaminophen 325 mg oral tablet (20 sources) Start: 02-06-2025 Start: 01-01-2025 End: 01-08-2025 Start: 01-01-2025 End: 02-06-2025 Start: 01-01-2025 End: 01-08-2025 take 1 tablet by mouth twice daily as needed for pain Acetaminophen 500 mg tablet Discontinued 500 mg PO TWICE A DAY as needed for fever or pain January 01, 2025 12:00am January 08, 2025 2:07pm Start: 09-19-2024 End: 01-01-2025 amLODIPine 10 mg oral tablet (1 source) Dihydropyridine Calcium Channel Michael Start: 02-06-2025 apixaban 5 mg oral tablet (1 source) Factor Xa Inhibitor Start: 02-06-2025 carvedilol 12.5 mg oral tablet (1 source) alpha-Adrenergic Michael, beta-Adrenergic Michael Start: 02-06-2025 docusate sodium 50 mg / sennosides, detention 8.6 mg oral tablet (4 sources) Start: 01-08-2025 Start: 01-08-2025 Sennosides-Doc usate Sodium (Stimulant Laxative Plus) 8.6-50 mg Tablet Active 2 {tbl} PO TWICE A DAY 0 0 January 08, 2025 12:00am 3 ml insulin lispro 100 unt/ ml pen injector (4 sources) Insulin Analog Start: 01-08-2025 Start: 01-08-2025 Insulin Lispro (Humalog Kwikpen Insulin) 100 unit/mL Insulin Pen Active 0 U SC THREE TIMES DAILY BEFORE MEALS 0 0 January 08, 2025 12:00am Please contact the information source for Protocol details. levothyroxine sodium 0.15 mg oral tablet (20 sources) l-Thyroxine Start: 01-01-2025 Start: 09-16-2024 End: 01-01-2025 linezolid 600 mg oral tablet (1 source) Oxazolidinone Antibacterial Start: 02-06-2025 QUEtiapine 25 mg oral tablet (1 source) Atypical Antipsychotic Start: 02-06-2025 Completed/Discontinued Medications Medication Drug Class(es) Dates Sig (Normalized) Sig (Original) doxycycline hyclate 100 mg oral capsule (6 sources) Tetracycline-class Drug Start: 01-01-2025 End: 01-07-2025 meloxicam 7.5 mg oral tablet (6 sources) Nonsteroidal Anti-inflammatory Drug Start: 01-01-2025 End: 02-06-2025 Sennosides (Kaylene-Nyasia) 8.6 mg tablet (4 sources) Start: 01-01-2025 End: 01-08-2025 take 1 [...] needed for constipation January 01, 2025 12:00am terbinafine 250 mg oral tabl et (6 sources) Allylamine Antifungal Start: 01-01-2025 End: 02-06-2025 vancomycin 1250 mg injection (4 sources) Glycopeptide Antibacterial Start: 01-07-2025 End: 02-06-2025 (2 sources) Start: 01-01-2025 End: 01-08-2025 Problems Active Problems Problem Classification Problem Date Documented Date Episodic/Chronic Acute and unspecified renal failure (15 sources) Acute renal failure syndrome; Translations: [Acute kidney failure, unspecified] Onset: 02-06-2025 01-01-2025 Episodic Bacterial infection; unspecified site (12 sources) Bacteremia due to Staphylococcus aureus; Translations: [Bacteremia] Onset: 01-08-2025 01-02-2025 Episodic Cardiac dysrhythmias (5 sources) Atrial fibrillation with rapid ventricular response; Translations: [Unspecified atrial fibrillation] Onset: 02-06-2025 01-30-2025 Chronic Cardiac dysrhythmias (13 sources) Tachycardia; Translations: [Tachycardia, unspecified] Onset: 01-08-2025 [...] 12-24-2024 09-24-2024 Chronic Diabetes mellitus without complication (13 sources) Hyperglycemia; Translations: [Hyperglycemia, unspecified] Onset: 01-08-2025 01-02-2025 Episodic Disorders of lipid metabolism (1 source) Hyperlipidemia, unspecified; Translations: [Hyperlipidemia, unspecified] Onset: 06-23-2024 Chronic E Codes: Fall (20 sources) Fall; Translations: [Unspecified fall, initial encounter] Onset: 09-20-2024 09-24-2024 Episodic Fever of unknown origin (13 sources) Fever; Translations: [Fever, unspecified] Onset: 01-08-2025 01-01-2025 Episodic Fluid and electrolyte disorders (2 sources) Lactic acidosis; Translations: [Lactic acidosis] 01-30-2025 Episodic Infective arthritis and osteomyelitis (except that caused by tuberculosis or sexually transmitted disease) (13 sources) Osteomyelitis of left foot; Translations: [Osteomyelitis, unspecified] Onset: 02-06-2025 01-02-2025 Chronic Open wounds of extremities (7 sources) Tear of skin; Translations: [Laceration without foreign body of right upper arm, initial encounter] 12-31-2024 Episodic Open wounds of extremities (13 sources) Open wound of left foot; Translations: [...] Onset: 01-07-2025 Episodic Other nervous system disorders (12 sources) Toxic metabolic encephalopathy; Translations: [Toxic metabolic encephalopathy] 01-02-2025 Episodic Other screening for suspected conditions (not mental disorders or infectious disease) (15 sources) Raised cardiac enzyme or marker; Translations: [Other specified abnormal findings of blood chemistry] Onset: 09-20-2024 09-17-2024 Episodic Residual codes; unclassified (11 sources) Altered mental status; Translations: [Altered mental status, unspecified] 01-01-2025 Episodic Residual codes; unclassified (1 source) Altered mental status, unspecified; Translations: [Altered mental status, unspecified] Onset: 01-08-2025 Episodic Septicemia (except in labor) (13 sources) Sepsis; Translations: [Sepsis, unspecified organism] Onset: 02-06-2025 01-02-2025 Episodic Skin and subcutaneous tissue infections (11 sources) Cellulitis of left foot; Translations: [Cellulitis of left lower limb] Onset: 01-08-2025 01-02-2025 Episodic Superficial injury; contusion (14 sources) Contusion of lower back; Translations: [Contusion of lower back and pelvis, initial encounter] 09-16-2024 Episodic Thyroid disorders (20 sources) Hypothyroidism; Translations: [Hypothyroidism, unspecified] Onset: 05-22-2024 09-24-2024 Chronic Unclassified (2 sources) Please follow-up the wound care center. Please call for appointment date and time. Unclassified (1 source) Other toxic encephalopathy; Translations: [Other toxic encephalopathy] Onset: 01-08-2025 Unclassified (2 sources) Unspecified dementia, severe, with agitation; Translations: [Unspecified dementia, severe, with agitation] Onset: 12-12-2024 Unclassified (1 source) Unspecified dementia, unspecified severity, with agitation; Translations: [Unspecified dementia, unspecified severity, with agitation] Onset: 09-20-2024 Urinary tract infections (5 sources) Urinary tract infectious disease; Translations: [Urinary tract infection, site not specified] Onset: 02-06-2025 01-30-2025 Episodic Past or Other Problems Problem Classification Problem Date Documented Da te Episodic/Chronic Other injuries and conditions due to external causes (1 source) Unspecified injury of head, sequela; Translations: [Unspecified injury of head, sequela] Onset: 09-20-2024 Episodic Residual codes; unclassified (1 source) Disorientation, unspecified; Translations: [Disorientation, unspecified] Onset: 10-02-2024 Episodic Residual codes; unclassified (1 source) Other amnesia; Translations: [Other amnesia] Onset: 05-22-2024 Episodic Results Test Name Value Interpretation Reference Range Facility Absolute lymphocyte countOrd ered By: Dusty Abad on 02-06-2025 Lymphocytes Auto (Unsp spec) [#/Vol] 0.12 10*3/uL Low 0.83-4.51 [facility] Anion gap in Serum or Plasma Ordered By: Dusty Abad on 02-06-2025 Anion gap [Moles/Vol] 11 mmol/L 5-15 [facility] BUN/creatinine ratioOrdered By: Dusty Abad on 02-06-2025 Urea nitrogen/Creatinine [Mass ratio] 8.6 mg/mg Low 10-20 [facility] Basic Metabolic Profile (BMP )on 02-06-2025 BUN/CRE 8.6 RATIO Low 10-20 [facility] Comment on above: Performed By: #### L 500.2500, L100.0100 ####[facility] [address] [place], [address] Calcium [Mass/Vol] 8.2 mg/dL Normal 7.6-11.0 [facility] Comment on above: Performed By: #### L 500.2500, L100.0100 ####[facility] [address] [place], [address] Chloride [Moles/Vol] 105 mmol/L Normal 98-108 [facility] Comment on above: Performed By: #### L 500.2500, L100.0100 ####[facility] [address] [place], [address] CO2 [Moles/Vol] 22.2 mmol/L Normal 21.0-32.0 [facility] Comment on above: Performed By: #### L 500.2500, L100.0100 ####[facility] [address] [place], [address] Creatinine [Mass/Vol] 4.74 mg/dL High 0.70-1.20 [facility] Comment on above: Performed By: #### L 500.2500, L100.0100 ####[facility] [address] [place], [address] ECRCL 13.37 ml/min Low 50-250 [facility] Comment on above: Performed By: #### L 500.2500, L100.0100 ####[facility] [address] [place], [address] GAP 11 Normal 5-15 [facility] Comment on above: Performed By: #### L 500.2500, L100.0100 ####[facility] [address] [place], [address] GFR/1.73 sq M.predicted among non-blacks MDRD (S/P/Bld) [Vol rate/Area] 11 mL/min/{1.73_m2} Low >60 [facility] Comment on above: Result Comment: mL/m in/1.73m2 CKD-EPI Creatinine Equation (2020) Performed By: #### L 500.2500, L100.0100 ####[facility] [address] [place], [address] Glucose [Mass/Vol] 131 mg/dL High 70-99 [facility] Comment on above: Performed By: #### L 500.2500, L100.0100 ####[facility] [address] [place], [address] Potassium [Moles/Vol] 3.9 mmol/L Normal 3.3-5.1 [facility] Comment on above: Performed By: #### L 500.2500, L100.0100 ####[facility] [address] [place], [address] Sodium [Moles/Vol] 138 mmol/L Normal 133-145 [facility] Comment on above: Performed By: #### L 500.2500, L100.0100 ####[facility] [address] [place], [address] Urea nitrogen [Mass/Vol] 41 mg/dL High 4-19 [facility] Comment on above: Performed By: #### L 500.2500, L100.0100 ####[facility] [address] [place], [address] Blood band neutrophil count as percentage of total leukocytesOrdered By: Dusty Abad on 02-06-2025 Band form neutrophils/100 WBC (Bld) 1 % 0-5 [facility] Blood eosinophils/100 leukoc ytesOrdered By: Dusty Abad on 02-06-2025 Eosinophils/100 WBC (Bld) 2 % 0-5 [facility] Blood lymphocytes/100 leukoc ytesOrdered By: Dusty Abad on 02-06-2025 Lymphocytes/100 WBC (Bld) 1 % Low 19-41 [facility] Blood metamyelocytes/100 katherine kocytesOrdered By: Dusty Abad on 02-06-2025 Metamyelocytes/100 WBC (Bld) 1 % 0-1 [facility] Blood monocytes/100 leukocyt esOrdered By: Dusty Abad on 02-06-2025 Monocytes/100 WBC (Bld) 4 % 0-10 [facility] Blood segmented neutrophils/ 100 leukocytesOrdered By: Dusty Abad on 02-06-2025 Segmented neutrophils/100 WBC (Bld) 88 % High 47-70 [facility] CBC W/Diff, Automatedon 01-20 Absolute Lymph 0.12 X10 3/uL Low 0.83-4.51 [facility] Comment on above: Performed By: #### L 500.2500, L100.0100 ####[facility] [address] [place], [address] Absolute Neut 10.7 X10 3/uL High 2.0-7.7 [facility] Comment on above: Performed By: #### L 500.2500, L100.0100 ####[facility] [address] [place], [address] Carbon dioxide, total [Moles /volume] in Central venous bloodOrdered By: Dusty Abad on 02-06-2025 CO2 [Moles/Vol] 22.2 mmol/L 21.0-32.0 [facility] Chloride assayOrdered By: Kamran Abad on 02-06-2025 Chloride [Moles/Vol] 105 mmol/L 98-108 [facility] Culture, Fungus 8482on 02-06 CUF Normal [facility] Comment on above: Performed By: #### M 100.3000, M100.2000, M600.2200, M100.4001, M600.1999 ####[facility] [address] [place], [place], [id number] Erythrocyte distribution wid th ratioOrdered By: Dusty Abad on 02-06-2025 Erythrocyte distribution width (RBC) [Ratio] 13.1 % 11.6-14.6 [facility] Erythrocyte distribution wid th standard deviationOrdered By: Dusty Abad on 02-06-2025 Erythrocyte distribution width (RBC) [Ratio] 43.7 fl 35.1-43.9 [facility] Erythrocyte morphology asses smentOrdered By: Dusty Abad on 02-06-2025 RBC morphology finding Nom (Bld) NORM C+C NORMAL NORM C&C [facility] Fungus Stain 8136on 02-07-20 25 FUNST Normal [facility] Comment on above: Performed By: #### M 100.3000, M100.2000, M600.2200, M100.4001, M600.1999 ####[facility] [address] [place], [address] Glomerular filtration rate ( GFR) estimation/1.73 sq m using serum, plasma, or whole bOrdered By: Dusty Abad on 02-06-2025 GFR/1.73 sq M.predicted among non-blacks MDRD (S/P/Bld) [Vol rate/Area] 11 mL/min/{1.73_m2} Low >60 [facility] Hematocrit Auto (Bld) [Volum e fraction]Ordered By: Dusty Abad on 02-06-2025 Hematocrit (Bld) [Volume fraction] 26.3 % Low 40-54 [facility] Hemoglobin measurementOrdere d By: Dusty Abad on 02-06-2025 Hemoglobin (Bld) [Mass/Vol] 8.9 g/dL Low 13.0-16.5 [facility] MCV (mean corpuscular volume ) determinationOrdered By: Dusty Abad on 02-06-2025 MCV (RBC) [Entitic vol] 92.3 fL 80-94 [facility] Mean corpuscular hemoglobin (MCH) determinationOrdered By: Dusty Abad on 02-06-2025 MCH (RBC) [Entitic mass] 31.2 pg 27.0-32.0 [facility] Platelet countOrdered By: Kamran Abad on 02-06-2025 Platelets (Bld) [#/Vol] 194 10*3/uL 150-450 [facility] Platelet estimateOrdered By: Dusty Abad on 02-06-2025 Platelets LM Ql (Bld) ADEQUATE ADEQ [facility] Potassium measurement (mass/ volume)Ordered By: Dusty Abad on 02-06-2025 Potassium (Unsp spec) [Mass/Vol] 3.9 mmol/L 3.3-5.1 [facility] RBC Auto (Bld) [#/Vol]Ordere d By: Dusty Abad on 02-06-2025 RBC (Bld) [#/Vol] 2.85 10*6/uL Low 4.6-6.2 [facility] Serum creatinine measurement (mass/volume)Ordered By: Dusty Abad on 02-06-2025 Creatinine [Mass/Vol] 4.74 mg/dL High 0.70-1.20 [facility] Serum glucose measurement (m ass/volume)Ordered By: Dusty Abad on 02-06-2025 Glucose [Mass/Vol] 131 mg/dL High 70-99 [facility] Serum or plasma calcium ana urement (mass/volume)Ordered By: Dusty Abad on 02-06-2025 Calcium [Mass/Vol] 8.2 mg/dL 7.6-11.0 [facility] Serum or plasma urea nitroge n measurement (mass/volume)Ordered By: Dusty Abad on 02-06-2025 Urea nitrogen [Mass/Vol] 41 mg/dL High 4-19 [facility] Sodium levelOrdered By: Mango Abad on 02-06-2025 Sodium [Moles/Vol] 138 mmol/L 133-145 [facility] Total cell countOrdered By: Dusty Abad on 02-06-2025 Cells counted Molgen (Bld/Tiss) [#] 100 MANUAL DIFF [facility] White blood cell (WBC) count Ordered By: Dusty Abad on 02-06-2025 WBC (Bld) [#/Vol] 12.0 10*3/uL High 4.4-11.0 [facility] Basic Metabolic Profile (BMP )on 02-05-2025 BUN/CRE 8.2 RATIO Low 10-20 [facility] Comment on above: Performed By: #### L 500.2500, L100.0100 ####[facility] [address] [place], [address] Calcium [Mass/Vol] 8.1 mg/dL Normal 7.6-11.0 [facility] Comment on above: Performed By: #### L 500.2500, L100.0100 ####[facility] [address] [place], [address] Chloride [Moles/Vol] 106 mmol/L Normal 98-108 [facility] Comment on above: Performed By: #### L 500.2500, L100.0100 ####[facility] [address] [place], [address] CO2 [Moles/Vol] 23.1 mmol/L Normal 21.0-32.0 [facility] Comment on above: Performed By: #### L 500.2500, L100.0100 ####[facility] [address] [place], [address] Creatinine [Mass/Vol] 4.62 mg/dL High 0.70-1.20 [facility] Comment on above: Performed By: #### L 500.2500, L100.0100 ####[facility] [address] [place], [address] ECRCL 13.74 ml/min Low 50-250 [facility] Comment on above: Performed By: #### L 500.2500, L100.0100 ####[facility] [address] [place], [address] GAP 10 Normal 5-15 [facility] Comment on above: Performed By: #### L 500.2500, L100.0100 ####[facility] [address] [place], [address] GFR/1.73 sq M.predicted among non-blacks MDRD (S/P/Bld) [Vol rate/Area] 12 mL/min/{1.73_m2} Low >60 [facility] Comment on above: Result Comment: mL/m in/1.73m2 CKD-EPI Creatinine Equation (2020) Performed By: #### L 500.2500, L100.0100 ####[facility] [address] [place], [address] Glucose [Mass/Vol] 122 mg/dL High 70-99 [facility] Comment on above: Performed By: #### L 500.2500, L100.0100 ####[facility] [address] [place], [address] Potassium [Moles/Vol] 3.7 mmol/L Normal 3.3-5.1 [facility] Comment on above: Performed By: #### L 500.2500, L100.0100 ####[facility] [address] [place], [address] Sodium [Moles/Vol] 139 mmol/L Normal 133-145 [facility] Comment on above: Performed By: #### L 500.2500, L100.0100 ####[facility] [address] [place], [address] Urea nitrogen [Mass/Vol] 38 mg/dL High 4-19 [facility] Comment on above: Performed By: #### L 500.2500, L100.0100 ####[facility] [address] [place], [address] CBC W/Diff, Automatedon 01-20 Absolute Lymph 0.76 X10 3/uL Low 0.83-4.51 [facility] Comment on above: Performed By: #### L 500.2500, L100.0100 ####[facility] [address] [place], [address] Absolute Neut 9.8 X10 3/uL High 2.0-7.7 [facility] Comment on above: Performed By: #### L 500.2500, L100.0100 ####[facility] [address] [place], [address] Chest 1 View (Portable)on Chest 1 View (Portable) Normal [facility] Basic Metabolic Profile (BMP )on 02-04-2025 BUN/CRE 8.5 RATIO Low 10-20 [facility] Comment on above: Performed By: #### L 500.2500 ####[facility] [address] [place], [address] Calcium [Mass/Vol] 7.8 mg/dL Normal 7.6-11.0 [facility] Comment on above: Performed By: #### L 500.2500 ####[facility] [address] [place], [address] Chloride [Moles/Vol] 107 mmol/L Normal 98-108 [facility] Comment on above: Performed By: #### L 500.2500 ####[facility] [address] [place], [address] CO2 [Moles/Vol] 22.9 mmol/L Normal 21.0-32.0 [facility] Comment on above: Performed By: #### L 500.2500 ####[facility] [address] [place], [address] Creatinine [Mass/Vol] 4.48 mg/dL High 0.70-1.20 [facility] Comment on above: Performed By: #### L 500.2500 ####[facility] [address] [place], [address] ECRCL 14.16 ml/min Low 50-250 [facility] Comment on above: Performed By: #### L 500.2500 ####[facility] [address] [place], [address] GAP 9 Normal 5-15 [facility] Comment on above: Performed By: #### L 500.2500 ####[facility] [address] [place], [address] GFR/1.73 sq M.predicted among non-blacks MDRD (S/P/Bld) [Vol rate/Area] 12 mL/min/{1.73_m2} Low >60 [facility] Comment on above: Result Comment: mL/m in/1.73m2 CKD-EPI Creatinine Equation (2020) Performed By: #### L 500.2500 ####[facility] [address] [place], [address] Glucose [Mass/Vol] 126 mg/dL High 70-99 [facility] Comment on above: Performed By: #### L 500.2500 ####[facility] [address] [place], [address] Potassium [Moles/Vol] 3.8 mmol/L Normal 3.3-5.1 [facility] Comment on above: Performed By: #### L 500.2500 ####[facility] [address] [place], [address] Sodium [Moles/Vol] 139 mmol/L Normal 133-145 [facility] Comment on above: Performed By: #### L 500.2500 ####[facility] [address] [place], [address] Urea nitrogen [Mass/Vol] 38 mg/dL High 4-19 [facility] Comment on above: Performed By: #### L 500.2500 ####[facility] [address] [place], [address] CBC W/Diff, Automatedon 01-20 PLT EST ADEQUATE Normal ADEQ [facility] Comment on above: Performed By: #### L 100.0100 ####[facility] [address] [place], [address] Absolute Lymph 0.25 X10 3/uL Low 0.83-4.51 [facility] Comment on above: Performed By: #### L 100.0100 ####[facility] [address] [place], [address] Absolute Neut 11.4 X10 3/uL High 2.0-7.7 [facility] Comment on above: Performed By: #### L 100.0100 ####[facility] [address] [place], [address] Consultation - Infectious Dx on 02-04-2025 Consultation - Infectious Dx Normal [facility] Microalbumin,Random Urineon 02-04-2025 MICROALBUMIN,UR 26.2 mg/L Normal <20 mg/L [facility] Comment on above: Performed By: #### L 502.0500 ####[facility] [address] [place], [address] Osmolality urOrdered By: Yemi Abad on 02-04-2025 Osmolality (U) [Osmolality] 286 mOsm/KG >50 [facility] Osmolality, Urineon 02-05-20 25 OSMOLALITY,UR 286 mOsm/KG Normal [facility] Comment on above: Result Comment: Norm al Urine Reference Ranges Random: 50 - 1200 mOsm/kg H20 depending on fluid intake Random: >850 mOsm/kg after 12 hour fluid restriction 24 hour: 300 - 900 mOsm/kg H2O Performed By: #### L 501.7400 ####[facility] [address] [place], [address] Protein+Creatinine Ratio,Uri neon 02-04-2025 PROT:CRE RATIO 374 mg/g CRE High 0-200 [facility] Comment on above: Performed By: #### L 501.0900 ####[facility] [address] [place], [address] UR CREAT 32.90 mg/dL Low 39.00-259.00 [facility] Comment on above: Performed By: #### L 501.0900 ####[facility] [address] [place], [address] Random urine creatinine ana urement (mass/volume)Ordered By: Dusty Abad on 02-04-2025 Creatinine Unsp time (U) [Mass/Vol] 32.90 mg/dL Low 39.00-259.00 [facility] Urine Electrolytes- Randomon 02-04-2025 Chloride,URINE 92 mmol/L Normal Not Establ. [facility] Comment on above: Performed By: #### L 500.9400 ####[facility] [address] [place], [address] UR K 15.2 mmol/L Normal Not Establ. [facility] Comment on above: Performed By: #### L 500.9400 ####[facility] [address] [place], [address] Urine albumin measurement wi th detection limit of 20 mg/L or less (mass/volume)Ordered By: Dusty Abad on 02-04-2025 Albumin DL <= 20 mg/L (U) [Mass/Vol] 26.2 mg/L <20 mg/L [facility] Urine potassium measurement (moles/volume)Ordered By: Dusty Abad on 02-04-2025 Potassium (U) [Moles/Vol] 15.2 mmol/L Not Estab l. [facility] Urine protein measurement (m ass/volume)Ordered By: Dusty Abad on 02-04-2025 Protein (U) [Mass/Vol] 12.3 mg/dL High 0.0-12.0 [facility] Comment on above: Performed By: #### L 501.0900 ####[facility] [address] [place], [place], [id number] Urine protein/creatinine mas s ratioOrdered By: Dusty Abad on 02-04-2025 Protein/Creatinine (U) [Mass ratio] 374 mg/g CRE High 0-200 [facility] Urine sodium measurement (mo les/volume)Ordered By: Dusty Abad on 02-04-2025 Sodium (U) [Moles/Vol] 97 mmol/L Normal Not Establ. [facility] Comment on above: Performed By: #### L 500.9400 ####[facility] [address] [place], [address] Basic Metabolic Profile (BMP )on 02-03-2025 BUN/CRE 8.8 RATIO Low 10-20 [facility] Comment on above: Performed By: #### L 500.2500 ####[facility] [address] [place], [address] Calcium [Mass/Vol] 8.2 mg/dL Normal 7.6-11.0 [facility] Comment on above: Performed By: #### L 500.2500 ####[facility] [address] [place], [address] Chloride [Moles/Vol] 105 mmol/L Normal 98-108 [facility] Comment on above: Performed By: #### L 500.2500 ####[facility] [address] [place], [address] CO2 [Moles/Vol] 22.7 mmol/L Normal 21.0-32.0 [facility] Comment on above: Performed By: #### L 500.2500 ####[facility] [address] [place], [address] Creatinine [Mass/Vol] 4.27 mg/dL High 0.70-1.20 [facility] Comment on above: Performed By: #### L 500.2500 ####[facility] [address] [place], [address] ECRCL 14.86 ml/min Low 50-250 [facility] Comment on above: Performed By: #### L 500.2500 ####[facility] [address] [place], [address] GAP 12 Normal 5-15 [facility] Comment on above: Performed By: #### L 500.2500 ####[facility] [address] [place], [address] GFR/1.73 sq M.predicted among non-blacks MDRD (S/P/Bld) [Vol rate/Area] 13 mL/min/{1.73_m2} Low >60 [facility] Comment on above: Result Comment: mL/m in/1.73m2 CKD-EPI Creatinine Equation (2020) Performed By: #### L 500.2500 ####[facility] [address] [place], [address] Glucose [Mass/Vol] 93 mg/dL Normal 70-99 [facility] Comment on above: Performed By: #### L 500.2500 ####[facility] [address] [place], [address] Potassium [Moles/Vol] 4.0 mmol/L Normal 3.3-5.1 [facility] Comment on above: Performed By: #### L 500.2500 ####[facility] [address] [place], [address] Sodium [Moles/Vol] 140 mmol/L Normal 133-145 [facility] Comment on above: Performed By: #### L 500.2500 ####[facility] [address] [place], [address] Urea nitrogen [Mass/Vol] 37 mg/dL High 4-19 [facility] Comment on above: Performed By: #### L 500.2500 ####[facility] [address] [place], [address] Complement C3on 02-03-2025 COMP C3 131 mg/dL Normal 82-167 [facility] Comment on above: Result Comment: Perf ormed at: CB - [facility] [address] [id number] Director: Angelito Hdz PhD, Phone: [phone] Performed By: #### L 501.8820, L501.8850, L3100.5800, L3100.5700 ####[facility] [address] [place], [address] Complement C4on 02-03-2025 COMPLEMENT, C4 23 mg/dL Normal 12-38 [facility] Comment on above: Performed By: #### L 501.8820, L501.8850, L3100.5800, L3100.5700 ####[facility] [address] [place], [address] Basic Metabolic Profile (BMP )on 02-02-2025 BUN/CRE 9.5 RATIO Low 10-20 [facility] Comment on above: Performed By: #### L 100.0100, L500.2500 ####[facility] [address] [place], [address] Calcium [Mass/Vol] 8.2 mg/dL Normal 7.6-11.0 [facility] Comment on above: Performed By: #### L 100.0100, L500.2500 ####[facility] [address] [place], [address] Chloride [Moles/Vol] 106 mmol/L Normal 98-108 [facility] Comment on above: Performed By: #### L 100.0100, L500.2500 ####[facility] [address] [place], [address] CO2 [Moles/Vol] 20.0 mmol/L Low 21.0-32.0 [facility] Comment on above: Performed By: #### L 100.0100, L500.2500 ####[facility] [address] [place], [address] Creatinine [Mass/Vol] 3.77 mg/dL High 0.70-1.20 [facility] Comment on above: Performed By: #### L 100.0100, L500.2500 ####[facility] [address] [place], [address] ECRCL 16.81 ml/min Low 50-250 [facility] Comment on above: Performed By: #### L 100.0100, L500.2500 ####[facility] [address] [place], [address] GAP 14 Normal 5-15 [facility] Comment on above: Performed By: #### L 100.0100, L500.2500 ####[facility] [address] [place], [address] GFR/1.73 sq M.predicted among non-blacks MDRD (S/P/Bld) [Vol rate/Area] 15 mL/min/{1.73_m2} Low >60 [facility] Comment on above: Result Comment: mL/m in/1.73m2 CKD-EPI Creatinine Equation (2020) Performed By: #### L 100.0100, L500.2500 ####[facility] [address] [place], [address] Glucose [Mass/Vol] 103 mg/dL High 70-99 [facility] Comment on above: Performed By: #### L 100.0100, L500.2500 ####[facility] [address] [place], [address] Potassium [Moles/Vol] 3.9 mmol/L Normal 3.3-5.1 [facility] Comment on above: Performed By: #### L 100.0100, L500.2500 ####[facility] [address] [place], [address] Sodium [Moles/Vol] 139 mmol/L Normal 133-145 [facility] Comment on above: Performed By: #### L 100.0100, L500.2500 ####[facility] [address] [place], [address] Urea nitrogen [Mass/Vol] 36 mg/dL High 4-19 [facility] Comment on above: Performed By: #### L 100.0100, L500.2500 ####[facility] [address] [place], [address] Basophil percentageOrdered B y: Demetrius Sotojamarcussilvia on 02-02-2025 Basophils/100 WBC (Bld) 0.3 % 0-1 [facility] CBC W/Diff, Automatedon 01-20-2024 Absolute Lymph 0.86 X10 3/uL Normal 0.83-4.51 [facility] Comment on above: Performed By: #### L 100.0100, L500.2500 ####[facility] [address] [place], [address] Absolute Neut 12.7 X10 3/uL High 2.0-7.7 [facility] Comment on above: Performed By: #### L 100.0100, L500.2500 ####[facility] [address] [place], [address] Platelet mean volume (Bld) [Entitic vol] 9.5 fL Normal 6.2-12.0 [facility] Comment on above: Performed By: #### L 100.0100, L500.2500 ####[facility] [address] [place], [address] Basophils/100 WBC (Bld) 0.3 % Normal 0-1 [facility] Comment on above: Performed By: #### L 100.0100, L500.2500 ####[facility] [address] [place], [address] Eosinophils/100 WBC (Bld) 0.6 % Normal 0-5 [facility] Comment on above: Performed By: #### L 100.0100, L500.2500 ####[facility] [address] [place], [address] Erythrocyte distribution width (RBC) [Ratio] 13.2 % Normal 11.6-14.6 [facility] Comment on above: Performed By: #### L 100.0100, L500.2500 ####[facility] [address] [place], [address] Hematocrit (Bld) [Volume fraction] 29.0 % Low 40-54 [facility] Comment on above: Performed By: #### L 100.0100, L500.2500 ####[facility] [address] [place], [address] Hemoglobin (Bld) [Mass/Vol] 9.8 g/dL Low 13.0-16.5 [facility] Comment on above: Performed By: #### L 100.0100, L500.2500 ####[facility] [address] [place], [address] IG% 2.900 High 0.0-0.9 [facility] Comment on above: Result Comment: IG% - Immature Granulocytes (promyelocytes, myelocytes andmetamyelocytes) > 1% indicates that a LEFT SHIFT is Present. Performed By: #### L 100.0100, L500.2500 ####[facility] [address] [place], [address] Lymphocytes/100 WBC (Bld) 5.8 % Low 19-41 [facility] Comment on above: Performed By: #### L 100.0100, L500.2500 ####[facility] [address] [place], [address] MCH (RBC) [Entitic mass] 32.2 pg High 27.0-32.0 [facility] Comment on above: Performed By: #### L 100.0100, L500.2500 ####[facility] [address] [place], [address] MCHC (RBC) [Mass/Vol] 33.8 g/dL Normal 32-36 [facility] Comment on above: Performed By: #### L 100.0100, L500.2500 ####[facility] [address] [place], [address] MCV (RBC) [Entitic vol] 95.4 fL High 80-94 [facility] Comment on above: Performed By: #### L 100.0100, L500.2500 ####[facility] [address] [place], [address] Monocytes/100 WBC (Bld) 5.2 % Normal 0-10 [facility] Comment on above: Performed By: #### L 100.0100, L500.2500 ####[facility] [address] [place], [address] Neutrophils/100 WBC (Bld) 85.2 % High 47-70 [facility] Comment on above: Performed By: #### L 100.0100, L500.2500 ####[facility] [address] [place], [address] Platelets (Bld) [#/Vol] 216 10*3/uL Normal 150-450 [facility] Comment on above: Performed By: #### L 100.0100, L500.2500 ####[facility] [address] [place], [address] RBC (Bld) [#/Vol] 3.04 10*6/uL Low 4.6-6.2 [facility] Comment on above: Performed By: #### L 100.0100, L500.2500 ####[facility] [address] [place], [address] RDW SD 45.9 fl High 35.1-43.9 [facility] Comment on above: Performed By: #### L 100.0100, L500.2500 ####[facility] [address] [place], [address] WBC (Bld) [#/Vol] 14.9 10*3/uL High 4.4-11.0 [facility] Comment on above: Performed By: #### L 100.0100, L500.2500 ####[facility] [address] [place], [address] Consultation - Nephrologyon 02-02-2025 Consultation - Nephrology Normal [facility] Culture, Blood (WB)on 2024 CUB Blood cultures x2, from two different sites No growth in 5 days. Normal [facility] Comment on above: Performed By: #### L 503.6005, L300.3900, L300.4310, L100.0100, L500.4050, M200.1000 ####[facility] [address] [place], [address] Eosinophil %Ordered By: Demetrius Nash on 02-02-2025 Eosinophils/100 WBC (Bld) 0.6 % 0-5 [facility] Immature granulocyte percent ageOrdered By: Demetrius Nash on 02-02-2025 Immature granulocytes/100 WBC (Bld) 2.900 % High 0.0-0.9 [facility] Lymphocyte %Ordered By: Demetrius Nash on 02-02-2025 Lymphocytes/100 WBC (Bld) 5.8 % Low 19-41 [facility] Monocyte percentageOrdered B y: Demetrius Nash on 02-02-2025 Monocytes/100 WBC (Bld) 5.2 % 0-10 [facility] Serum or plasma complement C 4 measurement (mass/volume)Ordered By: Lise Moreno on 02-02-2025 Complement C4 [Mass/Vol] 23 mg/dL 12-38 [facility] Serum or plasma vancomycin m easurement (mass/volume)Ordered By: Lise Moreno on 02-02-2025 Vancomycin [Mass/Vol] 31.7 ug/mL High 0.0-15.0 [facility] Trough vancomycin levelOrder ed By: Lise Tiffanie on 02-02-2025 Vancomycin trough [Mass/Vol] 31.7 ug/mL High 5.0-15.0 [facility] Vancomycin, Random Levelon 0 02-02-2025 VANCO, RANDOM 31.7 ug/mL High 0.0-15.0 [facility] Comment on above: Result Comment: VANC OMYCIN STANDARD DRUG THERAPY: CRITICAL VALUE IS > 15.0 mg/LVANCOMYCIN HIGH INTENSITY THERAPY: CRITICAL VALUE IS > 20.0 mg/LPLEASE CONTACT PHARMACY SERVICES (#4349) FOR INTERPRETATIONOF RESULTS. THIS RESULT DOES NOT REPRESENT A PEAK OR TROUGHLEVEL FOR THIS DRUG. Performed By: #### L 501.8820, L501.8850, L3100.5800, L3100.5700 ####[facility] [address] [place], [address] Vancomycin, Trough Levelon 0 02-02-2025 VANCO, TROUGH 31.7 ug/mL High 5.0-15.0 [facility] Comment on above: Result Comment: Edgardo mmended goal trough ranges [...] therapy recommended for serious lifethreatening infections include:- Zbljzfamlh-Mrphcnughulu-Qtwqapumg (Ventilator/Healtcare Associated)-SepsisPLEASE CONTACT PHARMACY SERVICES (#3689) FOR INTERPRETATIONOF RESULTS. Performed By: #### L 501.8820, L501.8850, L3100.5800, L3100.5700 ####[facility] [address] [place], [place], [id number] Urine Cultureon 02-01-2025 URC Normal [facility] Comment on above: Performed By: #### M 100.2200, L400.0001 ####[facility] [address] [place], [address] Basic Metabolic Profile (BMP )on 01-31-2025 BUN/CRE 10.4 RATIO Normal 10-20 [facility] Comment on above: Performed By: #### L 500.2500, L100.0500 ####[facility] [address] [place], [address] Calcium [Mass/Vol] 7.8 mg/dL Normal 7.6-11.0 [facility] Comment on above: Performed By: #### L 500.2500, L100.0500 ####[facility] [address] [place], [address] Chloride [Moles/Vol] 109 mmol/L High 98-108 [facility] Comment on above: Performed By: #### L 500.2500, L100.0500 ####[facility] [address] [place], [address] CO2 [Moles/Vol] 22.6 mmol/L Normal 21.0-32.0 [facility] Comment on above: Performed By: #### L 500.2500, L100.0500 ####[facility] [address] [place], [address] Creatinine [Mass/Vol] 2.08 mg/dL High 0.70-1.20 [facility] Comment on above: Performed By: #### L 500.2500, L100.0500 ####[facility] [address] [place], [address] ECRCL 26.94 ml/min Low 50-250 [facility] Comment on above: Performed By: #### L 500.2500, L100.0500 ####[facility] [address] [place], [address] GAP 9 Normal 5-15 [facility] Comment on above: Performed By: #### L 500.2500, L100.0500 ####[facility] [address] [place], [address] GFR/1.73 sq M.predicted among non-blacks MDRD (S/P/Bld) [Vol rate/Area] 30 mL/min/{1.73_m2} Low >60 [facility] Comment on above: Result Comment: mL/m in/1.73m2 CKD-EPI Creatinine Equation (2020) Performed By: #### L 500.2500, L100.0500 ####[facility] [address] [place], [address] Glucose [Mass/Vol] 132 mg/dL High 70-99 [facility] Comment on above: Performed By: #### L 500.2500, L100.0500 ####[facility] [address] [place], [address] Potassium [Moles/Vol] 3.7 mmol/L Normal 3.3-5.1 [facility] Comment on above: Performed By: #### L 500.2500, L100.0500 ####[facility] [address] [place], [address] Sodium [Moles/Vol] 141 mmol/L Normal 133-145 [facility] Comment on above: Performed By: #### L 500.2500, L100.0500 ####[facility] [address] [place], [address] Urea nitrogen [Mass/Vol] 22 mg/dL High 4-19 [facility] Comment on above: Performed By: #### L 500.2500, L100.0500 ####[facility] [address] [place], [address] CBC-Complete Blood Cnt No Di ffon 01-31-2025 Erythrocyte distribution width (RBC) [Ratio] 13.0 % Normal 11.6-14.6 [facility] Comment on above: Performed By: #### L 500.2500, L100.0500 ####[facility] [address] [place], [address] Hematocrit (Bld) [Volume fraction] 26.6 % Low 40-54 [facility] Comment on above: Performed By: #### L 500.2500, L100.0500 ####[facility] [address] [place], [address] Hemoglobin (Bld) [Mass/Vol] 8.9 g/dL Low 13.0-16.5 [facility] Comment on above: Performed By: #### L 500.2500, L100.0500 ####[facility] [address] [place], [address] MCH (RBC) [Entitic mass] 31.8 pg Normal 27.0-32.0 [facility] Comment on above: Performed By: #### L 500.2500, L100.0500 ####[facility] [address] [place], [address] MCHC (RBC) [Mass/Vol] 33.5 g/dL Normal 32-36 [facility] Comment on above: Performed By: #### L 500.2500, L100.0500 ####[facility] [address] [place], [address] MCV (RBC) [Entitic vol] 95.0 fL High 80-94 [facility] Comment on above: Performed By: #### L 500.2500, L100.0500 ####[facility] [address] [place], [address] Platelet mean volume (Bld) [Entitic vol] 9.4 fL Normal 6.2-12.0 [facility] Comment on above: Performed By: #### L 500.2500, L100.0500 ####[facility] [address] [place], [address] Platelets (Bld) [#/Vol] 149 10*3/uL Low 150-450 [facility] Comment on above: Performed By: #### L 500.2500, L100.0500 ####[facility] [address] [place], [address] RBC (Bld) [#/Vol] 2.80 10*6/uL Low 4.6-6.2 [facility] Comment on above: Performed By: #### L 500.2500, L100.0500 ####[facility] [address] [place], [address] RDW SD 45.2 fl High 35.1-43.9 [facility] Comment on above: Performed By: #### L 500.2500, L100.0500 ####[facility] [address] [place], [address] WBC (Bld) [#/Vol] 26.0 10*3/uL High 4.4-11.0 [facility] Comment on above: Performed By: #### L 500.2500, L100.0500 ####[facility] [address] [place], [address] RESPIRATORY PANEL MOLECULARo n 01-31-2025 RP PANEL Normal [facility] Comment on above: Performed By: #### M 100.638 ####[facility] [address] [place], [address] Respiratory pathogens detect ion panel by molecular detection methodOrdered By: Alex Espino on 01-31-2025 Respiratory pathogens DNA and RNA panel LILY+probe (Resp) [facility] Absolute lymphocyte countOrd ered By: Booker Rodríguez on 01-30-2025 Lymphocytes Auto (Unsp spec) [#/Vol] 0.38 10*3/uL Low 0.83-4.51 [facility] Absolute neutrophil countOrd ered By: Booker Rodríguez on 01-30-2025 Neutrophils (Bld) [#/Vol] 5.2 10*3/uL 2.0-7.7 [facility] Activated partial thrombopla stin time (aPTT) in platelet poor plasma by coagulation aOrdered By: Booker Rodríguez on 01-30-2025 aPTT Coag (PPP) [Time] 25.1 s 24.1-36.2 [facility] Anion gap in Serum or Plasma Ordered By: Booker Rodríguez on 01-30-2025 Anion gap [Moles/Vol] 13 mmol/L 5-15 [facility] BUN/creatinine ratioOrdered By: Booker Rodríguez on 01-30-2025 Urea nitrogen/Creatinine [Mass ratio] 11.9 mg/mg 10-20 [facility] Bilirubin Test strip Ql (U)O rdered By: Booker Rodríguez on 01-30-2025 Bilirubin Ql (U) Negative Negative [facility] Bilirubin, totalOrdered By: Booker Rodríguez on 01-30-2025 Bilirubin [Mass/Vol] 0.49 mg/dL 0.00-1.30 [facility] Blood band neutrophil count as percentage of total leukocytesOrdered By: Booker Rodríguez on 01-30-2025 Band form neutrophils/100 WBC (Bld) 13 % High 0-5 [facility] Blood cultureOrdered By: Helen Rodríguez on 01-30-2025 Bacteria identified Cx Nom (Bld) No growth in 5 days. [facility] Bacteria identified Cx Nom (Bld) No growth in 5 days. [facility] Blood eosinophils/100 leukoc ytesOrdered By: Booker Rodríguez on 01-30-2025 Eosinophils/100 WBC (Bld) 2 % 0-5 [facility] Blood lymphocytes/100 leukoc ytesOrdered By: Booker Rodríguez on 01-30-2025 Lymphocytes/100 WBC (Bld) 6 % Low 19-41 [facility] Blood metamyelocytes/100 katherine kocytesOrdered By: Booker Rodríguez on 01-30-2025 Metamyelocytes/100 WBC (Bld) 2 % High 0-1 [facility] Blood monocytes/100 leukocyt esOrdered By: Booker Rodríguez on 01-30-2025 Monocytes/100 WBC (Bld) 3 % 0-10 [facility] Blood segmented neutrophils/ 100 leukocytesOrdered By: Booker Rodríguez on 01-30-2025 Segmented neutrophils/100 WBC (Bld) 70 % 47-70 [facility] CBC W/Diff, Automatedon 07- PATH REV May foll Normal [facility] Comment on above: Performed By: #### L 503.6005, L300.3900, L300.4310, L100.0100, L500.4050, M200.1000 ####[facility] [address] [place], [address] PLT EST ADEQUATE Normal ADEQ [facility] Comment on above: Performed By: #### L 503.6005, L300.3900, L300.4310, L100.0100, L500.4050, M200.1000 ####[facility] [address] [place], [address] Absolute Lymph 0.38 X10 3/uL Low 0.83-4.51 [facility] Comment on above: Performed By: #### L 503.6005, L300.3900, L300.4310, L100.0100, L500.4050, M200.1000 ####[facility] [address] [place], [address] Absolute Neut 5.2 X10 3/uL Normal 2.0-7.7 [facility] Comment on above: Performed By: #### L 503.6005, L300.3900, L300.4310, L100.0100, L500.4050, M200.1000 ####[facility] [address] [place], [address] BAND 13 High 0-5 [facility] Comment on above: Performed By: #### L 503.6005, L300.3900, L300.4310, L100.0100, L500.4050, M200.1000 ####[facility] [address] [place], [address] Eosinophils/100 WBC (Bld) 2 % Normal 0-5 [facility] Comment on above: Performed By: #### L 503.6005, L300.3900, L300.4310, L100.0100, L500.4050, M200.1000 ####[facility] [address] [place], [address] Lymphocytes (Bld) [#/Vol] 6 10*3/uL Low 19-41 [facility] Comment on above: Performed By: #### L 503.6005, L300.3900, L300.4310, L100.0100, L500.4050, M200.1000 ####[facility] [address] [place], [address] MONOCYTE 3 Normal 0-10 [facility] Comment on above: Performed By: #### L 503.6005, L300.3900, L300.4310, L100.0100, L500.4050, M200.1000 ####[facility] [address] [place], [address] META 2 High 0-1 [facility] Comment on above: Performed By: #### L 503.6005, L300.3900, L300.4310, L100.0100, L500.4050, M200.1000 ####[facility] [address] [place], [address] Metamyelocytes/100 WBC (Bld) 4 % High 0-0 [facility] Comment on above: Performed By: #### L 503.6005, L300.3900, L300.4310, L100.0100, L500.4050, M200.1000 ####[facility] [address] [place], [address] SEGS 70 Normal 47-70 [facility] Comment on above: Performed By: #### L 503.6005, L300.3900, L300.4310, L100.0100, L500.4050, M200.1000 ####[facility] [address] [place], [address] TOTAL CELLS 100 Normal MANUAL DIFF [facility] Comment on above: Performed By: #### L 503.6005, L300.3900, L300.4310, L100.0100, L500.4050, M200.1000 ####[facility] [address] [place], [address] Carbon dioxide, total [Moles /volume] in Central venous bloodOrdered By: Booker Rodríguez on 01-30-2025 CO2 [Moles/Vol] 23.6 mmol/L 21.0-32.0 [facility] Chest 1 View (Portable)on Chest 1 View (Portable) Normal [facility] Chloride assayOrdered By: Gagan Rodríguez on 01-30-2025 Chloride [Moles/Vol] 104 mmol/L 98-108 [facility] Comprehensive Metabolic Prof ilon 01-30-2025 Albumin [Mass/Vol] 2.9 g/dL Low 3.4-4.8 [facility] Comment on above: Performed By: #### L 503.6005, L300.3900, L300.4310, L100.0100, L500.4050, M200.1000 ####[facility] [address] [place], [address] Albumin/Globulin [Mass ratio] 0.8 {ratio} Low 0.9-2.4 [facility] Comment on above: Performed By: #### L 503.6005, L300.3900, L300.4310, L100.0100, L500.4050, M200.1000 ####[facility] [address] [place], [address] ALK PHOS 198 U/L High 40-129 [facility] Comment on above: Performed By: #### L 503.6005, L300.3900, L300.4310, L100.0100, L500.4050, M200.1000 ####[facility] [address] [place], [address] ALT [Catalytic activity/Vol] 33 U/L Normal <=46 [facility] Comment on above: Performed By: #### L 503.6005, L300.3900, L300.4310, L100.0100, L500.4050, M200.1000 ####[facility] [address] [place], [address] AST [Catalytic activity/Vol] 29 U/L Normal <=37 [facility] Comment on above: Performed By: #### L 503.6005, L300.3900, L300.4310, L100.0100, L500.4050, M200.1000 ####[facility] [address] [place], [address] Bilirubin [Mass/Vol] 0.49 mg/dL Normal 0.00-1.30 [facility] Comment on above: Performed By: #### L 503.6005, L300.3900, L300.4310, L100.0100, L500.4050, M200.1000 ####[facility] [address] [place], [address] BUN/CRE 11.9 RATIO Normal 10-20 [facility] Comment on above: Performed By: #### L 503.6005, L300.3900, L300.4310, L100.0100, L500.4050, M200.1000 ####[facility] [address] [place], [address] Calcium [Mass/Vol] 8.9 mg/dL Normal 7.6-11.0 [facility] Comment on above: Performed By: #### L 503.6005, L300.3900, L300.4310, L100.0100, L500.4050, M200.1000 ####[facility] [address] [place], [address] Chloride [Moles/Vol] 104 mmol/L Normal 98-108 [facility] Comment on above: Performed By: #### L 503.6005, L300.3900, L300.4310, L100.0100, L500.4050, M200.1000 ####[facility] [address] [place], [address] CO2 [Moles/Vol] 23.6 mmol/L Normal 21.0-32.0 [facility] Comment on above: Performed By: #### L 503.6005, L300.3900, L300.4310, L100.0100, L500.4050, M200.1000 ####[facility] [address] [place], [address] Creatinine [Mass/Vol] 1.89 mg/dL High 0.70-1.20 [facility] Comment on above: Performed By: #### L 503.6005, L300.3900, L300.4310, L100.0100, L500.4050, M200.1000 ####[facility] [address] [place], [address] ECRCL 32.29 ml/min Low 50-250 [facility] Comment on above: Performed By: #### L 503.6005, L300.3900, L300.4310, L100.0100, L500.4050, M200.1000 ####[facility] [address] [place], [address] GAP 13 Normal 5-15 [facility] Comment on above: Performed By: #### L 503.6005, L300.3900, L300.4310, L100.0100, L500.4050, M200.1000 ####[facility] [address] [place], [address] GFR/1.73 sq M.predicted among non-blacks MDRD (S/P/Bld) [Vol rate/Area] 34 mL/min/{1.73_m2} Low >60 [facility] Comment on above: Result Comment: mL/m in/1.73m2 CKD-EPI Creatinine Equation (2020) Performed By: #### L 503.6005, L300.3900, L300.4310, L100.0100, L500.4050, M200.1000 ####[facility] [address] [place], [address] Globulin (S) [Mass/Vol] 3.6 g/dL Normal 2.2-4.2 [facility] Comment on above: Performed By: #### L 503.6005, L300.3900, L300.4310, L100.0100, L500.4050, M200.1000 ####[facility] [address] [place], [address] Glucose [Mass/Vol] 113 mg/dL High 70-99 [facility] Comment on above: Performed By: #### L 503.6005, L300.3900, L300.4310, L100.0100, L500.4050, M200.1000 ####[facility] [address] [place], [address] Potassium [Moles/Vol] 3.3 mmol/L Normal 3.3-5.1 [facility] Comment on above: Performed By: #### L 503.6005, L300.3900, L300.4310, L100.0100, L500.4050, M200.1000 ####[facility] [address] [place], [address] Sodium [Moles/Vol] 141 mmol/L Normal 133-145 [facility] Comment on above: Performed By: #### L 503.6005, L300.3900, L300.4310, L100.0100, L500.4050, M200.1000 ####[facility] [address] [place], [place], [address] T PROT 6.5 g/dL Normal 5.9-8.4 [facility] Comment on above: Performed By: #### L 503.6005, L300.3900, L300.4310, L100.0100, L500.4050, M200.1000 ####[facility] [address] [place], [place], [address] Urea nitrogen [Mass/Vol] 23 mg/dL High 4-19 [facility] Comment on above: Performed By: #### L 503.6005, L300.3900, L300.4310, L100.0100, L500.4050, M200.1000 ####[facility] [address] [place], [place], [address] Emergency Department Summary on 01-30-2025 Emergency Department Summary Normal [facility] Erythrocyte distribution wid th ratioOrdered By: Booker Rodríguez on 01-30-2025 Erythrocyte distribution width (RBC) [Ratio] 12.7 % 11.6-14.6 [facility] Erythrocyte distribution wid th standard deviationOrdered By: Booker Rodríguez on 01-30-2025 Erythrocyte distribution width (RBC) [Ratio] 44.1 fl High 35.1-43.9 [facility] Glomerular filtration rate ( GFR) estimation/1.73 sq m using serum, plasma, or whole bOrdered By: Booker Rodríguez on 01-30-2025 GFR/1.73 sq M.predicted among non-blacks MDRD (S/P/Bld) [Vol rate/Area] 34 mL/min/{1.73_m2} Low >60 [facility] Comment on above: mL/min/1.73m2 CKD-EP I Creatinine Equation (2020) H AND P Exam - Hospitaliston 01-30-2025 H&P Exam - Hospitalist Normal [facility] Hematocrit Auto (Bld) [Volum e fraction]Ordered By: Booker Barajasluisito on 01-30-2025 Hematocrit (Bld) [Volume fraction] 33.5 % Low 40-54 [facility] Hemoglobin measurementOrdere d By: Booker Barajasluisito on 01-30-2025 Hemoglobin (Bld) [Mass/Vol] 11.3 g/dL Low 13.0-16.5 [facility] International normalized rat io (INR) calculationOrdered By: Booker Rodríguez on 01-30-2025 INR Coag (Bld) [Relative time] 1.0 {INR} [facility] Ketones Test strip Ql (U)Ord ered By: Booker Rodríguez on 01-30-2025 Ketones Ql (U) Negative Negative [facility] Kidney and Bladderon 025 Kidney and Bladder Normal [facility] Laboratory - Chemistry and C hemistry - challengeOrdered By: Booker Rodríguez on 01-30-2025 AST [Catalytic activity/Vol] 29 U/L <38 [facility] Lactic Acidon 01-30-2025 Lactate [Moles/Vol] 2.0 mmol/L Normal 0.0-2.0 [facility] Comment on above: Result Comment: Crit ical Result(s) Called at: 2356 by:??UBALDO MERINO TDEVOUROU. Results read back by same. Performed By: #### L 503.6005 ####[facility] [address] [place], [place], [id number] Lactate [Moles/Vol] 2.6 mmol/L Invalid Interpretation Code 0.0-2.0 [facility] Comment on above: Order Comment: Y Result Comment: Crit ical Result(s) Called at: 01/30/2025-19:20 by: Will Quintero.??Results read back by same. Performed By: #### L 503.6005, L300.3900, L300.4310, L100.0100, L500.4050, M200.1000 ####[facility] [address] [place], [place], [address] Lactic acid measurementOrder ed By: Booker Rodríguez on 01-30-2025 Lactate [Moles/Vol] 2.6 mmol/L High 0.0-2.0 [facility] Comment on above: Critical Result(s) C alled at: 01/30/2025-19:20 by: Prosper Garces to Fiona Quintero. Results read back by same. MCV (mean corpuscular volume ) determinationOrdered By: Booker Rodríguez on 01-30-2025 MCV (RBC) [Entitic vol] 94.4 fL High 80-94 [facility] Magnesiumon 01-30-2025 Magnesium [Mass/Vol] 1.7 mg/dL Normal 1.5-2.2 [facility] Comment on above: Performed By: #### L 501.2300, L501.5200 ####[facility] [address] [place], [place], [address] Magnesium measurement (mass/ volume)Ordered By: Alex Espino on 01-30-2025 Magnesium (Unsp spec) [Mass/Vol] 1.7 mg/dL 1.5-2.2 [facility] Mean corpuscular hemoglobin (MCH) determinationOrdered By: Booker Rodríguez on 01-30-2025 MCH (RBC) [Entitic mass] 31.8 pg 27.0-32.0 [facility] Mean corpuscular hemoglobin concentration (MCHC) determinationOrdered By: Booker Rodríguez on 01-30-2025 MCHC (RBC) [Mass/Vol] 33.7 g/dL 32-36 [facility] Mean platelet volume determi nationOrdered By: Booker Rodríguez on 01-30-2025 Platelet mean volume (Bld) [Entitic vol] 9.6 fL 6.2-12.0 [facility] Microscopic analysis of urin e for red blood cells (RBC)Ordered By: Booker Rodríguez on 01-30-2025 Microscopic analysis of urine for red blood cells (RBC) > 100 SEEN /hpf 0-5 [facility] Mucus LM Ql (Urine sed)Order ed By: Booker Rodríguez on 01-30-2025 Mucus Ql (Urine sed) 0 SEEN /hpf [facility] Myelocyte %Ordered By: Booker Rodríguez on 01-30-2025 Myelocytes/100 WBC (Bld) 4 % High 0-0 [facility] Nitrite Test strip Ql (U)Ord ered By: Booker Rodríguez on 01-30-2025 Nitrite Ql (U) Negative Negative [facility] No Panel InformationOrdered By: Booker Rodríguez on 01-30-2025 29 U/L <38 [facility] Partial Thromboplast Timeon 01-30-2025 aPTT Coag (Bld) [Time] 25.1 s Normal 24.1-36.2 [facility] Comment on above: Performed By: #### L 503.6005, L300.3900, L300.4310, L100.0100, L500.4050, M200.1000 ####[facility] [address] [place], [address] Phosphoruson 01-30-2025 Phosphate [Mass/Vol] 2.5 mg/dL Low 2.7-4.5 [facility] Comment on above: Performed By: #### L 501.2300, L501.5200 ####[facility] [address] [place], [address] Platelet countOrdered By: Gagan Rodríguez on 01-30-2025 Platelets (Bld) [#/Vol] 177 10*3/uL 150-450 [facility] Platelet estimateOrdered By: Booker Rodríguez on 01-30-2025 Platelets LM Ql (Bld) ADEQUATE ADEQ [facility] Potassium measurement (mass/ volume)Ordered By: Booker Rodríguez on 01-30-2025 Potassium (Unsp spec) [Mass/Vol] 3.3 mmol/L 3.3-5.1 [facility] Protein Test strip Ql (U)Ord ered By: Booker Rodríguez on 01-30-2025 Protein Ql (U) 100 mg/dl High Negative [facility] Prothrombin Time w/INRon INR Coag (PPP) [Relative time] 1.0 {INR} Normal [facility] Comment on above: Performed By: #### L 503.6005, L300.3900, L300.4310, L100.0100, L500.4050, M200.1000 ####[facility] [address] [place], [place], [address] PT Coag (PPP) [Time] 13.5 s Normal 11.7-14.9 [facility] Comment on above: Performed By: #### L 503.6005, L300.3900, L300.4310, L100.0100, L500.4050, M200.1000 ####[facility] [address] [place], [place], [id number] Prothrombin timeOrdered By: Booker Rodríguez on 01-30-2025 PT Coag (PPP) [Time] 13.5 s 11.7-14.9 [facility] RBC Auto (Bld) [#/Vol]Ordere d By: Booker Rodríguez on 01-30-2025 RBC (Bld) [#/Vol] 3.55 10*6/uL Low 4.6-6.2 [facility] Review by pathologistOrdered By: Booker Rodríguez on 01-30-2025 Pathologist review Derek (Unsp spec) [Interp] November [facility] Serum creatinine measurement (mass/volume)Ordered By: Booker Rodríguez on 01-30-2025 Creatinine [Mass/Vol] 1.89 mg/dL High 0.70-1.20 [facility] Serum globulin measurementOr dered By: Booker Rodríguez on 01-30-2025 Globulin (S) [Mass/Vol] 3.6 g/dL 2.2-4.2 [facility] Serum glucose measurement (m ass/volume)Ordered By: Booker Rodríguez on 01-30-2025 Glucose [Mass/Vol] 113 mg/dL High 70-99 [facility] Serum or plasma alanine meraz otransferase (ALT) measurementOrdered By: Booker Rodríguez on 01-30-2025 ALT [Catalytic activity/Vol] 33 U/L <47 [facility] Serum or plasma albumin ana urement (mass/volume)Ordered By: Booker Rodríguez on 01-30-2025 Albumin [Mass/Vol] 2.9 g/dL Low 3.4-4.8 [facility] Serum or plasma albumin/glob ulin mass ratioOrdered By: Booker Rodríguez on 01-30-2025 Albumin/Globulin [Mass ratio] 0.8 {ratio} Low 0.9-2.4 [facility] Serum or plasma alkaline keenan sphatase measurementOrdered By: Booker Rodríguez on 01-30-2025 ALP [Catalytic activity/Vol] 198 U/L High 40-129 [facility] Serum or plasma calcium ana urement (mass/volume)Ordered By: Booker Rodríguez on 01-30-2025 Calcium [Mass/Vol] 8.9 mg/dL 7.6-11.0 [facility] Serum or plasma urea nitroge n measurement (mass/volume)Ordered By: Booker Rodríguez on 01-30-2025 Urea nitrogen [Mass/Vol] 23 mg/dL High 4-19 [facility] Sodium levelOrdered By: Booker Rodríguez on 01-30-2025 Sodium [Moles/Vol] 141 mmol/L 133-145 [facility] Squamous epithelial cells de tection in urine sediment by light microscopyOrdered By: Booker Rodríguez on 01-30-2025 Epithelial cells.squamous LM Ql (Urine sed) 0-5 SEEN /hpf 0-5 [facility] Total cell countOrdered By: Booker Rodríguez on 01-30-2025 Cells counted Mol[employer] (Bld/Tiss) [#] 100 MANUAL DIFF [facility] Total proteinOrdered By: Helen Rodríguez on 01-30-2025 Protein [Mass/Vol] 6.5 g/dL 5.9-8.4 [facility] Urinalysis, Completeon 01-30 EPI,SQUAMOUS 0-5 SEEN Normal 0-5 [facility] Comment on above: Order Comment: JULIANNA TER SPECIMEN Performed By: #### M 100.2200, L400.0001 ####[facility] [address] [place], [address] RBC > 100 SEEN Normal 0-5 [facility] Comment on above: Order Comment: JULIANNA TER SPECIMEN Performed By: #### M 100.2200, L400.0001 ####[facility] [address] [place], [address] BACTERIA 4+ /hpf Normal None Seen [facility] Comment on above: Order Comment: JULIANNA TER SPECIMEN Performed By: #### M 100.2200, L400.0001 ####[facility] [address] [place], [address] WBC >100 SEEN Normal 0-5 [facility] Comment on above: Order Comment: JULIANNA TER SPECIMEN Performed By: #### M 100.2200, L400.0001 ####[facility] [address] [place], [address] Mucus Ql (Urine sed) 0 SEEN Normal [facility] Comment on above: Order Comment: JULIANNA TER SPECIMEN Performed By: #### M 100.2200, L400.0001 ####[facility] [address] [place], [address] Urine clarityOrdered By: Helen Rodríguez on 01-30-2025 Clarity (U) Turbid Clear [facility] Urine color determinationOrd ered By: Booker Rodríguez on 01-30-2025 Color (U) Yellow Yellow [facility] Urine cultureOrdered By: Helen Rodríguez on 01-30-2025 Bacteria identified Cx Nom (U) Klebsiella pneumoniae sp pneum Abnormal [facility] Urine glucose detectionOrder ed By: Booker Rodríguez on 01-30-2025 Glucose Ql (U) Normal mg/dl Normal [facility] Urine leukocyte esterase det ection by dipstickOrdered By: Booker Rodríguez on 01-30-2025 Leukocyte esterase Test strip Ql (U) 500 /ul High Negative [facility] Urine pHOrdered By: Booker chaudhari on 01-30-2025 pH (U) 6.0 [pH] 5.0 - 8.0 [facility] Urine sediment bacteria coun t by microscopy (number/high power field)Ordered By: Booker Rodríguez on 01-30-2025 Bacteria LM.HPF (Urine sed) [#/Area] 4 /[HPF] None Seen [facility] Urine specific gravity measu rementOrdered By: Booker Rodríguez on 01-30-2025 Specific gravity (U) [Rel density] 1.015 1.002-1.030 [facility] Urine urobilinogen measureme ntOrdered By: Booker Rodríguez on 01-30-2025 Urobilinogen Ql (U) Normal mg/dl Normal [facility] White blood cell (WBC) count Ordered By: Booker Rodríguez on 01-30-2025 WBC (Bld) [#/Vol] 6.3 10*3/uL 4.4-11.0 [facility] White blood cell countOrdere d By: Booker Rodríguez on 01-30-2025 White blood cell count >100 SEEN /hpf 0-5 [facility] Anion gap in Serum or Plasma Ordered By: Philip Shanks on 01-29-2025 Anion gap [Moles/Vol] 12 mmol/L 5-15 [facility] BUN/creatinine ratioOrdered By: Philip Shanks on 01-29-2025 Urea nitrogen/Creatinine [Mass ratio] 12.2 mg/mg 10-20 [facility] Carbon dioxide, total [Moles /volume] in Central venous bloodOrdered By: Philip Shanks on 01-29-2025 CO2 [Moles/Vol] 25.5 mmol/L 21.0-32.0 [facility] Chloride assayOrdered By: David Shanks on 01-29-2025 Chloride [Moles/Vol] 103 mmol/L 98-108 [facility] Glomerular filtration rate ( GFR) estimation/1.73 sq m using serum, plasma, or whole bOrdered By: Philip Shanks on 01-29-2025 GFR/1.73 sq M.predicted among non-blacks MDRD (S/P/Bld) [Vol rate/Area] 34 mL/min/{1.73_m2} Low >60 [facility] Comment on above: mL/min/1.73m2 CKD-EP I Creatinine Equation (2020) Potassium measurement (mass/ volume)Ordered By: Philip Shanks on 01-29-2025 Potassium (Unsp spec) [Mass/Vol] 3.3 mmol/L 3.3-5.1 [facility] Serum creatinine measurement (mass/volume)Ordered By: Philip Shanks on 01-29-2025 Creatinine [Mass/Vol] 1.86 mg/dL High 0.70-1.20 [facility] Serum glucose measurement (m ass/volume)Ordered By: Philip Shanks on 01-29-2025 Glucose [Mass/Vol] 100 mg/dL High 70-99 [facility] Serum or plasma calcium ana urement (mass/volume)Ordered By: Philip Shanks on 01-29-2025 Calcium [Mass/Vol] 8.9 mg/dL 7.6-11.0 [facility] Serum or plasma urea nitroge n measurement (mass/volume)Ordered By: Philip Shanks on 01-29-2025 Urea nitrogen [Mass/Vol] 23 mg/dL High 4-19 [facility] Sodium levelOrdered By: Philip Shanks on 01-29-2025 Sodium [Moles/Vol] 140 mmol/L 133-145 [facility] CBC W/Diff, Automatedon 07-0 PATH REV Reviewed Normal [facility] Comment on above: Result Comment: SEE REPORT IN PATIENT'S EMR AMENDED REPORT 01/21/25 1157 PATH REV previously reported as: November Performed By: #### L 500.2500, L100.0100 ####[facility] [address] [place], [address] Culture, Anaerobic Any Sourc isaiah 01-12-2025 CUAN UNK UNK COLLECTED IN OR-LEFT FOOT POSTLAVAGE CULTURES No growth in 5 days. [facility] Comment on above: Performed By: #### M 100.4001, M100.2000, M100.3000 ####[facility] [address] [place], [address] Culture, Anaerobic Any Sourc isaiah 01-11-2025 CUAN Normal [facility] Comment on above: Performed By: #### M 100.4001, M100.2000, M100.3000 ####[facility] [address] [place], [address] Culture, Blood (WB)on 2024 CUB No growth in 5 days. Normal [facility] Comment on above: Performed By: #### M 200.1000 ####[facility] [address] [place], [address] Basic Metabolic Profile (BMP )on 01-10-2025 BUN Normal 4-19 [facility] Comment on above: Result Comment: Canc elled via OM: Order cancelled - Patient discharged Performed By: #### L 500.2500, L100.0100 ####[facility] [address] [place], [address] BUN/CRE Normal 10-20 [facility] Comment on above: Result Comment: Canc elled via OM: Order cancelled - Patient discharged Performed By: #### L 500.2500, L100.0100 ####[facility] [address] [place], [address] Calcium Normal 7.6-11.0 [facility] Comment on above: Result Comment: Canc elled via OM: Order cancelled - Patient discharged Performed By: #### L 500.2500, L100.0100 ####[facility] [address] [place], [address] CL Normal 98-108 [facility] Comment on above: Result Comment: Canc elled via OM: Order cancelled - Patient discharged Performed By: #### L 500.2500, L100.0100 ####[facility] [address] [place], [address] CO2 Normal 21.0-32.0 [facility] Comment on above: Result Comment: Canc elled via OM: Order cancelled - Patient discharged Performed By: #### L 500.2500, L100.0100 ####[facility] [address] [place], [address] CREAT,SERUM Normal 0.70-1.20 [facility] Comment on above: Result Comment: Canc elled via OM: Order cancelled - Patient discharged Performed By: #### L 500.2500, L100.0100 ####[facility] [address] [place], [address] eGFR Normal >60 [facility] Comment on above: Result Comment: Canc elled via OM: Order cancelled - Patient discharged Performed By: #### L 500.2500, L100.0100 ####[facility] [address] [place], [address] GAP Normal 5-15 [facility] Comment on above: Result Comment: Canc elled via OM: Order cancelled - Patient discharged Performed By: #### L 500.2500, L100.0100 ####[facility] [address] [place], [address] GLU Normal 70-99 [facility] Comment on above: Result Comment: Canc elled via OM: Order cancelled - Patient discharged Performed By: #### L 500.2500, L100.0100 ####[facility] [address] [place], [address] Potassium Normal 3.3-5.1 [facility] Comment on above: Result Comment: Canc elled via OM: Order cancelled - Patient discharged Performed By: #### L 500.2500, L100.0100 ####[facility] [address] [place], [address] Basic Metabolic Profile (BMP) Normal 133-145 [facility] Comment on above: Result Comment: Canc elled via OM: Order cancelled - Patient discharged Performed By: #### L 500.2500, L100.0100 ####[facility] [address] [place], [address] CBC W/Diff, Automatedon 06-2 Absolute Neut Normal 2.0-7.7 [facility] Comment on above: Result Comment: Canc elled via OM: Order cancelled - Patient discharged Performed By: #### L 500.2500, L100.0100 ####[facility] [address] [place], [address] HCT Normal 40-54 [facility] Comment on above: Result Comment: Canc elled via OM: Order cancelled - Patient discharged Performed By: #### L 500.2500, L100.0100 ####[facility] [address] [place], [address] HGB Normal 13.0-16.5 [facility] Comment on above: Result Comment: Canc elled via OM: Order cancelled - Patient discharged Performed By: #### L 500.2500, L100.0100 ####[facility] [address] [place], [address] MCH Normal 27.0-32.0 [facility] Comment on above: Result Comment: Canc elled via OM: Order cancelled - Patient discharged Performed By: #### L 500.2500, L100.0100 ####[facility] [address] [place], [address] MCHC Normal 32-36 [facility] Comment on above: Result Comment: Canc elled via OM: Order cancelled - Patient discharged Performed By: #### L 500.2500, L100.0100 ####[facility] [address] [place], [address] MCV Normal 80-94 [facility] Comment on above: Result Comment: Canc elled via OM: Order cancelled - Patient discharged Performed By: #### L 500.2500, L100.0100 ####[facility] [address] [place], [address] NEUT% Normal 47-70 [facility] Comment on above: Result Comment: Canc elled via OM: Order cancelled - Patient discharged Performed By: #### L 500.2500, L100.0100 ####[facility] [address] [place], [address] PLT Normal 150-450 [facility] Comment on above: Result Comment: Canc elled via OM: Order cancelled - Patient discharged Performed By: #### L 500.2500, L100.0100 ####[facility] [address] [place], [address] RBC Normal 4.6-6.2 [facility] Comment on above: Result Comment: Canc elled via OM: Order cancelled - Patient discharged Performed By: #### L 500.2500, L100.0100 ####[facility] [address] [place], [address] RDW CV Normal 11.6-14.6 [facility] Comment on above: Result Comment: Canc elled via OM: Order cancelled - Patient discharged Performed By: #### L 500.2500, L100.0100 ####[facility] [address] [place], [address] RDW SD Normal 35.1-43.9 [facility] Comment on above: Result Comment: Canc elled via OM: Order cancelled - Patient discharged Performed By: #### L 500.2500, L100.0100 ####[facility] [address] [place], [address] WBC Normal 4.4-11.0 [facility] Comment on above: Result Comment: Canc elled via OM: Order cancelled - Patient discharged Performed By: #### L 500.2500, L100.0100 ####[facility] [address] [place], [address] Culture, Anaerobic Any Sourc isaiah 01-10-2025 CUAN UNK UNK COLLECTED IN OR-LEFT FOOT PRELAVAGE CULTURES No anaerobic bacteria isolated. Normal [facility] Comment on above: Performed By: #### M 100.2000, M100.4001, M100.3000 ####[facility] [address] [place], [address] CUAN UNK UNK COLLECTED IN OR-L FOOT BONE CORTEX 5TH METATARSAL No anaerobic bacteria isolated. Normal [facility] Comment on above: Performed By: #### M 100.3000, M100.2000, M600.2200, M100.4001, M600.2000 ####[facility] [address] [place], [address] CUAN UNK UNK COLLECTED IN OR-L FOOT 5TH METATARSAL CLEAN MARGIN No anaerobic bacteria isolated. [facility] Comment on above: Performed By: #### M 100.3000, M100.4001, M100.2000 ####[facility] [address] [place], [address] Culture, Blood (WB)on 2024 CUB No growth in 5 days. [facility] Comment on above: Performed By: #### M 200.1000 ####[facility] [address] [place], [address] Basic Metabolic Profile (BMP )on 01-09-2025 BUN Normal 4- [facility] Comment on above: Result Comment: Canc elled via OM: Order cancelled - Patient discharged Performed By: #### L 100.0100, L500.2500 ####[facility] [address] [place], [address] BUN/CRE Normal - [facility] Comment on above: Result Comment: Canc elled via OM: Order cancelled - Patient discharged Performed By: #### L 100.0100, L500.2500 ####[facility] [address] [place], [address] Calcium Normal 7.6-11.0 [facility] Comment on above: Result Comment: Canc elled via OM: Order cancelled - Patient discharged Performed By: #### L 100.0100, L500.2500 ####[facility] [address] [place], [address] CL Normal 98-108 [facility] Comment on above: Result Comment: Canc elled via OM: Order cancelled - Patient discharged Performed By: #### L 100.0100, L500.2500 ####[facility] [address] [place], [address] CO2 Normal 21.0-32.0 [facility] Comment on above: Result Comment: Canc elled via OM: Order cancelled - Patient discharged Performed By: #### L 100.0100, L500.2500 ####[facility] [address] [place], [address] CREAT,SERUM Normal 0.70-1.20 [facility] Comment on above: Result Comment: Canc elled via OM: Order cancelled - Patient discharged Performed By: #### L 100.0100, L500.2500 ####[facility] [address] [place], [address] eGFR Normal >60 [facility] Comment on above: Result Comment: Canc elled via OM: Order cancelled - Patient discharged Performed By: #### L 100.0100, L500.2500 ####[facility] [address] [place], [address] GAP Normal 5-15 [facility] Comment on above: Result Comment: Canc elled via OM: Order cancelled - Patient discharged Performed By: #### L 100.0100, L500.2500 ####[facility] [address] [place], [address] GLU Normal 70-99 [facility] Comment on above: Result Comment: Canc elled via OM: Order cancelled - Patient discharged Performed By: #### L 100.0100, L500.2500 ####[facility] [address] [place], [address] Potassium Normal 3.3-5.1 [facility] Comment on above: Result Comment: Canc elled via OM: Order cancelled - Patient discharged Performed By: #### L 100.0100, L500.2500 ####[facility] [address] [place], [address] Basic Metabolic Profile (BMP) Normal 133-145 [facility] Comment on above: Result Comment: Canc elled via OM: Order cancelled - Patient discharged Performed By: #### L 100.0100, L500.2500 ####[facility] [address] [place], [address] CBC W/Diff, Automatedon 06-2 0-2024 Absolute Neut Normal 2.0-7.7 [facility] Comment on above: Result Comment: Canc elled via OM: Order cancelled - Patient discharged Performed By: #### L 100.0100, L500.2500 ####[facility] [address] [place], [address] HCT Normal 40-54 [facility] Comment on above: Result Comment: Canc elled via OM: Order cancelled - Patient discharged Performed By: #### L 100.0100, L500.2500 ####[facility] [address] [place], [address] HGB Normal 13.0-16.5 [facility] Comment on above: Result Comment: Canc elled via OM: Order cancelled - Patient discharged Performed By: #### L 100.0100, L500.2500 ####[facility] [address] [place], [address] MCH Normal 27.0-32.0 [facility] Comment on above: Result Comment: Canc elled via OM: Order cancelled - Patient discharged Performed By: #### L 100.0100, L500.2500 ####[facility] [address] [place], [address] MCHC Normal 32-36 [facility] Comment on above: Result Comment: Canc elled via OM: Order cancelled - Patient discharged Performed By: #### L 100.0100, L500.2500 ####[facility] [address] [place], [address] MCV Normal 80-94 [facility] Comment on above: Result Comment: Canc elled via OM: Order cancelled - Patient discharged Performed By: #### L 100.0100, L500.2500 ####[facility] [address] [place], [address] NEUT% Normal 47-70 [facility] Comment on above: Result Comment: Canc elled via OM: Order cancelled - Patient discharged Performed By: #### L 100.0100, L500.2500 ####[facility] [address] [place], [address] PLT Normal 150-450 [facility] Comment on above: Result Comment: Canc elled via OM: Order cancelled - Patient discharged Performed By: #### L 100.0100, L500.2500 ####[facility] [address] [place], [address] RBC Normal 4.6-6.2 [facility] Comment on above: Result Comment: Canc elled via OM: Order cancelled - Patient discharged Performed By: #### L 100.0100, L500.2500 ####[facility] [address] [place], [address] RDW CV Normal 11.6-14.6 [facility] Comment on above: Result Comment: Canc elled via OM: Order cancelled - Patient discharged Performed By: #### L 100.0100, L500.2500 ####[facility] [address] [place], [address] RDW SD Normal 35.1-43.9 [facility] Comment on above: Result Comment: Canc elled via OM: Order cancelled - Patient discharged Performed By: #### L 100.0100, L500.2500 ####[facility] [address] [place], [address] WBC Normal 4.4-11.0 [facility] Comment on above: Result Comment: Canc elled via OM: Order cancelled - Patient discharged Performed By: #### L 100.0100, L500.2500 ####[facility] [address] [place], [address] Wound Cultureon 01-09-2025 Normal [facility] Comment on above: Performed By: #### M 100.3000, M100.2000, M600.2200, M100.4001, M600.2000 ####[facility] [address] [place], [address] WC Normal [facility] Comment on above: Performed By: #### M 100.3000, M100.4001, M100.2000 ####[facility] [address] [place], [address] Absolute lymphocyte countOrd ered By: Sofia Lopez on 01-08-2025 Lymphocytes Auto (Unsp spec) [#/Vol] 1.12 10*3/uL 0.83-4.51 [facility] Absolute neutrophil countOrd ered By: Sofia Lopez on 01-08-2025 Neutrophils (Bld) [#/Vol] 6.3 10*3/uL 2.0-7.7 [facility] Anion gap in Serum or Plasma Ordered By: Sofia Lopez on 01-08-2025 Anion gap [Moles/Vol] 9 mmol/L 12-04 [facility] BUN/creatinine ratioOrdered By: Sofia Lopez on 01-08-2025 Urea nitrogen/Creatinine [Mass ratio] 24.7 mg/mg High 05-11 [facility] Basic Metabolic Profile (BMP )on 01-08-2025 BUN/CRE 24.7 RATIO High 10-20 [facility] Comment on above: Performed By: #### L 500.2500, L100.0100 ####[facility] [address] [place], [address] Calcium [Mass/Vol] 9.1 mg/dL Normal 7.6-11.0 [facility] Comment on above: Performed By: #### L 500.2500, L100.0100 ####[facility] [address] [place], [address] Chloride [Moles/Vol] 106 mmol/L Normal 98-108 [facility] Comment on above: Performed By: #### L 500.2500, L100.0100 ####[facility] [address] [place], [address] CO2 [Moles/Vol] 26.8 mmol/L Normal 21.0-32.0 [facility] Comment on above: Performed By: #### L 500.2500, L100.0100 ####[facility] [address] [place], [address] Creatinine [Mass/Vol] 1.06 mg/dL Normal 0.70-1.20 [facility] Comment on above: Performed By: #### L 500.2500, L100.0100 ####[facility] [address] [place], [address] ECRCL 57.57 ml/min Normal 50-250 [facility] Comment on above: Performed By: #### L 500.2500, L100.0100 ####[facility] [address] [place], [address] GAP 9 Normal 5-15 [facility] Comment on above: Performed By: #### L 500.2500, L100.0100 ####[facility] [address] [place], [address] GFR/1.73 sq M.predicted among non-blacks MDRD (S/P/Bld) [Vol rate/Area] 68 mL/min/{1.73_m2} Normal >60 [facility] Comment on above: Result Comment: mL/m in/1.73m2 CKD-EPI Creatinine Equation (2020) Performed By: #### L 500.2500, L100.0100 ####[facility] [address] [place], [address] Glucose [Mass/Vol] 125 mg/dL High 70-99 [facility] Comment on above: Performed By: #### L 500.2500, L100.0100 ####[facility] [address] [place], [address] Potassium [Moles/Vol] 3.6 mmol/L Normal 3.3-5.1 [facility] Comment on above: Performed By: #### L 500.2500, L100.0100 ####[facility] [address] [place], [address] Sodium [Moles/Vol] 142 mmol/L Normal 133-145 [facility] Comment on above: Performed By: #### L 500.2500, L100.0100 ####[facility] [address] [place], [address] Urea nitrogen [Mass/Vol] 26 mg/dL High -19 [facility] Comment on above: Performed By: #### L 500.2500, L100.0100 ####[facility] [address] [place], [address] Bedside Glucoseon 01-08-2025 FINGERSTICK GLU 115 mg/dL High 74-106 [facility] Comment on above: Result Comment: [facility] GEMENT OF PATIENT CARE PER NURSING PROTOCOL Performed By: #### L 501.080 ####[facility] [address] [place], [address] FINGERSTICK GLU 110 mg/dL High 74-106 [facility] Comment on above: Result Comment: [facility] GEMENT OF PATIENT CARE PER NURSING PROTOCOL Performed By: #### L 501.080 ####[facility] [address] [place], [address] FINGERSTICK GLU 151 mg/dL High 74-106 [facility] Comment on above: Result Comment: [facility] GEMENT OF PATIENT CARE PER NURSING PROTOCOL Performed By: #### L 501.080 ####[facility] [address] [place], [place], [address] Blood band neutrophil count as percentage of total leukocytesOrdered By: Sofia Lopez on 01-08-2025 Band form neutrophils/100 WBC (Bld) 2 % 0-5 [facility] Blood basophils/100 leukocyt esOrdered By: Sofia Lopez on 01-08-2025 Basophils/100 WBC (Bld) 1 % 0-1 [facility] Blood eosinophils/100 leukoc ytesOrdered By: Sofiachris Lopez on 01-08-2025 Eosinophils/100 WBC (Bld) 2 % 0-5 [facility] Blood lymphocytes/100 leukoc ytesOrdered By: Sofia Lopez on 01-08-2025 Lymphocytes/100 WBC (Bld) 14 % Low 19-41 [facility] Blood monocytes/100 leukocyt esOrdered By: Sofia Lopez on 01-08-2025 Monocytes/100 WBC (Bld) 2 % 0-10 [facility] Blood segmented neutrophils/ 100 leukocytesOrdered By: Sofia Lopez on 01-08-2025 Segmented neutrophils/100 WBC (Bld) 77 % High 47-70 [facility] Carbon dioxide, total [Moles /volume] in Central venous bloodOrdered By: Sofia Lopez on 01-08-2025 CO2 [Moles/Vol] 26.8 mmol/L 21.0-32.0 [facility] Chloride assayOrdered By: Na na John on 01-08-2025 Chloride [Moles/Vol] 106 mmol/L 98-108 [facility] Erythrocyte distribution wid th ratioOrdered By: Sofia Lopez on 01-08-2025 Erythrocyte distribution width (RBC) [Ratio] 13.1 % 11.6-14.6 [facility] Erythrocyte distribution wid th standard deviationOrdered By: Sofia Lopez on 01-08-2025 Erythrocyte distribution width (RBC) [Ratio] 47.1 fl High 35.1-43.9 [facility] Erythrocyte morphology asses smentOrdered By: Sofia Lopez on 01-08-2025 RBC morphology finding Nom (Bld) NORM C+C NORMAL NORM C&C [facility] Glomerular filtration rate ( GFR) estimation/1.73 sq m using serum, plasma, or whole bOrdered By: Sofia Lopez on 01-08-2025 GFR/1.73 sq M.predicted among non-blacks MDRD (S/P/Bld) [Vol rate/Area] 68 mL/min/{1.73_m2} >60 [facility] Comment on above: mL/min/1.73m2 CKD-EP I Creatinine Equation (2020) [facility] deOrdered By: Dusty Abad on 01-08-2025 Glucose [Mass/Vol] 115 mg/dL High 74-106 [facility] Comment on above: MANAGEMENT OF PATIEN T CARE PER NURSING PROTOCOL Hematocrit Auto (Bld) [Volum e fraction]Ordered By: Sofia Lopez on 01-08-2025 Hematocrit (Bld) [Volume fraction] 34.8 % Low 40-54 [facility] Hemoglobin measurementOrdere d By: Sofia Lopez on 01-08-2025 Hemoglobin (Bld) [Mass/Vol] 11.5 g/dL Low 13.0-16.5 [facility] MCV (mean corpuscular volume ) determinationOrdered By: Sofia Lopez on 01-08-2025 MCV (RBC) [Entitic vol] 98.0 fL High 80-94 [facility] Mean corpuscular hemoglobin (MCH) determinationOrdered By: Sofia Lopez on 01-08-2025 MCH (RBC) [Entitic mass] 32.4 pg High 27.0-32.0 [facility] Mean corpuscular hemoglobin concentration (MCHC) determinationOrdered By: Sofia Lopez on 01-08-2025 MCHC (RBC) [Mass/Vol] 33.0 g/dL 32-36 [facility] Mean platelet volume determi nationOrdered By: Sofia Lopez on 01-08-2025 Platelet mean volume (Bld) [Entitic vol] 10.5 fL 6.2-12.0 [facility] Myelocyte %Ordered By: Sofia Lopez on 01-08-2025 Myelocytes/100 WBC (Bld) 2 % High 0-0 [facility] Platelet countOrdered By: Na na John on 01-08-2025 Platelets (Bld) [#/Vol] 159 10*3/uL 150-450 [facility] Platelet estimateOrdered By: Sofia Lopez on 01-08-2025 Platelets LM Ql (Bld) ADEQUATE ADEQ [facility] Potassium measurement (mass/ volume)Ordered By: Sofia Lopez on 01-08-2025 Potassium (Unsp spec) [Mass/Vol] 3.6 mmol/L 3.3-5.1 [facility] RBC Auto (Bld) [#/Vol]Ordere d By: Sofia Lopez on 01-08-2025 RBC (Bld) [#/Vol] 3.55 10*6/uL Low 4.6-6.2 [facility] Review by pathologistOrdered By: Sofia Lopez on 01-08-2025 Pathologist review Derek (Unsp spec) [Interp] Joann owens [facility] Pathologist review Derek (Unsp spec) [Interp] Reviewed [facility] Comment on above: Previous reported re sult: Joann owens Edited by: MARIA on 01/21/25:1157SEE REPORT IN PATIENT'S EMR AMENDED REPORT 01/21/25 1157 PATH REV previously reported as: Joann owens Serum creatinine measurement (mass/volume)Ordered By: Sofia Lopez on 01-08-2025 Creatinine [Mass/Vol] 1.06 mg/dL 0.70-1.20 [facility] Serum glucose measurement (m ass/volume)Ordered By: Sofia Lopez on 01-08-2025 Glucose [Mass/Vol] 125 mg/dL High 70-99 [facility] Serum or plasma calcium ana urement (mass/volume)Ordered By: Sofia Lopez on 01-08-2025 Calcium [Mass/Vol] 9.1 mg/dL 7.6-11.0 [facility] Serum or plasma urea nitroge n measurement (mass/volume)Ordered By: Sofia Lopez on 01-08-2025 Urea nitrogen [Mass/Vol] 26 mg/dL High 4-19 [facility] Sodium levelOrdered By: Sofia Lopez on 01-08-2025 Sodium [Moles/Vol] 142 mmol/L 133-145 [facility] Total cell countOrdered By: Sofia Lopez on 01-08-2025 Cells counted Molgen (Bld/Tiss) [#] 100 MANUAL DIFF [facility] White blood cell (WBC) count Ordered By: Sofia Lopez on 01-08-2025 WBC (Bld) [#/Vol] 8.0 10*3/uL 4.4-11.0 [facility] Wound Cultureon 01-08-2025 Normal [facility] Comment on above: Performed By: #### M 100.4001, M100.1999, M100.3000 ####[facility] [address] [place], [address] Normal [facility] Comment on above: Performed By: #### M 100.2000, M100.4001, M100.3000 ####[facility] [address] [place], [address] Performed By: #### M 100.4001, M100.1999, M100.3000 ####[facility] [address] [place], [address] Automated lymphocyte count a s percentage of total leukocytesOrdered By: Sofia Lopez on 01-07-2025 Lymphocytes/100 WBC Auto (Unsp spec) 10.3 % Low 19-41 [facility] Basic Metabolic Profile (BMP )on 01-07-2025 BUN/CRE 25.2 RATIO High 10-20 [facility] Comment on above: Performed By: #### L 500.2500, L100.0100 ####[facility] [address] [place], [address] Calcium [Mass/Vol] 9.0 mg/dL Normal 7.6-11.0 [facility] Comment on above: Performed By: #### L 500.2500, L100.0100 ####[facility] [address] [place], [address] Chloride [Moles/Vol] 111 mmol/L High 98-108 [facility] Comment on above: Performed By: #### L 500.2500, L100.0100 ####[facility] [address] [place], [address] CO2 [Moles/Vol] 26.1 mmol/L Normal 21.0-32.0 [facility] Comment on above: Performed By: #### L 500.2500, L100.0100 ####[facility] [address] [place], [address] Creatinine [Mass/Vol] 1.13 mg/dL Normal 0.70-1.20 [facility] Comment on above: Performed By: #### L 500.2500, L100.0100 ####[facility] [address] [place], [address] ECRCL 54.01 ml/min Normal 50-250 [facility] Comment on above: Performed By: #### L 500.2500, L100.0100 ####[facility] [address] [place], [address] GAP 8 Normal 5-15 [facility] Comment on above: Performed By: #### L 500.2500, L100.0100 ####[facility] [address] [place], [address] GFR/1.73 sq M.predicted among non-blacks MDRD (S/P/Bld) [Vol rate/Area] 63 mL/min/{1.73_m2} Normal >60 [facility] Comment on above: Result Comment: mL/m in/1.73m2 CKD-EPI Creatinine Equation (2020) Performed By: #### L 500.2500, L100.0100 ####[facility] [address] [place], [address] Glucose [Mass/Vol] 119 mg/dL High 70-99 [facility] Comment on above: Performed By: #### L 500.2500, L100.0100 ####[facility] [address] [place], [address] Potassium [Moles/Vol] 3.7 mmol/L Normal 3.3-5.1 [facility] Comment on above: Performed By: #### L 500.2500, L100.0100 ####[facility] [address] [place], [address] Sodium [Moles/Vol] 145 mmol/L Normal 133-145 [facility] Comment on above: Performed By: #### L 500.2500, L100.0100 ####[facility] [address] [place], [address] Urea nitrogen [Mass/Vol] 29 mg/dL High 4-19 [facility] Comment on above: Performed By: #### L 500.2500, L100.0100 ####[facility] [address] [place], [address] Basophil percentageOrdered B y: Sofia John on 01-07-2025 Basophils/100 WBC (Bld) 0.4 % 0-1 [facility] Bedside Glucoseon 01-07-2025 FINGERSTICK GLU 156 mg/dL High 74-106 [facility] Comment on above: Result Comment: AURORA HERNANDEZ OF PATIENT CARE PER NURSING PROTOCOL Performed By: #### L 501.080 ####[facility] [address] [place], [address] FINGERSTICK GLU 113 mg/dL High 74-106 [facility] Comment on above: Result Comment: AURORA GEMENT OF PATIENT CARE PER NURSING PROTOCOL Performed By: #### L 501.080 ####[facility] [address] [place], [address] FINGERSTICK GLU 114 mg/dL High 74-106 [facility] Comment on above: Result Comment: AURORA GEMENT OF PATIENT CARE PER NURSING PROTOCOL Performed By: #### L 501.080 ####[facility] [address] [place], [address] CBC W/Diff, Automatedon 12-21 Absolute Lymph 0.69 X10 3/uL Low 0.83-4.51 [facility] Comment on above: Performed By: #### L 500.2500, L100.0100 ####[facility] [address] [place], [address] Absolute Neut 5.0 X10 3/uL Normal 2.0-7.7 [facility] Comment on above: Performed By: #### L 500.2500, L100.0100 ####[facility] [address] [place], [address] Basophils/100 WBC (Bld) 0.4 % Normal 0-1 [facility] Comment on above: Performed By: #### L 500.2500, L100.0100 ####[facility] [address] [place], [address] Eosinophils/100 WBC (Bld) 2.7 % Normal 0-5 [facility] Comment on above: Performed By: #### L 500.2500, L100.0100 ####[facility] [address] [place], [address] Erythrocyte distribution width (RBC) [Ratio] 13.2 % Normal 11.6-14.6 [facility] Comment on above: Performed By: #### L 500.2500, L100.0100 ####[facility] [address] [place], [address] Hematocrit (Bld) [Volume fraction] 34.5 % Low 40-54 [facility] Comment on above: Performed By: #### L 500.2500, L100.0100 ####[facility] [address] [place], [address] Hemoglobin (Bld) [Mass/Vol] 11.1 g/dL Low 13.0-16.5 [facility] Comment on above: Performed By: #### L 500.2500, L100.0100 ####[facility] [address] [place], [address] IG% 4.500 High 0.0-0.9 [facility] Comment on above: Result Comment: IG% - Immature Granulocytes (promyelocytes, myelocytes andmetamyelocytes) > 1% indicates that a LEFT SHIFT is Present. Performed By: #### L 500.2500, L100.0100 ####[facility] [address] [place], [address] Lymphocytes/100 WBC (Bld) 10.3 % Low 19-41 [facility] Comment on above: Performed By: #### L 500.2500, L100.0100 ####[facility] [address] [place], [address] MCH (RBC) [Entitic mass] 32.3 pg High 27.0-32.0 [facility] Comment on above: Performed By: #### L 500.2500, L100.0100 ####[facility] [address] [place], [address] MCHC (RBC) [Mass/Vol] 32.2 g/dL Normal 32-36 [facility] Comment on above: Performed By: #### L 500.2500, L100.0100 ####[facility] [address] [place], [address] MCV (RBC) [Entitic vol] 100.3 fL High 80-94 [facility] Comment on above: Performed By: #### L 500.2500, L100.0100 ####[facility] [address] [place], [address] Monocytes/100 WBC (Bld) 8.0 % Normal 0-10 [facility] Comment on above: Performed By: #### L 500.2500, L100.0100 ####[facility] [address] [place], [address] Neutrophils/100 WBC (Bld) 74.1 % High 47-70 [facility] Comment on above: Performed By: #### L 500.2500, L100.0100 ####[facility] [address] [place], [address] Nucleated RBC (Bld) [#/Vol] 0 10*3/uL Normal 0-5 [facility] Comment on above: Performed By: #### L 500.2500, L100.0100 ####[facility] [address] [place], [address] Platelet mean volume (Bld) [Entitic vol] 11.0 fL Normal 6.2-12.0 [facility] Comment on above: Performed By: #### L 500.2500, L100.0100 ####[facility] [address] [place], [address] Platelets (Bld) [#/Vol] 127 10*3/uL Low 150-450 [facility] Comment on above: Performed By: #### L 500.2500, L100.0100 ####[facility] [address] [place], [address] RBC (Bld) [#/Vol] 3.44 10*6/uL Low 4.6-6.2 [facility] Comment on above: Performed By: #### L 500.2500, L100.0100 ####[facility] [address] [place], [address] RDW SD 48.7 fl High 35.1-43.9 [facility] Comment on above: Performed By: #### L 500.2500, L100.0100 ####[facility] [address] [place], [address] WBC (Bld) [#/Vol] 6.7 10*3/uL Normal 4.4-11.0 [facility] Comment on above: Performed By: #### L 500.2500, L100.0100 ####[facility] [address] [place], [address] Culture, Anaerobic Any Sourc isaiah 01-07-2025 CUAN No anaerobic bacteria isolated. Normal [facility] Comment on above: Performed By: #### M 100.3000, M100.4001, M100.2000 ####[facility] [address] [place], [address] Eosinophil percentageOrdered By: Sofia Lopez on 01-07-2025 Eosinophils/100 WBC (Bld) 2.7 % 0-5 [facility] Immature granulocytes/100 WB C Auto (Bld)Ordered By: Sofia Lopez on 01-07-2025 Immature granulocytes/100 WBC (Bld) 4.500 % High 0.0-0.9 [facility] Comment on above: IG% - Immature Granu locytes (promyelocytes, myelocytes and metamyelocytes) > 1% indicates that a LEFT SHIFT is Present. Monocyte percentageOrdered B y: Sofia Lopez on 01-07-2025 Monocytes/100 WBC (Bld) 8.0 % 0-10 [facility] Nucleated red blood cell per centageOrdered By: Sofia Lopez on 01-07-2025 Nucleated RBC/100 WBC (Bld) [Ratio] 0 % 0-5 [facility] Trough vancomycin levelOrder ed By: Mei Mckenzie on 01-07-2025 Vancomycin trough [Mass/Vol] 11.9 ug/mL 5.0-15.0 [facility] Comment on above: Recommended goal tro ugh [...] therapy recommended for serious lifethreatening infections include:- Iaqsyolqer-Evtsnapvixos-Eibfjnnhv (Ventilator/Healtcare Associated)-Sepsis PLEASE CONTACT PHARMACY SERVICES (#8140) FOR INTERPRETATIONOF RESULTS. Vancomycin, Trough Levelon 0 01-07-2025 VANCO, TROUGH 11.9 ug/mL Normal 5.0-15.0 [facility] Comment on above: Order Comment: Comme nts: Trough to be drawn 30 mins prior to scheduled [id number] Result Comment: Edgardo mmended goal trough ranges [...] therapy recommended for serious lifethreatening infections include:- Fukidlioke-Rwiomhajnlnw-Pkyhdupgb (Ventilator/Healtcare Associated)-SepsisPLEASE CONTACT PHARMACY SERVICES (#1810) FOR INTERPRETATIONOF RESULTS. Performed By: #### L 501.8820 ####[facility] [address] [place], [place], [id number] Basic Metabolic Profile (BMP )on 01-06-2025 BUN/CRE 27.8 RATIO High 10-20 [facility] Comment on above: Performed By: #### L 500.2500, L100.0100 ####[facility] [address] [place], [address] Calcium [Mass/Vol] 9.2 mg/dL Normal 7.6-11.0 [facility] Comment on above: Performed By: #### L 500.2500, L100.0100 ####[facility] [address] [place], [address] Chloride [Moles/Vol] 111 mmol/L High 98-108 [facility] Comment on above: Performed By: #### L 500.2500, L100.0100 ####[facility] [address] [place], [address] CO2 [Moles/Vol] 25.7 mmol/L Normal 21.0-32.0 [facility] Comment on above: Performed By: #### L 500.2500, L100.0100 ####[facility] [address] [place], [address] Creatinine [Mass/Vol] 1.18 mg/dL Normal 0.70-1.20 [facility] Comment on above: Performed By: #### L 500.2500, L100.0100 ####[facility] [address] [place], [address] ECRCL 51.72 ml/min Normal 50-250 [facility] Comment on above: Performed By: #### L 500.2500, L100.0100 ####[facility] [address] [place], [address] GAP 9 Normal 5-15 [facility] Comment on above: Performed By: #### L 500.2500, L100.0100 ####[facility] [address] [place], [address] GFR/1.73 sq M.predicted among non-blacks MDRD (S/P/Bld) [Vol rate/Area] 59 mL/min/{1.73_m2} Low >60 [facility] Comment on above: Result Comment: mL/m in/1.73m2 CKD-EPI Creatinine Equation (2020) Performed By: #### L 500.2500, L100.0100 ####[facility] [address] [place], [address] Glucose [Mass/Vol] 127 mg/dL High 70-99 [facility] Comment on above: Performed By: #### L 500.2500, L100.0100 ####[facility] [address] [place], [address] Potassium [Moles/Vol] 3.9 mmol/L Normal 3.3-5.1 [facility] Comment on above: Performed By: #### L 500.2500, L100.0100 ####[facility] [address] [place], [address] Sodium [Moles/Vol] 146 mmol/L High 133-145 [facility] Comment on above: Performed By: #### L 500.2500, L100.0100 ####[facility] [address] [place], [address] Urea nitrogen [Mass/Vol] 33 mg/dL High 4-19 [facility] Comment on above: Performed By: #### L 500.2500, L100.0100 ####[facility] [address] [place], [address] Bedside Glucoseon 01-06-2025 FINGERSTICK GLU 154 mg/dL High 74-106 [facility] Comment on above: Result Comment: AURORA GEMENT OF PATIENT CARE PER NURSING PROTOCOL Performed By: #### L 501.080 ####[facility] [address] [place], [address] FINGERSTICK GLU 114 mg/dL High 74-106 [facility] Comment on above: Result Comment: AURORA GEMENT OF PATIENT CARE PER NURSING PROTOCOL Performed By: #### L 501.080 ####[facility] [address] [place], [address] FINGERSTICK GLU 113 mg/dL High 74-106 [facility] Comment on above: Result Comment: AURORA HERNANDEZ OF PATIENT CARE PER NURSING PROTOCOL Performed By: #### L 501.080 ####[facility] [address] [place], [address] Blood cultureOrdered By: Kenrick Arias on 01-06-2025 Bacteria identified Cx Nom (Bld) No growth in 5 days. [facility] CBC W/Diff, Automatedon 12-21 Absolute Lymph 0.57 X10 3/uL Low 0.83-4.51 [facility] Comment on above: Performed By: #### L 500.2500, L100.0100 ####[facility] [address] [place], [address] Absolute Neut 4.8 X10 3/uL Normal 2.0-7.7 [facility] Comment on above: Performed By: #### L 500.2500, L100.0100 ####[facility] [address] [place], [address] Basophils/100 WBC (Bld) 0.3 % Normal 0-1 [facility] Comment on above: Performed By: #### L 500.2500, L100.0100 ####[facility] [address] [place], [address] Eosinophils/100 WBC (Bld) 1.8 % Normal 0-5 [facility] Comment on above: Performed By: #### L 500.2500, L100.0100 ####[facility] [address] [place], [address] Erythrocyte distribution width (RBC) [Ratio] 13.2 % Normal 11.6-14.6 [facility] Comment on above: Performed By: #### L 500.2500, L100.0100 ####[facility] [address] [place], [address] Hematocrit (Bld) [Volume fraction] 35.8 % Low 40-54 [facility] Comment on above: Performed By: #### L 500.2500, L100.0100 ####[facility] [address] [place], [address] Hemoglobin (Bld) [Mass/Vol] 11.5 g/dL Low 13.0-16.5 [facility] Comment on above: Performed By: #### L 500.2500, L100.0100 ####[facility] [address] [place], [address] IG% 2.100 High 0.0-0.9 [facility] Comment on above: Result Comment: IG% - Immature Granulocytes (promyelocytes, myelocytes andmetamyelocytes) > 1% indicates that a LEFT SHIFT is Present. Performed By: #### L 500.2500, L100.0100 ####[facility] [address] [place], [address] Lymphocytes/100 WBC (Bld) 9.2 % Low 19-41 [facility] Comment on above: Performed By: #### L 500.2500, L100.0100 ####[facility] [address] [place], [address] MCH (RBC) [Entitic mass] 32.1 pg High 27.0-32.0 [facility] Comment on above: Performed By: #### L 500.2500, L100.0100 ####[facility] [address] [place], [address] MCHC (RBC) [Mass/Vol] 32.1 g/dL Normal 32-36 [facility] Comment on above: Performed By: #### L 500.2500, L100.0100 ####[facility] [address] [place], [address] MCV (RBC) [Entitic vol] 100.0 fL High 80-94 [facility] Comment on above: Performed By: #### L 500.2500, L100.0100 ####[facility] [address] [place], [address] Monocytes/100 WBC (Bld) 8.4 % Normal 0-10 [facility] Comment on above: Performed By: #### L 500.2500, L100.0100 ####[facility] [address] [place], [address] Neutrophils/100 WBC (Bld) 78.2 % High 47-70 [facility] Comment on above: Performed By: #### L 500.2500, L100.0100 ####[facility] [address] [place], [address] Nucleated RBC (Bld) [#/Vol] 0 10*3/uL Normal 0-5 [facility] Comment on above: Performed By: #### L 500.2500, L100.0100 ####[facility] [address] [place], [address] Platelet mean volume (Bld) [Entitic vol] 11.3 fL Normal 6.2-12.0 [facility] Comment on above: Performed By: #### L 500.2500, L100.0100 ####[facility] [address] [place], [address] Platelets (Bld) [#/Vol] 106 10*3/uL Low 150-450 [facility] Comment on above: Performed By: #### L 500.2500, L100.0100 ####[facility] [address] [place], [address] RBC (Bld) [#/Vol] 3.58 10*6/uL Low 4.6-6.2 [facility] Comment on above: Performed By: #### L 500.2500, L100.0100 ####[facility] [address] [place], [address] RDW SD 48.8 fl High 35.1-43.9 [facility] Comment on above: Performed By: #### L 500.2500, L100.0100 ####[facility] [address] [place], [address] WBC (Bld) [#/Vol] 6.2 10*3/uL Normal 4.4-11.0 [facility] Comment on above: Performed By: #### L 500.2500, L100.0100 ####[facility] [address] [place], [address] Culture, Blood (WB)on 2024 [facility] Comment on above: Performed By: #### M 200.1000 ####[facility] [address] [place], [address] [facility] Normal [facility] Comment on above: Performed By: #### M 200.1000 ####[facility] [address] [place], [address] Gram Stainon 01-06-2025 GS UNK UNK COLLECTED IN OR-LEFT FOOT 5TH TOE Gram Stain No organisms seen No cells seen [facility] Comment on above: Performed By: #### M 100.4001, M100.2000, M100.3000 ####[facility] [address] [place], [address] GS UNK UNK COLLECTED IN OR-L FOOT BONE CORTEX 5TH METATARSAL Gram Stain Rare Gram positive cocci No cells seen [facility] Comment on above: Performed By: #### M 100.3000, M100.2000, M600.2200, M100.4001, M600.2000 ####[facility] [address] [place], [address] GS UNK UNK COLLECTED IN OR-LEFT FOOT POSTLAVAGE CULTURES Gram Stain 4+ Red Blood Cells No White Blood Cells No organisms seen Normal [facility] Comment on above: Performed By: #### M 100.4001, M1.1999, .3000 ####[facility] [address] [place], [address] GS UNK UNK COLLECTED IN OR-L FOOT 5TH METATARSAL CLEAN MARGIN Gram Stain No organisms seen No cells seen Normal [facility] Comment on above: Performed By: #### M 100.3000, M1.400, ####[facility] [address] [place], [address] GS UNK UNK COLLECTED IN OR-LEFT FOOT PRELAVAGE CULTURES Gram Stain 4+ Red Blood Cells No White Blood Cells No organisms seen Normal [facility] Comment on above: Performed By: #### M .1999, .4000, ####[facility] [address] [place], [address] Anaerobic cultureOrdered By: Jaden Fomran on 01-05-2025 Bacteria identified Anaer cx Nom (Unsp spec) No growth in 5 days. [facility] Bacteria identified Anaer cx Nom (Unsp spec) Cutibacterium acnes Abnormal [facility] Bacteria identified Anaer cx Nom (Unsp spec) No anaerobic bacteria isolated. [facility] Basic Metabolic Profile (BMP )on 01-05-2025 BUN/CRE 32.8 RATIO High 10-20 [facility] Comment on above: Performed By: #### L 100.0100, L500.2500 ####[facility] [address] [place], [address] Calcium [Mass/Vol] 9.5 mg/dL Normal 7.6-11.0 [facility] Comment on above: Performed By: #### L 100.0100, L500.2500 ####[facility] [address] [place], [address] Chloride [Moles/Vol] 108 mmol/L Normal 98-108 [facility] Comment on above: Performed By: #### L 100.0100, L500.2500 ####[facility] [address] [place], [address] CO2 [Moles/Vol] 25.0 mmol/L Normal 21.0-32.0 [facility] Comment on above: Performed By: #### L 100.0100, L500.2500 ####[facility] [address] [place], [address] Creatinine [Mass/Vol] 1.30 mg/dL High 0.70-1.20 [facility] Comment on above: Performed By: #### L 100.0100, L500.2500 ####[facility] [address] [place], [address] ECRCL 46.94 ml/min Low 50-250 [facility] Comment on above: Performed By: #### L 100.0100, L500.2500 ####[facility] [address] [place], [address] GAP 11 Normal 5-15 [facility] Comment on above: Performed By: #### L 100.0100, L500.2500 ####[facility] [address] [place], [address] GFR/1.73 sq M.predicted among non-blacks MDRD (S/P/Bld) [Vol rate/Area] 53 mL/min/{1.73_m2} Low >60 [facility] Comment on above: Result Comment: mL/m in/1.73m2 CKD-EPI Creatinine Equation (2020) Performed By: #### L 100.0100, L500.2500 ####[facility] [address] [place], [address] Glucose [Mass/Vol] 148 mg/dL High 70-99 [facility] Comment on above: Performed By: #### L 100.0100, L500.2500 ####[facility] [address] [place], [address] Potassium [Moles/Vol] 3.6 mmol/L Normal 3.3-5.1 [facility] Comment on above: Performed By: #### L 100.0100, L500.2500 ####[facility] [address] [place], [address] Sodium [Moles/Vol] 144 mmol/L Normal 133-145 [facility] Comment on above: Performed By: #### L 100.0100, L500.2500 ####[facility] [address] [place], [address] Urea nitrogen [Mass/Vol] 43 mg/dL High 4-19 [facility] Comment on above: Performed By: #### L 100.0100, L500.2500 ####[facility] [address] [place], [address] Bedside Glucoseon 01-05-2025 FINGERSTICK GLU 130 mg/dL High 74-106 [facility] Comment on above: Result Comment: AURORA GEMENT OF PATIENT CARE PER NURSING PROTOCOL Performed By: #### L 501.080 ####[facility] [address] [place], [address] FINGERSTICK GLU 137 mg/dL High 74-106 [facility] Comment on above: Result Comment: AURORA GEMENT OF PATIENT CARE PER NURSING PROTOCOL Performed By: #### L 501.080 ####[facility] [address] [place], [address] FINGERSTICK GLU 130 mg/dL High 74-106 [facility] Comment on above: Result Comment: AURORA GEMENT OF PATIENT CARE PER NURSING PROTOCOL Performed By: #### L 501.080 ####[facility] [address] [place], [address] Blood cultureOrdered By: Kenrick Arias on 01-05-2025 Bacteria identified Cx Nom (Bld) No growth in 5 days. [facility] CBC W/Diff, Automatedon - Absolute Lymph 0.40 X10 3/uL Low 0.83-4.51 [facility] Comment on above: Performed By: #### L 100.0100, L500.2500 ####[facility] [address] [place], [address] Absolute Neut 4.0 X10 3/uL Normal 2.0-7.7 [facility] Comment on above: Performed By: #### L 100.0100, L500.2500 ####[facility] [address] [place], [address] Basophils/100 WBC (Bld) 0.2 % Normal 0-1 [facility] Comment on above: Performed By: #### L 100.0100, L500.2500 ####[facility] [address] [place], [address] Eosinophils/100 WBC (Bld) 0.2 % Normal 0-5 [facility] Comment on above: Performed By: #### L 100.0100, L500.2500 ####[facility] [address] [place], [address] Erythrocyte distribution width (RBC) [Ratio] 13.1 % Normal 11.6-14.6 [facility] Comment on above: Performed By: #### L 100.0100, L500.2500 ####[facility] [address] [place], [address] Hematocrit (Bld) [Volume fraction] 36.8 % Low 40-54 [facility] Comment on above: Performed By: #### L 100.0100, L500.2500 ####[facility] [address] [place], [address] Hemoglobin (Bld) [Mass/Vol] 12.0 g/dL Low 13.0-16.5 [facility] Comment on above: Performed By: #### L 100.0100, L500.2500 ####[facility] [address] [place], [address] IG% 1.000 High 0.0-0.9 [facility] Comment on above: Result Comment: IG% - Immature Granulocytes (promyelocytes, myelocytes andmetamyelocytes) > 1% indicates that a LEFT SHIFT is Present. Performed By: #### L 100.0100, L500.2500 ####[facility] [address] [place], [address] Lymphocytes/100 WBC (Bld) 8.0 % Low 19-41 [facility] Comment on above: Performed By: #### L 100.0100, L500.2500 ####[facility] [address] [place], [address] MCH (RBC) [Entitic mass] 32.2 pg High 27.0-32.0 [facility] Comment on above: Performed By: #### L 100.0100, L500.2500 ####[facility] [address] [place], [address] MCHC (RBC) [Mass/Vol] 32.6 g/dL Normal 32-36 [facility] Comment on above: Performed By: #### L 100.0100, L500.2500 ####[facility] [address] [place], [address] MCV (RBC) [Entitic vol] 98.7 fL High 80-94 [facility] Comment on above: Performed By: #### L 100.0100, L500.2500 ####[facility] [address] [place], [address] Monocytes/100 WBC (Bld) 10.4 % High 0-10 [facility] Comment on above: Performed By: #### L 100.0100, L500.2500 ####[facility] [address] [place], [address] Neutrophils/100 WBC (Bld) 80.2 % High 47-70 [facility] Comment on above: Performed By: #### L 100.0100, L500.2500 ####[facility] [address] [place], [address] Nucleated RBC (Bld) [#/Vol] 0 10*3/uL Normal 0-5 [facility] Comment on above: Performed By: #### L 100.0100, L500.2500 ####[facility] [address] [place], [address] Platelet mean volume (Bld) [Entitic vol] 11.8 fL Normal 6.2-12.0 [facility] Comment on above: Performed By: #### L 100.0100, L500.2500 ####[facility] [address] [place], [address] Platelets (Bld) [#/Vol] 83 10*3/uL Low 150-450 [facility] Comment on above: Performed By: #### L 100.0100, L500.2500 ####[facility] [address] [place], [address] RBC (Bld) [#/Vol] 3.73 10*6/uL Low 4.6-6.2 [facility] Comment on above: Performed By: #### L 100.0100, L500.2500 ####[facility] [address] [place], [address] RDW SD 47.4 fl High 35.1-43.9 [facility] Comment on above: Performed By: #### L 100.0100, L500.2500 ####[facility] [address] [place], [place], [address] WBC (Bld) [#/Vol] 5.0 10*3/uL Normal 4.4-11.0 [facility] Comment on above: Performed By: #### L 100.0100, L500.2500 ####[facility] [address] [place], [place], [address] Decalcification bone/plaqueo n 01-05-2025 Decalcification bone/plaque Normal [facility] Comment on above: Performed By: #### P DEC ####[facility] [address] [place], [place], [address] Foot 2 Viewson 01-05-2025 Foot 2 Views Normal [facility] Fungus cultureOrdered By: Janette Forman on 01-05-2025 Fungus identified Cx Nom (Unsp spec) [facility] Fungus stainOrdered By: Yony Forman on 01-05-2025 Fungus identified Fungus stain Nom (Unsp spec) [facility] Gram stainOrdered By: Carolin Foramn on 01-05-2025 Microscopic observation Gram stain Nom (Unsp spec) [facility] MR/POSTOP.ANEon 01-05-2025 MR/POSTOP.ANE Normal [facility] MR/IZUKGEMB9bj 01-05-2025 MR/POSTOPAN2 Normal [facility] Operative Reporton Operative Report Normal [facility] Routine wound cultureOrdered By: Jaden Forman on 01-05-2025 Microbial culture, routine Staphylococcus epidermidis Abnormal [facility] Vancomycin, Trough Levelon 0 01-05-2025 VANCO, TROUGH 9.8 ug/mL Normal 5.0-15.0 [facility] Comment on above: Order Comment: Comme nts: Trough to be drawn 30 mins prior to scheduled [id number] Result Comment: Edgardo mmended goal trough ranges [...] therapy recommended for serious lifethreatening infections include:- Ifirkcjycq-Nhnhrndpwllq-Wpqukeapw (Ventilator/Healtcare Associated)-SepsisPLEASE CONTACT PHARMACY SERVICES (#6472) FOR INTERPRETATIONOF RESULTS. Performed By: #### L 501.8820 ####[facility] [address] [place], [address] Wound Cultureon 01-05-2025 WC Normal [facility] Comment on above: Performed By: #### M 100.3000, M100.4001, M100.2000 ####[facility] [address] [place], [address] Basic Metabolic Profile (BMP )on 01-04-2025 BUN/CRE 30.4 RATIO High 10-20 [facility] Comment on above: Performed By: #### L 500.2500, L100.0100 ####[facility] [address] [place], [address] Calcium [Mass/Vol] 9.2 mg/dL Normal 7.6-11.0 [facility] Comment on above: Performed By: #### L 500.2500, L100.0100 ####[facility] [address] [place], [address] Chloride [Moles/Vol] 108 mmol/L Normal 98-108 [facility] Comment on above: Performed By: #### L 500.2500, L100.0100 ####[facility] [address] [place], [address] CO2 [Moles/Vol] 22.4 mmol/L Normal 21.0-32.0 [facility] Comment on above: Performed By: #### L 500.2500, L100.0100 ####[facility] [address] [place], [address] Creatinine [Mass/Vol] 1.51 mg/dL High 0.70-1.20 [facility] Comment on above: Performed By: #### L 500.2500, L100.0100 ####[facility] [address] [place], [address] ECRCL 40.42 ml/min Low 50-250 [facility] Comment on above: Performed By: #### L 500.2500, L100.0100 ####[facility] [address] [place], [address] GAP 10 Normal 5-15 [facility] Comment on above: Performed By: #### L 500.2500, L100.0100 ####[facility] [address] [place], [address] GFR/1.73 sq M.predicted among non-blacks MDRD (S/P/Bld) [Vol rate/Area] 44 mL/min/{1.73_m2} Low >60 [facility] Comment on above: Result Comment: mL/m in/1.73m2 CKD-EPI Creatinine Equation (2020) Performed By: #### L 500.2500, L100.0100 ####[facility] [address] [place], [address] Glucose [Mass/Vol] 128 mg/dL High 70-99 [facility] Comment on above: Performed By: #### L 500.2500, L100.0100 ####[facility] [address] [place], [address] Potassium [Moles/Vol] 4.1 mmol/L Normal 3.3-5.1 [facility] Comment on above: Performed By: #### L 500.2500, L100.0100 ####[facility] [address] [place], [address] Sodium [Moles/Vol] 140 mmol/L Normal 133-145 [facility] Comment on above: Performed By: #### L 500.2500, L100.0100 ####[facility] [address] [place], [address] Urea nitrogen [Mass/Vol] 46 mg/dL High 4-19 [facility] Comment on above: Performed By: #### L 500.2500, L100.0100 ####[facility] [address] [place], [address] Bedside Glucoseon 01-04-2025 FINGERSTICK GLU 156 mg/dL High 74-106 [facility] Comment on above: Result Comment: AURORA GEMENT OF PATIENT CARE PER NURSING PROTOCOL Performed By: #### L 501.080 ####[facility] [address] [place], [address] FINGERSTICK GLU 113 mg/dL High 74-106 [facility] Comment on above: Result Comment: AURORA GEMENT OF PATIENT CARE PER NURSING PROTOCOL Performed By: #### L 501.080 ####[facility] [address] [place], [address] FINGERSTICK GLU 126 mg/dL High 74-106 [facility] Comment on above: Result Comment: AURORA GEMENT OF PATIENT CARE PER NURSING PROTOCOL Performed By: #### L 501.080 ####[facility] [address] [place], [address] Blood manual differential co mment interpretation (narrative result)Ordered By: Sofia Lopez on 01-04-2025 Manual differential comment Derek (Bld) [Interp] SCANNED [facility] CBC W/Diff, Automatedon 12-21 SMEAR COMMENT SCANNED Normal [facility] Comment on above: Performed By: #### L 500.2500, L100.0100 ####[facility] [address] [place], [address] Culture, Blood (WB)on 2024 CUB Normal [facility] Comment on above: Performed By: #### M 200.1000 ####[facility] [address] [place], [address] CUB Normal [facility] Comment on above: Performed By: #### L 500.4050, L100.0100, M100.636, L503.6005, L300.3900, M200.1000 ####[facility] [address] [place], [address] Vancomycin, Trough Levelon 0 01-04-2025 VANCO, TROUGH 9.0 ug/mL Normal 5.0-15.0 [facility] Comment on above: Order Comment: Comme nts: Trough to be drawn 30 mins prior to scheduled [id number] Result Comment: Edgardo mmended goal trough ranges [...] therapy recommended for serious lifethreatening infections include:- Ggkslzybxd-Yihmpguvynwr-Xhrwybwug (Ventilator/Healtcare Associated)-SepsisPLEASE CONTACT PHARMACY SERVICES (#3430) FOR INTERPRETATIONOF RESULTS. Performed By: #### L 501.8820 ####[facility] [address] [place], [address] Wound Cultureon 01-04-2025 [facility] Comment on above: Performed By: #### M 100.2000, M100.3000, M8200.1075 ####[facility] [address] [place], [address] Anaerobic cultureOrdered By: Jaden Forman on 01-03-2025 Bacteria identified Anaer cx Nom (Unsp spec) No anaerobic bacteria isolated. [facility] Basic Metabolic Profile (BMP )on 01-03-2025 BUN/CRE 22.5 RATIO High 10-20 [facility] Comment on above: Performed By: #### L 100.0100, L500.2500 ####[facility] [address] [place], [address] Calcium [Mass/Vol] 9.1 mg/dL Normal 7.6-11.0 [facility] Comment on above: Performed By: #### L 100.0100, L500.2500 ####[facility] [address] [place], [address] Chloride [Moles/Vol] 105 mmol/L Normal 98-108 [facility] Comment on above: Performed By: #### L 100.0100, L500.2500 ####[facility] [address] [place], [address] CO2 [Moles/Vol] 18.8 mmol/L Low 21.0-32.0 [facility] Comment on above: Performed By: #### L 100.0100, L500.2500 ####[facility] [address] [place], [address] Creatinine [Mass/Vol] 1.72 mg/dL High 0.70-1.20 [facility] Comment on above: Performed By: #### L 100.0100, L500.2500 ####[facility] [address] [place], [address] ECRCL 35.48 ml/min Low 50-250 [facility] Comment on above: Performed By: #### L 100.0100, L500.2500 ####[facility] [address] [place], [address] GAP 12 Normal 5-15 [facility] Comment on above: Performed By: #### L 100.0100, L500.2500 ####[facility] [address] [place], [address] GFR/1.73 sq M.predicted among non-blacks MDRD (S/P/Bld) [Vol rate/Area] 38 mL/min/{1.73_m2} Low >60 [facility] Comment on above: Result Comment: mL/m in/1.73m2 CKD-EPI Creatinine Equation (2020) Performed By: #### L 100.0100, L500.2500 ####[facility] [address] [place], [address] Glucose [Mass/Vol] 184 mg/dL High 70-99 [facility] Comment on above: Performed By: #### L 100.0100, L500.2500 ####[facility] [address] [place], [address] Potassium [Moles/Vol] 4.1 mmol/L Normal 3.3-5.1 [facility] Comment on above: Performed By: #### L 100.0100, L500.2500 ####[facility] [address] [place], [address] Sodium [Moles/Vol] 136 mmol/L Normal 133-145 [facility] Comment on above: Performed By: #### L 100.0100, L500.2500 ####[facility] [address] [place], [address] Urea nitrogen [Mass/Vol] 39 mg/dL High 4-19 [facility] Comment on above: Performed By: #### L 100.0100, L500.2500 ####[facility] [address] [place], [address] Bedside Glucoseon 01-03-2025 FINGERSTICK GLU 127 mg/dL High 74-106 [facility] Comment on above: Result Comment: AURORA HERNANDEZ OF PATIENT CARE PER NURSING PROTOCOL Performed By: #### L 501.080 ####[facility] [address] [place], [address] FINGERSTICK GLU 152 mg/dL High 74-106 [facility] Comment on above: Result Comment: AURORA GEMENT OF PATIENT CARE PER NURSING PROTOCOL Performed By: #### L 501.080 ####[facility] [address] [place], [address] FINGERSTICK GLU 170 mg/dL High 74-106 [facility] Comment on above: Result Comment: AURORA GEMENT OF PATIENT CARE PER NURSING PROTOCOL Performed By: #### L 501.080 ####[facility] [address] [place], [address] FINGERSTICK GLU 136 mg/dL High 74-106 [facility] Comment on above: Result Comment: AURORA GEMENT OF PATIENT CARE PER NURSING PROTOCOL Performed By: #### L 501.080 ####[facility] [address] [place], [address] Blood cultureOrdered By: Ariana Mckenzie on 01-03-2025 Bacteria identified Cx Nom (Bld) Staphylococcus aureus Abnormal [facility] CBC W/Diff, Automatedon 12-21 PLT EST SLT DEC Normal ADEQ [facility] Comment on above: Performed By: #### L 100.0100, L500.2500 ####[facility] [address] [place], [address] Gram Stainon 01-03-2025 GS Positive Normal [facility] Comment on above: Performed By: #### M 100.3000, M100.4001, M100.2000 ####[facility] [address] [place], [address] Gram stainOrdered By: Carolin Forman on 01-03-2025 Microscopic observation Gram stain Nom (Unsp spec) [facility] Routine wound cultureOrdered By: Jaden Forman on 01-03-2025 Microbial culture, routine Meth. resistant Staph. aureus Abnormal [facility] Urine Cultureon 01-03-2025 URC Culture exhibits no growth. Normal [facility] Comment on above: Performed By: #### L 400.0001, M100.2200 ####[facility] [address] [place], [place], [address] Vancomycin, Trough Levelon 0 01-03-2025 VANCO, TROUGH 6.9 ug/mL Normal 5.0-15.0 [facility] Comment on above: Order Comment: Comme nts: Trough to be drawn 30 mins prior to scheduled [id number] Result Comment: Edgardo mmended goal trough ranges [...] therapy recommended for serious lifethreatening infections include:- Yvanyhaamt-Ypzmnrtdppnw-Geodzxnms (Ventilator/Healtcare Associated)-SepsisPLEASE CONTACT PHARMACY SERVICES (#1967) FOR INTERPRETATIONOF RESULTS. Performed By: #### L 501.8820 ####[facility] [address] [place], [place], [address] Absolute lymphocyte countOrd ered By: Mei Mckenzie on 01-02-2025 Lymphocytes Auto (Unsp spec) [#/Vol] 0.19 10*3/uL Low 0.83-4.51 [facility] Absolute neutrophil countOrd ered By: Mei Mckenzie on 01-02-2025 Neutrophils (Bld) [#/Vol] 11.6 10*3/uL High 2.0-7.7 [facility] Anion gap in Serum or Plasma Ordered By: Mei Mckenzie on 01-02-2025 Anion gap [Moles/Vol] 20 mmol/L High 5-15 [facility] Ankle Brachial Indexon 01-02 Ankle Brachial Index Normal [facility] Automated lymphocyte count a s percentage of total leukocytesOrdered By: Mei Mckenzie on 01-02-2025 Lymphocytes/100 WBC Auto (Unsp spec) 1.4 % Low 19-41 [facility] BC GPC IDon 01-02-2025 BC GPC ID Normal [facility] Comment on above: Performed By: #### L 500.4050, L100.0100, M100.636, L503.6005, L300.3900, M200.1000 ####[facility] [address] [place], [address] BUN/creatinine ratioOrdered By: Mei Mckenzie on 01-02-2025 Urea nitrogen/Creatinine [Mass ratio] 20.9 mg/mg High 10-20 [facility] Basophil percentageOrdered B y: Mei Mckenzie on 01-02-2025 Basophils/100 WBC (Bld) 0.2 % 0-1 [facility] Bedside Glucoseon 01-02-2025 FINGERSTICK GLU 156 mg/dL High 74-106 [facility] Comment on above: Result Comment: AURORA GEMENT OF PATIENT CARE PER NURSING PROTOCOL Performed By: #### L 501.080 ####[facility] [address] [place], [address] FINGERSTICK GLU 146 mg/dL High 74-106 [facility] Comment on above: Result Comment: AURORA GEMENT OF PATIENT CARE PER NURSING PROTOCOL Performed By: #### L 501.080 ####[facility] [address] [place], [address] FINGERSTICK GLU 130 mg/dL High 74-106 [facility] Comment on above: Result Comment: AURORA GEMENT OF PATIENT CARE PER NURSING PROTOCOL Performed By: #### L 501.080 ####[facility] [address] [place], [address] FINGERSTICK GLU 129 mg/dL High 74-106 [facility] Comment on above: Result Comment: AURORA GEMENT OF PATIENT CARE PER NURSING PROTOCOL Performed By: #### L 501.080 ####[facility] [address] [place], [address] Bilirubin, totalOrdered By: Mei Mckenzie on 01-02-2025 Bilirubin [Mass/Vol] 1.06 mg/dL 0.00-1.30 [facility] Blood cultureOrdered By: Kenrick Arias on 01-02-2025 Bacteria identified Cx Nom (Bld) Staphylococcus aureus Abnormal [facility] Blood manual differential co mment interpretation (narrative result)Ordered By: Mei Mckenzie on 01-02-2025 Manual differential comment Derek (Bld) [Interp] SCANNED [facility] Comment on above: LYMPHOPENIA PRESENTL EFT SHIFT: BANDS PRESENT 1+ CBC W/Diff, Automatedon 12-21 SMEAR COMMENT SCANNED Normal [facility] Comment on above: Result Comment: LYMP HOPENIA PRESENTLEFT SHIFT: BANDS PRESENT 1+ Performed By: #### L 501.9520, L501.2300, L501.9985, L501.5200, L500.4050, L100.0100 ####[facility] [address] [place], [place], [id number] Carbon dioxide, total [Moles /volume] in Central venous bloodOrdered By: Mei Mckenzie on 01-02-2025 CO2 [Moles/Vol] 13.4 mmol/L Low 21.0-32.0 [facility] Chloride assayOrdered By: Lillian Mckenzie on 01-02-2025 Chloride [Moles/Vol] 102 mmol/L 98-108 [facility] Comprehensive Metabolic Prof ilon 01-02-2025 Albumin [Mass/Vol] 3.4 g/dL Normal 3.4-4.8 [facility] Comment on above: Performed By: #### L 501.9520, L501.2300, L501.9985, L501.5200, L500.4050, L100.0100 ####[facility] [address] [place], [place], [id number] Albumin/Globulin [Mass ratio] 1.0 {ratio} Normal 0.9-2.4 [facility] Comment on above: Performed By: #### L 501.9520, L501.2300, L501.9985, L501.5200, L500.4050, L100.0100 ####[facility] [address] [place], [address] ALK PHOS 177 U/L High 40-129 [facility] Comment on above: Performed By: #### L 501.9520, L501.2300, L501.9985, L501.5200, L500.4050, L100.0100 ####[facility] [address] [place], [address] ALT [Catalytic activity/Vol] 51 U/L High <=46 [facility] Comment on above: Performed By: #### L 501.9520, L501.2300, L501.9985, L501.5200, L500.4050, L100.0100 ####[facility] [address] [place], [address] AST [Catalytic activity/Vol] 114 U/L High <=37 [facility] Comment on above: Result Comment: Hemo lysis present, Results??could be affected.?? Performed By: #### L 501.9520, L501.2300, L501.9985, L501.5200, L500.4050, L100.0100 ####[facility] [address] [place], [address] Bilirubin [Mass/Vol] 1.06 mg/dL Normal 0.00-1.30 [facility] Comment on above: Performed By: #### L 501.9520, L501.2300, L501.9985, L501.5200, L500.4050, L100.0100 ####[facility] [address] [place], [address] BUN/CRE 20.9 RATIO High 10-20 [facility] Comment on above: Performed By: #### L 501.9520, L501.2300, L501.9985, L501.5200, L500.4050, L100.0100 ####[facility] [address] [place], [address] Calcium [Mass/Vol] 9.5 mg/dL Normal 7.6-11.0 [facility] Comment on above: Performed By: #### L 501.9520, L501.2300, L501.9985, L501.5200, L500.4050, L100.0100 ####[facility] [address] [place], [address] Chloride [Moles/Vol] 102 mmol/L Normal 98-108 [facility] Comment on above: Performed By: #### L 501.9520, L501.2300, L501.9985, L501.5200, L500.4050, L100.0100 ####[facility] [address] [place], [address] CO2 [Moles/Vol] 13.4 mmol/L Low 21.0-32.0 [facility] Comment on above: Performed By: #### L 501.9520, L501.2300, L501.9985, L501.5200, L500.4050, L100.0100 ####[facility] [address] [place], [address] Creatinine [Mass/Vol] 1.60 mg/dL High 0.70-1.20 [facility] Comment on above: Performed By: #### L 501.9520, L501.2300, L501.9985, L501.5200, L500.4050, L100.0100 ####[facility] [address] [place], [address] ECRCL 38.14 ml/min Low 50-250 [facility] Comment on above: Performed By: #### L 501.9520, L501.2300, L501.9985, L501.5200, L500.4050, L100.0100 ####[facility] [address] [place], [address] GAP 20 High 5-15 [facility] Comment on above: Performed By: #### L 501.9520, L501.2300, L501.9985, L501.5200, L500.4050, L100.0100 ####[facility] [address] [place], [address] GFR/1.73 sq M.predicted among non-blacks MDRD (S/P/Bld) [Vol rate/Area] 41 mL/min/{1.73_m2} Low >60 [facility] Comment on above: Result Comment: mL/m in/1.73m2 CKD-EPI Creatinine Equation (2020) Performed By: #### L 501.9520, L501.2300, L501.9985, L501.5200, L500.4050, L100.0100 ####[facility] [address] [place], [address] Globulin (S) [Mass/Vol] 3.4 g/dL Normal 2.2-4.2 [facility] Comment on above: Performed By: #### L 501.9520, L501.2300, L501.9985, L501.5200, L500.4050, L100.0100 ####[facility] [address] [place], [address] Glucose [Mass/Vol] 103 mg/dL High 70-99 [facility] Comment on above: Performed By: #### L 501.9520, L501.2300, L501.9985, L501.5200, L500.4050, L100.0100 ####[facility] [address] [place], [address] Potassium [Moles/Vol] 4.6 mmol/L Normal 3.3-5.1 [facility] Comment on above: Result Comment: Hemo lysis present, Results??could be affected.?? Performed By: #### L 501.9520, L501.2300, L501.9985, L501.5200, L500.4050, L100.0100 ####[facility] [address] [place], [address] Sodium [Moles/Vol] 135 mmol/L Normal 133-145 [facility] Comment on above: Performed By: #### L 501.9520, L501.2300, L501.9985, L501.5200, L500.4050, L100.0100 ####[facility] [address] [place], [address] T PROT 6.8 g/dL Normal 5.9-8.4 [facility] Comment on above: Performed By: #### L 501.9520, L501.2300, L501.9985, L501.5200, L500.4050, L100.0100 ####[facility] [address] [place], [address] Urea nitrogen [Mass/Vol] 34 mg/dL High 4-19 [facility] Comment on above: Performed By: #### L 501.9520, L501.2300, L501.9985, L501.5200, L500.4050, L100.0100 ####[facility] [address] [place], [address] Consultation - Infectious Dx on 01-02-2025 Consultation - Infectious Dx Normal [facility] Echo Completeon 01-02-2025 Echo Complete Normal [facility] Echocardiogram study reportO rdered By: Kana Birmingham on 01-02-2025 Study report [facility] Eosinophil percentageOrdered By: Mei Mckenzie on 01-02-2025 Eosinophils/100 WBC (Bld) 0.0 % 0-5 [facility] Erythrocyte distribution wid th ratioOrdered By: Mei Mckenzie on 01-02-2025 Erythrocyte distribution width (RBC) [Ratio] 13.0 % 11.6-14.6 [facility] Erythrocyte distribution wid th standard deviationOrdered By: Mei Mckenzie on 01-02-2025 Erythrocyte distribution width (RBC) [Ratio] 46.5 fl High 35.1-43.9 [facility] Foot min 3 Viewson 5 Foot min 3 Views Normal [facility] Glomerular filtration rate ( GFR) estimation/1.73 sq m using serum, plasma, or whole bOrdered By: Mei Mckenzie on 01-02-2025 GFR/1.73 sq M.predicted among non-blacks MDRD (S/P/Bld) [Vol rate/Area] 41 mL/min/{1.73_m2} Low >60 [facility] Comment on above: mL/min/1.73m2 CKD-EP I Creatinine Equation (2020) [facility] deOrdered By: Sofia Lopez on 01-02-2025 Glucose [Mass/Vol] 146 mg/dL High 74-106 [facility] Comment on above: MANAGEMENT OF PATIEN T CARE PER NURSING PROTOCOL Gram Stainon 01-02-2025 GS List Antibiotics Last 48 Hours? vancomyacin;zosyn List Antibiotics to be Started? zosyn Gram Stain 3+ Gram positive cocci 1+ Gram positive rods Normal [facility] Comment on above: Performed By: #### M 100.2000, M100.3000, M8200.1075 ####[facility] [address] [facility] [place], [address] Gram stainOrdered By: Leyla Mckenzie on 01-02-2025 Microscopic observation Gram stain Nom (Unsp spec) [facility] Hematocrit Auto (Bld) [Volum e fraction]Ordered By: Mei Mckenzie on 01-02-2025 Hematocrit (Bld) [Volume fraction] 39.0 % Low 40-54 [facility] Hemoglobin A1con 01-02-2025 HbA1c (Bld) [Mass fraction] 6.2 % High <=5.6 [facility] Comment on above: Result Comment: Norm al < 5.7 % Prediabetic 5.7 - 6.4 % Diabetic >or= 6.5 % Please note range changes. Performed By: #### L 501.9520, L501.2300, L501.9985, L501.5200, L500.4050, L100.0100 ####[facility] [address] [place], [address] Hemoglobin A1c percentageOrd ered By: Mei Mckenzie on 01-02-2025 HbA1c (Bld) [Mass fraction] 6.2 % High <5.7 [facility] Comment on above: Normal < 5.7 % Predi abetic 5.7 - 6.4 % Diabetic >or= 6.5 % Please note range changes. Hemoglobin measurementOrdere d By: Mei Mckenzie on 01-02-2025 Hemoglobin (Bld) [Mass/Vol] 13.2 g/dL 13.0-16.5 [facility] Immature granulocytes/100 WB C Auto (Bld)Ordered By: Mei Mckenzie on 01-02-2025 Immature granulocytes/100 WBC (Bld) 0.700 % 0.0-0.9 [facility] Comment on above: IG% - Immature Granu locytes (promyelocytes, myelocytes and metamyelocytes) > 1% indicates that a LEFT SHIFT is Present. Laboratory - Chemistry and C hemistry - challengeOrdered By: Mei Mckenzie on 01-02-2025 AST [Catalytic activity/Vol] 114 U/L High <38 [facility] Comment on above: Hemolysis present, R esults could be affected. M100.019on 01-02-2025 M100.019 Negative Normal [facility] Comment on above: Performed By: #### M 100.019 ####[facility] [address] [place], [address] M8200.1075on 01-02-2025 M8200.1075 Normal [facility] Comment on above: Performed By: #### M 100.2000, M100.3000, M8200.1075 ####[facility] [address] [place], [address] MCV (mean corpuscular volume ) determinationOrdered By: Mei Mckenzie on 01-02-2025 MCV (RBC) [Entitic vol] 97.5 fL High 80-94 [facility] Magnesiumon 01-02-2025 Magnesium [Mass/Vol] 2.2 mg/dL Normal 1.5-2.2 [facility] Comment on above: Performed By: #### L 501.9520, L501.2300, L501.9985, L501.5200, L500.4050, L100.0100 ####[facility] [address] [place], [address] Magnesium measurement (mass/ volume)Ordered By: Mei Mckenzie on 01-02-2025 Magnesium (Unsp spec) [Mass/Vol] 2.2 mg/dL 1.5-2.2 [facility] Mean corpuscular hemoglobin (MCH) determinationOrdered By: Mei Mckenzie on 01-02-2025 MCH (RBC) [Entitic mass] 33.0 pg High 27.0-32.0 [facility] Mean corpuscular hemoglobin concentration (MCHC) determinationOrdered By: Mei Mckenzie on 01-02-2025 MCHC (RBC) [Mass/Vol] 33.8 g/dL 32-36 [facility] Mean platelet volume determi nationOrdered By: Mei Mckenzie on 01-02-2025 Platelet mean volume (Bld) [Entitic vol] 10.0 fL 6.2-12.0 [facility] Monocyte percentageOrdered B y: Mei Mckenzie on 01-02-2025 Monocytes/100 WBC (Bld) 9.4 % 0-10 [facility] Neutrophil percentageOrdered By: Mei Mckenzie on 01-02-2025 Neutrophils/100 WBC (Bld) 88.3 % High 47-70 [facility] No Panel InformationOrdered By: Mei Mckenzie on 01-02-2025 114 U/L High <38 [facility] Nucleated red blood cell per centageOrdered By: Mei Mckenzie on 01-02-2025 Nucleated RBC/100 WBC (Bld) [Ratio] 0 % 0-5 [facility] Phosphoruson 01-02-2025 Phosphate [Mass/Vol] 2.1 mg/dL Low 2.7-4.5 [facility] Comment on above: Performed By: #### L 501.9520, L501.2300, L501.9985, L501.5200, L500.4050, L100.0100 ####[facility] [address] [facility] [place], [place], [id number] Platelet countOrdered By: Lillian Mckenzie on 01-02-2025 Platelets (Bld) [#/Vol] 117 10*3/uL Low 150-450 [facility] Potassium measurement (mass/ volume)Ordered By: Mei Mckenzie on 01-02-2025 Potassium (Unsp spec) [Mass/Vol] 4.6 mmol/L 3.3-5.1 [facility] Comment on above: Hemolysis present, R esults could be affected. RBC Auto (Bld) [#/Vol]Ordere d By: Mei Mckenzie on 01-02-2025 RBC (Bld) [#/Vol] 4.00 10*6/uL Low 4.6-6.2 [facility] RESPIRATORY PANEL MOLECULARo n 01-02-2025 RP PANEL Normal [facility] Comment on above: Performed By: #### M 100.638 ####[facility] [address] [facility] [place], [place], [address] Respiratory pathogens detect ion panel by molecular detection methodOrdered By: Mei Mckenzie on 01-02-2025 Respiratory pathogens DNA and RNA panel LILY+probe (Resp) [facility] Tjbx-vor-1Maurela By: Leyla Mckenzie on 01-02-2025 SARS-CoV-2 (COVID-19) RNA LILY+probe Ql (Unsp spec) [facility] Serum creatinine measurement (mass/volume)Ordered By: Mei Mckenzie on 01-02-2025 Creatinine [Mass/Vol] 1.60 mg/dL High 0.70-1.20 [facility] Serum globulin measurementOr dered By: Mei Mckenzie on 01-02-2025 Globulin (S) [Mass/Vol] 3.4 g/dL 2.2-4.2 [facility] Serum glucose measurement (m ass/volume)Ordered By: Mei Mckenzie on 01-02-2025 Glucose [Mass/Vol] 103 mg/dL High 70-99 [facility] Serum or plasma alanine meraz otransferase (ALT) measurementOrdered By: Mei Mckenzie on 01-02-2025 ALT [Catalytic activity/Vol] 51 U/L High <47 [facility] Serum or plasma albumin ana urement (mass/volume)Ordered By: Mei Mckenzie on 01-02-2025 Albumin [Mass/Vol] 3.4 g/dL 3.4-4.8 [facility] Serum or plasma albumin/glob ulin mass ratioOrdered By: Mei Mckenzie on 01-02-2025 Albumin/Globulin [Mass ratio] 1.0 {ratio} 0.9-2.4 [facility] Serum or plasma alkaline keenan sphatase measurementOrdered By: Mei Mckenzie on 01-02-2025 ALP [Catalytic activity/Vol] 177 U/L High 40-129 [facility] Serum or plasma calcium ana urement (mass/volume)Ordered By: Mei Mckenzie on 01-02-2025 Calcium [Mass/Vol] 9.5 mg/dL 7.6-11.0 [facility] Serum or plasma urea nitroge n measurement (mass/volume)Ordered By: Mei Mckenzie on 01-02-2025 Urea nitrogen [Mass/Vol] 34 mg/dL High 4-19 [facility] Sodium levelOrdered By: Rosa Mckenzie on 01-02-2025 Sodium [Moles/Vol] 135 mmol/L 133-145 [facility] TSH DL <= 0.005 mIU/L QnOrde red By: Mei Mckenzie on 01-02-2025 TSH Qn 1.270 uIU/mL 0.300-4.200 [facility] Thyroid Stim Hormone (TSH)on 01-02-2025 TSH 1.270 uIU/mL Normal 0.300-4.200 [facility] Comment on above: Performed By: #### L 501.9520, L501.2300, L501.9985, L501.5200, L500.4050, L100.0100 ####[facility] [address] [place], [place], [id number] Total proteinOrdered By: Ariana rosangela Jonah on 01-02-2025 Protein [Mass/Vol] 6.8 g/dL 5.9-8.4 [facility] White blood cell (WBC) count Ordered By: Mei Mckenzie on 01-02-2025 WBC (Bld) [#/Vol] 13.2 10*3/uL High 4.4-11.0 [facility] Absolute lymphocyte countOrd ered By: Booker Rodríguez on 01-01-2025 Lymphocytes Auto (Unsp spec) [#/Vol] 0.18 10*3/uL Low 0.83-4.51 [facility] Absolute neutrophil countOrd ered By: Booker Rodríguez on 01-01-2025 Neutrophils (Bld) [#/Vol] 6.0 10*3/uL 2.0-7.7 [facility] Activated partial thrombopla stin time (aPTT) in platelet poor plasma by coagulation aOrdered By: Booker Rodríguez on 01-01-2025 aPTT Coag (PPP) [Time] 24.3 s 24.1-36.2 [facility] Ammoniaon 01-01-2025 Ammonia (P) [Moles/Vol] 13.6 umol/L Low 16-60 [facility] Comment on above: Performed By: #### L 503.5510 ####[facility] [address] [place], [place], [phone] Anion gap in Serum or Plasma Ordered By: Booker Rodríguez on 01-01-2025 Anion gap [Moles/Vol] 13 mmol/L 5-15 [facility] Automated lymphocyte count a s percentage of total leukocytesOrdered By: Booker Rodríguez on 01-01-2025 Lymphocytes/100 WBC Auto (Unsp spec) 2.6 % Low 19-41 [facility] BUN/creatinine ratioOrdered By: Booker Rodríguez on 01-01-2025 Urea nitrogen/Creatinine [Mass ratio] 23.1 mg/mg High 10-20 [facility] Basophil percentageOrdered B y: Booker Rodríguez on 01-01-2025 Basophils/100 WBC (Bld) 0.3 % 0-1 [facility] Bedside Glucoseon 01-01-2025 FINGERSTICK GLU 101 mg/dL Normal 74-106 [facility] Comment on above: Result Comment: AURORA HERNANDEZ OF PATIENT CARE PER NURSING PROTOCOL Performed By: #### L 501.080 ####[facility] [address] [place], [address] Bilirubin Test strip Ql (U)O rdered By: Booker Rodríguez on 01-01-2025 Bilirubin Ql (U) Negative Negative [facility] Bilirubin, totalOrdered By: Booker Rodríguez on 01-01-2025 Bilirubin [Mass/Vol] 0.76 mg/dL 0.00-1.30 [facility] Blood cultureOrdered By: Helen Rodríguez on 01-01-2025 Bacteria identified Cx Nom (Bld) Staphylococcus aureus Abnormal [facility] Bacteria identified Cx Nom (Bld) Staphylococcus aureus Abnormal [facility] Blood manual differential co mment interpretation (narrative result)Ordered By: Booker Rodríguez on 01-01-2025 Manual differential comment Derek (Bld) [Interp] SCANNED [facility] Brain/Head without Contrasto n 01-01-2025 Brain/Head without Contrast Normal [facility] CBC W/Diff, Automatedon 12-21 PLT EST ADEQUATE Normal ADEQ [facility] Comment on above: Performed By: #### L 500.4050, L100.0100, M100.636, L503.6005, L300.3900, M200.1000 ####[facility] [address] [place], [address] Platelet mean volume (Bld) [Entitic vol] 11.2 fL Normal 6.2-12.0 [facility] Comment on above: Performed By: #### L 500.4050, L100.0100, M100.636, L503.6005, L300.3900, M200.1000 ####[facility] [address] [place], [place], [id number] SMEAR COMMENT SCANNED Normal [facility] Comment on above: Performed By: #### L 500.4050, L100.0100, M100.636, L503.6005, L300.3900, M200.1000 ####[facility] [address] [place], [place], [id number] PLT TNP Normal 150-450 [facility] Comment on above: Result Comment: Amanda mei note: For this sample, a platelet estimate isprovided rather than a platelet count due to plateletclumping. Other parameters associated with this sample arenot affected by platelet clumping. If a more accurateplatelet count is required, a redraw of the patient will benecessary. Performed By: #### L 500.4050, L100.0100, M100.636, L503.6005, L300.3900, M200.1000 ####[facility] [address] [place], [place], [id number] CRPon 01-01-2025 C-REACTIVE PROT 168.00 mg/L High 0.0-3.0 [facility] Comment on above: Performed By: #### L 501.6710, L101.9900 ####[facility] [address] [place], [place], [id number] Carbon dioxide, total [Moles /volume] in Central venous bloodOrdered By: Bokoer Rodríguez on 01-01-2025 CO2 [Moles/Vol] 20.9 mmol/L Low 21.0-32.0 [facility] Chest PA and Lateralon 01-01 Chest PA and Lateral Normal [facility] Chloride assayOrdered By: Gagan Rodríguez on 01-01-2025 Chloride [Moles/Vol] 100 mmol/L 98-108 [facility] Comprehensive Metabolic Prof ilon 01-01-2025 Albumin [Mass/Vol] 3.7 g/dL Normal 3.4-4.8 [facility] Comment on above: Performed By: #### L 500.4050, L100.0100, M100.636, L503.6005, L300.3900, M200.1000 ####[facility] [address] [place], [address] Albumin/Globulin [Mass ratio] 1.2 {ratio} Normal 0.9-2.4 [facility] Comment on above: Performed By: #### L 500.4050, L100.0100, M100.636, L503.6005, L300.3900, M200.1000 ####[facility] [address] [place], [address] ALK PHOS 189 U/L High 40-129 [facility] Comment on above: Performed By: #### L 500.4050, L100.0100, M100.636, L503.6005, L300.3900, M200.1000 ####[facility] [address] [place], [address] ALT [Catalytic activity/Vol] 48 U/L High <=46 [facility] Comment on above: Performed By: #### L 500.4050, L100.0100, M100.636, L503.6005, L300.3900, M200.1000 ####[facility] [address] [place], [address] AST [Catalytic activity/Vol] 86 U/L High <=37 [facility] Comment on above: Result Comment: Hemo lysis present, Results??could be affected.?? Performed By: #### L 500.4050, L100.0100, M100.636, L503.6005, L300.3900, M200.1000 ####[facility] [facility] [address] [place], [address] Bilirubin [Mass/Vol] 0.76 mg/dL Normal 0.00-1.30 [facility] Comment on above: Performed By: #### L 500.4050, L100.0100, M100.636, L503.6005, L300.3900, M200.1000 ####[facility] [address] [place], [address] BUN/CRE 23.1 RATIO High 10-20 [facility] Comment on above: Performed By: #### L 500.4050, L100.0100, M100.636, L503.6005, L300.3900, M200.1000 ####[facility] [address] [place], [address] Calcium [Mass/Vol] 9.6 mg/dL Normal 7.6-11.0 [facility] Comment on above: Performed By: #### L 500.4050, L100.0100, M100.636, L503.6005, L300.3900, M200.1000 ####[facility] [address] [place], [address] Chloride [Moles/Vol] 100 mmol/L Normal 98-108 [facility] Comment on above: Performed By: #### L 500.4050, L100.0100, M100.636, L503.6005, L300.3900, M200.1000 ####[facility] [address] [place], [address] CO2 [Moles/Vol] 20.9 mmol/L Low 21.0-32.0 [facility] Comment on above: Performed By: #### L 500.4050, L100.0100, M100.636, L503.6005, L300.3900, M200.1000 ####[facility] [address] [place], [address] Creatinine [Mass/Vol] 1.95 mg/dL High 0.70-1.20 [facility] Comment on above: Performed By: #### L 500.4050, L100.0100, M100.636, L503.6005, L300.3900, M200.1000 ####[facility] [address] [place], [address] ECRCL 31.30 ml/min Low 50-250 [facility] Comment on above: Performed By: #### L 500.4050, L100.0100, M100.636, L503.6005, L300.3900, M200.1000 ####[facility] [address] [place], [address] GAP 13 Normal 5-15 [facility] Comment on above: Performed By: #### L 500.4050, L100.0100, M100.636, L503.6005, L300.3900, M200.1000 ####[facility] [address] [place], [address] GFR/1.73 sq M.predicted among non-blacks MDRD (S/P/Bld) [Vol rate/Area] 32 mL/min/{1.73_m2} Low >60 [facility] Comment on above: Result Comment: mL/m in/1.73m2 CKD-EPI Creatinine Equation (2020) Performed By: #### L 500.4050, L100.0100, M100.636, L503.6005, L300.3900, M200.1000 ####[facility] [address] [place], [address] Globulin (S) [Mass/Vol] 3.2 g/dL Normal 2.2-4.2 [facility] Comment on above: Performed By: #### L 500.4050, L100.0100, M100.636, L503.6005, L300.3900, M200.1000 ####[facility] [address] [place], [address] Glucose [Mass/Vol] 171 mg/dL High 70-99 [facility] Comment on above: Performed By: #### L 500.4050, L100.0100, M100.636, L503.6005, L300.3900, M200.1000 ####[facility] [address] [place], [address] Potassium [Moles/Vol] 4.7 mmol/L Normal 3.3-5.1 [facility] Comment on above: Result Comment: Hemo lysis present, Results??could be affected.?? Performed By: #### L 500.4050, L100.0100, M100.636, L503.6005, L300.3900, M200.1000 ####[facility] [address] [place], [address] Sodium [Moles/Vol] 134 mmol/L Normal 133-145 [facility] Comment on above: Performed By: #### L 500.4050, L100.0100, M100.636, L503.6005, L300.3900, M200.1000 ####[facility] [address] [place], [address] T PROT 6.9 g/dL Normal 5.9-8.4 [facility] Comment on above: Performed By: #### L 500.4050, L100.0100, M100.636, L503.6005, L300.3900, M200.1000 ####[facility] [address] [place], [address] Urea nitrogen [Mass/Vol] 45 mg/dL High 4-19 [facility] Comment on above: Performed By: #### L 500.4050, L100.0100, M100.636, L503.6005, L300.3900, M200.1000 ####[facility] [address] [place], [address] Emergency Department Summary on 01-01-2025 Emergency Department Summary Normal [facility] Eosinophil percentageOrdered By: Booker Rodríguez on 01-01-2025 Eosinophils/100 WBC (Bld) 0.1 % 0-5 [facility] Erythrocyte Sed Rateon 01-01 SED RATE 42 mm/hr High 0-20 [facility] Comment on above: Performed By: #### L 501.6710, L101.9900 ####[facility] [address] [place], [place], [id number] Erythrocyte distribution wid th ratioOrdered By: Booker Rodríguez on 01-01-2025 Erythrocyte distribution width (RBC) [Ratio] 13.1 % 11.6-14.6 [facility] Erythrocyte distribution wid th standard deviationOrdered By: Booker Rodríguez on 01-01-2025 Erythrocyte distribution width (RBC) [Ratio] 46.9 fl High 35.1-43.9 [facility] Erythrocyte sedimentation ra teOrdered By: Mei Mckenzie on 01-01-2025 ESR (Bld) [Velocity] 42 mm/h High 0-20 [facility] Extremity Lower without Cont raon 01-01-2025 Extremity Lower without Contra Normal [facility] Glomerular filtration rate ( GFR) estimation/1.73 sq m using serum, plasma, or whole bOrdered By: Booker Rodríguez on 01-01-2025 GFR/1.73 sq M.predicted among non-blacks MDRD (S/P/Bld) [Vol rate/Area] 32 mL/min/{1.73_m2} Low >60 [facility] Comment on above: mL/min/1.73m2 CKD-EP I Creatinine Equation (2020) H AND P Exam - Hospitaliston 01-01-2025 H&P Exam - Hospitalist Normal [facility] Hematocrit Auto (Bld) [Volum e fraction]Ordered By: Booker Rodríguez on 01-01-2025 Hematocrit (Bld) [Volume fraction] 37.4 % Low 40-54 [facility] Hemoglobin measurementOrdere d By: Booker Rodríguez on 01-01-2025 Hemoglobin (Bld) [Mass/Vol] 12.8 g/dL Low 13.0-16.5 [facility] Hyaline casts LM.LPF (Urine sed) [#/Area]Ordered By: Booker Rodríguez on 01-01-2025 Hyaline casts (Urine sed) [#/Area] 0 /[LPF] 0-5 [facility] Immature granulocytes/100 WB C Auto (Bld)Ordered By: Booker Rodríguez on 01-01-2025 Immature granulocytes/100 WBC (Bld) 0.700 % 0.0-0.9 [facility] Comment on above: IG% - Immature Granu locytes (promyelocytes, myelocytes and metamyelocytes) > 1% indicates that a LEFT SHIFT is Present. International normalized rat io (INR) calculationOrdered By: Booker Rodríguez on 01-01-2025 INR Coag (Bld) [Relative time] 0.9 {INR} [facility] Ketones Test strip Ql (U)Ord ered By: Booker Rodríguez on 01-01-2025 Ketones Ql (U) 5 mg/dl High Negative [facility] Laboratory - Chemistry and C hemistry - challengeOrdered By: Booker Rodríguez on 01-01-2025 AST [Catalytic activity/Vol] 86 U/L High <38 [facility] Comment on above: Hemolysis present, R esults could be affected. Lactic Acidon 01-01-2025 Lactate [Moles/Vol] 1.1 mmol/L Normal 0.0-2.0 [facility] Comment on above: Performed By: #### L 503.6005 ####[facility] [address] [place], [place], [id number] Lactate [Moles/Vol] 2.0 mmol/L Normal 0.0-2.0 [facility] Comment on above: Order Comment: Y Result Comment: Crit ical Result(s) Called KATELYNN at:1649 by:GARCÍA??Results read back by same. Performed By: #### L 500.4050, L100.0100, M100.636, L503.6005, L300.3900, M200.1000 ####[facility] [address] [place], [place], [address] Lactic acid measurementOrder ed By: Booker Rodríguez on 06-12-2025 Lactate [Moles/Vol] 1.1 mmol/L 0.0-2.0 [facility] MCV (mean corpuscular volume ) determinationOrdered By: Booker Rodríguez on 01-01-2025 MCV (RBC) [Entitic vol] 96.6 fL High 80-94 [facility] Mean corpuscular hemoglobin (MCH) determinationOrdered By: Booker Rodríguez on 01-01-2025 MCH (RBC) [Entitic mass] 33.1 pg High 27.0-32.0 [facility] Mean corpuscular hemoglobin concentration (MCHC) determinationOrdered By: Booker Rodríguez on 01-01-2025 MCHC (RBC) [Mass/Vol] 34.2 g/dL 32-36 [facility] Mean platelet volume determi nationOrdered By: Booker Rodríguez on 01-01-2025 Platelet mean volume (Bld) [Entitic vol] 11.2 fL 6.2-12.0 [facility] Microscopic analysis of urin e for red blood cells (RBC)Ordered By: Booker Rodríguez on 01-01-2025 Microscopic analysis of urine for red blood cells (RBC) 5-10 SEEN /hpf 0-5 [facility] Monocyte percentageOrdered B y: Booker Rodríguez on 01-01-2025 Monocytes/100 WBC (Bld) 9.8 % 0-10 [facility] Mucus LM Ql (Urine sed)Order ed By: Booker Rodríguez on 01-01-2025 Mucus Ql (Urine sed) 0 SEEN /hpf [facility] Neutrophil percentageOrdered By: Booker Rodríguez on 01-01-2025 Neutrophils/100 WBC (Bld) 86.5 % High 47-70 [facility] Nitrite Test strip Ql (U)Ord ered By: Booker Rodríguez on 01-01-2025 Nitrite Ql (U) Negative Negative [facility] No Panel InformationOrdered By: Booker Rodríguez on 01-01-2025 Blood Gas Sample Site Not entered [facility] Blood Gas Specimen Type JOON [facility] Oxygen Delivery Device Room Air [facility] JOON [facility] Not entered [facility] Room Air [facility] Nucleated red blood cell per centageOrdered By: Booker Rodríguez on 01-01-2025 Nucleated RBC/100 WBC (Bld) [Ratio] 0 % 0-5 [facility] Organism identificationOrder ed By: Booker Rodríguez on 01-01-2025 Microorganism identified Cx Nom (Unsp spec) Staphylococcus aureus Abnormal [facility] Partial Thromboplast Timeon 01-01-2025 aPTT Coag (Bld) [Time] 24.3 s Normal 24.1-36.2 [facility] Comment on above: Performed By: #### L 300.3900, L300.4310 ####[facility] [address] [place], [place], [phone] Platelet countOrdered By: Gagan Rodríguez on 01-01-2025 Platelet count TNP [facility] Comment on above: Test not performedPl ease [...] 01-01-2025 Platelets LM Ql (Bld) ADEQUATE ADEQ [facility] Potassium measurement (mass/ volume)Ordered By: Booker Rodríguez on 01-01-2025 Potassium (Unsp spec) [Mass/Vol] 4.7 mmol/L 3.3-5.1 [facility] Comment on above: Hemolysis present, R esults could be affected. Protein Test strip Ql (U)Ord ered By: Booker Rodríguez on 01-01-2025 Protein Ql (U) 30 mg/dl High Negative [facility] Prothrombin Time w/INRon INR Coag (PPP) [Relative time] 0.9 {INR} Normal [facility] Comment on above: Performed By: #### L 300.3900, L300.4310 ####[facility] [address] [place], [place], [id number] PT Coag (PPP) [Time] 12.7 s Normal 11.7-14.9 [facility] Comment on above: Performed By: #### L 300.3900, L300.4310 ####[facility] [address] [place], [address] INR Normal [facility] Comment on above: Result Comment: This specimen has been REJECTED due to Laboratory criteria:Clotted.MARIAN ROMEROMARYJOCAROLINA has been notified of need ofrecollection.01/01/251751 Maren Anson Performed By: #### L 500.4050, L100.0100, M100.636, L503.6005, L300.3900, M200.1000 ####[facility] [address] [place], [address] PROTIME Normal 11.7-14.9 [facility] Comment on above: Result Comment: This specimen has been REJECTED due to Laboratory criteria:Clotted.MARIAN CAPPS has been notified of need ofrecollection.01/01/251751 Maren Anson Performed By: #### L 500.4050, L100.0100, M100.636, L503.6005, L300.3900, M200.1000 ####[facility] [address] [place], [address] Prothrombin timeOrdered By: Booker Rodríguez on 01-01-2025 PT Coag (PPP) [Time] 12.7 s 11.7-14.9 [facility] RBC Auto (Bld) [#/Vol]Ordere d By: Booker Rodríguez on 01-01-2025 RBC (Bld) [#/Vol] 3.87 10*6/uL Low 4.6-6.2 [facility] Serum creatinine measurement (mass/volume)Ordered By: Booker Rodríguez on 01-01-2025 Creatinine [Mass/Vol] 1.95 mg/dL High 0.70-1.20 [facility] Serum globulin measurementOr dered By: Booker Rodríguez on 01-01-2025 Globulin (S) [Mass/Vol] 3.2 g/dL 2.2-4.2 [facility] Serum glucose measurement (m ass/volume)Ordered By: Booker Rodríguez on 01-01-2025 Glucose [Mass/Vol] 171 mg/dL High 70-99 [facility] Serum or plasma C reactive p rotein measurement (mass/volume)Ordered By: Mei Mckenzie on 01-01-2025 CRP [Mass/Vol] 168.00 mg/L High 0.0-3.0 [facility] Serum or plasma alanine meraz otransferase (ALT) measurementOrdered By: Booker Rodríguez on 01-01-2025 ALT [Catalytic activity/Vol] 48 U/L High <47 [facility] Serum or plasma albumin ana urement (mass/volume)Ordered By: Booker Rodríguez on 01-01-2025 Albumin [Mass/Vol] 3.7 g/dL 3.4-4.8 [facility] Serum or plasma albumin/glob ulin mass ratioOrdered By: Booker Rodríguez on 01-01-2025 Albumin/Globulin [Mass ratio] 1.2 {ratio} 0.9-2.4 [facility] Serum or plasma alkaline keenan sphatase measurementOrdered By: Booker Rodríguez on 01-01-2025 ALP [Catalytic activity/Vol] 189 U/L High 40-129 [facility] Serum or plasma calcium ana urement (mass/volume)Ordered By: Booker Rodríguez on 01-01-2025 Calcium [Mass/Vol] 9.6 mg/dL 7.6-11.0 [facility] Serum or plasma urea nitroge n measurement (mass/volume)Ordered By: Booker Rodríguez on 01-01-2025 Urea nitrogen [Mass/Vol] 45 mg/dL High 4-19 [facility] Sodium levelOrdered By: Booker Rodríguez on 01-01-2025 Sodium [Moles/Vol] 134 mmol/L 133-145 [facility] Squamous epithelial cells de tection in urine sediment by light microscopyOrdered By: Booker Rodríguez on 01-01-2025 Epithelial cells.squamous LM Ql (Urine sed) 0 SEEN /hpf 0-5 [facility] Total proteinOrdered By: Helen Rodríguez on 01-01-2025 Protein [Mass/Vol] 6.9 g/dL 5.9-8.4 [facility] Urinalysis, Completeon 01-01 CAST,HYALINE 0-5 SEEN Normal 0-5 [facility] Comment on above: Order Comment: JULIANNA TER SPECIMEN Performed By: #### L 400.0001, M100.2200 ####[facility] [address] [place], [address] RBC 5-10 SEEN Normal 0-5 [facility] Comment on above: Order Comment: JULAINNA TER SPECIMEN Performed By: #### L 400.0001, M100.2200 ####[facility] [address] [place], [address] WBC 0-5 SEEN Normal 0-5 [facility] Comment on above: Order Comment: JULIANNA TER SPECIMEN Performed By: #### L 400.0001, M100.2200 ####[facility] [address] [place], [address] BACTERIA 0 SEEN Normal None Seen [facility] Comment on above: Order Comment: JULIANNA TER SPECIMEN Performed By: #### L 400.0001, M100.0 ####[facility] [address] [place], [address] EPI,SQUAMOUS 0 SEEN Normal 0-5 [facility] Comment on above: Order Comment: JULIANNA TER SPECIMEN Performed By: #### L 400.0001, M100.2200 ####[facility] [address] [place], [address] Mucus Ql (Urine sed) 0 SEEN Normal [facility] Comment on above: Order Comment: JULIANNA TER SPECIMEN Performed By: #### L 400.0001, M100.2200 ####[facility] [address] [place], [address] Urine clarityOrdered By: Helen Rodríguez on 01-01-2025 Clarity (U) Sl. Cloudy Clear [facility] Urine color determinationOrd ered By: Booker Rodríguez on 01-01-2025 Color (U) Yellow Yellow [facility] Urine cultureOrdered By: Helen Rodríguez on 01-01-2025 Bacteria identified Cx Nom (U) Culture exhibits no growth. [facility] Urine glucose detectionOrder ed By: Booker Rodríguez on 01-01-2025 Glucose Ql (U) Normal mg/dl Normal [facility] Urine leukocyte esterase det ection by dipstickOrdered By: Booker Rodríguez on 01-01-2025 Leukocyte esterase Test strip Ql (U) Negative Negative [facility] Urine pHOrdered By: Booker chaudhari on 01-01-2025 pH (U) 6.0 [pH] 5.0 - 8.0 [facility] Urine sediment bacteria coun t by microscopy (number/high power field)Ordered By: Booker Rodríguez on 01-01-2025 Bacteria LM.HPF (Urine sed) [#/Area] 0 /[HPF] None Seen [facility] Urine specific gravity measu rementOrdered By: Booker Rodríguez on 01-01-2025 Specific gravity (U) [Rel density] 1.020 1.002-1.030 [facility] Urine urobilinogen measureme ntOrdered By: Booker Rodríguez on 01-01-2025 Urobilinogen Ql (U) Normal mg/dl Normal [facility] Venous Blood Gason Blood Gas Type JOON Normal [facility] Comment on above: Performed By: #### L 9000.0810 ####[facility] [address] [place], [place], [address] O2 Delivery Dev Room Air Normal [facility] Comment on above: Performed By: #### L 9000.0810 ####[facility] [address] [place], [address] SITE Not entered Normal [facility] Comment on above: Performed By: #### L 9000.0810 ####[facility] [address] [place], [address] VBG BE -3 mmol/L Low -1.0-3.5 [facility] Comment on above: Performed By: #### L 0.0810 ####[facility] [address] [place], [place], [address] VBG pCO2 35.1 mmHg Low 41-51 [facility] Comment on above: Performed By: #### L 9000.0810 ####[facility] [address] [place], [address] VBG pH 7.41 Normal 7.32-7.42 [facility] Comment on above: Performed By: #### L 9000.0810 ####[facility] [address] [place], [address] VBG PO2 32 mmHg Normal 25-40 [facility] Comment on above: Performed By: #### L 9000.0810 ####[facility] [address] [place], [place], [address] VBG SO2 62 Normal 50-70 [facility] Comment on above: Performed By: #### L 9000.0810 ####[facility] [address] [place], [place], [address] Venous blood ammonia measure mentOrdered By: Mei Mckenzie on 01-01-2025 Ammonia (P) [Moles/Vol] 13.6 umol/L Low 16-60 [facility] Venous blood base excess treva surementOrdered By: Booker Rodríguez on 01-01-2025 Base excess Calc (BldV) [Moles/Vol] -3 mmol/L Low -1.0-3.5 [facility] Venous blood bicarbonate treva surementOrdered By: Booker Rodríguez on 01-01-2025 HCO3 (Bld) [Moles/Vol] 22 mmol/L Normal 22-26 [facility] Comment on above: Performed By: #### L 9000.0810 ####[facility] [address] [place], [place], [address] Venous blood oxygen saturati on measurementOrdered By: Booker Rodríguez on 01-01-2025 Oxygen saturation in Blood 62 % 50-70 [facility] Venous blood pH measurementO rdered By: Booker Rodríguez on 01-01-2025 pH (BldV) 7.41 [pH] 7.32-7.42 [facility] Venous blood partial pressur e of carbon dioxide measurementOrdered By: Booker Rodríguez on 01-01-2025 CO2 (BldV) [Partial pressure] 35.1 mm[Hg] Low 41-51 [facility] Venous blood partial pressur e of oxygen measurementOrdered By: Booker Rodríguez on 01-01-2025 Oxygen (BldV) [Partial pressure] 32 mm[Hg] 25-40 [facility] Venous blood total carbon di oxide measurementOrdered By: Booker Rodríguez on 01-01-2025 CO2 [Moles/Vol] 23 mmol/L Normal 23-33 [facility] Comment on above: Performed By: #### L 9000.0810 ####[facility] [address] [facility] [place], [address] White blood cell (WBC) count Ordered By: Booker Rodríguez on 01-01-2025 WBC (Bld) [#/Vol] 7.0 10*3/uL 4.4-11.0 [facility] White blood cell countOrdere d By: Booker Rodríguez on 01-01-2025 White blood cell count 0-5 SEEN /hpf 0-5 [facility] aPTTon 01-01-2025 aPTT [facility] Emergency Department Summary on 12-31-2024 Emergency Department Summary Normal [facility] deOrdered By: Jaden Forman on 12-31-2024 Glucose [Mass/Vol] 101 mg/dL 74-106 [facility] Comment on above: MANAGEMENT OF PATIEN T CARE PER NURSING PROTOCOL Anion gap in Serum or Plasma Ordered By: Michael Meeks on 12-17-2024 Anion gap [Moles/Vol] 9 mmol/L 5-15 [facility] BUN/creatinine ratioOrdered By: Michael Meeks on 12-17-2024 Urea nitrogen/Creatinine [Mass ratio] 25.8 mg/mg High 10-20 [facility] Bilirubin directOrdered By: Michael Meeks on 12-17-2024 Bilirubin.direct [Mass/Vol] 0.17 mg/dL 0.00-0.30 [facility] Bilirubin, totalOrdered By: Michael Meeks on 12-17-2024 Bilirubin [Mass/Vol] 0.47 mg/dL 0.00-1.30 [facility] Carbon dioxide, total [Moles /volume] in Central venous bloodOrdered By: Michael Meeks on 12-17-2024 CO2 [Moles/Vol] 26.5 mmol/L 21.0-32.0 [facility] Chloride assayOrdered By: Yfn Meeks on 12-17-2024 Chloride [Moles/Vol] 105 mmol/L 98-108 [facility] Glomerular filtration rate ( GFR) estimation/1.73 sq m using serum, plasma, or whole bOrdered By: Michael Meeks on 12-17-2024 GFR/1.73 sq M.predicted among non-blacks MDRD (S/P/Bld) [Vol rate/Area] 53 mL/min/{1.73_m2} Low >60 [facility] Comment on above: mL/min/1.73m2 CKD-EP I Creatinine Equation (2020) Laboratory - Chemistry and C hemistry - challengeOrdered By: Michael Meeks on 12-17-2024 AST [Catalytic activity/Vol] 28 U/L <38 [facility] No Panel InformationOrdered By: Michael Meeks on 12-17-2024 28 U/L <38 [facility] Potassium measurement (mass/ volume)Ordered By: Michael Meeks on 12-17-2024 Potassium (Unsp spec) [Mass/Vol] 4.5 mmol/L 3.3-5.1 [facility] Serum creatinine measurement (mass/volume)Ordered By: Michael Meeks on 12-17-2024 Creatinine [Mass/Vol] 1.30 mg/dL High 0.70-1.20 [facility] Serum globulin measurementOr dered By: Michael Meeks on 12-17-2024 Globulin (S) [Mass/Vol] 2.7 g/dL 2.2-4.2 [facility] Serum glucose measurement (m ass/volume)Ordered By: Michael Meeks on 12-17-2024 Glucose [Mass/Vol] 98 mg/dL 70-99 [facility] Serum or plasma alanine meraz otransferase (ALT) measurementOrdered By: Michael Meeks on 12-17-2024 ALT [Catalytic activity/Vol] 18 U/L <47 [facility] Serum or plasma albumin ana urement (mass/volume)Ordered By: Michael Meeks on 12-17-2024 Albumin [Mass/Vol] 4.3 g/dL 3.4-4.8 [facility] Serum or plasma albumin/glob ulin mass ratioOrdered By: Michael Meeks on 12-17-2024 Albumin/Globulin [Mass ratio] 1.6 {ratio} 0.9-2.4 [facility] Serum or plasma alkaline keenan sphatase measurementOrdered By: Michael Meeks on 12-17-2024 ALP [Catalytic activity/Vol] 107 U/L 40-129 [facility] Serum or plasma calcium ana urement (mass/volume)Ordered By: Michael Meeks on 12-17-2024 Calcium [Mass/Vol] 9.8 mg/dL 7.6-11.0 [facility] Serum or plasma urea nitroge n measurement (mass/volume)Ordered By: Michael Meeks on 12-17-2024 Urea nitrogen [Mass/Vol] 34 mg/dL High 4-19 [facility] Sodium levelOrdered By: Ruslan Meeks on 12-17-2024 Sodium [Moles/Vol] 141 mmol/L 133-145 [facility] T4 freeOrdered By: Michael sanchez on 12-17-2024 Free T4 [Mass/Vol] 1.30 ng/dL 0.76-1.46 [facility] TSH DL <= 0.005 mIU/L QnOrde red By: Michael Meeks on 12-17-2024 TSH Qn 2.390 uIU/mL 0.300-4.200 [facility] Total proteinOrdered By: Amrik Meeks on 12-17-2024 Protein [Mass/Vol] 7.0 g/dL 5.9-8.4 [facility] Anion gap in Serum or Plasma Ordered By: Michael Meeks on 12-16-2024 Anion gap [Moles/Vol] 12 mmol/L 5-15 [facility] BUN/creatinine ratioOrdered By: Michael Meeks on 12-16-2024 Urea nitrogen/Creatinine [Mass ratio] 23.5 mg/mg High 10-20 [facility] Bilirubin, totalOrdered By: Michael Meeks on 12-16-2024 Bilirubin [Mass/Vol] 0.67 mg/dL 0.00-1.30 [facility] Carbon dioxide, total [Moles /volume] in Central venous bloodOrdered By: Michael Meeks on 12-16-2024 CO2 [Moles/Vol] 21.8 mmol/L 21.0-32.0 [facility] Chloride assayOrdered By: Yfn eMeks on 12-16-2024 Chloride [Moles/Vol] 105 mmol/L 98-108 [facility] Glomerular filtration rate ( GFR) estimation/1.73 sq m using serum, plasma, or whole bOrdered By: Michael Meeks on 12-16-2024 GFR/1.73 sq M.predicted among non-blacks MDRD (S/P/Bld) [Vol rate/Area] 55 mL/min/{1.73_m2} Low >60 [facility] Comment on above: mL/min/1.73m2 CKD-EP I Creatinine Equation (2020) Laboratory - Chemistry and C hemistry - challengeOrdered By: Michael Meeks on 12-16-2024 AST [Catalytic activity/Vol] 23 U/L <38 [facility] No Panel InformationOrdered By: Michael Meeks on 12-16-2024 23 U/L <38 [facility] Potassium measurement (mass/ volume)Ordered By: Michael Meeks on 12-16-2024 Potassium (Unsp spec) [Mass/Vol] 4.6 mmol/L 3.3-5.1 [facility] Serum creatinine measurement (mass/volume)Ordered By: Michael Meeks on 12-16-2024 Creatinine [Mass/Vol] 1.25 mg/dL High 0.70-1.20 [facility] Serum globulin measurementOr dered By: Michael Meeks on 12-16-2024 Globulin (S) [Mass/Vol] 2.6 g/dL 2.2-4.2 [facility] Serum glucose measurement (m ass/volume)Ordered By: Michael Meeks on 12-16-2024 Glucose [Mass/Vol] 124 mg/dL High 70-99 [facility] Serum or plasma alanine meraz otransferase (ALT) measurementOrdered By: Michael Meeks on 12-16-2024 ALT [Catalytic activity/Vol] 12 U/L <47 [facility] Serum or plasma albumin ana urement (mass/volume)Ordered By: Michael Meeks on 12-16-2024 Albumin [Mass/Vol] 4.3 g/dL 3.4-4.8 [facility] Serum or plasma albumin/glob ulin mass ratioOrdered By: Michael Meeks on 12-16-2024 Albumin/Globulin [Mass ratio] 1.6 {ratio} 0.9-2.4 [facility] Serum or plasma alkaline keenan sphatase measurementOrdered By: Michael Meeks on 12-16-2024 ALP [Catalytic activity/Vol] 99 U/L 40-129 [facility] Serum or plasma calcium ana urement (mass/volume)Ordered By: Michael Meeks on 12-16-2024 Calcium [Mass/Vol] 9.7 mg/dL 7.6-11.0 [facility] Serum or plasma urea nitroge n measurement (mass/volume)Ordered By: Michael Meeks on 12-16-2024 Urea nitrogen [Mass/Vol] 29 mg/dL High 4-19 [facility] Sodium levelOrdered By: Ruslan Meeks on 12-16-2024 Sodium [Moles/Vol] 138 mmol/L 133-145 [facility] TSH DL <= 0.005 mIU/L QnOrde red By: Michael Meeks on 12-16-2024 TSH Qn 2.130 uIU/mL 0.300-4.200 [facility] ThyroxineOrdered By: Michael mccallum on 12-16-2024 T4 [Mass/Vol] 6.8 ug/dL 4.5-12.1 [facility] Total proteinOrdered By: Amrik Meeks on 12-16-2024 Protein [Mass/Vol] 6.9 g/dL 5.9-8.4 [facility] Bilirubin directOrdered By: Michael Meeks on 11-26-2024 Bilirubin.direct [Mass/Vol] 0.24 mg/dL 0.00-0.30 [facility] Bilirubin, totalOrdered By: Michael Meeks on 11-26-2024 Bilirubin [Mass/Vol] 0.67 mg/dL 0.00-1.30 [facility] Laboratory - Chemistry and C hemistry - challengeOrdered By: Michael Meeks on 11-26-2024 AST [Catalytic activity/Vol] 21 U/L <38 [facility] No Panel InformationOrdered By: Michael Meeks on 11-26-2024 21 U/L <38 [facility] Serum globulin measurementOr dered By: Michael Meeks on 11-26-2024 Globulin (S) [Mass/Vol] 3.0 g/dL 2.2-4.2 [facility] Serum or plasma alanine meraz otransferase (ALT) measurementOrdered By: Michael Meeks on 11-26-2024 ALT [Catalytic activity/Vol] 11 U/L <47 [facility] Serum or plasma albumin ana urement (mass/volume)Ordered By: Michael Meeks on 11-26-2024 Albumin [Mass/Vol] 4.3 g/dL 3.4-4.8 [facility] Serum or plasma alkaline keenan sphatase measurementOrdered By: Michael Meeks on 11-26-2024 ALP [Catalytic activity/Vol] 104 U/L 40-129 [facility] Total proteinOrdered By: Amrik Meeks on 11-26-2024 Protein [Mass/Vol] 7.2 g/dL 5.9-8.4 [facility] Anion gap in Serum or Plasma Ordered By: Michael Meeks on 11-24-2024 Anion gap [Moles/Vol] 10 mmol/L 5-15 [facility] BUN/creatinine ratioOrdered By: Michael Meeks on 11-24-2024 Urea nitrogen/Creatinine [Mass ratio] 20.8 mg/mg High 10-20 [facility] Carbon dioxide, total [Moles /volume] in Central venous bloodOrdered By: Michael Meeks on 11-24-2024 CO2 [Moles/Vol] 23.8 mmol/L 21.0-32.0 [facility] Chloride assayOrdered By: Yfn Meeks on 11-24-2024 Chloride [Moles/Vol] 102 mmol/L 98-108 [facility] Glomerular filtration rate ( GFR) estimation/1.73 sq m using serum, plasma, or whole bOrdered By: Michael Meeks on 11-24-2024 GFR/1.73 sq M.predicted among non-blacks MDRD (S/P/Bld) [Vol rate/Area] 46 mL/min/{1.73_m2} Low >60 [facility] Comment on above: mL/min/1.73m2 CKD-EP I Creatinine Equation (2020) Potassium measurement (mass/ volume)Ordered By: Michael Meeks on 11-24-2024 Potassium (Unsp spec) [Mass/Vol] 4.9 mmol/L 3.3-5.1 [facility] Serum creatinine measurement (mass/volume)Ordered By: Michael Meeks on 11-24-2024 Creatinine [Mass/Vol] 1.47 mg/dL High 0.70-1.20 [facility] Serum glucose measurement (m ass/volume)Ordered By: Michael Meeks on 11-24-2024 Glucose [Mass/Vol] 142 mg/dL High 70-99 [facility] Serum or plasma calcium ana urement (mass/volume)Ordered By: Michael Meeks on 11-24-2024 Calcium [Mass/Vol] 9.8 mg/dL 7.6-11.0 [facility] Serum or plasma urea nitroge n measurement (mass/volume)Ordered By: Michael Meeks on 11-24-2024 Urea nitrogen [Mass/Vol] 31 mg/dL High 4-19 [facility] Sodium levelOrdered By: Ruslan Meeks on 11-24-2024 Sodium [Moles/Vol] 136 mmol/L 133-145 [facility] T4 freeOrdered By: Michael sanchez on 11-05-2024 Free T4 [Mass/Vol] 0.90 ng/dL 0.76-1.46 [facility] TSH DL <= 0.005 mIU/L QnOrde red By: Michael Meeks on 11-05-2024 Thyroid Stimulating Hormone (TSH) 6.920 uIU/mL High 0.300-4.200 [facility] TSH Qn 6.920 uIU/mL High 0.300-4.200 [facility] Anion gap in Serum or Plasma Ordered By: Michael Meeks on 10-27-2024 Anion gap [Moles/Vol] 10 mmol/L 5-15 [facility] BUN/creatinine ratioOrdered By: Michael Meeks on 10-27-2024 Urea nitrogen/Creatinine [Mass ratio] 17.0 mg/mg 10-20 [facility] Carbon dioxide, total [Moles /volume] in Central venous bloodOrdered By: Michael Meeks on 10-27-2024 CO2 [Moles/Vol] 23.9 mmol/L 21.0-32.0 [facility] Chloride assayOrdered By: Yfn Meeks on 10-27-2024 Chloride [Moles/Vol] 106 mmol/L 98-108 [facility] GFR/1.73 sq M.predicted mehran g non-blacks MDRD (S/P/Bld) [Vol rate/Area]Ordered By: Michael Meeks on 10-27-2024 Estimated GFR (MDRD) Non-Af Amer 54 Low >60 [facility] Comment on above: mL/min/1.73m2 CKD-EP I Creatinine Equation (2020) Glomerular filtration rate ( GFR) estimation/1.73 sq m using serum, plasma, or whole bOrdered By: Michael Meeks on 10-27-2024 GFR/1.73 sq M.predicted among non-blacks MDRD (S/P/Bld) [Vol rate/Area] 54 mL/min/{1.73_m2} Low >60 [facility] Comment on above: mL/min/1.73m2 CKD-EP I Creatinine Equation (2020) Potassium (Unsp spec) [Mass/ Vol]Ordered By: Michael Meeks on 10-27-2024 Potassium [Moles/Vol] 4.6 mmol/L 3.3-5.1 [facility] Potassium measurement (mass/ volume)Ordered By: Michael Meeks on 10-27-2024 Potassium (Unsp spec) [Mass/Vol] 4.6 mmol/L 3.3-5.1 [facility] Serum creatinine measurement (mass/volume)Ordered By: Michael Meeks on 10-27-2024 Creatinine [Mass/Vol] 1.28 mg/dL High 0.70-1.20 [facility] Serum glucose measurement (m ass/volume)Ordered By: Michael Meeks on 10-27-2024 Glucose [Mass/Vol] 161 mg/dL High 70-99 [facility] Serum or plasma calcium ana urement (mass/volume)Ordered By: Michael Meeks on 10-27-2024 Calcium [Mass/Vol] 9.3 mg/dL 7.6-11.0 [facility] Serum or plasma urea nitroge n measurement (mass/volume)Ordered By: Michael Meeks on 10-27-2024 Urea nitrogen [Mass/Vol] 22 mg/dL High 4-19 [facility] Sodium levelOrdered By: Ruslan Meeks on 10-27-2024 Sodium [Moles/Vol] 140 mmol/L 133-145 [facility] Wound Ctr History AND Physic joe 10-09-2024 Wound Ctr History & Physical Normal [facility] T4 freeOrdered By: Michael sanchez on 09-24-2024 Free T4 [Mass/Vol] 1.30 ng/dL 0.76-1.46 [facility] L499.0042on 09-23-2024 Trop T High Sen 77 ng/L Invalid Interpretation Code <=22 [facility] Comment on above: Result Comment: DIS BOY AMENDED REPORT 09/23/242 Trop T HS 2HR previously reported as: 77 *H ng/L Performed By: #### L 499.0042 ####[facility] [address] [place], [place], [id number] L499.0043on 09-23-2024 Trop T High Sen 69 ng/L Invalid Interpretation Code <=22 [facility] Comment on above: Result Comment: DIS BOY AMENDED REPORT 09/23/242 Trop T HS 4HR previously reported as: 69 *H ng/L Performed By: #### L 499.0043 ####[facility] [address] [place], [place], [id number] Calculated very low density lipoprotein (VLDL) cholesterol measurementOrdered By: Michael Meeks on 09-22-2024 Calculated very low density lipoprotein (VLDL) cholesterol measurement 26 mg/dL 5-40 [facility] VLDL Cholesterol 26 mg/dL 5-40 [facility] Hemoglobin A1c percentageOrd ered By: Michael Meeks on 09-22-2024 HbA1c (Bld) [Mass fraction] 6.1 % >5.7 [facility] LDL calc ser/plasOrdered By: Michael Meeks on 09-22-2024 Cholesterol in LDL [Mass/Vol] 144 mg/dL [facility] Comment on above: Vjcpmhrgta=866-674 m g/dL & Higher Nkzi=922 mg/dL or greater LDL Cholesterol, Calculated 144 mg/dL [facility] Comment on above: Xlifdkljdo=446-177 m g/dL & Higher Nscb=010 mg/dL or greater Screening total cholesterol/ high density lipoprotein (HDL) cholesterol ratioOrdered By: Michael Meeks on 09-22-2024 Cholesterol.total/Cholest devorah in HDL [Mass ratio] 3.38 {ratio} [facility] Serum or plasma cholesterol in HDL measurement (mass/volume)Ordered By: Michael Meeks on 09-22-2024 Cholesterol in HDL [Mass/Vol] 72 mg/dL >40 [facility] Comment on above: National Cholesterol Education Program (NCEP) guidelines:<40 mg/dL: Low HDL-cholesterol (major risk factor for CHD)>= 60 mg/dL: High HDL-cholesterol (negative risk factor for CHD)HDL-cholesterol is affected by a number of factors, e.g. smoking, exercise, hormones, sex and age. Serum or plasma cholesterol measurement (mass/volume)Ordered By: Michael Meeks on 09-22-2024 Cholesterol [Mass/Vol] 242 mg/dL High <201 [facility] Comment on above: Cholesterol level, D esirable <200 mg/dLBorderline high cholesterol 200-239 mg/dLHigh cholesterol >=240 mg/dLRecommendations of the NCEP Adult Treatment Panel for the following risk-cutoff thresholds for the [place] population. TSH DL <= 0.005 mIU/L QnOrde red By: Michael Meeks on 09-22-2024 Thyroid Stimulating Hormone (TSH) 4.900 uIU/mL High 0.300-4.200 [facility] TSH Qn 4.900 uIU/mL High 0.300-4.200 [facility] Triglycerides measurementOrd ered By: Michael Meeks on 09-22-2024 Triglyceride [Mass/Vol] 131 mg/dL <199 [facility] Comment on above: The drugs N-Acetylcy steine and Metamizole may falsely depress this assay. Normal range: <150 mg/dLBorderline High: 150-199 mg/dLHigh: 200-499 mg/dLVery High: >500 mg/dL Discharge Instructionon 08-24 Discharge Instruction Normal [facility] Phosphoruson 09-18-2024 Phosphate [Mass/Vol] 2.7 mg/dL Normal 2.7-4.5 [facility] Comment on above: Performed By: #### L 501.2300 ####[facility] [address] [place], [address] Serum phosphorus measurement Ordered By: Altaf Mayfield on 09-18-2024 Phosphorus Level 2.7 mg/dL 2.7-4.5 [facility] 12 Lead EKGon 09-17-2024 12 Lead EKG Normal [facility] Absolute lymphocyte countOrd ered By: Altaf Mayfield on 09-17-2024 Lymphocytes Auto (Unsp spec) [#/Vol] 0.66 10*3/uL Low 0.83-4.51 [facility] Absolute neutrophil countOrd ered By: Altaf Mayfield on 09-17-2024 Neutrophils (Bld) [#/Vol] 2.3 10*3/uL 2.0-7.7 [facility] Automated lymphocyte count a s percentage of total leukocytesOrdered By: Altaf Mayfield on 09-17-2024 Lymphocytes/100 WBC Auto (Unsp spec) 18.4 % Low 19-41 [facility] BUN/creatinine ratioOrdered By: Altaf Mayfield on 09-17-2024 Urea nitrogen/Creatinine [Mass ratio] 11.6 mg/mg 10-20 [facility] Basophil percentageOrdered B y: Altaf Mayfield on 09-17-2024 Basophils/100 WBC (Bld) 1.4 % High 0-1 [facility] Bilirubin, totalOrdered By: Altaf Mayfield on 09-17-2024 Bilirubin [Mass/Vol] 0.66 mg/dL 0.00-1.30 [facility] CBC W/Diff, Automatedon 08-24 Absolute Lymph 0.66 X10 3/uL Low 0.83-4.51 [facility] Comment on above: Performed By: #### L 100.0100, L500.4100, L501.2300, L500.4050 ####[facility] [address] [place], [address] Absolute Neut 2.3 X10 3/uL Normal 2.0-7.7 [facility] Comment on above: Performed By: #### L 100.0100, L500.4100, L501.2300, L500.4050 ####[facility] [address] [place], [address] Basophils/100 WBC (Bld) 1.4 % High 0-1 [facility] Comment on above: Performed By: #### L 100.0100, L500.4100, L501.2300, L500.4050 ####[facility] [address] [place], [address] Eosinophils/100 WBC (Bld) 3.1 % Normal 0-5 [facility] Comment on above: Performed By: #### L 100.0100, L500.4100, L501.2300, L500.4050 ####[facility] [address] [place], [address] Erythrocyte distribution width (RBC) [Ratio] 13.4 % Normal 11.6-14.6 [facility] Comment on above: Performed By: #### L 100.0100, L500.4100, L501.2300, L500.4050 ####[facility] [address] [place], [address] Hematocrit (Bld) [Volume fraction] 43.4 % Normal 40-54 [facility] Comment on above: Performed By: #### L 100.0100, L500.4100, L501.2300, L500.4050 ####[facility] [address] [place], [address] Hemoglobin (Bld) [Mass/Vol] 14.3 g/dL Normal 13.0-16.5 [facility] Comment on above: Performed By: #### L 100.0100, L500.4100, L501.2300, L500.4050 ####[facility] [address] [place], [address] IG% 0.800 Normal 0.0-0.9 [facility] Comment on above: Result Comment: IG% - Immature Granulocytes (promyelocytes, myelocytes andmetamyelocytes) > 1% indicates that a LEFT SHIFT is Present. Performed By: #### L 100.0100, L500.4100, L501.2300, L500.4050 ####[facility] [address] [place], [address] Lymphocytes/100 WBC (Bld) 18.4 % Low 19-41 [facility] Comment on above: Performed By: #### L 100.0100, L500.4100, L501.2300, L500.4050 ####[facility] [address] [place], [address] MCH (RBC) [Entitic mass] 30.9 pg Normal 27.0-32.0 [facility] Comment on above: Performed By: #### L 100.0100, L500.4100, L501.2300, L500.4050 ####[facility] [address] [place], [address] MCHC (RBC) [Mass/Vol] 32.9 g/dL Normal 32-36 [facility] Comment on above: Performed By: #### L 100.0100, L500.4100, L501.2300, L500.4050 ####[facility] [address] [place], [address] MCV (RBC) [Entitic vol] 93.7 fL Normal 80-94 [facility] Comment on above: Performed By: #### L 100.0100, L500.4100, L501.2300, L500.4050 ####[facility] [address] [place], [address] Monocytes/100 WBC (Bld) 12.3 % High 0-10 [facility] Comment on above: Performed By: #### L 100.0100, L500.4100, L501.2300, L500.4050 ####[facility] [address] [place], [address] Neutrophils/100 WBC (Bld) 64.0 % Normal 47-70 [facility] Comment on above: Performed By: #### L 100.0100, L500.4100, L501.2300, L500.4050 ####[facility] [address] [place], [address] Nucleated RBC (Bld) [#/Vol] 0 10*3/uL Normal 0-5 [facility] Comment on above: Performed By: #### L 100.0100, L500.4100, L501.2300, L500.4050 ####[facility] [address] [place], [address] Platelet mean volume (Bld) [Entitic vol] 10.3 fL Normal 6.2-12.0 [facility] Comment on above: Performed By: #### L 100.0100, L500.4100, L501.2300, L500.4050 ####[facility] [address] [place], [address] Platelets (Bld) [#/Vol] 140 10*3/uL Low 150-450 [facility] Comment on above: Performed By: #### L 100.0100, L500.4100, L501.2300, L500.4050 ####[facility] [address] [place], [address] RBC (Bld) [#/Vol] 4.63 10*6/uL Normal 4.6-6.2 [facility] Comment on above: Performed By: #### L 100.0100, L500.4100, L501.2300, L500.4050 ####[facility] [address] [place], [address] RDW SD 45.7 fl High 35.1-43.9 [facility] Comment on above: Performed By: #### L 100.0100, L500.4100, L501.2300, L500.4050 ####[facility] [address] [place], [address] WBC (Bld) [#/Vol] 3.6 10*3/uL Low 4.4-11.0 [facility] Comment on above: Performed By: #### L 100.0100, L500.4100, L501.2300, L500.4050 ####[facility] [address] [place], [address] Calculated very low density lipoprotein (VLDL) cholesterol measurementOrdered By: Altaf Mayfield on 09-17-2024 Calculated very low density lipoprotein (VLDL) cholesterol measurement 15 mg/dL 5-40 [facility] VLDL Cholesterol 15 mg/dL 5-40 [facility] Carbon dioxide measurementOr dered By: Altaf Mayfield on 09-17-2024 CO2 [Moles/Vol] 24.2 mmol/L 22.0-29.0 [facility] Chloride measurementOrdered By: Altaf Mayfield on 09-17-2024 Chloride [Moles/Vol] 102 mmol/L 96-108 [facility] Comprehensive Metabolic Prof ilon 09-17-2024 Albumin [Mass/Vol] 3.7 g/dL Normal 3.4-4.8 [facility] Comment on above: Performed By: #### L 100.0100, L500.4100, L501.2300, L500.4050 ####[facility] [address] [place], [address] Albumin/Globulin [Mass ratio] 1.5 {ratio} Normal 0.9-2.4 [facility] Comment on above: Performed By: #### L 100.0100, L500.4100, L501.2300, L500.4050 ####[facility] [address] [place], [address] ALK PHOS 95 U/L Normal 40-129 [facility] Comment on above: Performed By: #### L 100.0100, L500.4100, L501.2300, L500.4050 ####[facility] [address] [place], [address] ALT [Catalytic activity/Vol] 11 U/L Normal <=46 [facility] Comment on above: Performed By: #### L 100.0100, L500.4100, L501.2300, L500.4050 ####[facility] [address] [place], [address] Anion gap [Moles/Vol] 12 mmol/L Normal 5-15 [facility] Comment on above: Performed By: #### L 100.0100, L500.4100, L501.2300, L500.4050 ####[facility] [address] [place], [address] AST [Catalytic activity/Vol] 25 U/L Normal <=37 [facility] Comment on above: Performed By: #### L 100.0100, L500.4100, L501.2300, L500.4050 ####[facility] [address] [place], [address] Bilirubin [Mass/Vol] 0.66 mg/dL Normal 0.00-1.30 [facility] Comment on above: Performed By: #### L 100.0100, L500.4100, L501.2300, L500.4050 ####[facility] [address] [place], [address] BUN/CRE 11.6 RATIO Normal 10-20 [facility] Comment on above: Performed By: #### L 100.0100, L500.4100, L501.2300, L500.4050 ####[facility] [address] [place], [address] Calcium [Mass/Vol] 9.5 mg/dL Normal 7.6-11.0 [facility] Comment on above: Performed By: #### L 100.0100, L500.4100, L501.2300, L500.4050 ####[facility] [address] [place], [address] Chloride [Moles/Vol] 102 mmol/L Normal 96-108 [facility] Comment on above: Performed By: #### L 100.0100, L500.4100, L501.2300, L500.4050 ####[facility] [address] [place], [address] CO2 [Moles/Vol] 24.2 mmol/L Normal 22.0-29.0 [facility] Comment on above: Performed By: #### L 100.0100, L500.4100, L501.2300, L500.4050 ####[facility] [address] [place], [address] Creatinine [Mass/Vol] 1.3 mg/dL Normal 0.8-1.3 [facility] Comment on above: Performed By: #### L 100.0100, L500.4100, L501.2300, L500.4050 ####[facility] [address] [place], [address] ECRCL 47.85 ml/min Normal [facility] Comment on above: Performed By: #### L 100.0100, L500.4100, L501.2300, L500.4050 ####[facility] [address] [place], [address] GFR/1.73 sq M.predicted among non-blacks MDRD (S/P/Bld) [Vol rate/Area] 54 mL/min/{1.73_m2} Low >60 [facility] Comment on above: Result Comment: mL/m in/1.73m2 CKD-EPI Creatinine Equation (2020) Performed By: #### L 100.0100, L500.4100, L501.2300, L500.4050 ####[facility] [address] [place], [address] Globulin (S) [Mass/Vol] 2.4 g/dL Normal 2.2-4.2 [facility] Comment on above: Performed By: #### L 100.0100, L500.4100, L501.2300, L500.4050 ####[facility] [address] [place], [address] Glucose [Mass/Vol] 93 mg/dL Normal 70-99 [facility] Comment on above: Performed By: #### L 100.0100, L500.4100, L501.2300, L500.4050 ####[facility] [address] [place], [address] Potassium [Moles/Vol] 4.1 mmol/L Normal 3.3-5.1 [facility] Comment on above: Performed By: #### L 100.0100, L500.4100, L501.2300, L500.4050 ####[facility] [address] [place], [address] Sodium [Moles/Vol] 138 mmol/L Normal 133-145 [facility] Comment on above: Performed By: #### L 100.0100, L500.4100, L501.2300, L500.4050 ####[facility] [address] [place], [address] T PROT 6.1 g/dL Normal 5.9-8.4 [facility] Comment on above: Performed By: #### L 100.0100, L500.4100, L501.2300, L500.4050 ####[facility] [address] [place], [address] Urea nitrogen [Mass/Vol] 15 mg/dL Normal 4-19 [facility] Comment on above: Performed By: #### L 100.0100, L500.4100, L501.2300, L500.4050 ####[facility] [address] [place], [address] Albumin [Mass/Vol] 4.3 g/dL Normal 3.4-4.8 [facility] Comment on above: Performed By: #### L 501.9520, L500.4050, L100.0100, L506.0400 ####[facility] [address] [place], [address] Albumin/Globulin [Mass ratio] 1.4 {ratio} Normal 0.9-2.4 [facility] Comment on above: Performed By: #### L 501.9520, L500.4050, L100.0100, L506.0400 ####[facility] [address] [place], [address] ALK PHOS 113 U/L Normal 40-129 [facility] Comment on above: Performed By: #### L 501.9520, L500.4050, L100.0100, L506.0400 ####[facility] [address] [place], [address] ALT [Catalytic activity/Vol] 15 U/L Normal <=46 [facility] Comment on above: Performed By: #### L 501.9520, L500.4050, L100.0100, L506.0400 ####[facility] [address] [place], [address] Anion gap [Moles/Vol] 15 mmol/L Normal 5-15 [facility] Comment on above: Performed By: #### L 501.9520, L500.4050, L100.0100, L506.0400 ####[facility] [address] [place], [address] AST [Catalytic activity/Vol] 31 U/L Normal <=37 [facility] Comment on above: Performed By: #### L 501.9520, L500.4050, L100.0100, L506.0400 ####[facility] [address] [place], [address] Bilirubin [Mass/Vol] 0.79 mg/dL Normal 0.00-1.30 [facility] Comment on above: Performed By: #### L 501.9520, L500.4050, L100.0100, L506.0400 ####[facility] [address] [place], [address] BUN/CRE 10.9 RATIO Normal 10-20 [facility] Comment on above: Performed By: #### L 501.9520, L500.4050, L100.0100, L506.0400 ####[facility] [address] [place], [address] Calcium [Mass/Vol] 10.3 mg/dL Normal 7.6-11.0 [facility] Comment on above: Performed By: #### L 501.9520, L500.4050, L100.0100, L506.0400 ####[facility] [address] [place], [address] Chloride [Moles/Vol] 97 mmol/L Normal 96-108 [facility] Comment on above: Performed By: #### L 501.9520, L500.4050, L100.0100, L506.0400 ####[facility] [address] [place], [address] CO2 [Moles/Vol] 24.0 mmol/L Normal 22.0-29.0 [facility] Comment on above: Performed By: #### L 501.9520, L500.4050, L100.0100, L506.0400 ####[facility] [address] [place], [address] Creatinine [Mass/Vol] 1.4 mg/dL High 0.8-1.3 [facility] Comment on above: Performed By: #### L 501.9520, L500.4050, L100.0100, L506.0400 ####[facility] [address] [place], [address] GFR/1.73 sq M.predicted among non-blacks MDRD (S/P/Bld) [Vol rate/Area] 48 mL/min/{1.73_m2} Low >60 [facility] Comment on above: Result Comment: mL/m in/1.73m2 CKD-EPI Creatinine Equation (2020) Performed By: #### L 501.9520, L500.4050, L100.0100, L506.0400 ####[facility] [address] [place], [address] Globulin (S) [Mass/Vol] 3.2 g/dL Normal 2.2-4.2 [facility] Comment on above: Performed By: #### L 501.9520, L500.4050, L100.0100, L506.0400 ####[facility] [address] [place], [address] Glucose [Mass/Vol] 124 mg/dL High 70-99 [facility] Comment on above: Performed By: #### L 501.9520, L500.4050, L100.0100, L506.0400 ####[facility] [address] [place], [address] Potassium [Moles/Vol] 4.4 mmol/L Normal 3.3-5.1 [facility] Comment on above: Performed By: #### L 501.9520, L500.4050, L100.0100, L506.0400 ####[facility] [address] [place], [address] Sodium [Moles/Vol] 136 mmol/L Normal 133-145 [facility] Comment on above: Performed By: #### L 501.9520, L500.4050, L100.0100, L506.0400 ####[facility] [address] [place], [address] T PROT 7.5 g/dL Normal 5.9-8.4 [facility] Comment on above: Performed By: #### L 501.9520, L500.4050, L100.0100, L506.0400 ####[facility] [address] [place], [address] Urea nitrogen [Mass/Vol] 16 mg/dL Normal 4-19 [facility] Comment on above: Performed By: #### L 501.9520, L500.4050, L100.0100, L506.0400 ####[facility] [address] [place], [address] Echo Completeon 09-17-2024 Echo Complete Normal [facility] Eosinophil percentageOrdered By: Altaf Mayfield on 09-17-2024 Eosinophils/100 WBC (Bld) 3.1 % 0-5 [facility] Erythrocyte distribution wid th ratioOrdered By: Altaf Mayfield on 09-17-2024 Erythrocyte distribution width (RBC) [Ratio] 13.4 % 11.6-14.6 [facility] Erythrocyte distribution wid th standard deviationOrdered By: Altaf Mayfield on 09-17-2024 Erythrocyte distribution width (RBC) [Entitic vol] 45.7 fL High 35.1-43.9 [facility] Erythrocyte distribution width (RBC) [Ratio] 45.7 fl High 35.1-43.9 [facility] Estimation of creatinine ijeoma aranceOrdered By: Altaf Mayfield on 09-17-2024 Estimated Creatinine Clearance Calc 47.85 ml/min 50-250 [facility] Folates, (Folic Acid)on 08-24 FOLATES 8.53 ng/mL Normal 4.60-34.80 [facility] Comment on above: Order Comment: Has P atient had X-rays with Contrast this admission? NN Performed By: #### L 501.5200, L501.9520, L506.0250, L505.5000, L501.9985, L501.4021 ####[facility] [address] [place], [place], [address] GFR/1.73 sq M.predicted mehran g non-blacks MDRD (S/P/Bld) [Vol rate/Area]Ordered By: Altaf Mayfield on 09-17-2024 Estimated GFR (MDRD) Non-Af Amer 54 Low >60 [facility] Comment on above: mL/min/1.73m2 CKD-EP I Creatinine Equation (2020) Glomerular filtration rate ( GFR) estimation/1.73 sq m using serum, plasma, or whole bOrdered By: Altaf Mayfield on 09-17-2024 GFR/1.73 sq M.predicted among non-blacks MDRD (S/P/Bld) [Vol rate/Area] 54 mL/min/{1.73_m2} Low >60 [facility] Comment on above: mL/min/1.73m2 CKD-EP I Creatinine Equation (2020) Hematocrit Auto (Bld) [Volum e fraction]Ordered By: Altaf Mayfield on 09-17-2024 Hematocrit (Bld) [Volume fraction] 43.4 % 40-54 [facility] Hemoglobin A1con 09-17-2024 HbA1c (Bld) [Mass fraction] 6.1 % Normal <=5.6 [facility] Comment on above: Performed By: #### L 501.5200, L501.9520, L506.0250, L505.5000, L501.9985, L501.4021 ####[facility] [address] [place], [place], [id number] Hemoglobin measurementOrdere d By: Altaf Mayfield on 09-17-2024 Hemoglobin (Bld) [Mass/Vol] 14.3 g/dL 13.0-16.5 [facility] Immature granulocytes/100 WB C Auto (Bld)Ordered By: Altaf Mayfield on 09-17-2024 Immature granulocytes/100 WBC (Bld) 0.800 % 0.0-0.9 [facility] Comment on above: IG% - Immature Granu locytes (promyelocytes, myelocytes and metamyelocytes) > 1% indicates that a LEFT SHIFT is Present. L501.4021on 09-17-2024 Trop T High Sen 76 ng/L Invalid Interpretation Code <=22 [facility] Comment on above: Order Comment: Has P atrito had X-rays with Contrast this admission? N Result Comment: Crit ical Result(s) Called at: by:??Results read back bysame.CALLED TO Ramandeep TOMLIN AT 0055 Performed By: #### L 501.5200, L501.9520, L506.0250, L505.5000, L501.9985, L501.4021 ####[facility] [address] [place], [place], [id number] LDL calc ser/plasOrdered By: Altaf Mayfield on 09-17-2024 Cholesterol in LDL [Mass/Vol] 134 mg/dL [facility] Comment on above: Xoanpryrmx=083-552 m g/dL & Higher Szrz=753 mg/dL or greater LDL Cholesterol, Calculated 134 mg/dL [facility] Comment on above: Eklucmykie=295-470 m g/dL & Higher Zcwp=190 mg/dL or greater Laboratory - Chemistry and C hemistry - challengeOrdered By: Altaf Mayfield on 09-17-2024 AST [Catalytic activity/Vol] 25 U/L <38 [facility] Lipid Profileon 09-17-2024 CHOL:HDL 3.24 Normal [facility] Comment on above: Performed By: #### L 100.0100, L500.4100, L501.2300, L500.4050 ####[facility] [address] [place], [address] Cholesterol [Mass/Vol] 215 mg/dL High <=200 [facility] Comment on above: Result Comment: Chol esterol level, Desirable <200 mg/dLBorderline high cholesterol 200-239 mg/dLHigh cholesterol >=240 mg/dLRecommendations of the NCEP Adult Treatment Panel for thefollowing risk-cutoff thresholds for the [place] American[place]. Performed By: #### L 100.0100, L500.4100, L501.2300, L500.4050 ####[facility] [address] [place], [address] Cholesterol in HDL [Mass/Vol] 66 mg/dL Normal [facility] Comment on above: Result Comment: Liz onal Cholesterol Education Program (NCEP) guidelines:<40 mg/dL: Low HDL-cholesterol (major risk factor for CHD)>= 60 mg/dL: High HDL-cholesterol (negative risk factor forCHD)HDL-cholesterol is affected by a number of factors, e.g.smoking, exercise, hormones, sex and age. Performed By: #### L 100.0100, L500.4100, L501.2300, L500.4050 ####[facility] [address] [place], [address] Cholesterol in LDL [Mass/Vol] 134 mg/dL Normal [facility] Comment on above: Result Comment: Bord grjqcv=796-898 mg/dL Higher Cyre=363 mg/dL or greater Performed By: #### L 100.0100, L500.4100, L501.2300, L500.4050 ####[facility] [address] [place], [address] Cholesterol in VLDL [Mass/Vol] 15 mg/dL Normal 5-40 [facility] Comment on above: Performed By: #### L 100.0100, L500.4100, L501.2300, L500.4050 ####[facility] [address] [place], [address] Triglyceride [Mass/Vol] 76 mg/dL Normal [facility] Comment on above: Result Comment: The drugs N-Acetylcysteine and Metamizole may falselydepress this assay.Normal range: <150 mg/dLBorderline High: 150-199 mg/dLHigh: 200-499 mg/dLVery High: >500 mg/dL Performed By: #### L 100.0100, L500.4100, L501.2300, L500.4050 ####[facility] [address] [place], [address] Lymphocytes Auto (Unsp spec) [#/Vol]Ordered By: Altaf Mayfield on 09-17-2024 Lymphocytes (Bld) [#/Vol] 0.66 10*3/uL Low 0.83-4.5 1 [facility] Lymphocytes/100 WBC Auto (Un sp spec)Ordered By: Altaf Mayfield on 09-17-2024 Lymphocytes/100 WBC (Bld) 18.4 % Low 19-41 [facility] MCV (mean corpuscular volume ) determinationOrdered By: Altaf Mayfield on 09-17-2024 MCV (RBC) [Entitic vol] 93.7 fL 80-94 [facility] Magnesiumon 09-17-2024 Magnesium [Mass/Vol] 2.2 mg/dL Normal 1.5-2.2 [facility] Comment on above: Order Comment: Has P atient had X-rays with Contrast this admission? N Performed By: #### L 501.5200, L501.9520, L506.0250, L505.5000, L501.9985, L501.4021 ####[facility] [address] [place], [address] Mean corpuscular hemoglobin (MCH) determinationOrdered By: Altaf Mayfield on 09-17-2024 MCH (RBC) [Entitic mass] 30.9 pg 27.0-32.0 [facility] Mean corpuscular hemoglobin concentration (MCHC) determinationOrdered By: Altaf Mayfield on 09-17-2024 MCHC (RBC) [Mass/Vol] 32.9 g/dL 32-36 [facility] Mean platelet volume determi nationOrdered By: Altaf Mayfield on 09-17-2024 Platelet mean volume (Bld) [Entitic vol] 10.3 fL 6.2-12.0 [facility] Monocyte percentageOrdered B y: Altaf Mayfield on 09-17-2024 Monocytes/100 WBC (Bld) 12.3 % High 0-10 [facility] Neutrophil percentageOrdered By: Altaf Mayfield on 09-17-2024 Neutrophils/100 WBC (Bld) 64.0 % 47-70 [facility] No Panel InformationOrdered By: Altaf Mayfield on 09-17-2024 25 U/L <38 [facility] Delta Troponin T 1 [facility] Comment on above: Potential recent MD, CKD,LVH* Consider a third Troponin for Suspected ACSIf clinical suspicion for ACS is high, suggest getting a third troponin. Otherwise, stress test or CTCA. 1 [facility] Nucleated red blood cell per centageOrdered By: Altaf Mayfield on 09-17-2024 Nucleated RBC/100 WBC (Bld) [Ratio] 0 % 0-5 [facility] Phosphoruson 09-17-2024 Phosphate [Mass/Vol] 2.9 mg/dL Normal 2.7-4.5 [facility] Comment on above: Performed By: #### L 100.0100, L500.4100, L501.2300, L500.4050 ####[facility] [address] [place], [address] Platelet countOrdered By: David Mayfield on 09-17-2024 Platelets (Bld) [#/Vol] 140 10*3/uL Low 150-450 [facility] RBC Auto (Bld) [#/Vol]Ordere d By: Altaf Mayfield on 09-17-2024 RBC (Bld) [#/Vol] 4.63 10*6/uL 4.6-6.2 [facility] Screening total cholesterol/ high density lipoprotein (HDL) cholesterol ratioOrdered By: Altaf Mayfield on 09-17-2024 Cholesterol.total/Cholest devorah in HDL [Mass ratio] 3.24 {ratio} [facility] Serum creatinine measurement (mass/volume)Ordered By: Altaf Mayfield on 09-17-2024 Creatinine [Mass/Vol] 1.3 mg/dL 0.70-1.20 [facility] Serum globulin measurementOr dered By: Altaf Mayfield on 09-17-2024 Globulin (S) [Mass/Vol] 2.4 g/dL 2.2-4.2 [facility] Serum glucose measurement (m ass/volume)Ordered By: Altaf Mayfield on 09-17-2024 Glucose [Mass/Vol] 93 mg/dL 70-99 [facility] Serum or plasma alanine meraz otransferase (ALT) measurementOrdered By: Altaf Mayfield on 09-17-2024 ALT [Catalytic activity/Vol] 11 U/L <47 [facility] Serum or plasma albumin ana urement (mass/volume)Ordered By: Altaf Mayfield on 09-17-2024 Albumin [Mass/Vol] 3.7 g/dL 3.4-4.8 [facility] Serum or plasma albumin/glob ulin mass ratioOrdered By: Altaf Mayfield on 09-17-2024 Albumin/Globulin [Mass ratio] 1.5 {ratio} 0.9-2.4 [facility] Serum or plasma alkaline keenan sphatase measurementOrdered By: Altaf Mayfield on 09-17-2024 ALP [Catalytic activity/Vol] 95 U/L 40-129 [facility] Serum or plasma anion gap de termination (moles/volume)Ordered By: Altaf Mayfield on 09-17-2024 Anion gap [Moles/Vol] 12 mmol/L 5-15 [facility] Serum or plasma calcium ana urement (mass/volume)Ordered By: Altaf Mayfield on 09-17-2024 Calcium [Mass/Vol] 9.5 mg/dL 7.6-11.0 [facility] Serum or plasma cholesterol in HDL measurement (mass/volume)Ordered By: Altaf Mayfield on 09-17-2024 Cholesterol in HDL [Mass/Vol] 66 mg/dL >40 [facility] Comment on above: National Cholesterol Education Program (NCEP) guidelines:<40 mg/dL: Low HDL-cholesterol (major risk factor for CHD)>= 60 mg/dL: High HDL-cholesterol (negative risk factor for CHD)HDL-cholesterol is affected by a number of factors, e.g. smoking, exercise, hormones, sex and age. Serum or plasma cholesterol measurement (mass/volume)Ordered By: Altaf Mayfield on 09-17-2024 Cholesterol [Mass/Vol] 215 mg/dL High <201 [facility] Comment on above: Cholesterol level, D esirable <200 mg/dLBorderline high cholesterol 200-239 mg/dLHigh cholesterol >=240 mg/dLRecommendations of the NCEP Adult Treatment Panel for the following risk-cutoff thresholds for the [place] population. Serum or plasma potassium me asurementOrdered By: Altaf Mayfield on 09-17-2024 Potassium [Moles/Vol] 4.1 mmol/L 3.3-5.1 [facility] Serum or plasma sodium measu rement (moles/volume)Ordered By: Altaf Mayfield on 09-17-2024 Sodium [Moles/Vol] 138 mmol/L 133-145 [facility] Serum or plasma urea nitroge n measurement (mass/volume)Ordered By: Altaf Mayfield on 09-17-2024 Urea nitrogen [Mass/Vol] 15 mg/dL 4-19 [facility] T4 Free Directon 09-17-2024 T4 FREE DIRECT 1.40 ng/dL Normal 0.76-1.46 [facility] Comment on above: Performed By: #### L 501.5503, L500.4050, L100.0100, L506.0400 ####[facility] [address] [place], [address] Thyroid Stim Hormone (TSH)on 09-17-2024 TSH 2.780 uIU/mL Normal 0.300-4.200 [facility] Comment on above: Performed By: #### L 501.9520, L500.4050, L100.0100, L506.0400 ####[facility] [address] [place], [address] TSH 3.100 uIU/mL Normal 0.300-4.200 [facility] Comment on above: Order Comment: Has P atient had X-rays with Contrast this admission? N Performed By: #### L 501.5200, L501.9520, L506.0250, L505.5000, L501.9985, L501.4021 ####[facility] [address] [place], [address] Total proteinOrdered By: Rahat Mayfield on 09-17-2024 Protein [Mass/Vol] 6.1 g/dL 5.9-8.4 [facility] Triglycerides measurementOrd ered By: Altaf Mayfield on 09-17-2024 Triglyceride [Mass/Vol] 76 mg/dL <199 [facility] Comment on above: The drugs N-Acetylcy steine and Metamizole may falsely depress this assay. Normal range: <150 mg/dLBorderline High: 150-199 mg/dLHigh: 200-499 mg/dLVery High: >500 mg/dL Troponin T.cardiac High sens itivity method [Mass/Vol]Ordered By: Altaf Mayfield on 09-17-2024 Troponin T High Sensitivity 4 Hour 69 ng/L High <22 [facility] Comment on above: DIS INOPrevious repo rted result: 69 ng/LEdited by: AUTOINS on 09/23/24:0432 AMENDED REPORT 09/23/24 0432 Trop T HS 4HR previously reported as: 69 *H ng/L Troponin T High Sensitivity 2 Hour 77 ng/L High <22 [facility] Comment on above: DIS INOPrevious repo rted result: 77 ng/LEdited by: AUTOINS on 09/23/24:0432 AMENDED REPORT 09/23/24 0432 Trop T HS 2HR previously reported as: 77 *H ng/L Troponin T.cardiac [Mass/vol ume] in Serum or Plasma by High sensitivity methodOrdered By: Altaf Mayfield on 09-17-2024 Troponin T.cardiac High sensitivity method [Mass/Vol] 69 ng/L High <22 [facility] Comment on above: DIS INOPrevious repo rted result: 69 ng/LEdited by: AUTOINS on 09/23/24:0432 AMENDED REPORT 09/23/242 Trop T HS 4HR previously reported as: 69 *H ng/L Troponin T.cardiac High sensitivity method [Mass/Vol] 77 ng/L High <22 [facility] Comment on above: DIS INOPrevious repo rted result: 77 ng/LEdited by: AUTOINS on 09/23/24:0432 AMENDED REPORT 09/23/24431 Trop T HS 2HR previously reported as: 77 *H ng/L White blood cell (WBC) count Ordered By: Altaf Mayfield on 09-17-2024 WBC (Bld) [#/Vol] 3.6 10*3/uL Low 4.4-11.0 [facility] 12 Lead EKGon 09-16-2024 12 Lead EKG Normal [facility] Absolute lymphocyte countOrd ered By: Alberto Mustafa on 09-16-2024 Lymphocytes Auto (Unsp spec) [#/Vol] 0.72 10*3/uL Low 0.83-4.51 [facility] Absolute neutrophil countOrd ered By: Alberto Mustafa on 09-16-2024 Neutrophils (Bld) [#/Vol] 3.9 10*3/uL 2.0-7.7 [facility] Automated lymphocyte count a s percentage of total leukocytesOrdered By: Alberto Mustafa on 09-16-2024 Lymphocytes/100 WBC Auto (Unsp spec) 13.9 % Low 19-41 [facility] BUN/creatinine ratioOrdered By: Alberto Mustafa on 09-16-2024 Urea nitrogen/Creatinine [Mass ratio] 10.9 mg/mg 10-20 [facility] Basophil percentageOrdered B y: Alberto Mustafa on 09-16-2024 Basophils/100 WBC (Bld) 0.8 % 0-1 [facility] Bilirubin Test strip Ql (U)O rdered By: Maliha Youngblood on 09-16-2024 Bilirubin Ql (U) Negative Negative [facility] Bilirubin, totalOrdered By: Alberto Mustafa on 09-16-2024 Bilirubin [Mass/Vol] 0.79 mg/dL 0.00-1.30 [facility] Brain/Head without Contrasto n 09-16-2024 Brain/Head without Contrast Normal [facility] CBC W/Diff, Automatedon 08-24 Absolute Lymph 0.72 X10 3/uL Low 0.83-4.51 [facility] Comment on above: Performed By: #### L 501.9520, L500.4050, L100.0100, L506.0400 ####[facility] [address] [place], [address] Absolute Neut 3.9 X10 3/uL Normal 2.0-7.7 [facility] Comment on above: Performed By: #### L 501.9520, L500.4050, L100.0100, L506.0400 ####[facility] [address] [place], [address] Basophils/100 WBC (Bld) 0.8 % Normal 0-1 [facility] Comment on above: Performed By: #### L 501.9520, L500.4050, L100.0100, L506.0400 ####[facility] [address] [place], [address] Eosinophils/100 WBC (Bld) 1.2 % Normal 0-5 [facility] Comment on above: Performed By: #### L 501.9520, L500.4050, L100.0100, L506.0400 ####[facility] [address] [place], [address] Erythrocyte distribution width (RBC) [Ratio] 13.2 % Normal 11.6-14.6 [facility] Comment on above: Performed By: #### L 501.9520, L500.4050, L100.0100, L506.0400 ####[facility] [address] [place], [address] Hematocrit (Bld) [Volume fraction] 49.6 % Normal 40-54 [facility] Comment on above: Performed By: #### L 501.9520, L500.4050, L100.0100, L506.0400 ####[facility] [address] [place], [address] Hemoglobin (Bld) [Mass/Vol] 15.9 g/dL Normal 13.0-16.5 [facility] Comment on above: Performed By: #### L 501.9520, L500.4050, L100.0100, L506.0400 ####[facility] [address] [place], [address] IG% 0.600 Normal 0.0-0.9 [facility] Comment on above: Result Comment: IG% - Immature Granulocytes (promyelocytes, myelocytes andmetamyelocytes) > 1% indicates that a LEFT SHIFT is Present. Performed By: #### L 501.9520, L500.4050, L100.0100, L506.0400 ####[facility] [address] [place], [address] Lymphocytes/100 WBC (Bld) 13.9 % Low 19-41 [facility] Comment on above: Performed By: #### L 501.9520, L500.4050, L100.0100, L506.0400 ####[facility] [address] [place], [address] MCH (RBC) [Entitic mass] 30.0 pg Normal 27.0-32.0 [facility] Comment on above: Performed By: #### L 501.9520, L500.4050, L100.0100, L506.0400 ####[facility] [address] [place], [address] MCHC (RBC) [Mass/Vol] 32.1 g/dL Normal 32-36 [facility] Comment on above: Performed By: #### L 501.9520, L500.4050, L100.0100, L506.0400 ####[facility] [address] [place], [address] MCV (RBC) [Entitic vol] 93.6 fL Normal 80-94 [facility] Comment on above: Performed By: #### L 501.9520, L500.4050, L100.0100, L506.0400 ####[facility] [address] [place], [address] Monocytes/100 WBC (Bld) 8.1 % Normal 0-10 [facility] Comment on above: Performed By: #### L 501.9520, L500.4050, L100.0100, L506.0400 ####[facility] [address] [place], [address] Neutrophils/100 WBC (Bld) 75.4 % High 47-70 [facility] Comment on above: Performed By: #### L 501.9520, L500.4050, L100.0100, L506.0400 ####[facility] [address] [place], [address] Nucleated RBC (Bld) [#/Vol] 0 10*3/uL Normal 0-5 [facility] Comment on above: Performed By: #### L 501.9520, L500.4050, L100.0100, L506.0400 ####[facility] [address] [place], [address] Platelet mean volume (Bld) [Entitic vol] 10.5 fL Normal 6.2-12.0 [facility] Comment on above: Performed By: #### L 501.9520, L500.4050, L100.0100, L506.0400 ####[facility] [address] [place], [address] Platelets (Bld) [#/Vol] 169 10*3/uL Normal 150-450 [facility] Comment on above: Performed By: #### L 501.9520, L500.4050, L100.0100, L506.0400 ####[facility] [address] [place], [address] RBC (Bld) [#/Vol] 5.30 10*6/uL Normal 4.6-6.2 [facility] Comment on above: Performed By: #### L 501.9520, L500.4050, L100.0100, L506.0400 ####[facility] [address] [place], [address] RDW SD 45.5 fl High 35.1-43.9 [facility] Comment on above: Performed By: #### L 501.9520, L500.4050, L100.0100, L506.0400 ####[facility] [address] [place], [address] WBC (Bld) [#/Vol] 5.2 10*3/uL Normal 4.4-11.0 [facility] Comment on above: Performed By: #### L 501.9520, L500.4050, L100.0100, L506.0400 ####[facility] [address] [place], [address] Absolute Lymph 0.58 X10 3/uL Low 0.83-4.51 [facility] Comment on above: Performed By: #### L 500.4050, L100.0100 ####[facility] [address] [place], [address] Absolute Neut 3.8 X10 3/uL Normal 2.0-7.7 [facility] Comment on above: Performed By: #### L 500.4050, L100.0100 ####[facility] [address] [place], [address] Basophils/100 WBC (Bld) 0.4 % Normal 0-1 [facility] Comment on above: Performed By: #### L 500.4050, L100.0100 ####[facility] [address] [place], [address] Eosinophils/100 WBC (Bld) 1.2 % Normal 0-5 [facility] Comment on above: Performed By: #### L 500.4050, L100.0100 ####[facility] [address] [place], [address] Erythrocyte distribution width (RBC) [Ratio] 13.2 % Normal 11.6-14.6 [facility] Comment on above: Performed By: #### L 500.4050, L100.0100 ####[facility] [address] [place], [address] Hematocrit (Bld) [Volume fraction] 46.8 % Normal 40-54 [facility] Comment on above: Performed By: #### L 500.4050, L100.0100 ####[facility] [address] [place], [address] Hemoglobin (Bld) [Mass/Vol] 15.4 g/dL Normal 13.0-16.5 [facility] Comment on above: Performed By: #### L 500.4050, L100.0100 ####[facility] [address] [place], [address] IG% 0.600 Normal 0.0-0.9 [facility] Comment on above: Result Comment: IG% - Immature Granulocytes (promyelocytes, myelocytes andmetamyelocytes) > 1% indicates that a LEFT SHIFT is Present. Performed By: #### L 500.4050, L100.0100 ####[facility] [address] [place], [address] Lymphocytes/100 WBC (Bld) 12.0 % Low 19-41 [facility] Comment on above: Performed By: #### L 500.4050, L100.0100 ####[facility] [address] [place], [address] MCH (RBC) [Entitic mass] 30.4 pg Normal 27.0-32.0 [facility] Comment on above: Performed By: #### L 500.4050, L100.0100 ####[facility] [address] [place], [address] MCHC (RBC) [Mass/Vol] 32.9 g/dL Normal 32-36 [facility] Comment on above: Performed By: #### L 500.4050, L100.0100 ####[facility] [address] [place], [address] MCV (RBC) [Entitic vol] 92.3 fL Normal 80-94 [facility] Comment on above: Performed By: #### L 500.4050, L100.0100 ####[facility] [address] [place], [address] Monocytes/100 WBC (Bld) 8.2 % Normal 0-10 [facility] Comment on above: Performed By: #### L 500.4050, L100.0100 ####[facility] [address] [place], [address] Neutrophils/100 WBC (Bld) 77.6 % High 47-70 [facility] Comment on above: Performed By: #### L 500.4050, L100.0100 ####[facility] [address] [place], [address] Nucleated RBC (Bld) [#/Vol] 0 10*3/uL Normal 0-5 [facility] Comment on above: Performed By: #### L 500.4050, L100.0100 ####[facility] [address] [place], [address] Platelet mean volume (Bld) [Entitic vol] 9.8 fL Normal 6.2-12.0 [facility] Comment on above: Performed By: #### L 500.4050, L100.0100 ####[facility] [address] [place], [address] Platelets (Bld) [#/Vol] 155 10*3/uL Normal 150-450 [facility] Comment on above: Performed By: #### L 500.4050, L100.0100 ####[facility] [address] [place], [address] RBC (Bld) [#/Vol] 5.07 10*6/uL Normal 4.6-6.2 [facility] Comment on above: Performed By: #### L 500.4050, L100.0100 ####[facility] [address] [place], [address] RDW SD 45.1 fl High 35.1-43.9 [facility] Comment on above: Performed By: #### L 500.4050, L100.0100 ####[facility] [address] [place], [address] WBC (Bld) [#/Vol] 4.9 10*3/uL Normal 4.4-11.0 [facility] Comment on above: Performed By: #### L 500.4050, L100.0100 ####[facility] [address] [place], [address] Carbon dioxide measurementOr dered By: Alberto Mustafa on 09-16-2024 CO2 [Moles/Vol] 24.0 mmol/L 22.0-29.0 [facility] Chest 1 View (Portable)on Chest 1 View (Portable) Normal [facility] Chloride measurementOrdered By: Alberto Mustafa on 09-16-2024 Chloride [Moles/Vol] 97 mmol/L 96-108 [facility] Comprehensive Metabolic Prof ilon 09-16-2024 Albumin [Mass/Vol] 4.1 g/dL Normal 3.4-4.8 [facility] Comment on above: Performed By: #### L 500.4050, L100.0100 ####[facility] [address] [place], [address] Albumin/Globulin [Mass ratio] 1.3 {ratio} Normal 0.9-2.4 [facility] Comment on above: Performed By: #### L 500.4050, L100.0100 ####[facility] [address] [place], [address] ALK PHOS 115 U/L Normal 40-129 [facility] Comment on above: Performed By: #### L 500.4050, L100.0100 ####[facility] [address] [place], [address] ALT [Catalytic activity/Vol] 12 U/L Normal <=46 [facility] Comment on above: Performed By: #### L 500.4050, L100.0100 ####[facility] [address] [place], [address] Anion gap [Moles/Vol] 10 mmol/L Normal 5-15 [facility] Comment on above: Performed By: #### L 500.4050, L100.0100 ####[facility] [address] [place], [address] AST [Catalytic activity/Vol] 27 U/L Normal <=37 [facility] Comment on above: Performed By: #### L 500.4050, L100.0100 ####[facility] [address] [place], [address] Bilirubin [Mass/Vol] 0.79 mg/dL Normal 0.00-1.30 [facility] Comment on above: Performed By: #### L 500.4050, L100.0100 ####[facility] [address] [place], [address] BUN/CRE 12.2 RATIO Normal 10-20 [facility] Comment on above: Performed By: #### L 500.4050, L100.0100 ####[facility] [address] [place], [address] Calcium [Mass/Vol] 10.2 mg/dL Normal 7.6-11.0 [facility] Comment on above: Performed By: #### L 500.4050, L100.0100 ####[facility] [address] [place], [address] Chloride [Moles/Vol] 99 mmol/L Normal 96-108 [facility] Comment on above: Performed By: #### L 500.4050, L100.0100 ####[facility] [address] [place], [address] CO2 [Moles/Vol] 27.4 mmol/L Normal 22.0-29.0 [facility] Comment on above: Performed By: #### L 500.4050, L100.0100 ####[facility] [address] [place], [address] Creatinine [Mass/Vol] 1.3 mg/dL Normal 0.8-1.3 [facility] Comment on above: Performed By: #### L 500.4050, L100.0100 ####[facility] [address] [place], [address] GFR/1.73 sq M.predicted among non-blacks MDRD (S/P/Bld) [Vol rate/Area] 54 mL/min/{1.73_m2} Low >60 [facility] Comment on above: Result Comment: mL/m in/1.73m2 CKD-EPI Creatinine Equation (2020) Performed By: #### L 500.4050, L100.0100 ####[facility] [address] [place], [address] Globulin (S) [Mass/Vol] 3.1 g/dL Normal 2.2-4.2 [facility] Comment on above: Performed By: #### L 500.4050, L100.0100 ####[facility] [address] [place], [address] Glucose [Mass/Vol] 138 mg/dL High 70-99 [facility] Comment on above: Performed By: #### L 500.4050, L100.0100 ####[facility] [address] [place], [address] Potassium [Moles/Vol] 4.4 mmol/L Normal 3.3-5.1 [facility] Comment on above: Performed By: #### L 500.4050, L100.0100 ####[facility] [address] [place], [address] Sodium [Moles/Vol] 136 mmol/L Normal 133-145 [facility] Comment on above: Performed By: #### L 500.4050, L100.0100 ####[facility] [address] [place], [address] T PROT 7.1 g/dL Normal 5.9-8.4 [facility] Comment on above: Performed By: #### L 500.4050, L100.0100 ####[facility] [address] [place], [address] Urea nitrogen [Mass/Vol] 16 mg/dL Normal 4-19 [facility] Comment on above: Performed By: #### L 500.4050, L100.0100 ####[facility] [address] [place], [address] Creatinine [Moles/Vol]Ordere d By: Alberto Mustafa on 09-16-2024 Creatinine [Mass/Vol] 1.4 mg/dL High 0.8-1.3 [facility] Summary on 09-16-2024 Emergency Department Summary Normal [facility] Eosinophil percentageOrdered By: Alberto Mustafa on 09-16-2024 Eosinophils/100 WBC (Bld) 1.2 % 0-5 [facility] Epithelial cells.squamous LM Ql (Urine sed)Ordered By: Maliha Youngblood on 09-16-2024 Epithelial cells.squamous LM.HPF (Urine sed) [#/Area] 0 /[HPF] 0-5 [facility] Erythrocyte distribution wid th ratioOrdered By: Alberto Mustafa on 09-16-2024 Erythrocyte distribution width (RBC) [Ratio] 13.2 % 11.6-14.6 [facility] Erythrocyte distribution wid th standard deviationOrdered By: Alberto Mustafa on 09-16-2024 Erythrocyte distribution width (RBC) [Entitic vol] 45.5 fL High 35.1-43.9 [facility] Erythrocyte distribution width (RBC) [Ratio] 45.5 fl High 35.1-43.9 [facility] Folate measurementOrdered By : Altaf Mayfield on 09-16-2024 Folate 8.53 ng/mL 4.60-34.80 [facility] GFR/1.73 sq M.predicted mehran g non-blacks MDRD (S/P/Bld) [Vol rate/Area]Ordered By: Alberto Mustafa on 09-16-2024 Estimated GFR (MDRD) Non-Af Amer 48 Low >60 [facility] Comment on above: mL/min/1.73m2 CKD-EP I Creatinine Equation (2020) Glomerular filtration rate ( GFR) estimation/1.73 sq m using serum, plasma, or whole bOrdered By: Alberto Mustafa on 09-16-2024 GFR/1.73 sq M.predicted among non-blacks MDRD (S/P/Bld) [Vol rate/Area] 48 mL/min/{1.73_m2} Low >60 [facility] Comment on above: mL/min/1.73m2 CKD-EP I Creatinine Equation (2020) Glucose Ql (U)Ordered By: Kellee Youngblood on 09-16-2024 Urine Glucose (UA) Normal mg/dl Normal [facility] H AND P Exam - Hospitaliston 09-16-2024 H&P Exam - Hospitalist Normal [facility] Hematocrit Auto (Bld) [Volum e fraction]Ordered By: Alberto Mustafa on 09-16-2024 Hematocrit (Bld) [Volume fraction] 49.6 % 40-54 [facility] Hemoglobin A1c percentageOrd ered By: Altaf Mayfield on 09-16-2024 HbA1c (Bld) [Mass fraction] 6.1 % >5.7 [facility] Hemoglobin measurementOrdere d By: Alberto Mustafa on 09-16-2024 Hemoglobin (Bld) [Mass/Vol] 15.9 g/dL 13.0-16.5 [facility] Immature granulocytes/100 WB C Auto (Bld)Ordered By: Alberto Mustafa on 09-16-2024 Immature granulocytes/100 WBC (Bld) 0.600 % 0.0-0.9 [facility] Comment on above: IG% - Immature Granu locytes (promyelocytes, myelocytes and metamyelocytes) > 1% indicates that a LEFT SHIFT is Present. Ketones Test strip Ql (U)Ord ered By: Maliha Youngblood on 09-16-2024 Ketones Ql (U) 5 mg/dl High Negative [facility] L501.4021on 09-16-2024 Trop T High Sen 57 ng/L Invalid Interpretation Code <=22 [facility] Comment on above: Order Comment: Comme nts: draw at 15:05 Result Comment: Crit ical Result(s) Called at 09/16/2024-16:35 by Prosper Meeks??Results read back by same. Performed By: #### L 501.402 ####[facility] [address] [place], [address] Trop T High Sen 62 ng/L Invalid Interpretation Code <=22 [facility] Comment on above: Result Comment: Crit ical Result(s) Called at 09/16/2024 by Prosper Garces??[place] Results read back by same. Performed By: #### L 501.4021 ####[facility] [address] [place], [address] Laboratory - Chemistry and C hemistry - challengeOrdered By: Alberto Mustafa on 09-16-2024 AST [Catalytic activity/Vol] 31 U/L <38 [facility] Lymphocytes Auto (Unsp spec) [#/Vol]Ordered By: Alberto Mustafa on 09-16-2024 Lymphocytes (Bld) [#/Vol] 0.72 10*3/uL Low 0.83-4.5 1 [facility] Lymphocytes/100 WBC Auto (Un sp spec)Ordered By: Alberto Mustafa on 09-16-2024 Lymphocytes/100 WBC (Bld) 13.9 % Low 19-41 [facility] MCV (mean corpuscular volume ) determinationOrdered By: Alberto Mustafa on 09-16-2024 MCV (RBC) [Entitic vol] 93.6 fL 80-94 [facility] Magnesium (Unsp spec) [Mass/ Vol]Ordered By: Altaf Mayfield on 09-16-2024 Magnesium [Mass/Vol] 2.2 mg/dL 1.5-2.2 [facility] Magnesium measurement (mass/ volume)Ordered By: Altaf Mayfield on 09-16-2024 Magnesium (Unsp spec) [Mass/Vol] 2.2 mg/dL 1.5-2.2 [facility] Mean corpuscular hemoglobin (MCH) determinationOrdered By: Alberto Mustafa on 09-16-2024 MCH (RBC) [Entitic mass] 30.0 pg 27.0-32.0 [facility] Mean corpuscular hemoglobin concentration (MCHC) determinationOrdered By: Alberto Mustafa on 09-16-2024 MCHC (RBC) [Mass/Vol] 32.1 g/dL 32-36 [facility] Mean platelet volume determi nationOrdered By: Alberto Mustafa on 09-16-2024 Platelet mean volume (Bld) [Entitic vol] 10.5 fL 6.2-12.0 [facility] Microscopic analysis of urin e for red blood cells (RBC)Ordered By: Maliha Youngblood on 09-16-2024 Microscopic analysis of urine for red blood cells (RBC) 0 SEEN /hpf 0-5 [facility] Urine RBC 0 SEEN /hpf 0-5 [facility] Monocyte percentageOrdered B y: Alberto Mustafa on 09-16-2024 Monocytes/100 WBC (Bld) 8.1 % 0-10 [facility] Mucus LM Ql (Urine sed)Order ed By: Maliha Youngblood on 09-16-2024 Mucus Ql (Urine sed) 0 SEEN /hpf [facility] Neutrophil percentageOrdered By: Alberto Mustafa on 09-16-2024 Neutrophils/100 WBC (Bld) 75.4 % High 47-70 [facility] Nitrite Test strip Ql (U)Ord ered By: Maliha Youngblood on 09-16-2024 Nitrite Ql (U) Negative Negative [facility] No Panel InformationOrdered By: Altaf Mayfield on 09-16-2024 Troponin T High Sensitivity 76 ng/L High <22 [facility] Comment on above: Delta: 57 on 5-1523Critical Result(s) Called at: by: Results read back by same.CALLED TO Ramandeep TOMLIN AT 0055 76 ng/L High <22 [facility] No Panel InformationOrdered By: Alberto Mustafa on 09-16-2024 31 U/L <38 [facility] Nucleated red blood cell per centageOrdered By: Alberto Mustafa on 09-16-2024 Nucleated RBC/100 WBC (Bld) [Ratio] 0 % 0-5 [facility] Platelet countOrdered By: Janette Mustafa on 09-16-2024 Platelets (Bld) [#/Vol] 169 10*3/uL 150-450 [facility] Protein Test strip Ql (U)Ord ered By: Maliha Youngblood on 09-16-2024 Protein Ql (U) 15 mg/dl High Negative [facility] RBC Auto (Bld) [#/Vol]Ordere d By: Alberto Mustafa on 09-16-2024 RBC (Bld) [#/Vol] 5.30 10*6/uL 4.6-6.2 [facility] Serum globulin measurementOr dered By: Alberto Mustafa on 09-16-2024 Globulin (S) [Mass/Vol] 3.2 g/dL 2.2-4.2 [facility] Serum glucose measurement (m ass/volume)Ordered By: Alberto Mustafa on 09-16-2024 Glucose [Mass/Vol] 124 mg/dL High 70-99 [facility] Serum or plasma alanine meraz otransferase (ALT) measurementOrdered By: Alberto Mustafa on 09-16-2024 ALT [Catalytic activity/Vol] 15 U/L <47 [facility] Serum or plasma albumin ana urement (mass/volume)Ordered By: Alberto Mustafa on 09-16-2024 Albumin [Mass/Vol] 4.3 g/dL 3.4-4.8 [facility] Serum or plasma albumin/glob ulin mass ratioOrdered By: Alberto Mustafa on 09-16-2024 Albumin/Globulin [Mass ratio] 1.4 {ratio} 0.9-2.4 [facility] Serum or plasma alkaline keenan sphatase measurementOrdered By: Alberto Mustafa on 09-16-2024 ALP [Catalytic activity/Vol] 113 U/L 40-129 [facility] Serum or plasma anion gap de termination (moles/volume)Ordered By: Alberto Mustafa on 09-16-2024 Anion gap [Moles/Vol] 15 mmol/L 5-15 [facility] Serum or plasma calcium ana urement (mass/volume)Ordered By: Alberto Mustafa on 09-16-2024 Calcium [Mass/Vol] 10.3 mg/dL 7.6-11.0 [facility] Serum or plasma creatinine m easurement (moles/volume)Ordered By: Alberto Mustafa on 09-16-2024 Creatinine [Moles/Vol] 1.4 mg/dL High 0.8-1.3 [facility] Serum or plasma potassium me asurementOrdered By: Alberto Mustafa on 09-16-2024 Potassium [Moles/Vol] 4.4 mmol/L 3.3-5.1 [facility] Serum or plasma sodium measu rement (moles/volume)Ordered By: Alberto Mustafa on 09-16-2024 Sodium [Moles/Vol] 136 mmol/L 133-145 [facility] Serum or plasma urea nitroge n measurement (mass/volume)Ordered By: Alberto Mustafa on 09-16-2024 Urea nitrogen [Mass/Vol] 16 mg/dL 4-19 [facility] Spine Cervical without Contr ason 09-16-2024 Spine Cervical without Contras Normal [facility] Spine Lumbar without Contras ton 09-16-2024 Spine Lumbar without Contrast Normal [facility] Squamous epithelial cells de tection in urine sediment by light microscopyOrdered By: Maliha Youngblood on 09-16-2024 Epithelial cells.squamous LM Ql (Urine sed) 0 SEEN /hpf 0-5 [facility] T4 freeOrdered By: Alberto nick on 09-16-2024 Free T4 [Mass/Vol] 1.40 ng/dL 0.76-1.46 [facility] TSH DL <= 0.005 mIU/L QnOrde red By: Altaf Mayfield on 09-16-2024 Thyroid Stimulating Hormone (TSH) 3.100 uIU/mL 0.300-4.200 [facility] TSH Qn 3.100 uIU/mL 0.300-4.200 [facility] TSH DL <= 0.005 mIU/L QnOrde red By: Alberto Mustafa on 09-16-2024 Thyroid Stimulating Hormone (TSH) 2.780 uIU/mL 0.300-4.200 [facility] TSH Qn 2.780 uIU/mL 0.300-4.200 [facility] Total proteinOrdered By: Jersey Mustafa on 09-16-2024 Protein [Mass/Vol] 7.5 g/dL 5.9-8.4 [facility] Urinalysis, Completeon 09-16 RBC 0 SEEN Normal 0-5 [facility] Comment on above: Order Comment: CLEAN CATCH Performed By: #### L 400.0001 ####[facility] [address] [place], [address] BACTERIA 0 SEEN Normal None Seen [facility] Comment on above: Order Comment: CLEAN CATCH Performed By: #### L 400.0001 ####[facility] [address] [place], [address] EPI,SQUAMOUS 0 SEEN Normal 0-5 [facility] Comment on above: Order Comment: CLEAN CATCH Performed By: #### L 400.0001 ####[facility] [address] [place], [address] Mucus Ql (Urine sed) 0 SEEN Normal [facility] Comment on above: Order Comment: CLEAN CATCH Performed By: #### L 400.0001 ####[facility] [address] [place] [address] WBC 0 SEEN Normal 0-5 [facility] Comment on above: Order Comment: CLEAN CATCH Performed By: #### L 400.0001 ####[facility] [address] [place] [address] Urine Drug Screen (VISTA)on 09-16-2024 AMPHETAMINES Normal <1000 ng/mL [facility] Comment on above: Result Comment: EDIE ENT DICHARGED SPECIMEN NO LONGER IN LAB Performed By: #### L 501.5200, L501.9520, L506.0250, L505.5000, L501.9985, L501.4021 ####[facility] [address] [place], [phone] BARBITIURATES Normal < 200 ng/mL [facility] Comment on above: Result Comment: EDIE ENT DICHARGED SPECIMEN NO LONGER IN LAB Performed By: #### L 501.5200, L501.9520, L506.0250, L505.5000, L501.9985, L501.4021 ####[facility] [address] [facility] [address] BENZODIAZIPINE Normal < 200 ng/mL [facility] Comment on above: Result Comment: EDIE ENT DICHARGED SPECIMEN NO LONGER IN LAB Performed By: #### L 501.5200, L501.9520, L506.0250, L505.5000, L501.9985, L501.4021 ####[facility] [address] [place], [address] BUP Ur Drug Scr Normal < 200 ng/mL [facility] Comment on above: Result Comment: EDIE ENT DICHARGED SPECIMEN NO LONGER IN LAB Performed By: #### L 501.5200, L501.9520, L506.0250, L505.5000, L501.9985, L501.4021 ####[facility] [address] [place], [address] COCAINE Normal < 300 ng/mL [facility] Comment on above: Result Comment: EDIE ENT DICHARGED SPECIMEN NO LONGER IN LAB Performed By: #### L 501.5200, L501.9520, L506.0250, L505.5000, L501.9985, L501.4021 ####[facility] [address] [place], [place], [phone] Fentanyl Normal [facility] Comment on above: Result Comment: EDIE ENT DICHARGED SPECIMEN NO LONGER IN LAB Performed By: #### L 501.5200, L501.9520, L506.0250, L505.5000, L501.9985, L501.4021 ####[facility] [address] [place], [place], [phone] METHADONE Normal < 300 ng/mL [facility] Comment on above: Result Comment: EDIE ENT DICHARGED SPECIMEN NO LONGER IN LAB Performed By: #### L 501.5200, L501.9520, L506.0250, L505.5000, L501.9985, L501.4021 ####[facility] [address] [place], [address] OPIATES Normal < 300 ng/mL [facility] Comment on above: Result Comment: EDEI ENT DICHARGED SPECIMEN NO LONGER IN LAB Performed By: #### L 501.5200, L501.9520, L506.0250, L505.5000, L501.9985, L501.4021 ####[facility] [address] [place], [address] OXYCODONE Normal < 100 ng/mL [facility] Comment on above: Result Comment: EDIE ENT DICHARGED SPECIMEN NO LONGER IN LAB Performed By: #### L 501.5200, L501.9520, L506.0250, L505.5000, L501.9985, L501.4021 ####[facility] [address] [place], [address] PCP Normal < 25 ng/mL [facility] Comment on above: Result Comment: EDIE ENT DICHARGED SPECIMEN NO LONGER IN LAB Performed By: #### L 501.5200, L501.9520, L506.0250, L505.5000, L501.9985, L501.4021 ####[facility] [address] [place], [address] THC Normal < 50 ng/mL [facility] Comment on above: Result Comment: EDIE ENT DICHARGED SPECIMEN NO LONGER IN LAB Performed By: #### L 501.5200, L501.9520, L506.0250, L505.5000, L501.9985, L501.4021 ####[facility] [address] [place], [address] Urine blood detectionOrdered By: Maliha Youngblood on 09-16-2024 Urine Occult Blood Negative Negative [facility] Urine clarityOrdered By: Mari Youngblood on 09-16-2024 Clarity (U) Clear Clear [facility] Urine color determinationOrd ered By: Maliha Youngblood on 09-16-2024 Color (U) Yellow Yellow [facility] Urine glucose detectionOrder ed By: Maliha Youngblood on 09-16-2024 Glucose Ql (U) Normal mg/dl Normal [facility] Urine leukocyte esterase det ection by dipstickOrdered By: Maliha Youngblood on 09-16-2024 Leukocyte esterase Test strip Ql (U) Negative Negative [facility] Urine pHOrdered By: Maliha Un gur on 09-16-2024 pH (U) 6.5 [pH] 5.0 - 8.0 [facility] Urine sediment bacteria coun t by microscopy (number/high power field)Ordered By: Maliha Youngblood on 09-16-2024 Bacteria LM.HPF (Urine sed) [#/Area] 0 /[HPF] None Seen [facility] Urine specific gravity measu rementOrdered By: Maliha Youngblood on 09-16-2024 Specific gravity (U) [Rel density] 1.010 1.002-1.030 [facility] Urine urobilinogen measureme ntOrdered By: Maliha Youngblood on 09-16-2024 Urobilinogen Ql (U) Normal mg/dl Normal [facility] Urobilinogen Ql (U)Ordered B y: Maliha Youngblood on 09-16-2024 Urine Urobilinogen Normal mg/dl Normal [facility] White blood cell (WBC) count Ordered By: Alberto Mustafa on 09-16-2024 WBC (Bld) [#/Vol] 5.2 10*3/uL 4.4-11.0 [facility] White blood cell countOrdere d By: Maliha Youngblood on 09-16-2024 Urine WBC 0 SEEN /hpf 0-5 [facility] White blood cell count 0 SEEN /hpf 0-5 [facility] Direct serum free thyroxine (FT4) measurementOrdered By: Alberto Mustafa on 07-22-2024 Free T4 [Mass/Vol] 1.23 ng/dL 0.76-1.46 [facility] T4 Free Directon 07-22-2024 T4 FREE DIRECT 1.23 ng/dL Normal 0.76-1.46 [facility] Comment on above: Performed By: #### L 506.0400 ####[facility] [address] [place], [address] Direct serum free thyroxine (FT4) measurementOrdered By: Alberto Mustafa on 07-03-2024 Free T4 [Mass/Vol] 2.48 ng/dL High 0.76-1.46 [facility] T4 Free Directon 07-03-2024 T4 FREE DIRECT 2.48 ng/dL High 0.76-1.46 [facility] Comment on above: Order Comment: Order Date: 07/03/24Order Info: 3024-7 - T4F Performed By: #### L 506.0400 ####[facility] [address] [place], [address] CBC W/Diff, Automatedon Absolute Lymph 0.87 X10 3/uL Normal 0.83-4.51 [facility] Comment on above: Order Comment: Order Date: 04/25/24Order Info: 0184-1 - CBCD Performed By: #### L 100.0100, L500.4050, L500.4100, L501.9520, L503.0105 ####[facility] [address] [place], [address] Absolute Neut 3.7 X10 3/uL Normal 2.0-7.7 [facility] Comment on above: Order Comment: Order Date: 04/25/24Order Info: 0184-1 - CBCD Performed By: #### L 100.0100, L500.4050, L500.4100, L501.9520, L503.0105 ####[facility] [address] [place], [address] Basophils/100 WBC (Bld) 0.7 % Normal 0-1 [facility] Comment on above: Order Comment: Order Date: 04/25/24Order Info: 0184-1 - CBCD Performed By: #### L 100.0100, L500.4050, L500.4100, L501.9520, L503.0105 ####[facility] [address] [place], [address] Eosinophils/100 WBC (Bld) 2.8 % Normal 0-5 [facility] Comment on above: Order Comment: Order Date: 04/25/24Order Info: 0184-1 - CBCD Performed By: #### L 100.0100, L500.4050, L500.4100, L501.9520, L503.0105 ####[facility] [address] [place], [address] Erythrocyte distribution width (RBC) [Ratio] 13.2 % Normal 11.6-14.6 [facility] Comment on above: Order Comment: Order Date: 04/25/24Order Info: 0184-1 - CBCD Performed By: #### L 100.0100, L500.4050, L500.4100, L501.9520, L503.0105 ####[facility] [address] [place], [address] Hematocrit (Bld) [Volume fraction] 46.8 % Normal 40-54 [facility] Comment on above: Order Comment: Order Date: 04/25/24Order Info: 0184-1 - CBCD Performed By: #### L 100.0100, L500.4050, L500.4100, L501.9520, L503.0105 ####[facility] [address] [place], [address] Hemoglobin (Bld) [Mass/Vol] 14.8 g/dL Normal 13.0-16.5 [facility] Comment on above: Order Comment: Order Date: 04/25/24Order Info: 0184-1 - CBCD Performed By: #### L 100.0100, L500.4050, L500.4100, L501.9520, L503.0105 ####[facility] [address] [place], [address] IG% 0.600 Normal 0.0-0.9 [facility] Comment on above: Order Comment: Order Date: 04/25/24Order Info: 0184-1 - CBCD Result Comment: IG% - Immature Granulocytes (promyelocytes, myelocytes andmetamyelocytes) > 1% indicates that a LEFT SHIFT is Present. Performed By: #### L 100.0100, L500.4050, L500.4100, L501.9520, L503.0105 ####[facility] [address] [place], [address] Lymphocytes/100 WBC (Bld) 16.3 % Low 19-41 [facility] Comment on above: Order Comment: Order Date: 04/25/24Order Info: 0184-1 - CBCD Performed By: #### L 100.0100, L500.4050, L500.4100, L501.9520, L503.0105 ####[facility] [address] [place], [address] MCH (RBC) [Entitic mass] 29.6 pg Normal 27.0-32.0 [facility] Comment on above: Order Comment: Order Date: 04/25/24Order Info: 018- - CBCD Performed By: #### L 100.0100, L500.4050, L500.4100, L501.9520, L503.0105 ####[facility] [address] [place], [address] MCHC (RBC) [Mass/Vol] 31.6 g/dL Low 32-36 [facility] Comment on above: Order Comment: Order Date: 04/25/24Order Info: 018- - CBCD Performed By: #### L 100.0100, L500.4050, L500.4100, L501.9520, L503.0105 ####[facility] [address] [place], [address] MCV (RBC) [Entitic vol] 93.6 fL Normal 80-94 [facility] Comment on above: Order Comment: Order Date: 04/25/24Order Info: 0184-1 - CBCD Performed By: #### L 100.0100, L500.4050, L500.4100, L501.9520, L503.0105 ####[facility] [address] [place], [address] Monocytes/100 WBC (Bld) 9.7 % Normal 0-10 [facility] Comment on above: Order Comment: Order Date: 04/25/24Order Info: 0184-1 - CBCD Performed By: #### L 100.0100, L500.4050, L500.4100, L501.9520, L503.0105 ####[facility] [address] [place], [address] Neutrophils/100 WBC (Bld) 69.9 % Normal 47-70 [facility] Comment on above: Order Comment: Order Date: 04/25/24Order Info: 0184-1 - CBCD Performed By: #### L 100.0100, L500.4050, L500.4100, L501.9520, L503.0105 ####[facility] [address] [place], [address] Nucleated RBC (Bld) [#/Vol] 0 10*3/uL Normal 0-5 [facility] Comment on above: Order Comment: Order Date: 04/25/24Order Info: 0184-1 - CBCD Performed By: #### L 100.0100, L500.4050, L500.4100, L501.9520, L503.0105 ####[facility] [address] [place], [address] Platelet mean volume (Bld) [Entitic vol] 10.3 fL Normal 6.2-12.0 [facility] Comment on above: Order Comment: Order Date: 04/25/24Order Info: 0184-1 - CBCD Performed By: #### L 100.0100, L500.4050, L500.4100, L501.9520, L503.0105 ####[facility] [address] [place], [address] Platelets (Bld) [#/Vol] 141 10*3/uL Low 150-450 [facility] Comment on above: Order Comment: Order Date: 04/25/24Order Info: 0184-1 - CBCD Performed By: #### L 100.0100, L500.4050, L500.4100, L501.9520, L503.0105 ####[facility] [address] [place], [address] RBC (Bld) [#/Vol] 5.00 10*6/uL Normal 4.6-6.2 [facility] Comment on above: Order Comment: Order Date: 04/25/24Order Info: 0184-1 - CBCD Performed By: #### L 100.0100, L500.4050, L500.4100, L501.9520, L503.0105 ####[facility] [address] [place], [address] RDW SD 45.2 fl High 35.1-43.9 [facility] Comment on above: Order Comment: Order Date: 04/25/24Order Info: 0184-1 - CBCD Performed By: #### L 100.0100, L500.4050, L500.4100, L501.9520, L503.0105 ####[facility] [address] [place], [address] WBC (Bld) [#/Vol] 5.4 10*3/uL Normal 4.4-11.0 [facility] Comment on above: Order Comment: Order Date: 04/25/24Order Info: 0184-1 - CBCD Performed By: #### L 100.0100, L500.4050, L500.4100, L501.9520, L503.0105 ####[facility] [address] [place], [address] Comprehensive Metabolic Prof ilon 05-29-2024 Albumin [Mass/Vol] 3.9 g/dL Normal 3.2-5.0 [facility] Comment on above: Order Comment: Order Date: 04/25/24Order Info: 785- - CMPOrder Info: [id number] - LIPIDOrder Info: [id number] - TSHOrder Info: 7 - T4F Performed By: #### L 100.0100, L500.4050, L500.4100, L501.9520, L503.0105 ####[facility] [address] [place], [address] Albumin/Globulin [Mass ratio] 1.1 {ratio} Normal 0.9-2.4 [facility] Comment on above: Order Comment: Order Date: 04/25/24Order Info: 785- - CMPOrder Info: - LIPIDOrder Info: [id number] - TSHOrder Info: 7 - T4F Performed By: #### L 100.0100, L500.4050, L500.4100, L501.9520, L503.0105 ####[facility] [address] [place], [place], [address] ALK P 117 U/L Normal 45-117 [facility] Comment on above: Order Comment: Order Date: 04/25/24Order Info: [id number] - CMPOrder Info: - LIPIDOrder Info: [id number] - TSHOrder Info: 7 - T4F Performed By: #### L 100.0100, L500.4050, L500.4100, L501.9520, L503.0105 ####[facility] [address] [place], [address] ALT [Catalytic activity/Vol] 20 U/L Normal 16-61 [facility] Comment on above: Order Comment: Order Date: 04/25/24Order Info: 785- - CMPOrder Info: [id number] - LIPIDOrder Info: [id number] - TSHOrder Info: 3027 - T4F Performed By: #### L 100.0100, L500.4050, L500.4100, L501.9520, L503.0105 ####[facility] [address] [place], [address] AST [Catalytic activity/Vol] 22 U/L Normal 15-37 [facility] Comment on above: Order Comment: Order Date: 04/25/24Order Info: 0786-1 - CMPOrder Info: [id number] - LIPIDOrder Info: [id number] - TSHOrder Info: 3024-7 - T4F Performed By: #### L 100.0100, L500.4050, L500.4100, L501.9520, L503.0105 ####[facility] [address] [place], [address] Bilirubin [Mass/Vol] 0.90 mg/dL Normal 0.20-1.00 [facility] Comment on above: Order Comment: Order Date: 04/25/24Order Info: 785- - CMPOrder Info: [id number] - LIPIDOrder Info: [id number] - TSHOrder Info: 3024-7 - T4F Result Comment: For patients on eltrombopag therapy, use of Dimension [place] TBIL is not recommended. Performed By: #### L 100.0100, L500.4050, L500.4100, L501.9520, L503.0105 ####[facility] [address] [place], [address] BUN/CRE 16.3 RATIO Normal 10-20 [facility] Comment on above: Order Comment: Order Date: 04/25/24Order Info: 07-1 - CMPOrder Info: [id number] - LIPIDOrder Info: [id number] - TSHOrder Info: 3024-7 - T4F Performed By: #### L 100.0100, L500.4050, L500.4100, L501.9520, L503.0105 ####[facility] [address] [place], [address] CA,Total 9.6 mg/dL Normal 8.5-10.1 [facility] Comment on above: Order Comment: Order Date: 04/25/24Order Info: 86-1 - CMPOrder Info: [id number] - LIPIDOrder Info: 3 - TSHOrder Info: 3027 - T4F Performed By: #### L 100.0100, L500.4050, L500.4100, L501.9520, L503.0105 ####[facility] [address] [place], [address] Chloride [Moles/Vol] 105 mmol/L Normal 98-107 [facility] Comment on above: Order Comment: Order Date: 04/25/24Order Info: 785-1 - CMPOrder Info: [id number] - LIPIDOrder Info: 3 - TSHOrder Info: 3027 - T4F Performed By: #### L 100.0100, L500.4050, L500.4100, L501.9520, L503.0105 ####[facility] [address] [place], [address] CO2 [Moles/Vol] 28.0 mmol/L Normal 21.0-32.0 [facility] Comment on above: Order Comment: Order Date: 04/25/24Order Info: 785- - CMPOrder Info: [id number] - LIPIDOrder Info: 3 - TSHOrder Info: 3027 - T4F Performed By: #### L 100.0100, L500.4050, L500.4100, L501.9520, L503.0105 ####[facility] [address] [place], [address] Creatinine [Mass/Vol] 1.35 mg/dL High 0.70-1.30 [facility] Comment on above: Order Comment: Order Date: 04/25/24Order Info: 86-1 - CMPOrder Info: [id number] - LIPIDOrder Info: 3 - TSHOrder Info: [id number] - T4F Result Comment: The validity of the calculated GFR GFRAA in patients over70 years has not been determined. Clinical correlation isessential. Performed By: #### L 100.0100, L500.4050, L500.4100, L501.9520, L503.0105 ####[facility] [address] [place], [address] EST GFR - AA 64 mL/min Normal >60 [facility] Comment on above: Order Comment: Order Date: 04/25/24Order Info: 86-1 - CMPOrder Info: [id number] - LIPIDOrder Info: [id number] - TSHOrder Info: 3024-7 - T4F Result Comment: Afri can Eritrean GFR Calc Performed By: #### L 100.0100, L500.4050, L500.4100, L501.9520, L503.0105 ####[facility] [address] [place], [address] GAP 4 Low 5-15 [facility] Comment on above: Order Comment: Order Date: 04/25/24Order Info: 86-1 - CMPOrder Info: [id number] - LIPIDOrder Info: 63 - TSHOrder Info: [id number] - T4F Performed By: #### L 100.0100, L500.4050, L500.4100, L501.9520, L503.0105 ####[facility] [address] [place], [address] GFR/1.73 sq M.predicted among non-blacks MDRD (S/P/Bld) [Vol rate/Area] 53 mL/min/{1.73_m2} Low >60 [facility] Comment on above: Order Comment: Order Date: 04/25/24Order Info: 86-1 - CMPOrder Info: [id number] - LIPIDOrder Info: [id number] - TSHOrder Info: 3024-7 - T4F Result Comment: Non- GFR Calc Performed By: #### L 100.0100, L500.4050, L500.4100, L501.9520, L503.0105 ####[facility] [address] [place], [address] Globulin (S) [Mass/Vol] 3.5 g/dL Normal 2.2-4.2 [facility] Comment on above: Order Comment: Order Date: 04/25/24Order Info: 07-1 - CMPOrder Info: [id number] - LIPIDOrder Info: [id number] - TSHOrder Info: 3024-7 - T4F Performed By: #### L 100.0100, L500.4050, L500.4100, L501.9520, L503.0105 ####[facility] [address] [place], [address] Glucose [Mass/Vol] 113 mg/dL High 74-106 [facility] Comment on above: Order Comment: Order Date: 04/25/24Order Info: 785-07 - CMPOrder Info: [id number] - LIPIDOrder Info: 6-3 - TSHOrder Info: 302-7 - T4F Result Comment: Fast ing Glucose result from 100 to 125 mg/dLsuggests IMPAIRED HOMEOSTASIS per A.D.A. criteria. Performed By: #### L 100.0100, L500.4050, L500.4100, L501.9520, L503.0105 ####[facility] [address] [place], [address] Potassium [Moles/Vol] 4.2 mmol/L Normal 3.5-5.1 [facility] Comment on above: Order Comment: Order Date: 04/25/24Order Info: 07-1 - CMPOrder Info: [id number] - LIPIDOrder Info: [id number] - TSHOrder Info: 3024-7 - T4F Performed By: #### L 100.0100, L500.4050, L500.4100, L501.9520, L503.0105 ####[facility] [address] [place], [address] Sodium [Moles/Vol] 138 mmol/L Normal 136-145 [facility] Comment on above: Order Comment: Order Date: 10/04/24Order Info: 86-1 - CMPOrder Info: [id number] - LIPIDOrder Info: [id number] - TSHOrder Info: 3024-01 - T4F Performed By: #### L 100.0100, L500.4050, L500.4100, L501.9520, L503.0105 ####[facility] [address] [place], [address] T PROT 7.4 g/dL Normal 6.4-8.2 [facility] Comment on above: Order Comment: Order Date: 04/25/24Order Info: 86-1 - CMPOrder Info: [id number] - LIPIDOrder Info: [id number] - TSHOrder Info: 3024-01 - T4F Performed By: #### L 100.0100, L500.4050, L500.4100, L501.9520, L503.0105 ####[facility] [address] [place], [address] Urea nitrogen [Mass/Vol] 22 mg/dL High 02-06 [facility] Comment on above: Order Comment: Order Date: 04/25/24Order Info: 785- - CMPOrder Info: [id number] - LIPIDOrder Info: [id number] - TSHOrder Info: 3024-01 - T4F Performed By: #### L 100.0100, L500.4050, L500.4100, L501.9520, L503.0105 ####[facility] [address] [place], [address] Lipid Profileon 05-29-2024 Cholesterol [Mass/Vol] 162 mg/dL Normal 200 [facility] Comment on above: Order Comment: Order Date: 04/25/24Order Info: 86-1 - CMPOrder Info: [id number] - LIPIDOrder Info: [id number] - TSHOrder Info: 7 - T4F Result Comment: <200 mg/dL Desirable 200-240 mg/dL Borderline >240 mg/dL High Risk Performed By: #### L 100.0100, L500.4050, L500.4100, L501.9520, L503.0105 ####[facility] [address] [place], [address] Cholesterol in HDL [Mass/Vol] 81 mg/dL Normal [facility] Comment on above: Order Comment: Order Date: 04/25/24Order Info: [id number] - CMPOrder Info: [id number] - LIPIDOrder Info: 3 - TSHOrder Info: 7 - T4F Result Comment: The drugs N-Acetylcysteine and Metamizole may falselydepress this assay. Reference Range HDL <40 mg/dL Low HDL Cholesterol HDL >or= 60 mg/dL High HDL Cholesterol Performed By: #### L 100.0100, L500.4050, L500.4100, L501.9520, L503.0105 ####[facility] [address] [place], [address] Cholesterol in LDL [Mass/Vol] 67 mg/dL Normal 0-130 [facility] Comment on above: Order Comment: Order Date: 04/25/24Order Info: 86-1 - CMPOrder Info: [id number] - LIPIDOrder Info: [id number] - TSHOrder Info: 7 - T4F Performed By: #### L 100.0100, L500.4050, L500.4100, L501.9520, L503.0105 ####[facility] [address] [place], [address] Cholesterol in VLDL [Mass/Vol] 14 mg/dL Normal 5-40 [facility] Comment on above: Order Comment: Order Date: 04/25/24Order Info: 86-1 - CMPOrder Info: [id number] - LIPIDOrder Info: 3 - TSHOrder Info: 4-7 - T4F Performed By: #### L 100.0100, L500.4050, L500.4100, L501.9520, L503.0105 ####[facility] [address] [place], [address] Triglyceride [Mass/Vol] 68 mg/dL Normal [facility] Comment on above: Order Comment: Order Date: 04/25/24Order Info: 785- - CMPOrder Info: [id number] - LIPIDOrder Info: 6-3 - TSHOrder Info: 3024-7 - T4F Result Comment: The drugs N-Acetylcysteine and Metamizole may falselydepress this assay.Serum Triglycerides Reference Interval Normal <150 mg/dL Borderline high 150 - 199 mg/dL High 200 - 499 mg/dL Very High > or = 500 mg/dL Performed By: #### L 100.0100, L500.4050, L500.4100, L501.9520, L503.0105 ####[facility] [address] [place], [address] T4 Free Directon 05-29-2024 T4 FREE DIRECT 1.83 ng/dL High 0.76-1.46 [facility] Comment on above: Order Comment: Order Date: 04/25/24Order Info: [id number] - CMPOrder Info: - LIPIDOrder Info: 63 - TSHOrder Info: [id number] - T4F Performed By: #### L 506.0400 ####[facility] [address] [facility] [place], [address] Thyroid Stim Hormone (TSH)on 05-29-2024 TSH 0.082 uIU/mL Low 0.358-3.740 [facility] Comment on above: Order Comment: Order Date: 04/25/24Order Info: [id number] - CMPOrder Info: [id number] - LIPIDOrder Info: 6-3 - TSHOrder Info: [id number] - T4F Performed By: #### L 100.0100, L500.4050, L500.4100, L501.9520, L503.0105 ####[facility] [address] [place], [address] Vitamin B12on 05-29-2024 Cobalamin (Vitamin B12) [Mass/Vol] 271 pg/mL Normal 211-911 [facility] Comment on above: Order Comment: Order Date: 04/25/24Order Info: [id number] - B12 Performed By: #### L 100.0100, L500.4050, L500.4100, L501.9520, L503.0105 ####[facility] [address] [place], [address] Thyroidon 05-01-2024 Thyroid Normal [facility] Hemoglobin A1con 04-28-2024 HbA1c (Bld) [Mass fraction] 6.0 % High 3.8-5.6 [facility] Comment on above: Order Comment: ADD O N A1C Result Comment: Norm al < 5.7 % Prediabetic 5.7 - 6.4 % Diabetic >or= 6.5 % Please note range changes. Performed By: #### L 100.0100, L506.0400, L503.0105, L501.9985, L500.4050, L501.9520, L500.4100 ####[facility] [address] [place], [address] CBC W/Diff, Automatedon Absolute Lymph 0.82 X10 3/uL Low 0.83-4.51 [facility] Comment on above: Performed By: #### L 100.0100, L506.0400, L503.0105, L501.9985, L500.4050, L501.9520, L500.4100 ####[facility] [address] [place], [address] Absolute Neut 3.5 X10 3/uL Normal 2.0-7.7 [facility] Comment on above: Performed By: #### L 100.0100, L506.0400, L503.0105, L501.9985, L500.4050, L501.9520, L500.4100 ####[facility] [address] [place], [address] Basophils/100 WBC (Bld) 1.2 % High 0-1 [facility] Comment on above: Performed By: #### L 100.0100, L506.0400, L503.0105, L501.9985, L500.4050, L501.9520, L500.4100 ####[facility] [address] [place], [address] Eosinophils/100 WBC (Bld) 4.5 % Normal 0-5 [facility] Comment on above: Performed By: #### L 100.0100, L506.0400, L503.0105, L501.9985, L500.4050, L501.9520, L500.4100 ####[facility] [address] [place], [address] Erythrocyte distribution width (RBC) [Ratio] 13.3 % Normal 11.6-14.6 [facility] Comment on above: Performed By: #### L 100.0100, L506.0400, L503.0105, L501.9985, L500.4050, L501.9520, L500.4100 ####[facility] [address] [place], [address] Hematocrit (Bld) [Volume fraction] 45.6 % Normal 40-54 [facility] Comment on above: Performed By: #### L 100.0100, L506.0400, L503.0105, L501.9985, L500.4050, L501.9520, L500.4100 ####[facility] [address] [place], [address] Hemoglobin (Bld) [Mass/Vol] 14.4 g/dL Normal 13.0-16.5 [facility] Comment on above: Performed By: #### L 100.0100, L506.0400, L503.0105, L501.9985, L500.4050, L501.9520, L500.4100 ####[facility] [address] [place], [address] IG% 0.600 Normal 0.0-0.9 [facility] Comment on above: Result Comment: IG% - Immature Granulocytes (promyelocytes, myelocytes andmetamyelocytes) > 1% indicates that a LEFT SHIFT is Present. Performed By: #### L 100.0100, L506.0400, L503.0105, L501.9985, L500.4050, L501.9520, L500.4100 ####[facility] [address] [place], [address] Lymphocytes/100 WBC (Bld) 16.1 % Low 19-41 [facility] Comment on above: Performed By: #### L 100.0100, L506.0400, L503.0105, L501.9985, L500.4050, L501.9520, L500.4100 ####[facility] [address] [place], [address] MCH (RBC) [Entitic mass] 29.9 pg Normal 27.0-32.0 [facility] Comment on above: Performed By: #### L 100.0100, L506.0400, L503.0105, L501.9985, L500.4050, L501.9520, L500.4100 ####[facility] [address] [place], [address] MCHC (RBC) [Mass/Vol] 31.6 g/dL Low 32-36 [facility] Comment on above: Performed By: #### L 100.0100, L506.0400, L503.0105, L501.9985, L500.4050, L501.9520, L500.4100 ####[facility] [address] [place], [address] MCV (RBC) [Entitic vol] 94.8 fL High 80-94 [facility] Comment on above: Performed By: #### L 100.0100, L506.0400, L503.0105, L501.9985, L500.4050, L501.9520, L500.4100 ####[facility] [address] [place], [address] Monocytes/100 WBC (Bld) 8.1 % Normal 0-10 [facility] Comment on above: Performed By: #### L 100.0100, L506.0400, L503.0105, L501.9985, L500.4050, L501.9520, L500.4100 ####[facility] [address] [place], [address] Neutrophils/100 WBC (Bld) 69.5 % Normal 47-70 [facility] Comment on above: Performed By: #### L 100.0100, L506.0400, L503.0105, L501.9985, L500.4050, L501.9520, L500.4100 ####[facility] [address] [place], [address] Nucleated RBC (Bld) [#/Vol] 0 10*3/uL Normal 0-5 [facility] Comment on above: Performed By: #### L 100.0100, L506.0400, L503.0105, L501.9985, L500.4050, L501.9520, L500.4100 ####[facility] [address] [place], [address] Platelet mean volume (Bld) [Entitic vol] 10.5 fL Normal 6.2-12.0 [facility] Comment on above: Performed By: #### L 100.0100, L506.0400, L503.0105, L501.9985, L500.4050, L501.9520, L500.4100 ####[facility] [address] [place], [address] Platelets (Bld) [#/Vol] 161 10*3/uL Normal 150-450 [facility] Comment on above: Performed By: #### L 100.0100, L506.0400, L503.0105, L501.9985, L500.4050, L501.9520, L500.4100 ####[facility] [address] [place], [address]( RBC (Bld) [#/Vol] 4.81 10*6/uL Normal 4.6-6.2 [facility] Comment on above: Performed By: #### L 100.0100, L506.0400, L503.0105, L501.9985, L500.4050, L501.9520, L500.4100 ####[facility] [address] [place], [address](986) RDW SD 46.3 fl High 35.1-43.9 [facility] Comment on above: Performed By: #### L 100.0100, L506.0400, L503.0105, L501.9985, L500.4050, L501.9520, L500.4100 ####[facility] [address] [place], [address] WBC (Bld) [#/Vol] 5.1 10*3/uL Normal 4.4-11.0 [facility] Comment on above: Performed By: #### L 100.0100, L506.0400, L503.0105, L501.9985, L500.4050, L501.9520, L500.4100 ####[facility] [address] [place], [address] Comprehensive Metabolic Prof ilon 04-25-2024 Albumin [Mass/Vol] 3.5 g/dL Normal 3.2-5.0 [facility] Comment on above: Order Comment: N Performed By: #### L 100.0100, L506.0400, L503.0105, L501.9985, L500.4050, L501.9520, L500.4100 ####[facility] [address] [place], [address] Albumin/Globulin [Mass ratio] 1.0 {ratio} Normal 0.9-2.4 [facility] Comment on above: Order Comment: N Performed By: #### L 100.0100, L506.0400, L503.0105, L501.9985, L500.4050, L501.9520, L500.4100 ####[facility] [address] [place], [address] ALK P 108 U/L Normal 45-117 [facility] Comment on above: Order Comment: N Performed By: #### L 100.0100, L506.0400, L503.0105, L501.9985, L500.4050, L501.9520, L500.4100 ####[facility] [address] [place], [address] ALT [Catalytic activity/Vol] 20 U/L Normal 16-61 [facility] Comment on above: Order Comment: N Performed By: #### L 100.0100, L506.0400, L503.0105, L501.9985, L500.4050, L501.9520, L500.4100 ####[facility] [address] [place], [address] AST [Catalytic activity/Vol] 21 U/L Normal 15-37 [facility] Comment on above: Order Comment: N Performed By: #### L 100.0100, L506.0400, L503.0105, L501.9985, L500.4050, L501.9520, L500.4100 ####[facility] [address] [place], [address] Bilirubin [Mass/Vol] 0.60 mg/dL Normal 0.20-1.00 [facility] Comment on above: Order Comment: N Result Comment: For patients on eltrombopag therapy, use of Dimension [place] TBIL is not recommended. Performed By: #### L 100.0100, L506.0400, L503.0105, L501.9985, L500.4050, L501.9520, L500.4100 ####[facility] [address] [place], [address] BUN/CRE 15.1 RATIO Normal 10-20 [facility] Comment on above: Order Comment: N Performed By: #### L 100.0100, L506.0400, L503.0105, L501.9985, L500.4050, L501.9520, L500.4100 ####[facility] [address] [place], [place], [phone] CA,Total 9.7 mg/dL Normal 8.5-10.1 [facility] Comment on above: Order Comment: N Performed By: #### L 100.0100, L506.0400, L503.0105, L501.9985, L500.4050, L501.9520, L500.4100 ####[facility] [address] [place], [address] Chloride [Moles/Vol] 105 mmol/L Normal 98-107 [facility] Comment on above: Order Comment: N Performed By: #### L 100.0100, L506.0400, L503.0105, L501.9985, L500.4050, L501.9520, L500.4100 ####[facility] [address] [place], [address] CO2 [Moles/Vol] 28.0 mmol/L Normal 21.0-32.0 [facility] Comment on above: Order Comment: N Performed By: #### L 100.0100, L506.0400, L503.0105, L501.9985, L500.4050, L501.9520, L500.4100 ####[facility] [address] [place], [place], [phone] Creatinine [Mass/Vol] 1.26 mg/dL Normal 0.70-1.30 [facility] Comment on above: Order Comment: N Result Comment: The validity of the calculated GFR GFRAA in patients over70 years has not been determined. Clinical correlation isessential. Performed By: #### L 100.0100, L506.0400, L503.0105, L501.9985, L500.4050, L501.9520, L500.4100 ####[facility] [address] [place], [address] EST GFR - AA 70 mL/min Normal >60 [facility] Comment on above: Order Comment: N Result Comment: Afri can [place] GFR Calc Performed By: #### L 100.0100, L506.0400, L503.0105, L501.9985, L500.4050, L501.9520, L500.4100 ####[facility] [address] [place], [address] GAP 5 Normal 5-15 [facility] Comment on above: Order Comment: N Performed By: #### L 100.0100, L506.0400, L503.0105, L501.9985, L500.4050, L501.9520, L500.4100 ####[facility] [address] [place], [address] GFR/1.73 sq M.predicted among non-blacks MDRD (S/P/Bld) [Vol rate/Area] 58 mL/min/{1.73_m2} Low >60 [facility] Comment on above: Order Comment: N Result Comment: Non- GFR Calc Performed By: #### L 100.0100, L506.0400, L503.0105, L501.9985, L500.4050, L501.9520, L500.4100 ####[facility] [address] [place], [address] Globulin (S) [Mass/Vol] 3.5 g/dL Normal 2.2-4.2 [facility] Comment on above: Order Comment: N Performed By: #### L 100.0100, L506.0400, L503.0105, L501.9985, L500.4050, L501.9520, L500.4100 ####[facility] [address] [place], [address] Glucose [Mass/Vol] 117 mg/dL High 74-106 [facility] Comment on above: Order Comment: N Result Comment: Fast ing Glucose result from 100 to 125 mg/dLsuggests IMPAIRED HOMEOSTASIS per A.D.A. criteria. Performed By: #### L 100.0100, L506.0400, L503.0105, L501.9985, L500.4050, L501.9520, L500.4100 ####[facility] [address] [place], [address] Potassium [Moles/Vol] 4.0 mmol/L Normal 3.5-5.1 [facility] Comment on above: Order Comment: N Performed By: #### L 100.0100, L506.0400, L503.0105, L501.9985, L500.4050, L501.9520, L500.4100 ####[facility] [address] [place], [address] Sodium [Moles/Vol] 137 mmol/L Normal 136-145 [facility] Comment on above: Order Comment: N Performed By: #### L 100.0100, L506.0400, L503.0105, L501.9985, L500.4050, L501.9520, L500.4100 ####[facility] [address] [place], [address] T PROT 7.0 g/dL Normal 6.4-8.2 [facility] Comment on above: Order Comment: N Performed By: #### L 100.0100, L506.0400, L503.0105, L501.9985, L500.4050, L501.9520, L500.4100 ####[facility] [address] [place], [address] Urea nitrogen [Mass/Vol] 19 mg/dL High 7-18 [facility] Comment on above: Order Comment: N Performed By: #### L 100.0100, L506.0400, L503.0105, L501.9985, L500.4050, L501.9520, L500.4100 ####[facility] [address] [place], [address] Lipid Profileon 04-25-2024 Cholesterol [Mass/Vol] 216 mg/dL High 200 [facility] Comment on above: Order Comment: N Result Comment: <200 mg/dL Desirable 200-240 mg/dL Borderline >240 mg/dL High Risk Performed By: #### L 100.0100, L506.0400, L503.0105, L501.9985, L500.4050, L501.9520, L500.4100 ####[facility] [address] [place], [address] Cholesterol in HDL [Mass/Vol] 74 mg/dL Normal [facility] Comment on above: Order Comment: N Result Comment: The drugs N-Acetylcysteine and Metamizole may falselydepress this assay. Reference Range HDL <40 mg/dL Low HDL Cholesterol HDL >or= 60 mg/dL High HDL Cholesterol Performed By: #### L 100.0100, L506.0400, L503.0105, L501.9985, L500.4050, L501.9520, L500.4100 ####[facility] [address] [place], [address] Cholesterol in LDL [Mass/Vol] 103 mg/dL Normal 0-130 [facility] Comment on above: Order Comment: N Performed By: #### L 100.0100, L506.0400, L503.0105, L501.9985, L500.4050, L501.9520, L500.4100 ####[facility] [address] [place], [place], [phone] Cholesterol in VLDL [Mass/Vol] 39 mg/dL Normal 5-40 [facility] Comment on above: Order Comment: N Performed By: #### L 100.0100, L506.0400, L503.0105, L501.9985, L500.4050, L501.9520, L500.4100 ####[facility] [address] [place], [phone] Triglyceride [Mass/Vol] 196 mg/dL Normal [facility] Comment on above: Order Comment: N Result Comment: The drugs N-Acetylcysteine and Metamizole may falselydepress this assay.Serum Triglycerides Reference Interval Normal <150 mg/dL Borderline high 150 - 199 mg/dL High 200 - 499 mg/dL Very High > or = 500 mg/dL Performed By: #### L 100.0100, L506.0400, L503.0105, L501.9985, L500.4050, L501.9520, L500.4100 ####[facility] [address] [place], [place], [phone] T4 Free Directon 04-25-2024 T4 FREE DIRECT 0.64 ng/dL Low 0.76-1.46 [facility] Comment on above: Order Comment: N Performed By: #### L 100.0100, L506.0400, L503.0105, L501.9985, L500.4050, L501.9520, L500.4100 ####[facility] [address] [place], [address] Thyroid Stim Hormone (TSH)on 04-25-2024 TSH 9.250 uIU/mL High 0.358-3.740 [facility] Comment on above: Order Comment: N Performed By: #### L 100.0100, L506.0400, L503.0105, L501.9985, L500.4050, L501.9520, L500.4100 ####[facility] [address] [facility] [place], [place], [id number] Vitamin B12on 04-25-2024 Cobalamin (Vitamin B12) [Mass/Vol] 327 pg/mL Normal 211-911 [facility] Comment on above: Performed By: #### L 100.0100, L506.0400, L503.0105, L501.9985, L500.4050, L501.9520, L500.4100 ####[facility] [address] [facility] [place], [place], [id number] Vital Signs Date Time Vital Sign Value Performing Clinician Facility 02-06-2025 15:00-0400 Body temperature 97.8 [degF] Dr. Alberto Mustafa MD Work Phone: [facility] 02-06-2025 15:00-0400 Diastolic blood pressure 87 mm[Hg] Dr. Alberto Mustafa MD Work Phone: [facility] 02-06-2025 15:00-0400 Heart rate 74 /min Dr. Alberto Mustafa MD Work Phone: [facility] 02-06-2025 15:00-0400 Inhaled oxygen flow rate 3 L/min Dr. Alberto Mustafa MD Work Phone: [facility] 02-06-2025 15:00-0400 Respiratory rate 18 /min Dr. Alberto Mustafa MD Work Phone: [facility] 02-06-2025 15:00-0400 SaO2% (BldA) [Mass fraction] 97 % Dr. Alberto Mustafa MD Work Phone: 2(688)113-425056 [address] 02-06-2025 15:00-0400 Systolic blood pressure 137 mm[Hg] Dr. Alberto Mustafa MD Work Phone: 8(592)390-156823 [place] [address] 02-06-2025 11:49-0400 Body height 182.[address] Alberto Mustafa MD Work Phone: 3(469)524-062064 [place] [address] 02-06-2025 11:49-0400 Body weight [address] Alberto Mustafa MD Work Phone: 1(682)509-692664 [place] [address] 02-06-2025 06:00-0400 Body mass index (BMI) [Ratio] 30.7 kg/m2 Dr. Alberto Mustafa MD Work Phone: 5(881)481-397664 [place] [address] 01-31-2025 08:00-0400 Inhaled oxygen concentration 50 % Dr. Alberto Mustafa MD Work Phone: 8(965)291-372864 [place] [address] 01-30-2025 21:32-0400 Body temperature 102.4 [degF] Dr. Alberto Mustafa MD Work Phone: 7(704)580-485823 [place] [address] 01-30-2025 21:05-0400 Diastolic blood pressure 87 mm[Hg] Dr. Alberto Mustafa MD Work Phone: 3(383)570-018064 [place] [address] 01-30-2025 21:05-0400 Heart rate 118 /min Dr. Alberto Mustafa MD Work Phone: 9(421)749-557064 [place] [address] 01-30-2025 21:05-0400 Respiratory rate 20 /min Dr. Alberto Mustafa MD Work Phone: 3(645)304-249664 [place] [address] 01-30-2025 21:05-0400 SaO2% (BldA) [Mass fraction] 96 % Dr. Alberto Mustafa MD Work Phone: 3(352)850-294664 [place] [address] 01-30-2025 21:05-0400 Systolic blood pressure 118 mm[Hg] Dr. Alberto Mustafa MD Work Phone: 1(718)990-671623 [place] [address] 01-30-2025 21:00-0400 Inhaled oxygen flow rate 2 L/min Dr. Alberto Mustafa MD Work Phone: 9(837)479-664623 [place] [address] 01-30-2025 18:01-0400 Body height 190.[address] Alberto Mustafa MD Work Phone: 4(565)922-599423 [place] [address] 01-30-2025 18:01-0400 Body mass index (BMI) [Ratio] 27.9 kg/m2 Dr. Alberto Mustafa MD Work Phone: 1(861)518-182023 [place] [address] 01-30-2025 18:01-0400 Body weight 101.[address] Alberto Mustafa MD Work Phone: 5(073)682-803223 [place] [address] 01-08-2025 20:19-0400 Body temperature 98.7 [degF] Dr. Alberto Mustafa MD Work Phone: 9(658)691-011864 [place] [address] 01-08-2025 20:19-0400 Diastolic blood pressure 78 mm[Hg] Dr. Alberto Mustafa MD Work Phone: 4(897)200-371964 [place] [address] 01-08-2025 20:19-0400 Heart rate 85 /min Dr. Alberto Mustafa MD Work Phone: 4(746)036-397323 [place] [address] 01-08-2025 20:19-0400 Respiratory rate 16 /min Dr. Alberto Mustafa MD Work Phone: 4(244)325-324864 [place] [address] 01-08-2025 20:19-0400 SaO2% (BldA) [Mass fraction] 94 % Dr. Alberto Mustafa MD Work Phone: 9(246)682-301323 [place] [address] 01-08-2025 20:19-0400 Systolic blood pressure 145 mm[Hg] Dr. Alberto Mustafa MD Work Phone: [facility] 01-07-2025 15:19-0400 Body height 190.[address] Alberto Mustafa MD Work Phone: 4(296)076-529423 [place] [address] 01-07-2025 15:19-0400 Body weight 89.[address] Alberto Mustafa MD Work Phone: 6(545)728-502823 [place] [address] 01-07-2025 14:10-0400 Inhaled oxygen flow rate 2 L/min Dr. Alberto Mustafa MD Work Phone: [facility] 01-05-2025 14:42-0400 Body mass index (BMI) [Ratio] 24.7 kg/m2 Dr. Alberto Mustafa MD Work Phone: 6(207)135-649923 [place] [address] 01-02-2025 09:36-0400 Body height 190.[address] Alberto Mustafa MD Work Phone: 0(166)357-861164 [place] [address] 01-02-2025 09:36-0400 Body weight 89.[address] Alberto Mustafa MD Work Phone: 3(266)186-794464 [place] [address] 01-02-2025 09:00-0400 Body temperature 100.9 [degF] Dr. Alberto Mustafa MD Work Phone: 8(026)272-982264 [place] [address] 01-02-2025 09:00-0400 Diastolic blood pressure 109 mm[Hg] Dr. Alberto Mustafa MD Work Phone: 7(981)952-286364 [place] [address] 01-02-2025 09:00-0400 Heart rate 111 /min Dr. Alberto Mustafa MD Work Phone: 6(313)358-082064 [place] [address] 01-02-2025 09:00-0400 Respiratory rate 18 /min Dr. Alberto Mustafa MD Work Phone: 2(127)290-448764 [place] [address] 01-02-2025 09:00-0400 SaO2% (BldA) [Mass fraction] 92 % Dr. Alberto Mustafa MD Work Phone: 9(352)252-235464 [place] [address] 01-02-2025 09:00-0400 Systolic blood pressure 125 mm[Hg] Dr. Alberto Mustafa MD Work Phone: 3(170)107-130164 [place] [address] 01-02-2025 02:53-0400 Body mass index (BMI) [Ratio] 24.7 kg/m2 Dr. Alberto Mustafa MD Work Phone: 2(214)217-914264 [place] [address] 01-02-2025 01:00-0400 Body temperature 99.2 [degF] Dr. Alberto Mustafa MD Work Phone: 3(336)176-897764 [place] [address] 01-02-2025 01:00-0400 Diastolic blood pressure 85 mm[Hg] Dr. Alberto Mustafa MD Work Phone: [facility] 01-02-2025 01:00-0400 Heart rate 116 /min Dr. Alberto Mustafa MD Work Phone: 6(442)554-781764 [place] [address] 01-02-2025 01:00-0400 Respiratory rate 18 /min Dr. Alberto Mustafa MD Work Phone: 7(068)392-336364 [place] [address] 01-02-2025 01:00-0400 SaO2% (BldA) [Mass fraction] 96 % Dr. Alberto Mustafa MD Work Phone: 7(929)080-610864 [place] [address] 01-02-2025 01:00-0400 Systolic blood pressure 132 mm[Hg] Dr. Alberto Mustafa MD Work Phone: 8(684)437-881764 [place] [address] 01-01-2025 15:12-0400 Body height 190.[address] Alberto Mustafa MD Work Phone: 1(476)820-068264 [place] [address] 01-01-2025 15:12-0400 Body mass index (BMI) [Ratio] 25.6 kg/m2 Dr. Alberto Mustafa MD Work Phone: 5(838)671-247964 [place] [address] 01-01-2025 15:12-0400 Body weight [address] Alberto Mustafa MD Work Phone: 9(823)153-695364 [place] [address] 12-31-2024 20:58-0400 Body temperature 97.8 [degF] Dr. Alberto Mustafa MD Work Phone: 3(089)385-426464 [place] [address] 12-31-2024 20:58-0400 Diastolic blood pressure 74 mm[Hg] Dr. Alberto Mustafa MD Work Phone: 6(994)318-918364 [place] [address] 12-31-2024 20:58-0400 Heart rate 89 /min Dr. Alberto Mustafa MD Work Phone: 6(070)517-666264 [place] [address] 12-31-2024 20:58-0400 Respiratory rate 16 /min Dr. Alberto Mustafa MD Work Phone: 4(421)232-577723 [place] [address] 12-31-2024 20:58-0400 SaO2% (BldA) [Mass fraction] 96 % Dr. Alberto Mustafa MD Work Phone: [facility] 12-31-2024 20:58-0400 Systolic blood pressure 112 mm[Hg] Dr. Alberto Mustafa MD Work Phone: [facility] 12-31-2024 19:02-0400 Body mass index (BMI) [Ratio] 28 kg/m2 Dr. Alberto Mustafa MD Work Phone: [phone](862)[phone] [place] [address] 12-31-2024 19:02-0400 Body weight 101.[address] Alberto Mustafa MD Work Phone: 3(407)[phone] [address] 12-31-2024 15:46-0400 Body height 190.[address] Alberto Mustafa MD Work Phone: 8(750)[phone] [address] 12-31-2024 11:30-0400 Body temperature 98.6 [degF] Dr. Alberto Mustafa MD Work Phone: 4(290)[phone] [place] [address] 12-31-2024 11:30-0400 Respiratory rate 16 /min Dr. Alberto Mustafa MD Work Phone: 3(789)[phone] [place] [address] 12-24-2024 09:23-0400 Body temperature 96.6 [degF] Dr. Alberto Mustafa MD Work Phone: [facility] 12-24-2024 09:23-0400 Diastolic blood pressure 63 mm[Hg] Dr. Alberto Mustafa MD Work Phone: [facility] 12-24-2024 09:23-0400 Heart rate 72 /min Dr. Alberto Mustafa MD Work Phone: [facility] 12-24-2024 09:23-0400 Respiratory rate 18 /min Dr. Alberto Mustafa MD Work Phone: [facility] 12-24-2024 09:23-0400 Systolic blood pressure 124 mm[Hg] Dr. Alberto Mustafa MD Work Phone: [phone] [place] [address] 12-03-2024 13:22-0400 Body temperature 97 [degF] Dr. Alberto Mustafa MD Work Phone: [facility] 12-03-2024 13:22-0400 Diastolic blood pressure 68 mm[Hg] Dr. Alberto Mustafa MD Work Phone: [facility] 12-03-2024 13:22-0400 Heart rate 78 /min Dr. Alberto Mustafa MD Work Phone: 2(872)844-168956 [address] 12-03-2024 13:22-0400 Respiratory rate 18 /min Dr. Alberto Mustafa MD Work Phone: 7(930)346-825723 [place] [address] 12-03-2024 13:22-0400 Systolic blood pressure 133 mm[Hg] Dr. Alberto Mustafa MD Work Phone: 4(834)620-638164 [place] [address] 10-21-2024 00:35-0400 Body temperature 96.7 [degF] Dr. Alberto Mustafa MD Work Phone: 6(413)[phone] [place] [address] 10-21-2024 00:35-0400 Diastolic blood pressure 54 mm[Hg] Dr. Alberto Mustafa MD Work Phone: 3(359)380-605956 [address] 10-21-2024 00:35-0400 Heart rate 59 /min Dr. Alberto Mustafa MD Work Phone: 4(291)732-906864 [place] [address] 10-21-2024 00:35-0400 Respiratory rate 18 /min Dr. Alberto Mustafa MD Work Phone: 4(719)473-277156 [address] 10-21-2024 00:35-0400 Systolic blood pressure 161 mm[Hg] Dr. Alberto Mustafa MD Work Phone: 0(847)106-948223 [place] [address] 10-15-2024 12:16-0400 Body temperature 96.7 [degF] Dr. Alberto Mustafa MD Work Phone: 9(146)774-999523 [place] [address] 10-15-2024 12:16-0400 Diastolic blood pressure 54 mm[Hg] Dr. Alberto Mustafa MD Work Phone: 1(564)061-227823 [place] [address] 10-15-2024 12:16-0400 Heart rate 59 /min Dr. Alberto Mustafa MD Work Phone: [facility] 10-15-2024 12:16-0400 Respiratory rate 18 /min Dr. Alberto Mustafa MD Work Phone: [facility] 10-15-2024 12:16-0400 Systolic blood pressure 161 mm[Hg] Dr. Alberto Mustafa MD Work Phone: 2(292)155-271556 [address] 09-19-2024 16:34-0500 Body temperature 97.9 [degF] Dr. Alberto Mustafa MD Work Phone: 3(225)092-979323 [place] [address] 09-19-2024 16:34-0500 Diastolic blood pressure 74 mm[Hg] Dr. Alberto Mustafa MD Work Phone: 7(750)693-586156 [address] 09-19-2024 16:34-0500 Heart rate 65 /min Dr. Alberto Mustafa MD Work Phone: 2(722)125-291823 [place] [address] 09-19-2024 16:34-0500 Respiratory rate 16 /min Dr. Alberto Mustafa MD Work Phone: [facility] 09-19-2024 16:34-0500 SaO2% (BldA) [Mass fraction] 96 % Dr. Alberto Mustafa MD Work Phone: [facility] 09-19-2024 16:34-0500 Systolic blood pressure 133 mm[Hg] Dr. Alberto Mustafa MD Work Phone: 2(613)449-143823 [place] [address] 09-19-2024 06:00-0500 Body mass index (BMI) [Ratio] 23.6 kg/m2 Dr. Alberto Mustafa MD Work Phone: [facility] 09-19-2024 06:00-0500 Body weight [address] Alberto Mustafa MD Work Phone: 8(156)341-560156 [address] 09-17-2024 10:45-0500 Body height 190.[address] Alberto Mustafa MD Work Phone: 2(057)[phone] [place] [address] Encounters Encounter Date Encounter Type Care Provider Facility Start: 02-06-2025 Dr. Dusty Abad MD -[facility] Work Phone: Start: 02-05-2025 Dr. Dusty Abad MD -[facility] Work Phone: Start: 02-04-2025 Dr. Dusty Abad MD -[facility] Work Phone: Start: 02-03-2025 Dr. Demetrius Nash DO -[place] [facility] Work Phone: Start: 02-02-2025 Dr. Demetrius Nash DO -[place] [facility] Work Phone: Start: 02-01-2025 Dr. Demetrius Nash DO [facility] Work Phone: Start: 01-31-2025 Dr. Demetrius Nash DO -[place] [facility] Work Phone: Start: 01-30-2025 ambulatory Alex Espino Fac ility:[facility] Start: 01-30-2025 End: 02-06-2025 Evaluation and management of inpatient Dr. Alex Espino DO -Intensive Care Unit Work Phone: Start: 01-30-2025 End: 02-06-2025 Dr. Dusty Abad MD -Medical Surgical 3 Work Phone: Start: 01-29-2025 ambulatory [facility] Facility: [facility] Start: 01-29-2025 Registered Referred Philip Shanks [facility] Start: 01-29-2025 Philip Shanks [facility] Start: 01-21-2025 ambulatory Jaden Raleigh Facility: [facility] Start: 01-08-2025 Non-patient / Non-visit Dr. Dusty Abad MD -[place] [facility] Work Phone: Start: 01-08-2025 Dr. Dusty Abad MD -[facility] Work Phone: Start: 01-07-2025 Non-patient / Non-visit Dr. Dusty Abad MD -[place] [facility] Work Phone: Start: 01-07-2025 Dr. Dusty Abad MD -[facility] Work Phone: Start: 01-06-2025 Non-patient / Non-visit Dr. Dusty Abad MD [facility] Work Phone: Start: 01-06-2025 Dr. Dusty Yanes [facility] Work Phone: Start: 01-05-2025 Non-patient / Non-visit Dr. Dusty Abad MD [facility] Work Phone: Start: 01-05-2025 Dr. Dusty Yanes [facility] Work Phone: Start: 01-04-2025 Non-patient / Non-visit Dr. Sofia Lopez MD [facility] Work Phone: Start: 01-04-2025 Dr. Sofia Lopez MD [facility] Work Phone: Start: 01-03-2025 Non-patient / Non-visit Dr. Sofia Lopez MD [facility] Work Phone: Start: 01-03-2025 Dr. Sofia Lopez MD [facility] Work Phone: Start: 01-02-2025 [facility] Facility: [facility] Start: 01-02-2025 Non-patient / Non-visit Dr. Booker worthy MD -[facility] Start: 01-02-2025 Dr. Kana Birmingham MD [facility] Start: 01-02-2025 Non-patient / Non-visit Dr. Mei Mckenzie DO [facility] Work Phone: Start: 01-02-2025 Dr. Mei Greenberg [facility] Work Phone: Start: 01-02-2025 Non-patient / Non-visit Dr. Mei Mckenzie DO [facility] Work Phone: Start: 01-02-2025 Dr. Mei [facility] Work Phone: Start: 01-02-2025 ambulatory Mei Mckenzie Facility:[facility] Start: 01-01-2025 ambulatory Mei Mckenzie [facility] [...] [facility] Work Phone: Start: 12-31-2024 End: 01-19-2025 Dr. Booker Rodríguez DO -Emer[facility] nt Work Phone: Start: 12-24-[address] Jaden bucio DPM -[facility] Center Work Phone: Start: 12-17-2024 End: 12-17-[address] Alberto Mustafa MD Work Phone: [facility] Work Phone: Start: 12-17-2024 End: 12-17-[address] Michael Meeks MD -[facility] [place] Work Phone: Start: 12-17-[address] Michael matta MD -[facility] [place] Work Phone: Start: 12-17-2024 End: 12-17-2024 Dr. Michael Meeks MD -[facility] Work Phone: Start: 12-16-2024 End: 12-17-2024 ambulatory Michael HUNT Facility:[facility] Start: 12-16-[address] Michael Morneo [facility] [place] Work Phone: Start: 12-16-2024 [facility] [place] Work Phone: Start: 12-03-2024 End: 12-20-[address] Alberto Mustafa MD Work Phone: [facility] Work Phone: Start: 12-03-2024 End: 12-20-[address] Jaden Forman DPM -Wound Healing nt Work Phone: Start: 12-03-[address] Jaden bucio DPM -Wound Healing [place] Work Phone: Start: 12-03-2024 End: 12-20-2024 Dr. Jaden Forman DPM -Wound Healing [facility] Work Phone: Start: 11-26-2024 End: 11-26-[address] Michael [facility] [place] Work Phone: Start: 11-26-[address] Michael Moreno [facility] [place] Work Phone: Start: 11-26-2024 End: 11-26-2024 Dr. Michael [facility] [place] Work Phone: Start: 11-26-2024 End: 11-26-2024 ambulatory Michael HUNT Facility:[facility] Start: 11-24-2024 End: 11-24-[address] Alberto Mustafa MD Work Phone: [facility] Work Phone: Start: 11-24-2024 End: 11-24-[address] Michael [facility] [place] Work Phone: Start: 11-24-[address] Michael Muller [place] Work Phone: Start: 11-24-2024 End: 11-24-2024 Dr. Michael [place] [place] Work Phone: Start: 11-24-2024 End: 11-24-2024 ambulatory Michael HUNT Facility:[facility] Start: 11-05-2024 End: 11-05-[address] Alberto Mustafa MD Work Phone: [facility] Work Phone: Start: 11-05-2024 End: 11-05-[address] Michael Mull[facility] [place] Work Phone: Start: 11-05-[address] Michael Muller [place] Work Phone: Start: 11-05-2024 End: 11-05-2024 Dr. Michael [facility] [place] Work Phone: Start: 11-05-2024 End: 11-05-2024 ambulatory Michael HUNT Facility:[facility] Start: 10-27-2024 End: 10-27-[address] Alberto Mustafa MD Work Phone: [facility] Work Phone: Start: 10-27-2024 End: 10-27-[address] Michael Mull[facility] [place] Work Phone: Start: 10-27-2024 End: 10-27-2024 Dr. Michael [facility] [place] Work Phone: Start: 10-27-2024 End: 10-27-2024 ambulatory Michael HUNT Facility:[facility] Start: 10-22-2024 End: 11-19-[address] Jaden Forman DPM -Wound Healing Ce nter Work Phone: Start: 10-22-[address] Jaden bucio DPM -[facility] Center Work Phone: Start: 10-22-2024 End: 11-19-2024 Dr. Jaden Forman DPM -Wound Healing [place] [facility] Work Phone: Start: 10-22-2024 End: 11-19-2024 ambulatory Jaden Forman Facility:[facility] Start: 10-15-2024 End: 10-20-[address] Alberto Mustafa MD Work Phone: [facility] Work Phone: Start: 10-15-2024 End: 10-20-[address] Jaden Forman DPM -W[facility] Healing Ce nter Work Phone: Start: 10-15-2024 End: 10-20-2024 Dr. Jaden Forman DPM -Wound He[facility] [place] [facility] Work Phone: Start: 09-24-2024 End: 09-24-[address] Alberto Mustafa MD Work Phone: [facility] Work Phone: Start: 09-24-2024 End: 09-24-[address] Michael Meeks MD -[facility] [place] [facility] Work Phone: Start: 09-24-[address] Michael matta MD -[facility] [place] Work Phone: Start: 09-24-2024 End: 09-24-2024 Dr. Michael Meeks MD -[place] [place] Work Phone: Start: 09-24-2024 End: 09-24-2024 ambulatory Michael HUNT Facility:[facility] Start: 09-22-2024 End: 09-22-[address] Alberto Mustafa MD Work Phone: [facility] Work Phone: Start: 09-22-2024 End: 09-22-[address] Michael Meeks MD -[facility] [place] Work Phone: Start: 09-22-[address] Michael matta MD -[facility] [place] Work Phone: Start: 09-22-2024 End: 09-22-2024 Dr. Michael Meeks MD -[facility] [place] Work Phone: Start: 09-22-2024 End: 09-22-2024 ambulatory Michael Constantino HUNT Facility:[facility] Start: 09-19-2024 Non-patient / Non-visit Dr. Demetrius Barreto [facility] Work Phone: Start: 09-19-2024 Dr. Demetrius Nash [facility] Work Phone: Start: 09-18-2024 Non-patient / Non-visit Dr. Demetrius Barreto [facility] Work Phone: Start: 09-18-2024 Dr. Demetrius Nash [facility] Work Phone: Start: 09-17-2024 Non-patient / Non-visit Dr. Demetrius Barreto [facility] Work Phone: Start: 09-17-2024 Dr. Demetrius Nash [facility] Work Phone: Start: 09-17-2024 ambulatory Alberto Mustafa Facilit y:[facility] Start: 09-17-2024 Non-patient / Non-visit Dr. Grace Lockhart MD -[facility] Start: 09-17-2024 Dr. Kamari Lockhart MD [facility] Start: 09-16-2024 End: 09-19-2024 ambulatory Altaf Meeks Facility:[facility] Start: 09-16-2024 End: 09-19-2024 Evaluation and management of inpatient Dr. Demetrius Nash DO -Medical Surgical 3 Work Phone: Start: 09-16-2024 End: 09-19-2024 Dr. Demetrius Nash DO -Medical Surgical 3 Work Phone: Start: 09-16-2024 End: 09-16-[address] Alberto Mustafa MD -Laboratory, [facility] Start: 09-16-2024 End: 09-16-2024 Dr. Alberto Mustafa MD -Laboratory [facility] Start: 09-16-2024 End: 09-16-2024 ambulatory Alberto Mustafa Facility:[facility] Start: 07-22-2024 End: 07-22-[address] Alberto Mustafa MD -Laboratory, [facility] Start: 07-22-2024 End: 07-22-2024 ambulatory Alberto Mustafa Facility:[facility] Start: 07-03-2024 End: 07-03-[address] Alberto Mustafa MD -Laboratory, [facility] Start: 07-03-2024 End: 07-03-2024 ambulatory Alberto Mustafa Facility:[facility] Start: 05-29-2024 End: 05-29-2024 ambulatory [facility] Niru Mustafa Facility:[facility] Start: 05-01-2024 End: 05-01-2024 [facility] Start: 04-25-2024 End: 04-25-2024 [facility] Procedures Date Procedure Procedure Detail Performing Clinician Start: 02-06-2025 Blood count smear mc rscp w/mnl difrntl wbc count Dr. Alberto Mustafa MD Work Phone: Start: 02-06-[address] Alberto Mustafa MD Work Phone: Start: 02-06-2025 Flow cytometry cell surf marker techl only 1st Dr. Alberto Mustafa MD Work Phone: Start: 02-06-2025 Mean corpuscular hem oglobin concentration determination Dr. Alberto Mustafa MD Work Phone: Start: 02-06-2025 Myelocyte percent differential count Dr. Alberto Mustafa MD Work Phone: Start: 02-06-2025 Platelet mean volume determination Dr. Alberto Mustafa MD Work Phone: Start: 02-05-2025 Plain chest X-ray Dr. Briana Mustafa MD Work Phone: Start: 02-04-2025 Chloride measurement, urine Dr. Alberto Mustafa MD Work Phone: Start: 02-02-2025 C>3< complement assay D andrew Mustafa MD Work Phone: Start: 01-31-[address] Alberto Mustafa MD Work Phone: Start: 01-30-[address] Janette Mustafa MD Work Phone: Start: 01-30-2025 Complete ultrasound of kidneys and bladder Dr. Alberto Mustafa MD Work Phone: Start: 01-30-2025 Urine microscopy: red cells Dr. Alberto Mustafa MD Work Phone: Start: 01-30-2025 Urnls dip stick/tabl et reagent auto microscopy Dr. Alberto Mustafa MD Work Phone: Start: 01-30-2025 Plain chest X-ray Dr. Briana Mustafa MD Work Phone: Start: 01-30-2025 Calculation of international normalized ratio Dr. Alberto Mustafa MD Work Phone: Start: 01-30-[address] Alberto Mustafa MD Work Phone: Start: 01-30-2025 Flow cytometry cell surf marker techl only 1st Dr. Alberto Mustafa MD Work Phone: Start: 01-30-2025 Serum inorganic phos phate measurement Dr. Alberto Mustafa MD Work Phone: Start: 01-30-[address] Alberto Mustafa MD Work Phone: Start: 01-30-[address] Alberto Mustafa MD Work Phone: Start: 01-08-2025 Blood count smear mc rscp [...] Alberto Mustafa MD Work Phone: Start: 01-05-[address] Alberto Mustafa MD Work Phone: Start: 01-05-2025 Gram stain microscopy Ramandeep Mustafa MD Work Phone: Start: 01-05-2025 End: 01-05-2025 Microbial culture, routine Dr. Alberto nick MD Work Phone: Start: 01-05-[address] Janette Mustafa MD Work Phone: Start: 01-03-2025 Anaerobic microbial [...] Work Phone: Start: 01-02-2025 Gram stain microscopy Ramandeep Mustafa MD Work Phone: Start: 01-02-2025 End: 01-02-2025 Microbial culture, routine Dr. Alberto nick MD Work Phone: Start: 01-02-2025 Nucleic acid [...] Treatment Date Care Activity Detail Author Start: 02-06-2025 Patient discharge [facility] Start: 02-04-2025 Consultation [facility] Start: 02-04-2025 Oxygen therapy [facility] Start: 02-03-2025 Wound care [facility] Start: 02-02-2025 Care planning and problem solving actions [facility] Start: 02-02-2025 End: 02-02-2025 [facility] Start: 02-02-2025 Referral to potato chip frier [facility] Start: 01-31-2025 Speech therapy assessment [facility] Start: 01-30-2025 Following clinical pathway protocol [facility] Start: 01-30-2025 Peripherally inserted central catheter care [facility] Start: 01-30-2025 Assessment of risk of venous thromboembolism [facility] Start: 01-30-2025 Elevation of head of bed [facility] Start: 01-30-2025 Insertion of catheter into peripheral vein [facility] Start: 01-30-2025 Measuring intake and output [facility] Start: 01-30-2025 Providing care according to standard [facility] Start: 01-30-2025 Referral to occupational therapist [facility] Start: 01-30-2025 Referral to service [facility] Start: 01-30-2025 Vital signs measurements [facility] Start: 01-30-2025 [facility] Start: 01-30-2025 Complete ultrasound of kidneys and bladder Kidney and Bladder [facility] Start: 01-30-2025 US Kidney - bilateral and Urinary bladder [facility] Start: 01-30-2025 Verification routine [facility] Start: 01-30-2025 Admission procedure [facility] Start: 01-30-2025 Hospital admission, emergency, from emergency room, medical nature [facility] Start: 01-30-2025 End: 01-30-2025 [facility] Start: 01-30-2025 Bacteria identified in Blood by Culture Blood Culture [facility] Start: 01-30-2025 Bacteria identified in Urine by Culture Urine Culture [facility] Start: 01-30-2025 Consultation [facility] Start: 01-30-2025 Patient referral to dietitian [facility] Start: 01-08-2025 Patient discharge [facility] Start: 01-06-2025 Care planning and problem solving actions [facility] Start: 01-06-2025 Blood culture [facility] Start: 01-06-2025 [facility] Start: 01-05-2025 Acid fast bacilli culture [facility] Start: 01-05-2025 Mycology culture [facility] Start: 01-05-2025 Source specific culture [facility] Start: 01-05-2025 Incision and drainage of abscess Incision,Drainage Abscess (Left) [facility] Start: 01-05-2025 Acid Fast Bacilli Culture Acid Fast Bacilli Culture [facility] Start: 01-05-2025 Acid Fast Bacilli Smear Acid Fast Bacilli Smear [facility] Start: 01-05-2025 Anaerobic microbial culture [facility] Start: 01-05-2025 Blood culture [facility] Start: 01-05-2025 Fungal Culture Fungal Culture [facility] Start: 01-05-2025 Fungal Smear Fungal Smear [facility] Start: 01-05-2025 Microbial culture, routine [facility] Start: 01-05-2025 End: 01-05-2025 [facility] Start: 01-04-2025 Application of intermittent pneumatic compression device [facility] Start: 01-03-2025 [facility] Start: 01-03-2025 End: 01-03-2025 [facility] Start: 01-02-2025 Bacteria identified in Blood by Culture Blood Culture [facility] Start: 01-02-2025 Respiratory Panel (PCR) Respiratory Panel (PCR) [facility] Start: 01-02-2025 Wound Culture Wound Culture [facility] Start: 01-02-2025 [facility] Start: 01-02-2025 CBC W Auto Differential panel - Blood [facility] Start: 01-02-2025 Comprehensive metabolic 2000 panel - Serum or Plasma [facility] Start: 01-02-2025 Hemoglobin A1c/Hemoglobin.total in Blood [facility] Start: 01-02-2025 Magnesium measurement [facility] Start: 01-02-2025 Serum inorganic phosphate measurement [facility] Start: 01-02-2025 Thyroid stimulating hormone measurement [facility] Start: 01-02-2025 Consultation [facility] Start: 01-02-2025 Following clinical pathway protocol [facility] Start: 01-02-2025 Assessment of risk of venous thromboembolism [facility] Start: 01-02-2025 Care regimes management [facility] Start: 01-02-2025 Consultation for treatment [facility] Start: 01-02-2025 Elevation of affected extremity [facility] Start: 01-02-2025 Incentive spirometry [facility] Start: 01-02-2025 Insertion of catheter into peripheral vein [facility] Start: 01-02-2025 Measuring intake and output [facility] Start: 01-02-2025 Notification of physician [facility] Start: 01-02-2025 Oxygen therapy [facility] Start: 01-02-2025 Patient referral to dietitian [facility] Start: 01-02-2025 Providing care according to standard [facility] Start: 01-02-2025 Provision of activity privileges [facility] Start: 01-02-2025 Referral to occupational therapist [facility] Start: 01-02-2025 Referral to ophthalmic pathologist [facility] Start: 01-02-2025 Referral to service [facility] Start: 01-02-2025 Speech therapy assessment [facility] Start: 01-02-2025 Wound care [facility] Start: 01-02-2025 End: 01-02-2025 [facility] Start: 01-02-2025 Patient referral to dietitian [facility] Start: 01-01-2025 End: 01-01-2025 Bacterial nucleic acid assay [facility] Start: 01-01-2025 End: 01-01-2025 [facility] Start: 01-01-2025 Verification routine [facility] Start: 01-01-2025 Admission procedure [facility] Start: 01-01-2025 [facility] Start: 01-01-2025 End: 01-01-2025 [facility] Start: 01-01-2025 Bacteria identified in Blood by Culture Blood Culture [facility] Start: 01-01-2025 Bacteria identified in Urine by Culture Urine Culture [facility] Start: 01-01-2025 Blood culture Blood Culture [facility] Start: 01-01-2025 SARS-CoV-2 Antigen (Rapid) SARS-CoV-2 Antigen (Rapid) [facility] Start: 12-31-2024 [facility] [facility] Start: 09-19-2024 Patient discharge [facility] Start: 09-16-2024 Consultation for treatment [facility] Start: 09-16-2024 Following clinical pathway protocol [facility] Start: 09-16-2024 Assessment of risk of venous thromboembolism [facility] Start: 09-16-2024 Insertion of catheter into peripheral vein [facility] Start: 09-16-2024 Measuring intake and output [facility] Start: 09-16-2024 Oxygen therapy [facility] Start: 09-16-2024 Providing care according to standard [facility] Start: 09-16-2024 Provision of activity privileges [facility] Start: 09-16-2024 Referral to occupational therapist [facility] Start: 09-16-2024 Referral to service [facility] Start: 09-16-2024 [facility] Start: 09-16-2024 Admission procedure [facility] Start: 09-16-2024 [facility] Start: 09-16-2024 Referral to service [facility] Start: 09-16-2024 [facility] Start: 09-16-2024 Patient referral to dietitian [facility] Bacteria identified in Unspecified specimen by Anaerobe culture [facility] Fungus identified in Unspecified specimen by Culture [facility] Fungus identified in Unspecified specimen by Fungus stain [facility] Mycobacterium sp samira ntified in Unspecified specimen by Organism specific culture [facility] Patient Education [facility] Work Phone: Patient referral [facility] Work Phone: Respiratory pathogen s DNA and RNA panel - Respiratory specimen by LILY with probe detection [facility] SARS-CoV-2 (COVID-19 ) Ag [Presence] in Respiratory specimen by Rapid immunoassay [facility] Urine culture [facility] Urine culture [facility] Vancomycin [Mass/vol ume] in Serum or Plasma --trough [facility] Wound microscopy, cu lture and sensitivities [facility] Immunizations Immunization Date Immunization Notes Care Provider Fa cility 12-31-2024 tetanus toxoid, redu jean pierre diphtheria toxoid, and acellular pertussis vaccine, adsorbed Dr. Alberto Mustafa MD Work Phone: [facility] Payers Date Payer Category Payer Medicare [id number] Self-pay 2024 Unknown [id number] Unknown [id number] 2.16.8 40.1.566199.3.579.2.462 Unknown [id number] 2.16.8 40.1.266445.3.579.2.462 Unknown [id number] 2.16.8 40.1.052872.3.579.2.462 Unknown [id number] 2.16.8 40.1.352745.3.579.2.462 Unknown [id number] 2.16.8 40.1.418894.3.579.2.462 Unknown [id number] 2.16.8 40.1.748928.3.579.2.462 Unknown [id number] 2.16.8 40.1.801684.3.579.2.462 Unknown [id number] 2.16.8 40.1.710318.3.579.2.462 Unknown [id number] 2.16.8 40.1.836506.3.579.2.462 Unknown [id number] 2.16.8 40.1.577122.3.579.2.462 Unknown [id number] 2.16.8 40.1.122593.3.579.2.462 Unknown [id number] 2.16.8 40.1.954522.3.579.2.462 Unknown [id number] 2.16.8 40.1.646923.3.579.2.462 Unknown [id number] 2.16.8 40.1.727842.3.579.2.462 Unknown [id number] 2.16.8 40.1.831480.3.579.2.462 Unknown [id number] 2.16.8 40.1.830174.3.579.2.462 Unknown [id number] 2.16.8 40.1.600070.3.579.2.462 Unknown [id number] 2.16.8 40.1.321028.3.579.2.462 Unknown [id number] 2.16.8 40.1.568234.3.579.2.462 Unknown [id number] 2.16.8 40.1.432729.3.579.2.462 Unknown [id number] 2.16.8 40.1.465111.3.579.2.462 Unknown [id number] 2.16.8 40.1.406264.3.579.2.462 Unknown [id number] 2.16.8 40.1.441206.3.579.2.462 Unknown [id number] 2.16.8 40.1.504461.3.579.2.462 Unknown [id number] 2.16.8 40.1.581569.3.579.2.462 Unknown [id number] 2.16.8 40.1.931690.3.579.2.462 Unknown [id number] 2.16.8 40.1.068861.3.579.2.462 Unknown [id number] 2.16.8 40.1.139928.3.579.2.462 Unknown [id number] 2.16.8 40.1.470295.3.579.2.462 Unknown [id number] 2.16.8 40.1.018630.3.579.2.462 Unknown [id number] 2.16.8 40.1.956057.3.579.2.462 Unknown [id number] 2.16.8 40.1.827356.3.579.2.462 Unknown [id number] 2.16.8 40.1.391252.3.579.2.462 Unknown [id number] 2.16.8 40.1.535053.3.579.2.462 Unknown [id number] 2.16.8 40.1.245109.3.579.2.462 Unknown [id number] 2.16.8 40.1.500596.3.579.2.462 Unknown [id number] 2.16.8 40.1.089790.3.579.2.462 Unknown [id number] 2.16.8 40.1.873201.3.579.2.462 Unknown [id number] 2.16.8 40.1.074894.3.579.2.462 Unknown [id number] 2.16.8 40.1.470156.3.579.2.462 Unknown [id number] 2.16.8 40.1.073266.3.579.2.462 Unknown [id number] 2.16.8 40.1.349293.3.579.2.462 Unknown [id number] 2.16.8 40.1.018482.3.579.2.462 Unknown [id number] 2.16.8 40.1.292766.3.579.2.462 Unknown [id number] 2.16.8 40.1.359553.3.579.2.462 Unknown [id number] 2.16.8 40.1.952325.3.579.2.462 Unknown [id number] 2.16.8 40.1.341982.3.579.2.462 Social History Date Type Detail Facility Start: 09-16-2024 End: 01-30-2025 Tobacco smoking status NHIS Never smoked tobacco (finding) [facility] Start: 10-21-2024 End: 11-18-2024 Sex Male (finding) [facility] Start: 1935 Sex Assigned At Male [facility] Goals Date Patient Goal Desired Activity /State Functional Status Date Assessment Result Facility 02-06-2025 Functional status Chair [facility] Work Phone: 01-08-2025 Functional status Ambulates [facility] Work Phone: 01-02-2025 Functional status Activity Ability Bedres t [facility] Work Phone: 09-19-2024 Functional status Assist with Urinal [facility] Work Phone: Mental Status Date Assessment Result Facility 02-06-2025 Cognitive function Voice/Name [facility] Work Phone: 01-30-2025 Cognitive function Level Of Cons ciousness Awake;Alert;Follows Commands [facility] Work Phone: 01-08-2025 Cognitive function Touch/Shaking [facility] Work Phone: 01-06-2025 Cognitive function Flat [facility] Work Phone: 01-02-2025 Cognitive function Voice/Name [facility] Work Phone: 01-01-2025 Cognitive function Level Of Cons ciousness Awake;Alert;Inappropriate;Diso riented [facility] Work Phone: 09-19-2024 Cognitive function Voice/Name [facility] Work Phone: Clinical Notes 09-16-2024 to 02-06-2025 Note Date & Type Note Facility 02-06-2025 Discharge summary Note Date/Time February 06, 2025 1:20pm [facility] Medical Records Department [address] [place] [address] Discharge Summary 02/06/25 1317 MR#: [id number] Acct: [id number] Name: GANESH RAZO Rep #:[id number] : 1935 89 From: Dusty Sabillon PCP: Dr. Michael Meeks DO Status:ADM IN Location: [place] [address] Providers Date of Admission: 01/30/25 Primary Care Physician: Dr. Michael Meeks DO Consultations 02/02/25 08:07 Consult: Nephrology Routine Consulting Provider: Jane Wall Reason for Consult: renal failyure EMERGENT Consult: No MD Notified: Yes Date Notified: 02/02/25 Time Notified: 08:37 Method of Notification: Answering Service 02/04/25 11:02 Consult: Infectious Disease Routine Consulting Provider: Juanjo Arias Reason for Consult: MRSA left foot O/bactermia in 12/2024, CASEY, Vanc changed to zyvox EMERGENT Consult: No MD Notified: Yes Date Notified: 02/04/25 Time Notified: 11:02 Method of Notification: Text Reason For Visit: UROSEPSIS W/ NEW ONSET AFIB W/ RVR Diagnosis Discharge Diagnosis (1) Sepsis: Status: Acute Code(s): A41.9 - Sepsis, unspecified organism Plan This 89-year-old gentleman admitted with altered mental status, had low blood pressure in the beginning but high blood pressure now from fdc and CASEY. 1. Sepsis secondary to acute cystitis-patient's urine culture grew out Klebsiella pneumonia sensitive to several different antibiotics, cefdinir changed to IV ceftriaxone. ID consult reviewed. Continue linezolid to stop date 02/16/2025. 02/06: Overall hospital course and plan discussed with the patient's daughter, POA. Rest as mentioned above. Patient completed treatment for Klebsiella UTI 7days first, IV Zosyn changed to ceftriaxone/cefdinir. Continue linezolid admission level 2. Paroxysmal atrial fibrillation-patient is in A-fib. Blood pressure is high. IV labetalol as needed ordered. Heart rate controlled. On Eliquis 2.5 mg twice daily 01/29 blood pressure is controlled. 127/87 3. Dementia-patient has advanced dementia. 4. Acute anemia-etiology unclear, 02/05: Leukocytosis resolved. ANC elevated, manual 89%, ALC low. Metamyelocyte 2%. H&H 8.9/27% % 02/06 H&H 8.9/26.3%. #5. Dehydration-BUN/creatinine ratio 8.5 low, clinically patient does not have dehydration. Dehydration corrected #6 essential hypertension-patient was placed on Norvasc. 02/04 blood pressure is high. On labetalol. Started on scheduled carvedilol 02/05 blood pressure is controlled, systolic 130s. #7 acute renal failure-likely secondary to vancomycin usage for his MRSA bacteremia 02/04: E Learning Manager is following. His creatinine is going up suspected ATN with BUN/creatinine ratio less than 20. Urine osmolality and electrolytes ordered. 02/05: Creatinine went up to 4.63. Discussed with the potato chip frier. NonoliguricATN, presumably ATN. Urine studies shows osmolality 286, random microalbumin 26.2, protein elevated 12.3. Protein creatinine ratio 374. 02/06: Creatinine slightly up but is stabilizing. Discussed with potato chip frier evelia. It has increased from 4.27-4.7 for the last 4 days therefore stabilizing. Discussed with daughter in detail. Monitor kidney function/,BMP twice a week, next on 02/10/2025. #8 MRSA bacteremia-ID consult reviewed. Repeat blood cultures negative on 01/30/2025. stop date for linezolid 02/08/2025 during previous hospitalization he had workup which showed no vegetation on [place]. DVT prophylaxis: On Eliquis 2.5 mg twice daily Medications at Discharge Home Medications levothyroxine 150 mcg tablet 150 mcg PO DAILY 01/01/25 insulin lispro 100 unit/mL subcutaneous pen (Humalog KwikPen (U-100) Insulin) See Protocol subcut TIDAC #0 mL 01/08/25 sennosides 8.6 mg-docusate sodium 50 mg tablet (Stimulant Laxative Plus) 2 tab PO BID #0 tabs 01/08/25 acetaminophen 325 mg tablet 650 mg (2 x 325 mg) PO Q6H PRN PRN Pain 1-10 Or Fever>100.7 #0 tabs 02/06/25 amlodipine 10 mg tablet 10 mg PO DAILY #0 tabs 02/06/25 apixaban 5 mg tablet (Eliquis) 2.5 mg (1/2 x 5 mg) PO BID #0 tabs 02/06/25 carvedilol 12.5 mg tablet 12.5 mg PO BIDCM #0 tabs 02/06/25 linezolid 600 mg tablet 600 mg PO BID #0 tabs 02/06/25 quetiapine 25 mg tablet 25 mg PO QHS #0 tabs 02/06/25 Physical Exam Narrative Seen and examined. No fever. Discussed with the potato chip frier for increasing creatinine. Nonoliguric CASEY probably progressing to ATN. Patient had 500 mL urine output today. Patient was admitted in December 2024 for left foot ulcer and at that time was discharged on vancomycin for MRSA bacteremia after complete workup as per ID recommendation. Blood pressure is controlled. Discussed with the daughter. Patient has low functional status and needs help for ADL including feeding, transfers and movement. Physical exam General: Alert, Oriented x3, Cooperative HEENT: Atraumatic, PERRLA, EOMI, Normocephalic. Oral: No Gingival or Mucosal Lesions/ Ulcerations Neck: Supple, No JVD, Negative Carotid Bruits Chest wall/Lungs: Air entry diminished in bilateral lung bases. No crepitation/rhonchi Cardiovascular: Irregular rate and rhythm, No M/G/R Abdomen: Bowel Sounds Present, Soft, Non Tender, Non-Distended : Holguin catheter. No renal angle tenderness. No suprapubic tenderness. Extremities: Mild edema Skin: Left foot bandage. Left foot ulcer status post excision and primary closure in December 2025 Musculoskeletal: ROM limited at knees and hip joints. Decreased muscle mass. No Tenderness to Palpation of Joints or Extremities Neurological: Cranial nerves II-XII grossly intact, DTR 2+/4. No acute focal neurological deficit. Psych/Mental Status: Normal Affect, Appropriate. Weight / BMI Weight Weight: 227 lb 1.218 oz Body Mass Index (BMI) 30.7 ABG / Lab / Microbiology Data 02/06/25 06:40 02/06/25 06:40 Laboratory: Laboratory Results - last 24 hr 02/06/25 06:40: WBC 12.0 H, RBC 2.85 L, Hgb 8.9 L, Hct 26.3 L, MCV 92.3, MCH 31.2, MCHC 33.8, RDW Std Deviation 43.7, RDW Coeff of Gary 13.1, Plt Count 194, MPV 9.2, Neut % (Auto) Not Reportable, Absolute Neuts (auto) 10.7 H, Absolute Lymphs (auto) 0.12 L, Total Counted 100, Neutrophils % (Manual) 88 H, Band Neutrophils % 1, Lymphocytes % (Manual) 1 L, Monocytes % (Manual) 4, Eosinophils% (Manual) 2, Metamyelocytes % 1, Myelocytes % 3 H, Platelet Estimate ADEQUATE, RBC Morphology NORM C+C, Sodium 138, Potassium 3.9, Chloride 105, Carbon Kluwsdl61.2, Anion Gap 11, BUN 41 H, Creatinine 4.74 H, Estim Creat Clear Calc 13.37 L,Est GFR (MDRD) Non-Af 11 L, BUN/Creatinine Ratio 8.6 L, Glucose 131 H, Calcium 8.2 Microbiology: Microbiology 01/30/25 18:25 Blood Culture (Wb) - Left Hand Blood Culture - Final No growth in 5 days. 01/30/25 23:25 Blood Culture (Wb) - Left Forearm Blood Culture - Final No growth in 5 days. 01/30/25 19:15 Urine, Catheterized Urine Culture - Final Klebsiella pneumoniae sp pneum 01/31/25 02:00 Mucosa - Nasopharyngeal Respiratory Panel (PCR) - Final Radiography Diagnostic Testing: Radiology Impression Chest X-Ray 02/05/25 16:15 IMPRESSION: 1. New airspace and interstitial opacities bilaterally since 01/30/2025, which may represent infection, edema, and/or lung injury. 2. Probable bilateral pleural effusions. Reading Location: [id number] D/C Instructions DC O2, CPAP, BIPAP Needs Home O2 Discharge instructions: Yes Type of respiratory needs?: Oxygen Oxygen frequency: Continuous Continuous oxygen liters per minute: 2 DC home with Oxygen: Yes Home O2 Review: I have reviewed the oxygen testing, and the patient qualifies for home oxygen equipment and portability. The patient is mobile in the home and the community. Meaningful Use Info Meaningful Use Meaningful Use Diagnoses (Choose all that apply): None applicable Discharge Plan Admission Admit Date/Time: 01/30/25 21:28 Primary Reason for Your Visit: CASEY, Nephrotoxicty, left foot OM Attending Provider: Dusty Abad Primary Care Provider: Michael Meeks Consulting Providers: Alex Espino; Jane Wall; Demetrius Nash; Juanjo Arias Discharge Orders/Prescriptions Prescriptions: New acetaminophen 325 mg Tablet 650 mg PO Q6H PRN PRN (Reason: Pain 1-10 Or Fever>100.7) Qty: 0 0RF quetiapine 25 mg Tablet 25 mg PO QHS Qty: 0 0RF carvedilol 12.5 mg Tablet 12.5 mg PO BIDCM Qty: 0 0RF linezolid 600 mg Tablet 600 mg PO BID Qty: 0 0RF Rx Instructions: Stop date 02/16/2025 amlodipine 10 mg Tablet 10 mg PO DAILY Qty: 0 0RF Rx Instructions: Hold for SBP less than 130 mmHg Eliquis 5 mg Tablet 2.5 mg PO BID Qty: 0 0RF Continued levothyroxine 150 mcg tablet 150 mcg PO DAILY insulin lispro [Humalog KwikPen Insulin] 100 unit/mL [...] 2 tab PO BID Qty: 0 0RF Discontinued meloxicam 7.5 mg tablet 7.5 mg PO DAILY terbinafine HCl 250 mg tablet 250 mg PO DAILY vancomycin 1.25 gram recon soln 1.25 g IV Q24H 39 Days Rx Instructions: stop date 02/16/25. Dx: foot osteomyelitis. Weekly bmp, cbc, esr, and vanc trough. Fax to [phone]. Routine picc care per protocol. acetaminophen 500 mg tablet 1,000 mg PO TID 30 Days Qty: 0 0RF Referrals / Follow Up: Jane Wall MD [Med Staff - Consulting] - Within 2 Weeks Juanjo Arias MD [Med Staff - Active Staff] - Within 1 Month Michael Meeks DO [Primary Care Provider] - Disposition Disposition (needs filled in before D/C Order can be placed): [facility] Charges/Coding Visit Charges Inpatient E&M: 05871 Disch Hosp >30min 02/06/25 1320 <Electronically signed by Dusty Abad MD> Cosigner Signature (if applicable): CC: Dr. Jane Wall MD; Dr. Dusty Abad MD; Dr. Juanjo Arias MD;Dr. Michael Meeks DO~ Signed [facility] Work Phone: 1(934) 165-586707-18-2025 Discharge summary Author Dusty Abad [facility] Note Date/Time February 06, 2025 1:16 pm [facility] Medical Records Department [address] [place] [id number] Transfer to [facility] MR#: [id number] Acct: [id number] Name: GANESH RAZO Rep #:[id number] : 1935 89 From: Dusty Sabillon PCP: Dr. Michael Meeks DO Status:ADM IN Certification of patient admission REQUIRED AT TIME OF ADMISSION. I CERTIFY THAT [facility] ARE REQUIRED TO BE GIVEN ON AN IN-PATIENT BASIS BECAUSE OF THE ABOVE NAMED PATIENT'S NEED FOR JAIL CARE ON A CONTINUING BASIS FOR THE CONDITION(S) FOR WHICH HE/SHE WAS RECEIVING IN-PATIENT HOSPITAL SERVICES PRIOR TO HIS/HER TRANSFER TO THE [facility]. 02/06/25 1316<Electronically signed by Dusty Abad MD> Diet Diet Order/Speech Therapy: INPATIENT Hospital Diet / Speech Therapy Order(s) 02/06/25 12:51 Diet: Regular - General Type of Dietary Supplement:: Magic Cup Dessert Diet Comments: magic cup w/ lunch and dinner Speech Therapy Comments: Feed Routine Orders/Code Status Suppository Type: Dulcolax 10mg Suppository Frequency: Daily PRN Routine Lab Work: BMP (TWICE week on Sunday and Sunday, next on 02/10) DC O2, CPAP, BIPAP needs Home O2 Discharge instructions: Yes Type of respiratory needs?: Oxygen Oxygen frequency: Continuous Continuous oxygen liters per minute: 2 Wound(s) left foot: Wound Type: Surgical Incision Dressing Change: betadine Adaptic Therapies Extremity Affected:: Bilateral Lower Physical Therapy: Eval and Treat Occupational Therapy: Eval and Treat Speech Therapy: Eval and Treat Problem/Diagnosis (1) Sepsis: Status: Acute Code(s): A41.9 - Sepsis, unspecified organism Plan This 89-year-old gentleman admitted with altered mental status, had low blood pressure in the beginning but high blood pressure now from fdc and CASEY. 1. Sepsis secondary to acute cystitis-patient's urine culture grew out Klebsiella pneumonia sensitive to several different antibiotics, cefdinir changed to IV ceftriaxone. ID consult reviewed. Continue linezolid to stop date 02/16/2025. 2. Paroxysmal atrial fibrillation-patient is in A-fib. Blood pressure is high. IV labetalol as needed ordered. Heart rate controlled. On Eliquis 2.5 mg twice daily 3. Dementia-patient has advanced dementia. 4. Acute anemia-etiology unclear, 02/05: Leukocytosis resolved. ANC elevated, manual 89%, ALC low. Metamyelocyte 2%. H&H 8.9/27% % #5. Dehydration-BUN/creatinine ratio 8.5 low, clinically patient does not have dehydration. Dehydration corrected #6 essential hypertension-patient was placed on Norvasc. 02/04 blood pressure is high. On labetalol. Started on scheduled carvedilol 02/05 blood pressure is controlled, systolic 130s. #7 acute renal failure-likely secondary to vancomycin usage for his MRSA bacteremia 02/04: E Learning Manager is following. His creatinine is going up suspected ATN with BUN/creatinine ratio less than 20. Urine osmolality and electrolytes ordered. 02/05: Creatinine went up to 4.63. Discussed with the potato chip frier. NonoliguricATN, presumably ATN. Urine studies shows osmolality 286, random microalbumin 26.2, protein elevated 12.3. Protein creatinine ratio 374. #8 MRSA bacteremia-ID consult reviewed. Repeat blood cultures negative on 01/30/2025. stop date for linezolid 02/08/2025 7/send during previous hospitalization he had workup which showed no vegetation on [place]. DVT prophylaxis: On Eliquis 2.5 mg twice daily 02/04/25 17:03: WBC 12.3 H, RBC 3.12 L, Hgb 9.8 L, Hct 29.3 L, MCV 93.9, MCH 31.4, MCHC 33.4, RDW Std Deviation 44.0 H, RDW Coeff of Gary 12.9, Plt Count 193,MPV 9.0, Neut % (Auto) Not Reportable, Absolute Neuts (auto) 11.4 H, Absolute Lymphs (auto) 0.25 L, Total Counted 100, Neutrophils % (Manual) 85 H, Band Neutrophils % 8 H, Lymphocytes % (Manual) 2 L, Monocytes % (Manual) 1, Metamyelocytes % 2 H, Myelocytes % 2 H, Platelet Estimate ADEQUATE 02/04/25 20:00: Urine Osmolality 286, Ur Random Microalbumin 26.2, U Random Total Protein 12.3 H, Ur Random Sodium 97, Urine Creatinine 32.90 L, Protein/Creatinin Ratio 374 H, Urine Potassium 15.2, Urine Chloride 92 02/05/25 05:37: WBC 11.0, RBC 2.87 L, Hgb 8.9 L, Hct 26.9 L, MCV 93.7, MCH 31.0,MCHC 33.1, RDW Std Deviation 43.7, RDW Coeff of Gary 12.8, Plt Count 177, MPV 9.4, Neut % (Auto) Not Reportable, Absolute Neuts (auto) 9.8 H, Absolute Lymphs (auto) 0.76 L, Total Counted 100, Neutrophils % (Manual) 89 H, Lymphocytes % (Manual) 7 L, Monocytes % (Manual) 1, Eosinophils % (Manual) 1, Metamyelocytes %2 H, Platelet Estimate ADEQUATE, RBC Morphology NORM C+C, Sodium 139, Potassium 3.7, Chloride 106, Carbon Dioxide 23.1, Anion Gap 10, BUN 38 H, Creatinine 4.62 H, Estim Creat Clear Calc 13.74 L, Est GFR (MDRD) Non-Af 12 L, BUN/Creatinine Ratio 8.2 L, Glucose 122 H, Calcium 8.1 Allergies/Procedures Done in Hospital Allergies shellfish derived Allergy (Verified 01/01/25 15:16) unknown Type of Care/Length of Stay Estimated LOS: Convalescent Care Less Than 30 days Type of Care Needed: Skilled Rehab Potential: Fair Prognosis: Fair Additional Orders/Day of Discharge Day of Discharge: 02/06/25 Dietary and Speech Recommendations Dietitian Recommendations/Changes: Continue regular diet per DIRECTOR OF CARDIOLOGY SERVICE LINE recommendations. Will order 120ml EPHP TID with meals. Will monitor weight trends. Discharge Plan Admission Admit Date/Time: 01/30/25 21:28 Primary Reason for Your Visit: CASEY, Nephrotoxicty, left foot OM Attending Provider: Dusty Abad Primary Care Provider: Michael Meeks Consulting Providers: Alex Espino; Jane Wall; Demetrius Nash; Juanjo Arias Discharge Orders/Prescriptions Prescriptions: New acetaminophen 325 mg Tablet 650 mg PO Q6H PRN PRN (Reason: Pain 1-10 Or Fever>100.7) Qty: 0 0RF quetiapine 25 mg Tablet 25 mg PO QHS Qty: 0 0RF carvedilol 12.5 mg Tablet 12.5 mg PO BIDCM Qty: 0 0RF linezolid 600 mg Tablet 600 mg PO BID Qty: 0 0RF Rx Instructions: Stop date 02/16/2025 amlodipine 10 mg Tablet 10 mg PO DAILY Qty: 0 0RF Rx Instructions: Hold for SBP less than 130 mmHg Eliquis 5 mg Tablet 2.5 mg PO BID Qty: 0 0RF Continued levothyroxine 150 mcg tablet 150 mcg PO DAILY insulin lispro [Humalog KwikPen Insulin] 100 unit/mL [...] 2 tab PO BID Qty: 0 0RF Discontinued meloxicam 7.5 mg tablet 7.5 mg PO DAILY terbinafine HCl 250 mg tablet 250 mg PO DAILY vancomycin 1.25 gram recon soln 1.25 g IV Q24H 39 Days Rx Instructions: stop date 02/16/25. Dx: foot osteomyelitis. Weekly bmp, cbc, esr, and vanc trough. Fax to [phone]. Routine picc care per protocol. acetaminophen 500 mg tablet 1,000 mg PO TID 30 Days Qty: 0 0RF Referrals / Follow Up: Michael Meeks DO [Primary Care Provider] - Jane Wall MD [Med Staff - Consulting] - Within 2 Weeks Juanjo Arias MD [Med Staff - Active Staff] - Within 1 Month Disposition Disposition (needs filled in before D/C Order can be placed): Senior Care Facility 02/06/25 1316 <Electronically signed by Dusty Abad MD> Cosigner Signature (if applicable): CC: Dr. Alex Espino DO; Dr. Jane Wall MD; Dr. Demetrius Nash DO; Dr. Juanjo Arias MD; Dr. Michael Meeks DO ~ [facility] Work Phone: 1(450) 735-573307-18-2025 [facility]07-17-2025 Progress note Author [facility] Note Date/Time February 05, 2025 3:32 pm [facility] Medical Records Department [address] [place] [address] Progress Note - Hospitalist 02/05/25 1526 MR#: [id number] Acct: [id number] Name: GANESH RAZO Rep #:[id number] : 1935 89 From: Dusty Sabillon PCP: Dr. Michael Meeks DO Status:ADM IN Location: [place] [id number] Reason for Visit Chief Complaint: Confusion and elevated BP Objective Data Objective Data Vital Signs: Vital Signs Temp Pulse Resp BP Pulse Ox O2 Del Method O2 Flow Rate 98.8 F 80 18 139/94 H 96 Nasal Cannula 2 02/05/25 14:50 02/05/25 15:18 02/05/25 14:50 02/05/25 14:50 02/05/25 14:50 02/05/25 15:18 02/05/25 14:50 FiO2 50 01/31/25 08:00 Oxygen Flow Rate (L/min) 2 Oxygen Delivery Method Nasal Cannula Weight: 227 lb 15.327 oz Body Mass Index (BMI) 30.9 Intake & Output: Intake and Output for Last 24 Hours 02/03/25 02/04/25 02/05/25 23:59 23:59 23:59 Intake Total 1875 / 2075 2815.00 / 3015.00 1718.75 / 1718.75 Output Total 1475 / 1825 2500 / 2500 1025 / 1025 Balance 400 / 250 315.00 / 515.00 693.75 / 693.75 Lab / Micro Data 02/05/25 05:37 02/05/25 05:37 Labs: Laboratory Results - last 24 hr 02/04/25 17:03: WBC 12.3 H, RBC 3.12 L, Hgb 9.8 L, Hct 29.3 L, MCV 93.9, MCH 31.4, MCHC 33.4, RDW Std Deviation 44.0 H, RDW Coeff of Gary 12.9, Plt Count 193,MPV 9.0, Neut % (Auto) Not Reportable, Absolute Neuts (auto) 11.4 H, Absolute Lymphs (auto) 0.25 L, Total Counted 100, Neutrophils % (Manual) 85 H, Band Neutrophils % 8 H, Lymphocytes % (Manual) 2 L, Monocytes % (Manual) 1, Metamyelocytes % 2 H, Myelocytes % 2 H, Platelet Estimate ADEQUATE 02/04/25 20:00: Urine Osmolality 286, Ur Random Microalbumin 26.2, U Random Total Protein 12.3 H, Ur Random Sodium 97, Urine Creatinine 32.90 L, Protein/Creatinin Ratio 374 H, Urine Potassium 15.2, Urine Chloride 92 02/05/25 05:37: WBC 11.0, RBC 2.87 L, Hgb 8.9 L, Hct 26.9 L, MCV 93.7, MCH 31.0,MCHC 33.1, RDW Std Deviation 43.7, RDW Coeff of Gary 12.8, Plt Count 177, MPV 9.4, Neut % (Auto) Not Reportable, Absolute Neuts (auto) 9.8 H, Absolute Lymphs (auto) 0.76 L, Total Counted 100, Neutrophils % (Manual) 89 H, Lymphocytes % (Manual) 7 L, Monocytes % (Manual) 1, Eosinophils % (Manual) 1, Metamyelocytes %2 H, Platelet Estimate ADEQUATE, RBC Morphology NORM C+C, Sodium 139, Potassium 3.7, Chloride 106, Carbon Dioxide 23.1, Anion Gap 10, BUN 38 H, Creatinine 4.62 H, Estim Creat Clear Calc 13.74 L, Est GFR (MDRD) Non-Af 12 L, BUN/Creatinine Ratio 8.2 L, Glucose 122 H, Calcium 8.1 Micro: Microbiology 01/30/25 18:25 Blood Culture (Wb) - Left Hand Blood Culture - Final No growth in 5 days. 01/30/25 23:25 Blood Culture (Wb) - Left Forearm Blood Culture - Final No growth in 5 days. 01/30/25 19:15 Urine, Catheterized Urine Culture - Final Klebsiella pneumoniae sp pneum 01/31/25 02:00 Mucosa - Nasopharyngeal Respiratory Panel (PCR) - Final Physical Exam Narrative Seen and examined. No fever. Discussed with the potato chip frier for increasing creatinine. Nonoliguric CASEY probably progressing to ATN. Patient was admitted in December 2024 for left foot ulcer and at that time was discharged on vancomycin for MRSA bacteremia after complete workup as per ID recommendation. At this time patient admitted with altered mental status and metoprolol blood pressure. Physical exam General: Alert, Oriented x3, Cooperative HEENT: Atraumatic, PERRLA, EOMI, Normocephalic. Oral: No Gingival or Mucosal Lesions/ Ulcerations Neck: Supple, No JVD, Negative Carotid Bruits Chest wall/Lungs: Air entry diminished in bilateral lung bases. No crepitation/rhonchi Cardiovascular: Irregular rate and rhythm, No M/G/R Abdomen: Bowel Sounds Present, Soft, Non Tender, Non-Distended : Holguin catheter. No renal angle tenderness. No suprapubic tenderness. Extremities: Mild edema Skin: Left foot bandage. Left foot ulcer status post excision and primary closure in December 2025 Musculoskeletal: ROM limited at knees and hip joints. Decreased muscle mass. No Tenderness to Palpation of Joints or Extremities Neurological: Cranial nerves II-XII grossly intact, DTR 2+/4. No acute focal neurological deficit. Psych/Mental Status: Normal Affect, Appropriate. Assessment & Plan Assessment/Plan (1) Sepsis: PLAN: Plan This 89-year-old gentleman admitted with altered mental status, had low blood pressure in the beginning but high blood pressure now from fdc and CASEY. 1. Sepsis secondary to acute cystitis-patient's urine culture grew out Klebsiella pneumonia sensitive to several different antibiotics, cefdinir changed to IV ceftriaxone. ID consult reviewed. Continue linezolid to stop date 02/16/2025. #2. Paroxysmal atrial fibrillation-patient is in A-fib. Blood pressure is high. IV labetalol as needed ordered. Heart rate controlled. On Eliquis 2.5 mg twice daily #3. Dementia-patient has advanced dementia. #4. Acute anemia-etiology unclear, 02/05: Leukocytosis resolved. ANC elevated, manual 89%, ALC low. Metamyelocyte 2%. H&H 8.9/27% % #5. Dehydration-BUN/creatinine ratio 8.5 low, clinically patient does not have dehydration. Dehydration corrected #6 essential hypertension-patient was placed on Norvasc. 02/04 blood pressure is high. On labetalol. Started on scheduled carvedilol 02/05 blood pressure is controlled, systolic 130s. #7 acute renal failure-likely secondary to vancomycin usage for his MRSA bacteremia 02/04: E Learning Manager is following. His creatinine is going up suspected ATN with BUN/creatinine ratio less than 20. Urine osmolality and electrolytes ordered. 02/05: Creatinine went up to 4.63. Discussed with the potato chip frier. NonoliguricATN, presumably ATN. Urine studies shows osmolality 286, random microalbumin 26.2, protein elevated 12.3. Protein creatinine ratio 374. #8 MRSA bacteremia-ID consult reviewed. Repeat blood cultures negative on 01/30/2025. stop date for linezolid 02/08/2025 7/ during previous hospitalization he had workup which showed no vegetation on CARLTON. DVT prophylaxis: On Eliquis 2.5 mg twice daily 02/04/25 17:03: WBC 12.3 H, RBC 3.12 L, Hgb 9.8 L, Hct 29.3 L, MCV 93.9, MCH 31.4, MCHC 33.4, RDW Std Deviation 44.0 H, RDW Coeff of Gary 12.9, Plt Count 193,MPV 9.0, Neut % (Auto) Not Reportable, Absolute Neuts (auto) 11.4 H, Absolute Lymphs (auto) 0.25 L, Total Counted 100, Neutrophils % (Manual) 85 H, Band Neutrophils % 8 H, Lymphocytes % (Manual) 2 L, Monocytes % (Manual) 1, Metamyelocytes % 2 H, Myelocytes % 2 H, Platelet Estimate ADEQUATE 02/04/25 20:00: Urine Osmolality 286, Ur Random Microalbumin 26.2, U Random Total Protein 12.3 H, Ur Random Sodium 97, Urine Creatinine 32.90 L, Protein/Creatinin Ratio 374 H, Urine Potassium 15.2, Urine Chloride 92 02/05/25 05:37: WBC 11.0, RBC 2.87 L, Hgb 8.9 L, Hct 26.9 L, MCV 93.7, MCH 31.0,MCHC 33.1, RDW Std Deviation 43.7, RDW Coeff of Gary 12.8, Plt Count 177, MPV 9.4, Neut % (Auto) Not Reportable, Absolute Neuts (auto) 9.8 H, Absolute Lymphs (auto) 0.76 L, Total Counted 100, Neutrophils % (Manual) 89 H, Lymphocytes % (Manual) 7 L, Monocytes % (Manual) 1, Eosinophils % (Manual) 1, Metamyelocytes %2 H, Platelet Estimate ADEQUATE, RBC Morphology NORM C+C, Sodium 139, Potassium 3.7, Chloride 106, Carbon Dioxide 23.1, Anion Gap 10, BUN 38 H, Creatinine 4.62 H, Estim Creat Clear Calc 13.74 L, Est GFR (MDRD) Non-Af 12 L, BUN/Creatinine Ratio 8.2 L, Glucose 122 H, Calcium 8.1 Charges/Coding Visit Charges Inpatient E&M: 54925 Subs Hosp L2 02/05/25 1532 <Electronically signed by Dusty Abad MD> Cosigner Signature (if applicable): CC: ~ Signed [facility] Work Phone: [phone]) 280-256207-17-2025 Radiology Diagnostic study [facility]07-16-2025 Progress note Author Jane Wall [facility] Note Date/Time February 04, 2025 4:09 pm [facility] Medical Records Department [address] [place] [address] Progress Note - Nephrology 02/04/25 0073 MR#: [id number] Acct: [id number] Name: GANESH RAZO Rep #:[id number] : 1935 89 From: Jane lubin MD PCP: Dr. Michael Meeks, DO Status:ADM IN Location: [place] [address] Subjective Subjective no new complaints Objective Data Objective Data Vital Signs: Vital Signs Temp Pulse Resp BP Pulse Ox O2 Del Method O2 Flow Rate 98.1 F 74 16 174/90 H 93 Nasal Cannula 3 02/04/25 14:26 02/04/25 14:26 02/04/25 14:26 02/04/25 14:26 02/04/25 14:26 02/04/25 14:26 02/04/25 14:26 FiO2 50 01/31/25 08:00 Oxygen Flow Rate (L/min) 3 Oxygen Delivery Method Nasal Cannula Weight: 103.2 kg Body Mass Index (BMI) 30.8 Intake & Output: Intake and Output for Last 24 Hours 02/02/25 02/03/25 02/04/25 23:59 23:59 23:59 Intake Total 3517.5 / 3517.5 1875 / 2075 2365.00 / 2365.00 Output Total 1075 / 1075 1475 / 1825 1650 / 1650 Balance 2442.5 / 2442.5 400 / 250 715.00 / 715.00 Lab / Micro Data 02/02/25 05:44 02/04/25 04:02 Labs: Laboratory Results - last 24 hr 02/04/25 04:02: Sodium 139, Potassium 3.8, Chloride 107, Carbon Dioxide 22.9, Anion Gap 9, BUN 38 H, Creatinine 4.48 H, Estim Creat Clear Calc 14.16 L, Est GFR (MDRD) Non-Af 12 L, BUN/Creatinine Ratio 8.5 L, Glucose 126 H, Calcium 7.8 Micro: Microbiology 01/30/25 23:25 Blood Culture (Wb) - Left Forearm Blood Culture - Preliminary No growth in 48 hours. 01/30/25 18:25 Blood Culture (Wb) - Left Hand Blood Culture - Preliminary No growth in 48 hours. 01/30/25 19:15 Urine, Catheterized Urine Culture - Final Klebsiella pneumoniae sp pneum 01/31/25 02:00 Mucosa - Nasopharyngeal Respiratory Panel (PCR) - Final Physical Exam Narrative Alert and oriented, confused to recent events. No apparent distress. S1, S2, RRR Lungs sound clear. No wheezes, rales or rhonchi Abdomen soft, nontender, nondistended Trace nonpitting edema bilateral lower legs Indwelling Holguin with straw-colored urine in bag and tubing Assessment & Plan Assessment/Plan (1) Acute kidney injury: PLAN: This is an 89-year-old male with past medical history significant for dementia, hypothyroidism who was brought to the emergency room from extended-care facility for confusion and elevated blood pressure. Per fdc patient's systolic blood pressure above 200. Patient was just recently at [facility] from January 01 to January 08, treated for MSSA bacteremia in settingof cellulitis of his foot and left foot osteomyelitis, CARLTON no vegetation seen but difficult study; patient had PICC line placed and was discharged to [facility] withIV vancomycin with stop date of 02/16/2025. Nephrology consulted in view of elevated creatinine. Creatinine was 1.8 in the ER and today creatinine is up to3.77. Baseline creatinine is ranging around 1.1 to 1.3 mg/dL. During his last hospitalization, creatinine was 1.9 on admission and by time of hospital discharge creatinine 1.06 on January 08. presumably ATN non oliguric hopefully cr peak soon 02/04/25 1609 <Electronically signed by Jane Wall MD> Cosigner Signature (if applicable): CC: ~ Signed [facility] Work Phone: [phone]) 587-932607-16-2025 Progress note Author Dusty Abad [facility] Note Date/Time February 04, 2025 3:38 pm [facility] Medical Records Department [address] [place] [address] Progress Note - Hospitalist 02/04/25 1447 MR#: [id number] Acct: [id number] Name: GANESH RAZO Rep #:[id number] : 1935 89 From: Dusty Sabillon PCP: Dr. Michael Meeks, DO Status:ADM IN Location: [place] [address] Reason for Visit Chief Complaint: Confusion and elevated BP Objective Data Objective Data Vital Signs: Vital Signs Temp Pulse Resp BP Pulse Ox O2 Del Method O2 Flow Rate 98.1 F 74 16 174/90 H 93 Nasal Cannula 3 02/04/25 14:26 02/04/25 14:26 02/04/25 14:26 02/04/25 14:26 02/04/25 14:26 02/04/25 14:26 02/04/25 14:26 FiO2 50 01/31/25 08:00 Oxygen Flow Rate (L/min) 3 Oxygen Delivery Method Nasal Cannula Weight: 227 lb 8.273 oz Body Mass Index (BMI) 30.8 Intake & Output: Intake and Output for Last 24 Hours 02/02/25 02/03/25 02/04/25 23:59 23:59 23:59 Intake Total 3517.5 / 3517.5 1875 / 2075 2186.25 / 2186.25 Output Total 1075 / 1075 1475 / 1825 1650 / 1650 Balance 2442.5 / 2442.5 400 / 250 536.25 / 536.25 Lab / Micro Data 02/02/25 05:44 02/04/25 04:02 Labs: Laboratory Results - last 24 hr 02/04/25 04:02: Sodium 139, Potassium 3.8, Chloride 107, Carbon Dioxide 22.9, Anion Gap 9, BUN 38 H, Creatinine 4.48 H, Estim Creat Clear Calc 14.16 L, Est GFR (MDRD) Non-Af 12 L, BUN/Creatinine Ratio 8.5 L, Glucose 126 H, Calcium 7.8 Micro: Microbiology 01/30/25 23:25 Blood Culture (Wb) - Left Forearm Blood Culture - Preliminary No growth in 48 hours. 01/30/25 18:25 Blood Culture (Wb) - Left Hand Blood Culture - Preliminary No growth in 48 hours. 01/30/25 19:15 Urine, Catheterized Urine Culture - Final Klebsiella pneumoniae sp pneum 01/31/25 02:00 Mucosa - Nasopharyngeal Respiratory Panel (PCR) - Final Physical Exam Narrative Seen and examined. Patient also had thick chunky bloody sputum. Patient was admitted in December 2024 for left foot ulcer and at that time was discharged on vancomycin for MRSA bacteremia after complete workup as per ID recommendation. At this time patient admitted with altered mental status and metoprolol blood pressure. Mild CASEY and vancomycin changed to Zyvox. Blood pressure is also high. Physical exam General: Alert, Oriented x3, Cooperative HEENT: Atraumatic, PERRLA, EOMI, Normocephalic. Oral: No Gingival or Mucosal Lesions/ Ulcerations Neck: Supple, No JVD, Negative Carotid Bruits Chest wall/Lungs: Air entry diminished in bilateral lung bases. No crepitation/rhonchi Cardiovascular: Irregular rate and rhythm, No M/G/R Abdomen: Bowel Sounds Present, Soft, Non Tender, Non-Distended : Holguin catheter. No renal angle tenderness. No suprapubic tenderness. Extremities: Mild edema Skin: Left foot bandage. Left foot ulcer status post excision and primary closure in December 2025 Musculoskeletal: ROM limited at knees and hip joints. Decreased muscle mass. No Tenderness to Palpation of Joints or Extremities Neurological: Cranial nerves II-XII grossly intact, DTR 2+/4. No acute focal neurological deficit. Psych/Mental Status: Normal Affect, Appropriate. Assessment & Plan Assessment/Plan (1) Sepsis: PLAN: Plan This 89-year-old gentleman admitted with altered mental status, had low blood pressure in the beginning but high blood pressure now from fdc and CASEY. 1. Sepsis secondary to acute cystitis-patient's urine culture grew out Klebsiella pneumonia sensitive to several different antibiotics, cefdinir changed to IV ceftriaxone. ID consult reviewed. Continue linezolid to stop date 02/16/2025. #2 paroxysmal atrial fibrillation-patient is in A-fib. Blood pressure is high. IV labetalol as needed ordered #3 dementia-patient has advanced dementia. #4 acute anemia-etiology unclear, CBC ordered #5. Dehydration-BUN/creatinine ratio 8.5 low, clinically patient does not have dehydration. Dehydration corrected #6 essential hypertension-patient was placed on Norvasc. 02/04 blood pressure is high. On labetalol. Started on scheduled carvedilol #7 acute renal failure-likely secondary to vancomycin usage for his MRSA bacteremia 02/04: E Learning Manager is following. His creatinine is going up suspected ATN with BUN/creatinine ratio less than 20. Urine osmolality and electrolytes ordered. #8 MRSA bacteremia-ID consult reviewed. Repeat blood cultures negative on 01/30/2025. stop date for linezolid 02/08/2025 Microbiology Past 72 Hours 01/30/25 23:25 Blood Culture (Wb) - Left Forearm Blood Culture - Preliminary No growth in 48 hours. 01/30/25 18:25 Blood Culture (Wb) - Left Hand Blood Culture - Preliminary No growth in 48 hours. Laboratory Results 02/04/25 04:02: Sodium 139, Potassium 3.8, Chloride 107, Carbon Dioxide 22.9, Anion Gap 9, BUN 38 H, Creatinine 4.48 H, Estim Creat Clear Calc 14.16 L, Est GFR (MDRD) Non-Af 12 L, BUN/Creatinine Ratio 8.5 L, Glucose 126 H, Calcium 7.8 Charges/Coding Visit Charges Inpatient E&M: 78442 Subs Hosp L2 02/04/25 153 <Electronically signed by Dusty Abad MD> Cosigner Signature (if applicable): CC: ~ Signed [facility] Work Phone: [phone]) 579-439807-16-2025 Consult note Author [facility] Note Date/Time February 04, 2025 1:58 pm [facility] Medical Records Department [address] [place] [id number] Consultation - Infectious Dx 02/04/25 1354 MR#: [id number] Acct: [id number] Name: GANESH RAZO Rep #:[id number] : 1935 89 From: Juanjo dias MD PCP: Dr. Michael Meeks, DO Status:ADM IN [id number] Assessment & Plan Assessment/Plan (1) Acute kidney injury: (2) Osteomyelitis of left foot: PLAN: Admitted 12/2024 with sepsis due to L foot osteo complicated by mssa bacteremia. One wound cx with MRSA and one also with MRSE. Pt is DNR-CC. OR 12/05/[address] Forman. Due to CASEY, vanc changed to linezolid, same stop date 02/16/25. Will follow, thank you HPI Consult Data Date of Consult: 02/04/25 HPI Narrative Reason for Consultation: osteo HPI Narrative: GANESH RAZO is a 89 M who presented from [facility] 12/2024 with sepsis due to L foot osteo complicated by mssa bacteremia. One wound cx with MRSA and one also with MRSE. Pt is DNR-CC. OR 12/05/[address] Forman. Bcx neg cleared 01/05. No veg seen on TTE but difficult study. Discharged on 6 weeks iv vanc , stop date 02/16/25. Readmitted 01/30 with altered mental status, CASEY from [facility]. Now on linezolid, neph following. ROS unobtainable due to mental status [facility] Medical History (Updated 02/04/25 @ 13:[address] Juanjo Arias MD) Osteomyelitis of left foot Agitation due to dementia Closed head injury Fall Dementia Hypothyroidism Home Medications ?Medication ?Instructions ?Recorded ?Last Taken ?Type levothyroxine 150 mcg tablet 150 mcg PO DAILY 01/01/25 Unknown History meloxicam 7.5 mg tablet 7.5 mg PO DAILY 01/01/25 Unk nown History terbinafine HCl 250 mg tablet 250 mg PO DAILY 01/01/25 Unknown History vancomycin 1.25 gram intravenous 1.25 g IV Q24H 39 day s 01/07/25 Unknown Rx solution acetaminophen 500 mg tablet 1,000 mg (2 x 500 mg) PO T ID 30 01/08/25 Unknown Rx days #0 tabs insulin lispro 100 unit/mL See Protocol subcut TIDAC # 0 mL 01/08/25 Unknown Rx subcutaneous pen (Humalog KwikPen (U-100) Insulin) sennosides 8.6 mg-docusate sodium 2 tab PO BID #0 tabs 01/08/25 Unknown Rx 50 mg tablet (Stimulant Laxative Plus) Allergy/AdvReac Type Severity Reaction Status Date / Time shellfish derived Allergy unknown Verified 01/01/25 15:16 Social History Smoking Status: Never smoker Physical Exam Const General Appearance: lethargic HEENT normocephalic and head/scalp atraumatic Eyes PERRL and EOMs intact bilaterally Neck supple and No nodes Resp normal air movement and clear to auscultation bilaterally Cardio regular rate and regular rhythm GI soft to palpation, non-tender and non-distended Extremity General Extremity: Negative for edema Skin Skin Narrative: reviewed photos Neuro CN's II-XII intact bilaterally Lab / Micro Data Attestation: I reviewed the patient's lab results. 02/02/25 05:44 02/04/25 04:02 Labs: Laboratory Results - last 24 hr 02/04/25 04:02: Sodium 139, Potassium 3.8, Chloride 107, Carbon Dioxide 22.9, Anion Gap 9, BUN 38 H, Creatinine 4.48 H, Estim Creat Clear Calc 14.16 L, Est GFR (MDRD) Non-Af 12 L, BUN/Creatinine Ratio 8.5 L, Glucose 126 H, Calcium 7.8 02/04/25 1358 <Electronically signed by Juanjo Arias MD> Cosigner Signature (if applicable): CC: Dr. Michael Meeks, DO~ Signed [facility] Work Phone: 1(201) 223-613707-15-2025 Progress note Author Jane Wall [facility] Note Date/Time February 03, 2025 3:12 pm [facility] Medical Records Department [address] [place] [address] Progress Note - Nephrology 02/03/25 1510 MR#: [id number] Acct: [id number] Name: GANESH RAZO Rep #:[id number] : 1935 89 From: Jane lubin MD PCP: Dr. Michael Meeks DO Status:ADM IN Location: [place] [address] Subjective Subjective no new events Objective Data Objective Data Vital Signs: Vital Signs Temp Pulse Resp BP Pulse Ox O2 Del Method O2 Flow Rate 97.7 F L 79 14 147/74 H 94 Nasal Cannula 2 02/03/25 07:45 02/03/25 07:45 02/03/25 07:45 02/03/25 07:45 02/03/25 07:45 02/03/25 09:30 02/03/25 09:43 FiO2 50 01/31/25 08:00 Oxygen Flow Rate (L/min) 2 Oxygen Delivery Method Nasal Cannula Weight: 103.3 kg Body Mass Index (BMI) 30.8 Intake & Output: Intake and Output for Last 24 Hours 02/01/25 02/02/25 02/03/25 23:59 23:59 23:59 Intake Total 4383.33 / 4633.33 3517.5 / 3517.5 1450 / 1450 Output Total 475 / 475 1075 / 1075 1200 / 1200 Balance 3908.33 / 4158.33 2442.5 / 2442.5 250 / 250 Lab / Micro Data 07/14/25 05:44 02/03/25 05:44 Labs: Laboratory Results - last 24 hr 02/02/25 11:40: Complement C3 131, Complement C4 23 02/03/25 05:44: Sodium 140, Potassium 4.0, Chloride 105, Carbon Dioxide 22.7, Anion Gap 12, BUN 37 H, Creatinine 4.27 H, Estim Creat Clear Calc 14.86 L, Est GFR (MDRD) Non-Af 13 L, BUN/Creatinine Ratio 8.8 L, Glucose 93, Calcium 8.2 Micro: Microbiology 01/30/25 23:25 Blood Culture (Wb) - Left Forearm Blood Culture - Preliminary No growth in 48 hours. 01/30/25 18:25 Blood Culture (Wb) - Left Hand Blood Culture - Preliminary No growth in 48 hours. 01/30/25 19:15 Urine, Catheterized Urine Culture - Final Klebsiella pneumoniae sp pneum 01/31/25 02:00 Mucosa - Nasopharyngeal Respiratory Panel (PCR) - Final Physical Exam Narrative Alert and oriented, confused to recent events. No apparent distress. S1, S2, RRR Lungs sound clear. No wheezes, rales or rhonchi Abdomen soft, nontender, nondistended Trace nonpitting edema bilateral lower legs Indwelling Holguin with straw-colored urine in bag and tubing Assessment & Plan Assessment/Plan (1) Acute kidney injury: PLAN: This is an 89-year-old male with past medical history significant for dementia, hypothyroidism who was brought to the emergency room from extended-care facility for confusion and elevated blood pressure. Per fdc patient's systolic blood pressure above 200. Patient was just recently at [facility] from January 01 to January 08, treated for MSSA bacteremia in settingof cellulitis of his foot and left foot osteomyelitis, CARL[place] no vegetation seen but difficult study; patient had PICC line placed and was discharged to [facility] withIV vancomycin with stop date of 02/16/2025. Nephrology consulted in view of elevated creatinine. Creatinine was 1.8 in the ER and today creatinine is up to3.77. Baseline creatinine is ranging around 1.1 to 1.3 mg/dL. During his last hospitalization, creatinine was 1.9 on admission and by time of hospital discharge creatinine 1.06 on January 08. Patient is nonoliguric, Holguin in place, urine is straw colored. Renal ultrasound no hydronephrosis. No recent contraststudies. UA positive leukocyte esterase and blood but this was a catheter specimen. vanco levels came back at [address] Nash. being switched o zyvox today non oliguric likely ATN complements ok 02/03/25 1512 <Electronically signed by Jane Wall MD> Cosigner Signature (if applicable): CC: ~ Signed [facility] Work Phone: [phone]) 502-928907-15-2025 Progress note Author Demetrius Nash [facility] Note Date/Time February 03, 2025 2:42 pm [facility] Medical Records Department [address] [place] [address] Progress Note - Hospitalist 02/03/25 1434 MR#: [id number] Acct: [id number] Name: GANESH RAZO Rep #:[id number] : 1935 89 From: Demetrius Nash DO PCP: Dr. Michael Meeks, Status:ADM IN [place] [id number] Reason for Visit Chief Complaint: Confusion and elevated BP Subjective Subjective Patient was seen and examined today, patient's vancomycin has been stopped due to his declining renal function, I talked briefly with infectious diseases by telephone today and they recommended placing the patient on Zyvox to complete the course of antibiotics that were started during the patient's last hospitalization. It appears that the patient needs 18 more days of treatment. I placed the patient on Zyvox 600 mg twice a day starting today. Patient has had 5 days of antibiotic coverage for his urinary tract infection, he is currently on cefdinir, I will stop it after 2 days. Objective Data Objective Data Vital Signs: Vital Signs Temp Pulse Resp BP Pulse Ox O2 Del Method O2 Flow Rate 97.7 F L 79 14 147/74 H 94 Nasal Cannula 2 02/03/25 07:45 02/03/25 07:45 02/03/25 07:45 02/03/25 07:45 02/03/25 07:45 02/03/25 09:30 02/03/25 09:43 FiO2 50 01/31/25 08:00 Oxygen Flow Rate (L/min) 2 Oxygen Delivery Method Nasal Cannula Weight: 103.3 kg Body Mass Index (BMI) 30.8 Intake & Output: Intake and Output for Last 24 Hours 02/01/25 02/02/25 02/03/25 23:59 23:59 23:59 Intake Total 4383.33 / 4633.33 3517.5 / 3517.5 1450 / 1450 Output Total 475 / 475 1075 / 1075 1200 / 1200 Balance 3908.33 / 4158.33 2442.5 / 2442.5 250 / 250 Lab / Micro Data 02/02/25 05:44 02/03/25 05:44 Labs: Laboratory Results - last 24 hr 02/02/25 11:40: Complement C3 131, Complement C4 23 02/03/25 05:44: Sodium 140, Potassium 4.0, Chloride 105, Carbon Dioxide 22.7, Anion Gap 12, BUN 37 H, Creatinine 4.27 H, Estim Creat Clear Calc 14.86 L, Est GFR (MDRD) Non-Af 13 L, BUN/Creatinine Ratio 8.8 L, Glucose 93, Calcium 8.2 Micro: Microbiology 01/30/25 23:25 Blood Culture (Wb) - Left Forearm Blood Culture - Preliminary No growth in 48 hours. 01/30/25 18:25 Blood Culture (Wb) - Left Hand Blood Culture - Preliminary No growth in 48 hours. 01/30/25 19:15 Urine, Catheterized Urine Culture - Final Klebsiella pneumoniae sp pneum 01/31/25 02:00 Mucosa - Nasopharyngeal Respiratory Panel (PCR) - Final Physical Exam Narrative alert and no apparent distress Constitutional Narrative: Patient is confused General Appearance: cooperative, well kempt and well developed Orientation / Consciousness: awake HEENT normocephalic, head/scalp atraumatic and moist oral mucous membranes Eyes PERRL, EOMs intact bilaterally and conjunctivae normal Neck supple, no JVD and thyroid normal General: trachea midline Resp normal respiratory effort, no retractions, no use of accessory muscles and clearto auscultation bilaterally Auscultation: Negative for rales, rhonchi or wheezes Cardio regular rate, regular rhythm, S1 normal heart sound, S2 normal heart sound, no murmurs, no rub and no gallops Cardio Narrative: With PACs GI normal to inspection, nondistended, normoactive bowel sounds, soft to palpation,non-tender and non-distended Extremity no clubbing, cyanosis or edema Skin no rashes or lesions noted General Skin Exam: no breakdown Neuro CN's II-XII intact bilaterally, moves all extremities, no focal motor deficits and no sensory deficits noted Neuro Narrative: Patient is confused Sensorium / Orientation: awake and alert Speech: Patient is nonverbal with this examiner Psych Psych Narrative: Patient is confused, he does answer simple questions appropriately Assessment & Plan Assessment/Plan (1) Sepsis: PLAN: Plan 1. Sepsis secondary to acute cystitis-patient's urine culture grew out Klebsiella pneumonia sensitive to several different antibiotics, patient is on cefdinir presently, I will discontinue it after the dose on 02/06/2025. #2 paroxysmal atrial fibrillation-patient is currently in sinus rhythm with PACs #3 dementia-I do not believe the patient has encephalopathy, he has a history ofdementia. #4 acute anemia-etiology unclear, CBC will be rechecked tomorrow #5 dehydration-I will recheck the patient's BMP tomorrow #6 essential hypertension-patient was placed on Norvasc #7 acute renal failure-likely secondary to vancomycin usage for his MRSA bacteremia #8 MRSA bacteremia-patient will need 18 more days of coverage with Zyvox orally,I started this today Total clinical time spent by myself addressing the patient's medical issues, reviewing all of his data, and collaborating with patient's care team: 35 minutes Charges/Coding Visit Charges Inpatient E&M: 37290 Subs Hosp L2 02/03/25 1442 <Electronically signed by Demetrius Nash DO> Cosigner Signature (if applicable): CC: ~ Signed [facility] Work Phone: [phone] Consult note Author Lise Moreno [facility] Note Date/Time February 03, 2025 9:37 am [facility] Medical Records Department [address] [place] [address] Consultation - Nephrology 02/02/25 1123 MR#: [id number] Acct: [id number] Name: GANESH RAZO Rep #:[id number] : 1935 89 From: Lise guillen [employer]ATOR-C PCP: Dr. Michael Meeks, DO Status:ADM IN Location: [place] [id number] Assessment & Plan Assessment/Plan (1) Acute kidney injury: PLAN: This is an 89-year-old male with past medical history significant for dementia, hypothyroidism who was brought to the emergency room from extended-care facility for confusion and elevated blood pressure. Per fdc patient's systolic blood pressure above 200. Patient was just recently at [facility] from January 01 to January 08, treated for MSSA bacteremia in settingof cellulitis of his foot and left foot osteomyelitis, CARLTON no vegetation seen but difficult study; patient had PICC line placed and was [facility] withIV vancomycin with stop date of 02/16/2025. Nephrology consulted in view of elevated creatinine. Creatinine was 1.8 in the ER and today creatinine is up to3.77. Baseline creatinine is ranging around 1.1 to 1.3 mg/dL. During his last hospitalization, creatinine was 1.9 on admission and by time of hospital discharge creatinine 1.06 on January 08. Patient is nonoliguric, Holguin in place, urine is straw colored. Renal ultrasound no hydronephrosis. No recent contraststudies. UA positive leukocyte esterase and blood but this was a catheter specimen. Last vancomycin trough level 11.9 on January 07. Patient has had fluctuation in blood pressures to some hypotensive episodes last 24 to 48 hours. Lowest documented blood pressure 99/53 on January 31. At this time there is no acute indication for renal placement therapy, patient does have urine output, potassium and bicarb acceptable. We will continue with gentle IV fluids as ordered. Will check complements given recent history of antibiotics. Vancomycin and Zosyn have been stopped. He is on Omnicef. Urine culture Klebsiella, blood cultures so far no growth to date. Will check Vanco level. Will repeat metabolic panel today and check labs again tomorrow morning. Will have catheter flushed to ensure patency. Assessment and plan reviewed with Dr. Wall. Further orders forthcoming as hospitalization evolves, thank you for allowing us to participate in the care of Mr. Razo. HPI Consult Data Date of Consult: 02/02/25 HPI Narrative HPI Narrative: GANESH RAZO, is a 89 M with past medical history significant for dementia, hypothyroidism who was brought to the emergency room from extended-care facilityfor confusion and elevated blood pressure. Per fdc patient's systolic blood pressure above 200. Patient was just recently at [facility] from January 01 to January 08, treated for MSSA bacteremia in setting of cellulitis of his foot and left foot osteomyelitis, CARLTON no vegetation seen but difficult study; patient had PICC line placed and was discharged to [facility] with IV vancomycin with stop date of 02/16/2025. In the emergency room patient's systolic blood [id number]. Patient was also found to have new onset A-fib with RVR. Workup in the emergency room also concerning for UTI. Patient was started on gentle IV fluidsand admitted for further evaluation and treatment. Nephrology consulted in view of elevated creatinine. Patient's creatinine was 1.8 in the ER, December 30. On January 01 serum creatinine 2.0, no lab work yesterday, today his creatinine is 3.77. Patient is alert and oriented but having difficult time recalling recent events. He does have Holguin. No recent vomiting or diarrhea. [facility] Medical History Osteomyelitis of left foot Agitation due to dementia Closed head injury Fall Dementia Hypothyroidism Home Medications ?Medication ?Instructions ?Recorded ?Last Taken ?Type levothyroxine 150 mcg tablet 150 mcg PO DAILY 01/01/25 Unknown History meloxicam 7.5 mg tablet 7.5 mg PO DAILY 01/01/25 Unk nown History terbinafine HCl 250 mg tablet 250 mg PO DAILY 01/01/25 Unknown History vancomycin 1.25 gram intravenous 1.25 g IV Q24H 39 day s 01/07/25 Unknown Rx solution acetaminophen 500 mg tablet 1,000 mg (2 x 500 mg) PO T ID 30 01/08/25 Unknown Rx days #0 tabs insulin lispro 100 unit/mL See Protocol subcut TIDAC # 0 mL 01/08/25 Unknown Rx subcutaneous pen (Humalog KwikPen (U-100) Insulin) sennosides 8.6 mg-docusate sodium 2 tab PO BID #0 tabs 01/08/25 Unknown Rx 50 mg tablet (Stimulant Laxative Plus) Allergy/AdvReac Type Severity Reaction Status Date / Time shellfish derived Allergy unknown Verified 01/01/25 15:16 Social History Smoking Status: Never smoker ROS ROS Narrative As in HPI Physical Exam Narrative Alert and oriented, confused to recent events. No apparent distress. S1, S2, RRR Lungs sound clear. No wheezes, rales or rhonchi Abdomen soft, nontender, nondistended Trace nonpitting edema bilateral lower legs Indwelling Holguin with straw-colored urine in bag and tubing Lab / Micro Data 02/02/25 05:44 02/02/25 05:44 Labs: Laboratory Results - last 24 hr 02/02/25 05:44: WBC 14.9 H, RBC 3.04 L, Hgb 9.8 L, Hct 29.0 L, MCV 95.4 H, MCH 32.2 H, MCHC 33.8, RDW Std Deviation 45.9 H, RDW Coeff of Gary 13.2, Plt Count 216, MPV 9.5, Immature Gran % (Auto) 2.900 H, Neut % (Auto) 85.2 H, Lymph % (Auto) 5.8 L, Hardeman % (Auto) 5.2, Eos % (Auto) 0.6, Baso % (Auto) 0.3, Absolute Neuts (auto) 12.7 H, Absolute Lymphs (auto) 0.86, Sodium 139, Potassium 3.9, Chloride 106, Carbon Dioxide 20.0 L, Anion Gap 14, BUN 36 H, Creatinine 3.77 H, Estim Creat Clear Calc 16.81 L, Est GFR (MDRD) Non-Af 15 L, BUN/Creatinine Ratio9.5 L, Glucose 103 H, Calcium 8.2 Micro: Microbiology 01/30/25 23:25 Blood Culture (Wb) - Left Forearm Blood Culture - Preliminary No growth in 48 hours. 01/30/25 18:25 Blood Culture (Wb) - Left Hand Blood Culture - Preliminary No growth in 48 hours. 01/30/25 19:15 Urine, Catheterized Urine Culture - Final Klebsiella pneumoniae sp pneum 02/02/25 1140 <Electronically signed by Lise MENDOZA> Cosigner Signature (if applicable): 02/03/25 0937 <Electronically signed by Jane Wall MD> CC: Dr. Michael Meeks, DO~ Signed [facility] Work Phone: [phone]) 591-249607-14-2025 Progress note Author Demetrius Nash [facility] Note Date/Time February 02, 2025 6:07 pm [facility] Medical Records Department [address] [place] [address] Progress Note - Hospitalist 02/02/25 1804 MR#: [id number] Acct: [id number] Name: GANESH RAZO Rep #:[id number] : 1935 89 From: Demetrius Nash DO PCP: Dr. Michael Meeks, DO Status:ADM IN Location: [place] [address] Reason for Visit Chief Complaint: Confusion and elevated BP Subjective Subjective Patient was seen and examined today, his creatinine has elevated further today and I have had nephrology see him in consultation. Patient's blood pressure is also elevated, I placed the patient on Norvasc this afternoon. Objective Data Objective Data Vital Signs: Vital Signs Temp Pulse Resp BP Pulse Ox O2 Del Method O2 Flow Rate 97.7 F L 81 18 174/100 H 97 Nasal Cannula 2 02/02/25 15:52 02/02/25 15:52 02/02/25 15:52 02/02/25 15:52 02/02/25 15:52 02/02/25 15:52 02/02/25 15:52 FiO2 50 01/31/25 08:00 Oxygen Flow Rate (L/min) 2 Oxygen Delivery Method Nasal Cannula Weight: 103 kg Body Mass Index (BMI) 30.7 Intake & Output: Intake and Output for Last 24 Hours 01/31/25 02/01/25 02/02/25 23:59 23:59 23:59 Intake Total 4401 / 4401 4133.33 / 4383.33 1850 / 1850 Output Total 550 / 550 475 / 475 550 / 550 Balance 3851 / 3851 3658.33 / 3908.33 1300 / 1300 Lab / Micro Data 02/02/25 05:44 02/02/25 05:44 Labs: Laboratory Results - last 24 hr 02/02/25 05:44: WBC 14.9 H, RBC 3.04 L, Hgb 9.8 L, Hct 29.0 L, MCV 95.4 H, MCH 32.2 H, MCHC 33.8, RDW Std Deviation 45.9 H, RDW Coeff of Gary 13.2, Plt Count 216, MPV 9.5, Immature Gran % (Auto) 2.900 H, Neut % (Auto) 85.2 H, Lymph % (Auto) 5.8 L, Hardeman % (Auto) 5.2, Eos % (Auto) 0.6, Baso % (Auto) 0.3, Absolute Neuts (auto) 12.7 H, Absolute Lymphs (auto) 0.86, Sodium 139, Potassium 3.9, Chloride 106, Carbon Dioxide 20.0 L, Anion Gap 14, BUN 36 H, Creatinine 3.77 H, Estim Creat Clear Calc 16.81 L, Est GFR (MDRD) Non-Af 15 L, BUN/Creatinine Ratio9.5 L, Glucose 103 H, Calcium 8.2 02/02/25 11:40: Vancomycin Trough 31.7 H, Random Vancomycin 31.7 H Micro: Microbiology 01/30/25 23:25 Blood Culture (Wb) - Left Forearm Blood Culture - Preliminary No growth in 48 hours. 01/30/25 18:25 Blood Culture (Wb) - Left Hand Blood Culture - Preliminary No growth in 48 hours. 01/30/25 19:15 Urine, Catheterized Urine Culture - Final Klebsiella pneumoniae sp pneum 01/31/25 02:00 Mucosa - Nasopharyngeal Respiratory Panel (PCR) - Final Physical Exam Narrative alert and no apparent distress Constitutional Narrative: Patient is confused General Appearance: cooperative, well kempt and well developed Orientation / Consciousness: awake HEENT normocephalic, head/scalp atraumatic and moist oral mucous membranes Eyes PERRL, EOMs intact bilaterally and conjunctivae normal Neck supple, no JVD and thyroid normal General: trachea midline Resp normal respiratory effort, no retractions, no use of accessory muscles and clearto auscultation bilaterally Auscultation: Negative for rales, rhonchi or wheezes Cardio regular rate, regular rhythm, S1 normal heart sound, S2 normal heart sound, no murmurs, no rub and no gallops Cardio Narrative: With PACs GI normal to inspection, nondistended, normoactive bowel sounds, soft to palpation,non-tender and non-distended Extremity no clubbing, cyanosis or edema Skin no rashes or lesions noted General Skin Exam: no breakdown Neuro CN's II-XII intact bilaterally, moves all extremities, no focal motor deficits and no sensory deficits noted Neuro Narrative: Patient is confused Sensorium / Orientation: awake and alert Speech: Patient is nonverbal with this examiner Psych Psych Narrative: Patient is confused, patient does not carry on a conversation with this examiner Assessment & Plan Assessment/Plan (1) Sepsis: PLAN: Plan 1. Sepsis secondary to acute cystitis-patient's urine culture grew out Klebsiella pneumonia sensitive to several different antibiotics, I changed the patient to oral antibiotics today-cefdinir #2 paroxysmal atrial fibrillation-patient is currently in sinus rhythm with PACs #3 dementia-I do not believe the patient has encephalopathy, he has a history ofdementia. #4 acute anemia-etiology unclear, CBC will be rechecked tomorrow #5 dehydration-I will recheck the patient's BMP tomorrow #6 essential hypertension-patient was placed on Norvasc #7 acute renal failure-etiology unclear, nephrology will be seeing the patient Total clinical time spent by myself addressing the patient's medical issues, reviewing all of his data, and collaborating with patient's care team: 35 minutes Charges/Coding Visit Charges Inpatient E&M: 61494 Subs Hosp L2 02/02/25 1807 <Electronically signed by Demetrius Nash DO> Cosigner Signature (if applicable): CC: ~ Signed [facility] Work Phone: 1(760) 246-748707-13-2025 Progress note Author Demetrius [facility] Note Date/Time February 01, 2025 4:09 pm [facility] Medical Records Department [address] [place] [address] Progress Note - Hospitalist 02/01/25 1601 MR#: [id number] Acct: [id number] Name: GANESH RAZO Rep #:[id number] : 1935 89 From: Demetrius Nash DO PCP: Dr. Michael Meeks, DO Status:ADM IN Location: [place] [id number] Reason for Visit Chief Complaint: Confusion and elevated BP Subjective Subjective Patient was seen and examined today, he is nonverbal to this examiner. He does not appear to be in any distress however Objective Data Objective Data Vital Signs: Vital Signs Temp Pulse Resp BP Pulse Ox O2 Del Method O2 Flow Rate 98 F 80 18 150/80 H 95 Room Air 2 02/01/25 09:30 02/01/25 15:09 02/01/25 15:09 02/01/25 09:30 02/01/25 15:09 02/01/25 15:09 01/31/25 14:33 FiO2 50 01/31/25 08:00 Oxygen Flow Rate (L/min) 2 Oxygen Delivery Method Room Air Weight: 99.1 kg Body Mass Index (BMI) 29.5 Intake & Output: Intake and Output for Last 24 Hours 01/30/25 01/31/25 02/01/25 23:59 23:59 23:59 Intake Total 2100 / 2100 4401 / 4401 2875 / 2875 Output Total 550 / 550 275 / 275 Balance 2100 / 1900 3851 / 3851 2600 / 2600 Lab / Micro Data 01/31/25 03:51 01/31/25 03:51 Micro: Microbiology 01/30/25 19:15 Urine, Catheterized Urine Culture - Final Klebsiella pneumoniae sp pneum 01/31/25 02:00 Mucosa - Nasopharyngeal Respiratory Panel (PCR) - Final Physical Exam Narrative alert and no apparent distress Constitutional Narrative: Patient is confused General Appearance: cooperative, well kempt and well developed Orientation / Consciousness: awake HEENT normocephalic, head/scalp atraumatic and moist oral mucous membranes Eyes PERRL, EOMs intact bilaterally and conjunctivae normal Neck supple, no JVD and thyroid normal General: trachea midline Resp normal respiratory effort, no retractions, no use of accessory muscles and clearto auscultation bilaterally Auscultation: Negative for rales, rhonchi or wheezes Cardio regular rate, regular rhythm, S1 normal heart sound, S2 normal heart sound, no murmurs, no rub and no gallops Cardio Narrative: With PACs GI normal to inspection, nondistended, normoactive bowel sounds, soft to palpation,non-tender and non-distended Extremity no clubbing, cyanosis or edema Skin no rashes or lesions noted General Skin Exam: no breakdown Neuro CN's II-XII intact bilaterally, moves all extremities, no focal motor deficits and no sensory deficits noted Neuro Narrative: Patient is confused Sensorium / Orientation: awake and alert Speech: Patient is nonverbal with this examiner Psych Psych Narrative: Patient is confused, nonverbal Assessment & Plan Assessment/Plan (1) Sepsis: PLAN: Plan 1. Sepsis secondary to acute cystitis-patient's urine culture grew out Klebsiella pneumonia sensitive to several different antibiotics, I have elected to keep the patient on Zosyn for now #2 paroxysmal atrial fibrillation-patient is currently in sinus rhythm with PACs #3 dementia-I do not believe the patient has encephalopathy, he has a history ofdementia. #4 acute anemia-etiology unclear, CBC will be rechecked tomorrow #5 dehydration-I will recheck the patient's BMP tomorrow Total clinical time spent by myself addressing the patient's medical issues, reviewing all of his data, and collaborating with patient's care team: 35 minutes Charges/Coding Visit Charges Inpatient E&M: 78062 Subs Hosp L2 02/01/25 1609 <Electronically signed by Demetrius Nash DO> Cosigner Signature (if applicable): CC: ~ Signed [facility] Work Phone: 1(767) 390-494007-12-2025 Progress note Author [facility]us [facility] Note Date/Time January 31, 2025 3:46 pm [facility] Medical Records Department [address] [facility] [place] [address] Progress Note - Hospitalist 01/31/25 1516 MR#: [id number] Acct: [id number] Name: GANESH RAZO Rep #:[id number] : 1935 89 From: Demetrius Nash DO PCP: Dr. Michael Meeks, DO Status:ADM IN Location: ICU ICU-1 Reason for Visit Reason for Visit: Diagnoses Sepsis, unspecified organism (01/30/25) Unspecified atrial fibrillation (01/30/25) Urinary tract infection, site not specified (01/30/25) Subjective Subjective Patient was seen and examined today, he appears medically stable at this time, he remains confused but has a diagnosis of dementia. Objective Data Objective Data Vital Signs: Vital Signs Temp Pulse Resp BP Pulse Ox O2 Del Method O2 Flow Rate 98.5 F 73 16 104/63 95 Room Air 2 01/31/25 12:00 01/31/25 15:00 01/31/25 15:00 01/31/25 15:00 01/31/25 15:00 01/31/25 15:00 01/31/25 14:33 FiO2 50 01/31/25 08:00 Oxygen Flow Rate (L/min) 2 Oxygen Delivery Method Room Air Weight: 95.2 kg Body Mass Index (BMI) 28.4 Intake & Output: Intake and Output for Last 24 Hours 01/29/25 01/30/25 01/31/25 23:59 23:59 23:59 Intake Total 2099 2951 / 2951 Output Total 450 / 450 Balance 2099 / 1900 2501 / 2501 Lab / Micro Data 01/31/25 03:51 01/31/25 03:51 Labs: Laboratory Results - last 24 hr 01/30/25 18:25: WBC 6.3, RBC 3.55 L, Hgb 11.3 L, Hct 33.5 L, MCV 94.4 H, MCH 31.8, MCHC 33.7, RDW Std Deviation 44.1 H, RDW Coeff of Gary 12.7, Plt Count 177,MPV 9.6, Neut % (Auto) Not Reportable, Absolute Neuts (auto) 5.2, Absolute Lymphs (auto) 0.38 L, Total Counted 100, Neutrophils % (Manual) 70, Band Neutrophils % 13 H, Lymphocytes % (Manual) 6 L, Monocytes % (Manual) 3, Eosinophils % (Manual) 2, Metamyelocytes % 2 H, Myelocytes % 4 H, Diff Path Review November, Platelet Estimate ADEQUATE, PT 13.5, INR 1.0, APTT 25.1, [id number], Potassium 3.3, Chloride 104, Carbon Dioxide 23.6, Anion Gap 13, BUN 23 H, Creatinine 1.89 H, Estim Creat Clear Calc 32.29 L, Est GFR (MDRD) Non-Af 34 L, BUN/Creatinine Ratio 11.9, Glucose 113 H, Lactic Acid 2.6 H*, Calcium 8.9, Phosphorus 2.5 L, Magnesium 1.7, Total Bilirubin 0.49, AST 29, ALT 33, Alkaline Phosphatase 198 H, Total Protein 6.5, Albumin 2.9 L, Globulin 3.6, Albumin/Globulin Ratio 0.8 L 01/30/25 19:15: Urine Color Yellow, Urine Clarity Turbid, Urine pH 6.0, Ur Specific Phoenix 1.015, Urine Protein 100 H, Urine Glucose (UA) Normal, Urine Ketones Negative, Urine Occult Blood 250 H, Urine Nitrite Negative, Urine Bilirubin Negative, Urine Urobilinogen Normal, Ur Leukocyte Esterase 500 H, Urine RBC > 100 SEEN, Urine WBC >100 SEEN, Ur Squamous Epith Cells 0-5 SEEN, Urine Bacteria 4+, Urine Mucus 0 SEEN 01/30/25 23:05: Lactic Acid 2.0 07/12/25 03:51: WBC 26.0 H, RBC 2.80 L, Hgb 8.9 L, Hct 26.6 L, MCV 95.0 H, MCH 31.8, MCHC 33.5, RDW Std Deviation 45.2 H, RDW Coeff of Gary 13.0, Plt Count 149 L, MPV 9.4, Sodium 141, Potassium 3.7, Chloride 109 H, Carbon Dioxide 22.6, Anion Gap 9, BUN 22 H, Creatinine 2.08 H, Estim Creat Clear Calc 26.94 L, Est GFR (MDRD) Non-Af 30 L, BUN/Creatinine Ratio 10.4, Glucose 132 H, Calcium 7.8 Micro: Microbiology 01/30/25 19:15 Urine, Catheterized Urine Culture - Preliminary GNR lactose stencil cutter 01/31/25 02:00 Mucosa - Nasopharyngeal Respiratory Panel (PCR) - Final Radiography Diagnostic Testing: Radiology Impression Chest X-Ray 01/30/25 18:53 IMPRESSION: Pulmonary findings as above. Reading Location: [id number] Renal Ultrasound 01/30/25 21:33 IMPRESSION: 1. Slightly limited evaluation due to shadowing bowel gas. Mildly increased echogenicity of the renal cortices, suggestive of medical renal disease. 2. No hydronephrosis. Reading Location: [facility] Physical Exam Const alert and no apparent distress Constitutional Narrative: Patient is confused General Appearance: cooperative, well kempt and well developed Orientation / Consciousness: awake HEENT normocephalic, head/scalp atraumatic and moist oral mucous membranes Eyes PERRL, EOMs intact bilaterally and conjunctivae normal Neck supple, no JVD and thyroid normal General: trachea midline Resp normal respiratory effort, no retractions, no use of accessory muscles and clearto auscultation bilaterally Auscultation: Negative for rales, rhonchi or wheezes Cardio regular rate, regular rhythm, S1 normal heart sound, S2 normal heart sound, no murmurs, no rub and no gallops Cardio Narrative: With PACs GI normal to inspection, nondistended, normoactive bowel sounds, soft to palpation,non-tender and non-distended Extremity no clubbing, cyanosis or edema Skin no rashes or lesions noted General Skin Exam: no breakdown Neuro CN's II-XII intact bilaterally, moves all extremities, no focal motor deficits and no sensory deficits noted Neuro Narrative: Patient is confused Sensorium / Orientation: awake and alert Speech: speech normal Psych Psych Narrative: Patient is confused Assessment & Plan Assessment/Plan (1) Sepsis: PLAN: Plan 1. Sepsis secondary to acute cystitis-patient is to remain on vancomycin and Zosyn, await culture results, patient appears stable for transfer to [facility] status #2 paroxysmal atrial fibrillation-patient is currently in sinus rhythm with PACs #3 dementia-I do not believe the patient has encephalopathy, he has a history ofdementia. #4 acute anemia-etiology unclear, CBC will be rechecked tomorrow #5 dehydration-continue IV lactated Ringer's, I have decided to decrease his rate to 100 cc/h, recheck BMP tomorrow Total clinical time spent by myself addressing the patient's medical issues, reviewing all of his data, and collaborating with patient's care team: 35 minutes Charges/Coding Visit Charges Inpatient E&M: 35276 Subs Hosp L2 01/31/25 1546 <Electronically signed by Demetrius Nash DO> Cosigner Signature (if applicable): CC: ~ Signed [facility] Work Phone: 1(489) 877-629307-12-2025 Consult note Author Sherice Bethea [facility] Note Date/Time January 31, 2025 3:59 am [facility] Medical Records Department [address] [place] [address] Pharmacokinetic/Renal -Consult 01/30/25 2318 MR#: [id number] Acct: [id number] Name: GANESH RAZO Rep #:[id number] : 1935 89 From: Sherice Bethea PCP: Dr. Michael Meeks DO Status:ADM IN Y Location: ICU ICU04-1 Consult Antibiotic Management Pharmacy has been consulted to manage selected antibiotic: Vancomycin Type of Intervention Type of Consult: New start Suspected Infection Suspected Infection: Sepsis and Other (uti) Labs Labs: Sodium 141 mmol/L (133-145) 01/30/25 18:25 Potassium 3.3 mmol/L (3.3-5.1) 01/30/25 18:25 Chloride 104 mmol/L (98-108) 01/30/25 18:25 Carbon Dioxide 23.6 mmol/L (21.0-32.0) 01/30/25 18:25 Anion Gap 13 (5-15) 01/30/25 18:25 BUN 23 mg/dL (4-19) H 01/30/25 18:25 Creatinine 1.89 mg/dL (0.70-1.20) H 01/30/25 18:25 Est GFR (MDRD) Non-Af 34 (>60) L 01/30/25 18:25 BUN/Creatinine Ratio 11.9 RATIO (10-20) 01/30/25 18:25 Glucose 113 mg/dL (70-99) H 01/30/25 18:25 Pharmacy Plan for Drug Dosing Pharmacy Plan for Drug Dosing: NEW START IV VANCOMYCIN Consulting Physician: Srinivas Indication: UTI/sepsis Goal Trough: 15-20 SrCr: 1.89 mg/dL CrCl: 32 mL/min Comments: 2000mg loading dose given 01/30 @ 2233 Vancomycin Dose: Will start 1250mg Q24 (01/31 @ 2230) and get a trough prior to 3rd total dose per policy. Pending Level: 02/01/25 @ 2200 Pharmacy Service will continue to monitor and adjust dosing as required. 01/30/259 <Electronically signed by Sherice Bethea> Date _ Sherice Bethea 01/31/25 4429 <Electronically signed by Alex ramirez DO> Cosigner Signature (if applicable): Date Alex Espino DO CC: ~ Signed [facility] Work Phone: 1(264) 632-878407-12-2025 History and physical note Author Alex Espino [facility] Note Date/Time January 30, 2025 11:0 8pm [facility] Medical Records Department [address] [place] [address] H&P Exam - Hospitalist 01/30/252111 MR#: [id number] Acct: [id number] Name: GANESH RAZO Rep #:[id number] : 1935 89 From: Alex ruff DO PCP: Dr. Michael Meeks, DO Status:ADM IN Location: ICU ICU04-1 HPI - General General Date of Admission: 01/30/25 Date of Service: 01/30/25 Chief Complaint: Confusion and elevated BP HPI Narrative GANESH RAZO, is a 89 M who presented to [facility] ED on 01/30/2025from [facility]dc for confusion and elevated BP. Patient was recently hospitalized here from 12/31-01/08 for MSSA bacteremia secondary to cellulitis of the foot. Hospital course was complicated by acute encephalopathy suspected secondary to bacteremia in setting of underlying dementia, CASEY, thrombocytopeniaand weakness. He was discharged to SNF on 01/08 with plan for 6 weeks of IV vancomycin total. He presented from SNF today with confusion and elevated BP. Staff noted that his BP was in the 220s systolic. They also noted that he was hypoxic to the mid 80s on room air. In the ED here he was mildly hypertensive to the 150s systolic but was found to have new onset A-fib with RVR with rate tothe 140s. Was also found to be febrile to 102.9F. CBC was benign. BMP showed creatinine 1.89 (baseline around 1.0). Lactic acid 2.6. UA with 500 leukocyte esterase, greater than 100 WBCs, 4+ bacteria concerning for UTI. Given concern for urosepsis, patient was given 1 L of IV fluids to start as well as a dose of IV Zosyn. He was also an IV Cardizem bolus with rate improvement to the 100s [id number]. Hospitalist was then contacted for admission. I saw the patient at bedside in the ED. Patient was sitting back in bed comfortably but was confused. He was able to tell me his name but could not answer any other questions appropriately for me. Will be admitted for further management. [facility] Medical History Osteomyelitis of left foot Agitation due to dementia Closed head injury Fall Dementia Hypothyroidism Home Medications ?Medication ?Instructions ?Recorded ?Last Taken ?Type levothyroxine 150 mcg tablet 150 mcg PO DAILY 01/01/25 Unknown History meloxicam 7.5 mg tablet 7.5 mg PO DAILY 01/01/25 Unk nown History terbinafine HCl 250 mg tablet 250 mg PO DAILY 01/01/25 Unknown History vancomycin 1.25 gram intravenous 1.25 g IV Q24H 39 day s 01/07/25 Unknown Rx solution acetaminophen 500 mg tablet 1,000 mg (2 x 500 mg) PO T ID 30 01/08/25 Unknown Rx days #0 tabs insulin lispro 100 unit/mL See Protocol subcut TIDAC # 0 mL 01/08/25 Unknown Rx subcutaneous pen (Humalog KwikPen (U-100) Insulin) sennosides 8.6 mg-docusate sodium 2 tab PO BID #0 tabs 01/08/25 Unknown Rx 50 mg tablet (Stimulant Laxative Plus) Allergy/AdvReac Type Severity Reaction Status Date / Time shellfish derived Allergy unknown Verified 01/01/25 15:16 Social History Smoking Status: Never smoker ROS Review of Systems ROS Unobtainable: due to encephalopathy Vital Signs Vital Signs Vital Signs: 01/30/25 18:01 01/30/25 18:08 01/30/25 18:13 Temperature 100.5 F H 100.5 F H Temperature Source Temporal Temporal Pulse Rate 145 H 144 H Respiratory Rate 24 H 27 H Respiratory Pattern Tachypnea Blood Pressure 154/102 H 154/102 H Blood Pressure Mean 119 119 Pulse Ox 95 94 Oxygen Delivery Method Room Air Room Air Oxygen Flow Rate (L/min) 01/30/25 19:18 01/30/25 19:35 01/30/25 19:43 Temperature 101.3 F H Temperature Source Core Pulse Rate 140 H 155 H 122 H Respiratory Rate 20 H Respiratory Pattern Blood Pressure 140/102 H 130/95 H 147/101 H Blood Pressure Mean 114 106 116 Pulse Ox 96 88 92 Oxygen Delivery Method Nasal Cannula Oxygen Flow Rate (L/min) 2 01/30/25 20:00 01/30/25 21:00 01/30/25 21:05 Temperature 102.9 F H 102.9 F H Temperature Source Oral Pulse Rate 111 H 118 H 118 H Respiratory Rate 22 H 20 H 20 H Respiratory Pattern Blood Pressure 136/92 H 118/87 H 118/87 H Blood Pressure Mean 106 97 97 Pulse Ox 96 96 96 Oxygen Delivery Method Nasal Cannula Nasal Cannula Oxygen Flow Rate (L/min) 2 2 Weight Weight: 101.4 kg Body Mass Index (BMI) 27.9 Physical Exam Const alert, no apparent distress and average body habitus Constitutional Narrative: Elderly male, sitting back in bed, mildly fatigued and flushed appearing, alert to person only, not answering any other questions appropriately, otherwise in noacute distress. General Appearance: cooperative Orientation / Consciousness: confused HEENT normocephalic, head/scalp atraumatic, hearing grossly normal bilaterally and nasal mucous membranes and turbinates normal HEENT Narrative: Dry mucous membranes. Eyes PERRL, EOMs intact bilaterally and conjunctivae normal Neck full ROM Chest inspection of chest normal Resp normal respiratory effort, normal air movement, no use of accessory muscles and clear to auscultation bilaterally Cardio no murmurs and peripheral pulses 2+ throughout Cardio Narrative: A-fib with RVR. GI normal to inspection, nondistended, normoactive bowel sounds, soft to palpation,non-tender and non-distended no CVA tenderness Bladder / Kidney Exam: catheter in place and bladder normal to palpation Back/Spine normal ROM Extremity normal to inspection, full ROM and no pedal edema Skin no rashes or lesions noted Results Lab / Micro Data 01/30/25 18:25 01/30/25 18:25 Labs: Laboratory Results - last 24 hr 01/30/25 18:25: WBC 6.3, RBC 3.55 L, Hgb 11.3 L, Hct 33.5 L, MCV 94.4 H, MCH 31.8, MCHC 33.7, RDW Std Deviation 44.1 H, RDW Coeff of Gary 12.7, Plt Count 177,MPV 9.6, Neut % (Auto) Not Reportable, Absolute Neuts (auto) 5.2, Absolute Lymphs (auto) 0.38 L, Total Counted 100, Neutrophils % (Manual) 70, Band Neutrophils % 13 H, Lymphocytes % (Manual) 6 L, Monocytes % (Manual) 3, Eosinophils % (Manual) 2, Metamyelocytes % 2 H, Myelocytes % 4 H, Diff Path Review November, Platelet Estimate ADEQUATE, PT 13.5, INR 1.0, APTT 25.1, [id number], Potassium 3.3, Chloride 104, Carbon Dioxide 23.6, Anion Gap 13, BUN 23 H, Creatinine 1.89 H, Estim Creat Clear Calc 32.29 L, Est GFR (MDRD) Non-Af 34 L, BUN/Creatinine Ratio 11.9, Glucose 113 H, Lactic Acid 2.6 H*, Calcium 8.9, TotalBilirubin 0.49, AST 29, ALT 33, Alkaline Phosphatase 198 H, Total Protein 6.5, Albumin 2.9 L, Globulin 3.6, Albumin/Globulin Ratio 0.8 L 01/30/25 19:15: Urine Color Yellow, Urine Clarity Turbid, Urine pH 6.0, Ur Specific [place] 1.015, Urine Protein 100 H, Urine Glucose (UA) Normal, Urine Ketones Negative, Urine Occult Blood 250 H, Urine Nitrite Negative, Urine Bilirubin Negative, Urine Urobilinogen Normal, Ur Leukocyte Esterase 500 H, Urine RBC > 100 SEEN, Urine WBC >100 SEEN, Ur Squamous Epith Cells 0-5 SEEN, Urine Bacteria 4+, Urine Mucus 0 SEEN Imaging Radiology Impression Chest X-Ray 01/30/25 18:53 IMPRESSION: Pulmonary findings as above. Reading Location: [place] [address] Assessment & Plan Assessment/Plan (1) Sepsis: (2) Urinary tract infection: (3) Atrial fibrillation with rapid ventricular response: PLAN: Plan Patient is an 89-year-old male who presented [facility] ED on 01/30/2025 with confusion and elevated BP. 1. Sepsis suspected secondary to UTI ? Admit under inpatient status to ICU. Met sepsis criteria on admit with fevers, tachycardia, elevated lactate, CASEY and acute encephalopathy presumed secondary to UTI. UA showed 500 leukocyte esterase, 4+ bacteria. Holguin catheter placed on admission for concern for urinary retention. Renal ultrasound showed no hydronephrosis or evidence of pyelonephritis. Will give 3 L IV fluids total for sepsis. Will treat with IV Zosyn, and notably IV vancomycin continued as below. Follow-up urine culture and blood cultures. 2. Acute metabolic encephalopathy with history of dementia ? Alert and oriented x 1 to person only and confused appearing on admit. However, unclear how far from baseline patient currently is given his history ofunderlying dementia. Treatment as above. Avoid sedating medications as able. 3. New onset A-fib with RVR ? New onset A-fib with RVR with heart rate to the 140s in the ED. EKG confirmedA-fib. Given IV Cardizem bolus in the ED with rate improvement to the 100s to 110s. Given dose of therapeutic Lovenox in the ED as well. Had echo done recently on 01/02 that showed mildly dilated LA and RA, EF 55%, mild aortic stenosis. Will initiate Eliquis 2.5 mg twice daily for anticoagulation. Treated with IV fluids as above, will hold on rate control agent at this time. Monitor cardiac telemetry. 4. CASEY ? Creatinine 1.89 on admit, baseline around 1.0-1.1. Presume prerenal etiology in setting of sepsis as above. Holguin catheter was placed on admit. Giving IV fluids as above. Monitor daily BMP and urine output. 5. Acute on chronic debility ? PT/OT/case management consulted. Patient presented from SNF and suspect he will need SNF placement again on discharge. 6. Recent MSSA bacteremia secondary to left foot infection ? Recent hospitalization in December for this. Plan was for 6 weeks of IV vancomycin with stop date 02/16. Foot evaluated by ED physician and did not appear acutely infectious, was wrapped with Stefan wrap. Continue IV vancomycin. 7. Hypothyroidism ? Continue home Synthroid. DVT prophylaxis: Not indicated, on Eliquis CODE STATUS: DNR CCA, DNI Expected disposition: TBD Total clinical time spent by myself addressing the patient's medical issues, reviewing all the data, and collaborating with patient's care team: 75 minutes. Charges/Coding Visit Charges Inpatient E&M: 86415 Init Hosp L3 01/30/252 <Electronically signed by Alex Espino DO> Cosigner Signature (if applicable): CC: Dr. Alex Espino DO; Dr. Michael Meeks DO~ Signed [facility] Work Phone: [phone]) [phone] Discharge summary Author Booker Marcos [facility] Note Date/Time January 30, 2025 10:2 9pm [facility] Medical Records Department [address] [place] [address] Emergency Department Summary 01/30/25 MR#: [id number] Acct: [id number] Name: GANESH RAZO Rep #:[id number] : 1935 89 From: Booker Sorenson PCP: Dr. Michael Meeks, Status:ADM IN Location: ICU ICU04-1 HPI History of Present Illness Chief Complaint: Hypertension Informant: EMS and SNF Onset/Context/Timing Onset: Today Timing: Continuous Quality: Hypertension Location: Generalized Narrative Narrative: Patient presents with elevated blood pressure that was noticed today at the [facility]. EMS reported that the patient's blood pressure was 250/220. EMS also reports the patient was oxygen was 84% on room air. Currently, patient's blood pressure is 154/102. Patient is 94% on room air here. Patient is very poor informant. Patient states he just feels cold. PFSH PFSH Medical History Osteomyelitis of left foot Agitation due to dementia Closed head injury Fall Dementia Hypothyroidism Home Medications ?Medication ?Instructions ?Recorded ?Last Taken ?Type levothyroxine 150 mcg tablet 150 mcg PO DAILY 01/01/25 Unknown History meloxicam 7.5 mg tablet 7.5 mg PO DAILY 01/01/25 Unk nown History terbinafine HCl 250 mg tablet 250 mg PO DAILY 01/01/25 Unknown History vancomycin 1.25 gram intravenous 1.25 g IV Q24H 39 day s 01/07/25 Unknown Rx solution acetaminophen 500 mg tablet 1,000 mg (2 x 500 mg) PO T ID 30 01/08/25 Unknown Rx days #0 tabs insulin lispro 100 unit/mL See Protocol subcut TIDAC # 0 mL 01/08/25 Unknown Rx subcutaneous pen (Humalog KwikPen (U-100) Insulin) sennosides 8.6 mg-docusate sodium 2 tab PO BID #0 tabs 01/08/25 Unknown Rx 50 mg tablet (Stimulant Laxative Plus) Allergy/AdvReac Type Severity Reaction Status Date / Time shellfish derived Allergy unknown Verified 01/01/25 15:16 Social History Smoking Status: Never smoker ROS ROS ED Review of Systems ROS Unobtainable: due to mental condition EXAM Physical Exam Const Vital Signs: 01/30/25 18:01 01/30/25 18:08 01/30/25 18:13 Temperature 100.5 F H 100.5 F H Temperature Source Temporal Temporal Pulse Rate 145 H 144 H Respiratory Rate 24 H 27 H Respiratory Pattern Tachypnea Blood Pressure 154/102 H 154/102 H Blood Pressure Mean 119 119 Pulse Ox 95 94 Oxygen Delivery Method Room Air Room Air Oxygen Flow Rate (L/min) 01/30/25 19:18 01/30/25 19:35 01/30/25 19:43 Temperature 101.3 F H Temperature Source Core Pulse Rate 140 H 155 H 122 H Respiratory Rate 20 H Respiratory Pattern Blood Pressure 140/102 H 130/95 H 147/101 H Blood Pressure Mean 114 106 116 Pulse Ox 96 88 92 Oxygen Delivery Method Nasal Cannula Oxygen Flow Rate (L/min) 2 01/30/25 20:00 01/30/25 21:00 01/30/25 21:05 Temperature 102.9 F H 102.9 F H Temperature Source Oral Pulse Rate 111 H 118 H 118 H Respiratory Rate 22 H 20 H 20 H Respiratory Pattern Blood Pressure 136/92 H 118/87 H 118/87 H Blood Pressure Mean 106 97 97 Pulse Ox 96 96 96 Oxygen Delivery Method Nasal Cannula Nasal Cannula Oxygen Flow Rate (L/min) 2 2 Positive well nourished and well developed General Appearance ED: well developed and NAD Eyes PERRL and EOMs intact bilaterally Neck supple and no JVD Resp normal respiratory effort and clear to auscultation bilaterally Cardio regular rhythm Rate: tachycardic GI non-tender and non-distended Palpation: soft Extremity Extremity Narrative: There is a healing wound over the left foot. There is a dressing in place. Capillary refill was less than 2 seconds in all digits of the left foot. Sensation was grossly intact to light touch in all digits of the left foot. Patient is moving all toes. Neuro CN's II-XII intact bilaterally and no sensory deficits noted Sensorium / Orientation: alert Motor Exam: strength 5/5 throughout MDM MDM MDM Narrative Medical decision making narrative: Differential diagnosis includes but is not limited to sepsis, hypertensive urgency, electrolyte abnormality, osteomyelitis, urinary tract infection, pneumonia, cardiac dysrhythmia, and cardiac ischemia. EKG will be obtained to assess for cardiac dysrhythmia and cardiac ischemia. Chest x-ray will be obtained to assess for pneumonia and bronchitis. X-rays of the left foot will be obtained to assess for osteomyelitis. CBC will be obtained to assess for leukocytosis and anemia. Basic metabolic profile will be obtained to assess forelectrolyte abnormality and renal function. Urinalysis will be obtained to assess for urinary tract infection and hematuria. Serum lactate will be obtained to assess for sepsis. High-sensitivity troponin will be obtained to assess for cardiac ischemia. Blood cultures will be obtained to assess for sepsis. Urine culture will be obtained to assess for urinary tract infection. History & Record Review Additional record(s) reviewed:: Prior inpatient record, Prior ED visit and Priorlabs Lab Data Attestation: I reviewed the patient's lab results. Lab results narrative: CBC was reviewed. There is a mild anemia with a hemoglobin of 11.3 hematocrit 33.5. Comprehensive metabolic profile was reviewed. Creatinine was slightly elevated at 1.89. This is consistent with previous results. Alkaline phosphatase is mildly elevated at 198. Serum lactate was reviewed and was elevated at 2.6. Urinalysis was reviewed. Leukocyte Estrace was 500. There are greater than 100 white blood cells. There is 4+ bacteria. Occult blood [id number]. There are greater than 100 red blood cells. Labs: Laboratory Results - last 24 hr 01/30/25 01/30/25 18:25 19:15 WBC 6.3 RBC 3.55 L Hgb 11.3 L Hct 33.5 L MCV 94.4 H MCH 31.8 MCHC 33.7 RDW Std Deviation 44.1 H RDW Coeff of Gary 12.7 Plt Count 177 MPV 9.6 Neut % (Auto) Not Reportable Absolute Neuts (auto) 5.2 Absolute Lymphs (auto) 0.38 L Total Counted 100 Neutrophils % (Manual) 70 Band Neutrophils % 13 H Lymphocytes % (Manual) 6 L Monocytes % (Manual) 3 Eosinophils % (Manual) 2 Metamyelocytes % 2 H Myelocytes % 4 H Diff Path Review May foll Platelet Estimate ADEQUATE PT 13.5 INR 1.0 APTT 25.1 Sodium 141 Potassium 3.3 Chloride 104 Carbon Dioxide 23.6 Anion Gap 13 BUN 23 H Creatinine 1.89 H Estim Creat Clear Calc 32.29 L Est GFR (MDRD) Non-Af 34 L BUN/Creatinine Ratio 11.9 Glucose 113 H Lactic Acid 2.6 H* Calcium 8.9 Total Bilirubin 0.49 AST 29 ALT 33 Alkaline Phosphatase 198 H Total Protein 6.5 Albumin 2.9 L Globulin 3.6 Albumin/Globulin Ratio 0.8 L Urine Color Yellow Urine Clarity Turbid Urine pH 6.0 Ur Specific [place] 1.015 Urine Protein 100 H Urine Glucose (UA) Normal Urine Ketones Negative Urine Occult Blood 250 H Urine Nitrite Negative Urine Bilirubin Negative Urine Urobilinogen Normal Ur Leukocyte Esterase 500 H Urine RBC > 100 SEEN Urine WBC >100 SEEN Ur Squamous Epith Cells 0-5 SEEN Urine Bacteria 4+ Urine Mucus 0 SEEN Radiography Chest X-Ray - ED: 1 View, Read by ED Physician, Read by Radiologist and - (Atelectasis versus infiltrate in the left lung base) Diagnostic Testing: Clinical Impression(s) from Imaging Studies Chest X-Ray 01/30/25 18:53 IMPRESSION: Pulmonary findings as above. Reading Location: [place] [address] Portable 1 view chest x-ray was obtained. On my independent interpretation, there are reticular opacities of the left lung base which could be atelectasis or infiltrate. There is no evidence of cardiomegaly. Bony thorax is normal. Radiologist also interpreted the x-rays and agrees. EKG Initial EKG: Attestation: I personally reviewed and interpreted this EKG as follows: Interpretation: Atrial Fibrillation (141) and Non-Specific ST Changes Comments: EKG was obtained. On my independent interpretation, shows atrial fibrillation with a rate of 141. QRS interval was normal at 78 ms. QTc interval was normal at 404 ms. [place] was normal. There are no acute ST or T wave changes noted. Compared to previous EKG dated 01/01/2025, the atrial fibrillation is new. Management Discussion w/another healthcare provider: Hospitalist Treatment and Re-Evaluation :: Patient was given a dose of Cardizem here. Patient's heart rate improved after this. Patient was given rectal Tylenol. Patient was given a dose of Zosyn. Case was discussed with the hospitalist. He recommended IV fluids. He will evaluate the patient. He will admit the patient to his service. He recommendedgiving the patient a dose of Lovenox for his A-fib. This was ordered. He will admit the patient to ICU. Critical Care Time Critical Care Time: Yes Critical care time (excluding procedures): 30-74 minutes (33), Including time spent:, Discussing w/Patient &/or Family/Auto Transmission Technician, Discussing w/Consultants, Arranging Admission or Transfer and Performing Direct Patient Care at Bedside Discharge Plan Dx/Rx/DC Orders Clinical Impression: Urinary tract infection, Fever, Cellulitis of left foot, Lactic acidosis, Atrial fibrillation with rapid ventricular response, Sepsis Disposition Disposition: Acute Care Hospital [facility] What to do if you have Problems For any increased pain, shortness of breath, bleeding, nausea or vomiting, chestpain, or any unexpected problems, contact your Primary Care Provider. Call [facility] ([phone]) or report to the closest Emergency Room. Call 911 if necessary. 01/30/252228 <Electronically signed by Booker Rodríguez DO> Cosigner Signature (if applicable): CC: Dr. Michael Meeks DO ~ Signed [facility] Work Phone: 1(468) 320-296807-11-2025 [facility] Rad[facility] Diagnostic study note [facility] Imaging Services [address] [place] [address] Chest 1 View (Portable) MR#: [id number] Acct: [id number] Name: GANESH RAZO Rep #: [id number] : 1935 M 89 From: Nicolas Stanley MD PCP: Dr. Michael Meeks DO Status: REG ER Study:Chest 1 View (Portable) Date of Exam: 01/30/25 Exam# [id number] Ordering Dr: Booker Rodríguez DO PROCEDURE: CHEST 1 VIEW (PORTABLE) 01/30/2025 REASON FOR EXAM: FEVER TECHNIQUE: Frontal view of the chest. COMPARISON: 01/01/2025. FINDINGS: The heart is normal in size. Faint reticular opacities of the left lung base which may represent atelectasis or infection. No acute osseous abnormalities. RAD/Chest 1 View (Portable) IMPRESSION: Pulmonary findings as above. Reading Location: [place] [address] CC: Dr. Booker Rodríguez DO; Dr. Michael Meeks DO ~ It Program Manager: Signed [facility]06-19-2025 Discharge summary Author Dusty Abad [facility] Note Date/Time January 08, 2025 2:22 pm [facility] Medical Records Department [address] [place] [address] Discharge Summary 01/08/25 1408 MR#: [id number] Acct: [id number] Name: GANESH RAZO Rep #:[id number] : 1935 89 From: Dusty Sabillon PCP: Dr. Michael Meeks DO Status:ADM IN Location: [facility] HKZ326- 1 Providers Date of Admission: 01/01/25 Date of Discharge: 01/08/25 Primary Care Physician: Dr. Michael Meeks DO Consultations 01/02/25 02:40 Consult: Onc/Wound/ultrasound technologist sonographer Routine Comment: Consult: Podiatry Routine Consulting Provider: Jaden Forman Reason for Consult: Foot wound EMERGENT Consult: No MD Notified: Yes Date Notified: 01/02/25 Time Notified: 07:30 Method of Notification: Text 01/02/25 05:46 Consult: Infectious Disease Routine Consulting Provider: Juanjo Arias Reason for Consult: Bacteremia EMERGENT Consult: No MD Notified: Yes Date Notified: 01/02/25 Time Notified: [...] as per surgeon, RN. Podiatry follow- up. 01/08: Wound looks better. Seen by ID. [...] on admission. Baseline creatinine is around 1.3. 6/16: BUN/creatinine 43/1.3. Continue and maintain intake and [...] Narrative Seen and examined. Discussed with the catering staff member Patient awakes with the voice. Quite. Sleepy [...] Myelocytes % 2 H, Diff Path Review November, Platelet Estimate ADEQUATE, RBC Morphology NORM C+C, [...] cbc, esr, and vanc trough. Fax to [phone]. Routine picc care per protocol. insulin lispro [...] Please call for appointment date and time. [phone]) Michael Meeks DO [Primary Care Provider] - Disposition Disposition (needs filled in before D/C Order can be placed): [facility] Charges/Coding Visit Charges Inpatient E&M: 28143 Disch Hosp >30min 01/08/25 1422 <Electronically signed by Dusty Abad MD> Cosigner Signature (if applicable): CC: Dr. Dusty Abad MD; Dr. Michael Meeks DO~ Signed [facility] Work Phone: 1(318) 707-305106-19-2025 Discharge summary Author Dusty Abad [facility] Note Date/Time January 08, 2025 2:08 pm [facility] Medical Records Department [address] [place] [address] Transfer to [facility] MR#: [id number] Acct: [id number] Name: GANESH RAZO Rep #:[id number] : 1935 89 From: Dusty Sabillon PCP: Dr. Michael Meeks, Status:ADM IN Certification of patient admission REQUIRED AT TIME OF ADMISSION. I CERTIFY THAT POST-HOSPITAL ECF SERVICES ARE REQUIRED TO BE GIVEN ON AN IN-PATIENT BASIS BECAUSE OF THE ABOVE NAMED PATIENT'S NEED FOR JAIL CARE ON A CONTINUING BASIS FOR THE CONDITION(S) FOR WHICH HE/SHE WAS RECEIVING IN-PATIENT HOSPITAL SERVICES PRIOR TO HIS/HER TRANSFER TO THE F. 01/08/25 1408<Electronically signed by Dusty Abad MD> [...] Recommendations Dietitian Recommendations/Changes: Continue regular diet per DIRECTOR OF CARDIOLOGY SERVICE LINE recommendations. Continue lou BID with breakfast and [...] cbc, esr, and vanc trough. Fax to [phone]. Routine picc care per protocol. insulin lispro [...] Please call for appointment date and time. [phone]) Michael Meeks DO [Primary Care Provider] - Disposition Disposition (needs filled in before D/C Order can be placed): [facility] 01/08/25 1408 <Electronically signed by Dusty Abad MD> Cosigner Signature (if applicable): CC: DPM Dr. Jaden Forman; Dr. Mei Mckenzie DO; Dr. Sofia Lopez MD; Dr. Juanjo Arias MD; Dr. Michael Meeks DO ~ [facility] Work Phone: 1(159) 189-914606-19-2025 [facility]06-19-2025 Progress note Author Juanjo [facility] Note Date/Time January 08, 2025 10:2 4am [facility] Medical Records Department [address] [place] [address] Progress Note - Infect Disease 01/08/25 1023 MR#: [id number] Acct: [id number] Name: GANESH RAZO Rep #:[id number] : 1935 89 From: Juanjo dias MD PCP: Dr. Michael Meeks DO Status:ADM IN Location: [place] [address] Physical Exam Narrative Sleeping this AM, no [...] Cosigner Signature (if applicable): CC: ~ Signed [facility] Work Phone: 1(813) 831-845406-19-2025 Consult note Author Booker Lam [facility] Note Date/Time January 07, 2025 10:1 4pm [facility] Medical Records Department [address] [place] [address] Pharmacokinetic/Renal -Consult 01/07/252212 MR#: [id number] Acct: [id number] Name: GANESH RAZO Rep #:[id number] : 1935 89 From: Booker Lam PCP: Dr. Michael Meeks, DO Status:ADM IN Location: [place] [address] Consult Antibiotic Management Pharmacy has been consulted [...] on [date and time ordered]: 01/11/25 @2130 01/07/254 <Electronically signed by Booker bradley> Date _ Booker Gracia Signature (if applicable): Date CC: ~ Signed [facility] Work Phone: 1(448) 939-628406-18-2025 Progress note Author Dustytaya Abad [facility] Note Date/Time January 07, 2025 5:11 pm [facility] Medical Records Department [address] [place] [address] Progress Note - Hospitalist 01/07/25 0919 MR#: [id number] Acct: [id number] Name: GANESH RAZO Rep #:[id number] : 1935 89 From: Dusty Sabillon PCP: Dr. Michael Meeks, DO Status:ADM IN Location: [facility] [id number] 1 Reason for Visit Reason for Visit: Diagnoses [...] 74.1 H, Lymph % (Auto) 10.3 L, Hardeman % (Auto) 8.0, Eos % (Auto) 2.7, [...] Narrative Seen and examined. Discussed with the catering staff member Last evening patient was agitated and aggressive [...] is unlikely Charges/Coding Visit Charges Inpatient E&M: 80900 Subs Hosp L2 01/07/25 0879 <Electronically signed by Dusty Abad MD> Cosigner Signature (if applicable): CC: ~ Signed [facility] Work Phone: 1(590) 945-830406-18-2025 Progress note Author Juanjo Arias [facility] Note Date/Time January 07, 2025 2:24 pm [facility] Medical Records Department [address] [place] [address] Progress Note - Infect Disease 01/07/25 1422 MR#: [id number] Acct: [id number] Name: GANESH RAZO Rep #:[id number] : 1935 89 From: Juanjo dias MD PCP: Dr. Michael Meeks, DO Status:ADM IN Location: [place] [address] Physical Exam Narrative Feeling ok, denies pain, [...] Cosigner Signature (if applicable): CC: ~ Signed [facility] Work Phone: 1(983) 172-102006-17-2025 Progress note Author Jaden Forman [facility] Note Date/Time January 06, 2025 5:23 pm [facility] Medical Records Department [address] [place] [address] Progress Note - Surgery 01/06/25 1716 MR#: [id number] Acct: [id number] Name: GANESH RAZO Rep #:[id number] : 1935 89 From: Jaden MONAHAN PCP: Dr. Michael Meeks, DO Status:ADM IN Location: [place] [address] Subjective Subjective Mr. Razo is a 89-year-old [...] 78.2 H, Lymph % (Auto) 9.2 L, Hardeman % (Auto) 8.4, Eos % (Auto) 1.8, [...] 01/05/25 14:30 IMPRESSION: As above. Reading Location: [place] [address] Physical Exam Narrative Vascular: DP and PT [...] Cosigner Signature (if applicable): CC: ~ Signed [facility] Work Phone: 1(955) 831-390306-17-2025 Progress note Author Dusty Abad [facility] Note Date/Time January 06, 2025 1:20 pm [facility] Medical Records Department [address] [place] [address] Progress Note - Hospitalist 01/06/25 0910 MR#: [id number] Acct: [id number] Name: SANDRAGANESH JAX Rep #:[id number] : 1935 89 From: Dusty Sabillon PCP: Dr. Michael Meeks, DO Status:ADM IN Location: [place] [address] Reason for Visit Reason for Visit: Diagnoses [...] 78.2 H, Lymph % (Auto) 9.2 L, Hardeman % (Auto) 8.4, Eos % (Auto) 1.8, [...] 01/05/25 14:30 IMPRESSION: As above. Reading Location: [place] [address] Physical Exam Narrative Seen and examined. Discussed with the catering staff member Patient looks more awake and he spoke [...] is unlikely Charges/Coding Visit Charges Inpatient E&M: 42141 Subs Hosp L2 01/06/25 1320 <Electronically signed by Dusty Abad MD> Cosigner Signature (if applicable): CC: ~ Signed [facility] Work Phone: 1(788) 981-820506-17-2025 Progress note Author Juanjo Arias [facility] Note Date/Time January 06, 2025 10:0 2am [facility] Medical Records Department [address] [place] [address] Progress Note - Infect Disease 01/06/25 1001 MR#: [id number] Acct: [id number] Name: GANESH RAZO Rep #:[id number] : 1935 89 From: Juanjo dias MD PCP: Dr. Michael Meeks, DO Status:ADM IN Location: [place] [address] Physical Exam Narrative More awake this AM, [...] iv abx at discharge. Will follow, d/w counseling case manager (2) MSSA bacteremia: (3) Altered mental status: (4) Acute kidney injury: 01/06/25 1002 <Electronically signed by Juanjo Arias MD> Cosigner Signature (if applicable): CC: ~ Signed [facility] Work Phone: [phone]) 679-782106-17-2025 Consult note Author Alberto Kolb [facility] Note Date/Time January 05, 2025 10:1 3pm [facility] Medical Records Department [address] [place] [address] Pharmacokinetic/Renal -Consult 01/05/25 2212 MR#: [id number] Acct: [id number] Name: GANESH RAZO Rep #:[id number] : 1935 89 From: Alberto Paz od PCP: Dr. Michael Meeks, DO Status:ADM IN Y Location: [place] [address] Consult Antibiotic Management Pharmacy has been consulted [...] @ 2130 01/05/252212 <Electronically signed by Alberto ablert> Date _ Alberto Kolb Cosigner Signature (if applicable): Date CC: ~ Signed [facility] Work Phone: [phone]) 748-248906-16-2025 Consult note Author [facility] Note Date/Time January 05, 2025 6:52 pm [facility] Medical Records Department [address] [place] [address] Anesthesia Postop Eval II 01/05/25 1852 MR#: [id number] Acct: [id number] Name: GANESH RAZO Rep #:[id number] : 1935 89 From: Kar Benson MD PCP: Dr. Michael Meeks, DO Status:ADM IN Y Race: C Location: [place] [address] 3-1 Anesthesia Postop Eval I Sum Postop Eval [...] cantrell MD> Date _ Kar Benson [facility] Signature: Date CC: ~ Signed [facility] Work Phone: [phone]) 846-559106-16-2025 Radiology Diagnostic study [facility]06-16-2025 Consult note Author [facility] Note Date/Time January 05, 2025 5:25 pm [facility] Medical Records Department [address] [facility] [place] [place] [address] Anesthesia Postop Eval I 01/05/25 1721 MR#: [id number] Acct: [id number] Name: GANESH RAZO Rep #:[id number] : 1935 89 From: Kar Benson MD PCP: Dr. Michael Meeks, DO Status:ADM IN Y Race: C Location: [place] [address] 3-1 Anesthesia: Postop Eval I Current Vital Signs [...] MD Cosigner Signature: Date CC: ~ Signed [facility] Work Phone: [phone]) 270-861006-16-2025 Procedure [facility] 01-05-2025 Progress note Author [facility] Note Date/Time January 05, 2025 3:30 pm [facility] Medical Records Department [address] [place] [address] Progress Note - Infect Disease 01/05/25 1529 MR#: [id number] Acct: [id number] Name: GANESH RAZO Rep #:[id number] : 1935 89 From: Juanjo dias MD PCP: Dr. Michael Meeks, DO Status:ADM IN Location: [place] [id number] 1 Physical Exam Narrative OR planned today, no [...] Cosigner Signature (if applicable): CC: ~ Signed [facility] Work Phone: 1(853) 607-303206-16-2025 Consult note Author Kar [facility] Note Date/Time January 05, 2025 3:10 pm [facility] Medical Records Department [address] [place] [address] Pre-Anesthesia Evaluation 01/05/25 1448 MR#: [id number] Acct: [id number] Name: GANESH RAZO Rep #:[id number] : 1935 89 From: Kar Benson MD PCP: Dr. Michael Meeks, DO Status:ADM IN Y Race: C Location: [place] [address] 3-1 ASA Classification* ASA Classification ASA Classification: [...] left foot. Anesthesia History Anesthesia History - senior it security analyst: Anesthesia History - senior it security analyst Hx Hospitalization Any Problems With Anesthesia No [...] take am of surgery PONV PONV - senior it security analyst: PONV - senior it security analyst Female HX of Motion Sickness HX of N/V After Surgery Non-Smoker Duration of Surgery greater than 60 minutes Number of Risk Factors PONV Score Height & Weight Height & Weight: Anesthesia: Height & Weight Height 6 ft 3 in 01/05/25 11:28 Weight: 89.7 kg 01/05/25 11:28 Body Mass Index (BMI) 24.7 01/05/25 06:42 Respiratory Assessment Respiratory Assessment - senior it security analyst: Respiratory Tract Infection Hx - senior it security analyst Hx Respiratory Tract Infection No 01/04/25 20:22 STOP Sleep Apnea STOP Sleep Apnea - senior it security analyst: STOP Sleep Apnea - senior it security analyst Hx Hypertension No 01/05/25 13:29 Hx Sleep [...] Tobacco Use History Tobacco Use History - senior it security analyst: Tobacco Use History - senior it security analyst Tobacco Use Smoking Status Never smoker 01/02/25 03:40 Hx Tobacco Use No 01/02/25 03:40 Years Smoking Packs Smoked per Day Smoking Cessation Date was within the last 15 years Hx Smoking Cessation Date Hx Smoking Cessation Counseling Hematologic Medial History Hematologic Hx - senior it security analyst: Hematologic Medical Hx - product technician Hx of Blood Transfusion Hx of Transfusion in last 3 Months Date of Last Transfusion (if within last 3 months) Ever experience any problems with transfusion(s)? Specify any problems Hx of Preganancy in last 3 Months Nurse Filling Out Transfusion & Questions: Date: Time: Patient unable to answer at Yes 01/02/25 03:40 this time (ie. confused, unrespo /Reproduction History /Reproductive History - senior it security analyst: /Reproductive Hx- senior it security analyst Hx Now Gestational Age (in weeks): EDC: [...] mls @ 15 mls/hr 01/02/25 02:56 IV .[id number] PRN Saline Flush Sodium Chloride 250 mls @ 15 mls/hr 01/02/25 02:56 IV .[id number] PRN Additional IVPB Infusion Vancomycin HCl 1,250 mg/ 275 mls @ 167 mls/hr 01/03/25 22:00 01/05/25 00:36 Sodium Chloride IV Infused Q24H [facility] Infusion Sodium Chloride 1,000 mls @ 75 mls/hr 01/05/25 09:25 01/05/25 09:32 IV 01/05/25 22:44 75 mls/hr .[id number] RONN Administration Insulin Human Lispro 0 unit 01/02/25 07:00 01/05/25 11:01 Insulin Lispro 100 Unit/Ml Insuln.Pen SC Not Given TIDAC [facility] Protocol Levothyroxine Sodium 150 mcg 01/02/25 [...] Sodium 1 Tablet PO Not Given BID [facility] Sodium Chloride 10 - 40 ml 01/02/25 02:56 01/02/25 14:05 0.9% Saline Lock 10 Ml Syringe IV 10 ml UD PRN Administration SALINE FLUSH Vancomycin Protocol 1 lab 01/05/25 20:30 Vancomycin Trough/Random Due [facility] 01/05/25 22:30 DAILY [facility] PFSH Medical History Agitation due to dementia [...] Unk nown History sennosides 8.6 mg tablet (Akylene-nyasia) 8.6 mg PO BID PRN constipation 01/01/25 [...] MD Cosigner Signature: Date CC: ~ Signed [facility] Work Phone: 1(379) 127-699206-16-2025 Progress note Author Dustytaya Abad [facility] Note Date/Time January 05, 2025 9:24 am [facility] Medical Records Department [address] [place] [address] Progress Note - Hospitalist 01/05/25 0853 MR#: [id number] Acct: [id number] Name: GANESH RAZO JAX Rep #:[id number] : 1935 89 From: Dusty Sabillon PCP: Dr. Michael Meeks, DO Status:ADM IN Location: [place] [address] Reason for Visit Reason for Visit: Diagnoses [...] 80.2 H, Lymph % (Auto) 8.0 L, Hardeman % (Auto) 10.4 H, Eos % (Auto) [...] Narrative Seen and examined. Discussed with the catering staff member Patient close confused and disoriented, could not [...] is unlikely Charges/Coding Visit Charges Inpatient E&M: 18111 Subs Hosp L2 01/05/25 0924 <Electronically signed by Dusty Abad MD> Cosigner Signature (if applicable): CC: ~ Signed [facility] Work Phone: 1(588) 908-573206-15-2025 Progress note Author Sofia Lopez [facility] Note Date/Time January 04, 2025 3:37 pm [facility] Medical Records Department [address] [place] [address] Progress Note 01/04/25 1218 MR#: [id number] Acct: [id number] Name: GANESH RAZO Rep #:[id number] : 1935 89 From: Sofia Lopez MD PCP: Dr. Michael Meeks, DO Status:ADM IN Location: [place] [address] Subjective Subjective Patient seen and examined. Patient [...] 83.1 H, Lymph % (Auto) 5.8 L, Hardeman % (Auto) 9.8, Eos % (Auto) 0.2, [...] heparin-induced thrombocytopenia Charges/Coding Visit Charges Inpatient E&M: 85657 Subs Hosp L2 01/04/25 3454 <Electronically signed by Sofia Lopez MD> Sofia Lopez MD Cosigner Signature (if applicable): CC: ~ Signed [facility] Work Phone: 1(350) 184-275606-15-2025 Consult note Author Alberto Kolb [facility] Note Date/Time January 03, 2025 11:5 8pm [facility] Medical Records Department [address] [place] [address] Pharmacokinetic/Renal -Consult 01/03/25 5287 MR#: [id number] Acct: [id number] Name: GANESH RAZO Rep #:[id number] : 1935 89 From: Alberto Paz od PCP: Dr. Michael Meeks, DO Status:ADM IN Y Location: [place] [address] Consult Antibiotic Management Pharmacy has been consulted [...] and time ordered]: 01/04 @ 2130 01/03/25 5792 <Electronically signed by Alberto albert> Date _ Alberto Kolb Cosigner Signature (if applicable): Date CC: ~ Signed [facility] Work Phone: 1(744) 393-221106-14-2025 Progress note Author Sofia [facility] Note Date/Time January 03, 2025 6:29 pm [facility] Medical Records Department [address] [place] [address] Progress Note 01/03/25 1334 MR#: [id number] Acct: [id number] Name: GANESH RAZO Rep #:[id number] : 1935 89 From: Sofia Lopez MD PCP: Dr. Michael Meeks, DO Status:ADM IN Location: [place] [address] Subjective Subjective Patient seen and examined. He [...] 90.0 H, Lymph % (Auto) 2.4 L, Hardeman % (Auto) 6.5, Eos % (Auto) 0.0, [...] By: Mounika Odonnell RDCS, RVT Physical Exam Const average body habitus [...] prophylaxis: Heparin Charges/Coding Visit Charges Inpatient E&M: 35890 Subs Hosp L2 01/03/259 <Electronically signed by Sofia Lopez MD> Sofia Lopze MD Cosigner Signature (if applicable): CC: ~ Signed [facility] Work Phone: 1(293) 185-123906-14-2025 Progress note Author Jaden Forman [facility] Note Date/Time January 03, 2025 10:4 3am [facility] Medical Records Department [address] [place] [address] Progress Note - Surgery 01/03/25 1036 MR#: [id number] Acct: [id number] Name: GANESH RAZO Rep #:[id number] : 1935 89 From: Jaden Sabillon PM PCP: Dr. Michael Meeks, DO Status:ADM IN Location: [address] 1 Subjective Subjective Patient is a 89-year-old male [...] 90.0 H, Lymph % (Auto) 2.4 L, Hardeman % (Auto) 6.5, Eos % (Auto) 0.0, [...] By: Mounika Odonnell, YAYA, RVT Physical Exam Narrative Neurovascular status is [...] lower extremity. Surgery will be planned for Sunday. Patient be n.p.o. midnight tonight. All risk [...] vancomycin and Zosyn Will plan for surgery Sunday. Please reach out to Dr. Forman with question or concerns. Podiatry will continue to follow. (2) Cellulitis of left foot: (3) Non-pressure chronic ulcer of other part of left foot with necrosis of bone: 01/03/25 1043 <Electronically signed by Jaden Forman DPM> Cosigner Signature (if applicable): CC: ~ Signed [facility] Work Phone: 1(212) 443-662406-13-2025 Progress note Author Sofia [facility] Note Date/Time January 02, 2025 6:45 pm [facility] Medical Records Department [address] [place] [address] Progress Note 01/02/25 1454 MR#: [id number] Acct: [id number] Name: GANESH RAZO Rep #:[id number] : 1935 89 From: Sofia Lopez MD PCP: Dr. Michael Meeks, DO Status:ADM IN Location: [place] [address] Subjective Subjective Patient seen and examined. He [...] 86.5 H, Lymph % (Auto) 2.6 L, Hardeman % (Auto) 9.8, Eos % (Auto) 0.1, [...] Sl. Cloudy, Urine pH 6.0, Ur Specific [place] 1.020, Urine Protein 30 H, Urine Glucose [...] 88.3 H, Lymph % (Auto) 1.4 L, Hardeman % (Auto) 9.4, Eos % (Auto) 0.0, [...] ischemic changes and age-related changes. Reading Location: [facility] Chest X-Ray 01/01/25 16:38 IMPRESSION: A prominently calcified aorta is seen, also somewhat tortuous. No evidence of cardiomegaly. Lungs appear clear of acute disease. No pleural effusion or pneumothorax is noted. No interval osseous changes noted. Prior right shoulder surgery is again seen. Reading Location: [id number] Lower Extremity CT 01/01/25 22:40 IMPRESSION: 1. [...] calcaneal insertion of Achilles tendon. [facility] Foot X-Ray 01/02/25 07:50 IMPRESSION: Erosive changes [...] phalanx of the big toe. Reading Location: [place] [address] Physical Exam Const Constitutional Narrative: lethargic, confused [...] prophylaxis: Heparin Charges/Coding Visit Charges Inpatient E&M: 14141 Subs Hosp L3 01/02/251844 <Electronically signed by Sofia Lopez MD> Sofia Lopez MD Cosigner Signature (if applicable): CC: ~ Signed [facility] Work Phone: 1(712) 375-789206-13-2025 Consult note Author Jaden Forman [facility] Note Date/Time January 02, 2025 2:58 pm [facility] Medical Records Department [address] [place] [address] Consultation 01/02/25 0742 MR#: [id number] Acct: [id number] Name: GANESH RAZO Rep #:[id number] : 1935 89 From: Jaden Forman D PM PCP: Dr. Michael Meeks, DO Status:ADM IN Location: [place] [address] Assessment & Plan Assessment/Plan (1) Cellulitis of [...] Consultation: Left foot ulcer HPI Narrative: GANESH RAZO, is a 89 M who presented to [place] emergency room via squad after a fall. [...] fall yesterday. Patient was also seen at [place] wound care center with Dr. Forman/myself where he showed some evidence of agitation but was able to ambulate with assistance of a walker. He did have evidence of positive probe to bone andwas treated with oral antibiotics. Plan was to discuss surgical intervention with MATTI which is his daughter. [facility] when attending his medical appointments. During interview at bedside the patient cannot communicate due tomental status. [facility] Medical History Agitation due to dementia [...] 86.5 H, Lymph % (Auto) 2.6 L, Hardeman % (Auto) 9.8, Eos % (Auto) 0.1, [...] Sl. Cloudy, Urine pH 6.0, Ur Specific [place] 1.020, Urine Protein 30 H, Urine Glucose [...] 88.3 H, Lymph % (Auto) 1.4 L, Hardeman % (Auto) 9.4, Eos % (Auto) 0.0, [...] ischemic changes and age-related changes. Reading Location: [facility] Chest X-Ray 01/01/25 16:38 IMPRESSION: A prominently calcified aorta is seen, also somewhat tortuous. No evidence of cardiomegaly. Lungs appear clear of acute disease. No pleural effusion or pneumothorax is noted. No interval osseous changes noted. Prior right shoulder surgery is again seen. Reading Location: [id number] Lower Extremity CT 01/01/25 22:40 IMPRESSION: 1. [...] calcaneal insertion of Achilles tendon. Reading Location: [place] [address] 01/02/25 1458 <Electronically signed by Jaden Forman DPM> Cosigner Signature (if applicable): CC: Dr. Michael Meeks, DO~ Signed [facility] Work Phone: 1(494) 125-456006-13-2025 Consult note Author Juanjo Arias [facility] Note Date/Time January 02, 2025 11:0 1am [facility] Medical Records Department [address] [place] [address] Consultation - Infectious Dx 01/02/25 1057 MR#: [id number] Acct: [id number] Name: GANESH RAZO Rep #:[id number] : 1935 89 From: Juanjo dias MD PCP: Dr. Michael Meeks DO Status:ADM IN [facility] Assessment & Plan Assessment/Plan (1) Sepsis: PLAN: sepsis due to L foot osteo complicated by mssa bacteremia per pcr. Pt is DNR-CC. OR planned with podiatry. Will cont vanc/zosyn and check repeat bcx and TTE. Would need at least 6 weeks iv abx at discharge. Will follow, thank you, d/w nursing, counseling case manager, and wound care. (2) MSSA bacteremia: (3) Altered mental status: (4) Acute kidney injury: HPI Consult Data Date of Consult: 01/02/25 HPI Narrative Reason for Consultation: bacteremia HPI Narrative: GANESH RAZO, is a 89 M with h/o dementia, [facility], presented to ED 01/01 withacute onset confusion and fall. Found to have fever and L foot infection. Admitted on vanc/zosyn, seen by podiatry. Pt unable to provide history or ROS due to mental status. [facility] Medical History Agitation due to dementia [...] 86.5 H, Lymph % (Auto) 2.6 L, Hardeman % (Auto) 9.8, Eos % (Auto) 0.1, [...] Sl. Cloudy, Urine pH 6.0, Ur Specific [place] 1.020, Urine Protein 30 H, Urine Glucose [...] 88.3 H, Lymph % (Auto) 1.4 L, Hardeman % (Auto) 9.4, Eos % (Auto) 0.0, [...] ischemic changes and age-related changes. Reading Location: [facility] Chest X-Ray 01/01/25 16:38 IMPRESSION: A prominently calcified aorta is seen, also somewhat tortuous. No evidence of cardiomegaly. Lungs appear clear of acute disease. No pleural effusion or pneumothorax is noted. No interval osseous changes noted. Prior right shoulder surgery is again seen. Reading Location: [id number] Lower Extremity CT 01/01/25 22:40 IMPRESSION: 1. [...] calcaneal insertion of Achilles tendon. Reading Location: [facility] Foot X-Ray 01/02/25 07:50 IMPRESSION: Erosive changes [...] phalanx of the big toe. Reading Location: RAD-CHAMSUDDIN1 01/02/25 1101 <Electronically signed by Juanjo Arias MD> Cosigner Signature (if applicable): CC: Dr. Michael Meeks, DO~ Signed [facility] Work Phone: 1([phone]) 381-255206-13-2025 Radiology Diagnostic study [facility]06-13-2025 Radiology Diagnostic study [facility]06-13-2025 Progress note Author Mei Mckenzie [facility] Note Date/Time January 02, 2025 5:49 am [facility] Medical Records Department [address] [place] [address] Progress Note - Hospitalist 01/02/25 0548 MR#: [id number] Acct: [id number] Name: GANESH RAZO Rep #:[id number] : 1935 89 From: Mei Mckenzie DO PCP: Dr. Michael Meeks, DO Status:ADM IN Location: [place] [address] Hospitalist Note I was notified by nursing staff that patient had 4/4 bottles positive for gram-positive cocci in clusters. Patient is already on vancomycin and Zosyn. Will continue antibiotics as ordered for now. Consult infectious disease. Repeat blood cultures tomorrow morning. Check echocardiogram. Suspect source is foot wound. 01/02/25 0549 <Electronically signed by Mei Mckenzie DO> Cosigner Signature (if applicable): CC: ~ Signed [facility] Work Phone: 1(498) 374-444806-13-2025 [facility]06-13-2025 Consult note Author Alberto Kolb [facility] Note Date/Time January 02, 2025 4:04 am [facility] Medical Records Department [address] [place] [address] Pharmacokinetic/Renal -Consult 01/02/25 0403 MR#: [id number] Acct: [id number] Name: GANESH RAZO Rep #:[id number] : 1935 89 From: Alberto Paz od PCP: Dr. Michael Meeks, DO Status:ADM IN Location: [place] [address] Consult Antibiotic Management Pharmacy has been consulted [...] on [date and time ordered]: 01/03 @ 212901/02/25 3234 <Electronically signed by Alberto albert> Date _ Alberto Gracia Signature (if applicable): Date CC: ~ Signed [facility] Work Phone: 1(168) 882-104806-13-2025 History and physical note Author Mei Mckenzie [facility] Note Date/Time January 02, 2025 2:14 am [facility] Medical Records Department [address] [place] [address] H&P Exam - Hospitalist 01/01/252127 MR#: [id number] Acct: [id number] Name: GANESH RAZO Rep #:[id number] : 1935 89 From: Mei Mckenzie DO PCP: Dr. Michael Meeks, DO Status:ADM IN Location: [facility] [id number]- 1 HPI - General General Date of Admission: 01/01/25 Date of Service: 01/01/25 Chief Complaint: Falls/altered mental status HPI Narrative GANESH RAZO, is a 89 M who presented to the emergency department at [facility] on 01/01/2025 due to altered mental status [...] she lives. He comes with paperwork that declaresDNR CC. Patient is significantly hard of hearing [...] not able to verify with his facility. [facility] Medical History Agitation due to dementia [...] 86.5 H, Lymph % (Auto) 2.6 L, Hardeman % (Auto) 9.8, Eos % (Auto) 0.1, [...] Sl. Cloudy, Urine pH 6.0, Ur Specific [place] 1.020, Urine Protein 30 H, Urine Glucose [...] ischemic changes and age-related changes. Reading Location: [id number] Chest X-Ray 01/01/25 16:38 IMPRESSION: A prominently calcified aorta is seen, also somewhat tortuous. No evidence of cardiomegaly. Lungs appear clear of acute disease. No pleural effusion or pneumothorax is noted. No interval osseous changes noted. Prior right shoulder surgery is again seen. Reading Location: [address] Assessment & Plan Assessment/Plan (1) Open [...] mg scheduled at night to help avoid ing DVT prophylaxis - Heparin 5000 units every 8 subcu CODE STATUS - DNR CC per documentation from nursing facility - ED is trying to clarify who has guardianship Charges/Coding Visit Charges Inpatient E&M: 19280 Init Hosp L3 01/02/25 0214 <Electronically signed by Mei Mckenzie DO> Cosigner Signature (if applicable): CC: Dr. Mei Mckenzie DO; Dr. Michael Meeks DO~ Signed [facility] Work Phone: 1(364) [phone] History and physical note [facility] Medical Records Department [address] [place] [address] H&P Exam - Hospitalist 01/01/252127 MR#: [id number] Acct: [id number] Name: GANESH RAZO Rep #:[id number] : 1935 89 From: Mei Mckenzie DO PCP: Dr. Michael Meeks DO Status:ADM IN Location: [facility] EQR995- 1 HPI - General General Date of Admission: 01/01/25 Date of Service: 01/01/25 Chief Complaint: Falls/altered mental status HPI Narrative GANESH RAZO, is a 89 M who presented to the emergency department at [facility] on 01/01/2025 due to altered mental status [...] she lives. He comes with paperwork that declaresDNR CC. Patient is significantly hard of hearing [...] not able to verify with his facility. [facility] Medical History Agitation due to dementia [...] 86.5 H, Lymph % (Auto) 2.6 L, Hardeman % (Auto) 9.8, Eos % (Auto) 0.1, [...] Sl. Cloudy, Urine pH 6.0, Ur Specific [place] 1.020, Urine Protein 30 H, Urine Glucose [...] ischemic changes and age-related changes. Reading Location: [facility] Chest X-Ray 01/01/25 16:38 IMPRESSION: A prominently calcified aorta is seen, also somewhat tortuous. No evidence of cardiomegaly. Lungs appear clear of acute disease. No pleural effusion or pneumothorax is noted. No interval osseous changes noted. Prior right shoulder surgery is again seen. Reading Location: [address] Assessment & Plan Assessment/Plan (1) Open [...] mg scheduled at night to help avoid ing DVT prophylaxis - Heparin 5000 units every 8 subcu CODE STATUS - DNR CC per documentation from nursing facility - ED is trying to clarify who has guardianship Charges/Coding Visit Charges Inpatient E&M: 84531 Init Hosp L3 01/02/25 0214 Cosigner Signature (if applicable): CC: Dr. Mei Mckenzie, ; Dr. Michael Meeks, ~ Signed [facility]06-13-2025 Discharge summary Author Booker Rodríguez [facility] Note Date/Time January 02, 2025 12:0 5am [facility] Medical Records Department [address] [facility] [place] [address] Emergency Department Summary 01/01/25 MR#: [id number] Acct: [id number] Name: GANESH RAZO Rep #:[id number] : 1935 89 From: Booker Sorenson PCP: Dr. Michael Meeks, Status:REG ER Location: ED HPI HPI - [...] Patient is very hard of hearing. PFSH [facility] Medical History Agitation due to dementia [...] 86.5 H Lymph % (Auto) 2.6 L Hardeman % (Auto) 9.8 Eos % (Auto) 0.1 [...] Sl. Cloudy Urine pH 6.0 Ur Specific Phoenix 1.020 Urine Protein 30 H Urine Glucose [...] (Auto) Neut % (Auto) Lymph % (Auto) Hardeman % (Auto) Eos % (Auto) Baso % [...] Color Urine Clarity Urine pH Ur Specific [place] Urine Protein Urine Glucose (UA) Urine Ketones [...] ischemic changes and age-related changes. Reading Location: [facility] Chest X-Ray 01/01/25 16:38 IMPRESSION: A prominently calcified aorta is seen, also somewhat tortuous. No evidence of cardiomegaly. Lungs appear clear of acute disease. No pleural effusion or pneumothorax is noted. No interval osseous changes noted. Prior right shoulder surgery is again seen. Reading Location: [id number] CT scan of the brain was obtained. [...] with PACs with a rate of 98. FL interval, QRS interval, andQTc intervals were all normal. [place] was normal. There are no acute ST [...] Acutekidney injury Disposition Disposition: Acute Care Hospital [facility] What to do if you have Problems For any increased pain, shortness of breath, bleeding, nausea or vomiting, chestpain, or any unexpected problems, contact your Primary Care Provider. Call [facility] ([phone]) or report to the closest Emergency Room. Call 911 if necessary. 01/02/25 0005 <Electronically signed by Booker Rodríguez DO> Cosigner Signature (if applicable): CC: Dr. Michael Meeks DO ~ Signed [facility] Work Phone: 1(109) 374-565206-13-2025 Discharge summary Author Booker Rodríguez [facility] Note Date/Time January 02, 2025 12:0 5am [facility] Medical Records Department [address] [place] [address] Emergency Department Summary 01/01/25 MR#: [id number] Acct: [id number] Name: GANESH RAZO Rep #:[id number] : 1935 89 From: Booker Sorenson PCP: [...] Patient is very hard of hearing. [facility] Medical History Agitation due to dementia Closed [...] 86.5 H Lymph % (Auto) 2.6 L Hardeman % (Auto) 9.8 Eos % (Auto) 0.1 [...] Sl. Cloudy Urine pH 6.0 Ur Specific Phoenix 1.020 Urine Protein 30 H Urine Glucose [...] (Auto) Neut % (Auto) Lymph % (Auto) Hardeman % (Auto) Eos % (Auto) Baso % [...] Color Urine Clarity Urine pH Ur Specific [place] Urine Protein Urine Glucose (UA) Urine Ketones [...] ischemic changes and age-related changes. Reading Location: [facility] Chest X-Ray 01/01/25 16:38 IMPRESSION: A prominently calcified aorta is seen, also somewhat tortuous. No evidence of cardiomegaly. Lungs appear clear of acute disease. No pleural effusion or pneumothorax is noted. No interval osseous changes noted. Prior right shoulder surgery is again seen. Reading Location: [address] scan of the brain was [...] with PACs with a rate of 98. FL interval, QRS interval, andQTc intervals were all normal. [place] was normal. There are no acute ST [...] Acutekidney injury Disposition Disposition: Acute Care Hospital [facility] What to do if you have Problems For any increased pain, shortness of breath, bleeding, nausea or vomiting, chestpain, or any unexpected problems, contact your Primary Care Provider. Call [facility] ([phone]) or report to the closest Emergency Room. Call 911 if necessary. 01/02/25 0005 <Electronically signed by Booker Rodríguez DO> Cosigner Signature (if applicable): CC: Dr. Michael Meeks DO ~ Signed [facility] Work Phone: 1(497) 996-290106-13-2025 Radiology Diagnostic study note [facility] Imaging Services [address] [place] [address] Extremity Lower without Contra MR#: [id number] Acct: [id number] Name: SANDRAGANESHLisette CAMARA Rep #: [id number] : 1935 M 89 From: Guillaume Sweet MD PCP: Dr. Michael Meeks DO Status: REG ER Study:Extremity Lower without Contra Date of Exam: 01/01/25 Exam# [id number] Ordering Dr: Booker Rodríguez DO PROCEDURE: EXTREMITY [...] calcaneal insertion of Achilles tendon. Reading Location: RAD-CYNTHIAIN1 CC: Dr. Booker Rodríguez DO; Dr. Michael Meeks DO ~ It Program Manager: Signed [facility]06-13-2025 Discharge summary [facility] Medical Records Department [address] [place] [address] Emergency Department Summary 01/01/25 MR#: [id number] Acct: [id number] Name: GANESH RAZO Rep #:[id number] : 1935 89 From: Booker Sorenson PCP: [...] Patient is very hard of hearing. [facility] Medical History Agitation due to dementia Closed [...] 86.5 H Lymph % (Auto) 2.6 L Hardeman % (Auto) 9.8 Eos % (Auto) 0.1 [...] Sl. Cloudy Urine pH 6.0 Ur Specific [place] 1.020 Urine Protein 30 H Urine Glucose [...] (Auto) Neut % (Auto) Lymph % (Auto) Hardeman % (Auto) Eos % (Auto) Baso % [...] Color Urine Clarity Urine pH Ur Specific [place] Urine Protein Urine Glucose (UA) Urine Ketones [...] ischemic changes and age-related changes. Reading Location: [facility] Chest X-Ray 01/01/25 16:38 IMPRESSION: A prominently calcified aorta is seen, also somewhat tortuous. No evidence of cardiomegaly. Lungs appear clear of acute disease. No pleural effusion or pneumothorax is noted. No interval osseous changes noted. Prior right shoulder surgery is again seen. Reading Location: [id number] CT scan of the brain was obtained. [...] with PACs with a rate of 98. FL interval, QRS interval, andQTc intervals were all normal. [place] was normal.There are no acute ST or [...] Acutekidney injury Disposition Disposition: Acute Care Hospital [facility] What to do if you have Problems For any increased pain, shortness of breath, bleeding, nausea or vomiting, chestpain, or any unexpected problems, contact your Primary Care Provider. Call [facility] ([phone]) or report tothe closest Emergency Room. Call 911 if necessary. 01/02/25 0005 Cosigner Signature (if applicable): CC: Dr. Michael Meeks, ~ Signed [facility]06-12-2025 History and physical note Author Mei Mckenzie [facility] Note Date/Time January 02, 2025 2:14 am [facility] Medical Records Department [address] [place] [address] H&P Exam - Hospitalist 01/01/252127 MR#: [id number] Acct: [id number] Name: GANESH RAZO Rep #:[id number] : 1935 89 From: Mei Mckenzie DO PCP: Dr. Michael Meeks DO Status:ADM IN Location: [place] [id number] 1 HPI - General General Date of Admission: 01/01/25 Date of Service: 01/01/25 Chief Complaint: Falls/altered mental status HPI Narrative GANESH RAZO is a 89 M who presented to the emergency department at [facility] on 01/01/2025 due to altered mental status [...] she lives. He comes with paperwork that declaresDNR CC. Patient is significantly hard of hearing [...] not able to verify with his facility. [facility] Medical History Agitation due to dementia [...] 86.5 H, Lymph % (Auto) 2.6 L, Hardeman % (Auto) 9.8, Eos % (Auto) 0.1, [...] Sl. Cloudy, Urine pH 6.0, Ur Specific [place] 1.020, Urine Protein 30 H, Urine Glucose [...] ischemic changes and age-related changes. Reading Location: [facility] Chest X-Ray 01/01/25 16:38 IMPRESSION: A prominently calcified aorta is seen, also somewhat tortuous. No evidence of cardiomegaly. Lungs appear clear of acute disease. No pleural effusion or pneumothorax is noted. No interval osseous changes noted. Prior right shoulder surgery is again seen. Reading Location: [address] Assessment & Plan Assessment/Plan (1) Open [...] has guardianship Charges/Coding Visit Charges Inpatient E&M: 05541 Init Hosp L3 01/02/25 0214 <Electronically signed by Mei Mckenzie DO> Cosigner Signature (if applicable): CC: Dr. Mei Mckenzie DO; Dr. Michael Meeks DO~ Signed [facility] Work Phone: 1(874) 804-366806-12-2025 Radiology Diagnostic study note [facility] Imaging Services [address] [place] [address] Chest PA and Lateral MR#: [id number] Acct: [id number] Name: GANESH RAZO Rep #: [id number] : 1935 M 89 From: Rahat Garcia MD PCP: Dr. Michael Meeks DO Status: REG ER Study:Chest PA and Lateral Date of Exam: 01/01/25 Exam# [id number] Ordering Dr: Booker Rodríguez DO PROCEDURE: CHEST [...] shoulder surgery is again seen. Reading Location: [address] CC: Dr. Booker Rodríguez DO; Dr. Michael Meeks DO ~ It Program Manager: Signed [facility]06-12-2025 Radiology Diagnostic study note [facility] Imaging Services [address] [place] [address] Brain/Head without Contrast MR#: [id number] Acct: [id number] Name: GANESH RAZO Rep #: [id number] : 1935 M 89 From: Morelia Chavez MD PCP: Dr. Michael Meeks DO Status: REG ER Study:Brain/Head without Contrast Date of Exa m: 01/01/25 Exam# [id number] Ordering Dr: Booker Rodríguez DO EXAM: BRAIN/HEAD [...] ischemic changes and age-related changes. Reading Location: [id number] CC: Dr. Booker Rodríguez DO; Dr. Michael Meeks DO ~ It Program Manager: Signed [facility]06-11-2025 Progress note Author Jaden Forman [facility] Note Date/Time December 31, 2024 1:28 pm [facility] [address] [place] [address] Progress Note - Wound Care 12/31/24 1324 MR#: [id number] Acct: [id number] Name: GANESH RAZO Rep #:[id number] : 1935 89 From: Jaden Sabillon PM [...] Start: 12/24/24 09:23 Freq: Status: Active Protocol: YUDELKA.LOWEXT Activity Type Activity Date Activity User E-sign Co-sign Detail Recorded Client Recorded Date Recorded By Document 12/24/24 09:23 KW [id number] 12/24/24 09:31 KW Document 12/31/24 11:30 [id number] 12/31/24 11:32 12/24/24 12/31/24 09:23 11:30 - Today's Visit Information Type of service Follow-up Visit Follow-up Visit (Physician/STUDENT COUNSELLOR (Physician/STUDENT COUNSELLOR ) ) Arrival Mode Ambulatory, Ambulatory, Walker [...] Recorded Date Recorded By Document 12/24/24 09:23 [id number] 12/24/24 09:31 KW Document 12/31/24 11:30 [id number] 12/31/24 11:32 12/24/24 12/31/24 09:23 11:30 Wound [...] Amt Large (67-100%) Small (1-33%) -Granulation Quality Oceano,Red [place] -Slough/Fibrin No -Necrosis Amt Small (1-33%) -Necrotic [...] Calf (cm) 38.5 Left Ankle (cm) 27 WC - Nurse 2 - General Ulcer CM Notes Start: 12/24/24 09:23 Freq: Status: Active Protocol: Activity Type Activity Date Activity User E-sign Co-sign Detail Recorded Client Recorded Date Recorded By Document 12/24/24 09:40 [id number] 12/24/24 09:44 Document 12/31/24 11:38 [id number] 12/31/24 11:47 12/24/24 12/31/24 09:40 11:38 Wound [...] Date Recorded By Document 12/24/24 09:53 KW [id number] 12/24/24 09:54 KW Document 12/31/24 11:52 KW [id number] 12/31/24 11:54 KW Edit Result 12/31/24 11:52 KW (1) [id number] 12/31/24 12:09 RB (1) Left Lateral Foot - Wound Comment(s) => pt appears confused Pt glucose taken and it was 102. pt given ensure and helper/driver immediately picked up pt and took to [place]. 12/24/24 12/31/24 09:53 11:52 Wound Care Center Nurse 3 Left Lateral Foot -Other Dressing betadine betadine -Primary Dressing Covered/Secured with Dry Gauze,Dry Dry Gauze & Gauze & Roll Roll Gauze, Gauze,Secured Secured with with Tape Tape -Wound Comment(s) pt appears confused Pt glucose taken and it was 102 . pt given ensure and helper/driver immediately picked up pt and took to [...] a phone call was made to the [facility]dc and I spoke with the patient's nurse to make sure that he is being chaperoned when he is coming to his visit that he was agitated today. We did test his blood sugar and his bloodsugar was 101 mg/dL. I did educate the nurse that if he is having any issues heis to report to the emergency room at [facility] for evaluation admission. I also discussed [...] Cosigner Signature (if applicable): CC: ~ Signed [facility] Work Phone: 1(428) 718-955306-11-2025 Progress note [facility] [address] [place] [address] Progress Note - Wound Care 12/31/24 1324 MR#: [id number] Acct: [id number] Name: GANESH RAZO Rep #:[id number] : 1935 89 From: Jaden Sabillon PM [...] Start: 12/24/24 09:23 Freq: Status: Active Protocol: YUDELKA.LOWEXT Activity Type Activity Date Activity User E-sign Co-sign Detail Recorded Client Recorded Date Recorded By Document 12/24/24 09:23 [id number] 12/24/24 09:31 KW Document 12/31/24 11:30 [id number] 12/31/24 11:32 12/24/24 12/31/24 09:23 11:30 - Today's Visit Information Type of service Follow-up Visit Follow-up Visit (Physician/STUDENT COUNSELLOR (Physician/STUDENT COUNSELLOR ) ) Arrival Mode Ambulatory, Ambulatory, Walker [...] Recorded Date Recorded By Document 12/24/24 09:23 [id number] 12/24/24 09:31 Document 12/31/24 11:30 [id number] 12/31/24 11:32 12/24/24 12/31/24 09:23 11:30 Wound [...] Amt Large (67-100%) Small (1-33%) -Granulation Quality [place],Red [place] -Slough/Fibrin No -Necrosis Amt Small (1-33%) -Necrotic [...] Calf (cm) 38.5 Left Ankle (cm) 27 WC - Nurse 2 - General Ulcer CM Notes Start: 12/24/24 09:23 Freq: Status: Active Protocol: Activity Type Activity Date Activity User E-sign Co-sign Detail Recorded Client Recorded Date Recorded By Document 12/24/24 09:40 CAYLA [id number] 12/24/24 09:44 Document 12/31/24 11:38 [id number] 12/31/24 11:47 12/24/24 12/31/24 09:40 11:38 Wound [...] Date Recorded By Document 12/24/24 09:53 KW [id number] 12/24/24 09:54 KW Document 12/31/24 11:52 KW [id number] 12/31/24 11:54 KW Edit Result 12/31/24 11:52 KW (1) [id number] 12/31/24 12:09 RB (1) Left Lateral Foot - Wound Comment(s) => pt appears confused Pt glucose taken and it was 102. pt given ensure and helper/driver immediately picked up pt and took to [place]. 12/24/24 12/31/24 09:53 11:52 Wound Care Center Nurse 3 Left Lateral Foot -Other Dressing betadine betadine -Primary Dressing Covered/Secured with Dry Gauze,Dry Dry Gauze & Gauze & Roll Roll Gauze, Gauze,Secured Secured with with Tape Tape -Wound Comment(s) pt appears confused Pt glucose taken and it was 102 . pt given ensure and helper/driver immediately picked up pt and took to [...] a phone call was made to the fdc and I spoke with the patient's nurse to make sure that he is being chaperoned when he is coming to his visit that he was agitated today. We did test his blood sugar and his bloodsugar was 101 mg/dL. I did educate the nurse that if he is having any issues heis to report to the emergency room at [facility] for evaluation admission. I also discussed [...] Cosigner Signature (if applicable): CC: ~ Signed [facility]06-04-2025 Progress note Author Jaden Forman [facility] Note Date/Time December 24, 2024 10:36 am [facility] [address] [place] [address] Progress Note - Wound Care 12/24/24 1033 MR#: [id number] Acct: [id number] Name: GANESH RAZO Rep #:[id number] : 1935 89 From: Jaden MONAHAN PCP: [...] Date Recorded By Document 12/24/24 09:23 KW [id number] 12/24/24 09:31 12/24/24 09:23 - Today's Visit Information Type of service Follow-up Visit (Physician/STUDENT COUNSELLOR ) Arrival Mode Ambulatory, Walker Patient Identification [...] Date Recorded By Document 12/24/24 09:23 KW [id number] 12/24/24 09:31 12/24/24 09:23 Wound Center Nurse 1 Left Lateral Foot -Current Size (cm) - Length 0.6 -Current Size (cm) - Width 0.2 -Current Size (cm) - Depth 0.4 -Total Square Cm 0.12 -Date of Last Picture (Recall this 06/04/25 field) -Undermining/Tunneling Yes -Undermining/Tunneling Starts (O'clock 9 ) -Undermining/Tunneling Ends (O'clock) 12 -Maximum Distance (cm) 0.6 -Exudate Amt Medium -Exudate Type Serosanguineous -Wound Margin Thickened -Granulation Amt Large (67-100%) -Granulation Quality [place],Red -Necrosis Amt Small (1-33%) -Necrotic Tissue Type [...] Date Recorded By Document 12/24/24 09:40 CAYLA [id number] 12/24/24 09:44 CAYLA 12/24/24 09:40 Wound Center [...] Recorded Date Recorded By Document 12/24/24 09:53 [id number] 12/24/24 09:54 KW 12/24/24 09:53 Wound Care [...] the patient tohopefully have the power of ip technology transactions attorney have a call with me and discussed the surgical options that I am recommending. Patient will follow-up in 1 week 12/24/24 1036 <Electronically signed by Jaden Forman DPM> Cosigner Signature (if applicable): CC: ~ Signed [facility] Work Phone: 1(264) 378-758506-04-2025 Progress note [facility] [address] [place] [address] Progress Note - Wound Care 12/24/24 1033 MR#: [id number] Acct: [id number] Name: GANESH RAZO Rep #:[id number] : 1935 89 From: Jaden MONAHAN PCP: [...] Recorded Date Recorded By Document 12/24/24 09:23 [id number] 12/24/24 09:31 12/24/24 09:23 - Today's Visit Information Type of service Follow-up Visit (Physician/STUDENT COUNSELLOR ) Arrival Mode Ambulatory, Walker Patient Identification [...] Recorded Date Recorded By Document 12/24/24 09:23 RIVAS [id number] 12/24/24 09:31 RIVAS 12/24/24 09:23 Wound Center Nurse 1 Left [...] Thickened -Granulation Amt Large (67-100%) -Granulation Quality Oceano,Red -Necrosis Amt Small (1-33%) -Necrotic Tissue Type Adherent Slough -Texture (Alyce-wound Skin Appearance) Assessed,Callus -Moisture (Alyce-wound Skin Appearance) Assessed -Color (Alyce-wound Skin Appearance) Assessed -Temperature (Alyce-wound Skin No Abnormality Appearance) (Pt Warm) -Tenderness on Palpation (Alyce-wound No Skin Appearance) -Ulcer Cleansing Rinsed/ Irrigated with Saline -Foul Odor after Cleansing No -Anesthetic Used 5% Lidocaine Gel YUDELKA - Nurse 2 - General Ulcer CM Notes Start: 12/24/24 09:23 Freq: Status: Active Protocol: Activity Type Activity Date Activity User E-sign Co-sign Detail Recorded Client Recorded Date Recorded By Document 12/24/24 09:40 CAYLA [id number] 12/24/24 09:44 CAYLA 12/24/24 09:40 Wound Center [...] Recorded Date Recorded By Document 12/24/24 09:53 [id number] 12/24/24 09:54 12/24/24 09:53 Wound Care Center [...] the patient tohopefully have the power of ip technology transactions attorney have a call with me and discussed the surgical options that I am recommending. Patient will follow-up in 1 week 12/24/24 1036 Cosigner Signature (if applicable): CC: ~ Signed [facility]05-14-2025 Progress note Author Jaden Forman [facility] Note Date/Time December 03, 2024 2:36p m [facility] [address] [place] [address] Progress Note - Wound Care 12/03/24 1433 MR#: [id number] Acct: [id number] Name: GANESH RAZO Rep #:[id number] : 1935 89 From: Jaden Sabillon PM PCP: Dr. Alberto Mustafa MD Status:[facility] Location: History of Present Illness Date of [...] Date Recorded By Document 11/26/24 13:16 KW [id number] 11/26/24 13:25 KW Document 12/03/24 13:22 MT [id number] 12/03/24 13:29 MT 11/26/24 12/03/24 13:16 13:22 - Today's Visit Information Type of service Follow-up Visit Follow-up Visit (Physician/STUDENT COUNSELLOR (Physician/STUDENT COUNSELLOR ) ) Arrival Mode Ambulatory, Ambulatory, Walker [...] Date Recorded By Document 11/26/24 13:16 KW [id number] 11/26/24 13:25 Document 12/03/24 13:22 OK [id number] 12/03/24 13:29 OK 11/26/24 12/03/24 13:16 13:22 Wound Center Nurse [...] Large (67-100%) Medium (34-66%) -Granulation Quality Red Pale,Oceano -Necrosis Amt Medium (34-66%) -Necrotic Tissue Type [...] Date Recorded By Document 11/26/24 13:30 JF [id number] 11/26/24 13:36 Document 12/03/24 13:52 [id number] 12/03/24 13:54 11/26/24 12/03/24 13:30 13:52 Wound [...] Recorded Date Recorded By Document 11/26/24 13:51 OK [id number] 11/26/24 13:53 OK Document 12/03/24 14:07 OK [id number] 12/03/24 14:11 OK 11/26/24 12/03/24 13:51 14:07 Wound Care Center [...] will follow-up in 1 week 12/03/24 1436 <Electronically signed by Jaden Forman DPM> Cosigner Signature (if applicable): CC: ~ Signed [facility] Work Phone: 1(763) 489-240305-14-2025 Progress note [facility] [address] [place] [address] Progress Note - Wound Care 12/03/24 1433 MR#: [id number] Acct: [id number] Name: GANESH RAZO Rep #:[id number] : 1935 89 From: Jaden MONAHAN PCP: [...] Recorded Date Recorded By Document 11/26/24 13:16 [id number] 11/26/24 13:25 Document 12/03/24 13:22 OK [id number] 12/03/24 13:29 OK 11/26/24 12/03/24 13:16 13:22 - Today's Visit Information Type of service Follow-up Visit Follow-up Visit (Physician/STUDENT COUNSELLOR (Physician/STUDENT COUNSELLOR ) ) Arrival Mode Ambulatory, Ambulatory, Walker [...] Date Recorded By Document 11/26/24 13:16 KW [id number] 11/26/24 13:25 KW Document 12/03/24 13:22 MT [id number] 12/03/24 13:29 MT 11/26/24 12/03/24 13:16 13:22 [...] Large (67-100%) Medium (34-66%) -Granulation Quality Red Pale,Oceano -Necrosis Amt Medium (34-66%) -Necrotic Tissue Type [...] Recorded Date Recorded By Document 11/26/24 13:30 [id number] 11/26/24 13:36 Document 12/03/24 13:52 [id number] 12/03/24 13:54 11/26/24 12/03/24 13:30 13:52 Wound [...] Recorded Date Recorded By Document 11/26/24 13:51 OK [id number] 11/26/24 13:53 OK Document 12/03/24 14:07 OK [id number] 12/03/24 14:11 OK 11/26/24 12/03/24 13:51 14:07 Wound Care Center [...] Cosigner Signature (if applicable): CC: ~ Signed [facility]05-07-2025 Progress note Author Jaden Forman [facility] Note Date/Time November 26, 2024 1:47pm [facility] [address] [place] [address] Progress Note - Wound Care 11/26/24 1344 MR#: [id number] Acct: [id number] Name: GANESH RAZO Rep #:[id number] : 1935 88 From: Jaden Sabillon PM [...] Recorded Date Recorded By Document 11/26/24 13:16 [id number] 11/26/24 13:25 11/26/24 13:16 - Today's Visit Information Type of service Follow-up Visit (Physician/STUDENT COUNSELLOR ) Arrival Mode Ambulatory, Walker Patient Identification [...] Date Recorded By Document 11/26/24 13:16 RIVAS [id number] 11/26/24 13:25 KW 11/26/24 13:16 Wound Center [...] Date Recorded By Document 11/26/24 13:30 CAYLA [id number] 11/26/24 13:36 JF 11/26/24 13:30 Wound Center [...] Patient will follow-up in 1 week 11/26/24 6612 <Electronically signed by aJden Forman DPM> Michealigner Signature (if applicable): CC: ~ Signed [facility] Work Phone: 1(719) 150-434605-07-2025 Progress note [facility] [address] [place] [address] Progress Note - Wound Care 11/26/24 1341 MR#: [id number] Acct: [id number] Name: GANESH RAZO Rep #:[id number] : 1935 88 From: Jaden MONAHAN PCP: [...] Recorded Date Recorded By Document 11/26/24 13:16 RIAVS [id number] 11/26/24 13:25 11/26/24 13:16 YUDELKA - Today's Visit Information Type of service Follow-up Visit (Physician/STUDENT COUNSELLOR ) Arrival Mode Ambulatory, Walker Patient Identification [...] Date Recorded By Document 11/26/24 13:16 RIVAS [id number] 11/26/24 13:25 KW 11/26/24 13:16 Wound Center [...] Date Recorded By Document 11/26/24 13:30 JF [id number] 11/26/24 13:36 CAYLA 11/26/24 13:30 Wound Center [...] Cosigner Signature (if applicable): CC: ~ Signed [facility]03-29-2025 Progress note Author Jaden Forman [facility] Note Date/Time October 18, 2024 8:2 7pm [facility] [address] [place] [address] Progress Note - Wound Care 10/18/242022 MR#: [id number] Acct: [id number] Name: GANESH RAZO Rep #:[id number] : 1935 88 From: Jaden Sabillon PM [...] Recorded Date Recorded By Document 10/08/24 11:57 OK [id number] 10/08/24 12:07 MT Document 10/15/24 12:16 KW [id number] 10/15/24 12:20 KW 10/08/24 10/15/24 11:57 12:16 - Today's Visit Information Type of service Initial Visit Follow-up Visit (Physician/STUDENT COUNSELLOR ) Arrival Mode Ambulatory, Ambulatory, Walker Walker [...] Recorded Date Recorded By Document 10/08/24 11:57 OK [id number] 10/08/24 12:07 MT Document 10/15/24 12:16 KW [id number] 10/15/24 12:20 10/08/24 10/15/24 11:57 12:16 Wound Center Nurse [...] Amt Medium (34-66%) Small (1-33%) -Granulation Quality Pale,Oceano Oceano -Necrosis Amt Medium (34-66%) Small (1-33%) -Necrotic [...] Recorded Date Recorded By Document 10/08/24 12:21 CALYA [id number] 10/08/24 12:25 JF Document 10/15/24 12:53 JF [id number] 10/15/24 12:55 JF 10/08/24 10/15/24 12:21 12:53 Wound Center Nurse [...] JF 0000 10/08/24 15:07 Document 10/15/24 13:07 [id number] 10/15/24 13:07 10/08/24 10/15/24 15:07 13:07 Wound [...] Cosigner Signature (if applicable): CC: ~ Signed [facility] Work Phone: 1(414) 367-670003-29-2025 Progress note [facility] [address] [place] [address] Progress Note - Wound Care 10/18/242022 MR#: [id number] Acct: [id number] Name: GAENSH RAZO Rep #:[id number] : 1935 88 From: Jaden MONAHAN PCP: Dr. Alberto Mustafa MD Status:[facility] Location: History of Present Illness Date of [...] Date Recorded By Document 10/08/24 11:57 MT [id number] 10/08/24 12:07 MT Document 10/15/24 12:16 KW [id number] 10/15/24 12:20 KW 10/08/24 10/15/24 11:57 12:16 - Today's Visit Information Type of service Initial Visit Follow-up Visit (Physician/STUDENT COUNSELLOR ) Arrival Mode Ambulatory, Ambulatory, Walker Walker [...] Recorded Date Recorded By Document 10/08/24 11:57 OK [id number] 10/08/24 12:07 OK Document 10/15/24 12:16 [id number] 10/15/24 12:20 KW 10/08/24 10/15/24 11:57 12:16 [...] Amt Medium (34-66%) Small (1-33%) -Granulation Quality Pale,Oceano Oceano -Necrosis Amt Medium (34-66%) Small (1-33%) -Necrotic [...] Recorded Date Recorded By Document 10/08/24 12:21 [id number] 10/08/24 12:25 Document 10/15/24 12:53 [id number] 10/15/24 12:55 10/08/24 10/15/24 12:21 12:53 Wound [...] 15:07 0000 10/08/24 15:07 Document 10/15/24 13:07 [id number] 10/15/24 13:07 10/08/24 10/15/24 15:07 13:07 Wound [...] Cosigner Signature (if applicable): CC: ~ Signed [facility]03-26-2025 Evaluation note* Diagnosis Onset Date Resolution Status [...] 11:52pm Cellulitis of left foot acute J [facility] 2024 11:52pm Fever acute January 01 11:52pm Hyperglycemia acute January 01, 2025 11:52pm Open wound of left foot acute J [facility] 2024 11:52pm Sepsis acute January 01 11:52pm Tachycardia acute January 01 11:52pm Toxic metabolic encephalopathy acute January 01, 2025 11:52pm 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 January 01, 2025 11:52pm MSSA bacteremia resolved December 11:52pm Osteomyelitis of left foot inactive January 01, 2025 11:52pm [facility] Work Phone: 1(780) 441-150303-26-2025 Evaluation note* Diagnosis Onset Date Resolution Status [...] left foot acute J une 2024 11:52pm Osteomyelitis of left foot acute January 01, 2025 11:52pm Sepsis acute January 01 11:52pm Tachycardia acute January 01 11:52pm Toxic metabolic encephalopathy acute January 01, 2025 11:52pm 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 January 01, 2025 11:52pm MSSA bacteremia resolved December 11:52pm Acute kidney injury acute January 30, 2025 9:28pm Atrial fibrillation with rap id ventricular response acute January 30, 2025 9:28pm Osteomyelitis of left foot acute January 30, 2025 9:28pm Sepsis acute January 30 9:28pm Urinary tract infection acute J jay 2024 9:28pm [facility] Work Phone: 1(862) 761-157503-20-2025 History and physical note Author Jaden Forman [facility] Note Date/Time October 09, 2024 3:0 9pm [facility] [address] [place] [address] H&P Exam - Wound Care 10/09/24 1419 MR#: [id number] Acct: [id number] Name: GANESH RAZO Rep #:[id number] : 1935 88 From: Jaden Sabillon PM [...] was seen by emergency room department at [facility] and evaluated and discharged. He states the wound has been present but does not know how long. He denies any trauma to the area. Denies constitutional symptoms. No other pedal complaints at this time. [facility] Medical History Agitation due to dementia [...] Recorded Date Recorded By Document 10/08/24 11:57 OK [id number] 10/08/24 12:07 OK 10/08/24 11:57 - Today's Visit Information Type [...] Recorded Date Recorded By Document 10/08/24 11:57 OK [id number] 10/08/24 12:07 OK 10/08/24 11:57 Wound Center Nurse 1 Left [...] Under -Granulation Amt Medium (34-66%) -Granulation Quality Pale,Oceano -Necrosis Amt Medium (34-66%) -Necrotic Tissue Type [...] Date Recorded By Document 10/08/24 12:21 CAYLA [id number] 10/08/24 12:25 CAYLA 10/08/24 12:21 Wound Center [...] 10/08/24 15:07 JF 0000 10/08/24 15:07 JF 10/08/24 15:07 Wound Care Center Nurse 3 [...] will continue weekly wound care here at [facility]. Patient was grateful for his care. He will continue to ambulate as tolerated with a walker. Patient will follow-up in 1 week 10/09/24 2762 <Electronically signed by Jaden Forman DPM> Cosigner Signature (if applicable): CC: ~ Signed [facility] Work Phone: 1(525) 342-325003-20-2025 History and physical note [facility] [address] [place] [address] H&P Exam - Wound Care 10/09/24 1419 MR#: [id number] Acct: [id number] Name: GANESH RAZO Rep #:[id number] : 1935 88 From: Jaden MONAHAN PCP: [...] was seen by emergency room department at [facility] and evaluated and discharged. He states the wound has been present but does not know how long. He denies any trauma to the area. Denies constitutional symptoms. No other pedal complaints at this time. [facility] Medical History Agitation due to dementia [...] Recorded Date Recorded By Document 10/08/24 11:57 OK [id number] 10/08/24 12:07 OK 10/08/24 11:57 - Today's Visit Information Type [...] Recorded Date Recorded By Document 10/08/24 11:57 OK [id number] 10/08/24 12:07 OK 10/08/24 11:57 Wound Center Nurse 1 Left [...] Under -Granulation Amt Medium (34-66%) -Granulation Quality Pale,Oceano -Necrosis Amt Medium (34-66%) -Necrotic Tissue Type [...] Recorded Date Recorded By Document 10/08/24 12:21 [id number] 10/08/24 12:25 10/08/24 12:21 Wound Center Nurse [...] andwill continue weekly wound care here at [facility]. Patient was grateful for his care. He will continue to ambulate as tolerated with a walker. 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 September 16, 2024 7:21pm Closed head injury inactive 2024 7:21pm Dementia inactive September 16, 2024 7:21pm Fall inactive September 16, 2024 7:21pm Hypothyroidism inactive August 242024 7:21pm Non-pressure chronic ulcer o f other part of left foot with fat layer exposed chronic October 15 12:15pm [facility] Work Phone: 1(186) 195-409902-25-2025 Evaluation note* Diagnosis Onset Date Resolution Status [...] layer exposed chronic December 03, 2024 1:15pm [facility] Work Phone: 1(265) 868-857802-25-2025 Evaluation note* Diagnosis Onset Date Resolution Status [...] of bone chronic December 31, 2024 11:00am [facility] Work Phone: 1(349) 675-680002-25-2025 Evaluation note* Diagnosis Onset Date Resolution Status [...] of left foot acute J 2024 11:52pm Tachycardia acute January 01 11:52pm Toxic metabolic encephalopathy acute January 01, 2025 11:52pm [facility] Work Phone: 1(952) 227-601202-25-2025 Evaluation note* Diagnosis Onset Date Resolution Status [...] 01, 2025 11:52pm Altered mental status acute Osvaldo 2024 11:52pm Cellulitis of left foot acute J [...] of bone chronic January 01, 2025 11:52pm [facility] Work Phone: Reason for referral (narrative)No reason for referral information availableWSamaritan [facility] Work Phone: Chief Complaint and Reason for Visit Chief Complaint Admit Date WORSENING DEMENTIA AND RECENT FALL Febru 2024 7:21pm WORSENING DEMENTIA AND RECENT FALL Febru 2024 4:02pm WORSENING DEMENTIA AND RECENT FALL Febru 2024 6:37pm WORSENING DEMENTIA AND RECENT FALL Febru 2024 2:47pm LABWORK September 22, 2024 5:00 am [facility]AIL LAB WORK September 24, 2024 5: 00am [...] 2:47pm LABWORK September 22, 2024 5:00 am [facility] LAB WORK September 24, 2024 5: 00am [...] 2:47pm LABWORK September 22, 2024 5:00 am [facility] LAB WORK September 24, 2024 5: 00am WOUND- LEFT FOOT October 15, 2024 12: 15pm WOUND- LEFT FOOT October 22, 2024 12:4 2pm LABWORK October 27, 2024 5:00 am [facility] LAB WORK November 05, 2024 5 :00am [...] 2:47pm LABWORK September 22, 2024 5:00 am [facility] LAB WORK September 24, 2024 5: 00am WOUND- LEFT FOOT October 15, 2024 12: 15pm WOUND- LEFT FOOT October 22, 2024 12:4 2pm LABWORK October 27, 2024 5:00 am [facility] LAB WORK November 05, 2024 5 :00am LABWORK November 26, 2024 5:00am WOUND- LEFT FOOT December 03, 2024 1:15p m Chief Complaint Admit Date WORSENING DEMENTIA AND RECENT FALL Febru 2024 7:21pm WORSENING DEMENTIA AND RECENT FALL Febru 2024 4:02pm WORSENING DEMENTIA AND RECENT FALL Febru 2024 6:37pm WORSENING DEMENTIA AND RECENT FALL Febru 2024 2:47pm LABWORK September 22, 2024 5:00 am [facility]AIL LAB WORK September 24, 2024 5: 00am WOUND- LEFT FOOT October 15, 2024 12: 15pm WOUND- LEFT FOOT October 22, 2024 12:4 2pm LABWORK October 27, 2024 5:00 am [facility] LAB WORK November 05, 2024 5 :00am [facility] LAB WORK November 24, 2024 5:00 am LABWORK November 26, 2024 5:00am WOUND- LEFT FOOT December 03, 2024 1:15p m [facility] LAB WORK December 16, 2024 4:0 0am [facility] LAB WORK December 17, 2024 5:0 0am [...] WORSENING DEMENTIA AND RECENT FALL Febru song 2025 2:47pm LABWORK September 22, 2024 5:00 am [facility] LAB WORK September 24, 2024 5: 00am WOUND- LEFT FOOT October 15, 2024 12: 15pm WOUND- LEFT FOOT October 22, 2024 12:4 2pm LABWORK October 27, 2024 5:00 am [facility] LAB WORK November 05, 2024 5 :00am [facility] LAB WORK November 24, 2024 5:00 am LABWORK November 26, 2024 5:00am WOUND- LEFT FOOT December 03, 2024 1:15p m [facility] LAB WORK December 16, 2024 4:0 0am [facility] LAB WORK December 17, 2024 5:0 0am [...] 2:47pm LABWORK September 22, 2024 5:00 am [facility] LAB WORK September 24, 2024 5: 00am WOUND- LEFT FOOT October 15, 2024 12: 15pm WOUND- LEFT FOOT October 22, 2024 12:4 2pm LABWORK October 27, 2024 5:00 am [facility]AIL LAB WORK November 05, 2024 5 :00am [facility] LAB WORK November 24, 2024 5:00 am LABWORK November 26, 2024 5:00am WOUND- LEFT FOOT December 03, 2024 1:15p m [facility] LAB WORK December 16, 2024 4:0 0am [facility] LAB WORK December 17, 2024 5:0 0am [...] 2:47pm LABWORK September 22, 2024 5:00 am [facility] LAB WORK September 24, 2024 5: 00am WOUND- LEFT FOOT October 15, 2024 12: 15pm WOUND- LEFT FOOT October 22, 2024 12:4 2pm LABWORK October 27, 2024 5:00 am [facility]AIL LAB WORK November 05, 2024 5 :00am [facility] LAB WORK November 24, 2024 5:00 am [...] 2:47pm LABWORK September 22, 2024 5:00 am [facility] LAB WORK September 24, 2024 5: 00am WOUND- LEFT FOOT October 15, 2024 12: 15pm WOUND- LEFT FOOT October 22, 2024 12:4 2pm LABWORK October 27, 2024 5:00 am [facility]AIL LAB WORK November 05, 2024 5 :00am JAIL LAB WORK November 24, 2024 5:00 am LABWORK November 26, 2024 5:00am WOUND- LEFT FOOT December 03, 2024 1:15p m [facility] LAB WORK December 16, 2024 4:0 0am [facility] LAB WORK December 17, 2024 5:0 0am [...] Date LABWORK September 22, 2024 5:00 am [facility] LAB WORK September 24, 2024 5: 00am WOUND- LEFT FOOT October 15, 2024 12: 15pm WOUND- LEFT FOOT October 22, 2024 12:4 2pm LABWORK October 27, 2024 5:00 am [facility]AIL LAB WORK November 05, 2024 5 :00am [facility]AIL LAB WORK November 24, 2024 5:00 am LABWORK November 26, 2024 5:00am WOUND- LEFT FOOT December 03, 2024 1:15p m [facility] LAB WORK December 16, 2024 4:0 0am [facility] LAB WORK December 17, 2024 5:0 0am [...] Osteomyelitis of left foot January 01 11:52pm Chief Complaint Admit Date WOUND- LEFT FOOT October 15, 2024 12: 15pm WOUND- LEFT FOOT October 22, 2024 12:4 2pm LABWORK October 27, 2024 5:00 am [facility]AIL LAB WORK November 05, 2024 5 :00am [facility]AIL LAB WORK November 24, 2024 5:00 am LABWORK November 26, 2024 5:00am WOUND- LEFT FOOT December 03, 2024 1:15p m [facility] LAB WORK December 16, 2024 4:0 0am [facility] LAB WORK December 17, 2024 5:0 0am [...] FOOT WOUND/ALTERED MS January 08, 2025 11:03am LAB WORK January 29, 2025 4:40 pm UROSEPSIS W/ NEW ONSET AFIB W/ RVR January 30, 2025 9:28pm Chief Complaint Admit Date WOUND- LEFT FOOT October 15, 2024 12: 15pm WOUND- LEFT FOOT October 22, 2024 12:4 2pm LABWORK October 27, 2024 5:00 am [facility]AIL LAB WORK November 05, 2024 5 :00am JAIL LAB WORK November 24, 2024 5:00 am LABWORK November 26, 2024 5:00am WOUND- LEFT FOOT December 03, 2024 1:15p m [facility]AIL LAB WORK December 16, 2024 4:0 0am JAIL LAB WORK December 17, 2024 5:0 0am [...] FOOT WOUND/ALTERED MS January 08, 2025 11:03am LAB WORK January 29, 2025 4:40 pm UROSEPSIS W/ NEW ONSET AFIB W/ RVR January 30, 2025 9:28pm UROSEPSIS W/ NEW ONSET AFIB W/ RVR January 31, 2025 3:16pm UROSEPSIS W/ NEW ONSET AFIB W/ RVR February 01, 2025 4:01pm UROSEPSIS W/ NEW ONSET AFIB W/ RVR February 02, 2025 6:04pm UROSEPSIS W/ NEW ONSET AFIB W/ RVR February 03, 2025 2:34pm UROSEPSIS W/ NEW ONSET AFIB W/ RVR February 04, 2025 2:47pm UROSEPSIS W/ NEW ONSET AFIB W/ RVR February 05, 2025 3:26pm UROSEPSIS W/ NEW ONSET AFIB W/ RVR February 06, 2025 10:18am Reason for Visit Admit Date Non-pressure chronic [...] MSSA bacteremia January 01, 2025 11:5 2pm Acute kidney injury January 30, 2025 9:28 pm Atrial fibrillation with rapid ventricul ar response January 30, 2025 9:28pm Osteomyelitis of left foot January 30 9:28pm Sepsis January 30, 2025 9:28 pm Urinary tract infection January 30, 2025 9:28pm Advance Directives No Advanced Directives Records Found Advance Directive Response Recorded Date/ Time Living Will No September 16 9:52pm Do you have a Healthcare Power of Investigative Agent? No September 16, 2024 9:52pm Advance Directive Response Recorded Date/ Time Living Will No September 16, 025 9:52pm Do you have a Healthcare Power of Investigative Agent? No September 16, 2024 9:52pm Do you have a Healthcare Power of Investigative Agent? Yes January 01, 2025 3:16pm Advance Directive Response Recorded Date/ Time Living Will No September 16, 025 9:52pm Do you have a Healthcare Power of Investigative Agent? No September 16, 2024 9:52pm Do you have a Healthcare Power of Investigative Agent? Yes January 02, 2025 3:40am Advance Directive Response Recorded Date/ Time Do you have a Healthcare Power of Investigative Agent? Yes January 02, 2025 3:40am Advance Directive Response Recorded Date/ Time Do you have a Healthcare Power of Investigative Agent? No January 30, 2025 6:10pm Do you have a Healthcare Power of Investigative Agent? Yes January 02, 2025 3:40am Summary Purpose [...] , DO Admit Provider Active Start: September 16, 2024 End: September 19, 2024 Dr. Altaf Meeks , DO Other Provider Active Start: September 16, 2024 End: September 19, 2024 Dr. Demetrius Nash , DO Attending Provider Active Start: September 16, [...] , Emergency Provider Active S tart: September 19, 2024 Dr. Altaf Meeks DO Admit Provider Active Start: September 19, 2024 Dr. Altaf Meeks DO Other Provider Active Start: September 19, 2024 Dr. Demetrius Nash DO Attending Provider Active Start: September 19, 2024 Dr. Demetrius Nash DO Other Provider Active S tart: September [...] Status: Inactive Member Role Status Dates Dr. Michael Meeks [...] Start : January 03, 2025 Dr. Mei Mckeznie DO Other Provider Active Start : January [...] Start: January 04, 2025 Dr. Booker Rodríguez , DO Emergency Provider Active Start: January 04, 2025 Dr. Mei Mckenzie , DO Admit Provider Active Start : January [...] St art: January 08, 2025 Team Status: Inactive Member Role/Relationship Status [...] Status: Active Member Role/Relationship Status Dates Dr. Micahel Meeks DO Primary Care Provider Active Start: [...] Status: Active Member Role/Relationship Status Dates Dr. Mihcael Meeks DO Primary Care Provider Active Start: January 04, 2025 Dr. Booker Rodríguez DO Emergency Provider Active Start: January 04, 2025 Dr. Mei Mckenzie , DO Admit Provider Active Start : January [...] DO Primary Care Provider Active Start: January 29, 2025 Philip HUNT Attending Provider Active Start : January 29, 2025 Team Status: Active Member Role/Relationship Status Dates Dr. Michael Meeks , DO Primary Care Provider Active Start: January 30, 2025 Dr. Booker Rodríguez , DO Emergency Provider Active Start: January 30, 2025 Dr. Alex Espino , DO Admit Provider Active Start: January 30, 2025 Dr. Alex Espino , DO Attending Provider Active Start: January 30, 2025 Team Status: Inactive Member Role/Relationship Status Dates Dr. Michael Meeks , Primary Care Provider Active Start: January 30, 2025 End: February 06, 2025 Dr. Booker Rodríguez , DO Emergency Provider Active Start: January 30, 2025 End: February 06, 2025 Dr. Alex Espino , DO Admit Provider Active Start: January 30, 2025 End: February 06, 2025 Dr. Alex Espino , DO Other Provider Active Start: January 30, 2025 End: February 06, 2025 Dr. Jane Wall MD Other Provider Active Start: January 30, 2025 End: February 06, 2025 Dr. Dusty Abad MD Attending Provider Active Start: January 30, 2025 End: February 06, 2025 Dr. Demetrius Nash , DO Other Provider Active S tart: January 30, 2025 End: February 06, 2025 Dr. Juanjo Arias MD Other Provider Active Start: January 30, 2025 End: February 06, 2025 Team Status: Active Member Role/Relationship Status Dates Dr. Michael Meeks , Primary Care Provider Active Start: January 31, 2025 Dr. Booker Rodríguez , DO Emergency Provider Active Start: January 31, 2025 Dr. Alex Espino , DO Admit Provider Active Start: January 31, 2025 Dr. Alex Espino , DO Other Provider Active Start: January 31, 2025 Dr. Demetrius Nash , DO Attending Provider Active Start: January 31, 2025 Dr. Demetrius Nash , DO Other Provider Active S tart: January 31, 2025 Team Status: Active Member Role/Relationship Status Dates Dr. Michael Meeks DO Primary Care Provider Active Start: February 01, 2025 Dr. Booker Rodríguez , DO Emergency Provider Active Start: February 01, 2025 Dr. Alex Espino , DO Admit Provider Active Start: February 01, 2025 Dr. Alex Espino , DO Other Provider Active Start: February 01, 2025 Dr. Demetrius Nash , DO Attending Provider Active Start: February 01, 2025 Dr. Demetrius Nash , DO Other Provider Active S tart: February 01, 2025 Team Status: Active Member Role/Relationship Status Dates Dr. Michael Meeks , DO Primary Care Provider Active Start: February 02, 2025 Dr. Booker Rodríguez , DO Emergency Provider Active Start: February 02, 2025 Dr. Alex Espino , DO Admit Provider Active Start: February 02, 2025 Dr. Alex Espino , DO Other Provider Active Start: February 02, 2025 Dr. Demetrius Nash , DO Attending Provider Active Start: February 02, 2025 Dr. Demetrius Nash , DO Other Provider Active S tart: February 02, 2025 Dr. Jane Wall MD Other Provider Active Start: February 02, 2025 Team Status: Active Member Role/Relationship Status Dates Dr. Michael Meeks , DO Primary Care Provider Active Start: February 03, 2025 Dr. Booker Rodríguez , DO Emergency Provider Active Start: February 03, 2025 Dr. Alex Espino , DO Admit Provider Active Start: February 03, 2025 Dr. Alex Espino , DO Other Provider Active Start: February 03, 2025 Dr. Demetrius Nash , DO Attending Provider Active Start: February 03, 2025 Dr. Demetrius Nash , DO Other Provider Active S tart: February 03, 2025 Dr. Jane Wall MD Other Provider Active Start: February 03, 2025 Team Status: Active Member Role/Relationship Status Dates Dr. Michael Meeks , DO Primary Care Provider Active Start: February 04, 2025 Dr. Booker Rodríguez , DO Emergency Provider Active Start: February 04, 2025 Dr. Alex Espino , DO Admit Provider Active Start: February 04, 2025 Dr. Alex Espino , DO Other Provider Active Start: February 04, 2025 Dr. Jane Wall MD Other Provider Active Start: February 04, 2025 Dr. Dusty Abad MD Attending Provider Active Start: February 04, 2025 Dr. Dusty Abad MD Other Provider Active Sta rt: February 04, 2025 Dr. Demetrius Nash DO Other Provider Active S tart: February 04, 2025 Dr. Juanjo Arias MD Other Provider Active Start: February 04, 2025 Team Status: Active Member Role/Relationship Status Dates Dr. Michael Meeks DO Primary Care Provider Active Start: February 05, 2025 Dr. Bookre Rodríguez DO Emergency Provider Active Start: February 05, 2025 Dr. Alex Espino DO Admit Provider Active Start: February 05, 2025 Dr. Alex Espino DO Other Provider Active Start: February 05, 2025 Dr. Jane Wall MD Other Provider Active Start: February 05, 2025 Dr. Dusty Abad MD Attending Provider Active Start: February 05, 2025 Dr. Dusty Abad MD Other Provider Active Sta rt: February 05, 2025 Dr. Demetrius Nash DO Other Provider Active S tart: February 05, 2025 Dr. Juanjo Arias MD Other Provider Active Start: February 05, 2025 Team Status: Active Member Role/Relationship Status Dates Dr. Michael Meeks DO Primary Care Provider Active Start: February 06, 2025 Dr. Booker Rodríguez DO Emergency Provider Active Start: February 06, 2025 Dr. Alex Espino DO Admit Provider Active Start: February 06, 2025 Dr. Alex Espino DO Other Provider Active Start: February 06, 2025 Dr. Jane Wall MD Other Provider Active Start: February 06, 2025 Dr. Dusty Abad MD Attending Provider Active Start: February 06, 2025 Dr. Dusty Abad MD Other Provider Active Sta rt: February 06, 2025 Dr. Demetrius Nash DO Other Provider Active S tart: February 06, 2025 Dr. Juanjo Arias MD Other Provider Active Start: February 06, 2025 (unrecognized sect ion and content) No Status Records Found INFORMATION SOURCE (unrecogn ized section and content) DATE CREATED AUTHOR 02/06/2025 [facility] FOR RECORDS PERTAINING TO PATIENTS WHO ARE [...] BE BASED ON THE PRIMARY CLINICAL RECORDS. [employer] [facility]. provides no warranty or guarantee of the accuracy or completeness of information in this document.
[2025-02-07 20:51] LABS: AST(SGOT) 23 U/L (<=37); Alanine Aminotransfer ALT/SGPT 11 U/L (<=46); Albumin, Serum 2.9 g/dL (3.4-4.8); Alkaline Phosphatase 139 U/L (40-129); Anion Gap 13 (5-15); BUN 44 mg/dL (4-19); BUN/Creat Ratio 8.9 RATIO (10-20); Calcium,Total 8.6 mg/dL (7.6-11.0); Carbon Dioxide 25.0 mmol/L (21.0-32.0); Chloride 101 mmol/L (98-108); Estimated Creatinine Clearance 13.04 ml/min (50-250); Globulin 3.5 g/dL (2.2-4.2); Glucose 170 mg/dL (70-99); Lipase 13 U/L (13-75); Potassium 3.8 mmol/L (3.3-5.1); Pro- Brain NATRIURETIC PEPTIDE 12341 pg/mL (<=1800)
--- NOTE | 2025-02-07 20:54 | EX.ED.DYSGE1 ---
HPI History of Present Illness Chief Complaint: Alt LOC Narrative Narrative: History of present illness unobtainable from the patient secondary to his underlying dementia and altered mental status therefore acute care caveat applies. According to staff patient was brought in by EMS from [facility] for concern for abnormal labs and volume overload state. According the record the patient does have a history of dementia, hypothyroidism, atrial fibrillation with RVR on Eliquis, hypoglycemia. [facility] Medical History Osteomyelitis of left foot Agitation due to dementia Closed head injury Fall Dementia Hypothyroidism Home Medications ?Medication ?Instructions ?Recorded ?Last Taken ?Type levothyroxine 150 mcg tablet 150 mcg PO DAILY 01/01/25 Unknown History insulin lispro 100 unit/mL See Protocol subcut TIDAC #0 mL 01/08/25 Unknown Rx subcutaneous pen (Humalog KwikPen (U-100) Insulin) sennosides 8.6 mg-docusate sodium 2 tab PO BID #0 tabs 01/08/25 Unknown Rx 50 mg tablet (Stimulant Laxative Plus) acetaminophen 325 mg tablet 650 mg (2 x 325 mg) PO Q6H PRN PRN 02/06/25 Unknown Rx Pain 1-10 Or Fever>100.7 #0 tabs amlodipine 10 mg tablet 10 mg PO DAILY #0 tabs 02/06/25 Unknown Rx apixaban 5 mg tablet (Eliquis) 2.5 mg (1/2 x 5 mg) PO BID #0 tabs 02/06/25 Unknown Rx carvedilol 12.5 mg tablet 12.5 mg PO BIDCM #0 tabs 02/06/25 Unknown Rx linezolid 600 mg tablet 600 mg PO BID #0 tabs 02/06/25 Unknown Rx quetiapine 25 mg tablet 25 mg PO QHS #0 tabs 02/06/25 Unknown Rx Allergy/AdvReac Type Severity Reaction Status Date / Time shellfish derived Allergy unknown Verified 02/07/25 19:06 Social History Smoking Status: Never smoker ROS ROS ED ROS Narrative Review of systems unobtainable from the patient secondary to his dementia therefore acute care caveat applies EXAM Physical Exam Narrative Exam Narrative: General: Patient is lying in bed rest comfortably did not appear to be in acute distress Head: Atraumatic, normocephalic Eyes: PERRL bilaterally, EOMI bilateral, no conjunctival injection noted Neck: Soft, supple, trachea midline Cardiovascular: Regular rate and rhythm Respiratory: Clear to auscultation bilaterally Abdomen: Soft, nondistended Extremities: +4/5 strength noted in the bilateral upper and lower extremities, no pedal edema on exam Neurological: Patient at baseline according to staff Skin: Warm, dry, intact no rashes or lesions noted Const Vital Signs: 02/07/25 18:58 02/07/25 19:06 02/07/25 20:06 Temperature 98.3 F 98.3 F 98.2 F Temperature Source Oral Oral Oral Pulse Rate 86 90 93 Respiratory Rate 14 18 16 Blood Pressure 152/93 H 152/93 H 154/106 H Blood Pressure Mean 112 112 122 Pulse Ox 99 97 96 Oxygen Delivery Method Room Air Nasal Cannula Nasal Cannula Oxygen Flow Rate (L/min) 4 4 2 02/07/25 21:00 02/07/25 21:00 02/07/25 22:00 Temperature 98.2 F Temperature Source Oral Pulse Rate 99 79 Respiratory Rate 14 13 Blood Pressure 117/102 H 117/102 H 133/76 H Blood Pressure Mean 107 107 95 Pulse Ox 100 99 Oxygen Delivery Method Nasal Cannula Oxygen Flow Rate (L/min) 4 MDM MDM MDM Narrative Medical decision making narrative: Patient is a 89-year-old male who was sent in for abnormal labs. On the differential diagnosis includes but not limited to hyperglycemia, electrolyte abnormality, CHF. Once workup is obtained reviewed he will be reevaluated. Per nursing staff they called the facility and they noted that they sent him back in as he was just discharged here from the hospital with a concern for having too much fluid on his lungs as well as having an abnormal kidney function. We did attempt to reach out to daughter we left a message in regards to call us back in regards to CODE STATUS discussion. Patient CBC was reviewed and showed a leukocytosis of 14,000, hemoglobin is 9.7, platelet count 262. Patient sodium was 138, potassium normal at 3.8, creatinine was 4.93 which compared to previous blood draws when he was here in the hospital is consistent. Patient's AST and ALT are 23 and 11 respectively, proBNP 12,341 patient lipase was noted to be 13. Patient will be given a dose of IV Lasix. Patient's chest x-ray was reviewed by myself by radiology which showed stable appearance of chest compared to radiographs on 02/05/2025 with bilateral airspace and interstitial opacities and bilateral pleural effusions. Patient's hospital records were reviewed from nephrology and per their note Dr. Wall states that the patient is not a candidate for dialysis and they recommend if renal function worsens to consult hospice. Patient's paperwork that was sent from the extended-care facility had a DNR comfort care form signed this was earlier this year by Dr. Michael Meeks patient's primary care physician. Staff reached out to the POA multiple times without any answer. Given the record review and his CODE STATUS we will discharge back to his extended care facility. Lab Data Labs: Laboratory Results - last 24 hr 02/07/25 19:10 WBC 14.3 H RBC 3.10 L Hgb 9.7 L Hct 29.0 L MCV 93.5 MCH 31.3 MCHC 33.4 RDW Std Deviation 44.7 H RDW Coeff of Gary 13.3 Plt Count 262 MPV 9.6 Immature Gran % (Auto) 4.700 H Neut % (Auto) 82.4 H Lymph % (Auto) 5.9 L Jack % (Auto) 5.7 Eos % (Auto) 0.8 Baso % (Auto) 0.5 Absolute Neuts (auto) 11.8 H Absolute Lymphs (auto) 0.85 Nucleated RBC % 0 Sodium 138 Potassium 3.8 Chloride 101 Carbon Dioxide 25.0 Anion Gap 13 BUN 44 H Creatinine 4.93 H Estim Creat Clear Calc 13.04 L Est GFR (MDRD) Non-Af 11 L BUN/Creatinine Ratio 8.9 L Glucose 170 H Calcium 8.6 Total Bilirubin 0.37 AST 23 ALT 11 Alkaline Phosphatase 139 [place] [address] H Total Protein 6.4 Albumin 2.9 L Globulin 3.5 Albumin/Globulin Ratio 0.8 L Lipase 13 Radiography Diagnostic Testing: Clinical Impression(s) from Imaging Studies Chest X-Ray 02/07/25 20:55 IMPRESSION: Stable appearance of the chest compared to radiographs on 02/05/2025, with bilateral airspace and interstitial opacities and bilateral pleural effusions. Reading Location: [id number] Discharge Plan Triage Chief Complaint: Alt LOC ED Provider: Gabino Sibley Dx/Rx/DC Orders Clinical Impression: Dementia, History of atrial fibrillation, Hypothyroidism, Acute renal failure Prescriptions: No Action acetaminophen 325 mg Tablet 650 mg PO Q6H PRN PRN (Reason: Pain 1-10 Or Fever>100.7) Qty: 0 0RF quetiapine 25 mg Tablet 25 mg PO QHS Qty: 0 0RF carvedilol 12.5 mg Tablet 12.5 mg PO BIDCM Qty: 0 0RF linezolid 600 mg Tablet 600 mg PO BID Qty: 0 0RF Rx Instructions: Stop date 02/16/2025 amlodipine 10 mg Tablet 10 mg PO DAILY Qty: 0 0RF Rx Instructions: Hold for SBP less than 130 mmHg Eliquis 5 mg Tablet 2.5 mg PO BID Qty: 0 0RF levothyroxine 150 mcg tablet 150 mcg PO DAILY insulin lispro [Humalog KwikPen Insulin] 100 unit/mL Insulin Pen See Protocol subcut TIDAC Qty: 0 0RF Protocol: 4. 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 or septic HIGH MEDIUM DOSING ALGORITHM sennosides-docusate sodium [Stimulant Laxative Plus] 8.6-50 mg Tablet 2 tab PO BID Qty: 0 0RF Primary Care Provider: Michael Meeks Referrals: Michael Meeks DO [Primary Care Provider] - Activity Restrictions/Additional Instructions: Per hospital records nephrology states that the patient is a poor dialysis candidate and recommended hospice consult if things were to worsen. We attempted multiple times to get a hold of the power of patent prosecution attorney and were unable to do so given that he just had a comfort care CODE STATUS form signed by his primary care physician in December we will abide by this. Print Language: Portuguese Disposition Disposition: Home, Self Care
--- NOTE | 2025-02-07 20:55 | RAD_ITS ---
PROCEDURE: CHEST 1 VIEW (PORTABLE) 02/07/2025 REASON FOR EXAM: SOB TECHNIQUE: Frontal view of the chest. COMPARISON: Chest radiograph on 02/05/2025 FINDINGS: Hardware: None Heart: Cardiac and mediastinal contours are stable. Lungs: Patchy opacity throughout both lungs, not significantly changed from 02/05/2025. Bilateral pleural effusions. Nodular opacity in the right upper lung zone measuring 5 mm is again unchanged. Bones: Unchanged RAD/Chest 1 View (Portable) IMPRESSION: Stable appearance of the chest compared to radiographs on 02/05/2025, with bila teral airspace and interstitial opacities and bilateral pleural effusions. Reading Location: [id number]
[2025-02-07 21:25] LABS: Hematocrit 29.0 % (40-54); Hemoglobin 9.7 g/dL (13.0-16.5); Immature Granulocytes Count 0.670 X10^3/uL (0.0-0.0); Mean Corp Hgb Conc 33.4 g/dL (32-36); Mean Corpuscular Volume 93.5 fL (80-94); Mean Platelet Vol. 9.6 fl (6.2-12.0); NRBC Flagged by Analyzer 0 % (0-5); Platelet Count 262 K/mm3 (150-450); RBC Distribution Width CV 13.3 % (11.6-14.6); RBC Distribution Width SD 44.7 fl (35.1-43.9); Red Blood Count 3.10 M/mm3 (4.6-6.2); White Blood Count 14.3 K/mm3 (4.4-11.0)
== END 2025-02-08 | disposition home or self-care (01) ==
PROVIDERS: Emergency Provider Emergency Medicine; Visit Provider Emergency Medicine
DX: N17.9 Acute kidney failure, unspecified (principal); F03.90 Unspecified dementia, unspecified severity, without behavioral disturbance, psychotic disturbance, mood disturbance, and anxiety; I48.91 Unspecified atrial fibrillation; Z79.4 Long term (current) use of insulin; R06.02 Shortness of breath; E03.9 Hypothyroidism, unspecified; E16.2 Hypoglycemia, unspecified; Z79.01 Long term (current) use of anticoagulants; Z79.899 Other long term (current) drug therapy; Z79.890 Hormone replacement therapy
CPT/HCPCS: 36592; 71045; 80053; 83690; 83880; 85025; 96374; 96375; 99285; A4216; J1938; J2405